=== PATIENT | male | born 1990 | race Caucasian/White ===

== ENCOUNTER 2024-04-04 16:30 | Emergency (ER) | payer BC, SELFPAY ==
[2024-04-04 16:33] VITALS: BP 102/61; PULSE 82; RESP 16; TEMP 36.7; O2SAT 97
--- NOTE | 2024-04-04 17:48 | ED.WOUNDLAC ---
HPI - Wound/Laceration General Chief Complaint: Wound/Laceration Stated Complaint: laceration right 2nd finger Time Seen by Provider: 04/04/24 16:57 Source: patient Mode of arrival: ambulatory Limitations: no limitations History of Present Illness HPI narrative: This is a 33-year-old male who presents to the ED for chief complaint of index finger laceration on the right hand. Reports that he was grabbing something in the work bench and thinks he may have grab the saw blade on accident. He does not think that his tetanus is up today. States it bled a lot at the time but bleeding has now resolved. Denies any further sites of pain or injury. Denies numbness, weakness or difficulty with range of motion. Related Data Allergies Allergy/AdvReac Type Severity Reaction Status Date / Time metronidazole Allergy Unknown UNKNOWN Verified 04/04/24 16:31 Review of Systems Review of Systems: All systems as dictated in [facility] Family History Family History (Updated 08/04/16 @ 11:41 by DOCTOR UNKNOWN) Mother Family history of schizophrenia Patient's mother is in good health Father Patient's father is in good health Sibling Patient's sister is in good health Patient's brother is in good health Social History Social History Smoking status: Never smoker Alcohol intake: current Exam Narrative: GENERAL: Well-appearing, well-nourished, and in no acute distress. HEAD: Normocephalic, atraumatic. EYES: PERRLA and EOMI. ENT: Nares clear, no rhinorrhea or epistaxis. Mucous membranes moist. Oropharynx without tonsillar hypertrophy exudate or other lesions. NECK: Supple. No adenopathy or masses. CHEST: No respiratory distress. Clear to auscultation. No wheezes rales or rhonchi HEART: Regular rate and rhythm. No murmur heard. Normal peripheral pulses. ABDOMEN: Soft, nontender, nondistended, normal active bowel sounds. MSK: Normal range of motion. No edema. SKIN: 1 cm laceration noted to the ventral aspect of the right index finger. Bleeding controlled. Deep structures intact. Range of motion intact. NEURO: Alert and oriented x4. No focal deficits. PSYCH: Normal mood and affect. Course Vital Signs Vital signs: Vital Signs Temperature 98.0 F 04/04/24 16:33 Pulse Rate 82 04/04/24 16:33 Respiratory Rate 16 04/04/24 16:33 Blood Pressure 102/61 04/04/24 16:33 Pulse Oximetry 97 04/04/24 16:33 Oxygen Delivery Room Air 04/04/24 16:33 Temperature 98.0 F 04/04/24 16:33 Pulse Rate 82 04/04/24 16:33 Respiratory Rate 16 04/04/24 16:33 Blood Pressure 102/61 04/04/24 16:33 Pulse Oximetry 97 04/04/24 16:33 Oxygen Delivery Room Air 04/04/24 16:33 Procedures Laceration Laceration 1: Date: 04/04/24 Time: 18:02 Site: hand Side (If applicable): right Size (cm): 1 Description: linear Depth: simple, single layer Local Anesthetic: none Pre-repair: wound explored, irrigated extensively and deep structures intact ====== Skin Level ====== Skin layer closed with: dermabond and steri strips ====== Subcutaneous Layer ====== ====== Muscle Layer ====== ====== Tendon Layer ====== MDM - Wound/Laceration MDM Narrative Medical decision making narrative: This is a 33-year-old male who presents to the ED for chief complaint of laceration injury to the right index finger. Vitals are normal. Exam shows well approximated, superficial 1 cm laceration to the right index finger. It was well cleansed and irrigated here in the department. Closed primarily with Steri-Strips and Dermabond. Tdap updated. Laceration instructions given. Pt will be discharged in stable condition. Return precautions given and supportive measures discussed. Pt is understanding and agreeable with plan for discharge and follow-up with PCP. Discharge Plan Discharge Clinical Impression: Laceration Patient Disposi
[2024-04-04] MEDS: TETANUS,DIPHTHERIA,AC PERTUSSIS ADULT (0.5 ML) BOOSTRIX IM (18:05)
== END 2024-04-04 18:15 | disposition home or self-care (01) ==
PROVIDERS: Emergency Provider Physician Assistant; PCP Student in an Organized Health Care Education/Training Program
DX: S61.210A Laceration without foreign body of right index finger without damage to nail, initial encounter (principal); Z23 Encounter for immunization; W27.0XXA Contact with workbench tool, initial encounter
CPT/HCPCS: 12001; 90471; 90715; 99282

== ENCOUNTER 2024-07-02 10:41 | Emergency (ER) | payer BC, SELFPAY ==
--- NOTE | ~2024-07-02 | XR_ITS ---
EXAMINATION: XR wrist LT min 3V DATE: 07/02/2024 12:52 INDICATION: Saw laceration to the posterior distal left forearm TECHNIQUE: Posteroanterior, oblique, and lateral views of the left wrist were obtained. COMPARISON: none FINDINGS: Alignment is normal. No fracture. Joint spaces are normal. Soft tissues are unremarkable. IMPRESSION: 1. No osseous abnormality. Reviewed, dictated and finalized at location A. NT SUCCESS MANAGER IMPRESSION: 1. No osseous abnormality.
[2024-07-02 10:48] VITALS: BP 134/73; PULSE 66; RESP 16; TEMP 36.6; O2SAT 99
--- NOTE | 2024-07-02 13:32 | ED_ITS ---
HPI - Wound/Laceration General Chief Complaint: Wound/Laceration Stated Complaint: laceration to left wrist Time Seen by Provider: 07/02/24 12:27 Source: patient Mode of arrival: ambulatory Limitations: no limitations History of Present Illness HPI narrative: Patient is a 33 y/o male who presents to the ED with c/o laceration to his L wrist. Patient reports he was using a miter saw to cut try wooden trim pieces when he accidentally cut his L dorsal distal forearm. Bleeding controlled at the time of my evaluation. denies any other injuries. Denies numbness. Is able to move hands and fingers. Tetanus up-to-date. Related Data Allergies Allergy/AdvReac Type Severity Reaction Status Date / Time metronidazole Allergy Unknown UNKNOWN Verified 07/02/24 10:41 Review of Systems Review of Systems: All systems reviewed & are unremarkable except as noted in HPI. All systems reviewed & are unremarkable except as noted in HPI and below PMFSH Family History Family History Mother Family history of schizophrenia Patient's mother is in good health Father Patient's father is in good health Sibling Patient's sister is in good health Patient's brother is in good health Social History Social History Smoking status: Never smoker Alcohol intake: current Exam Narrative: GENERAL: Well appearing, obese with BMI of 30.4, non-toxic, in no acute dis tress. HEAD: Normocephalic, atraumatic. RESPIRATORY: Airway patent, respirations nonlabored. CARDIOVASCULAR: Regular rate and rhythm without murmurs, rubs, or gallops. Radial pulses intact. MUSCULOSKELETAL: Moves all extremities. No gross deformities. Full ROM of L wrist/fingers. Sensation intact. Capillary refill intact throughout fingers. 2.5cm linear laceration of dorsal distal forearm, edges are somewhat jagged but approximate well. Minimal active bleeding. No obvious tendon or ligament involvement or injury. SKIN: Warm, dry, normal color. NEURO: A&O X3. Speech clear. PSYCHIATRIC: Appropriate mood and affect. Normal interaction. Course Vital Signs Vital signs: Vital Signs Temperature 97.8 F 07/02/24 10:48 Pulse Rate 66 07/02/24 10:48 Respiratory Rate 16 07/02/24 10:48 Blood Pressure 134/73 07/02/24 10:48 Pulse Oximetry 99 07/02/24 10:48 Oxygen Delivery Room Air 07/02/24 10:48 Temperature 97.8 F 07/02/24 10:48 Pulse Rate 86 07/02/24 13:45 Respiratory Rate 15 07/02/24 13:45 Blood Pressure 129/78 07/02/24 13:45 Pulse Oximetry 98 07/02/24 13:45 Oxygen Delivery Room Air 07/02/24 10:48 Procedures Laceration Laceration 1: Date: 07/02/24 Time: 13:20 Site: upper extremity (wrist) Side (If applicable): left Size (cm): 2.5 Description: linear Depth: simple, single layer Local Anesthetic: lidocaine 1% Amount of anesthesia used (mL): 6 Pre-repair: wound explored and irrigated ====== Skin Level ====== Skin layer closed with: nylon Size (cm): 4-0 Number of sutures: 5 Technique: simple, interrupted ====== Subcutaneous Layer ====== ====== Muscle Layer ====== ====== Tendon Layer ====== MDM - Wound/Laceration MDM Narrative Medical decision making narrative: X-ray without evidence of foreign body. Laceration irrigated and repaired without complications. Tetanus up-to-date. Patient given wound care instructions and reasons to return. Discharged in stable condition. Medical Records Attestation: I reviewed the patient's medical records. Imaging Data Attestation: I personally reviewed and interpreted this imaging study as follows: Radiologist's impression: ITS Impressions Wrist X-Ray 07/02/24 12:57 IMPRESSION: 1. No osseous abnormality. Discharge Plan Discharge Clinical Impression: Laceration of left wrist Qualifiers: Encounter type: initial encounter Qualified Code(s): S61.512A - Laceration without foreign body of left wrist, initial encounter Patient Disposition: Home, Self-Care Condition: Stable Instructions: Antibiotic Form, Care For Your Stitches (ED), Laceration (ED) Additional Instructions: Return to the ED or visit an urgent care or your PCP for follow-up and wound check/suture removal in 10 to 14 days. Keep the wound dry for 24 hours. You may remove the bandage after 24 hours and wash with simple soap and water, but do not scrub. Return to the ED if you experience uncontrolled bleeding, fever, chills, pus-like drainage, or redness/swelling/warmth surrounding the wound, as these could be signs of an infection. Patient Language: Azerbaijani Follow-up/Referrals: Izabella,DO Lanre [Primary Care Provider] - Time of Disposition: 13:33
[2024-07-02 13:45] VITALS: BP 129/78; PULSE 86; RESP 15; O2SAT 98
--- OUTSIDE RECORDS SUMMARY | 2024-07-09 05:16 | XMS_ITS | Encounter Summary ---
Author Organization [facility] Address [address] [place] [address]. [place], [place] [id number] [place] [id number] Care Team Providers Care Weight Reduction Specialist Name Role Phone Lanre Parekh DO Primary Care Provider + Encounter Details Date Type Department Care Team (Latest Contact Info) Description 07/01/2024 Travel Social History Tobacco Use Types Packs/Day Years Used Date Smoking Tobacco: Never Passive Smoke Exposure: Never Smokeless Tobacco: Never Alcohol Use Standard Drinks/Week Comments Yes 11.7 (1 standard drink = 0.6 oz pure alcohol) glass of wine nightly AUDIT-C Answer Date Recorded Frequency of Alcohol Consumption Monthly or less 07/05/2018 Average Number of Drinks Not on file 019 Frequency of Binge Drinking Not on file 09/2018 PHQ-2 Answer Date Recorded Patient Health Questionnaire-2 Score 2 09/26/2023 Sex and Gender Information Value Date Recorded Sex Assigned at Male 07/01/2024 9:54 AM HEALTHCARE ADMINISTRATOR Legal Sex Male 8:28 AM HEALTHCARE ADMINISTRATOR Gender Identity Male 07/01/2024 9:54 AM HEALTHCARE ADMINISTRATOR Sexual Orientation Not on file documented as of this encounter Plan of Treatment Not on file documented as of this encounter Visit Diagnoses Not on filedocumented in this encounter Additional Health Concerns Infection Onset Date Last Indicated Resolved Time COVID-19 Rule Out 07/01/2024 07/01/2024 07/01/2024 10:33 AM HEALTHCARE ADMINISTRATOR COVID-19 Rule Out 07/01/2024 07/01/2024 07/02/2024 4:06 PM HEALTHCARE ADMINISTRATOR Assessment Noted Time PHQ-9 Depression Total Score: 1 01/26/20 21 11:17 AM CDT documented as of this encounter Care Teams Weight Reduction Specialist Relationship Specialty Start Date End Date Lanre Parekh DO [address] [place] [id number] PCP - General FAMILY PRACTICE 09/07/22 documented as of this encounter
--- OUTSIDE RECORDS SUMMARY | 2024-07-09 05:16 | XMS_ITS | Encounter Summary ---
Author Organization [facility] Address [address] [place] [address]. 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 Name Role Phone Lanre Parekh DO Primary Care Provider + Reason for Visit * Reason Comments Physical Encounter Details Date Type Department Care Team (Late st Contact Info) Description 06/16/2024 2:00 PM ORDER BOOKER Office Visit [facility] Family [facility] Internal Medicine [facility] [address] [place] [address] Lanre Parekh DO [facility] [place] [address] Physical Social History Tobacco Use Types Packs/Day Years [...] Sex Assigned at Male 07/01/2024 9:54 AM ORDER BOOKER Legal Sex Male 8:28 AM ORDER BOOKER Gender Identity Male 07/01/2024 9:54 AM ORDER BOOKER Sexual Orientation Not on file documented as of this encounter Last Filed Vital Signs Vital Sign Reading Time Taken Comments Blood Pressure 122/78 06/16/2024 2:10 PM ORDER BOOKER Pulse 81 06/16/2024 2:10 PM ORDER BOOKER Temperature 37.2 ??C (98.9 ??F) 06/16/2024 2:10 PM CS T Respiratory Rate 18 06/16/2024 2:10 PM ORDER BOOKER Oxygen Saturation 98% 06/16/2024 2:10 PM ORDER BOOKER Inhaled Oxygen Concentration - - Weight 89.2 kg (196 lb 11.2 oz) 06/16/2024 2:10 PM ORDER BOOKER Height 172.7 cm (5' 8 ) 06/16/2024 2:10 PM ORDER BOOKER Body Mass Index 29.91 06/16/2024 2:10 PM ORDER BOOKER documented in this encounter Progress Notes * Lanre Soni Parekh, DO - 06/16/2024 2:00 PM CST Images from the original note were not included. GENERAL OFFICE VISIT Encounter Date: 06/16/2024 Chief Complaint: 33-year-old male presents for Physical HPI: The patient is being seen for a health maintenance evaluation. General Health: good Dental Health: Sees dentist regularly Vision Health: Wears glasses and Last eye exam < 1 year ago Hearing Health: No hearing problems Immunizations Needed: Influenza and COVID, defers both Weight: Overweight Body mass index is 29.91 kg/m??. Physical Activity: Excersises regularly Prostate Cancer Screening: No family history of prostate cancer Testicular Cancer Screening: Counseled Colorectal Cancer Screening: Sees GI for Crohn's Metabolic Screening: Patient has not been screened previously within the past year. HCV Screening: Patient had negative testing PHQ-9 Screening Score: 2 Smoking Status: History Smoking Status Never Smokeless Tobacco Never Patient does not meet criteria for Low Dose CT screening Sleep Apnea Risk Factors: Pt is using a CPAP for his JALYN. He wanted to try an oral device, but his insurance would not cover. He is using as prescribed. Pt will likely have a hernia repair this coming July for intermittent pain, possibly with a Dr. Lynch. Pt is noting some issues with sleep. He is ruminating on subjects frequently. He will sometimes only sleep 3-4 hours a night. He is noting anxiety issues on a daily basis as well. Pt has reached out to a counselor. Review of Systems Constitutional: Negative for fever. Respiratory: Negative for cough. Cardiovascular: Negative for chest pain. Gastrointestinal: See HPI Genitourinary: Negative for dysuria. Musculoskeletal: Negative for myalgias. Skin: Negative for rash. Psychiatric/Behavioral: See HPI Patient Active Problem List Diagnosis Arthritis Crohn's disease ([facility]) Crohn's disease of both small and large intestine ([facility]) Generalized abdominal pain Diarrhea due to malabsorption ([facility]) History of high risk medication treatment Iritis Osteoporosis Chronic pharyngitis JALYN (obstructive sleep apnea) Past Medical History: Diagnosis Date Crohn's disease of both small and large intestine ([facility]) 01/25/2017 Overview: Onset: 2004. Phenotype and distribution: Stricturing Primarily involving the ileum with some concern for fistulizing disease though no evidence of fistula penetrating colon lumen during surgery in 2018 Medical therapies: Previously treated with prednisone for at least 2 continuous years, flagyl, Asacol, Azathioprine (6325-0269), Remicade ([id number], switched for insurance purposes), Hu Iritis Osteoporosis 12/07/2017 Last Assessment & Plan: Please follow Dr. Mckeon's instructions regarding calcium supplementation (notation for 24hr urine calcium provided to patient). Likely on too much calcium supplementation between his multivitamin and calcium supplements.This can contribute to kidney stones especially in the context of ileal Crohn's disease. Past Surgical History: Procedure Laterality Date HC COLON RESECTION 12/2017 Likely ilioresection VASECTOMY Family History Problem Relation Name Age of Onset Hypertension Mother Psychiatry Mother Hypertension Father Cancer Paternal Grandfather Social History Socioeconomic History Marital status: Spouse name: Not on file Number of children: Not on file Years of education: Not on file Highest education level: Not on file Occupational History Not on file Tobacco Use Smoking status: Never Passive exposure: Never Smokeless tobacco: Never Vaping Use Vaping status: Never Used Substance and Sexual Activity Alcohol use: Yes Alcohol/week: 11.7 standard drinks of alcohol Types: 7 Glasses of wine per week Comment: glass of wine nightly Drug use: Not Currently Sexual activity: Yes Other Topics Concern Not on file Social History Narrative Not on file Social Drivers of Health Financial Resource Strain: Low Risk (11/03/2022) Received from [facility], [facility] Overall Financial Resource Strain (CARDIA) Difficulty of Paying Living Expenses: Not hard at all Food Insecurity: No Food Insecurity (11/03/2022) Received from [facility], [facility] Hunger Vital Sign Worried About Running Out of Food in the Last Year: Never true Ran Out of Food in the Last Year: Never true Transportation Needs: No Transportation Needs (11/03/2022) Received from [facility], [facility] PRAPARE - Transportation Lack of Transportation (Medical): No Lack of Transportation (Non-Medical): No Physical Activity: Not on file Stress: Not on file Social Connections: Moderately Integrated (11/03/2022) Received from [facility], [facility] Social Connection and Isolation Panel [NHANES] Frequency of Communication with Friends and Family: More than three times a week Frequency of Social Gatherings with Friends and Family: Three times a week Attends Yazidi Services: 1 to 4 times per year Active Member of Clubs or Organizations: No Attends Club or Organization Meetings: Never Marital Status: Intimate Partner Violence: Not on file Housing Stability: Low Risk (11/03/2022) Received from [facility], [facility] Housing Stability Vital Sign Unable to Pay for Housing in the Last Year: No Number of Places Lived in the Last Year: 1 Unstable Housing in the Last Year: No Immunization History Administered Date(s) Administered Dtap (Generic) 05/10/1990 PFIZER COVID-19 (ORIGINAL FORMULATION, PURPLE CAP) mRNA, LNP-S, PF, 30 MCG/0.3 ML DOSE 10/04/2020, 10/28/2020 Pneumococcal (Pneumovax 23) 05/17/2017, 10/26/2022 Pneumococcal (Prevnar 13) 01/25/2017 Tdap (Generic) 02/09/2014, 04/04/2024 Current Outpatient Medications Medication Sig Dispense Refill allopurinol (ZYLOPRIM) 100 MG tablet Take 1 tablet (100 mg total) by mouth daily. balsalazide 750 MG capsule TAKE 2 CAPS ONE DAILY colestipol 1 g tablet Take 1 tablet (1 g total) by mouth. folic acid (FOLVITE) 1 MG tablet Take 1 tablet (1 mg total) by mouth daily. 90 tablet 3 HUMIRA PEN 40 MG/0.8ML injection Inject 0.8 mLs (40 mg total) into the skin every 14 (fourteen) days. hydrOXYzine (ATARAX) 25 MG tablet Take 1-2 tablets (25-50 mg total) by mouth 3 (three) times daily as needed for Anxiety. Can cause drowsiness. 30 tablet 2 mercaptopurine 50 MG tablet Take 1 tablet (50 mg total) by mouth daily. Multiple Vitamins-Minerals (MULTIVITAMIN ADULT OR) sildenafil (VIAGRA) 100 MG tablet Take 1/2 or 1 tablet ONE hour prior to activity on an empty stomach daily PRN vitamin D3, cholecalciferol, 25 MCG (1000 UT) capsule Take 5 capsules (5,000 Units total) by mouth daily. No current facility-administered medications for this visit. Current Outpatient Medications on File Prior to Visit Medication Sig allopurinol (ZYLOPRIM) 100 MG tablet Take 1 tablet (100 mg total) by mouth daily. balsalazide 750 MG capsule TAKE 2 CAPS ONE DAILY colestipol 1 g tablet Take 1 tablet (1 g total) by mouth. HUMIRA PEN 40 MG/0.8ML injection Inject 0.8 mLs (40 mg total) into the skin every 14 (fourteen) days. mercaptopurine 50 MG tablet Take 1 tablet (50 mg total) by mouth daily. Multiple Vitamins-Minerals (MULTIVITAMIN ADULT OR) sildenafil (VIAGRA) 100 MG tablet Take 1/2 or 1 tablet ONE hour prior to activity on an empty stomach daily PRN vitamin D3, cholecalciferol, 25 MCG (1000 UT) capsule Take 5 capsules (5,000 Units total) by mouth daily. No current facility-administered medications on file prior to visit. Review of patient's allergies indicates: Allergen Reactions Metronidazole Other (see comment) Neuropathy Objective: Filed Vitals: 06/16/24 1410 BP: 122/78 Pulse: 81 Resp: 18 Temp: 98.9 ??F (37.2 ??C) TempSrc: Skin SpO2: 98% Weight: 89.2 kg (196 lb 11.2 oz) Height: 1.727 m (5' 8 ) Physical Exam Vitals and nursing note reviewed. HENT: Head: Normocephalic and atraumatic. Right Ear: Tympanic membrane, ear canal and external ear normal. Left Ear: Tympanic membrane, ear canal and external ear normal. Mouth/Throat: Pharynx: No oropharyngeal exudate. Eyes: General: No scleral icterus. Conjunctiva/sclera: Conjunctivae normal. Cardiovascular: Rate and Rhythm: Normal rate and regular rhythm. Heart sounds: Normal heart sounds. No murmur heard. No friction rub. No gallop. Pulmonary: Effort: Pulmonary effort is normal. No respiratory distress. Breath sounds: Normal breath sounds. No wheezing or rales. Abdominal: Palpations: Abdomen is soft. Tenderness: There is no abdominal tenderness. Musculoskeletal: Cervical back: Neck supple. Lymphadenopathy: Cervical: No cervical adenopathy. Skin: General: Skin is warm and dry. Findings: No rash. Neurological: Mental Status: He is alert and oriented to person, place, and time. Psychiatric: Mood and Affect: Mood and affect normal. Assessment & Plan: Nic GARDNER was seen today for physical. Diagnoses and all orders for this visit: Encounter for preventative adult health care examination - LIPID PANEL; Future - URIC ACID BLOOD; Future - VITAMIN D, 25 OH ([facility] ONLY); Future - TSH W/REFLEX; Future - LIPID PANEL - URIC ACID BLOOD - VITAMIN D, 25 OH ([facility] ONLY) - TSH W/REFLEX Anxiety - Discontinue: hydrOXYzine (ATARAX) 25 MG tablet; Take 1-2 tablets (25-50 mg total) by mouth 3 (three) times daily as needed for Anxiety. Can cause drowsiness. - hydrOXYzine (ATARAX) 25 MG tablet; Take 1-2 tablets (25-50 mg total) by mouth 3 (three) times daily as needed for Anxiety. Can cause drowsiness. Vitamin D deficiency - LIPID PANEL; Future - URIC ACID BLOOD; Future - VITAMIN D, 25 OH ([facility] ONLY); Future - TSH W/REFLEX; Future - LIPID PANEL - URIC ACID BLOOD - VITAMIN D, 25 OH ([facility] ONLY) - TSH W/REFLEX Screening for lipid disorders - LIPID PANEL; Future - URIC ACID BLOOD; Future - VITAMIN D, 25 OH ([facility] ONLY); Future - TSH W/REFLEX; Future - LIPID PANEL - URIC ACID BLOOD - VITAMIN D, 25 OH ([facility] ONLY) - TSH W/REFLEX Screening for endocrine, metabolic and immunity disorder - LIPID PANEL; Future - URIC ACID BLOOD; Future - VITAMIN D, 25 OH ([facility] ONLY); Future - TSH W/REFLEX; Future - LIPID PANEL - URIC ACID BLOOD - VITAMIN D, 25 OH ([facility]) - TSH W/REFLEX Crohn's disease without complication, unspecified gastrointestinal tract location ([facility]) - folic acid (FOLVITE) 1 MG tablet; Take 1 tablet (1 mg total) by mouth daily. BMI 29.0-29.9,adult Discussion/Summary: Portions of exam were done for both preventive and acute/chronic management. For preventive management, expected and preventive management discussed, including diet recommendations, exercise guidelines, screening tests, screening labs, and immunization schedule. Will order screening labs as per above. Patient will defer Influenza and COVID vaccines today. Continue f/u with GI. For acute management, will send out hydroxyzine as pt would prefer to not be on an agent daily; discussed side effect profile. Given handout for counseling. If results of above testing are within acceptable limits, willhave patient follow-up in 1 year or sooner if needed. Patient verbalized understanding. Lanre Parekh DO R BOOKER documented in this encounter Plan of Treatment Not on file documented as of this encounter Procedures Procedure Name Priority Date/Time Associated Diagnosis Comments TSH W/REFLEX Routine 06/26/2024 7:52 AM ORDER BOOKER Vitamin D deficiency Encounter for preventative adult health care examination Screening for lipid disorders Screening for endocrine, metabolic and immunity disorder VITAMIN D, 25 OH TOTAL Routine 06/26/2024 7:52 AM ORDER BOOKER Vitamin D deficiency Encounter for preventative adult health care examination Screening for lipid disorders Screening for endocrine, metabolic and immunity disorder LIPID PANEL Routine 06/26/2024 7:52 AM ORDER BOOKER Vitamin D deficiency Encounter for preventative adult health care examination Screening for lipid disorders Screening for endocrine, metabolic and immunity disorder URIC ACID BLOOD Routine 06/26/2024 7:52 AM ORDER BOOKER Vitamin D deficiency Encounter for preventative adult health care examination Screening for lipid disorders Screening for endocrine, metabolic and immunity disorder documented in this encounter Results * TSH W/REFLEX (06/26/2024 7:52 AM ORDER BOOKER) TSH 0.98 0.40 - 4.50 mIU/L [place], [place] 06/26/2024 7:52 AM ORDER BOOKER 06/26/2024 7:53 AM ORDER BOOKER Narrative Resulting Agency Comment Performing Organization Information: ?Site ID: SL ?Name: [facility] ?Address: [facility] [address] ?Director: Hien Leavitt us Lanre Parekh DO LABORATORY Final Re sult [facility] - [place] ORDERS [address] [address], * VITAMIN D, 25 OH ([facility] ONLY) (06/26/2024 7:52 AM ORDER BOOKER) [facility] VITAMIN D 25 HYDROXY TOTAL S/P/B 30 30 - 100 ng/mL [facility] Comment: Vitamin D Status ? 25-OH Vitamin D: Deficiency: ?<20 ng/mL Insufficiency: ? 20 - 29 ng/mL Optimal: ? > or = 30 ng/mL For 25-OH Vitamin D testing on patients on D2-supplementation and patients for whom quantitation of D2 and D3 fractions is required, the QuestAssureD(TM) 25-OH VIT D, (D2,D3), LC/MS/MS is recommended: order code 21573 (patients >2yrs). See Note 1 Note 1 For additional information, please refer to http://education.SmartCrowdz/faq/HAC014 (This link is being provided for informational/ educational purposes only.) 06/26/2024 7:52 AM ORDER BOOKER 06/26/2024 7:53 AM ORDER BOOKER Narrative Resulting Agency Comment Performing Organization Information: ?Site ID: ROMEO ?Name: [facility] ?Address: [address] [place] [address] ?Director: Hien Leavitt MD Lanre Parekh DO LABORATORY Final Re sult Performing Organization Address [facility] Co de Phone Number [facility] - [facility] [address] [place] [address], * URIC ACID BLOOD (06/26/2024 7:52 AM ORDER BOOKER) URIC ACID 6.7 4.0 - 8.0 mg/dL [place], [place] Comment: Therapeutic target for gout patients: <6.0 mg/dL ?? 06/26/2024 7:52 AM ORDER BOOKER 06/26/2024 7:53 AM ORDER BOOKER Narrative Resulting Agency Comment Performing Organization Information: ?Site ID: ?Name: [facility] ?Address: [address] [place] [id number] ?Director: Hien Leavitt Lanre Parekh DO LABORATORY Final Re sult Performing Organization Address [facility] Co de Phone Number [facility] [place] [facility] [address] [address] * (ABNORMAL) LIPID PANEL (06/26/2024 7:52 AM ORDER BOOKER) CHOLESTEROL 120 <200 mg/dL [facility] [place] HDL 34(L) > OR = 40 mg/dL [facility] [place] TRIGLYCERIDES 72 <150 mg/dL [facility] [place] LDL (CALCULATED) 71 mg/dL (calc) [facility] [place] Comment: Reference range: <100 Desirable range <100 mg/dL for primary prevention; ?? <70 mg/dL for patients with CHD or diabetic patients with > or = 2 CHD risk factors. LDL-C is now calculated using the Edilberto-Bajwa calculation, which is a validated novel method providing better accuracy than the Friedewald equation in the estimation of LDL-C. Edilberto SS et al. JOSE ALBERTO. 2013;310(19): 5277-7057 (http://education.SmartCrowdz/faq/BYS960) CHOL/HDL RATIO 3.5 <5.0 (calc) [facility] [place] NON HDL CHOLESTEROL 86 <130 mg/dL (calc) [facility] [place] Comment: For patients with diabetes plus 1 major ASCVD risk factor, treating to a non-HDL-C goal of <100 mg/dL (LDL-C of <70 mg/dL) is considered a therapeutic option. 06/26/2024 7:52 AM ORDER BOOKER 06/26/2024 7:53 AM ORDER BOOKER Narrative Resulting Agency Comment Performing Organization Information: ?Site ID: SL ?Name: [facility] ?Address: [address] [place] [phone] ?Director: Hien Leavitt us Lanre Parekh DO LABORATORY Final Re sult [facility] - [place] [facility] [address] [address], documented in this encounter Visit Diagnoses Diagnosis Encounter for preventative adult health care examination- Primary Anxiety Anxiety state, unspecified Vitamin D deficiency Unspecified vitamin D deficiency Screening for lipid disorders Screening for endocrine, metabolic and immunity disorder Crohn's disease without complication, unspecified gastrointestinal tract location ([facility]) BMI 29.0-29.9,adult Body Mass Index 29.0-29.9, adult documented in this encounter Additional Health Concerns Assessment Noted Time PHQ-9 Depression Total Score: 1 01/26/20 21 11:17 AM CDT documented as of this encounter Care Teams Commercial Light Fixture Assembler Relationship Specialty Start Date End Date Lanre Parekh DO [address] [place] [id number] PCP - General FAMILY PRACTICE 09/07/22 documented as of this encounter
--- OUTSIDE RECORDS SUMMARY | 2024-07-09 05:16 | XMS_ITS | Encounter Summary ---
Author Organization [facility] Address [address] [place] [address]. [place], [place] [id number] [place] [address] Care Team Providers Care Medical Records Tech Name Role Phone Lanre Parekh DO Primary Care Provider + Reason for Visit * Reason Comments URI Congestion, fatigue and sore throat for 3 days. The patient states he is having hernia repair surgery on 07/07/2023 Encounter Details Date Type Department Care Team (Late st Contact Info) Description 07/01/2024 9:40 AM ASSISTANT REFINERY OPERATOR Office Visit [facility] Family & Internal Medicine [address] [phone] Lanre Parekh DO [address] [place] [address] [phone] URI (Congestion, fatigue and sore throat for 3 days. The patient states he is having hernia repair surgery on 07/07/2023 ) Social History Tobacco Use Types Packs/Day Years [...] Sex Assigned at Male 07/01/2024 9:54 AM ASSISTANT REFINERY OPERATOR Legal Sex Male 8:28 AM ASSISTANT REFINERY OPERATOR Gender Identity Male 07/01/2024 9:54 AM ASSISTANT REFINERY OPERATOR Sexual Orientation Not on file documented as of this encounter Last Filed Vital Signs Vital Sign Reading Time Taken Comments Blood Pressure 126/86 07/01/2024 9:55 AM ASSISTANT REFINERY OPERATOR Pulse 86 07/01/2024 9:55 AM ASSISTANT REFINERY OPERATOR Temperature 36.6 ??C (97.8 ??F) 07/01/2024 9:55 AM CS T Respiratory Rate 16 07/01/2024 9:55 AM ASSISTANT REFINERY OPERATOR Oxygen Saturation 98% 07/01/2024 9:55 AM ASSISTANT REFINERY OPERATOR Inhaled Oxygen Concentration - - Weight 89.8 kg (198 lb) 07/01/2024 9:55 AM ASSISTANT REFINERY OPERATOR Height 172.7 cm (5' 8 ) 07/01/2024 9:55 AM ASSISTANT REFINERY OPERATOR Body Mass Index 30.11 07/01/2024 9:55 AM ASSISTANT REFINERY OPERATOR documented in this encounter Progress Notes * Lanre Parekh, DO - 07/01/2024 9:40 AM CST Images from the original note were not included. GENERAL OFFICE VISIT Encounter Date: 07/01/2024 Chief Complaint: 33-year-old male presents for URI (Congestion, fatigue and sore throat for 3 days. The patient states he is having hernia repair surgery on 07/07/2023 ) HPI: Patient states symptoms have been present for 3 days. Symptoms include congestion, fatigue, mild cough, and sore throat. Pertinent negatives include Fevers, Chills, Myalgias, and Rash. Patient has sick contacts. OTC medications tried include Sudafed and Claritin, both which help mildly. Review of Systems Constitutional: Negative for chills and fever. HENT: Positive for congestion. See HPI Musculoskeletal: Negative for myalgias. 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 Phenotype and distribution: Stricturing Primarily involving the ileum with some concern for fistulizing disease though no evidence of fistula penetrating colon lumen during surgery in 2018 Medical therapies: Previously treated with prednisone for at least 2 continuous years, flagyl, Asacol, Azathioprine (4096-1011), Remicade (1133-1769, switched for insurance purposes), Hu Iritis Osteoporosis [...] Hypertension Father Cancer Paternal Grandfather Social History Tobacco Use Smoking status: Never Passive exposure: Never Smokeless tobacco: Never Vaping Use Vaping status: Never Used Substance Use Topics Alcohol use: Yes Alcohol/week: 11.7 standard drinks of alcohol Types: 7 Glasses of wine per week Comment: glass of wine nightly Drug use: Not Currently Immunization History Administered Date(s) Administered Dtap (Generic) 05/10/1990 Trendyol COVID-19 (ORIGINAL FORMULATION, PURPLE CAP) mRNA, LNP-S, PF, 30 MCG/0.3 ML DOSE 10/04/2020, 10/28/2020 Pneumococcal (Pneumovax 23) 05/17/2017, 10/26/2022 Pneumococcal (Prevnar 13) 01/25/2017 Tdap (Generic) 02/09/2014, 04/04/2024 Current Outpatient Medications Medication Sig Dispense Refill allopurinol (ZYLOPRIM) 100 MG tablet Take 1 tablet (100 mg total) by mouth daily. azithromycin (ZITHROMAX) 250 MG tablet Take 2 tabs daily for one day, then take 1 tab daily 6 tablet 0 balsalazide 750 MG capsule TAKE 2 CAPS ONE DAILY colestipol 1 g tablet Take 1 tablet (1 g total) by mouth. folic acid (FOLVITE) 1 MG tablet Take 1 tablet (1 mg total) by mouth daily. 90 tablet 3 hydrOXYzine (ATARAX) 25 MG tablet Take 1-2 tablets (25-50 mg total) by mouth 3 (three) times daily as needed for Anxiety. Can cause drowsiness. 30 tablet 2 HYRIMOZ 40 MG/0.4ML Solution Auto-injector mercaptopurine 50 MG tablet Take 1 tablet (50 mg total) by mouth daily. Multiple Vitamins-Minerals (MULTIVITAMIN ADULT OR) sildenafil (VIAGRA) 100 MG tablet Take 1/2 or 1 tablet ONE hour prior to activity on an empty stomach daily PRN vitamin D3, cholecalciferol, 25 MCG (1000 UT) capsule Take 5 capsules (5,000 Units total) by mouth daily. No current facility-administered medications for this visit. Review of patient's allergies indicates: Allergen Reactions Metronidazole Other (see comment) Neuropathy Objective: Filed Vitals: 07/01/24 0955 BP: 126/86 Pulse: 86 Resp: 16 Temp: 97.8 ??F (36.6 ??C) TempSrc: Skin SpO2: 98% Weight: 89.8 kg (198 lb) Height: 1.727 m (5' 8 ) Physical [...] Normal breath sounds. No wheezing or rales. Musculoskeletal: Cervical back: Neck supple. Lymphadenopathy: Cervical: No cervical adenopathy. Skin: General: Skin is warm and dry. Findings: No rash. Neurological: General: No focal deficit present. Mental Status: He is alert. Psychiatric: Mood and Affect: Mood and affect normal. Office Visit on 07/01/2024 Component Date Value Ref Range Status CORONAVIRUS ANTIGEN IA 07/01/2024 NEGATIVE NEGATIVE Final INFLUENZA A 07/01/2024 NEGATIVE NEGATIVE Final INFLUENZA B 07/01/2024 NEGATIVE NEGATIVE Final Internal Control: 07/01/2024 VALID VALID Final RAPID STREP TEST 07/01/2024 NEGATIVE NEGATIVE Final Internal Control: 07/01/2024 VALID VALID Final Assessment & Plan: Nic KENDRA was seen today for uri. Diagnoses and all orders for this visit: Upper respiratory tract infection, unspecified type - azithromycin (ZITHROMAX) 250 MG tablet; Take 2 tabs daily for one day, then take 1 tab daily Acute cough - CORONAVIRUS (COVID-19) INFLUENZA A & B ANTIGEN IA PANEL - CORONAVIRUS (COVID 19) PCR; Future - CULTURE STREP A (MG/SJS/SMD Only); Future - STREP A RAPID Discussion/Summary: Suspect viral URI, but given upcoming surgery, will treat as per above; discussed side effect profile. Discussed conservative and expected management. Assuming pt does not clinically worsen, patient is still an acceptable medical risk for given surgery based upon assessment today. Call back if worsening or not improving as expected. F/u with regular appointments otherwise. Pt v/u. Lanre Parekh DO STANT REFINERY OPERATOR documented in this encounter Plan of Treatment Not on file documented as of this encounter Procedures Procedure Name Priority Date/Time Associated Diagnosis Comments CULTURE STREP A Routine 07/01/2024 10:33 AM ASSISTANT REFINERY OPERATOR Acute cough CORONAVIRUS (COVID 19) PCR Routine 07/01/2024 10:33 AM ASSISTANT REFINERY OPERATOR Acute cough CORONAVIRUS (COVID-19) INFLUENZA A & B ANTIGEN IA PANEL Routine 07/01/2024 Acute cough STREP A RAPID Routine 07/01/2024 Acute cough documented in this encounter Results * CULTURE STREP A (MG/SJS/SMD Only) (07/01/2024 10:33 AM ASSISTANT REFINERY OPERATOR) THROAT CULTURE STREP A ONLY Negative for Group A Streptococci Negative for Group A Streptococci 07/02/2024 2:51 PM ASSISTANT REFINERY OPERATOR -[facility] JEANNINE CRESTON STRUCTURE OF ANTERIOR PORTION OF NECK / Unknown 07/01/2024 10:33 AM ASSISTANT REFINERY OPERATOR us Lanre Parekh DO MICROBIOLOGY - GENERAL O RDERABLES Final Result [facility] JEANNINE CRESTON [address] [facility] [address], * CORONAVIRUS (COVID 19) PCR (07/01/2024 10:33 AM ASSISTANT REFINERY OPERATOR) SPEC DESCRIPTION NASAL 07/01/20 2:01 PM ASSISTANT REFINERY OPERATOR [facility] CORONAVIRUS SARS COV 2 PCR (RESP) NEGATIVE NEGATIVE 07/02/2024 4:06 PM ASSISTANT REFINERY OPERATOR [facility] Comment: THE SARS-CoV-2 TEST HAS BEEN AUTHORIZED BY THE FDA UNDER AN EUA FOR USE BY AUTHORIZED LABORATORIES. PERFORMED BY NUCLEIC ACID AMPLIFICATION PCR NASAL STRUCTURE / Unknown 07/01/2024 10:33 AM ASSISTANT REFINERY OPERATOR Lanre Parekh DO MICROBIOLOGY - GENERAL O RDERABLES Final Result Performing Organization Address [facility]/ZIP Co de Phone Number [facility] [address] [place] [address], * STREP A RAPID (07/01/2024) [facility] RAPID STREP TEST NEGATIVE NEGATIVE [facility] Internal Control: VALID VALID [facility] STRUCTURE OF ANTERIOR PORTION OF NECK / Unknown 07/01/2024 Lanre Parekh DO MICROBIOLOGY GENERAL O RDERABLES Final Result Performing Organization Address City/[facility]/ZIP Co de Phone Number [facility] [address] [place] [address], [place] * CORONAVIRUS (COVID-19) INFLUENZA A & B ANTIGEN IA PANEL (07/01/2024) [facility] CORONAVIRUS ANTIGEN IA NEGATIVE NEGATIVE [facility] INFLUENZA A NEGATIVE NEGATIVE [facility] INFLUENZA B NEGATIVE NEGATIVE [facility] Internal Control: VALID VALID [facility] NASAL STRUCTURE / Unknown 07/01/2024 us Lanre Parekh DO MICROBIOLOGY - GENERAL O RDERABLES Final Result -[address] [address], documented in this encounter Visit Diagnoses Diagnosis Upper respiratory tract infection, unspecified type- Primary Acute cough documented in this encounter Additional Health Concerns Infection Onset Date Last Indicated Resolved Time COVID-19 Rule Out 07/01/2024 07/01/2024 07/01/2024 10:33 AM ASSISTANT REFINERY OPERATOR COVID-19 Rule Out 07/01/2024 07/01/2024 07/02/2024 4:06 PM ASSISTANT REFINERY OPERATOR Assessment Noted Time PHQ-9 Depression Total Score: 1 01/26/20 21 11:17 AM CDT documented as of this encounter Care Teams Medical Records Tech Relationship Specialty Start Date End Date Lanre Parekh DO [address] [place] [id number] PCP - General FAMILY PRACTICE 09/07/22 documented as of this encounter
--- OUTSIDE RECORDS SUMMARY | 2024-07-09 05:16 | XMS_ITS | Continuity of Care Document ---
Author Organization [facility] Address [address] [facility] [place] [id number] Care Team Providers Care Loom Mechanic Name Role Phone Luchtefeld, DO Lanre Primary Care Provider VINNY Reyes Emergency Provider Care Teams Patient Care Team Team Status: Active Member Role Status Dates Lanre Lucisaiahefgarrett , DO Primary Care Provider Mert ennis Patient Care Team Team Status: Inactive Member Role Status Dates Lanre Parekh , DO Primary Care Provider Activ raymon Reyes PA-C Emergency Provider Active Chief Complaint and Reason for Visit Chief Complaint laceration right 2nd finger Allergies, Adverse Reactions, Alerts Allergen Type Severity Reaction Last Updated Verified Status metronidazole Allergy Unknown UNKNOWN April 04, 2024 4:31pm Y es Active Social History Smoking Status Status Start Date End Date Date of Observa tion Never smoked tobacco (finding) October 03, 2016 9:20am Observation Status Observation Response Date of Response alcohol intake current October 03, 2016 9:19am Additional Data Assigned Sex Male Family History Relationship Condition Age at Onset Recorded Date/T [place] mother Family history of schizophrenia Unknown Patient's mother is in good health Unknow n father Patient's father is in good health Unknow n sibling Patient's sister is in good health Unknow n Patient's brother is in good health Unkno wn Problems Active Problems Medical Problem Onset Date Status Laceration Active Immunizations Immunization Event Date Not Given Reason Dose Number Roving Changer Lot Number Vaccine Information Statement (VIS) Detail Tetanus, Diphtheria, Pertussis (Tdap) April 04, 2024 [id number] Vital Signs Vital Reading Result Reference Range Collection Date/Time Height 68 [in_i] April 04 4:33pm Weight 88.00 kg April 04 4:33pm Body Temperature 98.0 [degF] 97.6-99.6 April 4:33pm Heart Rate 82 /min 60-100 April 04 4:33pm Respiratory rate 16 /min -April 4:33pm Oxygen saturation by Pulse oximetry 97 % 90-100 April 04, 2024 4: 33pm BP Systolic 102 mm[Hg] 100-140 April 04 4:33pm BP Diastolic 61 mm[Hg] 60-90 April 04 4:33pm Insurance Providers Guarantor Nic Teran Address [address] [place] [phone] Contact Info. Home Phone: Payer Policy Id Coverage Id Subscriber's Name Subscriber Id Effective Date Expiration Date Gabe RICHMOND [id number] Nic Teran [id number] 2016 Encounters Encounter Location(s) Arrival/Admit Date Discharge/Depart Date Provider(s) [facility] April 04, 2024 4:30pm April 04, 2024 6:15pm null Plan of Treatment Future Tests Future scheduled test information is unavailable Pending Tests Pending diagnostic test information is unavailable Future Visits Future appointment information is unavailable Referrals to Other Providers Reason for Referral Referral Start Date Provider Provider Contact Information Provider Address Lanre Parekh , DO Work Phone: [facility] [address] Future Procedures Future procedure information is unavailable Future Medications Future medication information is unavailable Patient Instructions Antibiotic Form Skin Adhesive Care (ED) Steristrips (ED) Hospital Discharge Instructions Additional Instructions Exam today is reassuring overall. Please keep an eye on the area and watch out for any spreading redness, pus or swelling. If you see any of these things over the next couple of days please see your doctor or the ER for further evaluation. .
--- OUTSIDE RECORDS SUMMARY | 2024-07-09 05:16 | XMS_ITS | Encounter Summary ---
Author Organization [facility] Address [address] [place] [address]. [place], [place] [id number] [place] [address] Care Team Providers Care Recovery Agent Name Role Phone Lanre Parekh DO Primary Care Provider + Encounter Details Date Type Department Care Team (Latest Contact Info) Description 06/16/2024 Travel Social History Tobacco Use Types Packs/Day [...] Sex Assigned at Male 07/01/2024 9:54 AM GREASE PRESS HELPER Legal Sex Male 8:28 AM GREASE PRESS HELPER Gender Identity Male 07/01/2024 9:54 AM GREASE PRESS HELPER Sexual Orientation Not on file documented as of this encounter Plan of Treatment Not on file documented as of this encounter Visit Diagnoses Not on filedocumented in this encounter Additional Health Concerns Assessment Noted Time PHQ-9 Depression Total Score: 1 01/26/20 21 11:17 AM CDT documented as of this encounter Care Teams Recovery Agent Relationship Specialty Start Date End Date Lanre Parekh DO [address] [place] [id number] PCP - General FAMILY PRACTICE 09/07/22 documented as of this encounter
--- OUTSIDE RECORDS SUMMARY | 2024-07-09 05:16 | XMS_ITS | Clinical Summary ---
Author Organization [facility] Address [address] [place] [address]. [place] [address] [place] [address] Care Team Providers Care Industrial Sales Manager Name Role Phone EduinisaiahLanre portillo Soni HUMPHREY Primary Care Provider + Allergies Active Allergy Reactions Criticality Noted Date Comments Metronidazole Other (see comment) Low 11/21/2017 Neuropathy Medications balsalazide 750 MG capsule TAKE 2 CAPS ONE DAILY 017 Active vitamin D3, cholecalciferol, 25 MCG (1000 UT) capsule Take 5 capsules (5,000 Units total) by mouth daily. Active colestipol 1 g tablet Take 1 tablet (1 g total) by mouth. 018 Active mercaptopurine 50 MG tablet Take 1 tablet (50 mg total) by mouth daily. 019 Active Multiple Vitamins-Minerals (MULTIVITAMIN ADULT OR) Active sildenafil (VIAGRA) 100 MG tablet Take 1/2 or 1 tablet ONE hour prior to activity on an empty stomach daily PRN 022 Active allopurinol (ZYLOPRIM) 100 MG tablet Take 1 tablet (100 mg total) by mouth daily. 023 Active folic acid (FOLVITE) 1 MG tabletIndications:C rohn's disease without complication, unspecified gastrointestinal tract location (CMS/HCC HHS/HCC) Take 1 tablet (1 mg total) by mouth daily. 90 tablet 3 024 Active hydrOXYzine (ATARAX) 25 MG tabletIndications:A nxiety Take 1-2 tablets (25-50 mg total) by mouth 3 (three) times daily as needed for Anxiety. Can cause drowsiness. 30 tablet 2 024 Active HYRIMOZ 40 MG/0.4ML Solution Auto-injector Active azithromycin (ZITHROMAX) 250 MG tabletIndications:U pper respiratory tract infection, unspecified type Take 2 tabs daily for one day, then take 1 tab daily 6 tablet Active folic acid 1 MG tablet TK 1 T PO D UTD 3 018 2023 Discontinued(R eorder) HUMIRA PEN 40 MG/0.8ML injection Inject 0.8 mLs (40 mg total) into the skin every 14 (fourteen) days. 019 2023 Discontinued(F ormulary change) azithromycin (ZITHROMAX Z-GABRIEL) 250 MG tabletIndications:S ore throat,Strep throat,Tonsillitis Take 2 tablets by mouth on day one then 1 daily for four days. 6 tablet 2023 Discontinued(T herapy completed) cefdinir (OMNICEF) 300 MG Cap capsuleIndications: Pharyngitis, unspecified etiology,Occipital lymphadenopathy Take 1 capsule (300 mg total) by mouth 2 (two) times daily. 20 capsule 2023 Discontinued(T herapy completed) methylPREDNISolone, GABRIEL, (MEDROL DOSEPAK) 4 MG tabletIndications:P haryngitis, unspecified etiology,Occipital lymphadenopathy 6 TABLETS ON DAY ONE, 5 TABLETS DAY TWO, 4 TABLETS DAY THREE, 3 TABLETS DAY FOUR, 2 TABLETS DAY FIVE, AND 1 TABLET DAY SIX 1 each 2023 Discontinued(T herapy completed) hydrOXYzine (ATARAX) 25 MG tabletIndications:A nxiety Take 1-2 tablets (25-50 mg total) by mouth 3 (three) times daily as needed for Anxiety. Can cause drowsiness. 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 We would recommend the patient increase the Colestid 2 tablets in the morning and continue the 1 Imodium. 2. Patient is also encouraged to use the Levsin as needed. 3. He was educated on how he can escalate his Colestid and Imodium further if he develops worsening diarrhea Osteoporosis 12/07/2017 Overview (07/05/2018): Last Assessment & Plan: Please follow Dr. Mckeon's instructions regarding calcium supplementation (notation for 24hr urine calcium provided to patient). Likely on too much calcium supplementation between his multivitamin and calcium supplements.This can contribute to kidney stones especially in the context of ileal Crohn's disease. Iritis 12/04/2017 Crohn's disease of both smal l and large intestine ([facility]) 01/25/2017 Overview (07/05/2018): Overview: Onset: 2004. Phenotype and distribution: Stricturing Primarily involving the ileum with some concern for fistulizing disease though no evidence of fistula penetrating colon lumen during surgery in 2018 Medical therapies: Previously treated with prednisone for at least 2 continuous years, flagyl, Asacol, Azathioprine (6966-8720), Remicade (7300-2159, switched for insurance purposes), Humira (5523-5868, 6-month insurance interruption, re- initiation 10/2016, with dose escalated to weekly based on low levels and low antibodies), methotrexate add to Humira to reduce risk of antibody formation. IBD related surgeries: Ileocecectomy on 01/11/2018 with approximately 13 cm of terminal ileum removed and 8 cm of colon. Associated conditions: Iritis, osteoporosis, vitamin-D deficiency Last endoscopy: Colonoscopy on 06/22/2017 notable for friability in terminal ileum and benign-appearing stenosis in ileum. Concern for fistula to sigmoid but otherwise normal colon. Last cross-sectional imaging: Postoperative imaging consistent with moderate- sized hiatal hernia soft tissue stranding and enlarged lymph nodes mucosal enhancement and long segment of the terminal ileum and sigmoid favoring postoperative changes plus active Crohn's Vaccination status: Prevnar 01/25/2017, Pneumovax 05/17/2017, Tdap 02/09/2014 Last Assessment & Plan: 1. Patient had some mild anticipation of his recent Humira dose. We will therefore have him come back in next week to have this level checked. If the level is low we will shorten the interval to weekly. 2. Once we are certain the patient has appropriate Humira levels, we will consider a repeat MR enterography in late April or June depending on whether his Humira needs to be adjusted. 3. If there is evidence of inflammation, we will consider switching him back to azathioprine as this seems to have been discontinued not due to intolerance or allergy but more to reduce his risk of hepatic T-cell lymphoma. We also discussed possibility of switching to Stelara or even retrying Remicade with the understanding that he may have formed antibodies to Remicade over the years. 4. If there is no evidence of inflammation on the MR enterography, we would recommend that the patient have a postsurgical colonoscopy to assess his anastomosis in early 2018 History of high risk medication treatment 2016 Overview (07/05/2018): Overview: Adequate Humira levels with no antibodies once dose increased to weekly and MTX added Last Assessment & Plan: Continue routine laboratory monitoring Up to date with vaccinations. Pneumovax booster due 05/2022 Following with bone health for low bone mass Crohn's disease ([facility]) 01/06/2008 Overview (07/05/2018): Overview: Added automatically from request for surgery [id number] Encounters Date Type Department Care Team Description 07/01/2024 9:40 AM STATISTICAL CLERK ADVERTISING Office Visit [facility] [address] [phone] Lanre Parekh, DO URI (Congestion, fatigue and sore throat for 3 days. The patient states he is having hernia repair surgery on 07/07/2023 ) 07/01/2024 - 07/01/2024 11:59 PM STATISTICAL CLERK ADVERTISING Hospital Encounter [facility] [address] [place] [address] Lanre Parekh, DO Discharge Disposition: Home or Self Care (Routine Discharge) 07/01/2024 Travel 06/16/2024 2:00 PM STATISTICAL CLERK ADVERTISING Office Visit [facility] [address] [phone] Lanre Parekh P, DO Physical 06/16/2024 Travel from Last 3 Months Immunizations Name Administration Dates Next Due Dtap (Generic) 05/10/1990 PFIZER COVID-19 (ORIGINAL FO RMULATION, PURPLE CAP) mRNA, LNP-S, PF, 30 MCG/0.3 ML DOSE 10/28/2020,10/04/2020 Pneumococcal (Pneumovax 23) 10/26/2022, 7 Pneumococcal (Prevnar 13) 01/25/2017 Tdap (Generic) 04/04/2024,02/09/2014 Family History Medical History Relation Comments Hypertension Father Hypertension Mother Psychiatry Mother Cancer Paternal Grandfather Relation Status Comments Father Alive Mother (Age 64) Paternal Grandfather Social History Tobacco Use Types Packs/Day Years Used Date Smoking Tobacco: Never Passive Smoke Exposure: Never Smokeless Tobacco: Never Tobacco Cessation:Counseling Given: Not Answered Alcohol Use Standard Drinks/Week Comments Yes 11.7 [...] Sex Assigned at Male 07/01/2024 9:54 AM STATISTICAL CLERK ADVERTISING Legal Sex Male 8:28 AM STATISTICAL CLERK ADVERTISING Gender Identity Male 07/01/2024 9:54 AM STATISTICAL CLERK ADVERTISING Sexual Orientation Not on file Last Filed Vital Signs Vital Sign Reading Time Taken Comments Blood Pressure 126/86 07/01/2024 9:55 AM STATISTICAL CLERK ADVERTISING Pulse 86 07/01/2024 9:55 AM STATISTICAL CLERK ADVERTISING Temperature 36.6 ??C (97.8 ??F) 07/01/2024 9:55 AM CS T Respiratory Rate 16 07/01/2024 9:55 AM STATISTICAL CLERK ADVERTISING Oxygen Saturation 98% 07/01/2024 9:55 AM STATISTICAL CLERK ADVERTISING Inhaled Oxygen Concentration - - Weight 89.8 kg (198 lb) 07/01/2024 9:55 AM STATISTICAL CLERK ADVERTISING Height 172.7 cm (5' 8 ) 07/01/2024 9:55 AM STATISTICAL CLERK ADVERTISING Body Mass Index 30.11 07/01/2024 9:55 AM STATISTICAL CLERK ADVERTISING Plan of Treatment Health Maintenance Due Date Last Done Comments Hepatitis B Vaccines (1 of 3 - 19+ 3-dose series) 08/01/2024 Postponed from 08/2008 (Future Appointment) Influenza Adult (#1) 2024 Postpon ed from 04/01/2024 (Patient Refused) Annual Physical 06/16/2025 06/16/2024, 06/14/2023 COVID-19 Vaccine (3 - 2023-2 5 season) 2025 10/28/2020, 10/04/2020 Postponed from 03/02/2024 (Patient Refused) DTaP, Tdap and Td Vaccines ( 4 - Td or Tdap) 04/04/2034 04/04/2024, 02/09/2014, 05/10/1990 Pneumococcal Vaccine: Pediatrics (0 to 5 Years) and At-Risk Patients (6 to 64 Years) Aged Out 10/26/2022, 05/17/2017, 01/25/2017 No longer eligible based on patient's age to complete this topic Hepatitis C Completed 06/14/2023, 05/30/2023, 05/30/2023 HPV Vaccines Aged Out No longer eligi ble based on patient's age to complete this topic Meningococcal Vaccine Aged Out No raf kunal eligible based on patient's age to complete this topic RSV Immunizations Under 20 Months Aged Out No longer eligible b ased on patient's age to complete this topic Procedures Procedure Name Priority Date/Time Associated Diagnosis Comments CORONAVIRUS (COVID 19) PCR Routine 07/01/2024 10:33 AM STATISTICAL CLERK ADVERTISING Acute cough CULTURE STREP A Routine 07/01/2024 10:33 AM STATISTICAL CLERK ADVERTISING Acute cough STREP A RAPID Routine 07/01/2024 Acute cough CORONAVIRUS (COVID-19) INFLUENZA A & B ANTIGEN IA PANEL Routine 07/01/2024 Acute cough TSH W/REFLEX Routine 06/26/2024 7:52 AM STATISTICAL CLERK ADVERTISING Vitamin D deficiency Encounter for preventative adult health care examination Screening for lipid disorders Screening for endocrine, metabolic and immunity disorder VITAMIN D, 25 OH TOTAL Routine 06/26/2024 7:52 AM STATISTICAL CLERK ADVERTISING Vitamin D deficiency Encounter for preventative adult health care examination Screening for lipid disorders Screening for endocrine, metabolic and immunity disorder URIC ACID BLOOD Routine 06/26/2024 7:52 AM STATISTICAL CLERK ADVERTISING Vitamin D deficiency Encounter for preventative adult health care examination Screening for lipid disorders Screening for endocrine, metabolic and immunity disorder LIPID PANEL Routine 06/26/2024 7:52 AM STATISTICAL CLERK ADVERTISING Vitamin D deficiency Encounter for preventative adult health care examination Screening for lipid disorders Screening for endocrine, metabolic and immunity disorder HEPATITIS C ANTIBODY Routine 06/14/2023 2:36 PM STATISTICAL CLERK ADVERTISING Need for hepatitis C screening test Screening for lipid disorders Annual physical exam from Last 3 Months or Most Recently Relevant to Health Maintenance Results * CULTURE STREP A (MG/SJS/SMD Only) (07/01/2024 10:33 AM STATISTICAL CLERK ADVERTISING) THROAT CULTURE STREP A ONLY Negative for Group A Streptococci Negative for Group A Streptococci 07/02/2024 2:51 PM STATISTICAL CLERK ADVERTISING [facility] STRUCTURE OF ANTERIOR PORTION OF NECK / Unknown 07/01/2024 10:33 AM STATISTICAL CLERK ADVERTISING Lanre Parekh DO MICROBIOLOGY - GENERAL O RDERABLES Final Result [facility] [address] [place] [address], [place] [phone] * CORONAVIRUS (COVID 19) PCR (07/01/2024 10:33 AM STATISTICAL CLERK ADVERTISING) SPEC DESCRIPTION NASAL 07/01/20 24 2:01 PM STATISTICAL CLERK ADVERTISING [facility] CORONAVIRUS SARS COV 2 PCR (RESP) NEGATIVE NEGATIVE 07/02/2024 4:06 PM STATISTICAL CLERK ADVERTISING [facility] Comment: THE SARS-CoV-2 TEST HAS BEEN AUTHORIZED BY THE FDA UNDER AN EUA FOR USE BY AUTHORIZED LABORATORIES. PERFORMED BY NUCLEIC ACID AMPLIFICATION PCR NASAL STRUCTURE / Unknown 07/01/2024 10:33 AM STATISTICAL CLERK ADVERTISING Lanre Soni Lucisaiahefgarrett DO MICROBIOLOGY - GENERAL O RDERABLES Final Result Performing Organization Address City/[facility] Co de Phone Number [facility] [address] [place] [address], [place] [phone] * CORONAVIRUS (COVID-19) INFLUENZA A & B ANTIGEN IA PANEL (07/01/2024) Pathologist [facility] CORONAVIRUS ANTIGEN IA NEGATIVE NEGATIVE [facility] INFLUENZA A NEGATIVE NEGATIVE [facility] INFLUENZA B NEGATIVE NEGATIVE [facility] Internal Control: VALID VALID [facility] NASAL STRUCTURE / Unknown 07/01/2024 Lanre P Izabella DO MICROBIOLOGY - GENERAL O RDERABLES Final Result Performing Organization Address [facility] Co de Phone Number [address] [address], [place] * STREP A RAPID (07/01/2024) Pathologist [facility] RAPID STREP TEST NEGATIVE NEGATIVE [facility] Internal Control: VALID VALID [facility] STRUCTURE OF ANTERIOR PORTION OF NECK / Unknown 07/01/2024 us Lanre P Lucisaiahefgarrett DO MICROBIOLOGY - GENERAL O RDERABLES Final Result Performing Organization Address City/[facility] Co de Phone Number [facility] [address] [place] [address], [place] * TSH W/REFLEX (06/26/2024 7:52 AM STATISTICAL CLERK ADVERTISING) Pathologist [facility] TSH 0.98 0.40 - 4.50 mIU/L [place] 06/26/2024 7:52 AM STATISTICAL CLERK ADVERTISING 06/26/2024 7:53 AM STATISTICAL CLERK ADVERTISING Narrative Resulting Agency Comment Performing Organization Information: ?Site ID: [id number] ?Name: [facility] ?Address: [address] [place] [address] ?Director: Hien Leavitt Lanre Parekh DO LABORATORY Final Re sult [facility] [place] [address] [place] [address], * VITAMIN D, 25 OH ([facility] ONLY) (06/26/2024 7:52 AM STATISTICAL CLERK ADVERTISING) VITAMIN D 25 HYDROXY TOTAL S/P/B 30 30 - 100 ng/mL [facility] Comment: Vitamin D Status ? 25-OH Vitamin D: Deficiency: ?<20 ng/mL Insufficiency: ? 20 - 29 ng/mL Optimal: ? > or = 30 ng/mL For 25-OH Vitamin D testing on patients on D2-supplementation and patients for whom quantitation of D2 and D3 fractions is required, the QuestAssure[facility]() 25-OH VIT D, (D2,D3), LC/MS/MS is recommended: order code [id number] (patients >2yrs). See Note 1 Note 1 For additional information, please refer to http://education.Fooducate.InsideView/faq/ZLR676 (This link is being provided for informational/ educational purposes only.) 06/26/2024 7:52 AM STATISTICAL CLERK ADVERTISING 06/26/2024 7:53 AM STATISTICAL CLERK ADVERTISING Narrative Resulting Agency Comment Performing Organization Information: ?Site ID: [place] ?Name: [facility] ?Address: [address] [address] ?Director: Hien Leavitt MD Lanre Parekh DO LABORATORY Final Re sult [facility] [address] [address] [address], * (ABNORMAL) LIPID PANEL (06/26/2024 7:52 AM STATISTICAL CLERK ADVERTISING) CHOLESTEROL 120 <200 mg/dL [place] HDL 34(L) > OR = 40 mg/dL [place] TRIGLYCERIDES 72 <150 mg/dL [place] LDL (CALCULATED) 71 mg/dL (calc) [place] Comment: Reference range: <100 Desirable range <100 mg/dL for primary prevention; ?? <70 mg/dL for patients with CHD or diabetic patients with > or = 2 CHD risk factors. LDL-C is now calculated using the Edilberto-Garett calculation, which is a validated novel method providing better accuracy than the Friedewald equation in the estimation of LDL-C. Edilberto SS et al. JOSE ALBERTO. 2013;310(19): 9149-3531 (http://education.Fooducate.InsideView/faq/LFQ841) CHOL/HDL RATIO 3.5 <5.0 (calc) [place] NON HDL CHOLESTEROL 86 <130 mg/dL (calc) [place] Comment: For patients with diabetes plus 1 major ASCVD risk factor, treating to a non-HDL-C goal of <100 mg/dL (LDL-C of <70 mg/dL) is considered a therapeutic option. 06/26/2024 7:52 AM STATISTICAL CLERK ADVERTISING 06/26/2024 7:53 AM STATISTICAL CLERK ADVERTISING Narrative Resulting Agency Comment Performing Organization Information: ?Site ID: [id number] ?Name: [facility] ?Address: [facility] [address] [place] [address] ?Director: Hien Leavitt Lanre Parekh DO LABORATORY Final Re sult Performing Organization Address [facility] Co de Phone Number [facility] [address] * URIC ACID BLOOD (06/26/2024 7:52 AM STATISTICAL CLERK ADVERTISING) Pathologist [facility] URIC ACID 6.7 4.0 - 8.0 mg/dL [facility] [place] Comment: Therapeutic target for gout patients: <6.0 mg/dL ?? 06/26/2024 7:52 AM STATISTICAL CLERK ADVERTISING 06/26/2024 7:53 AM STATISTICAL CLERK ADVERTISING Narrative Resulting Agency Comment Performing Organization Information: ?Site ID: ?Name: [facility] ?Address: [address] [place] [address] [place] [address] ?Director: Hien Leavitt Lanre Parekh DO LABORATORY Final Re sult Performing Organization Address [facility] Co de Phone Number [facility] [address], * HEPATITIS C ANTIBODY ([facility] ONLY) (06/14/2023 2:36 PM STATISTICAL CLERK ADVERTISING) Pathologist [facility] HEPATITIS C AB NON-REACTI VE NON-REACT JESSICA 06/14/2023 10:36 PM STATISTICAL CLERK ADVERTISING [facility] Comment: ANTIBODIES TO HCV NOT DETECTED. DOES NOT EXCLUDE THE POSSIBILITY OF EXPOSURE TO HCV. 06/14/2023 2:36 PM STATISTICAL CLERK ADVERTISING Lanre Parekh DO LABORATORY Final Re sult Performing Organization Address [facility] Co de Phone Number [facility] [address] [place] [address], [phone] from Last 3 Months or Most Recently Relevant to Health Maintenance Insurance Care Teams Industrial Sales Manager Relationship Specialty Start Date End Date Lanre Parekh DO [address] [place] [id number] PCP - General FAMILY PRACTICE 09/07/22
--- OUTSIDE RECORDS SUMMARY | 2024-07-09 05:17 | XMS_ITS | Encounter Summary ---
Author Organization [facility] Address [address] [place] [address]. [place], [place] [address] [place] [address] Care Team Providers Care Barber Name Role Phone Lanre Parekh DO Primary Care Provider + Reason for Visit * Reason Comments Strep Throat The patient presents for follow up from + strep test at [facility]. Patient reports dizziness is better. Bumps are still present. Encounter Details Date Type Department Care Team (Late st Contact Info) Description 09/26/2023 2:20 PM CDT Office Visit [facility] Medical Group Family & Internal Medicine [address] [phone] Lanre Parekh DO [address] [place] [address] Strep Throat (The patient presents for follow up from + strep test at [facility]. Patient reports dizziness is better. Bumps are still present. ) Social History Tobacco Use Types Packs/Day [...] Sex Assigned at Male 07/01/2024 9:54 AM SENIOR CAREGIVER Legal Sex Male 8:28 AM SENIOR CAREGIVER Gender Identity Male 07/01/2024 9:54 AM SENIOR CAREGIVER Sexual Orientation Not on file documented as of this encounter Last Filed Vital Signs Vital Sign Reading Time Taken Comments Blood Pressure 120/82 09/26/2023 2:35 PM CDT Pulse 74 09/26/2023 2:35 PM CDT Temperature 36.7 ??C (98 ??F) 09/26/2023 2:35 PM CDT Respiratory Rate 16 09/26/2023 2:35 PM CDT Oxygen Saturation 98% 09/26/2023 2:35 PM CDT Inhaled Oxygen Concentration - - Weight 89.3 kg (196 lb 12.8 oz) 09/26/2023 2:35 PM CDT Height 172.7 cm (5' 8 ) 09/26/2023 2:35 PM CDT Body Mass Index 29.92 09/26/2023 2:35 PM CDT documented in this encounter Progress Notes * Lanre Parekh, - 09/26/2023 2:20 PM CDT Images from the original note were not included. GENERAL OFFICE VISIT Encounter Date: 09/26/2023 Chief Complaint: 32-year-old male presents for Strep Throat (The patient presents for follow up from + strep test [facility]. Patient reports dizziness is better. Bumps are still present. ) HPI: Pt presents for urgent care follow-up from 09/24/23. Pt was seen and diagnosed with recurrent strep. Pt was treated with azithromycin, which pt is still taking at this time. Pt's dizziness has improved. Pt has skin lesions that are needing evaluation. Pt notes the lesions are under the neck. Pt hadheadaches with them as well. Pt was given Depo-medrol injection as well, which may have helped. Review of Systems Constitutional: Negative for fever. 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 Phenotype and distribution: Stricturing Primarily involving the ileum with some concern for fistulizing disease though no evidence of fistula penetrating colon lumen during surgery in 2018 Medical therapies: Previously treated with prednisone for at least 2 continuous years, flagyl, Asacol, Azathioprine ([phone]), Remicade ([phone], switched for insurance purposes), Hu Iritis Osteoporosis [...] Never Smokeless tobacco: Never Vaping Use Vaping Use: Never used Substance and Sexual Activity Alcohol use: Yes Alcohol/week: 11.7 standard drinks of alcohol Types: 7 Glasses of wine per week Comment: glass of wine nightly Drug use: Not Currently Sexual activity: Yes Other Topics Concern Not on file Social History Narrative Not on file Social Determinants of Health Financial Resource Strain: Not on file Food Insecurity: Not on file Transportation Needs: Not on file Physical Activity: Not on file Stress: Not on file Social Connections: Not on file Intimate Partner Violence: Not on file Housing Stability: Not on file Immunization History Administered Date(s) Administered Dtap (Generic) 05/10/1990 PFIZER COVID-19 (ORIGINAL FORMULATION, PURPLE CAP) mRNA, LNP-S, PF, 30 MCG/0.3 ML DOSE 10/04/2020, 10/28/2020 Pneumococcal (Pneumovax 23) 05/17/2017, 10/26/2022 Pneumococcal (Prevnar 13) 01/25/2017 Tdap (Generic) 02/09/2014 Current Outpatient Medications Medication Sig Dispense Refill cefdinir (OMNICEF) 300 MG Cap capsule Take 1 capsule (300 mg total) by mouth 2 (two) times daily. 20 capsule 0 methylPREDNISolone, GABRIEL, (MEDROL DOSEPAK) 4 MG tablet 6 TABLETS ON DAY ONE, 5 TABLETS DAY TWO, 4 TABLETS DAY THREE, 3 TABLETS DAY FOUR, 2 TABLETS DAY FIVE, AND 1 TABLET DAY SIX 1 each 0 allopurinol (ZYLOPRIM) 100 MG tablet Take 1 tablet (100 mg total) by mouth daily. azithromycin (ZITHROMAX Z-GABRIEL) 250 MG tablet Take 2 tablets by mouth on day one then 1 daily for four days. 6 tablet 0 balsalazide 750 MG capsule TAKE 2 CAPS ONE DAILY colestipol 1 g tablet Take 1 tablet (1 g total) by mouth. folic acid 1 MG tablet TK 1 T PO D UTD 3 HUMIRA PEN 40 MG/0.8ML injection Inject [...] (100 mg total) by mouth daily. azithromycin (ZITHROMAX Z-GABRIEL) 250 MG tablet Take 2 tablets by mouth on day one then 1 daily for four days. balsalazide 750 MG capsule TAKE 2 CAPS ONE DAILY colestipol 1 g tablet Take 1 tablet (1 g total) by mouth. folic acid 1 MG tablet TK 1 T PO D UTD HUMIRA PEN 40 MG/0.8ML injection Inject 0.8 [...] Other (see comment) Neuropathy Objective: Filed Vitals: 09/26/23 1435 BP: 120/82 Pulse: 74 Resp: 16 Temp: 98 ??F (36.7 ??C) TempSrc: Skin SpO2: 98% Weight: 89.3 kg (196 lb 12.8 oz) Height: 1.727 m (5' 8 ) Physical Exam Vitals and nursing note reviewed. HENT: Head: Normocephalic and atraumatic. Right Ear: Tympanic membrane, ear canal and external ear normal. Left Ear: Tympanic membrane, ear canal and external ear normal. Mouth/Throat: Pharynx: Oropharyngeal exudate and posterior oropharyngeal erythema present. Eyes: General: No scleral icterus. Conjunctiva/sclera: Conjunctivae normal. Neck: Comments: Cervical and occipital lymphadenopathy noted, consistent with described lesions Cardiovascular: Rate and Rhythm: Normal rate and regular rhythm. Heart sounds: Normal heart sounds. No murmur heard. No friction rub. No gallop. Pulmonary: Effort: Pulmonary effort is normal. No respiratory distress. Breath sounds: Normal breath sounds. No wheezing or rales. Abdominal: Palpations: Abdomen is soft. Tenderness: There is no abdominal tenderness. Musculoskeletal: Cervical back: Neck supple. Skin: General: Skin is warm and dry. Findings: No rash. Neurological: Mental Status: He is alert. Psychiatric: Mood and Affect: Affect normal. Assessment & Plan: Nic was seen today for strep throat. Diagnoses and all orders for this visit: Pharyngitis, unspecified etiology - cefdinir (OMNICEF) 300 MG Cap capsule; Take 1 capsule (300 mg total) by mouth 2 (two) times daily. - methylPREDNISolone, GABRIEL, (MEDROL DOSEPAK) 4 MG tablet; 6 TABLETS ON DAY ONE, 5 TABLETS DAY TWO, 4TABLETS DAY THREE, 3 TABLETS DAY FOUR, 2 TABLETS DAY FIVE, AND 1 TABLET DAY SIX Occipital lymphadenopathy - cefdinir (OMNICEF) 300 MG Cap capsule; Take 1 capsule (300 mg total) by mouth 2 (two) times daily. - methylPREDNISolone, GABRIEL, (MEDROL DOSEPAK) 4 MG tablet; 6 TABLETS ON DAY ONE, 5 TABLETS DAY TWO, 4TABLETS DAY THREE, 3 TABLETS DAY FOUR, 2 TABLETS DAY FIVE, AND 1 TABLET DAY SIX Discussion/Summary: Will send out Medrol Dosepak today and can switch to cefdinir if not improving or worsening in the next 24 hours. Symptoms are most consistent still with streptococcal pharyngitis given positive strep and examination today. Moderate headache and dizziness; possibly consistent with noted condition or other similar etiology that would also be treated with antibiotic therapy. Call back if not improving. If continues to have recurrent streptococcal pharyngitis episodes, consider referral to ENT. Follow-up with routine visits otherwise. Patient verbalized understanding. I personally spent a total of 32 minutes on the day of the encounter. This includes [id number] and jit-mfld-[id number]-face time I provided on the day of the encounter & excludes time spent performing separately reportable services. Lanre Parekh DO documented in this encounter Plan of Treatment Not on file documented as of this encounter Visit Diagnoses Diagnosis Pharyngitis, unspecified etiology- Primary Occipital lymphadenopathy Enlargement of lymph nodes documented in this encounter Additional Health Concerns Assessment Noted Time PHQ-9 Depression Total Score: 1 01/26/20 21 11:17 AM CDT documented as of this encounter Care Teams Barber Relationship Specialty Start Date End Date Lanre Parekh DO [address] [place] [phone] PCP - General FAMILY PRACTICE 09/07/22 documented as of this encounter
--- OUTSIDE RECORDS SUMMARY | 2024-07-09 05:17 | XMS_ITS | Encounter Summary ---
Author Organization [facility] Address [address] [place] [address]. [place], [place] [phone] [place] [address] Care Team Providers Care Art Therapy Specialist Name Role Phone Lanre Parekh DO Primary Care Provider + Lanre Parekh DO Primary Care Provider + Encounter Details Date Type Department Care Team (Late st Contact Info) Description 01/27/2021 Bill the [employer] Message Enc [facility] Medical Group Family & Internal Medicine [facility] [address] [place] [address] Lanre Parekh DO [address] [place] [address] RE: Medication Questions Social History Tobacco Use Types Packs/Day Years Used Date Smoking Tobacco: Never Smokeless Tobacco: Never Alcohol Use Standard Drinks/Week Comments Yes 0 (1 standard drink = 0.6 oz pur e alcohol) 1-2 per week AUDIT-C Answer Date Recorded Frequency of Alcohol Consumption Monthly or less 07/05/2018 Average Number of Drinks Not on file 019 Frequency of Binge Drinking Not on file 09/2018 PHQ-2 Answer Date Recorded PHQ-2 Score - If the patient scores above 3, please move on to questions 3-9 1 01/25/2021 Sex and Gender Information Value Date Recorded Sex Assigned at Male 07/01/2024 9:54 AM ACIDIZER Legal Sex Male 8:28 AM ACIDIZER Gender Identity Male 07/01/2024 9:54 AM ACIDIZER Sexual Orientation Not on file documented as of this encounter Progress Notes * Lanre Parekh DO - 01/27/2021 9:10 AM CDT Can just do Mucinex and Zyrtec. No, that symptom would not require retesting. We don't typically retest; we go based on symptom improvement and fever status to remove from quarantine. documented in this encounter Plan of Treatment Not on file documented as of this encounter Visit Diagnoses Not on filedocumented in this encounter Additional Health Concerns Infection Onset Date Last Indicated Resolved Time COVID-19 Confirmed 01/25/2021 01/25/2021 12:33 AM CDT COVID-19 Rule Out 07/01/2024 07/01/2024 07/01/2024 10:33 AM ACIDIZER COVID-19 Rule Out 07/01/2024 07/01/2024 07/02/2024 4:06 PM ACIDIZER Assessment Noted Time PHQ-9 Depression Total Score: 1 01/26/20 21 11:17 AM CDT documented as of this encounter Care Teams Art Therapy Specialist Relationship Specialty Start Date End Date Lanre Parekh DO [address] [place] [address] PCP - General FAMILY PRACTICE 06/28/18 09/06/22 Lanre Parekh DO [address] [place] [address] PCP - General FAMILY PRACTICE 09/07/22 documented as of this encounter
--- OUTSIDE RECORDS SUMMARY | 2024-07-09 05:17 | XMS_ITS | Encounter Summary ---
Author Organization [facility] Address [address] [place] [address]. [place], [place] [phone] [place] [address] Care Team Providers Care Auto Rebuilder Name Role Phone Lanre Parekh DO Primary Care Provider + Lanre Parekh DO Primary Care Provider + Encounter Details Date Type Department Care Team (Late st Contact Info) Description 01/28/2021 Vivastreamt Message Enc [facility] Medical Group Family & Internal Medicine [facility] [address] [place] [address] Lanre Parekh DO [address] [place] [address] RE: Other Social History Tobacco Use Types Packs/Day Years [...] Sex Assigned at Male 07/01/2024 9:54 AM DIETETIC INTERN Legal Sex Male 8:28 AM DIETETIC INTERN Gender Identity Male 07/01/2024 9:54 AM DIETETIC INTERN Sexual Orientation Not on file documented as of this encounter Progress Notes * Lanre Parekh DO - 01/28/2021 2:40 PM CDT Since he is positive, it does not change his quarantine date. documented in this encounter Plan of Treatment Not on file documented as of this encounter Visit Diagnoses Not on filedocumented in this encounter Additional Health Concerns Infection Onset Date Last Indicated Resolved Time COVID-19 Confirmed 01/25/2021 01/25/2021 12:33 AM CDT COVID-19 Rule Out 07/01/2024 07/01/2024 07/01/2024 10:33 AM DIETETIC INTERN COVID-19 Rule Out 07/01/2024 07/01/2024 07/02/2024 4:06 PM DIETETIC INTERN Assessment Noted Time PHQ-9 Depression Total Score: 1 01/26/20 21 11:17 AM CDT documented as of this encounter Care Teams Auto Rebuilder Relationship Specialty Start Date End Date Lanre Parekh DO [address] [place] [address] PCP - General FAMILY PRACTICE 06/28/18 09/06/22 Lanre Parekh DO [address] [place] [address] PCP - General FAMILY PRACTICE 09/07/22 documented as of this encounter
--- OUTSIDE RECORDS SUMMARY | 2024-07-09 05:17 | XMS_ITS | Encounter Summary ---
Author Organization [facility] Address [address] [place] [address]. [place], [place] [phone] [place] [address] Care Team Providers Care Cook Cashier Food Prep Name Role Phone Lanre Parekh DO Primary Care Provider + Reason for Visit * Reason Onset Date Comments Medication 09/05/2021 Encounter Details Date Type Department Care Team (Late st Contact Info) Description 09/05/2021 Telephone [facility] Medical Group Family & Internal Medicine [facility] [address] [place] [address] Lanre Parekh DO [address] [place], [place] [phone] Medication Social History Tobacco Use Types Packs/Day Years [...] Sex Assigned at Male 07/01/2024 9:54 AM DRAMA TEACHER Legal Sex Male 8:28 AM DRAMA TEACHER Gender Identity Male 07/01/2024 9:54 AM DRAMA TEACHER Sexual Orientation Not on file documented as of this encounter Progress Notes * Francesca Haywood RN - 09/05/2021 1:18 PM CST Patient stated the urgent care tested for flu and covid both rapid and PCR's. Sent out RX per provider. Advised patient to call back if symptoms worsen. Patient verbalized understanding. Opportunity given for all questions to be answered, no further needs voiced at this time. LL-09/05/21 A TEACHER * Man Omer MD - 09/05/2021 12:38 PM CST Has he been tested for COVID? If not he should be tested. If he has already been tested, we can send in an antibiotic - Doxycycline 100mg bid x 7 days A TEACHER * Mary Shahid - 09/05/2021 12:32 PM CST Patient thinking he needs sinus medication. He is having cough, runny nose, fatigue, and chills. Was seen by urgent care and given a steroid last week. A TEACHER documented in this encounter Plan of Treatment Not on file documented as of this encounter Visit Diagnoses Diagnosis Chest congestion- Primary Other symptoms involving respiratory system and chest Sinus congestion Other diseases of nasal cavity and sinuses documented in this encounter Additional Health Concerns Assessment Noted Time PHQ-9 Depression Total Score: 1 01/26/20 21 11:17 AM CDT documented as of this encounter Care Teams Cook Cashier Food Prep Relationship Specialty Start Date End Date Lanre Parekh DO [address] [place] [address] PCP - General FAMILY PRACTICE 06/28/18 09/06/22 documented as of this encounter
--- OUTSIDE RECORDS SUMMARY | 2024-07-09 05:17 | XMS_ITS | Encounter Summary ---
Author Organization [facility] Address [address] [place] [address]. [place], [place] [phone] [place] [address] Care Team Providers Care Recordak Operator Name Role Phone Lanre Parekh DO Primary Care Provider + Reason for Visit * Reason Onset Date Comments Radiology Results 03/16/2023 Encounter Details Date Type Department Care Team (Late st Contact Info) Description 03/16/2023 Telephone [facility] Medical Group Family & Internal Medicine [facility] [address] [place] [address] Lanre Parekh DO [address] [place], [place] [phone] Radiology Results Social History Tobacco Use Types Packs/Day Years [...] Sex Assigned at Male 07/01/2024 9:54 AM CLINICAL NURSE SPECIALIST Legal Sex Male 8:28 AM CLINICAL NURSE SPECIALIST Gender Identity Male 07/01/2024 9:54 AM CLINICAL NURSE SPECIALIST Sexual Orientation Not on file documented as of this encounter Progress Notes * Lanre Parekh DO - 03/21/2023 4:24 PM CDT Noted. * Olena Coates MA - 03/21/2023 4:12 PM CDT Still having some pains. Gi suggest medication for gas and gave him some pain medications.States hehad inflamed fat cells. Report in care everywhere. * Lanre Parekh DO - 03/16/2023 11:53 AM CDT Did pt ever obtain CT that was ordered on 02/26/23? If not, how are his symptoms at this time? documented in this encounter Plan of Treatment Not on file documented as of this encounter Visit Diagnoses Not on filedocumented in this encounter Additional Health Concerns Assessment Noted Time PHQ-9 Depression Total Score: 1 01/26/20 21 11:17 AM CDT documented as of this encounter Care Teams Recordak Operator Relationship Specialty Start Date End Date Lanre Parekh DO [address] [place] [address] PCP - General FAMILY PRACTICE 09/07/22 documented as of this encounter
--- OUTSIDE RECORDS SUMMARY | 2024-07-09 05:17 | XMS_ITS | Encounter Summary ---
Author Organization [facility] Address [address] [place] [address]. [place], [place] [phone] [place] [address] Care Team Providers Care Plumber Name Role Phone Lanre Parekh DO Primary Care Provider + Encounter Details Date Type Department Care Team (Latest Contact Info) Description 06/14/2023 - 06/14/2023 11:59 PM SHIPPER RECEIVER Hospital Encounter [facility] [address] [place] [address] Lanre Parekh DO [facility] [place] [address] Discharge Disposition: Home or Self Care (Routine Discharge) Social History Tobacco Use Types Packs/Day Years [...] Answer Date Recorded Patient Health Questionnaire-2 Score 0 06/14/2023 Sex and Gender Information Value Date Recorded Sex Assigned at Male 07/01/2024 9:54 AM SHIPPER RECEIVER Legal Sex Male 8:28 AM SHIPPER RECEIVER Gender Identity Male 07/01/2024 9:54 AM SHIPPER RECEIVER Sexual Orientation Not on file documented as of this encounter Medications at Time of Discharge allopurinol (ZYLOPRIM) 100 MG tablet Take 1 tablet (100 mg total) by mouth daily. 05/28/2023 balsalazide 750 MG capsule TAKE 2 CAPS ONE DAILY 02/01/2017 colestipol 1 g tablet Take 1 tablet (1 g total) by mouth. 02/11/2018 mercaptopurine 50 MG tablet Take 1 tablet (50 mg total) by mouth daily. 11/11/2018 Multiple Vitamins-Mineral s (MULTIVITAMIN ADULT OR) sildenafil (VIAGRA) 100 MG tablet Take 1/2 or 1 tablet ONE hour prior to activity on an empty stomach daily PRN 01/17/2022 vitamin D3, cholecalciferol, 25 MCG (1000 UT) capsule Take 5 capsules (5,000 Units total) by mouth daily. folic acid 1 MG tablet TK 1 T PO D UTD 3 10/27/2017 06/16/2024 HUMIRA PEN 40 MG/0.8ML injection Inject 0.8 mLs (40 mg total) into the skin every 14 (fourteen) days. 07/15/2018 07/01/2024 documented as of this encounter Plan of Treatment Not on file documented as of this encounter Visit Diagnoses Not on filedocumented in this encounter Additional Health Concerns Assessment Noted Time PHQ-9 Depression Total Score: 1 01/26/20 21 11:17 AM CDT documented as of this encounter Care Teams Plumber Relationship Specialty Start Date End Date Lanre Parekh DO [address] [place] [address] PCP - General FAMILY PRACTICE 09/07/22 documented as of this encounter
--- OUTSIDE RECORDS SUMMARY | 2024-07-09 05:17 | XMS_ITS | Encounter Summary ---
Author Organization [facility] Address [address] [place] [address]. [place], [place] [phone] [place] [address] Care Team Providers Care Checker Bakery Products Name Role Phone Lanre Parekh DO Primary Care Provider + Reason for Visit * Reason Onset Date Comments [place] 09/24/2023 Encounter Details Date Type Department Care Team (Late st Contact Info) Description 09/24/2023 Telephone [facility] Medical Group Family & Internal Medicine [facility] [address] [place] [address] Lanre Parekh DO [address] [place], [place] [phone] [place] Social History Tobacco Use Types Packs/Day Years [...] Sex Assigned at Male 07/01/2024 9:54 AM STOVE MECHANIC Legal Sex Male 8:28 AM STOVE MECHANIC Gender Identity Male 07/01/2024 9:54 AM STOVE MECHANIC Sexual Orientation Not on file documented as of this encounter Progress Notes * Francesca Haywood RN - 09/24/2023 2:35 PM CDT Patient's called in stating that the patient has several swollen lymph nodes the front and back of neck/head. Patient is also having dizziness,ear pain and just not feeling well. No available appointments. Advised patient go to [facility] in clinic. Patient verbalized understanding. Opportunity given for all questions to be answered, no further needs voiced at this time. LL-09/24/23 documented in this encounter Plan of Treatment Not on file documented as of this encounter Visit Diagnoses Not on filedocumented in this encounter Additional Health Concerns Assessment Noted Time PHQ-9 Depression Total Score: 1 01/26/20 21 11:17 AM CDT documented as of this encounter Care Teams Checker Bakery Products Relationship Specialty Start Date End Date Lanre Parekh DO [address] [place] [address] PCP - General FAMILY PRACTICE 09/07/22 documented as of this encounter
--- OUTSIDE RECORDS SUMMARY | 2024-07-09 05:17 | XMS_ITS | Encounter Summary ---
Author Organization [facility] Address [address] [place] [address]. [place], [place] [address] [place] [address] Care Team Providers Care Global Program Director Name Role Phone Lanre Parekh DO Primary Care Provider + Reason for Visit * Reason Onset Date Comments Results 01/25/2021 Encounter Details Date Type Department Care Team (Late st Contact Info) Description 01/25/2021 Telephone [facility] Medical Group Family & Internal Medicine [facility] [address] [place] [address] Lanre Parekh DO [address] [place], [place] [phone] Results Social History Tobacco Use Types Packs/Day [...] Sex Assigned at Male 07/01/2024 9:54 AM SCLEROSCOPE TESTER Legal Sex Male 8:28 AM SCLEROSCOPE TESTER Gender Identity Male 07/01/2024 9:54 AM SCLEROSCOPE TESTER Sexual Orientation Not on file documented as of this encounter Progress Notes * Maribel Mccann MA - 01/25/2021 3:05 PM CDT Patient notified and v/u * Maribel Mccann MA - 01/25/2021 3:05 PM CDT ----- Message from Lanre Parekh DO sent at 01/25/2021 1:28 PM CDT ----- COVID is positive; will await confirmatory, but treat as discussed in office with appropriate quarantine. documented in this encounter Plan of Treatment Not on file documented as of this encounter Visit Diagnoses Not on filedocumented in this encounter Additional Health Concerns Infection Onset Date Last Indicated Resolved Time COVID-19 Rule Out 01/25/2021 01/25/2021 01/25/2021 12:15 PM CDT COVID-19 Confirmed 01/25/2021 01/25/2021 12:33 AM CDT Assessment Noted Time PHQ-9 Depression Total Score: 1 01/26/20 21 11:17 AM CDT documented as of this encounter Care Teams Global Program Director Relationship Specialty Start Date End Date Lanre Parekh DO [address] [place] [address] PCP - General FAMILY PRACTICE 06/28/18 09/06/22 documented as of this encounter
--- OUTSIDE RECORDS SUMMARY | 2024-07-09 05:17 | XMS_ITS | Encounter Summary ---
Author Organization [facility] Address [address] [place] [address]. [place], [place] [id number] [place] [address] Care Team Providers Care Campaign Assistant Name Role Phone Lanre Parekh DO Primary Care Provider + Lanre Parekh DO Primary Care Provider + Encounter Details Date Type Department Care Team (Late st Contact Info) Description 01/25/2021 [place] Message Enc [facility] Medical Group Family & Internal Medicine [facility] [address] [place] [address] Aleja Domingo, MERLE [address] [place] [address] Follow Up/Update Social History Tobacco Use Types Packs/Day Years [...] Sex Assigned at Male 07/01/2024 9:54 AM STAKEHOLDER MANAGER Legal Sex Male 8:28 AM STAKEHOLDER MANAGER Gender Identity Male 07/01/2024 9:54 AM STAKEHOLDER MANAGER Sexual Orientation Not on file documented as of this encounter Plan of Treatment Not on file documented as of this encounter Visit Diagnoses Not on filedocumented in this encounter Additional Health Concerns Infection Onset Date Last Indicated Resolved Time COVID-19 Rule Out 01/25/2021 01/25/2021 01/25/2021 12:15 PM CDT COVID-19 Confirmed 01/25/2021 01/25/2021 12:33 AM CDT COVID-19 Rule Out 07/01/2024 07/01/2024 07/01/2024 10:33 AM STAKEHOLDER MANAGER COVID-19 Rule Out 07/01/2024 07/01/2024 07/02/2024 4:06 PM STAKEHOLDER MANAGER Assessment Noted Time PHQ-9 Depression Total Score: 1 01/26/20 11:17 AM CDT documented as of this encounter Care Teams Campaign Assistant Relationship Specialty Start Date End Date Lanre Parekh DO [address] [place] [address] PCP - General FAMILY PRACTICE 06/28/18 09/06/22 Lanre Parekh DO [address] [place] [address] PCP - General FAMILY PRACTICE 09/07/22 documented as of this encounter
--- OUTSIDE RECORDS SUMMARY | 2024-07-09 05:17 | XMS_ITS | Encounter Summary ---
Author Organization [facility] Address [address] [place] [address]. [place], [place] [address] [place] [address] Care Team Providers Care Research Consultant Name Role Phone Lanre Parekh DO Primary Care Provider + Encounter Details Date Type Department Care Team (Latest Contact Info) Description 09/24/2023 Travel Social History Tobacco Use Types Packs/Day [...] Assigned at Male 07/01/2024 9:54 AM CLINICAL PHARMACOLOGIST Legal Sex Male 8:28 AM CLINICAL PHARMACOLOGIST Gender Identity Male 07/01/2024 9:54 AM CLINICAL PHARMACOLOGIST Sexual Orientation Not on file documented as of this encounter Plan of Treatment Not on file documented as of this encounter Visit Diagnoses Not on filedocumented in this encounter Additional Health Concerns Assessment Noted Time PHQ-9 Depression Total Score: 1 01/26/20 21 11:17 AM CDT documented as of this encounter Care Teams Research Consultant Relationship Specialty Start Date End Date Lanre Parekh DO [address] [place] [address] PCP - General FAMILY PRACTICE 09/07/22 documented as of this encounter
--- OUTSIDE RECORDS SUMMARY | 2024-07-09 05:17 | XMS_ITS | Encounter Summary ---
Author Organization [facility] Address [address] [place] [address]. [place], [place] [address] [place] [address] Care Team Providers Care Canal Equipment Mechanic Name Role Phone Lanre Parekh DO Primary Care Provider + Encounter Details Date Type Department Care Team (Latest Contact Info) Description 06/14/2023 Travel Social History Tobacco Use Types Packs/Day [...] Sex Assigned at Male 07/01/2024 9:54 AM HARDBOARD COATING MACHINE OPERATOR Legal Sex Male 8:28 AM HARDBOARD COATING MACHINE OPERATOR Gender Identity Male 07/01/2024 9:54 AM HARDBOARD COATING MACHINE OPERATOR Sexual Orientation Not on file documented as of this encounter Plan of Treatment Not on file documented as of this encounter Visit Diagnoses Not on filedocumented in this encounter Additional Health Concerns Assessment Noted Time PHQ-9 Depression Total Score: 1 01/26/20 21 11:17 AM CDT documented as of this encounter Care Teams Canal Equipment Mechanic Relationship Specialty Start Date End Date Lanre Parekh DO [address] [place] [address] PCP - General FAMILY PRACTICE 09/07/22 documented as of this encounter
--- OUTSIDE RECORDS SUMMARY | 2024-07-09 05:17 | XMS_ITS | Encounter Summary ---
Author Organization [facility] Address [address] [place] [address]. [place], [place] [id number] [place] [address] Care Team Providers Care Jet Worker Name Role Phone Lanre Parekh DO Primary Care Provider + Encounter Details Date Type Department Care Team (Latest Contact Info) Description 10/13/2021 Scan HEALTH INFO SRVCS Scanned, Documents Social History Tobacco Use Types Packs/Day Years [...] Sex Assigned at Male 07/01/2024 9:54 AM ADVERTISING DISPLAY ROTATOR Legal Sex Male 8:28 AM ADVERTISING DISPLAY ROTATOR Gender Identity Male 07/01/2024 9:54 AM ADVERTISING DISPLAY ROTATOR Sexual Orientation Not on file documented as of this encounter Plan of Treatment Not on file documented as of this encounter Visit Diagnoses Not on filedocumented in this encounter Additional Health Concerns Assessment Noted Time PHQ-9 Depression Total Score: 1 01/26/20 21 11:17 AM CDT documented as of this encounter Care Teams Jet Worker Relationship Specialty Start Date End Date Lanre Parekh DO [address] [place] [address] PCP - General FAMILY PRACTICE 06/28/18 09/06/22 documented as of this encounter
--- OUTSIDE RECORDS SUMMARY | 2024-07-09 05:17 | XMS_ITS | Encounter Summary ---
Author Organization [facility] Address [address] [place] [address]. [place], [place] [address] [place] [address] Care Team Providers Care Handstitching Machine Collar Feller Name Role Phone Lanre Parekh DO Primary Care Provider + Reason for Visit * Reason Onset Date Comments Results 07/18/2023 Encounter Details Date Type Department Care Team (Late st Contact Info) Description 07/18/2023 Telephone [facility] Medical Group Family & Internal Medicine [facility] [address] [place] [address] Lanre Parekh DO [address] [place], [place] [id number] Results Social History Tobacco Use Types Packs/Day [...] Sex Assigned at Male 07/01/2024 9:54 AM INSTALLER TECHNICIAN Legal Sex Male 8:28 AM INSTALLER TECHNICIAN Gender Identity Male 07/01/2024 9:54 AM INSTALLER TECHNICIAN Sexual Orientation Not on file documented as of this encounter Progress Notes * Olena Coates MA - 07/18/2023 8:27 AM CST Patient contacted and informed of results and recommendations. Will call back for referral if sx donot improve. tn ALLER TECHNICIAN * Olena Coates MA - 07/18/2023 8:26 AM CST ----- Message from Lanre Parekh DO sent at 07/16/2023 9:10 AM INSTALLER TECHNICIAN ----- All testing shows no clear infectious etiology of sore throat. Would consider referral to ENT if symptoms continue. ALLER TECHNICIAN documented in this encounter Plan of Treatment Not on file documented as of this encounter Visit Diagnoses Not on filedocumented in this encounter Additional Health Concerns Assessment Noted Time PHQ-9 Depression Total Score: 1 01/26/20 21 11:17 AM CDT documented as of this encounter Care Teams Handstitching Machine Collar Feller Relationship Specialty Start Date End Date Lanre Parekh DO [address] [place] [address] PCP - General FAMILY PRACTICE 09/07/22 documented as of this encounter
--- OUTSIDE RECORDS SUMMARY | 2024-07-09 05:17 | XMS_ITS | Encounter Summary ---
Author Organization [facility] Address [address] [place] [address]. [place], [place] [address] [place] [address] Care Team Providers Care Cupola Liner Name Role Phone Lanre Parekh DO Primary Care Provider + Encounter Details Date Type Department Care Team (Latest Contact Info) Description 07/11/2023 Travel Social History Tobacco Use Types Packs/Day [...] Sex Assigned at Male 07/01/2024 9:54 AM DIVISION ORDER TECHNICIAN Legal Sex Male 8:28 AM DIVISION ORDER TECHNICIAN Gender Identity Male 07/01/2024 9:54 AM DIVISION ORDER TECHNICIAN Sexual Orientation Not on file documented as of this encounter Plan of Treatment Not on file documented as of this encounter Visit Diagnoses Not on filedocumented in this encounter Additional Health Concerns Assessment Noted Time PHQ-9 Depression Total Score: 1 01/26/20 21 11:17 AM CDT documented as of this encounter Care Teams Cupola Liner Relationship Specialty Start Date End Date Lanre Parekh DO [address] [place] [address] PCP - General FAMILY PRACTICE 09/07/22 documented as of this encounter
--- OUTSIDE RECORDS SUMMARY | 2024-07-09 05:17 | XMS_ITS | Encounter Summary ---
Author Organization [facility] Address [address] [place] [address]. [place], [place] [address] [place] [address] Care Team Providers Care Exchange Teller Name Role Phone Lanre Parekh DO Primary Care Provider + Encounter Details Date Type Department Care Team (Latest Contact Info) Description 09/07/2022 Travel Social History Tobacco Use Types Packs/Day [...] Sex Assigned at Male 07/01/2024 9:54 AM ON SITE SOIL EVALUATOR Legal Sex Male 8:28 AM ON SITE SOIL EVALUATOR Gender Identity Male 07/01/2024 9:54 AM ON SITE SOIL EVALUATOR Sexual Orientation Not on file COVID-19 Exposure Response Date Recorded In the last 10 days, have yo u been in contact with someone who was confirmed or suspected to have Coronavirus/COVID-19? No / Unsure 09/07/2022 12:06 PM ON SITE SOIL EVALUATOR documented as of this encounter Plan of Treatment Not on file documented as of this encounter Visit Diagnoses Not on filedocumented in this encounter Additional Health Concerns Assessment Noted Time PHQ-9 Depression Total Score: 1 01/26/20 21 11:17 AM CDT documented as of this encounter Care Teams Exchange Teller Relationship Specialty Start Date End Date Lanre Parekh, [address] [place] [address] PCP - General FAMILY PRACTICE 09/07/22 documented as of this encounter
--- OUTSIDE RECORDS SUMMARY | 2024-07-09 05:17 | XMS_ITS | Encounter Summary ---
Author Organization [facility] Address [address] [place] [address]. [place], [place] [address] [place] [address] Care Team Providers Care Commuter Train Operator Name Role Phone Lanre Parekh DO Primary Care Provider + Reason for Visit * Reason Comments URI Tested positive covi d last night. Sx started Sunday. Encounter Details Date Type Department Care Team (Late st Contact Info) Description 07/14/2022 2:00 PM PRACTICE OR STUDENT TEACHER Telemedicine [facility] Medical Group Family & Internal Medicine [address] [address] Lanre Parekh DO [address] [place] [address] URI (Tested positive covid last night. Sx started Sunday. ) Social History Tobacco Use Types Packs/Day [...] Sex Assigned at Male 07/01/2024 9:54 AM PRACTICE OR STUDENT TEACHER Legal Sex Male 8:28 AM PRACTICE OR STUDENT TEACHER Gender Identity Male 07/01/2024 9:54 AM PRACTICE OR STUDENT TEACHER Sexual Orientation Not on file COVID-19 Exposure Response Date Recorded In the last 10 days, have yo u been in contact with someone who was confirmed or suspected to have Coronavirus/COVID-19? Unable to assess 07/14/2022 7:33 AM PRACTICE OR STUDENT TEACHER documented as of this encounter Progress Notes * Lanre Parekh, DO - 07/14/2022 2:00 PM CST Images from the original note were not included. GENERAL OFFICE VISIT Encounter Date: 07/14/2022 I introduced and identified myself, received verbal consent from the patient to proceed with this video visit and made the patient aware that the same confidentiality and management information systems director practices apply. The patient joined the video visit from Home. I completed the virtual visit from Office. The following clinical staff helped with this visit MA: Randi Zimmer. Total Time Spent in Minutes: 8 Chief Complaint: 31-year-old male presents for URI (Tested positive covid last night. Sx started Sunday. ) HPI: Patient states symptoms have been present for 3 days. Symptoms include headache, fatigue, SOB with exertion, cough, chills, cough, ear fullness, and muscle aches (especially in his back). Pertinent negatives include N/V, Fevers and Rash. Patient has no sick contacts. OTC medications tried include Tylenol. Pt tested positive for COVID last night. Review of Systems Constitutional: Negative for fever. HENT: See HPI Respiratory: Positive for cough and shortness of breath. Patient Active Problem List Diagnosis ??? Arthritis ??? Crohn's disease (CMS/HCC) ??? Crohn's disease of both small and large intestine (CMS/HCC) ??? Generalized abdominal pain ??? Diarrhea due to malabsorption ??? History of high risk medication treatment ??? Iritis ??? Osteoporosis ??? Chronic pharyngitis Past Medical History: Diagnosis Date ??? Crohn's disease of both small and large intestine (CMS/HCC) 01/25/2017 Overview: Onset: 2004. Phenotype and distribution: Stricturing Primarily involving the ileum with some concern for fistulizing disease though no evidence of fistula penetrating colon lumen during surgery in 2018 Medical therapies: Previously treated with prednisone for at least 2 continuous years, flagyl, Asacol, Azathioprine ([id number]), Remicade ([id number], switched for insurance purposes), Hu ??? Iritis ??? Osteoporosis 12/07/2017 Last Assessment & Plan: Please follow Dr. Mckeon's instructions regarding calcium supplementation (notation for 24hr urine calcium provided to patient). Likely on too much calcium supplementation between his multivitamin and calcium supplements.This can contribute to kidney stones especially in the context of ileal Crohn's disease. Past Surgical History: Procedure Laterality Date ??? HC COLON RESECTION 12/2017 Likely ilioresection ??? VASECTOMY Family History Problem Relation Name Age of Onset ??? Hypertension Mother ??? Psychiatry Mother ??? Hypertension Father ??? Cancer Paternal Grandfather Social History Socioeconomic History ??? Marital status: Spouse name: Not on file ??? Number of children: Not on file ??? Years of education: Not on file ??? Highest education level: Not on file Occupational History ??? Not on file Tobacco Use ??? Smoking status: Never ??? Smokeless tobacco: Never Vaping Use ??? Vaping Use: Never used Substance and Sexual Activity ??? Alcohol use: Yes Comment: 1-2 per week ??? Drug use: Not Currently ??? Sexual activity: Yes Other Topics Concern ??? Not on file Social History Narrative ??? Not on file Social Determinants of Health Financial Resource Strain: Not on file Food Insecurity: Not on file Transportation Needs: Not on file Physical Activity: Not on file Stress: Not on file Social Connections: Not on file Intimate Partner Violence: Not on file Housing Stability: Not on file Immunization History Administered Date(s) Administered ??? Dtap (Generic) 05/10/1990 ??? PFIZER COVID-19 (ORIGINAL FORMULATION, PURPLE CAP), MRNA, LNP-S, PF, 30 MCG/0.3 ML DOSE 10/04/2020, 10/28/2020 ??? Pneumococcal (Pneumovax 23) 05/17/2017 ??? Pneumococcal (Prevnar 13) 01/25/2017 ??? Tdap (Generic) 02/09/2014 Current Outpatient Medications Medication Sig Dispense Refill ??? allopurinol 100 MG tablet ??? balsalazide 750 MG capsule TAKE 2 CAPS ONE DAILY ??? calcium carbonate (OS-ANA) 600 MG tablet every morning. ??? colestipol 1 g tablet Take 1 g by mouth. ??? folic acid 1 MG tablet TK 1 T PO D UTD 3 ??? HUMIRA PEN 40 MG/0.8ML injection Inject 40 mg into the skin every 14 (fourteen) days. ??? mercaptopurine 50 MG tablet Take 50 mg by mouth daily. ??? Multiple Vitamins-Minerals (MULTIVITAMIN ADULT OR) ? ? nirmatrelvir & ritonavir 300/100 (PAXLOVID) 20 x 150 MG & 10 x 100MG tablet pack Take TWO nirmatrelvir 150 mg tablets along with ONE ritonavir 100 mg tablet, with all three tablets taken together, twice daily for 5 days. May take with or without food. Swallow tablets whole. Do not chew,break or crush. 30 each 0 ??? [place]-3 Fatty Acids ([employer] FISH OIL) 1000 MG Cap ??? Probiotic Product (PROBIOTIC ADVANCED OR) ??? sildenafil (VIAGRA) 100 MG tablet Take 1/2 or 1 tablet ONE hour prior to activity on an empty stomach daily PRN ??? Turmeric Powder Take 1,500 mg by mouth. ??? vitamin D2, ergocalciferol, 61654 UNITS capsule Take 50,000 Units by mouth every 14 (fourteen) days. ??? vitamin D3, cholecalciferol, 25 MCG (1000 UT) capsule Take 5,000 Units by mouth daily. No current facility-administered medications for this visit. Current Outpatient Medications on File Prior to Visit Medication Sig ??? allopurinol 100 MG tablet ??? balsalazide 750 MG capsule TAKE 2 CAPS ONE DAILY ??? calcium carbonate (OS-ANA) 600 MG tablet every morning. ??? colestipol 1 g tablet Take 1 g by mouth. ??? folic acid 1 MG tablet TK 1 T PO D UTD ??? HUMIRA PEN 40 MG/0.8ML injection Inject 40 mg into the skin every 14 (fourteen) days. ??? mercaptopurine 50 MG tablet Take 50 mg by mouth daily. ??? Multiple Vitamins-Minerals (MULTIVITAMIN ADULT OR) ??? [place]-3 Fatty Acids (CVS FISH OIL) 1000 MG Cap ??? Probiotic Product (PROBIOTIC ADVANCED OR) ??? sildenafil (VIAGRA) 100 MG tablet Take 1/2 or 1 tablet ONE hour prior to activity on an empty stomach daily PRN ??? Turmeric Powder Take 1,500 mg by mouth. ??? vitamin D2, ergocalciferol, 14927 UNITS capsule Take 50,000 Units by mouth every 14 (fourteen) days. ??? vitamin D3, cholecalciferol, 25 MCG (1000 UT) capsule Take 5,000 Units by mouth daily. No current facility-administered medications on file prior to visit. Allergies Allergen Reactions ??? Metronidazole Other (see comment) Neuropathy Objective: As this is a virtual visit, no formal vitals are able to be obtained. No home vitals or testing device readings are relevant to this visit. Physical Exam Vitals and nursing note reviewed. HENT: Head: Normocephalic and atraumatic. Right Ear: External ear normal. Left Ear: External ear normal. Nose: Nose normal. Eyes: General: No scleral icterus. Conjunctiva/sclera: Conjunctivae normal. Pulmonary: Effort: Pulmonary effort is normal. Skin: General: Skin is dry. Findings: No rash. Neurological: Mental Status: He is alert and oriented to person, place, and time. Psychiatric: Mood and Affect: Mood and affect normal. Assessment & Plan: Nic was seen today for uri. Diagnoses and all orders for this visit: COVID-19 - nirmatrelvir & ritonavir 300/100 (PAXLOVID) 20 x 150 MG & 10 x 100MG tablet pack; Take TWO nirmatrelvir 150 mg tablets along with ONE ritonavir 100 mg tablet, with all three tablets taken together, twice daily for 5 days. May take with or without food. Swallow tablets whole. Do not chew, break or crush. Discussion/Summary: Will treat as per above; pt meets criteria for use under EUA of Paxlovid. Instructed to hold sildenafil while taking Paxlovid. Discussed other conservative treatment and quarantine guidelines. Call back if not improving or worsening. Otherwise can f/u with regular visits. Pt v/u. Lanre Parekh DO TICE OR STUDENT TEACHER documented in this encounter Plan of Treatment Not on file documented as of this encounter Visit Diagnoses Diagnosis COVID-19- Primary documented in this encounter Additional Health Concerns Assessment Noted Time PHQ-9 Depression Total Score: 1 01/26/20 21 11:17 AM CDT documented as of this encounter Care Teams Commuter Train Operator Relationship Specialty Start Date End Date Lanre Parekh DO [address] [place] [address] PCP - General FAMILY PRACTICE 06/28/18 09/06/22 documented as of this encounter
--- OUTSIDE RECORDS SUMMARY | 2024-07-09 05:17 | XMS_ITS | Encounter Summary ---
Author Organization [facility] Address [address] [place] [address]. [place], [place] [address] [place] [address] Care Team Providers Care Nurse Behavioral Health Care Name Role Phone Lanre Parekh DO Primary Care Provider + Encounter Details Date Type Department Care Team (Latest Contact Info) Description 11/07/2022 Scan [facility] HEALTH INFO SRVCS Scanned, Doc Med Group Social History Tobacco Use Types Packs/Day Years [...] Sex Assigned at Male 07/01/2024 9:54 AM TYPE BAR AND SEGMENT ASSEMBLER Legal Sex Male 8:28 AM TYPE BAR AND SEGMENT ASSEMBLER Gender Identity Male 07/01/2024 9:54 AM TYPE BAR AND SEGMENT ASSEMBLER Sexual Orientation Not on file documented as of this encounter Plan of Treatment Not on file documented as of this encounter Visit Diagnoses Not on filedocumented in this encounter Additional Health Concerns Assessment Noted Time PHQ-9 Depression Total Score: 1 01/26/20 21 11:17 AM CDT documented as of this encounter Care Teams Nurse Behavioral Health Care Relationship Specialty Start Date End Date Lanre Parekh DO [address] [place] [address] PCP - General FAMILY PRACTICE 09/07/22 documented as of this encounter
--- OUTSIDE RECORDS SUMMARY | 2024-07-09 05:17 | XMS_ITS | Encounter Summary ---
Author Organization [facility] Address [address] [place] [address]. [place], [place] [address] [place] [address] Care Team Providers Care Petroleum Refinery Worker Name Role Phone Lanre Parekh DO Primary Care Provider + Encounter Details Date Type Department Care Team (Latest Contact Info) Description 01/25/2021 - 01/25/2021 11:59 PM CDT Hospital Encounter [facility] [address] [place] [address] Lanre Parekh DO [facility] [place] [address] Discharge Disposition: Home or Self Care (Routine [...] Sex Assigned at Male 07/01/2024 9:54 AM DIRECTOR CLINICAL DATA Legal Sex Male 8:28 AM DIRECTOR CLINICAL DATA Gender Identity Male 07/01/2024 9:54 AM DIRECTOR CLINICAL DATA Sexual Orientation Not on file documented as of this encounter Medications at Time of Discharge balsalazide 750 MG capsule TAKE 2 CAPS ONE DAILY 02/01/2017 colestipol 1 g tablet Take 1 tablet (1 g total) by mouth. 02/11/2018 mercaptopurine 50 MG tablet Take 1 tablet (50 mg total) by mouth daily. 11/11/2018 Multiple Vitamins-Minerals (MULTIVITAMIN ADULT OR) vitamin D3, cholecalciferol, 25 MCG (1000 UT) capsule Take 5 capsules (5,000 Units total) by mouth daily. allopurinol 100 MG tablet 01/18/2021 3 azithromycin (ZITHROMAX) 250 MG tabletIndications :Fatigue, unspecified type,Body aches Take 2 tabs daily the first day, then take 1 tab daily 6 tablet 01/25/2021 1 calcium carbonate (OS-ANA) 600 MG tablet every morning. 11/16/2017 3 folic acid 1 MG tablet TK 1 T PO D UTD 3 10/27/2017 4 HUMIRA PEN 40 MG/0.8ML injection Inject 0.8 mLs (40 mg total) into the skin every 14 (fourteen) days. 07/15/2018 4 [place]-3 Fatty Acids (CVS FISH OIL) 1000 MG Cap 09/08/19 2 3 Probiotic Product (PROBIOTIC ADVANCED OR) 3 Turmeric Powder Take 1,500 mg by mouth. 3 vitamin D2, ergocalciferol, 92072 UNITS capsule Take 50,000 Units by mouth every 14 (fourteen) days. 06/23/2020 3 documented as of this encounter Plan of Treatment Not on file documented as of this encounter Visit Diagnoses Not on filedocumented in this encounter Additional Health Concerns Infection Onset Date Last Indicated Resolved Time COVID-19 Rule Out 01/25/2021 01/25/2021 01/25/2021 12:15 PM CDT COVID-19 Confirmed 01/25/2021 01/25/2021 1 12:33 AM CDT Assessment Noted Time PHQ-9 Depression Total Score: 1 01/26/20 21 11:17 AM CDT documented as of this encounter Care Teams Petroleum Refinery Worker Relationship Specialty Start Date End Date Lanre Parekh DO [address] [place] [address] PCP - General FAMILY PRACTICE 06/28/18 09/06/22 documented as of this encounter
--- OUTSIDE RECORDS SUMMARY | 2024-07-09 05:17 | XMS_ITS | Encounter Summary ---
Author Organization [facility] Address [address] [place] [address]. [place], [place] [id number] [place] [phone] Care Team Providers Care Manager Project Management Name Role Phone Lanre Parekh DO Primary Care Provider + Encounter Details Date Type Department Care Team (Latest Contact Info) Description 04/20/2022 Scan HEALTH INFO SRVCS Scanned, Doc Med Group [...] Sex Assigned at Male 07/01/2024 9:54 AM OBSTETRICIAN Legal Sex Male 8:28 AM OBSTETRICIAN Gender Identity Male 07/01/2024 9:54 AM OBSTETRICIAN Sexual Orientation Not on file documented as of this encounter Plan of Treatment Not on file documented as of this encounter Visit Diagnoses Not on filedocumented in this encounter Additional Health Concerns Assessment Noted Time PHQ-9 Depression Total Score: 1 01/26/20 21 11:17 AM CDT documented as of this encounter Care Teams Manager Project Management Relationship Specialty Start Date End Date Lanre Parekh DO [address] [place] [address] PCP - General FAMILY PRACTICE 06/28/18 09/06/22 documented as of this encounter
--- OUTSIDE RECORDS SUMMARY | 2024-07-09 05:17 | XMS_ITS | Encounter Summary ---
Author Organization [facility] Address [address] [place] [address]. [place], [place] [address] [place] [address] Care Team Providers Care Van Driver Helper Name Role Phone Lanre Parekh DO Primary Care Provider + Reason for Visit * Reason Comments Strep Throat The patient states h e finished abx yesterday and woke up with a sore throat this morning. Patient was on amoxicillin. The patient was seen at [facility] urgent care in [place]. Encounter Details Date Type Department Care Team (Late st Contact Info) Description 07/11/2023 9:00 AM SKID WORKER Office Visit [facility] Medical Group Family & Internal Medicine [address] [address] Lanre Parekh DO [address] [place] [address] [phone] Strep Throat (The patient states he finished abx yesterday and woke up with a sore throat this morning. Patient was on amoxicillin. The patient was seen at [facility] in [place]. /) Social History Tobacco Use Types Packs/Day Years Used Date Smoking Tobacco: Never Smokeless Tobacco: Never Tobacco Cessation:Counseling Given: [...] Sex Assigned at Male 07/01/2024 9:54 AM SKID WORKER Legal Sex Male 8:28 AM SKID WORKER Gender Identity Male 07/01/2024 9:54 AM SKID WORKER Sexual Orientation Not on file documented as of this encounter Last Filed Vital Signs Vital Sign Reading Time Taken Comments Blood Pressure 120/78 07/11/2023 9:05 AM SKID WORKER Pulse 73 07/11/2023 9:05 AM SKID WORKER Temperature 36.4 ??C (97.5 ??F) 07/11/2023 9:05 AM CS T Respiratory Rate 16 07/11/2023 9:05 AM SKID WORKER Oxygen Saturation 98% 07/11/2023 9:05 AM SKID WORKER Inhaled Oxygen Concentration - - Weight 90.9 kg (200 lb 6.4 oz) 07/11/2023 9:05 A M SKID WORKER Height 172.7 cm (5' 8 ) 07/11/2023 9:05 AM SKID WORKER Body Mass Index 30.47 07/11/2023 9:05 AM SKID WORKER documented in this encounter Progress Notes * Lanre Parekh, - 07/11/2023 9:00 AM CST Images from the original note were not included. GENERAL OFFICE VISIT Encounter Date: 07/11/2023 Chief Complaint: 32-year-old male presents for Strep Throat (The patient states he finished abx yesterday and woke up with a sore throat this morning. Patient was on amoxicillin. The patient was seen at [facility] urgent care in [place]. /) HPI: Pt presents for sore throat. He was diagnosed with strep on 05/13/23 & 06/29/23. It was positive on 05/13/23 for rapid testing; his rapid was negative for 06/29/23 infection but he did not hear on the culture. Pt still has throat pain. It feels the same as it did on 05/13/23. He did have body aches previously; now all he has is sore throat. No drooling issues. No symptoms typically involved w ith Crohn's disease. Pt had a similar occurrence in 2019 that resolved eventually and improved somewhat on steroids. Pt was told it was not Crohn's by his GI doc previously. Review of Systems Constitutional: Negative for fever. HENT: Positive for sore throat. Respiratory: Positive for cough. Negative for shortness of breath. Patient Active Problem List Diagnosis Arthritis Crohn's disease (HHS/HCC) ([facility]) Crohn's disease of both small and large intestine ([facility]/HCC) Generalized abdominal pain Diarrhea due to malabsorption ([facility]/HCC) History of high risk medication treatment Iritis Osteoporosis Chronic pharyngitis JALYN (obstructive sleep apnea) Past Medical History: Diagnosis Date Crohn's disease of both small and large intestine ([facility]/HCC) 01/25/2017 Overview: Onset: 2004. Phenotype and distribution: Stricturing Primarily involving the ileum with some concern for fistulizing disease though no evidence of fistula penetrating colon lumen during surgery in 2018 Medical therapies: Previously treated with prednisone for at least 2 continuous years, flagyl, Asacol, Azathioprine (1163-1896), Remicade (6045-3871, switched for insurance purposes), Hu Iritis Osteoporosis [...] on file Tobacco Use Smoking status: Never Smokeless tobacco: Never Vaping Use Vaping [...] mouth daily. Multiple Vitamins-Minerals (MULTIVITAMIN ADULT OR) predniSONE (DELTASONE) 20 MG tablet Take 3 tablets for three days, then take 2 tablets for three days, then take 1 tablet for three days 18 tablet 0 sildenafil (VIAGRA) 100 MG tablet Take 1/2 [...] Other (see comment) Neuropathy Objective: Filed Vitals: 07/11/23 0905 BP: 120/78 Pulse: 73 Resp: 16 Temp: 97.5 ??F (36.4 ??C) TempSrc: Skin SpO2: 98% Weight: 90.9 kg (200 lb 6.4 oz) Height: 1.727 m (5' 8 ) Physical Exam Vitals and nursing note reviewed. HENT: Head: Normocephalic and atraumatic. Right Ear: External ear normal. Left Ear: External ear normal. Mouth/Throat: Mouth: Mucous membranes are moist. Pharynx: Oropharyngeal exudate and posterior oropharyngeal erythema present. Eyes: Conjunctiva/sclera: Conjunctivae normal. Cardiovascular: Rate and Rhythm: Normal rate and regular rhythm. Heart sounds: Normal heart sounds. No murmur heard. No friction rub. No gallop. Pulmonary: Effort: Pulmonary effort is normal. No respiratory distress. Breath sounds: Normal breath sounds. No wheezing or rales. Abdominal: Palpations: Abdomen is soft. Tenderness: There is no abdominal tenderness. Office Visit on 07/11/2023 Component Date Value Ref Range Status RAPID STREP TEST 07/11/2023 NEGATIVE NEGATIVE Final Internal Control: 07/11/2023 VALID VALID Final Assessment & Plan: Nic was seen today for strep throat. Diagnoses and all orders for this visit: Sore throat - RAPID STREP A - CULTURE STREP A (MG/SJS/SMD Only); Future - CULTURE STREP A (MG/SJS/SMD Only) Pharyngitis, unspecified etiology - predniSONE (DELTASONE) 20 MG tablet; Take 3 tablets for three days, then take 2 tablets for threedays, then take 1 tablet for three days - YUNI ALBERTS VIRUS; Future - CMV ANTIBODY, IGM; Future - CMV ANTIBODY IGG; Future - YUNI ALBERTS VIRUS - CMV ANTIBODY, IGM - CMV ANTIBODY IGG Discussion/Summary: Will treat as per above. Will send out abx if culture is positive. Will order labs as per above. Will dictate f/u and additional treatment on these results. Pt v/u. Lanre Parekh DO WORKER documented in this encounter Plan of Treatment Not on file documented as of this encounter Procedures Procedure Name Priority Date/Time Associated Diagnosis Comments YUNI ALBERTS VIRUS Routine 07/11/2023 12 :05 PM SKID WORKER Pharyngitis, unspecified etiology CMV ANTIBODY, IGM Routine 07/11/2023 12: 05 PM SKID WORKER Pharyngitis, unspecified etiology CMV ANTIBODY IGG Routine 07/11/2023 12:0 5 PM SKID WORKER Pharyngitis, unspecified etiology CULTURE STREP A Routine 07/11/2023 9:25 AM SKID WORKER Sore throat RAPID STREP A Routine 07/11/2023 Sore throat documented in this encounter Results * CMV ANTIBODY IGG (07/11/2023 12:05 PM SKID WORKER) CMV IGG <0.60 U/mL [facility] Comment: ? U/mL ? Interpretation ? ----- ? <0.60 ? Negative ? 0.60-0.69 ? Equivocal ? > or = 0.70 ?? 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 It does not differentiate between an active or past infection. 07/11/2023 12:0 5 PM SKID WORKER 07/11/2023 12:06 PM SKID WORKER Narrative Resulting Agency Comment Performing Organization Information: ?Site ID: [email or web address] ?Name: [facility] ?Address: [address] [id number] ?Director: Hien Leavitt MD Lanre Parekh DO LABORATORY Final Re sult [facility] [place] [address] [place] [address], * CMV ANTIBODY, IGM (07/11/2023 12:05 PM SKID WORKER) CMV IGM <30.00 AU/mL [facility] Comment: ?AU/mL ? Interpretation ?----- ?<30.00 ?No Antibody Detected ?30.00-34.99 ? Equivocal ?> or = 35.00 ?Antibody Detected Results from any one IgM assay should not be used as a sole determinant of a current or recent infection. Because an IgM test can yield false positive results and low level IgM antibody may persist for more than 12 months post infection, reliance on a single test result could be misleading. Acute infection is best diagnosed by demonstrating the conversion of IgG from negative to positive. If an acute infection is suspected, consider obtaining a new specimen and submit for both IgG and IgM testing in two or more weeks. 07/11/2023 12:0 5 PM SKID WORKER 07/11/2023 12:06 PM SKID WORKER Narrative Resulting Agency Comment Performing Organization Information: ?Site ID: [facility] ?Name: [facility]ely Rodgers ?Address: [address] [id number] ?Director: Hien Leavitt MD Lanre Soni Parekh DO LABORATORY Final Ana Laura roberts [facility] [address] [address], [place] * (ABNORMAL) YUNI ALBERTS VIRUS (07/11/2023 12:05 PM SKID WORKER) EBV VCA IGM <36.00 U/mL [facility] Comment: ?U/mL ?Interpretation ?---- ?<36.00 ?Negative ?36.00-43.99 ? Equivocal ?>43.99 ?Positive EBV VCA IGG 743.00(H) U/mL [facility] Comment: ? U/mL ? Interpretation ? ---- ? <18.00 ? Negative ? 18.00-21.99 ?Equivocal ? >21.99 ? Positive YUNI BAR NUCLEAR ANTIGEN IGG >600.00(H ) U/mL [facility] Comment: ? U/mL ? Interpretation ? ---- ? <18.00 ? Negative ? 18.00-21.99 ?Equivocal ? >21.99 ? Positive INTERPRETATION [facility] Comment: Suggestive of a past Yuni-Alberts virus infection. In infants, a similar pattern may occur as a result of passive maternal transfer of antibody. 07/11/2023 12:0 5 PM SKID WORKER 07/11/2023 12:06 PM SKID WORKER Narrative Resulting Agency Comment Performing Organization Information: ?Site ID: [place] ?Name: [email or web address] ?Address: [id number] [place] [id number] ?Director: Hien Leavitt MD Lanre Parekh DO LABORATORY Final Re sult Performing Organization Address [facility] Co de Phone Number [facility] [phone] [place] [address], * CULTURE STREP A (MG/SJS/SMD Only) (07/11/2023 9:25 AM SKID WORKER) THROAT CULTURE STREP A ONLY Negative for Group A Streptococci Negative for Group A Streptococci 07/12/2023 1:42 PM SKID WORKER [facility] STRUCTURE OF ANTERIOR PORTION OF NECK / Unknown 07/11/2023 9:25 AM SKID WORKER Lanre Parekh DO MICROBIOLOGY - GENERAL O RDERABLES Final Result Performing Organization Address [facility] Co de Phone Number [facility] [address] [place] [address], * RAPID STREP A (07/11/2023) RAPID STREP TEST NEGATIVE NEGATIVE [facility] Internal Control: VALID VALID [facility] STRUCTURE OF ANTERIOR PORTION OF NECK / Unknown 07/11/2023 Lanre Parekh DO MICROBIOLOGY - GENERAL O RDERABLES Final Result [facility] [address] [place] [address], documented in this encounter Visit Diagnoses Diagnosis Pharyngitis, unspecified etiology- Primary Sore throat Acute pharyngitis documented in this encounter Additional Health Concerns Assessment Noted Time PHQ-9 Depression Total Score: 1 01/26/20 21 11:17 AM CDT documented as of this encounter Care Teams Van Driver Helper Relationship Specialty Start Date End Date Lanre Parekh DO [address] [place] [address] PCP - General FAMILY PRACTICE 09/07/22 documented as of this encounter
--- OUTSIDE RECORDS SUMMARY | 2024-07-09 05:17 | XMS_ITS | Encounter Summary ---
Author Organization [facility] Address [address] [place] [address]. [place], [place] [phone] [place] [address] Care Team Providers Care Membership Sales Representative Name Role Phone Lanre Parekh DO Primary Care Provider + Encounter Details Date Type Department Care Team (Latest Contact Info) Description 09/26/2023 Travel Social History Tobacco Use Types Packs/Day [...] Sex Assigned at Male 07/01/2024 9:54 AM TUBE WASHER Legal Sex Male 8:28 AM TUBE WASHER Gender Identity Male 07/01/2024 9:54 AM TUBE WASHER Sexual Orientation Not on file documented as of this encounter Plan of Treatment Not on file documented as of this encounter Visit Diagnoses Not on filedocumented in this encounter Additional Health Concerns Assessment Noted Time PHQ-9 Depression Total Score: 1 01/26/20 21 11:17 AM CDT documented as of this encounter Care Teams Membership Sales Representative Relationship Specialty Start Date End Date Lanre Parekh DO [address] [place] [address] PCP - General FAMILY PRACTICE 09/07/22 documented as of this encounter
--- OUTSIDE RECORDS SUMMARY | 2024-07-09 05:17 | XMS_ITS | Encounter Summary ---
Author Organization [facility] Address [address] [place] [address]. [place], [place] [address] [place] [address] Care Team Providers Care Wet End Operator Name Role Phone Lanre Parekh DO Primary Care Provider + Reason for Visit * Reason Onset Date Comments TCM 11/09/2022 Encounter Details Date Type Department Care Team (Late st Contact Info) Description 11/09/2022 Telephone [facility] Medical Group Family & Internal Medicine [facility] [address] [place] [address] Lanre Parekh DO [address] [place], [place] [phone] TCM Social History Tobacco Use Types Packs/Day Years [...] Sex Assigned at Male 07/01/2024 9:54 AM LUMITE INJECTOR Legal Sex Male 8:28 AM LUMITE INJECTOR Gender Identity Male 07/01/2024 9:54 AM LUMITE INJECTOR Sexual Orientation Not on file documented as of this encounter Progress Notes * Francesca Haywood RN - 11/09/2022 2:36 PM CDT Lwft message to schedule appointment for TCM. Left several message for TCM follow up. LL-11/14/22 documented in this encounter Plan of Treatment Not on file documented as of this encounter Visit Diagnoses Not on filedocumented in this encounter Additional Health Concerns Assessment Noted Time PHQ-9 Depression Total Score: 1 01/26/20 21 11:17 AM CDT documented as of this encounter Care Teams Wet End Operator Relationship Specialty Start Date End Date Lanre Parekh DO [address] [place] [phone] PCP - General FAMILY PRACTICE 09/07/22 documented as of this encounter
--- OUTSIDE RECORDS SUMMARY | 2024-07-09 05:17 | XMS_ITS | Encounter Summary ---
Author Organization [facility] Address [address] [place] [address]. [place], [place] [phone] [place] [address] Care Team Providers Care Web Production Assistant Name Role Phone Lanre Parekh DO Primary Care Provider + Reason for Visit * Reason Onset Date Comments Imm/Inj 01/26/2021 entered pfizer c ovid imm. into chart Encounter Details Date Type Department Care Team (Late st Contact Info) Description 01/26/2021 Telephone [facility] Medical Group Family & Internal Medicine [facility] [address] [place] [address] Lanre Parekh DO [address] [place] [address] Imm/Inj (entered pfizer covid imm. into chart ) Social History Tobacco Use Types Packs/Day [...] Sex Assigned at Male 07/01/2024 9:54 AM DOG BREEDER Legal Sex Male 8:28 AM DOG BREEDER Gender Identity Male 07/01/2024 9:54 AM DOG BREEDER Sexual Orientation Not on file documented as of this encounter Progress Notes * Maribel Mccann MA - 01/26/2021 8:58 AM CDT Entered 01/26/21 ----- Message from Lanre Parekh DO sent at 01/25/2021 2:56 PM CDT ----- Regarding: FW: Follow Up/Update Contact: Please enter into chart. ----- Message ----- From: Olena Coates MA Sent: 01/25/2021 2:50 PM CDT To: Lanre Parekh DO Subject: FW: Follow Up/Update ----- Message ----- From: Nic Teran Sent: 01/25/2021 2:43 PM CDT To: Cruz Chaidez Nurse Subject: Follow Up/Update I was asked to proved a screen shot of my vaccination record. Please let me know it was received. * Sudha Stallings MA - 01/26/2021 8:51 AM CDT ----- Message from Nic Teran sent at 01/25/2021 2:46 PM CDT ----- Regarding: Follow Up/Update Contact: Iwas told to provide my vaccination record. I tested positive for COVID documented in this encounter Plan of Treatment Not on file documented as of this encounter Visit Diagnoses Not on filedocumented in this encounter Additional Health Concerns Infection Onset Date Last Indicated Resolved Time COVID-19 Confirmed 01/25/2021 01/25/2021 12:33 AM CDT Assessment Noted Time PHQ-9 Depression Total Score: 1 01/26/20 11:17 AM CDT documented as of this encounter Care Teams Web Production Assistant Relationship Specialty Start Date End Date Lanre Parekh DO [address] [place] [phone] PCP - General FAMILY PRACTICE 06/28/18 09/06/22 documented as of this encounter
--- OUTSIDE RECORDS SUMMARY | 2024-07-09 05:17 | XMS_ITS | Encounter Summary ---
Author Organization [facility] Address [address] [place] [address]. [place], [place] [id number] [place] [address] Care Team Providers Care Medical Scientific Liaison Name Role Phone Lanre Parekh DO Primary Care Provider + Reason for Visit * Reason Comments Abdominal Pain Patient states sympt oms have resolved. Encounter Details Date Type Department Care Team (Late st Contact Info) Description 06/14/2023 2:00 PM BLEACH ANALYST Office Visit [facility] Family & Internal Medicine [address] [phone] Lanre Parekh DO [facility] [place], [place] [id number] Abdominal Pain (Patient states symptoms have resolved. ) Social History Tobacco Use Types Packs/Day [...] Sex Assigned at Male 07/01/2024 9:54 AM BLEACH ANALYST Legal Sex Male 8:28 AM BLEACH ANALYST Gender Identity Male 07/01/2024 9:54 AM BLEACH ANALYST Sexual Orientation Not on file documented as of this encounter Last Filed Vital Signs Vital Sign Reading Time Taken Comments Blood Pressure 112/70 06/14/2023 2:01 PM BLEACH ANALYST Pulse 69 06/14/2023 2:01 PM BLEACH ANALYST Temperature 37.1 ??C (98.8 ??F) 06/14/2023 2:01 PM CS T Respiratory Rate 16 06/14/2023 2:01 PM BLEACH ANALYST Oxygen Saturation 98% 06/14/2023 2:01 PM BLEACH ANALYST Inhaled Oxygen Concentration - - Weight 88.3 kg (194 lb 11.2 oz) 06/14/2023 2:01 PM BLEACH ANALYST Height 172.7 cm (5' 8 ) 06/14/2023 2:01 PM BLEACH ANALYST Body Mass Index 29.6 06/14/2023 2:01 PM BLEACH ANALYST documented in this encounter Progress Notes * Lanre Parekh, DO - 06/14/2023 2:00 PM CST Images from the original note were not included. GENERAL OFFICE VISIT Encounter Date: 06/14/2023 Chief Complaint: 32-year-old male presents for Abdominal Pain (Patient states symptoms have resolved. ) HPI: The patient is being seen for a health maintenance evaluation. General Health: good Dental Health: Sees dentist regularly Vision Health: Wears glasses and Last eye exam < 1 year ago Hearing Health: No hearing problems Immunizations Needed: Influenza and COVID, defers both Weight: Overweight Body mass index is 29.6 kg/m??. Physical Activity: Excersises regularly Prostate Cancer Screening: No family history of prostate cancer Testicular Cancer Screening: Counseled Colorectal Cancer Screening: Sees GI for Crohn's Metabolic Screening: Patient has not been screened previously within the past year. HCV Screening: Patient does meet criteria and needs testing today PHQ-9 Screening Score: 0 Smoking Status: History Smoking Status Never Smokeless Tobacco Never Patient does not meet criteria for Low Dose CT screening Sleep Apnea Risk Factors: Pt is using a CPAP for his JALYN. He wanted to try an oral device, but his insurance would not cover. Review of Systems Constitutional: Negative for fever. Respiratory: Negative for cough. Cardiovascular: Negative for chest pain. Gastrointestinal: See HPI Genitourinary: Negative for dysuria. Musculoskeletal: Negative for myalgias. Skin: Negative for rash. Psychiatric/Behavioral: Negative for depression. Patient Active Problem List Diagnosis Arthritis Crohn's disease ([facility]/HCC) ([facility]/HCC) Crohn's disease of both small and large intestine (CMS/HCC) Generalized abdominal pain Diarrhea due to malabsorption ([facility]/HCC) History of high risk medication treatment [...] least 2 continuous years, flagyl, Asacol, Azathioprine ([id number]), Remicade ([id number], switched for insurance purposes), Hu Iritis Osteoporosis 12/07/2017 Last Assessment & Plan: Please follow Dr. Mckeon's instructions regarding calcium supplementation (notation for 24hr urine calcium provided to patient). Likely on too much calcium supplementationbetween his multivitamin and calcium supplements.This can contribute to kidney stones especially inthe context of ileal Crohn's disease. Past Surgical [...] Other (see comment) Neuropathy Objective: Filed Vitals: 06/14/23 1401 BP: 112/70 Pulse: 69 Resp: 16 Temp: 98.8 ??F (37.1 ??C) TempSrc: Skin SpO2: 98% Weight: 88.3 kg (194 lb 11.2 oz) Height: 1.727 m (5' [...] & Plan: Nic was seen today for abdominal pain. Diagnoses and all orders for this visit: Encounter for preventative adult health care examination Need for hepatitis C screening test - LIPID PANEL; Future - HEPATITIS C ANTIBODY ([facility] ONLY); Future - VENIPUNC ARM DRAW Screening for lipid disorders - LIPID PANEL; Future - HEPATITIS C ANTIBODY ([facility] ONLY); Future - VENIPUNC ARM DRAW Annual physical exam - LIPID PANEL; Future - HEPATITIS C ANTIBODY ([facility] ONLY); Future - VENIPUNC ARM DRAW Screening for endocrine, metabolic and immunity disorder - URIC ACID BLOOD; Future JALYN (obstructive sleep apnea) Osteoporosis without current pathological fracture, unspecified osteoporosis type - VITAMIN D 25 OH ([facility] ONLY); Future Discussion/Summary: No acute symptoms today; continue follow-up with GI and other specialists as recommended. Expected & preventive management discussed, including diet, exercise, screening labs, screening tests, and immunization schedule. Patient refuses COVID and influenza vaccines today. Will order labs per above. Continue CPAP use. Will have patient follow-up in 1 year or sooner if needed. Patient verbalizedunderstanding. Lanre Parekh DO CH ANALYST documented in this encounter Plan of Treatment Not on file documented as of this encounter Procedures Procedure Name Priority Date/Time Associated Diagnosis Comments LIPID PANEL Routine 06/14/2023 2:36 PM BLEACH ANALYST Need for hepatitis C screening test Screening for lipid disorders Annual physical exam HEPATITIS C ANTIBODY Routine 06/14/2023 2:36 PM BLEACH ANALYST Need for hepatitis C screening test Screening for lipid disorders Annual physical exam VITAMIN D, 25 OH Routine 06/14/2023 2:36 PM BLEACH ANALYST Osteoporosis without current pathological fracture, unspecified osteoporosis type URIC ACID BLOOD Routine 06/14/2023 2:36 PM BLEACH ANALYST Screening for endocrine, metabolic and immunity disorder COLLECTION VENOUS BLOOD VENIPUNCTURE Routine 06/14/2023 2:13 PM BLEACH ANALYST Need for hepatitis C screening test Screening for lipid disorders Annual physical exam documented in this encounter Results * (ABNORMAL) VITAMIN D 25 OH ([facility] ONLY) (06/14/2023 2:36 PM BLEACH ANALYST) VITAMIN D 25 HYDROXY TOTAL S/P/B 29.2(L) 30 - 100 NG/ML 06/15/2023 11:44 AM BLEACH ANALYST [facility] Comment: ? DEFICIENT ??<20 ?INSUFFICIENT 20-30 ?SUFFICIENT 30-100 06/14/2023 2:36 PM BLEACH ANALYST us Lanre Parekh DO LABORATORY Final Re sult [facility] [address] [place] [address], [place] [phone] * URIC ACID BLOOD (06/14/2023 2:36 PM BLEACH ANALYST) Pathologist [facility] URIC ACID 6.1 3.5 - 7.2 MG/DL 06/15/2023 1:50 PM BLEACH ANALYST [facility] 06/14/2023 2:36 PM BLEACH ANALYST Lanre Parekh DO LABORATORY Final Re sult [facility] [address] [place] [address], [place] [phone] * HEPATITIS C ANTIBODY ([facility] ONLY) (06/14/2023 2:36 PM BLEACH ANALYST) Pathologist [facility] HEPATITIS C AB NON-REACTI VE NON-REACT JESSICA 06/14/2023 10:36 PM BLEACH ANALYST [facility] Comment: ANTIBODIES TO HCV NOT DETECTED. DOES NOT EXCLUDE THE POSSIBILITY OF EXPOSURE TO HCV. 06/14/2023 2:36 PM BLEACH ANALYST Lanre Parekh DO LABORATORY Final Re sult Performing Organization Address City/[facility] Co de Phone Number [facility] [address] [place] [address], [place] [phone] * (ABNORMAL) LIPID PANEL (06/14/2023 2:36 PM BLEACH ANALYST) CHOLESTEROL 98 <200 MG/DL 06/15/2023 11:44 AM BLEACH ANALYST [facility] TRIGLYCERIDES 121 <150 MG/DL 06/15/2023 11:44 AM BLEACH ANALYST [facility] HDL 23(L) >40 MG/DL 06/15/2023 11:44 AM [facility] LDL-C 51 <100 MG/DL 06/15/2023 11:44 AM BLEACH ANALYST [facility] VLDL CALCULATION 24 5 - 28 MG/DL 06/15/2023 11:44 AM [facility] CHOL/HDL RATIO 4.3(H) 0.0 - 4.0 06/15/2023 11:44 AM [facility]LEACH ANALYST [facility] LDL/HDL 2.2(H) 0.41 - 2.13 06/15/2023 11:44 AM BLEACH ANALYST [facility] [place], [place] NON HDL CHOLESTEROL 75 <140 MG/DL 06/15/2023 11:44 AM BLEACH ANALYST [facility] 06/14/2023 2:36 PM BLEACH ANALYST Lanre Parekh DO LABORATORY Final Re sult [facility] [place] [address] [facility] [place] [address], documented in this encounter Visit Diagnoses Diagnosis Encounter for preventative adult health care examination- Primary Need for hepatitis C screening test Special screening examination for other specified viral diseases Screening for lipid disorders Annual physical exam Routine general medical examination at a health care facility Screening for endocrine, metabolic and immunity disorder JALYN (obstructive sleep apnea) Obstructive sleep apnea (adult) (pediatric) Osteoporosis without current pathological fracture, unspecified osteoporosis type documented in this encounter Additional Health Concerns Assessment Noted Time PHQ-9 Depression Total Score: 1 01/26/20 21 11:17 AM CDT documented as of this encounter Care Teams Medical Scientific Liaison Relationship Specialty Start Date End Date Lanre Parekh DO [address] [place] [id number] PCP - General FAMILY PRACTICE 09/07/22 documented as of this encounter
--- OUTSIDE RECORDS SUMMARY | 2024-07-09 05:17 | XMS_ITS | Encounter Summary ---
Author Organization [facility] Address [address] [place] [address]. [place], [place] [address] [place] [address] Care Team Providers Care Teamsite Developer Name Role Phone Lanre Parekh DO Primary Care Provider + Encounter Details Date Type Department Care Team (Latest Contact Info) Description 04/04/2024 Scan [facility] HEALTH INFO SRVCS Scanned, Doc [...] Sex Assigned at Male 07/01/2024 9:54 AM GLASS BENDER Legal Sex Male 8:28 AM GLASS BENDER Gender Identity Male 07/01/2024 9:54 AM GLASS BENDER Sexual Orientation Not on file documented as of this encounter Plan of Treatment Not on file documented as of this encounter Visit Diagnoses Not on filedocumented in this encounter Additional Health Concerns Assessment Noted Time PHQ-9 Depression Total Score: 1 01/26/20 21 11:17 AM CDT documented as of this encounter Care Teams Teamsite Developer Relationship Specialty Start Date End Date Lanre Parekh DO [address] [place] [address] PCP - General FAMILY PRACTICE 09/07/22 documented as of this encounter
--- OUTSIDE RECORDS SUMMARY | 2024-07-09 05:17 | XMS_ITS | Encounter Summary ---
Author Organization [facility] Address [address] [place] [address]. [place], [place] [address] [place] [address] Care Team Providers Care Regulatory Associate Name Role Phone Lanre Parekh DO Primary Care Provider + Encounter Details Date Type Department Care Team (Latest Contact Info) Description 07/14/2022 Travel Social History Tobacco Use Types Packs/Day [...] Sex Assigned at Male 07/01/2024 9:54 AM PERSONNEL PLACEMENT SPECIALIST Legal Sex Male 8:28 AM PERSONNEL PLACEMENT SPECIALIST Gender Identity Male 07/01/2024 9:54 AM PERSONNEL PLACEMENT SPECIALIST Sexual Orientation Not on file COVID-19 Exposure Response Date Recorded In the last 10 days, have yo u been in contact with someone who was confirmed or suspected to have Coronavirus/COVID-19? Unable to assess 07/14/2022 7:33 AM PERSONNEL PLACEMENT SPECIALIST documented as of this encounter Plan of Treatment Not on file documented as of this encounter Visit Diagnoses Not on filedocumented in this encounter Additional Health Concerns Assessment Noted Time PHQ-9 Depression Total Score: 1 01/26/20 21 11:17 AM CDT documented as of this encounter Care Teams Regulatory Associate Relationship Specialty Start Date End Date Lanre Parekh DO [address] [place] [address] PCP - General FAMILY PRACTICE 06/28/18 09/06/22 documented as of this encounter
--- OUTSIDE RECORDS SUMMARY | 2024-07-09 05:17 | XMS_ITS | Encounter Summary ---
Author Organization [facility] Address [address] [place] [address]. [place], [place] [id number] [place] [address] Care Team Providers Care Filter Tank Operator Name Role Phone Lanre Parekh DO Primary Care Provider + Encounter Details Date Type Department Care Team (Latest Contact Info) Description 04/07/2021 Scan HEALTH INFO SRVCS Scanned, Documents Social [...] Sex Assigned at Male 07/01/2024 9:54 AM PROBATION MANAGER Legal Sex Male 8:28 AM PROBATION MANAGER Gender Identity Male 07/01/2024 9:54 AM PROBATION MANAGER Sexual Orientation Not on file documented as of this encounter Plan of Treatment Not on file documented as of this encounter Visit Diagnoses Not on filedocumented in this encounter Additional Health Concerns Assessment Noted Time PHQ-9 Depression Total Score: 1 01/26/20 21 11:17 AM CDT documented as of this encounter Care Teams Filter Tank Operator Relationship Specialty Start Date End Date Lanre Parekh DO [address] [place] [address] PCP - General FAMILY PRACTICE 06/28/18 09/06/22 documented as of this encounter
--- OUTSIDE RECORDS SUMMARY | 2024-07-09 05:17 | XMS_ITS | Encounter Summary ---
Author Organization [facility] Address [address] [place] [address]. [place], [place] [address] [place] [address] Care Team Providers Care Package Lift Operator Name Role Phone Lanre Parekh DO Primary Care Provider + Reason for Referral * Consultation (Routine) - Closed Specialty Diagnoses / Procedures Referred By Renay t Referred To Contact WOUND CARE / [facility] Wound Care Diagnoses Wound of abdomen Procedures OFFICE/OUTPT VISIT,NEW,LEVL III OFFICE/OUTPT VISIT,NEW,LEVL IV OFFICE/OUTPT VISIT,NEW,LEVL V OFFICE/OUTPT VISIT,EST,LEVL III OFFICE/OUTPT VISIT,EST,LEVL IV OFFICE/OUTPT VISIT,EST,LEVL V Bernadette Roberts NP [facility] [place] [address] Phone: tel: fax: Referral ID Status Reason Start Date Expiration Date V isits Requested Visits Authorized [id number] Closed Specialty Services 09/07/2022 10/07/2023 1 1 SKILLS COACH Reason for Visit * Reason Comments Wound Encounter Details Date Type Department Care Team (Late st Contact Info) Description 09/07/2022 12:20 PM LIFE SKILLS COACH Office Visit [facility] Multispecialty Care - [address] [place] [address] Bernadette Roberts NP Wound Social History Tobacco Use Types Packs/Day Years [...] Sex Assigned at Male 07/01/2024 9:54 AM LIFE SKILLS COACH Legal Sex Male 8:28 AM LIFE SKILLS COACH Gender Identity Male 07/01/2024 9:54 AM LIFE SKILLS COACH Sexual Orientation Not on file COVID-19 Exposure Response Date Recorded In the last 10 days, have yo u been in contact with someone who was confirmed or suspected to have Coronavirus/COVID-19? No / Unsure 09/07/2022 12:06 PM LIFE SKILLS COACH documented as of this encounter Last Filed Vital Signs Vital Sign Reading Time Taken Comments Blood Pressure 93/76 09/07/2022 12:28 PM LIFE SKILLS COACH Pulse 75 09/07/2022 12:28 PM LIFE SKILLS COACH Temperature 37.2 ??C (98.9 ??F) 09/07/2022 1 2:28 PM LIFE SKILLS COACH Respiratory Rate - - Oxygen Saturation 97% 09/07/2022 12: 28 PM LIFE SKILLS COACH Inhaled Oxygen Concentration - - Weight 86.5 kg (190 lb 12.8 oz) 023 12:28 PM LIFE SKILLS COACH Height 172.7 cm (5' 8 ) 09/07/2022 12:2 8 PM LIFE SKILLS COACH Body Mass Index 29.01 09/07/2022 12:28 PM LIFE SKILLS COACH documented in this encounter Patient Instructions * Attachments The following attachments cannot be sent through Care Everywhere. * Wound Care Discharge Instructions (Zimbabwean) documented in this encounter Progress Notes * Bernadette Roberts NP - 09/07/2022 12:20 PM CST OFFICE ACUTE VISIT Encounter Date: 09/07/2022 Chief Complaint: 31-year-old male presents for No chief complaint on file. . HPI: Patient presents today for sore to lower abd. Symptoms started about one week ago. Patient describes symptoms as not healing. Patient attempted to mix wound glue to make a covering of wound so he does not pick at it. This combination caused a skin burn resulting in this wound Patient has since used no medications Noted underlying history of Crohn's disease with Humira use.. He has not taken any antibiotics. He reports that his incision from previous surgery becomes itchy at times for which he picks at them and gets small sores. Review of Systems Skin: wound All other systems reviewed and are negative. Past Medical History: Diagnosis Date ??? Crohn's disease of both small and large intestine ([facility]) 01/25/2017 Overview: Onset: 2004. Phenotype and distribution: Stricturing Primarily involving the ileum with some concern for fistulizing disease though no evidence of fistula penetrating colon lumen during surgery in 2018 Medical therapies: Previously treated with prednisone for at least 2 continuous years, flagyl, Asacol, Azathioprine ([id number]), Remicade ([id number], switched for insurance purposes), Hu ??? Iritis ??? Osteoporosis 12/07/2017 Last Assessment & Plan: Please follow Dr. Mckeon's instructions regarding calcium supplementation (notation for 24hr urine calcium provided to patient). Likely on too much calcium supplementation between his multivitamin and calcium supplements.This can contribute to kidney stones especially in the context of ileal Crohn's disease. Current Outpatient Medications Medication Sig Dispense Refill ??? allopurinol (ZYLOPRIM) 100 MG tablet Take 1 tablet (100 mg total) by mouth daily. 90 tablet 0 ??? balsalazide 750 MG capsule TAKE 2 CAPS ONE DAILY ??? colestipol 1 g tablet Take 1 g by mouth. ??? folic acid 1 MG tablet TK 1 T PO D UTD 3 ??? HUMIRA PEN 40 MG/0.8ML injection Inject 40 mg into the skin every 14 (fourteen) days. ??? mercaptopurine 50 MG tablet Take 50 mg by mouth daily. ??? Multiple Vitamins-Minerals (MULTIVITAMIN ADULT OR) ??? sildenafil (VIAGRA) 100 MG tablet Take 1/2 or 1 tablet ONE hour prior to activity on an empty stomach daily PRN ??? vitamin D3, cholecalciferol, 25 MCG (1000 UT) capsule Take 5,000 Units by mouth daily. No current facility-administered medications for this visit. Allergies Allergen Reactions ??? Metronidazole Other (see comment) Neuropathy Objective: Vitals: 09/07/22 1228 BP: 93/76 Pulse: 75 Temp: 98.9 ??F (37.2 ??C) SpO2: 97% Physical Exam Vitals and nursing note reviewed. Constitutional: Appearance: Normal appearance. HENT: Head: Normocephalic and atraumatic. Cardiovascular: Rate and Rhythm: Normal rate. Pulmonary: Effort: Pulmonary effort is normal. Musculoskeletal: Cervical back: Normal range of motion. Skin: Findings: Wound present. Neurological: Mental Status: He is alert and oriented to person, place, and time. Psychiatric: Mood and Affect: Mood normal. Behavior: Behavior normal. Thought Content: Thought content normal. Judgment: Judgment normal. Assessment/Plan 1. Wound of abdomen Concern for possible secondary infection. Patient start Bactrim and topical Bactroban as prescribed. Encourage patient to keep area clean and dry. Encourage patient to avoid rubbing by belt or other close to the area. Referral placed for wound clinic for additional evaluation and treatment. Patientto follow-up PCP if symptoms persist or worsen. - sulfamethoxazole-trimethoprim (BACTRIM DS) 800-160 MG tablet; Take 1 tablet by mouth 2 (two) times daily for 10 days. Dispense: 20 tablet; Refill: 0 - mupirocin (BACTROBAN) 2 % ointment; Apply topically 3 (three) times daily for 7 days. Dispense: 22 g; Refill: 0 - Ambulatory referral to Wound Clinic Bernadette Roberts APN, BEVERAGE HOST, PROFESSION[employer] SCOUT SKILLS COACH documented in this encounter Plan of Treatment Scheduled Referrals Name Type Priority Associated Diagnoses Orde r Schedule Ambulatory referral to Wound Clinic Referral Routine Wound of abdomen Ordered: 09/07/2022 documented as of this encounter Visit Diagnoses Diagnosis Wound of abdomen- Primary documented in this encounter Additional Health Concerns Assessment Noted Time PHQ-9 Depression Total Score: 1 01/26/20 21 11:17 AM CDT documented as of this encounter Care Teams Package Lift Operator Relationship Specialty Start Date End Date Lanre Parekh DO [address] [place] [id number] PCP - General FAMILY PRACTICE 09/07/22 documented as of this encounter
--- OUTSIDE RECORDS SUMMARY | 2024-07-09 05:17 | XMS_ITS | Encounter Summary ---
Author Organization [facility] Address [address] [place] [address]. [place], [place] [id number] [place] [address] Care Team Providers Care Certified Appliance Service Technician Name Role Phone Lanre Parekh DO Primary Care Provider + Encounter Details Date Type Department Care Team (Latest Contact Info) Description 03/07/2022 Scan HEALTH INFO SRVCS Scanned, Documents Social [...] Sex Assigned at Male 07/01/2024 9:54 AM SPRAYER HAND Legal Sex Male 8:28 AM SPRAYER HAND Gender Identity Male 07/01/2024 9:54 AM SPRAYER HAND Sexual Orientation Not on file documented as of this encounter Plan of Treatment Not on file documented as of this encounter Visit Diagnoses Not on filedocumented in this encounter Additional Health Concerns Assessment Noted Time PHQ-9 Depression Total Score: 1 01/26/20 21 11:17 AM CDT documented as of this encounter Care Teams Certified Appliance Service Technician Relationship Specialty Start Date End Date Lanre Parekh DO [address] [place] [address] PCP - General FAMILY PRACTICE 06/28/18 09/06/22 documented as of this encounter
--- OUTSIDE RECORDS SUMMARY | 2024-07-09 05:17 | XMS_ITS | Encounter Summary ---
Author Organization [facility] Address [address] [place] [address]. [place], [place] [id number] [place] [address] Care Team Providers Care Circuit Clerk Name Role Phone Lanre Parekh Primary Care Provider + Reason for Visit * Reason Comments Colonoscopy Report (SCAN) Encounter Details Date Type Department Care Team (Late st Contact Info) Description 01/23/2022 Scan MG HEALTH INFO SRVCS Scanned, Documents Colonoscopy Report (SCAN) Social History Tobacco Use Types Packs/Day Years [...] Sex Assigned at Male 07/01/2024 9:54 AM TREADLE CUT OFF SAW OPERATOR Legal Sex Male 8:28 AM TREADLE CUT OFF SAW OPERATOR Gender Identity Male 07/01/2024 9:54 AM TREADLE CUT OFF SAW OPERATOR Sexual Orientation Not on file documented as of this encounter Plan of Treatment Not on file documented as of this encounter Procedures Procedure Name Priority Date/Time Associated Diagnosis Comments COLONOSCOPY GENERIC (SCAN ORDER) 01/23/2022 documented in this encounter Results * COLONOSCOPY GENERIC (01/23/2022) 01/23/2022 Narrative 01/23/2022 Ordered by an unspecified provider. us Documents Scanned SCANNING Final Result documented in this encounter Visit Diagnoses Not on filedocumented in this encounter Additional Health Concerns Assessment Noted Time PHQ-9 Depression Total Score: 1 01/26/20 21 11:17 AM CDT documented as of this encounter Care Teams Circuit Clerk Relationship Specialty Start Date End Date Lanre Parekh DO [address] [place] [phone] PCP - General FAMILY PRACTICE 06/28/18 09/06/22 documented as of this encounter
--- OUTSIDE RECORDS SUMMARY | 2024-07-09 05:17 | XMS_ITS | Encounter Summary ---
Author Organization [facility] Address [address] [place] [address]. [place], [place] [address] [place] [address] Care Team Providers Care Dope Mixer Name Role Phone Lanre Parekh DO Primary Care Provider + Encounter Details Date Type Department Care Team (Latest Contact Info) Description 01/17/2022 Scan HEALTH INFO SRVCS Scanned, Documents Social [...] Sex Assigned at Male 07/01/2024 9:54 AM PLASTIC SURGERY MANAGER Legal Sex Male 8:28 AM PLASTIC SURGERY MANAGER Gender Identity Male 07/01/2024 9:54 AM PLASTIC SURGERY MANAGER Sexual Orientation Not on file documented as of this encounter Plan of Treatment Not on file documented as of this encounter Visit Diagnoses Not on filedocumented in this encounter Additional Health Concerns Assessment Noted Time PHQ-9 Depression Total Score: 1 01/26/20 21 11:17 AM CDT documented as of this encounter Care Teams Dope Mixer Relationship Specialty Start Date End Date Lanre Parekh DO [address] [place] [address] PCP - General FAMILY PRACTICE 06/28/18 09/06/22 documented as of this encounter
--- OUTSIDE RECORDS SUMMARY | 2024-07-09 05:17 | XMS_ITS | Encounter Summary ---
Author Organization [facility] Address [address] [place] [address]. [place], [place] [address] [place] [address] Care Team Providers Care Abrasive Mixer Name Role Phone Lanre Parekh DO Primary Care Provider + Lanre Parekh DO Primary Care Provider + Encounter Details Date Type Department Care Team (Late st Contact Info) Description 01/25/2021 Flinjat Message Enc [facility] Family & Internal Medicine [facility] [address] [place] [address] Lanre Parekh DO [address] [place] [address] Follow Up/Update Social History Tobacco [...] Sex Assigned at Male 07/01/2024 9:54 AM NAUMKEAG OPERATOR Legal Sex Male 8:28 AM NAUMKEAG OPERATOR Gender Identity Male 07/01/2024 9:54 AM NAUMKEAG OPERATOR Sexual Orientation Not on file documented as of this encounter Progress Notes * Lanre Parekh DO - 01/25/2021 2:56 PM CDT Please enter into chart. documented in this encounter Plan of Treatment Not on file documented as of this encounter Visit Diagnoses Not on filedocumented in this encounter Additional Health Concerns Infection Onset Date Last Indicated Resolved Time COVID-19 Rule Out 01/25/2021 01/25/2021 01/25/2021 12:15 PM CDT COVID-19 Confirmed 01/25/2021 01/25/2021 12:33 AM CDT COVID-19 Rule Out 07/01/2024 07/01/2024 07/01/2024 10:33 AM NAUMKEAG OPERATOR COVID-19 Rule Out 07/01/2024 07/01/2024 07/02/2024 4:06 PM NAUMKEAG OPERATOR Assessment Noted Time PHQ-9 Depression Total Score: 1 01/26/20 21 11:17 AM CDT documented as of this encounter Care Teams Abrasive Mixer Relationship Specialty Start Date End Date Lanre Parekh DO [address] [place] [address] PCP - General FAMILY PRACTICE 06/28/18 09/06/22 Lanre Parekh DO [address] [place] [address] PCP - General FAMILY PRACTICE 09/07/22 documented as of this encounter
--- OUTSIDE RECORDS SUMMARY | 2024-07-09 05:17 | XMS_ITS | Encounter Summary ---
Author Organization [facility] Address [address] [place] [address]. [place], [place] [address] [place] [address] Care Team Providers Care Front Desk Auxiliary Name Role Phone Lanre Parekh DO Primary Care Provider + Encounter Details Date Type Department Care Team (Latest Contact Info) Description 02/26/2023 Scan [facility] HEALTH INFO SRVCS Scanned, Doc [...] Sex Assigned at Male 07/01/2024 9:54 AM EQUALIZER OPERATOR Legal Sex Male 8:28 AM EQUALIZER OPERATOR Gender Identity Male 07/01/2024 9:54 AM EQUALIZER OPERATOR Sexual Orientation Not on file documented as of this encounter Plan of Treatment Not on file documented as of this encounter Visit Diagnoses Not on filedocumented in this encounter Additional Health Concerns Assessment Noted Time PHQ-9 Depression Total Score: 1 01/26/20 21 11:17 AM CDT documented as of this encounter Care Teams Front Desk Auxiliary Relationship Specialty Start Date End Date Lanre Parekh DO [address] [place] [address] PCP - General FAMILY PRACTICE 09/07/22 documented as of this encounter
--- OUTSIDE RECORDS SUMMARY | 2024-07-09 05:17 | XMS_ITS | Encounter Summary ---
Author Organization [facility] Address [address] [place] [address]. [place], [place] [address] [place] [address] Care Team Providers Care Boiler Service Technician Name Role Phone Lanre Parekh DO Primary Care Provider + Reason for Visit * Reason Onset Date Comments Orders 06/07/2023 Encounter Details Date Type Department Care Team (Late st Contact Info) Description 06/07/2023 Telephone [facility] Family & Internal Medicine [facility] [address] [place] [address] Lanre Parekh DO [address] [place] [address] Orders Social History Tobacco Use Types Packs/Day Years [...] Assigned at Male 07/01/2024 9:54 AM SENIOR PHP DEVELOPER Legal Sex Male 8:28 AM SENIOR PHP DEVELOPER Gender Identity Male 07/01/2024 9:54 AM SENIOR PHP DEVELOPER Sexual Orientation Not on file documented as of this encounter Progress Notes * Johanny Martin MA - 06/07/2023 4:05 PM CST Pt is scheduled next at 2. Pt has not contacted his GI Dr. yet, but he states he will. Request for records faxed to [facility] in [place] at [phone]. OR PHP DEVELOPER * Lanre Parekh DO - 06/07/2023 3:49 PM CST Let's schedule him for next at 2:00 in the interim. Has pt reached out to GI given his Crohn's diagnosis? If he has not, I would recommend this as well. If records not already requested, please do so. OR PHP DEVELOPER * Randi Zimmer MA - 06/07/2023 3:40 PM CST Muscle aches, chills, headache, diarrhea, nausea, mild abd pain. The patient states the abd pain moves around his abd. The patient states he was tested for covid, flu and strep. The tests were negative. Patient would like to use [employer] if labs are ordered. Next opening for patient is on Sunday. Patient states his sx are about the same. OR PHP DEVELOPER * Darleen Gonzalez - 06/07/2023 12:19 PM CST Pt went to [facility] 06/07/23. They informed him to contact PCP to receive orders for stool testing. Unclear as to why. Please advise. OR PHP DEVELOPER documented in this encounter Plan of Treatment Not on file documented as of this encounter Visit Diagnoses Not on filedocumented in this encounter Additional Health Concerns Assessment Noted Time PHQ-9 Depression Total Score: 1 01/26/20 21 11:17 AM CDT documented as of this encounter Care Teams Boiler Service Technician Relationship Specialty Start Date End Date Lanre Parekh DO [facility] [place] [address] PCP - General FAMILY PRACTICE 09/07/22 documented as of this encounter
--- OUTSIDE RECORDS SUMMARY | 2024-07-09 05:17 | XMS_ITS | Encounter Summary ---
Author Organization [facility] Address [address] [place] [address]. [place] [address] [place] [address] Care Team Providers Care Reference Assistant Name Role Phone Lanre Parekh Primary Care Provider + Reason for Visit * Reason Comments Lump Lump back of head.Ri ght ear pain. Sore throat X2 days Encounter Details Date Type Department Care Team (Late st Contact Info) Description 09/24/2023 3:40 PM CDT Office Visit [facility] Family & Internal Medicine [facility] [id number] [place] [phone] [place] [address] [place] [address] Lump (Lump back of head./Right ear pain. Sore throat X2 days) Social History Tobacco Use Types Packs/Day Years [...] Sex Assigned at Male 07/01/2024 9:54 AM MARKET RELATIONSHIP MANAGER Legal Sex Male 8:28 AM MARKET RELATIONSHIP MANAGER Gender Identity Male 07/01/2024 9:54 AM MARKET RELATIONSHIP MANAGER Sexual Orientation Not on file documented as of this encounter Last Filed Vital Signs Vital Sign Reading Time Taken Comments Blood Pressure 106/77 09/24/2023 3:29 PM CDT Pulse 88 09/24/2023 3:29 PM CDT Temperature 37.3 ??C (99.2 ??F) 09/24/2023 3:29 PM CD T Respiratory Rate 20 09/24/2023 3:29 PM CDT Oxygen Saturation 97% 09/24/2023 3:29 PM CDT Inhaled Oxygen Concentration - - Weight 89.8 kg (198 lb) 09/24/2023 3:29 PM CDT Height 172.7 cm (5' 8 ) 09/24/2023 3:29 PM CDT Body Mass Index 30.11 09/24/2023 3:29 PM CDT documented in this encounter Patient Instructions * Attachments The following attachments cannot be sent through Care Everywhere. * Strep throat in adults (Taiwanese) documented in this encounter Progress Notes * CECY Barry - 09/24/2023 3:40 PM CDT Images from the original note were not included. _ Reason for Visit: Lump (Lump back of head./Right ear pain. Sore throat X2 days) History of Present Illness: FAISAL Teran is a 32-year-old male here for patient or evaluationthrough the walk-in clinic for symptoms of upper respiratory infection to include nasal congestion,severe sore throat, without headache. Also having issues with right ear pain. Patient denies symptoms of visual disturbance or vomiting. Patient has noticed a low grade fever. Patient has not had much of a cough with out wheezing. Patient denies shortness of breath. Patient has not had loose stools. Patient has been symptomatic for 2 days and is not improving with symptoms. ROS: Review of Systems Feeling ill. Denies vision or hearing problems. Denies dysphagia, heartburn or indigestion. No dyspnea or chest pain on exertion. No nausea, abdominal pain, change in bowel habits, black or bloody stools. No urinary tract symptoms. No muscle or joint aches or pains. No foot or leg edema. No numbness, tingling,or weakness. No anxiety or depressive symptoms, Sleeping well. No significant weight gain or loss. Positive fatigue. Medications: Outpatient Medications Marked as Taking for the 3/25/24 encounter (Office Visit) with CECY Barry Medication Sig Dispense Refill allopurinol (ZYLOPRIM) 100 [...] capsules (5,000 Units total) by mouth daily. Review of patient's allergies indicates: Allergen Reactions Metronidazole Other (see comment) Neuropathy Past Medical History: Diagnosis Date Crohn's disease of both small and large intestine ([facility]) 01/25/2017 Overview: Onset: 2004. Phenotype and distribution: Stricturing Primarily involving the ileum with some concern for fistulizing disease though no evidence of fistula penetrating colon lumen during surgery in 2018 Medical therapies: Previously treated with prednisone for at least 2 continuous years, flagyl, Asacol, Azathioprine ([id number]), Remicade ([id number], switched for insurance purposes), Hu Iritis Osteoporosis [...] HC COLON RESECTION 12/2017 Likely ilioresection VASECTOMY Social History Tobacco Use Smoking status: Never Passive exposure: Never Smokeless tobacco: Never Vaping Use Vaping Use: Never used Substance Use Topics Alcohol use: Yes Alcohol/week: 11.7 standard drinks of alcohol Types: 7 Glasses of wine per week Comment: glass of wine nightly Drug use: Not Currently Family History Problem Relation Name Age of Onset Hypertension Mother Psychiatry Mother Hypertension Father Cancer Paternal Grandfather Family Status Relation Name Status Mother at age 64 Father Alive PGF (Not Specified) Physical Exam Constitutional: Patient is oriented to person, place, and time. Patient appears well-developed and well-nourished. HENT: Right Ear: External ear normal. The right TM is bulging. Left Ear: External ear normal. Head: Normocephalic. There is a couple postauricular nodes noted on the right side of patient's scalp area. No frontal sinus tenderness Nose: Nose normal. Turbinates are swollen Mouth/Throat: Oropharynx is clear and moist. Positive postnasal drainage tonsils are enlarged and red. Eyes: Pupils are equal, round, and reactive to light. Neck: No JVD present. No thyromegaly present. No nuchal rigidity Cardiovascular: Normal rate, regular rhythm, normal heart sounds and intact distal pulses. No murmur heard. Pulmonary/Chest: No respiratory distress. Patient has no wheezes. Patient has no rales. Patient exhibits no tenderness. Abdominal: Patient exhibits no distension and no mass. There is no tenderness. There is no rebound and no guarding. Musculoskeletal: Normal range of motion. Patient exhibits no edema, tenderness or deformity. Lymphadenopathy: Patient has positive cervical adenopathy. Neurological: Patient is alert and oriented to person, place, and time. Skin: No rash noted. No erythema. Psychiatric: Patient has a normal mood and affect. The behavior is normal. Thought content normal. No data to display Vitals: 09/24/23 1529 Patient Position: Sitting BP Location: Left arm Cuff size: Adult Long BP: 106/77 Pulse: 88 Body mass index is 30.11 kg/m??. Assessment and Plan Encounter Diagnose(s) ICD-10-CM SNOMED CT(R) 1. Sore throat J02.9 SORE THROAT RAPID STREP A azithromycin (ZITHROMAX Z-GABRIEL) 250 MG tablet 2. Strep throat J02.0 STREPTOCOCCAL SORE THROAT azithromycin (ZITHROMAX Z-GABRIEL) 250 MG tablet 3. Tonsillitis J03.90 TONSILLITIS azithromycin (ZITHROMAX Z-GABRIEL) 250 MG tablet methylPREDNISolone acetate (DEPO-Medrol) injection 60 mg 1. Sore throat - RAPID STREP A We discussed treatment option with steroid to help with the inflammation and swelling in his tonsils and postauricular nodes. We also discussed using Zithromax since he has been on amoxicillin twice in the recent future for the same illness. He states that they have had difficulty getting strep outof his household. Orders Placed This Encounter azithromycin (ZITHROMAX Z-GABRIEL) 250 MG tablet methylPREDNISolone acetate (DEPO-Medrol) injection 60 mg RAPID STREP A Patient was told to push liquids and get lots of rest. Patient was told to use Tylenol for fever. Patient was told that if symptoms do not improve to utilize the emergency room, call their PCP, or follow back up with the walk-in clinic. If patient needs any additional time off not discussed and spelled out in a work release at this office visit they will need to contact the PCP or be seen in the walk in clinic. Patient should follow annual wellness exams recommended for age and sex of patient. Items to consider but not limited included yearly annual fasting labs, colonscopy or cologuard when indicated. PSA and prostate for males. Mammogram and female exam for females, Portions of this note were dictated using [employer] speech recognition software. Occasional wrong wordor sound-alike substitutions may have occurred due to the inherent limitations of voice recognition software. Please read the chart carefully and recognize, using context, where the substitutions may have occurred. Anjana Elkins PA-C evaluated and Dr. Shandra Goss reviewed and agrees with plan. documented in this encounter Plan of Treatment Not on file documented as of this encounter Procedures Procedure Name Priority Date/Time Associated Diagnosis Comments RAPID STREP A Routine 09/24/2023 Sore throat documented in this encounter Results * (ABNORMAL) RAPID STREP A (09/24/2023) RAPID STREP TEST POSITIVE(A ) NEGATIVE [id number] TROXLER OSCAREBLU Internal Control: VALID VALID [id number] JENNIFERER BLU HERRERA STRUCTURE OF ANTERIOR PORTION OF NECK / Unknown 09/24/2023 Anjana SAM MICROBIOLOGY - GENERAL ORDER YOSELYN Edited Result - Final -[id number] NAKIA [place] [address] [place] [address], documented in this encounter Visit Diagnoses Diagnosis Sore throat- Primary Acute pharyngitis Strep throat Streptococcal sore throat Tonsillitis Acute tonsillitis documented in this encounter Administered Medications Inactive Administered Medications - up to 3 most recent administrations Medication Order MAR Action Action Date Dose Rate Site methylPREDNISolone acetate (DEPO-Medrol) injection 60 mg 60 mg, Intramuscular, Once, 1 dose, On 09/24/23 at 1630, Varunke WellIndications:Tonsilli tis Given 09/24/2023 4:10 PM CDT 60 mg Left Dorsal Gluteal documented in this encounter Additional Health Concerns Assessment Noted Time PHQ-9 Depression Total Score: 1 01/26/20 21 11:17 AM CDT documented as of this encounter Care Teams Reference Assistant Relationship Specialty Start Date End Date Lanre Parekh DO [address] [place] [address] PCP - General FAMILY PRACTICE 09/07/22 documented as of this encounter
--- OUTSIDE RECORDS SUMMARY | 2024-07-09 05:17 | XMS_ITS | Encounter Summary ---
Author Organization [facility] Address [address] [place] [address]. [place], [place] [address] [place] [address] Care Team Providers Care Martial Arts Instructor Name Role Phone Lanre Parekh DO Primary Care Provider + Reason for Visit * Reason Onset Date Comments Downtime Visit 03/16/2023 Encounter Details Date Type Department Care Team (Late st Contact Info) Description 02/26/2023 2:40 PM CDT Office Visit [facility] Family & Internal Medicine [place] [address] [place] [address] Lanre Parekh DO [facility] [place], [place] [phone] Downtime Visit Social History Tobacco Use Types Packs/Day Years [...] Sex Assigned at Male 07/01/2024 9:54 AM LOG SKIDDER Legal Sex Male 8:28 AM LOG SKIDDER Gender Identity Male 07/01/2024 9:54 AM LOG SKIDDER Sexual Orientation Not on file documented as of this encounter Last Filed Vital Signs Vital Sign Reading Time Taken Comments Blood Pressure 116/74 02/26/2023 1:49 PM CDT Pulse - - Temperature - - Respiratory Rate - - Oxygen Saturation - - Inhaled Oxygen Concentration - - Weight - - Height - - Body Mass Index - - documented in this encounter Progress Notes * Danyelle Wisdom MD - 07/16/2023 10:29 AM CST Additional documentation from 02/25/23-03/13/23 may be found under the media tab. SKIDDER * Deena Rudolph RN - 02/26/2023 2:40 PM CDT Refer to scanned documents for care provided during this time. documented in this encounter Plan of Treatment Not on file documented as of this encounter Visit Diagnoses Diagnosis DOWNTIME VISIT- Primary documented in this encounter Additional Health Concerns Assessment Noted Time PHQ-9 Depression Total Score: 1 01/26/20 21 11:17 AM CDT documented as of this encounter Care Teams Martial Arts Instructor Relationship Specialty Start Date End Date Lanre Parekh DO [address] [place], [place] [phone] PCP - General FAMILY PRACTICE 09/07/22 documented as of this encounter
--- OUTSIDE RECORDS SUMMARY | 2024-07-09 05:17 | XMS_ITS | Encounter Summary ---
Author Organization [facility] Address [address] [place] [address]. [place], [place] [address] [place] [address] Care Team Providers Care Terry Cloth Cutter Hand Name Role Phone Lanre Parekh DO Primary Care Provider + Encounter Details Date Type Department Care Team (Latest Contact Info) Description 11/03/2022 Scan [facility] HEALTH INFO SRVCS Scanned, Doc [...] Sex Assigned at Male 07/01/2024 9:54 AM CAP LINING MACHINE OPERATOR Legal Sex Male 8:28 AM CAP LINING MACHINE OPERATOR Gender Identity Male 07/01/2024 9:54 AM CAP LINING MACHINE OPERATOR Sexual Orientation Not on file documented as of this encounter Plan of Treatment Not on file documented as of this encounter Visit Diagnoses Not on filedocumented in this encounter Additional Health Concerns Assessment Noted Time PHQ-9 Depression Total Score: 1 01/26/20 21 11:17 AM CDT documented as of this encounter Care Teams Terry Cloth Cutter Hand Relationship Specialty Start Date End Date Lanre Parekh DO [address] [place] [address] PCP - General FAMILY PRACTICE 09/07/22 documented as of this encounter
--- OUTSIDE RECORDS SUMMARY | 2024-07-09 05:18 | XMS_ITS | Encounter Summary ---
Author Organization [facility] Address [address] [place] [address]. [place], [place] [address] [place] [address] Care Team Providers Care Weight Loss Sales Consultant Name Role Phone Lanre Parekh DO Primary Care Provider + Reason for Visit * Reason Onset Date Comments Lab Results 06/16/2019 Encounter Details Date Type Department Care Team (Late st Contact Info) Description 06/16/2019 Telephone [facility] Group Family & Internal Medicine [facility] [address] [place] [address] Lanre Parekh DO [address] [place], [place] [id number] Lab Results Social History Tobacco Use Types Packs/Day Years Used Date Smoking Tobacco: Never Smokeless Tobacco: Never Alcohol Use Standard Drinks/Week Comments Yes 0 (1 standard drink = 0.6 oz pur e alcohol) AUDIT-C Answer Date Recorded Frequency of Alcohol Consumption Monthly or less 07/05/2018 Average Number of Drinks Not on file 019 Frequency of Binge Drinking Not on file 09/2018 Sex and Gender Information Value Date Recorded Sex Assigned at Male 07/01/2024 9:54 AM TRUCKING MANAGER Legal Sex Male 8:28 AM TRUCKING MANAGER Gender Identity Male 07/01/2024 9:54 AM TRUCKING MANAGER Sexual Orientation Not on file documented as of this encounter Progress Notes * Nitza Olivares MA - 06/16/2019 9:09 AM CST Spoke w/ pt and informed of the following. KING MANAGER * Lanre Parekh DO - 06/16/2019 8:33 AM CST No, I mean he has medications that can cause the enlargement of the RBCs, not specifically that he is on medicines for sleep apnea. Please encourage him to continue using it; it can take a bit of time to get used to it. KING MANAGER * Nitza Olivares MA - 06/16/2019 8:22 AM CST Spoke with pt and informed of the following. Pt states that he isn't taking any meds for sleep apnea at this time. He is getting fed up w/ his machine. I told pt that I will relay this to you. KING MANAGER * Ntiza Olivares MA - 06/16/2019 8:21 AM CST ----- Message from Lanre Parekh DO sent at 06/15/2019 5:49 PM TRUCKING MANAGER ----- Pt's Hgb/Hct is actually WNL at this time, although it is on the low side of normal. He has some enlargement of his RBCs, which is likely related to his medications and sleep apnea. Will monitor thisat this time and recheck next year. KING MANAGER documented in this encounter Plan of Treatment Not on file documented as of this encounter Visit Diagnoses Not on filedocumented in this encounter Care Teams Weight Loss Sales Consultant Relationship Specialty Start Date End Date Lanre Parekh DO [address] [place] [address] PCP - General FAMILY PRACTICE 06/28/18 09/06/22 documented as of this encounter
--- OUTSIDE RECORDS SUMMARY | 2024-07-09 05:18 | XMS_ITS | Encounter Summary ---
Author Organization [facility] Address [address] [place] [address]. [place], [place] [phone] [place] [address] Care Team Providers Care Fondant Machine Operator Name Role Phone Lanre Parekh DO Primary Care Provider + Reason for Visit * Reason Onset Date Comments Follow Up Call 12/20/2018 Encounter Details Date Type Department Care Team (Late st Contact Info) Description 12/20/2018 Telephone [facility] Group Family & Internal Medicine [facility] [address] [place] [address] Lanre Parekh DO [address] [place], [place] [phone] Follow Up Call Social History Tobacco Use Types Packs/Day Years [...] Sex Assigned at Male 07/01/2024 9:54 AM COMMUNICATIONS ENGINEERING TECHNICIAN Legal Sex Male 8:28 AM COMMUNICATIONS ENGINEERING TECHNICIAN Gender Identity Male 07/01/2024 9:54 AM COMMUNICATIONS ENGINEERING TECHNICIAN Sexual Orientation Not on file documented as of this encounter Progress Notes * Margie Sullivan RN - 12/20/2018 12:07 PM CDT Needs f/u appointment for sleep study results. Appointment made 01/17 at 220pm. documented in this encounter Plan of Treatment Not on file documented as of this encounter Visit Diagnoses Not on filedocumented in this encounter Care Teams Fondant Machine Operator Relationship Specialty Start Date End Date Lanre Parekh DO [address] [place] [address] PCP - General FAMILY PRACTICE 06/28/18 09/06/22 documented as of this encounter
--- OUTSIDE RECORDS SUMMARY | 2024-07-09 05:18 | XMS_ITS | Encounter Summary ---
Author Organization [facility] Address [address] [place] [address]. [place], [place] [id number] [place] [address] Care Team Providers Care Disability Examiner Name Role Phone Lanre Parekh DO Primary Care Provider + Reason for Visit * Reason Comments Consent Doc (SCAN)* CE Auth Form Encounter Details Date Type Department Care Team (Late st Contact Info) Description 07/05/2018 Scan HEALTH INFO SRVCS Scanned, Documents Consent Doc (SCAN)* (CE Auth Form) Social History Tobacco Use Types Packs/Day Years [...] Sex Assigned at Male 07/01/2024 9:54 AM ADVISER SALES Legal Sex Male 8:28 AM ADVISER SALES Gender Identity Male 07/01/2024 9:54 AM ADVISER SALES Sexual Orientation Not on file documented as of this encounter Plan of Treatment Not on file documented as of this encounter Visit Diagnoses Not on filedocumented in this encounter Care Teams Disability Examiner Relationship Specialty Start Date End Date Lanre Parekh DO [address] [place] [address] PCP - General FAMILY PRACTICE 06/28/18 09/06/22 documented as of this encounter
--- OUTSIDE RECORDS SUMMARY | 2024-07-09 05:18 | XMS_ITS | Encounter Summary ---
Author Organization [facility] Address [address] [place] [address]. [place], [place] [id number] [place] [address] Care Team Providers Care Bread Dough Mixer Name Role Phone Lanre Parekh DO Primary Care Provider + Reason for Visit * Reason Onset Date Comments Follow Up Call 08/13/2018 Encounter Details Date Type Department Care Team (Late st Contact Info) Description 08/13/2018 Telephone [facility] Medical Group Family & Internal Medicine [facility] [address] [place] [address] Lanre Parekh DO [address] [place], [place] [phone] Follow Up Call Social History Tobacco Use [...] Sex Assigned at Male 07/01/2024 9:54 AM INFORMATION LEAD Legal Sex Male 8:28 AM INFORMATION LEAD Gender Identity Male 07/01/2024 9:54 AM INFORMATION LEAD Sexual Orientation Not on file documented as of this encounter Progress Notes * Lanre Parekh DO - 08/14/2018 9:00 AM CST Noted. RMATION LEAD * Margie Sullivan RN - 08/14/2018 8:57 AM CST Yes he saw the ENT, nothing was concerning. Still has inflammation, no pain. Swallowing fine. No drainage noted. Encouraged to call back if no improvement in 1-2 weeks. RMATION LEAD * Maribel Mccann MA - 08/13/2018 4:55 PM CST [id number] RMATION LEAD * Lanre Parekh DO - 08/13/2018 4:08 PM CST Has pt seen ENT yet regarding his tonsillitis? RMATION LEAD documented in this encounter Plan of Treatment Not on file documented as of this encounter Visit Diagnoses Not on filedocumented in this encounter Care Teams Bread Dough Mixer Relationship Specialty Start Date End Date Lanre Parekh DO [address] [place], [place] [phone] PCP - General FAMILY PRACTICE 06/28/18 09/06/22 documented as of this encounter
--- OUTSIDE RECORDS SUMMARY | 2024-07-09 05:18 | XMS_ITS | Encounter Summary ---
Author Organization [facility] Address [address] [place] [address]. [place], [place] [address] [place] [address] Care Team Providers Care Coupon Redemption Clerk Name Role Phone Lanre Parekh DO Primary Care Provider + Reason for Visit * Reason Comments Headache x 2 days Body Aches Encounter Details Date Type Department Care Team (Late st Contact Info) Description 01/25/2021 11:00 AM CDT Telemedicine [facility] Medical Group Family & Internal Medicine [address] [phone] Lanre Parekh DO Formerly named [facility] [place] [address] Headache (x 2 days); Body Aches Social History Tobacco Use Types Packs/Day Years [...] Sex Assigned at Male 07/01/2024 9:54 AM CATHOLIC PRIEST Legal Sex Male 8:28 AM CATHOLIC PRIEST Gender Identity Male 07/01/2024 9:54 AM CATHOLIC PRIEST Sexual Orientation Not on file documented as of this encounter Progress Notes * Lanre Parekh DO - 01/25/2021 11:00 AM CDT Images from the original note were not included. GENERAL OFFICE VISIT Encounter Date: 01/25/2021 I introduced and identified myself, received verbal consent from the patient to proceed with this video visit and made the patient aware that the same confidentiality and telephone information clerk practices apply. The patient joined the video visit from Home. I completed the virtual visit from Office. The following clinical staff helped with this visit MA: Maribel Mccann. Total Time Spent in Minutes: 10 Chief Complaint: 30-year-old male presents for Headache (x 2 days) and Body Aches HPI: Patient states symptoms have been present for 2 days. Symptoms include headache, congestion, sore throat, feverish, night sweats, fatigue, and body aches. Pertinent negatives include Abdominal Pain, N/V and SOB. Patient has sick contacts in his who has COVID. OTC medications tried include Tylenol. Review of Systems Constitutional: Positive for chills, fatigue and fever. HENT: Positive for congestion and sore throat. Negative for sinus pressure. Respiratory: Negative for cough and shortness of breath. Cardiovascular: Negative for chest pain. Gastrointestinal: Negative for abdominal pain, diarrhea, nausea and vomiting. Musculoskeletal: Positive for myalgias. Skin: Negative for rash. Neurological: Positive for headaches. Patient Active Problem List Diagnosis ??? Arthritis ??? Crohn's disease (CMS/HCC) ??? Crohn's disease of both small and large intestine (CMS/HCC) ??? Generalized abdominal pain ??? Diarrhea due to malabsorption ??? History of high risk medication treatment ??? Iritis ??? Osteoporosis ??? Chronic pharyngitis Past Medical History: Diagnosis Date ??? Crohn's disease of both small and large intestine (CMS/HCC) 01/25/2017 Overview: Onset: 2005. Phenotype and distribution: Stricturing Primarily involving the ileum with some concern for fistulizing disease though no evidence of fistula penetrating colon lumen during surgery in 2018 Medical therapies: Previously treated with prednisone for at least 2 continuous years, flagyl, Asacol, Azathioprine ([id number]), Remicade ([id number], switched for insurance purposes), Hu ??? Iritis [...] file Tobacco Use ??? Smoking status: Never Smoker ??? Smokeless tobacco: Never Used Substance and Sexual Activity ??? Alcohol use: Yes Comment: 1-2 per week ??? Drug use: Not Currently ??? Sexual activity: Yes Other Topics Concern ??? Not on file Social History Narrative ??? Not on file Social Determinants of Health Financial Resource Strain: ??? Difficulty of Paying Living Expenses: Food Insecurity: ??? Worried About Running Out of Food in the Last Year: ??? Ran Out of Food in the Last Year: Transportation Needs: ??? Lack of Transportation (Medical): ??? Lack of Transportation (Non-Medical): Physical Activity: ??? Days of Exercise per Week: ??? Minutes of Exercise per Session: Stress: ??? Feeling of Stress : Social Connections: ??? Frequency of Communication with Friends and Family: ??? Frequency of Social Gatherings with Friends and Family: ??? Attends Cheondoism Services: ??? Active Member of Clubs or Organizations: ??? Attends Club or Organization Meetings: ??? Marital Status: Intimate Partner Violence: ??? Fear of Current or Ex-Partner: ??? Emotionally Abused: ??? Physically Abused: ??? Sexually Abused: Immunization History Administered Date(s) Administered ??? Dtap (Generic) 05/10/1990 ??? Pneumococcal (Pneumovax 23) 05/17/2017 ??? Pneumococcal (Prevnar 13) 01/25/2017 ??? Tdap (Generic) 02/09/2014 Current Outpatient Medications Medication Sig Dispense Refill ??? azithromycin (ZITHROMAX) 250 MG tablet Take 2 tabs daily the first day, then take 1 tab daily 6tablet 0 ??? balsalazide 750 MG capsule TAKE 2 CAPS ONE DAILY ??? calcium carbonate (CALCIUM 600) 600 MG tablet every morning. ??? Cholecalciferol (D3-1000) 1000 units capsule Take 5,000 Units by mouth daily. ??? colestipol 1 g tablet Take 1 g by mouth. ??? folic acid 1 MG tablet TK 1 T PO D UTD 3 ??? HUMIRA PEN 40 MG/0.8ML injection Inject 40 mg into the skin every 14 (fourteen) days. ??? mercaptopurine 50 MG tablet Take 50 mg by mouth daily. ??? Multiple Vitamins-Minerals (MULTIVITAMIN ADULT OR) ??? [place]-3 Fatty Acids ([employer] FISH OIL) 1000 MG Cap ??? Probiotic Product (PROBIOTIC ADVANCED OR) ??? Turmeric Powder Take 1,500 mg by mouth. ??? allopurinol 100 MG tablet ??? vitamin D2, ergocalciferol, 83171 UNITS capsule Take 50,000 Units by mouth every 14 (fourteen) days. No current facility-administered medications for this visit. Current Outpatient Medications on File Prior to Visit Medication Sig ??? balsalazide 750 MG capsule TAKE 2 CAPS ONE DAILY ??? calcium carbonate (CALCIUM 600) 600 MG tablet every morning. ??? Cholecalciferol (D3-1000) 1000 units capsule Take 5,000 Units by mouth daily. ??? colestipol 1 g tablet Take 1 g by mouth. ??? folic acid 1 MG tablet TK 1 T PO D UTD ??? HUMIRA PEN 40 MG/0.8ML injection Inject 40 mg into the skin every 14 (fourteen) days. ??? mercaptopurine 50 MG tablet Take 50 mg by mouth daily. ??? Multiple Vitamins-Minerals (MULTIVITAMIN ADULT OR) ??? [place]-3 Fatty Acids ([employer]S FISH OIL) 1000 MG Cap ??? Probiotic Product (PROBIOTIC ADVANCED OR) ??? Turmeric Powder Take 1,500 mg by mouth. ??? allopurinol 100 MG tablet ??? vitamin D2, ergocalciferol, 98978 UNITS capsule Take 50,000 Units by mouth every 14 (fourteen) days. No current facility-administered medications on file prior to visit. Allergies Allergen Reactions ??? Metronidazole Other (see comment) Neuropathy Objective: As this is a virtual visit, no formal vitals are able to be obtained. No home vitals or testing device readings are relevant to this visit. Physical Exam Constitutional: He is oriented to person, place, and time and well-developed, well-nourished, and in no distress. HENT: Head: Normocephalic and atraumatic. Right Ear: External ear normal. Left Ear: External ear normal. Nose: Nose normal. Mouth/Throat: Oropharynx is clear and moist. Eyes: Conjunctivae are normal. No scleral icterus. Pulmonary/Chest: Effort normal. No audible abnormalities noted today Neurological: He is alert and oriented to person, place, and time. Skin: Skin is dry. No rash noted. Psychiatric: Mood and affect normal. Nursing note and vitals reviewed. Assessment & Plan: Nic was seen today for headache and body aches. Diagnoses and all orders for this visit: Fatigue, unspecified type - CORONAVIRUS (COVID 19) PCR ([facility]); Future - CORONAVIRUS (COVID-19) ANTIGEN - azithromycin (ZITHROMAX) 250 MG tablet; Take 2 tabs daily the first day, then take 1 tab daily - CORONAVIRUS (COVID 19) PCR ([facility]) Body aches - CORONAVIRUS (COVID 19) PCR ([facility]); Future - CORONAVIRUS (COVID-19) ANTIGEN - azithromycin (ZITHROMAX) 250 MG tablet; Take 2 tabs daily the first day, then take 1 tab daily - CORONAVIRUS (COVID 19) PCR ([facility]) Discussion/Summary: Will need rapid and PCR COVID testing. Will send out azithromycin as per above. Conservative treatment discussed. Quarantine guidelines discussed. Pt v/u. Lanre Parekh DO documented in this encounter Plan of Treatment Not on file documented as of this encounter Procedures Procedure Name Priority Date/Time Associated Diagnosis Comments CORONAVIRUS (COVID 19) PCR Routine 01/25/2021 12:14 PM CDT Fatigue, unspecified type Body aches CORONAVIRUS (COVID-19) ANTIGEN Routine 01/25/2021 Fatigue, unspecified type Body aches documented in this encounter Results * (ABNORMAL) CORONAVIRUS (COVID 19) PCR ([facility]) (01/25/2021 12:14 PM CDT) SPEC DESCRIPTION NASOPHARYNGEAL SWAB 01/25/2021 12:15 PM CDT [facility] CORONAVIRUS SARS COV 2 PCR (RESP) POSITIVE(AA) NEGATIVE 01/27/2021 2:23 AM CDT [facility] Comment: THE SARS-CoV-2 TEST HAS BEEN AUTHORIZED BY THE FDA UNDER AN EUA FOR USE BY AUTHORIZED LABORATORIES. PERFORMED BY NUCLEIC ACID AMPLIFICATION PCR FIRST TEST YES 01/25/2021 12:15 PM CDT [facility] EMPLOYED IN HEALTHCARE NO 01/25/2021 12:15 PM CDT [facility] SYMPTOMATIC DEFINED BY CDC YES 01/25/2021 12:15 PM CDT [facility] DATE OF SYMPTOM ONSET [id number] 01/25/2021 12:15 PM CDT [facility] HOSPITALIZATION STATUS NO 01/25/2021 12:15 PM CDT [facility] PATIENT IN ICU NO 01/25/2021 12:15 PM CDT [facility] RESIDENT OF [facility] CARE NO 01/25/2021 12:15 PM CDT [facility] NASOPHARYNGEAL SWAB / Unknown 01/25/2021 12:14 PM CDT us Lanre Parekh DO MICROBIOLOGY - GENERAL O RDERABLES Final Result [facility] [address] [place] [address], * (ABNORMAL) CORONAVIRUS (COVID-19) ANTIGEN (01/25/2021) CORONAVIRUS ANTIGEN IA POSITIVE( A) NEGATIVE [facility] Internal Control: VALID VALID [facility] Specimen from nose (specimen) NASAL STRUCTURE / Unknown 01/25/2021 us Lanre Parekh DO MICROBIOLOGY - GENERAL O RDERABLES Final Result [facility] [address] [place] [address], documented in this encounter Visit Diagnoses Diagnosis Fatigue, unspecified type- Primary Body aches Generalized pain documented in this encounter Additional Health Concerns Infection Onset Date Last Indicated Resolved Time COVID-19 Rule Out 01/25/2021 01/25/2021 01/25/2021 12:15 PM CDT Assessment Noted Time PHQ-9 Depression Total Score: 1 01/26/20 21 11:17 AM CDT documented as of this encounter Care Teams Coupon Redemption Clerk Relationship Specialty Start Date End Date Lanre Parekh DO [address] [place] [address] PCP - General FAMILY PRACTICE 06/28/18 09/06/22 documented as of this encounter
--- OUTSIDE RECORDS SUMMARY | 2024-07-09 05:18 | XMS_ITS | Encounter Summary ---
Author Organization [facility] Address [address] [place] [address]. [place], [place] [address] [place] [address] Care Team Providers Care Network Manager Name Role Phone Lanre Parekh DO Primary Care Provider + Reason for Visit * Reason Comments Consent Doc (SCAN)* Authorization for Re lease of Confidential Health Information Encounter Details Date Type Department Care Team (Late Contact Info) Description 07/05/2018 Scan HEALTH INFO SRVCS Scanned, Documents Consent Doc (SCAN)* (Authorization for Release of Confidential Health Information) Social History Tobacco Use Types Packs/Day Years [...] Sex Assigned at Male 07/01/2024 9:54 AM RESTAURANT HOSTESS Legal Sex Male 8:28 AM RESTAURANT HOSTESS Gender Identity Male 07/01/2024 9:54 AM RESTAURANT HOSTESS Sexual Orientation Not on file documented as of this encounter Plan of Treatment Not on file documented as of this encounter Visit Diagnoses Not on filedocumented in this encounter Care Teams Network Manager Relationship Specialty Start Date End Date Lanre Parekh DO [address] [place] [address] PCP - General FAMILY PRACTICE 06/28/18 09/06/22 documented as of this encounter
--- OUTSIDE RECORDS SUMMARY | 2024-07-09 05:18 | XMS_ITS | Encounter Summary ---
Author Organization [facility] Address [address] [place] [address]. [place], [place] [id number] [place] [address] Care Team Providers Care Production Posting Clerk Name Role Phone Lanre Parekh DO Primary Care Provider + Encounter Details Date Type Department Care Team (Latest Contact Info) Description 08/19/2020 Scan HEALTH INFO SRVCS Scanned, Documents Social [...] Sex Assigned at Male 07/01/2024 9:54 AM REHAB DEPARTMENT MANAGER Legal Sex Male 8:28 AM REHAB DEPARTMENT MANAGER Gender Identity Male 07/01/2024 9:54 AM REHAB DEPARTMENT MANAGER Sexual Orientation Not on file documented as of this encounter Plan of Treatment Not on file documented as of this encounter Visit Diagnoses Not on filedocumented in this encounter Care Teams Production Posting Clerk Relationship Specialty Start Date End Date Lanre Parekh DO [address] [place] [address] PCP - General FAMILY PRACTICE 06/28/18 09/06/22 documented as of this encounter
--- OUTSIDE RECORDS SUMMARY | 2024-07-09 05:18 | XMS_ITS | Encounter Summary ---
Author Organization [facility] Address [address] [place] [address]. [place], [place] [address] [place] [address] Care Team Providers Care Electrical Manufacturing Technician Name Role Phone Lanre Parekh DO Primary Care Provider + Reason for Visit * Reason Comments Outside Record (SCAN) Clinical Summary R eport - Sore Throat/Sinus Congestion - [facility] Encounter Details Date Type Department Care Team ([facility] Contact Info) Description 06/29/2018 Scan HEALTH INFO SRVCS Scanned, Documents Outside Record (SCAN) (Clinical Summary Report - Sore Throat/Sinus Congestion - [facility]) Social History Tobacco Use Types Packs/Day Years Used Date Smoking Tobacco: Never Assessed AUDIT-C Answer Date Recorded Frequency of Alcohol Consumption Monthly or less 07/05/2018 Average Number of Drinks Not on file 019 Frequency of Binge Drinking Not on file 09/2018 Sex and Gender Information Value Date Recorded Sex Assigned at Male 07/01/2024 9:54 AM ENTRY LEVEL MARKETING ASSISTANT Legal Sex Male 8:28 AM ENTRY LEVEL MARKETING ASSISTANT Gender Identity Male 07/01/2024 9:54 AM ENTRY LEVEL MARKETING ASSISTANT Sexual Orientation Not on file documented as of this encounter Plan of Treatment Not on file documented as of this encounter Visit Diagnoses Not on filedocumented in this encounter Care Teams Electrical Manufacturing Technician Relationship Specialty Start Date End Date Lanre Parekh DO [address] [place] [address] PCP - General FAMILY PRACTICE 06/28/18 09/06/22 documented as of this encounter
--- OUTSIDE RECORDS SUMMARY | 2024-07-09 05:18 | XMS_ITS | Encounter Summary ---
Author Organization [facility] Address [address] [place] [address]. [place], [place] [id number] [place] [address] Care Team Providers Care Hoisting Engine Operator Name Role Phone Lanre Parekh DO Primary Care Provider + Reason for Referral * Consultation (Urgent) - Closed Specialty Diagnoses / Procedures Referred By Contac t Referred To Contact OTOLARYNGOLOGY Diagnoses Pharyngitis Lanre Parekh DO [address] [place] [address] Phone: tel: fax: Mikel Russ MD [address] [place] [address] Phone: tel: fax: Referral ID Status Reason Start Date Expiration Date Visits Re quested Visits Authorized [id number] Closed 07/17/2018 08/16/2019 100 100 GY CONSERVATION REPRESENTATIVE Reason for Visit * Reason Onset Date Comments Lab Results 07/15/2018 Encounter Details Date Type Department Care Team (Late st Contact Info) Description 07/15/2018 Telephone [facility] Medical Group Family & Internal Medicine - [place] [address] [place] [address] Lanre Parekh DO [address] [place], [place] [phone] Lab Results Social History Tobacco Use Types [...] Sex Assigned at Male 07/01/2024 9:54 AM ENERGY CONSERVATION REPRESENTATIVE Legal Sex Male 8:28 AM ENERGY CONSERVATION REPRESENTATIVE Gender Identity Male 07/01/2024 9:54 AM ENERGY CONSERVATION REPRESENTATIVE Sexual Orientation Not on file documented as of this encounter Progress Notes * Maribel Vinson MA - 07/17/2018 2:13 PM CST Patient notified , order placed for urgent ENT referral-sjs GY CONSERVATION REPRESENTATIVE * Maribel Vinson MA - 07/17/2018 2:12 PM CSTAddended by: MARIBEL VINSON on: 07/17/2018 02:12 PM Modules accepted: Orders GY CONSERVATION REPRESENTATIVE * Olena Coates MA - 07/15/2018 12:41 PM CST Lm 07/15/18 tn GY CONSERVATION REPRESENTATIVE * Olena Coates MA - 07/15/2018 12:41 PM CST ----- Message from Lanre Parekh DO sent at 07/15/2018 10:49 AM ENERGY CONSERVATION REPRESENTATIVE ----- Some general signs of inflammation, but acute labs checking for [place] are negative and cultures are also negative. Has pt contacted his GI physician? If symptoms are still occurring, I would recommendurgent ENT referral to Dr. Russ's office preferably. Can see whomever in his office. GY CONSERVATION REPRESENTATIVE documented in this encounter Plan of Treatment Scheduled Referrals Name Type Priority Associated Diagnoses Orde r Schedule Ambulatory referral to ENT Referral Routine Pharyngitis Ordered: 07/17/2018 documented as of this encounter Visit Diagnoses Diagnosis Generalized abdominal pain- Primary Abdominal pain, generalized Pharyngitis Acute pharyngitis documented in this encounter Care Teams Hoisting Engine Operator Relationship Specialty Start Date End Date Lnare Parekh DO [address] [place] [address] PCP - General FAMILY PRACTICE 06/28/18 09/06/22 documented as of this encounter
--- OUTSIDE RECORDS SUMMARY | 2024-07-09 05:18 | XMS_ITS | Encounter Summary ---
Author Organization [facility] Address [address] [place] [address]. [place], [place] [address] [place] [address] Care Team Providers Care Manager Of Regulatory Affairs Name Role Phone Lanre Parekh DO Primary Care Provider + Reason for Visit * Reason Comments Sleep Study (SCAN) Encounter Details Date Type Department Care Team ([facility] Contact Info) Description 12/19/2018 Scan HEALTH INFO SRVCS Scanned, Documents Sleep Study (SCAN) Social History Tobacco Use Types Packs/Day [...] Sex Assigned at Male 07/01/2024 9:54 AM OVENS SUPERVISOR Legal Sex Male 8:28 AM OVENS SUPERVISOR Gender Identity Male 07/01/2024 9:54 AM OVENS SUPERVISOR Sexual Orientation Not on file documented as of this encounter Plan of Treatment Not on file documented as of this encounter Procedures Procedure Name Priority Date/Time Associated Diagnosis Comments SLEEP STUDY GENERIC (SCAN ORDER) Routine 12/19/2018 documented in this encounter Results * SLEEP STUDY (12/19/2018) us Documents Scanned SCANNING Edited Result - Final documented in this encounter Visit Diagnoses Not on filedocumented in this encounter Care Teams Manager Of Regulatory Affairs Relationship Specialty Start Date End Date Lanre Parekh DO [address] [place] [address] PCP - General FAMILY PRACTICE 06/28/18 09/06/22 documented as of this encounter
--- OUTSIDE RECORDS SUMMARY | 2024-07-09 05:18 | XMS_ITS | Encounter Summary ---
Author Organization [facility] Address [address] [place] [address]. [place], [place] [id number] [place] [address] Care Team Providers Care Life Sciences Teacher Name Role Phone Lanre Parekh DO Primary Care Provider + Reason for Visit * Reason Comments Follow Up sleep study Encounter Details Date Type Department Care Team (Late st Contact Info) Description 01/17/2019 2:20 PM CDT Office Visit [facility] Family & Internal Medicine [facility] [address] [place] [address] Lanre Parekh DO [address] [place] [address] Follow Up (sleep study ) Social History Tobacco Use Types Packs/Day [...] Sex Assigned at Male 07/01/2024 9:54 AM BIOENGINEER Legal Sex Male 8:28 AM BIOENGINEER Gender Identity Male 07/01/2024 9:54 AM BIOENGINEER Sexual Orientation Not on file documented as of this encounter Last Filed Vital Signs Vital Sign Reading Time Taken Comments Blood Pressure 119/76 01/17/2019 2:25 PM CDT Pulse 73 01/17/2019 2:25 PM CDT Temperature 36.1 ??C (96.9 ??F) 01/17/2019 2:25 PM CD T Respiratory Rate 16 01/17/2019 2:25 PM CDT Oxygen Saturation 96% 01/17/2019 2:25 PM CDT Inhaled Oxygen Concentration - - Weight 80.8 kg (178 lb 2 oz) 01/17/2019 2:25 PM CDT Height 172.7 cm (5' 8 ) 01/17/2019 2:25 PM CDT Body Mass Index 27.08 01/17/2019 2:25 PM CDT documented in this encounter Progress Notes * Lanre Parekh, - 01/17/2019 2:20 PM CDT Images from the original note were not included. GENERAL OFFICE VISIT Encounter Date: 01/17/2019 Chief Complaint: 28-year-old male presents for Follow Up (sleep study ) HPI: Pt presents to discuss sleep study results. Study is consistent with mild obstructive sleep apnea. Patient's neck is noted to be 15.5 inches circumference. On previous exams, patient's tonsils were noted to be notably enlarged. Patient is requesting that I evaluate his ears today as well as he had an ear infection and still notes some residual fullness. Review of Systems Constitutional: Negative for fever. HENT: See HPI Patient Active Problem List Diagnosis ??? Arthritis [...] least 2 continuous years, flagyl, Asacol, Azathioprine (6849-7685), Remicade ([id number], switched for insurance purposes), Hu ??? Iritis [...] file Occupational History ??? Not on file Social Needs ??? Financial resource strain: Not on file ??? Food insecurity: Worry: Not on file Inability: Not on file ??? Transportation needs: Medical: Not on file Non-medical: Not on file Tobacco Use ??? Smoking status: Never Smoker ??? Smokeless tobacco: Never Used Substance and Sexual Activity ??? Alcohol use: Yes Frequency: Monthly or less ??? Drug use: Yes Types: Other - see comments Comment: CBD oil ??? Sexual activity: Yes Lifestyle ??? Physical activity: Days per week: Not on file Minutes per session: Not on file ??? Stress: Not on file Relationships ??? Social connections: Talks on phone: Not on file Gets together: Not on file Attends worship service: Not on file Active member of club or organization: Not on file Attends meetings of clubs or organizations: Not on file Relationship status: Not on file ??? Intimate partner violence: Fear of current or ex partner: Not on file Emotionally abused: Not on file Physically abused: Not on file Forced sexual activity: Not on file Other Topics Concern ??? Not on file Social History Narrative ??? Not on file Immunization History Administered Date(s) Administered ??? Pneumococcal (Pneumovax 23) 05/17/2017 ??? Pneumococcal (Prevnar 13) 01/25/2017 ??? Tdap (Generic) 02/09/2014 Current Outpatient Medications Medication Sig Dispense Refill ??? allopurinol 100 MG tablet Take 100 mg by mouth daily. ??? balsalazide 750 MG capsule TAKE 2 CAPS ONE DAILY ??? calcium carbonate (CALCIUM 600) 600 MG tablet every morning. ??? Cholecalciferol (D3-1000) 1000 units capsule Take 1,000 Units by mouth. ??? colestipol 1 g tablet Take 1 g by mouth. ??? folic acid 1 MG tablet TK 1 T PO D UTD 3 ??? HUMIRA PEN 40 MG/0.8ML injection Inject 40 mg into the skin every 14 (fourteen) days. ??? mercaptopurine 50 MG tablet Take 50 mg by mouth daily. ??? [place]-3 Fatty Acids (CVS FISH OIL) 1000 MG Cap ??? Probiotic Product (PROBIOTIC ADVANCED OR) ??? Turmeric Powder Take 1,500 mg by mouth. ??? vitamin D2, ergocalciferol, 73751 UNITS capsule Take 50,000 Units by mouth. No current facility-administered medications for this visit. Current Outpatient Medications on File Prior to Visit Medication Sig ??? allopurinol 100 MG tablet Take 100 mg by mouth daily. ??? balsalazide 750 MG capsule TAKE 2 CAPS ONE DAILY ??? calcium carbonate (CALCIUM 600) 600 MG tablet every morning. ??? Cholecalciferol (D3-1000) 1000 units capsule Take 1,000 Units by mouth. ??? colestipol 1 g tablet Take 1 g by mouth. ??? folic acid 1 MG tablet TK 1 T PO D UTD ??? HUMIRA PEN 40 MG/0.8ML injection Inject 40 mg into the skin every 14 (fourteen) days. ??? mercaptopurine 50 MG tablet Take 50 mg by mouth daily. ??? [place]-3 Fatty Acids (CVS FISH OIL) 1000 MG Cap ??? Probiotic Product (PROBIOTIC ADVANCED OR) ??? Turmeric Powder Take 1,500 mg by mouth. ??? vitamin D2, ergocalciferol, 21522 UNITS capsule Take 50,000 Units by mouth. No current facility-administered medications on file prior to visit. Allergies Allergen Reactions ??? Metronidazole Other (see comment) Neuropathy Objective: Filed Vitals: 01/17/19 1425 BP: 119/76 Pulse: 73 Resp: 16 Temp: 96.9 ??F (36.1 ??C) TempSrc: Oral SpO2: 96% Weight: 80.8 kg (178 lb 2 oz) Height: 5' 8 (1.727 m) Physical Exam Constitutional: He is well-developed, well-nourished, and in no distress. HENT: Head: Normocephalic and atraumatic. Right Ear: Tympanic membrane, external ear and ear canal normal. Left Ear: Tympanic membrane, external ear and ear canal normal. Nose: Nose normal. Mouth/Throat: Oropharynx is clear and moist. No oropharyngeal exudate. Tonsils decreased in size compared to previous exams. Cardiovascular: Normal rate, regular rhythm and normal heart sounds. Exam reveals no gallop and no friction rub. No murmur heard. Pulmonary/Chest: Effort normal and breath sounds normal. No respiratory distress. He has no wheezes. He has no rales. Skin: Skin is warm. Nursing note and vitals reviewed. Assessment & Plan: Nic was seen today for follow up. Diagnoses and all orders for this visit: Mild obstructive sleep apnea - SLEEP STUDY, UNATTENDED Discussion/Summary: Given patient's previously enlarged tonsils and body habitus, will refer patient to ENT for evaluation for consideration of his sleep apnea symptoms. Patient already has an ENT that he is following for his history of pharyngitis, so he will follow-up with him for this. Consider CPAP or oral device depending upon ENT evaluation. Patient verbalized understanding. Monitor years as well; consider antibiotic treatment if patient notes continued symptoms. Lanre Parekh DO documented in this encounter Plan of Treatment Not on file documented as of this encounter Visit Diagnoses Diagnosis Mild obstructive sleep apnea- Primary Obstructive sleep apnea (adult) (pediatric) documented in this encounter Care Teams Life Sciences Teacher Relationship Specialty Start Date End Date Lanre Parekh DO [address] [place] [id number] PCP - General FAMILY PRACTICE 06/28/18 09/06/22 documented as of this encounter
--- OUTSIDE RECORDS SUMMARY | 2024-07-09 05:18 | XMS_ITS | Encounter Summary ---
Author Organization [facility] Address [address] [place] [address]. [place], [place] [id number] [place] [address] Care Team Providers Care Record Pressman Name Role Phone Lanre Parekh Primary Care Provider + Reason for Visit * Reason Comments Colonoscopy Report (SCAN) Encounter Details Date Type Department Care Team ([facility] Contact Info) Description 10/01/2020 Scan HEALTH INFO SRVCS Scanned, Documents Colonoscopy Report [...] Sex Assigned at Male 07/01/2024 9:54 AM MARKETING PLANNING MANAGER Legal Sex Male 8:28 AM MARKETING PLANNING MANAGER Gender Identity Male 07/01/2024 9:54 AM MARKETING PLANNING MANAGER Sexual Orientation Not on file documented as of this encounter Plan of Treatment Not on file documented as of this encounter Procedures Procedure Name Priority Date/Time Associated Diagnosis Comments COLONOSCOPY GENERIC (SCAN ORDER) 10/01/2020 documented in this encounter Results * COLONOSCOPY GENERIC (10/01/2020) 10/01/2020 Narrative 10/01/2020 Ordered by an unspecified provider. us Documents Scanned SCANNING Final Result documented in this encounter Visit Diagnoses Not on filedocumented in this encounter Care Teams Record Pressman Relationship Specialty Start Date End Date Lanre Parekh DO [address] [place], [place] [id number] PCP - General FAMILY PRACTICE 06/28/18 09/06/22 documented as of this encounter
--- OUTSIDE RECORDS SUMMARY | 2024-07-09 05:18 | XMS_ITS | Encounter Summary ---
Author Organization [facility] Address [address] [place] [address]. [place], [place] [id number] [place] [address] Care Team Providers Care Occ Therapy Asst Name Role Phone Lanre Parekh DO Primary Care Provider + Reason for Visit * Reason Comments Follow Up Pharyngitis Encounter Details Date Type Department Care Team (Late st Contact Info) Description 11/22/2018 2:00 PM CDT Office Visit [facility] Family & Internal Medicine [facility] [address] [place] [address] Lanre Parekh DO [address] [place], [place] [phone] Follow Up (Pharyngitis) Social History Tobacco Use Types Packs/Day Years [...] Sex Assigned at Male 07/01/2024 9:54 AM SPINNING BATH PATROLLER Legal Sex Male 8:28 AM SPINNING BATH PATROLLER Gender Identity Male 07/01/2024 9:54 AM SPINNING BATH PATROLLER Sexual Orientation Not on file documented as of this encounter Last Filed Vital Signs Vital Sign Reading Time Taken Comments Blood Pressure 110/71 11/22/2018 2:03 PM CDT Pulse 75 11/22/2018 2:03 PM CDT Temperature 35.9 ??C (96.6 ??F) 11/22/2018 2:03 PM CD T Respiratory Rate 16 11/22/2018 2:03 PM CDT Oxygen Saturation 96% 11/22/2018 2:03 PM CDT Inhaled Oxygen Concentration - - Weight 79.6 kg (175 lb 9 oz) 11/22/2018 2:03 PM CDT Height 172.7 cm (5' 8 ) 11/22/2018 2:03 PM CDT Body Mass Index 26.69 11/22/2018 2:03 PM CDT documented in this encounter Progress Notes * Lanre Parekh, - 11/22/2018 2:00 PM CDT Images from the original note were not included. GENERAL OFFICE VISIT Encounter Date: 11/22/2018 Chief Complaint: 28-year-old male presents for Follow Up (Pharyngitis) HPI: Pt presents today for pharyngitis follow-up. Patient saw another provider Aleja Domingo in our office on 11/18/2018. She gave patient prednisone and cefdinir and obtained cultures and rapid strep. Cultures were noted to be negative as well as rapid strep. Patient states his symptoms have improved significantly. He has 1 day of prednisone left. He has several days of cefdinir left. Had seen ENT previously on 07/25/[address] Travon Cazares. No diagnosis was made at that time. His GI doctor says that is not his Crohn's disease. Patient is also needing home sleep study. This was ordered previously per patient, but had not goneto him yet. Patient notes daytime somnolence and snoring. [place] sleepiness scale score 10. Review of Systems Constitutional: See HPI HENT: See HPI Respiratory: Negative for shortness of breath. Cardiovascular: Negative for chest pain. Psychiatric/Behavioral: See HPI Patient Active Problem List [...] least 2 continuous years, flagyl, Asacol, Azathioprine (3213-4991), Remicade ([id number], switched for insurance purposes), Hu ??? Iritis [...] file Gets together: Not on file Attends sikh service: Not on file Active member of [...] Outpatient Medications Medication Sig Dispense Refill ??? balsalazide 750 MG capsule TAKE 2 CAPS ONE DAILY ??? calcium carbonate (CALCIUM 600) 600 MG tablet every morning. ??? cefdinir 300 MG Cap capsule Take 1 capsule (300 mg total) by mouth 2 (two) times daily. 20 capsule 0 ??? Cholecalciferol (D3-1000) 1000 units capsule Take 1,000 Units by mouth. ??? colestipol 1 g tablet Take 1 g by mouth. ??? folic acid 1 MG tablet TK 1 T PO D UTD 3 ??? HUMIRA PEN 40 MG/0.8ML injection ??? mercaptopurine 50 MG tablet ??? [place]-3 Fatty Acids (CVS FISH OIL) 1000 MG Cap ??? predniSONE 20 MG tablet Take 2 tabs by mouth once daily for 3 days and one tab by mouth once daily for 2 days. 8 tablet 0 ??? Probiotic Product (PROBIOTIC ADVANCED OR) ??? Turmeric Powder Take 1,500 mg by mouth. ??? vitamin D2, ergocalciferol, 54016 UNITS capsule Take 50,000 Units by mouth. No current facility-administered medications for this visit. Current Outpatient Medications on File Prior to Visit Medication Sig ??? balsalazide 750 MG capsule TAKE 2 CAPS ONE DAILY ??? calcium carbonate (CALCIUM 600) 600 MG tablet every morning. ??? cefdinir 300 MG Cap capsule Take 1 capsule (300 mg total) by mouth 2 (two) times daily. ??? Cholecalciferol (D3-1000) 1000 units capsule Take 1,000 Units by mouth. ??? colestipol 1 g tablet Take 1 g by mouth. ??? folic acid 1 MG tablet TK 1 T PO D UTD ??? HUMIRA PEN 40 MG/0.8ML injection ??? mercaptopurine 50 MG tablet ??? [place]-3 Fatty Acids (CVS FISH OIL) 1000 MG Cap ??? predniSONE 20 MG tablet Take 2 tabs by mouth once daily for 3 days and one tab by mouth once daily for 2 days. ??? Probiotic Product (PROBIOTIC ADVANCED OR) ??? Turmeric Powder Take 1,500 mg by mouth. ??? vitamin D2, ergocalciferol, 92368 UNITS capsule Take 50,000 Units by mouth. No current facility-administered medications on file prior to visit. Allergies Allergen Reactions ??? Metronidazole Other (see comment) Neuropathy Objective: Filed Vitals: 11/22/18 1403 BP: 110/71 Pulse: 75 Resp: 16 Temp: 96.6 ??F (35.9 ??C) TempSrc: Oral SpO2: 96% Weight: 79.6 kg (175 lb 9 oz) Height: 5' 8 (1.727 m) Physical Exam Constitutional: He is well-developed, well-nourished, and in no distress. HENT: Head: Normocephalic and atraumatic. Right Ear: External ear normal. Left Ear: External ear normal. Erythema of tonsils improved, few pockets of exudate still present Eyes: Conjunctivae are normal. Neck: Neck supple. Neck circumference 15.5 Cardiovascular: Normal rate, regular rhythm and normal heart sounds. Exam reveals no gallop and no friction rub. No murmur heard. Pulmonary/Chest: Effort normal and breath sounds normal. No respiratory distress. He has no wheezes. He has no rales. Lymphadenopathy: He has no cervical adenopathy. Neurological: Gait normal. Skin: Skin is warm and dry. No rash noted. Nursing note and vitals reviewed. Assessment & Plan: Nic was seen today for follow up. Diagnoses and all orders for this visit: Acute pharyngitis, unspecified etiology Snores - SLEEP STUDY, UNATTENDED Daytime somnolence - SLEEP STUDY, UNATTENDED Discussion/Summary: Recommend continuing prednisone, although this is only one more day. Patient can hold cefdinir at this time. Restart it if symptoms return. Consider repeat prednisone if symptoms recur as well. Recommend patient follow-up with ENT whenever the symptoms recur again if they recur again. Patient verbalized understanding and is in agreement with this plan. Will order home sleep study and have patientfollow-up accordingly. Lanre Parekh DO documented in this encounter Plan of Treatment Not on file documented as of this encounter Visit Diagnoses Diagnosis Acute pharyngitis, unspecified etiology- Primary Snores Other dyspnea and respiratory abnormality Daytime somnolence Hypersomnia, unspecified documented in this encounter Care Teams Occ Therapy Asst Relationship Specialty Start Date End Date Lanre Parekh DO [address] [place] [address] PCP - General FAMILY PRACTICE 06/28/18 09/06/22 documented as of this encounter
--- OUTSIDE RECORDS SUMMARY | 2024-07-09 05:18 | XMS_ITS | Encounter Summary ---
Author Organization [facility] Address [address] [place] [address]. [place], [place] [address] [place] [address] Care Team Providers Care Manager Of Care Name Role Phone Lanre Parekh DO Primary Care Provider + Reason for Visit * Reason Comments Cough x 1 day Fever 100.5 being highest Chills Body Aches Sinus Problem sinus drainage Encounter Details Date Type Department Care Team (Late st Contact Info) Description 08/06/2019 11:00 AM HOG ROOM SUPERVISOR Office Visit [facility] Family & Internal Medicine [address] [phone] Lanre Parekh DO [address] [place] [address] Cough (x 1 day ); Fever (100.5 being highest ); Chills; Body Aches; Sinus Problem (sinus drainage ) Social History Tobacco Use Types Packs/Day [...] Sex Assigned at Male 07/01/2024 9:54 AM HOG ROOM SUPERVISOR Legal Sex Male 8:28 AM HOG ROOM SUPERVISOR Gender Identity Male 07/01/2024 9:54 AM HOG ROOM SUPERVISOR Sexual Orientation Not on file documented as of this encounter Last Filed Vital Signs Vital Sign Reading Time Taken Comments Blood Pressure 124/72 08/06/2019 11:26 AM HOG ROOM SUPERVISOR Pulse 79 08/06/2019 11:26 AM HOG ROOM SUPERVISOR Temperature 36.8 ??C (98.3 ??F) 08/06/2019 11:[address] Respiratory Rate 16 08/06/2019 11:26 AM HOG ROOM SUPERVISOR Oxygen Saturation 96% 08/06/2019 11:26 AM HOG ROOM SUPERVISOR Inhaled Oxygen Concentration - - Weight 81.2 kg (179 lb 1 oz) 08/06/2019 11:26 AM HOG ROOM SUPERVISOR Height 172.7 cm (5' 8 ) 08/06/2019 11:26 AM HOG ROOM SUPERVISOR Body Mass Index 27.23 08/06/2019 11:26 AM HOG ROOM SUPERVISOR documented in this encounter Progress Notes * Lanre Parekh, DO - 08/06/2019 11:00 AM CST GENERAL OFFICE VISIT Encounter Date: 08/06/2019 Chief Complaint: 28-year-old male presents for Cough (x 1 day ); Fever (100.5 being highest ); Chills; Body Aches; and Sinus Problem (sinus drainage ) . HPI: Patient states symptoms have been present for 1 days. Symptoms include chills, body aches, sinus pressure and drainage, fever of 100.5, cough, mildly sore throat. Pertinent negatives include N/V, SOBand Rash. Patient has no sick contacts. OTC medications tried include tylenol. Review of Systems Constitutional: Negative for chills and fever. HENT: See HPI Eyes: Negative for discharge. Respiratory: See HPI Cardiovascular: Negative for chest pain. Gastrointestinal: Negative for abdominal pain, nausea and vomiting. Musculoskeletal: Negative for myalgias. Skin: Negative for rash. Patient Active Problem List Diagnosis ??? Arthritis [...] least 2 continuous years, flagyl, Asacol, Azathioprine (1135-9905), Remicade ([id number], switched for insurance purposes), Hu ??? Iritis [...] file Gets together: Not on file Attends zoroastrianism service: Not on file Active member of [...] ??? Multiple Vitamins-Minerals (MULTIVITAMIN ADULT OR) ??? [place]-3 Fatty Acids (CVS FISH OIL) 1000 MG Cap ??? oseltamivir (TAMIFLU) 75 MG capsule Take 1 capsule (75 mg total) by mouth 2 (two) times daily for 5 days. 10 capsule 0 ??? Probiotic Product (PROBIOTIC ADVANCED OR) ??? Turmeric Powder Take 1,500 mg by mouth. ??? vitamin D2, ergocalciferol, 94683 UNITS capsule Take 50,000 Units by mouth [...] ??? Multiple Vitamins-Minerals (MULTIVITAMIN ADULT OR) ??? [place]-3 Fatty Acids (CVS FISH OIL) 1000 MG Cap ??? Probiotic Product (PROBIOTIC ADVANCED OR) ??? Turmeric Powder Take 1,500 mg by mouth. ??? vitamin D2, ergocalciferol, 29310 UNITS capsule Take 50,000 Units by mouth every 14 (fourteen) days. No current facility-administered medications on file prior to visit. Allergies Allergen Reactions ??? Metronidazole Other (see comment) Neuropathy Objective: Filed Vitals: 08/06/19 1126 BP: 124/72 Pulse: 79 Resp: 16 Temp: 98.3 ??F (36.8 ??C) SpO2: 96% Weight: 81.2 kg (179 lb 1 oz) Height: 5' 8 (1.727 m) Physical Exam Constitutional: He is oriented to person, place, and time. Tired appearing, but in no acute distress HENT: Head: Normocephalic and atraumatic. Right Ear: Tympanic membrane, external ear and ear canal normal. Left Ear: Tympanic membrane, external ear and ear canal normal. Nose: Nose normal. Mouth/Throat: Oropharynx is clear and moist. No oropharyngeal exudate. Eyes: Conjunctivae are normal. No scleral icterus. Neck: Neck supple. Cardiovascular: Normal rate, regular rhythm and normal heart sounds. Exam reveals no gallop and no friction rub. No murmur heard. Pulmonary/Chest: Effort normal and breath sounds normal. No respiratory distress. He has no wheezes. He has no rales. Abdominal: Soft. Bowel sounds are normal. There is no tenderness. Musculoskeletal: He exhibits no edema. Lymphadenopathy: He has no cervical adenopathy. Neurological: He is alert and oriented to person, place, and time. Skin: Skin is warm and dry. No rash noted. Psychiatric: Affect normal. Nursing note and vitals reviewed. Results for orders placed or performed in visit on 08/06/19 INFLUENZA A & B Result Value Ref Range FLU A POSITIVE NEGATIVE FLU B NEGATIVE NEGATIVE Internal Control: VALID VALID Assessment & Plan: Nic was seen today for cough, fever, chills, body aches and sinus problem. Diagnoses and all orders for this visit: Influenza A - oseltamivir (TAMIFLU) 75 MG capsule; Take 1 capsule (75 mg total) by mouth 2 (two) times daily for 5 days. Cough - INFLUENZA A & B Discussion/Summary: Positive for influenza A; okay to manage as outpatient at this time. Will treat with tamiflu as within the window of treatment and concomitant chronic symptoms. Expected management discussed. F/u as needed for this. Lanre Parekh DO ROOM SUPERVISOR documented in this encounter Plan of Treatment Not on file documented as of this encounter Procedures Procedure Name Priority Date/Time Associated Diagnosis Comments INFLUENZA A & B Routine 08/06/2019 Cough documented in this encounter Results * INFLUENZA A & B (08/06/2019) INFULENZA A AB POSITIVE NEGATIVE [facility] INFLUENZA B AB NEGATIVE NEGATIVE [facility] Internal Control: VALID VALID [facility] NASAL STRUCTURE / Unknown 08/06/2019 us Lanre Parekh DO MICROBIOLOGY - GENERAL O RDERABLES Final Result Performing Organization Address [facility] [place] [address], documented in this encounter Visit Diagnoses Diagnosis Influenza A- Primary Influenza with other respiratory manifestations Cough documented in this encounter Care Teams Manager Of Care Relationship Specialty Start Date End Date Lanre Parekh DO [address] [place] [address] PCP - General FAMILY PRACTICE 06/28/18 09/06/22 documented as of this encounter
--- OUTSIDE RECORDS SUMMARY | 2024-07-09 05:18 | XMS_ITS | Encounter Summary ---
Author Organization [facility] Address [address] [place] [address]. [place], [place] [address] [place] [address] Care Team Providers Care Hand Tile Maker Name Role Phone Lanre Parekh DO Primary Care Provider + Reason for Visit * Reason Onset Date Comments Sleep Problem 09/25/2018 Encounter Details Date Type Department Care Team (Late st Contact Info) Description 09/25/2018 Telephone [facility] Family [facility] Internal [facility] [address] [place] [address] Lanre Parekh DO [address] [place], [place] [id number] Sleep Problem Social History Tobacco Use Types Packs/Day Years [...] Sex Assigned at Male 07/01/2024 9:54 AM REFRACTORY TECHNICIAN Legal Sex Male 8:28 AM REFRACTORY TECHNICIAN Gender Identity Male 07/01/2024 9:54 AM REFRACTORY TECHNICIAN Sexual Orientation Not on file documented as of this encounter Progress Notes * Lanre Parekh DO - 09/25/2018 11:29 AM CDT Pt is noted to have hx of snoring that is worsening; will order home sleep study. documented in this encounter Plan of Treatment Not on file documented as of this encounter Visit Diagnoses Diagnosis Snoring- Primary Other dyspnea and respiratory abnormality documented in this encounter Care Teams Hand Tile Maker Relationship Specialty Start Date End Date Lanre Parekh DO [address] [place] [address] PCP - General FAMILY PRACTICE 06/28/18 09/06/22 documented as of this encounter
--- OUTSIDE RECORDS SUMMARY | 2024-07-09 05:18 | XMS_ITS | Encounter Summary ---
Author Organization [facility] Address [address] [place] [address]. [place], [place] [address] [place] [address] Care Team Providers Care Buffet Waiter/Waitress Name Role Phone Lanre Parekh DO Primary Care Provider + Encounter Details Date Type Department Care Team (Latest Contact Info) Description 02/12/2020 Scan HEALTH INFO SRVCS Scanned, Documents Social [...] Sex Assigned at Male 07/01/2024 9:54 AM LOCK AND DAM REPAIRER Legal Sex Male 8:28 AM LOCK AND DAM REPAIRER Gender Identity Male 07/01/2024 9:54 AM LOCK AND DAM REPAIRER Sexual Orientation Not on file documented as of this encounter Plan of Treatment Not on file documented as of this encounter Visit Diagnoses Not on filedocumented in this encounter Care Teams Buffet Waiter/Waitress Relationship Specialty Start Date End Date Lanre Parekh DO [address] [place] [address] PCP - General FAMILY PRACTICE 06/28/18 09/06/22 documented as of this encounter
--- OUTSIDE RECORDS SUMMARY | 2024-07-09 05:18 | XMS_ITS | Encounter Summary ---
Author Organization [facility] Address [address] [place] [address]. [place], [place] [address] [place] [address] Care Team Providers Care Diesel Engine Specialist Name Role Phone Lanre Parekh Primary Care Provider + Reason for Visit * Reason Comments Sleep Study (SCAN) Encounter Details Date Type Department Care Team ([facility] Contact Info) Description 12/19/2018 Scan HEALTH INFO [...] Sex Assigned at Male 07/01/2024 9:54 AM KNIFER UP Legal Sex Male 8:28 AM KNIFER UP Gender Identity Male 07/01/2024 9:54 AM KNIFER UP Sexual Orientation Not on file documented as of this encounter Plan of Treatment Not on file documented as of this encounter Procedures Procedure Name Priority Date/Time Associated Diagnosis Comments SLEEP STUDY GENERIC (SCAN ORDER) 12/19/2018 documented in this encounter Results * SLEEP STUDY GENERIC (12/19/2018) 12/19/2018 Narrative 12/19/2018 Ordered by an unspecified provider. us Documents Scanned SCANNING Final Result documented in this encounter Visit Diagnoses Not on filedocumented in this encounter Care Teams Diesel Engine Specialist Relationship Specialty Start Date End Date Lanre Parekh DO [address] [place] [address] PCP - General FAMILY PRACTICE 06/28/18 09/06/22 documented as of this encounter
--- OUTSIDE RECORDS SUMMARY | 2024-07-09 05:18 | XMS_ITS | Encounter Summary ---
Author Organization [facility] Address [address] [place] [address]. [place], [place] [address] [place] [address] Care Team Providers Care Admission Discharge Rn Name Role Phone Lanre Parekh DO Primary Care Provider + Reason for Visit * Reason Comments Colonoscopy/EGD (SCAN) Encounter Details Date Type Department Care Team ([facility] Contact Info) Description 08/29/2019 Scan [facility] HEALTH INFO SRVCS Scanned, Documents Colonoscopy/EGD (SCAN) Social History Tobacco Use Types Packs/Day [...] Sex Assigned at Male 07/01/2024 9:54 AM CONCRETE FINISHER Legal Sex Male 8:28 AM CONCRETE FINISHER Gender Identity Male 07/01/2024 9:54 AM CONCRETE FINISHER Sexual Orientation Not on file documented as of this encounter Plan of Treatment Not on file documented as of this encounter Procedures Procedure Name Priority Date/Time Associated Diagnosis Comments COLONOSCOPY/EGD GENERIC (SCA N ORDER) Routine 08/29/2019 documented in this encounter Results * COLONOSCOPY/EGD (08/29/2019) us Documents Scanned SCANNING Edited Result - Final [facility] documented in this encounter Visit Diagnoses Not on filedocumented in this encounter Care Teams Admission Discharge Rn Relationship Specialty Start Date End Date Lanre Parekh DO [facility] [place] [address] PCP - General FAMILY PRACTICE 06/28/18 09/06/22 documented as of this encounter
--- OUTSIDE RECORDS SUMMARY | 2024-07-09 05:18 | XMS_ITS | Encounter Summary ---
Author Organization [facility] Address [address] [place] [address]. [place], [place] [address] [place] [address] Care Team Providers Care Youth Corrections Officer Name Role Phone Lanre Parekh DO Primary Care Provider + Encounter Details Date Type Department Care Team (Latest Contact Info) Description 07/05/2018 2:40 PM INTERNAL AFFAIRS INVESTIGATOR - 07/05/2018 11:59 PM INTERNAL AFFAIRS INVESTIGATOR Hospital Encounter [facility] [place] [address] Lanre Parekh DO [address] [place] [address] Discharge Disposition: Home or Self Care (Routine [...] Sex Assigned at Male 07/01/2024 9:54 AM INTERNAL AFFAIRS INVESTIGATOR Legal Sex Male 8:28 AM INTERNAL AFFAIRS INVESTIGATOR Gender Identity Male 07/01/2024 9:54 AM INTERNAL AFFAIRS INVESTIGATOR Sexual Orientation Not on file documented as of this encounter Medications at Time of Discharge balsalazide 750 MG capsule TAKE 2 CAPS ONE DAILY 02/01/2017 colestipol 1 g tablet Take 1 tablet (1 g total) by mouth. 02/11/2018 vitamin D3, cholecalciferol, 25 MCG (1000 UT) capsule Take 5 capsules (5,000 Units total) by mouth daily. ADALIMUMAB SC Inject 40 mg into the skin. 02/09/2014 11/18/2018 calcium carbonate (OS-ANA) 600 MG tablet every morning. 11/16/2017 09/07/2022 cefdinir 300 MG Cap capsuleIndicatio ns:Pharyngitis due to other organism Take 1 capsule (300 mg total) by mouth 2 (two) times daily. 20 capsule 07/05/2018 11/18/2018 Cyanocobalamin 100 MCG Lozenge 9 DOCOSAHEXAENOIC ACID OR 1 capsule. 11/16/2017 11/18/2018 fexofenadine 180 MG tablet TK 1 T PO D 0 06/08/2018 11/18/2018 folic acid 1 MG tablet TK 1 T PO D UTD 3 10/27/2017 06/16/2024 hyoscyamine 0.125 MG tablet Take 0.125 mg by mouth. 03/01/2018 11/18/2018 methotrexate 2.5 MG tablet Take 10 Tablets by mouth weekly all at once on the same day (Safety Labs due every 3 months 05/19) 02/22/2018 11/18/2018 Multiple Minerals-Vitamin s (NUTRA-SUPPORT BONE) Cap 11/18/2018 nystatin 104307 UNIT/ML suspension G 5 ML PO QID FOR 7 DAYS 0 06/29/2018 11/18/2018 Ironside-3 Fatty Acids ([facility] FISH OIL) 1000 MG Cap 09/08/19 23 Probiotic Product (PROBIOTIC ADVANCED OR) 09/07/2022 Turmeric Powder Take 1,500 mg by mouth. 09/07/2022 vitamin D2, ergocalciferol, 77990 UNITS capsuleIndicatio ns:Every 2 weeks Take 50,000 Units by mouth. 05/20/2018 05/20/2019 vitamin E 100 UNIT capsule 11/22/2018 documented as of this encounter Plan of Treatment Not on file documented as of this encounter Procedures Procedure Name Priority Date/Time Associated Diagnosis Comments YUNI BAKER VIRAL CAPSID AG, AB IGG Routine 07/05/2018 3:07 PM INTERNAL AFFAIRS INVESTIGATOR Sore throat Pharyngitis due to other organism YUNI BAKER VIRAL CAPSID AG, AB IGM Routine 07/05/2018 3:07 PM INTERNAL AFFAIRS INVESTIGATOR SED RATE, ERYTHROCYTE (ESR) Routine 07/05/2018 3:07 PM INTERNAL AFFAIRS INVESTIGATOR Sore throat Pharyngitis due to other organism COMPREHENSIVE METABOLIC PANEL Routine 07/05/2018 3:07 PM INTERNAL AFFAIRS INVESTIGATOR Sore throat Pharyngitis due to other organism CMV ANTIBODY, IGM Routine 07/05/2018 3:0 7 PM INTERNAL AFFAIRS INVESTIGATOR Sore throat Pharyngitis due to other organism CMV ANTIBODY IGG Routine 07/05/2018 3:07 PM INTERNAL AFFAIRS INVESTIGATOR Sore throat Pharyngitis due to other organism C-REACTIVE PROTEIN Routine 07/05/2018 3: 07 PM INTERNAL AFFAIRS INVESTIGATOR Sore throat Pharyngitis due to other organism CBC W/DIFF AUTOMATED Routine 07/05/2018 3:07 PM INTERNAL AFFAIRS INVESTIGATOR Sore throat Pharyngitis due to other organism CULTURE, FUNGUS W/ STAIN Routine 07/05/2018 3:02 PM INTERNAL AFFAIRS INVESTIGATOR Sore throat Pharyngitis due to other organism CULTURE THROAT ALL ORG Routine 9 3:02 PM INTERNAL AFFAIRS INVESTIGATOR Sore throat Pharyngitis due to other organism documented in this encounter Results * YUNI BAKER VIRAL CAPSID AG, AB IGM (07/05/2018 3:07 PM INTERNAL AFFAIRS INVESTIGATOR) EBV VCA IGM <36.00 <36.00 U/mL 07/13/2018 8:23 PM INTERNAL AFFAIRS INVESTIGATOR [employer] MIMI GIL Comment: ?? U/mL ?Interpretation ?<36.00 ?Negative 36.00 - 43.99 ?Equivocal ??>43.99 ?Positive Test Performed by [facility], [facility], [address] [place] [address] Sai Dodson M.D., Ph.D., Director of Laboratories , [facility] [id number] 07/05/2018 3:07 PM INTERNAL AFFAIRS INVESTIGATOR Lanre Parekh DO LABORATORY Final Re sult Performing Organization Address City/[facility]/ZIP Co de Phone Number [employer] [address] [address], [place] [phone] * (ABNORMAL) C-REACTIVE PROTEIN (07/05/2018 3:07 PM INTERNAL AFFAIRS INVESTIGATOR) C-REACTIVE PROTEIN 1.02(H) <0.29 mg/dL 07/05/2018 3:49 PM INTERNAL AFFAIRS INVESTIGATOR [facility] 07/05/2018 3:07 PM INTERNAL AFFAIRS INVESTIGATOR Lanre Parekh DO LABORATORY Final Re sult Performing Organization Address [facility] [[email or web address]] Co de Phone Number [facility] [address] [place] [address], [place] [phone] * (ABNORMAL) SED RATE, ERYTHROCYTE (ESR) (07/05/2018 3:07 PM INTERNAL AFFAIRS INVESTIGATOR) ESR 34(H) 0 - 15 MM/HR 07/06/2018 1:03 PM INTERNAL AFFAIRS INVESTIGATOR [facility] 07/05/2018 3:07 PM INTERNAL AFFAIRS INVESTIGATOR Lanre Parekh DO LABORATORY Final Re sult Performing Organization Address City/[facility]/ZIP Co de Phone Number [facility] [address] [place] [address], [place] [phone] * (ABNORMAL) COMPREHENSIVE METABOLIC PANEL (07/05/2018 3:07 PM INTERNAL AFFAIRS INVESTIGATOR) [facility] GLUCOSE 90 70 - 99 MG/DL 07/05/2018 3:49 PM [facility] BUN 14 7 - 18 MG/DL 07/05/2018 3:49 PM [facility] CREATININE S/P/B 0.86 0.7 - 1.3 MG/DL 07/05/2018 3:49 PM [facility] SODIUM S/P/B 137 136 - 145 MMOL/L 07/05/2018 3:49 PM [facility] POTASSIUM S/P/B 4.2 3.5 - 5.1 MMOL/L 07/05/2018 3:49 PM [facility] CHLORIDE S/P/B 105 100 - 108 MMOL/L 07/05/2018 3:49 PM [facility] CO2 27.6 21 - 32 MMOL/L 07/05/2018 3:49 PM [facility] CALCIUM S/P/B 9.0 8.5 - 10.1 MG/DL 07/05/2018 3:49 PM [facility] BILIRUBIN TOTAL S/P/B 0.4 0.2 - 1.2 MG/DL 07/05/2018 3:49 PM [facility] TOTAL PROTEIN S/P/B 8.1 6.4 - 8.2 G/DL 07/05/2018 3:49 PM [facility] ALBUMIN S/P/B 4.1 3.4 - 5.0 G/DL 07/05/2018 3:49 PM [facility] AST 12(L) 15 - 37 U/L 07/05/2018 3:49 PM [facility] ALT 27 16 - 60 U/L 07/05/2018 3:49 PM [facility] ALKALINE PHOSPHATASE S/P/B 93 50 - 136 U/L 07/05/2018 3:49 PM INTERNAL AFFAIRS INVESTIGATOR [facility] ANION GAP 8.6 8 - 20 MMOL/L 07/05/2018 3:49 PM [facility] BUN CREATININE RATIO 16.4 6 - 26 07/05/2018 3:49 PM [facility] A/G RATIO 1.0 1.0 - 2.0 RATIO 07/05/2018 3:49 PM [facility] EGFR NON-AFR. AMER. >90 >90 ML/MIN/1.7 3 M2 07/05/2018 3:49 PM [facility] EGFR AFR. AMER. >90 >90 ML/MIN/1.7 3 M2 07/05/2018 3:49 PM [facility] Comment: NOTE: eGFR is not calculated for patients <18 years of age. This is an estimated GFR (CKD EPI) and should not be used for calculating drug doses. 07/05/2018 3:07 PM INTERNAL AFFAIRS INVESTIGATOR Lanre Parekh DO LABORATORY Final Re sult [facility] [address] [place] [address], [place] [phone] * (ABNORMAL) CBC W/DIFF AUTOMATED (07/05/2018 3:07 PM INTERNAL AFFAIRS INVESTIGATOR) WBC 7.4 4.5 - 11.0 x10'3/uL 07/05/2018 3:37 PM INTERNAL AFFAIRS INVESTIGATOR [facility] RBC 4.33(L) 4.70 - 6.10 x10'6/uL 07/05/2018 3:37 PM [facility] HGB 13.0(L) 14.0 - 18.0 G/DL 07/05/2018 3:37 PM [facility] HCT 39.4(L) 43.0 - 54.0 % 07/05/2018 3:37 PM [facility] MCV 91.0 80.0 - 94.0 FL 07/05/2018 3:37 PM [facility] MCH 30.0 27.0 - 31.0 PG 07/05/2018 3:37 PM [facility] MCHC 33.0 32.0 - 36.0 G/DL 07/05/2018 3:37 PM [facility] RDW 13.5 11.5 - 14.5 % 07/05/2018 3:37 PM [facility] PLT 252 130 - 400 x10'3/uL 07/05/2018 3:37 PM [facility] MPV 10.2 9.3 - 12.2 FL 07/05/2018 3:37 PM [facility] DIFFERENTIAL TYPE AUTOMATED DIFFERENTIAL 07/05/2018 3:37 PM [facility] NEUTROPHILS % 54.8 % 07/05/2018 3:37 PM [facility] LYMPHOCYTES % 35.6 % 07/05/2018 3:37 PM [facility] MONOCYTES % 7.1 % 07/05/2018 3:37 PM [facility] EOSINOPHILS 1.5 % 07/05/2018 3:37 PM [facility] BASOPHILS 0.7 % 07/05/2018 3:37 PM [facility] IMMATURE GRANS % 0.3(H) 0 % 07/05/19 19 3:37 PM [facility] ABS. NEUTROPHILS TOTAL 4.07 1.80 - 7.70 x10'3/uL 07/05/2018 3:37 PM [facility] ABS. LYMPHOCYTES 2.64 1.00 - 4.80 x10'3/uL 07/05/2018 3:37 PM INTERNAL AFFAIRS INVESTIGATOR [facility] ABS. MONOCYTES 0.53 0.30 - 0.82 x10'3/uL 07/05/2018 3:37 PM INTERNAL AFFAIRS INVESTIGATOR [facility] ABS. EOSINOPHILS 0.11 0.04 - 0.54 x10'3/uL 07/05/2018 3:37 PM INTERNAL AFFAIRS INVESTIGATOR [facility] ABS. BASOPHILS 0.05 0.01 - 0.08 x10'3/uL 07/05/2018 3:37 PM INTERNAL AFFAIRS INVESTIGATOR [facility] ABS. IMMATURE GRANULOCYTES 0.02 0.00 - 0.03 x10'3/uL 07/05/2018 3:37 PM INTERNAL AFFAIRS INVESTIGATOR [facility] 07/05/2018 3:07 PM INTERNAL AFFAIRS INVESTIGATOR Lanre Parekh DO LABORATORY Final Re sult [facility] [address] [place] [address], * CMV ANTIBODY IGG (07/05/2018 3:07 PM INTERNAL AFFAIRS INVESTIGATOR) CMV IGG <0.60 <0.60 U/mL 07/10/2018 9:01 AM INTERNAL AFFAIRS INVESTIGATOR [employer] MIMI GIL Comment: ??U/mL ? Interpretation ? <0.60 ?? Negative 0.60 - 0.69 ?? Equivocal > or = 0.70 ?? 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 ??It does not differentiate between an active or past infection. Test Performed by Valerie Au, [facility], [address] [place], [place] Sai Dodson M.D., Ph.D., Director of Laboratories , CLIA [id number] 07/05/2018 3:07 PM INTERNAL AFFAIRS INVESTIGATOR Lanre Soni Parekh DO LABORATORY Final Re sult Performing Organization Address [facility]/ZIP Co de Phone Number [facility] , * CMV ANTIBODY, IGM (07/05/2018 3:07 PM INTERNAL AFFAIRS INVESTIGATOR) CMV IGM <30.00 <30.00 AU/mL 07/09/2018 10:40 AM INTERNAL AFFAIRS INVESTIGATOR [employer] MIMI LOUISE Comment: ?? AU/mL ? Interpretation ? < 30.00 ??No Antibody Detected 30.00 - 34.99 ??Equivocal > or = 35.00 ??Antibody Detected Results from any one IgM assay [...] IgM testing in two or more weeks. Test Performed by [facility] [place], [address] [place], [place] Sai Dodson M.D., Ph.D., Director of Laboratories , CLIA [id number] 07/05/2018 3:07 PM INTERNAL AFFAIRS INVESTIGATOR Lanre Parekh DO LABORATORY Final Re sult Performing Organization Address [facility]/ZIP Co de Phone Number [facility] [address] [place] [address], [place] [phone] * (ABNORMAL) YUNI BAKER VIRAL CAPSID AG, AB IGG (07/05/2018 3:07 PM INTERNAL AFFAIRS INVESTIGATOR) Pathologist [facility] EBV VCA IGG 240.00(H) <18.00 U/mL 07/09/2018 4:31 PM INTERNAL AFFAIRS INVESTIGATOR [employer] MIMI GIL Comment: ?? U/mL ?Interpretation ?<18.00 ?Negative 18.00 - 21.99 ?Equivocal ??>21.99 ?Positive Test Performed by [facility], [facility], [address] [place], [place] Sai Dodson M.D., Ph.D., Director of Laboratories , [facility] [id number] 07/05/2018 3:07 PM INTERNAL AFFAIRS INVESTIGATOR Lanre Parekh DO LABORATORY Final Re sult [employer] [facility] [address] [place] [address], [place] [phone] * CULTURE, FUNGUS W/ STAIN (07/05/2018 3:02 PM INTERNAL AFFAIRS INVESTIGATOR) Pathologist [facility] SPEC DESCRIPTION MOUTH 07/05/2018 3:03 PM INTERNAL AFFAIRS INVESTIGATOR [facility] SPECIAL REQUESTS NO SPECIAL REQUEST 07/05/2018 3:03 PM INTERNAL AFFAIRS INVESTIGATOR [facility] STAIN RESULT: NO YEAST OR FUNGAL ELEMENTS SEEN 07/06/2018 1:54 PM INTERNAL AFFAIRS INVESTIGATOR [facility] CULTURE RESULT NO FUNGUS ISOLATED AT 4 WEEKS. 08/04/2018 1:08 PM INTERNAL AFFAIRS INVESTIGATOR [facility] ORAL CAVITY SPECIMEN / Unknown 07/05/2018 3:02 PM INTERNAL AFFAIRS INVESTIGATOR 07/05/2018 3:29 PM INTERNAL AFFAIRS INVESTIGATOR Lanre Parekh DO MICROBIOLOGY - GENERAL O RDERABLES Final Result Performing Organization Address [facility]/ZIP Co de Phone Number [facility] [address] [place] [address], [place] [phone] * CULTURE THROAT ALL ORG (07/05/2018 3:02 PM INTERNAL AFFAIRS INVESTIGATOR) SPEC DESCRIPTION THROAT 07/05/2018 3:02 PM INTERNAL AFFAIRS INVESTIGATOR [facility] SPECIAL REQUESTS NO SPECIAL REQUEST 07/05/2018 3:02 PM [facility] CULTURE RESULT HEAVY GROWTH OF NORMAL CANDACE PRESENT 07/07/2018 8:21 AM INTERNAL AFFAIRS INVESTIGATOR [facility] THROAT SWAB / Unknown 07/05/2018 3:02 PM INTERNAL AFFAIRS INVESTIGATOR 07/05/2018 3:28 PM INTERNAL AFFAIRS INVESTIGATOR us Lanre Parekh DO MICROBIOLOGY - GENERAL O RDERABLES Final Result Performing Organization Address City/[facility] [[email or web address]] Co de Phone Number [facility] [address] [place] [address], documented in this encounter Visit Diagnoses Diagnosis Sore throat Acute pharyngitis Pharyngitis due to other organism documented in this encounter Care Teams Youth Corrections Officer Relationship Specialty Start Date End Date Lanre Parekh DO [address] [place] [address] PCP - General FAMILY PRACTICE 06/28/18 09/06/22 documented as of this encounter
--- OUTSIDE RECORDS SUMMARY | 2024-07-09 05:18 | XMS_ITS | Encounter Summary ---
Author Organization [facility] Address [address] [place] [address]. [place], [place] [id number] [place] [address] Care Team Providers Care Medical Administrative Specialist Name Role Phone Lanre Parekh Soni HUMPHREY Primary Care Provider + Reason for Visit * Reason Comments URI Encounter Details Date Type Department Care Team (Late st Contact Info) Description 11/18/2018 10:00 AM CDT Office Visit [facility] Medical Group Family & Internal Medicine [facility] [address] [place] [address] Aleja Domingo, MERLE [address] [place] [address] URI Social History Tobacco Use Types Packs/Day Years [...] Sex Assigned at Male 07/01/2024 9:54 AM WHITE KID BUFFER Legal Sex Male 8:28 AM WHITE KID BUFFER Gender Identity Male 07/01/2024 9:54 AM WHITE KID BUFFER Sexual Orientation Not on file documented as of this encounter Last Filed Vital Signs Vital Sign Reading Time Taken Comments Blood Pressure 107/74 11/18/2018 10:06 AM CDT Pulse 87 11/18/2018 10:06 AM CDT Temperature 36.6 ??C (97.8 ??F) 11/18/2018 10:06 AM C DT Respiratory Rate 14 11/18/2018 10:06 AM CDT Oxygen Saturation 99% 11/18/2018 10:06 AM CDT Inhaled Oxygen Concentration - - Weight 79.8 kg (176 lb) 11/18/2018 10:06 AM CDT Height 172.7 cm (5' 8 ) 11/18/2018 10:06 AM CDT Body Mass Index 26.76 11/18/2018 10:06 AM CDT documented in this encounter Progress Notes * MERLE Lassiter - 11/18/2018 10:00 AM CDT Images from the original note were not included. [facility] FAMILY AND INTERNAL MEDICINE OFFICE VISIT Reason for Visit: URI History of Present Illness: Pt here today with c/o fever, sore throat, pus pockets in his throat, fatigue that started last week . He was seen at [facility] (rapid strep neg) but was started on amox anyway. Pt states he is not feeling any better. He has had similar problems to this back in Jul and was referred to ENT. Pt states he did follow upwith them but wasn't really told anything and that it would clear up . Was treated with several antibiotics and nystatin in the past and states nothing really helped and symptoms eventually resolved on own. He was given prednisone and states this seemed to help. ROS: Review of Systems Constitutional: Positive for chills, fever and malaise/fatigue. HENT: Positive for sore throat. Negative for congestion, ear pain, hearing loss and sinus pain. Eyes: Negative for blurred vision and double vision. Respiratory: Negative for cough, shortness of breath and wheezing. Cardiovascular: Negative for chest pain, palpitations and leg swelling. Gastrointestinal: Negative for abdominal pain and vomiting. Skin: Negative for itching and rash. Neurological: Negative for dizziness and headaches. Medications: Current Outpatient Medications: ??? balsalazide 750 MG capsule, TAKE 3 CAPSULES 3 TIMES DAILY.( clarified script), Disp: , Rfl: ??? calcium carbonate (CALCIUM 600) 600 MG tablet, every morning., Disp: , Rfl: ??? cefdinir 300 MG Cap capsule, Take 1 capsule (300 mg total) by mouth 2 (two) times daily., Disp:20 capsule, Rfl: 0 ??? Cholecalciferol (D3-1000) 1000 units capsule, Take 1,000 Units by mouth., Disp: , Rfl: ??? colestipol 1 g tablet, Take 1 g by mouth., Disp: , Rfl: ??? folic acid 1 MG tablet, TK 1 T PO D UTD, Disp: , Rfl: 3 ??? HUMIRA PEN 40 MG/0.8ML injection, , Disp: , Rfl: ??? mercaptopurine 50 MG tablet, , Disp: , Rfl: ??? [place]-3 Fatty Acids ([employer]S FISH OIL) 1000 MG Cap, , Disp: , Rfl: ??? predniSONE 20 MG tablet, Take 2 tabs by mouth once daily for 3 days and one tab by mouth once daily for 2 days., Disp: 8 tablet, Rfl: 0 ??? Probiotic Product (PROBIOTIC ADVANCED OR), , Disp: , Rfl: ??? Turmeric Powder, Take 1,500 mg by mouth., Disp: , Rfl: ??? vitamin D2, ergocalciferol, 93545 UNITS capsule, Take 50,000 Units by mouth., Disp: , Rfl: ??? vitamin E 100 UNIT capsule, , Disp: , Rfl: Allergies: Allergies Allergen Reactions ??? Metronidazole Other (see comment) Neuropathy Medical History: Past Medical History: Diagnosis Date ??? Crohn's disease of both small and large intestine ([facility]) 01/25/2017 Overview: Onset: 2004. Phenotype and distribution: Stricturing Primarily involving the ileum with some concern for fistulizing disease though no evidence of fistula penetrating colon lumen during surgery in 2018 Medical therapies: Previously treated with prednisone for at least 2 continuous years, flagyl, Asacol, Azathioprine ([id number]), Remicade ([id number], switched for insurance purposes), Hu ??? Iritis ??? Osteoporosis 12/07/2017 Last Assessment & Plan: Please follow Dr. Mckeon's instructions regarding calcium supplementation (notation for 24hr urine calcium provided to patient). Likely on too much calcium supplementation between his multivitamin and calcium supplements.This can contribute to kidney stones especially in the context of ileal Crohn's disease. Surgical History: Past Surgical History: Procedure Laterality Date ??? HC COLON RESECTION 12/2017 Likely ilioresection ??? VASECTOMY Social History: Social History Socioeconomic History ??? Marital status: [...] file Gets together: Not on file Attends sabianism service: Not on file Active member of [...] Social History Narrative ??? Not on file Family History: Family History Problem Relation Name Age of Onset ??? Hypertension Mother ??? Psychiatry Mother ??? Hypertension Father ??? Cancer Paternal Grandfather PE: Physical Exam Constitutional: He is oriented to person, place, and time and well-developed, well-nourished, and in no distress. No distress. HENT: Head: Normocephalic and atraumatic. Right Ear: External ear normal. Left Ear: External ear normal. Mouth/Throat: Oropharyngeal exudate present. Exudate covering most of his tonsils. Oropharynx erythematous and swollen Eyes: Conjunctivae and EOM are normal. No scleral icterus. Neck: Normal range of motion. Neck supple. No tracheal deviation present. Cardiovascular: Normal rate, regular rhythm and normal heart sounds. Pulmonary/Chest: Effort normal and breath sounds normal. No stridor. No respiratory distress. He has no wheezes. He has no rales. Abdominal: Soft. Bowel sounds are normal. He exhibits no distension and no mass. There is no tenderness. There is no rebound and no guarding. Musculoskeletal: Normal range of motion. He exhibits no deformity. Lymphadenopathy: He has cervical adenopathy. Neurological: He is alert and oriented to person, place, and time. Gait normal. Skin: Skin is warm and dry. No rash noted. He is not diaphoretic. No erythema. No pallor. Psychiatric: Mood and affect normal. Nursing note and vitals reviewed. Filed Vitals: 11/18/18 1006 BP: 107/74 Pulse: 87 Resp: 14 Temp: 97.8 ??F (36.6 ??C) SpO2: 99% Weight: 79.8 kg (176 lb) Height: 5' 8 (1.727 m) Labs: Labs Reviewed Diagnoses/Impression: 1. Sore throat RAPID STREP A CULTURE THROAT ALL ORG 2. Acute pharyngitis, unspecified etiology cefdinir 300 MG Cap capsule predniSONE 20 MG tablet Recommendations and Plan: 1. Sore throat - RAPID STREP A - CULTURE THROAT ALL ORG; Future - CULTURE THROAT ALL ORG 2. Acute pharyngitis, unspecified etiology - cefdinir 300 MG Cap capsule; Take 1 capsule (300 mg total) by mouth 2 (two) times daily. Dispense: 20 capsule; Refill: 0 - predniSONE 20 MG tablet; Take 2 tabs by mouth once daily for 3 days and one tab by mouth once daily for 2 days. Dispense: 8 tablet; Refill: 0 Rapid strep negative. Throat culture sent. Abx changed to cefdinir. He is to stop the amoxicillin. Prednisone ordered as well. Advised of risks, benefits and side effects. He is to follow up later inthe week with Dr. Parekh. In the meantime, he is to let me know if symptoms worsen. Orders Placed This Encounter ??? mercaptopurine 50 MG tablet ??? HUMIRA PEN 40 MG/0.8ML injection ??? DISCONTD: amoxicillin 875 MG tablet ??? cefdinir 300 MG Cap capsule ??? predniSONE 20 MG tablet ??? RAPID STREP A ??? CULTURE THROAT ALL ORG Cannot display discharge medications since this is not an admission. PCP: MERLE Lassiter 11/18/2018 documented in this encounter Plan of Treatment Not on file documented as of this encounter Procedures Procedure Name Priority Date/Time Associated Diagnosis Comments CULTURE THROAT ALL ORG Routine 11/18/2018 10:38 AM CDT Sore throat RAPID STREP A Routine 11/18/2018 Sore throat documented in this encounter Results * CULTURE THROAT ALL ORG (11/18/2018 10:38 AM CDT) CULTURE RESULT [facility] [place] Comment: ??CULTURE, THROAT ?MICRO NUMBER: ?[id number] ??TEST STATUS: ? FINAL ??SPECIMEN SOURCE: ?? THROAT ??SPECIMEN QUALITY: ??ADEQUATE ??RESULT: ?No oropharyngeal pathogens recovered. STRUCTURE OF ANTERIOR PORTION OF NECK / Unknown 11/18/2018 10:38 AM CDT 11/19/2018 2:43 AM CDT Narrative Resulting Agency Comment Performing Organization Information: ?Site ID: [id number] ?[facility]: [facility] ?Address: [address] [place] [phone] ?Director: Hien Leavitt Aleja BLOOM MICROBIOLOGY - GENERAL ORDE RABADAM Final Result Performing Organization Address City/[facility]/ZIP Co de Phone Number [facility] [phone] * RAPID STREP A (11/18/2018) RAPID STREP TEST negative NEGATIVE [facility] Internal Control: VALID VALID [facility] STRUCTURE OF ANTERIOR PORTION OF NECK / Unknown 11/18/2018 Aleja BLOOM MICROBIOLOGY - GENERAL ORDE RABLES Final Result Performing Organization Address [facility]/ZIP Co de Phone Number [facility] [address] [place] [address], documented in this encounter Visit Diagnoses Diagnosis Sore throat- Primary Acute pharyngitis Acute pharyngitis, unspecified etiology documented in this encounter Care Teams Medical Administrative Specialist Relationship Specialty Start Date End Date Lanre Parekh DO [address] [place] [address] PCP - General FAMILY PRACTICE 06/28/18 09/06/22 documented as of this encounter
--- OUTSIDE RECORDS SUMMARY | 2024-07-09 05:18 | XMS_ITS | Encounter Summary ---
Author Organization [facility] Address [address] [place] [address]. [place], [place] [address] [place] [address] Care Team Providers Care Planting Machine Crewman Name Role Phone Lanre Parekh DO Primary Care Provider + Encounter Details Date Type Department Care Team (Latest Contact Info) Description 01/23/2019 Scan HEALTH INFO SRVCS Scanned, Documents Social [...] Sex Assigned at Male 07/01/2024 9:54 AM PETROLEUM ANALYST Legal Sex Male 8:28 AM PETROLEUM ANALYST Gender Identity Male 07/01/2024 9:54 AM PETROLEUM ANALYST Sexual Orientation Not on file documented as of this encounter Plan of Treatment Not on file documented as of this encounter Visit Diagnoses Not on filedocumented in this encounter Care Teams Planting Machine Crewman Relationship Specialty Start Date End Date Lanre Parekh DO [address] [place] [address] PCP - General FAMILY PRACTICE 06/28/18 09/06/22 documented as of this encounter
--- OUTSIDE RECORDS SUMMARY | 2024-07-09 05:18 | XMS_ITS | Encounter Summary ---
Author Organization [facility] Address [address] [place] [address]. [place], [place] [address] [place] [address] Care Team Providers Care Manager Underwriting Name Role Phone Lanre Parekh DO Primary Care Provider + Reason for Visit * Reason Comments Follow Up lab results Encounter Details Date Type Department Care Team (Late st Contact Info) Description 06/06/2019 7:40 AM NEWS PRODUCTION ASSISTANT Office Visit [facility] Medical Group Family & Internal Medicine [address] [place] [address] Lanre Parekh DO [facility] [place] [address] Follow Up (lab results) Social History Tobacco Use Types Packs/Day Years [...] Sex Assigned at Male 07/01/2024 9:54 AM NEWS PRODUCTION ASSISTANT Legal Sex Male 8:28 AM NEWS PRODUCTION ASSISTANT Gender Identity Male 07/01/2024 9:54 AM NEWS PRODUCTION ASSISTANT Sexual Orientation Not on file documented as of this encounter Last Filed Vital Signs Vital Sign Reading Time Taken Comments Blood Pressure 114/68 06/06/2019 7:51 AM NEWS PRODUCTION ASSISTANT Pulse 93 06/06/2019 7:51 AM NEWS PRODUCTION ASSISTANT Temperature 37.1 ??C (98.8 ??F) 06/06/2019 7:51 AM CS T Respiratory Rate 16 06/06/2019 7:51 AM NEWS PRODUCTION ASSISTANT Oxygen Saturation 98% 06/06/2019 7:51 AM NEWS PRODUCTION ASSISTANT Inhaled Oxygen Concentration - - Weight 79.5 kg (175 lb 6 oz) 06/06/2019 7:51 AM NEWS PRODUCTION ASSISTANT Height 172.7 cm (5' 8 ) 06/06/2019 7:51 AM NEWS PRODUCTION ASSISTANT Body Mass Index 26.67 06/06/2019 7:51 AM NEWS PRODUCTION ASSISTANT documented in this encounter Progress Notes * Zohra Joe MA - 06/06/2019 7:40 AM CSTAddended by: ZOHRA JOE on: 06/06/2019 09:13 AM Modules accepted: Orders PRODUCTION ASSISTANT * Lanre Parekh DO - 06/06/2019 7:40 AM CST Images from the original note were not included. GENERAL OFFICE VISIT Encounter Date: 06/06/2019 Chief Complaint: 28-year-old male presents for Follow Up (lab results) HPI: Pt presents for lab results. He had lab results done at an outside facility. He saw pt was anemic, which he has had previously and is not significantly different from his labs in July. His Vit D was WNL. His 6-TG was low, which is being rechecked by GI. He has no acute symptoms today, although he does have some degree of fatigue at all times. He is contacting his sleep specialist about obtaining his APAP as they requested. He is still seeing GI and a Bone Health specialist. Review of Systems Constitutional: Positive for fatigue. Negative for fever. Respiratory: Negative for shortness of breath. Cardiovascular: Negative for chest pain. Gastrointestinal: Negative for blood in stool. Patient Active Problem List Diagnosis ??? Arthritis [...] least 2 continuous years, flagyl, Asacol, Azathioprine ([id number]), Remicade (0759-6655, switched for insurance purposes), Hu ??? Iritis [...] file Gets together: Not on file Attends confucianism service: Not on file Active member of [...] ??? Multiple Vitamins-Minerals (MULTIVITAMIN ADULT OR) ??? vitamin D2, ergocalciferol, 39064 UNITS capsule Take 50,000 Units by mouth monthly. ??? [place]-3 Fatty Acids ([employer]S FISH OIL) 1000 MG Cap ??? Probiotic Product (PROBIOTIC ADVANCED OR) ??? Turmeric Powder Take 1,500 mg by mouth. No current facility-administered medications for [...] ??? Multiple Vitamins-Minerals (MULTIVITAMIN ADULT OR) ??? vitamin D2, ergocalciferol, 63240 UNITS capsule Take 50,000 Units by mouth monthly. ??? [place]-3 Fatty Acids ([employer]S FISH OIL) 1000 MG Cap ??? Probiotic Product (PROBIOTIC ADVANCED OR) ??? Turmeric Powder Take 1,500 mg by mouth. No current facility-administered medications on file prior to visit. Allergies Allergen Reactions ??? Metronidazole Other (see comment) Neuropathy Objective: Filed Vitals: 06/06/19 0751 BP: 114/68 Pulse: 93 Resp: 16 Temp: 98.8 ??F (37.1 ??C) SpO2: 98% Weight: 79.5 kg (175 lb 6 oz) Height: 5' 8 (1.727 m) Physical Exam Constitutional: He is oriented to person, place, and time and well-developed, well-nourished, and in no distress. No distress. HENT: Head: Normocephalic and atraumatic. Right Ear: Tympanic membrane, external ear and ear canal normal. Left Ear: Tympanic membrane, external ear and ear canal normal. Mouth/Throat: Oropharynx is clear and moist. No oropharyngeal exudate. Eyes: Conjunctivae are normal. Neck: Neck supple. Cardiovascular: Normal rate, regular [...] Affect normal. Nursing note and vitals reviewed. Assessment & Plan: Nic was seen today for follow up. Diagnoses and all orders for this visit: Anemia, unspecified type - BLOOD SMEAR INTERPRETATION BY MD; Future - IRON SAT PANEL (IRON,IBC,%SAT); Future - FERRITIN; Future - VITAMIN B12 / FOLATE; Future - RETICULOCYTE CT, AUTO; Future - CBC, AUTO, NO DIFF; Future - BLOOD SMEAR INTERPRETATION BY MD - IRON SAT PANEL (IRON,IBC,%SAT) - FERRITIN - VITAMIN B12 / FOLATE - RETICULOCYTE CT, AUTO - CBC, AUTO, NO DIFF Discussion/Summary: Will order blood work as per above, but I suspect pt's anemia is secondary to anemia of chronic disease. Will dictate further treatment based upon these results. Will have pt f/u with regular appointments otherwise and with specialists as indicated. Lanre Parekh DO PRODUCTION ASSISTANT documented in this encounter Plan of Treatment Not on file documented as of this encounter Procedures Procedure Name Priority Date/Time Associated Diagnosis Comments COLLECTION VENOUS BLOOD VENIPUNCTURE Routine 06/06/2019 9:13 AM NEWS PRODUCTION ASSISTANT Anemia, unspecified type VITAMIN B12 / FOLATE Routine 06/06/2019 8:17 AM NEWS PRODUCTION ASSISTANT Anemia, unspecified type IRON SAT PANEL (IRON,IBC,%SAT) Routine 06/06/2019 8:17 AM NEWS PRODUCTION ASSISTANT Anemia, unspecified type RETICULOCYTE CT, AUTO Routine 06/06/2019 8:17 AM NEWS PRODUCTION ASSISTANT Anemia, unspecified type BLOOD SMEAR INTERPRETATION BY Routine 06/06/2019 8:17 AM NEWS PRODUCTION ASSISTANT Anemia, unspecified type CBC, AUTO, NO DIFF Routine 06/06/2019 8: 17 AM NEWS PRODUCTION ASSISTANT Anemia, unspecified type FERRITIN Routine 06/06/2019 8:17 AM NEWS PRODUCTION ASSISTANT Anemia, unspecified type documented in this encounter Results * (ABNORMAL) CBC, AUTO, NO DIFF (06/06/2019 8:17 AM NEWS PRODUCTION ASSISTANT) WBC 5.7 3.8 - 10.8 Thousand/u L [facility] RBC 3.86(L) 4.20 - 5.80 Million/uL [facility] HGB 13.4 13.2 - 17.1 g/dL [facility] HCT 38.7 38.5 - 50.0 % [facility] MCV 100.3(H) 80.0 - 100.0 fL [facility] MCH (QHPE) 34.7(H) 27.0 - 33.0 pg [facility] MCHC 34.6 32.0 - 36.0 g/dL [facility] RDW (QHPE) 14.5 11.0 - 15.0 % [facility] PLT 178 140 - 400 Thousand/u L [facility] MPV 10.8 7.5 - 12.5 fL [facility] 06/06/2019 8:17 AM NEWS PRODUCTION ASSISTANT 06/07/2019 6:55 AM NEWS PRODUCTION ASSISTANT Narrative Resulting Agency Comment Performing Organization Information: ?Site ID: [id number] ?Name: [facility] ?Address: [address] [place] [address] [place] [address] ?Director: Christopher Salas D.O. MPH us Lanre Parekh DO LABORATORY Final Re sult Performing Organization Address [facility]/ZIP Co de Phone Number [facility] * RETICULOCYTE CT, AUTO (06/06/2019 8:17 AM NEWS PRODUCTION ASSISTANT) RETICULOCYTE COUNT 0.9 % [facility] RETICULOCYTE COUNT 34,740 25,000 - 90,000 cells/uL [facility] 06/06/2019 8:17 AM NEWS PRODUCTION ASSISTANT 06/07/2019 6:55 AM NEWS PRODUCTION ASSISTANT Narrative Resulting Agency Comment Performing Organization Information: ?Site ID: [place] ?Name: [facility] ?Address: [address] [place] [address] [place] [address] ?Director: Christopher Salas D.O., MPH us Lanre Parekh DO LABORATORY Final Re sult Performing Organization Address [facility]/ZIP Co de Phone Number [facility] * VITAMIN B12 / FOLATE (06/06/2019 8:17 AM NEWS PRODUCTION ASSISTANT) VITAMIN B12 S/P/B 550 200 - 1,100 pg/mL [facility] FOLATE >24.0 ng/mL [facility] Comment: ? Reference Range ? Low: ? <3.4 ? Borderline: ?3.4-5.4 ? Normal: ?>5.4 06/06/2019 8:17 AM NEWS PRODUCTION ASSISTANT 06/07/2019 6:13 AM NEWS PRODUCTION ASSISTANT Narrative Resulting Agency Comment Performing Organization Information: ?Site ID: [id number] ?Name: [facility] ?Address: [place] [address] ?Director: Christopher Salas D.O., MPH Lanre Parekh DO LABORATORY Final Re sult Performing Organization Address [facility] de Phone Number [facility] * FERRITIN (06/06/2019 8:17 AM NEWS PRODUCTION ASSISTANT) FERRITIN 91 38 - 380 ng/mL [facility] 06/06/2019 8:17 AM NEWS PRODUCTION ASSISTANT 06/07/2019 6:55 AM NEWS PRODUCTION ASSISTANT Narrative Resulting Agency Comment Performing Organization Information: ?Site ID: [email or web address] ?Name: [facility] ?Address: [place] [address] ?Director: Christopher Salas D.O. MPH Lanre Parekh DO LABORATORY Final Re sult Performing Organization Address [facility] de Phone Number [facility] * IRON SAT PANEL (IRON,IBC,%SAT) (06/06/2019 8:17 AM NEWS PRODUCTION ASSISTANT) IRON 104 50 - 195 mcg/dL [facility] IRON BINDING CAPACITY 370 250 - 425 mcg/dL (calc) [facility] % IRON SATURATION 28 20 - 48 % (calc) [facility] 06/06/2019 8:17 AM NEWS PRODUCTION ASSISTANT 06/07/2019 6:55 AM NEWS PRODUCTION ASSISTANT Narrative Resulting Agency Comment Performing Organization Information: ?Site ID: [email or web address] ?Name: [facility] ?Address: [facility] [place] [address] ?Director: Christopher Salas D.O., MPH us Lanre Parekh DO LABORATORY Final Re sult Performing Organization Address [facility] Co de Phone Number [facility] * BLOOD SMEAR INTERPRETATION BY (06/06/2019 8:17 AM NEWS PRODUCTION ASSISTANT) SMEAR TO PATHOLOGIST [facility] Comment: RED BLOOD CELLS: MILD ANISOCYTOSIS AND POIKILOCYTOSIS. WHITE BLOOD CELLS: FULL MATURATION OF THE GRANULOCYTIC SERIES. OCCASIONAL ACTIVATED LYMPHOCYTES PRESENT. PLATELETS: ADEQUATE. MANUAL DIFFERENTIAL: 58% POLYSEGMENTED NEUTROPHILS 38% LYMPHOCYTES 4% MONOCYTES ?? IMPRESSION: MACROCYTOSIS PRESENT. CLINICAL CORRELATION RECOMMENDED. (GCM/DLP) THIS PERIPHERAL BLOOD SMEAR WAS REVIEWED BY: Joe CAMPBELL M.D. [facility] [id number] [place], [place] [id number] [phone] CLIA ID NO. [id number] 06/06/2019 8:17 AM NEWS PRODUCTION ASSISTANT 06/07/2019 6:55 AM NEWS PRODUCTION ASSISTANT Narrative Resulting Agency Comment Performing Organization Information: ?Site ID: [place] ?Name: [facility] ?Address: [facility] [place] [address] ?Director: Christopher Salas D.O., MPH Lanre Parekh DO LABORATORY Final Re sult Performing Organization Address [facility] Co de Phone Number [facility] documented in this encounter Visit Diagnoses Diagnosis Anemia, unspecified type- Primary documented in this encounter Care Teams Manager Underwriting Relationship Specialty Start Date End Date Lanre Parekh DO [address] [place] [address] PCP - General FAMILY PRACTICE 06/28/18 09/06/22 documented as of this encounter
--- OUTSIDE RECORDS SUMMARY | 2024-07-09 05:18 | XMS_ITS | Encounter Summary ---
Author Organization [facility] Address [address] [place] [address]. [place], [place] [id number] [place] [phone] Care Team Providers Care Development Lead Name Role Phone Lanre Parekh DO Primary Care Provider + Reason for Visit * Reason Comments New Patient Sore Throat swollen lymph nodes Encounter Details Date Type Department Care Team (Late st Contact Info) Description 07/05/2018 7:00 AM PREVENTION COORDINATOR Office Visit [facility] Family & Internal Medicine [address] [phone] Lanre Parekh DO [address] [place] [address] [phone] New Patient; Sore Throat (swollen lymph nodes) Social History Tobacco Use Types Packs/Day Years [...] Sex Assigned at Male 07/01/2024 9:54 AM PREVENTION COORDINATOR Legal Sex Male 8:28 AM PREVENTION COORDINATOR Gender Identity Male 07/01/2024 9:54 AM PREVENTION COORDINATOR Sexual Orientation Not on file documented as of this encounter Last Filed Vital Signs Vital Sign Reading Time Taken Comments Blood Pressure 100/64 07/05/2018 7:34 AM PREVENTION COORDINATOR Pulse 82 07/05/2018 7:34 AM PREVENTION COORDINATOR Temperature - - Respiratory Rate 16 07/05/2018 7:34 AM PREVENTION COORDINATOR Oxygen Saturation 97% 07/05/2018 7:34 AM PREVENTION COORDINATOR Inhaled Oxygen Concentration - - Weight 78.9 kg (174 lb) 07/05/2018 7:34 AM PREVENTION COORDINATOR Height 172.7 cm (5' 8 ) 07/05/2018 7:34 AM PREVENTION COORDINATOR Body Mass Index 26.46 07/05/2018 7:34 AM PREVENTION COORDINATOR documented in this encounter Progress Notes * Lanre Soni Parekh, DO - 07/05/2018 7:00 AM CST Images from the original note were not included. GENERAL OFFICE VISIT Encounter Date: 07/05/2018 Chief Complaint: 27-year-old male presents for New Patient and Sore Throat (swollen lymph nodes) Patient presents today for sore throat. This has been an off-and-on problem since the beginning of June. He has been seen at urgent care twice and in the ER once. Has been given doxycycline and prednisone which did initially improve symptoms but they returned. Most recent evaluation was on 06/29/18 where he was diagnosed with oropharyngeal candidiasis. He was treated with nystatin mouthwash. Patient notes that this has improved somewhat but his tonsils continue to be swollen and and pain aswell as some enlarged cervical lymphadenopathy. Patient is noted to be on Humira and methotrexate for his Crohn's disease. No GI symptoms at this time. No fevers or other upper respiratory symptoms. Has been checked for strep on essentially all occasions per patient. He has not had any blood work or had other culture sent other than strep culture. Sees GI for his crohn's and bone health specialist for osteoporosis 2/2 chronic prednisone use. Review of Systems Constitutional: Negative for fever. HENT: See HPI Eyes: Negative for discharge. Respiratory: Negative for shortness of breath. Cardiovascular: Negative for chest pain. Gastrointestinal: Negative for abdominal pain, diarrhea, nausea and vomiting. See HPI Genitourinary: Negative for dysuria. Skin: Negative for rash. Neurological: Negative for loss of consciousness. Endo/Heme/Allergies: Does not bruise/bleed easily. Patient Active Problem List Diagnosis ??? Arthritis ??? Crohn's disease (HCC) ??? Crohn's disease of both small and large intestine (HCC) ??? Generalized abdominal pain ??? Diarrhea due to malabsorption ??? History of high risk medication treatment ??? Iritis ??? Osteoporosis Past Medical History: Diagnosis Date ??? Crohn's disease of both small and large intestine (HCC) 01/25/2017 Overview: Onset: 2004. Phenotype and distribution: Stricturing Primarily involving the ileum with some concern for fistulizing disease though no evidence of fistula penetrating colon lumen during surgery in 2018 Medical therapies: Previously treated with prednisone for at least 2 continuous years, flagyl, Asacol, Azathioprine ([id number]), Remicade ([id number], switched for insurance purposes), Hu ??? Osteoporosis 12/07/2017 Last Assessment & Plan: [...] ilioresection ??? VASECTOMY Family History Problem Relation Age of Onset ??? Hypertension Mother ??? Psychiatry Mother ??? Hypertension Father ??? Cancer Paternal Grandfather Social History Socioeconomic History ??? Marital status: Spouse name: Not on file ??? Number of children: Not on file ??? Years of education: Not on file ??? Highest education level: Not on file Social Needs ??? Financial resource strain: Not on file ??? Food insecurity - worry: Not on file ??? Food insecurity - inability: Not on file ??? Transportation needs - medical: Not on file ??? Transportation needs - non-medical: Not on file Occupational History ??? Not on file Tobacco Use ??? Smoking status: Never Smoker ??? Smokeless tobacco: Never Used Substance and Sexual Activity ??? Alcohol use: Yes Frequency: Monthly or less ??? Drug use: No ??? Sexual activity: Yes Other Topics Concern ??? Not on file Social History Narrative ??? Not on file Immunization History Administered Date(s) Administered ??? Pneumococcal (Pneumovax 23) 05/17/2017 ??? Pneumococcal (Prevnar 13) 01/25/2017 ??? Tdap (Generic) 02/09/2014 Current Outpatient Medications Medication Sig Dispense Refill ??? ADALIMUMAB SC Inject 40 mg into the skin. ??? balsalazide 750 MG capsule TAKE 3 CAPSULES 3 TIMES DAILY.( clarified script) ??? calcium carbonate (CALCIUM 600) 600 MG tablet every morning. ??? cefdinir 300 MG Cap capsule Take 1 capsule (300 mg total) by mouth 2 (two) times daily. 20 capsule 0 ??? colestipol 1 g tablet Take 1 g by mouth. ??? DOCOSAHEXAENOIC ACID OR 1 capsule. ??? hyoscyamine 0.125 MG tablet Take 0.125 mg by mouth. ??? methotrexate 2.5 MG tablet Take 10 Tablets by mouth weekly all at once on the same day ([facility] due every 3 months 05/19) ??? vitamin D2, ergocalciferol, 28190 UNITS capsule Take 50,000 Units by mouth. ??? Cholecalciferol (D3-1000) 1000 units capsule Take 1,000 Units by mouth. ??? Cyanocobalamin 100 MCG Lozenge ??? fexofenadine 180 MG tablet TK 1 T PO D 0 ??? folic acid 1 MG tablet TK 1 T PO D UTD 3 ??? Multiple Minerals-Vitamins (NUTRA-SUPPORT BONE) Cap ??? nystatin 009825 UNIT/ML suspension G 5 ML PO QID FOR 7 DAYS 0 ??? Bowdle-3 Fatty Acids ([facility] FISH OIL) 1000 MG Cap ??? Probiotic Product (PROBIOTIC ADVANCED OR) ??? Turmeric Powder Take 1,500 mg by mouth. ??? vitamin E 100 UNIT capsule No current facility-administered medications for this visit. Current Outpatient Medications on File Prior to Visit Medication Sig ??? ADALIMUMAB SC Inject 40 mg into the skin. ??? balsalazide 750 MG capsule TAKE 3 CAPSULES 3 TIMES DAILY.( clarified script) ??? calcium carbonate (CALCIUM 600) 600 MG tablet every morning. ??? colestipol 1 g tablet Take 1 g by mouth. ??? DOCOSAHEXAENOIC ACID OR 1 capsule. ??? hyoscyamine 0.125 MG tablet Take 0.125 mg by mouth. ??? methotrexate 2.5 MG tablet Take 10 Tablets by mouth weekly all at once on the same day ([facility] due every 3 months 05/19) ??? vitamin D2, ergocalciferol, 46502 UNITS capsule Take 50,000 Units by mouth. ??? Cholecalciferol (D3-1000) 1000 units capsule Take 1,000 Units by mouth. ??? Cyanocobalamin 100 MCG Lozenge ??? fexofenadine 180 MG tablet TK 1 T PO D ??? folic acid 1 MG tablet TK 1 T PO D UTD ??? Multiple Minerals-Vitamins (NUTRA-SUPPORT BONE) Cap ??? nystatin 781131 UNIT/ML suspension G 5 ML PO QID FOR 7 DAYS ??? Bowdle-3 Fatty Acids ([facility] FISH OIL) 1000 MG Cap ??? Probiotic Product (PROBIOTIC ADVANCED OR) ??? Turmeric Powder Take 1,500 mg by mouth. ??? vitamin E 100 UNIT capsule No current facility-administered medications on file prior to visit. Allergies Allergen Reactions ??? Metronidazole Other (see comment) Neuropathy Objective: Vitals: 07/05/18 0734 BP: 100/64 Pulse: 82 Resp: 16 SpO2: 97% Physical Exam Constitutional: He is oriented to person, place, and time and well-developed, well-nourished, and in no distress. HENT: Head: Normocephalic and atraumatic. Right Ear: External ear normal. Left Ear: External ear normal. Mouth/Throat: Oropharyngeal exudate present. B/L tonsils enlarged and erythematous, no evidence of abscess, exudate only noted on tonsils Eyes: Conjunctivae are normal. Neck: Neck supple. [...] Affect normal. Nursing note and vitals reviewed. Rapid strep test unable to be obtained due to equipment malfunction Assessment & Plan: Nic was seen today for new patient and sore throat. Diagnoses and all orders for this visit: Pharyngitis due to other organism - YUNI BAKER VIRAL CAPSID AG, AB IGG; Future - YUNI BAKER VIRAL CAPSID AG, AB IGM; Future - CMV ANTIBODY, IGM; Future - CMV ANTIBODY IGG; Future - CULTURE THROAT ALL ORG; Future - CULTURE, FUNGUS W/ STAIN; Future - CBC W/DIFF AUTOMATED; Future - COMPREHENSIVE METABOLIC PANEL; Future - SED RATE, ERYTHROCYTE (ESR); Future - C-REACTIVE PROTEIN; Future - YUNI BAKER VIRAL CAPSID AG, AB IGM - cefdinir 300 MG Cap capsule; Take 1 capsule (300 mg total) by mouth 2 (two) times daily. Sore throat - Cancel: RAPID STREP A - CULTURE STREP A; Future - CULTURE STREP A - YUNI BAKER VIRAL CAPSID AG, AB IGG; Future - YUNI BAKER VIRAL CAPSID AG, AB IGM; Future - CMV ANTIBODY, IGM; Future - CMV ANTIBODY IGG; Future - CULTURE THROAT ALL ORG; Future - CULTURE, FUNGUS W/ STAIN; Future - CBC W/DIFF AUTOMATED; Future - COMPREHENSIVE METABOLIC PANEL; Future - SED RATE, ERYTHROCYTE (ESR); Future - C-REACTIVE PROTEIN; Future - YUNI BAKER VIRAL CAPSID AG, AB IGM Discussion/Summary: Given patient's chronic medications and chronic medical conditions, will attempt to isolate for other atypical organisms given current presentation. Patient has already finished his nystatin. Will start on cefdinir at this time. Will order cultures and blood test as per above. Instructed patient tocontact his GI doctor as well to ensure that this was not related to his chronic medical conditions. Patient verbalized understanding and agreed to plan above. Will have patient call back next week to let us know how he is doing. Lanre Parekh DO ENTION COORDINATOR documented in this encounter Plan of Treatment Not on file documented as of this encounter Results * (ABNORMAL) C-REACTIVE PROTEIN (07/05/2018 3:07 PM PREVENTION COORDINATOR) C-REACTIVE PROTEIN 1.02(H) <0.29 mg/dL 07/05/2018 3:49 PM PREVENTION COORDINATOR [facility] 07/05/2018 3:07 PM PREVENTION COORDINATOR us Lanre Parekh DO LABORATORY Final Re sult [facility] [address] [place] [address], [place] [phone] * (ABNORMAL) SED RATE, ERYTHROCYTE (ESR) (07/05/2018 3:07 PM PREVENTION COORDINATOR) Pathologist [facility] ESR 34(H) 0 - 15 MM/HR 07/06/2018 1:03 PM PREVENTION COORDINATOR [facility] 07/05/2018 3:07 PM PREVENTION COORDINATOR Lanre Parekh DO LABORATORY Final Re sult [facility] [address] [place] [address], [place] [phone] * (ABNORMAL) COMPREHENSIVE METABOLIC PANEL (07/05/2018 3:07 PM PREVENTION COORDINATOR) [facility] GLUCOSE 90 70 - 99 MG/DL 07/05/2018 3:49 PM [facility] BUN 14 7 - 18 MG/DL 07/05/2018 3:49 PM [facility] CREATININE S/P/B 0.86 0.7 - 1.3 MG/DL 07/05/2018 3:49 PM [facility] SODIUM S/P/B 137 136 - 145 MMOL/L 07/05/2018 3:49 PM [facility] POTASSIUM S/P/B 4.2 3.5 - 5.1 MMOL/L 07/05/2018 3:49 PM [facility] CHLORIDE S/P/B 105 100 - 108 MMOL/L 07/05/2018 3:49 PM [facility] CO2 27.6 21 - 32 MMOL/L 07/05/2018 3:49 PM [facility] CALCIUM S/P/B 9.0 8.5 - 10.1 MG/DL 07/05/2018 3:49 PM [facility] BILIRUBIN TOTAL S/P/B 0.4 0.2 - 1.2 MG/DL 07/05/2018 3:49 PM [facility] TOTAL PROTEIN S/P/B 8.1 6.4 - 8.2 G/DL 07/05/2018 3:49 PM [facility] ALBUMIN S/P/B 4.1 3.4 - 5.0 G/DL 07/05/2018 3:49 PM [facility] AST 12(L) 15 - 37 U/L 07/05/2018 3:49 PM [facility] ALT 27 16 - 60 U/L 07/05/2018 3:49 PM [facility] ALKALINE PHOSPHATASE S/P/B 93 50 - 136 U/L 07/05/2018 3:49 PM [facility] ANION GAP 8.6 8 - 20 MMOL/L 07/05/2018 3:49 PM [facility] BUN CREATININE RATIO 16.4 6 - 26 07/05/2018 3:49 PM [facility] A/G RATIO 1.0 1.0 - 2.0 RATIO 07/05/2018 3:49 PM [facility] EGFR NON-AFR. AMER. >90 >90 ML/MIN/1.7 3 M2 07/05/2018 3:49 PM [facility] EGFR AFR. AMER. >90 >90 ML/MIN/1.7 3 M2 07/05/2018 3:49 PM [facility] Comment: NOTE: eGFR is not calculated for patients <18 years of age. This is an estimated GFR (CKD EPI) and should not be used for calculating drug doses. 07/05/2018 3:07 PM PREVENTION COORDINATOR Lanre Parekh DO LABORATORY Final Re sult [facility] [address] [place] [address], * (ABNORMAL) CBC W/DIFF AUTOMATED (07/05/2018 3:07 PM PREVENTION COORDINATOR) WBC 7.4 4.5 - 11.0 x10'3/uL 07/05/2018 3:37 PM [facility] RBC 4.33(L) 4.70 - 6.10 x10'6/uL 07/05/2018 3:37 PM [facility] HGB 13.0(L) 14.0 - 18.0 G/DL 07/05/2018 3:37 PM [facility] HCT 39.4(L) 43.0 - 54.0 % 07/05/2018 3:37 PM [facility] MCV 91.0 80.0 - 94.0 FL 07/05/2018 3:37 PM [facility] MCH 30.0 27.0 - 31.0 PG 07/05/2018 3:37 PM [facility] MCHC 33.0 32.0 - 36.0 G/DL 07/05/2018 3:37 PM [facility] RDW 13.5 11.5 - 14.5 % 07/05/2018 3:37 PM [facility] PLT 252 130 - 400 x10'3/uL 07/05/2018 3:37 PM [facility] MPV 10.2 9.3 - 12.2 FL 07/05/2018 3:37 PM [facility] DIFFERENTIAL TYPE AUTOMATED DIFFERENTIAL 07/05/2018 3:37 PM [facility] NEUTROPHILS % 54.8 % 07/05/2018 3:37 PM PREVENTION COORDINATOR [facility] LYMPHOCYTES % 35.6 % 07/05/2018 3:37 PM PREVENTION COORDINATOR [facility] MONOCYTES % 7.1 % 07/05/2018 3:37 PM PREVENTION COORDINATOR [facility] EOSINOPHILS 1.5 % 07/05/2018 3:37 PM PREVENTION COORDINATOR [facility] BASOPHILS 0.7 % 07/05/2018 3:37 PM PREVENTION COORDINATOR [facility] IMMATURE GRANS % 0.3(H) 0 % 07/05/19 19 3:37 PM PREVENTION COORDINATOR [facility] ABS. NEUTROPHILS TOTAL 4.07 1.80 - 7.70 x10'3/uL 07/05/2018 3:37 PM PREVENTION COORDINATOR [facility] ABS. LYMPHOCYTES 2.64 1.00 - 4.80 x10'3/uL 07/05/2018 3:37 PM PREVENTION COORDINATOR [facility] ABS. MONOCYTES 0.53 0.30 - 0.82 x10'3/uL 07/05/2018 3:37 PM PREVENTION COORDINATOR [facility] ABS. EOSINOPHILS 0.11 0.04 - 0.54 x10'3/uL 07/05/2018 3:37 PM PREVENTION COORDINATOR [facility] ABS. BASOPHILS 0.05 0.01 - 0.08 x10'3/uL 07/05/2018 3:37 PM PREVENTION COORDINATOR [facility] ABS. IMMATURE GRANULOCYTES 0.02 0.00 - 0.03 x10'3/uL 07/05/2018 3:37 PM PREVENTION COORDINATOR [facility] 07/05/2018 3:07 PM PREVENTION COORDINATOR us Lanre Parekh DO LABORATORY Final Re sult [facility] [address] [place] [address], * CMV ANTIBODY IGG (07/05/2018 3:07 PM PREVENTION COORDINATOR) CMV IGG <0.60 <0.60 U/mL 07/10/2018 9:01 AM PREVENTION COORDINATOR [employer] MIMI GIL Comment: ??U/mL ? Interpretation ? <0.60 ?? Negative 0.60 - 0.69 ?? Equivocal > or = 0.70 ?? 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 ??It does not differentiate between an active or past infection. Test Performed by Valerie Au, [employer] [facility], [address] [place], [place] Sai Dodson M.D., Ph.D., Director of Laboratories , [facility] [id number] 07/05/2018 3:07 PM PREVENTION COORDINATOR Lanre Parekh DO LABORATORY Final Re sult [facility] [address] [place] [address], * CMV ANTIBODY, IGM (07/05/2018 3:07 PM PREVENTION COORDINATOR) CMV IGM <30.00 <30.00 AU/mL 07/09/2018 10:40 AM PREVENTION COORDINATOR [employer]REW GIL Comment: ?? AU/mL ? Interpretation ? < [...] two or more weeks. Test Performed by [email or web address] Valerie Anafore, [address] [place], [place] Sai Dodson M.D., Ph.D., Director of Laboratories , CLIA [id number] 07/05/2018 3:07 PM PREVENTION COORDINATOR Lanre Parekh DO LABORATORY Final Re sult [employer] [address], * (ABNORMAL) YUNI BAKER VIRAL CAPSID AG, AB IGG (07/05/2018 3:07 PM PREVENTION COORDINATOR) Pathologist [facility] EBV VCA IGG 240.00(H) <18.00 U/mL 07/09/2018 4:31 PM PREVENTION COORDINATOR [employer] MIMI GIL Comment: ?? U/mL ?Interpretation ?<18.00 ?Negative 18.00 - 21.99 ?Equivocal ??>21.99 ?Positive Test Performed by [facility], [address] [place], [place] Sai Dodson M.D., Ph.D., Director of Laboratories , CLIA [id number] 07/05/2018 3:07 PM PREVENTION COORDINATOR us Lanre Parekh DO LABORATORY Final Re sult [facility] [address] [place] [address], [place] [phone] * CULTURE, FUNGUS W/ STAIN (07/05/2018 3:02 PM PREVENTION COORDINATOR) SPEC DESCRIPTION MOUTH 07/05/2018 3:03 PM PREVENTION COORDINATOR [facility] SPECIAL REQUESTS NO SPECIAL REQUEST 07/05/2018 3:03 PM PREVENTION COORDINATOR [facility] STAIN RESULT: NO YEAST OR FUNGAL ELEMENTS SEEN 07/06/2018 1:54 PM [facility] CULTURE RESULT NO FUNGUS ISOLATED AT 4 WEEKS. 08/04/2018 1:08 PM [facility] ORAL CAVITY SPECIMEN / Unknown 07/05/2018 3:02 PM PREVENTION COORDINATOR 07/05/2018 3:29 PM PREVENTION COORDINATOR Lanre Parekh DO MICROBIOLOGY - GENERAL O RDERABLES Final Result Performing Organization Address City/[facility]/ZIP Co de Phone Number [facility] [address] [place] [address], [place] [phone] * CULTURE THROAT ALL ORG (07/05/2018 3:02 PM PREVENTION COORDINATOR) SPEC DESCRIPTION THROAT 07/05/2018 3:02 PM PREVENTION COORDINATOR [facility] SPECIAL REQUESTS NO SPECIAL REQUEST 07/05/2018 3:02 PM PREVENTION COORDINATOR [facility] CULTURE RESULT HEAVY GROWTH OF NORMAL CANDACE PRESENT 07/07/2018 8:21 AM PREVENTION COORDINATOR [facility] THROAT SWAB / Unknown 07/05/2018 3:02 PM PREVENTION COORDINATOR 07/05/2018 3:28 PM PREVENTION COORDINATOR Lanre Parekh DO MICROBIOLOGY - GENERAL O RDERABLES Final Result [facility] [address] [place] [address], documented in this encounter Visit Diagnoses Diagnosis Pharyngitis due to other organism- Primary Sore throat Acute pharyngitis documented in this encounter Care Teams Development Lead Relationship Specialty Start Date End Date Lanre Parekh DO [address] [place] [id number] PCP - General FAMILY PRACTICE 06/28/18 09/06/22 documented as of this encounter
--- OUTSIDE RECORDS SUMMARY | 2024-07-09 05:18 | XMS_ITS | Encounter Summary ---
Author Organization [facility] Address [address] [place] [address]. [place], [place] [address] [place] [address] Care Team Providers Care Teachers Aide Name Role Phone Lanre Parekh DO Primary Care Provider + Encounter Details Date Type Department Care Team (Latest Contact Info) Description 08/05/2018 Scan HEALTH INFO SRVCS Scanned, Documents Social [...] Sex Assigned at Male 07/01/2024 9:54 AM STONE CIRCULAR SAWYER Legal Sex Male 8:28 AM STONE CIRCULAR SAWYER Gender Identity Male 07/01/2024 9:54 AM STONE CIRCULAR SAWYER Sexual Orientation Not on file documented as of this encounter Plan of Treatment Not on file documented as of this encounter Visit Diagnoses Not on filedocumented in this encounter Care Teams Teachers Aide Relationship Specialty Start Date End Date Lanre Parekh DO [address] [place] [id number] PCP - General FAMILY PRACTICE 06/28/18 09/06/22 documented as of this encounter
--- OUTSIDE RECORDS SUMMARY | 2024-07-09 05:18 | XMS_ITS | Encounter Summary ---
Author Organization [facility] Address [address] [place] [address]. [place], [place] [id number] [place] [address] Care Team Providers Care Sales And Support Center Agent Name Role Phone Lanre Parekh DO Primary Care Provider + Reason for Visit * Reason Onset Date Comments Lab Order 07/10/2018 Encounter Details Date Type Department Care Team (Late st Contact Info) Description 07/10/2018 Telephone [facility] Family & Internal Medicine [facility] [address] [place] [address] Lanre Parekh DO [address] [place] [address] Lab Order Social History Tobacco Use Types Packs/Day Years [...] Sex Assigned at Male 07/01/2024 9:54 AM CAR ATTENDANT Legal Sex Male 8:28 AM CAR ATTENDANT Gender Identity Male 07/01/2024 9:54 AM CAR ATTENDANT Sexual Orientation Not on file documented as of this encounter Progress Notes * Elaine Mcfadden CMA - 07/15/2018 10:25 AM CST received test results ATTENDANT * Elaine Mcfadden CMA - 07/12/2018 10:48 AM CST Talked with [facility]. It was not drawn and they will call back if they can our not. ATTENDANT * Elaine Mcfadden CMA - 07/10/2018 4:20 PM CST Lab being faxed ATTENDANT * Lanre Parekh DO - 07/10/2018 11:28 AM CST Please contact [facility] as pt had EBV IGM antibody lab ordered but I don't see that one resulted where as the rest of the results have all returned. ATTENDANT documented in this encounter Plan of Treatment Not on file documented as of this encounter Visit Diagnoses Not on filedocumented in this encounter Care Teams Sales And Support Center Agent Relationship Specialty Start Date End Date Lanre Parekh DO [address] [place] [phone] PCP - General FAMILY PRACTICE 06/28/18 09/06/22 documented as of this encounter
--- OUTSIDE RECORDS SUMMARY | 2024-07-09 05:20 | XMS_ITS | Clinical Summary ---
Author Organization [facility] Address [address] [address] Phone Care Team Providers Care Manager Photo Name Role Phone Trenton Bess MD Primary Care Provider [phone] Allergies Active Allergy Reactions Criticality Noted Date Comments Metronidazole Unknown Medications Multiple Minerals-Vitami ns (NUTRA-SUPPORT BONE) Capsule Active [place]-3 Fatty Acids ([facility] FISH OIL) 1000 MG Capsule Active budesonide (ENTOCORT ED) [address] Particles TAKE 3 CAPSULES BY MOUTH EVERY MORNING 90 Cap 1 7 Active Probiotic Product (PROBIOTIC PO) Take 1 Tab by mouth daily. Active folic acid (FOLVITE) 400 MCG Tablet Take 400 mcg by mouth daily. Active Cyanocobalamin (VITAMIN B-12 PO) Take 6 mcg by mouth daily. Active vitamin E 100 UNIT Capsule Take 200 Units by mouth daily. Active TURMERIC PO Take 1,500 mg by mouth daily. Active difluprednate (DUREZOL) 0.05 % Emulsion Place 1 Drop in both eyes. Active Adalimumab (HUMIRA) 40 MG/0.8ML Prefilled Syringe Kit 0.8 mL by Subcutaneous route every 14 days. 12 Each 0 7 Active nitazoxanide (ALINIA) 500 MG Tablet Take 1 Tab by mouth 2 times daily. 20 Tab 0 7 Active Additional Information Patient not taking.Reported on 12/26/2016 budesonide (ENTOCORT ED) [address] Particles TAKE 3 CAPSULES BY MOUTH EVERY MORNING FOR 30 DAYS, 2 CAPSULES FOR 30 DAYS THEN FOLLOW WITH 1 CAPSULE FOR 30 DAYS 180 Cap 0 7 Active Additional Information Patient not taking.Reported on 12/26/2016 Active Problems Problem Noted Date Diagnosed Date Crohn's disease Rectal bleeding Arthritis Iritis Osteoporosis Family History Medical History Relation Name Comments Hypertension Father Hypertension Mother Relation Name Status Comments Father Alive Mother Social History Tobacco Use Types Packs/Day Years Used Date Smoking Tobacco: Never Tobacco Cessation:Counseling Given: Yes Alcohol Use Standard Drinks/Week Comments No 0 (1 standard drink = 0.6 oz pur e alcohol) Sex and Gender Information Value Date Recorded Sex Assigned at Not on file Legal Sex Male 10:55 PM CDT Gender Identity Not on file Sexual Orientation Not on file Last Filed Vital Signs Vital Sign Reading Time Taken Comments Blood Pressure 120/72 12/26/2016 1:07 PM CDT Pulse 75 12/26/2016 1:07 PM CDT Temperature 36.6 ??C (97.8 ??F) 12/26/2016 1:07 PM CD T Respiratory Rate 16 12/26/2016 1:07 PM CDT Oxygen Saturation 98% 12/26/2016 1:07 PM CDT Inhaled Oxygen Concentration - - Weight 74.8 kg (165 lb) 12/26/2016 1:07 PM CDT Height 170.2 cm (5' 7 ) 12/26/2016 1:07 PM CDT Body Mass Index 25.84 12/26/2016 1:07 PM CDT Plan of Treatment Health Maintenance Due Date Last Done Comments Hepatitis C Virus (HCV) Screening 1989 TdaP Immunization 1989 SARS-COV-2 Immunization (#1) 1994 Hepatitis B Immunization (1 of 3 - 19+ 3-dose series) 2008 Influenza Immunization (#1) 2024 Respiratory Syncytial Virus (RSV) Immunization (Adult) (1 - 1-dose 75+ series) 2064 Meningococcal Immunization (ACWY) Aged Out No longer eligible based on patient's age to complete this topic Pneumococcal Immunization Combined Aged Out No longer eligible based on patient's age to complete this topic Rotavirus Immunization Aged Out No lo nger eligible based on patient's age to complete this topic Insurance [address] Care Teams Manager Photo Relationship Specialty Start Date End Date Trenton Bess MD [address] [facility] [address] [place] [address] PCP - General Internal Medicine 10/17/16
--- OUTSIDE RECORDS SUMMARY | 2024-07-09 05:22 | XMS_ITS | Encounter Summary ---
Author Organization [facility] Address [address] [place] [address] Phone Care Team Providers Care Cytology Technologist Name Role Phone Lanre Parekh DO Primary Care Provide r Eliana Quevedo MD Unavailable [phone] Encounter Details Date Type Department Care Team (Late st Contact Info) Description 04/17/2024 Telephone [facility] ([facility]) - [facility] Minimally Invasive Surgery [address] [facility] 12th Floor, [place] [address] Reyna Thomason RN Social History Tobacco Use Types Packs/Day Years Used Date Smoking Tobacco: Never Smokeless Tobacco: Never Alcohol Use Standard Drinks/Week Comments Yes 0 (1 standard drink = 0.6 oz pur e alcohol) wine-rarely Social Connection and Isolat ion Panel [NHANES] Answer Date Recorded In a typical week, how many times do you talk on the phone with family, friends, or neighbors? More than three times a week 11/03/2022 How often do you get togethe r with friends or relatives? Three times a week 11/03/2022 How often do you attend chur ch or jainism services? 1 to 4 times per year 11/03/2022 Do you belong to any clubs o r organizations such as protestant groups, unions, fraternal or athletic groups, or school groups? No 11/03/2022 How often do you attend meet ings of the clubs or organizations you belong to? Never 11/03/2022 Are you , , di vorced, , never , or living with a partner? 11/03/2022 AUDIT-C Answer Date Recorded Q1: How often do you have a drink containing alc ohol? 2-3 times a week 11/05/2022 Q2: How many drinks containi ng alcohol do you have on a typical day when you are drinking? 1 or 2 11/05/2022 Q3: How often do you have si x or more drinks on one occasion? Never 11/05/2022 Overall Financial Resource Strain (CARDIA) Answe r Date Recorded How hard is it for you to pa y for the very basics like food, housing, medical care, and heating? Not hard at all 11/03/2022 Hunger Vital Sign Answer Date Recorded Within the past 12 months, y ou worried that your food would run out before you got the money to buy more. Never true 11/04/19 23 Within the past 12 months, t he food you bought just didn't last and you didn't have money to get more. Never true 11/03/2022 PRAPARE - Transportation Answer Date Re corded In the past 12 months, has l ack of transportation kept you from medical appointments or from getting medications? No 10/2022 In the past 12 months, has l ack of transportation kept you from meetings, work, or from getting things needed for daily living? No 11/03/2022 Housing Stability Vital Sign Answer Markel e Recorded In the last 12 months, was t here a time when you were not able to pay the mortgage or rent on time? No 11/03/2022 In the last 12 months, how many places have you lived? 1 11/03/2022 In the last 12 months, was t here a time when you did not have a steady place to sleep or slept in a correction (including now)? No 11/03/2022 Personal Safety Answer Date Recorded Have you ever been in or are you currently in a harmful physical or emotional relationship or is someone making you feel afraid or unsafe? 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 Date: 04/17/2024 Reason for Call: Schedule Surgery Patient Provider: Dr. Lynch Medical/Surgical Information: Outcome/Plan: Your Surgery Scheduled on: Sunday, July 07, 2024. Plan on arriving* that day at: 5:30 am. * Arrival time subject to change. Before Your Surgery You will receive a phone call from the office about one week before surgery, confirming your arrival time. Call the office if you have any questions or concerns about your procedure. Please notify the office if you develop a fever, flu-like symptoms, or other concerns within 24 hours of your surgery. Center for Preoperative Assessment and Planning (CPAP): Within 30 days of your surgery, you will meet with the anesthesiology team and have testing done (bloodwork, EKG, CXR, etc.) in preparation foryour surgery. Your medical history will be reviewed as well as a list of your current medications. If you need to reschedule this appointment you can reach them at [phone] Food and Drink Restrictions For your safety and to ensure your surgery can be performed, please do not eat or drink anything (including gum, mints and candy) after midnight the day of your surgery. However, we recommend for youto drink 12-16 oz. of Gatorade 2 hours prior to your procedure (please choose light colors only). Venkata Lynch M.D. hydraulic boom operator Minimally Invasive Surgery Office Phone - General Instructions for Medications Stop all of these medications 5 days prior to your surgery: Excedrin, Motrin, Advil, ibuprofen, Aleve, naproxen, Celebrex, celecoxib, meloxicam Stop all of these medications 7-14 days prior to your surgery: Vitamin E, Fish Oil ([place]ovaza, [place] 3), Herbal medicines, diet pills If you have pain, you may take Tylenol (acetaminophen). Do not take more than 3000 mg (3 g) within a 24 hour period. *For most procedures, if you take a baby aspirin (81 mg) on a daily basis, you may continue to do so. If you take a full strength aspirin (325 mg) on a daily basis, you may be asked to switch to 81mgstrength for 7 days before surgery. Call your surgeon and the CPAP clinic if you experience any of the following: Any changes in your health You have a fever You have any signs of an infection (chest, urinary tract or tooth) You have been to the Emergency Room or were in the hospital You have started taking any new medications You have questions about a bowel prep or special diet before surgery Parking Parking is located under the [facility] in the [employer] [employer]. (See attached map) Parking validation will be provided. [employer] parking is available at the main entrance of [facility] or [facility]. On the Day of Your Surgery The morning of your surgery: You may brush your teeth and rinse your mouth out. Do not glue your dentures. Do not wear jewelry, body piercings, make-up, hairpins, false eyelashes or contact lenses to the hospital. Your surgery will be at [facility], [address] [place] [address], [id number]. Report to the surgery registration area on the third floor. Upon entering the main lobby take the elevators labeled [facility]. Once on the third floor turn right to Surgery Registration. You will be registered and directed to the mop handle assembler area, where you will be called for at the appropriate time. In general, you will be instructed to arrive two hours before your scheduled surgery time, but no earlier than 5:15 a.m. Please bring insurance cards and any Advanced Directive/Power of Commercial Drafter paperwork with you. Activities that will occur the morning of surgery: You will be visited by your surgeon If you are scheduled to receive anesthesia, a member of the Anesthesiology Department will discuss the type of anesthesia to be used and answer your questions. You will change into a hospital gown and your vital signs will be taken. For Your Family and Friends Your family and friends will be asked to wait in the mop handle assembler area where they will be kept informed of your progress. Personal Belongings Dress comfortably. If you wear glasses, you will need them to read and sign consent forms. You may be asked to remove contact lenses and dentures. Please leave money, jewelry and other valuables at home. After Your Surgery If you receive sedation, please be aware: You may feel slightly dizzy or sleepy Generally you will have a two-hour recovery period before you are released For your safety, a responsible adult must be available to take you home We cannot release you to drive yourself home or to take public transportation alone We advise that you have a responsible adult with you throughout the first 24 hours immediately after your discharge, should you experience lightheadedness or dizziness Instructions from your doctor will be reviewed with you and your family prior to your discharge. Be sure you understand any restrictions and what to watch for to avoid complications. If you experience any unanticipated concerns, please call the office. If You Are Staying If you are scheduled to spend the night in the hospital, be sure to pack necessary toiletries, pajamas, a robe and slippers. Again, please leave valuables at home. Questions If you have specific questions about your procedure, please call the office at . For after-hours, weekends and holidays, you may call the [facility] at . documented in this encounter Plan of Treatment Not on file documented as of this encounter Visit Diagnoses Not on filedocumented in this encounter Care Teams Cytology Technologist Relationship Specialty Start Date End Date Lanre Parekh DO PCP - General Family Medicine 01/23/19 Eliana Quevedo MD [address] [place] [address] Referring Physician Gastroenterology 11/07/22 documented as of this encounter
--- OUTSIDE RECORDS SUMMARY | 2024-07-09 05:22 | XMS_ITS | Encounter Summary ---
Author Organization [facility] Address [address] [place] [address] Phone Care Team Providers Care Cabana Attendant Name Role Phone Lanre Parekh Primary Care Provide r Eliana Quevedo MD Unavailable [phone] Reason for Referral * Diagnostic Imaging (Routine) - Pending Review Specialty Diagnoses / Procedures Referred By Contac t Referred To Contact Diagnoses Low bone mass Procedures Dexa TBS Axial Skeleton Bone Density 1 or more sites Fernando Mckeon MD Phone: tel: fax: [facility] (All Locations) Referral ID Status Reason Start Date Expiration Date V isits Requested Visits Authorized [id number] Pending Review 05/23/2023 06/21/2024 1 1 E GENETICS RESEARCHER Encounter Details Date Type Department Care Team (Late st Contact Info) Description 05/23/2023 Orders Only [facility] Bone Health [address] [facility] 5th [place] [address] [place] [address] Fernando Mckeon MD [address] [facility] [address] [place] [address] Low bone mass (Primary Dx) Social History Tobacco Use Types Packs/Day Years [...] often do you attend chur ch or druze services? 1 to 4 times per year 11/03/2022 Do you belong to any clubs o r organizations such as episcopalian groups, unions, fraternal or athletic groups, or [...] place to sleep or slept in a senior care (including now)? No 11/03/2022 Personal Safety Answer Date Recorded Have you ever been in or are you currently in a harmful physical or emotional relationship or is someone making you feel afraid or unsafe? 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 ?? Based on machine cross-calibration and precision studies the least significant changes of this densitometer is 0.024 g/cm2 at the spine, 0.020 g/cm2 at the total proximal femur, and 0.014g/cm2 at the forearm. HISTORY: This is a 32 y.o. male with a history of Crohn's disease and low bone mass. He reports that he has never smoked. He has never used smokeless tobacco. Currently on treatment with vitamin D. INDICATIONS: History of low bone mass. FINDINGS: BONE MINERAL DENSITY OF THE LUMBAR SPINE Bone Mineral Density (BMD) of the lumbar spine was measured from L1-L4 and the average density was calculated to be 0.990 gm/cm2. This corresponds to a Z-score (standard deviations from the mean of age and gender matched controls) of -0.9. When compared to the previous study of 05/30/21 there has been no significant changes in bone density. BONE MINERAL DENSITY OF THE PROXIMAL FEMUR Bone Mineral Density (BMD) of the left hip total was found to be 0.843 gm/cm2. This corresponds to a Z-score standard deviations from the mean of age and gender matched controls of -1.2. Femoral neck is 0.657 gm/cm2 with a Z-score (standard deviations from the mean of age and gender matched controls) of -1.7. When compared to the previous study of 05/30/21 there has been a 0.048 gm/cm (6.1%) increase in bone density that is considered significant. SUMMARY: Bone mineral density is near the normal mean for age (Z-score>-2.0). There has been a significant increase in bone density since previous measurement. The lumbar spine Trabecular Bone Score is 1.283 which suggests ??partially degraded bone microarchitecture compared to the general population. Final decisions regarding diagnostic or therapeutic recommendations should include BMD, TBS, additional clinical risk factors as well the clinical context of the patient. ?? Please see attached TBS results for further details. ADDITIONAL COMMENTS: Men Under 50: BMD alone does not define osteoporosis in a men under 50, it may indicate the necessity for further evaluation. The history and data sections of the bone mineral density scan were prepared by Viri Pedraza who is accredited by the International Society of Clinical Densitometry. The overall patient assessment and scan interpretation were performed by Fernando Mckeon M.D. who is certified by the International Society of Clinical Densitometry. [id number] Fernando Mckeon MD IMG DXA PROCEDURES Final Result documented in this encounter Visit Diagnoses Diagnosis Low bone mass- Primary Crohn's disease without complication, unspecified gastrointestinal tract location (HCC)- Primary Low bone mass documented in this encounter Care Teams Cabana Attendant Relationship Specialty Start Date End Date Lanre Parekh DO PCP - General Family Medicine 01/23/19 Eliana Quevedo MD [address] [place] [address] Referring Physician Gastroenterology 11/07/22 documented as of this encounter
--- OUTSIDE RECORDS SUMMARY | 2024-07-09 05:22 | XMS_ITS | Encounter Summary ---
Author Organization [facility] Address [address] [place] [address] Phone Care Team Providers Care Relief Master Name Role Phone Lanre Parekh Primary Care Provide r Eliana Quevedo MD Unavailable [phone] Encounter Details Date Type Department Care Team (Late st Contact Info) Description 01/31/2023 Orders Only [facility] Gastroenterology [address] [facility] 12th [place] [address] [place] [address] Michaela Mitchell, burn center nurse Crohn's disease of both small and large intestine with intestinal obstruction (HCC) Social History Tobacco Use Types Packs/Day Years [...] often do you attend chur ch or episcopal services? 1 to 4 times per year 11/03/2022 Do you belong to any clubs o r organizations such as gnosticism groups, unions, fraternal or athletic groups, or [...] place to sleep or slept in a snf (including now)? No 11/03/2022 Personal Safety Answer Date Recorded Have you ever been in or are you currently in a harmful physical or emotional relationship or is someone making you feel afraid or unsafe? 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 4 each 01/31/2023 documented in this encounter Plan of Treatment Not on file documented as of this encounter Visit Diagnoses Diagnosis Crohn's disease of both small and large intestine with intestinal obstruction (HCC) documented in this encounter Discontinued Medications Medication Sig Discontinue Reason Start Date End Da te adalimumab (Humira,CF, Pen) 40 mg/0.4 mL pen injector kitIndications:Crohn's disease of both small and large intestine with intestinal obstruction (HCC) Inject 0.4 mL (40 mg total) under the skin every 7 days Safety labs required every 3 months for med refills, next labs due by the end of 12/2022. Reorder 11/20/2022 01/31/2023 documented as of this encounter Care Teams Relief Master Relationship Specialty Start Date End Date Lanre Parekh DO PCP - General Family Medicine 01/23/19 Eliana Quevedo MD [address] [place] [address] Referring Physician Gastroenterology 11/07/22 documented as of this encounter
--- OUTSIDE RECORDS SUMMARY | 2024-07-09 05:22 | XMS_ITS | Encounter Summary ---
Author Organization [facility] Address [address] [place] [address] Phone Care Team Providers Care Dowel Pin Man Name Role Phone Lanre Parekh Primary Care Provide r Eliana Quevedo MD Unavailable [phone] Encounter Details Date Type Department Care Team (Late st Contact Info) Description 05/30/2023 3:00 PM CRITICAL CARE REGISTERED NURSE Office Visit [facility] [address] Advanced [facility] 12th [place] [address] [place] [address] Jackeline Lozano MD [address] [place] [address] Crohn's disease of both small and large intestine with intestinal obstruction (HCC) (Primary Dx); History of high risk medication treatment; Routine health maintenance Social History Tobacco Use Types Packs/Day Years Used Date Smoking Tobacco: Never Smokeless Tobacco: Never Tobacco Cessation:Counseling Given: Not Answered Alcohol Use Standard Drinks/Week Comments Yes 0 [...] often do you attend chur ch or hindu services? 1 to 4 times per year 11/03/2022 Do you belong to any clubs o r organizations such as moravian groups, unions, fraternal or athletic groups, or [...] place to sleep or slept in a fci (including now)? No 11/03/2022 Personal Safety Answer Date Recorded Have you ever been in or are you currently in a harmful physical or emotional relationship or is someone making you feel afraid or unsafe? Denies 11/02/2022 Sex and Gender Information Value Date Recorded Sex Assigned at Not on file Legal Sex Male 11:11 PM CRITICAL CARE REGISTERED NURSE Gender Identity Not on file Sexual Orientation Not on file documented as of this encounter Last Filed Vital Signs Vital Sign Reading Time Taken Comments Blood Pressure 150/90 05/30/2023 3:11 PM CRITICAL CARE REGISTERED NURSE Pulse 62 05/30/2023 3:11 PM CRITICAL CARE REGISTERED NURSE Temperature 36.9 ??C (98.4 ??F) 05/30/2023 3:11 PM CS T Respiratory Rate - - Oxygen Saturation - - Inhaled Oxygen Concentration - - Weight 88.7 kg (195 lb 9.6 oz) 05/30/2023 3:11 P M CRITICAL CARE REGISTERED NURSE Height 172.7 cm (5' 8 ) 05/30/2023 3:11 PM CRITICAL CARE REGISTERED NURSE Body Mass Index 29.74 05/30/2023 3:11 PM CRITICAL CARE REGISTERED NURSE documented in this encounter Progress Notes * Edna Zimmerman MD - 05/30/2023 3:00 PM CST Images from the original note were not included. [facility] Department of Gastroenterology Reason for the visit: Establishment of care, Crohn's disease Current IBD Medications: Humira every week, 6-mercaptopurine 50 mg daily, allopurinol 100 mg daily. Problem List: Ileocolonic stricturing Crohn's Disease: Nic was diagnosed in 2004. He underwent ileocecectomy in 2018. Previous therapies include combination of Humira and methotrexate. In December 2021 colonoscopy showed with mucosal remission. Due to intolerance, humira was transitioned to 6-mercaptopurine and Humira was escalated to every week due to anticipatory symptoms. Allopurinol was later added to manage 6-MP symptoms. Last colonoscopy in October 2022 showed mucosal remission. History of present illness: Nic Teran is a 32 y.o. male with history of stricturing ileocolonic Crohn's disease, s/p ileocecectomy in 2018. He is currently maintained on Humira 40mg weekly, mercaptopurine 50mg daily, and allopurinol 100mg daily. He additionally takes colestipol daily and balsalazide 1500mg TID. His last colonoscopy was in December 2021 which demonstrated mucosal remission. His 6-TG was subtherapeutic at 195, and 6-MMP was <500 in Jul 2022. Last CRP: 13.4 (10/2022). Of note, patient had a recent hospitalization at [facility] in October 2022 for diarrhea and abdominal pain. He had a colonoscopy during this admission which showed patent ileo-colonic anastomosis, two small ulcers without bleeding, normal colon and ileum. Symptoms were thought to be secondary to an infectious etiology. In March 2023, patient noted new RLQ pain. At this time, patient had aCT AP done without active inflammatory bowel disease. Since then, patient notes he feels clinicallywell. He notes some residual dull intermittent RLQ pain. Denies diarrhea or blood in stool. Reportsbowel movement 1-2 times per day. Has received Pneumovax and flu shot this year. Has not received shingles vaccines. Is not up to date on COVID vaccines, but not interested at this time. Past Medical & Surgical history: Allergic rhinitis Vasectomy Family History: The patient has no known family history of inflammatory bowel disease or any autoimmune disease. No family history of colon cancer Social History: The patient is nonsmoker. No illicit drug use. Allergy: as listed in the patient's chart Review of Systems: Review of systems is negative except of the symptoms described above in the HPI Physical Exam: BP 150/90 Pulse 62 Temp 36.9 ??C (98.4 ??F) Ht 172.7 cm (5' 8 ) Wt 88.7 kg (195 lb 9.6 oz) BMI 29.74 kg/m?? General: Well-appearing, in no acute distress. HEENT: Sclerae anicteric. Oropharynx without lesion.Neck: Supple without lymphadenopathy or thyromegaly. Lungs: Clear to auscultation bilaterally, breath sounds symmetrical bilaterally. Cardiovascular: Regular rate and rhythm with no murmur, rub or gallop. Abdomen: Flat, soft, non-tender; bowel sounds normal active in all four quadrants, no hepatosplenomegaly, or palpable masses. Extremities: No clubbing, cyanosis or edema. Skin: No rash or jaundice. Neurologic: Grossly normal Labs: I have personally reviewed all labs, images, endoscopies and pathology findings. Assessment & plan Nic Teran is a 32 y.o. male with history of severe Crohn's disease involving the colon and the terminal ileum. Nic underwent ileocolectomy to address an active and stricturing disease at the terminal ileum. Nic is currently on his first biologic, Humira in combination with 6-MP which resulted in mucosal remission. The plan is to continue current regimen and follow up in 6 months. ICAL CARE REGISTERED NURSE ICAL CARE REGISTERED NURSE documented in this encounter Plan of Treatment Not on file documented as of this encounter Results * (ABNORMAL) CBC with auto differential (05/30/2023 4:07 PM CRITICAL CARE REGISTERED NURSE) Pathologist [facility] WBC 5.8 3.8 - 9.9 K/cumm [facility] Hgb 13.3 13.0 - 17.5 g/dL [facility] Comment: Interpretive Data A reference range for this assay has not been established for patients with an unknown legal sex. Please refer to the laboratory test catalog for established sex-specific reference intervals. Current interpretive data was last revised on 2023. Hct 39.2 38.9 - 50.3 % [facility] Comment: Interpretive Data A reference range for this assay has not been established for patients with an unknown legal sex. Please refer to the laboratory test catalog for established sex-specific reference intervals. Current interpretive data was last revised on 2023. Plt 222 150 - 400 K/cumm [facility] MPV 10.5 9.1 - 12.3 fL [facility] RBC 3.90(L) 4.30 - 5.80 M/cumm [facility] Comment: Interpretive Data A reference range for this assay has not been established for patients with an unknown legal sex. Please refer to the laboratory test catalog for established sex-specific reference intervals. Current interpretive data was last revised on 2023. MCV 100.5(H) 81.3 - 96.4 fL [facility] MCH 34.1(H) 27.1 - 33.3 pg [facility] MCHC 33.9 32.3 - 35.7 g/dL [facility] RDW CV 13.9 11.1 - 14.9 % [facility] RDW SD 51.5(H) 35.7 - 48.1 fL [facility] NRBC abs 0.00 0.00 - 0.01 K/cumm [facility] Blood 05/30/2023 4:07 PM CRITICAL CARE REGISTERED NURSE 05/30/2023 4:24 PM CRITICAL CARE REGISTERED NURSE us Jackeline Lozano MD LAB BLOOD ORDERABLES F inal Result [facility] [address] Department [place] [address] * Comprehensive metabolic panel (05/30/2023 4:07 PM CRITICAL CARE REGISTERED NURSE) Sodium 139 135 - 145 mmol/L [facility] Potassium, pl 4.3 3.3 - 4.9 mmol/L [facility] Chloride 102 97 - 110 mmol/L [facility] CO2 29 22 - 32 mmol/L [facility] Anion gap 8 2 - 15 mmol/L [facility] BUN 12 6 - 25 mg/dL [facility] Creatinine 1.04 0.80 - 1.30 mg/dL [facility] Glucose 106 70 - 199 mg/dL [facility] Comment: Interpretive Data Fasting glucose >/= 126 mg/dl is diagnostic for diabetes. ?? Fasting is defined as no caloric intake for at least 8 hours. Fasting glucose between 100 mg/dl to 125 mg/dl is diagnostic of prediabetes. In a patient with classic symptoms of hyperglycemia or hyperglycemic crisis, a random glucose >/= 200 mg/dl is diagnostic for diabetes. In the absence of unequivocal hyperglycemia, results should be confirmed by repeat testing. The classification and Diagnosis of Diabetes Diabetes Care 202; 46: S19-S40. Current interpretive data was last revised 2022. Calcium 10.1 8.5 - 10.3 mg/dL [facility] Bilirubin, total 0.7 0.1 - 1.2 mg/dL [facility] Protein, pl 8.4 6.5 - 8.5 g/dL [facility] Albumin 4.8 3.5 - 5.0 g/dL [facility] Alk phos 76 40 - 130 Units/L [facility] ALT 37 7 - 55 Units/L [facility] AST 27 10 - 50 Units/L [facility] Blood 05/30/2023 4:07 PM CRITICAL CARE REGISTERED NURSE 05/30/2023 4:24 PM CRITICAL CARE REGISTERED NURSE us Jackeline Lozano MD LAB BLOOD ORDERABLES F inal Result Performing Organization Address City/[facility] Co de Phone Number [facility] [place] [address] * CRP (acute phase) (05/30/2023 4:07 PM CRITICAL CARE REGISTERED NURSE) CRP 1.9 <=10.0 mg/L [facility] Blood 05/30/2023 4:07 PM CRITICAL CARE REGISTERED NURSE 05/30/2023 4:24 PM CRITICAL CARE REGISTERED NURSE us Jackeline Lozano MD LAB BLOOD ORDERABLES F inal Result Performing Organization Address [facility] Co de Phone Number [facility] [place] [address] * Hepatitis B core antibody, total Blood (05/30/2023 4:07 PM CRITICAL CARE REGISTERED NURSE) Hep B core IgG/IgM Nonreactive Nonreactive [facility] Blood 05/30/2023 4:07 PM CRITICAL CARE REGISTERED NURSE 05/30/2023 4:24 PM CRITICAL CARE REGISTERED NURSE Jackeline Lozano MD LAB MICROBIOLOGY - GEN ERAL ORDERABLES Final Result Performing Organization Address [facility] Co de Phone Number [facility] [place] [address] * Hepatitis B surface antibody (immune status) Blood (05/30/2023 4:07 PM CRITICAL CARE REGISTERED NURSE) [facility] HBsAb (immune status) Reactive [facility] Comment:This result is consi stent with immunity to Hepatitis B Virus when used in the setting of routine screening. Current interpretive data was last revised on 22 HBsAb (immune status) index 32.5 mIUnits/m L [facility] Comment: The method for this assay was changed on 04/26/22. Quantitative results are approximately 0.5 log10 higher with the new assay in comparison with the one previously in use. Current interpretive data was last revised on 22. Blood 05/30/2023 4:07 PM CRITICAL CARE REGISTERED NURSE 05/30/2023 4:24 PM CRITICAL CARE REGISTERED NURSE Jackeline Lozano MD LAB MICROBIOLOGY - GEN ERAL ORDERABLES Final Result Performing Organization Address [facility] Phone Number [facility] Department [place] [address] * Hepatitis B Surface Antigen Blood (05/30/2023 4:07 PM CRITICAL CARE REGISTERED NURSE) [facility] HepBsAg Nonreactive Nonreactive [facility] Blood 05/30/2023 4:07 PM CRITICAL CARE REGISTERED NURSE 05/30/2023 4:24 PM CRITICAL CARE REGISTERED NURSE Jackeline Lozano MD LAB MICROBIOLOGY - GEN ERAL ORDERABLES Final Result Performing Organization Address City/[facility] Co de Phone Number [facility] [place] [address] * T-SPOT.TB Blood (05/30/2023 4:07 PM CRITICAL CARE REGISTERED NURSE) [facility] T-SPOT.TB Negative SeeBelow [facility] Comment: Normal Value: Negative A negative test result does not exclude the possibility of exposure to or infection with Mycobacterium tuberculosis (M. tuberculosis). ??Patients with recent exposure to TB infected individuals exhibiting a negative T-SPOT.TB result should be considered for retesting within 6 weeks or if other relevant clinical symptoms indicate. ??Results from T-SPOT.TB testing must be used in conjunction with each individual's epidemiological history, current medical status, and results of other diagnostic evaluations. ??The T-SPOT.TB test is qualitative and results are reported as positive, borderline or negative, given that the test controls perform as expected. In line with the Centers for Disease Control and Prevention's 2010 recommendation to report quantitative measurements alongside the qualitative result, the laboratory provides spot counts for informational purposes only. ??The T-SPOT.TB test should not be interpreted as a quantitative test. T-SPOT.TB Panel A Spot Count 0 [facility] T-SPOT.TB Panel B Spot Count 0 [facility] T-SPOT.TB Negative Control Passed [facility] T-SPOT.TB Positive Control Passed [facility] Comment: Test Performed at: [facility] [place] [place], [place] ??[address] ? NEREIDA FRIED MD,PHD Blood 05/30/2023 4:07 PM CRITICAL CARE REGISTERED NURSE 05/30/2023 6:23 PM CRITICAL CARE REGISTERED NURSE us Jackeline Lozano MD LAB MICROBIOLOGY - GEN ERAL ORDERABLES Final Result [facility] [address] Department [place] [address] documented in this encounter Visit Diagnoses Diagnosis Crohn's disease of both small and large intestine with intestinal obstruction (HCC)- Primary History of high risk medication treatment Routine health maintenance Unspecified examination documented in this encounter Care Teams Dowel Pin Man Relationship Specialty Start Date End Date Lanre Parekh DO PCP - General Family Medicine 01/23/19 Eliana Quevedo MD [address] [place] [address] Referring Physician Gastroenterology 11/07/22 documented as of this encounter
--- OUTSIDE RECORDS SUMMARY | 2024-07-09 05:22 | XMS_ITS | Encounter Summary ---
Author Organization [facility] Healthcare Address [address] [place] [address] Care Team Providers Care Financial Planning Adviser Name Role Phone Lanre Parekh DO Primary Care Provide r Eliana Quevedo MD Unavailable [phone] Reason for Referral * MRI/CAT/PET Scan (Routine) - Closed Specialty Diagnoses / Procedures Referred By Renay rivero Referred To Contact Radiology Diagnoses Sclerosing mesenteritis (HCC) Procedures CT Abdomen Pelvis W Contrast Eliana Quevedo MD [address] [place] [address] Phone: tel: fax: [address] [phone] Referral ID Status Reason Start Date Expiration Date Visits Re quested Visits Authorized [id number] Closed 03/06/2023 04/04/2024 1 1 Reason for Visit * MRI/CAT/PET Scan (Routine) - Closed Specialty Diagnoses / Procedures Referred By Renay rivero Referred To Contact Radiology Diagnoses Sclerosing mesenteritis (HCC) Procedures CT Abdomen Pelvis W Contrast Eliana Quevedo MD [address] [place] [address] Phone: tel: fax: [address] [phone] Referral ID Status Reason Start Date Expiration Date Visits Re quested Visits Authorized [id number] Closed 03/06/2023 04/04/2024 1 1 Encounter Details Date Type Department Care Team (Late st Contact Info) Description 03/08/2023 2:12 PM CDT - 03/08/2023 11:59 PM CDT Hospital Encounter [facility] [address] [place] [address] Eliana Quevedo MD [address] [place] [address] Sclerosing mesenteritis (HCC) Discharge Disposition: Discharge to home or self care Social History Tobacco Use Types Packs/Day Years [...] 11/03/2022 How often do you attend chur or faith services? 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 bif/B.raf/FOS (PROBIOTIC BLEND ORAL)Indications: gut health Take 1 tablet by mouth every morning multivitamin capsuleIndication s:Vitamin Deficiency Prevention Take 1 capsule by mouth every morning sildenafiL (VIAGRA) 100 mg tabletIndications :Erectile dysfunction, unspecified erectile dysfunction type Take 1/2 or 1 tablet ONE hour prior to activity on an empty stomach daily PRN 6 tablet 11 01/17/2022 turmeric, bulk, 100 % powderIndications :supplement Take 1,500 mg by mouth every morning adalimumab (Humira,CF, Pen) 40 mg/0.4 mL pen injector kitIndications:Cr ohn's disease of both small and large intestine with intestinal obstruction (HCC) Inject 0.4 mL (40 mg total) under the skin every 7 days Safety labs required every 3 months for med refills, next labs due by 05/2023 4 each 2 02/23/2023 3 allopurinoL (ZYLOPRIM) 100 mg tabletIndications :Crohn's disease of both small and large intestine with intestinal obstruction (HCC) Take 1 tablet (100 mg total) by mouth daily Safety labs required every 3 months for med refills, next labs due by the end of 05/2023. 90 tablet 03/01/2023 3 balsalazide (COLAZAL) 750 mg capsuleIndication s:Ulcerative Colitis Take 2 capsules (1,500 mg total) by mouth 3 (three) times a day 540 capsule 1 12/11/2022 4 celecoxib (CeleBREX) 100 mg capsule Take 1 capsule (100 mg total) by mouth daily for 14 days 14 capsule 03/06/2023 4 colestipoL (COLESTID) 1 gram tabletIndications :Diarrhea, unspecified type Take 1 tablet (1 g total) by mouth 4 (four) times a day as needed (loose stools) 120 tablet 11 07/28/2022 4 ergocalciferol (VITAMIN D) 50,000 unit capsule TAKE ONE CAPSULE BY MOUTH EVERY 14 DAYS 25 capsule 3 11/07/2021 4 folic acid (FOLVITE) 1 mg tabletIndications :Crohn's disease of both small and large intestine with intestinal obstruction (HCC) Take 1 tablet (1 mg total) by mouth daily 90 tablet 3 10/31/2022 4 mercaptopurine (PURINETHOL) 50 mg tabletIndications :Crohn's Disease Take 1 tablet (50 mg total) by mouth daily Safety labs required every 3 months for med refills, next labs due by the end of 05/2023. 90 tablet 03/01/2023 3 documented as of this encounter Discharge Disposition Disposition Code Departure Means Destination Discharge to home or self care documented in this encounter Plan of Treatment Not on file documented as of this encounter Procedures Procedure Name Priority Date/Time Associated Diagnosis Comments CT ABDOMEN PELVIS W CONTRAST Schedule Routine, Read Routine (OP Routine) 03/08/2023 3:40 PM CDT Sclerosing mesenteritis (HCC) POCT CREATININE - DEVICE Routine 03/08/2023 3:05 PM CDT documented in this encounter Results * CT Abdomen Pelvis W Contrast (03/08/2023 3:40 PM CDT) Anatomical Region Laterality Modality Body N/A Computed Tomogra phy 03/08/2023 4:26 PM CDT Impressions 03/08/2023 9:10 PM CDT 1. ??Changes of ileocecectomy without evidence of active inflammatory bowel disease. 2. ??Small fat-containing ventral hernia. 3. ??Small hiatal hernia. Dictated by: Red Fernández MD The radiology attending physician has personally reviewed this study, and had reviewed and/or edited this written report and agrees with it. Electronically signed by: Sukhi Saavedra M.D. Narrative 03/08/2023 9:10 PM CDT EXAMINATION: ??Computed tomography of the abdomen and pelvis with intravenous contrast HISTORY: 32-year-old male with history of Crohn's disease complicated by ileal colonic stricture status post ileocecectomy in 2018, evaluate for right lower quadrant pain TECHNIQUE: ??Transaxial computed tomographic images of the abdomen and pelvis were obtained with intravenous contrast according to the standard protocol after the uneventful administration of 75 mL Opti-Ray 350 intravenous contrast. COMPARISON: CT from 11/02/2022 FINDINGS: Clear lung bases. ??No pleural effusion. ??Heart size is normal without pericardial effusion. Small hiatal hernia. ??Normal liver contour. ??No discrete hepatic mass. ??Patent portal venous vasculature. ??Gallbladder is contracted. No intrahepatic or extrahepatic biliary ductal dilation. ??Normal spleen, pancreas, and adrenal glands. ??Kidneys enhance symmetrically without hydronephrosis. Postsurgical changes of ileocecectomy. ??Normal caliber small and large bowel without evidence of obstruction. ??No bowel wall thickening. ??No evidence of active inflammatory bowel disease. ??No intra-abdominal or retroperitoneal lymphadenopathy. ??Normal caliber intra-abdominal aorta. ??Small fat-containing ventral hernia. No suspicious osseous lesions. Procedure Note Sukhi Saavedra MD - 03/08/2023 EXAMINATION: Computed tomography of the abdomen and pelvis with intravenous contrast HISTORY: 32-year-old male with history of Crohn's disease complicated by ileal colonic stricture status post ileocecectomy in 2018, evaluate for right lower quadrant pain TECHNIQUE: Transaxial computed tomographic images of the abdomen and pelvis were obtained with intravenous contrast according to the standard protocol after the uneventful administration of 75 mL Opti-Ray 350 intravenous contrast. COMPARISON: CT from 11/02/2022 FINDINGS: Clear lung bases. No pleural effusion. Heart size is normal without pericardial effusion. Small hiatal hernia. Normal liver contour. No discrete hepatic mass. Patent portal venous vasculature. Gallbladder is contracted. No intrahepatic or extrahepatic biliary ductal dilation. Normal spleen, pancreas, and adrenal glands. Kidneys enhance symmetrically without hydronephrosis. Postsurgical changes of ileocecectomy. Normal caliber small and large bowel without evidence of obstruction. No bowel wall thickening. No evidence of active inflammatory bowel disease. No intra-abdominal or retroperitoneal lymphadenopathy. Normal caliber intra-abdominal aorta. Small fat-containing ventral hernia. No suspicious osseous lesions. IMPRESSION: 1. Changes of ileocecectomy without evidence of active inflammatory bowel disease. 2. Small fat-containing ventral hernia. 3. Small hiatal hernia. Dictated by: Red Fernández MD The radiology attending physician has personally reviewed this study, and had reviewed and/or edited this written report and agrees with it. Electronically signed by: Sukhi Saavedra M.D. Eliana Quevedo MD IM CT PROCEDURES F inal Result * POCT creatinine (03/08/2023 3:05 PM CDT) Creatinine POC 0.9 0.7 - 1.3 mg/dL [facility] Blood 03/08/2023 3:05 PM CDT 03/08/2023 3:05 PM CDT us Eliana Quevedo MD LAB POCT ORDERABLES - DEVICE Final Result [facility] Department [place] [address] documented in this encounter Visit Diagnoses Diagnosis Sclerosing mesenteritis (HCC) Sclerosing mesenteritis documented in this encounter Administered Medications Inactive Administered Medications - up to 3 most recent administrations Medication Order MAR Action Action Date Dose Rate Site ioversoL (OPTIRAY 350) injection 100 mL 100 mL, intravenous, Once in imaging, contrast, Starting on Stefani 03/08/23 at 1525, For 1 dose Contrast Given 03/08/2023 3:31 PM CDT 75 mL documented in this encounter Orders Medications Ordered That Nilo ht Not Have Been Administered Count Last Ordered Date First Ordered Date ioversoL (OPTIRAY 350) injection 100 mL 1 0 03/08/2023 documented in this encounter Care Teams Financial Planning Adviser Relationship Specialty Start Date End Date Lanre Parekh DO PCP - General Family Medicine 01/23/19 Eliana Quevedo MD [address] [place] [address] Referring Physician Gastroenterology 11/07/22 documented as of this encounter
--- OUTSIDE RECORDS SUMMARY | 2024-07-09 05:22 | XMS_ITS | Encounter Summary ---
Author Organization [facility] Healthcare Address [address] [place] [address] Care Team Providers Care Lithographic Artist Name Role Phone Eduinisaiahbandar Lanreezequiel Conway DO Primary Care Provide r Eliana Quevedo MD Unavailable [phone] Encounter Details Date Type Department Care Team (Late st Contact Info) Description 12/26/2023 Documentation [facility] [address] [place] [id number] Margie Parks, [facility] Social History Tobacco Use Types Packs/Day Years [...] often do you attend chur ch or pentecostal services? 1 to 4 times per year 11/03/2022 Do you belong to any clubs o r organizations such as zoroastrianism groups, unions, fraternal or athletic groups, or [...] place to sleep or slept in a fdc (including now)? No 11/03/2022 Personal Safety Answer Date Recorded Have you ever been in or are you currently in a harmful physical or emotional relationship or is someone making you feel afraid or unsafe? 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 - 12/26/2023 11:28 AM CDT Adalimumab-adaz copay card information BIN: [id number] ID: [id number] Group: [id number] documented in this encounter Plan of Treatment Not on file documented as of this encounter Visit Diagnoses Not on filedocumented in this encounter Care Teams Lithographic Artist Relationship Specialty Start Date End Date Lanre Parekh DO PCP - General Family Medicine 01/23/19 Eliana Quevedo MD [address] [place] [address] Referring Physician Gastroenterology 11/07/22 documented as of this encounter
--- OUTSIDE RECORDS SUMMARY | 2024-07-09 05:22 | XMS_ITS | Encounter Summary ---
Author Organization [facility] Address [address] [place] [address] Phone Care Team Providers Care Conveyor Tender Name Role Phone Lanre Parekh Primary Care Provide r Eliana Quevedo MD Unavailable [phone] Encounter Details Date Type Department Care Team (Late st Contact Info) Description 06/08/2023 Orders Only [facility] Gastroenterology [address] Advanced [facility] 12th [place] [address] [place] [address] Qi Maguire RN Crohn's disease of both small and large intestine with intestinal obstruction (HCC) (Primary Dx); Diarrhea, unspecified type Social History Tobacco Use Types Packs/Day Years [...] How often do you attend chur or gnosticist services? 1 to 4 times per year [...] to sleep or slept in a senior living (including now)? No 11/03/2022 Personal Safety Answer Date Recorded Have you ever been in or are you currently in a harmful physical or emotional relationship or is someone making you feel afraid or unsafe? 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 Gender Identity Not on file Sexual Orientation Not on file documented as of this encounter Plan of Treatment Scheduled Orders Name Type Priority Associated Diagnoses Orde r Schedule Clostridium difficile Toxin/GDH with Reflex to PCR Stool Microbiology Routine Diarrhea, unspecified type Expected: 06/08/2023, Expires: 06/08/2024 Calprotectin, fecal Lab Routine Crohn's disease of both small and large intestine with intestinal obstruction (HCC) Expected: 06/08/2023, Expires: 06/08/2024 documented as of this encounter Visit Diagnoses Diagnosis Crohn's disease of both small and large intestine with intestinal obstruction (HCC)- Primary Diarrhea, unspecified type documented in this encounter Care Teams Conveyor Tender Relationship Specialty Start Date End Date Lanre Parekh DO PCP - General Family Medicine 01/23/19 Eliana Quevedo MD [address] [place] [address] Referring Physician Gastroenterology 11/07/22 documented as of this encounter
--- OUTSIDE RECORDS SUMMARY | 2024-07-09 05:22 | XMS_ITS | Encounter Summary ---
Author Organization [facility] [place] [facility] Address [address] [place] [address] Phone Care Team Providers Care Thickener Operator Name Role Phone Lanre Parekh Primary Care Provide r Eliana Quevedo MD Unavailable [phone] Reason for Visit * Reason Onset Date Comments Med Management- Hyrimoz 06/23/2024 Encounter Details Date Type Department Care Team (Late st Contact Info) Description 06/23/2024 Telephone [facility] Gastroenterology [address] [place] [address] [place] [address] Qi Maguire RN Med Management- jN Social History Tobacco Use Types Packs/Day Years [...] often do you attend chur ch or nondenominational services? 1 to 4 times per year 11/03/2022 Do you belong to any clubs o r organizations such as voodoo groups, unions, fraternal or athletic groups, or school groups? No 11/03/2022 How often do you attend meet ings of the clubs or organizations you belong to? Never 11/03/2022 Are you , , di vorced, , never , or living with a partner? 11/03/2022 AUDIT-C Answer Date Recorded Q1: How often do you have a drink containing alcohol? 4 or more times a week 06/11/2024 Q2: How many drinks containi ng alcohol do you have on a typical day when you are drinking? 1 or 2 Q3: How often do you have si x or more drinks on one occasion? Never 06/11/2024 Overall Financial Resource Strain (CARDIA) Answe r [...] place to sleep or slept in a mcc (including now)? No 11/03/2022 Personal Safety Answer Date Recorded Have you ever been in or are you currently in a harmful physical or emotional relationship or is someone making you feel afraid or unsafe? 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 Call to [facility] and they report they needed additional information. Questions answered and they report they need documentation that patient has achieved/maintained remission while on the 40 mg q7days. Clinic note from 12/10/2023 that verifies clinical remission faxed to provided number with PA information. They report a decision will be made in 24-72 business hours. Fax- [phone] PA # [phone] CREAM TRUCK DRIVER documented in this encounter Plan of Treatment Not on file documented as of this encounter Visit Diagnoses Not on filedocumented in this encounter Care Teams Thickener Operator Relationship Specialty Start Date End Date Lanre Parekh DO PCP - General Family Medicine 01/23/19 Eliana Quevedo MD [address] [place] [address] Referring Physician Gastroenterology 11/07/22 documented as of this encounter
--- OUTSIDE RECORDS SUMMARY | 2024-07-09 05:22 | XMS_ITS | Encounter Summary ---
Author Organization [facility] Address [address] [place] [address] Phone Care Team Providers Care Top Lift Compresser Name Role Phone Lanre Parekh Primary Care Provide r Eliana Quevedo MD Unavailable [phone] Reason for Visit * Reason Onset Date Comments appointment 06/01/2023 06.04.2023 Encounter Details Date Type Department Care Team (Late st Contact Info) Description 06/01/2023 Telephone [facility] [address] [place] [address] [place] [address] Fernando Mckeon MD [address] [facility] [place] [address] appointment (06.04.2023) Social History Tobacco Use Types Packs/Day Years [...] week 11/03/2022 How often do you attend [facility] or zoroastrianism services? 1 to 4 times per year 11/03/2022 Do you belong to any clubs o r organizations such as mormonism groups, unions, fraternal or athletic groups, or [...] place to sleep or slept in a custodial (including now)? No 11/03/2022 Personal Safety Answer Date Recorded Have you ever been in or are you currently in a harmful physical or emotional relationship or is someone making you feel afraid or unsafe? Denies 11/02/2022 Sex and Gender Information Value Date Recorded Sex Assigned at Not on file Legal Sex Male 11:11 PM CART ATTENDANT Gender Identity Not on file Sexual Orientation Not on file documented as of this encounter Miscellaneous Notes * Telephone Encounter - Dorinda Davis CMA - 06/01/2023 2:05 PM CART ATTENDANT Patient returned voicemail to confirmed appt with Dr. Mckeon on 06.04.23. ATTENDANT * Telephone Encounter - Dorinda Davis CMA - 06/01/2023 1:41 PM CART ATTENDANT LVM with patient to confirm appt with Dr. Mckeon on 06.04.2023. ATTENDANT documented in this encounter Plan of Treatment Not on file documented as of this encounter Visit Diagnoses Not on filedocumented in this encounter Care Teams Top Lift Compresser Relationship Specialty Start Date End Date Lanre Parekh DO PCP - General Family Medicine 01/23/19 Eliana Quevedo MD [address] [place] [address] Referring Physician Gastroenterology 11/07/22 documented as of this encounter
--- OUTSIDE RECORDS SUMMARY | 2024-07-09 05:22 | XMS_ITS | Encounter Summary ---
Author Organization [facility] Address [address] [place] [address] Phone Care Team Providers Care Refrigeration Mechanic Helper Name Role Phone Lanre Parekh DO Primary Care Provide r Eliana Quevedo MD Unavailable [phone] Encounter Details Date Type Department Care Team (Late st Contact Info) Description 04/16/2024 Telephone [facility] Minimally Invasive Surgery [address] Advanced Medicine [address], [place] [address] Reyna Thomason RN Social History [...] often do you attend chur ch or orthodoxy services? 1 to 4 times per year 11/03/2022 Do you belong to any clubs o r organizations such as judaism groups, unions, fraternal or athletic groups, or [...] place to sleep or slept in a halfway (including now)? No 11/03/2022 Personal Safety Answer Date Recorded Have you ever been in or are you currently in a harmful physical or emotional relationship or is someone making you feel afraid or unsafe? 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 Lynch Medical/Surgical Information: Outcome/Plan: LVM for pt and requested pt to call our office at [phone] to coordinate getting a date scheduled for surgery with Dr. Lynch. documented in this encounter Plan of Treatment Not on file documented as of this encounter Visit Diagnoses Not on filedocumented in this encounter Care Teams Refrigeration Mechanic Helper Relationship Specialty Start Date End Date Lanre Parekh DO PCP - General Family Medicine 01/23/19 Eliana Quevedo MD [address] [place] [address] Referring Physician Gastroenterology 11/07/22 documented as of this encounter
--- OUTSIDE RECORDS SUMMARY | 2024-07-09 05:22 | XMS_ITS | Encounter Summary ---
Author Organization [facility] Address [address] [place] [address] Phone Care Team Providers Care Basic Sciences Professor Name Role Phone Lanre Parekh Primary Care Provide r Eliana Quevedo MD Unavailable [phone] Reason for Visit * Reason Comments Osteopenia Encounter Details Date Type Department Care Team (Latest Contact Info) Description 06/04/2023 2:00 PM COMPUTER OPERATIONS SPECIALIST Office Visit [facility] [address] [place] [address] [place] [address] Fernando Mckeon MD [address] [place] [address] Crohn's disease without complication, unspecified gastrointestinal tract location (HCC) (Primary Dx) Social History Tobacco Use Types [...] week 11/03/2022 How often do you attend [facility] or church services? 1 to 4 times per year 11/03/2022 Do you belong to any clubs o r organizations such as anglican groups, unions, fraternal or athletic groups, or [...] place to sleep or slept in a mcfp (including now)? No 11/03/2022 Personal Safety Answer Date Recorded Have you ever been in or are you currently in a harmful physical or emotional relationship or is someone making you feel afraid or unsafe? Denies 11/02/2022 Sex and Gender Information Value Date Recorded Sex Assigned at Not on file Legal Sex Male 11:11 PM COMPUTER OPERATIONS SPECIALIST Gender Identity Not on file Sexual Orientation Not on file documented as of this encounter Last Filed Vital Signs Vital Sign Reading Time Taken Comments Blood Pressure - - Pulse - - Temperature - - Respiratory Rate - - Oxygen Saturation - - Inhaled Oxygen Concentration - - Weight 88.7 kg (195 lb 9.6 oz) 06/04/2023 2:01 P M COMPUTER OPERATIONS SPECIALIST Height 171.2 cm (5' 7.4 ) 06/04/2023 2:01 PM COMPUTER OPERATIONS SPECIALIST Body Mass Index 30.27 06/04/2023 2:01 PM COMPUTER OPERATIONS SPECIALIST documented in this encounter Patient Instructions * Patient Instructions* Fernando Mckeon MD - 06/04/2023 2:00 PM COMPUTER OPERATIONS SPECIALIST Bone Health Program Discharge and Information Sheet Contact: Call: [phone] or [phone] FAX: [phone] Name: Nic Kiran Teran Thank you for choosing the [facility] for consultation about your bone health! We hope that your experience with our program was informative, pleasant, and valuable. Following are a set of instructions that we ask you to read carefully and follow so that the recommenda tions you have received can be correctly implemented. PLAN: the following has been recommended as treatment for your bone health - Conservative Treatment Plan; Calcium, Vitamin D and Excercise - Calcium 5827-7768 mg daily, through a combination of diet and supplements - Vitamin D 6960-5618 IU daily - Weight bearing activity as tolerated (Walking is great!) - Fall prevention: be cautious in the winter months with regards to ice, snow and other slippery conditions both outside, in entry ways and in public buildings; use railings on stairs; remove unnecessary trip hazards from the home such as loose electrical cords and throw rugs - Please call the office with any new fracture or initiation of prednisone - Doctors visit and Bone Density Exam in 1 year Follow Up Appointment: Please stop at the net front end developer to make a follow-up appointment in 1 year or call [phone]. Every attempt will be made to schedule the follow-up appointment at the physician's recommended time point. Lab Test Results: If you have been given lab orders to have your blood drawn, please allow for a few days for the results to come back and your physician review them. Results are viewable by you in My Chart as soon as they become available. Your provider may add some comments as well. If you have not received your results or have not heard back from us after two weeks since your blood was drawn, please feel free to give our office a call at [phone] option # 1. Bone Density Testing: To ensure the best quality of care, we strongly recommend you have all your follow up bone density tests done at our center. Bone density tests cannot be compared between different facilities. If another physician requests a bone density test for you, please let her/him know that your bone density is being monitored by the [facility]. If your other providers have questions or would like a report of your bone density scans, they can contact [facility] [phone] or Medical Records at [phone]. Important! Always remember to stop taking your calcium supplements 24 hours before you are scheduled to have your bone density test at your next visit. If you need to make changes to your follow-up appointment or are running late to your visit at the Bone [facility] Program, please contact us as soon as possible at [phone] ([facility]), or [phone] ([facility]), or [phone] ([facility]). We work on a very tight schedule and depending on the circumstances it may be necessary to resched ule your appointment if no other time slot is available on the same day. [facility] patient portal allows you to view your medical records, test results, personal information,request prescription renewals, review past appointments, request new ones and securely communicate online with our office. Ask at the race engine builder desk about receiving an invite to join [employer] portal. For questions about accessing [facility] patient portal call [phone]. Feel free to visit our web site for further information on medications, diet, exercise and other things you can do to take charge of your bone health: [email or web address] Thank you for choosing the [facility]! UTER OPERATIONS SPECIALIST documented in this encounter Progress Notes * Fernando Mckeon MD - 06/04/2023 2:00 PM CST REASON FOR VISIT: Presents for follow up of low bone mass for age. HISTORY OF PRESENT ILLNESS: The patient is a 32 y.o. male with a pastmedical history significant for low bone mass forage, vitamin D deficiency and perforating ileocolonic Crohn's disease complicated by ileosigmoidfistula formation. The patient was diagnosed in 2004 after presenting with abdominal pain, diarrhea,and hematochezia. He states that he was symptomatic for 3 years prior in part because of negligence onthe part of his parents. There was a delay in his diagnosis. Initially he was treated with high dose prednisone therapy for 2 to 3 years after his diagnosis, anywhere from 10 to 40 mg per day but mainly at the higherend of this range, in part because on lower doses he would frequently flare. In 2006 he was transitioned to azathioprine and Remicade and eventually to Humira. He reports only brief interval exposure to prednisone in 2012 for a month. Unfortunately, because of insurance issues, there was an interruption of his Humira therapy from June to October of 2015 when he had an acute flare in September. At that time he is on methotrexate and Humira every alternate . Heunderwent an uncomplicated ileocecectomy on 01/11/2018. In terms of his Crohn's he was Increased Humira Q2 weeks to Q weekly, decreased MP6 in Aprily GI given low humira doses. Interval History: Patient reports that his father and he is POA for his brother with schizophrenia. Patient reports it has been stressful. Also reports an interval hospitalization October 2022- unclear Crohn's flare versus infective, initially thought to be infective completed IV antibiotics, patient states his new GI doctor felt more likely Crohn's flare triggered by running out of meds Crohn's disease. IV steroids -one dose during that hospitalization. Falls: Reports No falls or fractures. Fractures: none Activity: Started working out [employer] work out group after being introduced by a friend. Weight, strengthening, conditioning exercise works out 5/7 days. Since starting this exercise regimen he has noted increased energy levels and well begin. . Calcium/Vitamin D: 5000 IUs daily . Good dietary calcium intake dairy daily 1-2 servings, Dark green leafy vegetables 3-5 times per week. Dental: up to date notes multiple cavities ROS- Denies any current symptoms of fatigue, fevers, chills, headaches, dizziness, imbalance, palpitations, sore throat, dysphagia, chest pain, SOB, JENNIFER, abdominal pain, reflux/GERD, N/V, diarrhea, constipation, bloody bowel movements, joint pain, muscle pain. PAST MEDICAL HISTORY: 1. Crohn's disease diagnosed in 2004. 2. Perforating ileocolonic disease with an ileosigmoid fistula diagnosed on imaging in 2014 and confirmed on colonoscopy 10/2016. 3. Iritis related to #1. 4. Polyarticular joint pain related to Crohn's. 5. Low bone mass for age based on bone density in 2014 and confirmed on bone density in April 2017. 6. 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 Supervised by Dr. Karol Tran, a pediatric pantry worker at [facility]. 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 He has 2 children, 3.5 Years and 1.5 years old. No alcohol, tobacco, or excessive caffeine intake. . PAST SURGICAL HISTORY: Surgical History Past Surgical History: Procedure Laterality Date OTHER SURGICAL HISTORY 12/2017 ileocecal resection VASECTOMY 2018 ACTIVE PROBLEMS: Patient Active Problem List Diagnosis Crohn's disease of both small and large intestine (CMS/HCC) History of high risk medication treatment Iritis Osteoporosis Crohn's disease with complication (CMS/HCC) Acute postoperative pain Generalized abdominal pain Diarrhea due to malabsorption CURRENT MEDICATIONS: Current Outpatient Prescriptions: ADALIMUMAB SUBQ, 40 mg subQ every 2 weeks balsalazide (COLAZAL) 1500 mg capsule, daily CitraCal, 1 tablet daily, (325mg calcium, 500 units Vitamin D) cholecalciferol (VITAMIN D-3) 5,000 unit daily colestipol (COLESTID) 1 gram tablet daily ergocalciferol (VITAMIN D) 50,000 unit capsule every 14 (fourteen) days. multivitamin capsule, daily - contains 500 units Vitamin D 6-MP, 50mg, daily Allopurinol, 100mg, dialy ALLERGIES: Allergies Allergen Reactions Flagyl [Metronidazole] Other (See comments) Neuropathy FAMILY HISTORY: Family History Problem Relation Age of Onset Hypertension Mother Family history of hypertension - (Added by TW Conv) Kidney failure Mother Family history of renal failure - (Added by TW Conv) Hypertension Father Family history of hypertension - (Added by TW Conv) Ulcerative colitis Mother's Sister Vitals Vitals Ht 171.2 cm (5' 7.4 ) Wt 88.7 kg (195 lb 9.6 oz) BMI 30.27 kg/m?? PHYSICAL EXAM: Alert and Oriented x3 Physical Exam Constitutional:well-developed, well-nourished, and in no distress. HENT: Head: Normocephalic and atraumatic. Eyes: Pupils are equal, round, and reactive to light. Conjunctivae and EOM are normal. Neck: Normal range of motion. Neck supple. No thyromegaly present. Cardiovascular: Normal rate, regular rhythm, normal heart sounds and intact distal pulses. Pulmonary/Chest: Effort normal and breath sounds normal. Abdominal: Soft. Bowel sounds are normal. She exhibits no distension. There is no tenderness. Musculoskeletal: Normal range of motion. Spine is straight, no paraspinal edema or tenderness to palpation, gait is steady and unaided, 5/5 strength and normal tone throughout. Skin: Skin is warm and dry. Psychiatric: Mood, memory, affect and judgment normal. Vitals reviewed. FINDINGS: BONE MINERAL DENSITY OF THE LUMBAR [...] and gender matched controls of -1.2. Femoral neckis 0.657 gm/cm2 with a Z-score (standard deviations [...] Trabecular Bone Score is 1.283 which suggests partially degraded bone microarchitecture compared to the general population. Final decisions regarding diagnostic or therapeutic recommendations should include BMD, TBS, additional clinical risk factors as well the clinical context of the patient. Please see attached TBS results for further details. ASSESSMENT: This is a 32 y.o. male with a past medical history significant for low bone mass for age,vitamin D deficiency, short stature (prior treatment with GH replacement) and Crohn's disease diagnosed in 2004 with 2 to 3 years of high dose prednisone exposure with dosesranging from 10 to 40 mg per day. He was then transitioned initially to azathioprine and Remicade, and now is currently on Humira/6-MP+allopurinol. The patient reports a previous bone density in 2014 that was consistent with osteopenia. Bone density performed in 2017 baseline in our center was consistent with low bone mass for age based on the Z-scores that are at or below -2.0. He was optimized with Vitamin D supplementation and had a marked 6.4% improvement at the lumbar spine and a 4.5% improvement at the left total hip on subsequent BMD testing in 2018 and stable on rpt BMD measurements today. Largely due to optimization of his vitamin D status, clinical improvement of his Crohn's. His low bone mass for age likely due to his Crohn's and it is unlikely he will acquire peak bone mass which we would expect around age 29. Detailed evaluation to rule out additional contributing causes to the patient's bone loss on his initial visit in 2016 were largely wnl with the exception of vitamin D level 21, serum phosphorus was within normal limits. . Free T4 and TSH , Free and total Testosterone and SPEP , CMP were within normal limits. , and 24 hour urine studies 242 mg/24hrs (1) Low bone mass: DEXA [id number] Lumbar Spine Tscore - 0.9 , Left total Hip T score -1.6 , Femoral Neck T score -2.2.With a 8% improvement at the spina and a 6% improvement at the hip. 2022 L1-L4 Lumbar Spine Tscore -0.9 , Left total Hip T score - 1.3 , Femoral Neck T score -2.0 TBS- partially degraded bone quality PLAN Continued robust imporvements in the setting of increased exercise, though improved control of his Crohn's is the major factor. Labs today CMP, PTH D- to be done with upcoming labs. F/u in 2 yr with rpt BMD Continue 5 000 IUs daily . 1000mg of calcium daily via diet. I encouraged the patient to continue his weight-bearing exercises. Thank you for sending your patient to the [facility] at [facility]. Please let us know if I can be of any more assistance. If you have any questions or concerns please do not hesitate to give us a call. UTER OPERATIONS SPECIALIST UTER OPERATIONS SPECIALIST documented in this encounter Plan of Treatment Scheduled Orders Name Type Priority Associated Diagnoses Orde r Schedule Vitamin D 25 hydroxy Lab Routine Crohn's disease without complication, unspecified gastrointestinal tract location (HCC) Ordered: 06/04/2023 documented as of this encounter Visit Diagnoses Diagnosis Crohn's disease without complication, unspecified gastrointestinal tract location (HCC)- Primary documented in this encounter Historical Medications * This list may reflect changes made after this encounter. cholecalciferol (VITAMIN D-3) 5,000 unit tabletIndications :Vitamin D Deficiency Take 1 tablet (5,000 Units total) by mouth every morning added in this encounter Care Teams Basic Sciences Professor Relationship Specialty Start Date End Date Lanre Parekh DO PCP - General Family Medicine 01/23/19 Eliana Quevedo MD [address] [place] [address] Referring Physician Gastroenterology 11/07/22 documented as of this encounter
--- OUTSIDE RECORDS SUMMARY | 2024-07-09 05:22 | XMS_ITS | Encounter Summary ---
Author Organization [facility] Address [address] [place] [address] Phone Care Team Providers Care Motor Assembly Supervisor Name Role Phone Lanre Parekh Primary Care Provide r Eliana Quevedo MD Unavailable [phone] Reason for Referral * Consultation (Routine) - Closed Specialty Diagnoses / Procedures Referred By Contac t Referred To Contact Minimally Invasive Surgery Diagnoses Incisional hernia, without obstruction or gangrene Jackeline Lozano MD [address] [facility] [address] [place] [address] Phone: tel: fax: [facility] (All Locations) Referral ID Status Reason Start Date Expiration Date V isits Requested Visits Authorized [id number] Closed Specialty Services Required 12/10/2023 01/08/2025 1 1 Question Answer Please select the performing region: [facility] (All Locations) [167] # of visits: 1 Encounter Details Date Type Department Care Team (Late st Contact Info) Description 12/10/2023 1:30 PM CDT Office Visit [facility] Gastroenterology [address]th [place] [address] [place] [address] Jackeline Lozano MD [address] [facility] [address] [place] [address] Crohn's disease of both small and large intestine without complication (CMS/HCC) (HCC) (Primary Dx); High risk medications (not anticoagulants) long-term use; Health care maintenance; Incisional hernia, without obstruction or gangrene Social History Tobacco Use Types Packs/Day Years [...] any clubs o r organizations such as roman catholic groups, unions, fraternal or athletic groups, or [...] place to sleep or slept in a detention (including now)? No 11/03/2022 Personal Safety Answer Date Recorded Have you ever been in or are you currently in a harmful physical or emotional relationship or is someone making you feel afraid or unsafe? 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 Gender Identity Not on file Sexual Orientation Not on file documented as of this encounter Last Filed Vital Signs Vital Sign Reading Time Taken Comments Blood Pressure 129/70 12/10/2023 1:35 PM CDT Pulse 67 12/10/2023 1:35 PM CDT Temperature 36.4 ??C (97.5 ??F) 12/10/2023 1:35 PM CD T Respiratory Rate - - Oxygen Saturation 100% 12/10/2023 1:35 PM CDT Inhaled Oxygen Concentration - - Weight 90.5 kg (199 lb 9.6 oz) 12/10/2023 1:32 P M CDT Height 172.7 cm (5' 8 ) 12/10/2023 1:32 PM CDT Body Mass Index 30.35 12/10/2023 1:32 PM CDT documented in this encounter Patient Instructions * Patient Instructions* Jasiel Garcia NP - 12/10/2023 1:30 PM CDT Thank you for entrusting your healthcare to the physicians at [facility]! INSTRUCTIONS FOR DISCHARGE: The following information and instructions are from your visit today: Continue Hyrimoz weekly and 6-MP daily. We will check safety labs with thiopurine metabolites at next draw. Referral to colorectal surgery for hernia. Colonoscopy in the next 6-12 months. Follow up in the office in six months. Following your visit, you may receive a survey via email or [employer]ience[employer]ien[employer]. We encourage you to respond tothis confidential survey about your care. If you received excellent care, she would appreciate yourevaluation. Your feedback helps us to provide quality service at every visit. Thank you for your help in making our practice meet the highest expectations! [facility] [address] [place] [address] [facility] [address] [place] [address] [address] [place] [address] opt. 1 We are committed to your wellness. Inflammatory bowel disease is a serious chronic condition the disease, and the medications used to treat it require close follow-up and monitoring. Sometimes if you have problems arise, we may need to do some testing or direct you to your primary care doctor or urgent care/ER depending on the problem. Often times having some labs done before an urgent visit can make our time more productive. It is important to keep routine follow-up appointments to ensure your overall health, refill medications, and monitor safety. If you have GI-related problems before an appointment, please let us know in case we need to see you sooner or do some testing. Healthy Living also involves preventative measures including a healthy diet, vaccinations, and appropriate screening exams. Below are a list of what we recommend: Diet Recommendations: In general, a Mediterranean-style diet is recommended, increasing intake of omega 3 fatty acids and real foods , and decreasing processed and refined carbohydrates. Pap Smears - Annual Pap smears are recommended if you are female and on any biologic therapy or immune modulator. Annual Dermatologic Exam or Skin exam by your primary care physician or a greeting card writer as patientswith IBD are at increased risk of skin cancer, moreso if on immunosuppressant medications. Bone health - IBD can weaken your bones. We recommend Calcium 8523-5423 mg daily, and vitamin D 800-1000 IU daily. These can be obtained over the counter and can help prevent fractures. Eye exam: Patients with IBD are at increased risk of disorders of the eye. We recommend annual eye exams. Multivitamin - all patients with IBD should take a daily multivitamin. Avoid: Smoking, heavy alcohol use, NSAIDs (ibuprofen, motrin, aleve, naproxen, etc) Health Maintenance for patients with IBD (Inflammatory Bowel Disease): Immunizations:- With IBD you are at higher risk of getting sick from routine infections. The following vaccinations are recommended by the Crohn's and Colitis Foundation. ~~LIVE VACCINES ARE NOT RECOMMENDED~~ Influenza (inactive) administered Pneumococcal PCV20 (Lueblyl77) Pneumococcal PPSV23 (PNUEMOVAX 23) Tdap >7 yrs HPV series (between ages of 11-45 years) Meningococcal meningitis (If at risk) Hepatitis A series (If not immune) Hepatitis B series (If not immune) Herpes Zoster (CDC recommends Shingrix) COVID Vaccine plus booster (mRNA is preferred) documented in this encounter Progress Notes * Jasiel Garcia NP - 12/10/2023 1:30 PM CDT Images from the original note [...] of present illness: Nic Teran is a 33 y.o. male with history of stricturing ileocolonic Crohn's disease, s/p ileocecectomy in 2017. His colonoscopy in December 2021 demonstrated mucosal remission. His 6-TG was subtherapeutic at 195, and 6-MMP was <500 in Jul 2022. Last CRP: 13.4 (10/2022). Patient was recently hospitalized at [facility] in October 2022 for diarrhea and abdominal pain. He had a colonoscopy during this admission which showed patent ileo-colonic anastomosis, two small ulcers without bleeding, normal colon and ileum. Symptoms were thought to be secondary to an infectious etiology. In March 2023, patient noted new RLQ pain. At this time, patient had a CTAP done without active inflammatory bowel disease. Since then, patient notes he feels clinically well. He denies any abdominal pain, nausea, vomiting,bloating, or cramping. Typically has about 2 BMs per day in the morning. Denies mucus or blood in stool. No nighttime diarrhea or urgency noted. He is currently maintained on Hyrimoz 40mg weekly, mercaptopurine 50mg daily, and allopurinol 100mg daily. He additionally takes colestipol daily and balsalazide 1500mg TID. He complains of incisional hernia that has been getting bigger since his ileocecectomy in 2018. He feels that it has been progressively worsening over the past two years. He states that when he applies pressure to the hernia it causes pain. He has not reached out to the surgeon recently. Past Medical & Surgical history: Allergic rhinitis [...] above in the HPI Physical Exam: BP 129/70 Pulse 67 Temp 36.4 ??C (97.5 ??F) Ht 172.7 cm (5' 8 ) Wt 90.5 kg (199 lb 9.6 oz) SpO2 100% BMI 30.35 kg/m?? General: Well-appearing, in no acute distress. [...] Assessment & plan Nic Teran is a 33 y.o. male with history of severe Crohn's disease involving the colon and the terminal ileum. Nic underwent ileocolectomy in 2017 to address an active and stricturing disease at the terminal ileum. He switched to Hyrimoz in mid-September d/t insurance coverage with Humira. Currently doing well on this therapy along with 6-MP which resulted in mucosal remission during his last colonoscopy in October 2022. We recommend that he continues his current medication regimen. We will place a referral to surgery for further evaluation and treatment/management of hernia. We will check safety labs at his next labdraw, along with thiopurine metabolites to monitor drug levels. We will plan for colonoscopy between the next 6-12 months. Follow up in the office in six months, sooner if needed. Jasiel Garcia, MSN CHIEF DIGITAL OFFICER PLATE CONDITIONER-C Family Nurse Practitioner, [facility] Division of Gastroenterology Cosigned by Jackeline oLzano MD at 12/11/2023 7:19 AM CDT Associated attestation - Jackeline Lozano MD - 12/11/2023 7:19 AM CDT I have seen and examined the patient. I agree with the findings and plan of care as documented in the resident/fellow's note. My total encounter time on 12/10/2023 was 30 minutes which was spent in the activities documented in the note. This includes time spent prior to the visit and after the visitin direct care of the patient. This time does not include time spent in any separately reportable services. documented in this encounter Miscellaneous Notes * Result Encounter Note - Jackeline Lozano MD - 03/28/2024 12:27 AM CDT Test results are within the normal range.Therapeutic metabolites on 6MP 50 mg and allopurinol. * Assessment & Plan Note - Jasiel Garcia NP - 12/10/2023 2:19 PM CDTAssociated Problem(s): Health care maintenance Recommendations: Continue yearly skin checks and eye exams. * Assessment & Plan Note - Jasiel Garcia NP - 12/10/2023 2:19 PM CDTAssociated Problem(s): Crohn's disease of both small and large intestine (HCC) Dx in 2004. Currently doing well on Hyrimoz 40mg weekly, mercaptopurine 50mg daily, allopurinol 100mg daily, colestipol daily and balsalazide 1500mg TID. His last colonoscopy in October 2022 showed patent ileo-colonic anastomosis, two small ulcers without bleeding, normal colon and ileum. Recommendations: Continue current medication regimen. Will check safety labs with thiopurine metabolites. Repeat colonoscopy in 6-12 months. Follow up in the office in six months, sooner if needed. * Assessment & Plan Note - Jasiel Garcia NP - 12/10/2023 1:41 PM CDTAssociated Problem(s): High risk medications (not anticoagulants) long-term use Currently taking Humira 40 mg SQ every week with 6-MP. Adalimumab level in 2020 was 9.1. Thiopurine metabolites drawn in July 2022 was low. Recommendations: Continue current medication regimen. Check safety labs with thiopurine metabolites at next lab draw. High risk medications: For all patients taking immunosuppressive biologic therapies or immunomodulators, we provide a balanced discussion on the benefits and risks associated with these medications. The potential toxicities and risks discussed include, but are not limited to the following: infusionreactions including anaphylaxis; bacterial, viral and fungal infections; pancreatitis; heart failure; neurologic reactions; hematologic and solid tumors malignancy including an increased risk of lymphoma and skin cancers; bone marrow toxicity including anemia, neutropenia and immune suppression; hepatotoxicity; and induction of autoimmunity. Patients are actively monitored through routine scheduled laboratory testing at least every 3-4 months, which I personally review. Patients are encouraged to contact us with any questions regarding new symptom development. documented in this encounter Plan of Treatment Scheduled Referrals Name Type Priority Associated Diagnoses Orde r Schedule Ambulatory referral to Minimally Invasive Surgery Outpatient Referral Routine Incisional hernia, without obstruction or gangrene Expected: 12/24/2023 (Approximate), Expires: 12/09/2024 documented as of this encounter Procedures Procedure Name Priority Date/Time Associated Diagnosis Comments THIOPURINE METABOLITES Routine 03/24/2024 2:53 PM CDT Crohn's disease of both small and large intestine without complication (CMS/HCC) (HCC) High risk medications (not anticoagulants) long-term use Health care maintenance CBC WITH AUTO DIFFERENTIAL Routine 03/24/2024 2:53 PM CDT Crohn's disease of both small and large intestine without complication (CMS/HCC) (HCC) High risk medications (not anticoagulants) long-term use Health care maintenance CRP (ACUTE PHASE) Routine 03/24/2024 2:5 3 PM CDT Crohn's disease of both small and large intestine without complication (CMS/HCC) (HCC) High risk medications (not anticoagulants) long-term use Health care maintenance COMPREHENSIVE METABOLIC PANEL Routine 03/24/2024 2:53 PM CDT Crohn's disease of both small and large intestine without complication (CMS/HCC) (HCC) High risk medications (not anticoagulants) long-term use Health care maintenance documented in this encounter Results * Thiopurine metabolites (03/24/2024 2:53 PM CDT) 6-TG, bld 294 235 - 400 pmol/8x10( 8)RBC [facility] Comment: (Note) This test was developed and its analytical performance characteristics have been determined by [employer]. It has not been cleared or approved by the FDA. This assay has been validated pursuant to the CLIA regulations and is used for clinical purposes. 6 MMP <500 <5700 pmol/8x10( 8)RBC [facility] Comment: (Note) These results are useful in assessing a patient's metabolism of azathioprine (AZA) or 6-mercaptopurine (6-MP). A 6-thioguanine (6-TG) level greater than 235 pmol/8x10(8) RBC has been associated with remission and very high levels have been associated with leucopenia. 6-methylmercaptopurine (6-MMP) levels greater than 5700 pmol/8x10(8) RBC may be associated with hepatoxicity. This test was developed and its analytical performance characteristics have been determined by [employer]. It has not been cleared or approved by the FDA. This assay has been validated pursuant to the CLIA regulations and is used for clinical purposes. [facility] [address] [facility] [address] Joshua Parikh MD, PhD Blood 03/24/2024 2:53 PM CDT 03/24/2024 2:53 PM CDT us Jackeline Lozano MD LAB BLOOD ORDERABLES F inal Result [facility] [address] [place] [address] * CRP (acute phase) (03/24/2024 2:53 PM CDT) Pathologist [facility] C-RP <3.0 <8.0 mg/L [facility] Blood 03/24/2024 2:53 PM CDT 03/24/2024 2:53 PM CDT us Jackeline Lozano MD LAB BLOOD ORDERABLES F inal Result [facility] [address] [place] [address] * (ABNORMAL) Comprehensive metabolic panel (03/24/2024 2:53 PM CDT) Pathologist [facility] Glucose 108(H) 65 - 99 mg/dL [facility] Comment: ? Fasting reference interval For someone without known diabetes, a glucose value between 100 and 125 mg/dL is consistent with prediabetes and should be confirmed with a follow-up test. BUN 11 7 - 25 mg/dL [facility] Creatinine 1.01 0.60 - 1.26 mg/dL [employer] [facility] eGFR 100 > OR = 60 mL/min/1.7 3m2 [facility] BUN/creat ratio SEE NOTE: 6 22 (calc) [facility] Comment: ?? Not Reported: BUN and Creatinine are within ?? reference range. ? Sodium 138 135 - 146 mmol/L [employer] [facility] Potassium, pl 4.1 3.5 - 5.3 mmol/L [employer] [facility] Chloride 101 98 - 110 mmol/L [employer] [facility] CO2 28 20 - 32 mmol/L [employer] [facility] Calcium 9.6 8.6 - 10.3 mg/dL [employer] [facility] Protein, sr 7.6 6.1 - 8.1 g/dL [employer] Albumin 4.5 3.6 - 5.1 g/dL [employer] [facility] GLOBULIN 3.1 1.9 - 3.7 g/dL (calc) [facility] Alb/glob ratio 1.5 1.0 - 2.5 (calc) [facility] Bilirubin, total 0.8 0.2 - 1.2 mg/dL [facility] Alk phos 72 36 - 130 U/L [facility] AST 19 10 - 40 U/L [facility] ALT (SGPT) 24 9 - 46 U/L [facility] Blood 03/24/2024 2:53 PM CDT 03/24/2024 2:53 PM CDT us Jackeline Lozano MD LAB BLOOD ORDERABLES F inal Result [facility] [address] [place] [address] * (ABNORMAL) CBC with auto differential (03/24/2024 2:53 PM CDT) WBC 6.9 3.8 - 10.8 Thousand/u L [facility] RBC, POC 3.95(L) 4.20 - 5.80 Million/uL [facility] Hgb 13.4 13.2 - 17.1 g/dL [facility] Hct 41.1 38.5 - 50.0 % [facility] MCV 104.1(H) 80.0 - 100.0 fL [facility] MCH 33.9(H) 27.0 - 33.0 pg [facility] MCHC 32.6 32.0 - 36.0 g/dL [facility] Rdw 13.4 11.0 - 15.0 % [facility] Platelets 239 140 - 400 Thousand/u L [facility] MPV 11.1 7.5 - 12.5 fL [facility] Neutrophils, abs 4,016 1,500 - 7,800 cells/uL [facility] Lymphocytes, abs 2,381 850 - 3,900 cells/uL [facility] Monocyte abs 421 200 - 950 cells/uL [facility] Eosinophils, abs 41 15 - 500 cells/uL [facility] Basophils, abs 41 0 - 200 cells/uL [facility] Neutrophils 58.2 % [facility] Lymphocyte pct 34.5 % [facility] Monocytes 6.1 % [facility] Eosinophils 0.6 % [facility] Basophils 0.6 % [facility] Blood 03/24/2024 2:53 PM CDT 03/24/2024 2:53 PM CDT us Jackeline Lozano MD LAB BLOOD ORDERABLES F inal Result [facility] [address] [place] [address] documented in this encounter Visit Diagnoses Diagnosis Crohn's disease of both small and large intestine without complication (CMS/HCC) (HCC)- Primary High risk medications (not anticoagulants) long-term use Encounter for long-term (current) use of other medications Health care maintenance Incisional hernia, without obstruction or gangrene documented in this encounter Care Teams Motor Assembly Supervisor Relationship Specialty Start Date End Date Lanre Parekh DO PCP - General Family Medicine 01/23/19 Eliana Quevedo MD [address] [place] [address] Referring Physician Gastroenterology 11/07/22 documented as of this encounter
--- OUTSIDE RECORDS SUMMARY | 2024-07-09 05:22 | XMS_ITS | Encounter Summary ---
Author Organization [facility] Medical [facility] Address [address] [address] Care Team Providers Care Production Control Analyst Name Role Phone Lanre Parekh DO Primary Care Provide r Eliana Quevedo MD Unavailable [phone] Encounter Details Date Type Department Care Team (Late st Contact Info) Description 11/16/2022 Telephone [facility] Medical [facility] Hospitalists [address] [place] [address] Romana Brush, [place] [address] [place] [address] Social History Tobacco Use Types Packs/Day Years [...] often do you attend chur ch or advent services? 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 Will need to follow up with Dr. Quevedo. Currently asymptomatic. documented in this encounter Plan of Treatment Not on file documented as of this encounter Visit Diagnoses Not on filedocumented in this encounter Care Teams Production Control Analyst Relationship Specialty Start Date End Date Lanre Parekh DO PCP - General Family Medicine 01/23/19 Eliana Quevedo MD [address] [place] [address] Referring Physician Gastroenterology 11/07/22 documented as of this encounter
--- OUTSIDE RECORDS SUMMARY | 2024-07-09 05:22 | XMS_ITS | Encounter Summary ---
Author Organization [facility] Healthcare Address [address] [place] [address] Care Team Providers Care Shell Worker Name Role Phone Lanre Parekh DO Primary Care Provide r Eliana Quevedo MD Unavailable [phone] Encounter Details Date Type Department Care Team (Late st Contact Info) Description 05/30/2023 5:15 PM ADVANCE SEAL DELIVERY SYSTEM MAINTAINER Lab [facility] [address] [place] [id number] Crohn's disease of both small and large intestine with intestinal obstruction (HCC); History of high risk medication treatment; Routine [...] often do you attend chur ch or judaism services? 1 to 4 times per year [...] place to sleep or slept in a chcf (including now)? No 11/03/2022 Personal Safety Answer Date Recorded Have you ever been in or are you currently in a harmful physical or emotional relationship or is someone making you feel afraid or unsafe? Denies 11/02/2022 Sex and Gender Information Value Date Recorded Sex Assigned at Not on file Legal Sex Male 11:11 PM ADVANCE SEAL DELIVERY SYSTEM MAINTAINER Gender Identity Not on file Sexual Orientation Not on file documented as of this encounter Miscellaneous Notes * Result Encounter Note - Jackeline Lozano MD - 05/30/2023 11:39 PM ADVANCE SEAL DELIVERY SYSTEM MAINTAINER Test results are within the normal range. NCE SEAL DELIVERY SYSTEM MAINTAINER documented in this encounter Plan of Treatment Not on file documented as of this encounter Procedures Procedure Name Priority Date/Time Associated Diagnosis Comments T-SPOT.TB Routine 05/30/2023 4:07 PM ADVANCE SEAL DELIVERY SYSTEM MAINTAINER Crohn's disease of both small and large intestine with intestinal obstruction (HCC) History of high risk medication treatment Routine health maintenance EGFR Routine 05/30/2023 4:07 PM ADVANCE SEAL DELIVERY SYSTEM MAINTAINER Crohn's disease of both small and large intestine with intestinal obstruction (HCC) History of high risk medication treatment Routine health maintenance DIFFERENTIAL AUTO Routine 05/30/2023 4:0 7 PM ADVANCE SEAL DELIVERY SYSTEM MAINTAINER Crohn's disease of both small and large intestine with intestinal obstruction (HCC) History of high risk medication treatment Routine health maintenance CBC WITH AUTO DIFFERENTIAL Routine 05/30/2023 4:07 PM ADVANCE SEAL DELIVERY SYSTEM MAINTAINER Crohn's disease of both small and large intestine with intestinal obstruction (HCC) History of high risk medication treatment Routine health maintenance HEPATITIS B CORE ANTIBODY, TOTAL Routine 05/30/2023 4:07 PM ADVANCE SEAL DELIVERY SYSTEM MAINTAINER Crohn's disease of both small and large intestine with intestinal obstruction (HCC) History of high risk medication treatment Routine health maintenance HEPATITIS B SURFACE ANTIBODY (IMMUNE STATUS) Routine 05/30/2023 4:07 PM ADVANCE SEAL DELIVERY SYSTEM MAINTAINER Crohn's disease of both small and large intestine with intestinal obstruction (HCC) History of high risk medication treatment Routine health maintenance HEPATITIS B SURFACE ANTIGEN Routine 05/30/2023 4:07 PM ADVANCE SEAL DELIVERY SYSTEM MAINTAINER Crohn's disease of both small and large intestine with intestinal obstruction (HCC) History of high risk medication treatment Routine health maintenance CRP (ACUTE PHASE) Routine 05/30/2023 4:0 7 PM ADVANCE SEAL DELIVERY SYSTEM MAINTAINER Crohn's disease of both small and large intestine with intestinal obstruction (HCC) History of high risk medication treatment Routine health maintenance COMPREHENSIVE METABOLIC PANEL Routine 05/30/2023 4:07 PM ADVANCE SEAL DELIVERY SYSTEM MAINTAINER Crohn's disease of both small and large intestine with intestinal obstruction (HCC) History of high risk medication treatment Routine health maintenance documented in this encounter Results * eGFR (05/30/2023 4:07 PM ADVANCE SEAL DELIVERY SYSTEM MAINTAINER) eGFR >90 >=60 mL/min/1. 73 m2 [facility] Comment: Interpretive Data Reference Interval Normal ?>/= 90 mL/min/1.73m2 Mildly decreased* ? 60 - 89 mL/min/1.73m2 Mildly to moderately decreased ?45 - 59 mL/min/1.73m2 Moderately to severely decreased ??30 - 44 mL/min/1.73m2 Severely decreased ?15 - 29 mL/min/1.73m2 Kidney Failure ?< 15 ??mL/min/1.73m2 *Relative to young adult level Estimated glomerular filtration rate is determined by the 2020 CKD-EPI equation recommended by the National Kidney Foundation (A Unifying Approach to GFR Estimation: Recommendations of the NKF-ASK Task Force on Reassessing the Inclusion of Race in Diagnosing Kidney Disease, JASN 2020). The CKD-EPI equation should not be used for patients with unstable renal function and has not been validated in children and those over 70. Current interpretive data was last reviewed 2021. Blood 05/30/2023 4:07 PM ADVANCE SEAL DELIVERY SYSTEM MAINTAINER 05/30/2023 4:33 PM ADVANCE SEAL DELIVERY SYSTEM MAINTAINER us Jackeline Lozano MD LAB BLOOD ORDERABLES F inal Result [facility] Department [place] [address] * Differential, auto (05/30/2023 4:07 PM ADVANCE SEAL DELIVERY SYSTEM MAINTAINER) Neutrophil abs 3.1 1.7 - 6.5 K/cumm [facility] Imm gran abs 0.0 0.0 - 0.1 K/cumm [facility] Lymphocyte abs 2.4 0.8 - 3.3 K/cumm [facility] Monocyte abs 0.4 0.2 - 0.8 K/cumm [facility] Eosinophil abs 0.1 0.0 - 0.5 K/cumm [facility] Basophil abs 0.1 0.0 - 0.1 K/cumm [facility] Neutrophil pct 51.0 % [facility] Comment: Interpretive Data Percent cell count reference ranges are not reported, since discordance with absolute values may lead to misinterpretation of CBC data. Current Interpretive Data was last revised on 2017. Imm gran pct 0.3 % [facility] Comment: Interpretive Data Percent cell count reference ranges are not reported, since discordance with absolute values may lead to misinterpretation of CBC data. Current Interpretive Data was last revised on 2017. Lymphocyte pct 39.6 % [facility] Comment: Interpretive Data Percent cell count reference ranges are not reported, since discordance with absolute values may lead to misinterpretation of CBC data. Current Interpretive Data was last revised on 2017. Monocyte pct 6.5 % [facility] Comment: Interpretive Data Percent cell count reference ranges are not reported, since discordance with absolute values may lead to misinterpretation of CBC data. Current Interpretive Data was last revised on 2017. Eosinophil pct 1.8 % [facility] Comment: Interpretive Data Percent cell count reference ranges are not reported, since discordance with absolute values may lead to misinterpretation of CBC data. Current Interpretive Data was last revised on 2017. Basophil pct 0.8 % [facility] Comment: Interpretive Data Percent cell count reference ranges are not reported, since discordance with absolute values may lead to misinterpretation of CBC data. Current Interpretive Data was last revised on 2017. Blood 05/30/2023 4:07 PM ADVANCE SEAL DELIVERY SYSTEM MAINTAINER 05/30/2023 4:24 PM ADVANCE SEAL DELIVERY SYSTEM MAINTAINER Jackeline Lozano MD LAB BLOOD ORDERABLES F inal Result [facility] Department [place] [address] * (ABNORMAL) CBC with auto differential (05/30/2023 4:07 PM ADVANCE SEAL DELIVERY SYSTEM MAINTAINER) [facility] WBC 5.8 3.8 - 9.9 K/cumm [facility] Hgb 13.3 13.0 - 17.5 g/dL [facility] Comment: Interpretive Data A reference range for this assay has not been established for patients with an unknown legal sex. Please refer to the laboratory test catalog for established sex-specific reference intervals. Current interpretive data was last revised on 2023. Hct 39.2 38.9 - 50.3 % [facility] Comment: Interpretive Data A reference range for this assay has not been established for patients with an unknown legal sex. Please refer to the laboratory test catalog for established sex-specific reference intervals. Current interpretive data was last revised on 2023. Plt 222 150 - 400 K/cumm [facility] MPV 10.5 9.1 - 12.3 fL [facility] RBC 3.90(L) 4.30 - 5.80 M/cumm [facility] Comment: Interpretive Data A reference range for this assay has not been established for patients with an unknown legal sex. Please refer to the laboratory test catalog for established sex-specific reference intervals. Current interpretive data was last revised on 2023. MCV 100.5(H) 81.3 - 96.4 fL [facility] MCH 34.1(H) 27.1 - 33.3 pg [facility] MCHC 33.9 32.3 - 35.7 g/dL [facility] RDW CV 13.9 11.1 - 14.9 % [facility] RDW SD 51.5(H) 35.7 - 48.1 fL [facility] NRBC abs 0.00 0.00 - 0.01 K/cumm [facility] Blood 05/30/2023 4:07 PM ADVANCE SEAL DELIVERY SYSTEM MAINTAINER 05/30/2023 4:24 PM ADVANCE SEAL DELIVERY SYSTEM MAINTAINER Jackeline Lozano MD LAB BLOOD ORDERABLES F inal Result [facility] Department [place] [address] * Comprehensive metabolic panel (05/30/2023 4:07 PM ADVANCE SEAL DELIVERY SYSTEM MAINTAINER) Sodium 139 135 - 145 mmol/L [facility] Potassium, pl 4.3 3.3 - 4.9 mmol/L [facility] Chloride 102 97 - 110 mmol/L [facility] CO2 29 22 - 32 mmol/L [facility] Anion gap 8 2 - 15 mmol/L [facility] BUN 12 6 - 25 mg/dL [facility] Creatinine 1.04 0.80 - 1.30 mg/dL [facility] Glucose 106 70 - 199 mg/dL [facility] Comment: Interpretive Data Fasting glucose >/= 126 [...] 2022. Calcium 10.1 8.5 - 10.3 mg/dL [facility] Bilirubin, total 0.7 0.1 - 1.2 mg/dL [facility] Protein, pl 8.4 6.5 - 8.5 g/dL [facility] Albumin 4.8 3.5 - 5.0 g/dL [facility] Alk phos 76 40 - 130 Units/L [facility] ALT 37 7 - 55 Units/L [facility] AST 27 10 - 50 Units/L [facility] Blood 05/30/2023 4:07 PM ADVANCE SEAL DELIVERY SYSTEM MAINTAINER 05/30/2023 4:24 PM ADVANCE SEAL DELIVERY SYSTEM MAINTAINER us Jackeline Lozano MD LAB BLOOD ORDERABLES F inal Result Performing Organization Address [facility] Co de Phone Number [facility] [place] [address] * Hepatitis B surface antibody (immune status) Blood (05/30/2023 4:07 PM ADVANCE SEAL DELIVERY SYSTEM MAINTAINER) HBsAb (immune status) Reactive [facility] Comment:This result is consi stent with immunity to Hepatitis B Virus when used in the setting of routine screening. Current interpretive data was last revised on 22 HBsAb (immune status) index 32.5 mIUnits/m L [facility] Comment: The method for this assay was changed on 04/26/22. Quantitative results are approximately 0.5 log10 higher with the new assay in comparison with the one previously in use. Current interpretive data was last revised on 22. Blood 05/30/2023 4:07 PM ADVANCE SEAL DELIVERY SYSTEM MAINTAINER 05/30/2023 4:24 PM ADVANCE SEAL DELIVERY SYSTEM MAINTAINER us Jackeline Lozano MD LAB MICROBIOLOGY - GEN ERAL ORDERABLES Final Result Performing Organization Address [facility] Co de Phone Number [facility] Department [place] [address] * CRP (acute phase) (05/30/2023 4:07 PM ADVANCE SEAL DELIVERY SYSTEM MAINTAINER) CRP 1.9 <=10.0 mg/L [facility] Blood 05/30/2023 4:07 PM ADVANCE SEAL DELIVERY SYSTEM MAINTAINER 05/30/2023 4:24 PM ADVANCE SEAL DELIVERY SYSTEM MAINTAINER us Jackeline Lozano MD LAB BLOOD ORDERABLES F inal Result Performing Organization Address [facility]/State/ZIP Co de Phone Number [facility] Department [place] [address] * Hepatitis B core antibody, total Blood (05/30/2023 4:07 PM ADVANCE SEAL DELIVERY SYSTEM MAINTAINER) [facility] Hep B core IgG/IgM Nonreactive Nonreactive [facility] Blood 05/30/2023 4:07 PM ADVANCE SEAL DELIVERY SYSTEM MAINTAINER 05/30/2023 4:24 PM ADVANCE SEAL DELIVERY SYSTEM MAINTAINER Jackeline Lozano MD LAB MICROBIOLOGY - GEN ERAL ORDERABLES Final Result Performing Organization Address City/[facility] Co de Phone Number [facility] Department [place] [address] * Hepatitis B Surface Antigen Blood (05/30/2023 4:07 PM ADVANCE SEAL DELIVERY SYSTEM MAINTAINER) [facility] HepBsAg Nonreactive Nonreactive [facility] Blood 05/30/2023 4:07 PM ADVANCE SEAL DELIVERY SYSTEM MAINTAINER 05/30/2023 4:24 PM ADVANCE SEAL DELIVERY SYSTEM MAINTAINER us Jackeline Lozano MD LAB MICROBIOLOGY - GEN ERAL ORDERABLES Final Result Performing Organization Address [facility] Co de Phone Number [facility] Department [place] [address] * T-SPOT.TB Blood (05/30/2023 4:07 PM ADVANCE SEAL DELIVERY SYSTEM MAINTAINER) [facility] T-SPOT.TB Negative [facility] Comment: Normal Value: Negative A negative test [...] test. T-SPOT.TB Panel A Spot Count 0 [facility] T-SPOT.TB Panel B Spot Count 0 [facility] T-SPOT.TB Negative Control Passed [facility] T-SPOT.TB Positive Control Passed [facility] Comment: Test Performed at: [facility] [place], [place] ??[id number] ? NEREIDA FRIED MD,PHD Blood 05/30/2023 4:07 PM ADVANCE SEAL DELIVERY SYSTEM MAINTAINER 05/30/2023 6:23 PM ADVANCE SEAL DELIVERY SYSTEM MAINTAINER Jackeline Lozano MD LAB MICROBIOLOGY - GEN ERAL ORDERABLES Final Result [facility] Department [place] [address] documented in this encounter Visit Diagnoses Diagnosis Crohn's disease of both small and large intestine with intestinal obstruction (HCC) History of high risk medication treatment Routine health maintenance Unspecified examination documented in this encounter Care Teams Shell Worker Relationship Specialty Start Date End Date Lanre Parekh DO PCP - General Family Medicine 01/23/19 Eliana Quevedo MD [address] [place] [address] Referring Physician Gastroenterology 11/07/22 documented as of this encounter
--- OUTSIDE RECORDS SUMMARY | 2024-07-09 05:22 | XMS_ITS | Encounter Summary ---
Author Organization [facility] Address [address] [place] [address] Phone Care Team Providers Care Area Secretary Name Role Phone Lanre Parekh Primary Care Provide r Eliana Quevedo MD Unavailable [phone] Encounter Details Date Type Department Care Team (Late st Contact Info) Description 06/26/2023 Orders Only [facility] [address] [facility] Advanced Medicine 12th [place] [address] [place] [address] Qi Maguire RN Crohn's disease [...] often do you attend chur ch or gnosticism services? 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 30 tablet 06/26/2023 4 allopurinoL (ZYLOPRIM) 100 mg tabletIndications: Crohn's disease of both small and large intestine with intestinal obstruction (HCC) Take 1 tablet (100 mg total) by mouth daily 30 tablet 2 06/26/2023 4 documented in this encounter Plan of Treatment Not on file documented as of this encounter Visit Diagnoses Diagnosis Crohn's disease of both small and large intestine with intestinal obstruction (HCC) documented in this encounter Discontinued Medications Medication Sig Discontinue Reason Start Date End Da te allopurinoL (ZYLOPRIM) 100 mg tabletIndications:Crohn' s disease of both small and large intestine with intestinal obstruction (HCC) Take 1 tablet (100 mg total) by mouth daily Safety labs required every 3 months for med refills, next labs due 05/2023 for further refills to be authorized. Reorder 05/28/2023 06/26/2023 mercaptopurine (PURINETHOL) 50 mg tabletIndications:Crohn' s Disease Take 1 tablet (50 mg total) by mouth daily Safety labs required every 3 months for med refills, next labs due 05/2023 for further refills to be authorized. Reorder 05/28/2023 06/26/2023 documented as of this encounter Care Teams Area Secretary Relationship Specialty Start Date End Date Lanre Parekh DO PCP - General Family Medicine 01/23/19 Eliana Quevedo MD [address] [place] [address] Referring Physician Gastroenterology 11/07/22 documented as of this encounter
--- OUTSIDE RECORDS SUMMARY | 2024-07-09 05:22 | XMS_ITS | Clinical Summary ---
Author Organization [facility] Address [address] [place] [address] Care Team Providers Care Dredge Or Barge Shore Hand Name Role Phone Lanre Parekh Primary Care Provide r Eliana Quevedo MD Unavailable [phone] Allergies Active Allergy Reactions Criticality Noted Date Comments Metronidazole Other (See comments) Low 11/21/2017 Neuropathy Medications multivitamin capsuleIndicati ons:Vitamin Deficiency Prevention Take 1 capsule by mouth every morning Active L.acid/L.casei/ B.bif/B.raf/FOS (PROBIOTIC BLEND ORAL)Indication s:gut health Take 1 tablet by mouth every morning Active turmeric, bulk, 100 % powderIndicatio ns:supplement Take 1,500 mg by mouth every morning Active sildenafiL (VIAGRA) 100 mg tabletIndicatio ns:Erectile dysfunction, unspecified erectile dysfunction type Take 1/2 or 1 tablet ONE hour prior to activity on an empty stomach daily PRN 6 tablet 11 2 Active Additional Information Patient taking differently: 100 mg oral As needed, erectile dysfunction, Take 1/2 or 1 tablet ONE hour prior to activity on an empty stomach daily PRN, Informant: Self, Reported on 07/07/2024 cholecalciferol (VITAMIN D-3) 5,000 unit tabletIndicatio ns:Vitamin D Deficiency Take 1 tablet (5,000 Units total) by mouth every morning Active folic acid (FOLVITE) 1 mg tabletIndicatio ns:Crohn's disease of both small and large intestine with intestinal obstruction (HCC) TAKE 1 TABLET BY MOUTH EVERY DAY 90 tablet 3 4 Active Additional Information Patient taking differently:1,000 mcg oralEvery morning, Indications: Folate Deficiency, Informant: Self, Reported on 07/07/2024 colestipoL (COLESTID) 1 gram tabletIndicatio ns:Diarrhea, unspecified type Take 1 tablet (1 g total) by mouth 4 (four) times a day as needed (loose stools) 120 tablet 11 4 Active Additional Information Patient taking differently:1 g oralEvery morning, Informant: Self, Reported on 07/07/2024 balsalazide (COLAZAL) 750 mg capsuleIndicati ons:Ulcerative Colitis TAKE 2 CAPSULES (1,500 MG TOTAL) BY MOUTH 3 (THREE) TIMES A DAY 540 capsule 1 4 Active Additional Information Patient taking differently:1,500 mg oralEvery morning, Indications: Ulcerative Colitis, Informant: Self, Reported on 07/07/2024 mercaptopurine (PURINETHOL) 50 mg tabletIndicatio ns:Crohn's disease of both small and large intestine with intestinal obstruction (HCC) TAKE 1 TAB BY MOUTH DAILY SAFETY LABS REQUIRED EVERY 3 MONTHS FOR MED REFILLS 90 tablet 4 Active Additional Information Patient taking differently: 50 mg oral Every morning, Indications: Crohn's Disease, Informant: Self, Reported on 07/07/2024 allopurinoL (ZYLOPRIM) 100 mg tabletIndicatio ns:Crohn's disease of both small and large intestine with intestinal obstruction (HCC) TAKE 1 TABLET BY MOUTH EVERY DAY 90 tablet 1 4 Active Additional Information Patient taking differently:100 mg oralEvery morning, Indications: crohns, Informant: Self, Reported on 07/07/2024 adalimumab-adaz 40 mg/0.4 mL pen injectorIndicat ions:Crohn's Disease Inject 40 mg under the skin once a week Takes on Fridays 1.6 mL 2 4 Active acetaminophen 500 mg capsuleIndicati ons:Pain Take 2 capsules (1,000 mg total) by mouth every 6 (six) hours as needed for pain Use first for management of pain 5 Active cyclobenzaprine (FLEXERIL) 10 mg tablet Take 1 tablet (10 mg total) by mouth 3 (three) times a day as needed for muscle spasms 30 tablet 5 Active docusate sodium (COLACE) 100 mg capsuleIndicati ons:constipatio n Take 1 capsule (100 mg total) by mouth 2 (two) times a day 30 capsule 5 Active oxyCODONE (ROXICODONE) 5 mg immediate release tabletIndicatio ns:Pain Take 1 tablet (5 mg total) by mouth every 4 (four) hours as needed for pain for up to 10 doses 10 tablet 5 Active ergocalciferol (VITAMIN D) 50,000 unit capsule TAKE ONE CAPSULE BY MOUTH EVERY 14 DAYS 25 capsule 3 2 024 Discontin ued(Thera py completed ) celecoxib (CeleBREX) 100 mg capsule Take 1 capsule (100 mg total) by mouth daily for 14 days 14 capsule 3 024 Discontin ued(Thera py completed ) adalimumab-adaz 40 mg/0.4 mL pen injector INJECT 1 PEN UNDER THE SKIN EVERY 7 DAYS 1.6 mL 2 4 024 Discontin ued(Reord er) acetaminophen (TYLENOL) 500 mg tablet Take 1 tablet (500 mg total) by mouth every 6 (six) hours as needed for pain or headaches 025 Discontin ued(Stop Taking at Discharge ) Active Problems Problem Noted Date Diagnosed Date Incisional hernia, incarcerated 04/11/2024 Incarcerated incisional hernia 03/26/2024 High risk medications (not anticoagulants) long- term use 12/07/2023 Overview (12/10/2023): Currently taking Humira 40 mg SQ every week with 6-MP. Adalimumab level in 2020 was 9.1. Thiopurine metabolites drawn in July 2022 was low. Assessment & Plan (12/10/2023 2:20 PM CDT): Currently taking Humira 40 mg SQ every [...] but are not limited to the following: infusion reactions including anaphylaxis; bacterial, viral and fungal infections; [...] with any questions regarding new symptom development. Health care maintenance 12/07/2023 Overview (12/10/2023): Vaccinations Pneumovax-23: 2022 Prevnar-20: 01/25/2017 Flu: 2022 COVID: deferred Shingrix: discussed Tdap: 02/09/2014 RSV: --- HPV: --- Skin checks: yearly Eye exams: yearly DEXA Scan: 06/04/2023 Assessment & Plan (12/10/2023 2:19 PM CDT): Recommendations: Continue yearly skin checks and eye exams. 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 Pending follow-up blood culture results Stool testing sent in ER---pending follow-up Gastroenterology consultation notified in ER Status post steroid x1 History of Crohn's disease Continuation of other Crohn's medications per GI recommendation Acute kidney injury 11/03/2022 Assessment & Plan (11/03/2022 2:10 AM CDT): Mild to moderate rise in BUN and creatinine levels from baseline noted IV fluid Pending re-evaluation of BUN and creatinine levels with a.m. 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 We would recommend the patient increase the Colestid 2 tablets in the morning and continue the 1 Imodium. 2. Patient is also encouraged to use the Levsin as needed. 3. He was educated on how he can escalate his Colestid and Imodium further if he develops worsening diarrhea Assessment & Plan (02/11/2018 9:09 AM CDT): 1. Please offer stool sample to rule out infectious cause of diarrhea 2. Try Benefiber Fiber supplement to thicken stool 3. If Benefiber sufficient can take half tablet of Imodium as needed for diarrhea 4. Take 1 tablet of Colestid before fatty meals to reduce burning diarrhea. Can increase this dose to up to 4 tablets per meal if needed Osteoporosis 12/07/2017 Assessment & Plan (02/11/2018 9:07 AM CDT): Please follow Dr. Mckeon's instructions regarding calcium supplementation (notation for 24hr urine calcium provided to patient). Likely on too much calcium supplementation between his multivitamin and calcium supplements.This can contribute to kidney stones especially in the context of ileal Crohn's disease. Assessment & Plan (12/07/2017 10:50 AM CDT): We will reprint his labs from Dr. Mckeon. He can get the Vitamin D today and flower buncher or picker the container for the 24hr urine. He should generate the sample in the 24hrs before he submits it to the lab so there is minimal bacterial interference Iritis 12/04/2017 Crohn's disease of both small and large intestin e 01/25/2017 Overview (12/10/2023): Year of diagnosis: 2004. Year symptoms began: 2004. Phenotype: Stricturing (B2) without perianal disease. Distribution: ileocolonic (L3) without upper GI disease (L4). Extraintestinal manifestations: Iritis, osteoporosis, vitamin-D deficiency. Complications: none. Prior treatments: prednisone for at least 2 continuous years, flagyl, Asacol, Azathioprine ([id number]), Remicade ([id number], switched for insurance purposes), Humira ([id number], 6-month insurance interruption, re-initiation 10/2016, with dose escalated to weekly based on low levels and low antibodies), methotrexate add to Humira to reduce risk of antibody formation. dalimumab every 2 weeks (level 11) (stopped d/t insurance coverage) Current treatment: Hyrimoz every 2 weeks and 6MP 75 mg daily + allopurinol (6TG 331); balsalazide; colestipol Prior surgeries: Primarily involving the ileum with some concern for fistulizing disease though no evidence of fistula penetrating colon lumen during surgery in 2018. Ileocecectomy on 01/11/2018 with approximately 13 cm of terminal ileum removed and 8 cm of colon. Endoscopies: Colonoscopy on 08/2019 apthous ulcerations in neoterminal ileum. Imaging: Postoperative imaging consistent with moderate-sized hiatal hernia soft tissue stranding and enlarged lymph nodes mucosal enhancement and long segment of the terminal ileum and sigmoid favoring postoperative changes plus active Crohn's. Assessment & Plan (12/10/2023 2:19 PM CDT): Dx in 2005. Currently doing well on Hyrimoz 40mg weekly, [...] office in six months, sooner if needed. Assessment & Plan (08/19/2020 10:41 AM CORE MAN): Remains in clinical remission but also felt at his last colon that showed mild endoscopic recurrence. His 6MP has now been optimized. We will take another look. If he continues to have disease we will have to consider switching biologics. -Colonoscopy scheduled for 10/01/2020 -Recommended signing up for covid vaccine -Follows with endocrine for low BMD Assessment & Plan (03/16/2018 11:39 AM CDT): 1. Patient had some mild anticipation of [...] to assess his anastomosis in early 2018 Assessment & Plan (02/11/2018 9:13 AM CDT): 1. Continue Humira and methotrexate 2. Consider rechecking his Humira levels after he has had several more doses as he may be losing response to this therapy ( he has not yet been treated with Cimzia or Stelara) 3. Plan for repeat colonoscopy in 3-6 months 4. He is up-to-date with vaccines. His likely candidate for Shigrix once this becomes more available Assessment & Plan (12/07/2017 10:48 AM CDT): Planning for surgery to address stricture and fistula with Dr. Portillo in December. Try to procedure at the end of his Humira interval. He can also hold his Humira for 1 week after the procedure for wound healing. He should not need to hold the methotrexate Continue current meds. Will need repeat colonoscopy 3-6 months after surgery to assess for disease recurrence History of high risk medication treatment 2016 Overview (12/04/2017): Adequate Humira levels with no antibodies once dose increased to weekly and MTX added Assessment & Plan (12/06/2017 9:29 AM CDT): Continue routine laboratory monitoring Up to date with vaccinations. Pneumovax booster due 05/2022 Following with bone health for low bone mass Acute postoperative pain Generalized abdominal pain Resolved Problems Problem Noted Date Diagnosed Date Resolved Date Crohn's disease with complication 12/20/2017 06/18/2024 Overview (12/20/2017): Added automatically from request for surgery [id number] Encounters Date Type Department Care Team Description 07/07/2024 7:51 AM CORE MAN Anesthesia Event [facility] [address] [place] [address] Paul Macedo MD Rosen, Shayna, B.AMichelle 07/07/2024 7:30 AM CORE MAN - 07/07/2024 10:40 AM CORE MAN Surgery [facility] [address] [place] [address] Venkata Lynch MD REPAIR INCISIONAL HERNIA 07/07/2024 5:36 AM CORE MAN - 07/08/2024 12:12 PM CORE MAN Hospital Encounter [facility] [address] [facility] [place] [address] Venkata Lynch MD Incarcerated incisional hernia (Primary Dx) Discharge Disposition: Discharge to home or self care 07/04/2024 Telephone [facility] ([facility]) - [facility] Minimally Invasive Surgery [address] [facility] 12th Floor, [place] [address] Venkata Lynch MD Medical Question/Miscellaneo us; Surgery Confirmation 06/23/2024 Telephone [facility] [address] [facility] 12th [place] [address] Qi Maguire RN Med Management- Rejicttamela 06/20/2024 Telephone [facility] [address] [facility] 12th [place] [address] [place] [address] Karissa Guallpa, PLANNING FEEDER Prior Auth 06/20/2024 Telephone [facility]) - [facility] Minimally Invasive Surgery [address] [facility] [address], [place] [phone] Venkata Lynch MD Medical Question/Jadon kamara; Scheduling Appointments 06/20/2024 Telephone [facility]) - [facility] Minimally Invasive Surgery [address] [facility] [address] [facility] [address], [place] [phone] Elsa, Gaby Otoole RMLadan 04/17/2024 Telephone [facility]) - [facility] Minimally Invasive Surgery [address] [facility] [address], [place] [phone] Reyna Thomason, JOSH 04/16/2024 [facility]) - [facility] Minimally Invasive Surgery [address] [facility] [address], [place] [phone] Reyna Thomason, JOSH from Last 3 Months Immunizations Name Administration Dates Next Due DTaP 05/10/1990 Influenza, Quadrivalent, Mary l Culture-based MDCK, Preservative Free, Antibiotic Free, Intramuscular 04/20/2022,04/07/2021 Pneumococcal Conjugate PCV 13 01/25/2017 Pneumococcal Polysaccharide PPV23 10/26/2022, Tdap 02/09/2014 Surgical History Surgery Date Site/Laterality Comments VASECTOMY 07/02/2017 - 07/01/2018 OTHER SURGICAL HISTORY 12/30/2017 - 01/29/2018 ileocecal resection COLONOSCOPY multiple Medical History Medical History Date Comments Crohn's disease (CMS/HCC) (HCC) 2004 GERD (gastroesophageal reflux disease) Iritis Anemia Allergic rhinitis JALYN on CPAP Family History Medical History Relation Name Comments Hypertension Father Family history of hypertension - (Added by TW Conv) Hypertension Mother Family history of hypertension - (Added by TW Conv) Kidney failure Mother Family histor y of renal failure - (Added by TW Conv) Ulcerative colitis Mother's Sister Hip fracture Neg Hx Malig Hyperthermia Neg Hx Osteoporosis Neg Hx Pseudochol deficiency Neg Hx Relation Name Status Comments Father Mother Mother's Sister Social History Tobacco Use Types Packs/Day Years [...] often do you attend chur ch or spiritism services? 1 to 4 times per year 11/03/2022 Do you belong to any clubs o r organizations such as jehovah's witness groups, unions, fraternal or athletic groups, or school groups? No 11/03/2022 How often do you attend meet ings of the clubs or organizations you belong to? Never 11/03/2022 Are you , , di vorced, , never , or living with a partner? 11/03/2022 AUDIT-C Answer Date Recorded Q1: How often do you have a drink containing alcohol? 4 or more times a week 07/07/2024 Q2: How many drinks containi ng alcohol do you have on a typical day when you are drinking? 1 or 2 Q3: How often do you have si x or more drinks on one occasion? Never 07/07/2024 Overall Financial Resource Strain (CARDIA) Answe r [...] place to sleep or slept in a assisted (including now)? No 11/03/2022 Personal Safety Answer Date Recorded Have you ever been in or are you currently in a harmful physical or emotional relationship or is someone making you feel afraid or unsafe? Denies 07/07/2024 Sex and Gender Information Value Date Recorded Sex Assigned at Not on file Legal Sex Male 11:11 PM CORE MAN Gender Identity Not on file Sexual Orientation Not on file Obstetrics History Last Filed Vital Signs Vital Sign Reading Time Taken Comments Blood Pressure 123/84 07/08/2024 8:38 AM CORE MAN Pulse 69 07/08/2024 8:38 AM CORE MAN Temperature 36.7 ??C (98.1 ??F) 07/08/2024 8:38 AM CS T Respiratory Rate 18 07/08/2024 8:38 AM CORE MAN Oxygen Saturation 100% 07/08/2024 8:38 AM CORE MAN Inhaled Oxygen Concentration - - Weight 88.5 kg (195 lb) 07/07/2024 11:45 AM CORE MAN Height 172.7 cm (5' 8 ) 07/07/2024 11:45 AM CORE MAN Body Mass Index 29.65 07/07/2024 11:45 AM CORE MAN Plan of Treatment Health Maintenance Due Date Last Done Comments Depression Screening 1989 Hepatitis C Screening 1989 Varicella Vaccines (1 of 2 - 13+ 2-dose series) 2002 Regular Well Visit/Exam 18-64 11/02/2007 Zoster Vaccine (1 of 2) 2008 Covid-19 Vaccine (3 - Pfizer risk series) 11/25/2020 10/28/2020, 10/04/2020 Influenza Vaccine (#1) 2024 2, 04/07/2021 DTaP/Tdap/Td Vaccine (4 - Td or Tdap) 04/04/2034 04/04/2024, 02/09/2014, 05/10/1990 Pneumococcal vaccine <65 (4 of 4 - PPSV23 or PCV20) 2054 10/26/2022, 05/17/2017, 01/25/2017 Hepatitis B Screening Completed 05/30/2023 HPV Vaccines Aged Out No longer eligi ble based on patient's age to complete this topic Medical Devices Implanted Type Area Remote Encoding Center Manager Device Identifier Shelf Expiration Date Model / Serial / Lot Mesh Suture Inc Mesh Surgical Tissue Synthetic Duramesh 3.9mm Polypropylene Msi-300 - [id number] Implanted:Qty: 1 on 07/07/2024 by Venkata Lynch MD at [facility] Mesh N/A: Abdomen [employer] [id number] 03/06/2028 MSI-300 / / [id number] Procedures Procedure Name Priority Date/Time Associated Diagnosis Comments EGFR Routine 07/07/2024 10:17 PM CORE MAN MAGNESIUM Routine 07/07/2024 10:17 PM CORE MAN BASIC METABOLIC PANEL Routine 07/07/2024 10:17 PM CORE MAN CBC WITHOUT DIFFERENTIAL Routine 07/07/2024 10:17 PM CORE MAN MI AN PROCEDURE PLACEHOLDER Routine 07/07/2024 8:11 AM CORE MAN MI AN ELECTIVE ENDOTRACHEAL AIRWAY Routine 07/07/2024 8:11 AM CORE MAN REVISION SCAR - ABDOMINAL 07/07/2024 7:56 AM CORE MAN Incisional hernia, incarcerated Special Needs Mesh OMENTECTOMY 07/07/2024 7:56 AM CORE MAN Incisional hernia, incarcerated Special Needs Mesh REPAIR INCISIONAL HERNIA 07/07/2024 7:56 AM CORE MAN Incisional hernia, incarcerated Special Needs Mesh TB TEST, QUANTIFERON GOLD Routine 06/26/2024 7:51 AM CORE MAN Crohn's disease of both small and large intestine with intestinal obstruction (HCC) High risk medications (not anticoagulants) long-term use Health care maintenance CRP (ACUTE PHASE) Routine 06/26/2024 7:5 1 AM CORE MAN Crohn's disease of both small and large intestine with intestinal obstruction (HCC) High risk medications (not anticoagulants) long-term use Health care maintenance COMPREHENSIVE METABOLIC PANEL Routine 06/26/2024 7:51 AM CORE MAN Crohn's disease of both small and large intestine with intestinal obstruction (HCC) High risk medications (not anticoagulants) long-term use Health care maintenance CBC WITH AUTO DIFFERENTIAL Routine 06/26/2024 7:51 AM CORE MAN Crohn's disease of both small and large intestine with intestinal obstruction (HCC) High risk medications (not anticoagulants) long-term use Health care maintenance from Last 3 Months Results * eGFR (07/07/2024 10:17 PM CORE MAN) eGFR >90 >=60 mL/min/1. 73 m2 Comment: Interpretive Data Reference Interval Normal ?>/= [...] of Race in Diagnosing Kidney Disease, JASN 202). The CKD-EPI equation should not be used for patients with unstable renal function and has not been validated in children and those over 70. Current interpretive data was last reviewed 2021. Blood 07/07/2024 10:1 7 PM CORE MAN 07/08/2024 12:30 AM CORE MAN Valdo Razo MD LAB BLOOD ORDERABLES Fin al Result Performing Organization Address [facility] Co de Phone Number [facility] [place] [place] [address] * (ABNORMAL) CBC without differential (07/07/2024 10:17 PM CORE MAN) WBC 11.0(H) 3.8 - 9.9 K/cumm Hgb 12.4(L) 13.0 - 17.5 g/dL [facility] Hct 36.0(L) 38.9 - 50.3 % [facility] Plt 251 150 - 400 K/cumm [facility] MPV 10.8 9.1 - 12.3 fL [facility] RBC 3.60(L) 4.30 - 5.80 M/cumm [facility] MCV 100.0(H) 81.3 - 96.4 fL [facility] MCH 34.4(H) 27.1 - 33.3 pg [facility] MCHC 34.4 32.3 - 35.7 g/dL [facility] RDW CV 13.1 11.1 - 14.9 % [facility] RDW SD 48.0 35.7 - 48.1 fL [facility] NRBC abs 0.00 0.00 - 0.01 K/cumm [facility] Blood 07/07/2024 10:1 7 PM CORE MAN 07/08/2024 12:30 AM CORE MAN Valdo Razo MD LAB BLOOD ORDERABLES Fin al Result Performing Organization Address City/[facility]/ZIP Co de Phone Number [facility] [place] [address] * Magnesium (07/07/2024 10:17 PM CORE MAN) Magnesium 2.0 1.4 - 2.5 mg/dL Blood 07/07/2024 10:1 7 PM CORE MAN 07/08/2024 12:30 AM CORE MAN Valdo Razo MD LAB BLOOD ORDERABLES Fin al Result Performing Organization Address City/[facility] Co de Phone Number [facility] Department [place] [address] * Basic metabolic panel (07/07/2024 10:17 PM CORE MAN) Pathologist [facility] Sodium 135 135 - 145 mmol/L Potassium, pl 3.9 3.3 - 4.9 mmol/L [facility] Chloride 101 97 - 110 mmol/L [facility] CO2 23 22 - 32 mmol/L [facility] Anion gap 11 2 - 15 mmol/L [facility] BUN 9 6 - 25 mg/dL [facility] Creatinine 0.81 0.80 - 1.30 mg/dL [facility] Glucose 108 70 - 199 mg/dL [facility] Comment: Interpretive Data Fasting glucose >/= 126 [...] classification and Diagnosis of Diabetes Diabetes Care 2021; 46: S19-S40. Current interpretive data was last revised 2022. Calcium 8.5 8.5 - 10.3 mg/dL [facility] Blood 07/07/2024 10:1 7 PM CORE MAN 07/08/2024 12:30 AM CORE MAN Valdo Razo MD LAB BLOOD ORDERABLES Fin al Result Performing Organization Address [facility] de Phone Number [facility] Department [place] [address] * MI AN ELECTIVE ENDOTRACHEAL AIRWAY, MI AN PROCEDURE PLACEHOLDER (07/07/2024 8:11 AM CORE MAN) Narrative Franck Ugalde CRNA - 07/07/2024 8:11 AM CORE MAN Franck Ugalde CRNA ? 07/07/2024 ??8:13 AM Airway Patient location: OR Urgency: elective Indications for airway management: anesthesia Difficult airway: no Staff: Supervising provider: Paul Macedo MD Placed by: SECURITIES DEALER: Franck Ugalde CRNA Emergent airway documentation: Risks and benefits discussed: yes Consent obtained: yes Consent given by: patient Airway prep: Preoxygenated: yes Patient position: sniffing Mask difficulty assessment: 1 - vent by mask Spontaneous ventilation during airway: absent Sedation level during airway: GA Final airway details: Final airway type: endotracheal airway Tube type: ETT ETT size: 8.0 mm Cuffed: yes Technique used for successful ETT placement: video laryngoscopy Insertion site: oral Blade type: Epifanio Video blade type: Steinberg Blade size: 4 Cormack-Lehane (video): grade I - full view of glottis Initial cuff pressure: 25 cm H2O Cuff volume: 8 mL Cuff inflated with: air ETT to lips: 24 cm Placement verified by: auscultation and CO2 detection Airway secured with: silk tape Number of attempts: 1 Planned trial extubation: yes Paul Macedo MD ANESTHESIA ORDERABL ES Final Result * TB test, quantiferon gold (06/26/2024 7:51 AM CORE MAN) [facility] QuantiFERON(R)-T B Gold Plus, 1 Tube NEGATIVE NEGATIVE [facility] Comment: Negative test result. M. tuberculosis complex infection unlikely. NIL 0.02 IU/mL [facility] MITOGEN-NIL 9.71 IU/mL [facility] TB1-NIL 0.00 IU/mL [facility] TB2-NIL <0.00 IU/mL [facility] Comment: The Nil tube value reflects the background interferon gamma immune response of the patient's blood sample. This value has been subtracted from the patient's displayed TB and Mitogen results. Lower than expected results with the Mitogen tube prevent false-negative Quantiferon readings by detecting a patient with a potential immune suppressive condition and/or suboptimal pre-analytical specimen handling. The TB1 Antigen tube is coated with the M. tuberculosis-specific antigens designed to elicit responses from TB antigen primed CD4+ helper T-lymphocytes. The TB2 Antigen tube is coated with the M. tuberculosis-specific antigens designed to elicit responses from TB antigen primed CD4+ helper and CD8+ cytotoxic T-lymphocytes. For additional information, please refer to [email or web address]/[email or web address] (This link is being provided for informational/ educational purposes only.) Blood 06/26/2024 7:51 AM CORE MAN 06/26/2024 7:51 AM CORE MAN us Jackeline Lozano MD LAB BLOOD ORDERABLES F inal Result [facility] [address] [place] [address] * (ABNORMAL) CBC with auto differential (06/26/2024 7:51 AM CORE MAN) Pathologist [facility] WBC 6.4 3.8 - 10.8 Thousand/u L [facility] RBC, POC 4.18(L) 4.20 - 5.80 Million/uL [facility] Hgb 14.3 13.2 - 17.1 g/dL [facility] Hct 42.6 38.5 - 50.0 % [facility] MCV 101.9(H) 80.0 - 100.0 fL [facility] MCH 34.2(H) 27.0 - 33.0 pg [facility] MCHC 33.6 32.0 - 36.0 g/dL [facility] Comment: For adults, a slight decrease in the calculated MCHC value (in the range of 30 to 32 g/dL) is most likely not clinically significant; however, it should be interpreted with caution in correlation with other red cell parameters and the patient's clinical condition. Rdw 13.1 11.0 - 15.0 % [facility] Platelets 229 140 - 400 Thousand/u L [facility] MPV 11.3 7.5 - 12.5 fL [facility] Neutrophils, abs 3,629 1,500 - 7,800 cells/uL [facility] Lymphocytes, abs 2,240 850 - 3,900 cells/uL [facility] Monocyte abs 442 200 - 950 cells/uL [facility] Eosinophils, abs 58 15 - 500 cells/uL [facility] Basophils, abs 32 0 - 200 cells/uL [facility] Neutrophils 56.7 % [facility] Lymphocyte pct 35.0 % [facility] Monocytes 6.9 % [facility] Eosinophils 0.9 % [facility] Basophils 0.5 % [facility] Blood 06/26/2024 7:51 AM CORE MAN 06/26/2024 7:51 AM CORE MAN Jackeline Lozano MD LAB BLOOD ORDERABLES F inal Result Performing Organization Address City/[facility]/ZIP Co de Phone Number [email or web address] [place] [address] * CRP (acute phase) (06/26/2024 7:51 AM CORE MAN) Pathologist [facility] C-RP <3.0 <8.0 mg/L [facility] Blood 06/26/2024 7:51 AM CORE MAN 06/26/2024 7:51 AM CORE MAN Jackeline Lozano MD LAB BLOOD ORDERABLES F inal Result Performing Organization Address City/[facility]/ZIP Co de Phone Number [email or web address] [address] [place] [address] * (ABNORMAL) Comprehensive metabolic panel (06/26/2024 7:51 AM CORE MAN) Pathologist [facility] Glucose 104(H) 65 - 99 mg/dL [facility] Comment: ? Fasting reference interval For someone without known diabetes, a glucose value between 100 and 125 mg/dL is consistent with prediabetes and should be confirmed with a follow-up test. BUN 15 7 - 25 mg/dL [facility] Creatinine 1.04 0.60 - 1.26 mg/dL [facility] eGFR 97 > OR = 60 mL/min/1.7 3m2 [facility] BUN/creat ratio SEE NOTE: (calc) [facility] Comment: ?? Not Reported: BUN and Creatinine are within ?? reference range. ? Sodium 136 135 - 146 mmol/L [facility] Potassium, pl 4.2 3.5 - 5.3 mmol/L [facility] Chloride 100 98 - 110 mmol/L [facility] CO2 26 20 - 32 mmol/L [facility] Calcium 9.5 8.6 - 10.3 mg/dL [facility] Protein, sr 8.1 6.1 - 8.1 g/dL [facility] Albumin 4.8 3.6 - 5.1 g/dL [facility] GLOBULIN 3.3 1.9 - 3.7 g/dL (calc) [facility] Alb/glob ratio 1.5 1.0 - 2.5 (calc) [facility] Bilirubin, total 0.4 0.2 - 1.2 mg/dL [facility] Alk phos 71 36 - 130 U/L [facility] AST 19 10 - 40 U/L [facility] ALT (SGPT) 25 9 - 46 U/L [facility] Blood 06/26/2024 7:51 AM CORE MAN 06/26/2024 7:51 AM CORE MAN us Jackeline Lozano MD LAB BLOOD ORDERABLES F inal Result [facility] [address] [place] [address] from Last 3 [place] [address] [facility] Advance Directives For more information, please contact: [phone] * Full Code (Latest Code Status on File) Date Activated Date Inactivated Comments 07/07/2024 11:25 AM 07/08/2024 4:23 PM * Full Code Date Activated Date Inactivated Comments 11/05/2022 7:58 AM 11/07/2022 6:55 PM * Full Code Date Activated Date Inactivated Comments 11/02/2022 11:49 PM 11/05/2022 7:58 AM * LIMITED - No CPR Date Activated Date Inactivated Comments 11/02/2022 11:29 PM 11/02/2022 11:49 PM Question Answer Comments Provide aggressive medical m anagement before a full cardiopulmonary arrest occurs. Use antibiotics, IV Fluids, and medical treatment unless specifically selected below: No intubation * Full Code Date Activated Date Inactivated Comments 01/23/2022 10:06 AM 01/23/2022 4:18 PM Care Teams Dredge Or Barge Shore Hand Relationship Specialty Start Date End Date Lanre Parekh DO PCP - General Family Medicine 01/23/19 Eliana Quevedo MD [address] [facility] [address] [place] [address] Referring Physician Gastroenterology 11/07/22
--- OUTSIDE RECORDS SUMMARY | 2024-07-09 05:22 | XMS_ITS | Encounter Summary ---
Author Organization [facility] Address [address] [place] [address] Phone Care Team Providers Care Senior Assistant Manager Name Role Phone Lanre Parekh Primary Care Provide r Eliana Quevedo MD Unavailable [phone] Encounter Details Date Type Department Care Team (Late st Contact Info) Description 09/27/2023 Telephone [facility] Gastroenterology [address] [facility] 12th [place] [address] [place] [address] Karissa Guallpa, FOOT WORKER Social History Tobacco Use Types Packs/Day Years [...] often do you attend chur ch or congregation services? 1 to 4 times per year 11/03/2022 Do you belong to any clubs o r organizations such as baptism groups, unions, fraternal or athletic groups, or [...] on file Legal Sex Male 11:11 PM FUSE COILER Gender Identity Not on file Sexual Orientation Not on file documented as of this encounter Ordered Prescriptions Prescription Sig Dispense Quantity Refills Last Filled Start Date End Date adalimumab-adaz (Hyrimoz,CF, Pen) 40 mg/0.4 mL pen injectorIndication s:Crohn's Disease Inject 40 mg under the skin every 7 days 1.6 mL 2 09/27/2023 12/04/2023 documented in this encounter Miscellaneous Notes * Telephone Encounter - Qi Maguire RN - 09/27/2023 2:15 PM CDT Rx for Hyrimoz send to [facility] specialty. Pt updates via [employer]. * Telephone Encounter - Karissa Guallpa CMA - 09/27/2023 11:16 AM CDT Received call from [facility] Specialty pharmacy requesting prescription for Hyrimoz due to the preferred formulary change. Insurance will no longer cover Humira. documented in this encounter Plan of Treatment Not on file documented as of this encounter Visit Diagnoses Not on filedocumented in this encounter Care Teams Senior Assistant Manager Relationship Specialty Start Date End Date Lanre Parekh DO PCP - General Family Medicine 01/23/19 Eliana Quevedo MD [address] [place] [address] Referring Physician Gastroenterology 11/07/22 documented as of this encounter
--- OUTSIDE RECORDS SUMMARY | 2024-07-09 05:22 | XMS_ITS | Referral Summary ---
Author Organization [facility] Address [address] [place] [address] Care Team Providers Care Order Checker Packer Processer Name Role Phone Lanre Parekh Primary Care Provide r Eliana Quevedo MD Unavailable [phone] Encounters Date Type Department Care Team Description 07/07/2024 5:36 AM MANAGER OF CLINICAL - 07/08/2024 12:12 PM MANAGER OF CLINICAL Hospital Encounter [facility] [address] [place] [address] Venkata Lynch MD Incarcerated incisional hernia (Primary Dx) Discharge Disposition: Discharge to home or self care 07/07/2024 7:30 AM MANAGER OF CLINICAL - 07/07/2024 10:40 AM MANAGER OF CLINICAL Surgery [facility] Operating Room [address] [place] [address] Venkata Lynch MD REPAIR INCISIONAL HERNIA 07/07/2024 7:51 AM MANAGER OF CLINICAL Anesthesia Event [facility] Operating [address] [place] [address] Paul Macedo MD Rosen, Shayna, B.A. 07/04/2024 Telephone [facility]) - [facility] Minimally Invasive Surgery [address] [facility] [address], [place] [address] Venkata Lynch MD Medical Question/Miscellaneo us; Surgery Confirmation 06/23/2024 Telephone [facility] Gastroenterology [address] [facility] Medicine 12th [place] [address] [place] [address] Qi Maguire, JOSH Med Management- [place] 06/20/2024 Telephone [facility] Gastroenterology [address] [facility] Medicine 12th [place] [address] [place] [address] Karissa Guallpa, ASSOCIATE FINANCIAL ADVISOR Prior Auth 06/20/2024 Telephone [facility]) - [facility] Minimally Invasive Surgery [address] [address]th [address], [place] [address] Venkata Lynch MD Medical Question/Alicecellesa kamara; Scheduling Appointments 06/20/2024 [facility]) - [facility] Minimally Invasive Surgery [address], [place] [address] Gaby Hunter RMA 04/17/2024 Telephone [facility]) [facility] Minimally Invasive Surgery [address], [place] [address] Reyna Thomason, JOSH 04/16/2024 [facility]) [facility] Minimally Invasive Surgery [address] [address], [place] [address] Reyna Thomason, RN from Last 3 Months Allergies Active Allergy Reactions Criticality Noted Date [...] can get the Vitamin D today and pick up operator the container for the 24hr urine. He [...] least 2 continuous years, flagyl, Asacol, Azathioprine (1422-3265), Remicade (5056-4310, switched for insurance purposes), Humira (9233-9540, 6-month insurance interruption, re-initiation 10/2016, with dose [...] Plan (12/10/2023 2:19 PM CDT): Dx in 2004. Currently doing well on [...] needed. Assessment & Plan (08/19/2020 10:41 AM MANAGER OF CLINICAL): Remains in clinical remission but also felt [...] (12/20/2017): Added automatically from request for surgery [id number] Immunizations Name Administration Dates Next Due DTaP 05/10/1990 Influenza, Quadrivalent, Mary l Culture-based MDCK, Preservative Free, Antibiotic Free, Intramuscular 04/20/2022,04/07/2021 Pneumococcal Conjugate PCV 13 01/25/2017 Pneumococcal Polysaccharide PPV23 10/26/2022, Tdap 02/09/2014 Social History Tobacco Use Types Packs/Day Years [...] How often do you attend chur or yazdanism services? 1 to 4 times per year [...] place to sleep or slept in a jail (including now)? No 11/03/2022 Personal Safety Answer Date Recorded Have you ever been in or are you currently in a harmful physical or emotional relationship or is someone making you feel afraid or unsafe? Denies 07/07/2024 Sex and Gender Information Value Date Recorded Sex Assigned at Not on file Legal Sex Male 11:11 PM MANAGER OF CLINICAL Gender Identity Not on file Sexual Orientation Not on file Last Filed Vital Signs Vital Sign Reading Time Taken Comments Blood Pressure 123/84 07/08/2024 8:38 AM MANAGER OF CLINICAL Pulse 69 07/08/2024 8:38 AM MANAGER OF CLINICAL Temperature 36.7 ??C (98.1 ??F) 07/08/2024 8:38 AM CS T Respiratory Rate 18 07/08/2024 8:38 AM MANAGER OF CLINICAL Oxygen Saturation 100% 07/08/2024 8:38 AM MANAGER OF CLINICAL Inhaled Oxygen Concentration - - Weight 88.5 kg (195 lb) 07/07/2024 11:45 AM MANAGER OF CLINICAL Height 172.7 cm (5' 8 ) 07/07/2024 11:45 AM MANAGER OF CLINICAL Body Mass Index 29.65 07/07/2024 11:45 AM MANAGER OF CLINICAL Plan of Treatment Not on file Medical Devices Implanted Type Area Domain Architect Device Identifier Shelf Expiration Date Model / Serial / Lot Mesh Suture Inc Mesh Surgical Tissue Synthetic Duramesh 3.9mm Polypropylene Msi-300 - [id number] Implanted:Qty: 1 on 07/07/2024 by Venkata Lynch MD at [facility] Mesh N/A: Abdomen [employer] [id number] 03/06/2028 MSI-300 / / [id number] Procedures Procedure Name Priority Date/Time Associated Diagnosis Comments EGFR Routine 07/07/2024 10:17 PM MANAGER OF CLINICAL MAGNESIUM Routine 07/07/2024 10:17 PM MANAGER OF CLINICAL BASIC METABOLIC PANEL Routine 07/07/2024 10:17 PM MANAGER OF CLINICAL CBC WITHOUT DIFFERENTIAL Routine 07/07/2024 10:17 PM MANAGER OF CLINICAL SD AN PROCEDURE PLACEHOLDER Routine 07/07/2024 8:11 AM MANAGER OF CLINICAL SD AN ELECTIVE ENDOTRACHEAL AIRWAY Routine 07/07/2024 8:11 AM MANAGER OF CLINICAL REVISION SCAR - ABDOMINAL 07/07/2024 7:56 AM MANAGER OF CLINICAL Incisional hernia, incarcerated Special Needs Mesh OMENTECTOMY 07/07/2024 7:56 AM MANAGER OF CLINICAL Incisional hernia, incarcerated Special Needs Mesh REPAIR INCISIONAL HERNIA 07/07/2024 7:56 AM MANAGER OF CLINICAL Incisional hernia, incarcerated Special Needs Mesh TB TEST, QUANTIFERON GOLD Routine 06/26/2024 7:51 AM MANAGER OF CLINICAL Crohn's disease of both small and large intestine with intestinal obstruction (HCC) High risk medications (not anticoagulants) long-term use Health care maintenance CRP (ACUTE PHASE) Routine 06/26/2024 7:5 1 AM MANAGER OF CLINICAL Crohn's disease of both small and large intestine with intestinal obstruction (HCC) High risk medications (not anticoagulants) long-term use Health care maintenance COMPREHENSIVE METABOLIC PANEL Routine 06/26/2024 7:51 AM MANAGER OF CLINICAL Crohn's disease of both small and large intestine with intestinal obstruction (HCC) High risk medications (not anticoagulants) long-term use Health care maintenance CBC WITH AUTO DIFFERENTIAL Routine 06/26/2024 7:51 AM MANAGER OF CLINICAL Crohn's disease of both small and large intestine with intestinal obstruction (HCC) High risk medications (not anticoagulants) long-term use Health care maintenance from Last 3 Months Results * eGFR (07/07/2024 10:17 PM MANAGER OF CLINICAL) eGFR >90 >=60 mL/min/1. 73 m2 Comment: [...] reviewed 2021. Blood 07/07/2024 10:1 7 PM MANAGER OF CLINICAL 07/08/2024 12:30 AM MANAGER OF CLINICAL Valdo Razo MD LAB BLOOD ORDERABLES Fin al Result [facility] [address] [facility] Department [place] [address] * (ABNORMAL) CBC without differential (07/07/2024 10:17 PM MANAGER OF CLINICAL) WBC 11.0(H) 3.8 - 9.9 K/cumm Hgb 12.4(L) 13.0 - 17.5 g/dL [facility] Hct 36.0(L) 38.9 - 50.3 % [facility] Plt 251 150 - 400 K/cumm [facility] MPV 10.8 9.1 - 12.3 fL [facility] RBC 3.60(L) 4.30 - 5.80 M/cumm [facility] MCV 100.0(H) 81.3 - 96.4 fL [facility] MCH 34.4(H) 27.1 - 33.3 pg [facility] MCHC 34.4 32.3 - 35.7 g/dL [facility] RDW CV 13.1 11.1 - 14.9 % [facility] RDW SD 48.0 35.7 - 48.1 fL [facility] NRBC abs 0.00 0.00 - 0.01 K/cumm [facility] Blood 07/07/2024 10:1 7 PM MANAGER OF CLINICAL 07/08/2024 12:30 AM MANAGER OF CLINICAL us Valdo Razo MD LAB BLOOD ORDERABLES Fin al Result Performing Organization Address City/[facility] Co de Phone Number [facility] [address] [facility] [place] [address] * Magnesium (07/07/2024 10:17 PM MANAGER OF CLINICAL) [facility] Magnesium 2.0 1.4 - 2.5 mg/dL Blood 07/07/2024 10:1 7 PM MANAGER OF CLINICAL 07/08/2024 12:30 AM MANAGER OF CLINICAL Valdo Razo MD LAB BLOOD ORDERABLES Fin al Result Performing Organization Address [facility]UST de Phone Number [facility] [place] [address] * Basic metabolic panel (07/07/2024 10:17 PM MANAGER OF CLINICAL) [facility] Sodium 135 135 - 145 mmol/L Potassium, pl 3.9 3.3 - 4.9 mmol/L [facility] Chloride 101 97 - 110 mmol/L [facility] CO2 23 22 - 32 mmol/L [facility] Anion gap 11 2 - 15 mmol/L [facility] BUN 9 6 - 25 mg/dL [facility] Creatinine 0.81 0.80 - 1.30 mg/dL [facility] Glucose 108 70 - 199 mg/dL [facility] Comment: Interpretive Data Fasting glucose >/= [...] 2022. Calcium 8.5 8.5 - 10.3 mg/dL [facility] Blood 07/07/2024 10:1 7 PM MANAGER OF CLINICAL 07/08/2024 12:30 AM MANAGER OF CLINICAL Valdo Razo MD LAB BLOOD ORDERABLES Fin al Result [facility] Department [place] [address] * SD AN ELECTIVE ENDOTRACHEAL AIRWAY, SD AN PROCEDURE PLACEHOLDER (07/07/2024 8:11 AM MANAGER OF CLINICAL) Narrative Franck Ugalde CRNA - 07/07/2024 8:11 AM MANAGER OF CLINICAL Franck Ugalde CRNA ? 07/07/2024 ??8:13 AM Airway Patient location: OR Urgency: elective Indications for airway management: anesthesia Difficult airway: no Staff: Supervising provider: Paul Macedo MD Placed by: SYSTEM OPERATOR: Franck Ugalde CRNA Emergent airway documentation: Risks [...] TB test, quantiferon gold (06/26/2024 7:51 AM MANAGER OF CLINICAL) QuantiFERON(R)-T B Gold Plus, 1 Tube NEGATIVE [...] T-lymphocytes. For additional information, please refer to https://education.Matter.io/faq/[email or web address] (This link is being provided for informational/ educational purposes only.) Blood 06/26/2024 7:51 AM MANAGER OF CLINICAL 06/26/2024 7:51 AM MANAGER OF CLINICAL us Jackeline Lozano MD LAB BLOOD ORDERABLES F inal Result [facility] [address] [place] [address] * (ABNORMAL) CBC with auto differential (06/26/2024 7:51 AM MANAGER OF CLINICAL) WBC 6.4 3.8 - 10.8 Thousand/u L [...] [facility] Blood 06/26/2024 7:51 AM MANAGER OF CLINICAL 06/26/2024 7:51 AM MANAGER OF CLINICAL Jackeline Lozano MD LAB BLOOD ORDERABLES F inal Result Performing Organization Address City/[facility]/ZIP Co de Phone Number [facility] [address] [place] [address] * CRP (acute phase) (06/26/2024 7:51 AM MANAGER OF CLINICAL) C-RP <3.0 <8.0 mg/L [facility] Blood 06/26/2024 7:51 AM MANAGER OF CLINICAL 06/26/2024 7:51 AM MANAGER OF CLINICAL Jackeline Lozano MD LAB BLOOD ORDERABLES F inal Result [facility] [address] [place] [address] * (ABNORMAL) Comprehensive metabolic panel (06/26/2024 7:51 AM MANAGER OF CLINICAL) [facility] Glucose 104(H) 65 - 99 mg/dL [facility] Comment: ? Fasting reference interval For someone without known diabetes, a glucose value between 100 and 125 mg/dL is consistent with prediabetes and should be confirmed with a follow-up test. BUN 15 7 - 25 mg/dL [facility] Creatinine 1.04 0.60 - 1.26 mg/dL [facility] eGFR 97 > OR = 60 mL/min/1.7 3m2 [facility] BUN/creat ratio SEE NOTE: (calc) [facility] Comment: ?? Not Reported: BUN and Creatinine are within ?? reference range. ? Sodium 136 135 - 146 mmol/L [facility] Potassium, pl 4.2 3.5 - 5.3 mmol/L [facility] Chloride 100 98 - 110 mmol/L [facility] CO2 26 20 - 32 mmol/L [facility] Calcium 9.5 8.6 - 10.3 mg/dL [facility] Protein, sr 8.1 6.1 - 8.1 g/dL [facility] Albumin 4.8 3.6 - 5.1 g/dL [facility] GLOBULIN 3.3 1.9 - 3.7 g/dL (calc) [facility] Alb/glob ratio 1.5 1.0 - 2.5 (calc) [facility] Bilirubin, total 0.4 0.2 - 1.2 mg/dL [facility] Alk phos 71 36 - 130 U/L [facility] AST 19 10 - 40 U/L [facility] ALT (SGPT) 25 9 - 46 U/L [facility] Blood 06/26/2024 7:51 AM MANAGER OF CLINICAL 06/26/2024 7:51 AM MANAGER OF CLINICAL Jackeline Lozano MD LAB BLOOD ORDERABLES F inal Result [facility] [address] [place] [address] from Last 3 Months Insurance ANTHEM ACCESS CHOICE ANTHEM ACCESS CHOICE ANTHEM ACCESS CHOICE Advance Directives For more information, please contact: [phone] * Full Code (Latest Code Status on [...] 10:06 AM 01/23/2022 4:18 PM Care Teams Order Checker Packer Processer Relationship Specialty Start Date End Date Lanre Parekh DO PCP - General Family Medicine 01/23/19 Eliana Quevedo MD [address] [place] [address] Referring Physician Gastroenterology 11/07/22
--- OUTSIDE RECORDS SUMMARY | 2024-07-09 05:22 | XMS_ITS | Encounter Summary ---
Author Organization [facility] Address [address] [place] [address] Phone Care Team Providers Care Senior It Architect Name Role Phone Lanre Parekh Primary Care Provide r Eliana Quevedo MD Unavailable [phone] Encounter Details Date Type Department Care Team (Late st Contact Info) Description 06/20/2024 Telephone [facility] Advanced Medicine ([facility]) - [facility] Minimally Invasive Surgery [address] [facility] Advanced Medicine 12th Floor, [place] [address] Gaby Hunter RMA Social History Tobacco Use Types Packs/Day Years [...] often do you attend chur ch or faith services? 1 to 4 times [...] place to sleep or slept in a intermediate (including now)? No 11/03/2022 Personal Safety Answer Date Recorded Have you ever been in or are you currently in a harmful physical or emotional relationship or is someone making you feel afraid or unsafe? Denies 11/02/2022 Sex and Gender Information Value Date Recorded Sex Assigned at Not on file Legal Sex Male 11:11 PM UNIVERSITY RELATIONS RECRUITER Gender Identity Not on file Sexual Orientation Not on file documented as of this encounter Miscellaneous Notes * Telephone Encounter - Gaby Hunter RMA - 06/20/2024 1:22 PM UNIVERSITY RELATIONS RECRUITER Date: 06/20/2024 Reason for Call: Insurance Issue Patient Provider: [facility] Information: Outcome/Plan: Called pt and advised that when running his insurance, we are getting a message that it is rejected. Advised pt to call his insurance company. He may have an updated member number or group number. Advised pt to call the office and let us know the updated information or he can also send a [employer] message. Pt agrees with and understands this plan. No other questions or issues. ERSITY RELATIONS RECRUITER documented in this encounter Plan of Treatment Not on file documented as of this encounter Visit Diagnoses Not on filedocumented in this encounter Care Teams Senior It Architect Relationship Specialty Start Date End Date Lanre Parekh DO PCP - General Family Medicine 01/23/19 Eliana Quevedo MD [address] [place] [address] Referring Physician Gastroenterology 11/07/22 documented as of this encounter
--- OUTSIDE RECORDS SUMMARY | 2024-07-09 05:22 | XMS_ITS | Encounter Summary ---
Author Organization [facility] Address [address] [facility] [place] [address] [place] [address] Phone Care Team Providers Care Certified Surgical Assistant Name Role Phone Lanre Parekh Primary Care Provide r Eliana Quevedo MD Unavailable [phone] Reason for Visit * Reason Onset Date Comments Medical Question/Miscellaneous 06/20/2024 Scheduling Appointments 06/20/2024 Encounter Details Date Type Department Care Team (Late st Contact Info) Description 06/20/2024 Telephone [facility] Advanced Medicine ([facility]) - [facility] Minimally Invasive Surgery [address] [facility] Advanced [facility] 12th Floor, [place] [address] Venkata Lynch MD [address] [facility] [phone] [place] [address] Medical Question/Miscellaneous; Scheduling Appointments Social History Tobacco Use Types Packs/Day Years [...] often do you attend chur ch or hoahaoism services? 1 to 4 times per year 11/03/2022 Do you belong to any clubs o r organizations such as scientologist groups, unions, fraternal or athletic groups, or [...] on file Legal Sex Male 11:11 PM DRY CLIPPER TENDER Gender Identity Not on file Sexual Orientation Not on file documented as of this encounter Miscellaneous Notes * Telephone Encounter - Allyson Greer RMA - 06/20/2024 3:43 PM DRY CLIPPER TENDER Per Pre-Determination, The insurance may not have the 2024 plan updated in their system- so we willhave to wait until after 07/02/24 to submit the Prior Authorization. CLIPPER TENDER * Telephone Encounter - Fredrick Leos - 06/20/2024 3:34 PM DRY CLIPPER TENDER Patient Query: Was an attempt to transfer to the assigned clinical staff or backline? Yes back line did not see a problem with insurance advised to send a TE Reason for call?: Patient contacted his insurance and was advised that he is covered and they nevergot a request for surgery/refused it I checked patients insurance on my end everything seems to be in the green and Gayathri advised the same as such she asked me to send TE to Gaby as we could not reproduce the issue. (Read message back to caller and ask them if there is anything else they'd like to add to the message) Who is the caller: Nic Teran What is the best number for them to contact for a call back: [phone] CLIPPER TENDER documented in this encounter Plan of Treatment Not on file documented as of this encounter Visit Diagnoses Not on filedocumented in this encounter Care Teams Certified Surgical Assistant Relationship Specialty Start Date End Date Lanre Parekh DO PCP - General Family Medicine 01/23/19 Eliana Quevedo MD [address] [place] [address] Referring Physician Gastroenterology 11/07/22 documented as of this encounter
--- OUTSIDE RECORDS SUMMARY | 2024-07-09 05:22 | XMS_ITS | Encounter Summary ---
Author Organization [facility] Address [address] [place] [address] Care Team Providers Care Fast Food Cashier Name Role Phone Eduinisaiahbandar Lanreezequiel Conway DO Primary Care Provide r Eliana Quevedo MD Unavailable [phone] Encounter Details Date Type Department Care Team (Late st Contact Info) Description 12/10/2023 Documentation [facility] [address] [place] [id number] Margie Parks, [facility] Social History Tobacco Use Types Packs/Day Years [...] often do you attend chur ch or holiness services? 1 to 4 times per year [...] place to sleep or slept in a care home (including now)? No 11/03/2022 Personal Safety Answer Date Recorded Have you ever been in or are you currently in a harmful physical or emotional relationship or is someone making you feel afraid or unsafe? 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 Completed by: Margie Parks RPh documented in this encounter Plan of Treatment Not on file documented as of this encounter Visit Diagnoses Not on filedocumented in this encounter Care Teams Fast Food Cashier Relationship Specialty Start Date End Date Lanre Parekh DO PCP - General Family Medicine 01/23/19 Eliana Quevedo MD [address] [place] [address] Referring Physician Gastroenterology 11/07/22 documented as of this encounter
--- OUTSIDE RECORDS SUMMARY | 2024-07-09 05:22 | XMS_ITS | Encounter Summary ---
Author Organization [facility] Address [address] [place] [address] Phone Care Team Providers Care Line Patrolman Name Role Phone Lanre Parekh Primary Care Provide r Eliana Quevedo MD Unavailable [phone] Encounter Details Date Type Department Care Team (Late st Contact Info) Description 10/31/2023 Orders Only [facility] Gastroenterology [address] [facility] Advanced Medicine [address]th [place] [address] [place] [address] Qi Maguire RN Crohn's disease of both small and large intestine with intestinal obstruction (HCC) (Primary Dx); Routine health maintenance; High risk medications (not anticoagulants) long-term use Social History Tobacco Use Types Packs/Day Years [...] How often do you attend chur or mosque services? 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 Gender Identity Not on file Sexual Orientation Not on file documented as of this encounter Plan of Treatment Scheduled Orders Name Type Priority Associated Diagnoses Orde r Schedule CBC with auto differential Lab Routine Crohn's disease of both small and large intestine with intestinal obstruction (HCC) Routine health maintenance High risk medications (not anticoagulants) long-term use 3 Occurrences starting 10/31/2023 until 10/30/2024, 1 completed Comprehensive metabolic panel Lab Routine Crohn's disease of both small and large intestine with intestinal obstruction (HCC) Routine health maintenance High risk medications (not anticoagulants) long-term use 3 Occurrences starting 10/31/2023 until 10/30/2024, 1 completed CRP (acute phase) Lab Routine Crohn's disease of both small and large intestine with intestinal obstruction (HCC) Routine health maintenance High risk medications (not anticoagulants) long-term use 3 Occurrences starting 10/31/2023 until 10/30/2024, 1 completed documented as of this encounter Procedures Procedure Name Priority Date/Time Associated Diagnosis Comments CBC WITH AUTO DIFFERENTIAL Routine 11/19/2023 9:00 AM CDT Crohn's disease of both small and large intestine with intestinal obstruction (HCC) Routine health maintenance High risk medications (not anticoagulants) long-term use CRP (ACUTE PHASE) Routine 11/19/2023 9:0 0 AM CDT Crohn's disease of both small and large intestine with intestinal obstruction (HCC) Routine health maintenance High risk medications (not anticoagulants) long-term use COMPREHENSIVE METABOLIC PANEL Routine 11/19/2023 9:00 AM CDT Crohn's disease of both small and large intestine with intestinal obstruction (HCC) Routine health maintenance High risk medications (not anticoagulants) long-term use documented in this encounter Results * CRP (acute phase) (11/19/2023 9:00 AM CDT) C-RP 3.2 <8.0 mg/L [facility] Blood 11/19/2023 9:00 AM CDT 11/19/2023 9:00 AM CDT Narrative [facility] - 11/20/2023 11:26 AM CDT FASTING:NO FASTING: NO Jackeline Lozano MD LAB BLOOD ORDERABLES F inal Result VICTORIANO Rodgers [address] [address] * Comprehensive metabolic panel (11/19/2023 9:00 AM CDT) [facility] Glucose 94 65 - 139 mg/dL [facility] Herrera Comment: ? Non-fasting reference interval BUN 16 7 - 25 mg/dL [facility] mat Herrera Creatinine 0.97 0.60 - 1.26 mg/dL [facility] Herrera eGFR 105 > OR = 60 mL/min/1.7 3m2 [employer] river[facility] Javier BUN/creat ratio SEE NOTE: (calc) [facility] mat Herrera Comment: ?? Not Reported: BUN and Creatinine are within ?? reference range. ? Sodium 135 135 - 146 mmol/L [employer] Javier Potassium, pl 4.0 3.5 - 5.3 mmol/L [employer]avier Chloride 105 98 - 110 mmol/L [employer] mat Herrera CO2 24 20 - 32 mmol/L [employer] Javier Calcium 9.1 8.6 - 10.3 mg/dL [employer] Javier Protein, sr 7.6 6.1 - 8.1 g/dL [employer] J[facility] Albumin 4.5 3.6 - 5.1 g/dL [employer] Herrera GLOBULIN 3.1 1.9 - 3.7 g/dL (calc) [employer] Javier Alb/glob ratio 1.5 1.0 - 2.5 (calc) [employer] Javier Bilirubin, total 0.7 0.2 - 1.2 mg/dL [employer]S [facility] Herrera Alk phos 70 36 - 130 U/L [facility] AST 19 10 - 40 U/L [facility] Javier ALT (SGPT) 25 9 - 46 U/L [facility] Herrera Blood 11/19/2023 9:00 AM CDT 11/19/2023 9:00 AM CDT Narrative [facility] - 11/20/2023 11:26 AM CDT FASTING:NO FASTING: NO Jackeline Lozano MD LAB BLOOD ORDERABLES F inal Result [facility] [address] [place] [address] * (ABNORMAL) CBC with auto differential (11/19/2023 9:00 AM CDT) WBC 7.3 3.8 - 10.8 Thousand/u L [facility] RBC, POC 3.71(L) 4.20 - 5.80 Million/uL [facility] Hgb 12.8(L) 13.2 - 17.1 g/dL [facility] Hct 38.0(L) 38.5 - 50.0 % [facility] MCV 102.4(H) 80.0 - 100.0 fL [facility] MCH 34.5(H) 27.0 - 33.0 pg [facility] MCHC 33.7 32.0 - 36.0 g/dL [facility] Rdw 13.7 11.0 - 15.0 % [facility] Platelets 210 140 - 400 Thousand/u L [facility] MPV 11.0 7.5 - 12.5 fL [facility] Neutrophils, abs 5,125 1,500 - 7,800 cells/uL [facility] Lymphocytes, abs 1,716 850 - 3,900 cells/uL [facility] Monocyte abs 380 200 - 950 cells/uL [facility] Eosinophils, abs 29 15 - 500 cells/uL [facility] Basophils, abs 51 0 - 200 cells/uL [facility] Neutrophils 70.2 % [facility] Lymphocyte pct 23.5 % [facility] Monocytes 5.2 % [facility] Eosinophils 0.4 % [facility] Basophils 0.7 % [facility] Blood 11/19/2023 9:00 AM CDT 11/19/2023 9:00 AM CDT Narrative [facility] - 11/20/2023 11:26 AM CDT FASTING:NO FASTING: NO Jackeline Lozano MD LAB BLOOD ORDERABLES F inal Result [facility] [address] [place] [address] documented in this encounter Visit Diagnoses Diagnosis Crohn's disease of both small and large intestine with intestinal obstruction (HCC)- Primary Routine health maintenance Unspecified examination High risk medications (not anticoagulants) long-term use Encounter for long-term (current) use of other medications documented in this encounter Care Teams Line Patrolman Relationship Specialty Start Date End Date Lanre Parekh DO PCP - General Family Medicine 01/23/19 Eliana Quevedo MD [address] [place] [address] Referring Physician Gastroenterology 11/07/22 documented as of this encounter
--- OUTSIDE RECORDS SUMMARY | 2024-07-09 05:22 | XMS_ITS | Encounter Summary ---
Author Organization [facility] Address [address] [place] [address] Phone Care Team Providers Care Reception Centre Manager Name Role Phone Lanre Parekh Primary Care Provide r Eliana Quevedo MD Unavailable [phone] Reason for Visit * Reason Onset Date Comments Prior Auth 06/20/2024 Encounter Details Date Type Department Care Team (Late st Contact Info) Description 06/20/2024 Telephone [facility] Gastroenterology [address] [facility] [address]th [place] [address] [place] [address] Karissa Guallpa CMA Prior Auth Social History Tobacco Use Types Packs/Day Years [...] often do you attend chur ch or restoration services? 1 to 4 times per year [...] place to sleep or slept in a longterm (including now)? No 11/03/2022 Personal Safety Answer Date Recorded Have you ever been in or are you currently in a harmful physical or emotional relationship or is someone making you feel afraid or unsafe? Denies 11/02/2022 Sex and Gender Information Value Date Recorded Sex Assigned at Not on file Legal Sex Male 11:11 PM PAID INTERNSHIP Gender Identity Not on file Sexual Orientation Not on file documented as of this encounter Miscellaneous Notes * Telephone Encounter - Karissa Guallpa CMA - 06/20/2024 4:[address] Lozano patient needing PA. Adalimumab - Adaz 40 mg every week Will you please assist? INTERNSHIP documented in this encounter Plan of Treatment Not on file documented as of this encounter Visit Diagnoses Not on filedocumented in this encounter Care Teams Reception Centre Manager Relationship Specialty Start Date End Date Lanre Parekh DO PCP - General Family Medicine 01/23/19 Eliana Quevedo MD [address] [place] [address] Referring Physician Gastroenterology 11/07/22 documented as of this encounter
--- OUTSIDE RECORDS SUMMARY | 2024-07-09 05:22 | XMS_ITS | Encounter Summary ---
Author Organization [facility] Address [address] [facility] [address] [place] [address] Phone Care Team Providers Care Biomass Power Plant Manager Name Role Phone Lanre Parekh Primary Care Provide r Eliana Quevedo MD Unavailable [phone] Reason for Visit * Consultation (Routine) - Closed Specialty Diagnoses / Procedures Referred By Contac t Referred To Contact Minimally Invasive Surgery Diagnoses Incisional hernia, without obstruction or gangrene Jackeline Lozano MD [address] [facility] [address] [place] [address] Phone: tel: fax: [facility] (All Locations) Referral ID Status Reason Start Date Expiration Date V isits Requested Visits Authorized [id number] Closed Specialty Services Required 12/10/2023 01/08/2025 1 1 Encounter Details Date Type Department Care Team (Latest Contact Info) Description 03/26/2024 1:30 PM CDT Office Visit [facility] Minimally Invasive Surgery [address] [facility] [address] [place] [address] Venkata Lynch MD [address] [facility] [phone] [place] [address] Incarcerated incisional hernia (Primary Dx); Crohn's disease with complication, unspecified gastrointestinal tract location (HCC) Social History Tobacco Use Types Packs/Day [...] often do you attend chur ch or protestant services? 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 Gender Identity Not on file Sexual Orientation Not on file documented as of this encounter Last Filed Vital Signs Vital Sign Reading Time Taken Comments Blood Pressure 132/81 03/26/2024 1:16 PM CDT Pulse 69 03/26/2024 1:16 PM CDT Temperature - - Respiratory Rate - - Oxygen Saturation - - Inhaled Oxygen Concentration - - Weight 88.6 kg (195 lb 6.4 oz) 03/26/2024 1:16 P M CDT Height 172.7 cm (5' 8 ) 03/26/2024 1:16 PM CDT Body Mass Index 29.71 03/26/2024 1:16 PM CDT documented in this encounter Patient Instructions * Patient Instructions* Venkata Lynch MD - 03/26/2024 1:30 PM CDT Scheduling surgery: You should expect a call from our office in the next 3-5 business days to schedule your operation. If you do not hear from us in that time please call us at [phone]. If your case is to be performed in combination with another surgeon this may take some increased time to coordinate. Anesthesia Evaluation (CPAP): You will receive information on your pre-admission anesthesia visit when we schedule your surgery. This will ideally occur 3-4 weeks before your surgery date. This will help ensure everything is in order prior to your surgery. You may require additional testing prior to surgery to ensure your safety. New / Worsening symptoms: If you have any acute problems between now and your surgery date such as worsening pain, vomiting or other concerns do not hesitate to contact our office. If it is an emergency, please call 911, or proceed to your nearest emergency room. documented in this encounter Progress Notes * Venkata Lynch MD - 03/26/2024 1:30 PM CDT Images from the original note were not included. [facility] Minimally Invasive Surgery New Ventral/Incisional Hernia Patient Evaluation Nic Teran [id number] 1990 Referring Physician: Jackeline Lozano,* PCP: Lanre Parekh DO Reason for Visit: Consult requested by Jackeline Lozano,* for evaluation of a ventral incisional hernia . HPI: Nic Teran is a 33 y.o. male with PMH of Crohn's disease with ileocolonic stricturing s/p ileocecectomy who was referred for a ventral incisional hernia. Patient underwent ileocecectomy in 2018 for stricturing disease. He was previously on Humira and methotrexate. He is currently on adalimumab, mercaptopurine, allopurinol, and colestipol. Patient has noted a bulge at his incision site for approximately 5 years. The bulge has been enlarging slowly over time. Patient reports having some pain and discomfort associated with the hernia that has gotten steadily worse over time. Patient is tolerating a diet without issues and having normalbowel function with cholestipol. Patient denies obstructive symptoms and no issues requiring ED visit or hospital admission. He has not had this repaired in the past. Patient Factors: Smoking: Non-smoker BMI: Body mass index is 29.71 kg/m??. Previous Transplant: No Previous Cancer: No Previous VTE: No Obstructions: None Previous SSI: No Diabetes: No History of MRSA: No Hernia Factors: Recurrent hernia: No Number of previous repairs: None Previous mesh: No Previous mesh removed: N/A Past Medical History: He has a past medical history of Allergic rhinitis, Anemia, Crohn's disease (CMS/HCC) (HCC) (2004),GERD (gastroesophageal reflux disease), Iritis, and JALYN on CPAP. He has no past medical history of PONV (postoperative nausea and vomiting). Past Surgical History: He has a past surgical history that includes Vasectomy (2017) and Other surgical history (12/2017). Medications: Current medication list was provided and was reviewed. Anticoagulation: No Antiplatelet No Immunosuppression: adalimumab, mercaptopurine Review of Symptoms/CORE Review: A comprehensive review of systems was completed by the patient and reviewed, signed and dated in [facility]. Any additional past medical/surgical/social/family history was reviewed in the CORE review. Physical Exam: BP 132/81 (BP Location: Right arm, Patient Position: Sitting) Pulse 69 Ht 172.7 cm (5' 8 ) Wt88.6 kg (195 lb 6.4 oz) BMI 29.71 kg/m?? GENERAL: No acute distress. Well nourished. NEURO: Alert and oriented. Moves all extremities. HEENT: Pupils equal. EOMs grossly normal. PULM: Breathing comfortably on room air. No audible wheezes. CV: Regular rate and rhythm. ABDOMEN: soft, non-distended, non-tender, periumbilical midline incision with mild scar widening, underlying bulge with inability to palpate fascial defect, 2 areas of skin breakdown due to scratching EXT: Warm, well perfused. Patient Image: Diagnostic studies I have personally reviewed include: Interval/most recent CT A/P from March 2023 was reviewed, which shows small fat containing Nigerien-cheese incisional hernia extending 4 cm in length by maximally 3 cm in width in his periumbilical region Assessment/Plan: Nic Teran is a 33 y.o. male with PMH of Crohn's disease with ileocolonic stricturing s/p ileocecectomy who was referred for a ventral incisional hernia. Plan of Care: We discussed both open and minimally invasive alternatives for repair. I believe the patient would be best suited with a open approach with DuraMesh suture to avoid any wide mesh overlap given his Crohn's disease with history of resection. The risks, benefits, and alternatives to surgery were discussed with the patient. The risks of the surgery discussed in detail with the patient include, but are not limited to, bleeding, infection, enterotomy, unplanned bowel resection, intraabdominal sepsis,wound sepsis, mesh infection, enterocutaneous fistula formation, chronic abdominal pain, recurrent hernia, deep venous thrombosis, pulmonary embolism, myocardial infarction, stroke, renal failure, and pneumonia. All of their questions were answered. The patient expressed understanding of these risks and wishes to proceed. We will plan to schedule this at his earliest convenience along with referral for CPAP evaluation. --- Venkata Lynch MD cobol programmer Minimally Invasive GI Surgery & Abdominal Wall Reconstruction [facility] * Venkata Lynch MD - 03/26/2024 1:30 PM CDT Images from the original note were not included. [facility] Surgical Plan Form Minimally Invasive Surgery Nic Beck Parul 1990 [id number] Surgeon: Cris [place]: [x] PVT (POD 1) [] [facility] [] CAM (POD 4) [] [facility] [] [facility] (BMI <45) Patient class: [x] Outpatient In Bed [] Outpatient [] Surgery Admit [] Inpatient Postop Destination: [] Outpatient [x] Floor [] ICU Section I: Completed by the Surgeon Type: [x] Open [] Robotic [] Laparoscopic [] Endoscopic Laterality: [] Left [] Right [] Bilateral [x] N/A Anesthesia: [x] General [] MAC [] Consult [] Local Primary Procedure: Open incisional hernia ([id number]) Secondary Surgeon / Procedure: N/A Diagnosis / CPT: Initial, 3-10 cm, incarcerated - [id number] Postop Pain Request: None Case classification: [x] Elective [] Urgent [] Emergent Pre-op visit required: [x] PAT / CPAP BMI Goal Prior to Scheduling? [x] No [] Yes <40 [] Yes <35 Smoking Cessation? [x] No [] Yes - call 30d prior [] Yes - nicotine test Anticoagulation Clearance? No Medical Needs: Other - perioperative Crohn's medication management from Dr. Lozano Research Case: [x] No [] Yes Radiology Needed? [x] No [] Yes Section 2: Case specific details - Completed by the Surgeon Procedure Complexity: [x] Average [] Above Average Estimated Length: 2 hours Patient Positioning: Supine Positioning Aids: None Special Equipment: None Hernia: [x] Mesh [] Recurrent [x] Incarcerated Preop Meds: DVT Heparin ABX Ancef Pain meds Tylenol 1g and Gabapentin 300 mg Required Before Surgery: None Surgeon Signature: Date: 03/26/24 documented in this encounter Plan of Treatment Not on file documented as of this encounter Visit Diagnoses Diagnosis Incarcerated incisional hernia- Primary Incisional hernia with obstruction Crohn's disease with complication, unspecified gastrointestinal tract location (HCC) documented in this encounter Orders Outpatient Referral Count Last Ordered Date Fir st Ordered Date AMB REFERRAL TO MINIMALLY INVASIVE SURGERY 1 03/26/2024 documented in this encounter Care Teams Biomass Power Plant Manager Relationship Specialty Start Date End Date Lanre Parekh DO PCP - General Family Medicine 01/23/19 Eliana Quevedo MD [address] [place] [address] Referring Physician Gastroenterology 11/07/22 documented as of this encounter
--- OUTSIDE RECORDS SUMMARY | 2024-07-09 05:22 | XMS_ITS | Encounter Summary ---
Author Organization [facility] Address [address] [place] [address] Phone Care Team Providers Care Drop Forger Helper Name Role Phone Lanre Parekh Primary Care Provide r Eliana Quevedo MD Unavailable [phone] Reason for Visit * Reason Comments Osteoporosis * Diagnostic Imaging (Routine) - Pending Review Specialty Diagnoses / Procedures Referred By Contac t Referred To Contact Diagnoses Low bone mass Procedures Dexa TBS Axial Skeleton Bone Density 1 or more sites Fernando Mckeon MD Phone: tel: fax: [facility] (All Locations) Referral ID Status Reason Start Date Expiration Date V isits Requested Visits Authorized [id number] Pending Review 05/23/2023 06/21/2024 1 1 Encounter Details Date Type Department Care Team (Latest Contact Info) Description 06/04/2023 1:30 PM LEAD SOFTWARE TESTER Clinical Support [facility] [address] [facility] 5th [place] [address] [place] [address] Crohn's disease without complication, unspecified gastrointestinal tract location (HCC) (Primary Dx); Low bone mass Social History Tobacco Use Types Packs/Day Years [...] any clubs o r organizations such as advent groups, unions, fraternal or athletic groups, or [...] on file Legal Sex Male 11:11 PM LEAD SOFTWARE TESTER Gender Identity Not on file Sexual Orientation Not on file documented as of this encounter Plan of Treatment Not on file documented as of this encounter Procedures Procedure Name Priority Date/Time Associated Diagnosis Comments DEXA TBS AXIAL SKELETON BONE DENSITY 1 OR MORE SITES Schedule Routine, Read Routine (OP Routine) 06/04/2023 1:40 PM LEAD SOFTWARE TESTER Low bone mass documented in this encounter Results * Dexa TBS Axial Skeleton Bone Density 1 or more sites (06/04/2023 1:40 PM LEAD SOFTWARE TESTER) Anatomical Region Laterality Modality Wrist, Body N/A Radiographic Nancy ging Narrative 06/06/2023 12:44 AM LEAD SOFTWARE TESTER Patient Name: Nic Teran Date of : 1990 Date of scan: 06/04/2023 Bone mineral density was performed on a [employer] Discovery Densitometer. ?? Based on machine cross-calibration [...] by the International Society of Clinical Densitometry. [id number] Fernando Mckeon MD IM DXA PROCEDURES Final Result documented in this encounter Visit Diagnoses Diagnosis Crohn's disease without complication, unspecified gastrointestinal tract location (HCC)- Primary Low bone mass documented in this encounter Care Teams Drop Forger Helper Relationship Specialty Start Date End Date Lanre Parekh DO PCP - General Family Medicine 01/23/19 Eliana Quevedo MD [address] [place] [address] Referring Physician Gastroenterology 11/07/22 documented as of this encounter
--- OUTSIDE RECORDS SUMMARY | 2024-07-09 05:22 | XMS_ITS | Encounter Summary ---
Author Organization [facility] Address [address] [place] [address] Phone Care Team Providers Care Blintze Roller Name Role Phone Lanre Parekh Primary Care Provide r Eliana Quevedo MD Unavailable [phone] Reason for Referral * MRI/CAT/PET Scan (Routine) - Closed Specialty Diagnoses / Procedures Referred By Contac t Referred To Contact Radiology Diagnoses Sclerosing mesenteritis (HCC) Procedures CT Abdomen Pelvis W Contrast Eliana Quevedo MD [address] [place] [address] Phone: tel: fax: [address] [address] Referral ID Status Reason Start Date Expiration Date Visits Re quested Visits Authorized [id number] Closed 03/06/2023 04/04/2024 1 1 Encounter Details Date Type Department Care Team (Late st Contact Info) Description 03/06/2023 Orders Only [facility] Gastroenterology [address] [facility] Medicine 12th [place] [address] [place] [address] Shanika Braun Sclerosing mesenteritis (HCC) (Primary Dx) Social History Tobacco Use [...] often do you attend chur ch or christianity services? 1 to 4 times per year 11/03/2022 Do you belong to any clubs o r organizations such as caodaism groups, unions, fraternal or athletic groups, or [...] place to sleep or slept in a residential (including now)? No 11/03/2022 Personal Safety Answer Date Recorded Have you ever been in or are you currently in a harmful physical or emotional relationship or is someone making you feel afraid or unsafe? 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 Eliana Quevedo MD IMG CT PROCEDURES F inal Result documented in this encounter Visit Diagnoses Diagnosis Sclerosing mesenteritis (HCC)- Primary Sclerosing mesenteritis Sclerosing mesenteritis (HCC) Sclerosing mesenteritis documented in this encounter Care Teams Blintze Roller Relationship Specialty Start Date End Date Lanre Parekh DO PCP - General Family Medicine 01/23/19 Eliana Quevedo MD [address] [place] [address] Referring Physician Gastroenterology 11/07/22 documented as of this encounter
--- OUTSIDE RECORDS SUMMARY | 2024-07-09 05:23 | XMS_ITS | Encounter Summary ---
Author Organization [facility] Address [address] [place] [address] Phone Care Team Providers Care Environmental Science Program Director Name Role Phone Lanre Parekh DO Primary Care Provide r Encounter Details Date Type Department Care Team (Late st Contact Info) Description 08/02/2022 Orders Only [facility] Gastroenterology [address] [facility] 12th [place] [address] [place] [address] Rowan Cardenas, JOSH Social History Tobacco Use Types Packs/Day Years Used Date Smoking Tobacco: Never Smokeless Tobacco: Never Alcohol Use Standard Drinks/Week Comments Yes 0 (1 standard drink = 0.6 oz pur e alcohol) wine-rarely AUDIT-C Answer Date Recorded Q1: How often do you have a drink containing alc ohol? 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
--- OUTSIDE RECORDS SUMMARY | 2024-07-09 05:23 | XMS_ITS | Encounter Summary ---
Author Organization [facility] Address [address] [place] [address] Phone Care Team Providers Care Burglary Investigator Name Role Phone Lanre Parekh Primary Care Provide r Reason for Visit * Reason Onset Date Comments PA for Humira 09/12/2022 PA Approved 09/12/2022 Plan Limit Quanity Exception Form 09/12/2022 Plan Limit Quantity Exception Denied 09/12/2022 Plan Limit Quantity Exception Approved Encounter Details Date Type Department Care Team (Late st Contact Info) Description 09/12/2022 Documentation [facility] Gastroenterology [address] [facility] 12th [place] [address] [place] [address] Shanika Braun for Humira; PA Approved; Plan Limit Quanity Exception Form; Plan Limit Quantity Exception Denied; Plan Limit Quantity Exception Approved Social History Tobacco Use Types Packs/Day Years [...] week 11/03/2022 How often do you attend [facility] or yarsani services? 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 Called Rhonda to give her an update on the next step and the urgent appeal that was initiated received call from Rhonda [phone] ext#[phone] with [facility] Specialty inquiring about PLQE, states there is an update stating denial. Explained I submitted the PLQE form with all supporting documentation's on 10/30/22. Rhonda transferred me to Justin in the clinical review department, explained we are waiting on the determination. Justin reviewed all notes, she states the PLQE is stuck in the que, Justin reached out to a clinician to review, she states clinician is reviewing but needs more time, gavemy direct phone number, the clinician will call with a determination 10/30/22 - faxed PLQE (plan limit quantity exception) form completed and faxed back to [facility] Specialty [phone] 10/27/22 - returned called to [facility] Pharmacy [phone], spoke to Tiffanie, explained neededto initiate PA for Quantity Only, per Tiffanie, need to submit a PLQE (Plan Limit Quantity Exception), answered all questions, PA#[id number], Tiffanie states need to transfer to Clinician for review, Tiffanie spoke to Miguel Rivera asked for all medical records including the Humira article be faxed to [phone] for clinician review. Tiffanie state if denied, our office will receive the denial letter,next step would be an appeal for the quantity. All medication documentation and Humira article has been faxed 09/14/22 - PA approved through [facility] Specialty #[id number] Medication Only starting 09/13/2022 through 09/14/2023 PA verbally initiated to [facility] Specialty #[id number] for Humira (4 per 28 days) - medical records faxed to [phone] documented in this encounter Plan of Treatment Not on file documented as of this encounter Visit Diagnoses Not on filedocumented in this encounter Care Teams Burglary Investigator Relationship Specialty Start Date End Date Lanre Parekh DO PCP - General Family Medicine 01/23/19 documented as of this encounter
--- OUTSIDE RECORDS SUMMARY | 2024-07-09 05:23 | XMS_ITS | Encounter Summary ---
Author Organization [facility] Healthcare Address [address] [place] [address] Care Team Providers Care Action Installer Name Role Phone Lanre Parekh Primary Care Provide r Eliana Quevedo MD Unavailable [phone] Reason for Visit * Reason Comments Diarrhea Abdominal Pain * Auth/Cert (Routine) Specialty Diagnoses / Procedures Referred By Renay t Referred To Contact Diagnoses Hypocalcemia Abdominal pain HERMELINDO (acute kidney injury) (HCC) History of Crohn's disease Diarrhea, unspecified type Procedures na Referral ID Status Reason Start Date Expiration Date Visits Re quested Visits Authorized [id number] 1 1 Encounter Details Date Type Department Care Team (Latest Contact Info) Description 11/02/2022 8:27 PM CDT - 11/07/2022 2:50 PM CDT Hospital Encounter [address] [address] Beatrice Jones MD [address] [place] [id number] Noreen Moura MD [address] [place] [address] [phone] Evaristo Ashraf MD [address] [place] [id number] Osiel Garcia MD [address] [place] [phone] Abdominal pain (Primary Dx); Diarrhea, unspecified type; History of Crohn's disease; Hypocalcemia; HERMELINDO (acute kidney injury) (CMS/HCC) (HCC); Crohn's disease of both small and large intestine with intestinal obstruction (HCC) Discharge Disposition: Discharge to home or [...] week 11/03/2022 How often do you attend [facility] or synagogue services? 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 Gender Identity Not on file Sexual Orientation Not on file documented as of this encounter Last Filed Vital Signs Vital Sign Reading Time Taken Comments Blood Pressure 128/79 11/07/2022 7:32 AM CDT Pulse 64 11/07/2022 7:32 AM CDT Temperature 36.4 ??C (97.5 ??F) 11/07/2022 7:32 AM CD T Respiratory Rate 16 11/07/2022 7:32 AM CDT Oxygen Saturation 97% 11/07/2022 7:32 AM CDT Inhaled Oxygen Concentration - - Weight 89 kg (196 lb 3.2 oz) 11/02/2022 11:32 PM CDT Height 172.7 cm (5' 8 ) 11/02/2022 11:32 PM CDT Body Mass Index 29.83 11/02/2022 11:32 PM CDT documented in this encounter Discharge Summaries * Evaristo Ashraf MD - 11/07/2022 12:04 PM CDT Inpatient Discharge Summary Patient Name - Nic Escalera Patient Age - 32 yrs Patient - [id number] [facility] - [id number] Document Creation Date: 11/07/2022 Admitting Provider, : Beatrice Jones MD Discharge Provider, : Evaristo Ashraf MD Primary Care Physician at Discharge: Lanre Parekh DO [phone] Admission Date: 11/02/2022 Discharge Date/time: 11/07/2022 Admission Location: [facility] LOS - LOS: 5 days DETAILS OF HOSPITAL STAY Hospital Problems/Diagnoses Principal Problem: Abdominal pain Active Problems: Crohn's disease of both small and large intestine (HCC) Diarrhea due to malabsorption Enteritis Acute kidney injury (CMS/HCC) (HCC) Hyponatremia Corticosteroid-induced neutrophilia Reason for Hospitalization: Abdominal Pain Hospital Course: Patient with history of Crohn's disease complicated by Ileocolonic stricture status post ileocecectomy in 2018 presenting to [facility] with complaints of abdominal pain and non-bloody diarrhea after running out of home mercaptopurine. Received 1 dose of IV steroids in ED prior to admission. GI consulted.Concern for underlying infection (presumed bacterial). Completed 4.5 days of IV piperacillin-tazobactam and completed last day with single dose of amoxicillin- clavulanate. No further antibiotics. Stool studies NTD. Back to baseline bowel function. White count normalized. Discharge with outpatient GI follow up. Labs notable for HERMELINDO with Cr 1.40 on arrival. Improved to 0.90 on discharge. Discharge Details Physical Exam at Discharge: Discharge Condition: stable Pulse: 64 Resp: 16 BP: 128/79 Temp: 36.4 ??C (97.5 ??F) Weight: 89 kg (196 lb 3.2 oz) Pertinent Exam Findings at Discharge: General: Not in apparent distress, AAOx3 Heart: RRR, no mrg Lungs: CTAB, non-labored on room air Abdomen: BS+, slightly firm, non-tender, non-distended Discharge Disposition: Code Status at Discharge: Full Code Active Issues & Recommended Plan for Follow-up: Allergies: Flagyl [metronidazole] Discharge Medications: Your medication list ASK your doctor about these medications Instructions Last Dose Given Next Dose Due allopurinoL 100 mg tablet Doctor's comments: MD aware of drug interaction with 6MP and wishes to dispense both Commonly known as: ZYLOPRIM 100 mg, oral, Daily, Safety labs required every 3 months, Next labs due today then December 2022 balsalazide 750 mg capsule Commonly known as: COLAZAL Take 3 capsules three times daily. colestipoL 1 gram tablet Commonly known as: COLESTID 1 g, oral, 4 times daily PRN docosahexaenoic acid-epa 120-180 mg capsule No dose, route, or frequency recorded. ergocalciferol 50,000 unit capsule Commonly known as: VITAMIN D TAKE ONE CAPSULE BY MOUTH EVERY 14 DAYS folic acid 1 mg tablet Commonly known as: FOLVITE 1 mg, oral, Daily Humira(CF) Pen 40 mg/0.4 mL pen injector kit Generic drug: adalimumab 40 mg, subcutaneous, Every 7 days, Safety labs are required every 3 months for med refills, next labs due 09/2022 mercaptopurine 50 mg tablet Commonly known as: PURINETHOL 50 mg, oral, Daily, Safety labs required every 3 months for med refills, next labs due today then December 2022. multivitamin capsule 1 capsule, oral, Every morning PROBIOTIC BLEND ORAL 1 tablet, oral, Daily sildenafiL 100 mg tablet Commonly known as: VIAGRA Take 1/2 or 1 tablet ONE hour prior to activity on an empty stomach daily PRN turmeric (bulk) 100 % powder 1,500 mg, oral Time Spent in Discharge Process: I have spent 42 minutes on discharge planning activities. Time spent was on chart review, interviewing and examining the patient, entering orders, documentation and discussion with cm/sw/nurse/consulants Test Results Pending at Discharge (If Blank, None Found): Pending Labs Order Current Status CRP (acute phase) In process Calprotectin, fecal In process Erythrocyte sedimentation rate In process Magnesium In process Phosphorus In process Surgical pathology In process Ova and parasite examination Stool Preliminary result Stool culture Stool Rectum Preliminary result Operative Procedures Performed (If Blank, None Found): Procedure(s): COLON BIOPSY Outpatient Follow-Up: Future Appointments Date Time Provider Department Center 12/01/2022 10:00 AM IM INJECTIONS, [facility] 5C INJ [facility] / [facility] 05/03/2023 9:30 AM Eliana Quevedo MD GI [facility] 12B [facility] 06/04/2023 1:30 PM [facility] TECH [facility] 06/04/2023 2:00 PM Fernando Mckeon MD [facility] 5C indidebt Please schedule an appointment with the following provider(s): No follow-up provider specified. ANCILLARY INFORMATION Other Procedures & Diagnostic Tests: CT Abdomen Pelvis W Contrast Result Date: 11/02/2022 EXAM DESCRIPTION: CT ABDOMEN PELVIS W CONTRAST REASON FOR STUDY: Abdominal pain, acute, nonlocalized Abdominal pain, acute, nonlocalized, back pain , Crohn's disease TECHNIQUE: CT scan of the abdomenand pelvis performed with intravenous and without oral contrast using helical scanning technique with dynamic intravenous contrast injection. Reconstructed coronal and sagittal MPR images reviewed. All images stored on PACS. Automated exposure control was used as a dose optimization technique for this examination. CONTRAST TYPE/DOSE: 92mL of IOHEXOL 350 MG IODINE/ML INTRAVENOUS SOLUTION injected COMPARISON: 02/06/2018 , 05/24/2018 REFERENCE: Per ACR white paper recommendations, unless otherwise specified no follow-up imaging is recommended for incidental renal and adrenal lesions per consensus recommendations based on imaging criteria. Further lab evaluation could be pursued based on clinical findings. FINDINGS: LOWER CHEST: Mild subsegmental atelectasis. Moderate-sized hiatal hernia. No pleural effusion. Imaged portions of the heart are normal. LIVER: Normal size. No identified cystic or solid masses. Mild diffuse hepatic steatosis. The hepatic and portal veins are patent. GALLBLADDER: Normal. BILE DUCTS: No intrahepatic or extrahepatic ductal dilatation. SPLEEN: Normal size. No focal lesions. PANCREAS: No identified cystic or solid masses. No significant calcifications. No adjacent inflammation or peripancreatic fluid collections. Pancreatic duct not dilated. ADRENALS: Normal.KIDNEYS/URINARY TRACT: No identified significant cystic or solid masses. No visualized stones. No hydronephrosis or hydroureter. Symmetric enhancement. Urinary bladder is unremarkable. GI: Moderate-sized hiatal hernia. The stomach is otherwise normal. There is mucosal hyperemia of several nondilated and fluid-filled loops of small bowel throughout the abdomen which could reflect early developing acute enteritis or reflect diarrhea state. Prior ileocecectomy with primary ileocolic anastomosis inthe right lower quadrant. There is liquid stool within the ascending colon and majority of the transverse colon with mild mucosal hyperemia likely reflective of a rapid bowel transit state with no definitive CT evidence of acute colitis at this time. There is no evidence of colonic or small bowel perforation. There is no evidence of fibro stenosis or bowel fistulization. PERITONEUM: No ascites orfree air. There is geographic hyperattenuation of the mesenteric fat in the mid abdomen with associated prominent but nonenlarged mesenteric lymph nodes which could reflect mesenteric panniculitis inthe appropriate clinical setting or sequela of mesenteric panniculitis. RETROPERITONEUM: No mass oradenopathy. REPRODUCTIVE: No significant abnormality. VASCULATURE: No abdominal aortic aneurysm. The abdominal aorta and its branches are patent. MUSCULOSKELETAL: No acute fractures or aggressive osseous lesions. No CT evidence of sacroiliitis OTHER: Small fat containing periumbilical ventral abdominal wall hernia. IMPRESSION: 1. History of Crohn's disease with prior ileocecectomy and primary ileocolic anastomosis in the right lower quadrant. 2. Mucosal hyperemia of several nondilated and fluid- filled loops of small bowel throughout the abdomen which could reflect early developing acute enteritis (either inflammatory or infectious in etiology), or reflect diarrhea state. Liquid stool withinthe ascending colon and majority of the transverse colon with mild mucosal hyperemia likely reflective of a rapid bowel transit state with no definitive CT evidence of acute colitis at this time. No colonic or small bowel perforation. No evidence of bowel fibrostenosis or bowel fistulization. THIS IS AN ELECTRONICALLY VERIFIED FINAL REPORT 11/02/2022 7:56 PM - Electronically signed by Lyubov Hudson M.D. AT T: Report ID: [id number] Reading Location: [place] [address] Recent Labs: Recent Labs Lab Units 11/07/2242411/06/22 0838 11/05/22 0622 WBC K/cumm 6.7 5.2 5.4 HEMOGLOBIN g/dL 13.4 13.8 12.3* HEMATOCRIT % 38.8* 40.5 36.3* PLATELETS K/cumm 232 220 190 Recent Labs Lab Units 11/07/2242411/06/22 0838 11/05/22 0622 WBC K/cumm 6.7 5.2 5.4 HEMOGLOBIN g/dL 13.4 13.8 12.3* HEMATOCRIT % 38.8* 40.5 36.3* PLATELETS K/cumm 232 220 190 NEUTROS PCT % 41.9 50.1 54.5 LYMPHS PCT % 50.1 42.3 31.8 MONOS PCT % 6.0 6.0 12.0 EOS PCT % 1.3 0.8 1.1 Recent Labs Lab Units 11/07/2242411/06/2283711/05/2262111/03/2240511/02/22 1718 SODIUM mmol/L 139 139 138 < > 133* POTASSIUM PLASMA mmol/L 3.6 3.6 3.7 < > 4.6 CHLORIDE mmol/L 103 104 106 < > 101 CO2 mmol/L 25 24 19* < > 19* BUN SERUM mg/dL 10 8 10 < > 20 CREATININE mg/dL 0.90 0.80 0.70* < > 1.40* [id number] mL/min/1.73 m2 116 120 125 < > 68 GLUCOSE mg/dL 98 90 88 < > 117 CALCIUM mg/dL 9.0 8.9 8.3* < > 8.0* ALBUMIN g/dL -- -- -- -- 4.2 PHOSPHORUS PLASMA mg/dL -- -- -- -- 2.3 < > = values in this interval not displayed. Recent Labs Lab Units 11/07/2242411/06/2283711/05/2262111/03/2240511/02/22 1718 SODIUM mmol/L 139 139 138 < > 133* POTASSIUM PLASMA mmol/L 3.6 3.6 3.7 < > 4.6 CHLORIDE mmol/L 103 104 106 < > 101 CO2 mmol/L 25 24 19* < > 19* ANIONGAP mmol/L 11 11 13 < > 13 GLUCOSE mg/dL 98 90 88 < > 117 BUN SERUM mg/dL 10 8 10 < > 20 CREATININE mg/dL 0.90 0.80 0.70* < > 1.40* CALCIUM mg/dL 9.0 8.9 8.3* < > 8.0* ALBUMIN g/dL -- -- -- -- 4.2 ALK PHOS Units/L -- -- -- -- 74 ALT Units/L -- -- -- -- 27 AST Units/L -- -- -- -- 31 BILIRUBIN TOTAL mg/dL -- -- -- -- 0.5 < > = values in this interval not displayed. Recent Labs Lab Units 11/02/22 1718 ALK PHOS Units/L 74 BILIRUBIN TOTAL mg/dL 0.5 TOTAL PROTEIN g/dL 7.5 ALT Units/L 27 AST Units/L 31 Recent Labs Lab Units 11/02/228 MAGNESIUM mg/dL 1.5 Lab Results Component Value Date GLUCOSE 98 11/07/2022 GLUCOSE 90 11/06/2022 GLUCOSE 88 11/05/2022 Implant: Implants No active implants to display in this view. General Precautions (If Blank, None Found): Isolation Status: No active isolations Nutritional Status and in-house recommendations: Dietary Orders (From admission, onward) Start Ordered 11/05/22 1018 Adult Diet Regular Diet effective now Question: (MHB/MHE) Diet type Answer: Regular 11/05/22 1017 Anticoagulation Indication: INR: No results found for requested labs within last 30 days. Warfarin Administrations (last 168 hours) None Oxygen Status: O2 Therapy for the past 12 hrs: O2 Therapy 11/07/22 0732 None (Room air) Wound Care Instructions Active LDAs (If Blank, None Found): Peripheral IV 11/06/22 20 G Anterior;Left;Proximal Forearm (Active) Placement Date/Time: 11/06/222202 IV Change Due: 11/09/22 Size (Gauge): 20 G Location Orientation:Anterior;Left;Proximal Location: Forearm Site Prep: Chlorhexidine Inserted by: Josh Lezama Insertion attempts: 1 Patient Emergency Contact: Primary Emergency Contact: Dorinda Escalera, Talib Immunization Status at Discharge Immunization History Administered Date(s) Administered DTaP 05/10/1990 Influenza, Quadrivalent, Cell Culture-based MDCK, Preservative Free, Antibiotic Free, Prvfibkflegwu96/07/2021, 04/20/2022 Pneumococcal Conjugate PCV 13 01/25/2017 Pneumococcal Polysaccharide PPV23 05/17/2017, 10/26/2022 Tdap 02/09/2014 Evaristo Ashraf MD documented in this encounter Discharge Instructions * Attachments The following attachments cannot be sent through Care Everywhere. * Acute Abdominal Pain (Discharge Care) (Georgian) * Nutrition Tips for Relief of Diarrhea (Discharge Care) (Georgian) documented in this encounter Medications at Time of Discharge L.acid/L.casei/B. bif/B.raf/FOS (PROBIOTIC BLEND ORAL)Indications: gut health Take 1 tablet by mouth every morning multivitamin capsuleIndication s:Vitamin Deficiency Prevention Take 1 capsule by mouth every morning sildenafiL (VIAGRA) 100 mg tabletIndications :Erectile dysfunction, unspecified erectile dysfunction type Take 1/2 or 1 tablet ONE hour prior to activity on an empty stomach daily PRN 6 tablet 01/17/2022 turmeric, bulk, 100 % powderIndications :supplement Take 1,500 mg by mouth every morning adalimumab (Humira,CF, Pen) 40 mg/0.4 mL pen injector kitIndications:Cr ohn's disease of both small and large intestine with intestinal obstruction (HCC) Inject 0.4 mL (40 mg total) under the skin every 7 days Safety labs are required every 3 months for med refills, next labs due 09/2022 4 each 2 08/22/2022 3 allopurinoL (ZYLOPRIM) 100 mg tabletIndications :Crohn's disease of both small and large intestine with intestinal obstruction (HCC) Take 1 tablet (100 mg total) by mouth daily Safety labs required every 3 months, Next labs due today then December 2022 90 tablet 10/31/2022 3 balsalazide (COLAZAL) 750 mg capsuleIndication s:Ulcerative Colitis Take 2 capsules three times daily. 270 capsule 11/07/2022 3 colestipoL (COLESTID) 1 gram tabletIndications :Diarrhea, unspecified [...] 4 mercaptopurine (PURINETHOL) 50 mg tabletIndications :Crohn's disease of both small and large intestine with intestinal obstruction (HCC) Take 1 tablet (50 mg total) by mouth daily Safety labs required every 3 months for med refills, next labs due today then December 2022. 90 tablet 10/31/2022 3 documented as of this encounter Ordered Prescriptions Prescription Sig Dispense Quantity Refills Last Filled Start Date End Date balsalazide (COLAZAL) 750 mg capsuleIndications :Ulcerative Colitis Take 2 capsules three times daily. 270 capsule 11 11/07/2022 3 documented in this encounter Discharge Disposition Disposition Code Departure Means Destination Comment s Discharge to home or self care documented in this encounter Progress Notes * Luke Jones MD - 11/06/2022 1:40 PM CDT Gastroenterology Daily Progress Subjective Chief complaint of abdominal pain Interval History: The patient is much improved. Abdominal pain is completely resolved. He has had 2 bowel movements in the past 24 hours. No rectal bleeding. Objective Physical exam: General appearance: alert, cooperative, no distress. Eyes: no scleral icterus. HEENT: oral mucosa is moist and pink without noticeable ulcers. Cardiovascular: regular rate and rhythm, no murmurs, rubs, or gallops. Respiratory: breath sounds normal and symmetric; no crackles or wheezes. Abdomen/Gastrointestinal: soft, non-tender, non-distended, without mass, with normal bowel sounds. Musculoskeletal: no asymmetry or tenderness. Extremities: No cyanosis or edema. Neurological: No gross focal deficits noted. Skin: no rash or lesions. Lab/Radiology/Diagnostic Review: Laboratory review: Lab results in the last 12 hours: Recent Results (from the past 12 hour(s)) CBC with auto differential Collection Time: 11/06/22 8:38 AM Result Value Ref Range WBC 5.2 3.8 - 9.9 K/cumm Hgb 13.8 13.0 - 17.5 g/dL Hct 40.5 38.9 - 50.3 % Plt 220 150 - 400 K/cumm MPV 10.4 9.1 - 12.3 fL RBC 4.06 (L) 4.30 - 5.80 M/cumm MCV 99.8 (H) 81.3 - 96.4 fL MCH 34.0 (H) 27.1 - 33.3 pg MCHC 34.1 32.3 - 35.7 g/dL RDW CV 13.2 11.1 - 14.9 % RDW SD 48.7 (H) 35.7 - 48.1 fL NRBC abs 0.00 0.00 - 0.01 K/cumm Basic metabolic panel Collection Time: 11/06/22 8:38 AM Result Value Ref Range Sodium 139 135 - 145 mmol/L Potassium, pl 3.6 3.3 - 4.9 mmol/L Chloride 104 97 - 110 mmol/L CO2 24 22 - 32 mmol/L Anion gap 11 2 - 15 mmol/L BUN 8 8 - 25 mg/dL Creatinine 0.80 0.80 - 1.30 mg/dL Glucose 90 70 - 199 mg/dL Calcium 8.9 8.5 - 10.3 mg/dL Differential, auto Collection Time: 11/06/22 8:38 AM Result Value Ref Range Neutrophil abs 2.6 1.7 - 6.5 K/cumm Imm gran abs 0.0 0.0 - 0.1 K/cumm Lymphocyte abs 2.2 0.8 - 3.3 K/cumm Monocyte abs 0.3 0.2 - 0.8 K/cumm Eosinophil abs 0.0 0.0 - 0.5 K/cumm Basophil abs 0.0 0.0 - 0.1 K/cumm Neutrophil pct 50.1 % Imm gran pct 0.4 % Lymphocyte pct 42.3 % Monocyte pct 6.0 % Eosinophil pct 0.8 % Basophil pct 0.4 % eGFR Collection Time: 11/06/22 8:38 AM Result Value Ref Range eGFR 120 mL/min/1.73 m2 Vitals: 24hr Min/Max: Temp Min: 36.4 ??C (97.5 ??F) Max: 36.9 ??C (98.4 ??F) Pulse Min: 60 Max: 69 BP Min: 119/76 Max: 138/88 Resp Min: 14 Max: 18 SpO2 Min: 96 % Max: 98 % Most Recent : Vitals: 11/06/22 1145 BP: 138/88 Pulse: 61 Resp: 18 Temp: 36.7 ??C (98 ??F) SpO2: 98% I/O last 2 completed shifts: In: 240 [P.O.:240] Out: 0 No intake/output data recorded. Assessment/Plan Principal Problem: Abdominal pain Active Problems: Diarrhea due to malabsorption Enteritis Acute cystitis Acute kidney injury (CMS/HCC) (HCC) 32-year-old male with a history significant for Crohn's disease status post ileocecal resection in 2018, on Humira, 6 MP, allopurinol. He follows with GI at [facility]. he presented to the emergency department with abdominal pain and diarrhea. Etiology of the patient's symptoms were most likely secondary to an infectious etiology. Abdominal pain has now completely resolved and the patient has only had 2 bowel movements in the past 24 hours. Colonoscopy has been completed with biopsies pending, though endoscopic appearance of the mucosa was normal. - follow-up on final stool studies. - continue home Humira, allopurinol, and 6 MP. - continue home Colestid. - continue regular diet - follow-up with outpatient GI after discharge. Thank you for allowing me to participate in the care of your patient. GI will sign off at this time, but please do not hesitate to contact me for any concerns. Luke Jones MD Voice recognition software [employer] was used dictate and transcribe this document. Drill Operator Automatic variances may occur. Despite proofreading, typographical errors may occur. * Noreen Moura MD - 11/06/2022 9:05 AM CDT General Medicine Daily Progress SUBJECTIVE Patient is seen for follow-up of enteritis, acute cystitis and acute kidney injury. Has history of Crohn's disease Patient is seen examined today Sitting up comfortably in chair by his bedside. States he had 2 loose bowel movement overnight after colonoscopy. Tolerating regular consistency diet well Remains afebrile No overnight issues reported by nursing staff. OBJECTIVE Vitals: 24hr Min/Max: Temp Min: 36.2 ??C (97.2 ??F) Max: 36.9 ??C (98.4 ??F) Pulse Min: 53 Max: 83 BP Min: 103/73 Max: 143/84 Resp Min: 14 Max: 20 SpO2 Min: 96 % Max: 100 % Most Recent : Vitals: 05/08/23 0806 BP: 129/83 Pulse: 61 Resp: 16 Temp: 36.7 ??C (98 ??F) SpO2: 97% I/O last 2 completed shifts: In: 240 [P.O.:240] Out: 0 No intake/output data recorded. Physical Exam: General Exam: No acute distress, sitting up comfortably in chair Ears, Nose, Mouth, Throat: Ext. ears & nose normal, Moist mucous membranes Neck: Supple Cardiovascular: Normal range, Regular rhythm, S1S2 normal. ABSENT: Edema Respiratory: Effort is normal, no wheezing Abdomen: No tenderness, no rebound tenderness, no distension, bowel sounds present Neurological: No focal deficit Psychiatric: Affect appropriate, Alert Psychiatric - Orientation: Oriented to: Time, Place, Person Lab/Current Medication Review: Recent Results (from the past 24 hour(s)) CBC with auto differential Collection Time: 11/06/22 8:38 AM Result Value Ref Range WBC 5.2 3.8 - 9.9 K/cumm Hgb 13.8 13.0 - 17.5 g/dL Hct 40.5 38.9 - 50.3 % Plt 220 150 - 400 K/cumm MPV 10.4 9.1 - 12.3 fL RBC 4.06 (L) 4.30 - 5.80 M/cumm MCV 99.8 (H) 81.3 - 96.4 fL MCH 34.0 (H) 27.1 - 33.3 pg MCHC 34.1 32.3 - 35.7 g/dL RDW CV 13.2 11.1 - 14.9 % RDW SD 48.7 (H) 35.7 - 48.1 fL NRBC abs 0.00 0.00 - 0.01 K/cumm CT Abdomen Pelvis W Contrast Result Date: 11/02/2022 Narrative: EXAM DESCRIPTION: CT ABDOMEN PELVIS W CONTRAST REASON FOR STUDY: Abdominal pain, acute, nonlocalized Abdominal pain, acute, nonlocalized, back pain , Crohn's disease TECHNIQUE: CT scan of the abdomen and pelvis performed with intravenous and without oral contrast using helical scanning technique with dynamic intravenous contrast injection. Reconstructed coronal and sagittal MPR images reviewed. All images stored on PACS. Automated exposure control was used as a dose optimization technique for this examination. CONTRAST TYPE/DOSE: 92mL of IOHEXOL 350 MG IODINE/ML INTRAVENOUS SOLUTION injected COMPARISON: 02/06/2018 , 05/24/2018 REFERENCE: Per ACR white paper recommendations, unless otherwise specified no follow-up imaging is recommended for incidental renal and adrenal lesions per consensus recommendations based on imaging criteria. Further lab evaluation could be pursued based on clinical findings. FINDINGS: LOWER CHEST: Mild subsegmental atelectasis. Moderate-sized hiatal hernia. No pleural effusion. Imaged portions of the heart are normal. LIVER: Normal size. No identified cystic or solid masses. Mild diffuse hepatic steatosis. The hepatic and portal veins are patent.GALLBLADDER: Normal. BILE DUCTS: No intrahepatic or extrahepatic ductal dilatation. SPLEEN: Normal size. No focal lesions. PANCREAS: No identified cystic or solid masses. No significant calcifications. No adjacent inflammation or peripancreatic fluid collections. Pancreatic duct not dilated. ADRENALS: Normal. KIDNEYS/URINARY TRACT: No identified significant cystic or solid masses. No visualized stones. No hydronephrosis or hydroureter. Symmetric enhancement. Urinary bladder is unremarkable. GI:Moderate-sized hiatal hernia. The stomach is otherwise normal. There is mucosal hyperemia of several nondilated and fluid-filled loops of small bowel throughout the abdomen which could reflect early developing acute enteritis or reflect diarrhea state. Prior ileocecectomy with primary ileocolic anastomosis in the right lower quadrant. There is liquid stool within the ascending colon and majority of the transverse colon with mild mucosal hyperemia likely reflective of a rapid bowel transit statewith no definitive CT evidence of acute colitis at this time. There is no evidence of colonic or small bowel perforation. There is no evidence of fibro stenosis or bowel fistulization. PERITONEUM: Noascites or free air. There is geographic hyperattenuation of the mesenteric fat in the mid abdomen with associated prominent but nonenlarged mesenteric lymph nodes which could reflect mesenteric panniculitis in the appropriate clinical setting or sequela of mesenteric panniculitis. RETROPERITONEUM:No mass or adenopathy. REPRODUCTIVE: No significant abnormality. VASCULATURE: No abdominal aortic aneurysm. The abdominal aorta and its branches are patent. MUSCULOSKELETAL: No acute fractures or aggressive osseous lesions. No CT evidence of sacroiliitis OTHER: Small fat containing periumbilical ventral abdominal wall hernia. IMPRESSION: 1. History of Crohn's disease with prior ileocecectomy and primary ileocolic anastomosis in the right lower quadrant. 2. Mucosal hyperemia of several nondilated and fluid- filled loops of small bowel throughout the abdomen which could reflect early developing acute enteritis (either inflammatory or infectious in etiology), or reflect diarrhea state. Liquid stool within the ascending colon and majority of the transverse colon with mild mucosal hyperemia likely reflective of a rapid bowel transit state with no definitive CT evidence of acute colitis at this time. No colonic or small bowel perforation. No evidence of bowel fibrostenosis or bowel fistulization. THIS IS AN ELECTRONICALLY VERIFIED FINAL REPORT 11/02/2022 7:56 PM - Electronically signed by Lyubov Hudson M.D. AT T: Report ID: [id number] Reading Location: [id number] Current Facility-Administered Medications Medication Dose Route Frequency Provider Last Rate Last Admin acetaminophen (TYLENOL) tablet 650 mg 650 mg oral Q8H PRN Beatrice Jones MD 650 mg at 11/03/22 1002 adalimumab (HUMIRA (CF) PEN) 40 mg/0.4 mL injection 40 mg 40 mg subcutaneous Q7 Days Noreen Moura MD 40 mg at 11/04/22 1344 allopurinoL (ZYLOPRIM) tablet 100 mg 100 mg oral Daily Noreen Moura MD 100 mg at 11/05/2203 Carrier Fluids for Secondary Infusion - 0.9% Sodium Chloride 30 mL intravenous PRN Beatrice Jones MD colestipoL (COLESTID) tablet 1 g (PATIENT HOME SUPPLIED MEDICATION) 1 g oral QID PRN Luke Jones MD 1 g at 11/03/222037 enoxaparin (LOVENOX) syringe 40 mg 40 mg subcutaneous Daily-2099 Beatrice Jones MD 40 mg at 11/05/222034 folic acid (FOLVITE) tablet 1 mg 1 mg oral Daily Noreen Moura MD 1 mg at 11/05/22902 mercaptopurine (PURINETHOL) tablet 50 mg 50 mg oral Daily Noreen Moura MD 50 mg at 11/05/22902 metoclopramide (REGLAN) injection 10 mg 10 mg intravenous Q8H PRN Beatrice Jones MD ondansetron (ZOFRAN) injection 4 mg 4 mg intravenous Q6H PRN Beatrice Jones MD piperacillin-tazobactam (ZOSYN) 3.375 gram/115 mL in sodium chloride 0.9% (premix) 3.375 g 3.375 g intravenous Q8H [facility] Beatrice Jones MD 28.8 mL/hr at 11/06/22 0535 3.375 g at 11/06/22 0535 sodium chloride 0.9% infusion 50 mL/hr intravenous Continuous Noreen Moura MD 50 mL/hr at 11/05/22 1359 50 mL/hr at 11/05/22 1359 sodium chloride 0.9% infusion 30 mL/hr intravenous Continuous Luke Jones MD A/P: MDM Principal Problem: Abdominal pain Active Problems: Diarrhea due to malabsorption Enteritis Acute cystitis Acute kidney injury (CMS/HCC) (HCC) Resolved Problems: No resolved hospital problems. Assessment/plan: Acute enteritis: History of Crohn's disease: Abdominal pain has resolved. Continues to have diarrhea, frequency of loose stool has decreased. Continue IV Zosyn. Leukocytosis has resolved Blood culture: No growth to date C diff is negative Rotavirus antigen is negative Stool for ova and parasite: Pending Status post colonoscopy: Patent ileocolonic anastomosis characterized by 2 small ulcers without bleeding. Rectum/sigmoid colon/descending colon transfer and sending: Normal. Biopsies were obtained. Repeat ESR and CRP tomorrow morning. Stool culture: Culture result pending for Campylobacter spp., Aeromonas spp., and Yersinia spp. Home meds: Including Humira, mercaptopurine and p.r.n. colestipol has been resumed after discussionwith GI. CT abdomen at admission showing mucosal hyperemia of several non dilated fluid- filled loop of smallbowel throat abdomen which could reflect early acute enteritis either inflammatory infectious. Liquid stool within ascending colon. No colonic or small-bowel perforation. Acute kidney injury: Resolved Creatinine stable 0.7 Continue fluids given patient's ongoing diarrhea. Hyponatremia: Resolved 138 Continue to monitor repeat labs tomorrow morning Acute drop in hemoglobin: Hemoglobin remains stable 13.8 Continue to monitor hemoglobin hematocrit. Likely dilutional Will request stool for occult blood Monitor for any bleeding from any site. Acute cystitis: Ruled out Urine culture is not showing any significant bacterial growth. Continue IV antibiotic for enteritis Moderate complexity: [facility] Voice recognition software [employer] Direct was used dictate and transcribe this document. Drill Operator Automatic variances may occur. Despite proofreading, typographical errors may occur. For patients or family members viewing this note through [employer]: This note was written as a communication tool between healthcare providers and may contain technical language, terminology and abbreviations that is difficult to interpret without advanced medical training. If you have questions or concerns regarding what is written in this note, please request to speak with the primary medical team taking care of you or your family member. Noreen Moura MD 11/06/2022 9:05 AM * Noreen Moura MD - 11/05/2022 9:59 AM CDT General Medicine Daily Progress SUBJECTIVE Patient is seen for follow-up of enteritis, acute cystitis and acute kidney injury. Patient is seen examined today. Resting in bed. Abdominal pain has resolved. Continues to have diarrhea. Patient states that he had approximately small volume 10 loose stool during the day in 2 stool overnight. Patient is NPO Plan of colonoscopy this morning. OBJECTIVE Vitals: 24hr Min/Max: Temp Min: 36.3 ??C (97.4 ??F) Max: 36.8 ??C (98.2 ??F) Pulse Min: 65 Max: 79 BP Min: 123/78 Max: 143/84 Resp Min: 16 Max: 20 SpO2 Min: 95 % Max: 99 % Most Recent : Vitals: 11/05/22 0927 BP: 143/84 Pulse: Resp: Temp: SpO2: I/O last 2 completed shifts: In: 360 [P.O.:360] Out: - No intake/output data recorded. Physical Exam: General Exam: No acute distress Resting in bed Ears, Nose, Mouth, Throat: Ext. ears & nose normal, Moist mucous membranes Neck: Supple Cardiovascular: Normal range, Regular rhythm, S1S2 normal. ABSENT: Edema Respiratory: Effort is normal, no wheezing Abdomen: No tenderness, no rebound tenderness, no distension, bowel sounds present Neurological: No focal deficit Psychiatric: Affect appropriate, Alert Psychiatric - Orientation: Oriented to: Time, Place, Person Lab/Current Medication Review: Recent Results (from the past 24 hour(s)) Rotavirus antigen Stool Collection Time: 11/04/22 12:30 PM Specimen: Stool Result Value Ref Range Rotavirus Ag Negative Negative CRP (acute phase) Collection Time: 11/04/22 3:15 PM Result Value Ref Range CRP 91.2 (H) <=10.0 mg/L Erythrocyte sedimentation rate Collection Time: 11/04/22 3:15 PM Result Value Ref Range Erythrocyte sedimentation rate 32 (H) 1 - 15 mm/hr CBC with auto differential Collection Time: 11/05/22 6:22 AM Result Value Ref Range WBC 5.4 3.8 - 9.9 K/cumm Hgb 12.3 (L) 13.0 - 17.5 g/dL Hct 36.3 (L) 38.9 - 50.3 % Plt 190 150 - 400 K/cumm MPV 10.7 9.1 - 12.3 fL RBC 3.61 (L) 4.30 - 5.80 M/cumm MCV 100.6 (H) 81.3 - 96.4 fL MCH 34.1 (H) 27.1 - 33.3 pg MCHC 33.9 32.3 - 35.7 g/dL RDW CV 13.5 11.1 - 14.9 % RDW SD 50.2 (H) 35.7 - 48.1 fL NRBC abs 0.00 0.00 - 0.01 K/cumm Basic metabolic panel Collection Time: 11/05/22 6:22 AM Result Value Ref Range Sodium 138 135 - 145 mmol/L Potassium, pl 3.7 3.3 - 4.9 mmol/L Chloride 106 97 - 110 mmol/L CO2 19 (L) 22 - 32 mmol/L Anion gap 13 2 - 15 mmol/L BUN 10 8 - 25 mg/dL Creatinine 0.70 (L) 0.80 - 1.30 mg/dL Glucose 88 70 - 199 mg/dL Calcium 8.3 (L) 8.5 - 10.3 mg/dL Differential, auto Collection Time: 11/05/22 6:22 AM Result Value Ref Range Neutrophil abs 2.9 1.7 - 6.5 K/cumm Imm gran abs 0.0 0.0 - 0.1 K/cumm Lymphocyte abs 1.7 0.8 - 3.3 K/cumm Monocyte abs 0.6 0.2 - 0.8 K/cumm Eosinophil abs 0.1 0.0 - 0.5 K/cumm Basophil abs 0.0 0.0 - 0.1 K/cumm Neutrophil pct 54.5 % Imm gran pct 0.2 % Lymphocyte pct 31.8 % Monocyte pct 12.0 % Eosinophil pct 1.1 % Basophil pct 0.4 % eGFR Collection Time: 11/05/22 6:22 AM Result Value Ref Range eGFR 125 mL/min/1.[address] Abdomen Pelvis W Contrast Result Date: 11/02/2022 Narrative: EXAM DESCRIPTION: CT ABDOMEN PELVIS W CONTRAST REASON FOR STUDY: Abdominal pain, acute, nonlocalized Abdominal pain, acute, nonlocalized, back pain , Crohn's disease TECHNIQUE: CT scan of the abdomen and pelvis performed with intravenous and without oral contrast using helical scanning technique with dynamic intravenous contrast injection. Reconstructed coronal and sagittal MPR images reviewed. All images stored on PACS. Automated exposure control was used as a dose optimization technique for this examination. CONTRAST TYPE/DOSE: 92mL of IOHEXOL 350 MG IODINE/ML INTRAVENOUS SOLUTION injected COMPARISON: 02/06/2018 , 05/24/2018 REFERENCE: Per ACR white paper recommendations, unless otherwise specified no follow-up imaging is recommended for incidental renal and adrenal lesions per consensus recommendations based on imaging criteria. Further lab evaluation could be pursued based on clinical findings. FINDINGS: LOWER CHEST: Mild subsegmental atelectasis. Moderate-sized hiatalhernia. No pleural effusion. Imaged portions of the heart are normal. LIVER: Normal size. No identified cystic or solid masses. Mild diffuse hepatic steatosis. The hepatic and portal veins are patent. GALLBLADDER: Normal. BILE DUCTS: No intrahepatic or extrahepatic ductal dilatation. SPLEEN: Normalsize. No focal lesions. PANCREAS: No identified cystic or solid masses. No significant calcifications. No adjacent inflammation or peripancreatic fluid collections. Pancreatic duct not dilated. ADRENALS: Normal. KIDNEYS/URINARY TRACT: No identified significant cystic or solid masses. No visualized stones. No hydronephrosis or hydroureter. Symmetric enhancement. Urinary bladder is unremarkable. GI: Moderate-sized hiatal hernia. The stomach is otherwise normal. There is mucosal hyperemia of several nondilated and fluid-filled loops of small bowel throughout the abdomen which could reflect earlydeveloping acute enteritis or reflect diarrhea state. Prior ileocecectomy with primary ileocolic anastomosis in the right lower quadrant. There is liquid stool within the ascending colon and majorityof the transverse colon with mild mucosal hyperemia likely reflective of a rapid bowel transit state with no definitive CT evidence of acute colitis at this time. There is no evidence of colonic or small bowel perforation. There is no evidence of fibro stenosis or bowel fistulization. PERITONEUM: No ascites or free air. There is geographic hyperattenuation of the mesenteric fat in the mid abdomen with associated prominent but nonenlarged mesenteric lymph nodes which could reflect mesenteric panniculitis in the appropriate clinical setting or sequela of mesenteric panniculitis. RETROPERITONEUM: No mass or adenopathy. REPRODUCTIVE: No significant abnormality. VASCULATURE: No abdominal aortic aneurysm. The abdominal aorta and its branches are patent. MUSCULOSKELETAL: No acute fractures or aggressive osseous lesions. No CT evidence of sacroiliitis OTHER: Small fat containing periumbilical ventral abdominal wall hernia. IMPRESSION: 1. History of Crohn's disease with prior ileocecectomy and primary ileocolic anastomosis in the right lower quadrant. 2. Mucosal hyperemia of several nondilated and fluid-filled loops of small bowel throughout the abdomen which could reflect early developing acute enteritis (either inflammatory or infectious in etiology), or reflect diarrhea state. Liquidstool within the ascending colon and majority of the transverse colon with mild mucosal hyperemia likely reflective of a rapid bowel transit state with no definitive CT evidence of acute colitis at this time. No colonic or small bowel perforation. No evidence of bowel fibrostenosis or bowel fistulization. THIS IS AN ELECTRONICALLY VERIFIED FINAL REPORT 11/02/2022 7:56 PM - Electronically signed by Lyubov Hudson M.D. AT T: Report ID: [id number] ReadingLocation: [id number] Current Facility-Administered Medications Medication Dose Route Frequency Provider Last Rate Last Admin [AUG Hold] acetaminophen (TYLENOL) tablet 650 mg 650 mg oral Q8H PRN Beatrice Jones MD 650 mg at11/03/22 1002 [AUG Hold] adalimumab (HUMIRA (CF) PEN) 40 mg/0.4 mL injection 40 mg 40 mg subcutaneous Q7 Days Noreen Moura MD 40 mg at 11/04/22 1344 [AUG Hold] allopurinoL (ZYLOPRIM) tablet 100 mg 100 mg oral Daily Noreen Moura MD 100 mg at 11/05/22902 [AUG Hold] Carrier Fluids for Secondary Infusion - 0.9% Sodium Chloride 30 mL intravenous PRN Beatrice Jones MD Carrier Fluids for Secondary Infusion - 0.9% Sodium Chloride 30 mL intravenous PRN Luke Jones MD [AUG Hold] colestipoL (COLESTID) tablet 1 g (PATIENT HOME SUPPLIED MEDICATION) 1 g oral QID PRN Luke Jones MD 1 g at 11/03/222037 [AUG Hold] enoxaparin (LOVENOX) syringe 40 mg 40 mg subcutaneous Daily-[facility] Beatrice Jones MD 40mg at 11/04/222034 [AUG Hold] folic acid (FOLVITE) tablet 1 mg 1 mg oral Daily Noreen Moura MD 1 mg at 11/05/22902 [AUG Hold] mercaptopurine (PURINETHOL) tablet 50 mg 50 mg oral Daily Noreen Moura MD 50 mg at 11/05/22902 [AUG Hold] metoclopramide (REGLAN) injection 10 mg 10 mg intravenous Q8H PRN Beatrice Jones MD [AUG Hold] ondansetron (ZOFRAN) injection 4 mg 4 mg intravenous Q6H PRN Beatrice Jones MD [AUG Hold] piperacillin-tazobactam (ZOSYN) 3.375 gram/115 mL in sodium chloride 0.9% (premix) 3.375g 3.375 g intravenous Q8H Beatrice Nieves MD 28.8 mL/hr at 11/05/22 06 3.375 g at 11/05/22606 sodium chloride 0.9% flush 0.5-20 mL 0.5-20 mL intra-catheter Q8H Luke Nieves MD 10 mL at 11/05/22606 sodium chloride 0.9% flush 0.5-20 mL 0.5-20 mL intra-catheter PRLuke Hatch MD sodium chloride 0.9% infusion 50 mL/hr intravenous Continuous Noreen Moura MD 150 mL/hr at 11/05/22 0935 New Bag at 11/05/22 0935 sodium chloride 0.9% infusion 30 mL/hr intravenous Continuous Luke Jones MD A/P: TIMMY Principal Problem: Abdominal pain Active Problems: Diarrhea due to malabsorption Enteritis Acute cystitis Acute kidney injury (CMS/HCC) (HCC) Resolved Problems: No resolved hospital problems. Assessment/plan: Acute enteritis: History of Crohn's disease: Continue IV fluids Continue IV Zosyn. Leukocytosis resolved with white count of 5.4 Preliminary report Stool culture is negative so far. Rotavirus antigen is negative C diff is negative Cryptococcal antigen/ova and parasite is pending. CRP/ESR remains elevated 91.2, 32 respectively. Plan of colonoscopy this morning. Home meds: Including Humira, mercaptopurine and p.r.n. colestipol has been resumed after discussionwith GI. CT abdomen showing mucosal hyperemia of several non dilated fluid-filled loop of small bowel throatabdomen which could reflect early acute enteritis either inflammatory infectious. Liquid stool within ascending colon. No colonic or small-bowel perforation. Acute kidney injury: Resolved creatinine down to 0.7 Continue fluids given patient's ongoing diarrhea. Hyponatremia: Resolved 139 Continue to monitor repeat labs tomorrow morning Acute drop in hemoglobin: Hemoglobin remains stable 12.3 Continue to monitor hemoglobin hematocrit. Likely dilutional Will request stool for occult blood Monitor for any bleeding from any site. Acute cystitis: Ruled out Urine culture is not showing any significant bacterial growth. Continue IV antibiotic for enteritis Moderate complexity: [facility] Voice recognition software [employer] Direct was used dictate and transcribe this document. Drill Operator Automatic variances may occur. Despite proofreading, typographical errors may occur. For patients or family members viewing this note through [employer]: This note was written as a communication tool between healthcare providers and may contain technical language, terminology and abbreviations that is difficult to interpret without advanced medical training. If you have questions or concerns regarding what is written in this note, please request to speak with the primary medical team taking care of you or your family member. Noreen Moura MD 11/05/2022 9:59 AM * Luke Jones MD - 11/05/2022 9:58 AM CDT GI note Colonoscopy completed. Findings: The perianal and digital rectal examinations were normal. There was evidence of a prior ileo-colonic anastomosis in the ascending colon. This was patent and was characterized by two small ulcers without bleeding. The anastomosis was traversed. The jayna-terminal ileum appeared normal. Biopsies were taken with a cold forceps for histology. The rectum, sigmoid colon, descending colon, transverse colon and right colon appeared otherwise normal. Biopsies were taken with a cold forceps for histology. The retroflexed view of the distal rectum and anal verge was normal and showed no anal or rectal abnormalities. Impression: - Patent ileo-colonic anastomosis, characterized by two small ulcers without bleeding. - The examined portion of the ileum was normal. Biopsied. - The rectum, sigmoid colon, descending colon, transverse colon and ascending colon are normal. Biopsied. - The distal rectum and anal verge are normal on retroflexion view. Recommendation: - Return patient to [facility]. - Resume previous diet. - Await pathology results. - Follow up stool studies. The patient's diarrhea has slowly started improve. He actually had solid stool this morning. As theendoscopic appearance of the neoterminal ileum and colon appeared normal and improving diarrhea, wewill hold off on steroids at this time. * Luke Jones MD - 11/04/2022 1:06 PM CDT Gastroenterology Daily Progress Subjective Chief complaint of abdominal pain Interval History: Abdominal pain has nearly resolved. Still having watery diarrhea. Had 3 episodes of diarrhea overnight and 7 this morning. No fevers or chills. Objective Physical exam: General appearance: alert, cooperative, no distress. Eyes: no scleral icterus. HEENT: oral mucosa is moist and pink without noticeable ulcers. Cardiovascular: regular rate and rhythm, no murmurs, rubs, or gallops. Respiratory: breath sounds normal and symmetric; no crackles or wheezes. Abdomen/Gastrointestinal: soft, non-tender, non-distended, without mass, with normal bowel sounds. Musculoskeletal: no asymmetry or tenderness. Extremities: No cyanosis or edema. Neurological: No gross focal deficits noted. Skin: no rash or lesions. Lab/Radiology/Diagnostic Review: Laboratory review: Lab results in the last 12 hours: Recent Results (from the past 12 hour(s)) CBC with auto differential Collection Time: 11/04/22 3:15 AM Result Value Ref Range WBC 11.1 (H) 3.8 - 9.9 K/cumm Hgb 12.0 (L) 13.0 - 17.5 g/dL Hct 36.0 (L) 38.9 - 50.3 % Plt 163 150 - 400 K/cumm MPV 10.6 9.1 - 12.3 fL RBC 3.51 (L) 4.30 - 5.80 M/cumm MCV 102.6 (H) 81.3 - 96.4 fL MCH 34.2 (H) 27.1 - 33.3 pg MCHC 33.3 32.3 - 35.7 g/dL RDW CV 13.9 11.1 - 14.9 % RDW SD 52.7 (H) 35.7 - 48.1 fL NRBC abs 0.00 0.00 - 0.01 K/cumm Basic metabolic panel Collection Time: 11/04/22 3:15 AM Result Value Ref Range Sodium 139 135 - 145 mmol/L Potassium, pl 4.1 3.3 - 4.9 mmol/L Chloride 109 97 - 110 mmol/L CO2 20 (L) 22 - 32 mmol/L Anion gap 10 2 - 15 mmol/L BUN 15 8 - 25 mg/dL Creatinine 1.10 0.80 - 1.30 mg/dL Glucose 88 70 - 199 mg/dL Calcium 7.9 (L) 8.5 - 10.3 mg/dL Differential, auto Collection Time: 11/04/22 3:15 AM Result Value Ref Range Neutrophil abs 8.7 (H) 1.7 - 6.5 K/cumm Imm gran abs 0.1 0.0 - 0.1 K/cumm Lymphocyte abs 1.4 0.8 - 3.3 K/cumm Monocyte abs 0.9 (H) 0.2 - 0.8 K/cumm Eosinophil abs 0.0 0.0 - 0.5 K/cumm Basophil abs 0.0 0.0 - 0.1 K/cumm Neutrophil pct 78.8 % Imm gran pct 0.5 % Lymphocyte pct 12.4 % Monocyte pct 7.9 % Eosinophil pct 0.2 % Basophil pct 0.2 % eGFR Collection Time: 11/04/22 3:15 AM Result Value Ref Range eGFR 91 mL/min/1.73 m2 Vitals: 24hr Min/Max: Temp Min: 36.4 ??C (97.6 ??F) Max: 37.1 ??C (98.7 ??F) Pulse Min: 73 Max: 79 BP Min: 103/66 Max: 135/82 Resp Min: 16 Max: 18 SpO2 Min: 95 % Max: 100 % Most Recent : Vitals: 11/04/22 1145 BP: 135/82 Pulse: 73 Resp: 16 Temp: 36.4 ??C (97.6 ??F) SpO2: 96% I/O last 2 completed shifts: In: 1090 [P.O.:1080; I.V.:10] Out: 1 [Urine:1] No intake/output data recorded. Assessment/Plan Principal Problem: Abdominal pain Active Problems: Enteritis Acute cystitis Acute kidney injury (CMS/HCC) (HCC) 32-year-old male with a history significant for Crohn's disease status post ileocecal resection in 2018, on Humira, 6 MP, allopurinol. He follows with GI at [facility]. he presented to the emergency department with abdominal pain and diarrhea. Etiology of the patient's symptoms is unclear at this time. This may reflect an infectious etiology, though with the patient's history of inflammatory bowel disease, also considering a flare. CRP is elevated at 97 and ESR elevated at 32. Fecal calprotectin is pending. C diff testing was negative. Stool culture, Cryptosporidium and Giardia, ova and parasites are all pending. Of note, the patient's son recently had rotavirus. Rotavirus testing is pending. - follow-up on stool studies. - continue home Humira, allopurinol, and 6 MP. - continue home Colestid. - trend ESR and CRP. - please keep the patient NPO at midnight for possible flex sig/colonoscopy tomorrow pending the above results and patient's symptoms Luke Jones MD Voice recognition software [employer] was used dictate and transcribe this document. Drill Operator Automatic variances may occur. Despite proofreading, typographical errors may occur. * Noreen Moura MD - 11/04/2022 9:51 AM CDT General Medicine Daily Progress SUBJECTIVE Patient is seen for follow-up of enteritis, acute cystitis and acute kidney injury. Patient is seen examined today. He is resting in chair by his bedside. Denies any abdominal pain. Continues to have diarrhea. Had 3 loose/watery bowel movement overnight. Remains afebrile Appetite is fair He is tolerating liquid diet No overnight issues reported by nursing staff. OBJECTIVE Vitals: 24hr Min/Max: Temp Min: 36.6 ??C (97.9 ??F) Max: 37.1 ??C (98.7 ??F) Pulse Min: 73 Max: 79 BP Min: 103/66 Max: 119/77 Resp Min: 16 Max: 18 SpO2 Min: 95 % Max: 100 % Most Recent : Vitals: 11/04/22 0753 BP: 110/73 Pulse: 75 Resp: 18 Temp: 36.7 ??C (98.1 ??F) SpO2: 97% I/O last 2 completed shifts: In: 1090 [P.O.:1080; I.V.:10] Out: 1 [Urine:1] No intake/output data recorded. Physical Exam: General Exam: No acute distress Sitting up comfortably in chair by bedside Ears, Nose, Mouth, Throat: Ext. ears & nose normal, Moist mucous membranes Neck: Supple Cardiovascular: Normal range, Regular rhythm, S1S2 normal. ABSENT: Edema Respiratory: Effort is normal, no wheezing Abdomen: No tenderness, no rebound tenderness, no distension, bowel sounds present Neurological: No focal deficit Psychiatric: Affect appropriate, Alert Psychiatric - Orientation: Oriented to: Time, Place, Person Lab/Current Medication Review: Recent Results (from the past 24 hour(s)) C. difficile testing Stool Collection Time: 11/03/22 10:00 AM Specimen: Stool Result Value Ref Range C. diff result Negative, DNA Negative, DNA C. diff interp Negative for toxigenic Clostridioides (Clostridium) difficile. Analysis performed by detection of gene(s) encoding C. difficile toxin(s). The nucleic acid detection assay used is cleared by the [place] Food and Drug administration and its performance characteristics have been verified by the performing laboratory. CBC with auto differential Collection Time: 11/04/22 3:15 AM Result Value Ref Range WBC 11.1 (H) 3.8 - 9.9 K/cumm Hgb 12.0 (L) 13.0 - 17.5 g/dL Hct 36.0 (L) 38.9 - 50.3 % Plt 163 150 - 400 K/cumm MPV 10.6 9.1 - 12.3 fL RBC 3.51 (L) 4.30 - 5.80 M/cumm MCV 102.6 (H) 81.3 - 96.4 fL MCH 34.2 (H) 27.1 - 33.3 pg MCHC 33.3 32.3 - 35.7 g/dL RDW CV 13.9 11.1 - 14.9 % RDW SD 52.7 (H) 35.7 - 48.1 fL NRBC abs 0.00 0.00 - 0.01 K/cumm Basic metabolic panel Collection Time: 11/04/22 3:15 AM Result Value Ref Range Sodium 139 135 - 145 mmol/L Potassium, pl 4.1 3.3 - 4.9 mmol/L Chloride 109 97 - 110 mmol/L CO2 20 (L) 22 - 32 mmol/L Anion gap 10 2 - 15 mmol/L BUN 15 8 - 25 mg/dL Creatinine 1.10 0.80 - 1.30 mg/dL Glucose 88 70 - 199 mg/dL Calcium 7.9 (L) 8.5 - 10.3 mg/dL Differential, auto Collection Time: 11/04/22 3:15 AM Result Value Ref Range Neutrophil abs 8.7 (H) 1.7 - 6.5 K/cumm Imm gran abs 0.1 0.0 - 0.1 K/cumm Lymphocyte abs 1.4 0.8 - 3.3 K/cumm Monocyte abs 0.9 (H) 0.2 - 0.8 K/cumm Eosinophil abs 0.0 0.0 - 0.5 K/cumm Basophil abs 0.0 0.0 - 0.1 K/cumm Neutrophil pct 78.8 % Imm gran pct 0.5 % Lymphocyte pct 12.4 % Monocyte pct 7.9 % Eosinophil pct 0.2 % Basophil pct 0.2 % eGFR Collection Time: 11/04/22 3:15 AM Result Value Ref Range eGFR 91 mL/min/1.[address] Abdomen Pelvis W Contrast Result Date: 11/02/2022 Narrative: EXAM DESCRIPTION: CT ABDOMEN PELVIS W CONTRAST REASON FOR STUDY: Abdominal pain, acute, nonlocalized Abdominal pain, acute, nonlocalized, back pain , Crohn's disease TECHNIQUE: CT scan of the abdomen and pelvis performed with intravenous and without oral contrast using helical scanning technique with dynamic intravenous contrast injection. Reconstructed coronal and sagittal MPR images reviewed. All images stored on PACS. Automated exposure control was used as a dose optimization technique for this examination. CONTRAST TYPE/DOSE: 92mL of IOHEXOL 350 MG IODINE/ML INTRAVENOUS SOLUTION injected COMPARISON: 02/06/2018 , 05/24/2018 REFERENCE: Per ACR white paper recommendations, unless otherwise specified no follow-up imaging is recommended for incidental renal and adrenal lesions per consensus recommendations based on imaging criteria. Further lab evaluation could be pursued based on clinical findings. FINDINGS: LOWER CHEST: Mild subsegmental atelectasis. Moderate-sized hiatal hernia. No pleural effusion. Imaged portions of the heart are normal. LIVER: Normal size. No identified cystic or solid masses. Mild diffuse hepatic steatosis. The hepatic and portal veins are patent.GALLBLADDER: Normal. BILE DUCTS: No intrahepatic or extrahepatic ductal dilatation. SPLEEN: Normal size. No focal lesions. PANCREAS: No identified cystic or solid masses. No significant calcifications. No adjacent inflammation or peripancreatic fluid collections. Pancreatic duct not dilated. ADRENALS: Normal. KIDNEYS/URINARY TRACT: No identified significant cystic or solid masses. No visualized stones. No hydronephrosis or hydroureter. Symmetric enhancement. Urinary bladder is unremarkable. GI:Moderate-sized hiatal hernia. The stomach is otherwise normal. There is mucosal hyperemia of several nondilated and fluid-filled loops of small bowel throughout the abdomen which could reflect early developing acute enteritis or reflect diarrhea state. Prior ileocecectomy with primary ileocolic anastomosis in the right lower quadrant. There is liquid stool within the ascending colon and majority of the transverse colon with mild mucosal hyperemia likely reflective of a rapid bowel transit statewith no definitive CT evidence of acute colitis at this time. There is no evidence of colonic or small bowel perforation. There is no evidence of fibro stenosis or bowel fistulization. PERITONEUM: Noascites or free air. There is geographic hyperattenuation of the mesenteric fat in the mid abdomen with associated prominent but nonenlarged mesenteric lymph nodes which could reflect mesenteric panniculitis in the appropriate clinical setting or sequela of mesenteric panniculitis. RETROPERITONEUM:No mass or adenopathy. REPRODUCTIVE: No significant abnormality. VASCULATURE: No abdominal aortic aneurysm. The abdominal aorta and its branches are patent. MUSCULOSKELETAL: No acute fractures or aggressive osseous lesions. No CT evidence of sacroiliitis OTHER: Small fat containing periumbilical ventral abdominal wall hernia. IMPRESSION: 1. History of Crohn's disease with prior ileocecectomy andprimary ileocolic anastomosis in the right lower quadrant. 2. Mucosal hyperemia of several nondilated and fluid- filled loops of small bowel throughout the abdomen which could reflect early developingacute enteritis (either inflammatory or infectious in etiology), or reflect diarrhea state. Liquid stool within the ascending colon and majority of the transverse colon with mild mucosal hyperemia likely reflective of a rapid bowel transit state with no definitive CT evidence of acute colitis at this time. No colonic or small bowel perforation. No evidence of bowel fibrostenosis or bowel fistulization. THIS IS AN ELECTRONICALLY VERIFIED FINAL REPORT 11/02/2022 7:56 PM - Electronically signed by Lyubov Hudson M.D. AT T: Report ID: [id number] Reading Location: [id number] Current Facility-Administered Medications Medication Dose Route Frequency Provider Last Rate Last Admin acetaminophen (TYLENOL) tablet 650 mg 650 mg oral Q8H PRN Beatrice Jones MD 650 mg at 11/03/22 1002 Carrier Fluids for Secondary Infusion - 0.9% Sodium Chloride 30 mL intravenous PRN Beatrice Jones MD colestipoL (COLESTID) tablet 1 g (PATIENT HOME SUPPLIED MEDICATION) 1 g oral QID PRN Luke Jones MD 1 g at 11/03/222037 enoxaparin (LOVENOX) syringe 40 mg 40 mg subcutaneous Daily-2100 Beatrice Jones MD 40 mg at 11/03/222037 metoclopramide (REGLAN) injection 10 mg 10 mg intravenous Q8H PRN Beatrice Jones MD ondansetron (ZOFRAN) injection 4 mg 4 mg intravenous Q6H PRN Beatrice Jones MD piperacillin-tazobactam (ZOSYN) 3.375 gram/115 mL in sodium chloride 0.9% (premix) 3.375 g 3.375 g intravenous Q8H SHIVANI Beatrice Jones MD 28.8 mL/hr at 11/04/22 0540 3.375 g at 11/04/22 0540 sodium chloride 0.9% infusion 100 mL/hr intravenous Continuous Beatrice Jones MD 100 mL/hr at 11/04/22 0255 100 mL/hr at 11/04/22 0255 A/P: MDM Principal Problem: Abdominal pain Active Problems: Enteritis Acute cystitis Acute kidney injury (CMS/HCC) (HCC) Resolved Problems: No resolved hospital problems. Assessment/plan: Acute enteritis: History of Crohn's disease: Continue IV fluids Continue IV Zosyn Leukocytosis improved with white count down to 11.1. C diff is negative Cryptococcal antigen/ova and parasite is pending Stool culture is pending Rotavirus antigen requested ESR and CRP elevated: 32/97 respectively. Will advanced diet to regular consistency diet this morning. Appreciate GI recommendations CT abdomen showing mucosal hyperemia of several non dilated fluid-filled loop of small bowel throatabdomen which could reflect early acute enteritis either inflammatory infectious. Liquid stool within ascending colon. No colonic or small-bowel perforation. GI okay with patient resuming his Humira while inpatient. Requested patient to ask is family member to bring Humira to be administered while he is here in the hospital. Colestipol p.r.n. to be given for diarrhea has been resumed yesterday. Acute kidney injury: Resolved creatinine down to 1.1 Will decrease rate of IV fluids. Hyponatremia: Resolved 139 Continue to monitor repeat labs tomorrow morning Acute drop in hemoglobin: Hemoglobin remains stable as of yesterday Will 0.0 Continue to monitor hemoglobin hematocrit. Likely dilutional Will request stool for occult blood Monitor for any bleeding from any site. Acute cystitis: Ruled out Urine culture is not showing any significant bacterial growth. Continue IV antibiotic for enteritis Moderate complexity: [facility] Voice recognition software Tyto Fluency Direct was used dictate and transcribe this document. Drill Operator Automatic variances may occur. Despite proofreading, typographical errors may occur. For patients or family members viewing this note through [employer]-ZONEhart: This note was written as a communication tool between healthcare providers and may contain technical language, terminology and abbreviations that is difficult to interpret without advanced medical training. If you have questions or concerns regarding what is written in this note, please request to speak with the primary medical team taking care of you or your family member. Noreen Moura MD 11/04/2022 9:51 AM * Brian Ewing - 11/03/2022 11:02 AM CDT Pt very much appreciated the support and prayer. 11/03/22 1100 Time Spent Start Time 1101 Patient Spiritual Assessment Spirituality Assessed Yes Mormonism Affiliation [employer] Active in [facility] Spiritual Needs Prayer Clinical Encounter Type Visited With Patient Response Type Routine visit * Noreen Moura MD - 11/03/2022 9:24 AM CDT General Medicine Daily Progress SUBJECTIVE Patient is seen for follow-up of enteritis, acute cystitis and acute kidney injury. Patient is seen examined today Resting in bed Continues to have lower abdominal pain. Continues to have diarrhea. Had 3 episodes of loose bowel movement overnight. Denies any blood in the stool Denies any nausea vomiting T-max 100.2?? OBJECTIVE Vitals: 24hr Min/Max: Temp Min: 36.6 ??C (97.8 ??F) Max: 37.9 ??C (100.2 ??F) Pulse Min: 66 Max: 126 BP Min: 98/61 Max: 125/78 Resp Min: 16 Max: 37 SpO2 Min: 91 % Max: 100 % Most Recent : Vitals: 11/03/22 0744 BP: 98/61 Pulse: 66 Resp: 16 Temp: 36.7 ??C (98.1 ??F) SpO2: 98% I/O last 2 completed shifts: In: 2250 [P.O.:250; IV Piggyback:1999] Out: - No intake/output data recorded. Physical Exam: General Exam: In no acute distress Skin: Dry, Warm. ABSENT: Jaundice, Rash Head: Atraumatic, Normocephalic Ears, Nose, Mouth, Throat: Ext. ears & nose normal, Moist mucous membranes Neck: Supple Cardiovascular: Normal range, Regular rhythm, S1S2 normal. ABSENT: Edema Respiratory: CTA bilaterally, Effort normal, Decreased air movement. ABSENT: Crackles, Rhonchi Abdomen: Tenderness all across lower abdomen, no rebound tenderness, no distension, bowel sounds present Neurological: No focal deficit Psychiatric: Affect appropriate, Alert Psychiatric - Orientation: Oriented to: Time, Place, Person Lab/Current Medication Review: Recent Results (from the past 24 hour(s)) CBC with auto differential Collection Time: 11/02/22 4:49 PM Result Value Ref Range WBC 10.8 (H) 3.8 - 9.9 K/cumm Hgb 14.7 13.0 - 17.5 g/dL Hct 42.7 38.9 - 50.3 % Plt 199 150 - 400 K/cumm MPV 10.1 9.1 - 12.3 fL RBC 4.22 (L) 4.30 - 5.80 M/cumm MCV 101.2 (H) 81.3 - 96.4 fL MCH 34.8 (H) 27.1 - 33.3 pg MCHC 34.4 32.3 - 35.7 g/dL RDW CV 13.7 11.1 - 14.9 % RDW SD 50.8 (H) 35.7 - 48.1 fL NRBC abs 0.00 0.00 - 0.01 K/cumm Sepsis Lactate w/ Reflex Collection Time: 11/02/22 4:49 PM Result Value Ref Range Sepsis Lactate 1.5 0.7 - 2.0 mmol/L Differential, auto Collection Time: 11/02/22 4:49 PM Result Value Ref Range Neutrophil abs 9.2 (H) 1.7 - 6.5 K/cumm Imm gran abs 0.0 0.0 - 0.1 K/cumm Lymphocyte abs 0.6 (L) 0.8 - 3.3 K/cumm Monocyte abs 0.8 0.2 - 0.8 K/cumm Eosinophil abs 0.2 0.0 - 0.5 K/cumm Basophil abs 0.0 0.0 - 0.1 K/cumm Neutrophil pct 84.7 % Imm gran pct 0.3 % Lymphocyte pct 5.8 % Monocyte pct 7.1 % Eosinophil pct 1.7 % Basophil pct 0.4 % Comprehensive metabolic panel Collection Time: 11/02/22 5:18 PM Result Value Ref Range Sodium 133 (L) 135 - 145 mmol/L Potassium, pl 4.6 3.3 - 4.9 mmol/L Chloride 101 97 - 110 mmol/L CO2 19 (L) 22 - 32 mmol/L Anion gap 13 2 - 15 mmol/L BUN 20 8 - 25 mg/dL Creatinine 1.40 (H) 0.80 - 1.30 mg/dL Glucose 117 70 - 199 mg/dL Calcium 8.0 (L) 8.5 - 10.3 mg/dL Bilirubin, total 0.5 0.1 - 1.2 mg/dL Protein, pl 7.5 6.5 - 8.5 g/dL Albumin 4.2 3.5 - 5.0 g/dL Alk phos 74 40 - 130 Units/L ALT 27 7 - 55 Units/L AST 31 10 - 50 Units/L Lipase Collection Time: 11/02/22 5:18 PM Result Value Ref Range Lipase 21 10 - 99 Units/L eGFR Collection Time: 11/02/22 5:18 PM Result Value Ref Range eGFR 68 mL/min/1.73 m2 Phosphorus Collection Time: 11/02/22 5:18 PM Result Value Ref Range Phosphorus, pl 2.3 2.3 - 4.5 mg/dL Magnesium Collection Time: 11/02/22 5:18 PM Result Value Ref Range Magnesium 1.5 1.4 - 2.5 mg/dL Urinalysis reflex to microscopic and culture Urine Collection Time: 11/02/22 9:12 PM Specimen: Urine Result Value Ref Range Color, ur Reyna Yellow Clarity, ur Clear Clear Specific gravity, ur 1.035 (H) 1.003 - 1.030 pH, urine 5.0 Protein, ur ql 2+ (A) Negative Glucose, ur ql Negative Negative Ketones, ur Trace Negative Bilirubin, ur Negative Negative Blood, ur Negative Negative Urobilinogen, ur <2.0 <2.0 mg/dL Nitrite, ur Negative Negative Leukocyte esterase, ur Negative Negative UA reflex comment Reflex to microscopic UA will be performed. Urinalysis, microscopic only Collection Time: 11/02/22 9:12 PM Result Value Ref Range WBC, ur >50 (A) 0 - 5 /HPF RBC, ur 6-10 (A) 0 - 2 /HPF Epithelial cells, squamous, ur 1-5 0 - 5 /HPF Bacteria, ur Trace (A) Mucous, ur Present (A) Culture Reflex Comment Reflex to urine culture will be performed. CBC with auto differential Collection Time: 11/03/22 4:06 AM Result Value Ref Range WBC 16.0 (H) 3.8 - 9.9 K/cumm Hgb 12.3 (L) 13.0 - 17.5 g/dL Hct 36.3 (L) 38.9 - 50.3 % Plt 167 150 - 400 K/cumm MPV 10.3 9.1 - 12.3 fL RBC 3.54 (L) 4.30 - 5.80 M/cumm MCV 102.5 (H) 81.3 - 96.4 fL MCH 34.7 (H) 27.1 - 33.3 pg MCHC 33.9 32.3 - 35.7 g/dL RDW CV 13.6 11.1 - 14.9 % RDW SD 51.9 (H) 35.7 - 48.1 fL NRBC abs 0.00 0.00 - 0.01 K/cumm Basic metabolic panel Collection Time: 11/03/22 4:06 AM Result Value Ref Range Sodium 134 (L) 135 - 145 mmol/L Potassium, pl 4.0 3.3 - 4.9 mmol/L Chloride 104 97 - 110 mmol/L CO2 19 (L) 22 - 32 mmol/L Anion gap 11 2 - 15 mmol/L BUN 16 8 - 25 mg/dL Creatinine 1.20 0.80 - 1.30 mg/dL Glucose 149 70 - 199 mg/dL Calcium 8.0 (L) 8.5 - 10.3 mg/dL Lactate Collection Time: 11/03/22 4:06 AM Result Value Ref Range Lactate 1.4 0.7 - 2.0 mmol/L Differential, auto Collection Time: 11/03/22 4:06 AM Result Value Ref Range Neutrophil abs 14.7 (H) 1.7 - 6.5 K/cumm Imm gran abs 0.1 0.0 - 0.1 K/cumm Lymphocyte abs 0.5 (L) 0.8 - 3.3 K/cumm Monocyte abs 0.7 0.2 - 0.8 K/cumm Eosinophil abs 0.0 0.0 - 0.5 K/cumm Basophil abs 0.0 0.0 - 0.1 K/cumm Neutrophil pct 91.8 % Imm gran pct 0.6 % Lymphocyte pct 3.0 % Monocyte pct 4.4 % Eosinophil pct 0.0 % Basophil pct 0.2 % eGFR Collection Time: 11/03/22 4:06 AM Result Value Ref Range eGFR 82 mL/min/1.[address] Abdomen Pelvis W Contrast Result Date: 11/02/2022 Narrative: EXAM DESCRIPTION: CT ABDOMEN PELVIS W CONTRAST REASON FOR STUDY: Abdominal pain, acute, nonlocalized Abdominal pain, acute, nonlocalized, back pain , Crohn's disease TECHNIQUE: CT scan of the abdomen and pelvis performed with intravenous and without oral contrast using helical scanning technique with dynamic intravenous contrast injection. Reconstructed coronal and sagittal MPR images reviewed. All images stored on PACS. Automated exposure control was used as a dose optimization technique for this examination. CONTRAST TYPE/DOSE: 92mL of IOHEXOL 350 MG IODINE/ML INTRAVENOUS SOLUTION injected COMPARISON: 02/06/2018 , 05/24/2018 REFERENCE: Per ACR white paper recommendations, unless otherwise specified no follow-up imaging is recommended for incidental renal and adrenal lesions per consensus recommendations based on imaging criteria. Further lab evaluation could be pursued based on clinical findings. FINDINGS: LOWER CHEST: Mild subsegmental atelectasis. Moderate-sized hiatal hernia. No pleural effusion. Imaged portions of the heart are normal. LIVER: Normal size. No identified cystic or solid masses. Mild diffuse hepatic steatosis. The hepatic and portal veins are patent.GALLBLADDER: Normal. BILE DUCTS: No intrahepatic or extrahepatic ductal dilatation. SPLEEN: Normal size. No focal lesions. PANCREAS: No identified cystic or solid masses. No significant calcifications. No adjacent inflammation or peripancreatic fluid collections. Pancreatic duct not dilated. ADRENALS: Normal. KIDNEYS/URINARY TRACT: No identified significant cystic or solid masses. No visualized stones. No hydronephrosis or hydroureter. Symmetric enhancement. Urinary bladder is unremarkable. GI:Moderate-sized hiatal hernia. The stomach is otherwise normal. There is mucosal hyperemia of several nondilated and fluid-filled loops of small bowel throughout the abdomen which could reflect early developing acute enteritis or reflect diarrhea state. Prior ileocecectomy with primary ileocolic anastomosis in the right lower quadrant. There is liquid stool within the ascending colon and majority of the transverse colon with mild mucosal hyperemia likely reflective of a rapid bowel transit statewith no definitive CT evidence of acute colitis at this time. There is no evidence of colonic or small bowel perforation. There is no evidence of fibro stenosis or bowel fistulization. PERITONEUM: Noascites or free air. There is geographic hyperattenuation of the mesenteric fat in the mid abdomen with associated prominent but nonenlarged mesenteric lymph nodes which could reflect mesenteric panniculitis in the appropriate clinical setting or sequela of mesenteric panniculitis. RETROPERITONEUM:No mass or adenopathy. REPRODUCTIVE: No significant abnormality. VASCULATURE: No abdominal aortic aneurysm. The abdominal aorta and its branches are patent. MUSCULOSKELETAL: No acute fractures or aggressive osseous lesions. No CT evidence of sacroiliitis OTHER: Small fat containing periumbilical ventral abdominal wall hernia. IMPRESSION: 1. History of Crohn's disease with prior ileocecectomy and primary ileocolic anastomosis in the right lower quadrant. 2. Mucosal hyperemia of several nondilated and fluid- filled loops of small bowel throughout the abdomen which could reflect early developing acute enteritis (either inflammatory or infectious in etiology), or reflect diarrhea state. Liquid stool within the ascending colon and majority of the transverse colon with mild mucosal hyperemia likely reflective of a rapid bowel transit state with no definitive CT evidence of acute colitis at this time. No colonic or small bowel perforation. No evidence of bowel fibrostenosis or bowel fistulization. THIS IS AN ELECTRONICALLY VERIFIED FINAL REPORT 11/02/2022 7:56 PM - Electronically signed by Lyubov Hudson M.D. AT T: Report ID: [id number] Reading Location: [id number] Current Facility-Administered Medications Medication Dose Route Frequency Provider Last Rate Last Admin acetaminophen (TYLENOL) tablet 650 mg 650 mg oral Q8H PRN Beatrice Jones MD 650 mg at 11/02/22 2357 Carrier Fluids for Secondary Infusion - 0.9% Sodium Chloride 30 mL intravenous PRN Beatrice Jones MD enoxaparin (LOVENOX) syringe 40 mg 40 mg subcutaneous Daily-2100 Beatrice Jones MD metoclopramide (REGLAN) injection 10 mg 10 mg intravenous Q8H PRN Beatrice Jones MD ondansetron (ZOFRAN) injection 4 mg 4 mg intravenous Q6H PRN Beatrice Jones MD piperacillin-tazobactam (ZOSYN) 3.375 gram/115 mL in sodium chloride 0.9% (premix) 3.375 g 3.375 g intravenous Q8H SHIVANI Beatrice Jones MD 28.8 mL/hr at 11/03/22 0507 3.375 g at 11/03/22 0507 sodium chloride 0.9% infusion 100 mL/hr intravenous Continuous Beatrice Jones MD 100 mL/hr at 11/03/22 0228 100 mL/hr at 11/03/22 0228 A/P: MDM Principal Problem: Abdominal pain Active Problems: Enteritis Acute cystitis Acute kidney injury (CMS/HCC) (HCC) Resolved Problems: No resolved hospital problems. Assessment/plan: Acute enteritis: History of Crohn's disease: Continue IV fluids IV Zosyn Blood cultures pending Was given 1 time dose of IV steroids in the emergency room GI consultation has been requested for further evaluation. White count is trending up 16.0 this morning Will continue to trend white count. CT abdomen showing mucosal hyperemia of several non dilated fluid-filled loop of small bowel throatabdomen which could reflect early acute enteritis either inflammatory infectious. Liquid stool within ascending colon. No colonic or small-bowel perforation. Acute kidney injury: Serum creatinine down this morning Avoid nephrotoxin next Continue IV fluids Hyponatremia: Serum sodium level 134 improving Continue IV fluids Repeat labs tomorrow morning. Acute drop in hemoglobin: Hemoglobin down from 14 0.7-12.3. Likely dilutional Will request stool for occult blood Monitor for any bleeding from any site. Acute cystitis: Urine culture is pending Continue current IV antibiotics. Moderate complexity: MDM Voice recognition software Tyto Fluency Direct was used dictate and transcribe this document. Drill Operator Automatic variances may occur. Despite proofreading, typographical errors may occur. For patients or family members viewing this note through T-ZONEhart: This note was written as a communication tool between healthcare providers and may contain technical language, terminology and abbreviations that is difficult to interpret without advanced medical training. If you have questions or concerns regarding what is written in this note, please request to speak with the primary medical team taking care of you or your family member. Noreen Moura MD 11/03/2022 9:24 AM * Bessie Lezama RN - 11/02/2022 11:28 PM CDT Patient arrive to room 321 from emergency room at this time. documented in this encounter H&P Notes * Luke Jones MD - 11/05/2022 9:37 AM CDT Interval H & P I reviewed the patient's history and physical examination prior to the procedure, and there are no changes. * Beatrice Jones MD - 11/02/2022 11:28 PM CDT History and Physical Advance Care Planning A family meeting was held to discuss ongoing goals of care. Pt as requested full code Spent >16 min ( 21 minutes ) - [id number] PCP: Lanre Parekh DO Subjective abdominal pain HPI: Patient is a 32 y.o. male with chief complaint of severe abdominal pain. Patient indicates symptomshad begun over the last several days resulting in patient awake bloating and diarrhea symptoms. Bowel movements were noted having foul odor and mucus. Patient has also experienced darkened urine withdecreased urine frequency. Lower back pain has worsened over the past several days also noted by patient which is in a dull achy presentation. Patient indicates he has experienced low-grade fever chills and sweats. Patient has not experienced nausea vomiting symptoms. Palpitations and slight shortness of breath symptoms are also noted by patient. Home medication regimen includes recent restartingof MP 6 and several other Crohn's medications due to prescriptions having lapsed. Patient denies any recent antibiotic therapy. Past Medical History: Diagnosis Date Allergic rhinitis Anemia Crohn's disease (CMS/HCC) (HCC) 2004 GERD (gastroesophageal reflux disease) Iritis JALYN on CPAP Past Surgical History: Procedure Laterality Date OTHER SURGICAL HISTORY 12/2017 ileocecal resection VASECTOMY 2017 Medications Prior to Admission Medication Sig Dispense Refill Last Dose adalimumab (Humira,CF, Pen) 40 mg/0.4 mL pen injector kit Inject 0.4 mL (40 mg total) under the skin every 7 days Safety labs are required every 3 months for med refills, next labs due 09/2022 4 each 2 Past Week allopurinoL (ZYLOPRIM) 100 mg tablet Take 1 tablet (100 mg total) by mouth daily Safety labs required every 3 months, Next labs due today then December 2022 90 tablet 0 11/02/2022 at 0830 balsalazide (COLAZAL) 750 mg capsule Take 3 capsules three times daily. (Patient taking differently: Take 2 capsules three times daily.) 270 capsule 11 11/02/2022 at 0830 colestipoL (COLESTID) 1 gram tablet Take 1 tablet (1 g total) by mouth 4 (four) times a day as needed (loose stools) 120 tablet 11 11/02/2022 at 0830 docosahexaenoic acid-epa 120-180 mg capsule (Patient not taking: Reported on 05/30/2021) 11/02/2022 at 0830 ergocalciferol (VITAMIN D) 50,000 unit capsule TAKE ONE CAPSULE BY MOUTH EVERY 14 DAYS 25 capsule 3More than a month folic acid (FOLVITE) 1 mg tablet Take 1 tablet (1 mg total) by mouth daily 90 tablet 3 11/02/2022 at 0830 L.acid/L.casei/B.bif/B.raf/FOS (PROBIOTIC BLEND ORAL) Take 1 tablet by mouth daily 11/02/2022 at 0830 mercaptopurine (PURINETHOL) 50 mg tablet Take 1 tablet (50 mg total) by mouth daily Safety labs required every 3 months for med refills, next labs due today then December 2022. 90 tablet 0 11/02/2022 at 0830 multivitamin capsule Take 1 capsule by mouth every morning 11/02/2022 at 0830 sildenafiL (VIAGRA) 100 mg tablet Take 1/2 or 1 tablet ONE hour prior to activity on an empty stomach daily PRN 6 tablet 11 More than a month turmeric, bulk, 100 % powder Take 1,500 mg by mouth 11/02/2022 at 0830 Allergies Allergen Reactions Flagyl [Metronidazole] Other (See comments) Neuropathy Social History Tobacco Use Smoking status: Never Smokeless tobacco: Never Substance and Sexual Activity Drug use: Not Currently Types: Marijuana Sexual activity: Defer Alcohol Use: Unknown (01/23/2022) AUDIT-C Frequency of Alcohol Consumption: 2-3 times a week Average Number of Drinks: Not on file Frequency of Binge Drinking: Not on file Family History Problem Relation Age of Onset Hypertension Mother Family history of hypertension - (Added by TW Conv) Kidney failure Mother Family history of renal failure - (Added by TW Conv) Hypertension Father Family history of hypertension - (Added by TW Conv) Ulcerative colitis Mother's Sister Review of Systems: Review of systems per HPI and otherwise all other systems are negative Objective Vitals: Arrival Vitals [11/02/22 1635] Temp 37.5 ??C (99.5 ??F) Pulse 115 Resp 17 BP 111/75 SpO2 97 % Temp src Oral Heart Rate Source Pulse Oximetry Patient Position Sitting BP Location Right arm FiO2 (%) 24hr Min/Max: Temp Min: 37.5 ??C (99.5 ??F) Max: 37.9 ??C (100.2 ??F) Pulse Min: 109 Max: 126 BP Min: 109/66 Max: 125/78 Resp Min: 16 Max: 37 SpO2 Min: 91 % Max: 100 % Most Recent : Vitals: 11/02/22 2334 BP: Pulse: (!) 126 Resp: Temp: SpO2: No intake/output data recorded. I/O this shift: In: 1999 [IV Piggyback:1999] Out: - Physical exam: General Appearance: Alert, cooperative, no distress, appears stated age, well developed, well nourished Head: Normocephalic, without obvious abnormality, atraumatic Eyes: PERRL, conjunctiva/corneas clear, EOM's intact, fundi benign, both eyes, anicteric Ears: Normal TM's and external ear canals, both ears Nose: Nares normal, septum midline, mucosa normal, no drainage or sinus tenderness Throat: Lips, mucosa, and tongue normal; teeth and gums normal, mucous membranes moist Neck: Supple, symmetrical, trachea midline, no adenopathy; thyroid: No enlargement/tenderness/nodules; no carotid bruit or JVD Back: Symmetric, no curvature, ROM normal, no CVA tenderness Lungs: Clear to auscultation bilaterally, respirations unlabored Chest wall: No tenderness or deformity Cardiovascular: Rapid rate and rhythm, no murmurs Abdomen: Soft, positive bowel sounds, increased abdominal warmth noted, slight distention, no guarding Extremities: Extremities normal, atraumatic, no cyanosis or edema, no clubbing, slight tenderness to palpation lower lumbar spine bilaterally, no lesion Skin: Skin color, texture, turgor normal, no rashes, lesions or bruising Lymph nodes: Cervical, supraclavicular, and axillary nodes normal Neurologic: Alert & oriented x 4, CNII-XII intact. Normal strength, sensation and reflexes throughout Psychosocial: Normal affect and mood Lab/Radiology/Diagnostic Review: Laboratory review: Lab results in the last 24 hours: Recent Results (from the past 24 hour(s)) CBC with auto differential Collection Time: 11/02/22 4:49 PM Result Value Ref Range WBC 10.8 (H) 3.8 - 9.9 K/cumm Hgb 14.7 13.0 - 17.5 g/dL Hct 42.7 38.9 - 50.3 % Plt 199 150 - 400 K/cumm MPV 10.1 9.1 - 12.3 fL RBC 4.22 (L) 4.30 - 5.80 M/cumm MCV 101.2 (H) 81.3 - 96.4 fL MCH 34.8 (H) 27.1 - 33.3 pg MCHC 34.4 32.3 - 35.7 g/dL RDW CV 13.7 11.1 - 14.9 % RDW SD 50.8 (H) 35.7 - 48.1 fL NRBC abs 0.00 0.00 - 0.01 K/cumm Sepsis Lactate w/ Reflex Collection Time: 11/02/22 4:49 PM Result Value Ref Range Sepsis Lactate 1.5 0.7 - 2.0 mmol/L Differential, auto Collection Time: 11/02/22 4:49 PM Result Value Ref Range Neutrophil abs 9.2 (H) 1.7 - 6.5 K/cumm Imm gran abs 0.0 0.0 - 0.1 K/cumm Lymphocyte abs 0.6 (L) 0.8 - 3.3 K/cumm Monocyte abs 0.8 0.2 - 0.8 K/cumm Eosinophil abs 0.2 0.0 - 0.5 K/cumm Basophil abs 0.0 0.0 - 0.1 K/cumm Neutrophil pct 84.7 % Imm gran pct 0.3 % Lymphocyte pct 5.8 % Monocyte pct 7.1 % Eosinophil pct 1.7 % Basophil pct 0.4 % Comprehensive metabolic panel Collection Time: 11/02/22 5:18 PM Result Value Ref Range Sodium 133 (L) 135 - 145 mmol/L Potassium, pl 4.6 3.3 - 4.9 mmol/L Chloride 101 97 - 110 mmol/L CO2 19 (L) 22 - 32 mmol/L Anion gap 13 2 - 15 mmol/L BUN 20 8 - 25 mg/dL Creatinine 1.40 (H) 0.80 - 1.30 mg/dL Glucose 117 70 - 199 mg/dL Calcium 8.0 (L) 8.5 - 10.3 mg/dL Bilirubin, total 0.5 0.1 - 1.2 mg/dL Protein, pl 7.5 6.5 - 8.5 g/dL Albumin 4.2 3.5 - 5.0 g/dL Alk phos 74 40 - 130 Units/L ALT 27 7 - 55 Units/L AST 31 10 - 50 Units/L Lipase Collection Time: 11/02/22 5:18 PM Result Value Ref Range Lipase 21 10 - 99 Units/L eGFR Collection Time: 11/02/22 5:18 PM Result Value Ref Range eGFR 68 mL/min/1.73 m2 Phosphorus Collection Time: 11/02/22 5:18 PM Result Value Ref Range Phosphorus, pl 2.3 2.3 - 4.5 mg/dL Magnesium Collection Time: 11/02/22 5:18 PM Result Value Ref Range Magnesium 1.5 1.4 - 2.5 mg/dL Urinalysis reflex to microscopic and culture Urine Collection Time: 11/02/22 9:12 PM Specimen: Urine Result Value Ref Range Color, ur Reyna Yellow Clarity, ur Clear Clear Specific gravity, ur 1.035 (H) 1.003 - 1.030 pH, urine 5.0 Protein, ur ql 2+ (A) Negative Glucose, ur ql Negative Negative Ketones, ur Trace Negative Bilirubin, ur Negative Negative Blood, ur Negative Negative Urobilinogen, ur <2.0 <2.0 mg/dL Nitrite, ur Negative Negative Leukocyte esterase, ur Negative Negative UA reflex comment Reflex to microscopic UA will be performed. Urinalysis, microscopic only Collection Time: 11/02/22 9:12 PM Result Value Ref Range WBC, ur >50 (A) 0 - 5 /HPF RBC, ur 6-10 (A) 0 - 2 /HPF Epithelial cells, squamous, ur 1-5 0 - 5 /HPF Bacteria, ur Trace (A) Mucous, ur Present (A) Culture Reflex Comment Reflex to urine culture will be performed. , Cardiac Enzymes: No results found for: CKTOTAL, CKMB, CKMBINDEX, TROPONINT, TROPTHS, and POC Glucose: Lab Results Component Value Date GLUCOSE 117 11/02/2022 Imaging review: I have reviewed the result(s) CT abdomen pelvis with contrast: IMPRESSION: 1. History of Crohn's disease with prior ileocecectomy and primary ileocolic anastomosis in the right lower quadrant. 2. Mucosal hyperemia of several nondilated and fluid-filled loops of small bowel throughout the abdomen which could reflect early developing acute enteritis (either inflammatory or infectious in etiology), or reflect diarrhea state. Liquid stool within the ascending colon and majority of the transverse colon with mild mucosal hyperemia likely reflective of a rapid bowel transit state with no definitive CT evidence of acute colitis at this time. No colonic or small bowel perforation. No evidence of bowel fibrostenosis or bowel fistulization. ASSESSMENT/PLAN: Principal Problem: Abdominal pain Active Problems: Enteritis Acute cystitis Acute kidney injury (CMS/HCC) (HCC) Resolved Problems: No resolved hospital problems. Assessment /Plan Acute kidney injury (CMS/HCC) (HCC) Assessment & Plan Mild to moderate rise in BUN and creatinine levels from baseline noted IV fluid Pending re-evaluation of BUN and creatinine levels with a.m. labs Acute cystitis Assessment & Plan Minimal findings of urinary etiology: Darkened urine decreased urinary frequency, lower back pain IV fluid IV antibiotic as noted Pending follow-up of urine culture results Enteritis Assessment & Plan As seen on CT imaging IV antibiotic with Zosyn IV fluid Pain management p.r.n. Pending follow-up blood culture results Stool testing sent in ER---pending follow-up Gastroenterology consultation notified in ER Status post steroid x1 History of Crohn's disease Continuation of other Crohn's medications per GI recommendation MDM: MODERATE LOS: x>2 midnights DVT prophylaxis: Lovenox documented in this encounter Procedure Notes * Luke Jones MD - 11/05/2022 9:24 AM CDTAssociated Order(s): COLONOSCOPY [facility] GI ENDOSCOPY Patient Name: Nic Escalera Procedure Date: 11/05/2022 9:24 AM Date of : 1990 Admit Type: Inpatient Age: 32 Gender: Male Attending MD: uLke Jones MD Room: [facility] ENDOSCOPY ROOM 05 Note Status: Finalized Procedure: Colonoscopy Indications: Clinically significant diarrhea of unexplained origin, Personal history of Crohn's disease Referring MD: Providers: Luke Jones MD Medicines: Monitored Anesthesia Care Complications: No immediate complications. Estimated blood loss: Minimal. Estimated Blood Loss: Estimated blood loss was minimal. Procedure: Pre-Anesthesia Assessment: - Prior to the procedure, a History and Physical was performed, and patient medications and allergies were reviewed. The patient is competent. The risks and benefits of the procedure and the sedation options and risks were discussed with the patient. All questions were answered and informed consent was obtained. Patient identification and proposed procedure were verified by the physician and the nurse in the procedure room. Mental Status Examination: alert and oriented. Airway Examination: normal oropharyngeal airway and neck mobility. Respiratory Examination: clear to auscultation. CV Examination: normal. Prophylactic Antibiotics: The patient does not require prophylactic antibiotics. Prior Anticoagulants: The patient has taken no anticoagulant or antiplatelet agents. ASA Grade Assessment: II - A patient with mild systemic disease. After reviewing the risks and benefits, the patient was deemed in satisfactory condition to undergo the procedure. The anesthesia plan was to use monitored anesthesia care (MAC). Immediately prior to administration of medications, the patient was re-assessed for adequacy to receive sedatives. The heart rate, respiratory rate, oxygen saturations, blood pressure, adequacy of pulmonary ventilation, and response to care were monitored throughout the procedure. The physical status of the patient was re-assessed after the procedure. The benefits, risks and alternatives of the procedure and sedation were discussed and informed consent was obtained. All questions were answered. Please refer to the signed informed consent document in the medical record. The scope was passed under direct vision. The CF-H190L colonoscope was introduced through the anus and advanced to the ileocolonic anastomosis. The colonoscopy was performed without difficulty. The patient tolerated the procedure well. The quality of the bowel preparation was evaluated using the BBPS ([place] Bowel Preparation Scale) with scores of: Right Colon = 3, Transverse Colon = 3 and Left Colon = 3 (entire mucosa seen well with no residual staining, small fragments of stool or opaque liquid). The total BBPS score equals 9. The terminal ileum, ileocecal valve, appendiceal orifice, and rectum were photographed. Findings: The perianal and digital rectal examinations were normal. There was evidence of a prior ileo-colonic anastomosis in the ascending colon. This was patent and was characterized by two small ulcers without bleeding. The anastomosis was traversed. The jayna-terminal ileum appeared normal. Biopsies were taken with a cold forceps for histology. The rectum, sigmoid colon, descending colon, transverse colon and right colon appeared otherwise normal. Biopsies were taken with a cold forceps for histology. The retroflexed view of the distal rectum and anal verge was normal and showed no anal or rectal abnormalities. Impression: - Patent ileo-colonic anastomosis, characterized by two small ulcers without bleeding. - The examined portion of the ileum was normal. Biopsied. - The rectum, sigmoid colon, descending colon, transverse colon and ascending colon are normal. Biopsied. - The distal rectum and anal verge are normal on retroflexion view. Recommendation: - Return patient to [facility] for [facility] care. - Resume previous diet. - Await pathology results. - Follow up stool studies. Luke Jones M.D. Luke Jones MD 11/05/2022 9:56:32 AM . Number of Addenda: 0 Note Initiated On: 11/05/2022 9:24 AM Recognized by the [place] [employer] G[employer]intestinal [employer] for promoting quality in endoscopy documented in this encounter Consult Notes * Romana Brush NP - 11/03/2022 12:55 PM CDTAssociated Order(s): IP CONSULT TO GASTROENTEROLOGY Gastroenterology Consult Requesting Physician: Noreen Moura MD Reason for Consult: Crohn's. SUBJECTIVE: Patient is a 32 y.o. male with chief complaint of abdominal pain. HPI: Nic Escalera is a 32 y.o. male being seen in consult today for Crohn's. PMH of anemia, Crohn's disease, GERD, and JALYN on CPAP. History of ileocecal resection in 2018. Patient presented to the ED on 11/02/2022 with complaints generalized abdominal pain and nonbloody, malodorous, and mucoid diarrhea since the day prior. Patient was having 10+ stools per day, nausea, abdominal distention, chills, dizziness, headache, and overall discomfort. No vomiting. He also has been having joint pain.Currently on Humira and mercaptopurine. He has been out of his mercaptopurine for about 7 days[address] Follow[address] up with Dr. Quevedo at [facility]. contrast CT showed mucosal hyperemia of several nondilated fluid- filled loops of small bowel throughout the abdomen which could reflect early developing acute enteritis. Also, liquid stool within the ascending colon and majority of the transverse colon with mildmucosal hyperemia, likely reflective of a rapid bowel transit state. Primary ileocolic anastomosis in the right lower quadrant. He has had 20+ stools overnight. Denies blood in the stool. Lower abdominal cramping. Denies nauseaor vomiting. No joint pain today. Anticoagulant: Lovenox subQ. Last EGD: Been a while. Last colonoscopy: 01/23/2022. Patent and and ileocolonic anastomosis, characterized by erosion. Family history of gastric, pancreatic, or colon cancer: None. Past Medical History: Diagnosis Date Allergic rhinitis Anemia Crohn's disease (CMS/HCC) (HCC) 2004 GERD (gastroesophageal reflux disease) Iritis JALYN on CPAP Past Surgical History: Procedure Laterality Date OTHER SURGICAL HISTORY 12/2017 ileocecal resection VASECTOMY 2018 Medications Prior to Admission Medication Sig Dispense Refill Last Dose adalimumab (Humira,CF, Pen) 40 mg/0.4 mL pen injector kit Inject 0.4 mL (40 mg total) under the skin every 7 days Safety labs are required every 3 months for med refills, next labs due 09/2022 4 each 2 Past Week allopurinoL (ZYLOPRIM) 100 mg tablet Take 1 tablet (100 mg total) by mouth daily Safety labs required every 3 months, Next labs due today then December 2022 90 tablet 0 11/02/2022 at 0830 balsalazide (COLAZAL) 750 mg capsule Take 3 capsules three times daily. (Patient taking differently: Take 2 capsules three times daily.) 270 capsule 11 11/02/2022 at 0830 colestipoL (COLESTID) 1 gram tablet Take 1 tablet (1 g total) by mouth 4 (four) times a day as needed (loose stools) 120 tablet 11 11/02/2022 at 0830 docosahexaenoic acid-epa 120-180 mg capsule (Patient not taking: Reported on 05/30/2021) 11/02/2022 at 0830 ergocalciferol (VITAMIN D) 50,000 unit capsule TAKE ONE CAPSULE BY MOUTH EVERY 14 DAYS 25 capsule 3More than a month folic acid (FOLVITE) 1 mg tablet Take 1 tablet (1 mg total) by mouth daily 90 tablet 3 11/02/2022 at 0830 L.acid/L.casei/B.bif/B.raf/FOS (PROBIOTIC BLEND ORAL) Take 1 tablet by mouth daily 11/02/2022 at 0830 mercaptopurine (PURINETHOL) 50 mg tablet Take 1 tablet (50 mg total) by mouth daily Safety labs required every 3 months for med refills, next labs due today then December 2022. 90 tablet 0 11/02/2022 at 0830 multivitamin capsule Take 1 capsule by mouth every morning 11/02/2022 at 0830 sildenafiL (VIAGRA) 100 mg tablet Take 1/2 or 1 tablet ONE hour prior to activity on an empty stomach daily PRN 6 tablet 11 More than a month turmeric, bulk, 100 % powder Take 1,500 mg by mouth 11/02/2022 at 0830 Allergies Allergen Reactions Flagyl [Metronidazole] Other (See comments) Neuropathy Social History Tobacco Use Smoking status: Never Smokeless tobacco: Never Substance and Sexual Activity Drug use: Not Currently Types: Marijuana Sexual activity: Defer Alcohol Use: Unknown (01/23/2022) AUDIT-C Frequency of Alcohol Consumption: 2-3 times a week Average Number of Drinks: Not on file Frequency of Binge Drinking: Not on file Family History Problem Relation Age of Onset Hypertension Mother Family history of hypertension - (Added by TW Conv) Kidney failure Mother Family history of renal failure - (Added by TW Conv) Hypertension Father Family history of hypertension - (Added by TW Conv) Ulcerative colitis Mother's Sister Prior to Admission medications Medication Sig Start Date End Date Taking? Authorizing Provider adalimumab (Humira,CF, Pen) 40 mg/0.4 mL pen injector kit Inject 0.4 mL (40 mg total) under the skin every 7 days Safety labs are required every 3 months for med refills, next labs due 09/202208/22/22Eliana Quevedo MD allopurinoL (ZYLOPRIM) 100 mg tablet Take 1 tablet (100 mg total) by mouth daily Safety labs required every 3 months, Next labs due today then December 2022 10/31/22 01/29/23 Eliana Quevedo MD balsalazide (COLAZAL) 750 mg capsule Take 3 capsules three times daily. Patient taking differently: Take 2 capsules three times daily. 09/13/20 Eliana Quevedo MD colestipoL (COLESTID) 1 gram tablet Take 1 tablet (1 g total) by mouth 4 (four) times a day as needed (loose stools) 07/28/22 Eliana Quevedo MD docosahexaenoic acid-epa 120-180 mg capsule Ryan Shook MD ergocalciferol (VITAMIN D) 50,000 unit capsule TAKE ONE CAPSULE BY MOUTH EVERY 14 DAYS 11/07/21 Fernando Mckeon MD folic acid (FOLVITE) 1 mg tablet Take 1 tablet (1 mg total) by mouth daily 10/31/22 Eliana Quevedo MD L.acid/L.casei/B.bif/B.raf/FOS (PROBIOTIC BLEND ORAL) Take 1 tablet by mouth daily Ryan Shook MD mercaptopurine (PURINETHOL) 50 mg tablet Take 1 tablet (50 mg total) by mouth daily Safety labs required every 3 months for med refills, next labs due today then December 2022. 10/31/22 Eliana Quevedo MD multivitamin capsule Take 1 capsule by mouth every morning Ryan Shook MD sildenafiL (VIAGRA) 100 mg tablet Take 1/2 or 1 tablet ONE hour prior to activity on an empty stomach daily PRN 01/17/22 Simona Carrillo NP turmeric, bulk, 100 % powder Take 1,500 mg by mouth Ryan Shook MD Review of Systems Review of Systems Constitutional: Negative for chills and fever. HENT: Negative for trouble swallowing. Eyes: Negative for visual disturbance. Respiratory: Negative for cough and shortness of breath. Cardiovascular: Negative for chest pain. Gastrointestinal: Positive for abdominal pain, diarrhea, nausea and vomiting. Negative for abdominal distention, blood in stool and constipation. Skin: Negative for rash. Neurological: Negative for seizures. Psychiatric/Behavioral: The patient is not nervous/anxious. OBJECTIVE: Vitals: Most Recent : Vitals: 11/02/22 2334 11/03/22 0400 11/03/22 0744 11/03/22 1200 BP: 104/64 98/61 114/71 BP Location: Right arm Right arm Right arm Patient Position: Lying Lying Lying Pulse: (!) 126 79 66 78 Resp: 16 16 18 Temp: 36.6 ??C (97.8 ??F) 36.7 ??C (98.1 ??F) 36.8 ??C (98.3 ??F) TempSrc: Oral Oral Oral SpO2: 94% 98% 96% Weight: Height: Physical exam: Physical Exam Lab/Radiology/Diagnostic Review: Laboratory review: Lab results in the last 24 hours: Recent Results (from the past 24 hour(s)) CBC with auto differential Collection Time: 11/02/22 4:49 PM Result Value Ref Range WBC 10.8 (H) 3.8 - 9.9 K/cumm Hgb 14.7 13.0 - 17.5 g/dL Hct 42.7 38.9 - 50.3 % Plt 199 150 - 400 K/cumm MPV 10.1 9.1 - 12.3 fL RBC 4.22 (L) 4.30 - 5.80 M/cumm MCV 101.2 (H) 81.3 - 96.4 fL MCH 34.8 (H) 27.1 - 33.3 pg MCHC 34.4 32.3 - 35.7 g/dL RDW CV 13.7 11.1 - 14.9 % RDW SD 50.8 (H) 35.7 - 48.1 fL NRBC abs 0.00 0.00 - 0.01 K/cumm Sepsis Lactate w/ Reflex Collection Time: 11/02/22 4:49 PM Result Value Ref Range Sepsis Lactate 1.5 0.7 - 2.0 mmol/L Differential, auto Collection Time: 11/02/22 4:49 PM Result Value Ref Range Neutrophil abs 9.2 (H) 1.7 - 6.5 K/cumm Imm gran abs 0.0 0.0 - 0.1 K/cumm Lymphocyte abs 0.6 (L) 0.8 - 3.3 K/cumm Monocyte abs 0.8 0.2 - 0.8 K/cumm Eosinophil abs 0.2 0.0 - 0.5 K/cumm Basophil abs 0.0 0.0 - 0.1 K/cumm Neutrophil pct 84.7 % Imm gran pct 0.3 % Lymphocyte pct 5.8 % Monocyte pct 7.1 % Eosinophil pct 1.7 % Basophil pct 0.4 % Comprehensive metabolic panel Collection Time: 11/02/22 5:18 PM Result Value Ref Range Sodium 133 (L) 135 - 145 mmol/L Potassium, pl 4.6 3.3 - 4.9 mmol/L Chloride 101 97 - 110 mmol/L CO2 19 (L) 22 - 32 mmol/L Anion gap 13 2 - 15 mmol/L BUN 20 8 - 25 mg/dL Creatinine 1.40 (H) 0.80 - 1.30 mg/dL Glucose 117 70 - 199 mg/dL Calcium 8.0 (L) 8.5 - 10.3 mg/dL Bilirubin, total 0.5 0.1 - 1.2 mg/dL Protein, pl 7.5 6.5 - 8.5 g/dL Albumin 4.2 3.5 - 5.0 g/dL Alk phos 74 40 - 130 Units/L ALT 27 7 - 55 Units/L AST 31 10 - 50 Units/L Lipase Collection Time: 11/02/22 5:18 PM Result Value Ref Range Lipase 21 10 - 99 Units/L eGFR Collection Time: 11/02/22 5:18 PM Result Value Ref Range eGFR 68 mL/min/1.73 m2 Phosphorus Collection Time: 11/02/22 5:18 PM Result Value Ref Range Phosphorus, pl 2.3 2.3 - 4.5 mg/dL Magnesium Collection Time: 11/02/22 5:18 PM Result Value Ref Range Magnesium 1.5 1.4 - 2.5 mg/dL Urinalysis reflex to microscopic and culture Urine Collection Time: 11/02/22 9:12 PM Specimen: Urine Result Value Ref Range Color, ur Reyna Yellow Clarity, ur Clear Clear Specific gravity, ur 1.035 (H) 1.003 - 1.030 pH, urine 5.0 Protein, ur ql 2+ (A) Negative Glucose, ur ql Negative Negative Ketones, ur Trace Negative Bilirubin, ur Negative Negative Blood, ur Negative Negative Urobilinogen, ur <2.0 <2.0 mg/dL Nitrite, ur Negative Negative Leukocyte esterase, ur Negative Negative UA reflex comment Reflex to microscopic UA will be performed. Urinalysis, microscopic only Collection Time: 11/02/22 9:12 PM Result Value Ref Range WBC, ur >50 (A) 0 - 5 /HPF RBC, ur 6-10 (A) 0 - 2 /HPF Epithelial cells, squamous, ur 1-5 0 - 5 /HPF Bacteria, ur Trace (A) Mucous, ur Present (A) Culture Reflex Comment Reflex to urine culture will be performed. CBC with auto differential Collection Time: 11/03/22 4:06 AM Result Value Ref Range WBC 16.0 (H) 3.8 - 9.9 K/cumm Hgb 12.3 (L) 13.0 - 17.5 g/dL Hct 36.3 (L) 38.9 - 50.3 % Plt 167 150 - 400 K/cumm MPV 10.3 9.1 - 12.3 fL RBC 3.54 (L) 4.30 - 5.80 M/cumm MCV 102.5 (H) 81.3 - 96.4 fL MCH 34.7 (H) 27.1 - 33.3 pg MCHC 33.9 32.3 - 35.7 g/dL RDW CV 13.6 11.1 - 14.9 % RDW SD 51.9 (H) 35.7 - 48.1 fL NRBC abs 0.00 0.00 - 0.01 K/cumm Basic metabolic panel Collection Time: 11/03/22 4:06 AM Result Value Ref Range Sodium 134 (L) 135 - 145 mmol/L Potassium, pl 4.0 3.3 - 4.9 mmol/L Chloride 104 97 - 110 mmol/L CO2 19 (L) 22 - 32 mmol/L Anion gap 11 2 - 15 mmol/L BUN 16 8 - 25 mg/dL Creatinine 1.20 0.80 - 1.30 mg/dL Glucose 149 70 - 199 mg/dL Calcium 8.0 (L) 8.5 - 10.3 mg/dL Lactate Collection Time: 11/03/22 4:06 AM Result Value Ref Range Lactate 1.4 0.7 - 2.0 mmol/L Differential, auto Collection Time: 11/03/22 4:06 AM Result Value Ref Range Neutrophil abs 14.7 (H) 1.7 - 6.5 K/cumm Imm gran abs 0.1 0.0 - 0.1 K/cumm Lymphocyte abs 0.5 (L) 0.8 - 3.3 K/cumm Monocyte abs 0.7 0.2 - 0.8 K/cumm Eosinophil abs 0.0 0.0 - 0.5 K/cumm Basophil abs 0.0 0.0 - 0.1 K/cumm Neutrophil pct 91.8 % Imm gran pct 0.6 % Lymphocyte pct 3.0 % Monocyte pct 4.4 % Eosinophil pct 0.0 % Basophil pct 0.2 % eGFR Collection Time: 11/03/22 4:06 AM Result Value Ref Range eGFR 82 mL/min/1.73 m2 C. difficile testing Stool Collection Time: 11/03/22 10:00 AM Specimen: Stool Result Value Ref Range C. diff result Negative, DNA Negative, DNA C. diff interp Negative for toxigenic Clostridioides (Clostridium) difficile. Analysis performed by detection of gene(s) encoding C. difficile toxin(s). The nucleic acid detection assay used is cleared by the [place] Food and Drug administration and its performance characteristics have been verified by the performing laboratory. Vitals: BP 114/71 (BP Location: Right arm, Patient Position: Lying) Pulse 78 Temp 36.8 ??C (98.3 ??F) (Oral) Resp 18 Ht 172.7 cm (5' 8 ) Wt 89 kg (196 lb 3.2 oz) SpO2 96% BMI 29.83 kg/m?? ASSESSMENT/PLAN: Nic Escalera is a 32 y.o. male being seen in consult today for Crohn's. 1. Crohn's disease. Managed at home on mercaptopurine and weekly Humira injections, along with allopurinol. He is due for Humira injection today. He ran out of his mercaptopurine over a week ago. Stool is negative for C diff. Stool for O&P is pending, as is stool culture. T max last night was 100.2. He had a 1 time dose of IV steroids in the ER. - Reviewed CBC and CMP. Largely unchanged from yesterday, although creatinine has improved. WBC 16.0 and hemoglobin 12.3. - Will continue to follow stool studies. - Continue Zosyn. - Continue Lovenox. - Will hold on steroids. Contacted Dr. Quevedo's office and felt symptoms were likely not relatedto Crohn's flare. - If symptoms do not improve, consider endoscopic evaluation with biopsies for CMV. Romana Brush, MSN, MASTER CONTROL ENGINEER, INDUSTRIAL AUTOMATION ENGINEER- Family Nurse Practitioner [facility] Voice recognition software [employer] was used dictate and transcribe this document. Drill Operator Automatic variances may occur. Despite proofreading, typographical errors may occur. Cosigned by Luke Jones MD at 11/03/2022 4:37 PM CDT documented in this encounter Nursing Notes * Anne Phan RN - 11/05/2022 8:47 AM CDT Patient had soft formed brown stools. Enema x 3 bags given. Noted yellowish watery with flex of stools noted . Patient is going to GI lab for Colonoscopy. documented in this encounter ED Notes * Nelia Quezada PA - 11/02/2022 8:39 PM CDT CHIEF COMPLAINT: Chief Complaint Patient presents with ??? Diarrhea ??? Abdominal Pain HPI 10:16 PM Nic Escalera is a 32 y.o. male w/ PMH of Crohn's s/p ileocectomy in 2018 presenting to the ED c/o generalized abdominal pain and non- bloody diarrhea since yesterday 1700. Patient has had 10+ stools per day. Pt has been eating and drinking very little. Reports nausea w/o vomiting, abdominal distention, chills, dizziness, KING, and overall discomfort. Pt reports this feels similar to prior Crohn's flares is he has also been having some joint pain. Has not had a flare since before his ileocectomy. Last steroid use was 5+ years ago. Currently maintained on Humira, mercaptupurine, and allopurinol. Patient has been out of his mercaptopurine for 6+ days which he believes threw him into a Crohn's flare. Follows with Dr. Quevedo at [facility]. He also admits to dark urine but no otherurinary sx. Denies chest pain, shortness of breath. History provided by pt and pt's PCP: Lanre Parekh, DO PAST MEDICAL HISTORY Past Medical History: Diagnosis Date ??? Allergic rhinitis ??? Anemia ??? Crohn's disease (CMS/HCC) (HCC) 2004 ??? GERD (gastroesophageal reflux disease) ??? Iritis ??? JALYN on CPAP PAST SURGICAL HISTORY Past Surgical History: Procedure Laterality Date ??? OTHER SURGICAL HISTORY 12/2017 ileocecal resection ??? VASECTOMY 2017 FAMILY HISTORY Family History Problem Relation Age of Onset ??? Hypertension Mother Family history of hypertension - (Added by TW Conv) ??? Kidney failure Mother Family history of renal failure - (Added by TW Conv) ??? Hypertension Father Family history of hypertension - (Added by TW Conv) ??? Ulcerative colitis Mother's Sister MEDICATIONS GIVEN IN THE ED Medications calcium gluconate 1 g/50 mL in sodium chloride (premix) solution 1 g (1 g intravenous New Bag 11/02/222153) piperacillin-tazobactam (ZOSYN) 4.5 g in sodium chloride 0.9% 100 mL IVPB (has no administration intime range) sodium chloride 0.9% bolus 1,000 mL (0 mL intravenous Stopped 11/02/221947) iohexoL (OMNIPAQUE) 350 mg iodine/mL injection solution 100 mL (92 mL intravenous Contrast Given 11/02/221910) sodium chloride 0.9% bolus 1,000 mL (0 mL intravenous Stopped 11/02/222107) ondansetron (ZOFRAN) injection 4 mg (4 mg intravenous Given 11/02/222051) methylPREDNISolone sodium succinate (SOLU-medrol) preservative free injection 125 mg (125 mg intravenous Given 11/02/222053) HYDROmorphone (DILAUDID) injection 0.2 mg (0.2 mg intravenous Given 11/02/222051) CURRENT HOME MEDICATIONS Current Facility-Administered Medications: ??? calcium gluconate 1 g/50 mL in sodium chloride (premix) solution 1 g, 1 g, intravenous, Once, Nelia Quezada PA, 1 g at 11/02/222153 ??? piperacillin-tazobactam (ZOSYN) 4.5 g in sodium chloride 0.9% 100 mL IVPB, 4.5 g, intravenous, Once, Nelia Quezada PA Current Outpatient Medications: ??? adalimumab (Humira,CF, Pen) 40 mg/0.4 mL pen injector kit, Inject 0.4 mL (40 mg total) under the skin every 7 days Safety labs are required every 3 months for med refills, next labs due 09/2022, Disp: 4 each, Rfl: 2 ??? allopurinoL (ZYLOPRIM) 100 mg tablet, Take 1 tablet (100 mg total) by mouth daily Safety labs required every 3 months, Next labs due today then December 2022, Disp: 90 tablet, Rfl: 0 ??? balsalazide (COLAZAL) 750 mg capsule, Take 3 capsules three times daily. (Patient taking differently: Take 2 capsules three times daily.), Disp: 270 capsule, Rfl: 11 ??? colestipoL (COLESTID) 1 gram tablet, Take 1 tablet (1 g total) by mouth 4 (four) times a day asneeded (loose stools), Disp: 120 tablet, Rfl: 11 ??? docosahexaenoic acid-epa 120-180 mg capsule, , Disp: , Rfl: ??? ergocalciferol (VITAMIN D) 50,000 unit capsule, TAKE ONE CAPSULE BY MOUTH EVERY 14 DAYS, Disp: 25 capsule, Rfl: 3 ??? folic acid (FOLVITE) 1 mg tablet, Take 1 tablet (1 mg total) by mouth daily, Disp: 90 tablet, Rfl: 3 ??? L.acid/L.casei/B.bif/B.raf/FOS (PROBIOTIC BLEND ORAL), Take 1 tablet by mouth daily, Disp: , Rfl: ??? mercaptopurine (PURINETHOL) 50 mg tablet, Take 1 tablet (50 mg total) by mouth daily Safety labs required every 3 months for med refills, next labs due today then December 2022., Disp: 90 tablet, Rfl: 0 ??? multivitamin capsule, Take 1 capsule by mouth every morning, Disp: , Rfl: ??? sildenafiL (VIAGRA) 100 mg tablet, Take 1/2 or 1 tablet ONE hour prior to activity on an empty stomach daily PRN, Disp: 6 tablet, Rfl: 11 ??? turmeric, bulk, 100 % powder, Take 1,500 mg by mouth, Disp: , Rfl: ALLERGIES Allergies Allergen Reactions ??? Flagyl [Metronidazole] Other (See comments) Neuropathy SOCIAL HISTORY Social History Tobacco Use ??? Smoking status: Never ??? Smokeless tobacco: Never Substance and Sexual Activity ??? Drug use: Not Currently Types: Marijuana ??? Sexual activity: Defer Alcohol Use: Unknown (01/23/2022) AUDIT-C ??? Frequency of Alcohol Consumption: 2-3 times a week ??? Average Number of Drinks: Not on file ??? Frequency of Binge Drinking: Not on file PHYSICAL EXAM TRIAGE VITAL SIGNS: ED Triage Vitals [11/02/22 1635] Temp Pulse Resp BP SpO2 37.5 ??C (99.5 ??F) 115 17 111/75 97 % Temp src Heart Rate Source Patient Position BP Location FiO2 (%) Oral Pulse Oximetry Sitting Right arm -- Height Height Method Weight Weight Method 1.727 m (5' 8 ) Stated 83.9 kg (185 lb) Stated Physical Exam Vitals and nursing note reviewed. Constitutional: General: He is not in acute distress. Appearance: He is well-developed and normal weight. He is ill-appearing. He is not toxic-appearing. HENT: Head: Normocephalic and atraumatic. Nose: Nose normal. Mouth/Throat: Mouth: Mucous membranes are moist. Pharynx: Oropharynx is clear. No oropharyngeal exudate or posterior oropharyngeal erythema. Eyes: General: No scleral icterus. Right eye: No discharge. Left eye: No discharge. Extraocular Movements: Extraocular movements intact. Conjunctiva/sclera: Conjunctivae normal. Cardiovascular: Rate and Rhythm: Regular rhythm. Tachycardia present. Heart sounds: Normal heart sounds. No murmur heard. No friction rub. No gallop. Pulmonary: Effort: Pulmonary effort is normal. No respiratory distress. Breath sounds: Normal breath sounds. No wheezing or rhonchi. Chest: Chest wall: No tenderness. Abdominal: General: Abdomen is flat and protuberant. Bowel sounds are normal. Palpations: Abdomen is soft. Tenderness: There is generalized abdominal tenderness. There is no right CVA tenderness, guarding or rebound. Negative signs include Lindsey's sign. Musculoskeletal: General: Normal range of motion. Cervical back: Normal range of motion and neck supple. No rigidity or tenderness. Right lower leg: No edema. Left lower leg: No edema. Lymphadenopathy: Cervical: No cervical adenopathy. Skin: General: Skin is warm and dry. Capillary Refill: Capillary refill takes less than 2 seconds. Neurological: Mental Status: He is alert and oriented to person, place, and time. Psychiatric: Mood and Affect: Mood normal. Behavior: Behavior normal. Behavior is cooperative. LABS Labs Reviewed URINALYSIS AND REFLEX TO MICROSCOPIC AND CULTURE - Abnormal Result Value Color, ur Reyna Clarity, ur Clear Specific gravity, ur 1.035 (*) pH, urine 5.0 Protein, ur ql 2+ (*) Glucose, ur ql Negative Ketones, ur Trace Bilirubin, ur Negative Blood, ur Negative Urobilinogen, ur <2.0 Nitrite, ur Negative Leukocyte esterase, ur Negative UA reflex comment Reflex to microscopic UA will be performed. Narrative: Urine pH is affected by diet, medications, systemic acid-base disturbances, and renal tubular function. pH may affect urinary stone formation. For example, urine pH below 6.0 may help reduce the tendency for calcium phosphate stones and pH greater than 6.0 may reduce the tendency for uric acid stone formation. Source: [facility] in2nite.Last revised 07-12-2017 CBC WITH AUTO DIFFERENTIAL - Abnormal WBC 10.8 (*) Hgb 14.7 Hct 42.7 Plt 199 MPV 10.1 RBC 4.22 (*) MCV 101.2 (*) MCH 34.8 (*) MCHC 34.4 RDW CV 13.7 RDW SD 50.8 (*) NRBC abs 0.00 DIFFERENTIAL AUTO - Abnormal Neutrophil abs 9.2 (*) Imm gran abs 0.0 Lymphocyte abs 0.6 (*) Monocyte abs 0.8 Eosinophil abs 0.2 Basophil abs 0.0 Neutrophil pct 84.7 Imm gran pct 0.3 Lymphocyte pct 5.8 Monocyte pct 7.1 Eosinophil pct 1.7 Basophil pct 0.4 COMPREHENSIVE METABOLIC PANEL - Abnormal Sodium 133 (*) Potassium, pl 4.6 Chloride 101 CO2 19 (*) Anion gap 13 BUN 20 Creatinine 1.40 (*) Glucose 117 Calcium 8.0 (*) Bilirubin, total 0.5 Protein, pl 7.5 Albumin 4.2 Alk phos 74 ALT 27 AST 31 URINALYSIS, MICROSCOPIC ONLY - Abnormal WBC, ur >50 (*) RBC, ur 6-10 (*) Epithelial cells, squamous, ur 1-5 Bacteria, ur Trace (*) Mucous, ur Present (*) Culture Reflex Comment Reflex to urine culture will be performed. STOOL CULTURE C. DIFFICILE TESTING URINE CULTURE OVA AND PARASITE EXAMINATION BLOOD CULTURE BLOOD CULTURE SEPSIS LACTATE WITH REFLEX Sepsis Lactate 1.5 LIPASE Lipase 21 EGFR eGFR 68 PHOSPHORUS Phosphorus, pl 2.3 MAGNESIUM Magnesium 1.[address] Abdomen Pelvis W Contrast Result Date: 11/02/2022 Narrative: EXAM DESCRIPTION: CT ABDOMEN PELVIS W CONTRAST REASON FOR STUDY: Abdominal pain, acute, nonlocalized Abdominal pain, acute, nonlocalized, back pain , Crohn's disease TECHNIQUE: CT scan of the abdomen and pelvis performed with intravenous and without oral contrast using helical scanning technique with dynamic intravenous contrast injection. Reconstructed coronal and sagittal MPR images reviewed. All images stored on PACS. Automated exposure control was used as a dose optimization technique for this examination. CONTRAST TYPE/DOSE: 92mL of IOHEXOL 350 MG IODINE/ML INTRAVENOUS SOLUTION injected COMPARISON: 02/06/2018 , 05/24/2018 REFERENCE: Per ACR white paper recommendations, unless otherwise specified no follow-up imaging is recommended for incidental renal and adrenal lesions per consensus recommendations based on imaging criteria. Further lab evaluation could be pursued based on clinical findings. FINDINGS: LOWER CHEST: Mild subsegmental atelectasis. Moderate-sized hiatal hernia. No pleural effusion. Imaged portions of the heart are normal. LIVER: Normal size. No identified cystic or solid masses. Mild diffuse hepatic steatosis. The hepatic and portal veins are patent.GALLBLADDER: Normal. BILE DUCTS: No intrahepatic or extrahepatic ductal dilatation. SPLEEN: Normal size. No focal lesions. PANCREAS: No identified cystic or solid masses. No significant calcifications. No adjacent inflammation or peripancreatic fluid collections. Pancreatic duct not dilated. ADRENALS: Normal. KIDNEYS/URINARY TRACT: No identified significant cystic or solid masses. No visualized stones. No hydronephrosis or hydroureter. Symmetric enhancement. Urinary bladder is unremarkable. GI:Moderate-sized hiatal hernia. The stomach is otherwise normal. There is mucosal hyperemia of several nondilated and fluid-filled loops of small bowel throughout the abdomen which could reflect early developing acute enteritis or reflect diarrhea state. Prior ileocecectomy with primary ileocolic anastomosis in the right lower quadrant. There is liquid stool within the ascending colon and majority of the transverse colon with mild mucosal hyperemia likely reflective of a rapid bowel transit statewith no definitive CT evidence of acute colitis at this time. There is no evidence of colonic or small bowel perforation. There is no evidence of fibro stenosis or bowel fistulization. PERITONEUM: Noascites or free air. There is geographic hyperattenuation of the mesenteric fat in the mid abdomen with associated prominent but nonenlarged mesenteric lymph nodes which could reflect mesenteric panniculitis in the appropriate clinical setting or sequela of mesenteric panniculitis. RETROPERITONEUM:No mass or adenopathy. REPRODUCTIVE: No significant abnormality. VASCULATURE: No abdominal aortic aneurysm. The abdominal aorta and its branches are patent. MUSCULOSKELETAL: No acute fractures or aggressive osseous lesions. No CT evidence of sacroiliitis OTHER: Small fat containing periumbilical ventral abdominal wall hernia. IMPRESSION: 1. History of Crohn's disease with prior ileocecectomy and primary ileocolic anastomosis in the right lower quadrant. 2. Mucosal hyperemia of several nondilated and fluid- filled loops of small bowel throughout the abdomen which could reflect early developing acute enteritis (either inflammatory or infectious in etiology), or reflect diarrhea state. Liquid stool within the ascending colon and majority of the transverse colon with mild mucosal hyperemia likely reflective of a rapid bowel transit state with no definitive CT evidence of acute colitis at this time. No colonic or small bowel perforation. No evidence of bowel fibrostenosis or bowel fistulization. THIS IS AN ELECTRONICALLY VERIFIED FINAL REPORT 11/02/2022 7:56 PM - Electronically signed by Lyubov Hudson M.D. AT T: Report ID: [id number] Reading Location: [id number] ED COURSE/MEDICAL DECISION MAKING Differential diagnosis included but not limited to Crohn's flare, colonic fistula, abdominal abscess, gastroenteritis, umbilical hernia, other Patient's medical records were reviewed. I discussed management or test interpretation with the following outside physician, caregiver, longterm staff: GI, Dr. Jones ED Course as of 11/02/222215 Time: 11/02 2106 Comment: Call to the hospitalist. By: Nelia Quezada PA Time: 11/03 2111 Comment: The patient is feeling better with Dilaudid, steroids and Zofran. The patient is low calcium. Corrected ionized calcium is 7.8. Will give patient 1 g of calcium IV. Patient has HERMELINDO. Patient given 2 L of fluid in the emergency department. By: Nelia Quezada PA Time: 11/02 2213 Comment: Dr. Robert MORA. Discussed patient case. Will see patient in the morning. Will order stool cultures, ova and parasites and C diff testing. No recommendations at this time. By: Nelia Quezada PA Time: 11/02 2213 Comment: Spoke with Dr. Robert hughes. Accepts patient for admission at this time. Will order blood cultures, start Zosyn. Accepts patient for admission to the hospital. By: Nelia Quezada PA Time: 11/02 2214 Comment: Of note per telephone encounter with patient's GI doctor Dr. Quevedo today of [facility] recommend getting C diff culture and O and P. By: Nelia Quezada PA Procedures FINAL IMPRESSION Abdominal pain Diarrhea, unspecified type History of Crohn's disease Hypocalcemia HERMELINDO (acute kidney injury) (CMS/HCC) ([facility]) DISPOSITION: Admit This examination was transcribed using the [employer] voice recognition system without human grain mill worker. In an effort to expedite patient care, this report has not been adjusted for typographical, grammatical, and syntax by a trained biomedical instrument technician. Nelia Quezada PA 11/02/222215 Cosigned by Franck Cisneros Jr., MD at 11/03/2022 7:45 AM CDT Associated attestation - Franck Cisneros Jr., MD - 11/03/2022 7:45 AM CDT ED Attestation Based on the medical record the care appears appropriate. * Fany Stallings RN - 11/02/2022 4:40 PM CDT Pt to ED via EMS from home with c/o diarrhea and abdominal pain starting yesterday at 1700. Pt hx of Crohn's. Low grade fever at home. +Nausea +dizzy +headache NAD, AOx4. documented in this encounter Miscellaneous Notes * Plan of Care - Bessie Lezama RN - 11/07/2022 3:15 AM CDT Goals: Clinical Goals for the Shift: (Pain control) Problem: Activity: Goal: Risk for activity intolerance will decrease Outcome: Progressing Problem: Lack of Knowledge: Goal: Knowledge of diagnostic tests will improve Outcome: Progressing Goal: Knowledge of disease or condition will improve Outcome: Progressing Goal: Knowledge of safety precautions will improve Outcome: Progressing Goal: Knowledge of the prescribed therapeutic regimen will improve Outcome: Progressing Problem: Health Behavior: Goal: Ability to state signs and symptoms to report to health care provider will improve Outcome: Progressing Problem: Physical Regulation: Goal: Ability to maintain clinical measurements within normal limits will improve Outcome: Progressing Problem: Infection Risk: Goal: Will remain free from infection Outcome: Progressing Problem: Safety: Goal: Ability to remain free from injury will improve Outcome: Progressing Goal: Will remain free from falls Outcome: Progressing Problem: Self-Care: Goal: Ability to participate in self-care as condition permits will improve Outcome: Progressing Problem: Sensory: Goal: Pain level will decrease Outcome: Progressing Goal: Ability to develop a pain control plan will improve Outcome: Progressing Problem: Lack of Knowledge: Goal: Verbalization of an understanding of the causation of hyperthermia will improve Outcome: Progressing Goal: Understanding of ways to prevent future episodes of hyperthermia will improve Outcome: Progressing Problem: Physical Regulation: Goal: Ability to maintain a body temperature in the normal range will improve Outcome: Progressing Problem: Health Behavior: Goal: Understanding of discharge needs will improve Outcome: Progressing * Plan of Rebel - Henry Garrett RN - 11/06/2022 6:47 PM CDT Problem: Activity: Goal: Risk for activity intolerance will decrease Outcome: Progressing Problem: Lack of Knowledge: Goal: Knowledge of diagnostic tests will improve Outcome: Progressing Goal: Knowledge of disease or condition will improve Outcome: Progressing Goal: Knowledge of safety precautions will improve Outcome: Progressing Goal: Knowledge of the prescribed therapeutic regimen will improve Outcome: Progressing Problem: Health Behavior: Goal: Ability to state signs and symptoms to report to health care provider will improve Outcome: Progressing Problem: Physical Regulation: Goal: Ability to maintain clinical measurements within normal limits will improve Outcome: Progressing Problem: Infection Risk: Goal: Will remain free from infection Outcome: Progressing Problem: Safety: Goal: Ability to remain free from injury will improve Outcome: Progressing Goal: Will remain free from falls Outcome: Progressing Problem: Self-Care: Goal: Ability to participate in self-care as condition permits will improve Outcome: Progressing Problem: Sensory: Goal: Pain level will decrease Outcome: Progressing Goal: Ability to develop a pain control plan will improve Outcome: Progressing Problem: Lack of Knowledge: Goal: Verbalization of an understanding of the causation of hyperthermia will improve Outcome: Progressing Goal: Understanding of ways to prevent future episodes of hyperthermia will improve Outcome: Progressing Problem: Physical Regulation: Goal: Ability to maintain a body temperature in the normal range will improve Outcome: Progressing Problem: Health Behavior: Goal: Understanding of discharge needs will improve Outcome: Progressing Goals: Clinical Goals for the Shift: Alleviate fever Summary: patient alert and orient. IV antibiotics were given as scheduled. All the needs were attended. Currently patient sitting in his bed. Call light within reach, will continue to monitor. * Plan of Care - Anne Phan RN - 11/05/2022 5:18 PM CDT Problem: Activity: Goal: Risk for activity intolerance will decrease Outcome: Progressing Problem: Lack of Knowledge: Goal: Knowledge of diagnostic tests will improve Outcome: Progressing Goal: Knowledge of disease or condition will improve Outcome: Progressing Goal: Knowledge of safety precautions will improve Outcome: Progressing Goal: Knowledge of the prescribed therapeutic regimen will improve Outcome: Progressing Problem: Health Behavior: Goal: Ability to state signs and symptoms to report to health care provider will improve Outcome: Progressing Problem: Physical Regulation: Goal: Ability to maintain clinical measurements within normal limits will improve Outcome: Progressing Problem: Infection Risk: Goal: Will remain free from infection Outcome: Progressing Problem: Safety: Goal: Ability to remain free from injury will improve Outcome: Progressing Goal: Will remain free from falls Outcome: Progressing Problem: Self-Care: Goal: Ability to participate in self-care as condition permits will improve Outcome: Progressing Problem: Sensory: Goal: Pain level will decrease Outcome: Progressing Goal: Ability to develop a pain control plan will improve Outcome: Progressing Problem: Lack of Knowledge: Goal: Verbalization of an understanding of the causation of hyperthermia will improve Outcome: Progressing Goal: Understanding of ways to prevent future episodes of hyperthermia will improve Outcome: Progressing Problem: Physical Regulation: Goal: Ability to maintain a body temperature in the normal range will improve Outcome: Progressing Problem: Health Behavior: Goal: Understanding of discharge needs will improve Outcome: Progressing Goals: Clinical Goals for the Shift: Alleviate fever Summary: * Plan of Care - Olena Pelayo RN - 11/05/2022 6:29 AM CDT Goals: Clinical Goals for the Shift: Alleviate fever Summary: Tap water enema done. Patient had large watery BM. He signed consent for the procedure * Plan of Care - Olena Pelayo RN - 11/05/2022 2:38 AM CDT Goals: Clinical Goals for the Shift: Alleviate fever Summary: Problem: Activity: Goal: Risk for activity intolerance will decrease Outcome: Progressing Problem: Lack of Knowledge: Goal: Knowledge of diagnostic tests will improve Outcome: Progressing Goal: Knowledge of disease or condition will improve Outcome: Progressing Goal: Knowledge of safety precautions will improve Outcome: Progressing Goal: Knowledge of the prescribed therapeutic regimen will improve Outcome: Progressing Problem: Health Behavior: Goal: Ability to state signs and symptoms to report to health care provider will improve Outcome: Progressing Problem: Physical Regulation: Goal: Ability to maintain clinical measurements within normal limits will improve Outcome: Progressing Problem: Infection Risk: Goal: Will remain free from infection Outcome: Progressing Problem: Safety: Goal: Ability to remain free from injury will improve Outcome: Progressing Goal: Will remain free from falls Outcome: Progressing Problem: Self-Care: Goal: Ability to participate in self-care as condition permits will improve Outcome: Progressing Problem: Sensory: Goal: Pain level will decrease Outcome: Progressing Goal: Ability to develop a pain control plan will improve Outcome: Progressing Problem: Lack of Knowledge: Goal: Verbalization of an understanding of the causation of hyperthermia will improve Outcome: Progressing Goal: Understanding of ways to prevent future episodes of hyperthermia will improve Outcome: Progressing Problem: Physical Regulation: Goal: Ability to maintain a body temperature in the normal range will improve Outcome: Progressing Problem: Health Behavior: Goal: Understanding of discharge needs will improve Outcome: Progressing * Plan of Care - Anne Phan RN - 11/04/2022 6:08 PM CDT Problem: Activity: Goal: Risk for activity intolerance will decrease Outcome: Progressing Problem: Lack of Knowledge: Goal: Knowledge of diagnostic tests will improve Outcome: Progressing Goal: Knowledge of disease or condition will improve Outcome: Progressing Goal: Knowledge of safety precautions will improve Outcome: Progressing Goal: Knowledge of the prescribed therapeutic regimen will improve Outcome: Progressing Problem: Health Behavior: Goal: Ability to state signs and symptoms to report to health care provider will improve Outcome: Progressing Problem: Physical Regulation: Goal: Ability to maintain clinical measurements within normal limits will improve Outcome: Progressing Problem: Infection Risk: Goal: Will remain free from infection Outcome: Progressing Problem: Safety: Goal: Ability to remain free from injury will improve Outcome: Progressing Goal: Will remain free from falls Outcome: Progressing Problem: Self-Care: Goal: Ability to participate in self-care as condition permits will improve Outcome: Progressing Problem: Sensory: Goal: Pain level will decrease Outcome: Progressing Goal: Ability to develop a pain control plan will improve Outcome: Progressing Problem: Lack of Knowledge: Goal: Verbalization of an understanding of the causation of hyperthermia will improve Outcome: Progressing Goal: Understanding of ways to prevent future episodes of hyperthermia will improve Outcome: Progressing Problem: Physical Regulation: Goal: Ability to maintain a body temperature in the normal range will improve Outcome: Progressing Problem: Health Behavior: Goal: Understanding of discharge needs will improve Outcome: Progressing Goals: Clinical Goals for the Shift: Alleviate fever Summary: * Plan of Care - Bessie Lezama RN - 11/04/2022 3:26 AM CDT Goals: Reduce episodes of diarrhea this shift. Summary Colestipol given this shift for diarrhea. No complain of pain this shift. IV antibiotic andIV fluid continues. Problem: Activity: Goal: Risk for activity intolerance will decrease Outcome: Progressing Problem: Lack of Knowledge: Goal: Knowledge of diagnostic tests will improve Outcome: Progressing Goal: Knowledge of disease or condition will improve Outcome: Progressing Goal: Knowledge of safety precautions will improve Outcome: Progressing Goal: Knowledge of the prescribed therapeutic regimen will improve Outcome: Progressing Problem: Health Behavior: Goal: Ability to state signs and symptoms to report to health care provider will improve Outcome: Progressing Problem: Physical Regulation: Goal: Ability to maintain clinical measurements within normal limits will improve Outcome: Progressing Problem: Infection Risk: Goal: Will remain free from infection Outcome: Progressing Problem: Safety: Goal: Ability to remain free from injury will improve Outcome: Progressing Goal: Will remain free from falls Outcome: Progressing Problem: Self-Care: Goal: Ability to participate in self-care as condition permits will improve Outcome: Progressing Problem: Sensory: Goal: Pain level will decrease Outcome: Progressing Goal: Ability to develop a pain control plan will improve Outcome: Progressing Problem: Lack of Knowledge: Goal: Verbalization of an understanding of the causation of hyperthermia will improve Outcome: Progressing Goal: Understanding of ways to prevent future episodes of hyperthermia will improve Outcome: Progressing Problem: Physical Regulation: Goal: Ability to maintain a body temperature in the normal range will improve Outcome: Progressing Problem: Health Behavior: Goal: Understanding of discharge needs will improve Outcome: Progressing * Plan of Care - Henry Garrett RN - 11/03/2022 6:44 PM CDT Problem: Activity: Goal: Risk for activity intolerance will decrease Outcome: Progressing Problem: Lack of Knowledge: Goal: Knowledge of diagnostic tests will improve Outcome: Progressing Goal: Knowledge of disease or condition will improve Outcome: Progressing Goal: Knowledge of safety precautions will improve Outcome: Progressing Goal: Knowledge of the prescribed therapeutic regimen will improve Outcome: Progressing Problem: Health Behavior: Goal: Ability to state signs and symptoms to report to health care provider will improve Outcome: Progressing Problem: Physical Regulation: Goal: Ability to maintain clinical measurements within normal limits will improve Outcome: Progressing Problem: Infection Risk: Goal: Will remain free from infection Outcome: Progressing Problem: Safety: Goal: Ability to remain free from injury will improve Outcome: Progressing Goal: Will remain free from falls Outcome: Progressing Problem: Self-Care: Goal: Ability to participate in self-care as condition permits will improve Outcome: Progressing Problem: Sensory: Goal: Pain level will decrease Outcome: Progressing Goal: Ability to develop a pain control plan will improve Outcome: Progressing Problem: Lack of Knowledge: Goal: Verbalization of an understanding of the causation of hyperthermia will improve Outcome: Progressing Goal: Understanding of ways to prevent future episodes of hyperthermia will improve Outcome: Progressing Problem: Physical Regulation: Goal: Ability to maintain a body temperature in the normal range will improve Outcome: Progressing Problem: Health Behavior: Goal: Understanding of discharge needs will improve Outcome: Progressing Goals: Clinical Goals for the Shift: Alleviate fever Summary: patient is cooperative, took all his due medications. Patient still having loose bowel movement. Lab were collected as ordered. Currently patient laying down in his bed. Call light within reach, will continue to monitor. * Initial Assessments - Rowan Lorenzo RN - 11/03/2022 12:35 PM CDT CM Initial Assessment Interview Note Information Obtained From: Patient (11/03/22 1235) Admission Source: ED from home Impression: Admitted for abdominal pain and diarrhea. He has a PMH of Crohn's which he follows up with Dr. Quevedo at [facility]. Patient has not taken his Purinethol in the past 6 days because he ran out. Patient is independent in the room. A/Ox4, VSS on RA. Plan Includes: GI consult, IVF, clear liquid diet Potential Discharge Plans: Patient lives at home with his spouse and children. He denies any needs at this time, Primary Source of Transportation: Does the patient need discharge transport arranged?: No Has discharge transport been arranged?: Yes (11/02/222200) Health Insurance Coverage: BC Prescription Coverage: [facility] Pharmacy: [id number] - [place], [place] - [address] AT [facility] [address] [phone] [place] [address] [facility] [address] [facility] [address] [facility] [place] - [address] [place] [address] [facility] [address] [facility]/pharmacy #[id number] - [place], [address] [address] Primary Care Provider: Lanre Parekh DO Prior to Admission: Primary Caregiver: Self Who does the patient or legal guardian want to receive education instruction and discharge plans for after care assistance?: Name Caregiver Name: Quinton Escalera Relationship to patient: Caregiver Contact Information: [phone] Caregiver [address]: [address] [place] [address] Support System: Spouse/Significant Other, Children Home Care Services: No Durable Medical Equipment: None Living Arrangements: Spouse/significant other, Children Type of Residence: Private residence Steps in home? : Yes, Inside home, Yes, Outside of home Number of steps inside:: 20 steps Number of steps outside:: 20 steps (11/02/222299) SDOH: Transportation: In the past 12 months, has lack of transportation kept you from medical appointments or from getting medications?: No In the past 12 months, has lack of transportation kept you from meetings, work, or from getting things needed for daily living?: No (11/03/221516) Financial Resource: How hard is it for you to pay for the very basics like food, housing, medical care, and heating?: Not hard at all (11/03/221516) Housing: In the last 12 months, was there a time when you were not able to pay the mortgage or rent on time?: No In the last 12 months, how many places have you lived?: 1 In the last 12 months, was there a time when you did not have a steady place to sleep or slept in ashelter (including now)?: No (11/03/221517) Social Connections: In a typical week, how many times do you talk on the phone with family, friends, or neighbors?: More than three times a week How often do you get together with friends or relatives?: Three times a week How often do you attend protestant or synagogue services?: 1 to 4 times per year Do you belong to any clubs or organizations such as protestant groups, unions, fraternal or athletic groups, or school groups?: No How often do you attend meetings of the clubs or organizations you belong to?: Never Are you , , , , never , or living with a partner?: (11/03/22 151) Food Insecurity: Within the past 12 months, you worried that your food would run out before you got the money to buymore.: Never true Within the past 12 months, the food you bought just didn't last and you didn't have money to get more.: Never true (11/03/22 151) Patient expects to be Discharged to: Private residence, (11/03/22 1235) Patient's Identified Problem/Goal Problem: Ensure acute medical needs are met and that patient has a safe discharge plan. Goal: Secure a discharge plan that patient/family are agreeable with and ensure patient has continuum of care. Case management will follow for discharge planning and send referrals as needed. Rowan Lorenzo RN * Plan of Care - Bessie Lezama RN - 11/03/2022 3:27 AM CDT Goals: Clinical Goals for the Shift: Alleviate fever Summary:Fever controlled with tylenol this shift. Iv antibiotic and Iv fluid initiated. Problem: Activity: Goal: Risk for activity intolerance will decrease Outcome: Progressing Problem: Lack of Knowledge: Goal: Knowledge of diagnostic tests will improve Outcome: Progressing Goal: Knowledge of disease or condition will improve Outcome: Progressing Goal: Knowledge of safety precautions will improve Outcome: Progressing Goal: Knowledge of the prescribed therapeutic regimen will improve Outcome: Progressing Problem: Health Behavior: Goal: Ability to state signs and symptoms to report to health care provider will improve Outcome: Progressing Problem: Physical Regulation: Goal: Ability to maintain clinical measurements within normal limits will improve Outcome: Progressing Problem: Infection Risk: Goal: Will remain free from infection Outcome: Progressing Problem: Safety: Goal: Ability to remain free from injury will improve Outcome: Progressing Goal: Will remain free from falls Outcome: Progressing Problem: Self-Care: Goal: Ability to participate in self-care as condition permits will improve Outcome: Progressing Problem: Sensory: Goal: Pain level will decrease Outcome: Progressing Goal: Ability to develop a pain control plan will improve Outcome: Progressing Problem: Lack of Knowledge: Goal: Verbalization of an understanding of the causation of hyperthermia will improve Outcome: Progressing Goal: Understanding of ways to prevent future episodes of hyperthermia will improve Outcome: Progressing Problem: Physical Regulation: Goal: Ability to maintain a body temperature in the normal range will improve Outcome: Progressing * Assessment & Plan Note - Beatrice Jones MD - 11/03/2022 2:10 AM CDT Associated Problem(s): Acute kidney injury (HCC) Mild to moderate rise in BUN and creatinine levels from baseline noted IV fluid Pending re-evaluation of BUN and creatinine levels with a.m. labs * Assessment & Plan Note - Beatrice Jones MD - 11/03/2022 2:09 AM CDT Associated Problem(s): Acute cystitis (Deleted) Minimal findings of urinary etiology: Darkened urine decreased urinary frequency, lower back pain IV fluid IV antibiotic as noted Pending follow-up of urine culture results * Assessment & Plan Note - Beatrice Jones MD - 11/03/2022 2:09 AM CDT Associated Problem(s): Enteritis As seen on CT imaging IV antibiotic with Zosyn IV fluid Pain management p.r.n. Pending follow-up blood culture results Stool testing sent in ER---pending follow-up Gastroenterology consultation notified in ER Status post steroid x1 History of Crohn's disease Continuation of other Crohn's medications per GI recommendation documented in this encounter Plan of Treatment Pending Results Name Type Priority Associated Diagnoses Date /Time Magnesium Lab STAT 11/02/2022 5:1 8 PM CDT Phosphorus Lab STAT 11/02/2022 5:1 8 PM CDT CRP (acute phase) Lab Routine 023 4:06 AM CDT Erythrocyte sedimentation rate Lab Routine 11/03/2022 4:06 AM CDT Scheduled Orders Name Type Priority Associated Diagnoses Orde r Schedule Magnesium Lab STAT Once for 1 Occ urrences starting 11/02/2022 until 11/02/2022 Phosphorus Lab STAT Once for 1 Occ urrences starting 11/02/2022 until 11/02/2022 CRP (acute phase) Lab Routine Once fo r 1 Occurrences starting 11/03/2022 until 11/03/2022 Erythrocyte sedimentation rate Lab Routine Once for 1 Occur rences starting 11/03/2022 until 11/03/2022 documented as of this encounter Procedures Procedure Name Priority Date/Time Associated Diagnosis Comments EGFR Routine 11/07/2022 4:25 AM CDT DIFFERENTIAL AUTO Routine 11/07/2022 4:2 5 AM CDT CBC WITH AUTO DIFFERENTIAL Routine 11/07/2022 4:25 AM CDT ERYTHROCYTE SEDIMENTATION RATE Routine 11/07/2022 4:25 AM CDT CRP (ACUTE PHASE) Routine 11/07/2022 4:2 5 AM CDT BASIC METABOLIC PANEL Routine 11/07/2022 4:25 AM CDT EGFR Routine 11/06/2022 8:38 AM CDT DIFFERENTIAL AUTO Routine 11/06/2022 8:3 8 AM CDT CBC WITH AUTO DIFFERENTIAL Routine 11/06/2022 8:38 AM CDT BASIC METABOLIC PANEL Routine 11/06/2022 8:38 AM CDT SURGICAL PATHOLOGY Routine 11/05/2022 9: 44 AM CDT Diarrhea, unspecified type COLON BIOPSY 11/05/2022 9:28 AM CDT Diarrhea, unspecified type COLONOSCOPY 11/05/2022 9:24 AM CDT EGFR Routine 11/05/2022 6:22 AM CDT DIFFERENTIAL AUTO Routine 11/05/2022 6:2 2 AM CDT CBC WITH AUTO DIFFERENTIAL Routine 11/05/2022 6:22 AM CDT BASIC METABOLIC PANEL Routine 11/05/2022 6:22 AM CDT ERYTHROCYTE SEDIMENTATION RATE Routine 11/04/2022 3:15 PM CDT CRP (ACUTE PHASE) Routine 11/04/2022 3:1 5 PM CDT ROTAVIRUS ANTIGEN Routine 11/04/2022 12: 30 PM CDT EGFR Routine 11/04/2022 3:15 AM CDT DIFFERENTIAL AUTO Routine 11/04/2022 3:1 5 AM CDT CBC WITH AUTO DIFFERENTIAL Routine 11/04/2022 3:15 AM CDT BASIC METABOLIC PANEL Routine 11/04/2022 3:15 AM CDT CALPROTECTIN, FECAL Routine 11/03/2022 5 :27 PM CDT C. DIFFICILE TESTING STAT 11/03/2022 10:00 AM CDT OVA AND PARASITE EXAMINATION STAT 11/03/2022 10:00 AM CDT CRYPTOSPORIDIUM AND GIARDIA ANTIGEN ASSAY Routine 11/03/2022 10:00 AM CDT LACTATE Routine 11/03/2022 4:06 AM CDT EGFR Routine 11/03/2022 4:06 AM CDT DIFFERENTIAL AUTO Routine 11/03/2022 4:0 6 AM CDT CBC WITH AUTO DIFFERENTIAL Routine 11/03/2022 4:06 AM CDT ERYTHROCYTE SEDIMENTATION RATE Routine 11/03/2022 4:06 AM CDT CRP (ACUTE PHASE) Routine 11/03/2022 4:0 6 AM CDT BASIC METABOLIC PANEL Routine 11/03/2022 4:06 AM CDT STOOL CULTURE Routine 11/03/2022 3:30 AM CDT BLOOD CULTURE Routine 11/02/2022 10:25 PM CDT BLOOD CULTURE Routine 11/02/2022 10:24 PM CDT URINALYSIS AND REFLEX TO MICROSCOPIC AND CULTURE STAT 11/02/2022 9:12 PM CDT URINALYSIS, MICROSCOPIC ONLY STAT 11/02/2022 9:12 PM CDT URINE CULTURE STAT 11/02/2022 9:[address] ABDOMEN PELVIS W CONTRAST ED 11/02/2022 7:10 PM CDT EGFR STAT 11/02/2022 5:18 PM CDT PHOSPHORUS STAT 11/02/2022 5:18 PM CDT MAGNESIUM STAT 11/02/2022 5:18 PM CDT LIPASE STAT 11/02/2022 5:18 PM CDT COMPREHENSIVE METABOLIC PANEL STAT 11/02/2022 5:18 PM CDT SEPSIS LACTATE WITH REFLEX STAT 11/02/2022 4:49 PM CDT DIFFERENTIAL AUTO STAT 11/02/2022 4:4 9 PM CDT CBC WITH AUTO DIFFERENTIAL STAT 11/02/2022 4:49 PM CDT documented in this encounter Results * eGFR (11/07/2022 4:25 AM CDT) [facility] eGFR 116 mL/min/1. 73 m2 [facility] Comment: Interpretive Data Reference Interval Normal ?>/= [...] interpretive data was last reviewed 2021. Blood 11/07/2022 4:25 AM CDT 11/07/2022 4:49 AM CDT us Beatrice Jones MD LAB BLOOD ORDERABLES Final Re sult [facility] [address] [facility] [place] [address] * (ABNORMAL) Differential, auto (11/07/2022 4:25 AM CDT) Pathologist [facility] Neutrophil abs 2.8 1.7 - 6.5 K/cumm [facility] Imm gran abs 0.0 0.0 - 0.1 K/cumm [facility] Lymphocyte abs 3.4(H) 0.8 - 3.3 K/cumm [facility] Monocyte abs 0.4 0.2 - 0.8 K/cumm [facility] Eosinophil abs 0.1 0.0 - 0.5 K/cumm [facility] Basophil abs 0.0 0.0 - 0.1 K/cumm [facility] Neutrophil pct 41.9 % [facility] Comment: Consistent with previous result Interpretive Data Percent cell count reference ranges are not reported, since discordance with absolute values may lead to misinterpretation of CBC data. Current Interpretive Data was last revised on 2017. Imm gran pct 0.3 % [facility] Comment: Interpretive Data Percent cell count reference ranges are not reported, since discordance with absolute values may lead to misinterpretation of CBC data. Current Interpretive Data was last revised on 2017. Lymphocyte pct 50.1 % [facility] Comment: Interpretive Data Percent cell count reference ranges are not reported, since discordance with absolute values may lead to misinterpretation of CBC data. Current Interpretive Data was last revised on 2017. Monocyte pct 6.0 % [facility] Comment: Interpretive Data Percent cell count reference ranges are not reported, since discordance with absolute values may lead to misinterpretation of CBC data. Current Interpretive Data was last revised on 2017. Eosinophil pct 1.3 % [facility] Comment: Interpretive Data Percent cell count reference ranges are not reported, since discordance with absolute values may lead to misinterpretation of CBC data. Current Interpretive Data was last revised on 2017. Basophil pct 0.4 % [facility] Comment: Interpretive Data Percent cell count reference ranges are not reported, since discordance with absolute values may lead to misinterpretation of CBC data. Current Interpretive Data was last revised on 2017. Blood 11/07/2022 4:25 AM CDT 11/07/2022 4:49 AM CDT Beatrice Jones MD LAB BLOOD ORDERABLES Final Re sult Performing Organization Address [facility]/ZIP Co de Phone Number [facility] [address] [facility] [place] [address] * Basic metabolic panel (11/07/2022 4:25 AM CDT) [facility] Sodium 139 135 - 145 mmol/L [facility] Potassium, pl 3.6 3.3 - 4.9 mmol/L [facility] Chloride 103 97 - 110 mmol/L [facility] CO2 25 22 - 32 mmol/L [facility] Anion gap 11 2 - 15 mmol/L [facility] BUN 10 8 - 25 mg/dL [facility] Creatinine 0.90 0.80 - 1.30 mg/dL [facility] Glucose 98 70 - 199 mg/dL [facility] Comment: Interpretive Data Fasting glucose >/= 126 [...] interpretive data was last revised 2022. Calcium 9.0 8.5 - 10.3 mg/dL [facility] Blood 11/07/2022 4:25 AM CDT 11/07/2022 4:49 AM CDT Beatrice Jones MD LAB BLOOD ORDERABLES Final Re sult Performing Organization Address [facility]/ZIP Co de Phone Number [facility] [address] [facility] [place] [address] * (ABNORMAL) CBC with auto differential (11/07/2022 4:25 AM CDT) [facility] WBC 6.7 3.8 - 9.9 K/cumm [facility] Hgb 13.4 13.0 - 17.5 g/dL [facility] Hct 38.8(L) 38.9 - 50.3 % [facility] Plt 232 150 - 400 K/cumm [facility] MPV 10.5 9.1 - 12.3 fL [facility] RBC 3.99(L) 4.30 - 5.80 M/cumm [facility] MCV 97.2(H) 81.3 - 96.4 fL [facility] MCH 33.6(H) 27.1 - 33.3 pg [facility] MCHC 34.5 32.3 - 35.7 g/dL [facility] RDW CV 12.9 11.1 - 14.9 % [facility] RDW SD 46.5 35.7 - 48.1 fL [facility] NRBC abs 0.00 0.00 - 0.01 K/cumm [facility] Blood 11/07/2022 4:25 AM CDT 11/07/2022 4:49 AM CDT Beatrice Jones MD LAB BLOOD ORDERABLES Final Re sult Performing Organization Address City/[facility]/ZIP Co de Phone Number [address] [place] [address] * (ABNORMAL) CRP (acute phase) (11/07/2022 4:25 AM CDT) Pathologist [facility] CRP 13.4(H) <=10.0 mg/L [facility] Blood 11/07/2022 4:2 5 AM CDT 11/07/2022 4:49 AM CDT Noreen Moura MD LAB BLOOD ORDERABLES Final Res ult [address] [place] [address] * (ABNORMAL) Erythrocyte sedimentation rate (11/07/2022 4:25 AM CDT) Erythrocyte sedimentation rate 39(H) 1 - 15 mm/hr [facility] Blood 11/07/2022 4:25 AM CDT 11/07/2022 4:49 AM CDT Noreen Moura MD LAB BLOOD ORDERABLES Final Res ult Performing Organization Address [facility] Co de Phone Number [facility] [address] [facility] [place] [address] * eGFR (11/06/2022 8:38 AM CDT) Pathologist [facility] eGFR 120 mL/min/1. 73 m2 [facility] Comment: Interpretive Data Reference Interval Normal ?>/= [...] interpretive data was last reviewed 2021. Blood 11/06/2022 8:38 AM CDT 11/06/2022 8:53 AM CDT us Beatrice Jones MD LAB BLOOD ORDERABLES Final Re sult Performing Organization Address City/[facility] Co de Phone Number [facility] [place] [address] * Differential, auto (11/06/2022 8:38 AM CDT) Neutrophil abs 2.6 1.7 - 6.5 K/cumm [facility] Imm gran abs 0.0 0.0 - 0.1 K/cumm [facility] Lymphocyte abs 2.2 0.8 - 3.3 K/cumm [facility] Monocyte abs 0.3 0.2 - 0.8 K/cumm [facility] Eosinophil abs 0.0 0.0 - 0.5 K/cumm [facility] Basophil abs 0.0 0.0 - 0.1 K/cumm [facility] Neutrophil pct 50.1 % [facility] Comment: Interpretive Data Percent cell count reference ranges are not reported, since discordance with absolute values may lead to misinterpretation of CBC data. Current Interpretive Data was last revised on 2017. Imm gran pct 0.4 % [facility] Comment: Interpretive Data Percent cell count reference ranges are not reported, since discordance with absolute values may lead to misinterpretation of CBC data. Current Interpretive Data was last revised on 2017. Lymphocyte pct 42.3 % [facility] Comment: Interpretive Data Percent cell count reference ranges are not reported, since discordance with absolute values may lead to misinterpretation of CBC data. Current Interpretive Data was last revised on 2017. Monocyte pct 6.0 % [facility] Comment: Interpretive Data Percent cell count reference ranges are not reported, since discordance with absolute values may lead to misinterpretation of CBC data. Current Interpretive Data was last revised on 2017. Eosinophil pct 0.8 % [facility] Comment: Interpretive Data Percent cell count reference ranges are not reported, since discordance with absolute values may lead to misinterpretation of CBC data. Current Interpretive Data was last revised on 2017. Basophil pct 0.4 % [facility] Comment: Interpretive Data Percent cell count reference ranges are not reported, since discordance with absolute values may lead to misinterpretation of CBC data. Current Interpretive Data was last revised on 2017. Blood 11/06/2022 8:38 AM CDT 11/06/2022 8:53 AM CDT Beatrice Jones MD LAB BLOOD ORDERABLES Final Re sult [facility] [address] [facility] [place] [address] * Basic metabolic panel (11/06/2022 8:38 AM CDT) Pathologist [facility] Sodium 139 135 - 145 mmol/L [facility] Potassium, pl 3.6 3.3 - 4.9 mmol/L [facility] Chloride 104 97 - 110 mmol/L [facility] CO2 24 22 - 32 mmol/L [facility] Anion gap 11 2 - 15 mmol/L [facility] BUN 8 8 - 25 mg/dL [facility] Creatinine 0.80 0.80 - 1.30 mg/dL [facility] Glucose 90 70 - 199 mg/dL [facility] Comment: Interpretive Data Fasting glucose >/= 126 [...] interpretive data was last revised 2022. Calcium 8.9 8.5 - 10.3 mg/dL [facility] Blood 11/06/2022 8:38 AM CDT 11/06/2022 8:53 AM CDT Beatrice Jones MD LAB BLOOD ORDERABLES Final Re sult [facility] [address] [facility] [place] [address] * (ABNORMAL) CBC with auto differential (11/06/2022 8:38 AM CDT) Pathologist [facility] WBC 5.2 3.8 - 9.9 K/cumm [facility] Hgb 13.8 13.0 - 17.5 g/dL [facility] Hct 40.5 38.9 - 50.3 % [facility] Plt 220 150 - 400 K/cumm [facility] MPV 10.4 9.1 - 12.3 fL [facility] RBC 4.06(L) 4.30 - 5.80 M/cumm [facility] MCV 99.8(H) 81.3 - 96.4 fL [facility] MCH 34.0(H) 27.1 - 33.3 pg [facility] MCHC 34.1 32.3 - 35.7 g/dL [facility] RDW CV 13.2 11.1 - 14.9 % [facility] RDW SD 48.7(H) 35.7 - 48.1 fL [facility] NRBC abs 0.00 0.00 - 0.01 K/cumm [facility] Blood 11/06/2022 8:38 AM CDT 11/06/2022 8:53 AM CDT Beatrice Jones MD LAB BLOOD ORDERABLES Final Re sult [address] [place] [address] * Surgical pathology (11/05/2022 9:44 AM CDT) Tissue (Colon, Biopsy) 11/05/2022 9:44 AM CDT Tissue (Colon, Biopsy) 11/05/2022 9:45 AM CDT Tissue (Colon, Biopsy) 11/05/2022 9:46 AM CDT Tissue (Colon, Biopsy) 11/05/2022 9:47 AM CDT Tissue (Colon, Biopsy) 11/05/2022 9:47 AM CDT Tissue (Colon, Biopsy) 11/05/2022 9:48 AM CDT Narrative PATHOLOGY [facility] - 11/07/2022 12:52 PM CDT [facility] Department of Pathology [address] [place] [address] ?? Note to Patients: ??This report may contain a detailed description of human tissue sent by a health care provider to the laboratory for pathologic evaluation. ??The content of this report is essential for diagnosis and may provide important critical findings. ??This information may be unfamiliar to patients to review without a medical professional present. ?? It is advised that the patient review this report in the presence of a health care provider who can answer questions and explain the details. Final Report Patient Name: NIC ESCALERA : ??1990 (Age: 32) Gender: ??M Address: ??[address] [place] [address] ??[address] [facility] #: [id number] Service: Medical Location: Patient Type: B INPATIENT ? Taken: 11/05/2022 Received: 11/06/2022 Accessioned: 11/06/2022 Reported: 11/07/2022 Physician(s): Mickey Castro D.O. Diagnosis: A. Small intestine, terminal ileum, biopsy ? - Mild active ileitis ? - No evidence of chronicity, granuloma, or dysplasia B. Large bowel, right colon, biopsy ? - Normal colonic mucosa ? - Negative for granuloma and dysplasia C. Large bowel, transverse colon, biopsy ? - Normal colonic mucosa ? - Negative for granuloma and dysplasia D. Large bowel, descending colon, biopsy ? - Normal colonic mucosa ? - Negative for granuloma and dysplasia E. Large bowel, sigmoid, biopsy ? - Normal colonic mucosa ? - Negative for granuloma and dysplasia F. Large bowel, rectum, biopsy ? - Normal colonic mucosa ? - Negative for granuloma and dysplasia ?? Ana Luisa Christopher MD Report Electronically Reviewed and Signed Out By ??Ana Luisa Christopher MD 11/07/2022 12:52:08 Specimen(s) Received: A: TI colon bxs B: Right colon bxs C: Transverse colon bxs D: Descending colon bxs E: Sigmoid colon bxs F: Rectal colon bxs Microscopic Description: Microscopic examination substantiates the above cited diagnosis. Clinical History: The patient is a 32-year-old man with unspecified diarrhea. ??Operative Procedure: colonoscopy with biopsy. Gross Description Received in six formalin jars labeled with the patient's identifiers. A. ??Labeled TI colon Bxs and consists of three wolfe, friable tissue fragments each measuring 0.3 cm. ??Entirely submitted. ?? Labeled A1. Jar 0. B. ??Labeled right colon Bxs and consists of three wolfe tissue fragments ranging from 0.3-0.6 cm. ??Entirely submitted. ?? Labeled B1. Jar 0. C. ??Labeled transverse colon Bxs and consists of three wolfe, friable tissue fragments ranging from 0.3-0.5 cm. ??Entirely submitted. ?? Labeled C1. Jar 0. D. ??Labeled descending colon Bxs and consists of three wolfe tissue fragments each measuring 0.3 cm. ??Entirely submitted. ?? Labeled D1. Jar 0. E. ??Labeled sigmoid colon Bxs and consists of three wolfe tissue fragments ranging from 0.2-0.3 cm. ??Entirely submitted. ?? Labeled E1. Jar 0. F. ??Labeled rectal colon Bxs and consists of three wolfe tissue fragments ranging from 0.1-0.3 cm. ??Entirely submitted. ?? Labeled F1. Jar 0. ?? jjb/11/06/2022 13:07 CECY Ryan Microscopic slide review and interpretation for this case was performed at [facility], Department of Surgical Pathology, [address] [facility], [place] [id number], ??[facility], [place] ??[address] ?? CLIA # [id number] Luke Jones MD LAB PATHOLOGY ORDER YOSELYN Final Result PATHOLOGY [facility] * COLONOSCOPY (11/05/2022 9:24 AM CDT) Anatomical Region Laterality Modality Other Narrative Procedure Note Luke Jones MD - 11/05/2022 9:24 AM CDT [facility] GI ENDOSCOPY Patient Name: Nic Escalera Procedure Date: 11/05/2022 9:24 AM Date of : 1990 Admit Type: Inpatient Age: 32 Gender: Male Attending MD: Luke Celestin MD Room: [facility] ENDOSCOPY ROOM 05 Note Status: Finalized Procedure: Colonoscopy Indications: Clinically significant diarrhea of unexplainedorigin, Personal history of Crohn's disease Referring MD: Providers: Luke Jones MD Medicines: Monitored Anesthesia Care Complications: No immediate complications. Estimated blood loss: Minimal. Estimated Blood Loss: Estimated blood loss was minimal. Procedure: Pre-Anesthesia Assessment: - Prior to the procedure, a History and Physicalwas performed, and patient medications and allergieswere reviewed. The patient is competent. The risks and benefits of the procedure and the sedation optionsand risks were discussed with the patient. Allquestions were answered and informed consent was obtained. Patient identification and proposed procedure were verified by the physician and the nurse in the procedure room. Mental Status Examination: alertand oriented. Airway Examination: normal oropharyngeal airway and neck mobility. Respiratory Examination: clear to auscultation. CV Examination: normal. Prophylactic Antibiotics: The patient does notrequire prophylactic antibiotics. Prior Anticoagulants: The patient has taken no anticoagulant or antiplatelet agents. ASA Grade Assessment: II - A patient withmild systemic disease. After reviewing the risks and benefits, the patient was deemed in satisfactory condition to undergo the procedure. The anesthesia plan was to use monitored anesthesia care (MAC). Immediately prior to administration of medications, the patient was re-assessed for adequacy to receive sedatives. The heart rate, respiratory rate, oxygen saturations, blood pressure, adequacy of pulmonary ventilation, and response to care were monitored throughout the procedure. The physical status ofthe patient was re-assessed after the procedure. The benefits, risks and alternatives of theprocedure and sedation were discussed and informed consentwas obtained. All questions were answered. Please referto the signed informed consent document in the medical record. The scope was passed under direct vision.The CF-H190L colonoscope was introduced through theanus and advanced to the ileocolonic anastomosis. The colonoscopy was performed without difficulty. The patient tolerated the procedure well. The qualityof the bowel preparation was evaluated using the BBPS ([place] Bowel Preparation Scale) with scores of:Right Colon = 3, Transverse Colon = 3 and Left Colon = 3 (entire mucosa seen well with no residual staining, small fragments of stool or opaque liquid). Thetotal BBPS score equals 9. The terminal ileum, ileocecal valve, appendiceal orifice, and rectum were photographed. Findings: The perianal and digital rectal examinations were normal. There was evidence of a prior ileo-colonic anastomosis in theascending colon. This was patent and was characterized by two small ulcerswithout bleeding. The anastomosis was traversed. The jayna-terminal ileum appeared normal. Biopsies were taken with acold forceps for histology. The rectum, sigmoid colon, descending colon, transverse colon andright colon appeared otherwise normal. Biopsies were taken with a coldforceps for histology. The retroflexed view of the distal rectum and anal verge was normaland showed no anal or rectal abnormalities. Impression: - Patent ileo-colonic anastomosis, characterized by two small ulcers without bleeding. - The examined portion of the ileum was normal. Biopsied. - The rectum, sigmoid colon, descending colon, transverse colon and ascending colon are normal. Biopsied. - The distal rectum and anal verge are normal on retroflexion view. Recommendation: - [facility] - Resume previous diet. - Await pathology results. - Follow up stool studies. Luke Jones M.D. Luke Jones MD 11/05/2022 9:56:32 AM . Number of Addenda: 0 Note Initiated On: 11/05/2022 9:24 AM Recognized by the [place] [employer]intestinal [employer] for promoting quality in endoscopy us Luke Jones MD ENDOSCOPY PROCEDURE S Final Result * eGFR (11/05/2022 6:22 AM CDT) eGFR 125 mL/min/1. 73 m2 [facility] Comment: Interpretive Data Reference Interval Normal ?>/= [...] interpretive data was last reviewed 2021. Blood 11/05/2022 6:22 AM CDT 11/05/2022 7:08 AM CDT Beatrice Jones MD LAB BLOOD ORDERABLES Final Re sult [facility] [address] [facility] [place] [address] * Differential, auto (11/05/2022 6:22 AM CDT) Neutrophil abs 2.9 1.7 - 6.5 K/cumm [facility] Imm gran abs 0.0 0.0 - 0.1 K/cumm [facility] Lymphocyte abs 1.7 0.8 - 3.3 K/cumm [facility] Monocyte abs 0.6 0.2 - 0.8 K/cumm [facility] Eosinophil abs 0.1 0.0 - 0.5 K/cumm [facility] Basophil abs 0.0 0.0 - 0.1 K/cumm [facility] Neutrophil pct 54.5 % [facility] Comment: Interpretive Data Percent cell count reference ranges are not reported, since discordance with absolute values may lead to misinterpretation of CBC data. Current Interpretive Data was last revised on 2017. Imm gran pct 0.2 % [facility] Comment: Interpretive Data Percent cell count reference ranges are not reported, since discordance with absolute values may lead to misinterpretation of CBC data. Current Interpretive Data was last revised on 2017. Lymphocyte pct 31.8 % [facility] Comment: Interpretive Data Percent cell count reference ranges are not reported, since discordance with absolute values may lead to misinterpretation of CBC data. Current Interpretive Data was last revised on 2017. Monocyte pct 12.0 % [facility] Comment: Interpretive Data Percent cell count reference ranges are not reported, since discordance with absolute values may lead to misinterpretation of CBC data. Current Interpretive Data was last revised on 2017. Eosinophil pct 1.1 % [facility] Comment: Interpretive Data Percent cell count reference ranges are not reported, since discordance with absolute values may lead to misinterpretation of CBC data. Current Interpretive Data was last revised on 2017. Basophil pct 0.4 % [facility] Comment: Interpretive Data Percent cell count reference ranges are not reported, since discordance with absolute values may lead to misinterpretation of CBC data. Current Interpretive Data was last revised on 2017. Blood 11/05/2022 6:22 AM CDT 11/05/2022 7:08 AM CDT Beatrice Jones MD LAB BLOOD ORDERABLES Final Re sult [facility] [address] [facility] [place] [address] * (ABNORMAL) Basic metabolic panel (11/05/2022 6:22 AM CDT) Sodium 138 135 - 145 mmol/L [facility] Potassium, pl 3.7 3.3 - 4.9 mmol/L [facility] Chloride 106 97 - 110 mmol/L [facility] CO2 19(L) 22 - 32 mmol/L [facility] Anion gap 13 2 - 15 mmol/L [facility] BUN 10 8 - 25 mg/dL [facility] Creatinine 0.70(L) 0.80 - 1.30 mg/dL [facility] Glucose 88 70 - 199 mg/dL [facility] Comment: Interpretive Data Fasting glucose >/= 126 [...] interpretive data was last revised 2022. Calcium 8.3(L) 8.5 - 10.3 mg/dL [facility] Blood 11/05/2022 6:22 AM CDT 11/05/2022 7:08 AM CDT us Beatrice Jones MD LAB BLOOD ORDERABLES Final Re sult Performing Organization Address [facility] Co de Phone Number [facility] [address] [place] [address] * (ABNORMAL) CBC with auto differential (11/05/2022 6:22 AM CDT) Pathologist [facility] WBC 5.4 3.8 - 9.9 K/cumm [facility] Hgb 12.3(L) 13.0 - 17.5 g/dL [facility] Hct 36.3(L) 38.9 - 50.3 % [facility] Plt 190 150 - 400 K/cumm [facility] MPV 10.7 9.1 - 12.3 fL [facility] RBC 3.61(L) 4.30 - 5.80 M/cumm [facility] MCV 100.6(H) 81.3 - 96.4 fL [facility] MCH 34.1(H) 27.1 - 33.3 pg [facility] MCHC 33.9 32.3 - 35.7 g/dL [facility] RDW CV 13.5 11.1 - 14.9 % [facility] RDW SD 50.2(H) 35.7 - 48.1 fL [facility] NRBC abs 0.00 0.00 - 0.01 K/cumm [facility] Blood 11/05/2022 6:22 AM CDT 11/05/2022 7:08 AM CDT Beatrice Jones MD LAB BLOOD ORDERABLES Final Re sult Performing Organization Address [facility]/ZIP Co de Phone Number CRUZ [address] [place] [address] * (ABNORMAL) Erythrocyte sedimentation rate (11/04/2022 3:15 PM CDT) Pathologist [facility] Erythrocyte sedimentation rate 32(H) 1 - 15 mm/hr [facility] Blood 11/04/2022 3:15 PM CDT 11/04/2022 3:35 PM CDT Luke Jones MD LAB BLOOD ORDERABLE S Final Result [address] [address] * (ABNORMAL) CRP (acute phase) (11/04/2022 3:15 PM CDT) Pathologist [facility] CRP 91.2(H) <=10.0 mg/L [facility] Blood 11/04/2022 3:15 PM CDT 11/04/2022 3:35 PM CDT Luke Jones MD LAB BLOOD ORDERABLE S Final Result Performing Organization Address City/[facility] Co de Phone Number [address] [address] * Rotavirus antigen Stool (11/04/2022 12:30 PM CDT) Pathologist [facility] Rotavirus Ag Negative Negative [facility] Comment: Interpretative Data Testing performed at the [facility] using antigen detection with Xpect Rotavirus lateral flow assay. ??This test is cleared by the [place] Food and Drug Administration for fresh stool specimens. ??The performance characteristics have been verified by the [facility]. ??A negative result does not rule out the possibility of rotavirus infection in a patient. ??False-negative results may occur with specimens containing rotavirus antigen concentrations below the test detection level. ??Samples collected more than 7 days after the onset of symptoms may not contain enough rotavirus antigens to produce a positive reaction. Coinfection with bacterial, viral, or parasitic pathogens is possible. ??Testing for presence of bacterial pathogens in parallel with rotavirus testing should be considered if clinically indicated. Interpretive data was last updated 09/17/2019. Testing performed by: [facility], [address] [place] [address] Stool 11/04/2022 12:3 0 PM CDT 11/04/2022 4:52 PM CDT Noreen Moura MD LAB MICROBIOLOGY - GENERAL ORD ERABLES Final Result Performing Organization Address [facility] Co de Phone Number [facility] [address] [facility] [place] [address] * eGFR (11/04/2022 3:15 AM CDT) [facility] eGFR 91 mL/min/1. 73 m2 [facility] Comment: Interpretive Data Reference Interval Normal ?>/= [...] interpretive data was last reviewed 2021. Blood 11/04/2022 3:15 AM CDT 11/04/2022 3:57 AM CDT us Beatrice Jones MD LAB BLOOD ORDERABLES Final Re sult Performing Organization Address [facility] Co de Phone Number [facility] [address] [facility] [address] * (ABNORMAL) Differential, auto (11/04/2022 3:15 AM CDT) Pathologist [facility] Neutrophil abs 8.7(H) 1.7 - 6.5 K/cumm [facility] Imm gran abs 0.1 0.0 - 0.1 K/cumm [facility] Lymphocyte abs 1.4 0.8 - 3.3 K/cumm [facility] Monocyte abs 0.9(H) 0.2 - 0.8 K/cumm [facility] Eosinophil abs 0.0 0.0 - 0.5 K/cumm [facility] Basophil abs 0.0 0.0 - 0.1 K/cumm [facility] Neutrophil pct 78.8 % [facility] Comment: Interpretive Data Percent cell count reference ranges are not reported, since discordance with absolute values may lead to misinterpretation of CBC data. Current Interpretive Data was last revised on 2017. Imm gran pct 0.5 % [facility] Comment: Interpretive Data Percent cell count reference ranges are not reported, since discordance with absolute values may lead to misinterpretation of CBC data. Current Interpretive Data was last revised on 2017. Lymphocyte pct 12.4 % [facility] Comment: Interpretive Data Percent cell count reference ranges are not reported, since discordance with absolute values may lead to misinterpretation of CBC data. Current Interpretive Data was last revised on 2017. Monocyte pct 7.9 % [facility] Comment: Interpretive Data Percent cell count reference ranges are not reported, since discordance with absolute values may lead to misinterpretation of CBC data. Current Interpretive Data was last revised on 2017. Eosinophil pct 0.2 % [facility] Comment: Interpretive Data Percent cell count reference ranges are not reported, since discordance with absolute values may lead to misinterpretation of CBC data. Current Interpretive Data was last revised on 2017. Basophil pct 0.2 % [facility] Comment: Interpretive Data Percent cell count reference ranges are not reported, since discordance with absolute values may lead to misinterpretation of CBC data. Current Interpretive Data was last revised on 2017. Blood 11/04/2022 3:15 AM CDT 11/04/2022 3:58 AM CDT Beatrice Jones MD LAB BLOOD ORDERABLES Final Re sult Performing Organization Address [facility]/ZIP Co de Phone Number [facility] [address] [place] [place] [address] * (ABNORMAL) Basic metabolic panel (11/04/2022 3:15 AM CDT) [facility] Sodium 139 135 - 145 mmol/L [facility] Potassium, pl 4.1 3.3 - 4.9 mmol/L [facility] Chloride 109 97 - 110 mmol/L [facility] CO2 20(L) 22 - 32 mmol/L [facility] Anion gap 10 2 - 15 mmol/L [facility] BUN 15 8 - 25 mg/dL [facility] Creatinine 1.10 0.80 - 1.30 mg/dL [facility] Glucose 88 70 - 199 mg/dL [facility] Comment: Interpretive Data Fasting glucose >/= 126 [...] interpretive data was last revised 2022. Calcium 7.9(L) 8.5 - 10.3 mg/dL [facility] Blood 11/04/2022 3:15 AM CDT 11/04/2022 3:57 AM CDT Beatrice Jones MD LAB BLOOD ORDERABLES Final Re sult Performing Organization Address City/[facility]/ZIP Co de Phone Number [facility] [place] [address] * (ABNORMAL) CBC with auto differential (11/04/2022 3:15 AM CDT) [facility] WBC 11.1(H) 3.8 - 9.9 K/cumm [facility] Hgb 12.0(L) 13.0 - 17.5 g/dL [facility] Hct 36.0(L) 38.9 - 50.3 % [facility] Plt 163 150 - 400 K/cumm [facility] MPV 10.6 9.1 - 12.3 fL [facility] RBC 3.51(L) 4.30 - 5.80 M/cumm [facility] MCV 102.6(H) 81.3 - 96.4 fL [facility] MCH 34.2(H) 27.1 - 33.3 pg [facility] MCHC 33.3 32.3 - 35.7 g/dL [facility] RDW CV 13.9 11.1 - 14.9 % [facility] RDW SD 52.7(H) 35.7 - 48.1 fL [facility] NRBC abs 0.00 0.00 - 0.01 K/cumm [facility] Blood 11/04/2022 3:15 AM CDT 11/04/2022 3:58 AM CDT Beatrice Jones MD LAB BLOOD ORDERABLES Final Re sult Performing Organization Address City/[facility] Co de Phone Number [facility] [address] [place] [address] * (ABNORMAL) Calprotectin, fecal (11/03/2022 5:27 PM CDT) Calprotectin, fecal 162(H) <50.0 (Normal) mcg/g [facility] Comment: Interpretation: Abnormal (>120 mcg/g) Test Performed by: [facility] [address] [place] [address] Transmission System Operator: Christopher Storey M.D. Ph.D.; CLIA# [id number] Stool 11/03/2022 5:27 PM CDT 11/03/2022 5:38 PM CDT Romana Brush NP LAB BODY FLUIDS AND STOOLS ALICJA VALLEJO Final Result Performing Organization Address City/[facility]/ZIP Co de Phone Number [facility] [place] [address] * Cryptosporidium and giardia antigen assay Stool (11/03/2022 10:00 AM CDT) Report Final Report: Negative for Giardia lamblia antigen Negative for Cryptosporidium antigen [facility] Comment:Testing performed by : [facility], [address] [place]., [address] Organism NEGATIVE FOR GIARDIA LAMBLIA ANTIGEN [facility] Organism NEGATIVE FOR CRYPTOSPORIDIUM ANTIGEN [facility] Stool 11/03/2022 10:0 0 AM CDT 11/03/2022 1:47 PM CDT Narrative [facility] - 11/06/2022 8:39 AM CDT Received in [employer] and [employer] Interpretive data: Testing performed by the [facility] using an immunoassay that detects Cryptosporidium and Giardia antigens in stool specimens. If comprehensive examination for ova and parasites is required, please request Ova and Parasite Examination . Current interpretative data was revised August 2020. us Noreen Moura MD LAB MICROBIOLOGY - GENERAL ORD ERABLES Final Result [facility] [address] [address] * Ova and parasite examination Stool (11/03/2022 10:00 AM CDT) Report Final Report: No parasites detected. Note: treatment with antibiotics; e.g., Clindamycin, Metronidazole , Tetracycline, and Trimethoprim- sulfa can adversely affect the detection of ova and parasites. Test performed by [facility], [address] [place] [address], [id number]. [facility] Comment:Testing performed by : [facility], [address] [place] [address] Stool 11/03/2022 10:0 0 AM CDT 11/03/2022 1:46 PM CDT Narrative CRUZ ALEGRE - 11/16/2022 3:28 PM CDT Received in [employer] and [employer] Is the patient immunospressed?->Yes Has the patient had recent travel outside the [place]?->No Nelia SAM LAB MICROBIOLOGY - GENERAL ORDER YOSELYN Final Result Performing Organization Address [facility] de Phone Number [address] [address] * C. difficile testing Stool (11/03/2022 10:00 AM CDT) [facility] C. diff result Negative, DNA Negative , DNA [facility] Comment:NAP (O27) - presumpt talha negative C. diff interp Negative for toxigenic Clostridioides (Clostridium) difficile. ??Analysis performed by detection of gene(s) encoding C. difficile toxin(s). ??The nucleic acid detection assay used is cleared by the [place] Food and Drug administration and its performance characteristics have been verified by the performing laboratory. [facility] Stool 11/03/2022 10:0 0 AM CDT 11/03/2022 10:13 AM CDT Nelia SAM LAB MICROBIOLOGY - GENERAL ORDER YOSELYN Final Result Performing Organization Address [facility] de Phone Number [address] [address] * (ABNORMAL) CRP (acute phase) (11/03/2022 4:06 AM CDT) [facility] CRP 97.0(H) <=10.0 mg/L [facility] Blood 11/03/2022 4:06 AM CDT 11/03/2022 4:32 AM CDT Noreen Moura MD LAB BLOOD ORDERABLES Final Res ult Performing Organization Address [facility] Co de Phone Number [address] [address] * (ABNORMAL) Erythrocyte sedimentation rate (11/03/2022 4:06 AM CDT) Erythrocyte sedimentation rate 32(H) 1 - 15 mm/hr [facility]Z Blood 11/03/2022 4:06 AM CDT 11/03/2022 4:32 AM CDT Noreen Moura MD LAB BLOOD ORDERABLES Final Res ult CRUZ [address] [facility] [place] [address] * eGFR (11/03/2022 4:06 AM CDT) eGFR 82 mL/min/1. 73 m2 [facility] Comment: Interpretive Data Reference Interval Normal ?>/= [...] interpretive data was last reviewed 2021. Blood 11/03/2022 4:06 AM CDT 11/03/2022 4:32 AM CDT us Beatrice Jones MD LAB BLOOD ORDERABLES Final Re sult CRUZ [address] [facility] [place] [address] * (ABNORMAL) Differential, auto (11/03/2022 4:06 AM CDT) Neutrophil abs 14.7(H) 1.7 - 6.5 K/cumm [facility] Imm gran abs 0.1 0.0 - 0.1 K/cumm [facility] Lymphocyte abs 0.5(L) 0.8 - 3.3 K/cumm [facility] Monocyte abs 0.7 0.2 - 0.8 K/cumm [facility] Eosinophil abs 0.0 0.0 - 0.5 K/cumm [facility] Basophil abs 0.0 0.0 - 0.1 K/cumm [facility] Neutrophil pct 91.8 % [facility] Comment: Interpretive Data Percent cell count reference ranges are not reported, since discordance with absolute values may lead to misinterpretation of CBC data. Current Interpretive Data was last revised on 2017. Imm gran pct 0.6 % [facility] Comment: Interpretive Data Percent cell count reference ranges are not reported, since discordance with absolute values may lead to misinterpretation of CBC data. Current Interpretive Data was last revised on 2017. Lymphocyte pct 3.0 % [facility] Comment: Interpretive Data Percent cell count reference ranges are not reported, since discordance with absolute values may lead to misinterpretation of CBC data. Current Interpretive Data was last revised on 2017. Monocyte pct 4.4 % [facility] Comment: Interpretive Data Percent cell count reference ranges are not reported, since discordance with absolute values may lead to misinterpretation of CBC data. Current Interpretive Data was last revised on 2017. Eosinophil pct 0.0 % [facility] Comment: Interpretive Data Percent cell count reference ranges are not reported, since discordance with absolute values may lead to misinterpretation of CBC data. Current Interpretive Data was last revised on 2017. Basophil pct 0.2 % [facility] Comment: Interpretive Data Percent cell count reference ranges are not reported, since discordance with absolute values may lead to misinterpretation of CBC data. Current Interpretive Data was last revised on 2017. Blood 11/03/2022 4:06 AM CDT 11/03/2022 4:32 AM CDT Beatrice Jones MD LAB BLOOD ORDERABLES Final Re sult Performing Organization Address [facility] Co de Phone Number CRUZ [address] [place] [address] * (ABNORMAL) Basic metabolic panel (11/03/2022 4:06 AM CDT) Pathologist [facility] Sodium 134(L) 135 - 145 mmol/L [facility] Potassium, pl 4.0 3.3 - 4.9 mmol/L [facility] Chloride 104 97 - 110 mmol/L [facility] CO2 19(L) 22 - 32 mmol/L [facility] Anion gap 11 2 - 15 mmol/L [facility] BUN 16 8 - 25 mg/dL [facility] Creatinine 1.20 0.80 - 1.30 mg/dL [facility] Glucose 149 70 - 199 mg/dL [facility] Comment: Interpretive Data Fasting glucose >/= 126 [...] interpretive data was last revised 2022. Calcium 8.0(L) 8.5 - 10.3 mg/dL [facility] Blood 11/03/2022 4:06 AM CDT 11/03/2022 4:32 AM CDT Beatrice Jones MD LAB BLOOD ORDERABLES Final Re sult Performing Organization Address [facility] Co de Phone Number [address] [place] [address] * (ABNORMAL) CBC with auto differential (11/03/2022 4:06 AM CDT) WBC 16.0(H) 3.8 - 9.9 K/cumm [facility] Hgb 12.3(L) 13.0 - 17.5 g/dL [facility] Hct 36.3(L) 38.9 - 50.3 % [facility] Plt 167 150 - 400 K/cumm [facility] MPV 10.3 9.1 - 12.3 fL [facility] RBC 3.54(L) 4.30 - 5.80 M/cumm [facility] MCV 102.5(H) 81.3 - 96.4 fL [facility] MCH 34.7(H) 27.1 - 33.3 pg [facility] MCHC 33.9 32.3 - 35.7 g/dL [facility] RDW CV 13.6 11.1 - 14.9 % [facility] RDW SD 51.9(H) 35.7 - 48.1 fL [facility] NRBC abs 0.00 0.00 - 0.01 K/cumm [facility] Blood 11/03/2022 4:06 AM CDT 11/03/2022 4:32 AM CDT Beatrice Jones MD LAB BLOOD ORDERABLES Final Re sult Performing Organization Address [facility] de Phone Number [address] [place] [address] * Lactate (11/03/2022 4:06 AM CDT) Pathologist [facility] Lactate 1.4 0.7 - 2.0 mmol/L [facility] Blood 11/03/2022 4:06 AM CDT 11/03/2022 4:30 AM CDT Beatrice Jones MD LAB BLOOD ORDERABLES Final Re sult Performing Organization Address [facility]/ZIP Co de Phone Number [address] [place] [address] * Stool culture Stool Rectum (11/03/2022 3:30 AM CDT) Direct Specimen Exam Shiga Toxin Testing: Antigen detection assay for Shiga-toxin NEGATIVE for Shiga Toxin 1 and Shiga Toxin 2. CRUZ Comment:Testing performed by : [facility], [address] [place]., [address] Report Final Report: No growth of enteric bacterial pathogens CRUZ Comment:Testing performed by : [facility], [address] [place]., [address] Stool (Rectum) 11/03/2022 3: 30 AM CDT 11/03/2022 6:39 AM CDT Narrative CRUZ - 11/07/2022 2:31 PM CDT Testing performed by [facility] ([phone]). Routine stool cultures include procedures to detect Salmonella, Shigella, Edwardsiella, Aeromonas, Pleisiomonas, Campylobacter, Yersinia, E. coli O157, and Shiga-like toxins. ?? Vibrio is cultured only upon special request. ??If Vibrio is suspected, please call the laboratory at [phone]. Interpretive data was last updated November 06, 2016. us Nelia SAM LAB MICROBIOLOGY - GENERAL ORDER YOSELYN Final Result [facility] [place] [address] * Blood culture Blood Forearm, right (11/02/2022 10:25 PM CDT) Report Final Report: No growth CRUZ Comment:Testing performed by : [facility], [address] [place] [place]., [address] Blood (Forearm, right) 11/02/2022 10:25 PM CDT 11/03/2022 3:58 AM CDT Narrative CRUZ - 11/07/2022 7:00 AM CDT From a different site than #1. Collection->Peripheral 1. ?Blood cultures are incubated for 4 days on a continuously monitored blood culture system. The first report of a negative culture is issued within 24 hours of receipt of the specimen in the laboratory. 2. ?Positive culture results are reported as soon as they are detected. 3. ?The most important factor for detection of microbes in the setting of bloodstream infection is the volume of blood submitted for culture. Failure to collect an optimal blood volume can result in false negative blood cultures. For pediatric patients, the recommended blood volume to collect is 1 mL of blood per year of patient age (up to 20 mL) per blood culture set. For adult patients, 20 mL of blood, divided equally between aerobic and anaerobic blood culture bottles, is recommended for each blood culture set. 4. ?For blood cultures with Gram-positive cocci, a rapid molecular test for organism identification may be performed using the [employer] Gram-Positive Blood Culture Assay. This assay detects microbial DNA in positive blood culture broth via hybridization of target DNA to capture oligonucleotides on a microarray. This assay has been cleared by the [place] Food and Drug Administration and its performance characteristics have been verified by the [facility]. 5. ?For questions about this culture, contact the Microbiology Laboratory at [phone]. Interpretive data was last revised on 2019. us Nelia SAM LAB MICROBIOLOGY - GENERAL ORDER YOSELYN Final Result [facility] ALEGRE [address] [facility] Department [place] [address] * Blood culture Blood Antecubital, right (11/02/2022 10:24 PM CDT) Report Final Report: No growth [facility] ALEGRE Comment:Testing performed by : [facility] [place], [address] [place] [address] Blood (Antecubital, right) 11/02/2022 10:24 PM CDT 11/03/2022 3:58 AM CDT Narrative CRUZ ALEGRE - 11/07/2022 7:00 AM CDT Collection->Peripheral 1. ?Blood cultures are incubated for 4 days on a continuously monitored blood culture system. The first report of a negative culture is issued within 24 hours of receipt of the specimen in the laboratory. 2. ?Positive culture results are reported as soon as they are detected. 3. ?The most important factor for detection of microbes in the setting of bloodstream infection is the volume of blood submitted for culture. Failure to collect an optimal blood volume can result in false negative blood cultures. For pediatric patients, the recommended blood volume to collect is 1 mL of blood per year of patient age (up to 20 mL) per blood culture set. For adult patients, 20 mL of blood, divided equally between aerobic and anaerobic blood culture bottles, is recommended for each blood culture set. 4. ?For blood cultures with Gram-positive cocci, a rapid molecular test for organism identification may be performed using the [employer] Gram-Positive Blood Culture Assay. This assay detects microbial DNA in positive blood culture broth via hybridization of target DNA to capture oligonucleotides on a microarray. This assay has been cleared by the [place] Food and Drug Administration and its performance characteristics have been verified by the [facility]. 5. ?For questions about this culture, contact the Microbiology Laboratory at [phone]. Interpretive data was last revised on 2019. Nelia SAM LAB MICROBIOLOGY - GENERAL ORDER YOSELYN Final Result CRUZ [address] [facility] Department [place] [address] * Urine culture Urine (11/02/2022 9:12 PM CDT) Report Final Report: Less than 100,000 colonies/mL (clinically insignificant growth based on current clinical standards) CRUZ ALEGRE Comment:Testing performed by : [facility], [address] [facility] [place]., [address] Organism (CLINICALLY INSIGNIFICANT GROWTH [facility] ALEGRE Urine 11/02/2022 9:12 PM CDT 11/03/2022 1:06 AM CDT Narrative CRUZ ALEGRE - 11/04/2022 8:41 AM CDT Urine culture reflexed based upon urinalysis results. Testing performed by [facility] ([phone]) Nelia SAM LAB MICROBIOLOGY - GENERAL ORDER YOSELYN Final Result Performing Organization Address [facility] Co de Phone Number CRUZ ALEGRE [address] [place] [phone] * (ABNORMAL) Urinalysis, microscopic only (11/02/2022 9:12 PM CDT) WBC, ur >50(A) 0 - 5 /HPF [facility] RBC, ur 6-10(A) 0 - 2 /HPF [facility] Epithelial cells, squamous, ur 1-5 0 - 5 /HPF [facility] Bacteria, ur Trace(A) [facility] Mucous, ur Present(A) [facility] Culture Reflex Comment Reflex to urine culture will be performed. [facility] Urine 11/02/2022 9:12 PM CDT 11/02/2022 9:17 PM CDT Nelia SAM LAB URINE ORDERABLES Final Resul t Performing Organization Address [facility] de Phone Number CRUZ [address] [address] * (ABNORMAL) Urinalysis reflex to microscopic and culture Urine (11/02/2022 9:12 PM CDT) Color, ur Reyna Yellow [facility] Clarity, ur Clear Clear [facility] Specific gravity, ur 1.035(H) 1.003 - 1.030 [facility] pH, urine 5.0 [facility] Protein, ur ql 2+(A) Negative [facility] Glucose, ur ql Negative Negative [facility] Ketones, ur Trace Negative [facility] Bilirubin, ur Negative Negative [facility] Blood, ur Negative Negative [facility] Urobilinogen, ur <2.0 <2.0 mg/dL [facility] Nitrite, ur Negative Negative [facility] Leukocyte esterase, ur Negative Negative [facility] UA reflex comment Reflex to microscopic UA will be performed. [facility] Urine 11/02/2022 9:12 PM CDT 11/02/2022 9:17 PM CDT Narrative CRUZ - 11/02/2022 9:24 PM CDT ?? Urine pH is affected by diet, medications, systemic acid-base disturbances, and renal tubular function. ??pH may affect urinary stone formation. ??For example, urine pH below 6.0 may help reduce the tendency for calcium phosphate stones and pH greater than 6.0 may reduce the tendency for uric acid stone formation. Source: [employer]. Last revised 07-12-2017 us Nelia SAM LAB MICROBIOLOGY - GENERAL ORDER YOSELYN Final Result CRUZ [address] [facility] [place] [address] * CT Abdomen Pelvis W Contrast (11/02/2022 7:10 PM CDT) Anatomical Region Laterality Modality Body N/A Computed Tomogra phy 11/02/2022 7:39 PM CDT Narrative 11/02/2022 7:56 PM CDT EXAM DESCRIPTION: ?? CT ABDOMEN PELVIS W CONTRAST REASON FOR STUDY: ?? Abdominal pain, acute, nonlocalized ?? Abdominal pain, acute, nonlocalized, back pain , Crohn's disease TECHNIQUE: CT scan of the abdomen and pelvis performed with intravenous and ?? without ??oral contrast using helical scanning technique with dynamic intravenous contrast injection. Reconstructed coronal and sagittal MPR images reviewed. All images stored on PACS. Automated exposure control was used as a dose optimization technique for this examination. CONTRAST TYPE/DOSE: ?? 92mL of IOHEXOL 350 MG IODINE/ML INTRAVENOUS SOLUTION ?? injected COMPARISON: ?? 02/06/2018 , 05/24/2018 REFERENCE: Per ACR white paper recommendations, unless otherwise specified no follow-up imaging is recommended for incidental renal and adrenal lesions per consensus recommendations based on imaging criteria. Further lab evaluation could be pursued based on clinical findings. FINDINGS: LOWER CHEST: ?? Mild subsegmental atelectasis. ??Moderate-sized hiatal hernia. ??No pleural effusion. ??Imaged portions of the heart are normal. LIVER: ?? Normal size. ??No identified cystic or solid masses. ?? Mild diffuse hepatic steatosis. ??The hepatic and portal veins are patent. GALLBLADDER: ?? Normal. BILE DUCTS: ?? No intrahepatic or extrahepatic ductal dilatation. SPLEEN: ?? Normal size. ??No focal lesions. PANCREAS: ?? No identified cystic or solid masses. No significant calcifications. No adjacent inflammation or peripancreatic fluid collections. Pancreatic duct not dilated. ?? ADRENALS: ?? Normal. KIDNEYS/URINARY TRACT: ?? No identified significant cystic or solid masses. No visualized stones. No hydronephrosis or hydroureter. Symmetric enhancement. ? Urinary bladder is unremarkable. GI: ?? Moderate-sized hiatal hernia. ??The stomach is otherwise normal. ??There is mucosal hyperemia of several nondilated and fluid-filled loops of small bowel throughout the abdomen which could reflect early developing acute enteritis or reflect diarrhea state. ??Prior ileocecectomy with primary ileocolic anastomosis in the right lower quadrant. ??There is liquid stool within the ascending colon and majority of the transverse colon with mild mucosal hyperemia likely reflective of a rapid bowel transit state with no definitive CT evidence of acute colitis at this time. ??There is no evidence of colonic or small bowel perforation. ??There is no evidence of fibro stenosis or bowel fistulization. PERITONEUM: ?? No ascites or free air. ?? There is geographic hyperattenuation of the mesenteric fat in the mid abdomen with associated prominent but nonenlarged mesenteric lymph nodes which could reflect mesenteric panniculitis in the appropriate clinical setting or sequela of mesenteric panniculitis. RETROPERITONEUM: ?? No mass or adenopathy. REPRODUCTIVE: ?? No significant abnormality. VASCULATURE: ?? No abdominal aortic aneurysm. ?? The abdominal aorta and its branches are patent. MUSCULOSKELETAL: ?? No acute fractures or aggressive osseous lesions. ??No CT evidence of sacroiliitis OTHER: ?? Small fat containing periumbilical ventral abdominal wall hernia. IMPRESSION: 1. ??History of Crohn's disease with prior ileocecectomy and primary ileocolic anastomosis in the right lower quadrant. 2. Mucosal hyperemia of several nondilated and fluid-filled loops of small bowel throughout the abdomen which could reflect early developing acute enteritis (either inflammatory or infectious in etiology), or reflect diarrhea state. ??Liquid stool within the ascending colon and majority of the transverse colon with mild mucosal hyperemia likely reflective of a rapid bowel transit state with no definitive CT evidence of acute colitis at this time. ??No colonic or small bowel perforation. ??No evidence of bowel fibrostenosis or bowel fistulization. THIS IS AN ELECTRONICALLY VERIFIED FINAL REPORT 11/02/2022 7:56 PM - Electronically signed by ??Lyubov Hudson M.D. AT D: ??11/02/2022 7:56 PM T: Report ID: [id number] Reading Location: ??[id number] Procedure Note Lyubov Hudson MD - 11/02/2022 EXAM DESCRIPTION: CT ABDOMEN PELVIS W CONTRAST REASON FOR STUDY: Abdominal pain, acute, nonlocalized Abdominal pain, acute, nonlocalized, back pain , Crohn's disease TECHNIQUE: CT scan of the abdomen and pelvis performed with intravenousand without oral contrast using helical scanning technique with dynamic intravenous contrast injection. Reconstructed coronal and sagittal MPRimages reviewed. All images stored on PACS. Automated exposure control was used as a dose optimization technique forthis examination. CONTRAST TYPE/DOSE: 92mL of IOHEXOL 350 MG IODINE/ML INTRAVENOUSSOLUTION injected COMPARISON: 02/06/2018 , 05/24/2018 REFERENCE: Per ACR white paper recommendations, unless otherwise specifiedno follow-up imaging is recommended for incidental renal and adrenal lesionsper consensus recommendations based on imaging criteria. Further labevaluation could be pursued based on clinical findings. FINDINGS: LOWER CHEST: Mild subsegmental atelectasis. Moderate-sizedhiatal hernia. No pleural effusion. Imaged portions of the heart are normal. LIVER: Normal size. No identified cystic or solid masses. Milddiffuse hepatic steatosis. The hepatic and portal veins are patent. GALLBLADDER: Normal. BILE DUCTS: No intrahepatic or extrahepatic ductal dilatation. SPLEEN: Normal size. No focal lesions. PANCREAS: No identified cystic or solid masses. No significant calcifications. No adjacent inflammation or peripancreatic fluidcollections. Pancreatic duct not dilated. ADRENALS: Normal. KIDNEYS/URINARY TRACT: No identified significant cystic or solid masses.No visualized stones. No hydronephrosis or hydroureter. Symmetricenhancement. Urinary bladder is unremarkable. GI: Moderate-sized hiatal hernia. The stomach is otherwise normal.There is mucosal hyperemia of several nondilated and fluid-filled loops of small bowel throughout the abdomen which could reflect early developing acute enteritis or reflect diarrhea state. Prior ileocecectomy with primary ileocolic anastomosis in the right lower quadrant. There is liquid stool within the ascending colon and majority of the transverse colon with mild mucosal hyperemia likely reflective of a rapid bowel transit state with no definitive CT evidence of acute colitis at this time. There is noevidence of colonic or small bowel perforation. There is no evidence of fibrostenosis or bowel fistulization. PERITONEUM: No ascites or free air. There is geographichyperattenuation of the mesenteric fat in the mid abdomen with associated prominent but nonenlarged mesenteric lymph nodes which could reflect mesentericpanniculitis in the appropriate clinical setting or sequela of mesenteric panniculitis. RETROPERITONEUM: No mass or adenopathy. REPRODUCTIVE: No significant abnormality. VASCULATURE: No abdominal aortic aneurysm. The abdominal aorta and its branches are patent. MUSCULOSKELETAL: No acute fractures or aggressive osseous lesions. NoCT evidence of sacroiliitis OTHER: Small fat containing periumbilical ventral abdominal wall hernia. IMPRESSION: 1. History of Crohn's disease with prior ileocecectomy and primary ileocolic anastomosis in the right lower quadrant. 2. Mucosal hyperemia of several nondilated and fluid-filled loops of small bowel throughout the abdomen which could reflect early developing acute enteritis (either inflammatory or infectious in etiology), or reflectdiarrhea state. Liquid stool within the ascending colon and majority of thetransverse colon with mild mucosal hyperemia likely reflective of a rapid boweltransit state with no definitive CT evidence of acute colitis at this time. No colonic or small bowel perforation. No evidence of bowel fibrostenosis or bowel fistulization. THIS IS AN ELECTRONICALLY VERIFIED FINAL REPORT 11/02/2022 7:56 PM - Electronically signed by Lyubov Hudson M.D. AT T: Report ID: [id number] Reading Location: [id number] Nelia SAM IM CT PROCEDURES Final Result * Magnesium (11/02/2022 5:18 PM CDT) Magnesium 1.5 1.4 - 2.5 mg/dL [facility] Blood 11/02/2022 5:18 PM CDT 11/02/2022 5:21 PM CDT Nelia SAM LAB BLOOD ORDERABLES Final Resul t Performing Organization Address [facility] de Phone Number [address] [address] * Phosphorus (11/02/2022 5:18 PM CDT) Pathologist [facility] Phosphorus, pl 2.3 2.3 - 4.5 mg/dL [facility] Blood 11/02/2022 5:18 PM CDT 11/02/2022 5:21 PM CDT Nelia SAM LAB BLOOD ORDERABLES Final Resul t Performing Organization Address [facility] [facility] de Phone Number [address] [address] * eGFR (11/02/2022 5:18 PM CDT) Pathologist [facility] eGFR 68 mL/min/1. 73 m2 [facility] Comment: Interpretive Data Reference Interval Normal ?>/= 90 mL/min/1.73m2 Mildly decreased* ? 60 - 89 mL/min/1.73m2 Mildly to moderately decreased ?45 - 59 mL/min/1.73m2 Moderately to severely decreased ??30 - 44 mL/min/1.73m2 Severely decreased ?15 - 29 mL/min/1.73m2 Kidney Failure ?< 15 ??mL/min/1.73m2 *Relative to young adult level Estimated glomerular filtration rate is determined by the 2021 CKD-EPI equation recommended by the National Kidney [...] interpretive data was last reviewed 2021. Blood 11/02/2022 5:18 PM CDT 11/02/2022 5:21 PM CDT [email or web address] [place] LAB BLOOD ORDERABLES Final Resul t Performing Organization Address [facility] Co de Phone Number [address] [place] [address] * Lipase (11/02/2022 5:18 PM CDT) Pathologist [facility] Lipase 21 10 - 99 Units/L [facility] Blood 11/02/2022 5:18 PM CDT 11/02/2022 5:21 PM CDT [employer] [place] LAB BLOOD ORDERABLES Final Resul t Performing Organization Address [facility] de Phone Number [address] [address] * (ABNORMAL) Comprehensive metabolic panel (11/02/2022 5:18 PM CDT) Sodium 133(L) 135 - 145 mmol/L [facility] Potassium, pl 4.6 3.3 - 4.9 mmol/L [facility] Chloride 101 97 - 110 mmol/L [facility] CO2 19(L) 22 - 32 mmol/L [facility] Anion gap 13 2 - 15 mmol/L [facility] BUN 20 8 - 25 mg/dL [facility] Creatinine 1.40(H) 0.80 - 1.30 mg/dL [facility] Glucose 117 70 - 199 mg/dL [facility] Comment: Interpretive Data Fasting glucose >/= 126 [...] interpretive data was last revised 2022. Calcium 8.0(L) 8.5 - 10.3 mg/dL [facility] Bilirubin, total 0.5 0.1 - 1.2 mg/dL [facility] Protein, pl 7.5 6.5 - 8.5 g/dL [facility] Albumin 4.2 3.5 - 5.0 g/dL [facility] Alk phos 74 40 - 130 Units/L [facility] ALT 27 7 - 55 Units/L [facility] AST 31 10 - 50 Units/L [facility] Comment:MODERATE HEMOLYZED: Hemolysis interferes with the above test. Blood 11/02/2022 5:18 PM CDT 11/02/2022 5:21 PM CDT us Nelia SAM LAB BLOOD ORDERABLES Final Resul t [facility] [address] [facility] [place] [address] * (ABNORMAL) Differential, auto (11/02/2022 4:49 PM CDT) Neutrophil abs 9.2(H) 1.7 - 6.5 K/cumm [facility] Imm gran abs 0.0 0.0 - 0.1 K/cumm [facility] Lymphocyte abs 0.6(L) 0.8 - 3.3 K/cumm [facility] Monocyte abs 0.8 0.2 - 0.8 K/cumm [facility] Eosinophil abs 0.2 0.0 - 0.5 K/cumm [facility] Basophil abs 0.0 0.0 - 0.1 K/cumm [facility] Neutrophil pct 84.7 % [facility] Comment: Interpretive Data Percent cell count reference ranges are not reported, since discordance with absolute values may lead to misinterpretation of CBC data. Current Interpretive Data was last revised on 2017. Imm gran pct 0.3 % [facility] Comment: Interpretive Data Percent cell count reference ranges are not reported, since discordance with absolute values may lead to misinterpretation of CBC data. Current Interpretive Data was last revised on 2017. Lymphocyte pct 5.8 % [facility] Comment: Interpretive Data Percent cell count reference ranges are not reported, since discordance with absolute values may lead to misinterpretation of CBC data. Current Interpretive Data was last revised on 2017. Monocyte pct 7.1 % [facility] Comment: Interpretive Data Percent cell count reference ranges are not reported, since discordance with absolute values may lead to misinterpretation of CBC data. Current Interpretive Data was last revised on 2017. Eosinophil pct 1.7 % [facility] Comment: Interpretive Data Percent cell count reference ranges are not reported, since discordance with absolute values may lead to misinterpretation of CBC data. Current Interpretive Data was last revised on 2017. Basophil pct 0.4 % [facility] Comment: Interpretive Data Percent cell count reference ranges are not reported, since discordance with absolute values may lead to misinterpretation of CBC data. Current Interpretive Data was last revised on 2017. Blood 11/02/2022 4:49 PM CDT 11/02/2022 4:54 PM CDT us [employer] [place] LAB BLOOD ORDERABLES Final Resul t Performing Organization Address City/[facility] Co de Phone Number [facility] [address] [facility] [place] [address] * Sepsis Lactate w/ Reflex (11/02/2022 4:49 PM CDT) Sepsis Lactate 1.5 0.7 - 2.0 mmol/L [facility] Blood 11/02/2022 4:49 PM CDT 11/02/2022 4:53 PM CDT [employer] [place] LAB BLOOD ORDERABLES Final Resul t Performing Organization Address City/[facility]/ZIP Co de Phone Number [facility] [address] [address] * (ABNORMAL) CBC with auto differential (11/02/2022 4:49 PM CDT) WBC 10.8(H) 3.8 - 9.9 K/cumm [facility] Hgb 14.7 13.0 - 17.5 g/dL [facility] Hct 42.7 38.9 - 50.3 % [facility] Plt 199 150 - 400 K/cumm [facility] MPV 10.1 9.1 - 12.3 fL [facility] RBC 4.22(L) 4.30 - 5.80 M/cumm [facility] MCV 101.2(H) 81.3 - 96.4 fL [facility] MCH 34.8(H) 27.1 - 33.3 pg [facility] MCHC 34.4 32.3 - 35.7 g/dL [facility] RDW CV 13.7 11.1 - 14.9 % [facility] RDW SD 50.8(H) 35.7 - 48.1 fL [facility] NRBC abs 0.00 0.00 - 0.01 K/cumm [facility] Blood 11/02/2022 4:49 PM CDT 11/02/2022 4:54 PM CDT us Nelia SAM LAB BLOOD ORDERABLES Final Resul t Performing Organization Address [facility] de Phone Number [facility] [address] [address] documented in this encounter Visit Diagnoses Diagnosis Abdominal pain- Primary Abdominal pain, unspecified site Abdominal pain Abdominal pain, unspecified site Diarrhea, unspecified type History of Crohn's disease Hypocalcemia HERMELINDO (acute kidney injury) (HCC) Crohn's disease of both small and large intestine with intestinal obstruction (HCC) Enteritis Other and unspecified noninfectious gastroenteritis and colitis Acute cystitis Acute kidney injury (HCC) 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 2 F Given 11/03/2022 10:02 AM CDT 650 mg Given 11/02/2022 11:57 PM CDT 650 mg adalimumab (HUMIRA (CF) PEN) 40 mg/0.4 mL injection 40 mg 40 mg, subcutaneous, Every 7 days, First dose on Sun11/04/22 at 1400, Refrigerate Given 11/04/2022 1:44 PM CDT 40 mg Other (Comment) allopurinoL (ZYLOPRIM) tablet 100 mg 100 mg, oral, Daily, First dose on Sun11/04/22 at 1030 Given 11/07/2022 8:58 AM CDT 100 mg Given 11/06/2022 9:23 AM CDT 100 mg Given 11/05/2022 9:03 AM CDT 100 mg amoxicillin-clavulanate (AUGMENTIN) 875-125 mg per tablet 875 mg of amoxicillin 875 mg of amoxicillin, oral, Once, On Sun11/07/22 at 1315, For 1 dose, Please give now prior to discharge, Indications: Abdominal/Pelvic InfectionIndications:Abdominal /Pelvic Infection Given 11/07/2022 2:23 PM CDT 875 mg of amoxicillin calcium gluconate 1 g/50 mL in sodium chloride (premix) solution 1 g 1 g, intravenous, Administer over 60 Minutes, Once, On Sun11/02/22 at 2116, For 1 dose, Room temperature only, Indications: hypocalcemiaIndications:hypoca lcemia New Bag 11/02/2022 9:54 PM CDT 1 g Carrier Fluids for Secondary Infusion - 0.9% Sodium Chloride 30 mL, intravenous, As needed, For priming tubing and/or flushing, Starting on Sun11/03/22 at 0033, 0-250ml/hr to flush line after IV infusions when no maintenance IV ordered. Infuse 30mL at the same rate as the secondary infusion. Run as primary IV, not intended for KVO colestipoL (COLESTID) tablet 1 g (PATIENT HOME SUPPLIED MEDICATION) 1 g, oral, 4 times daily PRN, bile acid sequestrant, Starting on Sun11/03/22 at 1644, PRN diarrhea Schedule other medications 1 hour before or 4 hours after colestipol. Med/Strength/Formulation: colestipol 1g Do not crush, chew, cut, dissolve, open or otherwise manipulate tablet/capsule. Given 11/06/2022 9:16 PM CDT 1 g Given 11/03/2022 8:38 PM CDT 1 g enoxaparin (LOVENOX) syringe 40 mg 40 mg, subcutaneous, Daily (for enoxaparin), First dose on Sun11/03/22 at 2100, Indications: VTE ProphylaxisIndications:VTE Prophylaxis Given 11/06/2022 9:15 PM CDT 40 mg Left Lower Abdomen Given 11/05/2022 8:35 PM CDT 40 mg Le ft Lower Abdomen Given 11/04/2022 8:35 PM CDT 40 mg Le ft Lower Abdomen folic acid (FOLVITE) tablet 1 mg 1 mg, oral, Daily, First dose on 11/04/22 at 1030 Given 11/07/2022 8:58 AM CDT 1 mg Given 11/06/2022 9:23 AM CDT 1 mg Given 11/05/2022 9:03 AM CDT 1 mg HYDROmorphone (DILAUDID) injection 0.2 mg 0.2 mg, intravenous, Administer over 2 Minutes, Once, On Sun11/02/22 at 2041, For 1 dose Given 11/02/2022 8:52 PM CDT 0.2 mg iohexoL (OMNIPAQUE) 350 mg iodine/mL injection solution 100 mL 100 mL, intravenous, Once in imaging, contrast, Starting on Sun11/02/22 at 1911, For 1 dose Contrast Given 11/02/2022 7:11 PM CDT 92 mL mercaptopurine (PURINETHOL) tablet 50 mg 50 mg, oral, Daily, First dose on Sun11/04/22 at 1400, Indications: Crohn's DiseaseIndications:Crohn's Disease Given 11/07/2022 8:58 AM CDT 50 mg Given 11/06/2022 9:23 AM CDT 50 mg Given 11/05/2022 9:03 AM CDT 50 mg methylPREDNISolone sodium succinate (SOLU-medrol) preservative free injection 125 mg 125 mg, intravenous, Administer over 3 Minutes, Once, On Stefani 11/02/22 at 2036, For 1 dose Given 11/02/2022 8:54 PM CDT 125 mg metoclopramide (REGLAN) injection 10 mg 10 mg, intravenous, Every 8 hours PRN, other, Nausea/vomiting, Starting on Sun11/03/22 at 0156 ondansetron (ZOFRAN) injection 4 mg 4 mg, intravenous, Administer over 2 Minutes, Once, On Stefani 11/02/22 at 2036, For 1 dose Given 11/02/2022 8:52 PM CDT 4 mg ondansetron (ZOFRAN) injection 4 mg 4 mg, intravenous, Administer over 2 Minutes, Every 6 hours PRN, nausea, vomiting, Starting on Sun11/03/22 at 0156 piperacillin-tazobactam (ZOSYN) 3.375 gram/115 mL in sodium chloride 0.9% (premix) 3.375 g 3.375 g, intravenous, at 28.8 mL/hr, Administer over 4 Hours, Every 8 hours scheduled, First dose on Sun11/03/22 at 0600, Dose and frequency are based on a 4hr infusion time and may be inappropriate for shorter infusions. Please infuse via secondary line to ensure complete administration., Indications: Abdominal/Pelvic Infection, Urinary Tract/Genitourinary InfectionIndications:Abdominal/Pe lvic Infection,Urinary Tract/Genitourinary Infection New Bag 11/07/2022 5:39 AM CDT 3.375 g 2 8.8 mL/hr New Bag 11/06/2022 9:15 PM CDT 3.375 g 28.8 mL/hr New Bag 11/06/2022 1:46 PM CDT 3.375 g 28.8 mL/hr piperacillin-tazobactam (ZOSYN) 4.5 g in sodium chloride 0.9% 100 mL IVPB 4.5 g, intravenous, at 200 mL/hr, Administer over 30 Minutes, Once, On Stefani 11/02/22 at 2213, For 1 dose, Dose and frequency are based on a 4hr infusion time and may be inappropriate for shorter infusions. Please infuse via secondary line to ensure complete administration. Mini-Bag Plus bag, Indications: Abdominal/Pelvic InfectionIndications:Abdominal/Pe lvic Infection New Bag 11/03/2022 12:28 AM CDT 4.5 g 200 mL/hr sodium chloride 0.9% bolus 1,000 mL 1,000 mL, intravenous, at 1,000 mL/hr, Administer over 1 Hours, Once, On Stefani 11/02/22 at 1817, For 1 dose New Bag 11/02/2022 6:27 PM CDT 1,000 mL 1000 mL/hr sodium chloride 0.9% bolus 1,000 mL 1,000 mL, intravenous, at 1,000 mL/hr, Administer over 1 Hours, Once, On Stefani 11/02/22 at 2000, For 1 dose New Bag 11/02/2022 8:08 PM CDT 1,000 mL 1000 mL/hr sodium chloride 0.9% flush 0.5-20 mL 0.5-20 mL, intra-catheter, Every 8 hours scheduled, First dose on [facility] 11/04/22 at 1530, Pre-Op/Floor (GI), Flush volume based on line type and size. Given 11/05/2022 6:07 AM CDT 10 mL Given 11/04/2022 9:50 PM CDT 10 mL Given 11/04/2022 3:00 PM CDT 10 mL sodium chloride 0.9% infusion 50 mL/hr, intravenous, Continuous, Starting on Sun11/03/22 at 0230 11/07/2022 5:39 AM CDT 50 mL/hr 50 mL/hr 11/05/2022 1:59 PM CDT 50 mL/hr 50 mL/hr 11/05/2022 9:35 AM CDT 150 mL/hr documented in this encounter Discontinued Medications Medication Sig Discontinue Reason Start Date End Da te balsalazide (COLAZAL) 750 mg capsuleIndications:Ulc erative Colitis Take 3 capsules three times daily. Reorder 09/13/2020 11/07/2022 docosahexaenoic acid-epa 120-180 mg capsule Stop Taking at Discharge 11/07/2022 documented as of this encounter Active and Recently Administered Medications Times are shown in CDT. Scheduled Medication Order 11/05/2022 11/06/2022 11/07/2022 adalimumab (HUMIRA (CF) PEN) 40 mg/0.4 mL injection 40 mg 40 mg, subcutaneous, Every 7 days, First dose on Sun11/04/22 at 1400, Refrigerate 922 ([facility] Hold - Provider: Automatic Transfer Provider - Reason: Patient not available)1048 ([facility] Unhold - Provider: Automatic Transfer Provider) allopurinoL (ZYLOPRIM) tablet 100 mg 100 mg, oral, Daily, First dose on Sun11/04/22 at 1030 0903 (Given - Provider: Anne Phan RN)922 ([facility] Hold - Provider: Automatic Transfer Provider - Reason: Patient not available)1048 ([facility] Unhold - Provider: Automatic Transfer Provider) 09 (Given - Provider: Henry Garrett, JOSH) 0858 (Given - Provider: Henry Garrett RN) amoxicillin-clavulanate (AUGMENTIN) 875-125 mg per tablet 875 mg of amoxicillin (COMPLETED) 875 mg of amoxicillin, oral, Once, On Sun11/07/22 at 1315, For 1 dose, Please give now prior to discharge, Indications: Abdominal/Pelvic Infection 1423 (Given - Provider: Henry Garrett RN) enoxaparin (LOVENOX) syringe 40 mg 40 mg, subcutaneous, Daily (for enoxaparin), First dose on Sun11/03/22 at 2100, Indications: VTE Prophylaxis 922 ([facility] Hold - Provider: Automatic Transfer Provider - Reason: Patient not available)1048 ([facility] Unhold - Provider: Automatic Transfer Provider)2034 (Given - Provider: Olena Pelayo, JSOH) 2114 (Given - Provider: Bessie Lezama RN) folic acid (FOLVITE) tablet 1 mg 1 mg, oral, Daily, First dose on 11/04/22 at 1030 0903 (Given - Provider: Anne Phan RN)09 ([facility] Hold - Provider: Automatic Transfer Provider - Reason: Patient not available)104 ([facility] Unhold - Provider: Automatic Transfer Provider) 09 (Given - Provider: Henry Garrett RN) 0858 (Given - Provider: Henry Garrett RN) mercaptopurine (PURINETHOL) tablet 50 mg 50 mg, oral, Daily, First dose on 11/04/22 at 1400, Indications: Crohn's Disease 09 (Given - Provider: Anne Phan RN)0923 ([facility] Hold - Provider: Automatic Transfer Provider - Reason: Patient not available)1048 ([facility] Unhold - Provider: Automatic Transfer Provider) 0923 (Given - Provider: Henry Garrett, JOSH) 0858 (Given - Provider: Henry Garrett, JOSH) piperacillin-tazobactam (ZOSYN) 3.375 gram/115 mL in sodium chloride 0.9% (premix) 3.375 g (CANCELED) 3.375 g, intravenous, at 28.8 mL/hr, Administer over 4 Hours, Every 8 hours scheduled, First dose on Sun11/03/22 at 0600, Dose and frequency are based on a 4hr infusion time and may be inappropriate for shorter infusions. Please infuse via secondary line to ensure complete administration., Indications: Abdominal/Pelvic Infection, Urinary Tract/Genitourinary Infection 0607 (New Bag - Provider: Olena Pelaoy RN)0923 ([facility] Hold - Provider: Automatic Transfer Provider - Reason: Patient not available)1048 ([facility] Unhold - Provider: Automatic Transfer Provider)1359 (New Bag - Provider: Anne Phan RN)2130 (New Bag - Provider: Olena Pelayo RN) 0535 (New Bag - Provider: Olena Pelayo RN)1346 (New Bag - Provider: Henry Garrett, JOSH)2115 (New Bag - Provider: Bessie Lezama, JOSH) 0539 (New Bag - Provider: Bessie Lezama, JOSH) sodium chloride 0.9% flush 0.5-20 mL (CANCELED) 0.5-20 mL, intra-catheter, Every 8 hours scheduled, First dose on Sun11/04/22 at 1530, Pre-Op/Floor (GI), Flush volume based on line type and size. 0607 (Given - Provider: Olena Pelayo RN) Continuous Medication Order 11/05/2022 11/06/2022 11/07/2022 sodium chloride 0.9% infusion (CANCELED) 50 mL/hr, intravenous, Continuous, Starting on Sun11/03/22 at 0230 0925 (Rate/Dose Verify - Provider: Ed Stephens MD)0935 (New Bag - Provider: Ed Stephens MD)1359 (New Bag - Provider: Anne Phan RN) 0539 (New Bag - Provider: Bessie Lezama, JOSH)1424 (Stopped - Provider: Henry Garrett RN) PRN Medication Order 11/05/2022 11/06/2022 11/07/2022 acetaminophen (TYLENOL) tablet 650 mg 650 mg, oral, Every 8 hours PRN, fever, Starting on Stefani 11/02/22 at 2332, For Fever > 100. 2 F 0923 (AUG Hold - Provider: Automatic Transfer Provider - Reason: Patient not available)1048 ([facility] Unhold - Provider: Automatic Transfer Provider)2034 (Not Given - Provider: Olena Pelayo RN - Reason: Patient/family refused) Carrier Fluids for Secondary Infusion - 0.9% Sodium Chloride 30 mL, intravenous, As needed, For priming tubing and/or flushing, Starting on Sun11/03/22 at 0033, 0-250ml/hr to flush line after IV infusions when no maintenance IV ordered. Infuse 30mL at the same rate as the secondary infusion. Run as primary IV, not intended for KVO 922 ([facility] Hold - Provider: Automatic Transfer Provider - Reason: Patient not available)1048 ([facility] Unhold - Provider: Automatic Transfer Provider) colestipoL (COLESTID) tablet 1 g (PATIENT HOME SUPPLIED MEDICATION) 1 g, oral, 4 times daily PRN, bile acid sequestrant, Starting on Sun11/03/22 at 1644, PRN diarrhea Schedule other medications 1 hour before or 4 hours after colestipol. Med/Strength/Formulation: colestipol 1g Do not crush, chew, cut, dissolve, open or otherwise manipulate tablet/capsule. 0923 ([facility] Hold - Provider: Automatic Transfer Provider - Reason: Patient not available)1048 ([facility] Unhold - Provider: Automatic Transfer Provider) 2115 (Given - Provider: Bessie Lezama, JOSH) metoclopramide (REGLAN) injection 10 mg 10 mg, intravenous, Every 8 hours PRN, other, Nausea/vomiting, Starting on Sun11/03/22 at 0156 0923 ([facility] Hold - Provider: Automatic Transfer Provider - Reason: Patient not available)1048 ([facility] Unhold - Provider: Automatic Transfer Provider) ondansetron (ZOFRAN) injection 4 mg 4 mg, intravenous, Administer over 2 Minutes, Every 6 hours PRN, nausea, vomiting, Starting on Sun11/03/22 at 0156 0923 ([facility] Hold - Provider: Automatic Transfer Provider - Reason: Patient not available)1048 ([facility] Unhold - Provider: Automatic Transfer Provider) documented in this encounter Orders Medications Ordered That Nilo ht Not Have Been Administered Count Last Ordered Date First Ordered Date sodium chloride 0.9% infusion 1 11/05/2022 Carrier Fluids for Secondary Infusion - 0.9% Sodium Chloride 2 11/04/2022 11/03/2022 sodium chloride 0.9% flush 0.5-20 mL 1 11/2022 cholestyramine-aspartame (QU ESTRAN LIGHT) 4 gram packet 1 packet 1 11/03/2022 metoclopramide (REGLAN) injection 10 mg 1 0 11/03/2022 ondansetron (ZOFRAN) injection 4 mg 1 11/03 Diet Count Last Ordered Date First Orde red Date ADULT DISCHARGE DIET 1 11/07/2022 Nursing Count Last Ordered Date First Orde red Date DISCHARGE ACTIVITY 1 11/07/2022 DISCHARGE CALL PROVIDER 7 11/07/2022 DISCHARGE INSTRUCTIONS 1 11/07/2022 FOLLOW UP WITH ESTABLISHED PROVIDER 2 11/07 Consult Count Last Ordered Date First Orde red Date IP CONSULT TO GASTROENTEROLOGY 1 11/02/2022 Admission Count Last Ordered Date First Orde red Date ADMIT TO INPATIENT 1 11/02/2022 Transfer Count Last Ordered Date First Orde red Date ED TO FLOOR BED REQUEST 1 11/02/2022 Discharge Count Last Ordered Date First Orde red Date DISCHARGE PATIENT 1 11/07/2022 Case Request Count Last Ordered Date First Orde red Date CASE REQUEST GI 1 11/04/2022 documented in this encounter Care Teams Action Installer Relationship Specialty Start Date End Date Lanre Parekh DO PCP - General Family Medicine 01/23/19 Eliana Quevedo MD [address] [place] [address] Referring Physician Gastroenterology 11/07/22 documented as of this encounter
--- OUTSIDE RECORDS SUMMARY | 2024-07-09 05:23 | XMS_ITS | Encounter Summary ---
Author Organization [facility] Address [address] [place] [address] Phone Care Team Providers Care Director Of Occupational Health Name Role Phone Lanre Parekh DO Primary Care Provide r Encounter Details Date Type Department Care Team (Late st Contact Info) Description 08/02/2022 Orders Only [facility] Gastroenterology [address] [place] [address] [place] [address] Rowan Cardenas, JOSH Social History Tobacco Use [...] on file Legal Sex Male 11:11 PM [employer]IC[employer] Gender Identity Not on file Sexual Orientation Not on file documented as of this encounter Plan of Treatment Not on file documented as of this encounter Visit Diagnoses Not on filedocumented in this encounter Care Teams Director Of Occupational Health Relationship Specialty Start Date End Date Lanre Parekh DO PCP - General Family Medicine 01/23/19 documented as of this encounter
--- OUTSIDE RECORDS SUMMARY | 2024-07-09 05:23 | XMS_ITS | Encounter Summary ---
Author Organization [facility] Healthcare Address [address] [place] [address] Care Team Providers Care Tooth Cutter Pinion Name Role Phone Lanre Parekh Primary Care Provide r Reason for Visit * Reason Comments Diarrhea Abdominal Pain * Auth/Cert (Routine) Specialty Diagnoses / Procedures Referred By Contac t Referred To Contact Diagnoses Hypocalcemia Abdominal pain HERMELINDO (acute kidney injury) (HCC) History of Crohn's disease Diarrhea, unspecified type Procedures na Referral ID Status Reason Start Date Expiration Date Visits Re quested Visits Authorized [id number] 1 1 Encounter Details Date Type Department Care Team (Late st Contact Info) Description 11/05/2022 9:00 AM CDT - 11/05/2022 9:20 AM CDT Surgery [facility] GI Lab [address] [place] [address] Luke Jones MD [address] [place] [id number] COLON BIOPSY Surgery Details Date/Time Status Location OR Service Patient Class Case Class Case Type Trauma Case? 11/05/2022 9:00 AM Posted B ENDOSCOPY GI 05 Gastroenterology Inpatient Urgent - 24 hours Panel 1 Procedure LRB Anes Op Region Wound Class Comments COLON BIOPSY N/A Monitor Anesthes ia Care Class II - Clean Contaminated Surgeon Surgeon Role Service Panel Luke Jones MD Primary Gastroente rology 1 documented in this encounter Social History Tobacco Use Types Packs/Day Years [...] often do you attend chur ch or sikhism services? 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 Gender Identity Not on file Sexual Orientation Not on file documented as of this encounter Last Filed Vital Signs Vital Sign Reading Time Taken Comments Blood Pressure 138/84 11/05/2022 8:09 AM CDT Pulse 67 11/05/2022 8:09 AM CDT Temperature 36.4 ??C (97.6 ??F) 11/05/2022 8:09 AM CD T Respiratory Rate 16 11/05/2022 8:09 AM CDT Oxygen Saturation 97% 11/05/2022 8:09 AM CDT Inhaled Oxygen Concentration - - [...] Patient Age - 32 yrs Patient - [id number] [facility] - [id number] Document Creation Date: 11/07/2022 Admitting Provider, : Beatrice Jones MD Discharge Provider, : Evaristo Ashraf MD Primary Care Physician at Discharge: Lanre Parekh DO [phone] Admission Date: 11/02/2022 Discharge Date/time: 11/07/2022 Admission Location: [facility] LOS - LOS: 5 days DETAILS OF HOSPITAL STAY Hospital Problems/Diagnoses Principal Problem: Abdominal pain Active Problems: Crohn's disease of both small and large intestine (HCC) Diarrhea due to malabsorption Enteritis Acute kidney injury (CMS/HCC) (HCC) Hyponatremia Corticosteroid-induced neutrophilia Reason for Hospitalization: Abdominal Pain Hospital Course: Patient with history of Crohn's disease complicated by Ileocolonic stricture status post ileocecectomy in 2018 presenting to [facility] with complaints of abdominal pain and non-bloody [...] 06/04/2023 2:00 PM Fernando Mckeon MD BONE [facility] 5C [facility] Please schedule an appointment with the following [...] Lyubov Hudson M.D. AT T: Report ID: [id number] Reading Location: [id number] Recent Labs: Recent Labs Lab Units 11/07/2242411/06/2283711/05/22 0622 WBC K/cumm 6.7 5.2 5.4 HEMOGLOBIN g/dL 13.4 13.8 12.3* HEMATOCRIT % 38.8* 40.5 36.3* PLATELETS K/cumm 232 220 190 Recent Labs Lab Units 11/07/2242411/06/2283711/05/22 0622 WBC K/cumm 6.7 5.2 5.4 HEMOGLOBIN g/dL 13.4 13.8 12.3* HEMATOCRIT % 38.8* 40.5 36.3* PLATELETS K/cumm 232 220 190 NEUTROS PCT % 41.9 50.1 54.5 LYMPHS PCT % 50.1 42.3 31.8 MONOS PCT % 6.0 6.0 12.0 EOS PCT % 1.3 0.8 1.1 Recent Labs Lab Units 11/07/2242411/06/2283711/05/2262111/03/22 0406 11/02/22 1718 SODIUM mmol/L 139 139 138 < > 133* POTASSIUM PLASMA mmol/L 3.6 3.6 3.7 < > 4.6 CHLORIDE mmol/L 103 104 106 < > 101 CO2 mmol/L 25 24 19* < > 19* BUN SERUM mg/dL 10 8 10 < > 20 CREATININE mg/dL 0.90 0.80 0.70* < > 1.40* [id number] mL/min/1.73 m2 116 120 125 < > 68 GLUCOSE mg/dL 98 90 88 < > 117 CALCIUM mg/dL 9.0 8.9 8.3* < > 8.0* ALBUMIN g/dL -- -- -- -- 4.2 PHOSPHORUS PLASMA mg/dL -- -- -- -- 2.3 < > = values in this interval not displayed. Recent Labs Lab Units 11/07/22 0425 11/06/22 0838 11/05/22 0622 11/03/22 0406 11/02/22 1718 SODIUM mmol/L 139 139 138 < [...] AST Units/L 31 Recent Labs Lab Units 11/02/22 1718 MAGNESIUM mg/dL 1.5 Lab Results Component Value [...] Emergency Contact: Primary Emergency Contact: Dorinda Escalera, Immunization Status at Discharge Immunization History Administered Date(s) Administered DTaP 05/10/1990 Influenza, Quadrivalent, Cell Culture-based MDCK, Preservative Free, Antibiotic Free, Umftcwemrmwza19/07/2021, 04/20/2022 Pneumococcal Conjugate PCV 13 01/25/2017 Pneumococcal Polysaccharide PPV23 05/17/2017, 10/26/2022 Tdap 02/09/2014 Evaristo Ashraf MD documented in this encounter Discharge Instructions * Attachments The following attachments cannot be sent through Care Everywhere. * Acute Abdominal Pain (Discharge Care) (Jordanian) * Nutrition Tips for Relief of Diarrhea (Discharge Care) (Jordanian) documented in this encounter Medications at Time [...] times daily. 270 capsule 11 11/07/2022 3 colestipoL (COLESTID) 1 gram tabletIndications [...] MP, allopurinol. He follows with GI at [facility]. he presented to the emergency department [...] concerns. Luke Jones MD Voice recognition software [employer] Direct was used dictate and transcribe this document. Structural Metal Fabricator Apprentice variances may occur. Despite proofreading, typographical errors [...] Max: 100 % Most Recent : Vitals: 11/06/22 0806 BP: 129/83 Pulse: 61 Resp: 16 [...] 11/02/2022 7:56 PM - Electronically signed by Anderaeb Hudson M.D. AT T: Report ID: [id number] Reading Location: [id number] Current Facility-Administered Medications Medication Dose Route Frequency [...] Daily Noreen Moura MD 100 mg at 11/05/22 0903 Carrier Fluids for Secondary Infusion - 0.9% Sodium Chloride 30 mL intravenous PRN Beatrice Jones MD colestipoL (COLESTID) tablet 1 g (PATIENT HOME SUPPLIED MEDICATION) 1 g oral QID PRN Luke Jones MD 1 g at 11/03/222037 enoxaparin (LOVENOX) syringe 40 mg 40 mg subcutaneous Daily-2100 Beatrice Jones MD 40 mg at 11/05/222034 [...] SHIVANI Beatrice Jones MD 28.8 mL/hr at 11/06/22 0535 3.375 g at 11/06/2235 sodium chloride 0.9% infusion 50 mL/hr intravenous [...] Continue IV antibiotic for enteritis Moderate complexity: [facility] Voice recognition software [employer] Fluency Direct was used dictate and transcribe this document. Structural Metal Fabricator Apprentice variances may occur. Despite proofreading, typographical errors may occur. For patients or family members viewing this note through Chatteroust: This note was written as a communication [...] Max: 99 % Most Recent : Vitals: 11/05/22926 BP: 143/84 Pulse: Resp: Temp: SpO2: I/O [...] Lyubov Hudson M.D. AT T: Report ID: [id number] Reading Location: [id number] Current Facility-Administered Medications Medication Dose Route Frequency [...] Daily Noreen Moura MD 100 mg at 11/05/22 0903 [AUG Hold] Carrier Fluids for Secondary Infusion [...] (LOVENOX) syringe 40 mg 40 mg subcutaneous Daily-[facility] Beatrice Jones MD 40mg at 11/04/222034 [AUG [...] Beatrice Nieves MD 28.8 mL/hr at 11/05/22 0607 3.375 g at 11/05/22 0607 sodium chloride 0.9% flush 0.5-20 mL 0.5-20 mL intra-catheter Q8H Luke Nieves MD 10 mL at 11/05/22 0607 sodium chloride 0.9% flush 0.5-20 mL 0.5-20 mL intra-catheter PRN Luke Jones MD sodium chloride 0.9% infusion 50 mL/hr [...] Continue IV antibiotic for enteritis Moderate complexity: [employer] Voice recognition software [employer] Direct was used dictate and transcribe this document. Structural Metal Fabricator Apprentice variances may occur. Despite proofreading, typographical errors may occur. For patients or family members viewing this note through [email or web address]: This note was written as a communication [...] actually had solid stool this morning. As the endoscopic appearance of the neoterminal ileum and colon appeared normal and improving diarrhea, we will hold off on steroids at this time. [...] MP, allopurinol. He follows with GI at [facility]. he presented to the emergency department [...] symptoms Luke Jones MD Voice recognition software [employer]ap[employer] Fluency Direct was used dictate and transcribe this document. Structural Metal Fabricator Apprentice variances may occur. Despite proofreading, typographical errors [...] Lyubov Hudson M.D. AT T: Report ID: [id number] Reading Location: [id number] Current Facility-Administered Medications Medication Dose Route Frequency [...] Daily-2099 Beatrice Jones MD 40 mg at 11/03/222037 [...] Continue IV antibiotic for enteritis Moderate complexity: [facility] Voice recognition software [employer]ap[employer]aine [employer] Fluency Direct was used dictate and transcribe this document. Structural Metal Fabricator Apprentice variances may occur. Despite proofreading, typographical errors may occur. For patients or family members viewing this note through [employer]: This note was written as a communication [...] 1101 Patient Spiritual Assessment Spirituality Assessed Yes Spiritism Affiliation Judaism Active in Jew Yes [facility] of [facility] Spiritual Needs Prayer Clinical Encounter Type Visited [...] Lyubov Hudson M.D. AT T: Report ID: [id number] Reading Location: [id number] Current Facility-Administered Medications Medication Dose Route Frequency Provider Last Rate Last Admin acetaminophen (TYLENOL) tablet 650 mg 650 mg oral Q8H PRN Beatrice Jones MD 650 mg at 11/02/22 5853 Carrier Fluids for Secondary Infusion - 0.9% [...] pending Continue current IV antibiotics. Moderate complexity: [employer] Voice recognition software [employer]aine [employer] Fluency Direct was used dictate and transcribe this document. Structural Metal Fabricator Apprentice variances may occur. Despite proofreading, typographical errors may occur. For patients or family members viewing this note through Chatteroust: This note was written as a communication [...] >16 min ( 21 minutes ) - [id number] PCP: Lanre Parekh DO Subjective abdominal pain [...] - 11/05/2022 9:24 AM CDTAssociated Order(s): COLONOSCOPY [facility] GI ENDOSCOPY Patient Name: Nic Escalera Procedure Date: 11/05/2022 9:24 AM Date of : 1990 Admit Type: Inpatient Age: 32 Gender: Male Attending MD: Luke Jones MD Room: [facility] ENDOSCOPY ROOM 05 Note Status: Finalized Procedure: [...] bowel preparation was evaluated using the BBPS ([place] Bowel Preparation Scale) with scores of: Right [...] On: 11/05/2022 9:24 AM Recognized by the [place] [employer]intestinal [employer] for promoting quality [...] days. Follows up with Dr. Quevedo at [facility]. contrast CT showed mucosal hyperemia of [...] with biopsies for CMV. Romana Brush, MSN, SPIKE MACHINE FEEDER, GENERAL ASSEMBLER-BC Family Nurse Practitioner [facility] Voice recognition software [employer] Fluency Direct was used dictate and transcribe this document. Structural Metal Fabricator Apprentice variances may occur. Despite proofreading, typographical errors [...] Crohn's flare. Follows with Dr. Quevedo at [facility]. He also admits to dark urine [...] tendency for uric acid stone formation. Source: [place] [employer].Last revised 07-12-2017 CBC WITH AUTO DIFFERENTIAL - [...] Lyubov Hudson M.D. AT T: Report ID: [id number] Reading Location: [id number] ED COURSE/MEDICAL DECISION MAKING Differential diagnosis included but not limited to Crohn's flare, colonic fistula, abdominal abscess, gastroenteritis, umbilical hernia, other Patient's medical records were reviewed. I discussed management or test interpretation with the following outside physician, caregiver, usp staff: Dr. Robert MORA ED Course as of 11/02/222215 Time: 11/02 [...] Time: 11/02 2213 Comment: Spoke with Dr. Jones hospitalkorina. Accepts patient for admission at this time. Will order blood cultures, start Zosyn. Accepts patient for admission to the hospital. By: Nelia Quezada PA Time: 11/02 2214 Comment: Of note per telephone encounter with patient's GI doctor Dr. Quevedo today of [facility] recommend getting C diff culture and O and P. By: Nelia Quezada PA Procedures FINAL IMPRESSION Abdominal pain Diarrhea, unspecified type History of Crohn's disease Hypocalcemia HERMELINDO (acute kidney injury) ([facility]/HCC) ([facility]) DISPOSITION: Admit This examination was transcribed using the [employer] voice recognition system without human farm management supervisor. In an effort to expedite patient care, this report has not been adjusted for typographical, grammatical, and syntax by a trained medical claims examiner. Nelia Quezada PA 11/02/222215 Cosigned by Franck [...] he follows up with Dr. Quevedo at [facility]. Patient has not taken his Purinethol [...] No Has discharge transport been arranged?: Yes (11/02/22 2201) Health Insurance Coverage: [facility] Prescription Coverage: [facility] Pharmacy: [id number] - [place], [place] - [address] AT [facility] [address] [facility] [phone] [facility] [address] [address] [facility] [place] [address] [facility] [address] [facility] [address] [facility]acy #[id number] - [place], [place] - [address] [facility] [address] [facility] [address] Primary Care Provider: Lanre Parekh DO Prior to Admission: Primary Caregiver: Self Who does the patient or legal guardian want to receive education instruction and discharge plans for after care assistance?: Name Caregiver Name: Quinton Escalera Relationship to patient: Caregiver Contact Information: [phone] Caregiver [address]: [address] [place] [address] Support System: Spouse/Significant Other, Children Home Care Services: No Durable Medical Equipment: None Living Arrangements: Spouse/significant other, Children Type of Residence: Private residence Steps in home? : Yes, Inside home, Yes, Outside of home Number of steps inside:: 20 steps Number of steps outside:: 20 steps (11/02/22 2300) SDOH: Transportation: In the past 12 months, [...] a week How often do you attend restoration or sikhism services?: 1 to 4 times per year Do you belong to any clubs or organizations such as restoration groups, unions, fraternal or athletic groups, or school groups?: No How often do you attend meetings of the clubs or organizations you belong to?: Never Are you , , , , never , or living with a partner?: (11/03/221516) Food Insecurity: Within the past 12 months, you worried that your food would run out before you got the money to buymore.: Never true Within the past 12 months, the food you bought just didn't last and you didn't have money to get more.: Never true (11/03/221516) Patient expects to be Discharged to: Private [...] AM CDT CRP (ACUTE PHASE) Routine 11/03/2022 4: 06 AM CDT BASIC METABOLIC PANEL Routine 11/03/2022 [...] Results * eGFR (11/07/2022 4:25 AM CDT) [facility] eGFR 116 mL/min/1. 73 m2 [facility] Comment: Interpretive Data [...] LAB BLOOD ORDERABLES Final Re sult [facility] [address] [facility] Department [place] [address] * (ABNORMAL) Differential, auto (11/07/2022 4:25 AM CDT) Pathologist [facility] Neutrophil abs 2.8 1.7 - 6.5 K/cumm [facility] Imm gran abs 0.0 0.0 - 0.1 K/cumm [facility] Lymphocyte abs 3.4(H) 0.8 - 3.3 K/cumm [facility] Monocyte abs 0.4 0.2 - 0.8 K/cumm [facility] Eosinophil abs 0.1 0.0 - 0.5 K/cumm [facility] Basophil abs 0.0 0.0 - 0.1 K/cumm [facility] Neutrophil pct 41.9 % [facility] Comment: Consistent with previous result Interpretive Data Percent cell count reference ranges are not reported, since discordance with absolute values may lead to misinterpretation of CBC data. Current Interpretive Data was last revised on 2017. Imm gran pct 0.3 % [facility] Comment: Interpretive Data Percent cell count reference ranges are not reported, since discordance with absolute values may lead to misinterpretation of CBC data. Current Interpretive Data was last revised on 2017. Lymphocyte pct 50.1 % [facility] Comment: Interpretive Data Percent cell count reference ranges are not reported, since discordance with absolute values may lead to misinterpretation of CBC data. Current Interpretive Data was last revised on 2017. Monocyte pct 6.0 % [facility] Comment: Interpretive Data Percent cell count reference ranges are not reported, since discordance with absolute values may lead to misinterpretation of CBC data. Current Interpretive Data was last revised on 2017. Eosinophil pct 1.3 % [facility] Comment: Interpretive Data Percent cell count reference ranges are not reported, since discordance with absolute values may lead to misinterpretation of CBC data. Current Interpretive Data was last revised on 2017. Basophil pct 0.4 % [facility] Comment: Interpretive Data Percent cell count reference ranges are not reported, since discordance with absolute values may lead to misinterpretation of CBC data. Current Interpretive Data was last revised on 2017. Blood 11/07/2022 4:25 AM CDT 11/07/2022 4:49 AM CDT us Beatrice Jones MD LAB BLOOD ORDERABLES Final Re sult [facility] [address] [facility] Department [place] [address] * Basic metabolic panel (11/07/2022 4:25 AM CDT) Sodium 139 135 - 145 mmol/L [facility] Potassium, pl 3.6 3.3 - 4.9 mmol/L [facility] Chloride 103 97 - 110 mmol/L [facility] CO2 25 22 - 32 mmol/L [facility] Anion gap 11 2 - 15 mmol/L [facility] BUN 10 8 - 25 mg/dL [facility] Creatinine 0.90 0.80 - 1.30 mg/dL [facility] Glucose 98 70 - 199 mg/dL [facility] Comment: Interpretive Data Fasting glucose [...] 2022. Calcium 9.0 8.5 - 10.3 mg/dL [facility] Blood 11/07/2022 4:25 AM CDT 11/07/2022 4:49 AM CDT us Beatrice Jones MD LAB BLOOD ORDERABLES Final Re sult [facility] [address] [facility] Department [place] [address] * (ABNORMAL) CBC with auto differential (11/07/2022 4:25 AM CDT) WBC 6.7 3.8 - 9.9 K/cumm [facility] Hgb 13.4 13.0 - 17.5 g/dL [facility] Hct 38.8(L) 38.9 - 50.3 % [facility] Plt 232 150 - 400 K/cumm [facility] MPV 10.5 9.1 - 12.3 fL [facility] RBC 3.99(L) 4.30 - 5.80 M/cumm [facility] MCV 97.2(H) 81.3 - 96.4 fL [facility] MCH 33.6(H) 27.1 - 33.3 pg [facility] MCHC 34.5 32.3 - 35.7 g/dL [facility] RDW CV 12.9 11.1 - 14.9 % [facility] RDW SD 46.5 35.7 - 48.1 fL [facility] NRBC abs 0.00 0.00 - 0.01 K/cumm [facility] Blood 11/07/2022 4:25 AM CDT 11/07/2022 4:49 AM CDT Beatrice Jones MD LAB BLOOD ORDERABLES Final Re sult Performing Organization Address [facility] Co de Phone Number [address] [employer] [place] [address] * (ABNORMAL) CRP (acute phase) (11/07/2022 4:25 AM CDT) Pathologist [facility] CRP 13.4(H) <=10.0 mg/L [facility] Blood 11/07/2022 4:25 AM CDT 11/07/2022 4:49 AM CDT Noreen Moura MD LAB BLOOD ORDERABLES Final Res ult Performing Organization Address [facility] Co de Phone Number [address] [employer] [place] [address] * (ABNORMAL) Erythrocyte sedimentation rate (11/07/2022 4:25 AM CDT) [facility] Erythrocyte sedimentation rate 39(H) 1 - 15 mm/hr [facility] Blood 11/07/2022 4:25 AM CDT 11/07/2022 4:49 AM CDT Noreen Moura MD LAB BLOOD ORDERABLES Final Res ult Performing Organization Address [facility] Co de Phone Number [address] [place] [place] [address] * eGFR (11/06/2022 8:38 AM CDT) [facility] eGFR 120 mL/min/1. 73 m2 [facility] Comment: Interpretive Data Reference Interval Normal ?>/= [...] LAB BLOOD ORDERABLES Final Re sult [facility] [address] [facility] Department [place] [address] * Differential, auto (11/06/2022 8:38 AM CDT) Pathologist [facility] Neutrophil abs 2.6 1.7 - 6.5 K/cumm [facility] Imm gran abs 0.0 0.0 - 0.1 K/cumm [facility] Lymphocyte abs 2.2 0.8 - 3.3 K/cumm [facility] Monocyte abs 0.3 0.2 - 0.8 K/cumm [facility] Eosinophil abs 0.0 0.0 - 0.5 K/cumm [facility] Basophil abs 0.0 0.0 - 0.1 K/cumm [facility] Neutrophil pct 50.1 % [facility] Comment: Interpretive Data Percent cell count reference ranges are not reported, since discordance with absolute values may lead to misinterpretation of CBC data. Current Interpretive Data was last revised on 2017. Imm gran pct 0.4 % [facility] Comment: Interpretive Data Percent cell count reference ranges are not reported, since discordance with absolute values may lead to misinterpretation of CBC data. Current Interpretive Data was last revised on 2017. Lymphocyte pct 42.3 % [facility] Comment: Interpretive Data Percent cell count reference ranges are not reported, since discordance with absolute values may lead to misinterpretation of CBC data. Current Interpretive Data was last revised on 2017. Monocyte pct 6.0 % [facility] Comment: Interpretive Data Percent cell count reference ranges are not reported, since discordance with absolute values may lead to misinterpretation of CBC data. Current Interpretive Data was last revised on 2017. Eosinophil pct 0.8 % [facility] Comment: Interpretive Data Percent cell count reference ranges are not reported, since discordance with absolute values may lead to misinterpretation of CBC data. Current Interpretive Data was last revised on 2017. Basophil pct 0.4 % [facility] Comment: Interpretive Data Percent cell count reference ranges are not reported, since discordance with absolute values may lead to misinterpretation of CBC data. Current Interpretive Data was last revised on 2017. Blood 11/06/2022 8:38 AM CDT 11/06/2022 8:53 AM CDT us Beatrice Jones MD LAB BLOOD ORDERABLES Final Re sult [facility] [address] [facility] Department [place] [address] * Basic metabolic panel (11/06/2022 8:38 AM CDT) Sodium 139 135 - 145 mmol/L [facility] Potassium, pl 3.6 3.3 - 4.9 mmol/L [facility] Chloride 104 97 - 110 mmol/L [facility] CO2 24 22 - 32 mmol/L [facility] Anion gap 11 2 - 15 mmol/L [facility] CENTER BUN 8 8 - 25 mg/dL [facility] Creatinine 0.80 0.80 - 1.30 mg/dL [facility] Glucose 90 70 - 199 mg/dL [facility] Comment: Interpretive Data Fasting glucose [...] 2022. Calcium 8.9 8.5 - 10.3 mg/dL [facility] Blood 11/06/2022 8:38 AM CDT 11/06/2022 8:53 AM CDT us Beatrice Jones MD LAB BLOOD ORDERABLES Final Re sult [facility] [address] [facility] Department [place] [address] * (ABNORMAL) CBC with auto differential (11/06/2022 8:38 AM CDT) WBC 5.2 3.8 - 9.9 K/cumm [facility] Hgb 13.8 13.0 - 17.5 g/dL [facility] Hct 40.5 38.9 - 50.3 % [facility] Plt 220 150 - 400 K/cumm [facility] MPV 10.4 9.1 - 12.3 fL [facility] RBC 4.06(L) 4.30 - 5.80 M/cumm [facility] MCV 99.8(H) 81.3 - 96.4 fL [facility] MCH 34.0(H) 27.1 - 33.3 pg [facility] MCHC 34.1 32.3 - 35.7 g/dL [facility] RDW CV 13.2 11.1 - 14.9 % [facility] RDW SD 48.7(H) 35.7 - 48.1 fL [facility] NRBC abs 0.00 0.00 - 0.01 K/cumm [facility] Blood 11/06/2022 8:38 AM CDT 11/06/2022 8:53 AM CDT us Beatrice Jones MD LAB BLOOD ORDERABLES Final Re sult [facility] [address] Department [place] [address] * Surgical pathology (11/05/2022 9:44 AM CDT) Tissue (Colon, Biopsy) 11/05/2022 9:44 AM CDT Tissue (Colon, Biopsy) 11/05/2022 9:45 AM CDT Tissue (Colon, Biopsy) 11/05/2022 9:46 AM CDT Tissue (Colon, Biopsy) 11/05/2022 9:47 AM CDT Tissue (Colon, Biopsy) 11/05/2022 9:47 AM CDT Tissue (Colon, Biopsy) 11/05/2022 9:48 AM CDT Narrative PATHOLOGY [facility] - 11/07/2022 12:52 PM CDT [facility] Department of Pathology [address] [place] [id number] ?? Note to Patients: ??This report may [...] details. Final Report Patient Name: NIC ESCALERA Yared : ??1990 (Age: 32) Gender: ??M Address: ??[address] [place] [address] [address] [place] [place], [place] [address] [facility] #: [id number] Service: Medical Location: Patient Type: [facility] INPATIENT ? Taken: 11/05/2022 Received: 11/06/2022 Accessioned: [...] submitted. ?? Labeled F1. Jar 0. ?? [facility]/11/06/2022 13:07 CECY Ryan Microscopic slide review and interpretation for this case was performed at [facility], Department of Surgical Pathology, [address] [facility] [place], [place] [id number], ??[facility], [place] ??[address] ?? CLIA # [id number] Luke Jones MD LAB PATHOLOGY ORDER YOSELYN Final Result PATHOLOGY [facility] * COLONOSCOPY (11/05/2022 9:24 AM CDT) Anatomical Region Laterality Modality Other Narrative Procedure Note Luke Jones MD - 11/05/2022 9:24 AM CDT [facility] GI ENDOSCOPY Patient Name: Nic Escalera Procedure Date: 11/05/2022 9:24 AM Date of : 1990 Admit Type: Inpatient Age: 32 Gender: Male Attending MD: Luke Celestin MD Room: [facility] ENDOSCOPY ROOM 05 Note Status: Finalized Procedure: [...] bowel preparation was evaluated using the BBPS ([place] Bowel Preparation Scale) with scores of:Right Colon [...] On: 11/05/2022 9:24 AM Recognized by the [place] [employer] for promoting quality in endoscopy us Luke Jones MD ENDOSCOPY PROCEDURE S Final Result * eGFR (11/05/2022 6:22 AM CDT) eGFR 125 mL/min/1. 73 m2 [facility] Comment: Interpretive Data Reference Interval Normal ?>/= [...] LAB BLOOD ORDERABLES Final Re sult [facility] [address] [facility] Department [place] [address] * Differential, auto (11/05/2022 6:22 AM CDT) Neutrophil abs 2.9 1.7 - 6.5 K/cumm [facility] Imm gran abs 0.0 0.0 - 0.1 K/cumm [facility] Lymphocyte abs 1.7 0.8 - 3.3 K/cumm [facility] Monocyte abs 0.6 0.2 - 0.8 K/cumm [facility] Eosinophil abs 0.1 0.0 - 0.5 K/cumm [facility] Basophil abs 0.0 0.0 - 0.1 K/cumm [facility] Neutrophil pct 54.5 % [facility] Comment: Interpretive Data Percent cell count reference ranges are not reported, since discordance with absolute values may lead to misinterpretation of CBC data. Current Interpretive Data was last revised on 2017. Imm gran pct 0.2 % [facility] Comment: Interpretive Data Percent cell count reference ranges are not reported, since discordance with absolute values may lead to misinterpretation of CBC data. Current Interpretive Data was last revised on 2017. Lymphocyte pct 31.8 % [facility] Comment: Interpretive Data Percent cell count reference ranges are not reported, since discordance with absolute values may lead to misinterpretation of CBC data. Current Interpretive Data was last revised on 2017. Monocyte pct 12.0 % [facility] Comment: Interpretive Data Percent cell count reference ranges are not reported, since discordance with absolute values may lead to misinterpretation of CBC data. Current Interpretive Data was last revised on 2017. Eosinophil pct 1.1 % [facility] Comment: Interpretive Data Percent cell count reference ranges are not reported, since discordance with absolute values may lead to misinterpretation of CBC data. Current Interpretive Data was last revised on 2017. Basophil pct 0.4 % [facility] Comment: Interpretive Data Percent cell count reference ranges are not reported, since discordance with absolute values may lead to misinterpretation of CBC data. Current Interpretive Data was last revised on 2017. Blood 11/05/2022 6:22 AM CDT 11/05/2022 7:08 AM CDT Beatrice Jones MD LAB BLOOD ORDERABLES Final Re sult Performing Organization Address City/[facility]/ZIP Co de Phone Number [facility] [address] [address] * (ABNORMAL) Basic metabolic panel (11/05/2022 6:22 AM CDT) Pathologist [facility] Sodium 138 135 - 145 mmol/L [facility] Potassium, pl 3.7 3.3 - 4.9 mmol/L [facility] Chloride 106 97 - 110 mmol/L [facility] CO2 19(L) 22 - 32 mmol/L [facility] Anion gap 13 2 - 15 mmol/L [facility] BUN 10 8 - 25 mg/dL [facility] Creatinine 0.70(L) 0.80 - 1.30 mg/dL [facility] Glucose 88 70 - 199 mg/dL [facility] Comment: Interpretive Data Fasting glucose [...] 2022. Calcium 8.3(L) 8.5 - 10.3 mg/dL [facility] Blood 11/05/2022 6:22 AM CDT 11/05/2022 7:08 AM CDT Beatrice Jones MD LAB BLOOD ORDERABLES Final Re sult Performing Organization Address City/[facility]/ZIP Co de Phone Number [place] [address] [facility] [place] [address] * (ABNORMAL) CBC with auto differential (11/05/2022 6:22 AM CDT) [facility] WBC 5.4 3.8 - 9.9 K/cumm [facility] Hgb 12.3(L) 13.0 - 17.5 g/dL [facility] Hct 36.3(L) 38.9 - 50.3 % [facility] Plt 190 150 - 400 K/cumm [facility] MPV 10.7 9.1 - 12.3 fL [facility] RBC 3.61(L) 4.30 - 5.80 M/cumm [facility] MCV 100.6(H) 81.3 - 96.4 fL [facility] MCH 34.1(H) 27.1 - 33.3 pg [facility] MCHC 33.9 32.3 - 35.7 g/dL [facility] RDW CV 13.5 11.1 - 14.9 % [facility] RDW SD 50.2(H) 35.7 - 48.1 fL [facility] NRBC abs 0.00 0.00 - 0.01 K/cumm [facility] Blood 11/05/2022 6:22 AM CDT 11/05/2022 7:08 AM CDT us Beatrice Jones MD LAB BLOOD ORDERABLES Final Re sult [address] [employer] [place], [place] [id number] * (ABNORMAL) Erythrocyte sedimentation rate (11/04/2022 3:15 PM CDT) Erythrocyte sedimentation rate 32(H) 1 - 15 mm/hr [facility] Blood 11/04/2022 3:15 PM CDT 11/04/2022 3:35 PM CDT Luke Jones MD LAB BLOOD ORDERABLE S Final Result [address] [employer] [place], [place] [id number] * (ABNORMAL) CRP (acute phase) (11/04/2022 3:15 PM CDT) CRP 91.2(H) <=10.0 mg/L [facility] Blood 11/04/2022 3:15 PM CDT 11/04/2022 3:35 PM CDT Luke Jones MD LAB BLOOD ORDERABLE S Final Result Performing Organization Address [facility] de Phone Number [facility] [place] [address] * Rotavirus antigen Stool (11/04/2022 12:30 PM CDT) [facility] Rotavirus Ag Negative Negative [facility] Comment: Interpretative Data Testing performed at the [facility] Microbiology Laboratory using antigen detection with Xpect Rotavirus lateral flow assay. ??This test is cleared by the [place] Food and Drug Administration for fresh stool specimens. ??The performance characteristics have been verified by the [facility] Microbiology Laboratory. ??A negative result does not [...] was last updated 09/17/2019. Testing performed by: [facility], [address] [facility] [place]., [address] Stool 11/04/2022 12:3 0 PM CDT 11/04/2022 4:52 PM CDT us Noreen Moura MD LAB MICROBIOLOGY - GENERAL ORD ERABLES Final Result Performing Organization Address [facility] Co de Phone Number [facility] [address] [facility] [place] [address] * eGFR (11/04/2022 3:15 AM CDT) [facility] eGFR 91 mL/min/1. 73 m2 [facility] Comment: [...] LAB BLOOD ORDERABLES Final Re sult [facility] [address] [facility] Department [place] [address] * (ABNORMAL) Differential, auto (11/04/2022 3:15 AM CDT) Pathologist [facility] Neutrophil abs 8.7(H) 1.7 - 6.5 K/cumm [facility] Imm gran abs 0.1 0.0 - 0.1 K/cumm [facility] Lymphocyte abs 1.4 0.8 - 3.3 K/cumm [facility] Monocyte abs 0.9(H) 0.2 - 0.8 K/cumm [facility] Eosinophil abs 0.0 0.0 - 0.5 K/cumm [facility] Basophil abs 0.0 0.0 - 0.1 K/cumm [facility] Neutrophil pct 78.8 % [facility] Comment: Interpretive Data Percent cell count reference ranges are not reported, since discordance with absolute values may lead to misinterpretation of CBC data. Current Interpretive Data was last revised on 2017. Imm gran pct 0.5 % [facility] Comment: Interpretive Data Percent cell count reference ranges are not reported, since discordance with absolute values may lead to misinterpretation of CBC data. Current Interpretive Data was last revised on 2017. Lymphocyte pct 12.4 % [facility] Comment: Interpretive Data Percent cell count reference ranges are not reported, since discordance with absolute values may lead to misinterpretation of CBC data. Current Interpretive Data was last revised on 2017. Monocyte pct 7.9 % [facility] Comment: Interpretive Data Percent cell count reference ranges are not reported, since discordance with absolute values may lead to misinterpretation of CBC data. Current Interpretive Data was last revised on 2017. Eosinophil pct 0.2 % [facility] Comment: Interpretive Data Percent cell count reference ranges are not reported, since discordance with absolute values may lead to misinterpretation of CBC data. Current Interpretive Data was last revised on 2017. Basophil pct 0.2 % [facility] Comment: Interpretive Data Percent cell count reference ranges are not reported, since discordance with absolute values may lead to misinterpretation of CBC data. Current Interpretive Data was last revised on 2017. Blood 11/04/2022 3:15 AM CDT 11/04/2022 3:58 AM CDT us Beatrice Jones MD LAB BLOOD ORDERABLES Final Re sult [facility] [address] [facility] Department [place] [address] * (ABNORMAL) Basic metabolic panel (11/04/2022 3:15 AM CDT) Sodium 139 135 - 145 mmol/L [facility] Potassium, pl 4.1 3.3 - 4.9 mmol/L [facility] Chloride 109 97 - 110 mmol/L [facility] CO2 20(L) 22 - 32 mmol/L [facility] Anion gap 10 2 - 15 mmol/L [facility] BUN 15 8 - 25 mg/dL [facility] Creatinine 1.10 0.80 - 1.30 mg/dL [facility] Glucose 88 70 - 199 mg/dL [facility] Comment: Interpretive Data Fasting glucose [...] 2022. Calcium 7.9(L) 8.5 - 10.3 mg/dL [facility] Blood 11/04/2022 3:15 AM CDT 11/04/2022 3:57 AM CDT us Beatrice Jones MD LAB BLOOD ORDERABLES Final Re sult [facility] [address] [facility] Department [place] [address] * (ABNORMAL) CBC with auto differential (11/04/2022 3:15 AM CDT) WBC 11.1(H) 3.8 - 9.9 K/cumm [facility] Hgb 12.0(L) 13.0 - 17.5 g/dL [facility] Hct 36.0(L) 38.9 - 50.3 % [facility] Plt 163 150 - 400 K/cumm [facility] MPV 10.6 9.1 - 12.3 fL [facility] RBC 3.51(L) 4.30 - 5.80 M/cumm [facility] MCV 102.6(H) 81.3 - 96.4 fL [facility] MCH 34.2(H) 27.1 - 33.3 pg [facility] MCHC 33.3 32.3 - 35.7 g/dL [facility] RDW CV 13.9 11.1 - 14.9 % [facility] RDW SD 52.7(H) 35.7 - 48.1 fL [facility] NRBC abs 0.00 0.00 - 0.01 K/cumm [facility] Blood 11/04/2022 3:15 AM CDT 11/04/2022 3:58 AM CDT Beatrice Jones MD LAB BLOOD ORDERABLES Final Re sult Performing Organization Address [facility] Co de Phone Number [address] [place] [address] * (ABNORMAL) Calprotectin, fecal (11/03/2022 5:27 PM CDT) Calprotectin, fecal 162(H) <50.0 (Normal) mcg/g [facility] Comment: Interpretation: Abnormal (>120 mcg/g) Test Performed by: [facility] [address] [place] [address] Juvenile Counselor: Christopher Storey M.D. Ph.D.; IA# [id number] Stool 11/03/2022 5:27 PM CDT 11/03/2022 5:38 PM CDT Romana Brush NP LAB BODY FLUIDS AND STOOLS ALICJA VALLEJO Final Result Performing Organization Address [facility] Co de Phone Number [address] [place] [address] * Cryptosporidium and giardia antigen assay Stool (11/03/2022 10:00 AM CDT) Report Final Report: Negative for Giardia lamblia antigen Negative for Cryptosporidium antigen [facility] Comment:Testing performed by : [facility], [address] [facility], [place]., [address] Organism NEGATIVE FOR GIARDIA LAMBLIA ANTIGEN [facility] Organism NEGATIVE FOR CRYPTOSPORIDIUM ANTIGEN [facility] Stool 11/03/2022 10:0 0 AM CDT 11/03/2022 1:47 PM CDT Narrative [facility] - 11/06/2022 8:39 AM CDT Received in [employer] Interpretive data: Testing performed by the [facility] Microbiology Laboratory using an immunoassay that detects Cryptosporidium and Giardia antigens in stool specimens. If comprehensive examination for ova and parasites is required, please request Ova and Parasite Examination . Current interpretative data was revised August 2020. Noreen Moura MD LAB MICROBIOLOGY - GENERAL ORD ERABLES Final Result Performing Organization Address City/[facility]/ZIP Co de Phone Number RUBINA[address] [place] [address] * Ova and parasite examination Stool (11/03/2022 10:00 AM CDT) Report Final Report: No parasites detected. Note: treatment with antibiotics; e.g., Clindamycin, Metronidazole , Tetracycline, and Trimethoprim- sulfa can adversely affect the detection of ova and parasites. Test performed by [facility], [address] [place] [address], [id number]. [facility] Comment:Testing performed by : [facility], [address] [place]., [address] Stool 11/03/2022 10:0 0 AM CDT 11/03/2022 1:46 PM CDT Narrative [facility] - 11/16/2022 3:28 PM CDT Received in [employer] Is the patient immunospressed?->Yes Has the patient had recent travel outside the [place]?->No Nelia SAM LAB MICROBIOLOGY - GENERAL ORDER YOSELYN Final Result [facility] [address] [facility] [place] [address] * C. difficile testing Stool (11/03/2022 10:00 AM CDT) C. diff result Negative, DNA Negative , DNA [facility] Comment:NAP (O27) - presumpt talha negative C. diff interp Negative for toxigenic Clostridioides (Clostridium) difficile. ??Analysis performed by detection of gene(s) encoding C. difficile toxin(s). ??The nucleic acid detection assay used is cleared by the [place] Food and Drug administration and its performance characteristics have been verified by the performing laboratory. [facility] Stool 11/03/2022 10:0 0 AM CDT 11/03/2022 10:13 AM CDT Nelia SAM LAB MICROBIOLOGY - GENERAL ORDER YOSELYN Final Result Performing Organization Address [facility] de Phone Number [address] [place] [address] * (ABNORMAL) CRP (acute phase) (11/03/2022 4:06 AM CDT) CRP 97.0(H) <=10.0 mg/L [facility] Blood 11/03/2022 4:06 AM CDT 11/03/2022 4:32 AM CDT Result [facility] Noreen Moura MD LAB BLOOD ORDERABLES Final Res ult Performing Organization Address [facility] de Phone Number [address] [place] [address] * (ABNORMAL) Erythrocyte sedimentation rate (11/03/2022 4:06 AM CDT) Erythrocyte sedimentation rate 32(H) 1 - 15 mm/hr [facility] Blood 11/03/2022 4:06 AM CDT 11/03/2022 4:32 AM CDT Noreen Moura MD LAB BLOOD ORDERABLES Final Res ult Performing Organization Address [facility] Co de Phone Number [address] [place] [address] * eGFR (11/03/2022 4:06 AM CDT) eGFR [...] LAB BLOOD ORDERABLES Final Re sult [facility] [address] [facility] Department [place] [address] * (ABNORMAL) Differential, auto (11/03/2022 4:06 AM CDT) Neutrophil abs 14.7(H) 1.7 - 6.5 K/cumm [facility] Imm gran abs 0.1 0.0 - 0.1 K/cumm [facility] Lymphocyte abs 0.5(L) 0.8 - 3.3 K/cumm [facility] Monocyte abs 0.7 0.2 - 0.8 K/cumm [facility] Eosinophil abs 0.0 0.0 - 0.5 K/cumm [facility] Basophil abs 0.0 0.0 - 0.1 K/cumm [facility] Neutrophil pct 91.8 % [facility] Comment: Interpretive Data Percent cell count reference ranges are not reported, since discordance with absolute values may lead to misinterpretation of CBC data. Current Interpretive Data was last revised on 2017. Imm gran pct 0.6 % [facility] Comment: Interpretive Data Percent cell count reference ranges are not reported, since discordance with absolute values may lead to misinterpretation of CBC data. Current Interpretive Data was last revised on 2017. Lymphocyte pct 3.0 % [facility] Comment: Interpretive Data Percent cell count reference ranges are not reported, since discordance with absolute values may lead to misinterpretation of CBC data. Current Interpretive Data was last revised on 2017. Monocyte pct 4.4 % [facility] Comment: Interpretive Data Percent cell count reference ranges are not reported, since discordance with absolute values may lead to misinterpretation of CBC data. Current Interpretive Data was last revised on 2017. Eosinophil pct 0.0 % [facility] Comment: Interpretive Data Percent cell count reference ranges are not reported, since discordance with absolute values may lead to misinterpretation of CBC data. Current Interpretive Data was last revised on 2017. Basophil pct 0.2 % [facility] Comment: Interpretive Data Percent cell count reference ranges are not reported, since discordance with absolute values may lead to misinterpretation of CBC data. Current Interpretive Data was last revised on 2017. Blood 11/03/2022 4:06 AM CDT 11/03/2022 4:32 AM CDT Beatrice Jones MD LAB BLOOD ORDERABLES Final Re sult [facility] [address] [facility] Department [place] [address] * (ABNORMAL) Basic metabolic panel (11/03/2022 4:06 AM CDT) Pathologist [facility] Sodium 134(L) 135 - 145 mmol/L [facility] Potassium, pl 4.0 3.3 - 4.9 mmol/L [facility] Chloride 104 97 - 110 mmol/L [facility] CO2 19(L) 22 - 32 mmol/L [facility] Anion gap 11 2 - 15 mmol/L [facility] BUN 16 8 - 25 mg/dL [facility] Creatinine 1.20 0.80 - 1.30 mg/dL [facility] Glucose 149 70 - 199 mg/dL [facility] Comment: Interpretive Data Fasting glucose [...] 2022. Calcium 8.0(L) 8.5 - 10.3 mg/dL [facility] Blood 11/03/2022 4:06 AM CDT 11/03/2022 4:32 AM CDT us Beatrice Jones MD LAB BLOOD ORDERABLES Final Re sult [facility] [address] [facility] Department [place] [address] * (ABNORMAL) CBC with auto differential (11/03/2022 4:06 AM CDT) [facility] WBC 16.0(H) 3.8 - 9.9 K/cumm [facility] Hgb 12.3(L) 13.0 - 17.5 g/dL [facility] Hct 36.3(L) 38.9 - 50.3 % [facility] Plt 167 150 - 400 K/cumm [facility] MPV 10.3 9.1 - 12.3 fL [facility] RBC 3.54(L) 4.30 - 5.80 M/cumm [facility] MCV 102.5(H) 81.3 - 96.4 fL [facility] MCH 34.7(H) 27.1 - 33.3 pg [facility] MCHC 33.9 32.3 - 35.7 g/dL [facility] RDW CV 13.6 11.1 - 14.9 % [facility] RDW SD 51.9(H) 35.7 - 48.1 fL [facility] NRBC abs 0.00 0.00 - 0.01 K/cumm [facility] Blood 11/03/2022 4:06 AM CDT 11/03/2022 4:32 AM CDT Beatrice Jones MD LAB BLOOD ORDERABLES Final Re sult Performing Organization Address [facility] Co de Phone Number [address] [place] [address] * Lactate (11/03/2022 4:06 AM CDT) Lactate 1.4 0.7 - 2.0 mmol/L [facility] Blood 11/03/2022 4:06 AM CDT 11/03/2022 4:30 AM CDT Beatrice Jones MD LAB BLOOD ORDERABLES Final Re sult Performing Organization Address [facility] Co de Phone Number [address] [address] * Stool culture Stool Rectum (11/03/2022 3:30 AM CDT) Direct Specimen Exam Shiga Toxin Testing: Antigen detection assay for Shiga-toxin NEGATIVE for Shiga Toxin 1 and Shiga Toxin 2. CRUZ Comment:Testing performed by : [facility], [address] [place]., [address] Report Final Report: No growth of enteric bacterial pathogens CRUZ Comment:Testing performed by : [facility], [address] [place]., [address] Stool (Rectum) 11/03/2022 3: 30 AM CDT 11/03/2022 6:39 AM CDT Narrative CRUZ ALEGRE - 11/07/2022 2:31 PM CDT Testing performed by [facility] Microbiology Laboratory ([phone]). Routine stool cultures include procedures to detect Salmonella, Shigella, Edwardsiella, Aeromonas, Pleisiomonas, Campylobacter, Yersinia, E. coli O157, and Shiga-like toxins. ?? Vibrio is cultured only upon special request. ??If Vibrio is suspected, please call the laboratory at [phone]. Interpretive data was last updated November 06, 2016. us Nelia SAM LAB MICROBIOLOGY - GENERAL ORDER YOSELYN Final Result CRUZ ALEGRE [address] [facility] Department [place] [address] * Blood culture Blood Forearm, right (11/02/2022 10:25 PM CDT) Report Final Report: No growth CRUZ ALEGRE Comment:Testing performed by : [facility], [address] [place]., [address] Blood (Forearm, right) 11/02/2022 10:25 PM CDT 11/03/2022 3:58 AM CDT Narrative CRUZ ALEGRE - 11/07/2022 7:00 AM CDT From a [...] organism identification may be performed using the Spotwishigene Gram-Positive Blood Culture Assay. This assay detects microbial DNA in positive blood culture broth via hybridization of target DNA to capture oligonucleotides on a microarray. This assay has been cleared by the [place] Food and Drug Administration and its performance characteristics have been verified by the [facility] Microbiology Laboratory. 5. ?For questions about this culture, contact the Microbiology Laboratory at [phone]. Interpretive data was last revised on 2019. us Nelia SAM LAB MICROBIOLOGY - GENERAL ORDER YOSELYN Final Result CRUZ ALEGRE [address] [facility] Department [place] [address] * Blood culture Blood Antecubital, right (11/02/2022 10:24 PM CDT) Report Final Report: No growth CRUZ ALEGRE Comment:Testing performed by : [facility], [address] [facility] [place]., [address] Blood (Antecubital, right) 11/02/2022 10:24 PM CDT [...] organism identification may be performed using the Verigene Gram-Positive Blood Culture Assay. This assay detects microbial DNA in positive blood culture broth via hybridization of target DNA to capture oligonucleotides on a microarray. This assay has been cleared by the [place] Food and Drug Administration and its performance characteristics have been verified by the [facility] Microbiology Laboratory. 5. ?For questions about this culture, contact the Microbiology Laboratory at [phone]. Interpretive data was last revised on 2019. Nelia SAM [facility] MICROBIOLOGY - GENERAL ORDER YOSELYN Final Result Performing Organization Address City/[facility] Co de Phone Number CRUZ [facility] [place] [address] * Urine culture Urine (11/02/2022 9:12 PM CDT) Report Final Report: Less than 100,000 colonies/mL (clinically insignificant growth based on current clinical standards) CRUZ Comment:Testing performed by : [facility], [address] [place]., [address] Organism (CLINICALLY INSIGNIFICANT GROWTH CRUZ Urine 11/02/2022 9:12 PM CDT 11/03/2022 1:06 AM CDT Narrative CRUZ - 11/04/2022 8:41 AM CDT Urine culture reflexed based upon urinalysis results. Testing performed by [facility] Microbiology Laboratory ([phone]) Neliasukhjinder SAM LAB MICROBIOLOGY - GENERAL ORDER YOSELYN Final Result Performing Organization Address City/[facility]/ZIP Co de Phone Number CRUZ [address] [place] [employer] [place] [address] * (ABNORMAL) Urinalysis, microscopic only (11/02/2022 9:12 PM CDT) WBC, ur >50(A) 0 - 5 /HPF [facility] RBC, ur 6-10(A) 0 - 2 /HPF [facility] Epithelial cells, squamous, ur 1-5 0 - 5 /HPF [facility] Bacteria, ur Trace(A) [facility] Mucous, ur Present(A) [facility] Culture Reflex Comment Reflex to urine culture will be performed. [facility] Urine 11/02/2022 9:12 PM CDT 11/02/2022 9:17 PM CDT us Nelia SAM LAB URINE ORDERABLES Final Resul t [facility] [address] [facility] Department [place] [address] * (ABNORMAL) Urinalysis reflex to microscopic and culture Urine (11/02/2022 9:12 PM CDT) Color, ur Reyna Yellow [facility] Clarity, ur Clear Clear [facility] Specific gravity, ur 1.035(H) 1.003 - 1.030 [facility] pH, urine 5.0 [facility] Protein, ur ql 2+(A) Negative [facility] Glucose, ur ql Negative Negative [facility] Ketones, ur Trace Negative [facility] Bilirubin, ur Negative Negative [facility] Blood, ur Negative Negative [facility] Urobilinogen, ur <2.0 <2.0 mg/dL [facility] Nitrite, ur Negative Negative [facility] Leukocyte esterase, ur Negative Negative [facility] UA reflex comment Reflex to microscopic UA will be performed. [facility] Urine 11/02/2022 9:12 PM CDT 11/02/2022 9:17 PM CDT Narrative [facility] - 11/02/2022 9:24 PM CDT ?? Urine pH is affected by diet, medications, systemic acid-base disturbances, and renal tubular function. ??pH may affect urinary stone formation. ??For example, urine pH below 6.0 may help reduce the tendency for calcium phosphate stones and pH greater than 6.0 may reduce the tendency for uric acid stone formation. Source: [employer]. Last revised 07-12-2017 us Nelia SAM LAB MICROBIOLOGY - GENERAL ORDER YOSELYN Final Result CRUZ [address] [facility] Department [place] [address] * CT Abdomen Pelvis W Contrast (11/02/2022 [...] D: ??11/02/2022 7:56 PM T: Report ID: [id number] Reading Location: ??[id number] Procedure Note Lyubov Hudson MD - 11/02/2022 [...] Lyubov Hudson M.D. AT T: Report ID: [id number] Reading Location: [place] [address] PROCEDURES Final Result * Magnesium (11/02/2022 5:18 PM CDT) Magnesium 1.5 1.4 - 2.5 mg/dL CRU[facility] ALEGRE Blood 11/02/2022 5:18 PM CDT 11/02/2022 5:21 PM CDT Nelia SAM LAB BLOOD ORDERABLES Final Resul t CRUZ ALEGRE [address] [facility] Department [place] [address] * Phosphorus (11/02/2022 5:18 PM CDT) Phosphorus, pl 2.3 2.3 - 4.5 mg/dL CRUZ Blood 11/02/2022 5:18 PM CDT 11/02/2022 5:21 PM CDT us Nelia SAM LAB BLOOD ORDERABLES Final Resul t CRUZ [address] [facility] Department [place] [address] * eGFR (11/02/2022 5:18 PM CDT) eGFR 68 mL/min/1. 73 m2 CRUZ Comment: Interpretive Data [...] 5:18 PM CDT 11/02/2022 5:21 PM CDT [facility] LAB BLOOD ORDERABLES Final Resul t Performing Organization Address City/[facility]/ZIP Co de Phone Number [facility] [address] [place] [address] * Lipase (11/02/2022 5:18 PM CDT) Pathologist [facility] Lipase 21 10 - 99 Units/L [facility] Blood 11/02/2022 5:18 PM CDT 11/02/2022 5:21 PM CDT [facility] BLOOD ORDERABLES Final Resul t Performing Organization Address [facility] de Phone Number [place] [address] [place] [address] * (ABNORMAL) Comprehensive metabolic panel (11/02/2022 5:18 PM CDT) [facility] Sodium 133(L) 135 - 145 mmol/L [facility] Potassium, pl 4.6 3.3 - 4.9 mmol/L [facility] Chloride 101 97 - 110 mmol/L [facility] CO2 19(L) 22 - 32 mmol/L [facility] Anion gap 13 2 - 15 mmol/L [facility] BUN 20 8 - 25 mg/dL [facility] Creatinine 1.40(H) 0.80 - 1.30 mg/dL [facility] Glucose 117 70 - 199 mg/dL [facility] Comment: Interpretive Data Fasting glucose [...] 2022. Calcium 8.0(L) 8.5 - 10.3 mg/dL [facility] Bilirubin, total 0.5 0.1 - 1.2 mg/dL [facility] Protein, pl 7.5 6.5 - 8.5 g/dL [facility] Albumin 4.2 3.5 - 5.0 g/dL [facility] Alk phos 74 40 - 130 Units/L [facility] ALT 27 7 - 55 Units/L [facility] AST 31 10 - 50 Units/L [facility] Comment:MODERATE HEMOLYZED: Hemolysis interferes with the above test. Blood 11/02/2022 5:18 PM CDT 11/02/2022 5:21 PM CDT us Nelia SAM LAB BLOOD ORDERABLES Final Resul t [place] [address] [facility] Department [place] [address] * (ABNORMAL) Differential, auto (11/02/2022 4:49 PM CDT) Neutrophil abs 9.2(H) 1.7 - 6.5 K/cumm [facility] Imm gran abs 0.0 0.0 - 0.1 K/cumm [facility] Lymphocyte abs 0.6(L) 0.8 - 3.3 K/cumm [facility] Monocyte abs 0.8 0.2 - 0.8 K/cumm [facility] Eosinophil abs 0.2 0.0 - 0.5 K/cumm [facility] Basophil abs 0.0 0.0 - 0.1 K/cumm [facility] Neutrophil pct 84.7 % [facility] Comment: Interpretive Data Percent cell count reference ranges are not reported, since discordance with absolute values may lead to misinterpretation of CBC data. Current Interpretive Data was last revised on 2017. Imm gran pct 0.3 % [facility] Comment: Interpretive Data Percent cell count reference ranges are not reported, since discordance with absolute values may lead to misinterpretation of CBC data. Current Interpretive Data was last revised on 2017. Lymphocyte pct 5.8 % [facility] Comment: Interpretive Data Percent cell count reference ranges are not reported, since discordance with absolute values may lead to misinterpretation of CBC data. Current Interpretive Data was last revised on 2017. Monocyte pct 7.1 % [facility] Comment: Interpretive Data Percent cell count reference ranges are not reported, since discordance with absolute values may lead to misinterpretation of CBC data. Current Interpretive Data was last revised on 2017. Eosinophil pct 1.7 % [facility] Comment: Interpretive Data Percent cell count reference ranges are not reported, since discordance with absolute values may lead to misinterpretation of CBC data. Current Interpretive Data was last revised on 2017. Basophil pct 0.4 % [facility] Comment: Interpretive Data Percent cell count reference ranges are not reported, since discordance with absolute values may lead to misinterpretation of CBC data. Current Interpretive Data was last revised on 2017. Blood 11/02/2022 4:49 PM CDT 11/02/2022 4:54 PM CDT [facility] Quezada DC LAB BLOOD ORDERABLES Final Resul t Performing Organization Address [facility] Co de Phone Number [address] [place] [address] * Sepsis Lactate w/ Reflex (11/02/2022 4:49 PM CDT) [facility] Sepsis Lactate 1.5 0.7 - 2.0 mmol/L [facility] Blood 11/02/2022 4:49 PM CDT 11/02/2022 4:53 PM CDT [facility] LAB BLOOD ORDERABLES Final Resul t Performing Organization Address City/[facility] Co de Phone Number [address] [place] [address] * (ABNORMAL) CBC with auto differential (11/02/2022 4:49 PM CDT) [facility] WBC 10.8(H) 3.8 - 9.9 K/cumm [facility] Hgb 14.7 13.0 - 17.5 g/dL [facility] Hct 42.7 38.9 - 50.3 % [facility] Plt 199 150 - 400 K/cumm [facility] MPV 10.1 9.1 - 12.3 fL [facility] RBC 4.22(L) 4.30 - 5.80 M/cumm [facility] MCV 101.2(H) 81.3 - 96.4 fL [facility] MCH 34.8(H) 27.1 - 33.3 pg [facility] MCHC 34.4 32.3 - 35.7 g/dL [facility] RDW CV 13.7 11.1 - 14.9 % [facility] RDW SD 50.8(H) 35.7 - 48.1 fL [facility] NRBC abs 0.00 0.00 - 0.01 K/cumm [facility] Blood 11/02/2022 4:49 PM CDT 11/02/2022 4:54 PM CDT us Nelia SAM LAB BLOOD ORDERABLES Final Resul t Performing Organization Address City/State/[facility] Co de Phone Number [place] [address] [facility] Department [place] [address] documented in this encounter Visit Diagnoses Diagnosis Abdominal pain- Primary Abdominal pain, unspecified site Abdominal pain Abdominal pain, unspecified site Diarrhea, unspecified type History of Crohn's disease Hypocalcemia HERMELINDO (acute kidney injury) (HCC) Crohn's disease of both small and large intestine with intestinal obstruction (HCC) Enteritis Other and unspecified noninfectious gastroenteritis and colitis Acute cystitis Acute kidney injury (HCC) Diarrhea due to malabsorption Diarrhea, unspecified type documented in this encounter Admitting Diagnoses Diagnosis [...] subcutaneous, Every 7 days, First dose on 5/6/23 at 1400, Refrigerate Given 11/04/2022 1:44 PM CDT 40 mg Other (Comment) allopurinoL (ZYLOPRIM) tablet 100 mg 100 mg, oral, Daily, First dose on Sun11/04/22 at 1030 Given 11/07/2022 8:58 AM CDT 100 mg Given 11/06/2022 9:23 AM CDT 100 mg Given 11/05/2022 9:03 AM CDT 100 mg Carrier Fluids for Secondary Infusion - 0.9% [...] 1 mg, oral, Daily, First dose on Sun11/04/22 at 1030 Given 11/07/2022 8:58 AM CDT 1 mg Given 11/06/2022 9:23 AM CDT 1 mg Given 11/05/2022 9:03 AM CDT 1 mg mercaptopurine (PURINETHOL) tablet 50 mg 50 mg, oral, Daily, First dose on 11/04/22 at 1400, Indications: Crohn's DiseaseIndications:Crohn's Disease Given 11/07/2022 8:58 AM CDT 50 mg Given 11/06/2022 9:23 AM CDT 50 mg Given 11/05/2022 9:03 AM CDT 50 mg metoclopramide (REGLAN) injection 10 mg 10 mg, intravenous, Every 8 hours PRN, other, Nausea/vomiting, Starting on Sun11/03/22 at 0156 ondansetron (ZOFRAN) injection 4 mg 4 mg, intravenous, Administer over 2 Minutes, Every 6 hours PRN, nausea, vomiting, Starting on Sun11/03/22 at 0156 documented in this encounter Discontinued Medications Medication Sig Discontinue Reason Start Date End Da te balsalazide (COLAZAL) 750 mg capsuleIndications:c erative Colitis Take 3 capsules three times daily. Reorder 09/13/2020 11/07/2022 docosahexaenoic acid-epa 120-180 mg capsule Stop Taking at Discharge 11/07/2022 documented as of this encounter Active and Recently Administered Medications Times are shown in CDT. Scheduled Medication Order 11/05/2022 11/06/2022 11/07/2022 adalimumab (HUMIRA (CF) PEN) 40 mg/0.4 mL injection 40 mg 40 mg, subcutaneous, Every 7 days, First dose on 11/04/22 at 1400, Refrigerate 0923 (AUG Hold - Provider: Automatic Transfer Provider - Reason: Patient not available)1048 (AUG Unhold - Provider: Automatic Transfer Provider) allopurinoL (ZYLOPRIM) tablet 100 mg 100 mg, oral, Daily, First dose on 11/04/22 at 1030 0903 (Given - Provider: Anne Phan RN)0923 (AUG Hold - Provider: Automatic Transfer Provider - Reason: Patient not available)1048 (AUG Unhold - Provider: Automatic Transfer Provider) 0923 (Given - Provider: Henry Garrett RN) 0858 (Given - Provider: Henry Garrett RN) amoxicillin-clavulanate (AUGMENTIN) 875-125 mg per tablet 875 mg of amoxicillin (COMPLETED) 875 mg of amoxicillin, oral, Once, On Sun11/07/22 at 1315, For 1 dose, Please give now prior to discharge, Indications: Abdominal/Pelvic Infection 1423 (Given - Provider: Henry Garrett, JOSH) enoxaparin (LOVENOX) syringe 40 mg 40 mg, subcutaneous, Daily (for enoxaparin), First dose on Sun11/03/22 at 2100, Indications: VTE Prophylaxis 0923 (AUG Hold - Provider: Automatic Transfer Provider - Reason: Patient not available)1048 (AUG Unhold - Provider: Automatic Transfer Provider)2034 (Given - Provider: Olena Pelayo, RN) 2114 (Given - Provider: Bessie Lezama RN) folic acid (FOLVITE) tablet 1 mg 1 mg, oral, Daily, First dose on Sun11/04/22 at 1030 0903 (Given - Provider: Anne Phan RN)0923 (AUG Hold - Provider: Automatic Transfer Provider - Reason: Patient not available)1048 (AUG Unhold - Provider: Automatic Transfer Provider) 0923 (Given - Provider: Henry Garrett RN) 0858 (Given - Provider: Henry Garrett RN) mercaptopurine (PURINETHOL) tablet 50 mg 50 mg, oral, Daily, First dose on Sun11/04/22 at 1400, Indications: Crohn's Disease 0903 (Given - Provider: Anne Phan RN)0923 ([facility] Hold - Provider: Automatic Transfer Provider - Reason: Patient not available)1048 ([facility] Unhold - Provider: Automatic Transfer Provider) 0923 (Given - Provider: Henry Garrett RN) 0858 (Given - Provider: Henry Garrett RN) piperacillin-tazobactam (ZOSYN) 3.375 gram/115 mL in sodium [...] Infection 0607 (New Bag - Provider: Olena Pelayo RN)0923 (AUG Hold - Provider: Automatic Transfer Provider - Reason: Patient not available)1048 (AUG Unhold - Provider: Automatic Transfer Provider)1359 (New Bag - Provider: Anne Phan, JOSH)2130 (New Bag - Provider: Olena Pelayo RN) 0535 (New Bag - Provider: Olena Pelayo RN)1346 (New Bag - Provider: Henry Garrett, JOSH)2115 (New Bag - Provider: Bessie Lezama, JOSH) 0539 (New Bag - Provider: Bessie Lezama RN) sodium chloride 0.9% flush 0.5-20 mL (CANCELED) 0.5-20 mL, intra-catheter, Every 8 hours scheduled, First dose on 11/04/22 at 1530, Pre-Op/Floor (GI), Flush volume based on line type and size. 0607 (Given - Provider: Olena Pelayo RN) Continuous Medication Order 11/05/2022 11/06/2022 11/07/2022 sodium chloride 0.9% infusion (CANCELED) 50 mL/hr, intravenous, Continuous, Starting on Sun11/03/22 at 0230 0925 (Rate/Dose Verify - Provider: Ed Stephens MD)0935 (New Bag - Provider: Ed Stephens MD)1359 (New Bag - Provider: Anne Phan, JOSH) 0539 (New Bag - Provider: Bessie [...] Run as primary IV, not intended for O 0923 ([facility] Hold - Provider: Automatic Transfer Provider - Reason: Patient not available)1048 ([facility] Unhold - Provider: Automatic Transfer Provider) colestipoL (COLESTID) tablet 1 g (PATIENT HOME SUPPLIED MEDICATION) 1 g, oral, 4 times daily PRN, bile acid sequestrant, Starting on Sun11/03/22 at 1644, PRN diarrhea Schedule other medications 1 hour before or 4 hours after colestipol. Med/Strength/Formulation: colestipol 1g Do not crush, chew, cut, dissolve, open or otherwise manipulate tablet/capsule. 0923 ([facility] Hold - Provider: Automatic Transfer Provider - Reason: Patient not available)1048 ([facility] Unhold - Provider: Automatic Transfer Provider) 6 (Given - Provider: Bessie Lezama RN) metoclopramide (REGLAN) injection 10 mg 10 mg, intravenous, Every 8 hours PRN, other, Nausea/vomiting, Starting on Sun11/03/22 at 0156 0923 ([facility] Hold - Provider: Automatic Transfer Provider - Reason: Patient not available)1048 ([facility] Unhold - Provider: Automatic Transfer Provider) ondansetron (ZOFRAN) injection 4 mg 4 mg, intravenous, Administer over 2 Minutes, Every 6 hours PRN, nausea, vomiting, Starting on Sun11/03/22 at 0156 0923 ([facility] Hold - Provider: Automatic Transfer Provider - Reason: Patient not available)1048 ([facility] Unhold - Provider: Automatic Transfer Provider) documented in this encounter Orders Medications Ordered That Nilo ht Not Have Been Administered Count Last Ordered Date First Ordered Date amoxicillin-clavulanate (AUG MENTIN) 875-125 mg per tablet 875 mg of amoxicillin 1 11/07/2022 sodium chloride 0.9% infusion 2 11/05/2022 11/03/2022 adalimumab (HUMIRA (CF) PEN) 40 mg/0.4 mL injection 40 mg 1 11/04/2022 allopurinoL (ZYLOPRIM) tablet 100 mg 1 11/2022 Carrier Fluids for Secondary Infusion - 0.9% Sodium Chloride 2 11/04/2022 11/03/2022 folic acid (FOLVITE) tablet 1 mg 1 11/05/19 mercaptopurine (PURINETHOL) tablet 50 mg 1 11/04/2022 sodium chloride 0.9% flush 0.5-20 mL 2 11/2022 cholestyramine-aspartame (QU ESTRAN LIGHT) 4 gram packet 1 packet 1 11/03/2022 colestipoL (COLESTID) tablet 1 g (PATIENT HOME SUPPLIED MEDICATION) 1 11/03/2022 enoxaparin (LOVENOX) syringe 40 mg 1 2022 metoclopramide (REGLAN) injection 10 mg 1 0 11/03/2022 ondansetron (ZOFRAN) injection 4 mg 2 11/0311/02/2022 piperacillin-tazobactam (ZOS YN) 3.375 gram/115 mL in sodium chloride 0.9% (premix) 3.375 g 1 11/03/2022 acetaminophen (TYLENOL) tablet 650 mg 1 09/2022 calcium gluconate 1 g/50 mL in sodium chloride (premix) solution 1 g 1 11/02/2022 HYDROmorphone (DILAUDID) injection 0.2 mg 1 11/02/2022 iohexoL (OMNIPAQUE) 350 mg i odine/mL injection solution 100 mL 1 11/02/2022 methylPREDNISolone sodium amaya ccinate (SOLU-medrol) preservative free injection 125 mg 1 11/02/2022 piperacillin-tazobactam (ZOS YN) 4.5 g in sodium chloride 0.9% 100 mL IVPB 1 11/02/2022 sodium chloride 0.9% bolus 1,000 mL 2 11/02 Diet Count Last Ordered Date First Orde [...] 11/04/2022 documented in this encounter Care Teams Tooth Cutter Pinion Relationship Specialty Start Date End Date Lanre Parekh DO PCP - General Family Medicine 01/23/19 documented as of this encounter
--- OUTSIDE RECORDS SUMMARY | 2024-07-09 05:23 | XMS_ITS | Encounter Summary ---
Author Organization [facility] Address [address] [place] [address] Phone Care Team Providers Care Orchard Sprayer Name Role Phone Lanre Parekh Primary Care Provide r Encounter Details Date Type Department Care Team (Late st Contact Info) Description 10/26/2022 9:45 AM CDT Office Visit [facility] [address] [facility] [facility] Medicine 12th [place] [address] [place] [id number] Eliana Quevedo MD [address] [place] [address] Crohn's disease of both small and large intestine with intestinal obstruction (HCC) (Primary Dx); History of high risk medication treatment; Immunocompromised (HCC) Social History Tobacco Use Types Packs/Day [...] on file Legal Sex Male 11:11 PM 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 [employer]ER Gender Identity Not on file Sexual Orientation Not on file documented as of this encounter Last Filed Vital Signs Vital Sign Reading Time Taken Comments Blood Pressure 145/91 10/26/2022 9:44 AM CDT Pulse 84 10/26/2022 9:44 AM CDT Temperature 36.9 ??C (98.5 ??F) 10/26/2022 9:44 AM CD T Respiratory Rate - - Oxygen Saturation - - Inhaled Oxygen Concentration - - Weight 88.7 kg (195 lb 9.6 oz) 10/26/2022 9:44 A M CDT Height 172.7 cm (5' 8 ) 10/26/2022 9:44 AM CDT Body Mass Index 29.74 10/26/2022 9:44 AM CDT documented in this encounter Patient Instructions * Patient Instructions* Rowan Cardenas RN - 10/26/2022 9:45 AM CDT Return office visit is needed in 6 months Safety labs are needed every 3 months, next labs currently overdue. Standing orders placed at [facility] We will also check your TSH- order placed at [facility] The pneumovax vaccine was provided in clinic today Please obtain the updated Covid booster (available at most pharmacies) at least 2 weeks after othervaccines A prescription for Folic Acid will be sent to your pharmacy. Humira samples (2 pens) provided to patient Please monitor your blood pressure, should be below 130/90 Please try using Calmoseptine Refills for Azathioprine and Allopurinol sent to [facility] We will place an order for the Shingrix vaccine to be given at [address] You will be contacted for scheduling documented in this encounter Ordered Prescriptions Prescription Sig Dispense Quantity Refills Last Filled Start Date End Date mercaptopurine (PURINETHOL) 50 mg tabletIndications: Crohn's Disease Take 1 tablet (50 mg total) by mouth daily Safety labs required every 3 months for med refills, next labs due today then December 2022. 90 tablet 10/26/2022 3 allopurinoL (ZYLOPRIM) 100 mg tabletIndications: Crohn's disease of both small and large intestine with intestinal obstruction (HCC) Take 1 tablet (100 mg total) by mouth daily Safety labs required every 3 months, Next labs due today then December 2022 90 tablet 10/26/2022 3 folic acid (FOLVITE) 1 mg tabletIndications: Crohn's disease of both small and large intestine with intestinal obstruction (HCC) Take 1 tablet (1 mg total) by mouth daily 90 tablet 3 10/26/2022 3 folic acid (FOLVITE) 1 mg tabletIndications: Crohn's disease of both small and large intestine with intestinal obstruction (HCC) Take 1 tablet (1 mg total) by mouth daily 90 tablet 3 10/26/2022 3 documented in this encounter Progress Notes * Chaparrita Leone - 10/26/2022 9:45 AM CDT Patient received vaccination administered in left deltoid. EXP: 03/26/2024 * Julia Alonzo MD - 10/26/2022 9:45 AM CDT Reason for visit: Follow-up of ileocolonic stricturing Crohn's disease Problem List: 1. Ileocolonic stricturing Crohn's disease diagnosed in 2005, status post ileocecectomy in 2018; the patient recently underwent a colonoscopy in 2018, while being maintained on Humira and methotrexate, and subsequently while being maintained on Humira and 6-MP. This year, there really was not much difference in 6-MP and methotrexate, but on the other hand, we did note lower Humira levels, and so Humira was increased to weekly. Colonoscopy in December 2021 demonstrated mucosal remission, and so we kept him on a combination of Humira as well as 6-MP, and he is scheduled to have his next colonoscopyin the fall. When thiopurine metabolites were checked in July of 2022, they were low butno changes made to his medications given that he remained in clinical as well as mucosal remission on recent colonoscopy. 2. Status post his initial 2 COVID vaccines but no booster (has previously declined at numerous visits). Current medications: 1. Humira 40 mg weekly. 2. Allopurinol 100 mg a day. 3. Balsalazide 750 mg 2 tablets three times a day. 4. Colestipol daily 5. Folic acid daily. 6. Probiotic daily. 7. Mercaptopurine 50 mg tablet. 8. Multivitamin daily. HPI: Nic Teran is a 31 y.o. male with history of stricturing ileocolonic Crohn's disease with prior ileocecectomy in 2018 who is currently maintained on weekly Humira in addition to a combination of mercaptopurine and allopurinol. Patient reports that he has been doing generally very well. He typically has 1 formed bowel movement per day while taking colestipol 1 daily. He reports full compliance with 6 mercaptopurine. He does note some changes to his insurance and then difficulty obtaining Humira from the pharmacy. When he last received a shipment, he only had 2 injection insteadof the typical 4. He has also had some weight gain of about 10-15 over the last few months which he attributes to increased stress at home. He reports that his father a few months ago andthat he had increased responsibilities, particularly given that his brother has mental illness. He is not noted any significant changes to his diet other than that he is now eating a bedtime snack which he previously was not eating. He continues to exercise about 4 time each week typically lasting for about 45 minute with a combination of weightlifting and cardio. His blood pressure was high today at 145/91 and he reports no prior history of hypertension or elevated blood pressure readings. He has an umbilical hernia with a small granuloma on top which he continues to pick at; attributes this to anxiety. Review of Systems: On complete review of systems, all other systems are negative. Allergies Allergen Reactions Flagyl [Metronidazole] Other (See comments) Neuropathy Physical Exam: BP 145/91 Pulse 84 Temp 36.9 ??C (98.5 ??F) Ht 172.7 cm (5' 8 ) Wt 88.7 kg (195 lb 9.6 oz) BMI 29.74 kg/m?? General: Awake, alert, no apparent distress, well nourished HEENT: Normocephalic, atraumatic, anicteric, conjunctiva normal Pulmonary: Clear to auscultation bilaterally Cardiovascular: Regular rhythm and rate, normal S1/S2, no murmurs/rubs/gallops Abdomen: Soft, non-tender, non-distended, normoactive bowel sounds; very small umbilical hernia with some ulceration/granulation of overlying skin, appears friable in few areas where epidermis has been scratched off Extremities: Warm and well perfused, no cyanosis, no clubbing, no edema Skin: Warm, dry, no rashes Neuro: No focal deficits Psych: Normal affect and mood Assessment/Plan: Nic amin is a pleasant 31-year-old man who returns clinic for follow-up of ileocolonic Crohn's disease. He is currently maintained on weekly Humira in addition to 6 mercaptopurine and allopurinol.His last colonoscopy in December of 2021 demonstrated mucosal remission and will plan for repeat colonoscopy later this fall. Clinically, he continues to feel well. Although he had low metabolite levels in July of 2022, we will continue his medication without changes. He has recently had some issuesobtaining Humira with insurance changes and we will try and get these issues resolved. In the meantime, we will provide him with 2 samples for Humira. Patient continues to decline COVID-19 booster. We will administer Pneumovax in clinic today. Further, we will obtain authorization for shingles vaccine and arrange for him to get this done in the infusion center. He is currently only taking of meds vitamin. We have asked him to add folic acid to his regimen to obtain full 1 mg dose. Patient has had some weight gain over the past few months in addition to an elevated blood pressurereading today. We will check a TSH level with safety labs which will be done today, but likely weight gain is more due to dietary changes in the setting of increased stress at home for the last few months. We have asked patient to check his blood pressure intermittently in the next few weeks at local stores are pharmacy. If this is persistently high, he will contact his primary care physician. He appears to have what looks like potentially a suture granuloma at his umbilicus which is causingsome irritation. We have asked him to apply some topical Calmoseptine. He can cover it with a bandage or with the belly band to decrease the likelihood of him picking at it. If this persists and doesnot heal, we can have him see colorectal surgery Dr. Portillo. We will see the patient back in clinic in 6 months. The patient was given ample opportunity to ask any questions and their questions were answered. Cosigned by Eliana Quevedo MD at 10/27/2022 7:20 AM CDT Associated attestation - Eliana Quevedo MD - 10/27/2022 7:20 AM CDT I have seen and examined the patient. I agree with the findings and plan of care as documented in the resident/fellow's note. My total encounter time on 10/26/2022 was 30 minutes which was spent in the activities documented in the note. This includes time spent prior to the visit and after the visitin direct care of the patient. This time does not include time spent in any separately reportable services. documented in this encounter Plan of Treatment Scheduled Orders Name Type Priority Associated Diagnoses Orde r Schedule TSH reflex to free T4 Lab Routine Crohn's disease of both small and large intestine with intestinal obstruction (HCC) Expected: 10/26/2022, Expires: 10/27/2023 documented as of this encounter Procedures Procedure Name Priority Date/Time Associated Diagnosis Comments COPY(IES) SENT TO: Routine 08/27/2023 8: 44 AM TAKER OFF [employer]ER HEPATIC FUNCTION PANEL Routine 08/27/2023 8:44 AM TAKER OFF [employer]P [employer]IBER Crohn's disease of both small and large intestine with intestinal obstruction (HCC) History of high risk medication treatment COPY(IES) SENT TO: Routine 02/05/2023 10 :38 AM CDT THYROID FUNCTION CASCADE Routine 02/05/2023 10:38 AM CDT CBC WITH AUTO DIFFERENTIAL Routine 02/05/2023 10:38 AM CDT Crohn's disease of both small and large intestine with intestinal obstruction (HCC) History of high risk medication treatment HEPATIC FUNCTION PANEL Routine 02/05/2023 10:38 AM CDT COPY(IES) SENT TO: Routine 10/26/2022 1: 36 PM CDT THYROID FUNCTION CASCADE Routine 10/26/2022 1:36 PM CDT CBC WITH AUTO DIFFERENTIAL Routine 10/26/2022 1:36 PM CDT Crohn's disease of both small and large intestine with intestinal obstruction (HCC) History of high risk medication treatment HEPATIC FUNCTION PANEL Routine 10/26/2022 1:36 PM CDT Crohn's disease of both small and large intestine with intestinal obstruction (HCC) History of high risk medication treatment documented in this encounter Results * COPY(IES) SENT TO: (08/27/2023 8:44 AM TAKER OFF HEMP [employer]ER) COPY(IES) SENT TO: [facility] Comment: ?[facility] ?COPY TO ACCOUNT ?[id number] ?[place] [address] 08/27/2023 8:44 AM TAKER OFF [employer]ER 08/27/2023 8:45 AM TAKER OFF H[employer]IBER Eliana Quevedo MD LAB BLOOD ORDERABLE S Final Result [facility] * Hepatic function panel (08/27/2023 8:44 AM TAKER OFF HEMP [employer]IBER) Protein, Total 7.8 6.4 - 8.4 g/dL [facility] Albumin 4.5 3.6 - 5.1 g/dL [facility] Globulin 3.3 2.2 - 4.0 g/dL (calc) [facility] Alb/glob ratio 1.4 0.9 - 2.3 (calc) [facility] Bilirubin, total 0.6 0.2 - 1.2 mg/dL [facility] Bilirubin, direct 0.1 < OR = 0.2 mg/dL [facility] Bilirubin, indirect 0.5 0.2 - 1.2 mg/dL (calc) [facility] Alk phos 58 36 - 130 U/L [facility] AST 22 10 - 40 U/L [facility] ALT (SGPT) 23 9 - 46 U/L [facility] Blood 08/27/2023 8:44 AM TAKER OFF HEMP [employer]IBER 08/27/2023 8:45 AM TAKER OFF HEMP [employer]IBER Eliana Quevedo MD LAB BLOOD ORDERABLE S Final Result Performing Organization Address City/[facility]/ZIP Co de Phone Number [facility] [address] [place] [address] * TSH reflex to free T4 (02/05/2023 10:38 AM CDT) Pathologist [facility] TSH 0.74 0.40 - 4.50 mIU/L [facility] 02/05/2023 10:3 8 AM CDT 02/05/2023 10:39 AM CDT Eliana Quevedo MD LAB BLOOD ORDERABLE S Final Result Performing Organization Address [facility] Co de Phone Number [facility] [address] [place] [address] * Hepatic function panel (02/05/2023 10:38 AM CDT) Pathologist [facility] Protein, Total 8.0 6.4 - 8.4 g/dL [facility] Albumin 4.6 3.6 - 5.1 g/dL [facility] Globulin 3.4 2.2 - 4.0 g/dL (calc) [facility] Alb/glob ratio 1.4 0.9 - 2.3 (calc) [facility] Bilirubin, total 0.8 0.2 - 1.2 mg/dL [facility] Bilirubin, direct 0.2 < OR = 0.2 mg/dL [facility] Bilirubin, indirect 0.6 0.2 - 1.2 mg/dL (calc) [facility] Alk phos 66 36 - 130 U/L [facility] AST 25 10 - 40 U/L [facility] ALT (SGPT) 26 9 - 46 U/L [facility] 02/05/2023 10:3 8 AM CDT 02/05/2023 10:39 AM CDT Eliana Quevedo MD LAB BLOOD ORDERABLE S Final Result Performing Organization Address [facility]/ZIP Co de Phone Number [facility] [address] [place] [address] * COPY(IES) SENT TO: (02/05/2023 10:38 AM CDT) [facility] COPY(IES) SENT TO: [facility] Comment: ?[facility] ?COPY TO ACCOUNT ?[id number] ?[place] [address] 02/05/2023 10:3 8 AM CDT 02/05/2023 10:39 AM CDT Eliana Quevedo MD LAB BLOOD ORDERABLE S Final Result [facility] * (ABNORMAL) CBC with auto differential (02/05/2023 10:38 AM CDT) WBC 5.6 3.8 - 10.8 Thousand/u L [facility] RBC, POC 3.83(L) 4.20 - 5.80 Million/uL [facility] Hgb 12.8(L) 13.2 - 17.1 g/dL [facility] Hct 38.5 38.5 - 50.0 % [facility] MCV 100.5(H) 80.0 - 100.0 fL [facility] MCH 33.4(H) 27.0 - 33.0 pg [facility] MCHC 33.2 32.0 - 36.0 g/dL [facility] Rdw 13.3 11.0 - 15.0 % [facility] Platelets 217 140 - 400 Thousand/u L [facility] MPV 11.2 7.5 - 12.5 fL [facility] Neutrophils, abs 3,472 1,500 - 7,800 cells/uL [facility] Lymphocytes, abs 1,736 850 - 3,900 cells/uL [facility] Monocyte abs 330 200 - 950 cells/uL [facility] Eosinophils, abs 22 15 - 500 cells/uL [facility] Basophils, abs 39 0 - 200 cells/uL [facility] Neutrophils 62 % [facility] Lymphocyte pct 31.0 % [facility] Monocytes 5.9 % [facility] Eosinophils 0.4 % [facility] Basophils 0.7 % [facility] Blood 02/05/2023 10:3 8 AM CDT 02/05/2023 10:39 AM CDT Eliana Quevedo MD LAB BLOOD ORDERABLE S Final Result Performing Organization Address City/[facility]/ZIP Co de Phone Number [facility] [address] [place] [address] * TSH reflex to free T4 (10/26/2022 1:36 PM CDT) TSH 0.99 0.40 - 4.50 mIU/L [facility] 10/26/2022 1:36 PM CDT 10/26/2022 1:37 PM CDT Eliana Quevedo MD LAB BLOOD ORDERABLE S Final Result Performing Organization Address [facility] Co de Phone Number [facility] [address] [place] [address] * COPY(IES) SENT TO: (10/26/2022 1:36 PM CDT) COPY(IES) SENT TO: [facility] Comment: ?[facility] ?COPY TO ACCOUNT ?[id number] ?[place] [address] 10/26/2022 1:36 PM CDT 10/26/2022 1:37 PM CDT Eliana Quevedo MD LAB BLOOD ORDERABLE S Final Result [facility] * Hepatic function panel (10/26/2022 1:36 PM CDT) Protein, Total 8.1 6.4 - 8.4 g/dL [facility] Albumin 4.6 3.6 - 5.1 g/dL [facility] Globulin 3.5 2.2 - 4.0 g/dL (calc) [facility] Alb/glob ratio 1.3 0.9 - 2.3 (calc) [facility] Bilirubin, total 0.6 0.2 - 1.2 mg/dL [facility] Bilirubin, direct 0.1 < OR = 0.2 mg/dL [facility] Bilirubin, indirect 0.5 0.2 - 1.2 mg/dL (calc) [facility] Alk phos 67 36 - 130 U/L [facility] AST 24 10 - 40 U/L [facility] ALT (SGPT) 25 9 - 46 U/L [facility] Blood 10/26/2022 1:36 PM CDT 10/26/2022 1:37 PM CDT us Eliana Quevedo MD LAB BLOOD ORDERABLE S Final Result [facility] [address] [place] [address] * (ABNORMAL) CBC with auto differential (10/26/2022 1:36 PM CDT) WBC 6.5 3.8 - 10.8 Thousand/u L [facility] RBC, POC 4.07(L) 4.20 - 5.80 Million/uL [facility] Hgb 13.9 13.2 - 17.1 g/dL [facility] Hct 40.9 38.5 - 50.0 % [facility] MCV 100.5(H) 80.0 - 100.0 fL [facility] MCH 34.2(H) 27.0 - 33.0 pg [facility] MCHC 34.0 32.0 - 36.0 g/dL [facility] Rdw 13.1 11.0 - 15.0 % [facility] Platelets 221 140 - 400 Thousand/u L [facility] MPV 11.1 7.5 - 12.5 fL [facility] Neutrophils, abs 3,666 1,500 - 7,800 cells/uL [facility] Lymphocytes, abs 2,334 850 - 3,900 cells/uL [facility] Monocyte abs 410 200 - 950 cells/uL [facility] Eosinophils, abs 39 15 - 500 cells/uL [facility] Basophils, abs 52 0 - 200 cells/uL [facility] Neutrophils 56.4 % [facility] Lymphocyte pct 35.9 % [facility] Monocytes 6.3 % [facility] Eosinophils 0.6 % [facility] Basophils 0.8 % [facility] Blood 10/26/2022 1:36 PM CDT 10/26/2022 1:37 PM CDT us Eliana Quevedo MD LAB BLOOD ORDERABLE S Final Result [facility] [address] [place] [address] documented in this encounter Visit Diagnoses Diagnosis Crohn's disease of both small and large intestine with intestinal obstruction (HCC)- Primary History of high risk medication treatment Immunocompromised (HCC) Unspecified immunity deficiency documented in this encounter Discontinued Medications Medication Sig Discontinue Reason Start Date End Da te folic acid (FOLVITE) 1 mg tabletIndications:Crohn' s disease of both small and large intestine with intestinal obstruction (HCC) Take 1 tablet (1 mg total) by mouth daily Reorder 02/27/2022 10/26/2022 allopurinoL (ZYLOPRIM) 100 mg tabletIndications:Crohn' s disease of both small and large intestine with intestinal obstruction (HCC) Take 1 tablet (100 mg total) by mouth daily Safety labs required every 3 months, Next labs due 09/2022. Reorder 08/02/2022 10/26/2022 mercaptopurine (PURINETHOL) 50 mg tabletIndications:Crohn' s Disease Take 1 tablet (50 mg total) by mouth daily Safety labs required every 3 months for med refills, next labs due end September 2022. Reorder 09/22/2022 10/26/2022 folic acid (FOLVITE) 1 mg tabletIndications:Crohn' s disease of both small and large intestine with intestinal obstruction (HCC) Take 1 tablet (1 mg total) by mouth daily 10/26/2022 10/26/2022 documented as of this encounter Orders Immunization/Injection Count Last Ordered Date First Ordered Date PNEUMOCOCCAL POLYSACCHARIDE VACCINE 23-VALENT =>2YO SQ IM 1 10/26/2022 documented in this encounter Care Teams Orchard Sprayer Relationship Specialty Start Date End Date Lanre Parekh DO PCP - General Family Medicine 01/23/19 documented as of this encounter
--- OUTSIDE RECORDS SUMMARY | 2024-07-09 05:23 | XMS_ITS | Encounter Summary ---
Author Organization [facility] Address [address] [place] [address] Care Team Providers Care Recyclable Materials Collector Name Role Phone Lanre Parekh Primary Care Provide r Reason for Visit * Auth/Cert (Routine) Specialty Diagnoses / Procedures Referred By Contac t Referred To Contact Diagnoses Hypocalcemia Abdominal pain HERMELINDO (acute kidney injury) (HCC) History of Crohn's disease Diarrhea, unspecified type Procedures na Referral ID Status Reason Start Date Expiration Date Visits Re quested Visits Authorized [id number] 1 1 Encounter Details Date Type Department Care Team (Late st Contact Info) Description 11/05/2022 9:25 AM CDT Anesthesia Event [facility] GI Lab [address] [place] [id number] Ed Stephens MD [address] [facility] [address] [id number] Anesthesia Record Procedure Summary Procedure Name Responsible Anesthesiologist Anesthesia Start Time Anesthesia Stop Time COLON BIOPSY Ed Stephens MD 11/05/22 0925 0955 Events Date Time Event Comment 11/05/2022 0925 An Start 0925 An Start Data 0928 In Room 0940 Proc Start 0950 Proc Fin 0953 Out of Room 0955 An Stop Meds Name Total lidocaine (cardiac) syringe 2 % 100 mg propofol 250 mg sodium chloride 0.9% infusion 0 mL * Agents Name O2% N2O O2 N2O Air * Blood No blood administrations on file. Lines, Drains, and Airways Type Details Placement Removal Peripheral IV Placement Date: 10/22; Placement Time: 1825; Catheter Size: 18 G; Orientation: Left; Location: Antecubital; Removal Date: 11/06/22; Removal Time: 215611/02/221825 by Maribel Rodrigez RN 11/06/222156 by Bessie Lezama RN documented in this encounter Social History Tobacco [...] How often do you attend chur or shinto services? 1 to 4 times per year 11/03/2022 Do you belong to any clubs o r organizations such as taoism groups, unions, fraternal or athletic groups, or [...] place to sleep or slept in a half-way (including now)? No 11/03/2022 Personal Safety Answer Date Recorded Have you ever been in or are you currently in a harmful physical or emotional relationship or is someone making you feel afraid or unsafe? 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 ENDOSCOPY ROOM [facility] END[facility]COPY Anesthesia Start: 924 Anesthesia Stop: 954 Procedure: COLON BIOPSY Diagnosis: Diarrhea, unspecified type (Diarrhea, unspecified type [R19.7]) Providers: Luke Jones MD Responsible Provider: Ed Stephens MD Anesthesia Type: MAC ASA Status: 3 - Emergent Anesthesia Type: MAC Last vitals BP 125/70 Pulse 53 Temp 36.2 ??C (97.2 ??F) (Tympanic) Resp 16 SpO2 100% Anesthesia Post Evaluation Patient location during evaluation: PACU Patient participation: complete - patient participated Level of consciousness: fully awake Pain score: 0 Pain management: adequate Airway patency: adequate Cardiovascular status: acceptable Respiratory status: acceptable Hydration status: acceptable Pt is: normothermic Nausea/Vomiting status: none No notable events documented. * Anesthesia Preprocedure Evaluation - Ed Stephens MD - 11/05/2022 9:08 AM CDT Images from the original note were not included. Anesthesia Evaluation Nic Teran is a 32 y.o. male Procedure(s): COLONOSCOPY Pre-Op Diagnosis Codes: * Diarrhea, unspecified type [R19.7] Patient Active Problem List Diagnosis ??? Crohn's disease of both small and large intestine (HCC) ??? History of high risk medication treatment ??? Iritis ??? Osteoporosis ??? Crohn's disease with complication (HCC) ??? Acute postoperative pain ??? Generalized abdominal pain ??? Diarrhea due to malabsorption ??? Chronic pharyngitis ??? Abdominal pain ??? Enteritis ??? Acute cystitis ??? Acute kidney injury (CMS/HCC) (HCC) Past Medical History: Diagnosis Date ??? Allergic rhinitis ??? Anemia ??? Crohn's disease (CMS/HCC) (HCC) 2004 ??? GERD (gastroesophageal reflux disease) ??? Iritis ??? JALYN on CPAP Past Surgical History: Procedure Laterality Date ??? OTHER SURGICAL HISTORY 12/2017 ileocecal resection ??? VASECTOMY 2018 Allergies Allergen Reactions ??? Flagyl [Metronidazole] Other (See comments) Neuropathy Med List Status: Nurse Complete Set By: Bessie Lezama RN at 11/02/2022 11:48 PM Taking? Last Dose Start Date End Date Provider adalimumab (Humira,CF, Pen) 40 mg/0.4 mL pen injector kit Past Week 08/22/22 -- Eliana Quevedo MD Inject 0.4 mL (40 mg total) under the skin every 7 days Safety labs are required every 3 months formed refills, next labs due 09/2022 allopurinoL (ZYLOPRIM) 100 mg tablet 11/02/2022 10/31/22 01/29/23 Eliana Quevedo MD Take 1 tablet (100 mg total) by mouth daily Safety labs required every 3 months, Next labs due today then December 2022 Notes: aware of drug interaction with 6MP and wishes to dispense both balsalazide (COLAZAL) 750 mg capsule 11/02/2022 09/13/20 -- Eliana Quevedo MD Take 3 capsules three times daily. Patient taking differently: Take 2 capsules three times daily. colestipoL (COLESTID) 1 gram tablet 11/02/2022 07/28/22 -- Eliana Quevedo MD Take 1 tablet (1 g total) by mouth 4 (four) times a day as needed (loose stools) docosahexaenoic acid-epa 120-180 mg capsule 11/02/2022 -- -- Ryan Shook MD ergocalciferol (VITAMIN D) 50,000 unit capsule More than a month 11/07/21 -- Fernando Mckeon MD TAKE ONE CAPSULE BY MOUTH EVERY 14 DAYS folic acid (FOLVITE) 1 mg tablet 11/02/2022 10/31/22 -- Eliana Quevedo MD Take 1 tablet (1 mg total) by mouth daily L.acid/L.casei/B.bif/B.raf/FOS (PROBIOTIC BLEND ORAL) 11/02/2022 -- -- Ryan Shook MD mercaptopurine (PURINETHOL) 50 mg tablet 11/02/2022 10/31/22 -- Eliana Quevedo MD Take 1 tablet (50 mg total) by mouth daily Safety labs required every 3 months for med refills, next labs due today then December 2022. multivitamin capsule 11/02/2022 -- -- Ryan Shook MD sildenafiL (VIAGRA) 100 mg tablet More than a month 01/17/22 -- Simona Mraie, LISSETTE Take 1/2 or 1 tablet ONE hour prior to activity on an empty stomach daily PRN turmeric, bulk, 100 % powder 11/02/2022 -- -- Ryan Shook MD Current Facility-Administered Medications: ??? acetaminophen (TYLENOL) tablet 650 mg, 650 mg, oral, Q8H PRN, 650 mg at 11/03/22 1002 ??? adalimumab (HUMIRA (CF) PEN) 40 mg/0.4 mL injection 40 mg, 40 mg, subcutaneous, Q7 Days, 40 mg at 11/04/22 1344 ??? allopurinoL (ZYLOPRIM) tablet 100 mg, 100 mg, oral, Daily, 100 mg at 11/05/22902 ??? Carrier Fluids for Secondary Infusion - 0.9% Sodium Chloride, 30 mL, intravenous, PRN ??? Carrier Fluids for Secondary Infusion - 0.9% Sodium Chloride, 30 mL, intravenous, PRN ??? colestipoL (COLESTID) tablet 1 g (PATIENT HOME SUPPLIED MEDICATION), 1 g, oral, QID PRN, 1 g at11/03/222037 ??? enoxaparin (LOVENOX) syringe 40 mg, 40 mg, subcutaneous, Daily-2100, 40 mg at 11/04/222034 ??? folic acid (FOLVITE) tablet 1 mg, 1 mg, oral, Daily, 1 mg at 11/05/22902 ??? mercaptopurine (PURINETHOL) tablet 50 mg, 50 mg, oral, Daily, 50 mg at 11/05/22902 ??? metoclopramide (REGLAN) injection 10 mg, 10 mg, intravenous, Q8H PRN ??? ondansetron (ZOFRAN) injection 4 mg, 4 mg, intravenous, Q6H PRN ??? piperacillin-tazobactam (ZOSYN) 3.375 gram/115 mL in sodium chloride 0.9% (premix) 3.375 g, 3.375 g, intravenous, Q8H SHIVANI, Last Rate: 28.8 mL/hr at 11/05/22606, 3.375 g at 11/05/22606 ??? sodium chloride 0.9% flush 0.5-20 mL, 0.5-20 mL, intra-catheter, Q8H SHIVANI, 10 mL at 11/05/22606 ??? sodium chloride 0.9% flush 0.5-20 mL, 0.5-20 mL, intra-catheter, PRN ??? sodium chloride 0.9% infusion, 50 mL/hr, intravenous, Continuous, Last Rate: 50 mL/hr at 11/04/222203, 50 mL/hr at 05/06/23 2204 ??? sodium chloride 0.9% infusion, 30 mL/hr, intravenous, Continuous Social History Tobacco Use Smoking Status Never Smokeless Tobacco Never Vaping Use Vaping Status Not on file Alcohol Use: Unknown (01/23/2022) AUDIT-C ??? Frequency of Alcohol Consumption: 2-3 times a week ??? Average Number of Drinks: Not on file ??? Frequency of Binge Drinking: Not on file Substance and Sexual Activity Drug Use Not Currently ??? Types: Marijuana Family History Problem Relation Age of Onset ??? Hypertension Mother Family history of hypertension - (Added by TW Conv) ??? Kidney failure Mother Family history of renal failure - (Added by Kaldoora Conv) ??? Hypertension Father Family history of hypertension - (Added by Kaldoora Conv) ??? Ulcerative colitis Mother's Sister Vitals: 11/04/22 2334 11/05/22 0344 11/05/22 0809 BP: 124/77 127/84 138/84 Pulse: 79 65 67 Resp: 19 20 16 Temp: 36.6 ??C (97.9 ??F) 36.6 ??C (97.8 ??F) 36.4 ??C (97.6 ??F) SpO2: 95% 99% 97% PT: No results found for requested labs within last 30 days. INR: No results found for requested labs within last 30 days. APTT: No results found for requested labs within last 30 days. Hgb A1C: No results found for requested labs within last 30 days. CBC RBC: 11/05/2022: 3.61 M/cumm (L) RDW: 10/26/2022: 13.1 % MCHC: 11/05/2022: 33.9 g/dL MCH: 11/05/2022: 34.1 pg (H) MCV: 11/05/2022: 100.6 fL (H) Hct: 11/05/2022: 36.3 % (L) Hgb: 11/05/2022: 12.3 g/dL (L) WBC: 11/05/2022: 5.4 K/cumm MPV: 11/05/2022: 10.7 fL Platelets: 11/05/2022: 190 K/cumm RDW CV: 11/05/2022: 13.5 % RDW Sd: 11/05/2022: 50.2 fL (H) BMP Glucose: 11/05/2022: 88 mg/dL Calcium: 11/05/2022: 8.3 mg/dL (L) Sodium: 11/05/2022: 138 mmol/L Potassium: 11/05/2022: 3.7 mmol/L CO2: 11/05/2022: 19 mmol/L (L) Chloride: 11/05/2022: 106 mmol/L BUN: 11/05/2022: 10 mg/dL Creatinine: 11/05/2022: 0.70 mg/dL (L) DOS Physical Exam Medical history, medications, and allergies reviewed. Attestation: This PAT evaluation 11/05/2022. Airway Exam: Mallampati: II Cardiovascular Exam: Rate: regular Rhythm: regular Pulmonary Exam: LCTA, bilat Current state: Patient's current state is cooperative. Anesthesia Plan ASA 3- emergent Planned anesthesia: MAC Informed Consent: Anesthesia plan and risks discussed with patient. Consent and Attending signature: I and/or my designee have discussed the anesthesia plan, benefits, possible alternatives, parental presence at time of induction (if indicated), and clinically relevant risks that may include dental injury, unintentional awareness, and/or other complications. The patient and/or parent/legal guardian understand, and agree to proceed. All questions answered. documented in this encounter Plan of Treatment Not on file documented as of this encounter Visit Diagnoses Not on filedocumented in this encounter Administered Medications Inactive Administered Medications - up to 3 most recent administrations Medication Order MAR Action Action Date Dose Rate Site lidocaine (cardiac) (XYLOCAINE) preservative free injection intravenous, As needed, Starting on 11/05/22 at 0928, Anesthesia Intra-op, Indications: Ventricular ArrhythmiasIndications:Ventricular Arrhythmias Given 11/05/2022 9:28 AM CDT 100 mg propofoL (DIPRIVAN) 10 mg/mL IV intravenous, As needed, Starting on 11/05/22 at 0928, Anesthesia Intra-op Given 11/05/2022 9:42 AM CDT 60 mg Given 11/05/2022 9:32 AM CDT 150 mg Given 11/05/2022 9:28 AM CDT 40 mg sodium chloride 0.9% infusion 50 mL/hr, intravenous, Continuous, Starting on Sun11/03/22 at 0230 New Bag 11/07/2022 5:39 AM CDT 50 mL/hr 50 mL/hr New Bag 11/05/2022 1:59 PM CDT 50 mL/hr 50 mL/hr New Bag 11/05/2022 9:35 AM CDT 150 mL/hr documented in this encounter Care Teams Recyclable Materials Collector Relationship Specialty Start Date End Date Lanre Parekh DO PCP - General Family Medicine 01/23/19 documented as of this encounter
--- OUTSIDE RECORDS SUMMARY | 2024-07-09 05:24 | XMS_ITS | Encounter Summary ---
Author Organization [facility] Address [address] [place] [address] Phone Care Team Providers Care Program Director Cable Television Name Role Phone Lanre Parekh Primary Care Provide r Encounter Details Date Type Department Care Team (Late st Contact Info) Description 03/07/2022 Orders Only [facility] [address] [facility] Medicine 12th [place] [address] [place] [address] Eliana Quevedo MD [address] [place] [address] Crohn's disease of both small and large intestine with intestinal obstruction (HCC) (Primary Dx) Social History Tobacco Use [...] on file Legal Sex 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 Gender Identity Not on file Sexual Orientation Not on file documented as of this encounter Plan of Treatment Scheduled Orders Name Type Priority Associated Diagnoses Orde r Schedule CBC with auto differential Lab Routine Crohn's disease of both small and large intestine with intestinal obstruction (HCC) every 3 months for 4 Occurrences starting 03/07/2022 until 03/07/2023, 1 completed Hepatic function panel Lab Routine Crohn's disease of both small and large intestine with intestinal obstruction (HCC) every 3 months for 4 Occurrences starting 03/07/2022 until 03/07/2023, 1 completed documented as of this encounter Procedures Procedure Name Priority Date/Time Associated Diagnosis Comments COPY(IES) SENT TO: Routine 03/07/2022 3: 23 PM CDT THIOPURINE METABOLITES Routine 03/07/2022 3:23 PM CDT TB TEST, QUANTIFERON GOLD Routine 03/07/2022 3:23 PM CDT Crohn's disease of both small and large intestine with intestinal obstruction (HCC) CBC WITH AUTO DIFFERENTIAL Routine 03/07/2022 3:23 PM CDT Crohn's disease of both small and large intestine with intestinal obstruction (HCC) HEPATIC FUNCTION PANEL Routine 03/07/2022 3:23 PM CDT Crohn's disease of both small and large intestine with intestinal obstruction (HCC) documented in this encounter Results * Thiopurine metabolites (03/07/2022 3:23 PM CDT) 6-TG, bld 348 235 - 400 pmol/8x10( 8)RBC [facility] Comment: This test was developed and its analytical performance characteristics have been determined by [employer]. It has not been cleared or approved by the FDA. This assay has been validated pursuant to the CLIA regulations and is used for clinical purposes. 6 MMP 921 <5,700 pmol/8x10( 8)[facility]BC [facility] Comment: These results are useful in assessing a [...] analytical performance characteristics have been determined by [employer]. It has not been cleared or approved by the FDA. This assay has been validated pursuant to the CLIA regulations and is used for clinical purposes. 03/07/2022 3:23 PM CDT 03/07/2022 3:24 PM CDT Narrative [facility] - 03/11/2022 2:35 PM CDT FASTING:NO FASTING: NO Eliana Quevedo MD LAB BLOOD ORDERABLE S Final Result VICTORIANO [facility] [address] [place] [address] * COPY(IES) SENT TO: (03/07/2022 3:23 PM CDT) COPY(IES) SENT TO: [facility] Comment: ?[facility] ?COPY TO ACCOUNT ?[id number] [facility] [facility] [address] ?[place] [address] 03/07/2022 3:23 PM CDT 03/07/2022 3:24 PM CDT Narrative [facility] - 03/11/2022 2:35 PM CDT FASTING:NO FASTING: NO Eliana Quevedo MD LAB BLOOD ORDERABLE S Final Result [facility] * TB test, quantiferon gold (03/07/2022 3:23 PM CDT) QuantiFERON(R)-T B Gold Plus, 1 Tube NEGATIVE NEGATIVE [facility] Comment: Negative test result. M. tuberculosis complex infection unlikely. NIL 0.01 IU/mL [facility] MITOGEN-NIL 5.32 IU/mL [facility] TB1-NIL 0.00 IU/mL [facility] TB2-NIL 0.00 IU/mL [facility] Comment: The Nil [...] T-lymphocytes. For additional information, please refer to [email or web address] (This link is being provided for informational/ educational purposes only.) ? Your request to have a duplicate copy faxed has been acknowledged. ?Queued to: ??[id number] Blood 03/07/2022 3:23 PM CDT 03/07/2022 3:24 PM CDT [facility] - 03/11/2022 2:35 PM CDT FASTING:NO FASTING: NO Eliana Quevedo MD LAB BLOOD ORDERABLE S Final Result [facility] [address] [place] [address] * Hepatic function panel (03/07/2022 3:23 PM CDT) Protein, Total 8.0 6.4 - 8.4 g/dL [facility] Albumin 4.6 3.6 - 5.1 g/dL [facility] Globulin 3.4 2.2 - 4.0 g/dL (calc) [facility] Alb/glob ratio 1.4 0.9 - 2.3 (calc) [facility] Bilirubin, total 0.8 0.2 - 1.2 mg/dL [facility] Bilirubin, direct 0.2 < OR = 0.2 mg/dL [facility] Bilirubin, indirect 0.6 0.2 - 1.2 mg/dL (calc) [facility] Alk phos 76 36 - 130 U/L [facility] AST 27 10 - 40 U/L [facility] ALT (SGPT) 27 9 - 46 U/L [facility] Blood 03/07/2022 3:23 PM CDT 03/07/2022 3:24 PM CDT Narrative [facility] - 03/11/2022 2:35 PM CDT FASTING:NO FASTING: NO us Eliana Quevedo MD LAB BLOOD ORDERABLE S Final Result [facility] [address] [place] [address] * (ABNORMAL) CBC with auto differential (03/07/2022 3:23 PM CDT) WBC 5.7 3.8 - 10.8 Thousand/u L [facility] RBC, POC 4.01(L) 4.20 - 5.80 Million/uL [facility] Hgb 14.0 13.2 - 17.1 g/dL [facility] Hct 40.4 38.5 - 50.0 % [facility] MCV 100.7(H) 80.0 - 100.0 fL [facility] MCH 34.9(H) 27.0 - 33.0 pg [facility] MCHC 34.7 32.0 - 36.0 g/dL [facility] Rdw 13.0 11.0 - 15.0 % [facility] Platelets 279 140 - 400 Thousand/u L [facility] MPV 10.4 7.5 - 12.5 fL [facility] Neutrophils, abs 3,369 1,500 - 7,800 cells/uL [facility] Lymphocytes, abs 1,761 850 - 3,900 cells/uL [facility] Monocyte abs 462 200 - 950 cells/uL [facility] Eosinophils, abs 68 15 - 500 cells/uL [facility] Basophils, abs 40 0 - 200 cells/uL [facility] Neutrophils 59.1 % [facility] Lymphocyte pct 30.9 % [facility] Monocytes 8.1 % [facility] Eosinophils 1.2 % [facility] Basophils 0.7 % [facility] Blood 03/07/2022 3:23 PM CDT 03/07/2022 3:24 PM CDT Narrative [facility] - 03/11/2022 2:35 PM CDT FASTING:NO FASTING: NO us Eliana Quevedo MD LAB BLOOD ORDERABLE S Final Result [facility] [address] [place] [address] documented in this encounter Visit Diagnoses Diagnosis Crohn's disease of both small and large intestine with intestinal obstruction (HCC)- Primary documented in this encounter Care Teams Program Director Cable Television Relationship Specialty Start Date End Date Lanre Parekh DO PCP - General Family Medicine 01/23/19 documented as of this encounter
--- OUTSIDE RECORDS SUMMARY | 2024-07-09 05:24 | XMS_ITS | Encounter Summary ---
Author Organization [facility] Address [address] [place] [address] Phone Care Team Providers Care Boat Outboard Engine Mechanic Name Role Phone Lanre Parekh Primary Care Provide r Encounter Details Date Type Department Care Team (Late st Contact Info) Description 09/16/2019 Documentation [facility] Neuro Sleep [address] [place] [address] 6th [address] [place] [address] Lexi Zuñiga CMA Social History Tobacco Use Types Packs/Day Years Used Date Smoking Tobacco: Never Smokeless Tobacco: Never Alcohol Use Standard Drinks/Week Comments Yes 0 (1 standard drink = 0.6 oz pur e alcohol) wine-rarely Sex and Gender Information Value Date Recorded Sex Assigned at Not on file 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 No / Unsure 09/12/2019 9:18 AM CDT documented as of this encounter Progress Notes * Lexi Zuñiga CMA - 09/16/2019 11:36 AM CDT Received order from ragini dawson, order sent via [employer] to [facility]. documented in this encounter Plan of Treatment Not on file documented as of this encounter Visit Diagnoses Not on filedocumented in this encounter Care Teams Boat Outboard Engine Mechanic Relationship Specialty Start Date End Date Lanre Parekh DO PCP - General Family Medicine 01/23/19 documented as of this encounter
--- OUTSIDE RECORDS SUMMARY | 2024-07-09 05:24 | XMS_ITS | Encounter Summary ---
Author Organization [facility] Address [address] [place] [address] Phone Care Team Providers Care Linux Network Administrator Name Role Phone Lanre Parekh DO Primary Care Provide r Encounter Details Date Type Department Care Team (Late st Contact Info) Description 09/20/2020 Documentation [facility] Neuro Sleep [address] [place] [address] 6th [address] [place] [address] Lexi Zuñiga CMA Social History Tobacco Use Types Packs/Day Years Used Date Smoking Tobacco: Never Smokeless Tobacco: Never Alcohol Use Standard Drinks/Week Comments Yes 0 (1 standard drink = 0.6 oz pur e alcohol) wine-rarely Sex and Gender Information Value Date Recorded Sex Assigned at Not on file Legal 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 documented in this encounter Plan of Treatment Not on file documented as of this encounter Visit Diagnoses Not on filedocumented in this encounter Care Teams Linux Network Administrator Relationship Specialty Start Date End Date Lanre Parekh DO PCP - General Family Medicine 01/23/19 documented as of this encounter
--- OUTSIDE RECORDS SUMMARY | 2024-07-09 05:24 | XMS_ITS | Encounter Summary ---
Author Organization [facility] Healthcare Address [address] [place] [address] Care Team Providers Care R D Manager Name Role Phone Lanre Parekh Primary Care Provide r Encounter Details Date Type Department Care Team (Late st Contact Info) Description 10/01/2020 6:28 AM CDT - 10/01/2020 8:51 AM CDT Hospital Encounter [facility] [id number] [place] [address] Eliana Quevedo MD [address] [facility] [address] [place] [address] Crohn's disease of both small and large intestine without complication (CMS/HCC) (Primary Dx); History of high risk medication treatment Discharge Disposition: Discharge to home or self care Social History Tobacco Use Types Packs/Day Years Used Date Smoking Tobacco: Never Smokeless Tobacco: Never Alcohol Use Standard Drinks/Week Comments Yes 0 (1 standard drink = 0.6 oz pur e alcohol) wine-rarely AUDIT-C Answer Date Recorded Q1: How often do you have a drink containing alc ohol? 2-4 times a month 10/01/2020 Average Number of Drinks Not on file 021 Frequency of Binge Drinking Not on file 08/2020 Sex and Gender Information Value Date Recorded Sex Assigned at Not on file Legal Sex Male 11:11 PM [employer] Gender Identity Not on file Sexual Orientation Not on file documented as of this encounter Last Filed Vital Signs Vital Sign Reading Time Taken Comments Blood Pressure 114/63 10/01/2020 8:05 AM CDT Pulse 77 10/01/2020 8:05 AM CDT Temperature 36.3 ??C (97.3 ??F) 10/01/2020 8:05 AM CD T Respiratory Rate 19 10/01/2020 8:05 AM CDT Oxygen Saturation 97% 10/01/2020 8:05 AM CDT Inhaled Oxygen Concentration - - Weight 83.9 kg (185 lb) 10/01/2020 6:40 AM CDT Height 172.7 cm (5' 8 ) 10/01/2020 6:40 AM CDT Body Mass Index 28.13 10/01/2020 6:40 AM CDT documented in this encounter Discharge Diagnoses Diagnosis Crohn's disease of large intestine without complications (HCC) - CROHN'S DISEASE OF LARGE INTESTINE WITHOUT COMPLICATIONS Gastro-esophageal reflux disease without esophagitis - GASTRO-ESOPHAGEAL REFLUX DISEASE WITHOUT ESOPHAGITIS Obstructive sleep apnea (adult) (pediatric) - OBSTRUCTIVE SLEEP APNEA (ADULT) (PEDIATRIC) Allergy status to other antibiotic agents - ALLERGY STATUS TO OTHER ANTIBIOTIC AGENTS documented in this encounter Discharge Instructions * Discharge Instructions* Kyle Jacobo RN - 10/01/2020 8:00 AM CDT Images from the original note were not included. Colonoscopy WHAT YOU NEED TO KNOW: A colonoscopy is a procedure to examine the inside of your colon (intestine) with a scope. Polyps or tissue growths may have been removed during your colonoscopy. It is normal to feel bloated and to have some abdominal discomfort. You should be passing gas. If you have hemorrhoids or you had polypsremoved, you may have a small amount of bleeding. DISCHARGE INSTRUCTIONS: Seek care immediately if: ?? You have a large amount of bright red blood in your bowel movements. ?? Your abdomen is hard and firm and you have severe pain. ?? You have sudden trouble breathing. Contact your healthcare provider if: ?? You develop a rash or hives. ?? You have a fever within 24 hours of your procedure. . ?? You have not had a bowel movement for 3 days after your procedure. ?? You have questions or concerns about your condition or care. Activity: ?? Do not lift, strain, or run for 3 days after your procedure. ?? Rest after your procedure. You have been given medicine to relax you. Do not drive or make important decisions until the day after your procedure. Return to your normal activity as directed. ?? Relieve gas and discomfort from bloating by lying on your right side with a heating pad on your abdomen. You may need to take short walks to help the gas move out. Eat small meals until bloating is relieved. If you had polyps removed: For 7 days after your procedure: ?? Do not take aspirin. ?? Do not go on long car rides. Follow up with your healthcare provider as directed: Write down your questions so you remember to ask them during your visits. ?? 2016 [employer]. Information is for End User's use only and may not be sold, redistributed or otherwise used for commercial purposes. All illustrations and images included in CareNotes?? are the copyrighted property of [employer] or [employer]. The above information is an educational program assistant only. It is not intended as medical advice for individual conditions or treatments. Talk to your doctor, nurse or pharmacist before following any medical regimen to see if it is safe and effective for you. documented in this encounter Medications at Time of Discharge L.acid/L.casei/B. bif/B.raf/FOS (PROBIOTIC BLEND ORAL)Indications: gut health Take 1 tablet by mouth every morning multivitamin capsuleIndication s:Vitamin Deficiency Prevention Take 1 capsule by mouth every morning turmeric, bulk, 100 % powderIndications :supplement Take 1,500 mg by mouth every morning adalimumab (Humira,CF, Pen) 40 mg/0.4 mL pen injector kitIndications:PA approved through [facility] for Humira #[id number] starting 03/12/2020 through 04/11/2021 (2 per 28 days) Inject 0.4 mL (40 mg total) under the skin every 14 (fourteen) days Safety labs required every 3 months for Med refills, due 10/2020 2 each 2 08/23/2020 1 allopurinoL (ZYLOPRIM) 100 mg tabletIndications :Crohn's disease of both small and large intestine with intestinal obstruction (HCC) Take 1 tablet (100 mg total) by mouth daily 90 tablet 08/23/2020 1 balsalazide (COLAZAL) 750 mg capsuleIndication s:Ulcerative Colitis Take 3 capsules three times daily. 270 capsule 11 09/13/2020 3 colestipoL (COLESTID) 1 gram tabletIndications :Diarrhea, unspecified type Take 1 tab PO 4 time daily ( with meals and at bedtime) 120 tablet 11 08/04/2019 1 docosahexaenoic acid-epa 120-180 mg capsule 3 folic acid (FOLVITE) 1 mg tabletIndications :Crohn's disease of both small and large intestine with intestinal obstruction (HCC) Take 1 tablet (1 mg total) by mouth daily 90 tablet 3 05/24/2020 1 mercaptopurine (PURINETHOL) 50 mg tabletIndications :Crohn's Disease Take 1,5 tabs PO daily -Safety labs required every 3 months for Med refills, due 10/2020 132 tablet 09/20/2020 1 documented as of this encounter Discharge Disposition Disposition Code Departure Means Destination Discharge to home or self care documented in this encounter H&P Notes * Eliana Quevedo MD - 09/30/2020 4:33 PM CDT Pre Endoscopy History and Physical Nic Teran is a 29 y.o. male who is here for Procedure(s): COLONOSCOPY The indication(s) for the procedure(s): ibd. Past Medical History: Diagnosis Date ??? Allergic rhinitis ??? Anemia ??? Crohn's disease (CMS/HCC) 2004 ??? GERD (gastroesophageal reflux disease) ??? Iritis ??? JALYN on CPAP Past Surgical History: Procedure Laterality Date ??? OTHER SURGICAL HISTORY 12/2017 ileocecal resection ??? VASECTOMY 2017 Social History Tobacco Use ??? Smoking status: Never Smoker ??? Smokeless tobacco: Never Used Substance Use Topics ??? Alcohol use: Yes Comment: wine-rarely Family History Problem Relation Age of Onset ??? Hypertension Mother Family history of hypertension - (Added by TW Conv) ??? Kidney failure Mother Family history of renal failure - (Added by TW Conv) ??? Hypertension Father Family history of hypertension - (Added by TW Conv) ??? Ulcerative colitis Mother's Sister Allergies Allergen Reactions ??? Flagyl [Metronidazole] Other (See comments) Neuropathy Prior to Admission medications Medication Sig Start Date End Date Taking? Authorizing Provider adalimumab (Humira,CF, Pen) 40 mg/0.4 mL pen injector kit Inject 0.4 mL (40 mg total) under the skin every 14 (fourteen) days Safety labs required every 3 months for Med refills, due 10/202008/23/20 Eliana Quevedo MD allopurinoL (ZYLOPRIM) 100 mg tablet Take 1 tablet (100 mg total) by mouth daily 08/23/20 08/23/21 Eliana Quevedo MD balsalazide (COLAZAL) 750 mg capsule Take 3 capsules three times daily. 09/13/20 Eliana Quevedo MD colestipoL (COLESTID) 1 gram tablet Take 1 tab PO 4 time daily ( with meals and at bedtime) 08/04/19 Eliana Quevedo MD docosahexaenoic acid-epa 120-180 mg capsule Ryan Shook MD folic acid (FOLVITE) 1 mg tablet Take 1 tablet (1 mg total) by mouth daily 05/24/20 Eliana Quevedo MD L.acid/L.casei/B.bif/B.raf/FOS (PROBIOTIC BLEND ORAL) Take 1 tablet by mouth daily Ryan Shook MD mercaptopurine (PURINETHOL) 50 mg tablet Take 1,5 tabs PO daily -Safety labs required every 3 months for Med refills, due 10/202009/20/20 Eliana Quevedo MD multivitamin capsule Take 1 capsule by mouth every morning. Ryan Shook MD turmeric, bulk, 100 % powder Take 1,500 mg by mouth Ryan Shook MD Review of Systems A pertinent, focused review of systems was completed and negative, except as noted above. OBJECTIVE: Vitals: There were no vitals filed for this visit. Physical Exam: Airway: No significant abnormality. Cardiac: No significant abnormality. Pulmonary: No significant abnormality. Neurological: No significant abnormality. Gastrointestinal: No significant abnormality. ASA Score: per Anesthesia Sedation/Anesthesia Plan: per Anesthesia The risks and complications of the procedure have been explained to the patient. Informed consent was signed. Impression and plan: Will proceed with the planned procedure for the reasons stated above. documented in this encounter Procedure Notes * Eliana Quevedo MD - 10/01/2020 7:23 AM CDTAssociated Order(s): COLONOSCOPY ENDOSCOPY LAB Patient Name: Nic Teran Procedure Date: 10/01/2020 7:23 AM Date of : 1990 Admit Type: Outpatient Age: 29 Gender: Male Attending MD: Eliana Quevedo M.D. Room: [facility] ENDOSCOPY ROOM 01 Note Status: Finalized Procedure: Colonoscopy Indications: High risk colon cancer surveillance: Crohn's colitis of 8 (or more) years duration with one-third (or more) of the colon involved, on Humira Q14d (d7/14) and 6MP/allo Providers: Eliana Quevedo M.D. Referring MD: Lanre Parekh D.O. Medicines: Monitored Anesthesia Care Complications: No immediate complications. Estimated Blood Loss: Estimated blood loss: none. Procedure: Pre-Anesthesia Assessment: - The risks and benefits of the procedure and the sedation options and risks were discussed with the patient. All questions were answered and informed consent was obtained. - Pre-procedure physical examination revealed no contraindications to sedation. The benefits, risks and alternatives of the procedure and sedation were discussed and informed consent was obtained. All questions were answered. Please refer to the signed informed consent document in the medical record. The scope was passed under direct vision. The [id number] was introduced through the anus and advanced to 20 cm into the ileum. The colonoscopy was performed without difficulty. The patient tolerated the procedure well. The quality of the bowel preparation was excellent. Findings: The perianal and digital rectal examinations were normal. Pertinent negatives include no palpable rectal lesions. Normal mucosa was found in the entire colon. Contrast chromoscopy with methylene blue was performed using irrigation chromoendoscopy technique. There was evidence of a prior end-to-side ileo-colonic anastomosis in the proximal transverse colon. This was patent and was characterized by erosion. The anastomosis was traversed. The terminal ileum contained a few localized non-bleeding erosions. No additional abnormalities were found on retroflexion. Impression: - Normal mucosa in the entire examined colon. Chromoscopy performed. - Patent end-to-side ileo-colonic anastomosis, characterized by erosion. - A few erosions in the terminal ileum. - No specimens collected. Recommendation: Persistent mild disease in the distal TI (a few apthous ulcers in the distal 10cm ), unchanged from previous exam and stable check ADA trough (metabolites appropriate) - Return to GI clinic as previously scheduled. Attending Participation: I personally performed the entire procedure. Electronically signed by Eliana Quevedo M.D. Eliana Quevedo M.D. 10/01/2020 7:54:01 AM Number of Addenda: 0 Note Initiated On: 10/01/2020 7:23 AM documented in this encounter Miscellaneous Notes * Pre-Procedure Instructions - Glenys Monson RN - 09/29/2020 2:02 PM CDT When you arrive, come in the front door, wearing a mask and get screened for COVID-19 inside the front door, and they will direct you as to where to register. Dress comfortable, leave all valuables at home, all you will need is your insurance card, ID, and acurrent list of medications that you are taking. Take your prescribed bowel prep according to instructions, following a clear liquid diet the day before exam and laxatives the afternoon/evening prior to exam as well as a dose 4 hours prior to arrival to hospital. Patient also instructed to have a team driver to take him home. documented in this encounter Plan of Treatment Not on file documented as of this encounter Procedures Procedure Name Priority Date/Time Associated Diagnosis Comments COLONOSCOPY 10/01/2020 7:23 AM CDT COLONOSCOPY 10/01/2020 7:22 AM CDT Crohn's disease of both small and large intestine without complication (CMS/HCC) T-SPOT.TB Routine 10/01/2020 6:52 AM CDT Crohn's disease of both small and large intestine without complication (CMS/HCC) History of high risk medication treatment DIFFERENTIAL AUTO Routine 10/01/2020 6:5 2 AM CDT Crohn's disease of both small and large intestine without complication (CMS/HCC) History of high risk medication treatment CBC WITH AUTO DIFFERENTIAL Routine 10/01/2020 6:52 AM CDT Crohn's disease of both small and large intestine without complication (CMS/HCC) History of high risk medication treatment HEPATIC FUNCTION PANEL Routine 10/01/2020 6:52 AM CDT Crohn's disease of both small and large intestine without complication (CMS/HCC) History of high risk medication treatment documented in this encounter Results * COLONOSCOPY (10/01/2020 7:23 AM CDT) Anatomical Region Laterality Modality Other Narrative Procedure Note Eliana Quevedo MD - 10/01/2020 7:23 AM CDT ENDOSCOPY LAB Patient Name: Nic Teran Procedure Date: 10/01/2020 7:23 AM Date of : 1990 Admit Type: Outpatient Age: 29 Gender: Male Attending MD: Eliana Quevedo M.D. Room: [facility] ENDOSCOPY ROOM 01 Note Status: Finalized Procedure: Colonoscopy Indications: High risk colon cancer surveillance: Crohn'scolitis of 8 (or more) years duration with one-third (ormore) of the colon involved, on Humira Q14d (d7/14) and 6MP/allo Providers: Eliana Quevedo M.D. Referring MD: Lanre Parekh D.O. Medicines: Monitored Anesthesia Care Complications: No immediate complications. Estimated Blood Loss: Estimated blood loss: none. Procedure: Pre-Anesthesia Assessment: - The risks and benefits of the procedure and the sedation options and risks were discussed with the patient. All questions were answered and informed consent was obtained. - Pre-procedure physical examination revealed no contraindications to sedation. The benefits, risks and alternatives of theprocedure and sedation were discussed and informed consentwas obtained. All questions were answered. Please referto the signed informed consent document in the medical record. The scope was passed under direct vision.The [id number] was introduced through the anusand advanced to 20 cm into the ileum. The colonoscopywas performed without difficulty. The patient tolerated the procedure well. The quality of the bowel preparation was excellent. Findings: The perianal and digital rectal examinations were normal. Pertinent negatives include no palpable rectal lesions. Normal mucosa was found in the entire colon. Contrast chromoscopywith methylene blue was performed using irrigation chromoendoscopytechnique. There was evidence of a prior end-to-side ileo-colonic anastomosis in the proximal transverse colon. This was patent and was characterizedby erosion. The anastomosis was traversed. The terminal ileum contained a few localized non-bleeding erosions. No additional abnormalities were found on retroflexion. Impression: - Normal mucosa in the entire examined colon. Chromoscopy performed. - Patent end-to-side ileo-colonic anastomosis, characterized by erosion. - A few erosions in the terminal ileum. - No specimens collected. Recommendation: Persistent mild disease in the distal TI (a few apthous ulcers in the distal 10cm ), unchanged from previous exam and stable check ADA trough (metabolites appropriate) - Return to GI clinic as previously scheduled. Attending Participation: I personally performed the entire procedure. Electronically signed by Eliana Quevedo M.D. Eliana Quevedo M.D. 10/01/2020 7:54:01 AM Number of Addenda: 0 Note Initiated On: 10/01/2020 7:23 AM us Eliana Quevedo MD ENDOSCOPY PROCEDURE S Final Result * Differential, auto (10/01/2020 6:52 AM CDT) Neutrophil abs 3.0 1.7 - 6.5 K/cumm [facility] Imm gran abs 0.0 0.0 - 0.1 K/cumm [facility] Lymphocyte abs 1.7 0.8 - 3.3 K/cumm [facility] Monocyte abs 0.4 0.2 - 0.8 K/cumm [facility] Eosinophil abs 0.1 0.0 - 0.5 K/cumm [facility] Basophil abs 0.0 0.0 - 0.1 K/cumm [facility] Neutrophil pct 57.2 % [facility] Comment: Interpretive Data Percent cell count reference ranges are not reported, since discordance with absolute values may lead to misinterpretation of CBC data. Current Interpretive Data was last revised on 2017. Imm gran pct 0.6 % [facility] Comment: Interpretive Data Percent cell count reference ranges are not reported, since discordance with absolute values may lead to misinterpretation of CBC data. Current Interpretive Data was last revised on 2017. Lymphocyte pct 32.5 % [facility] Comment: Interpretive Data Percent cell count reference ranges are not reported, since discordance with absolute values may lead to misinterpretation of CBC data. Current Interpretive Data was last revised on 2017. Monocyte pct 7.9 % [facility] Comment: Interpretive Data Percent cell count reference ranges are not reported, since discordance with absolute values may lead to misinterpretation of CBC data. Current Interpretive Data was last revised on 2017. Eosinophil pct 1.2 % [facility] Comment: Interpretive Data Percent cell count reference ranges are not reported, since discordance with absolute values may lead to misinterpretation of CBC data. Current Interpretive Data was last revised on 2017. Basophil pct 0.6 % [facility] Comment: Interpretive Data Percent cell count reference ranges are not reported, since discordance with absolute values may lead to misinterpretation of CBC data. Current Interpretive Data was last revised on 2017. Blood specimen (specimen) 10/01/2020 6:52 AM CDT 10/01/2020 7:06 AM CDT Eliana Quevedo MD LAB BLOOD ORDERABLE S Final Result [facility] [address] [facility] [place] [address] * T-SPOT.TB (10/01/2020 6:52 AM CDT) [facility] T-SPOT.TB Negative SeeBelow [facility] CELESTE Comment: Normal Value: Negative A negative test [...] test. T-SPOT.TB Panel A Spot Count 0 RUBINANER LUCASW T-SPOT.TB Panel B Spot Count 0 [facility] T-SPOT.TB Negative Control Passed [facility] T-SPOT.TB Positive Control Passed [facility] Comment: Test Performed at: [employer] [address] [place], [place] ??[address] ? NEREIDA FRIED MD,PHD Blood specimen (specimen) 10/01/2020 6:52 AM CDT 10/01/2020 7:06 AM CDT Eliana Quevedo MD LAB MICROBIOLOGY - GENERAL ORDERABLES Final Result Performing Organization Address City/[facility]/ZIP Co de Phone Number [facility] [phone] [facility] [place] [address] * (ABNORMAL) Hepatic function panel (10/01/2020 6:52 AM CDT) Bilirubin, total 1.0 0.1 - 1.2 mg/dL [facility] Bilirubin, direct <0.2 0.1 - 0.3 mg/dL [facility] Protein, pl 8.9(H) 6.5 - 8.5 g/dL [facility] Albumin 5.1(H) 3.5 - 5.0 g/dL [facility] Alk phos 117 40 - 130 Units/L [facility] ALT 82(H) 7 - 55 Units/L [facility] AST 41 10 - 50 Units/L [facility] Blood specimen (specimen) 10/01/2020 6:52 AM CDT 10/01/2020 7:06 AM CDT us Eliana Quevedo MD LAB BLOOD ORDERABLE S Final Result Performing Organization Address [facility] Co de Phone Number CRU[facility] CELE[facility] [id number] [facility] [place] [address] * (ABNORMAL) CBC with auto differential (10/01/2020 6:52 AM CDT) Pathologist [facility] WBC 5.2 3.8 - 9.9 K/cumm [facility] Hgb 15.3 13.0 - 17.5 g/dL [facility] Hct 45.7 38.9 - 50.3 % [facility] Plt 271 150 - 400 K/cumm [facility] MPV 10.7 9.1 - 12.3 fL [facility] RBC 4.25(L) 4.30 - 5.80 M/cumm [facility] MCV 107.5(H) 81.3 - 96.4 fL [facility] MCH 36.0(H) 27.1 - 33.3 pg [facility] MCHC 33.5 32.3 - 35.7 g/dL [facility] CV 13.8 11.1 - 14.9 % [facility] SD 55.4(H) 35.7 - 48.1 fL [facility] NRBC abs 0.00 0.00 - 0.01 K/cumm [facility] Blood specimen (specimen) 10/01/2020 6:52 AM CDT 10/01/2020 7:06 AM CDT us Eliana Quevedo MD LAB BLOOD ORDERABLE S Final Result [facility] [address] [facility] [place] [address] documented in this encounter Visit Diagnoses Diagnosis Crohn's disease of both small and large intestine without complication (CMS/HCC) (HCC)- Primary History of high risk medication treatment documented in this encounter Administered Medications Inactive Administered Medications - up to 3 most recent administrations Medication Order MAR Action Action Date Dose Rate Site sodium chloride 0.9% flush 0.5-20 mL 0.5-20 mL, intra-catheter, As needed, line care, Starting on Sun10/01/20 at 0640, Pre-Procedure (GI), Flush volume based on line type and size. Flush before and after each use. , Indications: FlushingIndications:Flushing sodium chloride 0.9% infusion 30 mL/hr, intravenous, Continuous, Starting on Sun10/01/20 at 0715 New Bag 10/01/2020 6:59 AM CDT 30 mL/hr 30 mL/hr documented in this encounter Active and Recently Administered Medications Times are shown in CDT. Continuous Medication Order 09/29/2020 09/30/2020 10/01/2020 sodium chloride 0.9% infusion 30 mL/hr, intravenous, Continuous, Starting on Sun10/01/20 at 0715 0659 (New Bag - Prov ider: Clara Upton RN)[phone] (Anesthesia Volume Adjustment - Provider: Gris Denis CRNA) PRN Medication Order 09/29/2020 09/30/2020 10/01/2020 methylene blue (PROVAYBLUE) (0.5%) injection (CANCELED) Administer over 20 Minutes, As needed, Starting on Sun10/01/20 at 0731, Intra-Op 0731 (Given - Provid er: Eliana Quevedo MD) ondansetron (ZOFRAN) injection 4 mg 4 mg, intravenous, Administer over 2 Minutes, Every 30 min PRN, nausea, vomiting, Starting on Sun10/01/20 at 0759, For 2 doses, Recovery (GI), Indications: Nausea and Vomiting sodium chloride 0.9% flush 0.5-20 mL 0.5-20 mL, intra-catheter, As needed, line care, Starting on Sun10/01/20 at 0640, Pre-Procedure (GI), Flush volume based on line type and size. Flush before and after each use. , Indications: Flushing documented in this encounter Orders Medications Ordered That Nilo ht Not Have Been Administered Count Last Ordered Date First Ordered Date methylene blue (PROVAYBLUE) (0.5%) injection 1 10/01/2020 ondansetron (ZOFRAN) injection 4 mg 1 10/01 sodium chloride 0.9% flush 0.5-20 mL 1 08/2020 documented in this encounter Care Teams R D Manager Relationship Specialty Start Date End Date Lanre Parekh DO PCP - General Family Medicine 01/23/19 documented as of this encounter
--- OUTSIDE RECORDS SUMMARY | 2024-07-09 05:24 | XMS_ITS | Encounter Summary ---
Author Organization [facility] Address [address] [place] [address] Phone Care Team Providers Care Alumni Relations Officer Name Role Phone Lanre Parekh DO Primary Care Provide r Encounter Details Date Type Department Care Team (Late st Contact Info) Description 05/24/2020 Orders Only [facility] Gastroenterology [address] [facility] [address] 8th [place] [address] [place] [address] Padma Mendoza, JOSH Social History Tobacco Use Types Packs/Day Years Used Date Smoking Tobacco: Never Smokeless Tobacco: Never Alcohol Use Standard Drinks/Week Comments Yes 0 (1 standard drink = 0.6 oz pur e alcohol) wine-rarely Sex and Gender Information Value Date Recorded Sex Assigned at Not on file 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
--- OUTSIDE RECORDS SUMMARY | 2024-07-09 05:24 | XMS_ITS | Encounter Summary ---
Author Organization [facility] Address [address] [place] [address] Phone Care Team Providers Care Tomahawk Weapon System Operator Name Role Phone Lanre Parekh Primary Care Provide r Encounter Details Date Type Department Care Team (Late st Contact Info) Description 09/13/[address] 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 270 capsule 11 09/13/2020 3 documented in this encounter Plan of Treatment Not on file documented as of this encounter Visit Diagnoses Diagnosis Crohn's disease of both small and large intestine with intestinal obstruction (HCC) documented in this encounter Discontinued Medications Medication Sig Discontinue Reason Start Date End Da te balsalazide (COLAZAL) 750 mg capsuleIndications:Ulce rative Colitis Take 3 capsules three times daily. Reorder 06/10/2019 09/13/2020 documented as of this encounter Care Teams Tomahawk Weapon System Operator Relationship Specialty Start Date End Date Lanre Parekh DO PCP - General Family Medicine 01/23/19 documented as of this encounter
--- OUTSIDE RECORDS SUMMARY | 2024-07-09 05:24 | XMS_ITS | Encounter Summary ---
Author Organization [facility] Address [address] [place] [address] Phone Care Team Providers Care Starch Treating Assistant Name Role Phone Lanre Parekh Primary Care Provide r Encounter Details Date Type Department Care Team (Late st Contact Info) Description 04/07/2021 8:30 AM CDT Office Visit [facility] Gastroenterology [address] 8th [place] [address] [place] [address] Eliana Quevedo MD [address] [place] [address] Crohn's disease of both small and large intestine with intestinal obstruction (HCC) (Primary Dx); High risk medications (not anticoagulants) long-term use; Unknown status of immunity to COVID-19 virus Social History Tobacco Use Types Packs/Day Years [...] on file 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 Gender Identity Not on file Sexual Orientation Not on file documented as of this encounter Last Filed Vital Signs Vital Sign Reading Time Taken Comments Blood Pressure 135/75 04/07/2021 8:24 AM CDT Pulse 78 04/07/2021 8:24 AM CDT Temperature 36.6 ??C (97.8 ??F) 04/07/2021 8:24 AM CD T Respiratory Rate - - Oxygen Saturation - - Inhaled Oxygen Concentration - - Weight 84.8 kg (187 lb) 04/07/2021 8:24 AM CDT Height 172.7 cm (5' 8 ) 04/07/2021 8:24 AM CDT Body Mass Index 28.43 04/07/2021 8:24 AM CDT documented in this encounter Patient Instructions * Patient Instructions* Aisha Harding - 04/07/2021 8:30 AM CDT -Return office visit in 6 months -Flu shot today -Get COVID booster -Check COVID spike antibodies through [facility] around end of May/early June (order placed andgiven) documented in this encounter Progress Notes * Lc Hyman MA - 04/07/2021 8:30 AM CDT Patient was given Flucelvax Quadrivalent in office today in the Lt Deltoid patient tolerated well. * Eliana Quevedo MD - 04/07/2021 12:00 AM CDT PATIENT NAME: NIC TERAN : 1990 NELLI: 04/07/2021 Reason for Visit: Follow-up on ileocolonic Crohn's disease, status post initiation of weekly Humira last week. Current Medications: 1. Humira 40 mg subcu weekly. 2. Allopurinol 100 mg daily. 3. Balsalazide 750 mg 2 tablets 3 times a day. 4. Colestipol p.r.n. 5. Folic acid 1 mg a day. 6. Probiotic daily. 7. Mercaptopurine 50 mg tablet daily. 8. Multivitamin daily. 9. Tumeric powder daily. Problem List: 1. Ileocolonic stricturing Crohn's disease diagnosed in 2004 and status post an ileocecectomy in December 2017; the patient most recently underwent a colonoscopy in 2018, while being maintained on Humiraand methotrexate and subsequently while being maintained on Humira with 6-MP this year and both demonstrated really no difference in the mild terminal ileal disease activity; the patient subsequently had Humira levels checked, and it was under 10, and the patient subsequently was increased to weekly dosing with his first weekly dose last week. History of Present Illness: Nic is a tawnya 30-year-old gentleman with a past medical history of stricturing and perforatingileocolonic Crohn's disease, who presents today for follow-up. Most recently, he underwent a colonoscopy in September 2020, which demonstrated stable mild disease activity in his neoterminal ileum. Therereally was no difference between methotrexate in addition Humira and 6-MP in addition to Humira. Wechecked his Humira levels, and in fact, they were low, and most recently, he was started on Humira weekly dosing. Nic otherwise reports that he is doing well and has no real complaints. He was vaccinated for COVID in September 2020, but unfortunately, by February 19, he developed an active COVID infection. This wasless than 4 months after he had been vaccinated. The patient never had an M-spike protein done. Thepatient otherwise has not received the flu shot either. Physical Examination: Vital Signs: His blood pressure is 135/75, pulse 78, weight 187 pounds. General: He is a well-appearing white male, in no apparent distress. Abdomen: Soft, nontender, nondistended, with good bowel sounds. Assessment: Nic is a tawnya 30-year-old gentleman with a past medical history of ileocolonic stricturing andperforating Crohn's disease, who presents today for follow-up. In regards to the patient's disease activity, I am hoping that he does do well on the weekly dosingof Humira. I have told him that we could consider stopping the thiopurines if he in fact does go into remission, as that would indicate that he had a much better response to Humira weekly dosing. Hisdisease activity really was no different on azathioprine than it was on methotrexate. The patient did get vaccinated for COVID in September 2020, and unfortunately, he developed an active COVID infection in January. I am concerned that he did not have a response to the vaccine or alternatively the efficacy of that vaccine was not long enough for him. I have told him that since he does still have antibodies to protect him from that January infection, I recommended that he get a booster shot at the end of this month. We will plan on checking his M-spike protein at the end in May orearly June. In addition, today he will get the flu shot. I have told him to continue wearing a face mask, as I am not certain whether or not he has had the appropriate protection with the COVID vaccine. The patient otherwise was given ample opportunity to ask any questions, and he will follow up in 6 months. My total encounter time on 04/07/2021 was 30minutes which was spent in the activities documented above. This includes time spent prior to the visit and after the visit in direct care of the patient. This time does not include time spent in any separately reportable services. ELECTRONICALLY SIGNED - 04/07/2021 09:54 AM Eliana Quevedo MD, MPH plant operations worker Division of Gastroenterology AG/jeni documented in this encounter Plan of Treatment Scheduled Orders Name Type Priority Associated Diagnoses Orde r Schedule SARS- WhV-7-[id number] (IgG) Al Semi Quantitative ([facility] TEST CODE: 25829) - Miscellaneous Test Lab Routine Crohn's disease of both small and large intestine with intestinal obstruction (CMS/HCC) (HCC) High risk medications (not anticoagulants) long-term use Unknown status of immunity to COVID-19 virus Expected: 05/30/2021, Expires: 04/07/2022 documented as of this encounter Visit Diagnoses Diagnosis Crohn's disease of both small and large intestine with intestinal obstruction (HCC)- Primary High risk medications (not anticoagulants) long-term use Encounter for long-term (current) use of other medications Unknown status of immunity to COVID-19 virus documented in this encounter Orders Immunization/Injection Count Last Ordered Date First Ordered Date FLU VACCINE MDCK QUAD PF 2Y+ IM - FLUCELVAX 1 04/07/2021 documented in this encounter Care Teams Starch Treating Assistant Relationship Specialty Start Date End Date Laner Parekh DO PCP - General Family Medicine 01/23/19 documented as of this encounter
--- OUTSIDE RECORDS SUMMARY | 2024-07-09 05:24 | XMS_ITS | Encounter Summary ---
Author Organization [facility] Address [address] [place] [address] Phone Care Team Providers Care Television News Producer Name Role Phone Lanre Parekh Primary Care Provide r Reason for Visit * Reason Onset Date Comments F/u re: humira level & safety labs due Encounter Details Date Type Department Care Team (Late st Contact Info) Description 03/09/2021 Telephone [facility] Gastroenterology [address] [facility] Advanced Medicine 8th Floor [address] [address] Mame Landrum LPN F/u re: humira level & safety labs due Social History Tobacco Use Types Packs/Day Years [...] on file 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 Follow up call placed to pt, discussed recommendation from MD to change Humira to weekly dosing. Pt is aware that new script has been sent to his pharmacy and that this may require a PA. If so, our office will work on obtaining PA approval. Pt is aware that he should continue current dosing until he has received notification of approval either from our office or his specialty pharmacy. Also informed pt that I have placed new standing orders at [facility] for his safety labs, pt is aware that he is due for repeat labs. documented in this encounter Plan of Treatment Not on file documented as of this encounter Visit Diagnoses Not on filedocumented in this encounter Care Teams Television News Producer Relationship Specialty Start Date End Date Lanre Parekh DO PCP - General Family Medicine 01/23/19 documented as of this encounter
--- OUTSIDE RECORDS SUMMARY | 2024-07-09 05:24 | XMS_ITS | Encounter Summary ---
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 Gender Identity Not on file Sexual Orientation Not on file documented as of this encounter Ordered Prescriptions Prescription Sig Dispense Quantity Refills Last Filled Start Date End Date folic acid (FOLVITE) 1 mg tabletIndications: Crohn's disease of both small and large intestine with intestinal obstruction (HCC) Take 1 tablet (1 mg total) by mouth daily 90 tablet 3 02/27/2022 10/26/2022 documented in this encounter Plan of Treatment Not on file documented as of this encounter Visit Diagnoses Diagnosis Crohn's disease of both small and large intestine with intestinal obstruction (HCC) documented in this encounter Discontinued Medications Medication Sig Discontinue Reason Start Date End Da te folic acid (FOLVITE) 1 mg tabletIndications:Crohn's disease of both small and large intestine with intestinal obstruction (HCC) Take 1 tablet (1 mg total) by mouth daily Reorder 10/11/2020 02/27/2022 documented as of this encounter Care Teams Custom Feed Mill Operator Relationship Specialty Start Date End Date Lanre Parekh DO PCP - General Family Medicine 01/23/19 documented as of this encounter
--- OUTSIDE RECORDS SUMMARY | 2024-07-09 05:24 | XMS_ITS | Encounter Summary ---
Author Organization [facility] Address [address] [place] [address] Care Team Providers Care Utility Arborist Name Role Phone Lanre Parekh DO Primary Care Provide r Encounter Details Date Type Department Care Team (Late st Contact Info) Description 08/19/2020 11:00 AM WEEKEND ANCHOR Lab [facility] Advanced Medicine [facility] Advanced Medicine ([facility]) [address] [place] [phone] Eliana Quevedo MD [address] [place] [address] Crohn's disease of both small and large intestine without complication (CMS/HCC); High risk medications (not anticoagulants) long-term use Discharge Disposition: Discharge to home or self care Social History Tobacco Use Types Packs/Day Years Used Date Smoking Tobacco: Never Smokeless Tobacco: Never Alcohol Use Standard Drinks/Week Comments Yes 0 (1 standard drink = 0.6 oz pur e alcohol) wine-rarely Sex and Gender Information Value Date Recorded Sex Assigned at Not on file Legal Sex Male 11:11 PM WEEKEND ANCHOR Gender Identity Not on file Sexual Orientation Not on file documented as of this encounter Discharge Disposition Disposition Code Departure Means Destination Discharge to home or self care documented in this encounter Miscellaneous Notes * Result Encounter Note - Eliana Quevedo MD - 08/19/2020 2:13 PM CST CBC and LFTs OK END ANCHOR documented in this encounter Plan of Treatment Not on file documented as of this encounter Procedures Procedure Name Priority Date/Time Associated Diagnosis Comments T-SPOT.TB Routine 08/19/2020 10:45 AM WEEKEND ANCHOR Crohn's disease of both small and large intestine without complication (CMS/HCC) High risk medications (not anticoagulants) long-term use DIFFERENTIAL AUTO Routine 08/19/2020 10: 45 AM WEEKEND ANCHOR Crohn's disease of both small and large intestine without complication (CMS/HCC) High risk medications (not anticoagulants) long-term use CBC WITH AUTO DIFFERENTIAL Routine 08/19/2020 10:45 AM WEEKEND ANCHOR Crohn's disease of both small and large intestine without complication (CMS/HCC) High risk medications (not anticoagulants) long-term use HEPATIC FUNCTION PANEL Routine 08/19/2020 10:45 AM WEEKEND ANCHOR Crohn's disease of both small and large intestine without complication (CMS/HCC) High risk medications (not anticoagulants) long-term use documented in this encounter Results * Differential, auto (08/19/2020 10:45 AM WEEKEND ANCHOR) Pathologist [facility] Neutrophil abs 3.1 1.7 - 6.5 K/cumm [facility] Imm gran abs 0.0 0.0 - 0.1 K/cumm [facility] Lymphocyte abs 1.8 0.8 - 3.3 K/cumm [facility] Monocyte abs 0.3 0.2 - 0.8 K/cumm [facility] Eosinophil abs 0.1 0.0 - 0.5 K/cumm [facility] Basophil abs 0.0 0.0 - 0.1 K/cumm [facility] Neutrophil pct 58.0 % [facility] Comment: Interpretive Data Percent cell count reference ranges are not reported, since discordance with absolute values may lead to misinterpretation of CBC data. Current Interpretive Data was last revised on 2017. Imm gran pct 0.4 % [facility] Comment: Interpretive Data Percent cell count reference ranges are not reported, since discordance with absolute values may lead to misinterpretation of CBC data. Current Interpretive Data was last revised on 2017. Lymphocyte pct 35.0 % [facility] Comment: Interpretive Data Percent cell count reference ranges are not reported, since discordance with absolute values may lead to misinterpretation of CBC data. Current Interpretive Data was last revised on 2017. Monocyte pct 5.0 % [facility] Comment: Interpretive Data Percent cell count reference ranges are not reported, since discordance with absolute values may lead to misinterpretation of CBC data. Current Interpretive Data was last revised on 2017. Eosinophil pct 1.0 % [facility] Comment: Interpretive Data Percent cell count reference ranges are not reported, since discordance with absolute values may lead to misinterpretation of CBC data. Current Interpretive Data was last revised on 2017. Basophil pct 0.6 % [facility] Comment: Interpretive Data Percent cell count reference ranges are not reported, since discordance with absolute values may lead to misinterpretation of CBC data. Current Interpretive Data was last revised on 2017. Blood specimen (specimen) 08/19/2020 10:45 AM WEEKEND ANCHOR 08/19/2020 10:55 AM WEEKEND ANCHOR Eliana Quevedo MD LAB BLOOD ORDERABLE S Final Result [facility] [place] [address] * T-SPOT.TB (08/19/2020 10:45 AM WEEKEND ANCHOR) [facility] T-SPOT.TB Negative SeeBel [facility] Comment: Normal Value: Negative A negative test [...] test. T-SPOT.TB Panel A Spot Count 0 [facility] T-SPOT.TB Panel B Spot Count 0 [facility] T-SPOT.TB Negative Control Passed [facility] T-SPOT.TB Positive Control Passed [facility] Comment: Test Performed at: [facility] [place], [place] ??[address] ? NEREIDA FRIED MD,PHD Blood specimen (specimen) 08/19/2020 10:45 AM WEEKEND ANCHOR 08/19/2020 4:49 PM WEEKEND ANCHOR Eliana Quevedo MD LAB MICROBIOLOGY - GENERAL ORDERABLES Final Result [facility] [place] [address] * (ABNORMAL) CBC with auto differential (08/19/2020 10:45 AM WEEKEND ANCHOR) Pathologist [facility] WBC 5.3 3.8 - 9.9 K/cumm [facility] Hgb 14.4 13.0 - 17.5 g/dL [facility] Hct 40.7 38.9 - 50.3 % [facility] Plt 217 150 - 400 K/cumm [facility] MPV 10.5 9.1 - 12.3 fL [facility] RBC 3.95(L) 4.30 - 5.80 M/cumm [facility] MCV 103.0(H) 81.3 - 96.4 fL [facility] MCH 36.5(H) 27.1 - 33.3 pg [facility] MCHC 35.4 32.3 - 35.7 g/dL [facility] RDW CV 13.8 11.1 - 14.9 % [facility] RDW SD 52.7(H) 35.7 - 48.1 fL [facility] NRBC abs 0.00 0.00 - 0.01 K/cumm [facility] Blood specimen (specimen) 08/19/2020 10:45 AM WEEKEND ANCHOR 08/19/2020 10:55 AM WEEKEND ANCHOR Eliana Quevedo MD LAB BLOOD ORDERABLE S Final Result Performing Organization Address City/[facility] Co de Phone Number [facility] [place] [email or web address] [place] [address] * (ABNORMAL) Hepatic function panel (08/19/2020 10:45 AM WEEKEND ANCHOR) Bilirubin, total 0.4 0.1 - 1.2 mg/dL [facility] Bilirubin, direct <0.2 0.1 - 0.3 mg/dL [facility] Protein, pl 8.6(H) 6.5 - 8.5 g/dL [facility] Albumin 5.0 3.5 - 5.0 g/dL [facility] Alk phos 85 40 - 130 Units/L [facility] ALT 58(H) 7 - 55 Units/L [facility] AST 36 10 - 50 Units/L [facility] Blood specimen (specimen) 08/19/2020 10:45 AM WEEKEND ANCHOR 08/19/2020 10:55 AM WEEKEND ANCHOR Eliana Quevedo MD LAB BLOOD ORDERABLE S Final Result Performing Organization Address [facility] Co de Phone Number [facility] [place] [email or web address] [place] [address] documented in this encounter Visit Diagnoses Diagnosis Crohn's disease of both small and large intestine without complication (CMS/HCC) (HCC) High risk medications (not anticoagulants) long-term use Encounter for long-term (current) use of other medications documented in this encounter Care Teams Utility Arborist Relationship Specialty Start Date End Date Lanre Parekh DO PCP - General Family Medicine 01/23/19 documented as of this encounter
--- OUTSIDE RECORDS SUMMARY | 2024-07-09 05:24 | XMS_ITS | Encounter Summary ---
Author Organization [facility] Address [address] [place] [address] Phone Care Team Providers Care Offset Press Operator Helper Name Role Phone Lanre Parekh DO Primary Care Provide r Encounter Details Date Type Department Care Team (Late st Contact Info) Description 02/12/2020 Orders Only [facility] Gastroenterology [address] [facility] Medicine 8th [place] [address] [place] [phone] Amena Gao RMA Social History Tobacco Use Types Packs/Day Years Used Date Smoking Tobacco: Never Smokeless Tobacco: Never Alcohol Use Standard Drinks/Week Comments Yes 0 (1 standard drink = 0.6 oz pur e alcohol) wine-rarely Sex and Gender Information Value Date Recorded Sex Assigned at Not on file 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 turmeric, bulk, 100 % powderIndications :supplement Take 1,500 mg by mouth every morning docosahexaenoic acid-epa 120-180 mg capsule 11/07/2022 added in this encounter Care Teams Offset Press Operator Helper Relationship Specialty Start Date End Date Lanre Parekh DO PCP - General Family Medicine 01/23/19 documented as of this encounter
--- OUTSIDE RECORDS SUMMARY | 2024-07-09 05:24 | XMS_ITS | Encounter Summary ---
Author Organization [facility] Address [address] [place] [address] Care Team Providers Care Coater Carbon Paper Name Role Phone Lanre Parekh Primary Care Provide r Reason for Visit * Auth/Cert Specialty Diagnoses / Procedures Referred By Contac t Referred To Contact Diagnoses Crohn's disease of both small and large intestine without complication (CMS/HCC) (HCC) Crohn's disease of both small and large intestine without complication (CMS/HCC) (HCC) [K50.80] Procedures IA COLONOSCOPY FLX DX W/COLLJ SPEC WHEN PFRMD COLONOSCOPY Referral ID Status Reason Start Date Expiration Date Visits Re quested Visits Authorized [id number] 1 1 Encounter Details Date Type Department Care Team (Late st Contact Info) Description 01/23/2022 10:30 AM CDT - 01/23/2022 11:00 AM CDT Surgery [facility] Endoscopy [address] [place] [address] Eliana Quevedo MD [address] [facility] [address] [place] [address] COLONOSCOPY Surgery Details Date/Time Status Location OR Service Patient Class Case Class Case Type Trauma Case? 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 Gender Identity Not on file Sexual Orientation Not on file documented as of this encounter Last Filed Vital Signs Vital Sign Reading Time Taken Comments Blood Pressure 135/81 01/23/2022 10:10 AM CDT Pulse 63 01/23/2022 10:10 AM CDT Temperature 36.3 ??C (97.3 ??F) 01/23/2022 10:13 AM C DT Respiratory Rate 22 01/23/2022 10:10 AM CDT Oxygen Saturation 100% 01/23/2022 10:10 AM CDT Inhaled Oxygen Concentration - - Weight 81.6 kg (180 lb) 01/23/2022 10:13 AM CDT Height 172.7 cm (5' 8 ) 01/23/2022 10:13 AM CDT Body Mass Index 27.37 01/23/2022 10:13 AM CDT documented in this encounter Medications at Time [...] required every 3 months for med refills, labs due 10/2021. 4 each 2 10/03/2021 2 allopurinoL (ZYLOPRIM) 100 mg tabletIndications :Crohn's disease of both small and large intestine with intestinal obstruction (HCC) Take 1 tablet (100 mg total) by mouth daily 30 tablet 1 12/19/2021 3 balsalazide (COLAZAL) 750 mg capsuleIndication s:Ulcerative Colitis Take 3 capsules three times daily. 270 capsule 11 09/13/2020 3 colestipoL (COLESTID) 1 gram tabletIndications :Diarrhea, unspecified type Take 1 tab PO 4 time daily ( with meals and at bedtime) 120 tablet 11 10/08/2020 3 docosahexaenoic acid-epa 120-180 mg capsule 3 ergocalciferol (VITAMIN D) 50,000 unit capsule TAKE ONE CAPSULE BY MOUTH EVERY 14 DAYS 25 capsule 3 11/07/2021 4 folic acid (FOLVITE) 1 mg tabletIndications :Crohn's disease of both small and large intestine with intestinal obstruction (HCC) Take 1 tablet (1 mg total) by mouth daily 90 tablet 3 10/11/2020 2 mercaptopurine (PURINETHOL) 50 mg tabletIndications :Crohn's Disease Take 1 tablet (50 mg total) by mouth daily Safety labs required every 3 months for med refills, next labs due in 03/2022. Repeat metabolites to be drawn in approx 4 weeks. Please have this drawn at your local [facility] the week of 01/16/2022. 30 tablet 1 12/19/2021 3 documented as of this encounter Discharge Disposition Disposition Code Departure Means Destination Discharge to home or self care documented in this encounter H&P Notes * Eliana Quevedo MD - 01/19/2022 3:39 PM CDT Pre Endoscopy History and Physical Nic Teran is a 31 y.o. male who is here for Procedure(s): COLONOSCOPY The indication(s) for the procedure(s): ibd. Past Medical History: Diagnosis Date ??? Allergic rhinitis ??? Anemia ??? Crohn's disease (CMS/HCC) (HCC) 2004 ??? GERD (gastroesophageal reflux disease) ??? Iritis ??? JALYN on CPAP Past Surgical History: Procedure Laterality Date ??? OTHER SURGICAL HISTORY 12/2017 ileocecal resection ??? VASECTOMY 2018 Social History Tobacco Use ??? Smoking status: Never Smoker ??? Smokeless tobacco: Never Used Substance and Sexual Activity ??? Drug use: Not Currently Types: Marijuana ??? Sexual activity: Defer Alcohol Use: Not on file Family History Problem Relation [...] Date End Date Taking? Authorizing Provider adalimumab (Aarti,CF, Pen) 40 mg/0.4 mL pen injector kit Inject 0.4 mL (40 mg total) under the skin every 7 days Safety labs required every 3 months for med refills, labs due 10/2021. 10/03/21 Eliana Quevedo MD allopurinoL (ZYLOPRIM) 100 mg tablet Take 1 tablet (100 mg total) by mouth daily 12/19/21 03/19/22 Eliana Quevedo MD balsalazide (COLAZAL) 750 mg capsule Take 3 capsules three times daily. Patient taking differently: Take 2 capsules three times daily. 09/13/20 Eliana Quevedo MD colestipoL (COLESTID) 1 gram tablet Take 1 tab PO 4 time daily ( with meals and at bedtime) Patient taking differently: Take 1 g by mouth daily Take 1 tab PO 4 time daily ( with meals and at bedtime) 10/08/20 Eliana Quevedo MD docosahexaenoic acid-epa 120-180 mg capsule ProviderRyan MD ergocalciferol (VITAMIN D) 50,000 unit capsule TAKE ONE CAPSULE BY MOUTH EVERY 14 DAYS 11/07/21 Fernando Mckeon MD folic acid (FOLVITE) 1 mg tablet Take 1 tablet (1 mg total) by mouth daily 10/11/20 Eliana Quevedo MD L.acid/L.casei/B.bif/B.raf/FOS (PROBIOTIC BLEND ORAL) Take 1 tablet by mouth daily Ryan Shook MD mercaptopurine (PURINETHOL) 50 mg tablet Take 1 tablet (50 mg total) by mouth daily Safety labs required every 3 months for med refills, next labs due in 03/2022. Repeat metabolites to be drawn in approx 4 weeks. Please have this drawn at your local [facility] the week of 01/16/2022. 12/19/21 Eliana Quevedo MD multivitamin capsule Take 1 capsule by mouth every morning. Ryan Shook MD sildenafiL (VIAGRA) 100 mg tablet Take 1/2 or 1 tablet ONE hour prior to activity on an empty stomach daily PRN 01/17/22 Simona Marie NP turmeric, bulk, 100 % powder Take 1,500 mg by mouth ProviderRyan MD Review of Systems A pertinent, focused [...] Procedure Notes * Eliana Quevedo MD - 01/23/2022 10:59 AM CDTAssociated Order(s): COLONOSCOPY ENDOSCOPY LAB Patient Name: Nic Teran Procedure Date: 01/23/2022 10:59 AM Date of : 1990 Admit Type: Outpatient Age: 31 Gender: Male Attending MD: Eliana Quevedo M.D. Room: [facility] ENDOSCOPY ROOM 01 Note Status: Finalized Procedure: Colonoscopy Indications: High risk colon cancer surveillance: Crohn's colitis of 8 (or more) years duration with one-third (or more) of the colon involved on Allo/6MP and Humira Providers: Eliana Quevedo M.D. Referring MD: Lanre [...] scope was passed under direct vision. The [id number] was introduced through the anus and advanced to 15 cm into the ileum. The colonoscopy was performed without difficulty. The patient tolerated the procedure well. Bowel prep was administered using a split dose. Findings: The perianal and digital rectal examinations were normal. Pertinent negatives include normal sphincter tone. Normal mucosa was found in the entire colon. Contrast chromoscopy with methylene blue was performed using irrigation chromoendoscopy technique. There was evidence of a prior end-to-side ileo-colonic anastomosis in the proximal transverse colon. This was patent and was characterized by erosion. The anastomosis was traversed. The terminal ileum appeared normal. No additional abnormalities were found on retroflexion. Impression: - Normal mucosa in the entire examined colon. Chromoscopy performed. - Patent end-to-side ileo-colonic anastomosis, characterized by erosion. - The examined portion of the ileum was normal. - No specimens collected. Recommendation: - Return to GI clinic as previously scheduled. - Mucosal remission - Contact Information: During normal business hours - Please call the Nurse Coordinator: [phone] After hours, evening, nights, weekends and holidays - Please call the hospital cocoa room operator at and ask for the GI fellow auto transmission mechanic. Attending Participation: I personally performed the entire procedure. Electronically signed by Eliana Quevedo M.D. Eliana Quevedo M.D. 01/23/2022 11:30:52 AM Number of Addenda: 0 Note Initiated On: 01/23/2022 10:59 AM documented in this encounter Miscellaneous Notes * Perioperative Nursing Note - Alisha Hays RN - 01/23/2022 12:09 PM CDT Patient A&Ox4,VSS,Denies pain. Tolerating PO. Discharge instructions reviewed documented in this encounter Plan of Treatment Not on file documented as of this encounter Procedures Procedure Name Priority Date/Time Associated Diagnosis Comments COLONOSCOPY 01/23/2022 11:06 AM CDT Crohn's disease of both small and large intestine without complication (CMS/HCC) (HCC) COLONOSCOPY 01/23/2022 10:59 AM CDT THIOPURINE METABOLITES Routine 01/23/2022 10:09 AM CDT Crohn's disease of both small and large intestine with other complication (HCC) History of high risk medication treatment documented in this encounter Results * COLONOSCOPY (01/23/2022 10:59 AM CDT) Anatomical Region Laterality Modality Other Narrative Procedure Note Eliana Quevedo MD - 01/23/2022 10:59 AM CDT ENDOSCOPY LAB Patient Name: Nic Teran Procedure Date: 01/23/2022 10:59 AM Date of : 1990 Admit Type: Outpatient Age: 31 Gender: Male Attending MD: Eliana Quevedo M.D. Room: [facility] ENDOSCOPY ROOM 01 Note Status: Finalized Procedure: Colonoscopy Indications: High risk colon cancer surveillance: Crohn'scolitis of 8 (or more) years duration with one-third (ormore) of the colon involved on Allo/6MP and Humira Providers: Eliana Quevedo M.D. Referring MD: Lanre [...] The scope was passed under direct vision.The [id number] was introduced through the anusand advanced to 15 cm into the ileum. The colonoscopywas performed without difficulty. The patient tolerated the procedure well. Bowel prep was administeredusing a split dose. Findings: The perianal and digital rectal examinations were normal. Pertinent negatives include normal sphincter tone. Normal mucosa was found in the entire colon. Contrast chromoscopywith methylene blue was performed using irrigation chromoendoscopytechnique. There was evidence of a prior end-to-side ileo-colonic anastomosis in the proximal transverse colon. This was patent and was characterizedby erosion. The anastomosis was traversed. The terminal ileum appeared normal. No additional abnormalities were found on retroflexion. Impression: - Normal mucosa in the entire examined colon. Chromoscopy performed. - Patent end-to-side ileo-colonic anastomosis, characterized by erosion. - The examined portion of the ileum was normal. - No specimens collected. Recommendation: - Return to GI clinic as previously scheduled. - Mucosal remission - Contact Information: During normal business hours - Please call theNurse Coordinator: [phone] After hours, evening, nights, weekends and holidays- Please call the hospital cocoa room operator at and ask for the GI fellow auto transmission mechanic. Attending Participation: I personally performed the entire procedure. Electronically signed by Eliana Quevedo M.D. Eliana Quevedo M.D. 01/23/2022 11:30:52 AM Number of Addenda: 0 Note Initiated On: 01/23/2022 10:59 AM Eliana Quevedo MD ENDOSCOPY PROCEDURE S Final Result * Thiopurine metabolites (01/23/2022 10:09 AM CDT) Thiopurine metabolites See scanned report [facility] Blood 01/23/2022 10:0 9 AM CDT 01/31/2022 3:43 PM CDT Eliana Quevedo MD LAB BLOOD ORDERABLE S Final Result [facility] [id number] [facility] [address] documented in this encounter Visit Diagnoses Diagnosis Crohn's disease of both small and large intestine with other complication (HCC)- Primary History of high risk medication treatment Crohn's disease of both small and large intestine without complication (CMS/HCC) (HCC) documented in this encounter Administered Medications Inactive Administered Medications - up to 3 most recent administrations Medication Order MAR Action Action Date Dose Rate Site methylene blue (PROVAYBLUE) (0.5%) injection Administer over 20 Minutes, Continuous PRN, Starting on Sun01/23/22 at 1118, Intra-Op New Bag 01/23/2022 11:18 AM CDT 50 mg sodium chloride 0.9% flush 0.5-20 mL 0.5-20 mL, intra-catheter, As needed, line care, Starting on Sun01/23/22 at 1006, Pre-Procedure (GI), Flush volume based on line type and size. Flush before and after each use. , Indications: FlushingIndications:Flushi ng sodium chloride 0.9% infusion 30 mL/hr, intravenous, Continuous, Starting on Sun01/23/22 at 1045, Pre-Procedure (GI) Rate/Dose Verify 01/23/2022 11:05 AM CDT 30 mL/hr New Bag 01/23/2022 10:22 AM CDT 30 mL/hr 30 mL/hr documented in this encounter Active and Recently Administered Medications Times are shown in CDT. Continuous Medication Order 01/21/2022 01/22/2022 01/23/2022 sodium chloride 0.9% infusion 30 mL/hr, intravenous, Continuous, Starting on Sun01/23/22 at 1045, Pre-Procedure (GI) 1022 (New Bag - Prov ider: Yeimy Vincent RN)1105 (Rate/Dose Verify - Provider: Vita Jaimes CRNA)1618 (Due: Stopped) PRN Medication Order 01/21/2022 01/22/2022 01/23/2022 methylene blue (PROVAYBLUE) (0.5%) injection (COMPLETED) Administer over 20 Minutes, Continuous PRN, Starting on Sun01/23/22 at 1118, Intra-Op 1118 (New Bag - Prov ider: Eliana Quevedo MD - Comment: provay blue in 500 cc sterile water for endoscopic flush) sodium chloride 0.9% flush 0.5-20 mL 0.5-20 mL, intra-catheter, As needed, line care, Starting on Sun01/23/22 at 1006, Pre-Procedure (GI), Flush volume based on line type and size. Flush before and after each use. , Indications: Flushing documented in this encounter Orders Medications Ordered That Nilo ht Not Have Been Administered Count Last Ordered Date First Ordered Date sodium chloride 0.9% flush 0.5-20 mL 1 12/31 documented in this encounter Care Teams Coater Carbon Paper Relationship Specialty Start Date End Date Lanre Parekh DO PCP - General Family Medicine 01/23/19 documented as of this encounter
--- OUTSIDE RECORDS SUMMARY | 2024-07-09 05:24 | XMS_ITS | Encounter Summary ---
Author Organization [facility] Address [address] [place] [address] Phone Care Team Providers Care Thickener Operator Name Role Phone Lanre Parekh DO Primary Care Provide r Encounter Details Date Type Department Care Team (Late st Contact Info) Description 01/23/2020 Orders Only [facility] Gastroenterology [address] 8[address] [place] [address] [place] [address] Padma Mendoza, JOSH Social History Tobacco Use Types Packs/Day Years Used Date Smoking Tobacco: Never Smokeless Tobacco: Never Alcohol Use Standard Drinks/Week Comments Yes 0 (1 standard drink = 0.6 oz pur e alcohol) wine-rarely Sex and Gender Information Value Date Recorded Sex Assigned at Not on file 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
--- OUTSIDE RECORDS SUMMARY | 2024-07-09 05:24 | XMS_ITS | Encounter Summary ---
Author Organization [facility] Address [address] [place] [address] Care Team Providers Care Java Software Developer Name Role Phone Lanre Parekh Primary Care Provide r Reason for Visit * Auth/Cert Specialty Diagnoses / Procedures Referred By Contac t Referred To Contact Diagnoses Crohn's disease of both small and large intestine without complication (CMS/HCC) (HCC) Crohn's disease of both small and large intestine without complication (CMS/HCC) (HCC) [K50.80] Procedures [place] COLONOSCOPY FLX DX W/COLLJ SPEC WHEN PFRMD COLONOSCOPY Referral ID Status Reason Start Date Expiration Date Visits Re quested Visits Authorized [id number] 1 1 Encounter Details Date Type Department Care Team (Late st Contact Info) Description 01/23/2022 11:05 AM CDT Anesthesia Event [facility] Endoscopy [id number] [place] [address] [place] [address] [place] [address] Vita Jaimes CRNA [address] [place] [address] Anesthesia Record Procedure Summary Procedure Name Responsible Anesthesiologist Anesthesia Start Time Anesthesia Stop Time COLONOSCOPY (Colon) Catrachito Lyons MD 01/23/22 1105 01/23/22 1130 Events Date Time Event Comment 01/23/2022 1015 1101 AN Equip Check 1105 An Start 1105 An Start Data 1106 In Room 1108 Start Supplemental O2 1108 Patient Positioned Laterally 1108 An Induction The patient was reevaluated immediately before moderate or deep sedation use and before anesthesia induction. 1108 Anesthesia Ready 1114 Proc Start 1125 Proc Fin 1126 Out of Room 1127 an stop data 1130 Handoff to RN I completed my handoff to the receiving nurse during which we: 1. Patient identified 2. Responsible provider identified 3. Pertinent medical history reviewed 4. Procedure type and surgical course discussed 5. Intraoperative anesthetic management and any significant issues discussed 6. Expectations and concerns for postop period discussed 7. Questions solicited from receiving nurse 8. Patient disposition at the time of handoff: PACU 1130 An Stop Meds Name Total propofol 300 mg Lidocaine IV 2 % 5 mL sodium chloride 0.9% infusion 0 mL * Agents Name O2 N2O Air Sevoflurane Inspired Sevoflurane * Blood No blood administrations on file. 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 Gender Identity Not on file Sexual Orientation Not on file documented as of this encounter OR Notes * Anesthesia Postprocedure Evaluation - Catrachito Lyons MD - 01/23/2022 12:31 PM CDT Patient: Nic Teran Procedure Summary Date: 01/23/22 Room / Location: [facility] ROOM [facility] Anesthesia Start: 1105 Anesthesia Stop: 1130 Procedure: COLONOSCOPY (N/A Colon) Diagnosis: Crohn's disease of both small and large intestine without complication (CMS/HCC) (HCC) (Crohn's disease of both small and large intestine without complication (CMS/HCC) (HCC) [K50.80]) Providers: Eliana Quevedo MD Responsible Provider: Catrachito Lyons MD Anesthesia Type: general ASA Status: 2 Anesthesia Type: general Last vitals BP 99/54 (BP Location: Left arm, Patient Position: HOB 30 degrees) Pulse 61 Temp 36.9 ??C (98.4??F) (Temporal) Resp 25 SpO2 97% Anesthesia Post Evaluation No complications documented. * Anesthesia Preprocedure Evaluation - Catrachito Lyons MD - 01/23/2022 10:16 AM CDT Images from the original note were not included. Anesthesia Evaluation Nic Teran is a 31 y.o. male Procedure(s): COLONOSCOPY Pre-Op Diagnosis Codes: * Crohn's disease of both small and large intestine without complication (CMS/HCC) (HCC) [K50.80] Patient Active Problem List Diagnosis ??? Crohn's disease of both small and large intestine (HCC) ??? History of high risk medication treatment ??? Iritis ??? Osteoporosis ??? Crohn's disease with complication (HCC) ??? Acute postoperative pain ??? Generalized abdominal pain ??? Diarrhea due to malabsorption ??? Chronic pharyngitis Past Medical History: Diagnosis Date ??? Allergic rhinitis ??? Anemia ??? Crohn's disease (CMS/HCC) (HCC) 2004 ??? GERD (gastroesophageal reflux disease) ??? Iritis ??? JALYN on CPAP Past Surgical History: Procedure Laterality Date ??? OTHER SURGICAL HISTORY 12/2017 ileocecal resection ??? VASECTOMY 2017 Allergies Allergen Reactions ??? Flagyl [Metronidazole] Other (See comments) Neuropathy Med List Status: Nurse Complete Set By: Yeimy Vincent, RN at 01/23/2022 10:09 AM Taking? Last Dose Start Date End Date Provider adalimumab (Humira,CF, Pen) 40 mg/0.4 mL pen injector kit Past Week 10/03/21 -- Eliana Quevedo MD Inject 0.4 mL (40 mg total) under the skin every 7 days Safety labs required every 3 months for medrefills, labs due 10/2021. allopurinoL (ZYLOPRIM) 100 mg tablet Past Week 12/19/21 03/19/22 Eliana Quevedo MD Take 1 tablet (100 mg total) by mouth daily Notes: MD aware of drug interaction with 6MP and wishes to dispense both balsalazide (COLAZAL) 750 mg capsule Past Week 09/13/20 -- Eliana Quevedo MD Take 3 capsules three times daily. Patient taking differently: Take 2 capsules three times daily. colestipoL (COLESTID) 1 gram tablet Past Week 10/08/20 -- Eliana Quevedo MD Take 1 tab PO 4 time daily ( with meals and at bedtime) Patient taking differently: Take 1 g by mouth daily Take 1 tab PO 4 time daily ( with meals and at bedtime) docosahexaenoic acid-epa 120-180 mg capsule -- -- Ryan Shook MD ergocalciferol (VITAMIN D) 50,000 unit capsule Past Week 11/07/21 -- Fernando Mckeon MD TAKE ONE CAPSULE BY MOUTH EVERY 14 DAYS folic acid (FOLVITE) 1 mg tablet Past Week 10/11/20 -- Eliana Quevedo MD Take 1 tablet (1 mg total) by mouth daily L.acid/L.casei/B.bif/B.raf/FOS (PROBIOTIC BLEND ORAL) Past Week -- -- Ryan Shook MD mercaptopurine (PURINETHOL) 50 mg tablet Past Week 12/19/21 -- Eliana Quevedo MD Take 1 tablet (50 mg total) by mouth daily Safety labs required every 3 months for med refills, next labs due in 03/2022. Repeat metabolites to be drawn in approx 4 weeks. Please have this drawn at your local [facility] the week of 01/16/2022. Notes: Dose adjustment due to elevated 6-TG level from 12/12/2021. Thank you! multivitamin capsule Past Month -- -- ProviderRyan MD sildenafiL (VIAGRA) 100 mg tablet 01/17/22 -- Simona Marie, REFRIGERATION UNIT REPAIRER Take 1/2 or 1 tablet ONE hour prior to activity on an empty stomach daily PRN turmeric, bulk, 100 % powder Unknown -- -- ProviderRyan MD Current Facility-Administered Medications: ??? sodium chloride 0.9% flush 0.5-20 mL, 0.5-20 mL, intra-catheter, PRN ??? sodium chloride 0.9% infusion, 30 mL/hr, intravenous, Continuous Social History Tobacco Use Smoking Status Never Smoker Smokeless Tobacco Never Used Alcohol Use: Unknown ??? Frequency of Alcohol Consumption: 2-3 times [...] TW Conv) ??? Ulcerative colitis Mother's Sister Vitals: 01/23/22 1010 01/23/22 1013 BP: 135/81 Pulse: 63 Resp: 22 Temp: 36.3 ??C (97.3 ??F) SpO2: 100% PT: No results found for requested labs within last 720 hours. INR: No results found for requested labs within last 720 hours. APTT: No results found for requested labs within last 720 hours. Hgb A1C: No results found for requested labs within last 720 hours. CBC RBC: No results found for requested labs within last 720 hours. RDW: No results found for requested labs within last 720 hours. MCHC: No results found for requested labs within last 720 hours. MCH: No results found for requested labs within last 720 hours. MCV: No results found for requested labs within last 720 hours. Hct: No results found for requested labs within last 720 hours. Hgb: No results found for requested labs within last 720 hours. WBC: No results found for requested labs within last 720 hours. MPV: No results found for requested labs within last 720 hours. Platelets: No results found for requested labs within last 720 hours. RDW CV: No results found for requested labs within last 720 hours. RDW Sd: No results found for requested labs within last 720 hours. BMP Glucose: No results found for requested labs within last 720 hours. Calcium: No results found for requested labs within last 720 hours. Sodium: No results found for requested labs within last 720 hours. Potassium: No results found for requested labs within last 720 hours. CO2: No results found for requested labs within last 720 hours. Chloride: No results found for requested labs within last 720 hours. BUN: No results found for requested labs within last 720 hours. Creatinine: No results found for requested labs within last 720 hours. DOS Physical Exam Medical history, medications, and allergies reviewed. Attestation: This PAT evaluation Airway Exam: Mallampati: I Cervical ROM: FROM Cardiovascular Exam: Rate: regular Rhythm: regular Pulmonary Exam: LCTA, bilat Anesthesia Plan ASA 2 My patient is approved for the Anesthesia Controlled Medication protocol when under care of a EQUIPMENT VALIDATION SPECIALIST Planned anesthesia: General Informed Consent: Anesthesia plan and risks discussed [...] Action Action Date Dose Rate Site lidocaine (XYLOCAINE) 20 mg/mL (2 %) injection intravenous, As needed, Starting on Sun01/23/22 at 1108, Anesthesia Intra-op, Indications: Administration of Local AnesthesiaIndications:Administrat ion of Local Anesthesia Given 01/23/2022 11:08 AM CDT 5 mL propofoL (DIPRIVAN) 10 mg/mL IV intravenous, As needed, Starting on Sun01/23/22 at 1108, Anesthesia Intra-op Given 01/23/2022 11:19 AM CDT 100 mg Given 01/23/2022 11:14 AM CDT 100 mg Given 01/23/2022 11:08 AM CDT 100 mg sodium chloride 0.9% infusion 30 mL/hr, intravenous, Continuous, Starting on Sun01/23/22 at 1045, Pre-Procedure (GI) Rate/Dose Verify 01/23/2022 11:05 AM CDT 30 mL/hr New Bag 01/23/2022 10:22 AM CDT 30 mL/hr 30 mL/hr documented in this encounter Care Teams Java Software Developer Relationship Specialty Start Date End Date Lanre Parekh DO PCP - General Family Medicine 01/23/19 documented as of this encounter
--- OUTSIDE RECORDS SUMMARY | 2024-07-09 05:24 | XMS_ITS | Encounter Summary ---
Author Organization [facility] Address [address] [place] [address] Phone Care Team Providers Care Broommaking Supervisor Name Role Phone Lanre Parekh Primary Care Provide r Encounter Details Date Type Department Care Team (Late st Contact Info) Description 03/07/2022 Orders Only [facility] Gastroenterology [address] [facility] Advanced Medicine 12th [place] [address] [place] [address] Eliana Quevedo MD [address] [place] [address] Crohn's disease of both small and large [...] on file 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 Gender Identity Not on file Sexual Orientation Not on file documented as of this encounter Plan of Treatment Not on file documented as of this encounter Procedures Procedure Name Priority Date/Time Associated Diagnosis Comments COPY(IES) SENT TO: Routine 07/27/2022 8: 26 AM BORE MILL OPERATOR THIOPURINE METABOLITES Routine 07/27/2022 8:26 AM BORE MILL OPERATOR Crohn's disease of both small and large intestine with intestinal obstruction (HCC) CBC WITH AUTO DIFFERENTIAL Routine 07/27/2022 8:26 AM BORE MILL OPERATOR HEPATIC FUNCTION PANEL Routine 07/27/2022 8:26 AM BORE MILL OPERATOR documented in this encounter Results * (ABNORMAL) CBC with auto differential (07/27/2022 8:26 AM BORE MILL OPERATOR) WBC 6.0 3.8 - 10.8 Thousand/u L [facility] RBC, POC 3.82(L) 4.20 - 5.80 Million/uL [facility] Hgb 13.0(L) 13.2 - 17.1 g/dL [facility] Hct 38.6 38.5 - 50.0 % [facility] MCV 101.0(H) 80.0 - 100.0 fL [facility] MCH 34.0(H) 27.0 - 33.0 pg [facility] MCHC 33.7 32.0 - 36.0 g/dL [facility] Rdw 13.6 11.0 - 15.0 % [facility] Platelets 252 140 - 400 Thousand/u L [facility] MPV 11.1 7.5 - 12.5 fL [facility] Neutrophils, abs 4,050 1,500 - 7,800 cells/uL [facility] Lymphocytes, abs 1,518 850 - 3,900 cells/uL [facility] Monocyte abs 342 200 - 950 cells/uL [facility] Eosinophils, abs 48 15 - 500 cells/uL [facility] Basophils, abs 42 0 - 200 cells/uL [facility] Neutrophils 67.5 % [facility] Lymphocyte pct 25.3 % [facility] Monocytes 5.7 % [facility] Eosinophils 0.8 % [facility] Basophils 0.7 % [facility] 07/27/2022 8:26 AM BORE MILL OPERATOR 07/27/2022 8:28 AM BORE MILL OPERATOR Narrative [facility] - 08/01/2022 11:52 AM BORE MILL OPERATOR FASTING:NO FASTING: NO us Eliana Quevedo MD LAB BLOOD ORDERABLE S Final Result Performing Organization Address [facility] Co de Phone Number [facility] [address] [place] [address] * Hepatic function panel (07/27/2022 8:26 AM BORE MILL OPERATOR) Protein, Total 7.6 6.4 - 8.4 g/dL [facility] Albumin 4.5 3.6 - 5.1 g/dL [facility] Globulin 3.1 2.2 - 4.0 g/dL (calc) [facility] Alb/glob ratio 1.5 0.9 - 2.3 (calc) [facility] Bilirubin, total 0.5 0.2 - 1.2 mg/dL [facility] Bilirubin, direct 0.1 < OR = 0.2 mg/dL [facility] Bilirubin, indirect 0.4 0.2 - 1.2 mg/dL (calc) [facility] Alk phos 61 36 - 130 U/L [facility] AST 18 10 - 40 U/L [facility] ALT (SGPT) 20 9 - 46 U/L [facility] 07/27/2022 8:26 AM BORE MILL OPERATOR 07/27/2022 8:28 AM BORE MILL OPERATOR Narrative [facility] - 08/01/2022 11:52 AM BORE MILL OPERATOR FASTING:NO FASTING: NO us Eliana Quevedo MD LAB BLOOD ORDERABLE S Final Result Performing Organization Address City/[facility]/ZIP Co de Phone Number [facility] [address] [facility] [place] [address] * COPY(IES) SENT TO: (07/27/2022 8:26 AM BORE MILL OPERATOR) COPY(IES) SENT TO: [facility] Comment: ?[facility] ?COPY TO ACCOUNT ?[id number] ?[place] [address] 07/27/2022 8:26 AM BORE MILL OPERATOR 07/27/2022 8:28 AM BORE MILL OPERATOR Narrative [facility] - 08/01/2022 11:52 AM BORE MILL OPERATOR FASTING:NO FASTING: NO Eliana Quevedo MD LAB BLOOD ORDERABLE S Final Result [facility] * (ABNORMAL) Thiopurine metabolites (07/27/2022 8:26 AM BORE MILL OPERATOR) 6-TG, bld 195(L) 235 - 400 pmol/8x10( 8)RBC [facility] Comment: This test was developed and its analytical performance characteristics have been determined by [employer] [facility]. It has not been cleared or approved by the FDA. This assay has been validated pursuant to the CLIA regulations and is used for clinical purposes. 6 MMP <500 <5700 pmol/8x10( 8)RBC [facility] Comment: These results are useful in [...] analytical performance characteristics have been determined by [employer] [facility]. It has not been cleared or approved by the FDA. This assay has been validated pursuant to the CLIA regulations and is used for clinical purposes. Blood 07/27/2022 8:26 AM BORE MILL OPERATOR 07/27/2022 8:28 AM BORE MILL OPERATOR Narrative [facility] - 08/01/2022 11:52 AM BORE MILL OPERATOR FASTING:NO FASTING: NO us Eliana Quevedo MD LAB BLOOD ORDERABLE S Final Result [facility] [address] [place] [address] documented in this encounter Visit Diagnoses Diagnosis Crohn's disease of both small and large intestine with intestinal obstruction (HCC)- Primary documented in this encounter Care Teams Broommaking Supervisor Relationship Specialty Start Date End Date Lanre Parekh DO PCP - General Family Medicine 01/23/19 documented as of this encounter
--- OUTSIDE RECORDS SUMMARY | 2024-07-09 05:24 | XMS_ITS | Encounter Summary ---
Author Organization [facility] Address [address] [place] [address] Phone Care Team Providers Care Meter Repairer Helper Name Role Phone Lanre Parekh Primary Care Provide r Reason for Visit * Reason Comments Osteoporosis * Diagnostic Imaging (Routine) - Closed Specialty Diagnoses / Procedures Referred By Contac t Referred To Contact Bone Health Diagnoses Low bone mass Procedures Dexa Axial Skeleton Bone Density 1 or 2 Site Fernando Mckeon MD Phone: tel: fax: [facility] (All Locations) Referral ID Status Reason Start Date Expiration Date Visits Re quested Visits Authorized [id number] Closed 05/19/2021 06/18/2022 5 5 Encounter Details Date Type Department Care Team (Late st Contact Info) Description 05/30/2021 2:10 PM ODD JOBS DAY WORKER Clinical Support 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 Gender Identity Not on file Sexual Orientation Not on file documented as of this encounter Plan of Treatment Not on file documented as of this encounter Procedures Procedure Name Priority Date/Time Associated Diagnosis Comments DEXA AXIAL SKELETON BONE DENSITY 1 OR MORE SITES Schedule Routine, Read Routine (OP Routine) 05/30/2021 2:43 PM ODD JOBS DAY WORKER Low bone mass documented in this encounter Results * Dexa Axial Skeleton Bone Density 1 or 2 Site (05/30/2021 2:43 PM ODD JOBS DAY WORKER) Anatomical Region Laterality Modality Body N/A Radiographic Nancy ging Narrative 05/31/2021 11:27 AM ODD JOBS DAY WORKER Patient Name: Nic Teran Date of : 1990 Date of scan: 05/30/2021 Bone mineral density was performed on a [employer] Densitometer. ?? Based on machine cross-calibration and precision studies the least significant changes of this densitometer is 0.024 g/cm2 at the spine, 0.020 g/cm2 at the total proximal femur, and 0.014g/cm2 at the forearm. HISTORY: This is a 30 y.o. postmenopausal male with a history of Crohn's disease and low bone mass. He reports that he has never smoked. He has never used smokeless tobacco. He is currently on treatment with calcium and vitamin D; and was previously treated with glucocorticoids. INDICATIONS: History of glucocorticoids use and history of low bone mass. FINDINGS: BONE MINERAL DENSITY OF THE LUMBAR SPINE Bone Mineral Density (BMD) of the lumbar spine was measured from L1-L4 and the average density was calculated to be 0.994 gm/cm2. This corresponds to a Z-score (standard deviations from the mean of age and gender matched controls) of -0.9. When compared to the previous study of 05/17/20 there has been a 0.076 gm/cm (8.3%) increase in bone density that is considered significant. BONE MINERAL DENSITY OF THE PROXIMAL FEMUR Bone Mineral Density (BMD) of the left hip total was found to be 0.795 gm/cm2. This corresponds to a Z-score standard deviations from the mean of age and gender matched controls of -1.6. Femoral neck is 0.635 gm/cm2 with a Z-score (standard deviations from the mean of age and gender matched controls) of -2.2. When compared to the previous study of 05/17/20 there has been a 0.045 gm/cm (6.0%) increase in bone density that is considered significant. SUMMARY: Bone mineral density is near the normal mean for age (Z-score>-2.0). There has been a significant increase in bone density since previous measurement. ADDITIONAL COMMENTS: Men Under 50: BMD alone does not define osteoporosis in a men under 50, it may indicate the necessity for further evaluation. The history and data sections of the bone mineral density scan were prepared by Trish DIXON) who is accredited by the International Society of Clinical Densitometry. The overall patient assessment and scan interpretation were performed by Fernando Mckeon M.D. who is certified by the International Society of Clinical Densitometry. [id number] Fernando Mckeon MD IMG DXA PROCEDURES Final Result documented in this encounter Visit Diagnoses Diagnosis Low bone mass documented in this encounter Care Teams Meter Repairer Helper Relationship Specialty Start Date End Date Lanre Parekh DO PCP - General Family Medicine 01/23/19 documented as of this encounter
--- OUTSIDE RECORDS SUMMARY | 2024-07-09 05:24 | XMS_ITS | Encounter Summary ---
Author Organization [facility] Address [address] [place] [address] Phone Care Team Providers Care Candy Puller Name Role Phone Lanre Parekh Primary Care Provide r Reason for Visit * Reason Onset Date Comments Metabolites Results 01/23/2022 Encounter Details Date Type Department Care Team (Late st Contact Info) Description 01/23/2022 Documentation [facility] Gastroenterology [address] [facility] 12th [place] [address] [place] [address] Shanika Braun Metabolites Results Social History Tobacco Use Types Packs/Day [...] on file 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 Eliana Quevedo MD Jahic, Selma, LPN Perfect metabolites ?? Associated Results Thiopurine metabolites documented in this encounter Plan of Treatment Not on file documented as of this encounter Visit Diagnoses Not on filedocumented in this encounter Care Teams Candy Puller Relationship Specialty Start Date End Date Lanre Parekh DO PCP - General Family Medicine 01/23/19 documented as of this encounter
--- OUTSIDE RECORDS SUMMARY | 2024-07-09 05:24 | XMS_ITS | Encounter Summary ---
Author Organization [facility] Address [address] [place] [address] Phone Care Team Providers Care Torque Tester Name Role Phone Lanre Parekh DO Primary Care Provide r Encounter Details Date Type Department Care Team (Late st Contact Info) Description 03/24/2020 Orders Only [facility] Gastroenterology [address] [facility] 8th [place] [address] [place] [address] Padma Mendoza, JOSH Social History Tobacco Use Types Packs/Day Years Used Date Smoking Tobacco: Never Smokeless Tobacco: Never Alcohol Use Standard Drinks/Week Comments Yes 0 (1 standard drink = 0.6 oz pur e alcohol) wine-rarely Sex and Gender Information Value Date Recorded Sex Assigned at Not on file 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
--- OUTSIDE RECORDS SUMMARY | 2024-07-09 05:24 | XMS_ITS | Encounter Summary ---
Author Organization [facility] Address [address] [place] [address] Phone Care Team Providers Care Membership Sales Representative Name Role Phone Lanre Parekh Primary Care Provide r Encounter Details Date Type Department Care Team (Late st Contact Info) Description 08/22/2021 Orders Only [facility] Gastroenterology [address] [facility] Medicine 8th [place] [address] [place] [id number] Shanika Braun Crohn's disease of both small and large intestine with intestinal obstruction (HCC) (Primary Dx); High risk medications (not anticoagulants) long-term use [...] on file 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 Gender Identity Not on file Sexual Orientation Not on file documented as of this encounter Plan of Treatment Scheduled Orders Name Type Priority Associated Diagnoses Orde r Schedule CBC without differential Lab Routine Crohn's disease of both small and large intestine with intestinal obstruction (HCC) High risk medications (not anticoagulants) long-term use Every 3 months for 3 Occurrences starting 08/22/2021 until 08/22/2022, 1 completed Hepatic function panel Lab Routine Crohn's disease of both small and large intestine with intestinal obstruction (HCC) High risk medications (not anticoagulants) long-term use Every 3 months for 3 Occurrences starting 08/22/2021 until 08/22/2022, 1 completed documented as of this encounter Procedures Procedure Name Priority Date/Time Associated Diagnosis Comments COPY(IES) SENT TO: Routine 12/05/2021 7: 54 AM CDT CBC WITHOUT DIFFERENTIAL Routine 12/05/2021 7:54 AM CDT Crohn's disease of both small and large intestine with intestinal obstruction (HCC) High risk medications (not anticoagulants) long-term use HEPATIC FUNCTION PANEL Routine 12/05/2021 7:54 AM CDT Crohn's disease of both small and large intestine with intestinal obstruction (HCC) High risk medications (not anticoagulants) long-term use documented in this encounter Results * COPY(IES) SENT TO: (12/05/2021 7:54 AM CDT) COPY(IES) SENT TO: [facility] Comment: ?[facility] ?COPY TO ACCOUNT ?[id number] [facility] ?[place] [address] 12/05/2021 7:54 AM CDT 12/05/2021 7:54 AM CDT us Eliana Quevedo MD LAB BLOOD ORDERABLE S Final Result [facility] * Hepatic function panel (12/05/2021 7:54 AM CDT) Protein, Total 7.9 6.4 - 8.4 g/dL [facility] Albumin 4.6 3.6 - 5.1 g/dL [facility] Globulin 3.3 2.2 - 4.0 g/dL (calc) [facility] Alb/glob ratio 1.4 0.9 - 2.3 (calc) [facility] Bilirubin, total 0.7 0.2 - 1.2 mg/dL [facility] Bilirubin, direct 0.2 < OR = 0.2 mg/dL [facility] Bilirubin, indirect 0.5 0.2 - 1.2 mg/dL (calc) [facility] Alk phos 62 36 - 130 U/L [facility] AST 22 10 - 40 U/L [facility] ALT (SGPT) 24 9 - 46 U/L [facility] Blood specimen (specimen) 12/05/2021 7:54 AM CDT 12/05/2021 7:54 AM CDT us Eliana Quevedo MD LAB BLOOD ORDERABLE S Final Result [facility] [address] [facility] [place] [address] * (ABNORMAL) CBC without differential (12/05/2021 7:54 AM CDT) WBC 4.2 3.8 - 10.8 Thousand/u L [facility] RBC, POC 3.59(L) 4.20 - 5.80 Million/uL [facility] Hgb 12.5(L) 13.2 - 17.1 g/dL [facility] Hct 37.6(L) 38.5 - 50.0 % [facility] MCV 104.7(H) 80.0 - 100.0 fL [facility] MCH 34.8(H) 27.0 - 33.0 pg [facility] MCHC 33.2 32.0 - 36.0 g/dL [facility] Rdw 13.5 11.0 - 15.0 % [facility] Platelets 246 140 - 400 Thousand/u L [facility] MPV 10.7 7.5 - 12.5 fL [facility] Comment: ? Your request to have a duplicate copy faxed has been acknowledged. ?Queued to: ??[id number] Blood specimen (specimen) 12/05/2021 7:54 AM CDT 12/05/2021 7:54 AM CDT us Eliana Quevedo MD LAB BLOOD ORDERABLE S Final Result [facility] [address] [place] [address] documented in this encounter Visit Diagnoses Diagnosis Crohn's disease of both small and large intestine with intestinal obstruction (HCC)- Primary High risk medications (not anticoagulants) long-term use Encounter for long-term (current) use of other medications documented in this encounter Care Teams Membership Sales Representative Relationship Specialty Start Date End Date Lanre Parekh DO PCP - General Family Medicine 01/23/19 documented as of this encounter
--- OUTSIDE RECORDS SUMMARY | 2024-07-09 05:24 | XMS_ITS | Encounter Summary ---
Author Organization [facility] Address [address] [place] [address] Phone Care Team Providers Care Building Maintenance Engineer Name Role Phone Lanre Parekh Primary Care Provide r Encounter Details Date Type Department Care Team (Late st Contact Info) Description 05/20/2020 12:20 PM INSURANCE ADJUSTOR Telemedicine [facility] [address] [facility] [address] Medicine 5th [place] [address] [place] [address] Fernando Mckeon MD [address] [id number] Vitamin D deficiency (Primary Dx) Social History Tobacco Use Types Packs/Day Years Used Date Smoking Tobacco: Never Smokeless Tobacco: Never Alcohol Use Standard Drinks/Week Comments Yes 0 (1 standard drink = 0.6 oz pur e alcohol) wine-rarely Sex and Gender Information Value Date Recorded Sex Assigned at Not on file 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 HISTORY OF PRESENT ILLNESS: The patient is a 29-year-old male with a pastmedical history significant for low bone mass for age, vitamin D deficiency and perforating ileocolonic Crohn's [...] is on methotrexate and Humira every alternate week. He underwent an uncomplicated ileocecectomy on 01/11/2018, post-operatively developed 1 episode ofsevere abdominal pain with fever. He was given Cipro and balsalazide, but the symptoms prolonged 1-2 months and later started on 6-MP therapy for treatment. He reports no recent flares of his crohn's disease in the past year. Currently his treatment for crohn's consists of Humira, 6-MP , Allopurinol daily and colazal. He reports no interval falls or fractures. Noted 15 lbs weight gain due to COVID largely due to more sedentary lifestyle and stopped . Does not endorse any symptoms suggestive of hypogonadism. No decreased libido. No difficulty obtaining or maintaining an erection. Currently on 50,000 international units Vitamin D every 2 weeks, with additional 5000 internationalunits daily (states he mistakenly bought 5000 international units instead of 1000 international units but continued to take in its place) and an additional 500 international units in each his Citracal tablet. Good dieatary intake. ROS- Denies any current symptoms of fatigue, [...] Supervised by Dr. Karol Tran, a pediatric volunteer recruiter at [facility]. 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 He has 2 children, 3.5 Years and 1.5 years old. No alcohol, tobacco, or excessive caffeine intake. . PAST SURGICAL HISTORY: Past Surgical History: Procedure Laterality Date ??? OTHER SURGICAL HISTORY 12/2017 ileocecal resection ??? VASECTOMY 2017 ACTIVE PROBLEMS: Patient Active Problem List Diagnosis ??? Crohn's disease of both small and large intestine (CMS/HCC) ??? History of high risk medication treatment ??? Iritis ??? Osteoporosis ??? Crohn's disease with complication (CMS/HCC) ??? Acute postoperative pain ??? Generalized abdominal pain ??? Diarrhea due to malabsorption CURRENT MEDICATIONS: Current Outpatient Prescriptions: ??? ADALIMUMAB SUBQ, 40 mg subQ every 2 weeks ??? balsalazide (COLAZAL) 1500 mg capsule, daily ??? CitraCal, 1 tablet daily, (325mg calcium, 500 units Vitamin D) ??? cholecalciferol (VITAMIN D-3) 5,000 unit daily ??? colestipol (COLESTID) 1 gram tablet daily ??? ergocalciferol (VITAMIN D) 50,000 unit capsule every 14 (fourteen) days. ??? multivitamin capsule, daily - contains 500 units Vitamin D ??? 6-MP, 50mg, daily ??? Allopurinol, 100mg, dialy ALLERGIES: Allergies Allergen Reactions ??? Flagyl [Metronidazole] Other (See comments) Neuropathy FAMILY HISTORY: Family History Problem Relation Age of Onset ??? Hypertension Mother Family history of hypertension - (Added by TW Conv) ??? Kidney failure Mother Family history of renal failure - (Added by TW Conv) ??? Hypertension Father Family history of hypertension - (Added by TW Conv) ??? Ulcerative colitis Mother's Sister Vitals There were no vitals taken for this visit. PHYSICAL EXAM: Alert and Oriented x3 ASSESSMENT: This is a 29 year-old male with a past medical history significant for low bone mass for age, vitamin D deficiency, short stature (prior treatment with GH replacement) and Crohn's disease diagnosed in 2004 with 2 to 3 years of high dose prednisone exposure with dosesranging from 10 to 40 mg per day. He was then transitioned initially to azathioprine and Remicade, and now is currently onHumira/6-MP+allopurinol. The patient reports a previous bone density [...] bone loss on his initial visit in 2017 were largely wnl with the exception of vitamin D level 21, serum phosphorus was within normal limits. . Free T4 and TSH , Free and total Testosterone and SPEP were within normal limits. , and 24 hour urine studies 242 mg/24hrs. Prior CMP had been within normal limits including serum alkaline phosphatase, calcium, electrolytes, and creatinine. PLAN: (1) Low bone mass: L1-L4 Lumbar Spine Tscore - 1.6 , Left total Hip T score -1.9 BMD today is stable when compared to his 2019 study. Will check vitamin D level with upcomming labs. F/u in 1 yr with rpt BMD if stable will consider lengthening out follow up to q2 years. Plan to continue D 50,000 international units [id number] as of now. Patient was to have decreased his daily vitamin D from 5000---> total 2000 international units vitamin D daily. Will adjust level of supplementation based on lab testing. I encouraged the patient to reume weight-bearing exercise for at least 20 to 30 minutes per day. Should there be a trend towards loss or interval fragility fractures, those would be reasons for initiating pharmacologic therapy. Thank you for sending your patient to the [facility]. Please let us know if I can be of any more assistance. If you have any questions or concerns please do not hesitate to give us a call. RANCE ADJUSTOR documented in this encounter Plan of Treatment Not on file documented as of this encounter Visit Diagnoses Diagnosis Vitamin D deficiency- Primary documented in this encounter Care Teams Building Maintenance Engineer Relationship Specialty Start Date End Date Lanre Parekh DO PCP - General Family Medicine 01/23/19 documented as of this encounter
--- OUTSIDE RECORDS SUMMARY | 2024-07-09 05:24 | XMS_ITS | Encounter Summary ---
Author Organization [facility] Address [address] [place] [address] Phone Care Team Providers Care Transmission Mechanic Name Role Phone Lanre Parekh DO Primary Care Provide r Reason for Visit * Reason Comments Testicle Pain * Consultation (Routine) - Closed Specialty Diagnoses / Procedures Referred By Renay rivero Referred To Contact Urology Diagnoses Scrotal pain Lanre Parekh DO [address] [place] [address] Phone: tel: fax: [facility] (All Locations) Referral ID Status Reason Start Date Expiration Date V isits Requested Visits Authorized [id number] Closed Specialty Services Required 12/29/2021 01/28/2023 99 99 Encounter Details Date Type Department Care Team (Late st Contact Info) Description 03/07/2022 1:40 PM CDT [facility] - [facility] Urology [address] [facility] Advanced Medicine 11th [place] [address] [place] [address] Simona Carrillo NP [address] [place] [address] Scrotal pain (Primary Dx) Social History Tobacco Use Types [...] on file 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 male. Chief Complaint No chief complaint on file. HPI Nic Teran is a 31 y.o. male with hx of Crohn's Disease and JALYN who is following up on Scrotal Pain and ED. 1) Scrotal pain His scrotal pain began 4-5 month(s) ago. Pain is present in bilateral scrotum (R>L) and describeas dull consistant pain, difficult to walk sometimes when this occurs. There is no radiation of pain or aggravating factors. There is maybe associated injury or trauma, he has small toddlers. There is scrotal swelling on the right side. There is no associated LUTS. He had prior vasectomy with Dr. Ramesh vega in 10/2017. He did note 1 episode of hematospermia in 09/2021. Scrotal US obtained on 02/01/22 showed WNL (Full report in Results). He reports he has not had anymore scrotal pain since last visit. Patient denies hematuria, dysuria, flank pain, fevers, chills, or unintentional weight loss. Patient denies family history of malignancy including testicular cancer. 2) ED The ED began 4 year(s) ago. His comorbidities are listed above. He has tried Blue Chew OTC (Sildenafil) that does help. Patient reports good libido. He is generally pretty active, goes to gym 4x/day with 45mins of exercise. Never smoker. His testosterone was WNL at 327 on 01/17/22. He was given a script for Sildenafil 100mg PRN but he reports he has not gotten it filled, the OTC blue chew works well. Review of Systems A focused ROS was obtained and negative except for that which was noted in the HPI. Medication: Current Outpatient Medications on File Prior to Visit Medication Sig Dispense Refill adalimumab (Humira,CF, Pen) 40 mg/0.4 mL pen injector kit Inject 0.4 mL (40 mg total) under the skin every 7 days Safety labs required every 3 months for med refills, next labs due 03/2022. 4 each 2 allopurinoL (ZYLOPRIM) 100 mg tablet Take 1 tablet (100 mg total) by mouth daily 30 tablet 1 balsalazide (COLAZAL) 750 mg capsule Take 3 capsules three times daily. (Patient taking differently: Take 2 capsules three times daily.) 270 capsule 11 colestipoL (COLESTID) 1 gram tablet Take 1 tab PO 4 time daily ( with meals and at bedtime) (Patient taking differently: Take 1 g by mouth daily Take 1 tab PO 4 time daily ( with meals and at bedtime)) 120 tablet 11 docosahexaenoic acid-epa 120-180 mg capsule (Patient not taking: No sig reported) ergocalciferol (VITAMIN D) 50,000 unit capsule TAKE ONE CAPSULE BY MOUTH EVERY 14 DAYS 25 capsule 3 folic acid (FOLVITE) 1 mg tablet Take 1 tablet (1 mg total) by mouth daily 90 tablet 3 L.acid/L.casei/B.bif/B.raf/FOS (PROBIOTIC BLEND ORAL) Take 1 tablet by mouth daily mercaptopurine (PURINETHOL) 50 mg tablet Take 1 tablet (50 mg total) by mouth daily Safety labs required every 3 months for med refills, next labs due in 03/2022. Repeat metabolites to be drawn in approx 4 weeks. Please have this drawn at your local [facility] the week of 01/16/2022. 30 tablet 1 multivitamin capsule Take 1 capsule by mouth every morning. sildenafiL (VIAGRA) 100 mg tablet Take 1/2 or 1 tablet ONE hour prior to activity on an empty stomach daily PRN 6 tablet 11 turmeric, bulk, 100 % powder Take 1,500 mg by mouth No current facility-administered medications on file prior to visit. Allergies: Allergies Allergen Reactions Flagyl [Metronidazole] Other (See comments) Neuropathy Physical Exam Constitutional: General: He is not in acute distress. Appearance: Normal appearance. He is well-developed. Eyes: General: No scleral icterus. Conjunctiva/sclera: Conjunctivae normal. Cardiovascular: Rate and Rhythm: Normal rate. Pulmonary: Effort: Pulmonary effort is normal. No respiratory distress. Abdominal: Tenderness: There is no guarding. Musculoskeletal: General: Normal range of motion. Cervical back: Normal range of motion. Neurological: Mental Status: He is alert and oriented to person, place, and time. Psychiatric: Behavior: Behavior normal. Results US Scrotum W Limited Doppler (C) 02/01/22 Status: Final result Study Result Narrative & Impression EXAMINATION: 1. SCROTAL SONOGRAM 2. SCROTAL DOPPLER HISTORY: 31-year-old male status post vasectomy with 3 months of dull shifting testicular pain COMPARISON: None FINDINGS: SCROTAL SONOGRAM: The testes are normal in size and appearance. The right testis measures 4.8 cm by 3.4 cm by 2.5 cm and the left measures 4.7 cm by 3.0 cm by 2.4 cm. No focal lesions are seen. Both the right and left epididymis exhibit expected postvasectomy changes, although it is more apparent on the right. No abnormal scrotal masses or fluid collections are seen. SCROTAL DOPPLER: Color Doppler and spectral analysis were used to evaluate the scrotal contents. Blood flow is readily detectable in both the right and left testis and appears symmetric bilaterally. Arterial waveforms are present bilaterally. Venous waveforms are not detectable in either side, an expected finding. There is no evidence of hyperemia in either the right or left epididymis. No varicocele is present. IMPRESSION: 1. Normal post vasectomy scrotal sonogram and Doppler. No sonographic evidence of epididymitis, orchitis, or torsion. Dictated by: Naveen Tolentino MD The radiology attending physician has personally reviewed this study, and had reviewed and/or edited this written report and agrees with it. Electronically signed by: Christopher Stapleton M.D. Results for orders placed or performed in visit on 03/07/22 POCT urinalysis dipstick Result Value Ref Range Color, Urine, POC Yellow Clarity, ur, POC Clear Clear Glucose, ur, POC Negative Negative MG/DL Ketones, ur, POC Negative Negative Blood, ur, POC Negative Negative pH, ur, POC 7.0 5.0 - 8.0 Protein, ur, POC Negative Negative Nitrite, ur, POC Negative Negative Leukocytes, ur, POC Negative Negative Lot Number x Chemistry Lab Results Component Value Date SODIUM 140 05/12/2019 POTASSIUM 4.1 05/12/2019 CHLORIDE 104 05/12/2019 CO2 25 05/30/2021 ANIONGAP 8 05/12/2019 BUNSER 14 05/12/2019 CREATININE 0.85 05/30/2021 GLUCOSE 104 (H) 05/30/2021 CALCIUM 9.8 05/30/2021 BILITOT 0.7 12/05/2021 PROTEIN 7.9 12/05/2021 ALBUMIN 4.6 12/05/2021 ALKPHOS 62 12/05/2021 AST 22 12/05/2021 ALT 24 12/05/2021 PHOS 4.2 04/30/2017 MAGNESIUM 2.0 01/12/2018 There were no vitals taken for this visit. Assessment/Plan Diagnoses and all orders for this visit: Scrotal pain (N50.82) (Primary) - Ambulatory referral to Urology - POCT urinalysis dipstick Scrotal pain resolved, normal Scrotal US. If pain persists, will refer to Dr Suresh Vázquez for further evalution. Erectile dysfunction, unspecified erectile dysfunction type (N52.9) Not an issue, doing well with Blue chew OTC. Follow up PRN. documented in this encounter Plan of Treatment Not on file documented as of this encounter Procedures Procedure Name Priority Date/Time Associated Diagnosis Comments POCT URINALYSIS DIPSTICK Routine 03/07/2022 1:49 PM CDT Scrotal pain documented in this encounter Results * POCT urinalysis dipstick (03/07/2022 1:49 PM CDT) Color, Urine, POC Yellow Clarity, ur, POC Clear Clear Glucose, ur, POC Negative Negative MG/DL Ketones, ur, POC Negative Negative Blood, ur, POC Negative Negative pH, ur, POC 7.0 5.0 - 8.0 Protein, ur, POC Negative Negative Nitrite, ur, POC Negative Negative Leukocytes, ur, POC Negative Negative Lot Number x Urine 03/07/2022 1:49 PM CDT Simona Carrillo TEA [employer]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
--- OUTSIDE RECORDS SUMMARY | 2024-07-09 05:24 | XMS_ITS | Encounter Summary ---
Author Organization [facility] [place] Address [address] [place] [address] Phone Care Team Providers Care Thread Singer Name Role Phone Lanre Parekh Primary Care Provide r Reason for Visit * Reason Comments Osteopenia Encounter Details Date Type Department Care Team (Late st Contact Info) Description 05/30/2021 2:40 PM SUPERVISING BAILIFF Office Visit [facility] [address] 5th [place] [address] [place] [id number] Fernando Mckeon MD [address] [address] Low bone mass (Primary Dx) Social [...] on file Legal Sex Male 11:11 PM SUPERVISING BAILIFF Gender Identity Not on file Sexual Orientation Not on file documented as of this encounter Last Filed Vital Signs Vital Sign Reading Time Taken Comments Blood Pressure - - Pulse - - Temperature - - Respiratory Rate - - Oxygen Saturation - - Inhaled Oxygen Concentration - - Weight 85.3 kg (188 lb) 05/30/2021 2:41 PM SUPERVISING BAILIFF Height 172.5 cm (5' 7.9 ) 05/30/2021 2:41 PM SUPERVISING BAILIFF Body Mass Index 28.67 05/30/2021 2:41 PM SUPERVISING BAILIFF documented in this encounter Patient Instructions * Patient Instructions* Fernando Mckeon MD - 05/30/2021 2:40 PM SUPERVISING BAILIFF Bone Health Program Discharge and Information Sheet Contact: Call: [phone] or [phone] FAX: [phone] Name: Nic Teran Thank you for choosing the [facility] for consultation about your [...] Calcium, Vitamin D and Excercise - Calcium 7236-3598 mg daily, through a combination of diet and supplements - Vitamin D 1789-3482 IU daily - Weight bearing activity as [...] Follow Up Appointment: Please stop at the commercial front load operator to make a follow-up appointment in 2 year or call [phone]. Every attempt will be made to schedule [...] to give our office a call at [phone] option # 1. Bone Density Testing: To ensure the best quality of care, we strongly recommend you have all your follow up bone density tests done at our center. Bone density tests cannot be compared between different facilities. If another physician requests a bone density test for you, please let her/him know that your bone density is being monitored by the [facility]. If your other providers have questions or would like a report of your bone density scans, they can contact [facility] [phone] or Medical Records at [phone]. Important! Always remember to stop taking your calcium supplements 24 hours before you are scheduled to have your bone density test at your next visit. If you need to make changes to your follow-up appointment or are running late to your visit at the Bone Health Program, please contact us as soon as possible at [phone] ([facility]), or [phone] ([facility]), or [phone] ([facility]). We work on a very tight schedule and depending on the circumstances it may be necessary to resched ule your appointment if no other time slot is available on the same day. [facility] patient portal allows you to view your medical records, test results, personal information,request prescription renewals, review past appointments, request new ones and securely communicate online with our office. Ask at the campus receptionist desk about receiving an invite to join [facility] portal. For questions about accessing [facility] patient portal call [phone]. Feel free to visit our web site for further information on medications, diet, exercise and other things you can do to take charge of your bone health: [email or web address] Thank you for choosing the [facility]! RVISING BAILIFF RVISING BAILIFF documented in this encounter Progress Notes * Fernando Mckeon MD - 05/30/2021 2:40 PM CST NAME: Nic Teran : 1990 REASON FOR VISIT: Presents for follow up of low bone mass for age. HISTORY OF PRESENT ILLNESS: The patient is a 30 year-old male with a pastmedical history significant for [...] week. He underwent an uncomplicated ileocecectomy on 01/11/2018. Interval History : Reports No falls or fractures. Had COVID in January full recovery (despite being fully vaccinated) In terms of his Crohn's he was Increased Humira Q2 weeks to Q weekly, decreased MP6 in April GI given low humira doses. Started working out [employer] work out group after being introduced by a friend. Weight, strengthening, conditioning exercise works out 5/7 days. Since starting this exercise regimen he has noted increased energy levels and well begin. . Was taking 50 K twice weekly stopped after prescription ran out. D3 4696-8438 IUs daily . Good dietary calcium intake. He has been working primarily at home and is feeling burnt out- planning family vacation spouse andyoung children and looking forward to this. ROS- Denies any current symptoms of fatigue, [...] Supervised by Dr. Karol Tran, a pediatric recreational specialist at [facility]. 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 He has 2 children, 3.5 Years and [...] TW Conv) ??? Ulcerative colitis Mother's Sister BONE MINERAL DENSITY OF THE LUMBAR SPINE [...] increase in bone density since previous measurement. Vitals Vitals Ht 172.5 cm (5' 7.9 ) Wt 85.3 kg (188 lb) BMI 28.67 kg/m?? PHYSICAL EXAM: Alert and Oriented x3 [...] memory, affect and judgment normal. Vitals reviewed. ASSESSMENT: This is a 29 year-old male [...] patient reports a previous bone density in 2015 that was consistent with osteopenia. Bone density [...] 242 mg/24hrs (1) Low bone mass: DEXA today L1-L4 Lumbar Spine Tscore - 0.9 , Left total Hip T score -1.6 , Femoral Neck T score -2.2. With a 8% improvement at the spina and a 6% improvement at the hip. PLAN Suprisingly robust imporvements in the setting of increased exercise, though improved control of his Crohn's may also be factor. Labs today CMP, PTH wnl, D- 31. F/u in 1 yr with rpt BMD if stable will consider lengthening out follow up to q2 years. Plan to continue D 50,000 international units [id number] as of now. Continue 2 000 IUs daily . I encouraged the patient to continue his weight-bearing exercises. Thank you for sending your patient to the [facility] at [facility]. Please let us know if I can be of any more assistance. If you have any questions or concerns please do not hesitate to give us a call. RVISING BAILIFF documented in this encounter Plan of Treatment Not on file documented as of this encounter Results * (ABNORMAL) Comprehensive metabolic panel (05/30/2021 3:32 PM SUPERVISING BAILIFF) Total Protein 7.9 6.1 - 8.4 g/dL [facility] Albumin 4.8 3.5 - 5.2 g/dL [facility] Calcium 9.8 8.6 - 10.3 mg/dL [facility] BUN 15 7 - 23 mg/dL [facility] Total Bilirubin 0.49 0.20 - 1.40 mg/dL [facility] Alk Phos, Total 85 35 - 129 IU/L [facility] AST (SGOT) 21 11 - 47 IU/L [facility] ALT (SGPT) 24 6 - 53 IU/L [facility] Creatinine 0.85 0.70 - 1.30 mg/dL [facility] Sodium 138 135 - 145 mmol/L [facility] Potassium 4.1 3.3 - 5.1 mmol/L [facility] Chloride 101 95 - 107 mmol/L [facility] CO2 Content 25 21 - 29 mmol/L [facility] Glucose 104(H) 64 - 99 mg/dL [facility] Comment: NONFASTING GLUCOSE RANGE = 64-199 mg/dL FASTING GLUCOSE 64 - 99 = NORMAL FASTING GLUCOSE 100 - 125 = IMPAIRED FASTING GLUCOSE FASTING GLUCOSE >=126 = PROVISIONAL DIAGNOSIS OF DIABETES eGFR >90.0 >60.0 mL/min/1.7 3 m2 [facility] Comment:eGFR updated to new CKD-EPI (2020) calculation without race on 05/16/21. Blood specimen (specimen) 05/30/2021 3:32 PM SUPERVISING BAILIFF 05/30/2021 3:54 PM SUPERVISING BAILIFF us Fernando Mckeon MD LAB BLOOD ORDERABLES Final Resu lt [facility] * PTH (05/30/2021 3:32 PM SUPERVISING BAILIFF) Parathyroid Hormone 26.8 15.0 - 65.0 pg/mL [facility] Blood specimen (specimen) 05/30/2021 3:32 PM SUPERVISING BAILIFF 05/30/2021 3:54 PM SUPERVISING BAILIFF us Fernando Mckeon MD LAB BLOOD ORDERABLES Final Resu lt [facility] * Vitamin D 25 hydroxy (05/30/2021 3:32 PM SUPERVISING BAILIFF) Vitamin D 31.8 30.0 - 100.0 ng/mL [facility] Comment: VITAMIN D DEFICIENCY = LESS THAN or EQUAL TO 20 ng/mL VITAMIN D INSUFFICIENCY = GREATER THAN 20 AND LESS THAN 30 ng/mL RECOMMENDED NORMAL RANGE = 30-100 ng/mL Blood specimen (specimen) 05/30/2021 3:32 PM SUPERVISING BAILIFF 05/30/2021 3:54 PM SUPERVISING BAILIFF Fernando Mckeon MD LAB BLOOD ORDERABLES Final Resu lt [facility] documented in this encounter Visit Diagnoses Diagnosis Low bone mass- Primary documented in this encounter Care Teams Thread Singer Relationship Specialty Start Date End Date Lanre Parekh DO PCP - General Family Medicine 01/23/19 documented as of this encounter
--- OUTSIDE RECORDS SUMMARY | 2024-07-09 05:24 | XMS_ITS | Encounter Summary ---
Author Organization [facility] Address [address] [place] [address] Phone Care Team Providers Care Memorial Designer Name Role Phone Lanre Parekh Primary Care Provide r Encounter Details Date Type Department Care Team (Late st Contact Info) Description 08/29/2019 Orders Only [facility] Gastroenterology [address] 8th [place] [address] [place] [phone] aPdma Mendoza, JOSH Crohn's disease of both small [...] on file Legal Sex Male 11:11 PM RECEPTIONIST Gender Identity Not on file Sexual Orientation Not on file documented as of this encounter Ordered Prescriptions Prescription Sig Dispense Quantity Refills Last Filled Start Date End Date adalimumab (HUMIRA, CF, PEN) 40 mg/0.4 mL pen injector kitIndications:Sherry hn's Iain,PA approved through [employer] #[id number] starting 03/23/19 through 04/21/20 Inject 0.4 mL (40 mg total) under the skin every 14 (fourteen) days SAFETY LABS REQUIRED EVERY 3 MONTHS FOR REFILLS DUE 10/2019 2 each 5 08/29/2019 0 documented in this encounter Plan of Treatment Not on file documented as of this encounter Visit Diagnoses Diagnosis Crohn's disease of both small and large intestine with intestinal obstruction (HCC) documented in this encounter Discontinued Medications Medication Sig Discontinue Reason Start Date End Da te adalimumab (HUMIRA, CF, PEN) 40 mg/0.4 mL pen injector kitIndications:Crohn's Disease,PA approved through [employer] #[id number] starting 03/23/19 through 04/21/20 Inject 0.4 mL (40 mg total) under the skin every 14 (fourteen) days SAFETY LABS REQUIRED EVERY 3 MONTHS FOR REFILLS DUE 08/2019 Reorder 05/13/2019 08/29/2019 documented as of this encounter Care Teams Memorial Designer Relationship Specialty Start Date End Date Lanre Parekh DO PCP - General Family Medicine 01/23/19 documented as of this encounter
--- OUTSIDE RECORDS SUMMARY | 2024-07-09 05:24 | XMS_ITS | Encounter Summary ---
Author Organization [facility] Address [address] [place] [address] Phone Care Team Providers Care Gallery Or Museum Attendant Name Role Phone Lanre Parekh Primary Care Provide r Encounter Details Date Type Department Care Team (Late st Contact Info) Description 05/18/2020 Telephone [facility] [address] [place] [address] Fernando Mckeon MD [address] [address] Social History Tobacco Use Types Packs/Day Years Used Date Smoking Tobacco: Never Smokeless Tobacco: Never Alcohol Use Standard Drinks/Week Comments Yes 0 (1 standard drink = 0.6 oz pur e alcohol) wine-rarely Sex and Gender Information Value Date Recorded Sex Assigned at Not on file Legal Sex Male 11:11 PM APPLIANCE MECHANIC Gender Identity Not on file Sexual Orientation Not on file documented as of this encounter Miscellaneous Notes * Telephone Encounter - Eric Moss MA - 05/18/2020 3:22 PM CST I spoke with Nic today and he is scheduled for a video visit with Dr. Mckeon on 05/20/20at 12:20 pm. He is aware to complete the e-check in process and how to connect via video through [employer] the dayof the visit. IANCE MECHANIC documented in this encounter Plan of Treatment Not on file documented as of this encounter Visit Diagnoses Not on filedocumented in this encounter Care Teams Gallery Or Museum Attendant Relationship Specialty Start Date End Date Lanre Parekh DO PCP - General Family Medicine 01/23/19 documented as of this encounter
--- OUTSIDE RECORDS SUMMARY | 2024-07-09 05:24 | XMS_ITS | Encounter Summary ---
Author Organization [facility] Address [address] [place] [address] Phone Care Team Providers Care Genetic Counselor Name Role Phone IzabellaKourtneyLanrepo Conway Primary Care Provide r Reason for Referral * (Routine) - Closed Specialty Diagnoses / Procedures Referred By Renay t Referred To Contact Diagnoses JALYN (obstructive sleep apnea) Procedures Miscellaneous DME Davion Samuel NP [address] [place] [address] Phone: tel: fax: Referral ID Status Reason Start Date Expiration Date Visits Re quested Visits Authorized [id number] Closed 09/15/2019 03/26/2021 1 1 Reason for Visit * Reason Comments Sleep Apnea Encounter Details Date Type Department Care Team (Late st Contact Info) Description 09/12/2019 9:30 AM CDT Office Visit [facility] Sleep [address] 6[address] [place] [address] Davion Samuel NP [address] [place] [address] JALYN (obstructive sleep apnea) (Primary Dx) Social History Tobacco Use Types Packs/Day Years Used Date Smoking Tobacco: Never Smokeless Tobacco: Never Alcohol Use Standard Drinks/Week Comments Yes 0 (1 standard drink = 0.6 oz pur e alcohol) wine-rarely Sex and Gender Information Value Date Recorded Sex Assigned at Not on file 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 No / Unsure 09/12/2019 9:18 AM CDT documented as of this encounter Last Filed Vital Signs Vital Sign Reading Time Taken Comments Blood Pressure 125/71 09/12/2019 9:30 AM CDT Pulse 84 09/12/2019 9:30 AM CDT Temperature - - Respiratory Rate - - Oxygen Saturation 97% 09/12/2019 9:30 AM CDT Inhaled Oxygen Concentration - - Weight 78.6 kg (173 lb 5 oz) 09/12/2019 9:30 AM CDT Height 170.2 cm (5' 7 ) 09/12/2019 9:30 AM CDT Body Mass Index 27.14 09/12/2019 9:30 AM CDT documented in this encounter Progress Notes * Davion Samuel NP - 09/12/2019 9:30 AM CDT Patient Name: NIC TERAN Medical Record Number (MRN): [id number] Date of (): 1990 Encounter Date: 09/12/2019 Chief Complaint Nic Teran is a 28 y.o. male seen today to establish care for JALYN. [facility] 04/03/2019. HPI 28 y.o. patient with crohn's dz follows-up for JALYN that was diagnosed on 12/19/18 through his PCP's office. HST through [facility] diagnosis 12/19/18 ( Wt 170 lbs), AHI 5.2, RDI 11.7, AMIRA 0, O2N 89%. APAP 5-14 cm started at [facility]. Uses PAP nightly with benefits. Has dry mouth with mask ( [employer]). Mask valve makes noise when he increases the humidifier. He likes his PAP, denies snoring and witnessed apnea on PAP. Travels with PAP. On all nights, bedtime is 9:30-11 pm, rise time is 5:30 -6 am, and he takes 10 minutes to fall asleep. He wakes up 1-2 now vs 3-4 times during the night for no apparent reason. Wolf sleepiness scale today 09/22 which significantly decreased from at [facility]. Denies drowsy driving. Download from 08/13/19 to 09/11/19 ( 30 days) demonstrates nightly use of 7 hrs 15 minutes, % nights used >4 hrs is 100%. Machine set on 5-14 cm, AHI 3.2, pressure 95th percentile is 17.1 cm, mask leak 95th percentile is 1L/ mins. Allergies Allergen Reactions ??? Flagyl [Metronidazole] Other (See comments) Neuropathy Current Outpatient Medications Medication Sig Dispense Refill ??? adalimumab (HUMIRA, CF, PEN) 40 mg/0.4 mL pen injector kit Inject 0.4 mL (40 mg total) under the skin every 14 (fourteen) days SAFETY LABS REQUIRED EVERY 3 MONTHS FOR REFILLS DUE 10/2019 2 each 5 ??? allopurinoL (ZYLOPRIM) 100 mg tablet Take 1 tablet (100 mg total) by mouth daily 90 tablet 0 ??? balsalazide (COLAZAL) 750 mg capsule Take 3 capsules three times daily. 270 capsule 11 ??? colestipoL (COLESTID) 1 gram tablet Take 1 tab PO 4 time daily ( with meals and at bedtime) 120tablet 11 ??? ergocalciferol (VITAMIN D) 50,000 unit capsule Take 1 capsule (50,000 Units total) by mouth every 14 (fourteen) days 6 capsule 3 ??? folic acid (FOLVITE) 1 mg tablet ??? hyoscyamine (LEVSIN) 0.125 mg SL tablet Take 1 tablet (0.125 mg total) by mouth every 6 (six) hours as needed for cramping or diarrhea Dissolve tab under the tongue 100 tablet 5 ??? L.acid/L.casei/B.bif/B.raf/FOS (PROBIOTIC BLEND ORAL) Take 1 tablet by mouth daily ??? mercaptopurine (PURINETHOL) 50 mg tablet Take 1 tabs PO 6 days per week, take 2 tabs PO daily -1 day per week daily,LABS Every 3 months due next 12/2019 96 tablet 0 ??? multivitamin capsule Take 1 capsule by mouth every morning. No current facility-administered medications for this visit. Patient Active Problem List Diagnosis ??? Crohn's [...] HISTORY 12/2017 ileocecal resection ??? VASECTOMY 2017 Family History Problem Relation Age of Onset ??? Hypertension Mother Family history of hypertension - (Added by TW Conv) ??? Kidney failure Mother Family history of renal failure - (Added by TW Conv) ??? Hypertension Father Family history of hypertension - (Added by TW Conv) ??? 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 All other systems are negative except as per the HPI. Vital Signs Vitals: 09/12/19 0930 BP: 125/71 BP Location: Left arm Patient Position: Sitting Pulse: 84 SpO2: 97% Weight: 78.6 kg (173 lb 5 oz) Height: 170.2 cm (5' 7 ) Physical Exam GENERAL EXAM General: Well developed, well nourished, in no acute distress. HEENT: Normal conjunctivae/sclerae.Mallampati airway is class III. Tonsils are grade 2. Neck circumference is 16.5 inches. Lungs: Lungs are clear to auscultation bilaterally. Cardiovascular: Regular rate and rhythm; there are no murmurs, gallops or rubs. Abdomen: Soft, nontender and benign. Extremities: No clubbing or cyanosis. No edema Integumentary: Facial skin no irritation or breakouts; skin warm and dry, no rash Lymph nodes: Cervical, supraclavicular, and axillary nodes normal NEUROLOGIC EXAM: Mental Status Alert, oriented, normal spontaneous fluent speech with full comprehension. Cranial nerves Extraocular movements full and conjugate, face strong and symmetric, palate rise andtongue protrusion symmetric. Motor Normal fine finger movements. No tremor. Sensory Intact to light touch in all extremities symmetrically. Coordination and gait Normal stance and gait. Assessment 28 y.o. male with mild JALYN who follows-up for JALYN diagnosed in November 2018 through his PCP's office. Pt was started on APAP 5-14 cm. He is using his machine nightly and feels great on it. Compliance isgood residual apnea, hypopnea index is low as well. His mask makes some noises when he increases the humidifier. He will try different type of mask at the [employer] company, order sent. We discussed JALYN and its treatments including positive airway pressure, oral prosthesis, surgery, Provent adhesive nasal valves and weight loss. We discussed how untreated JALYN can cause unrefreshing sleep and excessive daytime sleepiness, as well as how it contributes over the fpc to cardiovascular risk, recalcitrant hypertension and difficulty with weight loss . Plan 1-Mild JALYN -Continue APAP 5-14 cm with all sleep. Try different mask at [facility] in 1 year or sooner if needed. Obesity- ?? Weight loss through diet and exercise Advised patient to never drive while drowsy. He verbalizes understanding. Return in about 1 year (around 09/11/2020). Future Appointments Date Time Provider Department Center 02/12/2020 11:30 AM Eliana Quevedo MD GI [facility] 05/17/2020 1:10 PM [facility] 05/17/2020 1:40 PM Fernando Mckeon MD BONE [facility] 09/17/2020 8:30 AM Davion Samuel NP SLEEP [facility] 40 NL Thank you for allowing me to participate in the care of your patient. If you have any questions, feel free to contact me. Davion Samuel NP 09/15/2019 8:35 AM documented in this encounter Plan of Treatment Not on file documented as of this encounter Visit Diagnoses Diagnosis JALYN (obstructive sleep apnea)- Primary Obstructive sleep apnea (adult) (pediatric) documented in this encounter Orders General Supply Count Last Ordered Date First Or dered Date MISCELLANEOUS DME 1 09/15/2019 documented in this encounter Care Teams Genetic Counselor Relationship Specialty Start Date End Date Lanre Parekh DO PCP - General Family Medicine 01/23/19 documented as of this encounter
--- OUTSIDE RECORDS SUMMARY | 2024-07-09 05:24 | XMS_ITS | Encounter Summary ---
Author Organization [facility] Address [address] [place] [address] Phone Care Team Providers Care Technology Trainer Name Role Phone Lanre Parekh Primary Care Provide r Reason for Visit * Reason Comments Osteoporosis * Diagnostic Imaging (Routine) - Closed Specialty Diagnoses / Procedures Referred By Renay rivero Referred To Contact Diagnoses Low bone mass Procedures Dexa Axial Skeleton Bone Density 1 or 2 Site Jonathan Pardo MD [address] [place] [address] Phone: tel: fax: [facility] (All Locations) Referral ID Status Reason Start Date Expiration Date Visits Re quested Visits Authorized [id number] Closed 05/12/2019 11/20/2020 1 1 Encounter Details Date Type Department Care Team (Late st Contact Info) Description 05/17/2020 1:10 PM ADMINISTRATIVE OFFICE ASSISTANT Clinical Support [facility] Advanced Medicine 5th [place] [address] [place] [address] Low bone mass Social History Tobacco Use Types Packs/Day Years Used Date Smoking Tobacco: Never Smokeless Tobacco: Never Alcohol Use Standard Drinks/Week Comments Yes 0 (1 standard drink = 0.6 oz pur e alcohol) wine-rarely Sex and Gender Information Value Date Recorded Sex Assigned at Not on file Legal Sex Male 11:11 PM ADMINISTRATIVE OFFICE ASSISTANT Gender Identity Not on file Sexual Orientation Not on file documented as of this encounter Plan of Treatment Not on file documented as of this encounter Procedures Procedure Name Priority Date/Time Associated Diagnosis Comments DEXA AXIAL SKELETON BONE DENSITY 1 OR MORE SITES Schedule Routine, Read Routine (OP Routine) 05/17/2020 1:43 PM ADMINISTRATIVE OFFICE ASSISTANT Low bone mass documented in this encounter Results * Dexa Axial Skeleton Bone Density 1 or 2 Site (05/17/2020 1:43 PM ADMINISTRATIVE OFFICE ASSISTANT) Anatomical Region Laterality Modality Body N/A Radiographic Nancy ging Narrative 05/21/2020 11:29 AM ADMINISTRATIVE OFFICE ASSISTANT Patient Name: Nic Teran Date of : 1990 Date of scan: 05/17/2020 Bone mineral density was performed on a [employer] Densitometer. ?? Machine Cross-calibration and Precision studies have been performed with a least significant change of 0.024 g/cm at the spine, 0.020 g/cm at the total proximal femur, and 0.014g/cm at the forearm. HISTORY: ??This is a 29 y.o. male with a history of Crohn's disease and low bone mass. Currently on treatment with calcium and vitamin D. History of tobacco use: Social History Tobacco Use Smoking Status Never Smoker INDICATIONS: History of low bone mass. FINDINGS: BONE MINERAL DENSITY OF THE LUMBAR SPINE Bone Mineral Density (BMD) of the lumbar spine was measured from L1-L4 and the average density was calculated to be 0.918 gm/cm. This corresponds to a Z-score standard deviations from the mean of age and gender matched controls of -1.6. When compared to the previous study of 05/12/19 there has been a measured 0.021 gm/cm -2.2% decrease which is considered significant. BONE MINERAL DENSITY OF THE PROXIMAL FEMUR Bone Mineral Density (BMD) of the left hip total was found to be 0.750 gm/cm2. This corresponds to a Z-score standard deviations from the mean of age and gender matched controls of -1.8. Femoral neck is 0.574 gm/cm2 with a Z-score ??of -2.4. When compared to the previous study of 05/12/19 there has been no significant change noted. SUMMARY: Bone mineral density is below the expected range for age with a significant decrease noted since previous measurement. ADDITIONAL COMMENTS: If the patient has a history of a fragility fracture, a fracture that occurred with trauma equivalent to a fall from a standing position or less, then the diagnosis is osteoporosis. The risk of osteoporotic fracture increases approximately 2-fold for each 1.0 SD decrease in T-score. However, low bone density is not the only risk factor for fracture. Other factors include patient? s age, previous osteoporotic fracture or prior fracture as an adult, loss of height of greater than 2 inches, corticosteroid use, risk of falling, risk of injury, and family history of osteoporosis. Not everyone with low bone mineral density has osteoporosis. Osteomalacia and other metabolic bone disorders should also be considered where indicated. ??Patients who have osteoporosis should be evaluated for specific diseases and conditions (secondary causes) that may cause or contribute to bone loss. Consider repeating this study in 1-2 years to assess the patient? s response to treatment, if applicable. It is recommended that any follow up exam be performed on the same machine if possible for better accuracy. DEFINITIONS: Osteoporosis: ??BMD at or below -2.5 T-score Osteopenia (low bone mass): ??BMD between -1.0 and-2.5 T-score. The Bone Health Program adopts the following WHO definitions: Osteoporosis: ??BMD below -2.5 S.D. as compared to the BMD of young normal adults. Osteopenia or Low Bone Mass: ??BMD between -1.0 and -2.5 S.D. below the BMD of young normal adults. Normal Bone Density: ??BMD equal to or greater than -1.0 S.D. as compared to the BMD of young normal adults. References: 1) Red, Annals of Internal Medicine 114(11): ??919-923 (1990) 2) Lezama, Lancet 341 : 72-75 (1992) 3) Black, Journal Bone and Mineral Research 7(6): 633-8 (1991) 4) Wesley, Journal Bone and Mineral Research 8(10):1227-33 (1992) The history and data sections of the bone mineral density scan were prepared by Viri Pedraza who is accredited by the International Society of Clinical Densitometry. The overall patient assessment and scan interpretation were performed by Brendan Trammell M.D. who is certified by the International Society of Clinical Densitometry. [id number] us Jonathan Pardo MD IMG DXA PROCEDURES Fi nal Result documented in this encounter Visit Diagnoses Diagnosis Low bone mass documented in this encounter Care Teams Technology Trainer Relationship Specialty Start Date End Date Lanre Parekh DO PCP - General Family Medicine 01/23/19 documented as of this encounter
--- OUTSIDE RECORDS SUMMARY | 2024-07-09 05:24 | XMS_ITS | Encounter Summary ---
Author Organization [facility] Address [address] [place] [address] Phone Care Team Providers Care Stonecutter Name Role Phone Izabella Lanre Conway Primary Care Provide r Reason for Referral * (Routine) - Closed Specialty Diagnoses / Procedures Referred By Contsusanne t Referred To Contact Diagnoses JALYN (obstructive sleep apnea) Procedures Miscellaneous DME Davion Samuel NP [address] [place] [address] Phone: tel: fax: Referral ID Status Reason Start Date Expiration Date Visits Re quested Visits Authorized [id number] Closed 09/17/2020 10/17/2021 1 1 Encounter Details Date Type Department Care Team (Late st Contact Info) Description 09/17/2020 8:30 AM CDT Telemedicine [facility] Neuro Sleep [address] 6th [address] [place] [address] Davion Samuel NP [address] [place] [address] JALYN (obstructive sleep apnea) (Primary Dx) Social History Tobacco Use Types Packs/Day Years Used Date Smoking Tobacco: Never Smokeless Tobacco: Never Alcohol Use Standard Drinks/Week Comments Yes 0 (1 standard drink = 0.6 oz pur e alcohol) wine-rarely Sex and Gender Information Value Date Recorded Sex Assigned at Not on file 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 During the visit, I was located at home office in the [facility] [place] and the patient was located home in [place]. The session started at 8:30 am and ended at 9:00 am. In addition to the time spent during the session with the patient, I spent 5 minutes preparing to see the patient, 5 minutes counseling and educating the patient/family/caregiver, 5 minutesordering medications, tests, or procedures, 0 minutes referring and communicating with other healthcare professional, 15 minutes documenting clinical information in the electronic or other health [address], 0 minutes independently interpreting results and communicating the results to the patient/family/caregiver and 0 minutes on care coordination on the day of the visit. Total time spend on encounter on the day of the visit: 50 minutes. The patient has been informed that the visit may not be secure and acknowledged the information. It was explained to the patient they have the option of participating in a telephone or video visitduring the [facility] [place] [address] emergency. After being given an opportunity to ask questions about and discuss this type of visit, the patient verbally consented to proceeding with the telephone / video visit. The patient understands that this service replaces an office visit and they may be billed and/or responsible for any applicable copayments. Greater than 50% of any time I spent on the call/video was spent in counseling and/or coordination of care as documented in the note. Patient Name: NIC TERAN Medical Record Number (MRN): [id number] Date of (): 1990 Encounter Date: 09/17/2020 Chief Complaint Nic Teran is a 29 y.o. male seen today to establish care for JALYN. CHANDA 09/12/2019. HPI 29 y.o. patient with crohn's dz follows-up for JALYN that was diagnosed on 12/19/18 through his PCP's office. HST through [facility] diagnosis 12/19/18 ( Wt 170 lbs), AHI 5.2, RDI 11.7, AMIRA 0, O2N 89%. APAP 5-14 cm ordered through [facility]. Last seen on 09/12/2019, he was using his PAP with benefits. Mask was making some noise, order written to try new masks at [facility]. Today's f/u was over zoom video. Uses PAP nightly with benefits. Did not try new mask as discussed last year, current mask ( [employer]plus), remains with valve noise. He likes his PAP, denies snoring and witnessed apnea on PAP. Travels with PAP. On all nights, bedtime is 9:30-11 pm, rise time is 5:30 -6 am, and he takes 10 minutes to fall asleep. He wakes up sometimes 1-2 now vs 3-4 times during the night for no apparent reason. Weight is unchanged. [place] sleepiness scale at [facility] 09/22. Denies drowsy driving. Download from 08/17/20 to 09/15/20 (29/30 days) demonstrates nightly use of 6 hrs 34 minutes, % nights used >4 hrs is 90%. Machine set on 5-14 cm, AHI 1.5, mean 7.1, peak pressure 10.9 , pressure 95th percentile is 9.7 cm, mask leak 95th percentile is 2.4L/ mins. Allergies Allergen Reactions ??? Flagyl [Metronidazole] Other (See comments) Neuropathy Current Outpatient Medications Medication Sig Dispense Refill ??? adalimumab (Humira,CF, Pen) 40 mg/0.4 mL pen injector kit Inject 0.4 mL (40 mg total) under theskin every 14 (fourteen) days Safety labs required every 3 months for Med refills, due 10/2020 2 each 2 ??? allopurinoL (ZYLOPRIM) 100 mg tablet Take 1 tablet (100 mg total) by mouth daily 90 tablet 0 ??? balsalazide (COLAZAL) 750 mg capsule Take 3 capsules three times daily. 270 capsule 11 ??? colestipoL (COLESTID) 1 gram tablet Take 1 tab PO 4 time daily ( with meals and at bedtime) 120tablet 11 ??? docosahexaenoic acid-epa 120-180 mg capsule ??? folic acid (FOLVITE) 1 mg tablet Take 1 tablet (1 mg total) by mouth daily 90 tablet 3 ??? L.acid/L.casei/B.bif/B.arf/FOS (PROBIOTIC BLEND ORAL) Take 1 tablet by mouth daily ??? mercaptopurine (PURINETHOL) 50 mg tablet Take 1,5 tabs PO daily -Safety labs required every 3 months for Med refills, due 10/2020 132 tablet 0 ??? multivitamin capsule Take 1 capsule by mouth every morning. ??? turmeric, bulk, 100 % powder Take 1,500 mg by mouth No current facility-administered medications for this visit. [...] HISTORY 12/2017 ileocecal resection ??? VASECTOMY 2018 Family History Problem Relation Age of Onset ??? Hypertension Mother Family history of hypertension - (Added by TW Conv) ??? Kidney failure Mother Family history of renal failure - (Added by TW Conv) ??? Hypertension Father Family history of hypertension - (Added by TW Conv) ??? 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 Review of Systems Sinus congestion, coughing or wheezing. All other systems are negative except as per the HPI. Vital Signs n/a Physical Exam: limited by telehealth. GENERAL EXAM General: Well developed, well nourished, in no acute distress. HEENT: Lungs: Cardiovascular: Abdomen: Extremities: Integumentary: Lymph nodes: NEUROLOGIC EXAM: Mental Status Alert, oriented, normal spontaneous fluent speech with full comprehension. Cranial nerves Extraocular movements full and conjugate, face strong and symmetric, palate rise andtongue protrusion symmetric. Motor Normal fine finger movements. No tremor. Sensory Coordination and gait Normal stance and gait. Assessment 29 y.o. male with mild JALYN who follows-up [...] try different type of mask at the [employer], order sent. We discussed JALYN and its treatments including positive airway pressure, oral prosthesis, surgery, Provent adhesive nasal valves and weight loss. We discussed how untreated JALYN can cause unrefreshing sleep and excessive daytime sleepiness, as well as how it contributes over the equipment operator intermodal yard to cardiovascular risk, recalcitrant hypertension and difficulty with weight loss . Plan 1-Mild JALYN -Continue APAP 5-14 cm with all sleep. Try different mask at DME: order written for [facility] -RTC in 1 year or sooner if needed. Obesity- ?? Weight loss through diet and exercise Advised patient to never drive while drowsy. He verbalizes understanding. No follow-ups on file. Future Appointments Date Time Provider Department Center 09/17/2020 8:30 AM Davion Samuel NP SLEEP CTR 40 NL 02/17/2021 9:45 AM Eliana Quevedo MD GI CAM [facility]C [facility] 05/30/2021 2:10 PM MARINE IM BONE TECH CAM BONE [facility] 05/30/2021 2:40 PM Fernando Mckeon MD BONE CAM [facility] Thank you for allowing me to participate in the care of your patient. If you have any questions, feel free to contact me. Davion Samuel NP 09/17/2020 8:27 AM documented in this encounter Plan of Treatment Not on file documented as of this encounter Visit Diagnoses Diagnosis JALYN (obstructive sleep apnea)- Primary Obstructive sleep apnea (adult) (pediatric) documented in this encounter Orders General Supply Count Last Ordered Date First Or dered Date MISCELLANEOUS DME 1 09/17/2020 documented in this encounter Care Teams Stonecutter Relationship Specialty Start Date End Date Lanre Parekh DO PCP - General Family Medicine 01/23/19 documented as of this encounter
--- OUTSIDE RECORDS SUMMARY | 2024-07-09 05:24 | XMS_ITS | Encounter Summary ---
Author Organization [facility] Address [address] [place] [address] Phone Care Team Providers Care Developer Analyst Name Role Phone Lanre Parekh Primary Care Provide r Encounter Details Date Type Department Care Team (Late st Contact Info) Description 10/01/2020 Orders Only [facility] Gastroenterology 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 Gender Identity Not on file Sexual Orientation Not on file documented as of this encounter Plan of Treatment Not on file documented as of this encounter Procedures Procedure Name Priority Date/Time Associated Diagnosis Comments ADALIMUMAB LEVEL AND ANTI-DRUG ANTIBODY FOR IBD Routine 02/24/2021 7:30 AM CDT Crohn's disease of both small and large intestine without complication (CMS/HCC) (HCC) High risk medications (not anticoagulants) long-term use COPY(IES) SENT TO: Routine 02/24/2021 7 :30 AM CDT documented in this encounter Results * COPY(IES) SENT TO: (02/24/2021 7:30 AM CDT) COPY(IES) SENT TO: [facility] Comment: ?[facility] ?COPY TO ACCOUNT ?[id number] ?[place] [address] 02/24/2021 7:30 AM CDT 02/24/2021 7:31 AM CDT Narrative [facility] - 03/06/2021 10:26 AM CDT FASTING:NO FASTING: NO us Eliana Quevedo MD LAB BLOOD ORDERABLE S Final Result [facility] * Adalimumab Level and Anti-Drug Antibody for IBD (02/24/2021 7:30 AM CDT) Adalimumab Level, IBD 9.1 mcg/mL [facility] [place] [place], Adalimumab ADA, IBD <10 <10 AU [facility] [place] [place], Interpretation SEE NOTE [facility] [place] [place], Comment: The [place] Gastro[employer] Association recommends optimal adalimumab trough concentration of 7.5 mcg/mL or greater in patients with active IBD. Data from separate clinical studies suggest an optimal adalimumab trough concentration greater than 4.5 mcg/mL or 8-12 mcg/mL. Subtherapeutic adalimumab levels may be due to a patient not yet achieving a steady state trough level early in therapy, inadequate dosing, a dosing interval that is too long, or accelerated adalimumab clearance. Accelerated adalimumab clearance may be explained by the presence of adalimumab anti-drug antibody or rheumatoid factor in the patient's serum, or may be caused by other diseases that indirectly lead to immunoglobulin loss (i.e. kidney disease, protein-losing gastroenteropathy). If adalimumab level is subtherapeutic but total adalimumab anti-drug antibody is not detected: Patients with a subtherapeutic adalimumab trough level, but no anti-drug antibody, may benefit from an increased adalimumab dose. If adalimumab level is subtherapeutic and total adalimumab anti-drug antibody is detected: Detectable serum adalimumab anti-drug antibody may cause accelerated adalimumab clearance leading to reduced trough levels and a compromised clinical response. Such patients are more likely to benefit from a switch in biologic therapy than from an increase in adalimumab dose. If adalimumab level is therapeutic and total adalimumab anti-drug antibody is not detected: In patients who do not respond or who lose their clinical response, mucosal inflammation is likely to be driven by a process that is not TNF alpha dependent. A switch to a different class of therapy should be considered. If adalimumab level is therapeutic and total adalimumab anti-drug antibody is detected: If the patient is responding clinically, the detected anti-drug antibody may not be clinically significant because the detected anti-drug antibody may not be functional or the level is inadequate to accelerate adalimumab clearance. Anti-drug antibody may disappear over time or increase, and, if increased, may cause subtherapeutic adalimumab levels and a loss of response in the future. Patients with a loss of adalimumab response despite therapeutic trough levels may benefit from a switch to a different class of therapy. This information is provided for informational purposes only and is not intended as medical advice. A physician's test selection and interpretation, diagnosis, and patient management decisions should be based on his/her education, clinical expertise, and assessment of the patient. The treating healthcare professional should refer to the arts and crafts instructor's approved labeling for prescribing, warnings, side effects and other important information. Comment SEE NOTE [employer] [facility], Comment: This test was developed and its analytical performance characteristics have been determined by [employer] [facility]. It has not been cleared or approved by FDA. This assay has been validated pursuant to the CLIA regulations and is used for clinical purposes. For additional information, please refer to https://education.Se[employer].Attune RTD/faq/JZZ900 (This link is being provided for informational/educational purposes only.) Blood specimen (specimen) 02/24/2021 7:30 AM CDT 02/24/2021 7:31 AM CDT Narrative [facility] - 03/06/2021 10:26 AM CDT FASTING:NO FASTING: NO us Eliana Quevedo MD LAB BLOOD ORDERABLE S Final Result [facility] [place] [place], [address] [place] [address] documented in this encounter Visit Diagnoses Diagnosis Crohn's disease of both small and large intestine without complication (CMS/HCC) (HCC)- Primary High risk medications (not anticoagulants) long-term use Encounter for long-term (current) use of other medications documented in this encounter Care Teams Developer Analyst Relationship Specialty Start Date End Date Lanre Parekh DO PCP - General Family Medicine 01/23/19 documented as of this encounter
--- OUTSIDE RECORDS SUMMARY | 2024-07-09 05:24 | XMS_ITS | Encounter Summary ---
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 Gender Identity Not on file Sexual Orientation Not on file documented as of this encounter Ordered Prescriptions Prescription Sig Dispense Quantity Refills Last Filled Start Date End Date colestipoL (COLESTID) 1 gram tabletIndications:D iarrhea, unspecified type Take 1 tab PO 4 time daily ( with meals and at bedtime) 120 tablet 11 10/08/2020 07/28/2022 documented in this encounter Plan of Treatment Not on file documented as of this encounter Visit Diagnoses Diagnosis Diarrhea, unspecified type documented in this encounter Discontinued Medications Medication Sig Discontinue Reason Start Date End Da te colestipoL (COLESTID) 1 gram tabletIndications:Diarrhe a, unspecified type Take 1 tab PO 4 time daily ( with meals and at bedtime) Reorder 08/04/2019 10/08/2020 documented as of this encounter Care Teams Cognos Report Developer Relationship Specialty Start Date End Date Lanre Parekh DO PCP - General Family Medicine 01/23/19 documented as of this encounter
--- OUTSIDE RECORDS SUMMARY | 2024-07-09 05:24 | XMS_ITS | Encounter Summary ---
Author Organization [facility] Address [address] [place] [address] Care Team Providers Care Die Maker Bench Stamping Name Role Phone Lanre Parekh Primary Care Provide r Reason for Visit * Auth/Cert Specialty Diagnoses / Procedures Referred By Contac t Referred To Contact Diagnoses Crohn's disease of both small and large intestine without complication (CMS/HCC) (HCC) Crohn's disease of both small and large intestine without complication (CMS/HCC) (HCC) [K50.80] Procedures OK COLONOSCOPY FLX DX W/COLLJ SPEC WHEN PFRMD COLONOSCOPY Referral ID Status Reason Start Date Expiration Date Visits Re quested Visits Authorized [id number] 1 1 Encounter Details Date Type Department Care Team (Late st Contact Info) Description 01/23/2022 9:29 AM CDT - 01/23/2022 12:18 PM CDT Hospital Encounter [facility] Endoscopy [address] [place] [address] Eliana Quevedo MD [address] [facility] [address] [place] [address] Crohn's disease of both small and large intestine with other complication (HCC) (Primary Dx); History of high risk [...] on file 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 4 each 2 10/03/2021 allopurinoL (ZYLOPRIM) 100 mg tabletIndications :Crohn's disease [...] Quevedo MD docosahexaenoic acid-epa 120-180 mg capsule Provider, MD Ryan ergocalciferol (VITAMIN D) 50,000 unit capsule TAKE ONE CAPSULE BY MOUTH EVERY 14 DAYS 11/07/21 Fernando Mckeon MD folic acid (FOLVITE) 1 mg tablet Take 1 tablet (1 mg total) by mouth daily 10/11/20 Eliana Quevedo MD L.acid/L.casei/B.bif/B.raf/FOS (PROBIOTIC BLEND ORAL) Take 1 tablet by mouth daily ProviderRyan MD mercaptopurine (PURINETHOL) 50 mg tablet Take 1 tablet (50 mg total) by mouth daily Safety labs required every 3 months for med refills, next labs due in 03/2022. Repeat metabolites to be drawn in approx 4 weeks. Please have this drawn at your local [facility] the week of 01/16/2022. 12/19/21 Eliana Quevedo MD multivitamin capsule Take 1 capsule by mouth every morning. ProviderRyan MD sildenafiL (VIAGRA) 100 mg tablet Take [...] Male Attending MD: Eliana Quevedo M.D. Room: [facility] ENDOSCOPY ROOM 01 Note Status: Finalized Procedure: [...] scope was passed under direct vision. The [id number] was introduced through the anus and advanced [...] hours - Please call the Nurse Coordinator: [phone] After hours, evening, nights, weekends and holidays - Please call the hospital railroad crane operator at and ask for the GI fellow chaperon. Attending Participation: I personally performed the entire [...] Male Attending MD: Eliana Quevedo M.D. Room: [facility] ENDOSCOPY ROOM 01 Note Status: Finalized Procedure: [...] The scope was passed under direct vision.The [id number] was introduced through the anusand advanced to [...] business hours - Please call theNurse Coordinator: [phone] After hours, evening, nights, weekends and holidays- Please call the hospital railroad crane operator at and ask for the GI fellow chaperon. Attending Participation: I personally performed the entire procedure. Electronically signed by Eliana Quevedo M.D. Eliana Quevedo M.D. 01/23/2022 11:30:52 AM Number of Addenda: 0 Note Initiated On: 01/23/2022 10:59 AM Eliana Quevedo MD ENDOSCOPY PROCEDURE S Final Result * Thiopurine metabolites (01/23/2022 10:09 AM CDT) Thiopurine metabolites See scanned report [facility] Blood 01/23/2022 10:0 9 AM CDT 01/31/2022 3:43 PM CDT Eliana Quevedo MD LAB BLOOD ORDERABLE S Final Result [facility] [address] [facility] [place] [address] documented in this encounter Visit Diagnoses Diagnosis [...] before and after each use. , Indications: FlushingIndications:Flushin g sodium chloride 0.9% infusion 30 mL/hr, intravenous, [...] Yeimy Vincent RN)1105 (Rate/Dose Verify - Provider: Vtia Jaimes CRNA)1618 (Due: Stopped) PRN Medication Order [...] Date methylene blue (PROVAYBLUE) (0.5%) injection 1 01/23/2022 sodium chloride 0.9% flush 0.5-20 mL 1 12/31 documented in this encounter Care Teams Die Maker Bench Stamping Relationship Specialty Start Date End Date Lanre Parekh DO PCP - General Family Medicine 01/23/19 documented as of this encounter
--- OUTSIDE RECORDS SUMMARY | 2024-07-09 05:24 | XMS_ITS | Encounter Summary ---
Author Organization [facility] Address [address] [place] [address] Phone Care Team Providers Care Vice President Quality Assurance Name Role Phone Lanre Parekh DO Primary Care Provide r Encounter Details Date Type Department Care Team (Latest Contact Info) Description 09/12/2019 Orders Only [facility] SLEEP Scanning, Provider Social History Tobacco Use Types Packs/Day Years Used Date Smoking Tobacco: Never Smokeless Tobacco: Never Alcohol Use Standard Drinks/Week Comments Yes 0 (1 standard drink = 0.6 oz pur e alcohol) wine-rarely Sex and Gender Information Value Date Recorded Sex Assigned at Not on file 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 No / Unsure 09/12/2019 9:18 AM CDT documented as of this encounter Plan of Treatment Not on file documented as of this encounter Procedures Procedure Name Priority Date/Time Associated Diagnosis Comments SLEEP LAB/STUDY - RESULT 09/12/2019 documented in this encounter Results * SLEEP LAB/STUDY - RESULT (09/12/2019) Provider Scanning Final Result documented in this encounter Visit Diagnoses Not on filedocumented in this encounter Care Teams Vice President Quality Assurance Relationship Specialty Start Date End Date Lanre Parekh DO PCP - General Family Medicine 01/23/19 documented as of this encounter
--- OUTSIDE RECORDS SUMMARY | 2024-07-09 05:24 | XMS_ITS | Encounter Summary ---
Author Organization [facility] Address [address] [place] [address] Phone Care Team Providers Care Mobile Home Installer Name Role Phone Lanre Parekh DO Primary Care Provide r Reason for Visit * Consultation (Routine) - Closed Specialty Diagnoses / Procedures Referred By Renay rivero Referred To Contact Urology Diagnoses Scrotal pain Lanre Parekh DO [address] [place] [address] Phone: tel: fax: [facility] (All Locations) Referral ID Status Reason Start Date Expiration Date V isits Requested Visits Authorized [id number] Closed Specialty Services Required 12/29/2021 01/28/2023 99 99 Encounter Details Date Type Department Care Team (Late st Contact Info) Description 01/17/2022 1:00 PM CDT Office Visit [facility] Urology [address] [facility] 11[address] [place] [address] [place] [address] Simona Carrillo NP [address] [place] [address] Scrotal pain (Primary Dx); Erectile dysfunction, unspecified erectile dysfunction type Social History Tobacco Use Types Packs/Day [...] on file 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 Gender Identity Not on file Sexual Orientation Not on file documented as of this encounter Last Filed Vital Signs Vital Sign Reading Time Taken Comments Blood Pressure 120/72 01/17/2022 1:21 PM CDT Pulse 68 01/17/2022 1:21 PM CDT Temperature 36.2 ??C (97.2 ??F) 01/17/2022 1:21 PM CD T Respiratory Rate - - Oxygen Saturation - - Inhaled Oxygen Concentration - - Weight 81.6 kg (180 lb) 01/17/2022 1:21 PM CDT Height 172.7 cm (5' 8 ) 01/17/2022 1:21 PM CDT Body Mass Index 27.37 01/17/2022 1:21 PM CDT documented in this encounter Ordered Prescriptions Prescription Sig Dispense Quantity Refills Last Filled Start Date End Date sildenafiL (VIAGRA) 100 mg tabletIndications: Erectile dysfunction, unspecified erectile dysfunction type Take 1/2 or 1 tablet ONE hour prior to activity on an empty stomach daily PRN 6 tablet 11 01/17/2022 documented in this encounter Progress Notes * Simona Marie NP - 01/17/2022 1:00 PM CDT Subjective/Objective Patient ID: Nic Teran is a 31 y.o. male. Chief Complaint No chief complaint on file. HPI Nic Teran is a 31 y.o. male with hx of Crohn's Disease and JALYN who was requested by Dr.Zachary Mcdaniel for evaluation of Scrotal Pain. 1) Scrotal pain His scrotal pain began 3-4 month(s) ago. Pain is present in bilateral scrotum (R>L) and describeas dull consistant pain, difficult to walk sometimes when this occurs. There is no radiation of pain or aggravating factors. There is maybe associated injury or trauma, he has small toddlers. There is scrotal swelling on the right side. There is no associated LUTS. He had prior vasectomy with Dr. Aguirre in 10/2017. He did note 1 episode of hematospermia in 09/2021. Patient denies hematuria, dysuria, flank pain, fevers, chills, or unintentional weight loss. Patient denies family history of malignancy including testicular cancer. 2) ED The ED began 4 year(s) ago. His comorbidities are listed above. He is unsure of his Testosterone level. He has tried Blue Chew OTC (Sildenafil) that does help. Patient reports good libido. He is generally pretty active, goes to gym 4x/day with 45mins of exercise. Never smoker. Review of Systems ROS has been reviewed and can be found in the chart. The patient's past medical history, social history, and family history have been reviewed and are listed on their questionnaire and chart. Past Medical History: has a past medical history of Allergic rhinitis, Anemia, Crohn's disease (CMS/HCC) ([facility]) (2004), GERD (gastroesophageal reflux disease), Iritis, and JALYN on CPAP. He has no past medical history of PONV (postoperative nausea and vomiting). Past Surgical History: Past Surgical History: Procedure Laterality Date ??? OTHER SURGICAL HISTORY 12/2017 ileocecal resection ??? VASECTOMY 2017 Medication: Current Outpatient Medications on File Prior to Visit Medication Sig Dispense Refill ??? adalimumab (Humira,CF, Pen) 40 mg/0.4 mL pen injector kit Inject 0.4 mL (40 mg total) under theskin every 7 days Safety labs required every 3 months for med refills, labs due 10/2021. 4 each 2 ??? allopurinoL (ZYLOPRIM) 100 mg tablet Take 1 tablet (100 mg total) by mouth daily 30 tablet 1 ??? balsalazide (COLAZAL) 750 mg capsule Take 3 capsules three times daily. (Patient taking differently: Take 2 capsules three times daily.) 270 capsule 11 ??? colestipoL (COLESTID) 1 gram tablet Take 1 tab PO 4 time daily ( with meals and at bedtime) (Patient taking differently: Take 1 g by mouth daily Take 1 tab PO 4 time daily ( with meals and at bedtime)) 120 tablet 11 ??? docosahexaenoic acid-epa 120-180 mg capsule (Patient not taking: No sig reported) ??? ergocalciferol (VITAMIN D) 50,000 unit capsule TAKE ONE CAPSULE BY MOUTH EVERY 14 DAYS 25 capsule 3 ??? folic acid (FOLVITE) 1 mg tablet Take 1 tablet (1 mg total) by mouth daily 90 tablet 3 ??? L.acid/L.casei/B.bif/B.raf/FOS (PROBIOTIC BLEND ORAL) Take 1 tablet by mouth daily ??? mercaptopurine (PURINETHOL) 50 mg tablet Take 1 tablet (50 mg total) by mouth daily Safety labsrequired every 3 months for med refills, next labs due in 03/2022. Repeat metabolites to be drawn inapprox 4 weeks. Please have this drawn at your local [facility] the week of 01/16/2022. 30 tablet 1 ??? multivitamin capsule Take 1 capsule by mouth every morning. ??? turmeric, bulk, 100 % powder Take 1,500 mg by mouth No current facility-administered medications on file prior to visit. Allergies: Allergies Allergen Reactions ??? Flagyl [Metronidazole] Other (See comments) Neuropathy Social History: Social History Tobacco Use ??? Smoking status: Never Smoker ??? Smokeless tobacco: Never Used Substance and Sexual Activity ??? Drug use: Not Currently Types: Marijuana ??? Sexual activity: Defer Alcohol Use: Not on file Family History: Family History Problem Relation Age of Onset ??? Hypertension Mother Family history of hypertension - (Added by TW Conv) ??? Kidney failure Mother Family history of renal failure - (Added by TW Conv) ??? Hypertension Father Family history of hypertension - (Added by TW Conv) ??? Ulcerative colitis Mother's Sister Physical Exam Constitutional: General: He is not in acute distress. Appearance: Normal appearance. He is well-developed. Eyes: General: No scleral icterus. Conjunctiva/sclera: Conjunctivae normal. Cardiovascular: Rate and Rhythm: Normal rate. Pulmonary: Effort: Pulmonary effort is normal. No respiratory distress. Abdominal: Tenderness: There is no guarding. Genitourinary: Comments: Male : His phallus is normal. Glans is normal. Urethral meatus is normal. Left Epididymis and bilateral cord is normal. There is a cyst at head of epididymis, nontender. Scrotum is normal. Genital Integument is without visible lesions. Lymphatic: inguinal nodes are not palpable bilaterally. Testes descended bilaterally with no testicular mass. (Patient declines a garment cutter) Musculoskeletal: General: Normal range of motion. Cervical back: Normal range of motion. Neurological: Mental Status: He is alert and oriented to person, place, and time. Psychiatric: Behavior: Behavior normal. Results Results for orders placed or performed in visit on 01/17/22 POCT urinalysis dipstick Result Value Ref Range Glucose, ur, POC Negative Negative MG/DL Ketones, ur, POC Negative Negative Blood, ur, POC Negative Negative pH, ur, POC 6.0 5.0 - 8.0 Protein, ur, POC Trace (A) Negative Nitrite, ur, POC Negative Negative Leukocytes, ur, POC Negative Negative Lot Number 0 Chemistry Lab Results Component Value Date SODIUM 140 05/12/2019 POTASSIUM 4.1 05/12/2019 CHLORIDE 104 05/12/2019 CO2 25 05/30/2021 ANIONGAP 8 05/12/2019 BUNSER 14 05/12/2019 CREATININE 0.85 05/30/2021 GLUCOSE 104 (H) 05/30/2021 CALCIUM 9.8 05/30/2021 BILITOT 0.7 12/05/2021 PROTEIN 7.9 12/05/2021 ALBUMIN 4.6 12/05/2021 ALKPHOS 62 12/05/2021 AST 22 12/05/2021 ALT 24 12/05/2021 PHOS 4.2 04/30/2017 MAGNESIUM 2.0 01/12/2018 BP 120/72 Pulse 68 Temp 36.2 ??C (97.2 ??F) Ht 172.7 cm (5' 8 ) Wt 81.6 kg (180 lb) BMI 27.37 kg/m?? Assessment/Plan Diagnoses and all orders for this visit: Scrotal pain (N50.82) (Primary) - Ambulatory referral to Urology - POCT urinalysis dipstick I suspect he has a right head epididymal cyst. A epididymal cyst is a fluid filled pocket and a benign finding. Typically, there are no symptoms associated with the epididymal cyst aside from the swelling. However, if persistent pain is present or if the epididymal cyst is getting too big and in the way of activity of daily living, then surgical excision can be an option. - Recommend scrotal elevation, and cold compress as needed for pain. He has been taking Tylenol forpain, unable to take NSAIDs d/t Crohns. - Will schedule a Scrotal US Erectile dysfunction, unspecified erectile dysfunction type (N52.9) I gave him brochure and information on Erectile Dysfunction (ED). 80% of ED is due to physical causes such as: - Vascular insufficiency secondary to CAD, HTN, DM, high cholesterol, smoking, and drug abuse - Disease that effects the nerves such as MS, CVA, Parkinson's disease, etc. - Pelvic injury or surgery such as prostatectomy, cystectomy, SCI, fractures, radiation, etc, - Certain medications like antidepressants and betablockers 20% of ED is due to psychogenic causes such as anxiety, stress, or depression. I discussed all the various treatment options for ED including PDE5, EDIE, penile rings, Mchenry, penile injections, shockwave therapy, and IPP. He elects to try: - sildenafiL (VIAGRA) 100 mg tablet; Take 1/2 or 1 tablet ONE hour prior to activity on an empty stomach daily PRN. Discussed with patient the direction, use, and common side effects for this medication. He will check: - Testosterone; Future Follow up in 6-8 weeks for office or telehealth visit. documented in this encounter Plan of Treatment Not on file documented as of this encounter Procedures Procedure Name Priority Date/Time Associated Diagnosis Comments TOTAL TESTOSTERONE Routine 01/17/2022 2: 44 PM CDT Erectile dysfunction, unspecified erectile dysfunction type POCT URINALYSIS DIPSTICK Routine 01/17/2022 1:23 PM CDT Scrotal pain documented in this encounter Results * Testosterone (01/17/2022 2:44 PM CDT) Testosterone 327 250 - 827 ng/dL [facility] Blood specimen (specimen) 01/17/2022 2:44 PM CDT 01/17/2022 2:44 PM CDT Kongkeo Thiky Gerardo ROLL TESTER LAB BLOOD ORDERABLES Fi nal Result [facility] [address] [facility] [place] [address] * (ABNORMAL) POCT urinalysis dipstick (01/17/2022 1:23 PM CDT) Glucose, ur, POC Negative Negative MG/DL Ketones, ur, POC Negative Negative Blood, ur, POC Negative Negative pH, ur, POC 6.0 5.0 - 8.0 Protein, ur, POC Trace(A) Negative Nitrite, ur, POC Negative Negative Leukocytes, ur, POC Negative Negative Lot Number 0 Urine 01/17/2022 1:23 PM CDT Simona Carrillo ROLL TESTER POINT OF CARE TEST ALICJA VALLEJO Final Result documented in this encounter Visit Diagnoses Diagnosis Scrotal pain- Primary Unspecified disorder of male genital organs Erectile dysfunction, unspecified erectile dysfunction type documented in this encounter Orders Outpatient Referral Count Last Ordered Date Fir st Ordered Date AMB REFERRAL TO UROLOGY 1 01/17/2022 documented in this encounter Care Teams Mobile Home Installer Relationship Specialty Start Date End Date Lanre Parekh DO PCP - General Family Medicine 01/23/19 documented as of this encounter
--- OUTSIDE RECORDS SUMMARY | 2024-07-09 05:24 | XMS_ITS | Encounter Summary ---
Author Organization 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 Gender Identity Not on file Sexual Orientation Not on file documented as of this encounter Ordered Prescriptions Prescription Sig Dispense Quantity Refills Last Filled Start Date End Date folic acid (FOLVITE) 1 mg tabletIndications: Crohn's disease of both small and large intestine with intestinal obstruction (HCC) Take 1 tablet (1 mg total) by mouth daily 90 tablet 3 10/11/2020 02/27/2022 documented in this encounter Plan of Treatment [...] (1 mg total) by mouth daily Reorder 05/24/2020 10/11/2020 documented as of this encounter Care Teams Medical Coding Auditor Relationship Specialty Start Date End Date Lanre Parekh DO PCP - General Family Medicine 01/23/19 documented as of this encounter
--- OUTSIDE RECORDS SUMMARY | 2024-07-09 05:24 | XMS_ITS | Encounter Summary ---
Author Organization [facility] Address [address] [place] [address] Care Team Providers Care Professor Of Political Science Name Role Phone Lanre Paerkh DO Primary Care Provide r Encounter Details Date Type Department Care Team (Late st Contact Info) Description 09/02/2019 Orders Only [facility] [address] [facility] [place] [address] Eliana Quevedo MD [address] [facility] [address] [place] [address] Crohn's disease of small and large intestines with complication (CMS/HCC); High risk medications (not anticoagulants) long-term use Social History Tobacco Use Types Packs/Day Years Used Date Smoking Tobacco: Never Smokeless Tobacco: Never Alcohol Use Standard Drinks/Week Comments Yes 0 (1 standard drink = 0.6 oz pur e alcohol) wine-rarely Sex and Gender Information Value Date Recorded Sex Assigned at Not on file 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
--- OUTSIDE RECORDS SUMMARY | 2024-07-09 05:24 | XMS_ITS | Encounter Summary ---
Author Organization [facility] Address [address] [place] [address] Phone Care Team Providers Care Mess Cook Name Role Phone Lanre Parekh Primary Care Provide r Encounter Details Date Type Department Care Team (Late st Contact Info) Description 12/19/2021 Orders Only [facility] Gastroenterology [address] Medicine 12th [place] [address] [place] [phone] Mame Landrum LPN History of high risk medication treatment (Primary Dx); Crohn's disease of both small and large [...] on file Legal Sex Male 11:11 PM CLIENT ACCOUNT SPECIALIST Gender Identity Not on file Sexual Orientation Not on file documented as of this encounter Ordered Prescriptions Prescription Sig Dispense Quantity Refills Last Filled Start Date End Date allopurinoL (ZYLOPRIM) 100 mg tabletIndications: Crohn's disease of both small and large intestine with intestinal obstruction (HCC) Take 1 tablet (100 mg total) by mouth daily 30 tablet 1 12/19/2021 3 mercaptopurine (PURINETHOL) 50 mg tabletIndications: Crohn's Disease Take 1 tablet (50 mg total) by mouth daily Safety labs required every 3 months for med refills, next labs due in 03/2022. Repeat metabolites to be drawn in approx 4 weeks. Please have this drawn at your local [facility] the week of 01/16/2022. 30 tablet 1 12/19/2021 3 documented in this encounter Progress Notes * Mame Landrum LPN - 12/19/2021 12:57 PM CDT Metabolites results from 12/12/2021: 6-TG 481 (elevated) and 6-MMP <500. Done on 6-MP 75 mg/d with Allopurinol 100 mg/d. Current wt: [address] Quevedo, Decrease to 50 mg 6MP daily (at 75 mgnow). Pt due for refills, new 6-MP script (w/ dose change) and Allopurinol sent in to pt's local pharmacy. Repeat metabolites due in approx 4 weeks (~ the week of 01/16/2022). Repeat thiopurine metabolites order placed for [facility]. Reminder set for follow up. Pt notified. documented in this encounter Plan of Treatment Not on file documented as of this encounter Procedures Procedure Name Priority Date/Time Associated Diagnosis Comments COPY(IES) SENT TO: Routine 01/17/2022 2: 45 PM CDT THIOPURINE METABOLITES Routine 01/17/2022 2:45 PM CDT Crohn's disease of both small and large intestine with intestinal obstruction (HCC) History of high risk medication treatment documented in this encounter Results * COPY(IES) SENT TO: (01/17/2022 2:45 PM CDT) COPY(IES) SENT TO: [facility] Comment: ?[facility] ?COPY TO ACCOUNT ?[id number] ?[place] [address] 01/17/2022 2:45 PM CDT 01/17/2022 2:45 PM CDT Eliana Quevedo MD LAB BLOOD ORDERABLE S Final Result Performing Organization Address [facility] Co de Phone Number [facility] * Thiopurine metabolites (01/17/2022 2:45 PM CDT) 6-TG, bld 325 235 - 400 pmol/8x10( 8)RBC [facility] Comment: This test was developed and its analytical performance characteristics have been determined by [facility]. It has not been cleared or approved by the FDA. This assay has been validated pursuant to the CLIA regulations and is used for clinical purposes. 6 MMP <500 <5700 pmol/8x10( 8)RBC [facility] Comment: These results are useful in [...] analytical performance characteristics have been determined by [facility]. It has not been cleared or approved by the FDA. This assay has been validated pursuant to the CLIA regulations and is used for clinical purposes. Blood specimen (specimen) 01/17/2022 2:45 PM CDT 01/17/2022 2:45 PM CDT Eliana Quevedo MD LAB BLOOD ORDERABLE S Final Result Performing Organization Address City/[facility]/ZIP Co de Phone Number [facility] [address] [place] [address] documented in this encounter Visit Diagnoses Diagnosis History of high risk medication treatment- Primary Crohn's disease of both small and large intestine with intestinal obstruction (HCC) documented in this encounter Discontinued Medications Medication Sig Discontinue Reason Start Date End Da te mercaptopurine (PURINETHOL) 50 mg tabletIndications:Crohn' s Disease Take 1.5 tablets (75 mg total) by mouth daily Safety labs required every 3 months for med refills, next labs due in 10/2021. Reorder 08/23/2021 12/19/2021 allopurinoL (ZYLOPRIM) 100 mg tabletIndications:Crohn' s disease of both small and large intestine with intestinal obstruction (HCC) Take 1 tablet (100 mg total) by mouth daily Reorder 08/23/2021 12/19/2021 documented as of this encounter Care Teams Mess Cook Relationship Specialty Start Date End Date Lanre Parekh DO PCP - General Family Medicine 01/23/19 documented as of this encounter
--- OUTSIDE RECORDS SUMMARY | 2024-07-09 05:24 | XMS_ITS | Encounter Summary ---
Author Organization [facility] Address [address] [place] [address] Phone Care Team Providers Care Checkering Machine Operator Name Role Phone Lanre Parekh Primary Care Provide r Encounter Details Date Type Department Care Team (Late st Contact Info) Description 05/30/2021 3:20 PM SHORE HAND DREDGE OR BARGE Lab [facility] Endocrinology Metabolism and Lipid [address] [facility] Medicine 5th [place] [address] [place] [address] Low bone mass Social History Tobacco Use [...] on file Legal Sex Male 11:11 PM SHORE HAND DREDGE OR BARGE Gender Identity Not on file Sexual Orientation Not on file documented as of this encounter Plan of Treatment Not on file documented as of this encounter Procedures Procedure Name Priority Date/Time Associated Diagnosis Comments VITAMIN D 25 HYDROXY Routine 05/30/2021 3:32 PM SHORE HAND DREDGE OR BARGE Low bone mass PTH Routine 05/30/2021 3:32 PM SHORE HAND DREDGE OR BARGE Low bone mass COMPREHENSIVE METABOLIC PANEL Routine 05/30/2021 3:32 PM SHORE HAND DREDGE OR BARGE Low bone mass documented in this encounter Results * Vitamin D 25 hydroxy (05/30/2021 3:32 PM SHORE HAND DREDGE OR BARGE) Pathologist [facility] Vitamin D 31.8 30.0 - 100.0 ng/mL [facility] Comment: VITAMIN D DEFICIENCY = LESS THAN or EQUAL TO 20 ng/mL VITAMIN D INSUFFICIENCY = GREATER THAN 20 AND LESS THAN 30 ng/mL RECOMMENDED NORMAL RANGE = 30-100 ng/mL Blood specimen (specimen) 05/30/2021 3:32 PM SHORE HAND DREDGE OR BARGE 05/30/2021 3:54 PM SHORE HAND DREDGE OR BARGE Fernando Mckeon MD LAB BLOOD ORDERABLES Final Resu lt Performing Organization Address [facility] Co de Phone Number [facility] CORE [facility] * PTH (05/30/2021 3:32 PM SHORE HAND DREDGE OR BARGE) Pathologist [facility] Parathyroid Hormone 26.8 15.0 - 65.0 pg/mL [facility] Blood specimen (specimen) 05/30/2021 3:32 PM SHORE HAND DREDGE OR BARGE 05/30/2021 3:54 PM SHORE HAND DREDGE OR BARGE Fernando Mckeon MD LAB BLOOD ORDERABLES Final Resu lt Performing Organization Address [facility] Co de Phone Number [facility] CORE [facility] * (ABNORMAL) Comprehensive metabolic panel (05/30/2021 3:32 PM SHORE HAND DREDGE OR BARGE) Pathologist [facility] Total Protein 7.9 6.1 - 8.4 g/dL [...] 05/16/21. Blood specimen (specimen) 05/30/2021 3:32 PM SHORE HAND DREDGE OR BARGE 05/30/2021 3:54 PM SHORE HAND DREDGE OR BARGE us Fernando Mckeon MD LAB BLOOD ORDERABLES Final Resu lt [facility] documented in this encounter Visit Diagnoses Diagnosis Low bone mass documented in this encounter Care Teams Checkering Machine Operator Relationship Specialty Start Date End Date Lanre Parekh DO PCP - General Family Medicine 01/23/19 documented as of this encounter
--- OUTSIDE RECORDS SUMMARY | 2024-07-09 05:24 | XMS_ITS | Encounter Summary ---
Author Organization 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 4 each 03/21/2021 05/02/2021 documented in this encounter Plan of Treatment [...] the skin every 7 days Safety labs due every 3 months for med refills, labs due [facility]. 03/08/2021 03/21/2021 documented as of this encounter Care Teams Rn Delivery Relationship Specialty Start Date End Date Lanre Parekh DO PCP - General Family Medicine 01/23/19 documented as of this encounter
--- OUTSIDE RECORDS SUMMARY | 2024-07-09 05:24 | XMS_ITS | Encounter Summary ---
Author Organization [facility] Address [address] [place] [address] Phone Care Team Providers Care Wire Harness Design Engineer Name Role Phone Lanre Parekh Primary Care Provide r Encounter Details Date Type Department Care Team (Late st Contact Info) Description 06/07/[address] Medical Office [address] [place] [address] Fernando Mckeon MD [address] [address] Social History Tobacco Use Types [...] on file Legal Sex Male 11:11 PM HEALTH SERVICES COORDINATOR Gender Identity Not on file Sexual Orientation Not on file documented as of this encounter Ordered Prescriptions Prescription Sig Dispense Quantity Refills Last Filled Start Date End Date ergocalciferol (VITAMIN D) 50,000 unit capsule Take 1 capsule (50,000 Units total) by mouth every 14 (fourteen) days 25 capsule 06/07/2021 2 documented in this encounter Miscellaneous Notes * Telephone Encounter - Eric Moss MA - 06/07/2021 12:44 PM HEALTH SERVICES COORDINATOR I have sent the information to patient via [employer] I have sent refill for Vitamin D2 to his pharmacy. TH SERVICES COORDINATOR * Telephone Encounter - Eric Moss MA - 06/07/2021 12:39 PM HEALTH SERVICES COORDINATOR ----- Message from Fernando Mckeon MD sent at 06/07/2021 11:41 AM HEALTH SERVICES COORDINATOR ----- Ensure he has a script renewed for 50K ergo Q 2 weeks . Otherwise let patient know labs were wnl. TH SERVICES COORDINATOR documented in this encounter Plan of Treatment Not on file documented as of this encounter Visit Diagnoses Not on filedocumented in this encounter Care Teams Wire Harness Design Engineer Relationship Specialty Start Date End Date Lanre Parekh DO PCP - General Family Medicine 01/23/19 documented as of this encounter
--- OUTSIDE RECORDS SUMMARY | 2024-07-09 05:24 | XMS_ITS | Encounter Summary ---
Author Organization [facility] Address [address] [place] [address] Phone Care Team Providers Care Electrical Foreman Name Role Phone Lanre Parekh Primary Care Provide r Encounter Details Date Type Department Care Team (Late st Contact Info) Description 03/08/2021 Orders Only [facility] Gastroenterology [address] [facility] Medicine 8th [place] [address] [place] [address] Mame Landrum LPN History of high risk [...] on file Legal Sex Male 11:11 PM SWITCH CREW SUPERVISOR Gender Identity Not on file Sexual Orientation Not on file documented as of this encounter Ordered Prescriptions Prescription Sig Dispense Quantity Refills Last Filled Start Date End Date adalimumab (Humira,CF, Pen) 40 mg/0.4 mL pen injector kitIndications:Visual Merchandising Director hn's disease of both small and large intestine with intestinal obstruction (HCC) Inject 0.4 mL (40 mg total) under the skin every 7 days Safety labs due every 3 months for med refills, labs due STONEY. 4 each 03/08/2021 03/21/2021 documented in this encounter Plan of Treatment Scheduled Orders Name Type Priority Associated Diagnoses Orde r Schedule CBC with auto differential Lab Routine Crohn's disease of both small and large intestine with intestinal obstruction (CMS/HCC) History of high risk medication treatment Every 3 months for 4 Occurrences starting 03/08/2021 until 03/08/2022, 2 completed Hepatic function panel Lab Routine Crohn's disease of both small and large intestine with intestinal obstruction (CMS/HCC) History of high risk medication treatment Every 3 months for 4 Occurrences starting 03/08/2021 until 03/08/2022, 2 completed documented as of this encounter Procedures Procedure Name Priority Date/Time Associated Diagnosis Comments COPY(IES) SENT TO: Routine 08/22/2021 1: 25 PM SWITCH CREW SUPERVISOR CBC WITH AUTO DIFFERENTIAL Routine 08/22/2021 1:25 PM SWITCH CREW SUPERVISOR Crohn's disease of both small and large intestine with intestinal obstruction (HCC) History of high risk medication treatment COPY(IES) SENT TO: Routine 08/22/2021 1: 20 PM SWITCH CREW SUPERVISOR HEPATIC FUNCTION PANEL Routine 08/22/2021 1:20 PM SWITCH CREW SUPERVISOR Crohn's disease of both small and large intestine with intestinal obstruction (HCC) History of high risk medication treatment COPY(IES) SENT TO: Routine 04/01/2021 8: 12 AM CDT CBC WITH AUTO DIFFERENTIAL Routine 04/01/2021 8:12 AM CDT Crohn's disease of both small and large intestine with intestinal obstruction (HCC) History of high risk medication treatment HEPATIC FUNCTION PANEL Routine 04/01/2021 8:12 AM CDT Crohn's disease of both small and large intestine with intestinal obstruction (HCC) History of high risk medication treatment documented in this encounter Results * COPY(IES) SENT TO: (08/22/2021 1:25 PM SWITCH CREW SUPERVISOR) COPY(IES) SENT TO: [facility] Comment: ?[facility] ?COPY TO ACCOUNT ?[id number] ?[place] [address] 08/22/2021 1:25 PM SWITCH CREW SUPERVISOR 08/22/2021 1:26 PM SWITCH CREW SUPERVISOR Narrative [facility] - 08/23/2021 5:29 AM SWITCH CREW SUPERVISOR FASTING:NO FASTING: NO us Eliana Quevedo MD LAB BLOOD ORDERABLE S Final Result [facility] * (ABNORMAL) CBC with auto differential (08/22/2021 1:25 PM SWITCH CREW SUPERVISOR) WBC 5.7 3.8 - 10.8 Thousand/u L [facility] RBC, POC 3.68(L) 4.20 - 5.80 Million/uL [facility] Hgb 13.0(L) 13.2 - 17.1 g/dL [facility] Hct 37.0(L) 38.5 - 50.0 % [facility] MCV 100.5(H) 80.0 - 100.0 fL [facility] MCH 35.3(H) 27.0 - 33.0 pg [facility] MCHC 35.1 32.0 - 36.0 g/dL [facility] Rdw 14.4 11.0 - 15.0 % [facility] Platelets 252 140 - 400 Thousand/u L [facility] MPV 11.1 7.5 - 12.5 fL [facility] Neutrophils, abs 3,608 1,500 - 7,800 cells/uL [facility] Lymphocytes, abs 1,630 850 - 3,900 cells/uL [facility] Monocyte abs 359 200 - 950 cells/uL [facility] Eosinophils, abs 63 15 - 500 cells/uL [facility] Basophils, abs 40 0 - 200 cells/uL [facility] Neutrophils 63.3 % [facility] Lymphocyte pct 28.6 % [facility] Monocytes 6.3 % [facility] Eosinophils 1.1 % [facility] Basophils 0.7 % [facility] Blood specimen (specimen) 08/22/2021 1:25 PM SWITCH CREW SUPERVISOR 08/22/2021 1:26 PM SWITCH CREW SUPERVISOR Narrative [facility] - 08/23/2021 5:29 AM SWITCH CREW SUPERVISOR FASTING:NO FASTING: NO us Eliana Quevedo MD LAB BLOOD ORDERABLE S Final Result Performing Organization Address City/[facility] Co de Phone Number [facility] [address] [place] [address] * COPY(IES) SENT TO: (08/22/2021 1:20 PM SWITCH CREW SUPERVISOR) COPY(IES) SENT TO: [facility] Comment: ?[facility]/HEPAT [facility] ?COPY TO ACCOUNT ?[id number] ?[place] [address] 08/22/2021 1:20 PM SWITCH CREW SUPERVISOR 08/22/2021 1:21 PM SWITCH CREW SUPERVISOR Narrative [facility] - 08/23/2021 7:18 AM SWITCH CREW SUPERVISOR FASTING:NO FASTING: NO us Eliana Quevedo MD LAB BLOOD ORDERABLE S Final Result [facility] * Hepatic function panel (08/22/2021 1:20 PM SWITCH CREW SUPERVISOR) Protein, Total 7.5 6.4 - 8.4 g/dL [facility] Albumin 4.6 3.6 - 5.1 g/dL [facility] Globulin 2.9 2.2 - 4.0 g/dL (calc) [facility] Alb/glob ratio 1.6 0.9 - 2.3 (calc) [facility] Bilirubin, total 0.5 0.2 - 1.2 mg/dL [facility] Bilirubin, direct 0.1 < OR = 0.2 mg/dL [facility] Bilirubin, indirect 0.4 0.2 - 1.2 mg/dL (calc) [facility] Alk phos 72 36 - 130 U/L [facility] AST 23 10 - 40 U/L [facility] ALT (SGPT) 23 9 - 46 U/L [facility] Blood specimen (specimen) 08/22/2021 1:20 PM SWITCH CREW SUPERVISOR 08/22/2021 1:21 PM SWITCH CREW SUPERVISOR Narrative [facility] - 08/23/2021 7:18 AM SWITCH CREW SUPERVISOR FASTING:NO FASTING: NO us Eliana Quevedo MD LAB BLOOD ORDERABLE S Final Result Performing Organization Address City/[facility]/ZIP Co de Phone Number [facility] [address] [place] [address] * COPY(IES) SENT TO: (04/01/2021 8:12 AM CDT) COPY(IES) SENT TO: [facility] Comment: ?[facility]/HEPAT DIV ?COPY TO ACCOUNT ?[id number] ?[place] [address] 04/01/2021 8:12 AM CDT 04/01/2021 8:13 AM CDT us Eliana Quevedo MD LAB BLOOD ORDERABLE S Final Result [facility] * Hepatic function panel (04/01/2021 8:12 AM CDT) Pathologist [facility] Protein, Total 8.2 6.4 - 8.4 g/dL [facility] Albumin 4.6 3.6 - 5.1 g/dL [facility] Globulin 3.6 2.2 - 4.0 g/dL (calc) [facility] [...] U/L [facility] Blood specimen (specimen) 04/01/2021 8:12 AM CDT 04/01/2021 8:13 AM CDT us Eliana Quevedo MD LAB BLOOD ORDERABLE S Final Result [facility] [address] [facility] [place] [place] [address] * (ABNORMAL) CBC with auto differential (04/01/2021 8:12 AM CDT) Pathologist [facility] WBC 8.8 3.8 - 10.8 Thousand/u L [facility] RBC, POC 3.76(L) 4.20 - 5.80 Million/uL [facility] Hgb 13.1(L) 13.2 - 17.1 g/dL [facility] Hct 38.1(L) 38.5 - 50.0 % [facility] MCV 101.3(H) 80.0 - 100.0 fL [facility] MCH 34.8(H) 27.0 - 33.0 pg [facility] MCHC 34.4 32.0 - 36.0 g/dL [facility] Rdw 13.3 11.0 - 15.0 % [facility] Platelets 237 140 - 400 Thousand/u L [facility] MPV 10.8 7.5 - 12.5 fL [facility] Neutrophils, abs 6,926 1,500 - 7,800 cells/uL [facility] Lymphocytes, abs 1,399 850 - 3,900 cells/uL [facility] Monocyte abs 431 200 - 950 cells/uL [facility] Eosinophils, abs 26 15 - 500 cells/uL [facility] Basophils, abs 18 0 - 200 cells/uL [facility] Neutrophils 78.7 % [facility] Lymphocyte pct 15.9 % [facility] Monocytes 4.9 % [facility] Eosinophils 0.3 % [facility] Basophils 0.2 % [facility] Blood specimen (specimen) 04/01/2021 8:12 AM CDT 04/01/2021 8:13 AM CDT us Eliana Quevedo MD LAB BLOOD ORDERABLE S Final Result [facility] [address] [place] [address] documented in this encounter Visit Diagnoses Diagnosis [...] every 3 months for Med refills, due 12/2020 Reorder 12/02/2020 03/08/2021 documented as of this encounter Care Teams Electrical Foreman Relationship Specialty Start Date End Date Lanre Parekh DO PCP - General Family Medicine 01/23/19 documented as of this encounter
--- OUTSIDE RECORDS SUMMARY | 2024-07-09 05:24 | XMS_ITS | Encounter Summary ---
Author Organization [facility] Address [address] [place] [address] Phone Care Team Providers Care National Accounts Recruiter Name Role Phone Lanre Parekh Primary Care Provide r Encounter Details Date Type Department Care Team (Late st Contact Info) Description 05/25/[address] Medical Office [address] [place] [address] Fernando Mckeon MD [address] [address] Social History Tobacco Use Types Packs/Day Years Used Date Smoking Tobacco: Never Smokeless Tobacco: Never Alcohol Use Standard Drinks/Week Comments Yes 0 (1 standard drink = 0.6 oz pur e alcohol) wine-rarely Sex and Gender Information Value Date Recorded Sex Assigned at Not on file Legal Sex Male 11:11 PM SWITCHBOARD MANAGER Gender Identity Not on file Sexual Orientation Not on file documented as of this encounter Miscellaneous Notes * Telephone Encounter - Dina Mota RN - 05/25/2020 12:48 PM CST Sent lab orders CHBOARD MANAGER documented in this encounter Plan of Treatment Scheduled Orders Name Type Priority Associated Diagnoses Orde r Schedule Comprehensive metabolic panel Lab Routine Other osteoporosis without current pathological fracture Expected: 05/25/2020, Expires: 05/25/2021 Vitamin D 25 hydroxy Lab Routine Vitamin D deficiency Expected: 05/25/2020, Expires: 05/25/2021 documented as of this encounter Visit Diagnoses Diagnosis Other osteoporosis without current pathological fracture- Primary Vitamin D deficiency documented in this encounter Care Teams National Accounts Recruiter Relationship Specialty Start Date End Date Lanre Parekh DO PCP - General Family Medicine 01/23/19 documented as of this encounter
--- OUTSIDE RECORDS SUMMARY | 2024-07-09 05:24 | XMS_ITS | Encounter Summary ---
Author Organization [facility] Address [address] [place] [address] Phone Care Team Providers Care Daycare Teacher Name Role Phone Lanre Parekh DO Primary Care Provide r Eliana Quevedo MD Unavailable [phone] Encounter Details Date Type Department Care Team (Late st Contact Info) Description 03/16/2020 Orders Only [facility] Scanning, Provider Social History Tobacco Use Types Packs/Day Years Used Date Smoking Tobacco: Never Smokeless Tobacco: Never Alcohol Use Standard Drinks/Week Comments Yes 0 (1 standard drink = 0.6 oz pur e alcohol) wine-rarely Sex and Gender Information Value Date Recorded Sex Assigned at Not on file Legal Sex Male 11:11 PM BANBURY OPERATOR Gender Identity Not on file Sexual Orientation Not on file documented as of this encounter Plan of Treatment Not on file documented as of this encounter Procedures Procedure Name Priority Date/Time Associated Diagnosis Comments SCAN - LABS 03/16/2020 documented in this encounter Results * SCAN - LABS (03/16/2020) us Provider Scanning Final Result documented in this encounter Visit Diagnoses Not on filedocumented in this encounter Care Teams Daycare Teacher Relationship Specialty Start Date End Date Lanre Parekh DO PCP - General Family Medicine 01/23/19 Eliana Quevedo MD [address] [place] [address] Referring Physician Gastroenterology 11/07/22 documented as of this encounter
--- OUTSIDE RECORDS SUMMARY | 2024-07-09 05:24 | XMS_ITS | Encounter Summary ---
Author Organization [facility] of [facility] Address [address] [place] [address] Phone Care Team Providers Care Opal Polisher Name Role Phone Lanre Parekh Primary Care Provide r Encounter Details Date Type Department Care Team (Late st Contact Info) Description 05/25/2020 Telephone [facility] [address] [facility] Medical Office Building 2 [address] [place] [address] Fernando Mckeon MD [address] [address] Social History Tobacco Use Types Packs/Day Years Used Date Smoking Tobacco: Never Smokeless Tobacco: Never Alcohol Use Standard Drinks/Week Comments Yes 0 (1 standard drink = 0.6 oz pur e alcohol) wine-rarely Sex and Gender Information Value Date Recorded Sex Assigned at Not on file Legal Sex Male 11:11 PM EXERCISER HORSE Gender Identity Not on file Sexual Orientation Not on file documented as of this encounter Miscellaneous Notes * Telephone Encounter - Dina Mota RN - 05/25/2020 12:33 PM CST Images from the original note were not included. Fernando Mcekon MD [facility] Bone Clinical Pool ?? Tele visit ??Pleas send order for D level and CMP to patient. F/u in ??a yr with a BMD lvm for pt, and sent My Chart message CISER HORSE CISER HORSE documented in this encounter Plan of Treatment Not on file documented as of this encounter Visit Diagnoses Not on filedocumented in this encounter Care Teams Opal Polisher Relationship Specialty Start Date End Date Lanre Parekh DO PCP - General Family Medicine 01/23/19 documented as of this encounter
--- OUTSIDE RECORDS SUMMARY | 2024-07-09 05:24 | XMS_ITS | Encounter Summary ---
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 30 tablet 07/10/2022 documented in this encounter Plan of Treatment Not on file documented as of this encounter Visit Diagnoses Diagnosis Crohn's disease of both small and large intestine with intestinal obstruction (HCC) documented in this encounter Discontinued Medications Medication Sig Discontinue Reason Start Date End Da te allopurinoL (ZYLOPRIM) 100 mg tabletIndications:Crohn's disease of both small and large intestine with intestinal obstruction (HCC) Take 1 tablet (100 mg total) by mouth daily Reorder 12/19/2021 07/10/2022 documented as of this encounter Care Teams Carbonation Equipment Operator Relationship Specialty Start Date End Date Lanre Parekh DO PCP - General Family Medicine 01/23/19 documented as of this encounter
--- OUTSIDE RECORDS SUMMARY | 2024-07-09 05:24 | XMS_ITS | Encounter Summary ---
Author Organization [facility] of [facility] Address [address] [place] [address] Phone Care Team Providers Care Assembler Bonding Name Role Phone Lanre Parekh Primary Care Provide r Encounter Details Date Type Department Care Team (Late st Contact Info) Description 02/22/2022 Orders Only [facility] Neuro Sleep [address] [facility] 6th [address] [place] [address] Davion Samuel NP [address] [place], [place] [id number] JALYN (obstructive sleep apnea) (Primary Dx) Social [...] on file 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
--- OUTSIDE RECORDS SUMMARY | 2024-07-09 05:24 | XMS_ITS | Encounter Summary ---
Author Organization [facility] of [facility] Address [address] [place] [address] Phone Care Team Providers Care Director Enterprise Sales Name Role Phone Lanre Parekh Primary Care Provide r Encounter Details Date Type Department Care Team (Late st Contact Info) Description 05/24/2020 Orders Only [facility] Gastroenterology 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 Gender Identity Not on file Sexual Orientation Not on file documented as of this encounter Ordered Prescriptions Prescription Sig Dispense Quantity Refills Last Filled Start Date End Date adalimumab (Humira,CF, Pen) 40 mg/0.4 mL pen injector kitIndications:PA approved through [facility] for Humira #[id number] starting 03/12/2020 through 04/11/2021 (2 per 28 days) Inject 0.4 mL (40 mg total) under the skin every 14 (fourteen) days Safety labs required every 3 months for Med refills, due 08/2020 2 each 2 05/24/2020 1 folic acid (FOLVITE) 1 mg tabletIndications: Crohn's disease of both small and large intestine with intestinal obstruction (HCC) Take 1 tablet (1 mg total) by mouth daily 90 tablet 3 05/24/2020 1 allopurinoL (ZYLOPRIM) 100 mg tabletIndications: Crohn's disease of both small and large intestine with intestinal obstruction (HCC) Take 1 tablet (100 mg total) by mouth daily 90 tablet 05/24/2020 1 mercaptopurine (PURINETHOL) 50 mg tabletIndications: Crohn's Disease Take 1,5 tabs PO daily -Safety labs required every 3 months for Med refills, due 08/2020 132 tablet 05/24/2020 1 documented in this encounter Plan of Treatment Not on file documented as of this encounter Visit Diagnoses Diagnosis Crohn's disease of both small and large intestine with intestinal obstruction (HCC) documented in this encounter Discontinued Medications Medication Sig Discontinue Reason Start Date End Da te mercaptopurine (PURINETHOL) 50 mg tabletIndications:Crohn' s Disease Take 1,5 tabs PO daily - labs due the week of 04/30/20 at [facility] Reorder 03/26/2020 05/24/2020 allopurinoL (ZYLOPRIM) 100 mg tabletIndications:Crohn' s disease of both small and large intestine with intestinal obstruction (HCC) Take 1 tablet (100 mg total) by mouth daily Reorder 03/26/2020 05/24/2020 folic acid (FOLVITE) 1 mg tablet Reorder 08/07/2019 05/24/2020 adalimumab (Humira,CF, Pen) 40 mg/0.4 mL pen injector kitIndications:PA approved through [facility] for Humira #[id number] starting 03/12/2020 through 04/11/2021 (2 per 28 days) Inject 0.4 mL (40 mg total) under the skin every 14 (fourteen) days Safety labs required every 3 months for Med refills, due 06/2020 Reorder 04/11/2020 05/24/2020 documented as of this encounter Care Teams Director Enterprise Sales Relationship Specialty Start Date End Date Lanre Parekh DO PCP - General Family Medicine 01/23/19 documented as of this encounter
--- OUTSIDE RECORDS SUMMARY | 2024-07-09 05:24 | XMS_ITS | Encounter Summary ---
Author Organization [facility] Address [address] [place] [address] Phone Care Team Providers Care Heating And Ventilating Drafter Name Role Phone Lanre Parekh Primary Care Provide r Encounter Details Date Type Department Care Team (Late st Contact Info) Description 08/19/2020 9:45 AM HOUSEKEEPING/LAUNDRY SUPERVISOR Office Visit [facility] Gastroenterology [address] [facility] Advanced Medicine 8th [place] [address] [place] [address] Eliana Quevedo MD [address] [place] [address] Crohn's disease of both small and large [...] on file Legal Sex Male 11:11 PM HOUSEKEEPING/LAUNDRY SUPERVISOR Gender Identity Not on file Sexual Orientation Not on file documented as of this encounter Last Filed Vital Signs Vital Sign Reading Time Taken Comments Blood Pressure 123/87 08/19/2020 9:56 AM HOUSEKEEPING/LAUNDRY SUPERVISOR Pulse 74 08/19/2020 9:56 AM HOUSEKEEPING/LAUNDRY SUPERVISOR Temperature 36.2 ??C (97.2 ??F) 08/19/2020 9:56 AM CS T Respiratory Rate - - Oxygen Saturation - - Inhaled Oxygen Concentration - - Weight 86.5 kg (190 lb 12.8 oz) 08/19/2020 9:56 AM HOUSEKEEPING/LAUNDRY SUPERVISOR Height 170.2 cm (5' 7 ) 08/19/2020 9:56 AM HOUSEKEEPING/LAUNDRY SUPERVISOR Body Mass Index 29.88 08/19/2020 9:56 AM HOUSEKEEPING/LAUNDRY SUPERVISOR documented in this encounter Patient Instructions * Patient Instructions* Padma Mendoza RN - 08/19/2020 9:45 AM HOUSEKEEPING/LAUNDRY SUPERVISOR Every 3 month safet labs due now and then again in October 2020- orders to patient Keep colonoscopy as scheduled in 09/2020 follow up in office in 6 months EKEEPING/LAUNDRY SUPERVISOR EKEEPING/LAUNDRY SUPERVISOR documented in this encounter Progress Notes * Edilberto Matthews MD - 08/19/2020 9:45 AM CST Reason for visit: No chief complaint on file. Problem List: Patient Active Problem List Diagnosis Date Noted ??? Chronic pharyngitis 07/25/2018 ??? 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 Acute postoperative pain ??? Generalized abdominal pain ??? Crohn's disease with complication ([facility]) 12/20/2017 Added automatically from request for surgery [id number] ??? Osteoporosis 12/07/2017 ??? Iritis 12/04/2017 ??? Crohn's disease of both small and large intestine ([facility]) 01/25/2017 Onset: 2004. Phenotype and distribution: Stricturing Primarily involving the ileum with some concern for fistulizing disease though no evidence of fistula penetrating colon lumen during surgery in 2018 Medical therapies: Previously treated with prednisone for at least 2 continuous years, flagyl, Asacol, Azathioprine ([id number]), Remicade ([phone], switched for insurance purposes), Humira ([phone], 6-month insurance interruption, re- initiation 10/2016, with dose escalated to weekly based on lowlevels and low antibodies), methotrexate add to Humira to reduce risk of antibody formation. Now onadalimumab every 2 weeks (level 11) and 6MP 75 mg daily + allopurinol (6TG 331) IBD related surgeries: Ileocecectomy on 01/11/2018 with approximately 13 cm of terminal ileum removed and 8 cm of colon. Associated conditions: Iritis, osteoporosis, vitamin-D deficiency Last endoscopy: Colonoscopy on 08/2019 apthous ulcerations in neoterminal ileum Last cross-sectional imaging: Postoperative imaging consistent with moderate- sized hiatal hernia soft tissue stranding and enlarged lymph nodes mucosal enhancement and long segment of the terminal ileum and sigmoid favoring postoperative changes plus active Crohn's Vaccination status: Prevnar 01/25/2017, Pneumovax 05/17/2017, Tdap 02/09/2014 ??? History of high risk medication treatment 01/25/2017 Adequate Humira levels with no antibodies once dose increased to weekly and MTX added HPI: Nic Teran is a 29 y.o. male with ileocolonic perforating and fistulizing Crohn's disease s/p ileocecectomy in 12/2017, currently on Humira and 6-MP, who presents today for routine follow-up. His last colonoscopy showed some apthous ulcerations in his neoterminal ileum. His 6MP dosing has been adjusted and his last level was good. He continues to feel well. He denies any abdominal pain, nausea or vomiting. He normally has 1-2 formed BM/d without blood. Occasionally he will have some loose stools if he drinks to much coffee. He has gained some weight from being sedentary from working at home. Review of Systems: On complete review of systems, all other systems are negative. Allergies Allergen Reactions ??? Flagyl [Metronidazole] Other (See comments) Neuropathy Current Outpatient Medications Medication Sig Dispense Refill ??? adalimumab (Humira,CF, Pen) 40 mg/0.4 mL pen injector kit Inject 0.4 mL (40 mg total) under theskin every 14 (fourteen) days Safety labs required every 3 months for Med refills, due 08/2020 2 each 2 ??? allopurinoL (ZYLOPRIM) 100 [...] for Med refills, due 08/2020 132 tablet 0 ??? multivitamin capsule Take 1 capsule by mouth every morning. ??? turmeric, bulk, 100 % powder Take 1,500 mg by mouth No current facility-administered medications for this visit. Physical Exam: BP 123/87 Pulse 74 Temp 36.2 ??C (97.2 ??F) Ht 170.2 cm (5' 7 ) Wt 86.5 kg (190 lb 12.8 oz) BMI 29.88 kg/m?? General: Awake, alert, no apparent distress, well nourished HEENT: Normocephalic, atraumatic, anicteric, conjunctiva normal Pulmonary: Clear to auscultation bilaterally Cardiovascular: Regular rhythm and rate, normal S1/S2, no murmurs/rubs/gallops Abdomen: Soft, non-tender, non-distended, normoactive bowel sounds, no palpable masses, no rebound or guarding, laparosopy scars Extremities: Warm and well perfused, no cyanosis, no clubbing, no edema Skin: Warm, dry, no rashes Neuro: No focal deficits Psych: Normal affect and mood Labs: No visits with results within 3 Month(s) from this visit. Latest known visit with results is: Orders Only on 03/26/2020 Component Date Value Ref Range Status ??? WBC 05/19/2020 5.8 3.8 - 10.8 Thousand/uL Final ??? RBC, POC 05/19/2020 3.95* 4.20 - 5.80 Million/uL Final ??? Hgb 05/19/2020 13.6 13.2 - 17.1 g/dL Final ??? Hct 05/19/2020 40.2 38.5 - 50.0 % Final ??? MCV 05/19/2020 101.8* 80.0 - 100.0 fL Final ??? MCH 05/19/2020 34.4* 27.0 - 33.0 pg Final ??? MCHC 05/19/2020 33.8 32.0 - 36.0 g/dL Final ??? Rdw 05/19/2020 14.0 11.0 - 15.0 % Final ??? Platelets 05/19/2020 295 140 - 400 Thousand/uL Final ??? MPV 05/19/2020 11.6 7.5 - 12.5 fL Final ??? Neutrophils, abs 05/19/2020 3,178 1,500 - 7,800 cells/uL Final ??? Lymphocytes, abs 05/19/2020 2,175 850 - 3,900 cells/uL Final ??? Monocyte abs 05/19/2020 360 200 - 950 cells/uL Final ??? Eosinophils, abs 05/19/2020 70 15 - 500 cells/uL Final ??? Basophils, abs 05/19/2020 17 0 - 200 cells/uL Final ??? Neutrophils 05/19/2020 54.8 % Final ??? Lymphocyte pct 05/19/2020 37.5 % Final ??? Monocytes 05/19/2020 6.2 % Final ??? Eosinophils 05/19/2020 1.2 % Final ??? Basophils 05/19/2020 0.3 % Final ??? Protein, Total 05/19/2020 7.8 6.4 - 8.4 g/dL Final ??? Albumin 05/19/2020 4.5 3.6 - 5.1 g/dL Final ??? Globulin 05/19/2020 3.3 2.2 - 4.0 g/dL (calc) Final ??? Alb/glob ratio 05/19/2020 1.4 0.9 - 2.3 (calc) Final ??? Bilirubin, total 05/19/2020 0.4 0.2 - 1.2 mg/dL Final ? ? Bilirubin, direct 05/19/2020 0.1 < OR = 0.2 mg/dL Final ??? Bilirubin, indirect 05/19/2020 0.3 0.2 - 1.2 mg/dL (calc) Final ??? Alk phos 05/19/2020 69 36 - 130 U/L Final ??? AST 05/19/2020 30 10 - 40 U/L Final ??? ALT (SGPT) 05/19/2020 48* 9 - 46 U/L Final ??? 6-TG, bld 05/19/2020 331 235 - 400 pmol/8x10(8)RBC Final ? ? 6 MMP 05/19/2020 <500 <5700 pmol/8x10(8)RBC Final ??? COPY(IES) SENT TO: 05/19/2020 Final Assessment/Plan: Problem List Digestive Crohn's disease of both small and large intestine (CMS/HCC) - Primary Overview Onset: 2004. Phenotype and distribution: Stricturing Primarily involving the ileum with some concern for fistulizing disease though no evidence of fistula penetrating colon lumen during surgery in 2018 Medical therapies: Previously treated with prednisone for at least 2 continuous years, flagyl, Asacol, Azathioprine ([id number]), Remicade ([phone], switched for insurance purposes), Humira ([phone], 6-month insurance interruption, re- initiation 10/2016, with dose escalated to weekly based on lowlevels and low antibodies), methotrexate add to Humira to reduce risk of antibody formation. Now onadalimumab every 2 weeks (level 11) and 6MP 75 mg daily + allopurinol (6TG 331) IBD related surgeries: Ileocecectomy on 01/11/2018 with approximately 13 cm of terminal ileum removed and 8 cm of colon. Associated conditions: Iritis, osteoporosis, vitamin-D deficiency Last endoscopy: Colonoscopy on 08/2019 apthous ulcerations in neoterminal ileum Last cross-sectional imaging: Postoperative imaging consistent with moderate- sized hiatal hernia soft tissue stranding and enlarged lymph nodes mucosal enhancement and long segment of the terminal ileum and sigmoid favoring postoperative changes plus active Crohn's Vaccination status: Prevnar 01/25/2017, Pneumovax 05/17/2017, Tdap 02/09/2014 Current Assessment & Plan Remains in clinical remission but also felt at his last colon that showed mild endoscopic recurrence. His 6MP has now been optimized. We will take another look. If he continues to have disease we will have to consider switching biologics. -Colonoscopy scheduled for 10/01/2020 -Recommended signing up for covid vaccine -Follows with endocrine for low BMD Relevant Orders CBC with auto differential Hepatic function panel T-SPOT.TB Return in about 6 months (around 02/16/2021). Edilberto Matthews MD Cosigned by Eliana Quevedo MD at 08/19/2020 10:53 AM HOUSEKEEPING/LAUNDRY SUPERVISOR EKEEPING/LAUNDRY SUPERVISOR EKEEPING/LAUNDRY SUPERVISOR Associated attestation - Eliana Quevedo MD - 08/19/2020 10:53 AM HOUSEKEEPING/LAUNDRY SUPERVISOR I have seen and examined the patient. I agree with the findings and plan of care as documented in the resident/fellow's note. My total encounter time on 08/19/2020 was 30 minutes which was spent in the activities documented in the note. This includes time spent prior to the visit and after the visitin direct care of the patient. This time does not include time spent in any separately reportable services. documented in this encounter Miscellaneous Notes * Assessment & Plan Note - Edilberto Matthews MD - 08/19/2020 10:40 AM HOUSEKEEPING/LAUNDRY SUPERVISOR Associated Problem(s): Crohn's disease of both small and large intestine (HCC) Remains in clinical remission but also felt at his last colon that showed mild endoscopic recurrence. His 6MP has now been optimized. We will take another look. If he continues to have disease we will have to consider switching biologics. -Colonoscopy scheduled for 10/01/2020 -Recommended signing up for covid vaccine -Follows with endocrine for low BMD EKEEPING/LAUNDRY SUPERVISOR documented in this encounter Plan of Treatment Not on file documented as of this encounter Results * T-SPOT.TB (08/19/2020 10:45 AM HOUSEKEEPING/LAUNDRY SUPERVISOR) Pathologist [facility] T-SPOT.TB Negative Sujatha [facility] Comment: Normal Value: Negative A negative [...] test. T-SPOT.TB Panel A Spot Count 0 [facility] T-SPOT.TB Panel B Spot Count 0 [facility] T-SPOT.TB Negative Control Passed [facility] T-SPOT.TB Positive Control Passed [facility] Comment: Test Performed at: [facility] [address] [place] [address] ??[id number] ? NEREIDA FRIED MD,PHD Blood specimen (specimen) 08/19/2020 10:45 AM HOUSEKEEPING/LAUNDRY SUPERVISOR 08/19/2020 4:49 PM HOUSEKEEPING/LAUNDRY SUPERVISOR Eliana Quevedo MD LAB MICROBIOLOGY - GENERAL ORDERABLES Final Result [facility] Department [place] [address] documented in this encounter Visit Diagnoses Diagnosis Crohn's disease of both small and large intestine without complication (CMS/HCC) (HCC)- Primary High risk medications (not anticoagulants) long-term use Encounter for long-term (current) use of other medications documented in this encounter Care Teams Heating And Ventilating Drafter Relationship Specialty Start Date End Date Lanre Parekh DO PCP - General Family Medicine 01/23/19 documented as of this encounter
--- OUTSIDE RECORDS SUMMARY | 2024-07-09 05:24 | XMS_ITS | Encounter Summary ---
Author Organization [facility] Address [address] [place] [address] Phone Care Team Providers Care Military Science Teacher Name Role Phone Lanre Parekh Primary Care Provide r Encounter Details Date Type Department Care Team (Late st Contact Info) Description 03/13/[address] 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 Done on 6-MP 50mg daily. Current wt:81.6kg. Reviewed by HAMMER FITTER Veronica-appropriate metabolites. No changes at this time. Patient notified. documented in this encounter Plan of Treatment Not on file documented as of this encounter Visit Diagnoses Not on filedocumented in this encounter Care Teams Military Science Teacher Relationship Specialty Start Date End Date Lanre Parekh DO PCP - General Family Medicine 01/23/19 documented as of this encounter
--- OUTSIDE RECORDS SUMMARY | 2024-07-09 05:24 | XMS_ITS | Encounter Summary ---
Author Organization [facility] Healthcare Address [address] [place] [address] Care Team Providers Care Rubber Roller Grinder Operator Name Role Phone EduinLanre milan DO Primary Care Provide r Reason for Visit * Diagnostic Imaging (Routine) - Closed Specialty Diagnoses / Procedures Referred By Renay t Referred To Contact Diagnoses Scrotal pain Procedures US Scrotum W Limited Doppler (C) US Scrotum Simona Carrillo NP Phone: tel: fax: [address] [address] Referral ID Status Reason Start Date Expiration Date Visits Re quested Visits Authorized [id number] Closed 01/17/2022 02/16/2023 1 1 Encounter Details Date Type Department Care Team (Latest Contact Info) Description 02/01/2022 1:37 PM CDT - 02/01/2022 11:59 PM CDT Hospital Encounter [facility] Radiology [address], [place] [id number] Scrotal pain Discharge Disposition: Discharge to home or self [...] on file 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 ??Normal post vasectomy scrotal sonogram and Doppler. No sonographic evidence of epididymitis, orchitis, or torsion. Dictated by: Naveen Tolentino MD The radiology attending physician has personally reviewed this study, and had reviewed and/or edited this written report and agrees with it. Electronically signed by: Christopher Stapleton M.D. Narrative 02/01/2022 3:26 PM CDT EXAMINATION: 1. SCROTAL SONOGRAM 2. SCROTAL DOPPLER HISTORY: ??31-year-old male status post vasectomy with 3 months of dull shifting testicular pain COMPARISON: ??None FINDINGS: ?? SCROTAL SONOGRAM: ??The testes are normal in size and appearance. The right testis measures 4.8 cm by 3.4 cm by 2.5 cm and the left measures ??4.7 cm by 3.0 cm by 2.4 cm. No focal lesions are seen. Both the right and left epididymis exhibit expected postvasectomy changes, although it is more apparent on the right. ??No abnormal scrotal masses or fluid collections are [...] or left epididymis. No varicocele is present. Procedure Note Christopher Stapleton MD - 02/01/2022 EXAMINATION: 1. SCROTAL SONOGRAM 2. SCROTAL DOPPLER [...] it. Electronically signed by: Christopher Stapleton M.D. us Simona Carrillo NP [facility] US PROCEDURES Final Result documented in this encounter Visit Diagnoses Diagnosis Scrotal pain Unspecified disorder of male genital organs documented in this encounter Care Teams Rubber Roller Grinder Operator Relationship Specialty Start Date End Date Lanre Parekh DO PCP - General Family Medicine 01/23/19 documented as of this encounter
--- OUTSIDE RECORDS SUMMARY | 2024-07-09 05:24 | XMS_ITS | Encounter Summary ---
Author Organization [facility] Address [address] [place] [address] Phone Care Team Providers Care Landscape Foreman Name Role Phone Lanre Parekh DO Primary Care Provide r Encounter Details Date Type Department Care Team (Late st Contact Info) Description 02/01/2022 Orders Only 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
--- OUTSIDE RECORDS SUMMARY | 2024-07-09 05:24 | XMS_ITS | Encounter Summary ---
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 Gender Identity Not on file Sexual Orientation Not on file documented as of this encounter Progress Notes * Shanika Braun - 04/01/2021 1:19 PM CDT PA approved through [employer] #[id number] starting 03/02/2021 through 04/01/2022 (4 per 28 days) PA submitted to [employer] through [facility] for Humira (4 per 28 days) documented in this encounter Plan of Treatment Not on file documented as of this encounter Visit Diagnoses Not on filedocumented in this encounter Care Teams Search Director Relationship Specialty Start Date End Date Lanre Parekh DO PCP - General Family Medicine 01/23/19 documented as of this encounter
--- OUTSIDE RECORDS SUMMARY | 2024-07-09 05:24 | XMS_ITS | Encounter Summary ---
Author Organization [facility] Address [address] [place] [address] Care Team Providers Care Burnishing Machine Operator Name Role Phone Lanre Parekh Primary Care Provide r Encounter Details Date Type Department Care Team (Late st Contact Info) Description 10/01/2020 7:21 AM CDT Anesthesia Event [facility] Endoscopy [id number] [place] [address] Dejon Ochoa MD [address] [facility] [address] [place] [address] Anesthesia Record Procedure Summary Procedure Name Responsible Anesthesiologist Anesthesia Start Time Anesthesia Stop Time COLONOSCOPY (Colon) Dejon Ochoa MD 10/01/20 0721 10/01/20 0749 Events Date Time Event Comment 10/01/2020 0651 0707 AN Equip Check 0721 An Start 0721 An Start Data 0722 In Room 0723 Start Supplemental O2 0724 Patient Positioned Laterally 0724 An Induction The patient was reevaluated immediately before moderate or deep sedation use and before anesthesia induction. 0725 Anesthesia Ready 0726 Proc Start 0744 an stop data 0745 Out of Room 0749 Handoff to RN I completed my handoff [...] disposition at the time of handoff: PACU 0749 An Stop Meds Name Total propofol 350 mg lidocaine 2 % 5 mL sodium chloride 0.9% infusion 400 mL * Agents Name O2 * Blood No blood administrations on file. 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 Gender Identity Not on file Sexual Orientation Not on file documented as of this encounter OR Notes * Anesthesia Postprocedure Evaluation - Dejon Ochoa MD - 10/01/2020 8:13 AM CDT Patient: Nic Teran Procedure Summary Date: 10/01/20 Room / Location: [facility] END[facility]COPY ROOM [facility] Anesthesia Start: 720 Anesthesia Stop: 748 Procedure: COLONOSCOPY (N/A Colon) Diagnosis: Crohn's disease of both small and large intestine without complication (CMS/HCC) (Crohn's disease of both small and large intestine) Providers: Eliana Quevedo MD Responsible Provider: Dejon Ochoa MD Anesthesia Type: general/TIVA ASA Status: 2 Anesthesia Type: general/TIVA Last vitals BP 114/63 Pulse 77 Temp 36.3 ??C (97.3 ??F) Resp 19 SpO2 97% Anesthesia Post Evaluation Patient location during evaluation: PACU Patient participation: complete - patient participated Level of consciousness: fully awake Pain score: 0 Pain management: adequate Airway patency: adequate Evidence of recall: no Anesthetic complications: no Cardiovascular status: hemodynamically stable and acceptable Respiratory status: acceptable and room air Hydration status: acceptable Pt is: normothermic Nausea/Vomiting status: none * Anesthesia Preprocedure Evaluation - Dejon Ochoa MD - 10/01/2020 6:51 AM CDT Images from the original note were not included. Anesthesia Evaluation Nic Teran is a 29 y.o. male Procedure(s): COLONOSCOPY Pre-Op Diagnosis Codes: * Crohn's disease of both small and large intestine without complication (CMS/HCC) [K50.80] Patient Active Problem List Diagnosis ??? Crohn's disease of both small and large intestine (CMS/HCC) ??? History of high risk medication treatment ??? Iritis ??? Osteoporosis ??? Crohn's disease with complication (CMS/HCC) ??? Acute postoperative pain ??? Generalized abdominal pain ??? Diarrhea due to malabsorption ??? Chronic pharyngitis Past Medical History: Diagnosis Date ??? Allergic rhinitis ??? Anemia ??? Crohn's disease (CMS/HCC) 2005 ??? GERD (gastroesophageal reflux disease) ??? Iritis ??? JALYN on CPAP Past Surgical History: Procedure Laterality Date ??? OTHER SURGICAL HISTORY 12/2017 ileocecal resection ??? VASECTOMY 2018 Allergies Allergen Reactions ??? Flagyl [Metronidazole] Other (See comments) Neuropathy Taking? Last Dose Start Date End Date Provider adalimumab (Humira,CF, Pen) 40 mg/0.4 mL pen injector kit 08/23/20 -- Eliana Quevedo MD Inject 0.4 mL (40 mg total) under the skin every 14 (fourteen) days Safety labs required every 3 months for Med refills, due 10/2020 Notes: PA approved through [employer] for Humira #[id number] starting 03/12/2020 through 04/11/2021 (2 per 28 days) allopurinoL (ZYLOPRIM) 100 mg tablet 08/23/20 08/23/21 Eliana Quevedo MD Take 1 tablet (100 mg total) by mouth daily Notes: aware of drug interaction with 6MP and wishes to dispense both balsalazide (COLAZAL) 750 mg capsule 09/13/20 -- Eliana Quevedo MD Take 3 capsules three times daily. colestipoL (COLESTID) 1 gram tablet 08/04/19 -- Eliana Quevedo MD Take 1 tab PO 4 time daily ( with meals and at bedtime) docosahexaenoic acid-epa 120-180 mg capsule -- -- Ryan Shook MD folic acid (FOLVITE) 1 mg tablet 05/24/20 -- Eliana Quevedo MD Take 1 tablet (1 mg total) by mouth daily L.acid/L.casei/B.bif/B.raf/FOS (PROBIOTIC BLEND ORAL) -- -- Ryan Shook MD mercaptopurine (PURINETHOL) 50 mg tablet 09/20/20 -- Eliana Quevedo MD Take 1,5 tabs PO daily -Safety labs required every 3 months for Med refills, due 10/2020 Notes: Dose change as of 03/26/20- aware of drug interaction with Allopurinol and wishes to dispense both multivitamin capsule -- -- Ryan Shook MD turmeric, bulk, 100 % powder -- -- Ryan Shook MD Current Facility-Administered Medications: ??? sodium chloride 0.9% flush 0.5-20 mL, 0.5-20 mL, intra-catheter, PRN ??? sodium chloride 0.9% infusion, 30 mL/hr, intravenous, Continuous Social History Tobacco Use Smoking Status Never Smoker Smokeless Tobacco Never Used Substance and Sexual Activity Alcohol Use Yes Comment: wine-rarely Substance and Sexual Activity Drug Use Not Currently ??? Types: Marijuana Family History Problem Relation Age of Onset ??? Hypertension Mother Family history of hypertension - (Added by MICKI Conv) ??? Kidney failure Mother Family history of renal failure - (Added by TW Conv) ??? Hypertension Father Family history of hypertension - (Added by TW Conv) ??? Ulcerative colitis Mother's Sister Vitals: 10/01/20 0640 Temp: 36.2 ??C (97.1 ??F) PT: No results found for requested labs [...] Attestation: This PAT evaluation Airway Exam: Mallampati: III Cervical ROM: FROM Cardiovascular Exam: Rate: regular Rhythm: regular Pulmonary Exam: LCTA, bilat Anesthesia Plan ASA 2 My patient is approved for the Anesthesia Controlled Medication protocol when under care of a PLANT PHYSIOLOGIST Planned anesthesia: General Informed Consent: Anesthesia plan and risks discussed with patient. Plan and Consent Comments: JALYN/cpap Consent and Attending signature: I and/or my [...] %) injection intravenous, As needed, Starting on Sun10/01/20 at 0724, Anesthesia Intra-op, Indications: Administration of Local AnesthesiaIndications:Administratio n of Local Anesthesia Given 10/01/2020 7:24 AM CDT 5 mL propofoL (DIPRIVAN) IV intravenous, As needed, Starting on Sun10/01/20 at 0724, Anesthesia Intra-op Given 10/01/2020 7:40 AM CDT 50 mg Given 10/01/2020 7:38 AM CDT 50 mg Given 10/01/2020 7:34 AM CDT 50 mg documented in this encounter Care Teams Burnishing Machine Operator Relationship Specialty Start Date End Date Lanre Parekh DO PCP - General Family Medicine 01/23/19 documented as of this encounter
--- OUTSIDE RECORDS SUMMARY | 2024-07-09 05:24 | XMS_ITS | Encounter Summary ---
Author Organization [facility] Address [address] [place] [address] Phone Care Team Providers Care Trustee Of Estate Name Role Phone Lanre Parekh DO Primary Care Provide r Encounter Details Date Type Department Care Team (Late st Contact Info) Description 09/05/2019 Orders Only [facility] Gastroenterology [address] [facility] 8[address] [place] [address] [place] [address] Padma Mendoza, JOSH Social History Tobacco Use Types Packs/Day Years Used Date Smoking Tobacco: Never Smokeless Tobacco: Never Alcohol Use Standard Drinks/Week Comments Yes 0 (1 standard drink = 0.6 oz pur e alcohol) wine-rarely Sex and Gender Information Value Date Recorded Sex Assigned at Not on file 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
--- OUTSIDE RECORDS SUMMARY | 2024-07-09 05:24 | XMS_ITS | Encounter Summary ---
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
--- OUTSIDE RECORDS SUMMARY | 2024-07-09 05:24 | XMS_ITS | Encounter Summary ---
Author Organization [facility] Address [address] [place] [address] Phone Care Team Providers Care Zinc Plate Grainer Name Role Phone Larne Parekh Primary Care Provide r Reason for Referral * Diagnostic Imaging (Routine) - Closed Specialty Diagnoses / Procedures Referred By Contac t Referred To Contact Bone Health Diagnoses Low bone mass Procedures Dexa Axial Skeleton Bone Density 1 or 2 Site Fernando Mckeon MD Phone: tel: fax: [facility] (All Locations) Referral ID Status Reason Start Date Expiration Date Visits Re quested Visits Authorized [id number] Closed 05/19/2021 06/18/2022 5 5 MOTIVE SERVICE WRITER Encounter Details Date Type Department Care Team (Late st Contact Info) Description 05/19/2021 Orders Only [facility] Bone Health [address] [facility] [address] [place] [address] Fernando Mckeon MD [address] [place] [id number] Low bone mass (Primary Dx) Social [...] on file 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 ?? Based on machine cross-calibration [...] by the International Society of Clinical Densitometry. [id number] Fernando Mckeon MD IMG DXA PROCEDURES Final Result documented in this encounter Visit Diagnoses Diagnosis Low bone mass- Primary Low bone mass documented in this encounter Care Teams Zinc Plate Grainer Relationship Specialty Start Date End Date Lanre Parekh DO PCP - General Family Medicine 01/23/19 documented as of this encounter
--- OUTSIDE RECORDS SUMMARY | 2024-07-09 05:24 | XMS_ITS | Encounter Summary ---
Author Organization [facility] Address [address] [place] [address] Phone Care Team Providers Care Casing Crew Name Role Phone Lanre Parekh Primary Care Provide r Encounter Details Date Type Department Care Team (Late st Contact Info) Description 04/20/2022 10:00 AM CDT Office Visit [facility] Gastroenterology [address] [facility] Medicine 12th [place] [address] [place] [phone] Eliana Quevedo MD [address] [place] [address] Crohn's disease of both small and large intestine with intestinal obstruction (HCC) (Primary Dx); History of high risk medication treatment Social History Tobacco Use Types Packs/Day Years [...] on file 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 Gender Identity Not on file Sexual Orientation Not on file documented as of this encounter Last Filed Vital Signs Vital Sign Reading Time Taken Comments Blood Pressure 123/75 04/20/2022 9:55 AM CDT Pulse 74 04/20/2022 9:55 AM CDT Temperature 36.2 ??C (97.2 ??F) 04/20/2022 9:55 AM CD T Respiratory Rate - - Oxygen Saturation - - Inhaled Oxygen Concentration - - Weight 86.8 kg (191 lb 6.4 oz) 04/20/2022 9:55 A M CDT Height 172.7 cm (5' 8 ) 04/20/2022 9:55 AM CDT Body Mass Index 29.1 04/20/2022 9:55 AM CDT documented in this encounter Patient Instructions * Patient Instructions* Rowan Cardenas RN - 04/20/2022 10:00 AM CDT Return office visit is needed in 6 months Safety labs are required every 3 months, next labs due in June. Labs ordered at [facility]. A Flu vaccine was provided for you in clinic today Please obtain the strain-specific Covid booster (available at most pharmacies) Shanika with Dr. Quevedo's office will contact you (closer to time) to schedule a colonoscopy in thefall of 2022 documented in this encounter Progress Notes * Amena Gao RMA - 04/20/2022 10:00 AM CDT Pt was given flu shot in left deltoid per provider and tolerated well. Lot #[id number] exp 12/29/22 [facility]#[id number] * Eliana Quevedo MD - 04/20/2022 12:00 AM CDT PATIENT NAME: NIC TERAN : 1990 NELLI: 04/20/2022 Reason for Visit: Follow-up on ileocolonic Crohn's disease, currently maintained on weekly Humira as well as thiopurines with allopurinol; the patient, at his last visit, held his Humira for about 3 weeks secondary tonot getting his labs done, but he has been compliant with getting his labs done since that visit. Current Medications: 1. Humira 40 mg weekly. 2. Allopurinol 100 mg a day. 3. Balsalazide 750 mg 2 tablets twice a day. 4. Colestipol p.r.n. 5. Folic acid daily. 6. Probiotic daily. 7. Mercaptopurine 50 mg tablet. 8. Multivitamin daily. Problem List: 1. Ileocolonic stricturing Crohn's disease diagnosed in 2004, status post ileocecectomy in 2017; the patient recently underwent a colonoscopy in 2018, while being maintained on Humira and methotrexate, and subsequently while being maintained on Humira and 6-MP. This year, there really was not much difference in 6-MP and methotrexate, but on the other hand, we did note lower Humira levels, and so Humira was increased to weekly. It was decided that the colonoscopy that she should been done last year, was not done secondary to COVID, and he was scheduled in December 2021. It did demonstrate mucosal remission, and so we kept him on a combination of Humira as well as 6-MP, and he is scheduled to have his next colonoscopy in the fall of 2022. 2. Status post his initial 2 COVID vaccines but no booster. History of Present Illness: Nic is a tawnya 31-year-old male with a past medical history of stricturing and perforating ileocolonic Crohn's disease, status post an ileocecectomy, who presents today for follow-up. He is currently maintained on Humira and 6-MP, and his most recent endoscopic evaluation in December 2021 demonstrated mucosal remission. The patient reports clinically he is doing very well. He feels like his energy is up. He is having 1 to 2 bowel movements a day and takes Colestid when he needs it, especially associated with fatty meals. He most recently had a DEXA scan in May 2021 that demonstrated improvement of his bone health. The patient has not received his COVID boosters and states that he is worried, because he is not sure what the interaction is between his medicines and the COVID vaccine. We spent a large portion of today's visit talking about the COVID vaccine and the benefits that are noted in minimizing the bad outcomes associated with active COVID infection. He has had active COVID at least 2 to 3 times, but he says that all the times he had it, it was quite mild. The patient otherwise has no other complaints. Physical Examination: Vital Signs: His blood pressure is 123/75, pulse 74, weight of 191 pounds. General: He is a well-appearing white male, in no apparent distress. Abdomen: Soft, nontender, nondistended, with good bowel sounds. Extremities: No edema. Assessment: Mr. Teran is a tawnya 31-year-old gentleman with a past medical history of ileocolonic stricturing and perforating Crohn's disease, who presents today for follow-up. At this point, Spike is doing so well. I have encouraged him to stay on his current dosing of medicine. We will plan on doing a colonoscopy in the fall. We did speak at length regarding his need for a COVID booster. I explained to him that although thepatient did well in the past when he got active COVID, there is no guarantee that with one of the new strains, he would do as well. On the other hand, what we do know is when patients do receive the COVID booster, and they do develop COVID, it is a much milder disease course. The patient says he will think about it, but today, he will get the flu shot. We will otherwise plan on seeing him back in the clinic in 6 months. My total encounter time on 04/20/2022 was 30minutes which was spent in the activities documented above. This includes time spent prior to the visit and after the visit in direct care of the patient. This time does not include time spent in any separately reportable services. ELECTRONICALLY SIGNED - 04/21/2022 01:59 PM Eliana Quevedo MD, MPH support merchandiser Division of Gastroenterology AG/jeni documented in this encounter Plan of Treatment Not on file documented as of this encounter Visit Diagnoses Diagnosis Crohn's disease of both small and large intestine with intestinal obstruction (HCC)- Primary History of high risk medication treatment documented in this encounter Orders Immunization/Injection Count Last Ordered Date First Ordered Date FLU VACCINE MDCK QUAD PF 2Y+ IM - FLUCELVAX 1 04/20/2022 documented in this encounter Care Teams Casing Crew Relationship Specialty Start Date End Date Lanre Parekh DO PCP - General Family Medicine 01/23/19 documented as of this encounter
--- OUTSIDE RECORDS SUMMARY | 2024-07-09 05:24 | XMS_ITS | Encounter Summary ---
Author Organization [facility] Address [address] [place] [address] Phone Care Team Providers Care Burn Out Scarfing Operator Name Role Phone Lanre Parekh Primary Care Provide r Encounter Details Date Type Department Care Team (Late st Contact Info) Description 03/26/2020 Orders Only [facility] Gastroenterology [facility] Medicine 8th [place] [address] [place] [phone] Padma Mendoza RN High risk medications (not anticoagulants) long-term use (Primary Dx); Crohn's disease of both small [...] on file Legal Sex Male 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 Gender Identity Not on file Sexual Orientation Not on file documented as of this encounter Ordered Prescriptions Prescription Sig Dispense Quantity Refills Last Filled Start Date End Date allopurinoL (ZYLOPRIM) 100 mg tabletIndications: Crohn's disease of both small and large intestine with intestinal obstruction (HCC) Take 1 tablet (100 mg total) by mouth daily 90 tablet 03/26/2020 05/24/2020 mercaptopurine (PURINETHOL) 50 mg tabletIndications: Crohn's Disease Take 1,5 tabs PO daily - labs due the week of 04/30/20 at [facility] 132 tablet 03/26/2020 05/24/2020 documented in this encounter Miscellaneous Notes * Result Encounter Note - Eliana Quevedo MD - 05/24/2020 12:35 PM CST Appropriate metabolites IN CLEANING MACHINE OPERATOR documented in this encounter Plan of Treatment Not on file documented as of this encounter Procedures Procedure Name Priority Date/Time Associated Diagnosis Comments COPY(IES) SENT TO: Routine 05/19/2020 4: 05 PM BOBBIN CLEANING MACHINE OPERATOR THIOPURINE METABOLITES Routine 05/19/2020 4:05 PM BOBBIN CLEANING MACHINE OPERATOR Crohn's disease of both small and large intestine with intestinal obstruction (CMS/HCC) High risk medications (not anticoagulants) long-term use CBC WITH AUTO DIFFERENTIAL Routine 05/19/2020 4:05 PM BOBBIN CLEANING MACHINE OPERATOR Crohn's disease of both small and large intestine with intestinal obstruction (CMS/HCC) High risk medications (not anticoagulants) long-term use HEPATIC FUNCTION PANEL Routine 05/19/2020 4:05 PM BOBBIN CLEANING MACHINE OPERATOR Crohn's disease of both small and large intestine with intestinal obstruction (CMS/HCC) High risk medications (not anticoagulants) long-term use documented in this encounter Results * COPY(IES) SENT TO: (05/19/2020 4:05 PM BOBBIN CLEANING MACHINE OPERATOR) COPY(IES) SENT TO: [facility] Comment: ?[facility] ?COPY TO ACCOUNT ?[id number] ?[place] [address] 05/19/2020 4:05 PM BOBBIN CLEANING MACHINE OPERATOR 05/19/2020 4:05 PM BOBBIN CLEANING MACHINE OPERATOR us Eliana Quevedo MD LAB BLOOD ORDERABLE S Final Result [facility] * Thiopurine metabolites (05/19/2020 4:05 PM BOBBIN CLEANING MACHINE OPERATOR) 6-TG, bld 331 235 - 400 pmol/8x10( 8)RBC [facility] Comment: This test was developed and its analytical performance characteristics have been determined by [employer] [facility] [employer]. It has not been cleared or approved by the FDA. This assay has been validated pursuant to the CLIA regulations and is used for clinical purposes. 6 MMP <500 <5700 pmol/8x10( 8)RBC [facility] Comment: These results are useful in [...] analytical performance characteristics have been determined by [employer] [facility] [employer]. It has not been cleared or approved by the FDA. This assay has been validated pursuant to the CLIA regulations and is used for clinical purposes. ? Your request to have a duplicate copy faxed has been acknowledged. ?Queued to: ??[id number] Blood specimen (specimen) 05/19/2020 4:05 PM BOBBIN CLEANING MACHINE OPERATOR 05/19/2020 4:05 PM BOBBIN CLEANING MACHINE OPERATOR us Eliana Quevedo MD LAB BLOOD ORDERABLE S Final Result [facility] [address] [place] [address] * (ABNORMAL) Hepatic function panel (05/19/2020 4:05 PM BOBBIN CLEANING MACHINE OPERATOR) Protein, Total 7.8 6.4 - 8.4 g/dL [facility] Albumin 4.5 3.6 - 5.1 g/dL [facility] Globulin 3.3 2.2 - 4.0 g/dL (calc) [facility] Alb/glob ratio 1.4 0.9 - 2.3 (calc) [facility] Bilirubin, total 0.4 0.2 - 1.2 mg/dL [facility] Bilirubin, direct 0.1 < OR = 0.2 mg/dL [facility] Bilirubin, indirect 0.3 0.2 - 1.2 mg/dL (calc) [facility] Alk phos 69 36 - 130 U/L [facility] AST 30 10 - 40 U/L [facility] ALT (SGPT) 48(H) 9 - 46 U/L [facility] Blood specimen (specimen) 05/19/2020 4:05 PM BOBBIN CLEANING MACHINE OPERATOR 05/19/2020 4:05 PM BOBBIN CLEANING MACHINE OPERATOR us Eliana Quevedo MD LAB BLOOD ORDERABLE S Final Result [facility] [address] [place] [address] * (ABNORMAL) CBC with auto differential (05/19/2020 4:05 PM BOBBIN CLEANING MACHINE OPERATOR) WBC 5.8 3.8 - 10.8 Thousand/u L [facility] RBC, POC 3.95(L) 4.20 - 5.80 Million/uL [facility] Hgb 13.6 13.2 - 17.1 g/dL [facility] Hct 40.2 38.5 - 50.0 % [facility] MCV 101.8(H) 80.0 - 100.0 fL [facility] MCH 34.4(H) 27.0 - 33.0 pg [facility] MCHC 33.8 32.0 - 36.0 g/dL [facility] Rdw 14.0 11.0 - 15.0 % [facility] Platelets 295 140 - 400 Thousand/u L [facility] MPV 11.6 7.5 - 12.5 fL [facility] Neutrophils, abs 3,178 1,500 - 7,800 cells/uL [facility] Lymphocytes, abs 2,175 850 - 3,900 cells/uL [facility] Monocyte abs 360 200 - 950 cells/uL [facility] Eosinophils, abs 70 15 - 500 cells/uL [facility] Basophils, abs 17 0 - 200 cells/uL [facility] Neutrophils 54.8 % [facility] Lymphocyte pct 37.5 % [facility] Monocytes 6.2 % [facility] Eosinophils 1.2 % [facility] Basophils 0.3 % [facility] Blood specimen (specimen) 05/19/2020 4:05 PM BOBBIN CLEANING MACHINE OPERATOR 05/19/2020 4:05 PM BOBBIN CLEANING MACHINE OPERATOR us Eliana Quevedo MD LAB BLOOD ORDERABLE S Final Result [facility] [address] [place] [address] documented in this encounter Visit Diagnoses Diagnosis High risk medications (not anticoagulants) long-term use- Primary Encounter for long-term (current) use of other medications Crohn's disease of both small and large intestine with intestinal obstruction (HCC) documented in this encounter Discontinued Medications Medication Sig Discontinue Reason Start Date End Da te mercaptopurine (PURINETHOL) 50 mg tabletIndications:Crohn's Disease Take 1 tab PO daily -3 days per week(MON/WED/FRI),t theodore 2 tabs PO daily -4 days per week(//SAT /SUN) labs of due week of 03/08/2020(metabolite s at [facility]) Reorder 01/23/2020 03/26/2020 allopurinoL (ZYLOPRIM) 100 mg tabletIndications:Crohn's disease of both small and large intestine with intestinal obstruction (HCC) Take 1 tablet (100 mg total) by mouth daily Reorder 01/23/2020 03/26/2020 documented as of this encounter Care Teams Burn Out Scarfing Operator Relationship Specialty Start Date End Date Luchtefeld, Lanre Man, DO PCP - General Family Medicine 01/23/19 documented as of this encounter
--- OUTSIDE RECORDS SUMMARY | 2024-07-09 05:24 | XMS_ITS | Encounter Summary ---
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 Gender Identity Not on file Sexual Orientation Not on file documented as of this encounter Ordered Prescriptions Prescription Sig Dispense Quantity Refills Last Filled Start Date End Date allopurinoL (ZYLOPRIM) 100 mg tabletIndications: Crohn's disease of both small and large intestine with intestinal obstruction (HCC) Take 1 tablet (100 mg total) by mouth daily 90 tablet 09/08/2019 01/19/2020 mercaptopurine (PURINETHOL) 50 mg tabletIndications: Crohn's Disease Take 1 tabs PO 6 days per week, take 2 tabs PO daily -1 day per week daily,LABS Every 3 months due next 12/2019 96 tablet 09/08/2019 01/19/2020 documented in this encounter Plan of Treatment Not on file documented as of this encounter Visit Diagnoses Diagnosis Crohn's disease of both small and large intestine with intestinal obstruction (HCC) documented in this encounter Discontinued Medications Medication Sig Discontinue Reason Start Date End Da te mercaptopurine (PURINETHOL) 50 mg tabletIndications:Crohn's Disease Take 1 tabs PO 6 days per week, take 2 tabs PO daily -1 day per week daily,LABS Due week of 08/15/2019(metabolit es) Reorder 07/01/2019 09/08/2019 allopurinol (ZYLOPRIM) 100 mg tabletIndications:Crohn's disease of both small and large intestine with intestinal obstruction (HCC) Take 1 tablet (100 mg total) by mouth daily Reorder 07/01/2019 09/08/2019 documented as of this encounter Care Teams Parts Back Counter Man Relationship Specialty Start Date End Date Lanre Parekh DO PCP - General Family Medicine 01/23/19 documented as of this encounter
--- OUTSIDE RECORDS SUMMARY | 2024-07-09 05:24 | XMS_ITS | Encounter Summary ---
Author Organization [facility] Address [address] [place] [address] Phone Care Team Providers Care Rotary Drum Dyer Name Role Phone Lanre Parekh Primary Care Provide r Encounter Details Date Type Department Care Team (Late st Contact Info) Description 12/07/2021 Orders Only [facility] Gastroenterology [address] [facility] Medicine 12th [place] [address] [place] [phone] Mame Landrum LPN Crohn's disease of both small and large intestine without complication (CMS/HCC) (HCC) (Primary Dx); History of high risk [...] on file Legal 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 Per Dr. Quevedo, would like to check pt's metabolites. Order placed for Thiopurine Metabolites to be drawn at pt's local [facility] location. [facility] portal msg sent to pt this afternoon, asked that he complete this at his earliest convenience. documented in this encounter Plan of Treatment Not on file documented as of this encounter Procedures Procedure Name Priority Date/Time Associated Diagnosis Comments COPY(IES) SENT TO: Routine 12/12/2021 9: 07 AM CDT THIOPURINE METABOLITES Routine 12/12/2021 9:07 AM CDT Crohn's disease of both small and large intestine without complication (CMS/HCC) (HCC) History of high risk medication treatment documented in this encounter Results * COPY(IES) SENT TO: (12/12/2021 9:07 AM CDT) COPY(IES) SENT TO: [facility] Comment: ?[facility] ?COPY TO ACCOUNT ?[id number] [facility] [address] [address] ?[place] [address] 12/12/2021 9:07 AM CDT 12/12/2021 9:08 AM CDT us Eliana Quevedo MD LAB BLOOD ORDERABLE S Final Result [facility] * (ABNORMAL) Thiopurine metabolites (12/12/2021 9:07 AM CDT) 6-TG, bld 481(H) 235 - 400 pmol/8x10( 8)RBC [facility] Comment: This test was developed and its analytical performance characteristics have been determined by [facility]. It has not been cleared or approved by the FDA. This assay has been validated pursuant to the CLIA regulations and is used for clinical purposes. 6 MMP <500 <5700 pmol/8x10( 8)RBC [facility] Comment: These results are useful [...] analytical performance characteristics have been determined by [facility]. It has not been cleared or approved by the FDA. This assay has been validated pursuant to the CLIA regulations and is used for clinical purposes. Blood specimen (specimen) 12/12/2021 9:07 AM CDT 12/12/2021 9:08 AM CDT us Eliana Quevedo MD LAB BLOOD ORDERABLE S Final Result [facility] [address] [place] [address] documented in this encounter Visit Diagnoses Diagnosis Crohn's disease of both small and large intestine without complication (CMS/HCC) (HCC)- Primary History of high risk medication treatment documented in this encounter Care Teams Rotary Drum Dyer Relationship Specialty Start Date End Date Lanre Parekh DO PCP - General Family Medicine 01/23/19 documented as of this encounter
--- OUTSIDE RECORDS SUMMARY | 2024-07-09 05:24 | XMS_ITS | Encounter Summary ---
Author Organization [facility] Address [address] [place] [address] Phone Care Team Providers Care Terminal Clerk Name Role Phone Lanre Parekh Primary Care Provide r Encounter Details Date Type Department Care Team (Late st Contact Info) Description 02/12/2020 11:30 AM CDT Office Visit [facility] [address] [facility] 8th [place] [address] [place] [phone] Eliana Quevedo MD [address] [place] [address] Crohn's disease of small and large intestines with complication (CMS/HCC) (Primary Dx); Other osteoporosis without current pathological fracture Social History Tobacco Use Types Packs/Day Years Used Date Smoking Tobacco: Never Smokeless Tobacco: Never Alcohol Use Standard Drinks/Week Comments Yes 0 (1 standard drink = 0.6 oz pur e alcohol) wine-rarely Sex and Gender Information Value Date Recorded Sex Assigned at Not on file Legal Sex Male 11:11 PM SHANK CARRIER Gender Identity Not on file Sexual Orientation Not on file documented as of this encounter Last Filed Vital Signs Vital Sign Reading Time Taken Comments Blood Pressure 142/86 02/12/2020 11:33 AM CDT Pulse 73 02/12/2020 11:33 AM CDT Temperature 36.6 ??C (97.9 ??F) 02/12/2020 11:33 AM C DT Respiratory Rate - - Oxygen Saturation - - Inhaled Oxygen Concentration - - Weight 83.9 kg (185 lb) 02/12/2020 11:33 AM CDT Height 170.2 cm (5' 7 ) 02/12/2020 11:33 AM CDT Body Mass Index 28.98 02/12/2020 11:33 AM CDT documented in this encounter Patient Instructions * Patient Instructions* Padma Mendoza RN - 02/12/2020 11:30 AM CDT Continue meds as Prescribed Repeat labs as order the week of 03/08/2020 at [facility]-order in the [facility])- copy to patient colonoscopy with Meth Blue in early 08/2020- Shanika to schedule Procedure(s) closer to that time frame. Feel free to contact her at direct extension [phone]. follow up in office in 6 months documented in this encounter Progress Notes * Avinash Her MD - 02/12/2020 11:30 AM CDT GASTROENTEROLOGY CLINIC VISIT Nic Teran Age: 29 y.o. Date of : 1990 Reason for Visit: Routine follow-up History of Present Illness: Mr. Teran is a 29-year-old male with history of ileocolonic perforating and fistulizing Crohn's disease s/p ileocecectomy in 12/2017, currently on Humira and 6-MP, who presents today for routine follow-up. He was last seen in our clinic on 07/31/19, at which time he was overall doing well. Last colonoscopy in 08/2018 showed few aphthous ulcers in the neoterminal ileum while on Humira and 6-MP. 6-MP was recently increased last month due to slightly low metabolite levels. Dose was increased to 100mg 4 days per week and 50mg 3 days per week. He reports compliance with his medications but does report that sometimes he forgets to take the correct dose of 6-MP. He is looking into obtaining a pill box to stay more organized. He reports having 1-2 BMs per day on average but has diarrhea on 1-2 days outof the month. On these days he can have about 5 loose BMs per day, although he does note that this sometimes happens when he drinks a significant amount of coffee. He denies blood in his stool, abdominal pain, nausea/vomiting, fevers, chills, or sick contacts. He has been socially isolating and wearing a mask in public places. CURRENT MEDICATIONS: 1. Vitamin D 50,000 units every 2 weeks. 2. Folic acid 1 mg daily. 3. Levsin 0.25 mg by mouth every 6 hours as needed. 4. Mercaptopurine 50 mg po 3 days per week, 100mg 4 days per week 5. Colestid 1 g tablet by mouth as needed. 6. Humira 40 mg every 2 weeks. 7. CBD oral. 8. Allopurinol 100 mg daily 9. Balsalazide 1 tab daily PROBLEM LIST: 1. ileocolonic perforating and fistulizing Crohn's diseasedx 2004 and s/p and ileocecectomy in 12/2017. Last colonoscopy in August 2018 showed mild active disease in the jayna-terminal ileum while on Humira and methotrexate. Then we switched him from methotrexate to 6 mercaptopurine. 6-MP increased 12/2019 due to low metabolite levels to current dose of 50 mg po 3 days per week, 100mg 4 days per week. 2. Osteoporosis Patient Active Problem List Diagnosis ??? Crohn's [...] Topics ??? Alcohol use: Yes Comment: wine-rarely ??? Drug use: Not Currently Types: Marijuana Family History Problem Relation Age of Onset ??? Hypertension Mother Family history of hypertension - (Added by TW Conv) ??? Kidney failure Mother Family history of renal failure - (Added by TW Conv) ??? Hypertension Father Family history of hypertension - (Added by TW Conv) ??? Ulcerative colitis Mother's Sister Current Outpatient Medications Medication Sig Dispense Refill ??? adalimumab (Humira,CF, Pen) 40 mg/0.4 mL pen injector kit Inject 0.4 mL (40 mg total) under theskin every 14 (fourteen) days Safety labs required every 3 months for Med refills, due 04/2020 2 each 5 ??? allopurinoL (ZYLOPRIM) 100 [...] ??? docosahexaenoic acid-epa 120-180 mg capsule ??? ergocalciferol (VITAMIN D) 50,000 unit capsule [...] mercaptopurine (PURINETHOL) 50 mg tablet Take 1 tab PO daily -3 days per week(MON/WED/FRI),take2 tabs PO daily -4 days per week(//SAT/SUN) labs of due week of 03/08/2020(metabolites at [facility]) 132 tablet 0 ??? multivitamin capsule Take 1 capsule by mouth every morning. ??? turmeric, bulk, 100 % powder Take 1,500 mg by mouth No current facility-administered medications for this visit. Review of Systems: General: No fever, chills, malaise, fatigue, weight loss or gain. HEENT: No changes in vision or hearing acuity, rhinorrhea. Lungs: No shortness of breath or cough. Heart: No chest pain, palpitation, or pre-syncope. Abdomen: No nausea, emesis, dysphagia, abdominal pain, constipation, diarrhea, hematemesis, hematochezia, or melena. Renal: No dysuria, hematuria, increased or decreased urinary frequency. Ext/MS: No extremity edema, arthralgia or myalgia. Neuro: No dizziness, headache, weakness, or LOC episodes. Endocrine: No hypo- or hyperglycemic episodes or thyroid problems. Skin: No new skin rashes or lesions. Objective: Vitals: 02/12/20 1133 BP: 142/86 Pulse: 73 Temp: 36.6 ??C (97.9 ??F) Weight: 83.9 kg (185 lb) Height: 170.2 cm (5' 7 ) General: Overweight CM in NAD. HEENT: NC/AT. PERRL. EOMI. MMM. Neck: Supple. No tenderness, enlargement, JVD or LAD noted. Lungs: CTAB. No wheezing or crackles heard. No respiratory distress. Heart: RRR. +S1, S2. No murmurs or gallops appreciated. Abdomen: Soft. NT/ND. BS active. No organomegaly. Small umbilical hernia. Ext/MS: No edema, cyanosis, or erythema. Good muscle strength and tone. Neuro: A&O x3. No focal deficits noted. Psych: Appears to have normal affect, mood, judgement, and insight. Skin: No obvious rashes or lesions noted. Data Review Lab Results Component Value Date WBC 5.8 01/19/2020 HGB 13.6 01/19/2020 HCT 40.5 01/19/2020 MCV 100.7 (H) 01/19/2020 LABPLAT 265 01/19/2020 Lab Results Component Value Date GLUCOSE 99 05/12/2019 CALCIUM 9.7 05/12/2019 SODIUM 140 05/12/2019 POTASSIUM 4.1 05/12/2019 CO2 28 05/12/2019 CHLORIDE 104 05/12/2019 BUNSER 14 05/12/2019 CREATININE 0.92 05/12/2019 Lab Results Component Value Date ALT 39 01/19/2020 AST 25 01/19/2020 ALKPHOS 86 01/19/2020 BILITOT 0.5 01/19/2020 No results found for: INR, PROTIME Imaging: Results for orders placed during the hospital encounter of 02/06/18 CT Abdomen Pelvis W Contrast Narrative EXAMINATION: Computed tomography of the abdomen and pelvis with intravenous contrast HISTORY: Abdominal pain, right lower quadrant abdominal pain. Crohn's disease. Status post ileocecectomy and sigmoid fistula repair on 01/11/2018. TECHNIQUE: Transaxial computed tomographic images of the abdomen and pelvis were obtained with intravenous contrast according to the standard protocol after the uneventful administration of 100 mL Opti-Ray 350 intravenous contrast. COMPARISON: CT abdomen and pelvis performed on 06/08/2017 FINDINGS: Visualized chest: Moderate sized sliding hiatal hernia. Abdomen/Pelvis: Status post ileocecectomy with new cortical anastomoses in the right lower quadrant. Linear suture material is seen extending posteriorly to this anastomosis, 2/-319, with surrounding soft tissue thickening and fat stranding. Postsurgical appearance of the distention could this could still be within evolving postsurgical changes. Enlarged lymph nodes are seen in in the central mesentery and in the right lower quadrant, largest anterior to the psoas measuring 1.4 x 1.1 cm, 2/-327. There is mucosal hyperenhancement with wall thickening involving a long segment of the terminal ileum, estimated at 15 - 20 cm in length, slice position -399, with mild adjacent fat stranding and mesenteric engorgement. Trace ascites is present in the pelvis. The bowel is otherwise unremarkable. Mild fat stranding is also noted around the sigmoid colon, 2/-425, also could correspond to postsurgical changes from recent surgery. No evidence of fibrosing or fistula disease on the current study. Postsurgical changes along the anterior abdominal wall. The liver, spleen, kidneys, adrenal glands, pancreas, and gallbladder are normal. Minimal atelectasis is noted in the right lung base. No aggressive bone lesions. Impression 1. New ileocolonic anastomosis with adjacent soft tissue thickening and fat stranding, likely corresponding to evolving postsurgical changes with possible adjacent fat necrosis. No evidence of drainable fluid collections or well-defined abscesses. Recommend continued follow-up. 2. Segment of mild small bowel wall thickening and mucosal hyperenhancement suggestive of active inflammatory stage of Crohn's disease in the distal ileum. Electronically signed by: Jefferson Kirkpatrick M.D. Assessment/Plan: 29-year-old male with history of ileocolonic perforating and fistulizing Crohn's disease s/p ileocecectomy in 12/2017, currently on Humira and 6-MP, who presents today for routine follow-up. 1. Ileocolonic perforating and fistulizing Crohn's disease: diagnosed approximately 2004. Underwentileocectomy in December 2017. He has been on humira and methotrexate since his surgery. Most recent colonoscopy in August 2018 showed few aphthous ulcers in neoterminal ileum. 6-MP dose recently increased given slightly low metabolite levels. - Discussed at length with patient that it is possible his disease is active at a low level given aphthous ulceration seen on colonoscopy last year. However, clinically, he is doing very well and hismethotrexate dose was recently increased so after extensive discussion we have decided to repeat colonoscopy in August 2020. If he continues to have evidence of disease activity, we will plan to change him potentially to remicade or stelara. If colonoscopy is normal, we will continue current regimen of Humira and 6-MP. - He was provided with a pill box today to stay organized - Repeat 6-MP metabolite levels next month - Continue with 6-MP 50 mg po 3 days per week and 100mg 4 days per week and allopurinol 100mg daily - Continue with humira 40mg SQ q2 weeks - Continue with balsalazide 1 tab per day 2. Health Maintenance: receive prevnar and pneumovax in 2016. - He will receive flu shot next month - Repeat colonoscopy in August of next year - Continue to socially distance and wear mask in public places Elroy Her MD Gastroenterology Fellow Avinash Her MD 02/12/2020 12:14 PM Cosigned by Eliana Quevedo MD at 02/13/2020 2:09 PM CDT Associated attestation - Eliana Quevedo MD - 02/13/2020 2:09 PM CDT I have seen and examined the patient. I agree with the findings and plan of care as documented in the resident/fellow's note. documented in this encounter Plan of Treatment Not on file documented as of this encounter Visit Diagnoses Diagnosis Crohn's disease of small and large intestines with complication (HCC)- Primary Other osteoporosis without current pathological fracture documented in this encounter Care Teams Terminal Clerk Relationship Specialty Start Date End Date Lanre Parekh DO PCP - General Family Medicine 01/23/19 documented as of this encounter
--- OUTSIDE RECORDS SUMMARY | 2024-07-09 05:24 | XMS_ITS | Encounter Summary ---
Author Organization [facility] Address [address] [place] [address] Phone Care Team Providers Care Advanced Developer Name Role Phone Lanre Parekh Primary Care Provide r Encounter Details Date Type Department Care Team (Late st Contact Info) Description 01/23/2020 Orders Only [facility] Gastroenterology Critical [facility] Medicine 8th [place] [address] [place] [phone] Padma Mendoza, JOSH Crohn's disease of small and large intestines with complication (CMS/HCC) (Primary Dx); High risk medications (not anticoagulants) long-term use; Crohn's disease of both small and large intestine with intestinal obstruction (CMS/HCC) Social History Tobacco Use Types Packs/Day Years Used Date Smoking Tobacco: Never Smokeless Tobacco: Never Alcohol Use Standard Drinks/Week Comments Yes 0 (1 standard drink = 0.6 oz pur e alcohol) wine-rarely Sex and Gender Information Value Date Recorded Sex Assigned at Not on file 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 Gender Identity Not on file Sexual Orientation Not on file documented as of this encounter Ordered Prescriptions Prescription Sig Dispense Quantity Refills Last Filled Start Date End Date allopurinoL (ZYLOPRIM) 100 mg tabletIndications: Crohn's disease of both small and large intestine with intestinal obstruction (HCC) Take 1 tablet (100 mg total) by mouth daily 90 tablet 01/23/2020 03/26/2020 mercaptopurine (PURINETHOL) 50 mg tabletIndications: Crohn's Disease Take 1 tab PO daily -3 days per week(SUN/SUN /SUN),take 2 tabs PO daily -4 days per week(/ URS/SAT/SUN) labs of due week of 03/08/2020(met abolites at [facility]) 132 tablet 01/23/2020 03/26/2020 documented in this encounter Plan of Treatment Scheduled Orders Name Type Priority Associated Diagnoses Orde r Schedule CBC with auto differential Lab Routine Crohn's disease of small and large intestines with complication (CMS/HCC) High risk medications (not anticoagulants) long-term use Expected: 03/08/2020, Expires: 01/22/2021 Hepatic function panel Lab Routine Crohn's disease of small and large intestines with complication (CMS/HCC) High risk medications (not anticoagulants) long-term use Expected: 03/08/2020, Expires: 01/22/2021 Thiopurine metabolites Lab Routine Crohn's disease of small and large intestines with complication (CMS/HCC) High risk medications (not anticoagulants) long-term use Expected: 03/08/2020, Expires: 01/22/2021 documented as of this encounter Visit Diagnoses Diagnosis Crohn's disease of small and large intestines with complication (HCC)- Primary High risk medications (not anticoagulants) long-term use Encounter for long-term (current) use of other medications Crohn's disease of both small and large intestine with intestinal obstruction (HCC) documented in this encounter Discontinued Medications Medication Sig Discontinue Reason Start Date End Da te mercaptopurine (PURINETHOL) 50 mg tabletIndications:Croh n's Disease Take 1 tabs PO 6 days per week, take 2 tabs PO daily -1 day per week daily,LABS Every 3 months due 02/12/2020 at appointment Reorder 01/21/2020 01/23/2020 allopurinoL (ZYLOPRIM) 100 mg tabletIndications:Croh n's disease of both small and large intestine with intestinal obstruction (HCC) Take 1 tablet (100 mg total) by mouth daily Reorder 01/21/2020 01/23/2020 documented as of this encounter Care Teams Advanced Developer Relationship Specialty Start Date End Date Lanre Parekh DO PCP - General Family Medicine 01/23/19 documented as of this encounter
--- OUTSIDE RECORDS SUMMARY | 2024-07-09 05:24 | XMS_ITS | Encounter Summary ---
Author Organization [facility] Address [address] [place] [address] Care Team Providers Care Biomedical Equipment Tech Name Role Phone Izabella Lanre Man HUMPHREY Primary Care Provide r Encounter Details Date Type Department Care Team (Late st Contact Info) Description 10/01/2020 7:30 AM CDT - 10/01/2020 8:00 AM CDT Surgery [facility] Endoscopy [id number] [place] [address] Eliana Quevedo MD [address] [address] [place], [place] [id number] COLONOSCOPY Surgery Details Date/Time Status Location OR Service Patient Class Case Class Case Type Trauma Case? 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 Gender Identity Not on file Sexual Orientation Not on file documented as of this encounter Last Filed Vital Signs Vital Sign Reading Time Taken Comments Blood Pressure 113/58 10/01/2020 8:00 AM CDT Pulse 69 10/01/2020 8:00 AM CDT Temperature 36.3 ??C (97.3 ??F) 10/01/2020 7:45 AM CD T Respiratory Rate 15 10/01/2020 8:00 AM CDT Oxygen Saturation 98% 10/01/2020 8:00 AM CDT Inhaled Oxygen Concentration - - Weight 83.9 kg (185 lb) 10/01/2020 6:40 AM CDT Height 172.7 cm (5' 8 ) 10/01/2020 6:40 AM CDT Body Mass Index 28.13 10/01/2020 6:40 AM CDT documented in this encounter Discharge Instructions * [...] ask them during your visits. ?? 2016 [employer]. Information is for End User's use only and may not be sold, redistributed or otherwise used for commercial purposes. All illustrations and images included in CareNotes?? are the copyrighted property of [employer]. or [employer]. The above information is an educational diagnostician only. It is not intended as medical [...] kitIndications:PA approved through [employer] for Humira #[id number] starting 03/12/2020 through 04/11/2021 (2 per 28 [...] Male Attending MD: Eliana Quevedo M.D. Room: [facility] ENDOSCOPY ROOM 01 Note Status: Finalized Procedure: [...] scope was passed under direct vision. The [id number] was introduced through the anus and advanced [...] hospital. Patient also instructed to have a truck driver instructor to take him home. documented in this [...] Male Attending MD: Eliana Quevedo M.D. Room: [facility] ENDOSCOPY ROOM 01 Note Status: Finalized Procedure: [...] The scope was passed under direct vision.The [id number] was introduced through the anusand advanced to [...] abs 3.0 1.7 - 6.5 K/cumm [facility] Imm gran abs 0.0 0.0 - 0.1 K/cumm [facility] Lymphocyte abs 1.7 0.8 - 3.3 K/cumm [facility] Monocyte abs 0.4 0.2 - 0.8 K/cumm [facility] Eosinophil abs 0.1 0.0 - 0.5 K/cumm [facility] Basophil abs 0.0 0.0 - 0.1 K/cumm [facility] Neutrophil pct 57.2 % C[facility] Comment: Interpretive Data Percent cell count reference ranges are not reported, since discordance with absolute values may lead to misinterpretation of CBC data. Current Interpretive Data was last revised on 2017. Imm gran pct 0.6 % [facility] Comment: Interpretive Data Percent cell count reference ranges are not reported, since discordance with absolute values may lead to misinterpretation of CBC data. Current Interpretive Data was last revised on 2017. Lymphocyte pct 32.5 % [facility] Comment: Interpretive Data Percent cell count reference ranges are not reported, since discordance with absolute values may lead to misinterpretation of CBC data. Current Interpretive Data was last revised on 2017. Monocyte pct 7.9 % [facility] Comment: Interpretive Data Percent cell count reference ranges are not reported, since discordance with absolute values may lead to misinterpretation of CBC data. Current Interpretive Data was last revised on 2017. Eosinophil pct 1.2 % [facility] Comment: Interpretive Data Percent cell count reference ranges are not reported, since discordance with absolute values may lead to misinterpretation of CBC data. Current Interpretive Data was last revised on 2017. Basophil pct 0.6 % [facility] Comment: Interpretive Data Percent cell count reference ranges are not reported, since discordance with absolute values may lead to misinterpretation of CBC data. Current Interpretive Data was last revised on 2017. Blood specimen (specimen) 10/01/2020 6:52 AM CDT 10/01/2020 7:06 AM CDT us Eliana Quevedo MD LAB BLOOD ORDERABLE S Final Result Performing Organization Address [facility]/ZIP Co de Phone Number [facility] [address] [place] [address] * T-SPOT.TB (10/01/2020 6:52 AM CDT) [facility] T-SPOT.TB Negative SeeBelow CRUZ CELESTE [...] test. T-SPOT.TB Panel A Spot Count 0 [facility] T-SPOT.TB Panel B Spot Count 0 [facility] T-SPOT.TB Negative Control Passed [facility] CELE[facility] T-SPOT.TB Positive Control Passed [facility] Comment: Test Performed at: [facility], [address] [place], [place] ??[address] ? NEREIDA FRIED MD,PHD Blood specimen (specimen) 10/01/2020 6:52 AM CDT 10/01/2020 7:06 AM CDT us Eliana Quevedo MD LAB MICROBIOLOGY - GENERAL ORDERABLES Final Result Performing Organization Address City/[facility]/ZIP Co de Phone Number [facility] [id number] [facility] [place] [address] * (ABNORMAL) Hepatic function panel (10/01/2020 6:52 AM CDT) [facility] Bilirubin, total 1.0 0.1 - 1.2 mg/dL [facility] Bilirubin, direct <0.2 0.1 - 0.3 mg/dL [facility] Protein, pl 8.9(H) 6.5 - 8.5 g/dL [facility] Albumin 5.1(H) 3.5 - 5.0 g/dL [facility] Alk phos 117 40 - 130 Units/L [facility] ALT 82(H) 7 - 55 Units/L [facility] AST 41 10 - 50 Units/L [facility] Blood specimen (specimen) 10/01/2020 6:52 AM CDT 10/01/2020 7:06 AM CDT Eliana Quevedo MD LAB BLOOD ORDERABLE S Final Result [facility] [address] [facility] [place] [address] * (ABNORMAL) CBC with auto differential (10/01/2020 6:52 AM CDT) [facility] WBC 5.2 3.8 - 9.9 K/cumm [facility] Hgb 15.3 13.0 - 17.5 g/dL [facility] Hct 45.7 38.9 - 50.3 % [facility] Plt 271 150 - 400 K/cumm [facility] MPV 10.7 9.1 - 12.3 fL [facility] RBC 4.25(L) 4.30 - 5.80 M/cumm [facility] MCV 107.5(H) 81.3 - 96.4 fL [facility] MCH 36.0(H) 27.1 - 33.3 pg [facility] MCHC 33.5 32.3 - 35.7 g/dL [facility] RDW CV 13.8 11.1 - 14.9 % [facility] RDW SD 55.4(H) 35.7 - 48.1 fL [facility] NRBC abs 0.00 0.00 - 0.01 K/cumm [facility]ALAW Blood specimen (specimen) 10/01/2020 6:52 AM CDT 10/01/2020 7:06 AM CDT us Eliana Quevedo MD LAB BLOOD ORDERABLE S Final Result [facility] [address] [facility] [address] documented in this encounter Visit Diagnoses Diagnosis [...] (PROVAYBLUE) (0.5%) injection Administer over 20 Minutes, As needed, Starting on Sun10/01/20 at 0731, Intra-Op Given 10/01/2020 7:31 AM CDT 50 mg GI Tract sodium chloride 0.9% flush 0.5-20 mL 0.5-20 [...] Count Last Ordered Date First Ordered Date ondansetron (ZOFRAN) injection 4 mg 1 10/01 sodium chloride 0.9% flush 0.5-20 mL 1 08/2020 documented in this encounter Care Teams Biomedical Equipment Tech Relationship Specialty Start Date End Date Lanre Parekh DO PCP - General Family Medicine 01/23/19 documented as of this encounter
--- OUTSIDE RECORDS SUMMARY | 2024-07-09 05:24 | XMS_ITS | Encounter Summary ---
Author Organization [facility] Address [address] [place] [address] Phone Care Team Providers Care Nanny/Household Manager Name Role Phone Lanre Parekh Primary Care Provide r Encounter Details Date Type Department Care Team (Late st Contact Info) Description 04/11/2020 Documentation [facility] Gastroenterology [facility] [address]th [place] [address] [place] [id number] Shanika Braun Social History Tobacco Use Types Packs/Day Years Used Date Smoking Tobacco: Never Smokeless Tobacco: Never Alcohol Use Standard Drinks/Week Comments Yes 0 (1 standard drink = 0.6 oz pur e alcohol) wine-rarely Sex and Gender Information Value Date Recorded Sex Assigned at Not on file 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 Gender Identity Not on file Sexual Orientation Not on file documented as of this encounter Progress Notes * Shanika Braun - 04/11/2020 4:11 PM CDT 04/11/20 - PA approved through [employer] for Humira #[id number] starting 03/12/2020 through 04/11/2021 (2 per 28 days) PA submitted to [employer] for Humira (2 per 28 days) documented in this encounter Plan of Treatment Not on file documented as of this encounter Visit Diagnoses Not on filedocumented in this encounter Care Teams Nanny/Household Manager Relationship Specialty Start Date End Date Lanre Parekh DO PCP - General Family Medicine 01/23/19 documented as of this encounter
--- OUTSIDE RECORDS SUMMARY | 2024-07-09 05:24 | XMS_ITS | Encounter Summary ---
Author Organization [facility] Address [address] [place] [address] Phone Care Team Providers Care Planer Off Bearer Name Role Phone Lanre Parekh Primary Care Provide r Encounter Details Date Type Department Care Team (Late st Contact Info) Description 08/02/2022 Orders Only [facility] Gastroenterology [address] [facility] 12th [place] [address] [place] [address] Michaela Mitchell, core drilling supervisor Crohn's disease of both small and large [...] on file 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 90 tablet 08/02/2022 documented in this encounter Plan of Treatment Not on file documented as of this encounter Visit Diagnoses Diagnosis Crohn's disease of both small and large intestine with intestinal obstruction (HCC) documented in this encounter Discontinued Medications Medication Sig Discontinue Reason Start Date End Da te allopurinoL (ZYLOPRIM) 100 mg tabletIndications:Croh n's disease of both small and large intestine with intestinal obstruction (HCC) Take 1 tablet (100 mg total) by mouth daily Safety labs required every 3 months, currently overdue for labs so only authorizing a 30 day supply. Reorder 07/10/2022 08/02/2022 documented as of this encounter Care Teams Planer Off Bearer Relationship Specialty Start Date End Date Lanre Parekh DO PCP - General Family Medicine 01/23/19 documented as of this encounter
--- OUTSIDE RECORDS SUMMARY | 2024-07-09 05:24 | XMS_ITS | Encounter Summary ---
Author Organization [facility] Address [address] [place] [address] Phone Care Team Providers Care Ict Quality Assurance Engineer Name Role Phone Lanre Parekh Primary Care Provide r Encounter Details Date Type Department Care Team (Late st Contact Info) Description 10/13/2021 9:00 AM CDT Office Visit [facility] Gastroenterology [address] [facility] 12th [place] [address] [place] [phone] Eliana Quevedo MD [address] [place] [address] Crohn's disease of both small and large [...] on file 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 Gender Identity Not on file Sexual Orientation Not on file documented as of this encounter Last Filed Vital Signs Vital Sign Reading Time Taken Comments Blood Pressure 113/74 10/13/2021 8:48 AM CDT Pulse 71 10/13/2021 8:48 AM CDT Temperature 36.1 ??C (97 ??F) 10/13/2021 8:48 AM CDT Respiratory Rate - - Oxygen Saturation - - Inhaled Oxygen Concentration - - Weight 84 kg (185 lb 3.2 oz) 10/13/2021 8:48 AM CDT Height 172.5 cm (5' 7.9 ) 10/13/2021 8:48 AM CDT Body Mass Index 28.24 10/13/2021 8:48 AM CDT documented in this encounter Patient Instructions * Patient Instructions* Aisha Harding - 10/13/2021 9:00 AM CDT ??? Return office visit is needed in 6 months ??? Please get your COVID booster ??? You are currently past-due for a colonoscopy (Shanika with Dr. Quevedo's office will contact youfor scheduling) ??? You will be due for repeat safety labs in May documented in this encounter Progress Notes * Eliana Quevedo MD - 10/13/2021 12:00 AM CDT PATIENT NAME: NIC TERAN : 1990 NELLI: 10/13/2021 Reason for Visit: Follow-up on ileocolonic Crohn's disease, currently maintained on weekly Humira as well as thiopurines with allopurinol; the patient did have a hold on his Humira dosing for about 3 weeks secondary to not getting his labs done. Current Medications: 1. Humira 40 mg subcu weekly. 2. Allopurinol 100 mg a day. 3. Balsalazide 750 mg tablet 2 tablets 2 times a day. 4. Colestipol p.r.n. (1 tablet a day). 5. Folic acid 1 mg a day. 6. Probiotic daily. 7. Mercaptopurine 50 mg tablet daily. 8. Multivitamin daily. 9. Tumeric powder (not really taking). Problem List: 1. Ileocolonic stricturing Crohn's disease, diagnosed in 2004, status post an ileocecectomy in December2017; the patient most recently underwent a colonoscopy in 2018 while being maintained on Humira and methotrexate, and subsequently while being maintained on Humira and 6-MP. This year, there really was not much difference between 6-MP and the methotrexate, but on the other hand, we did note lower Humira level, and so Humira was increased to weekly. It was decided that with this year's colonoscopy and the fact we see there is more improvement with elimination of the aphthous ulcers, it is most likely related to Humira weekly and not from the 6-MP, as there is no difference between 6-MP and methotrexate. 2. The patient has received his 2 COVID vaccines initially, but has not received a booster. History of Present Illness: Nic is a tawnya 30-year-old white gentleman with a past medical history of stricturing perforating ileocolonic Crohn's disease, status post ileocecectomy, currently maintained on Humira weekly as well as 6-MP and allopurinol, who presents today for follow-up. The patient reports that he did have some lapse in his Humira for about 3 weeks because he had not gotten his routine labs done. This probably was at the beginning of August. The patient reports that he did not really have any symptoms associated with that, but over the last week or two, he did notice that he was having a lot of gassy and cramping. He admits that he is making homemade kombucha,and he thinks that this is probably related to the reason why he had these episodes of looser bowelmovements with abdominal cramping. The patient states that the kimchi was quite spicy, and he was doing it at home, which I suspect had a large amount of bok ken as well as cabbage. The patient otherwise says that he stopped it about a week ago, and his bowel movement consistency has returned back to normal, but he is still having some cramping. Physical Examination: Vital Signs: Today, his blood pressure is 113/74, temperature of 97, weight of 185. General: He is a well-appearing white male, in no apparent distress. Assessment: Nic is a tawnya 30-year-old gentleman with a past medical history of ileocolonic and perianal stricturing Crohn's disease, who presents today for follow-up. The patient recently underwent a colonoscopy a year ago that did demonstrate a wide open anastomosis, but he did have some aphthous ulcers. Since that time, he has decreased to weekly dosing of Humira, and he has remained on the allopurinol with the 6-MP. We will plan on doing a colonoscopy in the next few months, and if in fact we see that he is in mucosal remission, we can consider just stopping his thiopurines. The patient was also encouraged to get his first COVID booster, as he has been vaccinated but had not received any boosters. Lastly, in regards to the patient's cramping, I really do think it is related to the kimchi that hehad, and I encouraged him to just give it a little tincture of time and avoid any more kimchi, as Isuspect that this was causing some of the gassiness and cramping. The patient otherwise was given ample opportunity to ask any questions, and his questions were answered. He will follow up in 6 months. We will get him scheduled for a colonoscopy in the next few months. My total encounter time on 10/13/2021 was 30minutes which was spent in the activities documented above. This includes time spent prior to the visit and after the visit in direct care of the patient. This time does not include time spent in any separately reportable services. ELECTRONICALLY SIGNED - 10/14/2021 08:49 AM Eliana Quevedo MD, MPH side splitter Division of Gastroenterology AG/jeni documented in this encounter Plan of Treatment Not on file documented as of this encounter Visit Diagnoses Diagnosis Crohn's disease of both small and large intestine with intestinal obstruction (HCC)- Primary High risk medications (not anticoagulants) long-term use Encounter for long-term (current) use of other medications documented in this encounter Care Teams Ict Quality Assurance Engineer Relationship Specialty Start Date End Date Lanre Parekh DO PCP - General Family Medicine 01/23/19 documented as of this encounter
--- OUTSIDE RECORDS SUMMARY | 2024-07-09 05:24 | XMS_ITS | Encounter Summary ---
Author Organization [facility] Address [address] [place] [address] Phone Care Team Providers Care Uniform Maker Name Role Phone Lanre Parekh Primary Care Provide r Encounter Details Date Type Department Care Team (Late st Contact Info) Description 01/19/2020 Orders Only 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 Gender Identity Not on file Sexual Orientation Not on file documented as of this encounter Ordered Prescriptions Prescription Sig Dispense Quantity Refills Last Filled Start Date End Date allopurinoL (ZYLOPRIM) 100 mg tabletIndications: Crohn's disease of both small and large intestine with intestinal obstruction (HCC) Take 1 tablet (100 mg total) by mouth daily 90 tablet 01/19/2020 0 mercaptopurine (PURINETHOL) 50 mg tabletIndications: Crohn's Disease Take 1 tabs PO 6 days per week, take 2 tabs PO daily -1 day per week daily,LABS Every 3 months due 02/12/2020 at appointment 96 tablet 01/19/2020 0 documented in this encounter Plan of [...] daily,LABS Every 3 months due next 12/2019 Reorder 09/08/2019 01/19/2020 allopurinoL (ZYLOPRIM) 100 mg tabletIndications:Crohn's disease of both small and large intestine with intestinal obstruction (HCC) Take 1 tablet (100 mg total) by mouth daily Reorder 09/08/2019 01/19/2020 documented as of this encounter Care Teams Uniform Maker Relationship Specialty Start Date End Date Lanre Parekh DO PCP - General Family Medicine 01/23/19 documented as of this encounter
--- OUTSIDE RECORDS SUMMARY | 2024-07-09 05:24 | XMS_ITS | Encounter Summary ---
Author Organization [facility] Address [address] [place] [address] Phone Care Team Providers Care Automotive Lot Attendant Name Role Phone Lanre Parekh Primary Care Provide r Reason for Visit * Reason Onset Date Comments Prior Auth for Humira 03/24/2022 PA Approved 03/24/2022 Encounter Details Date Type Department Care Team (Late st Contact Info) Description 03/24/2022 Documentation [facility] Gastroenterology [address] [facility] Medicine 12th [place] [address] [place] [address] Shanika Braun Prior Auth for Humira; PA Approved Social History Tobacco Use Types Packs/Day [...] on file 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 Gender Identity Not on file Sexual Orientation Not on file documented as of this encounter Progress Notes * Shanika Braun - 03/24/2022 4:13 PM CDT PA approved through [employer] #[id number] starting 02/22/2022 through 03/24/2023 (4 per 28 days) - waiting on approval letter PA submitted to [employer] through [employer] (4 per 28 days) documented in this encounter Plan of Treatment Not on file documented as of this encounter Visit Diagnoses Not on filedocumented in this encounter Care Teams Automotive Lot Attendant Relationship Specialty Start Date End Date Lanre Parekh DO PCP - General Family Medicine 01/23/19 documented as of this encounter
--- OUTSIDE RECORDS SUMMARY | 2024-07-09 05:25 | XMS_ITS | Encounter Summary ---
Author Organization [facility] Address [address] [place] [address] Phone Care Team Providers Care Machine Zipper Trimmer Name Role Phone Lanre Parekh DO Primary Care Provide r Encounter Details Date Type Department Care Team (Late st Contact Info) Description 05/21/2019 Documentation [facility] Neuro Sleep [address] [place] [address] 6th [address] [place] [address] Deedee Bravo Ladan Social History Tobacco Use Types Packs/Day Years Used Date Smoking Tobacco: Never Smokeless Tobacco: Never Alcohol Use Standard Drinks/Week Comments No 0 (1 standard drink = 0.6 oz pur e alcohol) Sex and Gender Information Value Date Recorded Sex Assigned at Not on file Legal Sex Male 11:11 PM MANAGER INFUSION Gender Identity Not on file Sexual Orientation Not on file documented as of this encounter Progress Notes * Deedee Bravo MA - 05/21/2019 11:37 AM CST Received order. Faxed to [facility] and scanned fax confirmation GER INFUSION documented in this encounter Plan of Treatment Not on file documented as of this encounter Visit Diagnoses Not on filedocumented in this encounter Care Teams Machine Zipper Trimmer Relationship Specialty Start Date End Date Lanre Parekh DO PCP - General Family Medicine 01/23/19 documented as of this encounter
--- OUTSIDE RECORDS SUMMARY | 2024-07-09 05:25 | XMS_ITS | Encounter Summary ---
Author Organization [facility] Address [address] [place] [address] Phone Care Team Providers Care Bunch Trimmer Mold Name Role Phone PamcatarinagarrettKourtneyLanrepo Conway Primary Care Provide r Reason for Referral * Diagnostic Imaging (Routine) - Closed Specialty Diagnoses / Procedures Referred By Contac t Referred To Contact Diagnoses Low bone mass Procedures Dexa Axial Skeleton Bone Density 1 or 2 Site Jonathan Pardo MD [address] [place] [address] [place] [address] Phone: tel: fax: [facility] (All Locations) Referral ID Status Reason Start Date Expiration Date Visits Re quested Visits Authorized [id number] Closed 05/12/2019 11/20/2020 1 1 DESIGNER Encounter Details Date Type Department Care Team (Late st Contact Info) Description 05/12/2019 2:40 PM RUG DESIGNER Office Visit [facility] [address] [facility] 5th [place] [address] [place] [address] Fernando Mckeon MD [address] [address] Low bone mass (Primary Dx); Crohn's disease of both small and large intestine with intestinal obstruction (CMS/HCC) Social History Tobacco Use Types Packs/Day Years Used Date Smoking Tobacco: Never Smokeless Tobacco: Never Alcohol Use Standard Drinks/Week Comments No 0 (1 standard drink = 0.6 oz pur e alcohol) Sex and Gender Information Value Date Recorded Sex Assigned at Not on file Legal Sex Male 11:11 PM RUG DESIGNER Gender Identity Not on file Sexual Orientation Not on file documented as of this encounter Last Filed Vital Signs Vital Sign Reading Time Taken Comments Blood Pressure 130/78 05/12/2019 2:16 PM RUG DESIGNER Pulse 83 05/12/2019 2:16 PM RUG DESIGNER Temperature 36.7 ??C (98.1 ??F) 05/12/2019 2:16 PM CS T Respiratory Rate - - Oxygen Saturation - - Inhaled Oxygen Concentration - - Weight 81 kg (178 lb 9.6 oz) 05/12/2019 2:16 PM RUG DESIGNER Height 170.2 cm (5' 7 ) 05/12/2019 2:16 PM RUG DESIGNER Body Mass Index 27.97 05/12/2019 2:16 PM RUG DESIGNER documented in this encounter Progress Notes * Jonathan Pardo MD - 05/12/2019 2:40 PM CST NAME: Nic Teran : 1990 REASON FOR VISIT: Presents for follow up of low bone mass for age. HISTORY OF PRESENT ILLNESS: The patient is a 27-year-old male with a past medical history significant [...] to Humira. He reports only brief interval exposureto prednisone in 2012 for a month. Unfortunately, because of insurance issues, there was an interruption of his Humira therapy from June to October of 2015 when he had an acute flare in September. At that time he is on methotrexate and Humira every alternate week. He underwent an uncomplicated ileocecectomy on 01/11/2018, post-operatively developed 1 episode of severe abdominal pain with fever. He was given Cipro and balsalazide, but the symptoms prolonged 1-2 months and later started on 6-MP therapy for treatment. He reports no recent flares of his crohn's disease in the past year. Currently his treatment for crohn's consists of Humira 40mg/mL x1 dose every 2 weeks, 6-MP 50mg daily, and Allopurinol daily. He reports no interval falls or fractures. No change in weight. Does notendorse any symptoms suggestive of hypogonadism. No decreased libido. No difficulty obtaining or maintaining an erection. Currently on 50,000 international units Vitamin D every 2 weeks, with additional 5000 international unitsdaily (states he mistakenly bought 5000 international units instead of 1000 international units butcontinued to take in its place) and an additional 500 international units in each his Citracal tablet and multivitamin tablet. Patient did note a interval history of severe pharyngitis symptoms, 2 episodes (in the winter and in october) that consisted of severe fevers, fatigue and sore throat. He states he was treated with antibiotics both times and it did not improve his symptoms. Some form of work up was completed by primarydoctors for bacterial and fungal etiology was was allegedly negative. Patient was then given Prednisone 40mg with a 1-2 week taper with resolution of symptoms. A similar story took place in October as well. No recurrence of symptoms since. Patient was evaluated by Dr. Cazares (ENT) on 07/25/18 near the time of his first flare and the exam was unremarkable with no specific interventions suggested atthe time. Has noted that he has increased his exercise routine since suggested last year. He now goes to a local [employer] 2x/week; weight/resistance training and stair master. He also walks around his neighborhoodwith his young children roughly 2x/week as well. ROS- Denies any current symptoms of fatigue, [...] Supervised by Dr. Karol Tran, a pediatric composite laminator at [facility]. 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 He has 2 children, 3.5 Years and 1.5 years old. No alcohol, tobacco, or excessive caffeine intake. . PAST SURGICAL HISTORY: Past Surgical History: Procedure Laterality Date ??? COLONOSCOPY 2017 multiple ??? OTHER SURGICAL HISTORY 12/2017 ileocecal resection [...] Conv) ??? Ulcerative colitis Mother's Sister Vitals Vitals BP 130/78 Pulse 83 Temp 36.7 ??C (98.1 ??F) Ht 170.2 cm (5' 7 ) Wt 81 kg (178 lb 9.6 oz) BMI 27.97 kg/m?? PHYSICAL EXAM: Physical Exam Constitutional: He is oriented to person, place, and time and well-developed, well-nourished, and in no distress. HENT: Head: Atraumatic. Mouth/Throat: Oropharynx is clear and moist. No oropharyngeal exudate. Eyes: Pupils are equal, round, and reactive to light. Conjunctivae are normal. Neck: Normal range of motion. Neck supple. No thyromegaly present. Cardiovascular: Normal rate, regular rhythm and intact distal pulses. No murmur heard. Pulmonary/Chest: Effort normal and breath sounds normal. No respiratory distress. Abdominal: Soft. Bowel sounds are normal. There is no tenderness. Musculoskeletal: Normal range of motion. General: No tenderness or deformity. Lymphadenopathy: He has no cervical adenopathy. Neurological: He is alert and oriented to person, place, and time. Gait normal. Skin: Skin is warm and dry. No rash noted. Psychiatric: Mood, memory, affect and judgment normal. BONE DENSITY: BONE MINERAL DENSITY OF THE LUMBAR SPINE Bone Mineral Density (BMD) of the lumbar spine was measured from L1-L4 and the average density was calculated to be 0.939 gm/cm. This corresponds to a Z-score standard deviations from the mean of age and gender matched controls of -1.4. When compared to the previous study of 05/06/18 there has been a measured 0.067 gm/cm; 1.2% increase which is considered non-significant. BONE MINERAL DENSITY OF THE PROXIMAL FEMUR Bone Mineral Density (BMD) of the left hip total was found to be 0.756 gm/cm2. This corresponds to a Z-score standard deviations from the mean of age and gender matched controls of -1.8. Femoral neck is 0.583 gm/cm2 with a Z-score ??of -2.4. When compared to the previous study of 05/06/18 there has been a measured -0.010 gm/cm; -1.3% increase which is considered non-significant. SUMMARY: Bone mineral density is below the expected range for age with a significant increase noted since previous measurement. LABS: Most recent values: - Vitamin D, 25 -hydroxy (05/06/2018): 30 ng/mL - Creatinine (01/12/2018): 0.74 mg/dL - Calcium (01/12/2018): 8.5 mg/dL - ALP (03/14/2019): 75 ASSESSMENT: Diagnoses and all orders for this visit: Low bone mass (Primary) - Comprehensive metabolic panel; Future - Vitamin D 25 hydroxy; Future - Dexa Axial Skeleton Bone Density 1 or 2 Site; Future ASSESSMENT: This is a 27-year-old male with a past medical history significant [...] and creatinine. PLAN: (1) Low bone mass: Vitamin D levels along with CMP to check Creatinine, Calcium, and ALP levels labs checked today. CMP- wnl, Vitamin D- 38. Plan to continue D 50,000 international units [id number] as of now. Patient is to decreased his daily vitamin D supplement to 1000 international units daily tablet, and to continue his other multivitamins (Citracal and MVT) to total 2000 international units vitamin D daily. Will adjust level of supplementation based on lab testing today. I encouraged the patient to continue to engage in weight-bearing exercise for at least 20 to 30 minutes per day. He has already made great effort by going to his local [facility]; encourage to increase weekly use. The patient will follow up in one year for a repeat bone mineral density. Should there be a trend towards loss or interval fragility fractures, those would be reasons for initiating pharmacologic therapy. (2) Recurrent Pharyngitis: For patient's previous episodes of pharyngitis, given that patient's history of crohn's as well as Humira therapy, one may consider an immunological deficiency causing repeated episodes of pharyngitis. A referral to an Allergy/rangeland management specialist may be of benefit if this problem were to persist.At the moment given his lack of symptoms, will leave this determination for any referral to patient's primary care provider. Thank you for sending your patient to the [facility] at [facility]. Please let us know if I can be of any more assistance. If you have any questions or concerns please do not hesitate to give us a call. Jonathan Pardo MD Internal Medicine - Primary Care PGY2 Cosigned by Fernando Mckeon MD at 05/16/2019 11:38 AM RUG DESIGNER DESIGNER DESIGNER DESIGNER DESIGNER Associated attestation - Fernando Mckeon MD - 05/16/2019 11:38 AM RUG DESIGNER I have seen and examined the patient. I agree with the findings and plan of care as documented in the resident/fellow's note and as discussed with the resident/fellow. documented in this encounter Plan of Treatment Not on file documented as of this encounter Results * Dexa Axial Skeleton Bone Density 1 or 2 Site (05/17/2020 1:43 PM RUG DESIGNER) Anatomical Region Laterality Modality Body N/A Radiographic Nancy ging Narrative 05/21/2020 11:29 AM RUG DESIGNER Patient Name: Nic Teran Date of : 1990 Date of scan: 05/17/2020 Bone mineral density was performed on a Genmab Discovery Densitometer. ?? Machine Cross-calibration and Precision [...] and scan interpretation were performed by Brendan Civitelli M.D. who is certified by the International Society of Clinical Densitometry. [id number] us Jonathan Pardo MD IMG DXA PROCEDURES Fi nal Result * Vitamin D 25 hydroxy (05/12/2019 4:15 PM RUG DESIGNER) Vitamin D 25-OH 38 30 - 80 ng/mL [facility] Blood specimen (specimen) 05/12/2019 4:15 PM RUG DESIGNER 05/12/2019 4:15 PM RUG DESIGNER us Jonathan Pardo MD LAB BLOOD ORDERABLES Final Result [facility] Department [place] [address] * Comprehensive metabolic panel (05/12/2019 4:15 PM RUG DESIGNER) Sodium 140 135 - 145 mmol/L [facility] Potassium, pl 4.1 3.3 - 4.9 mmol/L [facility] Chloride 104 97 - 110 mmol/L [facility] CO2 28 22 - 32 mmol/L [facility] Anion gap 8 2 - 15 mmol/L [facility] BUN 14 8 - 25 mg/dL [facility] Creatinine 0.92 0.80 - 1.30 mg/dL [facility] Glucose 99 70 - 199 mg/dL [facility] Comment: Interpretive Data Fasting glucose >/= [...] classification and Diagnosis of Diabetes Diabetes Care 2017;40 (Suppl. 1):S11. Current interpretive data was last revised 2017. Calcium 9.7 8.5 - 10.3 mg/dL [facility] Bilirubin, total 0.4 0.1 - 1.2 mg/dL [facility] Protein, pl 8.3 6.5 - 8.5 g/dL [facility] Albumin 4.8 3.5 - 5.0 g/dL [facility] Alk phos 79 40 - 130 Units/L [facility] ALT 35 7 - 55 Units/L [facility] AST 27 10 - 50 Units/L [facility] Blood specimen (specimen) 05/12/2019 4:15 PM RUG DESIGNER 05/12/2019 4:15 PM RUG DESIGNER us Jonathan Pardo MD LAB BLOOD ORDERABLES Final Result [facility] Department [place] [address] documented in this encounter Visit Diagnoses Diagnosis Low bone mass- Primary Crohn's disease of both small and large intestine with intestinal obstruction (HCC) Low bone mass documented in this encounter Discontinued Medications Medication Sig Discontinue Reason Start Date End Da te calcium carbonate (OS-ANA) 1,500 mg (600 mg of elemental calcium) tablet every morning. Discontinued by another clinician 11/16/2017 05/12/2019 cefdinir (OMNICEF) 300 mg capsule Therapy completed 11/18/2018 05/12/2019 folic acid (FOLVITE) 1 mg tabletIndications:Crohn 's disease of small and large intestines with complication (HCC) Take 1 tablet (1 mg total) by mouth daily Therapy completed 05/06/2019 05/12/2019 documented as of this encounter Care Teams Bunch Trimmer Mold Relationship Specialty Start Date End Date Lanre Parekh DO PCP - General Family Medicine 01/23/19 documented as of this encounter
--- OUTSIDE RECORDS SUMMARY | 2024-07-09 05:25 | XMS_ITS | Encounter Summary ---
Author Organization [facility] Address [address] [place] [address] Phone Care Team Providers Care Hand Buffer Name Role Phone Lanre Parekh Primary Care Provide r Encounter Details Date Type Department Care Team (Late st Contact Info) Description 05/20/2019 Documentation [facility] Neuro Sleep [address] [place] [address] 6th [address] [place] [address] Davion Samuel NP [address] [place], [place] [id number] Social History Tobacco Use Types Packs/Day Years Used Date Smoking Tobacco: Never Smokeless Tobacco: Never Alcohol Use Standard Drinks/Week Comments No 0 (1 standard drink = 0.6 oz pur e alcohol) Sex and Gender Information Value Date Recorded Sex Assigned at Not on file Legal Sex Male 11:11 PM MARKETING OPERATIONS CONSULTANT Gender Identity Not on file Sexual Orientation Not on file documented as of this encounter Progress Notes * Davion Samuel NP - 05/20/2019 9:35 AM CST Error ETING OPERATIONS CONSULTANT documented in this encounter Plan of Treatment Not on file documented as of this encounter Visit Diagnoses Diagnosis JALYN (obstructive sleep apnea)- Primary Obstructive sleep apnea (adult) (pediatric) documented in this encounter Orders General Supply Count Last Ordered Date First Or dered Date CPAP THERAPY 1 05/20/2019 documented in this encounter Care Teams Hand Buffer Relationship Specialty Start Date End Date Lanre Parekh DO PCP - General Family Medicine 01/23/19 documented as of this encounter
--- OUTSIDE RECORDS SUMMARY | 2024-07-09 05:25 | XMS_ITS | Encounter Summary ---
Author Organization [facility] Address [address] [place] [address] Phone Care Team Providers Care Child Care Cook Name Role Phone Lanre Parekh Primary Care Provide r Encounter Details Date Type Department Care Team (Late st Contact Info) Description 01/23/2019 11:30 AM CDT Office Visit [facility] Gastroenterology [address] [facility] Medicine 8th [place] [address] [place] [address] Eliana Quevedo MD [address] [place] [address] Crohn's disease of both small and large intestine with intestinal obstruction (CMS/HCC) (Primary Dx) Social History Tobacco Use Types Packs/Day Years Used Date Smoking Tobacco: Never Smokeless Tobacco: Never Alcohol Use Standard Drinks/Week Comments No 0 (1 standard drink = 0.6 oz pur e alcohol) Sex and Gender Information Value Date Recorded Sex Assigned at Not on file 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 Gender Identity Not on file Sexual Orientation Not on file documented as of this encounter Last Filed Vital Signs Vital Sign Reading Time Taken Comments Blood Pressure 130/81 01/23/2019 11:08 AM CDT Pulse 72 01/23/2019 11:08 AM CDT Temperature 36.6 ??C (97.9 ??F) 01/23/2019 1 1:08 AM CDT Respiratory Rate - - Oxygen Saturation - - Inhaled Oxygen Concentration - - Weight 81.1 kg (178 lb 12.8 oz) 019 11:08 AM CDT Height 170.2 cm (5' 7 ) 01/23/2019 11:0 8 AM CDT Body Mass Index 28 01/23/2019 11:08 AM CDT documented in this encounter Patient Instructions * Patient Instructions* Shanika Braun - 01/23/2019 11:30 AM CDT Routine Office Visit in 6 months Safety Labs due week of 01/24, 02/07, 02/21 and 03/07 with metabolites - orders for [facility] mailed to patient's home address Colonoscopy in August 2019 Referral for Sleep Apnea documented in this encounter Progress Notes * Leland Calderon MD - 01/23/2019 11:30 AM CDT PATIENT NAME: NIC TERAN : 1990 NELLI: 01/23/2019 ?? REASON FOR VISIT: Follow-up for stricturing Crohn's disease, currently on Humira, 6MP an Allopurinol ?? CURRENT MEDICATIONS: 1. Vitamin D 50,000 units every 2 weeks. 2. Folic acid 1 mg daily. 3. Levsin 0.25 mg by mouth every 6 hours as needed. 4. Mercaptopurine 50 mg po daily . 5. Colestid 1 g tablet by mouth as needed. 6. Humira 40 mg every 2 weeks. 7. CBD oral. 8. Allopurinol 100 mg daily ?? PROBLEM LIST: 1. ileocolonic perforating and fistulizing Crohn's diseasedx 2004 and s/p and ileocecectomy in 12/2017. Last colonoscopy in August 2018 showed active disease in the jayna-terminal ileum. ?? HISTORY OF PRESENT ILLNESS: Nic Teran is a very pleasant 27-year-old man with a past medical history of ileocolonic Crohn's disease dating back to about 2004, who is currently maintained on 6MP and Humira, who presents today for follow-up of his Crohn's disease. In December 2017 had uncomplicated ileocecectomy. At that time he was taking Colestid, Imodium and Levsin and reporting that he was having about 2 to 3 solid stools a day. He did have an MRE subsequently which was completed in May 2018, which showed stable postsurgical changes of his ileocolonic resection that was known with improving mckenna-anastomotic inflammation. There was an area about 1.5 cm of distal neoterminal ileum that showed mild inflammation, but no evidence of fistulization, stenosis, or other fluid collections. He also had a DEXA scan since he was seen last that was also completed in May. ??in his last visit it in July 2018, he was doing well, and was due for a colonoscopy. Since last seen, He had a colonoscopy in August 2018, which showed active disease in the jayna-terminal ileum. His MTX was discontinued and was switched to 6MP and allopurinol in addition to Humira. His 6MP dose was reduced in December to 50 mg after he had a high urine metabolites. He continues to do well. He has 1-2 soft to solid BM. He denies hematochezia, fever, N&V, obstructive symptoms or ex tra intestinal Manifestation. Otherwise, He had a recent sleep study which is suspicious for sleep apnea. Also, he still gets recurrent sore throat, and currently is following ENT. PHYSICAL EXAMINATION: VITAL SIGNS: Height 5 feet 7 inches, weight 179 pounds, blood pressure 130/81, temperature 98.9, pulse 72. GENERAL: A well-appearing man in no acute distress. NECK: Supple. No lymphadenopathy. CARDIOVASCULAR: Regular rate and rhythm. No murmurs, rubs, or gallops. ABDOMINAL: Incisional scar noted that was well healing. Nontender to palpation diffusely. Normoactive bowel sounds. No hepatosplenomegaly. PULMONARY: Clear to auscultation bilaterally. EXTREMITIES: Warm and well perfused. No cyanosis, clubbing, or edema. SKIN: No significant rashes or lesions. NEUROLOGIC: Alert, awake, and oriented x4. Cranial nerves grossly intact. PSYCHIATRIC: Appropriate affect. ?? ASSESSMENT AND PLAN: Nic Teran is a very pleasant 27-year-old man with a past medical history of ileocolonic Crohn's disease with a history of stricturing status post a ileocecectomy was on Humira and methotrexate and switched to Humira and 6MP, who presents for follow-up of his Crohn's disease. ?? 1. Ileocolonic Crohn's disease: From a Crohn's standpoint, he is doing quite well. His stooling pattern has improved. His last urine metabolites were high, and as a result, his 6MP was reduced to 50 mg. - We will continue his meds - we will get a urine metabolites level - We will book him for a colonoscopy early next year. 2. Sleep apnea : We will make a referral to the sleep lab for diagnosis, as this could be contributing to his fatigue. ?? The patient was given ample opportunity to ask questions and all of his questions were answered. Donal plan to see him back in 6 months DEBRA Núñez GI fellow Cosigned by Eliana Quevedo MD at 01/23/2019 12:14 PM CDT Associated attestation - Eliana Quevedo MD - 01/23/2019 12:14 PM CDT I have seen and examined the patient. I agree with the findings and plan of care as documented in the resident/fellow's note. documented in this encounter Plan of Treatment Not on file documented as of this encounter Visit Diagnoses Diagnosis Crohn's disease of both small and large intestine with intestinal obstruction (HCC)- Primary documented in this encounter Historical Medications * This list may reflect changes made after this encounter. L.acid/L.casei/B. bif/B.raf/FOS (PROBIOTIC BLEND ORAL)Indications: gut health Take 1 tablet by mouth every morning added in this encounter Care Teams Child Care Cook Relationship Specialty Start Date End Date Lanre Parekh DO PCP - General Family Medicine 01/23/19 documented as of this encounter
--- OUTSIDE RECORDS SUMMARY | 2024-07-09 05:25 | XMS_ITS | Encounter Summary ---
Author Organization [facility] Address [address] [place] [address] Phone Care Team Providers Care Reading Intervention Teacher Name Role Phone Lanre Parekh Primary Care Provide r Encounter Details Date Type Department Care Team (Late st Contact Info) Description 05/15/2019 Orders Only [facility] Gastroenterology [facility] Medicine 8th [place] [address] [place] [phone] Padma Mendoza RN Bile salt-induced diarrhea (Primary Dx); Diarrhea, unspecified type Social History Tobacco Use Types Packs/Day Years Used Date Smoking Tobacco: Never Smokeless Tobacco: Never Alcohol Use Standard Drinks/Week Comments No 0 (1 standard drink = 0.6 oz pur e alcohol) Sex and Gender Information Value Date Recorded Sex Assigned at Not on file 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 Gender Identity Not on file Sexual Orientation Not on file documented as of this encounter Ordered Prescriptions Prescription Sig Dispense Quantity Refills Last Filled Start Date End Date colestipol (COLESTID) 1 gram tabletIndications: Bile salt-induced diarrhea Take 1 tab PO 4 times daily( before meals and at snarc or bedrime 120 tablet 11 05/15/2019 9 documented in this encounter Plan of Treatment Not on file documented as of this encounter Visit Diagnoses Diagnosis Bile salt-induced diarrhea- Primary Diarrhea, unspecified type documented in this encounter Discontinued Medications Medication Sig Discontinue Reason Start Date End Da te colestipol (COLESTID) 1 gram tabletIndications:Diarrhe a, unspecified type Take 1 tablet (1 g total) by mouth 4 (four) times a day as needed (fat driven diarrhea). Reorder 02/11/2018 05/15/2019 documented as of this encounter Care Teams Reading Intervention Teacher Relationship Specialty Start Date End Date Lanre Parekh DO PCP - General Family Medicine 01/23/19 documented as of this encounter
--- OUTSIDE RECORDS SUMMARY | 2024-07-09 05:25 | XMS_ITS | Encounter Summary ---
Author Organization [facility] Address [address] [place] [address] Phone Care Team Providers Care Dope Weigh Operator Name Role Phone Lanre Parekh Primary Care Provide r Encounter Details Date Type Department Care Team (Late st Contact Info) Description 06/26/2019 Orders Only [facility] Gastroenterology [facility] Medicine 8th [place] [address] [place] [id number] Padma Mendoza RN Diarrhea, unspecified type Social History Tobacco Use Types Packs/Day Years Used Date Smoking Tobacco: Never Smokeless Tobacco: Never Alcohol Use Standard Drinks/Week Comments No 0 (1 standard drink = 0.6 oz pur e alcohol) Sex and Gender Information Value Date Recorded Sex Assigned at Not on file Legal Sex Male 11:11 PM GARBAGE PERSON Gender Identity Not on file Sexual Orientation Not on file documented as of this encounter Ordered Prescriptions Prescription Sig Dispense Quantity Refills Last Filled Start Date End Date colestipol (COLESTID) 1 gram tabletIndications:D iarrhea, unspecified type Take 1 tab PO 4 time daily ( with meals and at bedtime) 120 tablet 06/26/2019 08/04/2019 documented in this encounter Plan of Treatment Not on file documented as of this encounter Visit Diagnoses Diagnosis Diarrhea, unspecified type documented in this encounter Discontinued Medications Medication Sig Discontinue Reason Start Date End Da te colestipol (COLESTID) 1 gram tabletIndications:Bile salt-induced diarrhea Take 1 tab PO 4 times daily( before meals and at snarc or bedrime 05/15/2019 06/26/2019 colestipol (COLESTID) 1 gram tabletIndications:Diarrh ea, unspecified type TAKE 1 TABLET BY MOUTH FOUR TIMES DAILY NEEDED( FAT DRIVEN DIARRHEA) Reorder 05/27/2019 06/26/2019 documented as of this encounter Care Teams Dope Weigh Operator Relationship Specialty Start Date End Date Lanre Parekh DO PCP - General Family Medicine 01/23/19 documented as of this encounter
--- OUTSIDE RECORDS SUMMARY | 2024-07-09 05:25 | XMS_ITS | Encounter Summary ---
Author Organization [facility] Address [address] [place] [address] Care Team Providers Care Job Compositor Name Role Phone Lanre Parekh Primary Care Provide r Encounter Details Date Type Department Care Team (Late st Contact Info) Description 08/29/2019 12:33 PM PROFESSOR OF ART HISTORY - 08/29/2019 2:46 PM PROFESSOR OF ART HISTORY Hospital Encounter [facility] Endoscopy [id number] [place] [address] Eliana Quevedo MD [address] [facility] [address] [place], [place] [id number] Discharge Disposition: Discharge to home or self care Social History Tobacco Use Types Packs/Day Years Used Date Smoking Tobacco: Never Smokeless Tobacco: Never Alcohol Use Standard Drinks/Week Comments Yes 0 (1 standard drink = 0.6 oz pur e alcohol) wine-rarely Sex and Gender Information Value Date Recorded Sex Assigned at Not on file Legal Sex Male 11:11 PM PROFESSOR OF ART HISTORY Gender Identity Not on file Sexual Orientation Not on file documented as of this encounter Last Filed Vital Signs Vital Sign Reading Time Taken Comments Blood Pressure 96/70 08/29/2019 2:25 PM PROFESSOR OF ART HISTORY Pulse 75 08/29/2019 2:25 PM PROFESSOR OF ART HISTORY Temperature 36.1 ??C (97 ??F) 08/29/2019 2:00 PM PROFESSOR OF ART HISTORY Respiratory Rate 19 08/29/2019 2:25 PM PROFESSOR OF ART HISTORY Oxygen Saturation 98% 08/29/2019 2:10 PM PROFESSOR OF ART HISTORY Inhaled Oxygen Concentration - - Weight 77.1 kg (170 lb) 08/29/2019 1:12 PM PROFESSOR OF ART HISTORY Height 172.7 cm (5' 8 ) 08/29/2019 1:12 PM PROFESSOR OF ART HISTORY Body Mass Index 25.85 08/29/2019 1:12 PM PROFESSOR OF ART HISTORY documented in this encounter Discharge Diagnoses Diagnosis Encounter for screening for malignant neoplasm of colon - ENCOUNTER FOR SCREENING FOR MALIGNANT NEOPLASM OF COLON Crohn's disease of large intestine without complications (HCC) - CROHN'S DISEASE OF LARGE INTESTINE WITHOUT COMPLICATIONS Other diseases of larynx - OTHER DISEASES OF LARYNX Gastro-esophageal reflux disease without esophagitis - GASTRO-ESOPHAGEAL REFLUX DISEASE WITHOUT ESOPHAGITIS Anemia, unspecified - ANEMIA, UNSPECIFIED Obstructive sleep apnea (adult) (pediatric) - OBSTRUCTIVE SLEEP APNEA (ADULT) (PEDIATRIC) Family history of ischemic heart disease and other diseases of the circulatory system - FAMILY HISTORY OF ISCHEMIC HEART DISEASE AND OTHER DISEASES OF THE CIRCULATORY SYSTEM Allergy status to other antibiotic agents status - ALLERGY STATUS TO OTHER ANTIBIOTIC AGENTS STATUS Other care home (current) drug therapy - OTHER LONGTERM (CURRENT) DRUG THERAPY documented in this encounter Medications at Time of Discharge L.acid/L.casei/B.b if/B.raf/FOS (PROBIOTIC BLEND ORAL)Indications:[facility] Take 1 tablet by mouth every morning multivitamin capsuleIndications :Vitamin Deficiency Prevention Take 1 capsule by mouth every morning ergocalciferol (VITAMIN D) 50,000 unit capsule Take 1 capsule (50,000 Units total) by mouth every 14 (fourteen) days 6 capsule 3 06/02/2019 0 hyoscyamine (LEVSIN) 0.125 mg SL tabletIndications: Urinary Incontinence Take 1 tablet (0.125 mg total) by mouth every 6 (six) hours as needed for cramping or diarrhea Dissolve tab under the tongue 100 tablet 5 05/20/2019 0 allopurinol (ZYLOPRIM) 100 mg tabletIndications: Crohn's disease of both small and large intestine with intestinal obstruction (HCC) Take 1 tablet (100 mg total) by mouth daily 90 tablet 07/01/2019 0 balsalazide (COLAZAL) 750 mg capsuleIndications :Ulcerative Colitis Take 3 capsules three times daily. 270 capsule 11 06/10/2019 1 colestipoL (COLESTID) 1 gram tabletIndications: Diarrhea, unspecified type Take 1 tab PO 4 time daily ( with meals and at bedtime) 120 tablet 11 08/04/2019 1 folic acid (FOLVITE) 1 mg tablet 08/07/2019 0 mercaptopurine (PURINETHOL) 50 mg tabletIndications: Crohn's Disease Take 1 tabs PO 6 days per week, take 2 tabs PO daily -1 day per week daily,LABS Due week of 08/15/2019(meta bolites) 96 tablet 07/01/2019 0 documented as of this encounter Discharge Disposition Disposition Code Departure Means Destination Discharge to home or self care documented in this encounter H&P Notes * Eliana Quevedo MD - 08/26/2019 11:28 AM CST Pre Endoscopy History and Physical Nic Teran is a 28 y.o. male who is here for Procedure(s): COLONOSCOPY The indication(s) for the procedure(s): ibd. Past Medical History: Diagnosis Date ??? Allergic rhinitis ??? Anemia ??? Crohn's disease (CMS/HCC) ??? GERD (gastroesophageal reflux disease) ??? Iritis Past Surgical History: Procedure Laterality Date ??? COLONOSCOPY 2017 multiple ??? OTHER SURGICAL HISTORY 12/2017 ileocecal resection ??? VASECTOMY 2018 Social History Tobacco Use ??? Smoking status: Never Smoker ??? Smokeless tobacco: Never Used Substance Use Topics ??? Alcohol use: No Family History Problem Relation Age of Onset [...] Date End Date Taking? Authorizing Provider adalimumab (OLAYINKA, CF, PEN) 40 mg/0.4 mL pen injector kit Inject 0.4 mL (40 mg total) under the skin every 14 (fourteen) days SAFETY LABS REQUIRED EVERY 3 MONTHS FOR REFILLS DUE 08/201905/13/19 Eliana Quevedo MD allopurinol (ZYLOPRIM) 100 mg tablet Take 1 tablet (100 mg total) by mouth daily 07/01/19 06/30/20 Eliana Quevedo MD balsalazide (COLAZAL) 750 mg capsule Take 3 capsules three times daily. 06/10/19 Eliana Quevedo MD colestipoL (COLESTID) 1 gram tablet Take 1 tab PO 4 time daily ( with meals and at bedtime) 08/04/19 Eliana Quevedo MD ergocalciferol (VITAMIN D) 50,000 unit capsule Take 1 capsule (50,000 Units total) by mouth every 14 (fourteen) days 06/02/19 06/02/20 Fernando Mckeon MD hyoscyamine (LEVSIN) 0.125 mg SL tablet Take 1 tablet (0.125 mg total) by mouth every 6 (six) hoursas needed for cramping or diarrhea Dissolve tab under the tongue 05/20/19 05/19/20 Eliana Quevedo MD L.acid/L.casei/B.bif/B.raf/FOS (PROBIOTIC BLEND ORAL) Take 1 tablet by mouth daily Historical Provider, mercaptopurine (PURINETHOL) 50 mg tablet Take 1 tabs PO 6 days per week, take 2 tabs PO daily -1 day per week daily,LABS Due week of 08/15/2019(metabolites) 07/01/19 Eliana Quevedo MD mesalamine (LIALDA) 1.2 gram EC tablet 06/03/19 Historical Provider, multivitamin capsule Take 1 capsule by mouth every morning. Historical Provider, Review of Systems A pertinent, focused review [...] planned procedure for the reasons stated above. ESSOR OF ART HISTORY documented in this encounter Procedure Notes * Eliana Quevedo MD - 08/29/2019 1:38 PM CSTAssociated Order(s): COLONOSCOPY ENDOSCOPY LAB Patient Name: Nic Teran Procedure Date: 08/29/2019 1:38 PM Date of : 1990 Admit Type: Outpatient Age: 28 Gender: Male Attending MD: Eliana Quevedo M.D. Room: [facility] ENDOSCOPY ROOM 01 Note Status: Finalized Procedure: Colonoscopy Indications: High risk colon cancer surveillance: Crohn's colitis of 8 (or more) years duration, on 6MP/allo and Humira Q14d Providers: Eliana Quevedo M.D., Jackeline Lozano M.D. (Fellow) Referring MD: Lanre Parekh D.O. Medicines: Monitored Anesthesia Care Complications: No immediate complications. Estimated Blood Loss: Estimated blood loss: none. Procedure: Pre-Anesthesia Assessment: - Immediately prior to administration of medications, the patient was re-assessed for adequacy to receive sedatives. The benefits, risks and alternatives of the procedure and sedation were discussed and informed consent was obtained. All questions were answered. Please refer to the signed informed consent document in the medical record. The scope was passed under direct vision. The [id number] was introduced through the anus and advanced to 10 cm into the ileum. The colonoscopy was performed without difficulty. The patient tolerated the procedure well. The quality of the bowel preparation was evaluated using the BBPS (Dalton Bowel Preparation Scale) with scores of: Right Colon = 2 (minor amount of residual staining, small fragments of stool and/or opaque liquid, but mucosa seen well), Transverse Colon = 2 (minor amount of residual staining, small fragments of stool and/or opaque liquid, but mucosa seen well) and Left Colon = 2 (minor amount of residual staining, small fragments of stool and/or opaque liquid, but mucosa seen well). The total BBPS score equals 6. Findings: The perianal and digital rectal examinations were normal. The Simple Endoscopic Score for Crohn's Disease was determined based on the endoscopic appearance of the mucosa in the following segments: - Ileum: Findings include aphthous ulcers less than 0.5 cm in size, less than 10% ulcerated surfaces, less than 50% of surfaces affected and no narrowings. Segment score: 3. - Right Colon: Findings include no ulcers present, no ulcerated surfaces, no affected surfaces and no narrowings. Segment score: 0. - Transverse Colon: Findings include no ulcers present, no ulcerated surfaces, no affected surfaces and no narrowings. Segment score: 0. - Left Colon: Findings include no ulcers present, no ulcerated surfaces, no affected surfaces and no narrowings. Segment score: 0. - Rectum: Findings include no ulcers present, no ulcerated surfaces, no affected surfaces and no narrowings. Segment score: 0. - Total SES-CD aggregate score: 3. Staining chromoscopy with methylene blue was performed. Impression: - Few aphthous ulcers in first segment of the jayna-terminal ileum which is unchanged from the prior colonoscopy Recommendation: - Given that the disease is localized and mild, we will maintain him on the same regimen and repeat colonscopy in 1 year. Attending Participation: I personally performed the entire procedure. Electronically signed by Eliana Quevedo M.D. Eliana Quevedo M.D. 08/29/2019 2:11:12 PM Jackeline Lozano M.D. Number of Addenda: 0 Note Initiated On: 08/29/2019 1:38 PM ESSOR OF ART HISTORY documented in this encounter Miscellaneous Notes * Result Encounter Note - Eliana Quevedo MD - 08/29/2019 2:46 PM CST Perfect metabolites * Perioperative Nursing Note - Francesca Hearn RN - 08/29/2019 2:27 PM PROFESSOR OF ART HISTORY Bloods drawn as ordered. ESSOR OF ART HISTORY * Perioperative Nursing Note - Waleska Marie RN - 08/29/2019 1:30 PM PROFESSOR OF ART HISTORY Pt reports not 'feeling well' during IV start. SBP noted to be 70/35. HR 52, pt pale and diaphoretic. HOB flat, IVF bolused for 500 cc. Pt reports symptoms improving.SBP>90's , HR>65 after 5 minutes. ESSOR OF ART HISTORY * Perioperative Nursing Note - Dina Erickson RN - 08/28/2019 4:46 PM PROFESSOR OF ART HISTORY Please follow any instruction you were given re:Bowel prep. Come to [facility] new ER entrance, you are encouraged to use free basketballs and footballs reverser parking. As you enter please inquire at the desk. You will be directed to an elevator-press elevator button for procedure level. There you will be registered, and one of the endoscopy nurses will come to get you ready for your procedure. Dress comfortably, please leave any valuables at home. For your safety, due to the anesthesia you will not be able to drive, so please have a ride arranged to and from hospital with a responsible adult. This must be some one who knows you and can care for you-please no form of public transportation or medical transport by yourself will be allowed. ESSOR OF ART HISTORY documented in this encounter Plan of Treatment Not on file documented as of this encounter Procedures Procedure Name Priority Date/Time Associated Diagnosis Comments T-SPOT.TB Routine 08/29/2019 2:15 PM PROFESSOR OF ART HISTORY DIFFERENTIAL AUTO Routine 08/29/2019 2:1 5 PM PROFESSOR OF ART HISTORY THIOPURINE METABOLITES Routine 08/29/2019 2:15 PM PROFESSOR OF ART HISTORY CBC WITH AUTO DIFFERENTIAL Routine 08/29/2019 2:15 PM PROFESSOR OF ART HISTORY HEPATIC FUNCTION PANEL Routine 08/29/2019 2:15 PM PROFESSOR OF ART HISTORY COLONOSCOPY 08/29/2019 1:42 PM PROFESSOR OF ART HISTORY Crohn's disease of both small and large intestine with other complication (CMS/HCC) COLONOSCOPY 08/29/2019 1:38 PM PROFESSOR OF ART HISTORY documented in this encounter Results * Differential, auto (08/29/2019 2:15 PM PROFESSOR OF ART HISTORY) Neutrophil abs 3.8 1.7 - 6.5 K/cumm [facility] Imm gran abs 0.0 0.0 - 0.1 K/cumm [facility] Lymphocyte abs 2.2 0.8 - 3.3 K/cumm [facility] Monocyte abs 0.3 0.2 - 0.8 K/cumm [facility] Eosinophil abs 0.1 0.0 - 0.5 K/cumm [facility] Basophil abs 0.0 0.0 - 0.1 K/cumm [facility] Neutrophil pct 59.1 % [facility] Comment: Interpretive Data Percent cell count reference ranges are not reported, since discordance with absolute values may lead to misinterpretation of CBC data. Current Interpretive Data was last revised on 2017. Imm gran pct 0.2 % [facility] Comment: Interpretive Data Percent cell count reference ranges are not reported, since discordance with absolute values may lead to misinterpretation of CBC data. Current Interpretive Data was last revised on 2017. Lymphocyte pct 34.4 % [facility] Comment: Interpretive Data Percent cell count reference ranges are not reported, since discordance with absolute values may lead to misinterpretation of CBC data. Current Interpretive Data was last revised on 2017. Monocyte pct 4.9 % [facility] Comment: Interpretive Data Percent cell count reference ranges are not reported, since discordance with absolute values may lead to misinterpretation of CBC data. Current Interpretive Data was last revised on 2017. Eosinophil pct 0.9 % [facility] Comment: Interpretive Data Percent cell count reference ranges are not reported, since discordance with absolute values may lead to misinterpretation of CBC data. Current Interpretive Data was last revised on 2017. Basophil pct 0.5 % [facility] Comment: Interpretive Data Percent cell count reference ranges are not reported, since discordance with absolute values may lead to misinterpretation of CBC data. Current Interpretive Data was last revised on 2017. Blood specimen (specimen) 08/29/2019 2:15 PM PROFESSOR OF ART HISTORY 08/29/2019 2:23 PM PROFESSOR OF ART HISTORY Eliana Quevedo MD LAB BLOOD ORDERABLE S Final Result [facility] [address] [facility]. [place] [address] * Thiopurine metabolites (08/29/2019 2:15 PM PROFESSOR OF ART HISTORY) Thiopurine metabolites See scanned report [facility] Blood specimen (specimen) 08/29/2019 2:15 PM PROFESSOR OF ART HISTORY 09/08/2019 9:53 AM CDT us Eliana Quevedo MD LAB BLOOD ORDERABLE S Final Result [facility] [id number] [facility]. Department [place] [address] * T-SPOT.TB (08/29/2019 2:15 PM PROFESSOR OF ART HISTORY) T-SPOT.TB Negative Negative [facility] Comment: Limitations from the T-SPOT.TB Package Insert p.15 Results from T-SPOT.TB testing must be used in conjunction with each individual's epidemiological history, current medical status and results of other diagnostic evaluations.The performance of T-SPOT.TB has not been adequately evaluated with specimens from individuals younger than 17 years, in women, and in patients with hemophilia. A false positive result was obtained for T-SPOT.TB when tested in subjects with M. xenopi, M. kansasii and M. gordonae. While ESAT-6 and CFP10 antigens are absent from BCG strains of M. bovis and from most environmental mycobacteria, it is possible that a positive T-SPOT.TB result may be due to infection with M. kansasii, M. szulgai, M. gordonae or M. marinum. Alternative tests would be required if these infections are suspected. A negative test result does not exclude the possibility of exposure to, or infection with M. tuberculosis. Patients with recent exposure to TB infected individuals exhibiting a negative T-SPOT.TB result should be considered for retesting within 6 weeks or if other relevant clinical symptoms indicate possible infection. A positive test result does not rule in active TB disease; other tests should be performed to confirm the diagnosis of active TB disease such as sputum smear and culture, PCR, and chest radiography. T-SPOT.TB has not been evaluated in subjects who have received >1 month of anti-TB therapy. Refrigerated and frozen samples are not recommended for use with T-SPOT.TB test. T-Spot testing performed by [facility], [address] [place] [address]. [id number] A negative test result does not exclude [...] test. T-SPOT.TB Panel A Spot Count 0 [facility] T-SPOT.TB Panel B Spot Count 0 [facility] T-SPOT.TB Negative Control Passed [facility] T-SPOT.TB Positive Control Passed [facility] Blood specimen (specimen) 08/29/2019 2:15 PM PROFESSOR OF ART HISTORY 08/29/2019 2:23 PM PROFESSOR OF ART HISTORY Eliana Quevedo MD LAB MICROBIOLOGY - GENERAL ORDERABLES Final Result [facility] [address] [facility]. [place] [address] * Hepatic function panel (08/29/2019 2:15 PM PROFESSOR OF ART HISTORY) Bilirubin, total 0.8 0.1 - 1.2 mg/dL [facility] Bilirubin, direct 0.2 0.1 - 0.3 mg/dL [facility] Protein, pl 7.6 6.5 - 8.5 g/dL [facility] Albumin 4.5 3.5 - 5.0 g/dL [facility] Alk phos 88 40 - 130 Units/L [facility] ALT 34 7 - 55 Units/L [facility] AST 25 10 - 50 Units/L [facility] Blood specimen (specimen) 08/29/2019 2:15 PM PROFESSOR OF ART HISTORY 08/29/2019 2:23 PM PROFESSOR OF ART HISTORY us Eliana Quevedo MD LAB BLOOD ORDERABLE S Final Result [facility] [id number] [facility]. [facility] [place] [employer] [place] [address] * (ABNORMAL) CBC with auto differential (08/29/2019 2:15 PM PROFESSOR OF ART HISTORY) WBC 6.5 3.8 - 9.9 K/cumm [facility] Hgb 13.9 13.0 - 17.5 g/dL [facility] Hct 41.2 38.9 - 50.3 % [facility] Plt 189 150 - 400 K/cumm [facility] MPV 9.8 9.1 - 12.3 fL [facility] RBC 4.04(L) 4.30 - 5.80 M/cumm [facility] MCV 102.0(H) 81.3 - 96.4 fL [facility] MCH 34.4(H) 27.1 - 33.3 pg [facility] MCHC 33.7 32.3 - 35.7 g/dL [facility] RDW CV 13.3 11.1 - 14.9 % [facility] RDW SD 50.1(H) 35.7 - 48.1 fL [facility] NRBC abs 0.00 0.00 - 0.01 K/cumm [facility] Blood specimen (specimen) 08/29/2019 2:15 PM PROFESSOR OF ART HISTORY 08/29/2019 2:23 PM PROFESSOR OF ART HISTORY us Eliana Quevedo MD LAB BLOOD ORDERABLE S Final Result [facility] [address] [address]. [facility] [place] [address] * COLONOSCOPY (08/29/2019 1:38 PM PROFESSOR OF ART HISTORY) Anatomical Region Laterality Modality Other Narrative Procedure Note Eliana Quevedo MD - 08/29/2019 1:38 PM CST ENDOSCOPY LAB Patient Name: Nic Teran Procedure Date: 08/29/2019 1:38 PM Date of : 1990 Admit Type: Outpatient Age: 28 Gender: Male Attending MD: Eliana Quevedo M.D. Room: [facility] ENDOSCOPY ROOM 01 Note Status: Finalized Procedure: Colonoscopy Indications: High risk colon cancer surveillance: Crohn's colitis of8 (or more) years duration, on 6MP/allo and Humira Q14d Providers: Eliana Quevedo M.D., Jackeline Lozano M.D. (Fellow) Referring MD: Lanre Parekh D.O. Medicines: Monitored Anesthesia Care Complications: No immediate complications. Estimated Blood Loss: Estimated blood loss: none. Procedure: Pre-Anesthesia Assessment: - Immediately prior to administration of medications,the patient was re-assessed for adequacy to receivesedatives. The benefits, risks and alternatives of the procedureand sedation were discussed and informed consent wasobtained. All questions were answered. Please refer to the signed informed consent document in the medical record. Thescope was passed under direct vision. The [id number] introduced through the anus and advanced to 10 cm intothe ileum. The colonoscopy was performed withoutdifficulty. The patient tolerated the procedure well. The qualityof the bowel preparation was evaluated using the BBPS(Dalton Bowel Preparation Scale) with scores of: Right Colon =2 (minor amount of residual staining, small fragments of stool and/or opaque liquid, but mucosa seen well), Transverse Colon = 2 (minor amount of residualstaining, small fragments of stool and/or opaque liquid, butmucosa seen well) and Left Colon = 2 (minor amount of residual staining, small fragments of stool and/or opaqueliquid, but mucosa seen well). The total BBPS score equals 6. Findings: The perianal and digital rectal examinations were normal. The Simple Endoscopic Score for Crohn's Disease was determined basedon the endoscopic appearance of the mucosa in the following segments: - Ileum: Findings include aphthous ulcers less than 0.5 cm in size,less than 10% ulcerated surfaces, less than 50% of surfaces affected andno narrowings. Segment score: 3. - Right Colon: Findings include no ulcers present, no ulcerated surfaces, no affected surfaces and no narrowings. Segment score: 0. - Transverse Colon: Findings include no ulcers present, no ulcerated surfaces, no affected surfaces and no narrowings. Segment score: 0. - Left Colon: Findings include no ulcers present, no ulceratedsurfaces, no affected surfaces and no narrowings. Segment score: 0. - Rectum: Findings include no ulcers present, no ulcerated surfaces,no affected surfaces and no narrowings. Segment score: 0. - Total SES-CD aggregate score: 3. Staining chromoscopy withmethylene blue was performed. Impression: - Few aphthous ulcers in first segment of theneo-terminal ileum which is unchanged from the prior colonoscopy Recommendation: - Given that the disease is localized and mild, we will maintain him on the same regimen and repeat colonscopyin 1 year. Attending Participation: I personally performed the entire procedure. Electronically signed by Eliana Quevedo M.D. Eliana Quevedo M.D. 08/29/2019 2:11:12 PM Jackeline Lozano M.D. Number of Addenda: 0 Note Initiated On: 08/29/2019 1:38 PM Eliana Quevedo MD ENDOSCOPY PROCEDURE S Final Result documented in this encounter Visit Diagnoses Not on filedocumented in this encounter Administered Medications Inactive Administered Medications - up to 3 most recent administrations Medication Order MAR Action Action Date Dose Rate Site sodium chloride 0.9% flush 0.5-20 mL 0.5-20 mL, intra-catheter, As needed, line care, Starting on Sun08/29/19 at 1308, Pre-Procedure (GI), Flush volume based on line type and size. Flush before and after each use. , Indications: FlushingIndications:Flushin g sodium chloride 0.9% infusion 30 mL/hr, intravenous, Continuous, Starting on Sun08/29/19 at 1345, Pre-Procedure (GI) Rate/Dose Verify 08/29/2019 1:37 PM PROFESSOR OF ART HISTORY 30 mL/hr New Bag 08/29/2019 1:20 PM PROFESSOR OF ART HISTORY 30 mL/hr 30 mL/hr Ri ght Forearm documented in this encounter Discontinued Medications Medication Sig Discontinue Reason Start Date End Da te mesalamine (LIALDA) 1.2 gram EC tablet Alternate therapy 019 08/29/2019 documented as of this encounter Historical Medications * This list may reflect changes made after this encounter. Medication Sig Dispense Quantity Refills Last Filled Start D ate End Date folic acid (FOLVITE) 1 mg tablet 08/07/2019 05/24/2020 added in this encounter Active and Recently Administered Medications Times are shown in PROFESSOR OF ART HISTORY. Continuous Medication Order 08/27/2019 08/28/2019 08/29/2019 sodium chloride 0.9% infusion 30 mL/hr, intravenous, Continuous, Starting on Sun08/29/19 at 1345, Pre-Procedure (GI) 1320 (New Bag - Prov ider: Waleska Marie RN)1337 (Rate/Dose Verify - Provider: Elda De La Paz CRNA)1427 (Stopped - Provider: Francesca Hearn JOSH) PRN Medication Order 08/27/2019 08/28/2019 08/29/2019 methylene blue (antidote) 5 mg/mL (0.5 %) injection (CANCELED) As needed, Starting on Sun08/29/19 at 1349, Intra-Op 1349 (Given - Provid er: Jackeline Lozano MD - Comment: 10CC IN 500CC WATER FOR CHROMOENDOSCOPY) sodium chloride 0.9% flush 0.5-20 mL 0.5-20 mL, intra-catheter, As needed, line care, Starting on Sun08/29/19 at 1308, Pre-Procedure (GI), Flush volume based on line type and size. Flush before and after each use. , Indications: Flushing documented in this encounter Orders Medications Ordered That Nilo ht Not Have Been Administered Count Last Ordered Date First Ordered Date methylene blue (antidote) 5 mg/mL (0.5 %) injection 1 08/29/2019 sodium chloride 0.9% flush 0.5-20 mL 1 08/03 documented in this encounter Care Teams Job Compositor Relationship Specialty Start Date End Date Lanre Parekh DO PCP - General Family Medicine 01/23/19 documented as of this encounter
--- OUTSIDE RECORDS SUMMARY | 2024-07-09 05:25 | XMS_ITS | Encounter Summary ---
Author Organization [facility] Address [address] [place] [address] Phone Care Team Providers Care Barrel And Receiver Aligner Name Role Phone Lanre Parekh Primary Care Provide r Encounter Details Date Type Department Care Team (Late st Contact Info) Description 05/16/[address] Medical Office Building [address] [place] [address] Fernando Mckeon MD [address] [address] Social History Tobacco Use Types Packs/Day Years Used Date Smoking Tobacco: Never Smokeless Tobacco: Never Alcohol Use Standard Drinks/Week Comments No 0 (1 standard drink = 0.6 oz pur e alcohol) Sex and Gender Information Value Date Recorded Sex Assigned at Not on file Legal 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 Continue current supplements. See him in yr. Please forward CBC anemic with high indices to his PCP. Tried to leave message no vm. Sent my chart message. CH BOILER FILLER CH BOILER FILLER documented in this encounter Plan of Treatment Not on file documented as of this encounter Visit Diagnoses Not on filedocumented in this encounter Care Teams Barrel And Receiver Aligner Relationship Specialty Start Date End Date Lanre Parekh DO PCP - General Family Medicine 01/23/19 documented as of this encounter
--- OUTSIDE RECORDS SUMMARY | 2024-07-09 05:25 | XMS_ITS | Encounter Summary ---
Author Organization [facility] Address [address] [place] [address] Phone Care Team Providers Care Cooker Meal Name Role Phone Lanre Parekh DO Primary Care Provide r Encounter Details Date Type Department Care Team (Late st Contact Info) Description 07/25/2019 Orders Only [facility] Surgery [address] [facility] [place] 8th [place] [address] [place] [phone] Meaghan, Gemecih, RMA Social History Tobacco Use Types Packs/Day Years Used Date Smoking Tobacco: Never Smokeless Tobacco: Never Alcohol Use Standard Drinks/Week Comments No 0 (1 standard drink = 0.6 oz pur e alcohol) Sex and Gender Information Value Date Recorded Sex Assigned at Not on file 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 Medication Sig Dispense Quantity Refills Last Filled Start D ate End Date mesalamine (LIALDA) 1.2 gram EC tablet 06/03/20192019 added in this encounter Care Teams Cooker Meal Relationship Specialty Start Date End Date Lanre Parekh DO PCP - General Family Medicine 01/23/19 documented as of this encounter
--- OUTSIDE RECORDS SUMMARY | 2024-07-09 05:25 | XMS_ITS | Encounter Summary ---
Author Organization [facility] Address [address] [place] [address] Phone Care Team Providers Care Gate Watchman Name Role Phone Izabella Lanre Conway Primary Care Provide r Reason for Referral * Consultation (Routine) - Closed Specialty Diagnoses / Procedures Referred By Contac t Referred To Contact Sleep Medicine Diagnoses Sleep apnea, unspecified type Eliana Quevedo MD Phone: tel: fax: Bhupendra Ko MD [address] [place] [address] Phone: tel: fax: Referral ID Status Reason Start Date Expiration Date V isits Requested Visits Authorized [id number] Closed Specialty Services Required 01/23/2019 08/03/2020 1 1 Question Answer Please select the performing region: [facility] (All Locations) [167] To provider: BHUPENDRA KO [[id number]] # of visits: 1 Comments Please call pt to schedule and MD is fine with any specialist that can see the pt the soonest. Pt said he took a home sleep study and it came back positive for sleep apnea. 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 * Telephone Encounter - Mona Esqueda MA - 01/23/2019 12:29 PM CDT ----- Message from Shanika Braun sent at 01/23/2019 11:51 AM CDT ----- Please send referral for Sleep Apnea documented in this encounter Plan of Treatment Scheduled Referrals Name Type Priority Associated Diagnoses Orde r Schedule Ambulatory referral to Sleep Medicine Outpatient Referral Routine Sleep apnea, unspecified type Ordered: 01/23/2019 documented as of this encounter Visit Diagnoses Diagnosis Sleep apnea, unspecified type- Primary documented in this encounter Care Teams Gate Watchman Relationship Specialty Start Date End Date Lanre Parekh DO PCP - General Family Medicine 01/23/19 documented as of this encounter
--- OUTSIDE RECORDS SUMMARY | 2024-07-09 05:25 | XMS_ITS | Encounter Summary ---
Author Organization [facility] Address [address] [place] [address] Phone Care Team Providers Care Embossing Clerk Name Role Phone Lanre Parekh Primary Care Provide r Encounter Details Date Type Department Care Team (Late st Contact Info) Description 03/04/2019 Orders Only [facility] Gastroenterology [address] [facility] 8th [place] [address] [place] [phone] Padma Mendoza, JOSH Crohn's disease of small and large intestines with complication (CMS/HCC) (Primary Dx); Elevated transaminase level; High risk medications (not anticoagulants) long-term use Social History Tobacco Use Types Packs/Day Years Used Date Smoking Tobacco: Never Smokeless Tobacco: Never Alcohol Use Standard Drinks/Week Comments No 0 (1 standard drink = 0.6 oz pur e alcohol) Sex and Gender Information Value Date Recorded Sex Assigned at Not on file 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 Gender Identity Not on file Sexual Orientation Not on file documented as of this encounter Progress Notes * Eliana Quevedo MD - 03/04/2019 8:50 AM CDT 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 metabolites are undetectable; needs to take 6MP 50 and allopurinol and recheck his metabolites in 1 month LFTs improved documented in this encounter Plan of Treatment Not on file documented as of this encounter Procedures Procedure Name Priority Date/Time Associated Diagnosis Comments COPY(IES) SENT TO: Routine 03/14/2019 9: 28 AM CDT THIOPURINE METABOLITES Routine 03/14/2019 9:28 AM CDT Crohn's disease of small and large intestines with complication (CMS/HCC) Elevated transaminase level High risk medications (not anticoagulants) long-term use HEPATIC FUNCTION PANEL Routine 03/14/2019 9:28 AM CDT Crohn's disease of small and large intestines with complication (CMS/HCC) Elevated transaminase level High risk medications (not anticoagulants) long-term use documented in this encounter Results * COPY(IES) SENT TO: (03/14/2019 9:28 AM CDT) COPY(IES) SENT TO: [facility] Comment: ?[facility] ?COPY TO ACCOUNT ?[address] [facility] [address] ?[place] [address] 03/14/2019 9:28 AM CDT 03/14/2019 9:29 AM CDT us Eliana Quevedo MD LAB BLOOD ORDERABLE S Final Result [facility] * (ABNORMAL) Thiopurine metabolites (03/14/2019 9:28 AM CDT) 6-TG, bld <50(L) 235 - 400 pmol/8x10( 8)RBC [facility] Comment: This test was developed and its analytical performance characteristics have been determined by [facility]. It has not been cleared or approved by the FDA. This assay has been validated pursuant to the CLIA regulations and is used for clinical purposes. 6 MMP <500 <5700 pmol/8x10( 8)RBC [facility] Comment: These results are useful in assessing [...] analytical performance characteristics have been determined by [facility]. It has not been cleared or approved by the FDA. This assay has been validated pursuant to the CLIA regulations and is used for clinical purposes. Blood specimen (specimen) 03/14/2019 9:28 AM CDT 03/14/2019 9:29 AM CDT Narrative Resulting Agency Comment Performing Organization Information: ?Site ID: [facility] ?[facility] ?Address: [address] [place] [address] ?Director: Marcio Gomes M.D., Ph.D Eliana Quevedo MD LAB BLOOD ORDERABLE S Final Result [facility] [place] [place] * (ABNORMAL) Hepatic function panel (03/14/2019 9:28 AM CDT) Protein, Total 7.6 6.4 - 8.4 g/dL [facility] [place] Albumin 4.5 3.6 - 5.1 g/dL [facility] [place] Globulin 3.1 2.2 - 4.0 g/dL (calc) [facility] [place] Alb/glob ratio 1.5 0.9 - 2.3 (calc) [facility] [place] Bilirubin, total 0.5 0.2 - 1.2 mg/dL [facility] [place] Bilirubin, direct 0.1 < OR = 0.2 mg/dL [facility] [place] Bilirubin, indirect 0.4 0.2 - 1.2 mg/dL (calc) [facility] [place] Alk phos 75 40 - 115 U/L [facility] [place] AST 25 10 - 40 U/L [facility] [place] ALT (SGPT) 55(H) 9 - 46 U/L [facility] [place] Blood specimen (specimen) 03/14/2019 9:28 AM CDT 03/14/2019 9:29 AM CDT Narrative Resulting Agency Comment Performing Organization Information: ?Site ID: [id number] ?Name: [facility] ?Address: [facility] [address] [place] [address] ?Director: Christopher Salas D.O., MPH us Eliana Quevedo MD LAB BLOOD ORDERABLE S Final Result [facility] [place] [facility] [place] documented in this encounter Visit Diagnoses Diagnosis Crohn's disease of small and large intestines with complication (HCC)- Primary Elevated transaminase level High risk medications (not anticoagulants) long-term use Encounter for long-term (current) use of other medications documented in this encounter Care Teams Embossing Clerk Relationship Specialty Start Date End Date Lanre Parekh DO PCP - General Family Medicine 01/23/19 documented as of this encounter
--- OUTSIDE RECORDS SUMMARY | 2024-07-09 05:25 | XMS_ITS | Encounter Summary ---
Author Organization [facility] Address [address] [place] [address] Phone Care Team Providers Care Accounts Executive Name Role Phone Lanre Parekh Primary Care Provide r Reason for Visit * Reason Comments Osteopenia * Diagnostic Imaging (Routine) - Closed Specialty Diagnoses / Procedures Referred By Renay rivero Referred To Contact Diagnoses Low bone mass Procedures Dexa Appendicular Bone Density Fernando Mckeon MD Phone: tel: fax: [facility] (All Locations) Referral ID Status Reason Start Date Expiration Date Visits Re quested Visits Authorized [id number] Closed 05/06/2018 07/01/2020 1 99 Encounter Details Date Type Department Care Team (Late st Contact Info) Description 05/12/2019 2:10 PM SOFTWARE QUALITY SPECIALIST Clinical Support [facility] [address] [place] [address] Advanced Medicine 5th [place] [address] [place] [address] Low bone mass Social History Tobacco Use Types Packs/Day Years Used Date Smoking Tobacco: Never Smokeless Tobacco: Never Alcohol Use Standard Drinks/Week Comments No 0 (1 standard drink = 0.6 oz pur e alcohol) Sex and Gender Information Value Date Recorded Sex Assigned at Not on file Legal Sex Male 11:11 PM SOFTWARE QUALITY SPECIALIST Gender Identity Not on file Sexual Orientation Not on file documented as of this encounter Plan of Treatment Not on file documented as of this encounter Procedures Procedure Name Priority Date/Time Associated Diagnosis Comments DEXA APPENDICULAR BONE DENSITY Schedule Routine, Read Routine (OP Routine) 05/12/2019 2:29 PM SOFTWARE QUALITY SPECIALIST Low bone mass documented in this encounter Results * Dexa Appendicular Bone Density (05/12/2019 2:29 PM SOFTWARE QUALITY SPECIALIST) Anatomical Region Laterality Modality Wrist N/A Radiographic Nancy ging Narrative 05/13/2019 12:23 PM SOFTWARE QUALITY SPECIALIST Patient Name: Nic Teran Date of : 1990 Date of scan: 05/12/2019 Bone mineral density was performed on a [employer] Discovery Densitometer. ?? Machine Cross-calibration and Precision studies have been performed with a least significant change of 0.024 g/cm at the spine, 0.020 g/cm at the total proximal femur, and 0.014g/cm at the forearm. HISTORY: ??This is a 28 y.o. ?? male with a history of crohn's disease, low bone mass and vitamin D deficiency. Currently on treatment with calcium and vitamin D. Previously treated with glucocorticoids. With a current complaint of back and neck pain. History of tobacco use: Social History Tobacco Use Smoking Status Never Smoker INDICATIONS: History of glucocorticoids use, vitamin D deficiency and history of low bone mass. FINDINGS: BONE MINERAL DENSITY OF THE LUMBAR SPINE Bone Mineral Density (BMD) of the lumbar spine was measured from L1-L4 and the average density was calculated to be 0.939 gm/cm. This corresponds to a Z-score standard deviations from the mean of age and gender matched controls of -1.4. When compared to the previous study of 05/06/2018 there has been no significant change noted. BONE MINERAL DENSITY OF THE PROXIMAL FEMUR Bone Mineral Density (BMD) of the left hip total was found to be 0.746 gm/cm2. This corresponds to a Z-score standard deviations from the mean of age and gender matched controls of -1.8. Femoral neck is 0.583 gm/cm2 with a Z-score ??of -2.4. When compared to the previous study of 05/06/2018 there has been no significant change noted. SUMMARY: Bone mineral density shows evidence of osteoporosis and marked increase risk of fracture.There has been no signicant changes in bone density since previous measurement. ADDITIONAL COMMENTS: If the [...] BMD of young normal adults. References: 1) Ross, Annals of Internal Medicine 114(11): ??919-923 (1990) 2) Lezama, Lancet 341 : 72-75 (1992) 3) Black, Journal Bone and Mineral Research 7(6): 633-8 (1991) 4) Wesley, Journal Bone and Mineral Research 8(10):1227-33 (1992) The history and data sections of the bone mineral density scan were prepared by Francesca Cary (R)(CBDT) who is accredited by the International Society of Clinical Densitometry. The overall patient assessment and scan interpretation were performed by Fernando Mckeon M.D. who is certified by the International Society of Clinical Densitometry. [id number] Fernando Mckeon MD IMG DXA PROCEDURES Edited Resul t - Final documented in this encounter Visit Diagnoses Diagnosis Low bone mass documented in this encounter Care Teams Accounts Executive Relationship Specialty Start Date End Date Lanre Parekh DO PCP - General Family Medicine 01/23/19 documented as of this encounter
--- OUTSIDE RECORDS SUMMARY | 2024-07-09 05:25 | XMS_ITS | Encounter Summary ---
Author Organization [facility] Address [address] [place] [address] Phone Care Team Providers Care Ticket Seller Name Role Phone Lanre Parekh DO Primary Care Provide r Encounter Details Date Type Department Care Team (Late st Contact Info) Description 06/02/2019 Orders Only [address] Medical Office Building [address] [place] [address] Fernando Mckeon MD [address] [address] Social History Tobacco Use Types Packs/Day Years Used Date Smoking Tobacco: Never Smokeless Tobacco: Never Alcohol Use Standard Drinks/Week Comments No 0 (1 standard drink = 0.6 oz pur e alcohol) Sex and Gender Information Value Date Recorded Sex Assigned at Not on file Legal 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 Gender Identity Not on file Sexual Orientation Not on file documented as of this encounter Ordered Prescriptions Prescription Sig Dispense Quantity Refills Last Filled Start Date End Date ergocalciferol (VITAMIN D) 50,000 unit capsule Take 1 capsule (50,000 Units total) by mouth every 14 (fourteen) days 6 capsule 3 06/02/2019 0 documented in this encounter Plan of Treatment Not on file documented as of this encounter Visit Diagnoses Not on filedocumented in this encounter Care Teams Ticket Seller Relationship Specialty Start Date End Date Lanre Parekh DO PCP - General Family Medicine 01/23/19 documented as of this encounter
--- OUTSIDE RECORDS SUMMARY | 2024-07-09 05:25 | XMS_ITS | Encounter Summary ---
Author Organization [facility] Address [address] [place] [address] Phone Care Team Providers Care Hydrometeorologist Name Role Phone Lanre Parekh DO Primary Care Provide r Encounter Details Date Type Department Care Team (Late st Contact Info) Description 07/01/2019 Orders Only [facility] Gastroenterology [address] [facility] 8th [place] [address] [place] [address] Padma Mendoza, JOSH Social History Tobacco Use Types Packs/Day Years Used Date Smoking Tobacco: Never Smokeless Tobacco: Never Alcohol Use Standard Drinks/Week Comments No 0 (1 standard drink = 0.6 oz pur e alcohol) Sex and Gender Information Value Date Recorded Sex Assigned at Not on file Legal Sex Male 11:11 PM PHARMACOLOGIST Gender Identity Not on file Sexual Orientation Not on file documented as of this encounter Plan of Treatment Not on file documented as of this encounter Visit Diagnoses Not on filedocumented in this encounter Care Teams Hydrometeorologist Relationship Specialty Start Date End Date Lanre Parekh DO PCP - General Family Medicine 01/23/19 documented as of this encounter
--- OUTSIDE RECORDS SUMMARY | 2024-07-09 05:25 | XMS_ITS | Encounter Summary ---
Author Organization [facility] Address [address] [place] [address] Phone Care Team Providers Care Manager Product Name Role Phone Lanre Parekh Primary Care Provide r Encounter Details Date Type Department Care Team (Late st Contact Info) Description 07/31/2019 10:00 AM PLASTERER SPRAY GUN Office Visit [facility] Gastroenterology [address] [facility] Advanced Medicine 8th [place] [address] [place] [phone] Eliana Quevedo MD [address] [place] [address] Crohn's disease of small and large intestines [...] on file Legal Sex Male 11:11 PM PLASTERER SPRAY GUN Gender Identity Not on file Sexual Orientation Not on file documented as of this encounter Last Filed Vital Signs Vital Sign Reading Time Taken Comments Blood Pressure 120/80 07/31/2019 10:02 AM PLASTERER SPRAY GUN Pulse 70 07/31/2019 10:02 AM PLASTERER SPRAY GUN Temperature 36.7 ??C (98 ??F) 07/31/2019 10:02 AM PLASTERER SPRAY GUN Respiratory Rate - - Oxygen Saturation 96% 07/31/2019 10:02 AM PLASTERER SPRAY GUN Inhaled Oxygen Concentration - - Weight 80.6 kg (177 lb 9.6 oz) 07/31/2019 10:02 AM PLASTERER SPRAY GUN Height 170.2 cm (5' 7 ) 07/31/2019 10:02 AM PLASTERER SPRAY GUN Body Mass Index 27.82 07/31/2019 10:02 AM PLASTERER SPRAY GUN documented in this encounter Patient Instructions * Patient Instructions* Padma Mendoza RN - 07/31/2019 10:00 AM PLASTERER SPRAY GUN Keep colonoscopy as scheduled . follow up in office inn 6 months Labs due at [facility] in - orders to patient TERER SPRAY GUN documented in this encounter Progress Notes * Jackeline Lozano MD - 07/31/2019 10:00 AM CST Images from the original note were not included. [facility] Subjective NAME: Nic Teran : 1990 DATE: 07/31/2019 Referred here Primary Care Physician: Lanre Parekh DO Consult requested by: Referral, Self Chief Complaint: Follow-up for stricturing Crohn's disease, currently on [...] mg daily 9. Balsalazide 1 tab daily ?? PROBLEM LIST: 1. ileocolonic perforating and fistulizing Crohn's diseasedx 2004 and s/p and ileocecectomy in 12/2017. Last colonoscopy in August 2018 showed mild active disease in the jayna-terminal ileum while on Humira and methotrexate. Then we switched him from methotrexate to 6 mercaptopurine. 2. Osteoporosis HISTORY OF PRESENT ILLNESS: Nic Teran is a very pleasant 27-year-old man with a history of ileocolonic Crohn's disease dating back to about 2005, who is currently maintained on 6MP and Humira, who presents today for follow-up of his Crohn's disease. In December 2017 had uncomplicated ileocecectomy. ??At that time he was taking Colestid, Imodium and Levsin and reporting that he was having about 2 to 3 solid stools a day. Ranjan have an MRE subsequently which was completed in May 2018, which showed stable postsurgicalchanges of his ileocolonic resection that was known with improving mckenna-anastomotic inflammation. ??There was an area about 1.5 cm of distal neoterminal ileum that showed mild inflammation, but no evidence of fistulization, stenosis, or other fluid collections. ??His last colonoscopy in August 2018 showed few aphthous ulcers in the neoterminal ileum while on Humira and methotrexate. ?? Past Medical History: Diagnosis Date ??? Allergic [...] ??? Ulcerative colitis Mother's Sister Social History Socioeconomic History ??? Marital status: [...] Substance and Sexual Activity ??? Alcohol use: No ??? Drug use: Yes Types: Marijuana ??? Sexual activity: Not on file Lifestyle ??? Physical activity: Days per week: Not on file Minutes per session: Not on file ??? Stress: Not on file Relationships ??? Social connections: Talks on phone: Not on file Gets together: Not on file Attends jain service: Not on file Active member of [...] ??? 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 Flagyl [Metronidazole] Other (See comments) Neuropathy Current Outpatient Medications Medication Sig Dispense Refill ??? adalimumab (HUMIRA, CF, PEN) 40 mg/0.4 mL pen injector kit Inject 0.4 mL (40 mg total) under the skin every 14 (fourteen) days SAFETY LABS REQUIRED EVERY 3 MONTHS FOR REFILLS DUE 08/2019 2 each 5 ??? allopurinol (ZYLOPRIM) 100 mg tablet Take 1 tablet (100 mg total) by mouth daily 90 tablet 0 ??? balsalazide (COLAZAL) 750 mg capsule Take 3 capsules three times daily. 270 capsule 11 ??? colestipol (COLESTID) 1 gram tablet Take 1 tab PO 4 time daily ( with meals and at bedtime) 120tablet 0 ??? ergocalciferol (VITAMIN D) 50,000 unit capsule Take 1 capsule (50,000 Units total) by mouth every 14 (fourteen) days 6 capsule 3 ??? hyoscyamine (LEVSIN) 0.125 mg SL tablet [...] per week daily,LABS Due week of 08/15/2019(metabolites) 96 tablet 0 ??? mesalamine (LIALDA) 1.2 gram EC tablet ??? multivitamin capsule Take 1 capsule by mouth every morning. No current facility-administered medications for this visit. The new patient intake form was reviewed with the patient on 07/31/2019. Review of Systems: Constitutional: Negative. HENT: Negative Eyes: Negative. Respiratory: Negative. Cardiovascular: Negative. Gastrointestinal: See HPI Endocrine: Negative. Genitourinary: Negative. Musculoskeletal: Negative. Skin: Negative. Allergic/Immunologic: Negative. Neurological: Negative. Hematological: Negative. Psychiatric/Behavioral: Negative. Breast: Negative. Vital Signs: BP 120/80 Pulse 70 Temp 36.7 ??C (98 ??F) (Oral) Ht 170.2 cm (5' 7 ) Wt 80.6 kg (177 lb 9.6oz) SpO2 96% BMI 27.82 kg/m?? Physical Exam: GENERAL: Well-appearing, in no acute distress. HEENT: Sclerae anicteric. Oropharynx without lesion. NECK: Supple without lymphadenopathy or thyromegaly. LUNGS: Clear to auscultation bilaterally, breath sounds symmetrical bilaterally CARDIOVASCULAR: Regular rate and rhythm with no murmur, rub or gallop ABDOMEN: Flat, soft, non-tender; bowel sounds normal active in all four quadrants, no hepatosplenomegaly, or palpable masses RECTAL: deferred EXTREMITIES: No clubbing, cyanosis or edema. SKIN: No rash or jaundice. NEUROLOGIC: Grossly nonfocal on simple observation with normal insight, memory, affect, and orientation Labs: All labs and images were reviewed by me and the supervising attending Assessment & plan The patient has ileocolonic perforating and fistulizing Crohn's disease diagnosed 2004 and s/p and ileocecectomy in 12/2017. He is on Humira and 6-MP. Last colonoscopy in August 2018 while on humiraand MTX showed few aphthous ulcers in the jayna-TI. Humira level (11) and thiopurine metabolities are appropriate. We will repeat colonoscopy now while on the new combination therapy to assess responseto therapy. - High risk treatment: we provided a balanced discussion on benefits and risks associated with humira and 6 MP .Potential adverse events discussed include, but are not limited to: anaphylaxis; bacterial, viral and fungal infections; hematologic and solid malignancies including an increased risk of lymphoma and skin cancers; bone marrow toxicity including anemia, lymphopenia and immune suppression; hepatotoxicity and potential renal toxicity. Any potential adverse events will be monitored by clinical examination and routine labs. We also encouraged the patient to contact me with any new symptoms or concerns. Healthcare maintenance - Colorectal cancer surveillance: The patient has no history of dysplasia. Next colonoscopy with methylene blue is recommended in now - Vaccines: The patient is up to date for his vaccinations including influenza, pneumovax, prevnar. - Annual dermatologic evaluation is recommended given increased risk of skin cancer Jackeline Lozano MD GI Fellow Cosigned by Eliana Quevedo MD at 07/31/2019 12:23 PM PLASTERER SPRAY GUN TERER SPRAY GUN TERER SPRAY GUN Associated attestation - Eliana Quevedo MD - 07/31/2019 12:23 PM PLASTERER SPRAY GUN I have seen and examined the patient. I agree with the findings and plan of care as documented in the resident/fellow's note. documented in this encounter Plan of Treatment Scheduled Orders Name Type Priority Associated Diagnoses Orde r Schedule CBC with auto differential Lab Routine Crohn's disease of small and large intestines with complication (CMS/HCC) High risk medications (not anticoagulants) long-term use every 3 months for 4 Occurrences starting 07/31/2019 until 07/31/2020 Hepatic function panel Lab Routine Crohn's disease of small and large intestines with complication (CMS/HCC) High risk medications (not anticoagulants) long-term use 4 Occurrences starting 07/31/2019 until 07/31/2020 TB test, quantiferon gold Lab Routine Crohn's disease of small and large intestines with complication (CMS/HCC) High risk medications (not anticoagulants) long-term use Expected: 08/04/2019, Expires: 07/31/2020 documented as of this encounter Visit Diagnoses Diagnosis Crohn's disease of small and large intestines with complication (HCC)- Primary High risk medications (not anticoagulants) long-term use Encounter for long-term (current) use of other medications documented in this encounter Care Teams Manager Product Relationship Specialty Start Date End Date Lanre Parekh DO PCP - General Family Medicine 01/23/19 documented as of this encounter
--- OUTSIDE RECORDS SUMMARY | 2024-07-09 05:25 | XMS_ITS | Encounter Summary ---
Author Organization [facility] Address [address] [place] [address] Phone Care Team Providers Care Survey Supervisor Name Role Phone Lanre aPrekh Primary Care Provide r Encounter Details Date Type Department Care Team (Late st Contact Info) Description 06/10/2019 Orders Only [facility] Gastroenterology 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 270 capsule 11 06/10/2019 1 documented in this encounter Plan of Treatment Not on file documented as of this encounter Visit Diagnoses Diagnosis Crohn's disease of both small and large intestine with intestinal obstruction (HCC) documented in this encounter Discontinued Medications Medication Sig Discontinue Reason Start Date End Da te balsalazide (COLAZAL) 750 mg capsuleIndications:Ulce rative Colitis Take 3 capsules three times daily. 12/09/2018 06/10/2019 documented as of this encounter Care Teams Survey Supervisor Relationship Specialty Start Date End Date Lanre Parekh DO PCP - General Family Medicine 01/23/19 documented as of this encounter
--- OUTSIDE RECORDS SUMMARY | 2024-07-09 05:25 | XMS_ITS | Encounter Summary ---
Author Organization [facility] Address [address] [place] [address] Care Team Providers Care Plastics Design Engineer Name Role Phone Lanre Parekh Primary Care Provide r Encounter Details Date Type Department Care Team (Late st Contact Info) Description 08/29/2019 1:37 PM SALES ACCOUNT ASSOCIATE Anesthesia Event [facility] [address] [address] [place] [address] [place] [address] Anesthesia Record Procedure Summary Procedure Name Responsible Anesthesiologist Anesthesia Start Time Anesthesia Stop Time COLONOSCOPY (Colon) Catrachito Lyons MD 08/29/19 1337 08/29/19 1403 Events Date Time Event Comment 08/29/2019 1328 1333 AN Equip Check 1337 An Start 1341 An Start Data 1342 In Room 1342 Start Supplemental O2 1342 Patient Positioned Laterally 1344 An Induction The patient was reevaluated immediately before moderate or deep sedation use and before anesthesia induction. 1344 Anesthesia Ready 1346 Proc Start 1356 Proc Fin 1359 Out of Room 1403 Handoff to RN I completed my handoff [...] disposition at the time of handoff: PACU 1403 An Stop Meds Name Total propofol 240 mg lidocaine 2 % 5 mL sodium chloride 0.9% infusion 0 mL * Agents Name O2 * Blood No blood administrations on file. Lines, Drains, and Airways Type Details Placement Removal RETIRED Surgical Site 01/11/18; 0939; Mid-line, Lower; Abdomen; 01/23/22; Not present on admission 01/11/18 0939 by Malou Coulter RN 01/23/22 0000 by Yeimy Vincent RN Peripheral IV Placement Date: 08/29/19; Placement Time: 1328; Catheter Size: 22 G; Location: Forearm; Site Prep: Chlorhexidine; Technique: Anatomical landmarks; Inserted by: Frank; Insertion Attempts: 1; Patient Tolerance: Hypotension, Bradycardia; Removal Date: 08/29/19; Removal Time: 142; Removal Reason: Discharge 08/29/19 1328 by Waleska Marie RN 08/29/19 1427 by Francesca Hearn RN documented in this encounter Social History Tobacco Use Types Packs/Day Years Used Date Smoking Tobacco: Never Smokeless Tobacco: Never Alcohol Use Standard Drinks/Week Comments Yes 0 (1 standard drink = 0.6 oz pur e alcohol) wine-rarely Sex and Gender Information Value Date Recorded Sex Assigned at Not on file Legal Sex Male 11:11 PM SALES ACCOUNT ASSOCIATE Gender Identity Not on file Sexual Orientation Not on file documented as of this encounter OR Notes * Anesthesia Postprocedure Evaluation - Catrachito Lyons MD - 08/29/2019 2:36 PM CST Patient: Nic Teran Procedure Summary Date: 08/29/19 Room / Location: [facility] ENDOSCOPY ROOM [facility] END[facility]COPY Anesthesia Start: 1337 Anesthesia Stop: 1403 Procedure: COLONOSCOPY (N/A Colon) Diagnosis: Crohn's disease of both small and large intestine with other complication (CMS/HCC) (Crohn's disease of both small and large intestine) Provider: Eliana Quevedo MD Responsible Provider: Catrachito Lyons MD Anesthesia Type: general ASA Status: 2 Anesthesia Type: general Last vitals BP 96/70 Pulse 75 Temp 36.1 ??C (97 ??F) (Temporal) Resp 19 SpO2 98% Anesthesia Post Evaluation Patient location during evaluation: PACU Patient participation: complete - patient participated Level of consciousness: fully awake Pain score: 0 Pain management: adequate Airway patency: adequate Evidence of recall: no Anesthetic complications: no Cardiovascular status: hemodynamically stable and acceptable Respiratory status: acceptable and room air Hydration status: acceptable Pt is: normothermic Nausea/Vomiting status: none S ACCOUNT ASSOCIATE * Anesthesia Preprocedure Evaluation - Catrachito Lyons MD - 08/29/2019 1:29 PM CST Images from the original note were not included. Anesthesia Evaluation Nic Teran is a 28 y.o. male Procedure(s): COLONOSCOPY Pre-Op Diagnosis Codes: * Crohn's disease of both small and large intestine with other complication (CMS/HCC) [K50.818] Patient Active Problem List Diagnosis ??? Crohn's [...] Dose Start Date End Date Provider adalimumab (HUMIRA, CF, PEN) 40 mg/0.4 mL pen injector kit 05/13/19 -- Eliana Quevedo MD Inject 0.4 mL (40 mg total) under the skin every 14 (fourteen) days SAFETY LABS REQUIRED EVERY 3 MONTHS FOR REFILLS DUE 08/2019 Notes: PA approved through [employer] #[id number] starting 03/23/19 through 04/21/20 allopurinol (ZYLOPRIM) 100 mg tablet 07/01/19 06/30/20 Eliana Quevedo MD Take 1 tablet (100 mg total) by mouth daily Notes: aware of drug interaction with 6MP and wishes to dispense both balsalazide (COLAZAL) 750 mg capsule 06/10/19 -- Eliana Quevedo MD Take 3 capsules three times daily. colestipoL (COLESTID) 1 gram tablet 08/04/19 -- Eliana Quevedo MD Take 1 tab PO 4 time daily ( with meals and at bedtime) ergocalciferol (VITAMIN D) 50,000 unit capsule 06/02/19 06/02/20 Fernando Mckeon MD Take 1 capsule (50,000 Units total) by mouth every 14 (fourteen) days folic acid (FOLVITE) 1 mg tablet 08/07/19 -- Historical Provider, hyoscyamine (LEVSIN) 0.125 mg SL tablet 05/20/19 05/19/20 Eliana Quevedo MD Take 1 tablet (0.125 mg total) by mouth every 6 (six) hours as needed for cramping or diarrhea Dissolve tab under the tongue L.acid/L.casei/B.bif/B.raf/FOS (PROBIOTIC BLEND ORAL) -- -- Historical ProviderMD mercaptopurine (PURINETHOL) 50 mg tablet 07/01/19 -- Eliana Quevedo MD Take 1 tabs PO 6 days per week, take 2 tabs PO daily -1 day per week daily,LABS Due week of 08/15/2019(metabolites) Notes: Dose ibrahim as of 07/01/19-: aware of drug interaction with Allopurinol and wishes to dispense both mesalamine (LIALDA) 1.2 gram EC tablet 06/03/19 -- Historical Provider, multivitamin capsule -- -- Historical Provider, Current Facility-Administered Medications: ??? sodium chloride 0.9% [...] Family history of hypertension - (Added by Conv) ??? Ulcerative colitis Mother's Sister Vitals: 08/29/19 1312 Temp: 36.1 ??C (97 ??F) PT: No results found for requested [...] Medication protocol when under care of a MOBILE DEVICE ENGINEER Planned anesthesia: General Informed Consent: Anesthesia plan and risks discussed with patient. Consent and Attending signature: I and/or my designee have discussed the anesthesia plan, benefits, possible alternatives, parental presence at time of induction (if indicated), and clinically relevant risks that may include dental injury, unintentional awareness, and/or other complications. The patient and/or parent/legal guardian understand, and agree to proceed. All questions answered. S ACCOUNT ASSOCIATE documented in this encounter Plan of Treatment Not on file documented as of this encounter Visit Diagnoses Not on filedocumented in this encounter Administered Medications Inactive Administered Medications - up to 3 most recent administrations Medication Order MAR Action Action Date Dose Rate Site lidocaine (XYLOCAINE) 20 mg/mL (2 %) injection intravenous, As needed, Starting on Sun08/29/19 at 1344, Anesthesia Intra-op, Indications: Administration of Local AnesthesiaIndications:Administratio n of Local Anesthesia Given 08/29/2019 1:44 PM SALES ACCOUNT ASSOCIATE 5 mL propofoL (DIPRIVAN) IV intravenous, As needed, Starting on Sun08/29/19 at 1344, Anesthesia Intra-op Given 08/29/2019 1:52 PM SALES ACCOUNT ASSOCIATE 40 mg Given 08/29/2019 1:48 PM SALES ACCOUNT ASSOCIATE 100 mg Given 08/29/2019 1:44 PM SALES ACCOUNT ASSOCIATE 100 mg sodium chloride 0.9% infusion 30 mL/hr, intravenous, Continuous, Starting on Sun08/29/19 at 1345, Pre-Procedure (GI) Rate/Dose Verify 08/29/2019 1:37 PM SALES ACCOUNT ASSOCIATE 30 mL/hr New Bag 08/29/2019 1:20 PM SALES ACCOUNT ASSOCIATE 30 mL/hr 30 mL/hr Ri ght Forearm documented in this encounter Care Teams Plastics Design Engineer Relationship Specialty Start Date End Date Lanre Parekh DO PCP - General Family Medicine 01/23/19 documented as of this encounter
--- OUTSIDE RECORDS SUMMARY | 2024-07-09 05:25 | XMS_ITS | Encounter Summary ---
Author Organization [facility] Address [address] [place] [address] Phone Care Team Providers Care Bird Tender Name Role Phone Lanre Parekh Primary Care Provide r Encounter Details Date Type Department Care Team (Late st Contact Info) Description 04/22/2019 Documentation [facility] Gastroenterology [facility] 8th [place] [address] [place] [phone] Shanika Braun Social History Tobacco Use Types Packs/Day Years Used Date Smoking Tobacco: Never Smokeless Tobacco: Never Alcohol Use Standard Drinks/Week Comments No 0 (1 standard drink = 0.6 oz pur e alcohol) Sex and Gender Information Value Date Recorded Sex Assigned at Not on file Legal 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 Male 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
--- OUTSIDE RECORDS SUMMARY | 2024-07-09 05:25 | XMS_ITS | Encounter Summary ---
Author Organization [facility] Address [address] [place] [address] Phone Care Team Providers Care Psychology Assistant Name Role Phone Lanre Parekh Primary Care Provide r Encounter Details Date Type Department Care Team (Late st Contact Info) Description 07/01/2019 Orders Only [facility] Gastroenterology [facility]ly [facility] [id number] 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 Gender Identity Not on file Sexual Orientation Not on file documented as of this encounter Ordered Prescriptions Prescription Sig Dispense Quantity Refills Last Filled Start Date End Date allopurinol (ZYLOPRIM) 100 mg tabletIndications: Crohn's disease of both small and large intestine with intestinal obstruction (HCC) Take 1 tablet (100 mg total) by mouth daily 90 tablet 07/01/2019 09/08/2019 mercaptopurine (PURINETHOL) 50 mg tabletIndications: Crohn's Disease Take 1 tabs PO 6 days per week, take 2 tabs PO daily -1 day per week daily,LABS Due week of 08/15/2019(me tabolites) 96 tablet 07/01/2019 09/08/2019 documented in this encounter Miscellaneous Notes * Addendum Note - Christopher Thornton CLT - 07/01/2019 8:05 AM CSTAddended by: CHRISTOPHER THORNTON on: 09/02/2019 07:53 AM Modules accepted: Orders WAFER DEPOSITOR documented in this encounter Plan of Treatment Scheduled Orders Name Type Priority Associated Diagnoses Orde r Schedule CBC with auto differential Lab Routine Crohn's disease of small and large intestines with complication (CMS/HCC) High risk medications (not anticoagulants) long-term use Expected: 08/15/2019 (Approximate), Expires: 07/01/2020 Hepatic function panel Lab Routine Crohn's disease of small and large intestines with complication (CMS/HCC) High risk medications (not anticoagulants) long-term use Expected: 08/15/2019 (Approximate), Expires: 07/01/2020 documented as of this encounter Visit Diagnoses [...] 50 mg tabletIndications:Crohn' s Disease Take 1 tabs PO daily SAFETY LABS REQUIRED EVERY 3 MONTHS FOR REFILLS DUE 08/2019 Reorder 05/13/2019 07/01/2019 allopurinol (ZYLOPRIM) 100 mg tabletIndications:Crohn' s disease of both small and large intestine with intestinal obstruction (HCC) Take 1 tablet (100 mg total) by mouth daily Reorder 05/13/2019 07/01/2019 documented as of this encounter Care Teams Psychology Assistant Relationship Specialty Start Date End Date Lanre Parekh DO PCP - General Family Medicine 01/23/19 documented as of this encounter
--- OUTSIDE RECORDS SUMMARY | 2024-07-09 05:25 | XMS_ITS | Encounter Summary ---
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 Gender Identity Not on file Sexual Orientation Not on file documented as of this encounter Ordered Prescriptions Prescription Sig Dispense Quantity Refills Last Filled Start Date End Date allopurinol (ZYLOPRIM) 100 mg tabletIndications: Crohn's disease of both small and large intestine with intestinal obstruction (HCC) Take 1 tablet (100 mg total) by mouth daily 90 tablet 03/26/2019 05/13/2019 mercaptopurine (PURINETHOL) 50 mg tabletIndications: Crohn's Disease Take 1 tabs PO daily ( Labs due Week of 05/07/19 w/metabolite s) 90 tablet 03/26/2019 05/13/2019 documented in this encounter Progress Notes * Padma Mendoza RN - 03/26/2019 1:42 PM CDT cbc documented in this encounter Miscellaneous Notes * Result Encounter Note - Eliana Quevedo MD - 01/23/2020 10:39 AM CDT Increase to 100mg 4 days/wk and 50mg 3d/wk documented in this encounter Plan of Treatment Not on file documented as of this encounter Procedures Procedure Name Priority Date/Time Associated Diagnosis Comments COPY(IES) SENT TO: Routine 01/19/2020 1: 12 PM CDT THIOPURINE METABOLITES Routine 01/19/2020 1:12 PM CDT Crohn's disease of both small and large intestine with intestinal obstruction (CMS/HCC) High risk medications (not anticoagulants) long-term use CBC WITH AUTO DIFFERENTIAL Routine 01/19/2020 1:12 PM CDT Crohn's disease of both small and large intestine with intestinal obstruction (CMS/HCC) High risk medications (not anticoagulants) long-term use HEPATIC FUNCTION PANEL Routine 01/19/2020 1:12 PM CDT Crohn's disease of both small and large intestine with intestinal obstruction (CMS/HCC) High risk medications (not anticoagulants) long-term use documented in this encounter Results * COPY(IES) SENT TO: (01/19/2020 1:12 PM CDT) COPY(IES) SENT TO: [facility] Comment: ?[facility] ?COPY TO ACCOUNT ?[id number] [facility] [address] ?[place] [address] 01/19/2020 1:12 PM CDT 01/19/2020 1:13 PM CDT Eliana Quevedo MD LAB BLOOD ORDERABLE S Final Result Performing Organization Address [facility] Co de Phone Number [facility] * (ABNORMAL) Thiopurine metabolites (01/19/2020 1:12 PM CDT) 6-TG, bld 217(L) 235 - 400 pmol/8x10( 8)RBC [facility] Comment: This test was developed and its analytical performance characteristics have been determined by [employer]. It has not been cleared or approved by the FDA. This assay has been validated pursuant to the CLIA regulations and is used for clinical purposes. 6 MMP <500 <5700 pmol/8x10( 8)RBC [facility] Comment: These results are useful [...] analytical performance characteristics have been determined by [employer]. It has not been cleared or approved by the FDA. This assay has been validated pursuant to the CLIA regulations and is used for clinical purposes. ? Your request to have a duplicate copy faxed has been acknowledged. ?Queued to: ??[id number] Blood specimen (specimen) 01/19/2020 1:12 PM CDT 01/19/2020 1:13 PM CDT Eliana Quevedo MD LAB BLOOD ORDERABLE S Final Result [facility] [address] [place] [address] * Hepatic function panel (01/19/2020 1:12 PM CDT) Pathologist [facility] Protein, Total 8.1 6.4 - 8.4 g/dL [facility] Albumin 4.7 3.6 - 5.1 g/dL [facility] Globulin 3.4 2.2 - 4.0 g/dL (calc) [facility] Alb/glob ratio 1.4 0.9 - 2.3 (calc) [facility] Bilirubin, total 0.5 0.2 - 1.2 mg/dL [facility] Bilirubin, direct 0.1 < OR = 0.2 mg/dL [facility] Bilirubin, indirect 0.4 0.2 - 1.2 mg/dL (calc) [facility] Alk phos 86 36 - 130 U/L [facility] AST 25 10 - 40 U/L [facility] ALT (SGPT) 39 9 - 46 U/L [facility] Blood specimen (specimen) 01/19/2020 1:12 PM CDT 01/19/2020 1:13 PM CDT us Eliana Quevedo MD LAB BLOOD ORDERABLE S Final Result [facility] [address] [place] [address] * (ABNORMAL) CBC with auto differential (01/19/2020 1:12 PM CDT) Pathologist [facility] WBC 5.8 3.8 - 10.8 Thousand/u L [facility] RBC, POC 4.02(L) 4.20 - 5.80 Million/uL [facility] Hgb 13.6 13.2 - 17.1 g/dL [facility] Hct 40.5 38.5 - 50.0 % [facility] MCV 100.7(H) 80.0 - 100.0 fL [facility] MCH 33.8(H) 27.0 - 33.0 pg [facility] MCHC 33.6 32.0 - 36.0 g/dL [facility] Rdw 13.6 11.0 - 15.0 % [facility] Platelets 265 140 - 400 Thousand/u L [facility] MPV 10.4 7.5 - 12.5 fL [facility] Neutrophils, abs 2,946 1,500 - 7,800 cells/uL [facility] Lymphocytes, abs 2,413 850 - 3,900 cells/uL [facility] Monocyte abs 331 200 - 950 cells/uL [facility] Eosinophils, abs 70 15 - 500 cells/uL [facility] Basophils, abs 41 0 - 200 cells/uL [facility] Neutrophils 50.8 % [facility] Lymphocyte pct 41.6 % [facility] Monocytes 5.7 % [facility] Eosinophils 1.2 % [facility] Basophils 0.7 % [facility] Blood specimen (specimen) 01/19/2020 1:12 PM CDT 01/19/2020 1:13 PM CDT us Eliana Quevedo MD LAB BLOOD ORDERABLE S Final Result [facility] [address] [place] [address] documented in this encounter Visit Diagnoses Diagnosis High risk medications (not anticoagulants) long-term use- Primary Encounter for long-term (current) use of other medications Crohn's disease of both small and large intestine with intestinal obstruction (HCC) documented in this encounter Discontinued Medications Medication Sig Discontinue Reason Start Date End Da te mercaptopurine (PURINETHOL) 50 mg tabletIndications:Crohn's Disease Take 1 tabs PO daily Labs due the weeks of: 01/24, 02/07, 02/21 and 03/07 (with repeat metabolites). Reorder 01/08/2019 03/26/2019 allopurinol (ZYLOPRIM) 100 mg tabletIndications:Crohn's disease of both small and large intestine with intestinal obstruction (HCC) Take 1 tablet (100 mg total) by mouth daily Reorder 01/08/2019 03/26/2019 documented as of this encounter Care Teams Sport Psychologist Relationship Specialty Start Date End Date Lanre Parekh DO PCP - General Family Medicine 01/23/19 documented as of this encounter
--- OUTSIDE RECORDS SUMMARY | 2024-07-09 05:25 | XMS_ITS | Encounter Summary ---
Author Organization [facility] Address [address] [place] [address] Phone Care Team Providers Care Janitorial Supervisor Name Role Phone Trenton Bess MD Primary Care Provider [phone] Encounter Details Date Type Department Care Team (Late st Contact Info) Description 01/17/2019 Orders Only [facility] Gastroenterology [address] [facility] 8th [place] [address] [place] [phone] Meaghan, Gemecih, RMA Social History Tobacco Use Types Packs/Day Years Used Date Smoking Tobacco: Never Smokeless Tobacco: Never Alcohol Use Standard Drinks/Week Comments No 0 (1 standard drink = 0.6 oz pur e alcohol) Sex and Gender Information Value Date Recorded Sex Assigned at Not on file 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 predniSONE (DELTASONE) 20 mg tablet 0 11/18/2018 04/03/2019 cefdinir (OMNICEF) 300 mg capsule 0 11/18/2018 05/12/2019 amoxicillin-clavu lanate (AUGMENTIN) 875-125 mg per tablet TK 1 T PO Q 12 H FOR 10 DAYS 0 12/22/2018 04/03/2019 amoxicillin (AMOXIL) 875 mg tablet TK 1 T PO Q 12 H FOR 10 DAYS 0 11/14/2018 04/03/2019 added in this encounter Care Teams Janitorial Supervisor Relationship Specialty Start Date End Date Trenton Bess MD PCP - General 07/29/18 01/22/19 documented as of this encounter
--- OUTSIDE RECORDS SUMMARY | 2024-07-09 05:25 | XMS_ITS | Encounter Summary ---
Author Organization [facility] Address [address] [place] [address] Phone Care Team Providers Care Laundry Operator Wash Room Name Role Phone Lanre Parekh DO Primary Care Provide r Encounter Details Date Type Department Care Team (Late st Contact Info) Description 05/23/2019 Orders Only [facility] Gastroenterology [address] [facility] 8th [place] [address] [place] [address] Padma Mendoza, JOSH Social History Tobacco Use Types Packs/Day Years Used Date Smoking Tobacco: Never Smokeless Tobacco: Never Alcohol Use Standard Drinks/Week Comments No 0 (1 standard drink = 0.6 oz pur e alcohol) Sex and Gender Information Value Date Recorded Sex Assigned at Not on file 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
--- OUTSIDE RECORDS SUMMARY | 2024-07-09 05:25 | XMS_ITS | Encounter Summary ---
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
--- OUTSIDE RECORDS SUMMARY | 2024-07-09 05:25 | XMS_ITS | Encounter Summary ---
Author Organization [facility] Address [address] [place] [address] Phone Care Team Providers Care Unit Aid Name Role Phone Lanre Parekh Primary Care Provide r Encounter Details Date Type Department Care Team (Late st Contact Info) Description 06/23/2019 Orders Only [facility] Gastroenterology [address] [facility] Medicine 8th [place] [address] [place] [phone] Padma Mendoza, RN Crohn's disease of small and large intestines [...] on file Legal 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 Current interpretive data was last revised on 07. 6-MMP, bld <886 0 - 5,699 pmol/RBCs [facility] Comment: Interpretive Data Units of Measure are pmol/8x10E8 RBCs Testing performed by: [facility], [place], [place] ??[phone]. Current interpretive data was last revised on 07. Blood specimen (specimen) 06/26/2019 12:11 PM BATCH RECORDS CLERK 06/26/2019 12:26 PM BATCH RECORDS CLERK us Eliana Quevedo MD LAB BLOOD ORDERABLE S Final Result [facility] Department [place] [address] documented in this encounter Visit Diagnoses Diagnosis Crohn's disease of small and large intestines with complication (HCC)- Primary High risk medications (not anticoagulants) long-term use Encounter for long-term (current) use of other medications documented in this encounter Care Teams Unit Aid Relationship Specialty Start Date End Date Lanre Parekh DO PCP - General Family Medicine 01/23/19 documented as of this encounter
--- OUTSIDE RECORDS SUMMARY | 2024-07-09 05:25 | XMS_ITS | Encounter Summary ---
Author Organization [facility] Address [address] [place] [address] Phone Care Team Providers Care Military Pay Technician Name Role Phone Lanre Parekh Primary Care Provide r Encounter Details Date Type Department Care Team (Late st Contact Info) Description 08/04/2019 Orders Only [facility] Gastroenterology [address] [facility] Medicine 8th [place] [address] [place] [phone] Padma Mendoza RN Diarrhea, unspecified type Social History Tobacco Use Types Packs/Day Years Used Date Smoking Tobacco: Never Smokeless Tobacco: Never Alcohol Use Standard Drinks/Week Comments No 0 (1 standard drink = 0.6 oz pur e alcohol) Sex and Gender Information Value Date Recorded Sex Assigned at Not on file 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 Gender Identity Not on file Sexual Orientation Not on file documented as of this encounter Ordered Prescriptions Prescription Sig Dispense Quantity Refills Last Filled Start Date End Date colestipoL (COLESTID) 1 gram tabletIndications:D iarrhea, unspecified type Take 1 tab PO 4 time daily ( with meals and at bedtime) 120 tablet 11 08/04/2019 10/08/2020 documented in this encounter Plan of Treatment Not on file documented as of this encounter Visit Diagnoses Diagnosis Diarrhea, unspecified type documented in this encounter Discontinued Medications Medication Sig Discontinue Reason Start Date End Da te colestipol (COLESTID) 1 gram tabletIndications:Diarrhe a, unspecified type Take 1 tab PO 4 time daily ( with meals and at bedtime) Reorder 06/26/2019 08/04/2019 documented as of this encounter Care Teams Military Pay Technician Relationship Specialty Start Date End Date Lanre Parekh DO PCP - General Family Medicine 01/23/19 documented as of this encounter
--- OUTSIDE RECORDS SUMMARY | 2024-07-09 05:25 | XMS_ITS | Encounter Summary ---
Author Organization [facility] Address [address] [place] [address] Care Team Providers Care Milk Route Supervisor Name Role Phone Lanre Parekh DO Primary Care Provide r Encounter Details Date Type Department Care Team (Late st Contact Info) Description 05/12/2019 5:30 PM PHP ENGINEER Lab [facility] Advanced Medicine [facility] Advanced Medicine ([facility]) [address] [place] [phone] Jonathan Pardo MD [address] [address] Low bone mass Discharge Disposition: Discharge to home or self care Social History Tobacco Use Types Packs/Day Years Used Date Smoking Tobacco: Never Smokeless Tobacco: Never Alcohol Use Standard Drinks/Week Comments No 0 (1 standard drink = 0.6 oz pur e alcohol) Sex and Gender Information Value Date Recorded Sex Assigned at Not on file Legal Sex Male 11:11 PM PHP ENGINEER Gender Identity Not on file Sexual Orientation Not on file documented as of this encounter Discharge Disposition Disposition Code Departure Means Destination Discharge to home or self care documented in this encounter Progress Notes * Eliaan Quevedo MD - 05/12/2019 5:30 PM CST CBC OK ENGINEER documented in this encounter Plan of Treatment Not on file documented as of this encounter Procedures Procedure Name Priority Date/Time Associated Diagnosis Comments VITAMIN D 25 HYDROXY Routine 05/12/2019 4:15 PM PHP ENGINEER Low bone mass COMPREHENSIVE METABOLIC PANEL Routine 05/12/2019 4:15 PM PHP ENGINEER Low bone mass DIFFERENTIAL AUTO Routine 05/12/2019 4:0 5 PM PHP ENGINEER CBC WITH AUTO DIFFERENTIAL Routine 05/12/2019 4:05 PM PHP ENGINEER documented in this encounter Results * Comprehensive metabolic panel (05/12/2019 4:15 PM PHP ENGINEER) Sodium 140 135 - 145 mmol/L [facility] Potassium, pl 4.1 3.3 - 4.9 mmol/L [facility] Chloride 104 97 - 110 mmol/L [facility] CO2 28 22 - 32 mmol/L [facility] Anion gap 8 2 - 15 mmol/L [facility] BUN 14 8 - 25 mg/dL [facility] Creatinine 0.92 0.80 - 1.30 mg/dL [facility] Glucose 99 70 - 199 mg/dL [facility] Comment: Interpretive Data Fasting glucose >/= 126 [...] 2017. Calcium 9.7 8.5 - 10.3 mg/dL [facility] Bilirubin, total 0.4 0.1 - 1.2 mg/dL [facility] Protein, pl 8.3 6.5 - 8.5 g/dL [facility] Albumin 4.8 3.5 - 5.0 g/dL [facility] Alk phos 79 40 - 130 Units/L [facility] ALT 35 7 - 55 Units/L [facility] AST 27 10 - 50 Units/L [facility] Blood specimen (specimen) 05/12/2019 4:15 PM PHP ENGINEER 05/12/2019 4:15 PM PHP ENGINEER us Jonathan Pardo MD LAB BLOOD ORDERABLES Final Result [facility] Department [place] [address] * Vitamin D 25 hydroxy (05/12/2019 4:15 PM PHP ENGINEER) Pathologist [facility] Vitamin D 25-OH 38 30 - 80 ng/mL [facility] Blood specimen (specimen) 05/12/2019 4:15 PM PHP ENGINEER 05/12/2019 4:15 PM PHP ENGINEER us Jonathan Pardo MD LAB BLOOD ORDERABLES Final Result Performing Organization Address City/[facility] Co de Phone Number [facility] Department [place] [address] * Differential, auto (05/12/2019 4:05 PM PHP ENGINEER) Pathologist [facility] Neutrophil abs 3.5 1.7 - 6.5 K/cumm [facility] Imm gran abs 0.0 0.0 - 0.1 K/cumm [facility] Lymphocyte abs 2.8 0.8 - 3.3 K/cumm [facility] Monocyte abs 0.5 0.2 - 0.8 K/cumm [facility] Eosinophil abs 0.1 0.0 - 0.5 K/cumm [facility] Basophil abs 0.0 0.0 - 0.1 K/cumm [facility] Neutrophil pct 50.6 % [facility] Comment: Interpretive Data Percent cell count reference ranges are not reported, since discordance with absolute values may lead to misinterpretation of CBC data. Current Interpretive Data was last revised on 2017. Imm gran pct 0.4 % [facility] Comment: Interpretive Data Percent cell count reference ranges are not reported, since discordance with absolute values may lead to misinterpretation of CBC data. Current Interpretive Data was last revised on 2017. Lymphocyte pct 39.9 % [facility] Comment: Interpretive Data Percent cell count reference ranges are not reported, since discordance with absolute values may lead to misinterpretation of CBC data. Current Interpretive Data was last revised on 2017. Monocyte pct 7.1 % [facility] Comment: Interpretive Data Percent cell count reference ranges are not reported, since discordance with absolute values may lead to misinterpretation of CBC data. Current Interpretive Data was last revised on 2017. Eosinophil pct 1.7 % [facility] Comment: Interpretive Data Percent cell count reference ranges are not reported, since discordance with absolute values may lead to misinterpretation of CBC data. Current Interpretive Data was last revised on 2017. Basophil pct 0.3 % [facility] Comment: Interpretive Data Percent cell count reference ranges are not reported, since discordance with absolute values may lead to misinterpretation of CBC data. Current Interpretive Data was last revised on 2017. Blood specimen (specimen) 05/12/2019 4:05 PM PHP ENGINEER 05/12/2019 4:26 PM PHP ENGINEER us Eliana Quevedo MD LAB BLOOD ORDERABLE S Final Result [facility] Department [place] [address] * (ABNORMAL) CBC with auto differential (05/12/2019 4:05 PM PHP ENGINEER) WBC 7.0 3.8 - 9.9 K/cumm [facility] Hgb 12.9(L) 13.0 - 17.5 g/dL [facility] Hct 38.6(L) 38.9 - 50.3 % [facility] Plt 264 150 - 400 K/cumm [facility] MPV 10.6 9.1 - 12.3 fL [facility] RBC 3.90(L) 4.30 - 5.80 M/cumm [facility] MCV 99.0(H) 81.3 - 96.4 fL [facility] MCH 33.1 27.1 - 33.3 pg [facility] MCHC 33.4 32.3 - 35.7 g/dL [facility] RDW CV 14.4 11.1 - 14.9 % [facility] RDW SD 52.3(H) 35.7 - 48.1 fL [facility] NRBC abs 0.00 0.00 - 0.01 K/cumm [facility] Blood specimen (specimen) 05/12/2019 4:05 PM PHP ENGINEER 05/12/2019 4:26 PM PHP ENGINEER us Eliana Quevedo MD LAB BLOOD ORDERABLE S Final Result [facility] Department [place] [address] documented in this encounter Visit Diagnoses Diagnosis Low bone mass documented in this encounter Care Teams Milk Route Supervisor Relationship Specialty Start Date End Date Lanre Parekh DO PCP - General Family Medicine 01/23/19 documented as of this encounter
--- OUTSIDE RECORDS SUMMARY | 2024-07-09 05:25 | XMS_ITS | Encounter Summary ---
Author Organization [facility] Address [address] [place] [address] Phone Care Team Providers Care Chief Clerk Name Role Phone Lanre Parekh DO Primary Care Provide r Encounter Details Date Type Department Care Team (Late st Contact Info) Description 06/06/2019 Telephone [facility] Neuro Sleep [address] [facility] 6th [address] [place] [address] Lexi Zuñiga CMA Social History Tobacco Use Types Packs/Day Years Used Date Smoking Tobacco: Never Smokeless Tobacco: Never Alcohol Use Standard Drinks/Week Comments No 0 (1 standard drink = 0.6 oz pur e alcohol) Sex and Gender Information Value Date Recorded Sex Assigned at Not on file Legal Sex Male 11:11 PM SCHOOL PATROL Gender Identity Not on file Sexual Orientation Not on file documented as of this encounter Miscellaneous Notes * Telephone Encounter - Lexi Zuñiga CMA - 06/06/2019 4:13 PM SCHOOL PATROL Called [facility] to ask about order I was told no one in the office could help me at that time. I left myinformation for someone to call me back. I called pt to give him an update. OL PATROL documented in this encounter Plan of Treatment Not on file documented as of this encounter Visit Diagnoses Not on filedocumented in this encounter Care Teams Chief Clerk Relationship Specialty Start Date End Date Lanre Parekh DO PCP - General Family Medicine 01/23/19 documented as of this encounter
--- OUTSIDE RECORDS SUMMARY | 2024-07-09 05:25 | XMS_ITS | Encounter Summary ---
Author Organization [facility] Address [address] [place] [address] Phone Care Team Providers Care Job Spotter Name Role Phone Lanre Parekh DO Primary Care Provide r Encounter Details Date Type Department Care Team (Late st Contact Info) Description 05/06/2019 Orders Only [facility] Gastroenterology Formerly [facility] 8th [place] [address] [place] [id number] Padma Mendoza, JOSH Crohn's disease of small and large intestines with complication (CMS/HCC) (Primary Dx) Social History Tobacco Use Types Packs/Day Years Used Date Smoking Tobacco: Never Smokeless Tobacco: Never Alcohol Use Standard Drinks/Week Comments No 0 (1 standard drink = 0.6 oz pur e alcohol) Sex and Gender Information Value Date Recorded Sex Assigned at Not on file Legal 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 Male 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 Gender Identity Not on file Sexual Orientation Not on file documented as of this encounter Ordered Prescriptions Prescription Sig Dispense Quantity Refills Last Filled Start Date End Date folic acid (FOLVITE) 1 mg tabletIndications: Crohn's disease of small and large intestines with complication (HCC) Take 1 tablet (1 mg total) by mouth daily 90 tablet 3 05/06/2019 05/12/2019 documented in this encounter Plan of Treatment Not on file documented as of this encounter Visit Diagnoses Diagnosis Crohn's disease of small and large intestines with complication (HCC)- Primary documented in this encounter Care Teams Job Spotter Relationship Specialty Start Date End Date Lanre Parekh DO PCP - General Family Medicine 01/23/19 documented as of this encounter
--- OUTSIDE RECORDS SUMMARY | 2024-07-09 05:25 | XMS_ITS | Encounter Summary ---
Author Organization [facility] Address [address] [place] [address] Phone Care Team Providers Care Cashier And Waiter/Waitress Name Role Phone Lanre Parekh DO Primary Care Provide r Encounter Details Date Type Department Care Team (Late st Contact Info) Description 06/20/2019 Orders Only [facility] Gastroenterology [address] [facility] 8th [place] [address] [place] [address] Padma Mendoza, JOSH Social History Tobacco Use Types Packs/Day Years Used Date Smoking Tobacco: Never Smokeless Tobacco: Never Alcohol Use Standard Drinks/Week Comments No 0 (1 standard drink = 0.6 oz pur e alcohol) Sex and Gender Information Value Date Recorded Sex Assigned at Not on file Legal Sex Male 11:11 PM MANAGER TECHNICAL Gender Identity Not on file Sexual Orientation Not on file documented as of this encounter Plan of Treatment Not on file documented as of this encounter Visit Diagnoses Not on filedocumented in this encounter Care Teams Cashier And Waiter/Waitress Relationship Specialty Start Date End Date Lanre Parekh DO PCP - General Family Medicine 01/23/19 documented as of this encounter
--- OUTSIDE RECORDS SUMMARY | 2024-07-09 05:25 | XMS_ITS | Encounter Summary ---
Author Organization [facility] Address [address] [place] [address] Care Team Providers Care Bakery Associate Name Role Phone Lanre Parekh Primary Care Provide r Encounter Details Date Type Department Care Team (Late st Contact Info) Description 08/29/2019 1:30 PM CASE MANAGEMENT ASSISTANT - 08/29/2019 2:00 PM CASE MANAGEMENT ASSISTANT Surgery [facility] Endoscopy [address] [place] [address] Eliana Quevedo MD [address] [facility] [address] [place], [place] [id number] COLONOSCOPY Surgery Details Date/Time Status Location OR Service Patient Class Case Class Case Type Trauma Case? 08/29/2019 1:30 PM Posted [facility] ENDOSCOPY Endo 01 Gastroenterology Outpatient Elective Panel 1 Procedure LRB Anes Op Region Wound Class Comments COLONOSCOPY N/A Monitor Anesthesia Care Colon N/A Surgeon Surgeon Role Service Panel Eliana Quevedo MD Primary Gastroente rology 1 Jackeline Lozano MD Fellow Gastroenterol ogy 1 documented in this encounter Social History Tobacco Use Types Packs/Day Years Used Date Smoking Tobacco: Never Smokeless Tobacco: Never Alcohol Use Standard Drinks/Week Comments Yes 0 (1 standard drink = 0.6 oz pur e alcohol) wine-rarely Sex and Gender Information Value Date Recorded Sex Assigned at Not on file Legal Sex Male 11:11 PM CASE MANAGEMENT ASSISTANT Gender Identity Not on file Sexual Orientation Not on file documented as of this encounter Last Filed Vital Signs Vital Sign Reading Time Taken Comments Blood Pressure 93/60 08/29/2019 1:35 PM CASE MANAGEMENT ASSISTANT Pulse 84 08/29/2019 2:00 PM CASE MANAGEMENT ASSISTANT Temperature 36.1 ??C (97 ??F) 08/29/2019 2:00 PM CASE MANAGEMENT ASSISTANT Respiratory Rate 23 08/29/2019 2:00 PM CASE MANAGEMENT ASSISTANT Oxygen Saturation 97% 08/29/2019 2:00 PM CASE MANAGEMENT ASSISTANT Inhaled Oxygen Concentration - - Weight 77.1 kg (170 lb) 08/29/2019 1:12 PM CASE MANAGEMENT ASSISTANT Height 172.7 cm (5' 8 ) 08/29/2019 1:12 PM CASE MANAGEMENT ASSISTANT Body Mass Index 25.85 08/29/2019 1:12 PM CASE MANAGEMENT ASSISTANT documented in this encounter Medications at Time of Discharge L.acid/L.casei/B.b if/B.raf/FOS (PROBIOTIC BLEND ORAL)Indications:g id health Take 1 tablet by mouth every [...] Surgical History: Procedure Laterality Date ??? COLONOSCOPY 2016 multiple ??? OTHER SURGICAL HISTORY 12/2017 ileocecal [...] Date End Date Taking? Authorizing Provider adalimumab (HUMIRA, CF, PEN) 40 mg/0.4 [...] planned procedure for the reasons stated above. MANAGEMENT ASSISTANT documented in this encounter Procedure Notes * Eliana Quevedo MD - 08/29/2019 1:38 PM CSTAssociated Order(s): COLONOSCOPY ENDOSCOPY LAB Patient Name: Nic Teran Procedure Date: 08/29/2019 1:38 PM Date of : 1990 Admit Type: Outpatient Age: 28 Gender: Male Attending MD: Eliana Quevedo M.D. Room: [facility] ENDOSCOPY ROOM 01 Note Status: Finalized [...] scope was passed under direct vision. The [id number] was introduced through the anus and advanced to 10 cm into the ileum. The colonoscopy was performed without difficulty. The patient tolerated the procedure well. The quality of the bowel preparation was evaluated using the BBPS ([place] Bowel Preparation Scale) with scores of: Right [...] 0 Note Initiated On: 08/29/2019 1:38 PM MANAGEMENT ASSISTANT documented in this encounter Miscellaneous Notes * Result Encounter Note - Eliana Quevedo MD - 08/29/2019 2:46 PM CST Perfect metabolites * Perioperative Nursing Note - Francesca Hearn RN - 08/29/2019 2:27 PM CASE MANAGEMENT ASSISTANT Bloods drawn as ordered. MANAGEMENT ASSISTANT * Perioperative Nursing Note - Waleska Marie RN - 08/29/2019 1:30 PM CASE MANAGEMENT ASSISTANT Pt reports not 'feeling well' during IV start. SBP noted to be 70/35. HR 52, pt pale and diaphoretic. HOB flat, IVF bolused for 500 cc. Pt reports symptoms improving.SBP>90's , HR>65 after 5 minutes. MANAGEMENT ASSISTANT * Perioperative Nursing Note - Dina Erickson RN - 08/28/2019 4:46 PM CASE MANAGEMENT ASSISTANT Please follow any instruction you were given re:Bowel prep. Come to [facility] new ER entrance, you are encouraged to use free patent chemist parking. As you enter please inquire at [...] medical transport by yourself will be allowed. MANAGEMENT ASSISTANT documented in this encounter Plan of Treatment Not on file documented as of this encounter Procedures Procedure Name Priority Date/Time Associated Diagnosis Comments T-SPOT.TB Routine 08/29/2019 2:15 PM CASE MANAGEMENT ASSISTANT DIFFERENTIAL AUTO Routine 08/29/2019 2:1 5 PM CASE MANAGEMENT ASSISTANT THIOPURINE METABOLITES Routine 08/29/2019 2:15 PM CASE MANAGEMENT ASSISTANT CBC WITH AUTO DIFFERENTIAL Routine 08/29/2019 2:15 PM CASE MANAGEMENT ASSISTANT HEPATIC FUNCTION PANEL Routine 08/29/2019 2:15 PM CASE MANAGEMENT ASSISTANT COLONOSCOPY 08/29/2019 1:42 PM CASE MANAGEMENT ASSISTANT Crohn's disease of both small and large intestine with other complication (CMS/HCC) COLONOSCOPY 08/29/2019 1:38 PM CASE MANAGEMENT ASSISTANT documented in this encounter Results * Differential, auto (08/29/2019 2:15 PM CASE MANAGEMENT ASSISTANT) Neutrophil abs 3.8 1.7 - 6.5 K/cumm [...] on 2017. Imm gran pct 0.2 % [facility] Comment: Interpretive Data Percent cell count reference ranges are not reported, since discordance with absolute values may lead to misinterpretation of CBC data. Current Interpretive Data was last revised on 2017. Lymphocyte pct 34.4 % [facility] Comment: Interpretive Data Percent cell count reference ranges are not reported, since discordance with absolute values may lead to misinterpretation of CBC data. Current Interpretive Data was last revised on 2017. Monocyte pct 4.9 % [facility] Comment: Interpretive Data Percent cell count reference ranges are not reported, since discordance with absolute values may lead to misinterpretation of CBC data. Current Interpretive Data was last revised on 2017. Eosinophil pct 0.9 % [facility] Comment: Interpretive Data Percent cell count reference ranges are not reported, since discordance with absolute values may lead to misinterpretation of CBC data. Current Interpretive Data was last revised on 2017. Basophil pct 0.5 % [facility] Comment: Interpretive Data Percent cell count reference ranges are not reported, since discordance with absolute values may lead to misinterpretation of CBC data. Current Interpretive Data was last revised on 2017. Blood specimen (specimen) 08/29/2019 2:15 PM CASE MANAGEMENT ASSISTANT 08/29/2019 2:23 PM CASE MANAGEMENT ASSISTANT Eliana Quevedo MD LAB BLOOD ORDERABLE S Final Result Performing Organization Address City/[facility]/ZIP Co de Phone Number [facility] [address] [facility] [address] [place] [address] * Thiopurine metabolites (08/29/2019 2:15 PM CASE MANAGEMENT ASSISTANT) Thiopurine metabolites See scanned report [facility] Blood specimen (specimen) 08/29/2019 2:15 PM CASE MANAGEMENT ASSISTANT 09/08/2019 9:53 AM CDT Eliana Quevedo MD LAB BLOOD ORDERABLE S Final Result Performing Organization Address City/[facility]/ZIP Co de Phone Number [facility] [address] [facility] [place] [address] * T-SPOT.TB (08/29/2019 2:15 PM CASE MANAGEMENT ASSISTANT) [facility] T-SPOT.TB Negative Negative [facility] Comment: Limitations [...] with T-SPOT.TB test. T-Spot testing performed by [employer], [address] [place] [address]. [id number] A negative test result does not exclude [...] [facility] Blood specimen (specimen) 08/29/2019 2:15 PM CASE MANAGEMENT ASSISTANT 08/29/2019 2:23 PM CASE MANAGEMENT ASSISTANT Eliana Quevedo MD LAB MICROBIOLOGY - GENERAL ORDERABLES Final Result Performing Organization Address [facility]/ZIP Co de Phone Number [facility] [address] [place] [address] * Hepatic function panel (08/29/2019 2:15 PM CASE MANAGEMENT ASSISTANT) Bilirubin, total 0.8 0.1 - 1.2 mg/dL [...] [facility] Blood specimen (specimen) 08/29/2019 2:15 PM CASE MANAGEMENT ASSISTANT 08/29/2019 2:23 PM CASE MANAGEMENT ASSISTANT Eliana Quevedo MD LAB BLOOD ORDERABLE S Final Result Performing Organization Address [facility]/ZIP Co de Phone Number [facility] [address] [place] [address] * (ABNORMAL) CBC with auto differential (08/29/2019 2:15 PM CASE MANAGEMENT ASSISTANT) WBC 6.5 3.8 - 9.9 K/cumm [facility] Hgb 13.9 13.0 - 17.5 g/dL [facility] Hct 41.2 38.9 - 50.3 % [facility] Plt 189 150 - 400 K/cumm [facility] MPV 9.8 9.1 - 12.3 fL [facility] RBC 4.04(L) 4.30 - 5.80 M/cumm [facility] MCV 102.0(H) 81.3 - 96.4 fL [facility] MCH 34.4(H) 27.1 - 33.3 pg [facility] MCHC 33.7 32.3 - 35.7 g/dL [facility] RDW CV 13.3 11.1 - 14.9 % [facility] RDW SD 50.1(H) 35.7 - 48.1 fL [facility] NRBC abs 0.00 0.00 - 0.01 K/cumm [facility] Blood specimen (specimen) 08/29/2019 2:15 PM CASE MANAGEMENT ASSISTANT 08/29/2019 2:23 PM CASE MANAGEMENT ASSISTANT us Eliana Quevedo MD LAB BLOOD ORDERABLE S Final Result [facility] [address] [facility] [place] [address] * COLONOSCOPY (08/29/2019 1:38 PM CASE MANAGEMENT ASSISTANT) Anatomical Region Laterality Modality Other Narrative Procedure Note Eliana Quevedo MD - 08/29/2019 1:38 PM CST ENDOSCOPY LAB Patient Name: Nic Teran Procedure Date: 08/29/2019 1:38 PM Date of : 1990 Admit Type: Outpatient Age: 28 Gender: Male Attending MD: Eliana Quevedo M.D. Room: [facility] ENDOSCOPY ROOM 01 Note Status: Finalized [...] Thescope was passed under direct vision. The [id number] introduced through the anus and advanced to 10 cm intothe ileum. The colonoscopy was performed withoutdifficulty. The patient tolerated the procedure well. The qualityof the bowel preparation was evaluated using the BBPS([place] Bowel Preparation Scale) with scores of: Right [...] 0 Note Initiated On: 08/29/2019 1:38 PM us Eliana Quevedo MD ENDOSCOPY PROCEDURE S Final Result documented in this encounter Visit Diagnoses Diagnosis Crohn's disease of both small and large intestine with other complication (HCC) documented in this encounter Administered Medications Inactive Administered Medications - up to 3 most recent administrations Medication Order MAR Action Action Date Dose Rate Site methylene blue (antidote) 5 mg/mL (0.5 %) injection As needed, Starting on Sun08/29/19 at 1349, Intra-Op Given 08/29/2019 1:49 PM CASE MANAGEMENT ASSISTANT 50 mg GI Tract sodium chloride 0.9% flush 0.5-20 mL 0.5-20 mL, intra-catheter, As needed, line care, Starting on Sun08/29/19 at 1308, Pre-Procedure (GI), Flush volume based on line type and size. Flush before and after each use. , Indications: FlushingIndications:Flus daniel sodium chloride 0.9% infusion 30 mL/hr, intravenous, Continuous, Starting on Sun08/29/19 at 1345, Pre-Procedure (GI) Rate/Dose Verify 08/29/2019 1:37 PM CASE MANAGEMENT ASSISTANT 30 mL/hr New Bag 08/29/2019 1:20 PM CASE MANAGEMENT ASSISTANT 30 mL/hr 30 mL/hr Ri ght Forearm [...] Recently Administered Medications Times are shown in CASE MANAGEMENT ASSISTANT. Continuous Medication Order 08/27/2019 08/28/2019 08/29/2019 sodium chloride 0.9% infusion 30 mL/hr, intravenous, Continuous, Starting on Sun08/29/19 at 1345, Pre-Procedure (GI) 1320 (New Bag - Prov ider: Waleska Marie RN)1337 (Rate/Dose Verify - Provider: Elda De La Paz CRNA)1427 (Stopped - Provider: Francesca Hearn, JOSH) PRN Medication Order 08/27/2019 08/28/2019 08/29/2019 [...] 08/03 documented in this encounter Care Teams Bakery Associate Relationship Specialty Start Date End Date Lanre Parekh DO PCP - General Family Medicine 01/23/19 documented as of this encounter
--- OUTSIDE RECORDS SUMMARY | 2024-07-09 05:25 | XMS_ITS | Encounter Summary ---
Author Organization [facility] Address [address] [place] [address] Phone Care Team Providers Care Legend Maker Name Role Phone EduinLanre milan DO Primary Care Provide r Reason for Visit * Reason Comments Consult * Consultation (Routine) - Closed Specialty Diagnoses / Procedures Referred By Renay rivero Referred To Contact Sleep Medicine Diagnoses Sleep apnea, unspecified type Eliana Quevedo MD Phone: tel: fax: Bhupendra Velasquez MD [address] [place] [address] Phone: tel: fax: Referral ID Status Reason Start Date Expiration Date V isits Requested Visits Authorized [id number] Closed Specialty Services Required 01/23/2019 08/03/2020 1 1 Encounter Details Date Type Department Care Team (Late st Contact Info) Description 04/03/2019 11:00 AM CDT Office Visit [facility] Neuro Sleep [address] 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 Gender Identity Not on file Sexual Orientation Not on file documented as of this encounter Last Filed Vital Signs Vital Sign Reading Time Taken Comments Blood Pressure 117/74 04/03/2019 10:39 AM CDT Pulse 85 04/03/2019 10:39 AM CDT Temperature - - Respiratory Rate - - Oxygen Saturation 98% 04/03/2019 10:39 AM CDT Inhaled Oxygen Concentration - - Weight 79.8 kg (176 lb) 04/03/2019 10:39 AM CDT Height 170.2 cm (5' 7 ) 04/03/2019 10:39 AM CDT Body Mass Index 27.57 04/03/2019 10:39 AM CDT documented in this encounter Progress Notes * Davion Samuel NP - 04/03/2019 11:00 AM CDT Patient Name: NIC TERAN Medical Record Number (MRN): [id number] Date of (): 1990 Encounter Date: 04/03/2019 Chief Complaint Nic Teran is a 28 y.o. male seen today to establish care for JALYN. HPI 28 y.o. patient with chrons Presents to establish care for JALYN that was diagnosed on 12/19/18 through his PCP's office. HST through SNAP diagnosis 12/19/18 ( Wt 170 lbs), AHI 5.2, RDI 11.7, AMIRA 0, O2N 89%. Presents here to initiate mild JALYN treatment. He snores loudly. He has been witnessed to stop breathing. He does not wake up gasping for air. He does not have morning headaches. Sleep is restless. He does not have vivid dreams. He endorses somniloquy but not somnambulism. He does not act out dreams. He has not had symptoms of cataplexy, sleep-related hallucinations, or sleep paralysis. He does not have an uncomfortable sensation in the legs which is relieved by movement/stretching. He is not aware of leg jerks during sleep. On all nights, bedtime is 9:30-10:30 pm, rise time is 5:30 am, and he takes 10 minutes to fall asleep. He wakes up 3-4 times during the night for no apparent reason. It takes 30 minutes to 2 hours for him to fall back asleep. When he can't fall asleep, he will read bible. he does not take naps daily. He feels unrefreshed when he wakes in the morning. He is liable to doze unintentionally while in sedentary situations. Sleepiness has not affected work. He has not dozed off while driving. [place] sleepiness scale today is 18/24, which indicates abnormally high sleepiness. Allergies Allergen Reactions ??? Flagyl [Metronidazole] Other (See comments) Neuropathy Current Outpatient Medications Medication Sig Dispense Refill ??? adalimumab (HUMIRA PEN) 40 mg/0.4 mL pen injector kit Inject 0.4 mL (40 mg total) under the skin every 14 (fourteen) days SAFETY LABS REQUIRED EVERY 3 MONTHS FOR REFILLS DUE 04/2019 2 each 5 ??? allopurinol (ZYLOPRIM) 100 mg tablet Take 1 tablet (100 mg total) by mouth daily 90 tablet 0 ??? balsalazide (COLAZAL) 750 mg capsule Take 3 capsules three times daily. 270 capsule 1 ??? colestipol (COLESTID) 1 gram tablet Take 1 tablet (1 g total) by mouth 4 (four) times a day as needed (fat driven diarrhea). 120 tablet 3 ??? mercaptopurine (PURINETHOL) 50 mg tablet Take 1 tabs PO daily ( Labs due Week of 05/07/19 w/metabolites) 90 tablet 0 ??? calcium carbonate (OS-ANA) 1,500 mg (600 mg of elemental calcium) tablet every morning. ??? cefdinir (OMNICEF) 300 mg capsule 0 ??? L.acid/L.casei/B.bif/B.raf/FOS (PROBIOTIC BLEND ORAL) Take 1 tablet by mouth daily ??? 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 Vital Signs Vitals: 04/03/19 1039 BP: 117/74 BP Location: Left arm Patient Position: Sitting Pulse: 85 SpO2: 98% Weight: 79.8 kg (176 lb) Height: 170.2 cm (5' 7 ) Physical [...] 28 y.o. male with mild JALYN who presents to establish care for mild JALYN diagnosed in November 2018 through his PCP's office. Pt wants to be started on PAP. APAP 5-14 cm order placed. Pt will return in 6 mths for f/u. We discussed JALYN and its treatments including positive airway pressure, oral prosthesis, surgery, Provent adhesive nasal valves and weight loss. We discussed how untreated JALYN can cause unrefreshing sleep and excessive daytime sleepiness, as well as how it contributes over the halfway to cardiovascular risk, recalcitrant hypertension and difficulty with weight loss . Plan 1-Mild JALYN -Order placed for new APAP 5-14 cm -RTC in 6 mths or sooner if needed. Obesity- ?? Weight loss through diet and exercise Advised patient to never drive while drowsy. He verbalizes understanding. Return in about 6 months (around 10/03/2019). Future Appointments Date Time Provider Department Center 05/12/2019 2:20 PM [facility] 05/12/2019 2:40 PM Fernando Mckeon MD [facility] 07/31/2019 10:00 AM Eliana Quevedo MD GI [facility] Thank you for allowing me to participate in the care of your patient. If you have any questions, feel free to contact me. Davion Samuel NP 04/03/2019 11:06 AM documented in this encounter Plan of Treatment Scheduled Referrals Name Type Priority Associated Diagnoses Orde r Schedule Ambulatory referral to Sleep Medicine Outpatient Referral Routine Sleep apnea, unspecified type Ordered: 01/23/2019 documented as of this encounter Visit Diagnoses Diagnosis Obstructive sleep apnea- Primary Obstructive sleep apnea (adult) (pediatric) documented in this encounter Discontinued Medications Medication Sig Discontinue Reason Start Date End Da te amoxicillin (AMOXIL) 875 mg tablet TK 1 T PO Q 12 H FOR 10 DAYS Other 11/14/2018 04/03/2019 amoxicillin-clavulanate (AUGMENTIN) 875-125 mg per tablet TK 1 T PO Q 12 H FOR 10 DAYS Other 12/22/2018 04/03/2019 CANNABIDIOL, CBD, EXTRACT ORAL Take by mouth. Other 04/03/2019 cholecalciferol (VITAMIN D-3) 1,000 unit Take 1,000 Units by mouth every morning. Other 04/03/2019 ergocalciferol (VITAMIN D) 50,000 unit capsuleIndications:Osteop orosis, unspecified osteoporosis type, unspecified pathological fracture presence Take 1 capsule (50,000 Units total) by mouth every 14 (fourteen) days. Other 05/20/2018 04/03/2019 folic acid (FOLVITE) 1 mg tablet Take 1 tablet PO daily Other 04/16/2018 04/03/2019 predniSONE (DELTASONE) 20 mg tablet Other 11/18/2018 04/03/2019 omega 2-wli-iao-fish oil 300-1,000 mg capsule 1 capsule every morning. Other 11/16/2017 04/03/2019 documented as of this encounter Care Teams Legend Maker Relationship Specialty Start Date End Date Lanre Parekh DO PCP - General Family Medicine 01/23/19 documented as of this encounter
--- OUTSIDE RECORDS SUMMARY | 2024-07-09 05:25 | XMS_ITS | Encounter Summary ---
Author Organization [facility] Address [address] [place] [address] Phone Care Team Providers Care Area Development Manager Name Role Phone Lanre Parekh DO Primary Care Provide r Encounter Details Date Type Department Care Team (Late st Contact Info) Description 02/10/2019 Orders Only [facility] Gastroenterology [address] 8th [place] [address] [place] [address] Padma Mendoza, JOSH Social History Tobacco Use Types Packs/Day Years Used Date Smoking Tobacco: Never Smokeless Tobacco: Never Alcohol Use Standard Drinks/Week Comments No 0 (1 standard drink = 0.6 oz pur e alcohol) Sex and Gender Information Value Date Recorded Sex Assigned at Not on file 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
--- OUTSIDE RECORDS SUMMARY | 2024-07-09 05:25 | XMS_ITS | Encounter Summary ---
Author Organization [facility] Address [address] [place] [address] Care Team Providers Care Mixed Crop Farmer Name Role Phone Lanre Parekh DO Primary Care Provide r Encounter Details Date Type Department Care Team (Late st Contact Info) Description 06/26/2019 12:25 PM DIALYSIS NURSE Lab [facility] Advanced Medicine [facility] Advanced Medicine ([facility]) [address] [place] [phone] Eliana Quevedo MD [address] [place] [address] Crohn's disease of small and large intestines [...] on file Legal Sex Male 11:11 PM DIALYSIS NURSE Gender Identity Not on file Sexual Orientation Not on file documented as of this encounter Discharge Disposition Disposition Code Departure Means Destination Discharge to home or self care documented in this encounter Progress Notes * Eliana Quevedo MD - 06/26/2019 12:25 PM CST Increase to 2 tabs 1 day a week, continue 1 tab the other days YSIS NURSE documented in this encounter Plan of Treatment Not on file documented as of this encounter Procedures Procedure Name Priority Date/Time Associated Diagnosis Comments THIOPURINE METABOLITES Routine 06/26/2019 12:11 PM DIALYSIS NURSE Crohn's disease of small and large intestines with complication (CMS/HCC) High risk medications (not anticoagulants) long-term use documented in this encounter Results * Thiopurine metabolites (06/26/2019 12:11 PM DIALYSIS NURSE) 6-TG, bld 236 230 - 400 pmol/RBCs [facility] Comment: Interpretive Data Units of Measure are pmol/8x10E8 RBCs Testing performed by: [facility], [place], [place] ??[address]. Current interpretive data was last revised on 07. 6-MMP, bld <886 0 - 5,699 pmol/RBCs [facility] Comment: Interpretive Data Units of Measure are pmol/8x10E8 RBCs Testing performed by: [facility], [place], [place] ??[address]. Current interpretive data was last revised on 07. Blood specimen (specimen) 06/26/2019 12:11 PM DIALYSIS NURSE 06/26/2019 12:26 PM DIALYSIS NURSE us Eliana Quevedo MD LAB BLOOD ORDERABLE S Final Result [facility] Department [place] [address] documented in this encounter Visit Diagnoses Diagnosis Crohn's disease of small and large intestines with complication (HCC) High risk medications (not anticoagulants) long-term use Encounter for long-term (current) use of other medications documented in this encounter Care Teams Mixed Crop Farmer Relationship Specialty Start Date End Date Lanre Parekh DO PCP - General Family Medicine 01/23/19 documented as of this encounter
--- OUTSIDE RECORDS SUMMARY | 2024-07-09 05:25 | XMS_ITS | Encounter Summary ---
Author Organization [facility] Address [address] [place] [address] Phone Care Team Providers Care Puzzle Assembler Name Role Phone Lanre Parekh Primary Care Provide r Encounter Details Date Type Department Care Team (Late st Contact Info) Description 05/20/2019 Orders Only [facility] Gastroenterology [facility] Medicine 8th [place] [address] [place] [phone] Padma Mendoza, JOSH Crohn's disease of small and large intestines with complication (CMS/HCC) (Primary Dx); Abdominal pain, unspecified abdominal location Social History Tobacco Use Types Packs/Day Years Used Date Smoking Tobacco: Never Smokeless Tobacco: Never Alcohol Use Standard Drinks/Week Comments No 0 (1 standard drink = 0.6 oz pur e alcohol) Sex and Gender Information Value Date Recorded Sex Assigned at Not on file Legal Sex Male 11:11 PM ETCHER 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 Gender Identity Not on file Sexual Orientation Not on file documented as of this encounter Ordered Prescriptions Prescription Sig Dispense Quantity Refills Last Filled Start Date End Date hyoscyamine (LEVSIN) 0.125 mg SL tabletIndications: Urinary Incontinence Take 1 tablet (0.125 mg total) by mouth every 6 (six) hours as needed for cramping or diarrhea Dissolve tab under the tongue 100 tablet 5 05/20/2019 0 documented in this encounter Plan of Treatment Not on file documented as of this encounter Visit Diagnoses Diagnosis Crohn's disease of small and large intestines with complication (HCC)- Primary Abdominal pain, unspecified abdominal location documented in this encounter Care Teams Puzzle Assembler Relationship Specialty Start Date End Date Lanre Parekh DO PCP - General Family Medicine 01/23/19 documented as of this encounter
--- OUTSIDE RECORDS SUMMARY | 2024-07-09 05:25 | XMS_ITS | Encounter Summary ---
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 Gender Identity Not on file Sexual Orientation Not on file documented as of this encounter Ordered Prescriptions Prescription Sig Dispense Quantity Refills Last Filled Start Date End Date allopurinol (ZYLOPRIM) 100 mg tabletIndications: Crohn's disease of both small and large intestine with intestinal obstruction (HCC) Take 1 tablet (100 mg total) by mouth daily 90 tablet 05/13/2019 9 mercaptopurine (PURINETHOL) 50 mg tabletIndications: Crohn's Disease Take 1 tabs PO daily SAFETY LABS REQUIRED EVERY 3 MONTHS FOR REFILLS DUE 08/2019 90 tablet 05/13/2019 9 adalimumab (HUMIRA, CF, PEN) 40 mg/0.4 mL pen injector kitIndications:Typing Secretary hn's Disease,PA approved through [employer] #[id number] starting 03/23/19 through 04/21/20 Inject 0.4 mL (40 mg total) under the skin every 14 (fourteen) days SAFETY LABS REQUIRED EVERY 3 MONTHS FOR REFILLS DUE 08/2019 2 each 5 05/13/2019 0 documented in this encounter Plan of Treatment Not on file documented as of this encounter Visit Diagnoses Diagnosis Crohn's disease of both small and large intestine with intestinal obstruction (HCC) documented in this encounter Discontinued Medications Medication Sig Discontinue Reason Start Date End Da te adalimumab (HUMIRA PEN) 40 mg/0.4 mL pen injector kitIndications:Crohn's Disease,PA approved through [employer] #[id number] starting 03/23/19 through 04/21/20 Inject 0.4 mL (40 mg total) under the skin every 14 (fourteen) days SAFETY LABS REQUIRED EVERY 3 MONTHS FOR REFILLS DUE 04/2019 Reorder 04/24/2019 05/13/2019 mercaptopurine (PURINETHOL) 50 mg tabletIndications:Crohn' s Disease Take 1 tabs PO daily ( Labs due Week of 05/07/19 w/metabolites) Reorder 03/26/2019 05/13/2019 allopurinol (ZYLOPRIM) 100 mg tabletIndications:Crohn' s disease of both small and large intestine with intestinal obstruction (HCC) Take 1 tablet (100 mg total) by mouth daily Reorder 03/26/2019 05/13/2019 documented as of this encounter Care Teams Sheriff Sergeant Relationship Specialty Start Date End Date Lanre Parekh DO PCP - General Family Medicine 01/23/19 documented as of this encounter
--- OUTSIDE RECORDS SUMMARY | 2024-07-09 05:26 | XMS_ITS | Encounter Summary ---
Author Organization [facility] Healthcare Address [address] [place] [address] Care Team Providers Care Rotary Drum Dyer Name Role Phone Trenton Bess MD Primary Care Provider [phone] Encounter Details Date Type Department Care Team (Late st Contact Info) Description 08/02/2018 8:04 AM COMPANY TRUCK DRIVER Anesthesia Event [facility] Endoscopy [address] [place] [address] Chad Hoyos MD [address] [place] [address] Anesthesia Record Procedure Summary Procedure Name Responsible Anesthesiologist Anesthesia Start Time Anesthesia Stop Time COLON DILATION 10R>STRICT (Colon) Chad Hoyos MD 08/02/18 0804 08/02/18 0838 Events Date Time Event Comment 08/02/2018 0733 0801 AN Equip Check 0804 An Start 0804 An Start Data 0804 In Room 0807 Patient Positioned Laterally 0807 An Induction The patient was reevaluated immediately before moderate or deep sedation use and before anesthesia induction. 0808 Anesthesia Ready 0809 Proc Start 0833 Proc Fin 0834 an stop data 0835 Out of Room 0838 An Stop 0838 Handoff to RN I completed my handoff [...] disposition at the time of handoff: PACU Meds Name Total lidocaine 1 % PF 100 mg propofol 400 mg sodium chloride 0.9% infusion 700 mL * Agents Name O2 * Blood No blood administrations on file. Lines, Drains, and Airways Type Details Placement Removal RETIRED Surgical Site 01/11/18; 938; Mid-line, Lower; Abdomen; 01/23/22; Not present on admission 01/11/18 0939 by Malou Coulter RN 01/23/22 0000 by Yeimy Vincent RN Peripheral IV Placement Date: 08/02/18; Placement Time: 714; Catheter Size: 22 G; Orientation: Right; Location: Forearm; Site Prep: Chlorhexidine; Insertion Attempts: 1; Patient Tolerance: Tolerated well; Removal Date: 08/02/18; Removal Time: 90408/02/18714 by Sudha Giraldo RN 08/02/18904 by Kelli Betancourt RN documented in this encounter Social History Tobacco Use Types Packs/Day Years Used Date Smoking Tobacco: Never Smokeless Tobacco: Never Alcohol Use Standard Drinks/Week Comments No 0 (1 standard drink = 0.6 oz pur e alcohol) Sex and Gender Information Value Date Recorded Sex Assigned at Not on file Legal 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 Male 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 TRUCK DRIVER Gender Identity Not on file Sexual Orientation Not on file documented as of this encounter OR Notes * Anesthesia Postprocedure Evaluation - Chad Hoyos MD - 08/02/2018 9:18 AM CST Patient: Nic Teran Procedure Summary Date: 08/02/18 Room / Location: [facility] ENDOSCOPY Anesthesia Start: 803 Anesthesia Stop: 837 Procedure: COLON DILATION 10R>STRICT (N/A Colon) Diagnosis: Crohn's disease of both small and large intestine with other complication (CMS/HCC) (Crohn's Disease of small and large intestine with complication) Provider: Eliana Quevedo MD Responsible Provider: Chad Hoyos MD Anesthesia Type: general ASA Status: 2 Anesthesia Type: general Last vitals BP 102/73 Pulse 69 Temp 36.9 ??C (98.4 ??F) (Temporal) Resp 16 SpO2 99% Anesthesia Post Evaluation Patient location during evaluation: PACU Patient participation: complete - patient participated Level of consciousness: fully awake Pain score: 0 Pain management: adequate Airway patency: adequate Evidence of recall: no Anesthetic complications: no Cardiovascular status: hemodynamically stable and acceptable Respiratory status: acceptable and room air Hydration status: acceptable Pt is: normothermic Nausea/Vomiting status: none ANY TRUCK DRIVER * Anesthesia Preprocedure Evaluation - Chad Hoyos MD - 08/02/2018 7:33 AM CST Anesthesia Evaluation Nic Teran is a 27 y.o. male Procedure(s): Colonoscopy Patient Active Problem List Diagnosis ??? Crohn's [...] ??? Flagyl [Metronidazole] Other (See comments) Neuropathy HOME MEDICATIONS : CANNABIDIOL, CBD, EXTRACT ORAL omega 9-[id number]-fish oil 300-1,000 mg capsule adalimumab 40 mg/0.4 mL pen injector kit balsalazide (COLAZAL) 750 mg capsule calcium carbonate (OS-ANA) 1,500 mg (600 mg of elemental calcium) tablet cholecalciferol (VITAMIN D-3) 1,000 unit colestipol (COLESTID) 1 gram tablet ergocalciferol (VITAMIN D) 50,000 unit capsule folic acid (FOLVITE) 1 mg tablet hyoscyamine (LEVSIN) 0.125 mg tablet methotrexate 2.5 mg tablet multivitamin capsule Current Facility-Administered Medications: ??? sodium chloride 0.9% flush 0.5-20 mL, 0.5-20 mL, intra-catheter, PRN ??? sodium chloride 0.9% infusion, 30 mL/hr, intravenous, Continuous, Last Rate: 30 mL/hr at 08/02/18715, 30 mL/hr at 08/02/18715 Social History Smoking Status ??? Never Smoker Smokeless Tobacco ??? Never Used Alcohol Use No Drug Use ??? Types: Marijuana Family History Problem Relation Age of Onset ??? Hypertension Mother Family history of hypertension - (Added by TW Conv) ??? Kidney failure Mother Family history of renal failure - (Added by TW Conv) ??? Hypertension Father Family history of hypertension - (Added by TW Conv) ??? Ulcerative colitis Mother's Sister PAT Physical Exam Vitals: 08/02/18 0659 BP: 138/81 Pulse: 87 Resp: 20 Temp: 36.1 ??C (97 ??F) SpO2: 96% PT: No results found for requested labs within last 720 hours. INR: No results found for requested labs within last 720 hours. APTT: No results found for requested labs within last 720 hours. Hgb A1C: No results found for requested labs within last 720 hours. CBC RBC: 07/29/2018: 4.64 M/cumm RDW: No results found for requested labs within last 720 hours. MCHC: 07/29/2018: 33.4 g/dL MCH: 07/29/2018: 29.7 pg MCV: 07/29/2018: 89.0 fL Hct: 07/29/2018: 41.3 % Hgb: 07/29/2018: 13.8 g/dL WBC: 07/29/2018: 8.3 K/cumm MPV: 07/29/2018: 11.1 fL Platelets: 07/29/2018: 252 K/cumm RDW CV: 07/29/2018: 12.8 % RDW Sd: 07/29/2018: 42.0 fL BMP Glucose: No results found for requested [...] for requested labs within last 720 hours. STOP-Bang Total Score: 3 DOS Physical Exam Medical history, medications, and allergies reviewed. Attestation: I endorse the findings of the anesthesia pre-evaluation assessment dated: 08/02/2018. Airway Exam: Mallampati: I Cervical ROM: FROM Cardiovascular Exam: Rate: regular Rhythm: regular Pulmonary Exam: LCTA, bilat Anesthesia Plan ASA 2 My patient is approved for the Anesthesia Controlled Medication protocol when under care of a GUEST SERVICES AMBASSADOR Planned anesthesia: General Informed Consent: Anesthesia plan and risks discussed with patient. Consent and Attending signature: I and/or my designee have discussed the anesthesia plan, benefits, possible alternatives, parental presence at time of induction (if indicated), and clinically relevant risks that may include dental injury, unintentional awareness, and/or other complications. The patient and/or parent/legal guardian understand, and agree to proceed. All questions answered. ANY TRUCK DRIVER documented in this encounter Plan of Treatment Not on file documented as of this encounter Visit Diagnoses Not on filedocumented in this encounter Administered Medications Inactive Administered Medications - up to 3 most recent administrations Medication Order MAR Action Action Date Dose Rate Site lidocaine PF (XYLOCAINE) 10 mg/mL (1 %) preservative free injection As needed, Starting on Sun08/02/18 at 0807, Anesthesia Intra-op Given 08/02/2018 8:07 AM COMPANY TRUCK DRIVER 100 mg propofol (DIPRIVAN) IV intravenous, As needed, Starting on Sun08/02/18 at 0807, Anesthesia Intra-op Given 08/02/2018 8:23 AM COMPANY TRUCK DRIVER 100 mg Given 08/02/2018 8:16 AM COMPANY TRUCK DRIVER 100 mg Given 08/02/2018 8:11 AM COMPANY TRUCK DRIVER 100 mg documented in this encounter Care Teams Rotary Drum Dyer Relationship Specialty Start Date End Date Trenton Bess MD PCP - General 07/29/18 01/22/19 documented as of this encounter
--- OUTSIDE RECORDS SUMMARY | 2024-07-09 05:26 | XMS_ITS | Encounter Summary ---
Author Organization [facility] Address [address] [place] [address] Phone Care Team Providers Care Meatcutter Name Role Phone Trenton Bess MD Primary Care Provider [phone] Encounter Details Date Type Department Care Team (Late st Contact Info) Description 12/17/2018 Orders Only [facility] Gastroenterology [facility] 8th [place] [address] [place] [phone] Padma Mendoza, JOSH Crohn's disease of both small and large intestine with intestinal obstruction (CMS/HCC) (Primary Dx); High risk medications (not anticoagulants) long-term use Social History Tobacco Use Types Packs/Day Years Used Date Smoking Tobacco: Never Smokeless Tobacco: Never Alcohol Use Standard Drinks/Week Comments No 0 (1 standard drink = 0.6 oz pur e alcohol) Sex and Gender Information Value Date Recorded Sex Assigned at Not on file 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 Gender Identity Not on file Sexual Orientation Not on file documented as of this encounter Ordered Prescriptions Prescription Sig Dispense Quantity Refills Last Filled Start Date End Date mercaptopurine (PURINETHOL) 50 mg tabletIndications: Crohn's Disease Take 2 tabs PO daily SAFETY LABS at [facility] REQUIRED EVERY 3 MONTHS FOR REFILLS DUE 12/2018 60 tablet 1 12/17/2018 9 documented in this encounter Progress Notes * Eliana Quevedo MD - 12/17/2018 7:26 AM CDT CBC and LFTs OK * Eliana Quevedo MD - 12/17/2018 7:26 AM CDT Switch to Allo and 6MP 50mg/d; recheck metabolites in 6 weeks documented in this encounter Plan of Treatment Not on file documented as of this encounter Procedures Procedure Name Priority Date/Time Associated Diagnosis Comments COPY(IES) SENT TO: Routine 01/03/2019 8: 33 AM CDT THIOPURINE METABOLITES Routine 01/03/2019 8:33 AM CDT Crohn's disease of both small and large intestine with intestinal obstruction (CMS/HCC) High risk medications (not anticoagulants) long-term use CBC WITH AUTO DIFFERENTIAL Routine 01/03/2019 8:33 AM CDT Crohn's disease of both small and large intestine with intestinal obstruction (CMS/HCC) High risk medications (not anticoagulants) long-term use HEPATIC FUNCTION PANEL Routine 01/03/2019 8:33 AM CDT Crohn's disease of both small and large intestine with intestinal obstruction (CMS/HCC) High risk medications (not anticoagulants) long-term use documented in this encounter Results * COPY(IES) SENT TO: (01/03/2019 8:33 AM CDT) COPY(IES) SENT TO: [facility] Comment: ?[facility] ?COPY TO ACCOUNT ?[id number] ?[place] [address] 01/03/2019 8:33 AM CDT 01/03/2019 8:34 AM CDT Narrative [facility] - 01/07/2019 12:20 PM CDT FASTING:NO FASTING: NO Eliana Quevedo MD LAB BLOOD ORDERABLE S Final Result Performing Organization Address City/[facility]/ZIP Co de Phone Number [facility] * (ABNORMAL) Thiopurine metabolites (01/03/2019 8:33 AM CDT) 6-TG, bld 157(L) 235 - 400 pmol/8x10( 8)RBC [facility] Comment:Units: pmol/8x10(8) RBC 6 MMP 4,330 <5,700 pmol/8x10( 8)RBC [facility] Comment: ? Units: pmol/8x10(8) RBC These results are useful in assessing a [...] analytical performance characteristics have been determined by [facility]. It has not been cleared or approved by the US Food and Drug Administration. This assay has been validated pursuant to the CLIA regulations and is used for clinical purposes. Blood specimen (specimen) 01/03/2019 8:33 AM CDT 01/03/2019 8:34 AM CDT Narrative [facility] - 01/07/2019 12:20 PM CDT FASTING:NO FASTING: NO Resulting Agency Comment Performing Organization Information: ?Site ID: [id number] ?Name: [facility] ?Address: [address] [place] [address] ?Director: Marcio Gomes M.D., Ph.D Eliana Quevedo MD LAB BLOOD ORDERABLE S Final Result Performing Organization Address City/[facility]/ZIP Co de Phone Number [facility] [place], [place] * Hepatic function panel (01/03/2019 8:33 AM CDT) Pathologist [facility] Protein, Total 8.0 6.4 - 8.4 g/dL [facility] [place] Albumin 4.5 3.6 - 5.1 g/dL [facility] [place] Globulin 3.5 2.2 - 4.0 g/dL (calc) [facility] [place] Alb/glob ratio 1.3 0.9 - 2.3 (calc) [facility] [place] Bilirubin, total 0.5 0.2 - 1.2 mg/dL [facility] [place] Bilirubin, direct 0.1 < OR = 0.2 mg/dL [facility] [place] Bilirubin, indirect 0.4 0.2 - 1.2 mg/dL (calc) [facility] [place] Alk phos 67 40 - 115 U/L [facility] [place] AST 18 10 - 40 U/L [facility] [place] ALT (SGPT) 33 9 - 46 U/L [facility] [place] Blood specimen (specimen) 01/03/2019 8:33 AM CDT 01/03/2019 8:34 AM CDT Narrative [facility] - 01/07/2019 12:20 PM CDT FASTING:NO FASTING: NO Resulting Agency Comment Performing Organization Information: ?Site ID: [place] ?Name: [facility] ?Address: [address] [place], [place] [address] [address] ?Director: Christopher Salas D.O., MPH Eliana Quevedo MD LAB BLOOD ORDERABLE S Final Result [facility] [place] * CBC with auto differential (01/03/2019 8:33 AM CDT) Pathologist [facility] WBC 6.5 3.8 - 10.8 Thousand/u L [facility] [place] RBC, POC 4.71 4.20 - 5.80 Million/uL [facility] [place] Hgb 14.2 13.2 - 17.1 g/dL [facility] [place] Hct 43.5 38.5 - 50.0 % [facility] [place] MCV 92.4 80.0 - 100.0 fL [facility] [place] MCH 30.1 27.0 - 33.0 pg [facility] [place] MCHC 32.6 32.0 - 36.0 g/dL [facility] [place] Rdw 13.2 11.0 - 15.0 % [facility] [place] Platelets 298 140 - 400 Thousand/u L [facility] [place] MPV 10.5 7.5 - 12.5 fL [facility] [place] Neutrophils, abs 3,458 1,500 - 7,800 cells/uL [facility] [place] Lymphocytes, abs 2,678 850 - 3,900 cells/uL [facility] [place] Monocyte abs 273 200 - 950 cells/uL [facility] [place] Eosinophils, abs 52 15 - 500 cells/uL [facility] [place] Basophils, abs 39 0 - 200 cells/uL [facility] [place] Neutrophils 53.2 % [facility] [place] Lymphocyte pct 41.2 % [facility] [place] Monocytes 4.2 % [facility] [place] Eosinophils 0.8 % [facility] [place] Basophils 0.6 % [facility] [place] Blood specimen (specimen) 01/03/2019 8:33 AM CDT 01/03/2019 8:34 AM CDT Narrative [facility] - 01/07/2019 12:20 PM CDT FASTING:NO FASTING: NO Resulting Agency Comment Performing Organization Information: ?Site ID: [place] ?Name: [facility] ?Address: [address] [place] [address] ?Director: Christopher Salas D.O. MPH Eliana Quevedo MD LAB BLOOD ORDERABLE S Final Result [facility] [place] documented in this encounter Visit Diagnoses Diagnosis Crohn's disease of both small and large intestine with intestinal obstruction (HCC)- Primary High risk medications (not anticoagulants) long-term use Encounter for long-term (current) use of other medications documented in this encounter Discontinued Medications Medication Sig Discontinue Reason Start Date End Da te mercaptopurine (PURINETHOL) 50 mg tabletIndications:Croh n's Disease Take 2 tabs PO daily, labs due the weeks of: metabolites due STONEY, safety labs due 11/2018 Reorder 11/11/2018 12/17/2018 documented as of this encounter Care Teams Meatcutter Relationship Specialty Start Date End Date Trenton Bess MD PCP - General 07/29/18 01/22/19 documented as of this encounter
--- OUTSIDE RECORDS SUMMARY | 2024-07-09 05:26 | XMS_ITS | Encounter Summary ---
Author Organization [facility] Address [address] [place] [address] Phone Care Team Providers Care Marble Finisher Name Role Phone Trenton Bess MD Primary Care Provider [phone] Encounter Details Date Type Department Care Team (Late st Contact Info) Description 01/08/2019 Orders Only [facility] Gastroenterology [facility] 8th [place] [address] [place] [id number] Padma Mendoza, JOSH Crohn's disease of both [...] on file 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 Gender Identity Not on file Sexual Orientation Not on file documented as of this encounter Ordered Prescriptions Prescription Sig Dispense Quantity Refills Last Filled Start Date End Date adalimumab (HUMIRA PEN) 40 mg/0.4 mL pen injector kitIndications:Solar Engineer hn's disease of both small and large intestine with intestinal obstruction (HCC) Inject 0.4 mL (40 mg total) under the skin every 14 (fourteen) days SAFETY LABS REQUIRED EVERY 3 MONTHS FOR REFILLS DUE 04/2019 2 each 5 01/08/2019 9 documented in this encounter Plan of Treatment Not on file documented as of this encounter Visit Diagnoses Diagnosis Crohn's disease of both small and large intestine with intestinal obstruction (HCC)- Primary documented in this encounter Discontinued Medications Medication Sig Discontinue Reason Start Date End Da te adalimumab 40 mg/0.4 mL pen injector kit Inject 1 pen under the skin every 14 (fourteen) days ,safety labs required every 3 months for med refill, deu next 11/2018 Reorder 09/09/2018 01/08/2019 documented as of this encounter Care Teams Marble Finisher Relationship Specialty Start Date End Date Trenton Bess MD PCP - General 07/29/18 01/22/19 documented as of this encounter
--- OUTSIDE RECORDS SUMMARY | 2024-07-09 05:26 | XMS_ITS | Encounter Summary ---
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 When adalimumab trough concentrations are greater than 5.0 mcg/mL, clinically relevant [id number]-[id number] are unlikely and reflex testing will not be performed. REFERENCE VALUE Limit of Quantitation = 0.8 mcg/mL ADDITIONAL INFORMATION This test was developed and its performance characteristics determined by [facility] in a manner consistent with CLIA requirements. This test has not been cleared or approved by the U.S. Food and Drug Administration. Test Performed by: [facility] [place] [address] [place] [address] Blood specimen (specimen) 08/02/2018 9:47 AM CUTTING AND PRINTING MACHINE OPERATOR 08/02/2018 10:39 AM CUTTING AND PRINTING MACHINE OPERATOR Narrative [facility] - 08/06/2018 5:55 PM CUTTING AND PRINTING MACHINE OPERATOR Eliana Quevedo MD LAB BLOOD ORDERABLE S Final Result [facility] [id number] [facility]. Department [place] [address] documented in this encounter Visit Diagnoses Diagnosis [...] medications documented in this encounter Care Teams Auto Glass Technician Relationship Specialty Start Date End Date Trenton Bess MD PCP - General 07/29/18 01/22/19 documented as of this encounter
--- OUTSIDE RECORDS SUMMARY | 2024-07-09 05:26 | XMS_ITS | Encounter Summary ---
Author Organization [facility] Address [address] [place] [address] Phone Care Team Providers Care Mixing Engineer Name Role Phone Trenton Bess MD Primary Care Provider [phone] Encounter Details Date Type Department Care Team (Late st Contact Info) Description 11/11/2018 Orders Only [facility] Gastroenterology [address] [facility] 8[address] [place] [address] [place] [address] Eliana Quevedo MD [address] [place] [address] Social History Tobacco Use Types Packs/Day Years Used Date Smoking Tobacco: Never Smokeless Tobacco: Never Alcohol Use Standard Drinks/Week Comments No 0 (1 standard drink = 0.6 oz pur e alcohol) Sex and Gender Information Value Date Recorded Sex Assigned at Not on file Legal 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
--- OUTSIDE RECORDS SUMMARY | 2024-07-09 05:26 | XMS_ITS | Encounter Summary ---
Author Organization [facility] Address [address] [place] [address] Care Team Providers Care Software Quality Assurance Specialist Name Role Phone Trenton Bess MD Primary Care Provider [phone] Encounter Details Date Type Department Care Team (Late st Contact Info) Description 05/06/2018 5:00 PM ADVISORY SERVICES ASSOCIATE Lab [facility] Advanced Medicine [facility] ([facility]) [address] [place] [id number] Fernando Mckeon MD [facility] [address] [address] Low bone mass Discharge Disposition: Discharge to home or self care Social History Tobacco Use Types Packs/Day Years Used Date Smoking Tobacco: Never Smokeless Tobacco: Never Alcohol Use Standard Drinks/Week Comments No 0 (1 standard drink = 0.6 oz pur e alcohol) Sex and Gender Information Value Date Recorded Sex Assigned at Not on file Legal Sex Male 11:11 PM ADVISORY SERVICES ASSOCIATE Gender Identity Not on file Sexual Orientation Not on file documented as of this encounter Discharge Disposition Disposition Code Departure Means Destination Discharge to home or self care documented in this encounter Plan of Treatment Not on file documented as of this encounter Procedures Procedure Name Priority Date/Time Associated Diagnosis Comments VITAMIN D 25 HYDROXY Routine 05/06/2018 4:58 PM ADVISORY SERVICES ASSOCIATE Low bone mass documented in this encounter Results * Vitamin D 25 hydroxy (05/06/2018 4:58 PM ADVISORY SERVICES ASSOCIATE) Vitamin D 25-OH 30 30 - 80 ng/mL [facility] Blood specimen (specimen) 05/06/2018 4:58 PM ADVISORY SERVICES ASSOCIATE 05/06/2018 5:41 PM ADVISORY SERVICES ASSOCIATE N[facility]ative [facility] - 05/06/2018 7:38 PM ADVISORY SERVICES ASSOCIATE us Fernando Mckeon MD LAB BLOOD ORDERABLES Final Resu lt [facility] Department [place] [address] documented in this encounter Visit Diagnoses Diagnosis Low bone mass documented in this encounter Care Teams Software Quality Assurance Specialist Relationship Specialty Start Date End Date Trenton Bess MD PCP - General 04/30/17 07/24/18 documented as of this encounter
--- OUTSIDE RECORDS SUMMARY | 2024-07-09 05:26 | XMS_ITS | Encounter Summary ---
Author Organization [facility] Address [address] [place] [address] Phone Care Team Providers Care Sat Math Tutor Name Role Phone Trenton Bess MD Primary Care Provider [phone] Lanre Parekh DO Primary Care Provide r Encounter Details Date Type Department Care Team (Late st Contact Info) Description 07/23/2018 Orders Only [facility] Gastroenterology [address] [facility] 8th [place] [address] [place] [address] Zohra Davila RMA Social History Tobacco Use Types Packs/Day Years Used Date Smoking Tobacco: Never Smokeless Tobacco: Never Alcohol Use Standard Drinks/Week Comments No 0 (1 standard drink = 0.6 oz pur e alcohol) Sex and Gender Information Value Date Recorded Sex Assigned at Not on file 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 fexofenadine (EMMA) 180 mg tablet TK 1 T PO D 0 06/08/2018 07/25/2018 added in this encounter Care Teams Sat Math Tutor Relationship Specialty Start Date End Date Trenton Bess MD PCP - General 04/30/17 07/24/18 Lanre Parekh DO [address] [place] [id number] PCP - General Family Medicine 07/25/18 07/28/18 documented as of this encounter
--- OUTSIDE RECORDS SUMMARY | 2024-07-09 05:26 | XMS_ITS | Encounter Summary ---
Author Organization [facility] Healthcare Address [address] [place] [address] Care Team Providers Care Assistant Softball Coach Name Role Phone Trenton Bess MD Primary Care Provider [phone] Encounter Details Date Type Department Care Team (Late st Contact Info) Description 08/02/2018 8:00 AM TELE RN - 08/02/2018 8:30 AM [facility] Surgery [facility] Endoscopy [address] [place] [address] Eliana Quevedo MD [address] [facility] [address] [place], [place] [id number] COLON DILATION 10R>STRICT Surgery Details Date/Time Status Location OR Service Patient Class Case Class Case Type Trauma Case? 08/02/2018 8:00 AM Posted [facility] ENDOSCOPY ASCGI 02 Gastroenterology Outpatient Elective Panel 1 Procedure LRB Anes Op Region Wound Class Comments COLON DILATION 10R>STRICT N/A Monitor Anesthesia Care Colon N/A Surgeon [...] on file Legal Sex Male 11:11 PM TELE RN Gender Identity Not on file Sexual Orientation Not on file documented as of this encounter Last Filed Vital Signs Vital Sign Reading Time Taken Comments Blood Pressure 138/81 08/02/2018 6:59 AM TELE RN Pulse 87 08/02/2018 6:59 AM TELE RN Temperature 36.1 ??C (97 ??F) 08/02/2018 6:59 AM TELE RN Respiratory Rate 20 08/02/2018 6:59 AM TELE RN Oxygen Saturation 96% 08/02/2018 6:59 AM TELE RN Inhaled Oxygen Concentration - - Weight 76.2 kg (168 lb) 08/02/2018 6:59 AM TELE RN Height 170.2 cm (5' 7 ) 08/02/2018 6:59 AM TELE RN Body Mass Index 26.31 08/02/2018 6:59 AM TELE RN documented in this encounter Medications at Time of Discharge multivitamin capsuleIndications :Vitamin Deficiency Prevention Take 1 capsule by mouth every morning hyoscyamine (LEVSIN) 0.125 mg tabletIndications: Crohn's Disease Take 1 tablet (0.125 mg total) by mouth every 6 (six) hours as needed for cramping or diarrhea. 120 tablet 1 03/01/2018 9 adalimumab 40 mg/0.4 mL pen injector kit Inject 1 pen under the skin every 14 (fourteen) days. ,safety labs required every 3 months for med refill, deu next 09/2018 2 kit 5 07/30/2018 9 balsalazide (COLAZAL) 750 mg capsuleIndications :Ulcerative Colitis TAKE 3 CAPSULES 3 TIMES DAILY.( clarified script) 02/01/2017 9 calcium carbonate (OS-ANA) 1,500 mg (600 mg of elemental calcium) tablet every morning. 11/16/2017 9 CANNABIDIOL, CBD, EXTRACT ORAL Take by mouth. 04/03/20 1 9 cholecalciferol (VITAMIN D-3) 1,000 unit Take 1,000 Units by mouth every morning. 9 colestipol (COLESTID) 1 gram tabletIndications: Diarrhea, unspecified type Take 1 tablet (1 g total) by mouth 4 (four) times a day as needed (fat driven diarrhea). 120 tablet 3 02/11/2018 9 ergocalciferol (VITAMIN D) 50,000 unit capsuleIndications :Osteoporosis, unspecified osteoporosis type, unspecified pathological fracture presence Take 1 capsule (50,000 Units total) by mouth every 14 (fourteen) days. 6 capsule 3 05/20/2018 9 folic acid (FOLVITE) 1 mg tablet Take 1 tablet PO daily 90 tablet 3 04/16/2018 9 methotrexate 2.5 mg tabletIndications: Crohn's diseas of small and large intestines with complication Take 10 Tablets by mouth weekly all at once on the same day (Safety Labs required every 3 months for med refills due next 09/2018) 40 tablet 2 07/30/2018 9 omega 0-soj-wsz-fish oil 300-1,000 mg capsule 1 capsule every morning. 11/16/2017 9 documented as of this encounter Discharge Disposition Disposition Code Departure Means Destination Discharge to home or self care documented in this encounter H&P Notes * Eliana Quevedo MD - 08/01/2018 2:55 PM CST Pre Endoscopy History and Physical Nic Teran is a 27 y.o. male who is here for Procedure(s): Colonoscopy The indication(s) for the procedure(s): IBD. Past Medical History: Diagnosis Date ??? Allergic rhinitis ??? Anemia ??? Crohn's disease (CMS/HCC) ??? GERD (gastroesophageal reflux disease) ??? Iritis Past Surgical History: Procedure Laterality Date ??? COLONOSCOPY 2017 multiple ??? OTHER SURGICAL HISTORY 12/2017 ileocecal resection ??? VASECTOMY 2017 Social History Substance Use Topics ??? Smoking status: Never Smoker ??? Smokeless tobacco: Never Used ??? Alcohol use No Family History Problem Relation Age of Onset ??? Hypertension Mother Family history of hypertension - (Added by TW Conv) ??? Kidney failure Mother Family history of renal failure - (Added by TW Conv) ??? Hypertension Father Family history of hypertension - (Added by TW Conv) ??? Ulcerative colitis Mother's Sister Flagyl [metronidazole] Prior to Admission medications Medication Sig Start Date End Date Taking? Authorizing Provider omega 0-tkg-bxz-fish oil 300-1,000 mg capsule 1 capsule every morning. 11/16/17 Yes Historical Provider, adalimumab 40 mg/0.4 mL pen injector kit Inject 1 pen under the skin every 14 (fourteen) days. ,safety labs required every 3 months for med refill, deu next 09/201807/30/18 Eliana Quevedo MD balsalazide (COLAZAL) 750 mg capsule TAKE 3 CAPSULES 3 TIMES DAILY.( clarified script) 02/01/17 Historical Provider, calcium carbonate (OS-ANA) 1,500 mg (600 mg of elemental calcium) tablet every morning. 11/16/17 Historical Provider, CANNABIDIOL, CBD, EXTRACT ORAL Take by mouth. Historical Provider, cholecalciferol (VITAMIN D-3) 1,000 unit Take 1,000 Units by mouth every morning. Historical Provider, colestipol (COLESTID) 1 gram tablet Take 1 tablet (1 g total) by mouth 4 (four) times a day as needed (fat driven diarrhea). 02/11/18 Veronica Hyatt NP ergocalciferol (VITAMIN D) 50,000 unit capsule Take 1 capsule (50,000 Units total) by mouth every 14 (fourteen) days. 05/20/18 05/20/19 Fernando Mckeon MD folic acid (FOLVITE) 1 mg tablet Take 1 tablet PO daily 04/16/18 Eliana Quevedo MD hyoscyamine (LEVSIN) 0.125 mg tablet Take 1 tablet (0.125 mg total) by mouth every 6 (six) hours asneeded for cramping or diarrhea. 03/01/18 03/01/19 Eliana Quevedo MD methotrexate 2.5 mg tablet Take 10 Tablets by mouth weekly all at once on the same day (Safety Labsrequired every 3 months for med refills due next 09/2018) 07/30/18 Eliana Quevedo MD multivitamin capsule Take 1 [...] planned procedure for the reasons stated above. RN documented in this encounter Procedure Notes * Eliana Quevedo MD - 08/02/2018 8:01 AM CSTAssociated Order(s): COLONOSCOPY ENDOSCOPY LAB Patient Name: Nic Teran Procedure Date: 08/02/2018 8:01 AM Date of : 1990 Admit Type: Outpatient Age: 27 Gender: Male Attending MD: Eliana Quevedo M.D. Room: [place] [address] Note Status: Finalized Procedure Date No Time: 08/02/2018 Procedure: Colonoscopy Indications: High risk colon cancer surveillance: Crohn's disease of 8 (or more) years duration, on Humira and MTX Providers: Eliana Quevedo M.D. Referring MD: Self Referral Medicines: Monitored Anesthesia Care Complications: No immediate complications. Estimated Blood Loss: Estimated blood loss: none. Procedure: Pre-Anesthesia Assessment: - Immediately prior to administration of medications, the patient was re-assessed for adequacy to receive sedatives. - The risks and benefits of the [...] scope was passed under direct vision. The [id number] was introduced through the anus and advanced to the 15 cm into the ileum. The colonoscopy was performed without difficulty. The patient tolerated the procedure well. The quality of the bowel preparation was evaluated using the BBPS (Hollywood Bowel Preparation Scale) with scores of: Right Colon = 3, Transverse Colon = 3 and Left Colon = 3 (entire mucosa seen well with no residual staining, small fragments of stool or opaque liquid). The total BBPS score equals 9. Findings: The perianal and digital rectal examinations were normal. There was evidence of a prior end-to-side ileo-colonic anastomosis in the ascending colon. This was non-patent. This was characterized by healthy appearing mucosa. This was traversed after dilation. A TTS dilator was passed through the scope. Dilation with an 18 mm anastomotic balloon dilator was performed. The dilation site was examined and showed moderate improvement in luminal narrowing. The jayna-terminal ileum contained a few scattered non-bleeding aphthae. No stigmata of recent bleeding were seen. Normal mucosa was found in the entire colon. Staining chromoscopy with methylene blue was performed. The retroflexed view of the distal rectum and anal verge was normal and showed no anal or rectal abnormalities. Impression: - Non-patent end-to-side ileo-colonic anastomosis, characterized by healthy appearing mucosa. Dilated. - Aphtha in the jayna-terminal ileum. - Normal mucosa in the entire examined colon. Chromoscopy performed. - The distal rectum and anal verge are normal on retroflexion view. - No specimens collected. Recommendation: - Repeat colonoscopy in 1 year for surveillance. - Check Humira trough level. Attending Participation: I personally performed the entire procedure. Electronically signed by Eliana Quevedo M.D. Eliana Quevedo M.D. 08/02/2018 8:42:01 AM Number of Addenda: 0 Note Initiated On: 08/02/2018 8:01 AM RN documented in this encounter Miscellaneous Notes * Perioperative Nursing Note - Kelli Betancourt RN - 08/02/2018 9:45 AM TELE RN Labs drawn and sent RN * Pre-Procedure Instructions - Dina Erickson RN - 07/31/2018 3:28 PM TELE RN Come to [facility] hospital entrance and register at desk. Follow any and all instructions given to you re:bowel prep. Bring drivers license examiner's license or photo ID, insurance cards. Leave any valuables at home including jewelry, [place]. Bring case for eye glasses. Dress comfortably. Please have ride arranged to and from hospital with a responsible adult-someone who knows you and that can care for you. RN documented in this encounter Plan of Treatment Not on file documented as of this encounter Procedures Procedure Name Priority Date/Time Associated Diagnosis Comments ADALIMUMAB QUANTITATIVE WITH REFLEX TO ANTIBODY, SERUM Routine 08/02/2018 9:47 AM TELE RN Crohn's disease of both small and large intestine without complication (CMS/HCC) High risk medications (not anticoagulants) long-term use COLON DILATION 10R>STRICT 08/02/2018 8:04 AM TELE RN Crohn's disease of both small and large intestine with other complication (CMS/HCC) COLONOSCOPY 08/02/2018 8:01 AM TELE RN documented in this encounter Results * Adalimumab quantitative with reflex to antibody, serum (08/02/2018 9:47 AM TELE RN) ADALX Quant 11.0 mcg/mL [facility] Comment: For clinical assessment of response to therapy, adalimumab should be measured at trough. When adalimumab trough concentrations are greater than 5.0 mcg/mL, clinically relevant jlgckpigxb-ko-mejhoczvsr are unlikely and reflex testing will not be performed. REFERENCE VALUE Limit of Quantitation = 0.8 mcg/mL ADDITIONAL INFORMATION This test was developed and its performance characteristics determined by [facility] in a manner consistent with CLIA requirements. This test has not been cleared or approved by the U.S. Food and Drug Administration. Test Performed by: [facility] Laboratories - [facility] [address] [place] [address] Blood specimen (specimen) 08/02/2018 9:47 AM TELE RN 08/02/2018 10:39 AM TELE RN Narrative [facility] - 08/06/2018 5:55 PM TELE RN us Eliana Quevedo MD LAB BLOOD ORDERABLE S Final Result [facility] [address] [place] [address] * COLONOSCOPY (08/02/2018 8:01 AM TELE RN) Anatomical Region Laterality Modality Other Narrative Procedure Note Eliana Quevedo MD - 08/02/2018 8:01 AM CST ENDOSCOPY LAB Patient Name: Nic Teran Procedure Date: 08/02/2018 8:01 AM Date of : 1990 Admit Type: Outpatient Age: 27 Gender: Male Attending MD: Eliana Quevedo M.D. Room: [place] [address] Note Status: Finalized Procedure Date No Time: 08/02/2018 Procedure: Colonoscopy Indications: High risk colon cancer surveillance: Crohn's disease of8 (or more) years duration, on Humira and MTX Providers: Eliana Quevedo M.D. Referring MD: Self Referral Medicines: Monitored Anesthesia Care Complications: No immediate complications. Estimated Blood Loss: Estimated blood loss: none. Procedure: Pre-Anesthesia Assessment: - Immediately prior to administration of medications,the patient was re-assessed for adequacy to receivesedatives. - The risks and benefits of the procedure and thesedation options and risks were discussed with the patient. All questions were answered and informed consent wasobtained. - Pre-procedure physical examination revealed no contraindications to sedation. The benefits, risks and alternatives of the procedureand sedation were discussed and informed consent wasobtained. All questions were answered. Please refer to the signed informed consent document in the medical record. Thescope was passed under direct vision. The [id number] introduced through the anus and advanced to the 15 cminto the ileum. The colonoscopy was performed without difficulty. The patient tolerated the procedure well.The quality of the bowel preparation was evaluated usingthe BBPS (Hollywood Bowel Preparation Scale) with scores of: Right Colon = 3, Transverse Colon = 3 and Left Colon =3 (entire mucosa seen well with no residual staining,small fragments of stool or opaque liquid). The total BBPSscore equals 9. Findings: The perianal and digital rectal examinations were normal. There was evidence of a prior end-to-side ileo-colonic anastomosis in the ascending colon. This was non-patent. This was characterized by healthy appearing mucosa. This was traversed after dilation. A TTS dilator was passed through the scope. Dilation with an 18 mmanastomotic balloon dilator was performed. The dilation site was examined andshowed moderate improvement in luminal narrowing. The jayna-terminal ileum contained a few scattered non-bleedingaphthae. No stigmata of recent bleeding were seen. Normal mucosa was found in the entire colon. Staining chromoscopywith methylene blue was performed. The retroflexed view of the distal rectum and anal verge was normaland showed no anal or rectal abnormalities. Impression: - Non-patent end-to-side ileo-colonic anastomosis, characterized by healthy appearing mucosa. Dilated. - Aphtha in the jayna-terminal ileum. - Normal mucosa in the entire examined colon.Chromoscopy performed. - The distal rectum and anal verge are normal on retroflexion view. - No specimens collected. Recommendation: - Repeat colonoscopy in 1 year for surveillance. - Check Humira trough level. Attending Participation: I personally performed the entire procedure. Electronically signed by Eliana Quevedo M.D. Eliana Quevedo M.D. 08/02/2018 8:42:01 AM Number of Addenda: 0 Note Initiated On: 08/02/2018 8:01 AM us Eliana Quevedo MD ENDOSCOPY PROCEDURE [...] intra-catheter, As needed, line care, Starting on Sun08/02/18 at 0702, Pre-Procedure (GI), Flush volume based on line type and size. Flush before and after each use. , Indications: FlushingIndications:Flushing sodium chloride 0.9% infusion 30 mL/hr, intravenous, Continuous, Starting on Sun08/02/18 at 0745, Pre-Procedure (GI) New Bag 08/02/2018 7:16 AM TELE RN 30 mL/hr 30 mL/hr documented in this encounter Discontinued Medications Medication Sig Discontinue Reason Start Date End Da te UNABLE TO FIND cbd oil 07/31/2018 documented as of this encounter Active and Recently Administered Medications Times are shown in TELE RN. Continuous Medication Order 07/31/2018 08/01/2018 08/02/2018 sodium chloride 0.9% infusion 30 mL/hr, intravenous, Continuous, Starting on Sun08/02/18 at 0745, Pre-Procedure (GI) 0716 (New Bag - Prov ider: Sudha Giarldo RN)0834 (Anesthesia Volume Adjustment - Provider: Reginaldo Covington CRNA) PRN Medication Order 07/31/2018 08/01/2018 08/02/2018 sodium chloride 0.9% flush 0.5-20 mL 0.5-20 mL, intra-catheter, As needed, line care, Starting on Sun08/02/18 at 0702, Pre-Procedure (GI), Flush volume based on line type and size. Flush before and after each use. , Indications: Flushing documented in this encounter Orders Medications Ordered That Nilo ht Not Have Been Administered Count Last Ordered Date First Ordered Date sodium chloride 0.9% flush 0.5-20 mL 1 07/2018 documented in this encounter Care Teams Assistant Softball Coach Relationship Specialty Start Date End Date Trenton Bess MD PCP - General 07/29/18 01/22/19 documented as of this encounter
--- OUTSIDE RECORDS SUMMARY | 2024-07-09 05:26 | XMS_ITS | Encounter Summary ---
Author Organization [facility] Address [address] [place] [address] Phone Care Team Providers Care Houseperson Name Role Phone Trenton Bess MD Primary Care Provider [phone] Encounter Details Date Type Department Care Team (Late st Contact Info) Description 09/09/2018 Orders Only [facility] Gastroenterology [facility] 8th [place] [address] [place] [phone] Padma Mendoza RN Social History Tobacco Use Types Packs/Day Years Used Date Smoking Tobacco: Never Smokeless Tobacco: Never Alcohol Use Standard Drinks/Week Comments No 0 (1 standard drink = 0.6 oz pur e alcohol) Sex and Gender Information Value Date Recorded Sex Assigned at Not on file 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 Gender Identity Not on file Sexual Orientation Not on file documented as of this encounter Ordered Prescriptions Prescription Sig Dispense Quantity Refills Last Filled Start Date End Date adalimumab 40 mg/0.4 mL pen injector kit Inject 1 pen under the skin every 14 (fourteen) days ,safety labs required every 3 months for med refill, deu next 11/2018 2 kit 5 09/09/2018 9 documented in this encounter Plan of Treatment Not on file documented as of this encounter Visit Diagnoses Not on filedocumented in this encounter Discontinued Medications Medication Sig Discontinue Reason Start Date End Da te adalimumab 40 mg/0.4 mL pen injector kit Inject 1 pen under the skin every 14 (fourteen) days. ,safety labs required every 3 months for med refill, deu next 09/2018 Reorder 07/30/2018 09/09/2018 documented as of this encounter Care Teams Houseperson Relationship Specialty Start Date End Date Trenton Bess MD PCP - General 07/29/18 01/22/19 documented as of this encounter
--- OUTSIDE RECORDS SUMMARY | 2024-07-09 05:26 | XMS_ITS | Encounter Summary ---
Author Organization [facility] Address [address] [place] [address] Phone Care Team Providers Care Power Transformer Repair Supervisor Name Role Phone Trenton Bess MD Primary Care Provider [phone] Encounter Details Date Type Department Care Team (Late st Contact Info) Description 10/17/2018 Orders Only [facility] Gastroenterology [facility] 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 Gender Identity Not on file Sexual Orientation Not on file documented as of this encounter Ordered Prescriptions Prescription Sig Dispense Quantity Refills Last Filled Start Date End Date metroNIDAZOLE (FLAGYL) 250 mg tablet Take 1 tablet (250 mg total) by mouth 3 (three) times a day for 7 days 21 tablet 10/17/2018 10/24/2018 documented in this encounter Plan of Treatment Not on file documented as of this encounter Visit Diagnoses Not on filedocumented in this encounter Care Teams Power Transformer Repair Supervisor Relationship Specialty Start Date End Date Trenton Bess MD PCP - General 07/29/18 01/22/19 documented as of this encounter
--- OUTSIDE RECORDS SUMMARY | 2024-07-09 05:26 | XMS_ITS | Encounter Summary ---
Author Organization [facility] Address [address] [place] [address] Phone Care Team Providers Care Jewelry Repairer Name Role Phone Trenton Bess MD Primary Care Provider [phone] Encounter Details Date Type Department Care Team (Late st Contact Info) Description 06/10/2018 Telephone [facility] Gastroenterology [facility] 8th [place] [address] [place] [id number] Eliana Quevedo MD [address] [place] [address] Social History Tobacco Use Types Packs/Day Years Used Date Smoking Tobacco: Never Smokeless Tobacco: Never Alcohol Use Standard Drinks/Week Comments No 0 (1 standard drink = 0.6 oz pur e alcohol) Sex and Gender Information Value Date Recorded Sex Assigned at Not on file Legal Sex Male 11:11 PM NURSING HOME MANAGER Gender Identity Not on file Sexual Orientation Not on file documented as of this encounter Miscellaneous Notes * Telephone Encounter - Veronica Morse NP - 06/10/2018 8:14 AM CST I believe called legal consultant GI over the weekend and went to ER ING HOME MANAGER * Telephone Encounter - Mona Esqueda MA - 06/10/2018 8:06 AM CST Pt's LMOR stating pt c/o throat pain for the past 2 days. Pt's throat was swabbed, but no results yet. Last night pt was given throat lozenges and then c/o throat burning sensation which pt's says is a Crohn's flare in his mouth. They would like to know what to do. ING HOME MANAGER documented in this encounter Plan of Treatment Not on file documented as of this encounter Visit Diagnoses Not on filedocumented in this encounter Care Teams Jewelry Repairer Relationship Specialty Start Date End Date Trenton Bess MD PCP - General 04/30/17 07/24/18 documented as of this encounter
--- OUTSIDE RECORDS SUMMARY | 2024-07-09 05:26 | XMS_ITS | Encounter Summary ---
Author Organization [facility] Address [address] [place] [address] Phone Care Team Providers Care Carry Out Clerk And Shelf Stocker Name Role Phone Trenton Bess MD Primary Care Provider [phone] Encounter Details Date Type Department Care Team (Late Contact Info) Description 08/07/2018 Telephone [facility] Gastroenterology [facility] 8th [place] [address] [place] [phone] Eliana Quevedo MD [address] [place] [address] Social History Tobacco Use Types Packs/Day Years Used Date Smoking Tobacco: Never Smokeless Tobacco: Never Alcohol Use Standard Drinks/Week Comments No 0 (1 standard drink = 0.6 oz pur e alcohol) Sex and Gender Information Value Date Recorded Sex Assigned at Not on file Legal Sex Male 11:11 PM FIELD CROP HARVEST WORKER Gender Identity Not on file Sexual Orientation Not on file documented as of this encounter Miscellaneous Notes * Telephone Encounter - Eliana Quevedo MD - 08/08/2018 3:01 PM FIELD CROP HARVEST WORKER Spoke to the patient. 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 He will stop the MTX, start 6MP 100mg. He was previously on AZA for 2-3 years but does not rememberthe dose. Check labs like any other new start. Check metabolites in 6 weeks. Will plan for colonoscopy in late summer/Fall. D CROP HARVEST WORKER * Telephone Encounter - Mona Esqueda MA - 08/07/2018 2:04 PM CST Pt returned your call. Confirmed pt will be available the rest of the day at his home number. D CROP HARVEST WORKER documented in this encounter Plan of Treatment Not on file documented as of this encounter Visit Diagnoses Not on filedocumented in this encounter Care Teams Carry Out Clerk And Shelf Stocker Relationship Specialty Start Date End Date Trenton Bess MD PCP - General 07/29/18 01/22/19 documented as of this encounter
--- OUTSIDE RECORDS SUMMARY | 2024-07-09 05:26 | XMS_ITS | Encounter Summary ---
Author Organization [facility] Address [address] [place] [address] Phone Care Team Providers Care Title Abstractor Name Role Phone Lanre Parekh Primary Care Provide r Trenton Bess MD Primary Care Provider [phone] Encounter Details Date Type Department Care Team (Late st Contact Info) Description 07/25/2018 Orders Only [facility] Gastroenterology [address] [facility] 8th [place] [address] [place] [phone] Eliana Quevedo MD [address] [place] [address] Swollen tonsil (Primary Dx) Social History Tobacco Use Types Packs/Day Years Used Date Smoking Tobacco: Never Smokeless Tobacco: Never Alcohol Use Standard Drinks/Week Comments No 0 (1 standard drink = 0.6 oz pur e alcohol) Sex and Gender Information Value Date Recorded Sex Assigned at Not on file Legal Sex Male 11:11 PM BRAILLE TYPIST Gender Identity Not on file Sexual Orientation Not on file documented as of this encounter Progress Notes * Mona Esqueda MA - 07/25/2018 9:08 AM CST S/w ENT Department and made IOV for pt for 07/25/2018 at 10:15am. Padma to inform pt. Referral sent. LLE TYPIST documented in this encounter Plan of Treatment Not on file documented as of this encounter Visit Diagnoses Diagnosis Swollen tonsil- Primary documented in this encounter Care Teams Title Abstractor Relationship Specialty Start Date End Date Lanre Parekh DO [address] [place] [id number] PCP - General Family Medicine 07/25/18 07/28/18 Trenton Bess MD [address] [place] [address] PCP - General 07/29/18 01/22/19 documented as of this encounter
--- OUTSIDE RECORDS SUMMARY | 2024-07-09 05:26 | XMS_ITS | Encounter Summary ---
Author Organization [facility] Address [address] [place] [address] Phone Care Team Providers Care Head Pastry Chef Name Role Phone Trenton Bess MD Primary Care Provider [phone] Encounter Details Date Type Department Care Team (Late st Contact Info) Description 08/12/2018 Orders Only [facility] Gastroenterology [facility] 8th [place] [address] [place] [phone] Padma Mendoza, JOSH Crohn's disease of small [...] Progress Notes * Eliana Quevedo MD - 08/12/2018 8:01 AM CST CBC OK documented in this encounter Plan of Treatment Scheduled Orders Name Type Priority Associated Diagnoses Orde r Schedule CBC with auto differential Lab Routine Crohn's disease of small and large intestines with complication (CMS/HCC) High risk medications (not anticoagulants) long-term use every 2 weeks for 4 Occurrences starting 08/12/2018 until 08/12/2019, 2 completed Hepatic function panel Lab Routine Crohn's disease of small and large intestines with complication (CMS/HCC) High risk medications (not anticoagulants) long-term use every 2 weeks for 4 Occurrences starting 08/12/2018 until 08/12/2019, 2 completed Thiopurine metabolites Lab Routine Crohn's disease of small and large intestines with complication (CMS/HCC) High risk medications (not anticoagulants) long-term use Expected: 09/27/2018 (Approximate), Expires: 08/12/2019 documented as of this encounter Procedures Procedure Name Priority Date/Time Associated Diagnosis Comments COPY(IES) SENT TO: Routine 10/05/2018 9: 44 AM CDT CBC WITH AUTO DIFFERENTIAL Routine 10/05/2018 9:44 AM CDT Crohn's disease of small and large intestines with complication (CMS/HCC) High risk medications (not anticoagulants) long-term use COPY(IES) SENT TO: Routine 09/07/2018 7: 28 AM DRAPERY WORKER CBC WITH AUTO DIFFERENTIAL Routine 09/07/2018 7:28 AM DRAPERY WORKER HEPATIC FUNCTION PANEL Routine 09/07/2018 7:28 AM DRAPERY WORKER Crohn's disease of small and large intestines with complication (CMS/HCC) High risk medications (not anticoagulants) long-term use COPY(IES) SENT TO: Routine 08/16/2018 11 :38 AM DRAPERY WORKER THIOPURINE METABOLITES Routine 08/16/2018 11:38 AM DRAPERY WORKER CBC WITH AUTO DIFFERENTIAL Routine 08/16/2018 11:38 AM DRAPERY WORKER Crohn's disease of small and large intestines with complication (CMS/HCC) High risk medications (not anticoagulants) long-term use HEPATIC FUNCTION PANEL Routine 08/16/2018 11:38 AM DRAPERY WORKER Crohn's disease of small and large intestines with complication (CMS/HCC) High risk medications (not anticoagulants) long-term use documented in this encounter Results * COPY(IES) SENT TO: (10/05/2018 9:44 AM CDT) COPY(IES) SENT TO: [facility] Comment: ?[facility] ?COPY TO ACCOUNT ?[id number] [facility] [address] ?[place] [address] 10/05/2018 9:44 AM CDT 10/05/2018 9:44 AM CDT us Eliana Quevedo MD LAB BLOOD ORDERABLE S Final Result [facility] * CBC with auto differential (10/05/2018 9:44 AM CDT) WBC 5.0 3.8 - 10.8 Thousand/u L [facility] [place] RBC, POC 4.55 4.20 - 5.80 Million/uL [facility] [place] Hgb 14.2 13.2 - 17.1 g/dL [facility] [place] Hct 41.7 38.5 - 50.0 % [facility] [place] MCV 91.6 80.0 - 100.0 fL [facility] [place] MCH 31.2 27.0 - 33.0 pg [facility] [place] MCHC 34.1 32.0 - 36.0 g/dL [facility] [place] Rdw 13.0 11.0 - 15.0 % [facility] [place] Platelets 253 140 - 400 Thousand/u L [facility] [place] MPV 11.2 7.5 - 12.5 fL [facility] [place] Neutrophils, abs 2,465 1,500 - 7,800 cells/uL [facility] [place] Lymphocytes, abs 2,165 850 - 3,900 cells/uL [facility] [place] Monocyte abs 280 200 - 950 cells/uL [facility] [place] Eosinophils, abs 60 15 - 500 cells/uL [facility] [place] Basophils, abs 30 0 - 200 cells/uL [facility] [place] Neutrophils 49.3 % [facility] [place] Lymphocyte pct 43.3 % [facility] [place] Monocytes 5.6 % [facility] [place] Eosinophils 1.2 % [facility] [place] Basophils 0.6 % [facility] [place] Comment: ? Your request to have a duplicate copy faxed has been acknowledged. ?Queued to: ??[id number] Blood specimen (specimen) 10/05/2018 9:44 AM CDT 10/05/2018 9:44 AM CDT Narrative Resulting Agency Comment Performing Organization Information: ?Site ID: [place] ?Name: [facility] ?Address: [address] [phone] ?Director: Christopher Salas D.O., MPH Eliana Quevedo MD LAB BLOOD ORDERABLE S Final Result [facility] [place] * CBC with auto differential (09/07/2018 7:28 AM DRAPERY WORKER) WBC 6.5 3.8 - 10.8 Thousand/u L [facility] [place] RBC, POC 4.58 4.20 - 5.80 Million/uL [facility] [place] Hgb 14.0 13.2 - 17.1 g/dL [facility] [place] Hct 43.0 38.5 - 50.0 % [facility] [place] MCV 93.9 80.0 - 100.0 fL [facility] [place] MCH 30.6 27.0 - 33.0 pg [facility] [place] MCHC 32.6 32.0 - 36.0 g/dL [facility] [place] Rdw 12.4 11.0 - 15.0 % [facility] [place] Platelets 239 140 - 400 Thousand/u L [facility] [place] MPV 11.6 7.5 - 12.5 fL [facility] [place] Neutrophils, abs 3,718 1,500 - 7,800 cells/uL [facility] [place] Lymphocytes, abs 2,256 850 - 3,900 cells/uL [facility] [place] Monocyte abs 403 200 - 950 cells/uL [facility] [place] Eosinophils, abs 72 15 - 500 cells/uL [facility] [place] Basophils, abs 52 0 - 200 cells/uL [facility] [place] Neutrophils 57.2 % [facility] [place] Lymphocyte pct 34.7 % [facility] [place] Monocytes 6.2 % [facility] [place] Eosinophils 1.1 % [facility] [place] Basophils 0.8 % [facility] [place] Comment: ? Your request to have a duplicate copy faxed has been acknowledged. ?Queued to: ??[id number] 09/07/2018 7:28 AM DRAPERY WORKER 09/07/2018 7:28 AM DRAPERY WORKER Narrative Resulting Agency Comment Performing Organization Information: ?Site ID: [place] ?Name: [facility] ?Address: [address] [place] [address] [address] [id number] ?Director: Christopher Salas D.O., MPH us Eliana Quevedo MD LAB BLOOD ORDERABLE S Final Result [facility] [place] * COPY(IES) SENT TO: (09/07/2018 7:28 AM DRAPERY WORKER) COPY(IES) SENT TO: [facility] Comment: ?[facility] ?COPY TO ACCOUNT ?[id number] [facility] [address] ?[place] [address] 09/07/2018 7:28 AM DRAPERY WORKER 09/07/2018 7:28 AM DRAPERY WORKER us Eliana Quevedo MD LAB BLOOD ORDERABLE S Final Result [facility] * Hepatic function panel (09/07/2018 7:28 AM DRAPERY WORKER) Protein, Total 7.8 6.4 - 8.4 g/dL [facility] [place] Albumin 4.5 3.6 - 5.1 g/dL [facility] [place] Globulin 3.3 2.2 - 4.0 g/dL (calc) [facility] [place] Alb/glob ratio 1.4 0.9 - 2.3 (calc) [facility] [place] Bilirubin, total 0.8 0.2 - 1.2 mg/dL [facility] [place] Bilirubin, direct 0.2 < OR = 0.2 mg/dL [facility] [place] Bilirubin, indirect 0.6 0.2 - 1.2 mg/dL (calc) [facility] [place] Alk phos 63 40 - 115 U/L [facility] [place] AST 16 10 - 40 U/L [facility] [place] ALT (SGPT) 26 9 - 46 U/L [facility] [place] Blood specimen (specimen) 09/07/2018 7:28 AM DRAPERY WORKER 09/07/2018 7:28 AM DRAPERY WORKER Narrative Resulting Agency Comment Performing Organization Information: ?Site ID: [place] ?Name: [facility] ?Address: [address] [place] [address] [address] [address] ?Director: Christopher Salas D.O., MPH us Eliana Quevedo MD LAB BLOOD ORDERABLE S Final Result [facility] [place] [address] * (ABNORMAL) Thiopurine metabolites (08/16/2018 11:38 AM DRAPERY WORKER) [facility] 6-TG, bld 86(L) 235 - 400 pmol/8x10( 8)RBC [facility] Comment:Units: pmol/8x10(8) RBC 6 MMP 3,266 <5,700 pmol/8x10( 8)RBC [facility] [...] analytical performance characteristics have been determined by [facility]. It has not been cleared or approved by the US Food and Drug Administration. This assay has been validated pursuant to the CLIA regulations and is used for clinical purposes. ? Your request to have a duplicate copy faxed has been acknowledged. ?Queued to: ??[id number] 08/16/2018 11:3 8 AM DRAPERY WORKER 08/16/2018 11:39 AM DRAPERY WORKER Narrative Resulting Agency Comment Performing Organization Information: ?Site ID: [facility] ?Name[facility] ?Address: [id number] [place] [phone] ?Director: Marcio Gomes M.D., Ph.D Eliana Quevedo MD LAB BLOOD ORDERABLE S Final Result Performing Organization Address [facility] de Phone Number [facility] - [place], [place] * COPY(IES) SENT TO: (08/16/2018 11:38 AM DRAPERY WORKER) COPY(IES) SENT TO: [facility] Comment: ?[facility] ?COPY TO ACCOUNT ?[id number] [facility] [address] ?[place] [address] 08/16/2018 11:3 8 AM DRAPERY WORKER 08/16/2018 11:39 AM DRAPERY WORKER Eliana Quevedo MD LAB BLOOD ORDERABLE S Final Result Performing Organization Address [facility] Co de Phone Number [facility] * Hepatic function panel (08/16/2018 11:38 AM DRAPERY WORKER) Protein, Total 7.9 6.4 - 8.4 g/dL [facility] [place] Albumin 4.9 3.6 - 5.1 g/dL [facility] [place] Globulin 3.0 2.2 - 4.0 g/dL (calc) [facility] [place] Alb/glob ratio 1.6 0.9 - 2.3 (calc) [facility] [place] Bilirubin, total 0.6 0.2 - 1.2 mg/dL [facility] [place] Bilirubin, direct 0.1 < OR = 0.2 mg/dL [facility] [place] Bilirubin, indirect 0.5 0.2 - 1.2 mg/dL (calc) [facility] [place] Alk phos 70 40 - 115 U/L [facility] [place] AST 18 10 - 40 U/L [facility] [place] ALT (SGPT) 25 9 - 46 U/L [facility] [place] Blood specimen (specimen) 08/16/2018 11:38 AM DRAPERY WORKER 08/16/2018 11:39 AM DRAPERY WORKER Narrative Resulting Agency Comment Performing Organization Information: ?Site ID: [place] ?Name: [facility] ?Address: [address] [phone] ?Director: Christopher Salas D.O., MPH us Eliana Quevedo MD LAB BLOOD ORDERABLE S Final Result [facility] [place] * CBC with auto differential (08/16/2018 11:38 AM DRAPERY WORKER) WBC 7.2 3.8 - 10.8 Thousand/u L [facility] [place] RBC, POC 4.47 4.20 - 5.80 Million/uL [facility] [place] Hgb 13.7 13.2 - 17.1 g/dL [facility] [place] Hct 40.6 38.5 - 50.0 % [facility] [place] MCV 90.8 80.0 - 100.0 fL [facility] [place] MCH 30.6 27.0 - 33.0 pg [facility] [place] MCHC 33.7 32.0 - 36.0 g/dL [facility] [place] Rdw 12.1 11.0 - 15.0 % [facility] [place] Platelets 265 140 - 400 Thousand/u L [facility] [place] MPV 11.2 7.5 - 12.5 fL [facility] [place] Neutrophils, abs 3,636 1,500 - 7,800 cells/uL [facility] [place] Lymphocytes, abs 2,988 850 - 3,900 cells/uL [facility] [place] Monocyte abs 454 200 - 950 cells/uL [facility] [place] Eosinophils, abs 72 15 - 500 cells/uL [facility] [place] Basophils, abs 50 0 - 200 cells/uL [facility] [place] Neutrophils 50.5 % [facility] [place] Lymphocyte pct 41.5 % [facility] [place] Monocytes 6.3 % [facility] [place] Eosinophils 1.0 % [facility] [place] Basophils 0.7 % [facility] [place] Blood specimen (specimen) 08/16/2018 11:38 AM DRAPERY WORKER 08/16/2018 11:39 AM DRAPERY WORKER Narrative Resulting Agency Comment Performing Organization Information: ?Site ID: [place] ?Name: [facility] ?Address: [address] [address] ?Director: Christopher Salas D.O., MPH us Eliana Quevedo MD LAB BLOOD ORDERABLE S Final Result [facility] [place] [address] documented in this encounter Visit Diagnoses Diagnosis Crohn's disease of small and large intestines with complication (HCC)- Primary High risk medications (not anticoagulants) long-term use Encounter for long-term (current) use of other medications documented in this encounter Care Teams Head Pastry Chef Relationship Specialty Start Date End Date Trenton Bess MD PCP - General 07/29/18 01/22/19 documented as of this encounter
--- OUTSIDE RECORDS SUMMARY | 2024-07-09 05:26 | XMS_ITS | Encounter Summary ---
Author Organization [facility] Address [address] [place] [address] Phone Care Team Providers Care Credit Operations Processor Name Role Phone Trenton Bess MD Primary Care Provider [phone] Encounter Details Date Type Department Care Team (Late st Contact Info) Description 06/20/2018 Documentation [facility] Gastroenterology [facility] 8th [place] [address] [place] [address] Shanika Braun Social History Tobacco Use Types Packs/Day Years Used Date Smoking Tobacco: Never Smokeless Tobacco: Never Alcohol Use Standard Drinks/Week Comments No 0 (1 standard drink = 0.6 oz pur e alcohol) Sex and Gender Information Value Date Recorded Sex Assigned at Not on file Legal Sex Male 11:11 PM PATHOLOGICAL TECHNICIAN Gender Identity Not on file Sexual Orientation Not on file documented as of this encounter Progress Notes * Shanika Braun - 06/20/2018 11:18 AM CST Mailed reminder packet to pt's home address for Colon OLOGICAL TECHNICIAN documented in this encounter Plan of Treatment Not on file documented as of this encounter Visit Diagnoses Not on filedocumented in this encounter Care Teams Credit Operations Processor Relationship Specialty Start Date End Date Trenton Bess MD PCP - General 04/30/17 07/24/18 documented as of this encounter
--- OUTSIDE RECORDS SUMMARY | 2024-07-09 05:26 | XMS_ITS | Encounter Summary ---
Author Organization [facility] Address [address] [place] [address] Phone Care Team Providers Care Branch Service Specialist Name Role Phone Trentno Bess MD Primary Care Provider [phone] Encounter Details Date Type Department Care Team (Late st Contact Info) Description 07/30/2018 Orders Only [facility] G[facility] 8th [place] [address] [place] [phone] Padma Mendoza, RN Crohn's disease of both small and large intestine with complication (CMS/[facility]) Social History Tobacco Use Types Packs/Day Years Used Date Smoking Tobacco: Never Smokeless Tobacco: Never Alcohol Use Standard Drinks/Week Comments No 0 (1 standard drink = 0.6 oz pur e alcohol) Sex and Gender Information Value Date Recorded Sex Assigned at Not on file Legal Sex Male 11:11 PM MAINFRAME SYSTEMS ENGINEER Gender Identity Not on file Sexual Orientation Not on file documented as of this encounter Ordered Prescriptions Prescription Sig Dispense Quantity Refills Last Filled Start Date End Date adalimumab 40 mg/0.4 mL pen injector kit Inject 1 pen under the skin every 14 (fourteen) days. ,safety labs required every 3 months for med refill, deu next 09/2018 2 kit 5 07/30/2018 9 methotrexate 2.5 mg tabletIndications: Crohn's diseas of small and large intestines with complication Take 10 Tablets by mouth weekly all at once on the same day (Safety Labs required every 3 months for med refills due next 09/2018) 40 tablet 2 07/30/2018 9 documented in this encounter Plan of Treatment Not on file documented as of this encounter Visit Diagnoses Diagnosis Crohn's disease of both small and large intestine with complication (HCC) documented in this encounter Discontinued Medications Medication Sig Discontinue Reason Start Date End Da te ADALIMUMAB SUBQ Inject 40 mg under the skin once every 2 weeks. Duplicate order 02/09/2014 07/30/2018 methotrexate 2.5 mg tabletIndications:Crohn's diseas of small and large intestines with complication Take 10 Tablets by mouth weekly all at once on the same day (Safety Labs due every 3 months 05/19) Reorder 02/22/2018 07/30/2018 documented as of this encounter Care Teams Branch Service Specialist Relationship Specialty Start Date End Date Trenton Bess MD PCP - General 07/29/18 01/22/19 documented as of this encounter
--- OUTSIDE RECORDS SUMMARY | 2024-07-09 05:26 | XMS_ITS | Encounter Summary ---
Author Organization [facility] Address [address] [place] [address] Phone Care Team Providers Care Ore Bridge Operator Name Role Phone Trenton Bess MD Primary Care Provider Encounter Details Date Type Department Care Team (Late st Contact Info) Description 07/05/2018 Telephone [facility] 8th [place] [address] [place] [phone] Eliana Quevedo MD [address] [place] [address] Social History Tobacco Use Types Packs/Day Years Used Date Smoking Tobacco: Never Smokeless Tobacco: Never Alcohol Use Standard Drinks/Week Comments No 0 (1 standard drink = 0.6 oz pur e alcohol) Sex and Gender Information Value Date Recorded Sex Assigned at Not on file Legal Sex Male 11:11 PM FILTRATION PLANT MECHANIC Gender Identity Not on file Sexual Orientation Not on file documented as of this encounter Miscellaneous Notes * Telephone Encounter - Mona Esqueda MA - 07/08/2018 2:23 PM CST S/w pt and informed of below. Pt states the prednisone made his sore throat go away for about a week, then it returned. Pt to talk to PCP about seeing ENT. RATION PLANT MECHANIC * Telephone Encounter - Veronica Morse NP - 07/08/2018 9:01 AM CST If this is still going on from , we should try to get him into see ENT RATION PLANT MECHANIC * Telephone Encounter - Veronica Morse NP - 07/05/2018 4:23 PM CST Is this the same sore throat he was on prednisone for in mid-June? RATION PLANT MECHANIC * Telephone Encounter - Mona Esqueda MA - 07/05/2018 4:03 PM CST Pt LMOR stating his PCP asked him to call and see if his symptoms were due to his Crohn's. Pt c/o inflamed tonsils, white streaks on tonsils, and throat pain. Please advise. RATION PLANT MECHANIC documented in this encounter Plan of Treatment Not on file documented as of this encounter Visit Diagnoses Not on filedocumented in this encounter Care Teams Ore Bridge Operator Relationship Specialty Start Date End Date Trenton Bess MD PCP - General 04/30/17 07/24/18 documented as of this encounter
--- OUTSIDE RECORDS SUMMARY | 2024-07-09 05:26 | XMS_ITS | Encounter Summary ---
Author Organization [facility] Address [address] [place] [address] Phone Care Team Providers Care Stone Mason Name Role Phone Trenton Bess MD Primary Care Provider [phone] Encounter Details Date Type Department Care Team (Late st Contact Info) Description 01/08/2019 Orders Only [facility] Gastroenterology [address] [facility] 8th [place] [address] [place] [address] Padma Mendoza RN Social History Tobacco Use Types Packs/Day Years Used Date Smoking Tobacco: Never Smokeless Tobacco: Never Alcohol Use Standard Drinks/Week Comments No 0 (1 standard drink = 0.6 oz pur e alcohol) Sex and Gender Information Value Date Recorded Sex Assigned at Not on file Legal Sex Male 11:11 PM QUARTER DOPER Gender Identity Not on file Sexual Orientation Not on file documented as of this encounter Plan of Treatment Not on file documented as of this encounter Visit Diagnoses Not on filedocumented in this encounter Care Teams Stone Mason Relationship Specialty Start Date End Date Trenton Bess MD PCP - General 07/29/18 01/22/19 documented as of this encounter
--- OUTSIDE RECORDS SUMMARY | 2024-07-09 05:26 | XMS_ITS | Encounter Summary ---
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 Office Visit [facility] Otolaryngology [facility] [address] [place] [address] [phone] Travon Cazares MD [address] [place] [address] Chronic pharyngitis (Primary Dx) Social History Tobacco Use Types Packs/Day Years Used Date Smoking Tobacco: Never Smokeless Tobacco: Never Alcohol Use Standard Drinks/Week Comments No 0 (1 standard drink = 0.6 oz pur e alcohol) Sex and Gender Information Value Date Recorded Sex Assigned at Not on file Legal 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 Gender Identity Not on file Sexual Orientation Not on file documented as of this encounter Last Filed Vital Signs Vital Sign Reading Time Taken Comments Blood Pressure 132/70 07/25/2018 10:55 AM MECHANIC WELDER TRUCK DRIVER Pulse - - Temperature - - Respiratory Rate - - Oxygen Saturation - - Inhaled Oxygen Concentration - - Weight 81.2 kg (179 lb) 07/25/2018 10:55 AM MECHANIC WELDER TRUCK DRIVER Height 170.2 cm (5' 7 ) 07/25/2018 10:55 AM 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 Patient is a 27 y.o. male who is being seen in consultation at the requestof lEiana Beth* for the evaluation of pharyngitis. Patient states that in June of 2018 he developed swollen tonsils and painful throat. He was seen in urgent care center on several oc casions. Each time he was placed on antibiotics. In addition reportedly strep and mono tests were negative. After several courses of antibiotics and prednisone he had some improvement but not complete resolution. Fungal infection of the tongue was next diagnosed he was placed on fungal medication. He has had 2 more episodes of tonsil swelling and pain which resulted in visits to the emergency department. The patient does admit to loud snoring but minimal apnea. Of note he does have Crohn's and wonders if his throat swelling and pain is related to the Crohn's disorder. The patient denies fevers, chills, shortness of breath, chest pain, nausea, vomiting, diarrhea, inability to lie flat, dysphagia, odynophagia, hemoptysis, hematemesis, changes in vision, changes in voice quality, otalgia, otorrhea, vertiginous symptoms, focal deficits, or other concerning symptoms. Past Medical History. Past Medical History: Diagnosis Date ??? Allergic rhinitis ??? Anemia ??? Crohn's disease ([facility]) ??? GERD (gastroesophageal reflux disease) ??? Iritis Past Surgical History. Past Surgical History: Procedure Laterality Date ??? COLONOSCOPY 2017 multiple ??? OTHER SURGICAL HISTORY 2018 ileocecal resection ??? VASECTOMY 2018 Current Medications. has a current medication list which includes the following prescription(s): adalimumab, balsalazide (COLAZAL), calcium carbonate (OS-ANA), cannabidiol (cbd) extract, cholecalciferol (VITAMIN D-3), colestipol (COLESTID), ergocalciferol (VITAMIN D), folic acid (FOLVITE), hyoscyamine (LEVSIN), methotrexate, multivitamin, omega 9-pkm-kgs-fish oil, and UNABLE TO FIND. Allergies. Allergies Allergen Reactions ??? Flagyl [Metronidazole] Other (See comments) Neuropathy Family History family history includes Hypertension in his father and mother; Kidney failure in hismother; Ulcerative colitis in his mother's sister. Social History History Smoking Status ??? Never Smoker Smokeless Tobacco ??? Never Used History Alcohol Use No reports that he uses drugs, including Marijuana. Review of Systems. 12-point review of systems was performed and is negative other than that noted in the history of present illness. Vital Signs. Vitals BP 132/70 Ht 170.2 cm (5' 7 ) Wt 81.2 kg (179 lb) BMI 28.04 kg/m?? Physical Exam. Well-developed, well-nourished. Appropriate, comfortable, and in no apparent distress. Face: On external examination there is no obvious asymmetry or scars. On palpation there is no tenderness over maxillary sinuses or masses within the salivary glands. Cranial nerves V and VII are intact through all distributions. Eyes: PERRL, EOMI, the conjunctiva are not injected and sclera is non-icteric. Ears: On external exam, there is no obvious lesions or asymmetry. The EACs are bilaterally without cerumen or lesions. The TMs are in the neutral position and are mobile to pneumatic otoscopy bilaterally. There are no middle ear masses or fluid noted. Hearing is grossly intact bilaterally. Nose: On external exam there are neither lesions nor asymmetry of the nasal tip/ dorsum. On anterior rhinoscopy of the nose, there is no pus, polyps, masses, or discharge. No deformities were observed. Oral Cavity/Oropharynx: The mucosa of the lips, gums, hard and soft palate, posterior pharyngeal wall, tongue, floor of mouth, and buccal region are without masses or lesions and are normally hydrated. Good dentition. Tongue protrudes midline. Tonsils are 2+ enlarged and normal appearing. Neck: There is no asymmetry or masses. Trachea is midline. There is no enlargement of the thyroid or palpable thyroid nodules. There is no palpable lymphadenopathy along the jugulodiagastric, submental, or posterior cervical chains. No TMJ tenderness. Respiratory: No audible wheeze, unlabored respirations. Abdomen: Nondistended. Cranial Nerves: Cranial nerve???s II-XII are grossly intact. Exam is non-focal. No cyanosis, clubbing or edema. The patient's physical examination findings were thoroughly discussed with the patient. Problem List: Patient Active Problem List Diagnosis ??? Crohn's disease of both small and large intestine (CMS/HCC) ??? History of high risk medication treatment ??? Iritis ??? Osteoporosis ??? Crohn's disease with complication (CMS/HCC) ??? Acute postoperative pain ??? Generalized abdominal pain ??? Diarrhea due to malabsorption ??? Chronic pharyngitis Assessment/Recommendations. Patient is a 27 y.o. male who presents for the evaluation of pharyngitis. I saw no significant abnormal findings today. His tonsils are normal in appearance. He is not a candidate for tonsillectomy. I provided reassurance. I recommended oral tonsil saline lavage. I instructed him in the proper technique for irrigation of the tonsils. I would be happy to see the patientback in follow-up if symptoms recur. 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 1/2 to 1 tab as needed for diarrhea 02/11/2018 07/25/2018 ondansetron (ZOFRAN) 8 mg tablet TAKE 1 TABLET 3 TIMES DAILY starting the day before taking the Methotrexate, the day of and the day after and thenonly as needed 09/11/2017 07/25/2018 documented as of this encounter Historical Medications * This list may reflect changes made after this encounter. CANNABIDIOL, CBD, EXTRACT ORAL Take by mouth. 04/03/2019 added in this encounter Care Teams Gear Lapping Machine Operator Relationship Specialty Start Date End Date Lanre Parekh DO [address] [place] [id number] PCP - General Family Medicine 07/25/18 07/28/18 documented as of this encounter
--- OUTSIDE RECORDS SUMMARY | 2024-07-09 05:26 | XMS_ITS | Encounter Summary ---
Author Organization [facility] Address [address] [place] [address] Phone Care Team Providers Care Shallot Packer Name Role Phone Trenton Bess MD Primary Care Provider [phone] Encounter Details Date Type Department Care Team (Late st Contact Info) Description 10/17/2018 Orders Only [facility] Gastroenterology [facility] 8th [place] [address] [place] [phone] Padma Mendoza, JOSH Crohn's disease of both small and large intestine with intestinal obstruction (CMS/HCC) (Primary Dx); Diarrhea, unspecified type Social History Tobacco Use Types Packs/Day Years Used Date Smoking Tobacco: Never Smokeless Tobacco: Never Alcohol Use Standard Drinks/Week Comments No 0 (1 standard drink = 0.6 oz pur e alcohol) Sex and Gender Information Value Date Recorded Sex Assigned at Not on file 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 Gender Identity Not on file Sexual Orientation Not on file documented as of this encounter Plan of Treatment Not on file documented as of this encounter Results * Leukocytes, fecal (10/18/2018 12:00 PM CDT) WBC, fecal 0 0 - 0 /LPF [facility] Stool 10/18/2018 12:0 0 PM CDT 10/18/2018 1:20 PM CDT Narrative [facility] - 10/18/2018 1:27 PM CDT Eliana Quevedo MD LAB BODY FLUIDS AND STOOLS ORDERABLES Final Result Performing Organization Address [facility] Co de Phone Number [facility] [place] [address] * Ova and parasite examination Stool (10/18/2018 9:30 AM CDT) Report Final Report: No parasites detected. Note: treatment with antibiotics; e.g., Clindamycin, Metronidazole, Tetracycline, and Trimethoprim-s ulfa can adversely affect the detection of ova and parasites. [facility] Stool 10/18/2018 9:30 AM CDT 10/18/2018 11:10 AM CDT Narrative [facility] - 10/21/2018 2:54 PM CDT Received in PVA and Formalin. Eliana Quevedo MD LAB MICROBIOLOGY - GENERAL ORDERABLES Final Result Performing Organization Address [facility] de Phone Number [facility] [place] [address] * Stool culture Stool Rectum (10/18/2018 9:30 AM CDT) Direct Specimen Exam Shiga Toxin Testing: Antigen detection assay for Shiga-toxin NEGATIVE for Shiga Toxin 1 and Shiga Toxin 2. [facility] Report Final Report: No growth of enteric bacterial pathogens [facility] Stool (Rectum) 10/18/2018 9: 30 AM CDT 10/18/2018 11:14 AM CDT Narrative [facility] - 10/22/2018 10:30 AM CDT Testing performed by [facility] ([phone]). Routine stool cultures include procedures to detect Salmonella, Shigella, Edwardsiella, Aeromonas, Pleisiomonas, Campylobacter, Yersinia, E. coli O157, and Shiga-like toxins. ?? Vibrio is cultured only upon special request. ??If Vibrio is suspected, please call the laboratory at [phone]. Interpretive data was last updated November 06, 2016. Eliana Quevedo MD LAB MICROBIOLOGY - GENERAL ORDERABLES Final Result Performing Organization Address City/[facility] Co de Phone Number [facility] [place] [address] * Clostridium difficile assay Stool (10/18/2018 9:30 AM CDT) Report Final Report: Negative for: Clostridium difficile toxin. [facility] Stool 10/18/2018 9:30 AM CDT 10/18/2018 11:13 AM CDT Narrative [facility] - 10/19/2018 5:03 AM CDT Eliana Quevedo MD LAB MICROBIOLOGY - GENERAL ORDERABLES Final Result Performing Organization Address [facility] de Phone Number [facility] [place] [address] documented in this encounter Visit Diagnoses Diagnosis Crohn's disease of both small and large intestine with intestinal obstruction (HCC)- Primary Diarrhea, unspecified type Crohn's disease of both small and large intestine with intestinal obstruction (HCC) Diarrhea, unspecified type documented in this encounter Care Teams Shallot Packer Relationship Specialty Start Date End Date Trenton Bess MD PCP - General 07/29/18 01/22/19 documented as of this encounter
--- OUTSIDE RECORDS SUMMARY | 2024-07-09 05:26 | XMS_ITS | Encounter Summary ---
Author Organization [facility] Address [address] [place] [address] Phone Care Team Providers Care Patroller Name Role Phone Trenton Bess MD Primary Care Provider [phone] Encounter Details Date Type Department Care Team (Late st Contact Info) Description 05/20/2018 Telephone [facility] [address] [facility] Medical Office Building [address] [place] [address] Fernando Mckeon MD [address] [address] Social History Tobacco Use Types Packs/Day Years Used Date Smoking Tobacco: Never Smokeless Tobacco: Never Alcohol Use Standard Drinks/Week Comments No 0 (1 standard drink = 0.6 oz pur e alcohol) Sex and Gender Information Value Date Recorded Sex Assigned at Not on file 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 Fernando Mckeon MD P [facility] Bone Clinical Pool ?We will switch his monthly 50K ergocalciferol to every two weeks. Please send script thanks A script was sent electronically to his [facility] pharmacy. T BASIC EDUCATION TEACHER documented in this encounter Plan of Treatment Not on file documented as of this encounter Visit Diagnoses Diagnosis Osteoporosis, unspecified osteoporosis type, unspecified pathological fracture presence documented in this encounter Discontinued Medications Medication Sig Discontinue Reason Start Date End Da te ergocalciferol (VITAMIN D) 50,000 unit capsuleIndications:Osteop orosis, unspecified osteoporosis type, unspecified pathological fracture presence Take 1 capsule (50,000 Units total) by mouth every 30 (thirty) days. Reorder 01/15/2018 05/20/2018 documented as of this encounter Care Teams Patroller Relationship Specialty Start Date End Date Trenton Bess MD PCP - General 04/30/17 07/24/18 documented as of this encounter
--- OUTSIDE RECORDS SUMMARY | 2024-07-09 05:26 | XMS_ITS | Encounter Summary ---
Author Organization Formerly [facility] Address [address] [place] [address] Care Team Providers Care Gill Tender Name Role Phone Trenton Bess MD Primary Care Provider [phone] Reason for Referral * Diagnostic Imaging (Routine) - Closed Specialty Diagnoses / Procedures Referred By Renay rivero Referred To Contact Radiology Diagnoses Crohn's disease of both small and large intestine with complication (HCC) Procedures MRI Abdomen Enterography W WO Eliana Monreal MD Phone: tel: fax: [place] [address] [address] [phone] Referral ID Status Reason Start Date Expiration Date Visits Re quested Visits Authorized [id number] Closed 05/16/2018 06/14/2018 1 1 OSITION PROFESSOR Reason for Visit * Diagnostic Imaging (Routine) - Closed Specialty Diagnoses / Procedures Referred By Renay rivero Referred To Contact Radiology Diagnoses Crohn's disease of both small and large intestine with complication (HCC) Procedures MRI Abdomen Enterography W WO Contrast Eliana Quevedo MD Phone: tel: fax: [place] [address] [address] [phone] Referral ID Status Reason Start Date Expiration Date Visits Re quested Visits Authorized [id number] Closed 05/16/2018 06/14/2018 1 1 Encounter Details Date Type Department Care Team (Late st Contact Info) Description 05/24/2018 11:04 AM COMPOSITION PROFESSOR - 05/24/2018 11:59 PM COMPOSITION PROFESSOR Hospital Encounter [facility] Imaging [id number] [id number] Eliana Quevedo MD [address] [place] [address] Crohn's disease of both small and large intestine with complication (CMS/HCC) Discharge Disposition: Discharge to home or self care Social History Tobacco Use Types Packs/Day Years Used Date Smoking Tobacco: Never Smokeless Tobacco: Never Alcohol Use Standard Drinks/Week Comments No 0 (1 standard drink = 0.6 oz pur e alcohol) Sex and Gender Information Value Date Recorded Sex Assigned at Not on file Legal Sex Male 11:11 PM COMPOSITION PROFESSOR Gender Identity Not on file Sexual Orientation Not on file documented as of this encounter Medications at Time of Discharge multivitamin capsuleIndications :Vitamin Deficiency Prevention Take 1 capsule by mouth every morning hyoscyamine (LEVSIN) 0.125 mg tabletIndications: Crohn's Disease Take 1 tablet (0.125 mg total) by mouth every 6 (six) hours as needed for cramping or diarrhea. 120 tablet 1 03/01/2018 9 ADALIMUMAB SUBQ Inject 40 mg under the skin once every 2 weeks. 02/09/2014 9 balsalazide (COLAZAL) 750 mg capsuleIndications :Ulcerative Colitis TAKE 3 CAPSULES 3 TIMES DAILY.( clarified script) 02/01/2017 9 calcium carbonate (OS-ANA) 1,500 mg (600 mg of elemental calcium) tablet every morning. 11/16/2017 9 cholecalciferol (VITAMIN D-3) 1,000 unit Take [...] PO daily 90 tablet 3 04/16/2018 9 loperamide (IMODIUM) 2 mg capsuleIndications :Diarrhea, unspecified type Take 1 capsule (2 mg total) by mouth 4 (four) times a day as needed for diarrhea. 1/2 to 1 tab as needed for diarrhea 60 capsule 11 02/11/2018 9 mesalamine (LIALDA) 1.2 gram EC tabletIndications: Crohn's Disease Take two tablets by mouth daily with food 60 tablet 02/06/2018 8 methotrexate 2.5 mg tabletIndications: Crohn's diseas of small and large intestines with complication Take 10 Tablets by mouth weekly all at once on the same day (Safety Labs due every 3 months 05/19) 40 tablet 2 02/22/2018 9 neomycin (MYCIFRADIN) 500 mg tablet Take two tablets at 1pm, 2pm, and 10pm the day before surgery. 6 tablet 12/21/2017 8 omega 4-hzr-ocr-fish oil 300-1,000 mg capsule 1 capsule every morning. 11/16/2017 9 ondansetron (ZOFRAN) 8 mg tablet TAKE 1 TABLET 3 TIMES DAILY starting the day before taking the Methotrexate, the day of and the day after and thenonly as needed 09/11/2017 9 documented as of this encounter Discharge Disposition Disposition Code Departure Means Destination Discharge to home or self care documented in this encounter Plan of Treatment Not on file documented as of this encounter Procedures Procedure Name Priority Date/Time Associated Diagnosis Comments MRI ABDOMENT ENTEROGRAPHY W WO CONTRAST Schedule Routine, Read Routine (OP Routine) 05/24/2018 12:46 PM COMPOSITION PROFESSOR Crohn's disease of both small and large intestine with complication (CMS/HCC) POC ISTAT Routine 05/24/2018 11:55 AM COMPOSITION PROFESSOR documented in this encounter Results * MRI Abdomen Enterography W WO Contrast (05/24/2018 12:46 PM COMPOSITION PROFESSOR) Anatomical Region Laterality Modality Body N/A Magnetic Resonan ce 05/24/2018 1:13 PM COMPOSITION PROFESSOR Impressions 05/24/2018 1:14 PM COMPOSITION PROFESSOR 1. ??Stable postsurgical changes of ileocolonic resection and primary anastomosis with improving perianastomotic inflammation. ??On today's examination, there is 1.5 cm of distal neoterminal ileum demonstrating mild active inflammation. Otherwise, no fistulization, stenosis or fluid collections are seen. Dictated by: Nicholas Lucio M.D. Electronically signed by: Cristy Curran M.D. Narrative 05/24/2018 1:14 PM COMPOSITION PROFESSOR EXAMINATION: MAGNETIC RESONANCE IMAGING OF THE ABDOMEN WITH AND WITHOUT CONTRAST HISTORY: Patient with Crohn's disease and fistula to the sigmoid colon status post ileocolonic resection with takedown of ileosigmoid fistula. ??Evaluate for active disease. TECHNIQUE: Magnetic resonance imaging of the abdomen was performed prior to and following the uneventful administration of intravenous Gadolinium contrast. Oral Volumen and 1 mg of intravenous glucagon was administered prior to the examination. Protocol: MR Enterography Creatinine: 1 mg/dL Estimated GFR: Greater than 60 ml/min/1.73 meters squared Contrast: Dotarem 16 mL COMPARISON: Prior CT dated 02/06/2018. FINDINGS: Bowel: Redemonstrated are postsurgical changes of ileocecectomy with primary anastomosis in the right lower quadrant. ??There is 1.5 cm length of the terminal ileum in the right hemiabdomen that demonstrates mild fat stranding with enhancement of the neoterminal ileum best seen on series 100, image 90 likely representing mild active inflammation. ??There are no other sites of active inflammation identified. ??There are no areas of fistula identified. Liver/Bile Ducts: No focal suspicious liver lesions are seen. ??There is no intrahepatic or extrahepatic biliary ductal dilatation. Gallbladder: Normal. Pancreas: Normal Spleen: Normal Adrenals: Normal Kidneys: Normal Bladder: Normal Other Findings: There is a small hiatal hernia, unchanged. Postsurgical changes are seen along the anterior abdominal wall. Visualized lung bases are clear. ??No enhancing bone marrow lesions are seen. ??There is no lymphadenopathy or ascites. Procedure Note Cristy Curran MD PhD - 05/24/2018 EXAMINATION: MAGNETIC RESONANCE IMAGING OF THE ABDOMEN WITH AND WITHOUT CONTRAST HISTORY: Patient with Crohn's disease and fistula to the sigmoid colon status post ileocolonic resection with takedown of ileosigmoid fistula. Evaluate for active disease. TECHNIQUE: Magnetic resonance imaging of the abdomen was performed prior to and following the uneventful administration of intravenous Gadolinium contrast. Oral Volumen and 1 mg of intravenous glucagon was administered prior to the examination. Protocol: MR Enterography Creatinine: 1 mg/dL Estimated GFR: Greater than 60 ml/min/1.73 meters squared Contrast: Dotarem 16 mL COMPARISON: Prior CT dated 02/06/2018. FINDINGS: Bowel: Redemonstrated are postsurgical changes of ileocecectomy with primary anastomosis in the right lower quadrant. There is 1.5 cm length of the terminal ileum in the right hemiabdomen that demonstrates mild fat stranding with enhancement of the neoterminal ileum best seen on series 100, image 90 likely representing mild active inflammation. There are no other sites of active inflammation identified. There are no areas of fistula identified. Liver/Bile Ducts: No focal suspicious liver lesions are seen. There is no intrahepatic or extrahepatic biliary ductal dilatation. Gallbladder: Normal. Pancreas: Normal Spleen: Normal Adrenals: Normal Kidneys: Normal Bladder: Normal Other Findings: There is a small hiatal hernia, unchanged. Postsurgical changes are seen along the anterior abdominal wall. Visualized lung bases are clear. No enhancing bone marrow lesions are seen. There is no lymphadenopathy or ascites. IMPRESSION: 1. Stable postsurgical changes of ileocolonic resection and primary anastomosis with improving perianastomotic inflammation. On today's examination, there is 1.5 cm of distal neoterminal ileum demonstrating mild active inflammation. Otherwise, no fistulization, stenosis or fluid collections are seen. Dictated by: Nicholas Lucio M.D. Electronically signed by: Cristy Curran M.D. Eliana Quevedo MD IMG MRI PROCEDURES Final Result * POC ISTAT (05/24/2018 11:55 AM COMPOSITION PROFESSOR) Creatinine, POC, bld 1.0 0.6 - 1.3 mg/dL [facility] Comment: Interpretive data Creatinine <1.5 mg/dL and stable receive IV contrast. Creatinine 1.5-1.9 mg/dL and stable use Visipaque IV contrast. Current interpretive data last reviewed 2015. POC Device Number [id number] RUBINAGEORGIANA ZAVALAW[facility] POC Performer [id number] [facility] Blood specimen (specimen) 05/24/2018 11:55 AM COMPOSITION PROFESSOR 05/24/2018 11:55 AM COMPOSITION PROFESSOR Narrative [facility] - 05/24/2018 12:07 PM COMPOSITION PROFESSOR us Eliana Quevedo MD LAB BLOOD ORDERABLE S Final Result [facility] [id number] [facility]. Department [place] [address] documented in this encounter Visit Diagnoses Diagnosis Crohn's disease of both small and large intestine with complication (HCC) documented in this encounter Administered Medications Inactive Administered Medications - up to 3 most recent administrations Medication Order MAR Action Action Date Dose Rate Site gadoterate meglumine (DOTAREM) 0.5 mmol/mL injection 16.16 mL 16.16 mL (0.1 mmol/kg ? 80.8 kg), intravenous, Once in imaging, contrast, Starting on Sun05/24/18 at 1154, For 1 dose, Imaging Protocol Orders Given 05/24/2018 12:45 PM COMPOSITION PROFESSOR 16 mL glucagon injection 1 mg 1 mg, intravenous, Once in imaging, low blood sugar, Starting on Sun05/24/18 at 1154, For 1 dose, Imaging Protocol Orders Given 05/24/2018 12:01 PM COMPOSITION PROFESSOR 1 mg documented in this encounter Orders Medications Ordered That Nilo ht Not Have Been Administered Count Last Ordered Date First Ordered Date sodium chloride 0.9% flush 50 mL 1 05/24/20 18 documented in this encounter Care Teams Gill Tender Relationship Specialty Start Date End Date Trenton Bess MD PCP - General 04/30/17 07/24/18 documented as of this encounter
--- OUTSIDE RECORDS SUMMARY | 2024-07-09 05:26 | XMS_ITS | Encounter Summary ---
Author Organization [facility] Address [address] [place] [address] Phone Care Team Providers Care Berry Planter Name Role Phone Lanre Parekh Primary Care Provide r Trenton Bess MD Primary Care Provider [phone] Encounter Details Date Type Department Care Team (Late st Contact Info) Description 07/25/2018 8:45 AM INSIDE SALES ACCOUNT EXECUTIVE Office Visit [facility] Gastroenterology [address] Advanced [facility] [address]th [place] [address] [place] [address] Eliana Quevedo MD [address] [place] [address] Crohn's disease of small and large intestines with complication (CMS/HCC) (Primary Dx); High risk medications (not anticoagulants) long-term use; Crohn's disease of both small and large intestine with intestinal obstruction (CMS/HCC); Diarrhea due to malabsorption Social History Tobacco Use Types Packs/Day Years Used Date Smoking Tobacco: Never Smokeless Tobacco: Never Alcohol Use Standard Drinks/Week Comments No 0 (1 standard drink = 0.6 oz pur e alcohol) Sex and Gender Information Value Date Recorded Sex Assigned at Not on file Legal Sex Male 11:11 PM INSIDE SALES ACCOUNT EXECUTIVE Gender Identity Not on file Sexual Orientation Not on file documented as of this encounter Last Filed Vital Signs Vital Sign Reading Time Taken Comments Blood Pressure 148/90 07/25/2018 8:29 AM INSIDE SALES ACCOUNT EXECUTIVE Pulse 75 07/25/2018 8:29 AM INSIDE SALES ACCOUNT EXECUTIVE Temperature 37.1 ??C (98.7 ??F) 07/25/2018 8:29 AM CS T Respiratory Rate - - Oxygen Saturation - - Inhaled Oxygen Concentration - - Weight 81.2 kg (179 lb) 07/25/2018 8:29 AM INSIDE SALES ACCOUNT EXECUTIVE Height 170.2 cm (5' 7 ) 07/25/2018 8:29 AM INSIDE SALES ACCOUNT EXECUTIVE Body Mass Index 28.04 07/25/2018 8:29 AM INSIDE SALES ACCOUNT EXECUTIVE documented in this encounter Patient Instructions * Patient Instructions* Padma Mendoza RN - 07/25/2018 8:45 AM INSIDE SALES ACCOUNT EXECUTIVE Abs today CBC LFT's And TB Spot order for [facility] Send patient to Dr. Glass ENT clinic at [facility] 10:15 am [address] follow up in office in 6 months colonoscopy as scheduled DE SALES ACCOUNT EXECUTIVE DE SALES ACCOUNT EXECUTIVE documented in this encounter Progress Notes * Justus Garcia MD - 07/25/2018 12:00 AM CST PATIENT NAME: NIC TERAN : 1990 NELLI: 07/25/2018 REASON FOR VISIT: Follow-up for stricturing Crohn's disease, currently on Humira, methotrexate and Lialda. CURRENT MEDICATIONS: 1. Vitamin D 50,000 units every 2 weeks. 2. Folic acid 1 mg daily. 3. Levsin 0.25 mg by mouth every 6 hours as needed. 4. Methotrexate 2.5 mg, take 10 tablets weekly. 5. Colestid 1 g tablet by mouth as needed. 6. Humira 40 mg every 2 weeks. 7. CBD oral. PROBLEM LIST: 1. ileocolonic perforating and fistulizing Crohn's diseasedx 2004 and s/p and ileocecectomy in 12/2017 HISTORY OF PRESENT ILLNESS: Nic Teran is a very pleasant 27-year-old man with a past medical history of ileocolonic Crohn's disease dating back to about 2004, who is currently maintained on methotrexate and Humira, who presents today for follow-up of his Crohn's disease. He was last seen in March, which was around 2 months after an uncomplicated ileocecectomy. At that time he was taking Colestid, Imodium and Levsinand reporting that he was having about 2 to 3 solid stools a day. Though he had some increased painimmediately after his surgery, he reported his pain was much improved when he was seen in clinic. He did report some mild anticipation so a Humira level was checked which was 9.6, and no changes were made. He did have an MRE subsequently which [...] seen last that was also completed in May, and he was scheduled for a colonoscopy which will be completed next week. Since June, he has reported increased throat pain with some mild change to his voice. He had received multiple courses of antibiotics for unclear reasons without any imp rovement, as well as multiple strep throat swabs that were negative. He was placed on nystatin which he said helped a little bit, and also given prednisone which he said helped quite a bit. He is waiting to see ENT and started CBD oil in the interim that he says has totally resolved his throat pain. Regarding his stooling, he has had more solid stools recently, about 2 a day. If he does not take his Colestid, he does note increased burning as well as some small volume bright red blood per rectum. He is no longer taking Imodium. He denies any fevers, chills, nausea, vomiting, weight loss. PHYSICAL EXAMINATION: VITAL SIGNS: Height 5 feet 7 inches, weight 179 pounds, blood pressure 148/90, temperature 98.7, pulse 75. GENERAL: A well-appearing man in no acute distress. HEENT: He had bilateral tonsillar enlargement, left greater than right, with a small amount of whitish exudate adherent to his left tonsil. Attempted to express which was unable to do. Anicteric sclerae. Extraocular movements intact. NECK: Supple. No lymphadenopathy. CARDIOVASCULAR: Regular rate [...] Cranial nerves grossly intact. PSYCHIATRIC: Appropriate affect. ASSESSMENT AND PLAN: Nic Teran is a very pleasant 27-year-old man with a past medical history of ileocolonic Crohn's disease with a history of stricturing disease as well as some concern for fistulizing disease in the past, though none demonstrated, and was currently on Humira and methotrexate and status post a relatively recent ileocecectomy, who presents for follow-up of his Crohn's disease. 1. Ileocolonic Crohn's disease: From a Crohn's standpoint, he is doing quite well. His stooling pattern has improved. He is currently on an appropriate dose of Humira with levels that were checked inOctober that were appropriate. He also remains on methotrexate. Regarding his loose stools, he doesreport worsening of his stooling patterns if he misses his Colestid and notes some bright red blood per rectum when he misses Colestid. It is unclear why he would have hematochezia when missing Colestid, but we did encourage him to continue the Colestid for now. He is due for a colonoscopy for postsurgical evaluation. This is scheduled for next week. If there is significant inflammation noted, wecould consider starting him back on azathioprine versus having to switch him to an alternate medication such as Stelara or Remicade. The issue with Remicade is in the past he has been on Remicade andstopped so we would need to check for possible antibodies. 2. Diarrhea due to malabsorption: He will continue his Colestid and as-needed Imodium. 3. Throat pain: It is unlikely this is related to his Crohn's disease. He does have bilateral tonsillar enlargement. We have organized a referral to ear, nose, and throat and he will be seen later today. The patient was given ample opportunity to ask questions and all of his questions were answered. Donal plan to see him back next week for his colonoscopy. THIS IS A PRELIMINARY REPORT Justus Garcia M.D. Fellow I have seen and examined the patient and agree with the findings and plan of care as documented by and/or discussed with Justus Garcia M.D.. ELECTRONICALLY SIGNED - 07/29/2018 10:32 AM Eliana Quevedo MD, MPH Medical Record Librarians Teacher, Medicine Division of Gastroenterology RR/AG/TD DE SALES ACCOUNT EXECUTIVE documented in this encounter Miscellaneous Notes * Addendum Note - Sulema Wall - 07/25/2018 8:45 AM CSTAddended by: SULEMA WALL on: 07/29/2018 04:37 PM Modules accepted: Orders DE SALES ACCOUNT EXECUTIVE * Addendum Note - Sulema Wall - 07/25/2018 8:45 AM CSTAddended by: SULEMA WALL on: 07/29/2018 04:38 PM Modules accepted: Orders DE SALES ACCOUNT EXECUTIVE * Addendum Note - Sulema Wall - 07/25/2018 8:45 AM CSTAddended by: SULEMA WALL on: 07/29/2018 04:38 PM Modules accepted: Orders DE SALES ACCOUNT EXECUTIVE documented in this encounter Plan of Treatment Not on file documented as of this encounter Results * TB test, T-SPOT (07/29/2018 4:43 PM INSIDE SALES ACCOUNT EXECUTIVE) [facility] IFN-Gamma Release Assay TB Negative [facility] Comment: See scanned result in Medical Record. Interpretive Data Testing performed by [facility], [id number] [place] [address] Current Interpretive Data was last revised 2014 Blood specimen (specimen) 07/29/2018 4:43 PM INSIDE SALES ACCOUNT EXECUTIVE 07/29/2018 5:14 PM INSIDE SALES ACCOUNT EXECUTIVE Narrative [facility] - 07/31/2018 7:41 PM INSIDE SALES ACCOUNT EXECUTIVE Eliana Quevedo MD LAB MICROBIOLOGY - GENERAL ORDERABLES Final Result Performing Organization Address City/[facility]/ZIP Co de Phone Number [facility] Department [place] [address] * Hepatic function panel (07/29/2018 4:43 PM INSIDE SALES ACCOUNT EXECUTIVE) [facility] Bilirubin, total 0.5 0.1 - 1.2 mg/dL [facility] Bilirubin, direct <0.2 0.1 - 0.3 mg/dL [facility] Protein, pl 8.4 6.5 - 8.5 g/dL [facility] Albumin 4.9 3.5 - 5.0 g/dL [facility] Alk phos 89 40 - 130 Units/L [facility] ALT 32 7 - 55 Units/L [facility] AST 24 10 - 50 Units/L [facility] Blood specimen (specimen) 07/29/2018 4:43 PM INSIDE SALES ACCOUNT EXECUTIVE 07/29/2018 5:06 PM INSIDE SALES ACCOUNT EXECUTIVE Narrative [facility] - 07/29/2018 5:41 PM INSIDE SALES ACCOUNT EXECUTIVE Eliana Quevedo MD LAB BLOOD ORDERABLE S Final Result Performing Organization Address [facility] Co de Phone Number [facility] Department [place] [address] * CBC with auto differential (07/29/2018 4:43 PM INSIDE SALES ACCOUNT EXECUTIVE) [facility] WBC 8.3 3.8 - 9.9 K/cumm [facility] Hgb 13.8 13.0 - 17.5 g/dL [facility] Hct 41.3 38.9 - 50.3 % [facility] Plt 252 150 - 400 K/cumm [facility] MPV 11.1 9.1 - 12.3 fL [facility] RBC 4.64 4.30 - 5.80 M/cumm [facility] MCV 89.0 81.3 - 96.4 fL [facility] MCH 29.7 27.1 - 33.3 pg [facility] MCHC 33.4 32.3 - 35.7 g/dL [facility] RDW CV 12.8 11.1 - 14.9 % [facility] RDW SD 42.0 35.7 - 48.1 fL [facility] NRBC abs 0.00 0.00 - 0.01 K/cumm [facility] Blood specimen (specimen) 07/29/2018 4:43 PM INSIDE SALES ACCOUNT EXECUTIVE 07/29/2018 5:07 PM INSIDE SALES ACCOUNT EXECUTIVE Narrative [facility] - 07/29/2018 5:22 PM INSIDE SALES ACCOUNT EXECUTIVE us Eliana Quevedo MD LAB BLOOD ORDERABLE S Final Result [facility] Department [place] [address] documented in this encounter Visit Diagnoses Diagnosis Crohn's disease of small and large intestines with complication (HCC)- Primary High risk medications (not anticoagulants) long-term use Encounter for long-term (current) use of other medications Crohn's disease of both small and large intestine with intestinal obstruction (HCC) Diarrhea due to malabsorption Crohn's disease of small and large intestines with complication (HCC) High risk medications (not anticoagulants) long-term use Encounter for long-term (current) use of other medications documented in this encounter Historical Medications * This list may reflect changes made after this encounter. UNABLE TO FIND cbd oil 07/31/2018 cefdinir (OMNICEF) 300 mg capsule 0 07/05/2018 07/25/2018 added in this encounter Care Teams Berry Planter Relationship Specialty Start Date End Date Lanre Parekh DO [address] [place] [id number] PCP - General Family Medicine 07/25/18 07/28/18 Trenton Bess MD [address] [place] [id number] PCP - General 07/29/18 01/22/19 documented as of this encounter
--- OUTSIDE RECORDS SUMMARY | 2024-07-09 05:26 | XMS_ITS | Encounter Summary ---
Author Organization [facility] Address [address] [place] [address] Phone Care Team Providers Care Ecommerce Marketing Manager Name Role Phone Trenton Bess MD Primary Care Provider [phone] Encounter Details Date Type Department Care Team (Late st Contact Info) Description 12/09/2018 Orders Only [facility] Gastroenterology [address] [facility] 8th [place] [address] [place] [address] Eliana Quevedo MD [address] [place] [address] Crohn's disease of both small and large intestine with intestinal obstruction (CMS/HCC) (Primary Dx) Social History Tobacco Use Types Packs/Day Years Used Date Smoking Tobacco: Never Smokeless Tobacco: Never Alcohol Use Standard Drinks/Week Comments No 0 (1 standard drink = 0.6 oz pur e alcohol) Sex and Gender Information Value Date Recorded Sex Assigned at Not on file Legal Sex Male 11:11 PM BAKERY SUPERVISOR Gender Identity Not on file Sexual Orientation Not on file documented as of this encounter Ordered Prescriptions Prescription Sig Dispense Quantity Refills Last Filled Start Date End Date balsalazide (COLAZAL) 750 mg capsuleIndications :Ulcerative Colitis Take 3 capsules three times daily. 270 capsule 1 12/09/2018 9 documented in this encounter Plan of Treatment Not on file documented as of this encounter Visit Diagnoses Diagnosis Crohn's disease of both small and large intestine with intestinal obstruction (HCC)- Primary documented in this encounter Discontinued Medications Medication Sig Discontinue Reason Start Date End Da te balsalazide (COLAZAL) 750 mg capsuleIndications:Ulce rative Colitis TAKE 3 CAPSULES 3 TIMES DAILY.( clarified script) Reorder 02/01/2017 12/09/2018 documented as of this encounter Care Teams Ecommerce Marketing Manager Relationship Specialty Start Date End Date Trenton Bess MD PCP - General 07/29/18 01/22/19 documented as of this encounter
--- OUTSIDE RECORDS SUMMARY | 2024-07-09 05:26 | XMS_ITS | Encounter Summary ---
Author Organization [facility] Address [address] [place] [address] Phone Care Team Providers Care Production Truck Driver Name Role Phone Trenton Bess MD Primary Care Provider [phone] Encounter Details Date Type Department Care Team (Late st Contact Info) Description 06/08/[address] 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 Teran's this morning. He has been having throat pain since Sunday, and yesterday went to an urgent care for evaluation for strep throat. They are waiting for the results of that still. He is having some mouth pain and chills, no fevers. He has some residual diarrhea after his recent surgery but this is unchanged from prior. His says he is able to toleratePO and that his energy is good. He did return to a local ER for re- testing for strep, but she doesn't know the results yet. I told her that if he develops any symptoms like fevers, blood in the stool, abdominal pain, etc, that they should go to the hospital immediately. She is in agreement with this plan. If he is not feeling better on Sunday, they plan to call Dr. Quevedo' office to make an appointment. ERCIAL ELECTRICIAN documented in this encounter Plan of Treatment Not on file documented as of this encounter Visit Diagnoses Not on filedocumented in this encounter Care Teams Production Truck Driver Relationship Specialty Start Date End Date Trenton Bess MD PCP - General 04/30/17 07/24/18 documented as of this encounter
--- OUTSIDE RECORDS SUMMARY | 2024-07-09 05:26 | XMS_ITS | Encounter Summary ---
Author Organization [facility] Address [address] [place] [address] Phone Care Team Providers Care Can Dryer Name Role Phone Trenton Bess MD Primary Care Provider [phone] Encounter Details Date Type Department Care Team (Late st Contact Info) Description 05/28/2018 Orders Only [facility] Gastroenterology [facility] [facility] 8th [place] [address] [place] [id number] Padma Mendoza RN Social History Tobacco Use Types Packs/Day Years Used Date Smoking Tobacco: Never Smokeless Tobacco: Never Alcohol Use Standard Drinks/Week Comments No 0 (1 standard drink = 0.6 oz pur e alcohol) Sex and Gender Information Value Date Recorded Sex Assigned at Not on file 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 Therapy completed 12/21/2017 05/28/2018 documented as of this encounter Care Teams Can Dryer Relationship Specialty Start Date End Date Trenton Bess MD PCP - General 04/30/17 07/24/18 documented as of this encounter
--- OUTSIDE RECORDS SUMMARY | 2024-07-09 05:26 | XMS_ITS | Encounter Summary ---
Author Organization [facility] Address [address] [place] [address] Care Team Providers Care Rehab/Pre Vocational Counselor Name Role Phone Trenton Bess MD Primary Care Provider [phone] Encounter Details Date Type Department Care Team (Late st Contact Info) Description 10/18/2018 9:35 AM CDT Lab [facility] ([facility]) [facility] [place] [id number] Eliana Quevedo MD [facility] [address] [facility] [address] [place], [place] [id number] Crohn's disease of both small and large intestine with intestinal obstruction (CMS/HCC); Diarrhea, unspecified type Discharge Disposition: Discharge to home or self care Social History Tobacco Use Types Packs/Day Years Used Date Smoking Tobacco: Never Smokeless Tobacco: Never Alcohol Use Standard Drinks/Week Comments No 0 (1 standard drink = 0.6 oz pur e alcohol) Sex and Gender Information Value Date Recorded Sex Assigned at Not on file 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 Gender Identity Not on file Sexual Orientation Not on file documented as of this encounter Discharge Disposition Disposition Code Departure Means Destination Discharge to home or self care documented in this encounter Plan of Treatment Not on file documented as of this encounter Procedures Procedure Name Priority Date/Time Associated Diagnosis Comments LEUKOCYTES, FECAL Routine 10/18/2018 12:00 PM CDT Crohn's disease of both small and large intestine with intestinal obstruction (CMS/HCC) Diarrhea, unspecified type OVA AND PARASITE EXAMINATION Routine 10/18/2018 9:30 AM CDT Crohn's disease of both small and large intestine with intestinal obstruction (CMS/HCC) Diarrhea, unspecified type CRYPTOSPORIDIUM AND GIARDIA ANTIGEN ASSAY Routine Gen Lab 10/18/2018 9:30 AM CDT CLOSTRIDIUM DIFFICILE ASSAY Routine 10/18/2018 9:30 AM CDT Crohn's disease of both small and large intestine with intestinal obstruction (CMS/HCC) Diarrhea, unspecified type STOOL CULTURE Routine 10/18/2018 9:30 AM CDT Crohn's disease of both small and large intestine with intestinal obstruction (CMS/HCC) Diarrhea, unspecified type documented in this encounter Results * Leukocytes, fecal (10/18/2018 12:00 PM CDT) WBC, fecal 0 0 - 0 /LPF [facility] Stool 10/18/2018 12:0 0 PM CDT 10/18/2018 1:20 PM CDT Narrative [facility] - 10/18/2018 1:27 PM CDT Eliana Quevedo MD LAB BODY FLUIDS AND STOOLS ORDERABLES Final Result [facility] Department [place] [address] * Cryptosporidium and giardia antigen assay Stool (10/18/2018 9:30 AM CDT) Report Final Report: Negative for Giardia lamblia antigen Negative for Cryptosporidium antigen [facility] Organism NEGATIVE FOR GIARDIA LAMBLIA ANTIGEN [facility] Organism NEGATIVE FOR CRYPTOSPORIDIUM ANTIGEN [facility] Stool 10/18/2018 9:30 AM CDT 10/18/2018 11:11 AM CDT Narrative [facility] - 10/18/2018 11:11 AM CDT Received in PVA and Formalin. This test is an Immunoassay which screens for Cryptosporidium and Giardia only. ??Please request Microscopic OP Exam if comprehensive examination for ova and parasites is required. ?? Current interpretive data was last revised on 04. Eliana Quevedo MD LAB MICROBIOLOGY - GENERAL ORDERABLES Final Result Performing Organization Address [facility] Co de Phone Number [facility] [place] [address] * Ova and parasite examination Stool (10/18/2018 9:30 AM CDT) Report Final Report: No parasites detected. Note: treatment with antibiotics; e.g., Clindamycin, Metronidazole, Tetracycline, and Trimethoprim-s ulfa can adversely affect the detection of ova and parasites. [facility] Stool 10/18/2018 9:30 AM CDT 10/18/2018 11:10 AM CDT Narrative [facility] - 10/21/2018 2:54 PM CDT Received in PVA and Formalin. Eliana Quevedo MD LAB MICROBIOLOGY - GENERAL ORDERABLES Final Result Performing Organization Address [facility] de [place] [address] * Stool culture Stool Rectum (10/18/2018 9:30 AM CDT) Direct Specimen Exam Shiga Toxin Testing: Antigen detection assay for Shiga-toxin NEGATIVE for Shiga Toxin 1 and Shiga Toxin 2. [facility] Report Final Report: No growth of enteric bacterial pathogens [facility] Stool (Rectum) 10/18/2018 9: 30 AM CDT 10/18/2018 11:14 AM CDT Narrative [facility] - 10/22/2018 10:30 AM CDT Testing performed by [facility] ([phone]). Routine stool cultures include procedures to detect Salmonella, Shigella, Edwardsiella, Aeromonas, Pleisiomonas, Campylobacter, Yersinia, E. coli O157, and Shiga-like toxins. ?? Vibrio is cultured only upon special request. ??If Vibrio is suspected, please call the laboratory at [phone]. Interpretive data was last updated November 06, 2016. Eliana Quevedo MD LAB MICROBIOLOGY - GENERAL ORDERABLES Final Result Performing Organization Address [facility] [place] [address] * Clostridium difficile assay Stool (10/18/2018 9:30 AM CDT) Report Final Report: Negative for: Clostridium difficile toxin. [facility] Stool 10/18/2018 9:30 AM CDT 10/18/2018 11:13 AM CDT Narrative [facility] - 10/19/2018 5:03 AM CDT Eliana Quevedo MD LAB MICROBIOLOGY - GENERAL ORDERABLES Final Result Performing Organization Address [facility] Co de Phone Number [facility] [place] [address] documented in this encounter Visit Diagnoses Diagnosis Crohn's disease of both small and large intestine with intestinal obstruction (HCC) Diarrhea, unspecified type documented in this encounter Care Teams Rehab/Pre Vocational Counselor Relationship Specialty Start Date End Date Trenton Bess MD PCP - General 07/29/18 01/22/19 documented as of this encounter
--- OUTSIDE RECORDS SUMMARY | 2024-07-09 05:26 | XMS_ITS | Encounter Summary ---
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 90 tablet 01/08/2019 03/26/2019 documented in this encounter Progress Notes * Eliana Quevedo MD - 01/08/2019 3:41 PM CDT CBC and LFTs OK Metabolites pending * Eliana Qeuvedo MD - 01/08/2019 3:41 PM CDT CBC and LFTs OK * Eliana Quevedo MD - 01/08/2019 3:41 PM CDT Please check metabolites (allo started at last visit and no metabolites since); recheck LFTs in 2 weeks documented in this encounter Plan of Treatment Scheduled Orders Name Type Priority Associated Diagnoses Orde r Schedule CBC with auto differential Lab Routine Crohn's disease of both small and large intestine with intestinal obstruction (CMS/HCC) High risk medications (not anticoagulants) long-term use every 2 weeks for 4 Occurrences starting 01/08/2019 until 01/09/2020, 2 completed Hepatic function panel Lab Routine Crohn's disease of both small and large intestine with intestinal obstruction (CMS/HCC) High risk medications (not anticoagulants) long-term use every 2 weeks for 4 Occurrences starting 01/08/2019 until 01/09/2020, 2 completed Thiopurine metabolites Lab Routine Crohn's disease of both small and large intestine with intestinal obstruction (CMS/HCC) High risk medications (not anticoagulants) long-term use Expected: 03/07/2019 (Approximate), Expires: 01/09/2020 documented as of this encounter Procedures Procedure Name Priority Date/Time Associated Diagnosis Comments COPY(IES) SENT TO: Routine 02/28/2019 9: 36 AM CDT CBC WITH AUTO DIFFERENTIAL Routine 02/28/2019 9:36 AM CDT Crohn's disease of both small and large intestine with intestinal obstruction (CMS/HCC) High risk medications (not anticoagulants) long-term use COPY(IES) SENT TO: Routine 02/28/2019 9: 35 AM CDT HEPATIC FUNCTION PANEL Routine 02/28/2019 9:35 AM CDT Crohn's disease of both small and large intestine with intestinal obstruction (CMS/HCC) High risk medications (not anticoagulants) long-term use COPY(IES) SENT TO: Routine 02/08/2019 8: 43 AM CDT CBC WITH AUTO DIFFERENTIAL Routine 02/08/2019 8:43 AM CDT HEPATIC FUNCTION PANEL Routine 02/08/2019 8:43 AM CDT COPY(IES) SENT TO: Routine 01/25/2019 9: 10 AM CDT CBC WITH AUTO DIFFERENTIAL Routine 01/25/2019 9:10 AM CDT Crohn's disease of both small and large intestine with intestinal obstruction (CMS/HCC) High risk medications (not anticoagulants) long-term use HEPATIC FUNCTION PANEL Routine 01/25/2019 9:10 AM CDT Crohn's disease of both small and large intestine with intestinal obstruction (CMS/HCC) High risk medications (not anticoagulants) long-term use documented in this encounter Results * COPY(IES) SENT TO: (02/28/2019 9:36 AM CDT) COPY(IES) S[facility] TO: [facility] Comment: ?[facility] ?COPY TO ACCOUNT ?[id number] ?[place] [address] 02/28/2019 9:36 AM CDT 02/28/2019 9:38 AM CDT us Eliana Quevedo MD LAB BLOOD ORDERABLE S Final Result [facility] * (ABNORMAL) CBC with auto differential (02/28/2019 9:36 AM CDT) WBC 5.1 3.8 - 10.8 Thousand/u L [facility] [place] RBC, POC 4.29 4.20 - 5.80 Million/uL [facility] [place] Hgb 13.5 13.2 - 17.1 g/dL [facility] [place] Hct 41.3 38.5 - 50.0 % [facility] [place] MCV 96.3 80.0 - 100.0 fL [facility] [place] MCH 31.5 27.0 - 33.0 pg [facility] [place] MCHC 32.7 32.0 - 36.0 g/dL [facility] [place] Rdw 15.7(H) 11.0 - 15.0 % [facility] [place] Platelets 257 140 - 400 Thousand/u L [facility] [place] MPV 10.7 7.5 - 12.5 fL [facility] [place] Neutrophils, abs 2,351 1,500 - 7,800 cells/uL [facility] [place] Lymphocytes, abs 2,326 850 - 3,900 cells/uL [facility] [place] Monocyte abs 321 200 - 950 cells/uL [facility] [place] Eosinophils, abs 51 15 - 500 cells/uL [facility] [place] Basophils, abs 51 0 - 200 cells/uL [facility] [place] Neutrophils 46.1 % [facility] [place] Lymphocyte pct 45.6 % [facility] [place] Monocytes 6.3 % [facility] [place] Eosinophils 1.0 % [facility] [place] Basophils 1.0 % [facility] [place] Comment: ? Your request to have a duplicate copy faxed has been acknowledged. ?Queued to: ??[id number] Blood specimen (specimen) 02/28/2019 9:36 AM CDT 02/28/2019 9:38 AM CDT Narrative Resulting Agency Comment Performing Organization Information: ?Site ID: [place] ?Name: [facility] ?Address: [address] [address] ?Director: Christopher Salas D.O., MPH us Eliana Quevedo MD LAB BLOOD ORDERABLE S Final Result Performing Organization Address City/[facility]/ZIP Co de Phone Number [facility] [place] * COPY(IES) SENT TO: (02/28/2019 9:35 AM CDT) COPY(IES) SENT TO: [facility] Comment: ?[facility] ?COPY TO ACCOUNT ?[id number] ?[place] [address] 02/28/2019 9:35 AM CDT 02/28/2019 9:35 AM CDT us Eliana Quevedo MD LAB BLOOD ORDERABLE S Final Result Performing Organization Address [facility] Co de Phone Number ANGELY * (ABNORMAL) Hepatic function panel (02/28/2019 9:35 AM CDT) Protein, Total 8.0 6.4 - 8.4 g/dL [facility] [place] Albumin 4.6 3.6 - 5.1 g/dL [facility] [place] Globulin 3.4 2.2 - 4.0 g/dL (calc) [facility] [place] Alb/glob ratio 1.4 0.9 - 2.3 (calc) [facility] [place] Bilirubin, total 0.8 0.2 - 1.2 mg/dL [facility] [place] Bilirubin, direct 0.2 < OR = 0.2 mg/dL [facility] [place] Bilirubin, indirect 0.6 0.2 - 1.2 mg/dL (calc) [facility] [place] Alk phos 65 40 - 115 U/L [facility] [place] AST 101(H) 10 - 40 U/L [facility] [place] ALT (SGPT) 78(H) 9 - 46 U/L [facility] [place] Comment: ? Your request to have a duplicate copy faxed has been acknowledged. ?Queued to: ??[id number] Blood specimen (specimen) 02/28/2019 9:35 AM CDT 02/28/2019 9:35 AM CDT Narrative Resulting Agency Comment Performing Organization Information: ?Site ID: [place] ?Name: [facility] ?Address: [address] [address] ?Director: Christopher Salas D.O., MPH us Eliana Quevedo MD LAB BLOOD ORDERABLE S Final Result [facility] [place] * CBC with auto differential (02/08/2019 8:43 AM CDT) WBC 4.7 3.8 - 10.8 Thousand/u L [facility] [place] RBC, POC 4.27 4.20 - 5.80 Million/uL [facility] [place] Hgb 13.2 13.2 - 17.1 g/dL [facility] [place] Hct 39.7 38.5 - 50.0 % [facility] [place] MCV 93.0 80.0 - 100.0 fL [facility] [place] MCH 30.9 27.0 - 33.0 pg [facility] [place] MCHC 33.2 32.0 - 36.0 g/dL [facility] [place] Rdw 14.5 11.0 - 15.0 % [facility] [place] Platelets 233 140 - 400 Thousand/u L [facility] [place] MPV 10.7 7.5 - 12.5 fL [facility] [place] Neutrophils, abs 2,510 1,500 - 7,800 cells/uL [facility] [place] Lymphocytes, abs 1,800 850 - 3,900 cells/uL [facility] [place] Monocyte abs 259 200 - 950 cells/uL [facility] [place] Eosinophils, abs 80 15 - 500 cells/uL [facility] [place] Basophils, abs 52 0 - 200 cells/uL [facility] [place] Neutrophils 53.4 % [facility] [place] Lymphocyte pct 38.3 % [facility] [place] Monocytes 5.5 % [facility] [place] Eosinophils 1.7 % [facility] [place] Basophils 1.1 % [facility] [place] Comment: ? Your request to have a duplicate copy faxed has been acknowledged. ?Queued to: ??[id number] 02/08/2019 8:43 AM CDT 02/08/2019 8:44 AM CDT Narrative [facility] - 02/09/2019 6:14 AM CDT MULTIPLE TESTING PRIORITIES; ROUTINE TESTING TO FOLLOW. Resulting Agency Comment Performing Organization Information: ?Site ID: [place] ?Name: [facility] ?Address: [address] [place] [address] [address] [address] ?Director: Christopher Salas D.O., MPH us Eliana Quevedo MD LAB BLOOD ORDERABLE S Final Result [facility] [place] * Hepatic function panel (02/08/2019 8:43 AM CDT) Protein, Total 7.7 6.4 - 8.4 g/dL [facility] [place] Albumin 4.5 3.6 - 5.1 g/dL [facility] [place] Globulin 3.2 2.2 - 4.0 g/dL (calc) [facility] [place] Alb/glob ratio 1.4 0.9 - 2.3 (calc) [facility] [place] Bilirubin, total 0.7 0.2 - 1.2 mg/dL [facility] [place] Bilirubin, direct 0.2 < OR = 0.2 mg/dL [facility] [place] Bilirubin, indirect 0.5 0.2 - 1.2 mg/dL (calc) [facility] [place] Alk phos 61 40 - 115 U/L [facility] [place] AST 22 10 - 40 U/L [facility] [place] ALT (SGPT) 34 9 - 46 U/L [facility] [place] 02/08/2019 8:43 AM CDT 02/08/2019 8:44 AM CDT Narrative [facility] - 02/09/2019 6:14 AM CDT MULTIPLE TESTING PRIORITIES; ROUTINE TESTING TO FOLLOW. Resulting Agency Comment Performing Organization Information: ?Site ID: [place] ?Name: [facility] ?Address: [facility] [address] [address] ?Director: Christopher Salas D.O., MPH us Eliana Quevedo MD LAB BLOOD ORDERABLE S Final Result Performing Organization Address [facility] de Phone Number [place] * COPY(IES) SENT TO: (02/08/2019 8:43 AM CDT) COPY(IES) SENT TO: [facility] Comment: ?[facility] ?COPY TO ACCOUNT ?[id number] ?[place] [address] 02/08/2019 8:43 AM CDT 02/08/2019 8:44 AM CDT Narrative [facility] - 02/09/2019 6:14 AM CDT MULTIPLE TESTING PRIORITIES; ROUTINE TESTING TO FOLLOW. us Eliana Quevedo MD LAB BLOOD ORDERABLE S Final Result Performing Organization Address City/[facility] Co de Phone Number [facility] * COPY(IES) SENT TO: (01/25/2019 9:10 AM CDT) COPY(IES) SENT TO: [facility] Comment: ?[facility] ?COPY TO ACCOUNT ?[id number] ?[place] [address] 01/25/2019 9:10 AM CDT 01/25/2019 9:11 AM CDT Narrative [facility] - 01/26/2019 7:49 AM CDT FASTING:NO FASTING: NO us Eliana Quevedo MD LAB BLOOD ORDERABLE S Final Result [facility] * Hepatic function panel (01/25/2019 9:10 AM CDT) Pathologist [facility] Protein, Total 8.2 6.4 - 8.4 g/dL [facility] [place] Albumin 4.7 3.6 - 5.1 g/dL [facility] [place] Globulin 3.5 2.2 - 4.0 g/dL (calc) [facility] [place] Alb/glob ratio 1.3 0.9 - 2.3 (calc) [facility] [place] Bilirubin, total 0.7 0.2 - 1.2 mg/dL [facility] [place] Bilirubin, direct 0.2 < OR = 0.2 mg/dL [facility] [place] Bilirubin, indirect 0.5 0.2 - 1.2 mg/dL (calc) [facility] [place] Alk phos 72 40 - 115 U/L [facility] [place] AST 23 10 - 40 U/L [facility] [place] ALT (SGPT) 36 9 - 46 U/L [facility] [place] Blood specimen (specimen) 01/25/2019 9:10 AM CDT 01/25/2019 9:11 AM CDT Narrative [facility] - 01/26/2019 7:49 AM CDT FASTING:NO FASTING: NO Resulting Agency Comment Performing Organization Information: ?Site ID: [place] ?Name: [facility] ?Address: [address] [address] ?Director: Christopher Salas D.O., MPH us Eliana Quevedo MD LAB BLOOD ORDERABLE S Final Result [facility] [place] * CBC with auto differential (01/25/2019 9:10 AM CDT) WBC 6.3 3.8 - 10.8 Thousand/u L [facility] [place] RBC, POC 4.65 4.20 - 5.80 Million/uL [facility] [place] Hgb 14.1 13.2 - 17.1 g/dL [facility] [place] Hct 42.9 38.5 - 50.0 % [facility] [place] MCV 92.3 80.0 - 100.0 fL [facility] [place] MCH 30.3 27.0 - 33.0 pg [facility] [place] MCHC 32.9 32.0 - 36.0 g/dL [facility] [place] Rdw 13.8 11.0 - 15.0 % [facility] [place] Platelets 229 140 - 400 Thousand/u L [facility] [place] MPV 10.4 7.5 - 12.5 fL [facility] [place] Neutrophils, abs 3,314 1,500 - 7,800 cells/uL [facility] [place] Lymphocytes, abs 2,621 850 - 3,900 cells/uL [facility] [place] Monocyte abs 233 200 - 950 cells/uL [facility] [place] Eosinophils, abs 82 15 - 500 cells/uL [facility] [place] Basophils, abs 50 0 - 200 cells/uL [facility] [place] Neutrophils 52.6 % [facility] [place] Lymphocyte pct 41.6 % [facility] [place] Monocytes 3.7 % [facility] [place] Eosinophils 1.3 % [facility] [place] Basophils 0.8 % [facility] [place] Comment: ? Your request to have a duplicate copy faxed has been acknowledged. ?Queued to: ??[id number] Blood specimen (specimen) 01/25/2019 9:10 AM CDT 01/25/2019 9:11 AM CDT Narrative [facility] - 01/26/2019 7:49 AM CDT FASTING:NO FASTING: NO Resulting Agency Comment Performing Organization Information: ?Site ID: [place] ?Name: [facility] ?Address: [address] [address] ?Director: Christopher Salas D.O., MPH us Eliana Quevedo MD LAB BLOOD ORDERABLE S Final Result [facility] [place] documented in this encounter Visit Diagnoses Diagnosis Crohn's disease of both small and large intestine with intestinal obstruction (HCC)- Primary High risk medications (not anticoagulants) long-term use Encounter for long-term (current) use of other medications documented in this encounter Discontinued Medications Medication Sig Discontinue Reason Start Date End Da te mercaptopurine (PURINETHOL) 50 mg tabletIndications:Crohn 's Disease Take 2 tabs PO daily [facility] LABS at [facility] REQUIRED EVERY 3 MONTHS FOR REFILLS DUE 12/2018 Reorder 12/17/2018 01/08/2019 documented as of this encounter Care Teams Deputy Sheriff Chief Relationship Specialty Start Date End Date Trenton Bess MD PCP - General 07/29/18 01/22/19 documented as of this encounter
--- OUTSIDE RECORDS SUMMARY | 2024-07-09 05:26 | XMS_ITS | Encounter Summary ---
Author Organization [facility] Address [address] [place] [address] Phone Care Team Providers Care Buhr Dresser Name Role Phone Trenton Bess MD Primary Care Provider [phone] Reason for Visit * Reason Onset Date Comments Patient issue/concern 06/13/2018 Encounter Details Date Type Department Care Team (Late st Contact Info) Description 06/13/[address] Medical Office [address] [place] [address] Fernando Mckeon MD [address] [place] [id number] Patient issue/concern Social History Tobacco Use Types Packs/Day Years Used Date Smoking Tobacco: Never Smokeless Tobacco: Never Alcohol Use Standard Drinks/Week Comments No 0 (1 standard drink = 0.6 oz pur e alcohol) Sex and Gender Information Value Date Recorded Sex Assigned at Not on file Legal Sex Male 11:11 PM TECHNICAL ARCHITECT Gender Identity Not on file Sexual Orientation Not on file documented as of this encounter Miscellaneous Notes * Telephone Encounter - Fernando Mckeon MD - 06/17/2018 11:57 AM CST Such a short course should not require a change in our current approach. But retirement courses are aconcern. Thank him for keeping us appraised. NICAL ARCHITECT * Telephone Encounter - Jefferson Granado MA - 06/13/2018 1:43 PM CST Pt would like you to know that he is on Prednisone 40mg for five days only due to a throat infection NICAL ARCHITECT documented in this encounter Plan of Treatment Not on file documented as of this encounter Visit Diagnoses Not on filedocumented in this encounter Care Teams Buhr Dresser Relationship Specialty Start Date End Date Trenton Bess MD PCP - General 04/30/17 07/24/18 documented as of this encounter
--- OUTSIDE RECORDS SUMMARY | 2024-07-09 05:26 | XMS_ITS | Encounter Summary ---
Author Organization [facility] Address [address] [place] [address] Phone Care Team Providers Care Civil Engineering Design Draftsperson Name Role Phone Trenton Bess MD Primary Care Provider [phone] Encounter Details Date Type Department Care Team (Late st Contact Info) Description 08/14/2018 Telephone [facility] [address] [facility] 8th [place] [address] [place] [address] Eliana Quevedo MD [address] [place] [address] Social History Tobacco Use Types Packs/Day Years Used Date Smoking Tobacco: Never Smokeless Tobacco: Never Alcohol Use Standard Drinks/Week Comments No 0 (1 standard drink = 0.6 oz pur e alcohol) Sex and Gender Information Value Date Recorded Sex Assigned at Not on file Legal Sex Male 11:11 PM AD TRAFFICKER Gender Identity Not on file Sexual Orientation Not on file documented as of this encounter Miscellaneous Notes * Telephone Encounter - Mona Esqueda MA - 08/14/2018 3:07 PM CST Pt called asking if he can get permanent toenail removal while on 6MP? Per Padma yes, and if they are going to pu tpt on abx, pt to cb with name of abx. TRAFFICKER documented in this encounter Plan of Treatment Not on file documented as of this encounter Visit Diagnoses Not on filedocumented in this encounter Care Teams Civil Engineering Design Draftsperson Relationship Specialty Start Date End Date Trenton Bess MD PCP - General 07/29/18 01/22/19 documented as of this encounter
--- OUTSIDE RECORDS SUMMARY | 2024-07-09 05:26 | XMS_ITS | Encounter Summary ---
Author Organization [facility] Healthcare Address [address] [place] [address] Care Team Providers Care Lap Runner Name Role Phone Trenton Bess MD Primary Care Provider [phone] Encounter Details Date Type Department Care Team (Late st Contact Info) Description 08/02/2018 6:48 AM BRANCH ACCOUNT MANAGER - 08/02/2018 9:54 AM BRANCH ACCOUNT MANAGER Hospital Encounter [facility] Endoscopy [address] [place] [address] Eliana Quevedo MD [address] [place], [place] [id number] Crohn's disease of both small and large [...] on file Legal Sex Male 11:11 PM BRANCH ACCOUNT MANAGER Gender Identity Not on file Sexual Orientation Not on file documented as of this encounter Last Filed Vital Signs Vital Sign Reading Time Taken Comments Blood Pressure 102/73 08/02/2018 8:55 AM BRANCH ACCOUNT MANAGER Pulse 70 08/02/2018 9:25 AM BRANCH ACCOUNT MANAGER Temperature 36.9 ??C (98.4 ??F) 08/02/2018 8:37 AM CS T Respiratory Rate 16 08/02/2018 9:25 AM BRANCH ACCOUNT MANAGER Oxygen Saturation 99% 08/02/2018 9:25 AM BRANCH ACCOUNT MANAGER Inhaled Oxygen Concentration - - Weight 76.2 kg (168 lb) 08/02/2018 6:59 AM BRANCH ACCOUNT MANAGER Height 170.2 cm (5' 7 ) 08/02/2018 6:59 AM BRANCH ACCOUNT MANAGER Body Mass Index 26.31 08/02/2018 6:59 AM BRANCH ACCOUNT MANAGER documented in this encounter Medications at Time [...] 09/2018) 40 tablet 2 07/30/2018 9 omega 4-ozx-ewn-fish oil 300-1,000 mg capsule 1 capsule every [...] ileocecal resection ??? VASECTOMY 2018 Social History Substance Use Topics ??? Smoking [...] Date End Date Taking? Authorizing Provider omega 0-jof-ypx-fish oil 300-1,000 mg capsule 1 capsule every [...] planned procedure for the reasons stated above. CH ACCOUNT MANAGER documented in this encounter Procedure Notes * Eliana Quevedo MD - 08/02/2018 8:01 AM CSTAssociated Order(s): COLONOSCOPY ENDOSCOPY LAB Patient Name: Nic Teran Procedure Date: 08/02/2018 8:01 AM Date of : 1990 Admit Type: Outpatient Age: 27 Gender: Male Attending MD: Eliana Quevedo M.D. Room: [place] [address] Note Status: Finalized Procedure Date No Time: [...] scope was passed under direct vision. The [id number] was introduced through the anus and advanced to the 15 cm into the ileum. The colonoscopy was performed without difficulty. The patient tolerated the procedure well. The quality of the bowel preparation was evaluated using the BBPS (Richmond Bowel Preparation Scale) with scores of: Right [...] 0 Note Initiated On: 08/02/2018 8:01 AM CH ACCOUNT MANAGER documented in this encounter Miscellaneous Notes * Perioperative Nursing Note - Kleli Betancourt RN - 08/02/2018 9:45 AM BRANCH ACCOUNT MANAGER Labs drawn and sent CH ACCOUNT MANAGER * Pre-Procedure Instructions - Dina Erickson RN - 07/31/2018 3:28 PM BRANCH ACCOUNT MANAGER Come to [facility] hospital entrance and register at desk. Follow any and all instructions given to you re:bowel prep. Bring service car driver's license or photo ID, insurance cards. Leave any valuables at home including jewelry, [place]. Bring case for eye glasses. Dress comfortably. Please have ride arranged to and from hospital with a responsible adult-someone who knows you and that can care for you. CH ACCOUNT MANAGER documented in this encounter Plan of Treatment Not on file documented as of this encounter Procedures Procedure Name Priority Date/Time Associated Diagnosis Comments ADALIMUMAB QUANTITATIVE WITH REFLEX TO ANTIBODY, SERUM Routine 08/02/2018 9:47 AM BRANCH ACCOUNT MANAGER Crohn's disease of both small and large intestine without complication (CMS/HCC) High risk medications (not anticoagulants) long-term use COLON DILATION 10R>STRICT 08/02/2018 8:04 AM BRANCH ACCOUNT MANAGER Crohn's disease of both small and large intestine with other complication (CMS/HCC) COLONOSCOPY 08/02/2018 8:01 AM BRANCH ACCOUNT MANAGER documented in this encounter Results * Adalimumab quantitative with reflex to antibody, serum (08/02/2018 9:47 AM BRANCH ACCOUNT MANAGER) ADALX Quant 11.0 mcg/mL [facility] Comment: For clinical assessment of response to therapy, adalimumab should be measured at trough. When adalimumab trough concentrations are greater than 5.0 mcg/mL, clinically relevant fldtjmvxwl-bf-nbomuodcda are unlikely and reflex testing will not be performed. REFERENCE VALUE Limit of Quantitation = 0.8 mcg/mL ADDITIONAL INFORMATION This test was developed and its performance characteristics determined by [facility] in a manner consistent with CLIA requirements. This test has not been cleared or approved by the U.S. Food and Drug Administration. Test Performed by: [facility] - [address] [place] [address] Blood specimen (specimen) 08/02/2018 9:47 AM BRANCH ACCOUNT MANAGER 08/02/2018 10:39 AM BRANCH ACCOUNT MANAGER Narrative [facility] - 08/06/2018 5:55 PM BRANCH ACCOUNT MANAGER Eliana Quevedo MD LAB BLOOD ORDERABLE S Final Result [facility] [address] Department [place] [address] * COLONOSCOPY (08/02/2018 8:01 AM BRANCH ACCOUNT MANAGER) Anatomical Region Laterality Modality Other Narrative Procedure Note Eliana Quevedo MD - 08/02/2018 8:01 AM CST ENDOSCOPY LAB Patient Name: Nic Teran Procedure Date: 08/02/2018 8:01 AM Date of : 1990 Admit Type: Outpatient Age: 27 Gender: Male Attending MD: Piotr SubramanianD. Room: [facility] 02 Note Status: Finalized Procedure Date No Time: [...] Thescope was passed under direct vision. The [id number] introduced through the anus and advanced to the 15 cminto the ileum. The colonoscopy was performed without difficulty. The patient tolerated the procedure well.The quality of the bowel preparation was evaluated usingthe BBPS (Richmond Bowel Preparation Scale) with scores of: Right [...] 0 Note Initiated On: 08/02/2018 8:01 AM Eliana Quevedo MD ENDOSCOPY PROCEDURE S Final Result documented in this encounter Visit Diagnoses Diagnosis Crohn's disease of both small and large intestine without complication (CMS/HCC) (HCC) High risk medications (not anticoagulants) long-term use Encounter for long-term (current) use of other medications documented in this encounter Administered Medications Inactive [...] Pre-Procedure (GI) New Bag 08/02/2018 7:16 AM BRANCH ACCOUNT MANAGER 30 mL/hr 30 mL/hr documented in this encounter Discontinued Medications Medication Sig Discontinue Reason Start Date End Da te UNABLE TO FIND cbd oil 07/31/2018 documented as of this encounter Active and Recently Administered Medications Times are shown in BRANCH ACCOUNT MANAGER. Continuous Medication Order 07/31/2018 08/01/2018 08/02/2018 sodium chloride 0.9% infusion 30 mL/hr, intravenous, Continuous, Starting on Sun08/02/18 at 0745, Pre-Procedure (GI) 0716 (New Bag - Prov ider: Sudha Giraldo RN)0834 (Anesthesia Volume Adjustment - Provider: Reginaldo [...] 07/2018 documented in this encounter Care Teams Lap Runner Relationship Specialty Start Date End Date Ternton Bess MD PCP - General 07/29/18 01/22/19 documented as of this encounter
--- OUTSIDE RECORDS SUMMARY | 2024-07-09 05:26 | XMS_ITS | Encounter Summary ---
Author Organization [facility] Healthcare Address [address] [place] [address] Care Team Providers Care Mapping Analyst Name Role Phone Trenton Bess MD Primary Care Provider [phone] Encounter Details Date Type Department Care Team (Late st Contact Info) Description 07/29/2018 4:40 PM VETERINARY LABORATORY DIAGNOSTICIAN Lab [facility] Advanced Medicine [facility] Advanced Medicine ([facility]) [address] [place] [address] [phone] Eliana Quevedo MD [address] [facility] [address] [place], [place] [id number] Crohn's disease of small and large intestines [...] on file Legal Sex Male 11:11 PM VETERINARY LABORATORY DIAGNOSTICIAN Gender Identity Not on file Sexual Orientation Not on file documented as of this encounter Discharge Disposition Disposition Code Departure Means Destination Discharge to home or self care documented in this encounter Plan of Treatment Not on file documented as of this encounter Procedures Procedure Name Priority Date/Time Associated Diagnosis Comments T-SPOT.TB Routine 07/29/2018 4:43 PM VETERINARY LABORATORY DIAGNOSTICIAN Crohn's disease of small and large intestines with complication (CMS/HCC) High risk medications (not anticoagulants) long-term use DIFFERENTIAL AUTO Routine 07/29/2018 4:4 3 PM VETERINARY LABORATORY DIAGNOSTICIAN Crohn's disease of small and large intestines with complication (CMS/HCC) High risk medications (not anticoagulants) long-term use CBC WITH AUTO DIFFERENTIAL Routine 07/29/2018 4:43 PM VETERINARY LABORATORY DIAGNOSTICIAN Crohn's disease of small and large intestines with complication (CMS/HCC) High risk medications (not anticoagulants) long-term use HEPATIC FUNCTION PANEL Routine 07/29/2018 4:43 PM VETERINARY LABORATORY DIAGNOSTICIAN Crohn's disease of small and large intestines with complication (CMS/HCC) High risk medications (not anticoagulants) long-term use documented in this encounter Results * Differential, auto (07/29/2018 4:43 PM VETERINARY LABORATORY DIAGNOSTICIAN) Neutrophil abs 4.8 1.7 - 6.5 K/cumm [facility] Imm gran abs 0.0 0.0 - 0.1 K/cumm [facility] Lymphocyte abs 2.9 0.8 - 3.3 K/cumm [facility] Monocyte abs 0.5 0.2 - 0.8 K/cumm [facility] Eosinophil abs 0.0 0.0 - 0.5 K/cumm [facility] Basophil abs 0.0 0.0 - 0.1 K/cumm [facility] Neutrophil pct 57.9 % [facility] Comment: Interpretive Data Percent cell count reference ranges are not reported, since discordance with absolute values may lead to misinterpretation of CBC data. Current Interpretive Data was last revised on 2017. Imm gran pct 0.4 % [facility] Comment: Interpretive Data Percent cell count reference ranges are not reported, since discordance with absolute values may lead to misinterpretation of CBC data. Current Interpretive Data was last revised on 2017. Lymphocyte pct 34.7 % [facility] Comment: Interpretive Data Percent cell count reference ranges are not reported, since discordance with absolute values may lead to misinterpretation of CBC data. Current Interpretive Data was last revised on 2017. Monocyte pct 6.0 % [facility] Comment: Interpretive Data Percent cell count reference ranges are not reported, since discordance with absolute values may lead to misinterpretation of CBC data. Current Interpretive Data was last revised on 2017. Eosinophil pct 0.6 % [facility] Comment: Interpretive Data Percent cell count reference ranges are not reported, since discordance with absolute values may lead to misinterpretation of CBC data. Current Interpretive Data was last revised on 2017. Basophil pct 0.4 % [facility] Comment: Interpretive Data Percent cell count reference ranges are not reported, since discordance with absolute values may lead to misinterpretation of CBC data. Current Interpretive Data was last revised on 2017. Blood specimen (specimen) 07/29/2018 4:43 PM VETERINARY LABORATORY DIAGNOSTICIAN 07/29/2018 5:07 PM VETERINARY LABORATORY DIAGNOSTICIAN Narrative [facility] - 07/29/2018 5:22 PM VETERINARY LABORATORY DIAGNOSTICIAN Eliana Quevedo MD LAB BLOOD ORDERABLE S Final Result [facility] Department [place] [address] * CBC with auto differential (07/29/2018 4:43 PM VETERINARY LABORATORY DIAGNOSTICIAN) WBC 8.3 3.8 - 9.9 K/cumm [facility] Hgb 13.8 13.0 - 17.5 g/dL [facility] Hct 41.3 38.9 - 50.3 % [facility] Plt 252 150 - 400 K/cumm [facility] MPV 11.1 9.1 - 12.3 fL [facility] RBC 4.64 4.30 - 5.80 M/cumm [facility] MCV 89.0 81.3 - 96.4 fL [facility] MCH 29.7 27.1 - 33.3 pg [facility] MCHC 33.4 32.3 - 35.7 g/dL [facility] RDW CV 12.8 11.1 - 14.9 % [facility] RDW SD 42.0 35.7 - 48.1 fL [facility] NRBC abs 0.00 0.00 - 0.01 K/cumm [facility] Blood specimen (specimen) 07/29/2018 4:43 PM VETERINARY LABORATORY DIAGNOSTICIAN 07/29/2018 5:07 PM VETERINARY LABORATORY DIAGNOSTICIAN Narrative [facility] - 07/29/2018 5:22 PM VETERINARY LABORATORY DIAGNOSTICIAN Eliana Quevedo MD LAB BLOOD ORDERABLE S Final Result Performing Organization Address City/[facility]/ZIP Co de Phone Number [facility] Department [place] [address] * Hepatic function panel (07/29/2018 4:43 PM VETERINARY LABORATORY DIAGNOSTICIAN) [facility] Bilirubin, total 0.5 0.1 - 1.2 mg/dL [facility] Bilirubin, direct <0.2 0.1 - 0.3 mg/dL [facility] Protein, pl 8.4 6.5 - 8.5 g/dL [facility] Albumin 4.9 3.5 - 5.0 g/dL [facility] Alk phos 89 40 - 130 Units/L [facility] ALT 32 7 - 55 Units/L [facility] AST 24 10 - 50 Units/L [facility] Blood specimen (specimen) 07/29/2018 4:43 PM VETERINARY LABORATORY DIAGNOSTICIAN 07/29/2018 5:06 PM VETERINARY LABORATORY DIAGNOSTICIAN Narrative [facility] - 07/29/2018 5:41 PM VETERINARY LABORATORY DIAGNOSTICIAN Eliana Quevedo MD LAB BLOOD ORDERABLE S Final Result Performing Organization Address City/[facility]/ZIP Co de Phone Number [facility] [place] [address] * TB test, T-SPOT (07/29/2018 4:43 PM VETERINARY LABORATORY DIAGNOSTICIAN) [facility] IFN-Gamma Release Assay TB Negative [facility] Comment: See scanned result in Medical Record. Interpretive Data Testing performed by [employer], [address] [address] Current Interpretive Data was last revised 2014 Blood specimen (specimen) 07/29/2018 4:43 PM VETERINARY LABORATORY DIAGNOSTICIAN 07/29/2018 5:14 PM VETERINARY LABORATORY DIAGNOSTICIAN Narrative [facility] - 07/31/2018 7:41 PM VETERINARY LABORATORY DIAGNOSTICIAN Eliana Quevedo MD LAB MICROBIOLOGY - GENERAL ORDERABLES Final Result [facility] [place] [address] documented in this encounter Visit Diagnoses Diagnosis Crohn's disease of small and large intestines with complication (HCC) High risk medications (not anticoagulants) long-term use Encounter for long-term (current) use of other medications documented in this encounter Care Teams Mapping Analyst Relationship Specialty Start Date End Date Trenton Bess MD PCP - General 07/29/18 01/22/19 documented as of this encounter
--- OUTSIDE RECORDS SUMMARY | 2024-07-09 05:26 | XMS_ITS | Encounter Summary ---
Author Organization [facility] Address [address] [place] [address] Phone Care Team Providers Care Compatibility Test Engineer Name Role Phone Trenton Bess MD Primary Care Provider [phone] Encounter Details Date Type Department Care Team (Late st Contact Info) Description 11/11/2018 Orders Only [facility] Gastroenterology [address] [facility] 8th [place] [address] [place] [address] Adeline Lennon, JOSH Social History Tobacco Use Types Packs/Day Years Used Date Smoking Tobacco: Never Smokeless Tobacco: Never Alcohol Use Standard Drinks/Week Comments No 0 (1 standard drink = 0.6 oz pur e alcohol) Sex and Gender Information Value Date Recorded Sex Assigned at Not on file Legal Sex Male 11:11 PM STAFFING SPECIALIST Gender Identity Not on file Sexual Orientation Not on file documented as of this encounter Plan of Treatment Not on file documented as of this encounter Visit Diagnoses Not on filedocumented in this encounter Care Teams Compatibility Test Engineer Relationship Specialty Start Date End Date Trenton Bess MD PCP - General 07/29/18 01/22/19 documented as of this encounter
--- OUTSIDE RECORDS SUMMARY | 2024-07-09 05:26 | XMS_ITS | Encounter Summary ---
Author Organization [facility] Address [address] [place] [address] Phone Care Team Providers Care Slot Floorperson Name Role Phone Trenton Bess MD Primary Care Provider [phone] Encounter Details Date Type Department Care Team (Late st Contact Info) Description 08/08/2018 Orders Only [facility] Gastroenterology [facility] 8th [place] [address] [place] [phone] Padma Mendoza RN Social History Tobacco Use Types Packs/Day Years Used Date Smoking Tobacco: Never Smokeless Tobacco: Never Alcohol Use Standard Drinks/Week Comments No 0 (1 standard drink = 0.6 oz pur e alcohol) Sex and Gender Information Value Date Recorded Sex Assigned at Not on file Legal Sex Male 11:11 PM CMO & PRESIDENT Gender Identity Not on file Sexual Orientation Not on file documented as of this encounter Ordered Prescriptions Prescription Sig Dispense Quantity Refills Last Filled Start Date End Date mercaptopurine (PURINETHOL) 50 mg tabletIndications:C rohn's Disease Take 2 tabs PO daily, labs due the weeks of:08/16;08/30 ;09/13;09/27( with metabolites ) 180 tablet 08/08/2018 11/10/2018 documented in this encounter Plan of Treatment Not on file documented as of this encounter Visit Diagnoses Not on filedocumented in this encounter Discontinued Medications Medication Sig Discontinue Reason Start Date End Da te methotrexate 2.5 mg tabletIndications:Crohn' s diseas of small and large intestines with complication Take 10 Tablets by mouth weekly all at once on the same day (Safety Labs required every 3 months for med refills due next 09/2018) Therapy completed 07/30/2018 08/08/2018 documented as of this encounter Care Teams Slot Floorperson Relationship Specialty Start Date End Date Trenton Bess MD PCP - General 07/29/18 01/22/19 documented as of this encounter
--- OUTSIDE RECORDS SUMMARY | 2024-07-09 05:26 | XMS_ITS | Encounter Summary ---
Author Organization [facility] Healthcare Address [address] [place] [address] Care Team Providers Care Obiee Lead Developer Name Role Phone Trenton Bess MD Primary Care Provider [phone] Encounter Details Date Type Department Care Team (Late st Contact Info) Description 05/12/2018 Orders Only Radiology [address] [place] [address] Norberto Huang MD [address] [facility] [address] [place] [address] Social History Tobacco Use Types Packs/Day Years Used Date Smoking Tobacco: Never Smokeless Tobacco: Never Alcohol Use Standard Drinks/Week Comments No 0 (1 standard drink = 0.6 oz pur e alcohol) Sex and Gender Information Value Date Recorded Sex Assigned at Not on file Legal Sex Male 11:11 PM SLED MAKER Gender Identity Not on file Sexual Orientation Not on file documented as of this encounter Plan of Treatment Not on file documented as of this encounter Visit Diagnoses Not on filedocumented in this encounter Care Teams Obiee Lead Developer Relationship Specialty Start Date End Date Trenton Bess MD PCP - General 04/30/17 07/24/18 documented as of this encounter
--- OUTSIDE RECORDS SUMMARY | 2024-07-09 05:27 | XMS_ITS | Encounter Summary ---
Author Organization [facility] Address [address] [place] [address] Phone Care Team Providers Care Supervisor Carpenters Name Role Phone Trenton Bess MD Primary Care Provider [phone] Encounter Details Date Type Department Care Team (Late st Contact Info) Description 02/11/2018 9:45 AM CDT Lab [facility] Oncology [address] [facility] [address] [place] [phone] Eliana Quveedo MD [address] [place] [address] Veronica Morse NP [address] [place] [address] Diarrhea, unspecified type Discharge Disposition: Discharge to home or self care Social History Tobacco Use Types Packs/Day Years Used Date Smoking Tobacco: Never Smokeless Tobacco: Never Alcohol Use Standard Drinks/Week Comments No 0 (1 standard drink = 0.6 oz pur e alcohol) Sex and Gender Information Value Date Recorded Sex Assigned at Not on file 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 Gender Identity Not on file Sexual Orientation Not on file documented as of this encounter Discharge Disposition Disposition Code Departure Means Destination Discharge to home or self care documented in this encounter Plan of Treatment Not on file documented as of this encounter Procedures Procedure Name Priority Date/Time Associated Diagnosis Comments CLOSTRIDIUM DIFFICILE TOXIN Routine 02/11/2018 9:47 AM CDT Diarrhea, unspecified type STOOL CULTURE Routine 02/11/2018 9:47 AM CDT Diarrhea, unspecified type documented in this encounter Results * Stool culture Stool (02/11/2018 9:47 AM CDT) Direct Specimen Exam Shiga Toxin Testing: Negative for: Shigatoxin of enterohemorrhagic E.coli. [facility] Comment:Testing performed by : [facility], [address] [place] [address]., [id number] Report Final Report: No Salmonella, Shigella, Aeromonas, Plesiomonas, Yersinia, Campylobacter, or E.coli 0157:H7 isolated [facility] Comment:Testing performed by : [facility], [address] [place] [address]., [id number] Stool 02/11/2018 9:47 AM CDT 02/11/2018 3:56 PM CDT Narrative [facility] - 02/15/2018 10:23 AM CDT This specimen is screened for the presence of Aeromonas, Campylobacter, E.coli-0157:H7, Plesiomonas, Salmonella, Shigella, Shiga Toxin producing E. coli, and Yersinia. Veronica Morse NP LAB MICROBIOLO GY - GENERAL ORDERABLES Final Result [facility] [id number] [facility] Department [place] [place] [address] * Clostridium difficile toxin Stool (02/11/2018 9:47 AM CDT) C Difficile Toxin A/B Negative Negative [facility] Comment:Testing performed by : [facility], [address] [place] [address]., [id number] Stool 02/11/2018 9:47 AM CDT 02/11/2018 3:56 PM CDT Narrative [facility] - 02/11/2018 5:47 PM CDT us Veronica Morse [employer] LAB MICROBIOLO GY - GENERAL ORDERABLES Final Result [facility] [address] [facility]. Department [place] [address] documented in this encounter Visit Diagnoses Diagnosis Diarrhea, unspecified type documented in this encounter Care Teams Supervisor Carpenters Relationship Specialty Start Date End Date Trenton Bess MD PCP - General 04/30/17 07/24/18 documented as of this encounter
--- OUTSIDE RECORDS SUMMARY | 2024-07-09 05:27 | XMS_ITS | Encounter Summary ---
Author Organization [facility] Address [address] [place] [address] Phone Care Team Providers Care Newborn Hearing Screener Name Role Phone Trenton Bess MD Primary Care Provider [phone] Encounter Details Date Type Department Care Team (Late st Contact Info) Description 03/25/2018 Documentation [facility] Gastroenterology [facility] 8th [place] [address] [place] [id number] Shanika Braun Social History Tobacco Use Types Packs/Day Years Used Date Smoking Tobacco: Never Smokeless Tobacco: Never Alcohol Use Standard Drinks/Week Comments No 0 (1 standard drink = 0.6 oz pur e alcohol) Sex and Gender Information Value Date Recorded Sex Assigned at Not on file 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
--- OUTSIDE RECORDS SUMMARY | 2024-07-09 05:27 | XMS_ITS | Encounter Summary ---
Author Organization [facility] Address [address] [place] [address] Phone Care Team Providers Care House Wirer Name Role Phone Trenton Bess MD Primary Care Provider [phone] Encounter Details Date Type Department Care Team (Late st Contact Info) Description 02/06/2018 Telephone [facility] Surgery [facility] 8th [place] [address] [place] [address] Margie Linda RMA Social History Tobacco Use Types Packs/Day Years Used Date Smoking Tobacco: Never Smokeless Tobacco: Never Alcohol Use Standard Drinks/Week Comments No 0 (1 standard drink = 0.6 oz pur e alcohol) Sex and Gender Information Value Date Recorded Sex Assigned at Not on file 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 Portillo, and is now having right sided abdominal pain that is radiating from his back. The pain decreases with heat, and has been decreasing his activity as it hurts to even walk. He rates the pain yesterday as a stabbing pain with a rating of 6,and today after taking tylenol it is more dull averaging at 2 out of 10. I have ordered a CT A/P toevaluate the pain, as he is having this pain even after taking pain medications, especially being post-operative. The patient was added on at [facility] today for 11:40. The patient is aware of where to go,and to stay NPO until after the scan. All patient questions were answered. documented in this encounter Plan of Treatment Not on file documented as of this encounter Visit Diagnoses Not on filedocumented in this encounter Care Teams House Wirer Relationship Specialty Start Date End Date Trenton Bess MD PCP - General 04/30/17 07/24/18 documented as of this encounter
--- OUTSIDE RECORDS SUMMARY | 2024-07-09 05:27 | XMS_ITS | Encounter Summary ---
Author Organization [facility] Address [address] [place] [address] Care Team Providers Care Professional Poker Player Name Role Phone Trenton Bess MD Primary Care Provider [phone] Encounter Details Date Type Department Care Team (Late st Contact Info) Description 04/23/2018 2:40 PM CDT Lab [facility] ([facility]) [address] [place] [id number] Crohn's disease of both small and large intestine with intestinal obstruction (CMS/HCC) Social History Tobacco Use Types Packs/Day Years Used Date Smoking Tobacco: Never Smokeless Tobacco: Never Alcohol Use Standard Drinks/Week Comments No 0 (1 standard drink = 0.6 oz pur e alcohol) Sex and Gender Information Value Date Recorded Sex Assigned at Not on file 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 Comment: For clinical assessment of response to therapy, adalimumab should be measured at trough. When adalimumab trough concentrations are greater than 5.0 mcg/mL, clinically relevant [id number] are unlikely and reflex testing will not be performed. REFERENCE VALUE Limit of Quantitation = 0.8 mcg/mL ADDITIONAL INFORMATION This test was developed and its performance characteristics determined by [facility] in a manner consistent with CLIA requirements. This test has not been cleared or approved by the U.S. Food and Drug Administration. Test Performed by: [address] [address] Blood specimen (specimen) 04/23/2018 2:53 PM CDT 04/23/2018 3:41 PM CDT Julio Cesar MILLIGAN - 04/25/2018 5:36 PM CDT Veronica Morse HOMICIDE SQUAD COMMANDING OFFICER LAB BLOOD ORDJeremie VALLEJO Final Result [facility] Department [place] [address] documented in this encounter Visit Diagnoses Diagnosis Crohn's disease of both small and large intestine with intestinal obstruction (HCC) documented in this encounter Care Teams Professional Poker Player Relationship Specialty Start Date End Date Trenton Bess MD PCP - General 04/30/17 07/24/18 documented as of this encounter
--- OUTSIDE RECORDS SUMMARY | 2024-07-09 05:27 | XMS_ITS | Encounter Summary ---
Author Organization [facility] Healthcare Address [address] [place] [address] Care Team Providers Care Data Integrity Analyst Name Role Phone Trenton Bess MD Primary Care Provider [phone] Encounter Details Date Type Department Care Team (Latest Contact Info) Description 01/11/2018 5:14 AM CDT - 01/14/2018 5:12 PM CDT Hospital Encounter [facility] [address] [place] [address] Antonio Portillo MD [address] [facility] [phone] [place] [address] Crohn's disease with complication, unspecified gastrointestinal tract location (CMS/HCC) Discharge Disposition: Discharge to home or self care Social History Tobacco Use Types Packs/Day Years Used Date Smoking Tobacco: Never Smokeless Tobacco: Never Alcohol Use Standard Drinks/Week Comments No 0 (1 standard drink = 0.6 oz pur e alcohol) Sex and Gender Information Value Date Recorded Sex Assigned at Not on file 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 Gender Identity Not on file Sexual Orientation Not on file documented as of this encounter Last Filed Vital Signs Vital Sign Reading Time Taken Comments Blood Pressure 115/59 01/14/2018 2:19 PM CDT Pulse 92 01/14/2018 2:19 PM CDT Temperature 37.3 ??C (99.1 ??F) 01/14/2018 2:19 PM CD T Respiratory Rate 18 01/14/2018 2:19 PM CDT Oxygen Saturation 98% 01/14/2018 2:19 PM CDT Inhaled Oxygen Concentration - - Weight 83 kg (183 lb) 01/11/2018 5:51 AM CDT Height 172.7 cm (5' 8 ) 01/11/2018 5:51 AM CDT Body Mass Index 27.83 01/11/2018 5:51 AM CDT documented in this encounter Discharge Summaries * Man Martínez MD - 01/14/2018 2:14 PM CDT Inpatient Discharge Summary BRIEF OVERVIEW Admitting Provider: Antonio Portillo MD Discharge Provider: Antonio Portillo* Primary Care Physician at Discharge: Trenton Bess MD [phone] Admission Date: 01/11/2018 Discharge Date: 01/14/2018 Primary Discharge Diagnosis: 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 * DETAILS OF HOSPITAL STAY Presenting Problem/History of Present Illness: 27 y/o male s/p lap ileocolic resection with takedown of ileosigmoid fistula for Crohn's. Pathway. Hospital Course: 01/12: nauseated/distended --> obstructive series. 01/14 regular diet, PO pain meds, saline locked IVF's, dispo planning Test Results Pending at Discharge: Order Current Status Surgical pathology Collected (01/11/18912) Operative Procedures Performed: Procedure(s): LAPAROSCOPIC RESECTION - ILEOCOLIC Repair Fistula - Colon Proctosigmoidoscopy Discharge Details Physical Exam at Discharge: Discharge Condition: good Pulse: 93 Resp: 18 BP: 121/70 Temp: 36.8 ??C (98.2 ??F) Weight: 83 kg (183 lb) Pertinent Exam Findings at Discharge: General: mood appropriate Neuro: alert and oriented x4 HEENT: normocephalic, atraumatic CV: regular rate Resp: unlabored GI: ecchymoses over abdomen at site of lovenox injections; surgical incision with no erythema or drainage Extremities: palpable pulses bilaterally Discharge Disposition: Discharge to home or self care Code Status at Discharge: full code Discharge Instructions: Activity Instructions Discharge Activity: Driving restrictions -Do not drive for 2 weeks or while taking pain medications. Discharge Activity: Lifting restrictions -Do NOT lift greater than 10 pounds for 4 weeks. Discharge Activity: Stairs -You may climb stairs in 2 week(s) Discharge Activity: Walking -You may walk as tolerated. Diet Instructions Adult Discharge Diet Diet Type: Return to previous diet Other Instructions Call provider for: increased temperature -Temperature greater than 101 degrees F Call provider for: nausea, vomiting, diarrhea -If you have persistent nausea, vomiting or diarrhea (more than 10 stools per day) that does not stop Call provider for: redness, tenderness, or signs of infection (pain, swelling, redness, odor or green/yellow discharge around incision site) Call provider for: severe uncontrolled pain Call provider for: any other concerns or questions Call provider if: you feel dizzy, very tired or like you may faint Care Instructions: Incisions -Keep incisions clean and dry Care Instructions: No tub baths -No tub baths, whirlpools or swimming until your provider says it's ok. Care Instructions: Shower -You may shower in 1 days Discharge Medications: Your medication list START taking these medications enoxaparin 40 mg/0.4 mL syringe Commonly known as: LOVENOX Inject 0.4 mL (40 mg total) under the skin daily for 21 days. oxyCODONE 5 mg immediate release tablet Commonly known as: ROXICODONE Take 1 tablet (5 mg total) by mouth every 6 (six) hours as needed for pain for up to 7 days. CONTINUE taking these medications balsalazide 750 mg capsule Commonly known as: COLAZAL calcium carbonate 1,500 mg (600 mg of elemental calcium) tablet Commonly known as: OS-ANA cholecalciferol 1,000 unit Commonly known as: VITAMIN D-3 ERGOCALCIFEROL (VITAMIN D2) ORAL folic acid 1 mg tablet Commonly known as: FOLVITE HUMIRA PEN 40 mg/0.8 mL pen injector kit Generic drug: adalimumab methotrexate 2.5 mg tablet multivitamin capsule neomycin 500 mg tablet Commonly known as: MYCIFRADIN Take two tablets at 1pm, 2pm, and 10pm the day before surgery. omega 7-fbq-tck-fish oil 300-1,000 mg capsule ondansetron 8 mg tablet Commonly known as: ZOFRAN Outpatient Follow-Up: Future Appointments Date Time Provider Department Center 03/15/2018 8:30 AM [facility] 05/06/2018 3:30 PM Fernando Mckeon MD [facility] Contact Information for Follow-ups Other Follow-up Next Steps: Follow up Instructions: Follow up incolorectal surgery clinic with Dr. Portillo in 4 weeks Questions: Instructions for follow-up: Follow up incolorectal surgery clinic with Dr. Portillo in 4 weeks Man Martínez MD General Surgery PGY1 Cosigned by Antonio Portillo MD at 01/15/2018 7:30 AM CDT documented in this encounter Medications at Time of Discharge multivitamin capsuleIndicatio ns:Vitamin Deficiency Prevention Take 1 capsule by mouth every morning enoxaparin (LOVENOX) 40 mg/0.4 mL syringe Inject 0.4 mL (40 mg total) under the skin daily for 21 days. 8.4 mL 01/14/2018 8 oxyCODONE (ROXICODONE) 5 mg immediate release tabletIndication s:Pain Take 1 tablet (5 mg total) by mouth every 6 (six) hours as needed for pain for up to 7 days. 28 tablet 01/14/2018 8 adalimumab (HUMIRA PEN) 40 mg/0.8 mL pen injector kit HUMIRA 40MG/0.8ML KIT. INJECT 40MG PEN SQ every 14 days1 KIT=2 BOXES/PENS( labs due again in 10/2017) 02/08/2017 8 ADALIMUMAB SUBQ Inject 40 mg under the skin once every 2 weeks. 02/09/2014 9 balsalazide (COLAZAL) 750 mg capsuleIndicatio ns:Ulcerative Colitis TAKE 3 CAPSULES 3 TIMES DAILY.( clarified script) 02/01/2017 9 calcium carbonate (OS-ANA) 1,500 mg (600 mg of elemental calcium) tablet every morning. 11/16/201705/12 9 cholecalciferol (VITAMIN D-3) 1,000 unit Take 1,000 Units by mouth every morning. 9 ERGOCALCIFEROL, VITAMIN D2, ORAL 1000 mg daily 02/06/201701/15 8 folic acid (FOLVITE) 1 mg tablet every morning. 01/25/2017 8 methotrexate 2.5 mg tablet TAKE 10 TABLETS WEEKLY.(all at once on the same day)- safety labs due every 3 months, DUE 10/201701/25/2017 8 neomycin (MYCIFRADIN) 500 mg tablet Take two tablets at 1pm, 2pm, and 10pm the day before surgery. 6 tablet 12/21/2017 8 omega 1-uob-zea-fish oil 300-1,000 mg capsule 1 capsule every morning. 11/16/2017 9 ondansetron (ZOFRAN) 8 mg tablet TAKE 1 TABLET 3 TIMES DAILY starting the day before taking the Methotrexate, the day of and the day after and thenonly as needed 09/11/2017 9 documented as of this encounter Ordered Prescriptions Prescription Sig Dispense Quantity Refills Last Filled Start Date End Date enoxaparin (LOVENOX) 40 mg/0.4 mL syringe Inject 0.4 mL (40 mg total) under the skin daily for 21 days. 8.4 mL 01/14/2018 02/04/2018 oxyCODONE (ROXICODONE) 5 mg immediate release tabletIndications: Pain Take 1 tablet (5 mg total) by mouth every 6 (six) hours as needed for pain for up to 7 days. 28 tablet 01/14/2018 01/21/2018 documented in this encounter Discharge Disposition Disposition Code Departure Means Destination Discharge to home or self [facility] documented in this encounter Progress Notes * Billie Platt RN - 01/14/2018 2:29 PM CDT 01/14/18 1427 Referral Data Referral Source [place] Referral Reason Discharge Planning Patient Information Primary Caregiver Self Support System Spouse/Significant Other Support system contact info (name, phone, availablity) spouse, Dorinda Prior Level of Functioning Durable Medical Equipment None Living Arrangement House (split level house, up 6 steps to bedroom) Potential Discharge Needs Discharge Potential no needs identified Anticipated discharge level of care Return Home Communications Fiduciary Responsibility Patient/Designated decision maker was informed of [facility] fiduciary relationship as necessary Impression:s/p ileocecectomy / sigmoid fistula repair / rigid proctoscopy??2/2 terminal ileal Crohn's w/ ileosigmoid fistula Additional Information/Options Discussed: Patient interviewed at bedside for initial assessment. Address and phone verified to face sheet. Spouse to provide support at discharge. Plan Includes: Discharge to home with no needs identified. Insurance verified as:[place] Access Admit Source:non healthcare PCP:verified as Dr. Bess Pharmacy:[facility] Based on a comprehensive family assessment, assistance with instrumental activities of daily livingafter discharge will be provided by spouse. Through the course of our work I determined that spouse possesses the skill and ability to provide and monitor the care of the patient when he or she returns home. Spouse has the capacity to provide/monitor/arrange for the care of the patient. Finally, we determined that spouse has the knowledge ofavailable resources and that combining them with their existing resources will suffice to sustain and care for the patient when he or she returns home. The treatment team is aware of this information. All are in agreement with the aftercare plan. * Billie Platt RN - 01/14/2018 2:26 PM CDT 01/14/18 0810 Discharge Summary Chart reviewed For Medical Necessity Does patient have a planned readmission to hospital planned? No Discharge Disposition Home Equipment/Provider Needs No Home Needs Identified Discharge Additional Assistance Does the patient need discharge transport arranged? No Discharge to home with no needs. to provide transport. * Man Martínez MD - 01/14/2018 10:54 AM CDT Surgery Daily Progress Note Nic Escalera : 1990 HPI: Patient is a 27 y.o. male POD#2 s/p ileocecectomy / sigmoid fistula repair / rigid proctoscopy2/2 terminal ileal Crohn's w/ ileosigmoid fistula SUBJECTIVE - no nausea, +BM, tolerating RD, POPM OBJECTIVE - abdomen soft, less distended - some hematoma bilaterally inferior portion of midline incision Recent Vitals(24hr Range): Vitals: 01/13/18 2023 01/14/18 0009 01/14/18 0625 01/14/18 0754 BP: 143/74 120/54 106/63 121/70 BP Location: Right arm Right arm Right arm Right arm Patient Position: Lying Lying Lying Pulse: 94 88 87 93 Resp: Temp: 37.2 ??C (99 ??F) 36.7 ??C (98.1 ??F) 37.2 ??C (99 ??F) 36.8 ??C (98.2 ??F) TempSrc: Oral Oral Oral Oral SpO2: 95% 94% 95% 98% Weight: Height: I and Os: Intake/Output Summary (Last 24 hours) at 01/14/18 1055 Last data filed at 01/14/18 0530 Gross per 24 hour Intake 2647 ml Output 0 ml Net 2647 ml Physical Exam: Constitutional: Appears comfortable. No acute distress. Alert and oriented x 3 Eyes: Pupils equal and reactive Resp: Good inspiratory effort, symmetric chest wall movements CVS: Regular rate and rhythm. Palpable radial pulse Abdomen: increased distentioin, appropriately tender Neuro: No focal deficits Musculoskeletal: Motor strength grossly normal all 4 extremities Skin: No rashes. No significant edema Lab/Radiology/Diagnostic Review: Recent Labs Lab Units 01/12/18214701/11/18232601/09/18 1409 SODIUM mmol/L 137 134* 141 POTASSIUM PLASMA mmol/L 4.1 4.4 4.3 CHLORIDE mmol/L 102 101 102 CO2 mmol/L 28 27 29 BUN SERUM mg/dL 8 8 18 CREATININE mg/dL 0.74* 0.89 0.85 CALCIUM mg/dL 8.5 8.5 10.0 MAGNESIUM mg/dL 2.0 -- -- Recent Labs Lab Units 01/12/18214701/11/18232601/09/18 1409 GLUCOSE mg/dL 104 135 95 Recent Labs Lab Units 01/12/18214701/11/18232601/09/18 1409 WHITE BLOOD CELLS K/cumm 10.1* 12.2* 7.9 HEMOGLOBIN g/dL 12.4* 12.8* 14.6 HEMATOCRIT % 36.6* 38.3* 42.7 PLATELETS K/cumm 203 221 248 Meds: Current Facility-Administered Medications: ??? acetaminophen (TYLENOL) tablet 1,000 mg, 1,000 mg, oral, Q8H SHIVANI, Linwood Aparicio MD, 1,000mg at 01/14/18 0400 ??? balsalazide (COLAZAL) capsule 2,250 mg, 2,250 mg, oral, TID, Linwood Aparicio MD, 2,250 mg at 01/14/18756 ??? calcium carbonate (TUMS) chewable tablet 500 mg, 200 mg of elemental calcium, oral, TID PRN, Trell Santiago MD, 500 mg at 01/12/182128 ??? enoxaparin (LOVENOX) syringe 40 mg, 40 mg, subcutaneous, Daily-2100, Linwood Aparicio MD, 40mg at 01/13/182024 ??? gabapentin (NEURONTIN) capsule 300 mg, 300 mg, oral, BID, Linwood Aparicio MD, 300 mg at 01/14/18 0756 ??? ketorolac (TORADOL) injection 30 mg, 30 mg, intravenous, Q8H SHIVANI, 30 mg at 01/14/18 075 FOLLOWED BY ibuprofen (ADVIL,MOTRIN) tablet 600 mg, 600 mg, oral, Q8H SHIVANI, Linwood Aparicio MD ??? Lactated Ringer's (LR) infusion, 125 mL/hr, intravenous, Continuous, Osiel Wilkins MD, Last Rate: 30 mL/hr at 01/13/18 1330, 30 mL/hr at 01/13/18 1330 ??? naloxone (NARCAN) 0.4 mg/mL injection 0.04-0.4 mg, 0.04-0.4 mg, intravenous, Q10 Min PRN, Esther Aparicio MD ??? ondansetron ODT (ZOFRAN-ODT) disintegrating tablet 4 mg, 4 mg, oral, Q4H PRN, Linwood Aparicio MD, 4 mg at 01/12/18418 ??? oxyCODONE (ROXICODONE) tablet 5 mg, 5 mg, oral, Q4H PRN, Man Martínez MD, 5 mg at 01/14/18 0848 ??? prochlorperazine (COMPAZINE) injection 10 mg, 10 mg, intravenous, Q6H PRN, Linwood Aparicio MD, 10 mg at 01/12/18 0826 ??? sodium chloride 0.9% flush 0.5-20 mL, 0.5-20 mL, intra-catheter, Q8H SHIVANI, Linwood Aparicio MD, 10 mL at 01/13/182024 ??? sodium chloride 0.9% flush 0.5-20 mL, 0.5-20 mL, intra-catheter, PRN, Linwood Aparicio MD ASSESSMENT Nic Escalera is a 27 y.o. male POD#2 s/p ileocecectomy / sigmoid fistula repair / rigid proctoscopy 2/2 terminal ileal Crohn's w/ ileosigmoid fistula PLAN - Continue pain control regimen - regular diet - IS - Activity: Ambulate TID - PPx: Lovenox 40mg - d/c this afternoon Man Martínez MD General Surgery Resident (PGY1) Cosigned by Antonio Portillo MD at 01/14/2018 2:16 PM CDT * Bossman Lal MD - 01/13/2018 11:44 PM CDT Surgery Daily Progress Note Nic Escalera : 1990 HPI: Patient is a 27 y.o. male POD#2 s/p ileocecectomy / sigmoid fistula repair / rigid proctoscopy2/2 terminal ileal Crohn's w/ ileosigmoid fistula SUBJECTIVE - no nausea o/n - tolerating clears - BM this AM - pain control improved (-09/08) - Zarco d/c'd - voided OBJECTIVE - abdomen soft, less distended - some hematoma bilaterally inferior portion of midline incision Recent Vitals(24hr Range): Vitals: 01/13/18 0905 01/13/18 1407 01/13/18 1750 01/13/182022 BP: 121/80 130/66 121/65 143/74 BP Location: Right arm Right arm Right arm Right arm Patient Position: Lying Lying Lying Lying Pulse: 96 96 91 94 Resp: 17 16 17 17 Temp: 37 ??C (98.6 ??F) 37.2 ??C (99 ??F) 36.7 ??C (98.1 ??F) 37.2 ??C (99 ??F) TempSrc: Oral Oral Oral Oral SpO2: 94% 94% 96% 95% Weight: Height: I and Os: Intake/Output Summary (Last 24 hours) at 01/13/182344 Last data filed at 01/13/182024 Gross per 24 hour Intake 3724 ml Output 500 ml Net 3224 ml Physical Exam: Constitutional: Appears comfortable. No acute distress. Alert and oriented x 3 Eyes: Pupils equal and reactive Resp: Good inspiratory effort, symmetric chest wall movements CVS: Regular rate and rhythm. Palpable radial pulse Abdomen: increased distentioin, appropriately tender Neuro: No focal deficits Musculoskeletal: Motor strength grossly normal all 4 extremities Skin: No rashes. No significant edema Lab/Radiology/Diagnostic Review: Recent Labs Lab Units 01/12/18214701/11/18232601/09/18 1409 SODIUM mmol/L 137 134* 141 POTASSIUM PLASMA mmol/L 4.1 4.4 4.3 CHLORIDE mmol/L 102 101 102 CO2 mmol/L 28 27 29 BUN SERUM mg/dL 8 8 18 CREATININE mg/dL 0.74* 0.89 0.85 CALCIUM mg/dL 8.5 8.5 10.0 MAGNESIUM mg/dL 2.0 -- -- Recent Labs Lab Units 01/12/18214701/11/18232601/09/18 1409 GLUCOSE mg/dL 104 135 95 Recent Labs Lab Units 01/12/18214701/11/18232601/09/18 1409 WHITE BLOOD CELLS K/cumm 10.1* 12.2* 7.9 HEMOGLOBIN g/dL 12.4* 12.8* 14.6 HEMATOCRIT % 36.6* 38.3* 42.7 PLATELETS K/cumm 203 221 248 Meds: Current Facility-Administered Medications: ??? acetaminophen (TYLENOL) tablet 1,000 mg, 1,000 mg, oral, Q8H SHIVANI, Linwood Aparicio MD, 1,000mg at 01/13/182024 ??? balsalazide (COLAZAL) capsule 2,250 mg, 2,250 mg, oral, TID, Linwood Aparicio MD, 2,250 mg at 01/13/182024 ??? calcium carbonate (TUMS) chewable tablet 500 mg, 200 mg of elemental calcium, oral, TID PRN, Trell Santiago MD, 500 mg at 01/12/182128 ??? enoxaparin (LOVENOX) syringe 40 mg, 40 mg, subcutaneous, Daily-2100, Linowod Aparicio MD, 40mg at 01/13/182024 ??? gabapentin (NEURONTIN) capsule 300 mg, 300 mg, oral, BID, Linwood Aparicio MD, 300 mg at 01/13/182024 ??? HYDROmorphone (DILAUDID) 20 mg/100 mL (0.2 mg/mL) sodium chloride 0.9% (premix), , intravenous,Continuous, Linwood Aparicio MD ??? ketorolac (TORADOL) injection 30 mg, 30 mg, intravenous, Q8H SHIVANI, 30 mg at 01/13/18 1610 FOLLOWED BY [START ON 01/14/2018] ibuprofen (ADVIL,MOTRIN) tablet 600 mg, 600 mg, oral, Q8H SHIVANI, Linwood Aparicio MD ??? Lactated Ringer's (LR) infusion, 125 mL/hr, intravenous, Continuous, Osiel Wilkins MD, Last Rate: 30 mL/hr at 01/13/18 1330, 30 mL/hr at 01/13/18 1330 ??? naloxone (NARCAN) 0.4 mg/mL injection 0.04-0.4 mg, 0.04-0.4 mg, intravenous, Q10 Min PRN, Esther Aparicio MD ??? ondansetron ODT (ZOFRAN-ODT) disintegrating tablet 4 mg, 4 mg, oral, Q4H PRN, Linwood Aparicio MD, 4 mg at 01/12/189 ??? prochlorperazine (COMPAZINE) injection 10 mg, 10 mg, intravenous, Q6H PRN, Linwood Aparicio MD, 10 mg at 01/12/18 0826 ??? sodium chloride 0.9% flush 0.5-20 mL, 0.5-20 mL, intra-catheter, Q8H SHIVANI, Linwood Aparicio MD, 10 mL at 01/13/182024 ??? sodium chloride 0.9% flush 0.5-20 mL, 0.5-20 mL, intra-catheter, PRN, Linwood Aparicio MD ASSESSMENT Nic Escalera is a 27 y.o. male POD#2 s/p ileocecectomy / sigmoid fistula repair / rigid proctoscopy 2/2 terminal ileal Crohn's w/ ileosigmoid fistula PLAN - Continue pain control regimen - d/c Entereg - regular diet - IS - Activity: Ambulate TID - PPx: Lovenox 40mg Bossman Lal MD General Surgery Resident (PGY1) [phone] Cosigned by Pollo Gibson MD at 01/14/2018 11:14 AM CDT * Linwood Velasquez MD - 01/12/2018 10:06 AM CDT Surgery Daily Progress Note Nic Escalera : 1990 HPI: Patient is a 27 y.o. male POD#1 s/p ileocecectomy / sigmoid fistula repair / rigid proctoscopy2/2 terminal ileal Crohn's w/ ileosigmoid fistula SUBJECTIVE - patient reports nausea O/N and feeling bloated OBJECTIVE Recent Vitals(24hr Range): Vitals: 01/11/18 1944 01/11/18 2317 01/12/18 0400 01/12/18 0751 BP: 118/66 121/56 127/65 117/64 BP Location: Right arm Right arm Right arm Right arm Patient Position: Lying Lying Lying Pulse: 76 78 88 90 Resp: 18 16 16 17 Temp: 37.1 ??C (98.8 ??F) 36.6 ??C (97.9 ??F) 37.2 ??C (99 ??F) 36.6 ??C (97.9 ??F) TempSrc: Oral Oral Oral Oral SpO2: 94% 96% 95% 100% Weight: Height: I and Os: Intake/Output Summary (Last 24 hours) at 01/12/18 1008 Last data filed at 01/12/18 0525 Gross per 24 hour Intake 2318 ml Output 740 ml Net 1578 ml Physical Exam: Constitutional: Appears comfortable. No acute distress. Alert and oriented x 3 Eyes: Pupils equal and reactive Resp: Good inspiratory effort, symmetric chest wall movements CVS: Regular rate and rhythm. Palpable radial pulse Abdomen: increased distentioin, appropriately tender Neuro: No focal deficits Musculoskeletal: Motor strength grossly normal all 4 extremities Skin: No rashes. No significant edema Lab/Radiology/Diagnostic Review: Recent Labs Lab Units 01/11/18232601/09/18 1409 SODIUM mmol/L 134* 141 POTASSIUM PLASMA mmol/L 4.4 4.3 CHLORIDE mmol/L 101 102 CO2 mmol/L 27 29 BUN SERUM mg/dL 8 18 CREATININE mg/dL 0.89 0.85 CALCIUM mg/dL 8.5 10.0 Recent Labs Lab Units 01/11/18232601/09/18 1409 GLUCOSE mg/dL 135 95 Recent Labs Lab Units 01/11/18232601/09/18 1409 WHITE BLOOD CELLS K/cumm 12.2* 7.9 HEMOGLOBIN g/dL 12.8* 14.6 HEMATOCRIT % 38.3* 42.7 PLATELETS K/cumm 221 248 Meds: Current Facility-Administered Medications: ??? acetaminophen (TYLENOL) tablet 1,000 mg, 1,000 mg, oral, Q8H SHIVANI, Linwood Aparicio MD, 1,000mg at 01/12/18 0419 ??? alvimopan (ENTEREG) capsule 12 mg, 12 mg, oral, BID, Linwodo Aparicio MD, 12 mg at 01/12/18 0825 ??? balsalazide (COLAZAL) capsule 2,250 mg, 2,250 mg, oral, TID, Linwood Aparicio MD, 2,250 mg at 01/12/18 0825 ??? enoxaparin (LOVENOX) syringe 40 mg, 40 mg, subcutaneous, Daily-2100, Linwood Aparicio MD, 40mg at 01/11/180 ??? gabapentin (NEURONTIN) capsule 300 mg, 300 mg, oral, BID, Linwood Aparicio MD, 300 mg at 01/12/18 0825 ??? HYDROmorphone (DILAUDID) 20 mg/100 mL (0.2 mg/mL) sodium chloride 0.9% (premix), , intravenous,Continuous, Linwood Aparicio MD, 20 mg at 01/11/18 1038 ??? ketorolac (TORADOL) injection 30 mg, 30 mg, intravenous, Q8H SHIVANI, 30 mg at 01/12/18 08 FOLLOWED BY [START ON 01/14/2018] ibuprofen (ADVIL,MOTRIN) tablet 600 mg, 600 mg, oral, Q8H SHIVANI, Linwood Aparicio MD ??? Lactated Ringer's (LR) infusion, 125 mL/hr, intravenous, Continuous, Osiel Wilkins MD ??? naloxone (NARCAN) 0.4 mg/mL injection 0.04-0.4 mg, 0.04-0.4 mg, intravenous, Q10 Min PRN, Esther Aparicio MD ??? ondansetron ODT (ZOFRAN-ODT) disintegrating tablet 4 mg, 4 mg, oral, Q4H PRN, Linwood Aparicio MD, 4 mg at 01/12/18 0419 ??? prochlorperazine (COMPAZINE) injection 10 mg, 10 mg, intravenous, Q6H PRN, Linwood Aparicio MD, 10 mg at 01/12/18 0826 ??? sodium chloride 0.9% flush 0.5-20 mL, 0.5-20 mL, intra-catheter, Q8H SHIVANI, Linwood Aparicio MD, 10 mL at 01/11/18 1316 ??? sodium chloride 0.9% flush 0.5-20 mL, 0.5-20 mL, intra-catheter, PRN, Linwood Aparicio MD ASSESSMENT Nic Escalera is a 27 y.o. 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 Pt reports TAP block may be wearing off. Mild nausea. No chest pain. No respiratory distress. Vitals Vitals: 01/11/18 1245 BP: 130/76 Pulse: 72 Resp: 16 Temp: SpO2: 98% Abdomen soft, not distended, appropriately tender to palpation. Lower midline incision and trocar incisions look good - closed with suture and dermabond. 27M s/p ileocecectomy / sigmoid fistula repair / rigid proctoscopy doing well postoperatively. - pain control w/ PLOW AND BORING MACHINE TENDER, Tylenol, vicenta, Toradol - [id number] @ 125 --> second bag at 80 - clears as tolerated - Zofran prn, Compazine prn - Entereg until ROBF - labs tonight - DVT PPx: Lovenox, SCD - ambulate as tolerated. Bossman Lal MD General Surgery Resident (PGY1) [phone] Cosigned by Antonio Portillo MD at 01/11/2018 4:22 PM CDT documented in this encounter H&P Notes * Wolfe, Ingrid Denise, MD - 01/11/2018 7:13 AM CDT I have reviewed the H&P, examined the patient, and endorse the findings as written. Plan of Care : Based on the above findings, I consider Nic Escalera to be an acceptable risk for : Procedure(s): LAPAROSCOPIC RESECTION - ILEOCOLIC Cosigned by Antonio Portillo MD at 01/11/2018 10:24 AM CDT Source Note - Antonio Portillo MD - 12/20/2017 10:45 AM CDT Colon & Rectal Surgery Note Patient: Nic Escalera : 1990 Chief complaint of terminal ileal Crohn's disease, requested to be seen by Eliana Beth* HPI: Mr. Escalera is a 27 y.o. male with terminal ileal Crohn's disease since 2004, who returns today forfollow-up and further surgical planning. He reports no change in status since his September visit. He maintains the current regimen of methotrexate, Humira, and ASA compounds. At present he is having no abdominal cramping and having 1-2 semi formed bowel movements daily. His weight remains stable. By way of review, his MRE from June demonstrated terminal ileal thickening with the suggestion of a fistula to the sigmoid colon. The ileal disease spanned approximately 8 cm in length. Subsequent colonoscopy showed normal colon mucosa throughout without inflammation. Past Medical History: Diagnosis Date ??? Crohn's disease (CMS/HCC) Past Surgical History: Procedure Laterality Date ??? COLONOSCOPY 2017 (Not in a hospital admission) Allergies Allergen Reactions ??? Flagyl [Metronidazole] Other (See comments) Neuropathy Social History Substance Use Topics ??? Smoking status: Former Smoker ??? Smokeless tobacco: Never Used ??? Alcohol use No Family History Problem Relation Age of Onset ??? Hypertension Mother Family history of hypertension - (Added by TW Conv) ??? Kidney failure Mother Family history of renal failure - (Added by TW Conv) ??? Hypertension Father Family history of hypertension - (Added by TW Conv) ??? Ulcerative colitis Mother's Sister Review of Systems: Refer to scanned media, dated 12/20/2017 Vitals: Arrival Vitals [12/20/17 1037] Temp 36.6 ??C (97.8 ??F) Pulse 64 Resp BP 130/94 SpO2 Temp src Heart Rate Source Patient Position BP Location FiO2 (%) Physical exam: Appearance - well developed, well nourished Orientation - alert and oriented x 3 Eyes - anicteric Neuro - non-focal Lungs - no wheezing Cardiac - regular rate and rhythm Extremities - within normal limits grossly Inguinal Nodes - no adenopathy Abdomen - soft nontender nondistended. Lab/Radiology/Diagnostic Review: Imaging review: I have independently examined the MRI images from June image(s). My findings are As described above Assessment & Plan: (K50.813) Crohn's disease of both small and large intestine with fistula (CMS/HCC) (primary encounter diagnosis) I again discussed the surgical option of laparoscopic ileocecectomy. Patient understands there is ahigher than average risk of conversion to an open procedure given the possible fistula to the colon. The other risks of surgery including not limited to bleeding, infection, anastomotic leak, need for further surgery or procedures, possible ostomy, and medical complications were all discussed. He understands Crohn's is a lifelong disease and may recur following surgery. He will undergo a full bowel prep and referral to CPAP prior to surgery. All questions were answered. Antonio Portillo MD 12/20/2017 12:53 PM * Antonio Portillo MD - 01/11/2018 7:00 AM CDT I have reviewed the H&P, examined the patient, and endorse the findings as written. Plan of Care : Based on the above findings, I consider Nic Escalera to be an acceptable risk for : Procedure(s): LAPAROSCOPIC RESECTION - ILEOCOLIC Source Note - Antonio Portillo MD - 12/20/2017 10:45 AM CDT Colon & Rectal Surgery Note Patient: Nic Escalera : 1990 Chief complaint of terminal ileal Crohn's disease, requested to be seen by Eliana Beth* HPI: Mr. Escalera is a 27 y.o. male with terminal ileal Crohn's disease since 2004, who returns today forfollow-up and further surgical planning. He reports no change in status since his September visit. He maintains the current regimen of methotrexate, Humira, and ASA compounds. At present he is having noabdominal cramping and having 1-2 semi formed bowel movements daily. His weight remains stable. By way of review, his MRE from June demonstrated terminal ileal thickening with the suggestion of afistula to the sigmoid colon. The ileal disease spanned approximately 8 cm in length. Subsequent colonoscopy showed normal colon mucosa throughout without inflammation. Past Medical History: Diagnosis Date ??? Crohn's disease (CMS/HCC) Past Surgical History: Procedure Laterality Date ??? COLONOSCOPY 2016 (Not in a hospital admission) Allergies Allergen Reactions ??? Flagyl [Metronidazole] Other (See comments) Neuropathy Social History Substance Use Topics ??? Smoking status: Former Smoker ??? Smokeless tobacco: Never Used ??? Alcohol use No Family History Problem Relation Age of Onset ??? Hypertension Mother Family history of hypertension - (Added by TW Conv) ??? Kidney failure Mother Family history of renal failure - (Added by TW Conv) ??? Hypertension Father Family history of hypertension - (Added by TW Conv) ??? Ulcerative colitis Mother's Sister Review of Systems: Refer to [employer] media, dated 12/20/2017 Vitals: Arrival Vitals [12/20/17 1037] Temp 36.6 ??C (97.8 ??F) Pulse 64 Resp BP 130/94 SpO2 Temp src Heart Rate Source Patient Position BP Location FiO2 (%) Physical exam: Appearance - well developed, well nourished Orientation - alert and oriented x 3 Eyes - anicteric Neuro - non-focal Lungs - no wheezing Cardiac - regular rate and rhythm Extremities - within normal limits grossly Inguinal Nodes - no adenopathy Abdomen - soft nontender nondistended. Lab/Radiology/Diagnostic Review: Imaging review: I have independently examined the MRI images from June image(s). My findings are As described above Assessment & Plan: (K50.813) Crohn's disease of both small and large intestine with fistula (CMS/HCC) (primary encounter diagnosis) I again discussed the surgical option of laparoscopic ileocecectomy. Patient understands there is ahigher than average risk of conversion to an open procedure given the possible fistula to the colon. The other risks of surgery including not limited to bleeding, infection, anastomotic leak, need for further surgery or procedures, possible ostomy, and medical complications were all discussed. He understands Crohn's is a lifelong disease and may recur following surgery. He will undergo a full bowel prep and referral to CPAP prior to surgery. All questions were answered. Antonio Portillo MD 12/20/2017 12:53 PM documented in this encounter Procedure Notes * Moe Pemberton MD - 01/11/2018 7:17 AM CDT Procedures OPERATIVE NOTE: Name: Nic Escalera : 1990 Date of Transversus Abdominis Plane Block: 01/11/2018 Attending Surgeon: Sukhi Chao MD Veterinary Medicine Scientist: Moe Pemberton MD Procedure: Transversus Abdominus Plane (TAP) block with ultrasound - Bilateral. Pre-procedural Diagnosis: Acute Postoperative Pain Abdominal Pain After Surgery Post-procedural Diagnosis: Acute Postoperative Pain Abdominal Pain After Surgery Indication for Procedure: Abdominal Pain Informed consent was obtained for TAP nerve block for postoperative pain control. Timeout was performed. The patient was placed in supine position, and the appropriate areas on the abdomen were sterilized with chlorhexidine scrub. The ultrasound probe was then prepped into the field in sterile fashion. A 21 gauge 4-inch insulated needle was inserted on the right side under ultrasound guidance using in-plane technique. After negative aspiration, 30 mL of 0.25% Bupivicaine was injected. No complications. The above was repeated on the contralateral side without complications. Image: Printed and to be scanned into chart Moe Pemberton M.D. Fellow, Pain Management, Department of Anesthesiology [facility], [facility] Pain Management [place] 01/11/2018 7:17 AM Attending: [x] I was present for and participated in the above procedure. Cosigned by Sukhi Chao MD at 01/11/2018 9:02 AM CDT Associated attestation - Sukhi Chao MD - 01/11/2018 9:02 AM CDT I was present for the entire procedure. Sukhi Chao MD documented in this encounter Miscellaneous Notes * Plan of Care - Jossy Easton RN - 01/14/2018 4:07 PM CDT Goals: Clinical Goals for the Shift: Bladder/Voiding ??? STG - Patient demonstrates ability to take care of indwelling catheter Progressing Bowel Elimination ??? STG - Patient will verbalize signs and symptoms of constipation and how to prevent/alleviate Progressing Health Behavior: ??? Understanding of discharge needs will improve Progressing Lack of Knowledge: ??? Ability to identify pain intensity on a pain scale and rate it consistently will improve Progressing Medication: ??? Satisfaction with pain management regimen will improve Progressing Skin Integrity: ??? Complications related to the disease process, condition or treatment will be avoided or minimized Progressing Summary: * Plan of Care - Jossy Easton RN - 01/14/2018 3:11 PM CDT Goals: Clinical Goals for the Shift: Bladder/Voiding ??? STG - Patient demonstrates ability to take care of indwelling catheter Progressing Bowel Elimination ??? STG - Patient will verbalize signs and symptoms of constipation and how to prevent/alleviate Progressing Health Behavior: ??? Understanding of discharge needs will improve Progressing Lack of Knowledge: ??? Ability to identify pain intensity on a pain scale and rate it consistently will improve Progressing Medication: ??? Satisfaction with pain management regimen will improve Progressing Skin Integrity: ??? Complications related to the disease process, condition or treatment will be avoided or minimized Progressing Summary: * Plan of Care - Yael Keating RN - 01/14/2018 2:48 AM CDT Bladder/Voiding ??? STG - Patient demonstrates ability to take care of indwelling catheter Progressing Bowel Elimination ??? STG - Patient will verbalize signs and symptoms of constipation and how to prevent/alleviate Progressing Health Behavior: ??? Understanding of discharge needs will improve Progressing Lack of Knowledge: ??? Ability to identify pain intensity on a pain scale and rate it consistently will improve Progressing Medication: ??? Satisfaction with pain management regimen will improve Progressing Skin Integrity: ??? Complications related to the disease process, condition or treatment will be avoided or minimized Progressing Goals: Clinical Goals for the Shift: pain control Summary: Patient's pain is controlled with the PLOW AND BORING MACHINE TENDER. Patient up ad jade, voiding, having bowel movements. * Plan of Care - Johanny Campos RN - 01/13/2018 4:27 PM CDT Goals: Clinical Goals for the Shift: Summary: Pt is A and O x 4 this shift. Pt c/o abd pain -- field artillery fire control man is infusing as ordered. Pt is UAL. Pt's lungs are clear and BS are present. Pt is ambulating in the halls this shift. Pt's lower ML abd incision is c/d/i. The area around the incision is purple and bruised. Pt's IVFs are infusing via #18g in his LFA. Pt's L hand IV is SL. No edema noted. Will continue to monitor. Bladder/Voiding ??? STG - Patient demonstrates ability to take care of indwelling catheter Progressing Bowel Elimination ??? STG - Patient will verbalize signs and symptoms of constipation and how to prevent/alleviate Progressing Health Behavior: ??? Understanding of discharge needs will improve Progressing Lack of Knowledge: ??? Ability to identify pain intensity on a pain scale and rate it consistently will improve Progressing Medication: ??? Satisfaction with pain management regimen will improve Progressing Skin Integrity: ??? Complications related to the disease process, condition or treatment will be avoided or minimized Progressing * Plan of Care - Yael Keating RN - 01/13/2018 12:13 AM CDT Bladder/Voiding ??? STG - Patient demonstrates ability to take care of indwelling catheter Progressing Bowel Elimination ??? STG - Patient will verbalize signs and symptoms of constipation and how to prevent/alleviate Progressing Health Behavior: ??? Understanding of discharge needs will improve Progressing Lack of Knowledge: ??? Ability to identify pain intensity on a pain scale and rate it consistently will improve Progressing Medication: ??? Satisfaction with pain management regimen will improve Progressing Skin Integrity: ??? Complications related to the disease process, condition or treatment will be avoided or minimized Progressing Goals: Pain control. Summary: Patient's pain is being controlled with PLOW AND BORING MACHINE TENDER at a 2 out of 10. Patient has a deep purple bruise at lower abd. MD Santiago was notified. Also, patient complains of heart burn so Tums was given as well. * Plan of Care - Haley Calle RN - 01/12/2018 3:15 PM CDT Bladder/Voiding ??? STG - Patient demonstrates ability to take care of indwelling catheter Progressing Bowel Elimination ??? STG - Patient will verbalize signs and symptoms of constipation and how to prevent/alleviate Progressing Health Behavior: ??? Understanding of discharge needs will improve Progressing Lack of Knowledge: ??? Ability to identify pain intensity on a pain scale and rate it consistently will improve Progressing Medication: ??? Satisfaction with pain management regimen will improve Progressing Skin Integrity: ??? Complications related to the disease process, condition or treatment will be avoided or minimized Progressing Goals: void after zarco is dc'd, pain control, ambulate halls, safety. Summary: chest/abd xray completed, ambulated halls, zarco dcd, pain controlled with licensing analyst, cont to monitor, maintain safety. * Plan of Care - Yael Keating RN - 01/12/2018 1:52 AM CDT Bladder/Voiding ??? STG - Patient demonstrates ability to take care of indwelling catheter Progressing Bowel Elimination ??? STG - Patient will verbalize signs and symptoms of constipation and how to prevent/alleviate Progressing Health Behavior: ??? Understanding of discharge needs will improve Progressing Lack of Knowledge: ??? Ability to identify pain intensity on a pain scale and rate it consistently will improve Progressing Medication: ??? Satisfaction with pain management regimen will improve Progressing Skin Integrity: ??? Complications related to the disease process, condition or treatment will be avoided or minimized Progressing Goals: Pain control. Nausea control. Ambulation. Summary: Patient is having a hard time controlling his pain when he wakes up from sleep because he is behind on pushing the PLOW AND BORING MACHINE TENDER button. Had nausea at the beginning of the shift. No ambulation this shift. * Plan of Care - Lexie Chu RN - 01/11/2018 6:11 PM CDT Health Behavior: ??? Understanding of discharge needs will improve Progressing Lack of Knowledge: ??? Ability to identify pain intensity on a pain scale and rate it consistently will improve Progressing Medication: ??? Satisfaction with pain management regimen will improve Progressing Skin Integrity: ??? Complications related to the disease process, condition or treatment will be avoided or minimized Progressing Goals: Summary: pain control * Op Note - Antonio Portillo MD - 01/11/2018 7:30 AM CDT Operative Report SURGEON Antonio Portillo MD SURGICAL TEAM Surgeon(s) and Role: * Antonio Portillo MD - Primary * Linwood Aparicio MD - Fellow DATE OF SURGERY 01/11/2018 PREOPERATIVE DIAGNOSIS Terminal ileal Crohn's disease POSTOPERATIVE DIAGNOSIS Terminal ileal Crohn's disease with fistula to the sigmoid colon PROCEDURE 1. Laparoscopic ileocecectomy 2. Repair of sigmoid fistula 3. Rigid proctoscopy ANESTHESIA General INDICATION FOR PROCEDURE Mr. Escalera is a 27 y.o. male who was referred for terminal ileal Crohn's disease, refractory to medical management. Preoperative MRI was suggestive of a fistula to the sigmoid colon, however colonoscopy was normal. He was counseled on the risks of surgery and agreed to proceed. OPERATIVE FINDINGS 12 cm of Crohn's disease involving the terminal ileum, with fistulization to the sigmoid colon. No evidence of disease elsewhere. DESCRIPTION OF PROCEDURE The patient was taken to the operating room and underwent induction with general endotracheal anesthesia. Low lithotomy position was established with Yellowfin stirrups. A Zarco catheter was sterilely inserted. The hair of the abdomen was removed with clippers, prepped with ChloraPrep, and sterilely draped including an Ioban dressing. The patient received ertapenem 1 g intravenously prior to the procedure and a time-out was performed. Using a Juarez technique, a 12 mm balloon tip trocar was placed infraumbilically. The fascia was entered without event. The abdomen was insufflated and thoroughly inspected. Findings were as above. Under direct visualization, 5 mm trocars were placed in the suprapubic and left lower quadrant positions and an additional trocar was placed in the left upper quadrant.The patient was placed in steep Trendelenburg and right side rotated upwards. The omentum was retracted over the transverse colon andthe small bowel packed into the left upper quadrant. The fistula to the sigmoid colon was identified at the level of the pelvic brim. This was taken down using a combination of blunt dissection and Ligasure. The interloop adhesions to the mesentery were also freed. The cecum was mobilized inferiorly and laterally from its peritoneal attachments. The right ureter was identified at the pelvic brim and kept protected. The lateral peritoneal attachments were mobilized to the level of the distal ascending colon. A medial to lateral approach on the ileocolic artery was undertaken using the LigaSure bipolar device. The duodenum was identified within the retroperitoneum, reduced, and kept protected throughout the remainder of the operation. Dissection continued along the retroperitoneal plane to the greatest extent cephalad and laterally as possible. A window was made superior to the ileocolic artery and itwas divided using sequential woods from the LigaSure. Hemostasis was excellent. The remaining retroperitoneal attachments were bluntly dissected through this window. The remainder of the operation was done through a lower midline laparotomy incision. A wound protector was placed. The cecum was grasped and retracted through the incision. The ileum was divided disease segment, approximately 16 cm from the ileocecal valve using a RITA 80 mm blue load stapler. The remaining ileal mesentery was divided with the LigaSure. A suitable site for transection in the ascending colon was identified and the colon was divided with the same stapler. The scant amount of colonic mesentery was similarly taken with the bipolar device and the specimen passed off the field. The site of the fistula in the sigmoid colon was inspected. There is no evidence of entry into the lumen of the colon. A series of 3 0 Vicryl Lembert sutures were placed to imbricate the fistula site. Rigid proctoscopy with insufflation of the colon was performed. There was no evidence of leakage of gas under water at the repair site. A [id number] functional end-to-end double stapled anastomosis was created between the terminal ileum and the proximal transverse colon. The common staple line was performed with the 80 mm RITA stapler along the anti mesenteric aspect of both bowel limbs. Hemostasis was inspected along the staple line. The staple lines were offset and the colotomy closed with a single firing of the TA 60 stapler.Dirty instruments and gloves were discarded. Three 0 Vicryl suture was used to reinforce the stapleline crotch as well as to Lembert over the common staple line dog ears. The anastomosis was returned to the abdomen and covered with omentum. The abdomen was irrigated with a L of warm saline. Spongeand needle counts were confirmed correct. The fascia was closed using running looped 1. PDS. The subcutaneous tissues were irrigated and the skin reapproximated with 4-0 Monocryl subcuticular suture and skin glue at all locations. Patient was awakened, extubated and taken to PACU in stable condition. Estimated Blood Loss 150 Urine output 500 mls Intraoperative Fluids 1100 mls Blood/Blood Products Transfused None Specimens Cecum & ileum Condition on Discharge from the operating room was stable Date: 01/11/2018 Time: 9:40 AM TEACHING ATTESTATION : I was present and I participated in all portions of the procedure except skin closure and remained immediately available during all remaining portions of the case. Antonio Portillo MD instructor decorating Section of Colon & Rectal Surgery [facility] [employer] [phone] documented in this encounter Plan of Treatment Not on file documented as of this encounter Procedures Procedure Name Priority Date/Time Associated Diagnosis Comments DIFFERENTIAL AUTO Timed 01/12/2018 9:48 PM CDT CBC WITH AUTO DIFFERENTIAL Timed 01/12/2018 9:48 PM CDT MAGNESIUM Timed 01/12/2018 9:48 PM CDT BASIC METABOLIC PANEL Timed 01/12/2018 9:48 PM CDT XR ABDOMEN 2 VIEWS W CHEST 1 VIEW IP Routine 01/12/2018 1:36 PM CDT CBC WITHOUT DIFFERENTIAL Routine 018 11:27 PM CDT BASIC METABOLIC PANEL Routine 01/11/2018 11:27 PM CDT SURGICAL PATHOLOGY Routine 01/11/2018 9:09 AM CDT Crohn's disease with complication, unspecified gastrointestinal tract location (CMS/HCC) PROCTOSIGMOIDOSCOPY 01/11/2018 7:30 AM CDT Crohn's disease with complication, unspecified gastrointestinal tract location (CMS/HCC) REPAIR FISTULA - COLON 8 7:30 AM CDT Crohn's disease with complication, unspecified gastrointestinal tract location (CMS/HCC) LAPAROSCOPIC RESECTION - ILEOCOLIC 01/11/2018 7:30 AM CDT Crohn's disease with complication, unspecified gastrointestinal tract location (CMS/HCC) TYPE AND SCREEN STAT 01/11/2018 5:42 AM CDT documented in this encounter Results * (ABNORMAL) Differential, auto (01/12/2018 9:48 PM CDT) Neutrophil abs 5.9 1.7 - 6.5 K/cumm [facility] Imm gran abs 0.0 0.0 - 0.1 K/cumm [facility] Lymphocyte abs 3.4(H) 0.8 - 3.3 K/cumm [facility] Monocyte abs 0.7 0.2 - 0.8 K/cumm [facility] Eosinophil abs 0.1 0.0 - 0.5 K/cumm [facility] Basophil abs 0.0 0.0 - 0.1 K/cumm [facility] Neutrophil pct 58.1 % [facility] Comment: Interpretive Data Percent cell count reference ranges are not reported, since discordance with absolute values may lead to misinterpretation of CBC data. Current Interpretive Data was last revised on 2017. Imm gran pct 0.2 % [facility] Comment: Interpretive Data Percent cell count reference ranges are not reported, since discordance with absolute values may lead to misinterpretation of CBC data. Current Interpretive Data was last revised on 2017. Lymphocyte pct 34.1 % [facility] Comment: Interpretive Data Percent cell count reference ranges are not reported, since discordance with absolute values may lead to misinterpretation of CBC data. Current Interpretive Data was last revised on 2017. Monocyte pct 6.7 % [facility] Comment: Interpretive Data Percent cell count reference ranges are not reported, since discordance with absolute values may lead to misinterpretation of CBC data. Current Interpretive Data was last revised on 2017. Eosinophil pct 0.6 % [facility] Comment: Interpretive Data Percent cell count reference ranges are not reported, since discordance with absolute values may lead to misinterpretation of CBC data. Current Interpretive Data was last revised on 2017. Basophil pct 0.3 % [facility] Comment: Interpretive Data Percent cell count reference ranges are not reported, since discordance with absolute values may lead to misinterpretation of CBC data. Current Interpretive Data was last revised on 2017. Blood specimen (specimen) 01/12/2018 9:48 PM CDT 01/12/2018 10:20 PM CDT Narrative [facility] - 01/12/2018 10:27 PM CDT us Antonio Portillo MD LAB BLOOD ORDERABLES Final Result [facility] Department [place] [address] * Magnesium (01/12/2018 9:48 PM CDT) Magnesium 2.0 1.4 - 2.5 mg/dL [facility] Blood specimen (specimen) 01/12/2018 9:48 PM CDT 01/12/2018 10:20 PM CDT Narrative [facility] - 01/12/2018 10:50 PM CDT Antonio Portillo MD LAB BLOOD ORDERABLES Final Result [facility] Department [place] [address] * (ABNORMAL) Basic metabolic panel (01/12/2018 9:48 PM CDT) Pathologist [facility] Sodium 137 135 - 145 mmol/L [facility] Potassium, pl 4.1 3.3 - 4.9 mmol/L [facility] Chloride 102 97 - 110 mmol/L [facility] CO2 28 22 - 32 mmol/L [facility] Anion gap 7 2 - 15 mmol/L [facility] BUN 8 8 - 25 mg/dL [facility] Creatinine 0.74(L) 0.80 - 1.30 mg/dL [facility] Glucose 104 70 - 199 mg/dL [facility] Comment: Interpretive Data Fasting glucose >/= [...] interpretive data was last revised 2017. Calcium 8.5 8.5 - 10.3 mg/dL [facility] Blood specimen (specimen) 01/12/2018 9:48 PM CDT 01/12/2018 10:20 PM CDT Narrative [facility] - 01/12/2018 10:50 PM CDT Antonio Portillo MD LAB BLOOD ORDERABLES Final Result Performing Organization Address City/[facility]/ZIP Co de Phone Number [facility] Department [place] [address] * (ABNORMAL) CBC with auto differential (01/12/2018 9:48 PM CDT) [facility] WBC 10.1(H) 3.8 - 9.9 K/cumm [facility] Hgb 12.4(L) 13.0 - 17.5 g/dL [facility] Hct 36.6(L) 38.9 - 50.3 % [facility] Plt 203 150 - 400 K/cumm [facility] MPV 10.4 9.1 - 12.3 fL [facility] RBC 3.96(L) 4.30 - 5.80 M/cumm [facility] MCV 92.4 81.3 - 96.4 fL [facility] MCH 31.3 27.1 - 33.3 pg [facility] MCHC 33.9 32.3 - 35.7 g/dL [facility] RDW CV 12.5 11.1 - 14.9 % [facility] RDW SD 42.4 35.7 - 48.1 fL [facility] NRBC abs 0.00 0.00 - 0.01 K/cumm [facility] Blood specimen (specimen) 01/12/2018 9:48 PM CDT 01/12/2018 10:20 PM CDT Narrative [facility] - 01/12/2018 10:27 PM CDT Antonio Portillo MD LAB BLOOD ORDERABLES Final Result Performing Organization Address [facility]/ZIP Co de Phone Number [facility] Department [place] [address] * XR Abdomen 2 Views W Chest 1 View (01/12/2018 1:36 PM CDT) Anatomical Region Laterality Modality Body, Abdomen N/A Computed Radiogr aphy 01/13/2018 5:09 AM CDT Impressions 01/13/2018 5:09 AM CDT There is bibasilar atelectasis. There is a linear Crossin under the right hemidiaphragm likely representing a small amount of pneumoperitoneum. ??This likely is related to the patient's recent surgery which was performed on 01/11/2018. There are gas-filled loops of large and small bowel that may represent an underlying adynamic ileus. ??Staple line is noted in the right abdomen. Electronically signed by: Kiran Dinero M.D., MPH Narrative 01/13/2018 5:09 AM CDT EXAMINATION: Obstructive series with chest. Procedure Note Kiran Dinero MD - 01/13/2018 EXAMINATION: Obstructive series with chest. IMPRESSION: There is bibasilar atelectasis. There is a linear Crossin under the right hemidiaphragm likely representing a small amount of pneumoperitoneum. This likely is related to the patient's recent surgery which was performed on 01/11/2018. There are gas-filled loops of large and small bowel that may represent an underlying adynamic ileus. Staple line is noted in the right abdomen. Electronically signed by: Kiran Dinero M.D., MPH Antonio Portillo MD IMG XR PROCEDURES Fi nal Result * (ABNORMAL) Basic metabolic panel (01/11/2018 11:27 PM CDT) Sodium 134(L) 135 - 145 mmol/L [facility] Potassium, pl 4.4 3.3 - 4.9 mmol/L [facility] Chloride 101 97 - 110 mmol/L [facility] CO2 27 22 - 32 mmol/L [facility] Anion gap 6 2 - 15 mmol/L [facility] BUN 8 8 - 25 mg/dL [facility] Creatinine 0.89 0.80 - 1.30 mg/dL [facility] Glucose 135 70 - 199 mg/dL [facility] Comment: Interpretive Data Fasting glucose >/= [...] interpretive data was last revised 2017. Calcium 8.5 8.5 - 10.3 mg/dL [facility] Blood specimen (specimen) 01/11/2018 11:27 PM CDT 01/12/2018 12:01 AM CDT Narrative [facility] - 01/12/2018 12:40 AM CDT us Antonio Portillo MD LAB BLOOD ORDERABLES Final Result [facility] Department [place] [address] * (ABNORMAL) CBC without differential (01/11/2018 11:27 PM CDT) WBC 12.2(H) 3.8 - 9.9 K/cumm [facility] Hgb 12.8(L) 13.0 - 17.5 g/dL [facility] Hct 38.3(L) 38.9 - 50.3 % [facility] Plt 221 150 - 400 K/cumm [facility] MPV 10.1 9.1 - 12.3 fL [facility] RBC 4.14(L) 4.30 - 5.80 M/cumm [facility] MCV 92.5 81.3 - 96.4 fL [facility] MCH 30.9 27.1 - 33.3 pg [facility] MCHC 33.4 32.3 - 35.7 g/dL [facility] RDW CV 12.4 11.1 - 14.9 % [facility] RDW SD 41.9 35.7 - 48.1 fL [facility] NRBC abs 0.00 0.00 - 0.01 K/cumm [facility] Blood specimen (specimen) 01/11/2018 11:27 PM CDT 01/12/2018 12:01 AM CDT Narrative [facility] - 01/12/2018 12:12 AM CDT Antonio Portillo MD LAB BLOOD ORDERABLES Final Result [facility] Department [place] [address] * Surgical pathology (01/11/2018 9:09 AM CDT) Tissue (Small bowel, resection non- tumor) 01/11/2018 9:09 AM CDT Comment:CROHN[employer]UD[employer] Narrative PATHOLOGY [facility] - 01/16/2018 5:59 PM CDT EPIC results best viewed via link to PDF [facility] [place] [address] SURGICAL PATHOLOGY REPORT FINAL Patient Name: ?? NIC ESCALERA Gender: ??M : ??1990 (Age: 27) Address: ??[address] [place] [address] ??[id number] Hospital #: ??[id number] Taken:01/11/2018 Received:01/11/2018 Reported: 01/16/2018 Patient Type: [facility] Inpatient ?? Service: Surgery Location: [place] [address] Physician(s): ??Antonio Portillo M.D. Diagnosis: Small and large bowel, terminal ileum and cecum, ileocolic resection ? - Crohn's disease, with areas of ulceration, marked transmural chronic inflammation, hypertrophic muscularis propria, and submucosal and serosal fibrosis; no dysplasia - Resection margins viable and uninvolved - Appendix with fibrous obliteration of the tip ? - No malignancy, including in twenty-two regional lymph nodes ms01/16/2018 17:59 By this signature, I attest that the above diagnosis is based upon my personal examination of the slides(and/or other material indicated in the diagnosis). Ce Crump M.D. Report Electronically Reviewed and Signed Out By ??Ce Crump M.D. 01/16/2018 17:59:26 Microscopic Description and Comment: Microscopic examination substantiates the above cited diagnosis. History: The patient is a 27-year-old man with Crohn's disease consultation. ??Operative procedure: Laparoscopic resection ileocolic. Specimen(s) Received: A: Ileum and cecum Gross Description: The specimen is received in one formalin filled container labeled with the patient's name and ileum and cecum. ??It contains a 21.2 cm segment of intestine composed of terminal ileum (13.2 cm in length by 1.6 cm in diameter) and colon (8.0 cm in length by 3.4 cm in diameter). ??Attached to the cecum is an unremarkable 6.7 cm in length by 0.6 cm in diameter appendix. ??The serosal surface is wolfe-pink smooth glistening and remarkable for a single area of adhesions with a 1.7 cm diameter defect in the terminal ileum. ??The attached mesentery and pericolic adipose tissue are unremarkable. ??The segment is opened to show an ulcerated and strictured area at the ileocecal valve 8.2 cm from the proximal resection margin and 7.6 cm from the distal resection margin. ??The ulcerated and strictured area is sectioned to show a lesion with a maximum lesional thickness of 1.0 cm that extends into the muscularis propria and is 2.2 cm from the nearest mesenteric margin. ??The colonic mucosa is grossly unremarkable. Identified within the mesentery and pericolic adipose tissue are multiple lymph nodes. ??Labeled A1 - proximal resection margin; A2 - distal resection margin; A3 ??defect; A4 to A6 - entire tumor; A7 - nearest mesenteric margin; A8 - ileocecal valve; A9 - unremarkable mucosa; A10 ??appendix; A11 to A21 - lymph nodes. ??Jar 3. cnewho/01/14/2018 16:09 SHANTELLE [place], CT (ASCP By this signature, I attest that the above diagnosis is based upon my personal examination of the slides(and/or other material). The performance characteristics of some immunohistochemical stains, fluorescence in-situ hybridization tests and immunophenotyping by flow cytometry cited in this report (if any) were determined by the Surgical Pathology Department at [facility] as part of an ongoing air quality manager program and in compliance with federally mandated regulations drawn from the Clinical Laboratory Improvement Act of 1988 (CLIA '88). ??Some of these tests rely on the use of analyte specific reagents and are subject to specific labeling requirements by the US Food and Drug Administration. ??Such diagnostic tests may only be performed in a facility that is certified by the Department of Health and Human Services as a high complexity laboratory under CLIA '88. ??The FDA has determined that such clearance or approval is not necessary. ??This test is used for clinical purposes. ??It should not be regarded as investigational or for research. ??Nevertheless, federal rules concerning the medical use of analyte specific reagents require that the following disclaimer be attached to the report: This test was developed and its performance characteristics determined by the Surgical Pathology Department of [facility]. ??It has not been cleared or approved by the U. S. Food and Drug Administration. IMAGES AND SCANNED DOCUMENTS, IF INCLUDED, ONLY VIEWABLE IN PDF VERSION OF REPORT Antonio Portillo MD LAB PATHOLOGY ORDERA BLES Final Result PATHOLOGY [facility] 3rd Floor [place], [place] [phone] * Type and screen (01/11/2018 5:42 AM CDT) Bulmaro, indirect Negative [facility] ABO Rh A Positive [facility] Blood specimen (specimen) 01/11/2018 5:42 AM CDT 01/11/2018 6:07 AM CDT Narrative [facility] - 01/11/2018 7:21 AM CDT Has the patient had Daratumumab (Darzalex) in the past 6 months?->Unknown us Carmelina Syed NP LAB BLOOD BANK TEST ORDER YOSELYN Final Result [facility] Department [place] [address] documented in this encounter Visit Diagnoses Diagnosis Crohn's disease with complication (HCC)- Primary Crohn's disease with complication, unspecified gastrointestinal tract location (HCC) Acute postoperative pain Other acute postoperative pain Generalized abdominal pain Abdominal pain, generalized documented in this encounter Admitting Diagnoses Diagnosis Crohn's disease with complication (HCC) documented in this encounter Administered Medications Inactive Administered Medications - up to 3 most recent administrations Medication Order MAR Action Action Date Dose Rate Site acetaminophen (TYLENOL) tablet 1,000 mg 1,000 mg, oral, Every 8 hours scheduled, First dose on Sun01/11/18 at 1315, For 5 days, Administer at 4:00, 12:00, 20:00 post-op day 1., Indications: PainIndications:Pain Given 01/14/2018 12:03 PM CDT 1,000 mg Given 01/14/2018 4:00 AM CDT 1,000 mg Given 01/13/2018 8:25 PM CDT 1,000 mg acetaminophen (TYLENOL) tablet 975 mg 975 mg (rounded from 1,000 mg), oral, Once, On Sun01/11/18 at 0800, For 1 dose, Pre-Op, Give upon arrival to holding area. , Indications: Pre-Emptive AnalgesiaIndications:Pre-Emptive Analgesia Given 01/11/2018 6:05 AM CDT 9 75 mg alvimopan (ENTEREG) capsule 12 mg 12 mg, oral, Once, On Sun01/11/18 at 0800, For 1 dose, Pre-Op, Give immediately upon arrival to holding area (do not prescribe if patient is currently receiving chronic opioid treatment). , Indications: Postoperative Ileus, Postoperative ileus prophylaxisIndications:Postoperative Ileus,Postoperative ileus prophylaxis Given 01/11/2018 6:05 AM CDT 12 mg alvimopan (ENTEREG) capsule 12 mg 12 mg, oral, 2 times daily, First dose on Sun01/12/18 at 0900, For 7 days, Discontinue after first postoperative bowel Movement., Indications: Postoperative IleusIndications:Postoperative Ileus Given 01/13/2018 9:25 AM CDT 12 mg Given 01/12/2018 8:44 PM CDT 12 mg Given 01/12/2018 8:25 AM CDT 12 mg balsalazide (COLAZAL) capsule 2,250 mg 2,250 mg, oral, 3 times daily, First dose on Sun01/12/18 at 0900, Indications: Ulcerative ColitisIndications:Ulcerative Colitis Given 01/14/2018 7:57 AM CDT 2,250 mg Given 01/13/2018 8:25 PM CDT 2,250 mg Given 01/13/2018 4:10 PM CDT 2,250 mg calcium carbonate (TUMS) chewable tablet 500 mg 500 mg (200 mg of elemental calcium), oral, 3 times daily PRN, heartburn, Starting on 01/12/18 at 2117 Given 01/12/2018 9:29 PM CDT 500 mg dextrose 5% and sodium chloride 0.45% with potassium chloride 20 mEq/L premix infusion 125 mL/hr, intravenous, Continuous, Starting on Sun01/11/18 at 1100, For 8 hours, Phase I & Post-op Floor New Bag 01/11/2018 10:36 AM CDT 125 mL/hr 125 mL /hr dextrose 5% and sodium chloride 0.45% with potassium chloride 20 mEq/L premix infusion 80 mL/hr, intravenous, Continuous, Starting on Sun01/11/18 at 1836, For 12 hours, Phase I & Post-op Floor, Saline lock after 1 liters total. New Bag 01/12/2018 6:23 PM CDT 80 mL/hr 80 m L/hr New Bag 01/11/2018 9:49 PM CDT 80 mL/hr 80 mL/hr New Bag 01/11/2018 6:47 PM CDT 80 mL/hr 80 mL/hr enoxaparin (LOVENOX) syringe 40 mg 40 mg, subcutaneous, Daily (for enoxaparin), First dose on Sun01/11/18 at 2100, Indications: Deep Vein Thrombosis PreventionIndications:Deep Vein Thrombosis Prevention Given 01/13/2018 8:25 PM CDT 40 mg Left Lower Abdomen Given 01/12/2018 8:44 PM CDT 40 mg Le ft Lower Abdomen Given 01/11/2018 9:40 PM CDT 40 mg Le ft Lower Abdomen gabapentin (NEURONTIN) capsule 300 mg 300 mg, oral, Once, On Sun01/11/18 at 0800, For 1 dose, Pre-Op, Give upon arrival to holding area. , Indications: Pre-Emptive AnalgesiaIndications:Pre-Emptive Analgesia Given 01/11/2018 6:10 AM CDT 3 00 mg gabapentin (NEURONTIN) capsule 300 mg 300 mg, oral, 2 times daily, First dose on Sun01/11/18 at 1315 Given 01/14/2018 7:56 AM CDT 300 mg Given 01/13/2018 8:25 PM CDT 300 mg Given 01/13/2018 9:25 AM CDT 300 mg heparin 5,000 unit/mL injection 5,000 Units 5,000 Units, subcutaneous, Once, On Sun01/11/18 at 0800, For 1 dose, Pre-Op, Can give immediately after neuraxial block if no complications per anesthesia., Indications: Deep Vein Thrombosis PreventionIndications:De ep Vein Thrombosis Prevention Given 01/11/2018 7:23 AM CDT 5,000 Units Right Lower Abdomen HYDROmorphone (DILAUDID) 20 mg/100 mL (0.2 mg/mL) sodium chloride 0.9% (premix) Continuous dose: None, PLOW AND BORING MACHINE TENDER dose: 0.2 mg, PLOW AND BORING MACHINE TENDER lockout: 10 Minutes, 1 hour limit: Other / 1.2 mg, intravenous, Continuous, Starting on Sun01/11/18 at 1100, Until Sun01/14/18 at 0750, 100 mL, Indications: Pain, RoutineIndications:Pain New Syringe/Cartridg e 01/12/2018 10:46 PM CDT New Syringe/Cartridge 01/11/2018 10:38 AM CDT 20 mg ibuprofen (ADVIL,MOTRIN) tablet 600 mg 600 mg, oral, 3 times daily PRN, 2nd line for pain, Starting on Sun01/14/18 at 1257, Indications: PainIndications:Pain ketorolac (TORADOL) injection 30 mg 30 mg, intravenous, Every 8 hours scheduled, First dose on Sun01/11/18 at 1600, For 9 doses, First dose to be given morning after surgery 08:00, 16:00, 24:00, Indications: Postoperative Acute PainIndications:Postoperative Acute Pain Given 01/14/2018 7:57 AM CDT 30 mg Given 01/13/2018 11:43 PM CDT 30 mg Given 01/13/2018 4:10 PM CDT 30 mg Lactated Ringer's (LR) infusion 30 mL/hr, intravenous, Continuous, Starting on Sun01/11/18 at 0800, Pre-Op New Bag 01/11/2018 6:06 AM CDT 30 mL/hr 30 mL/hr Lactated Ringer's (LR) infusion 125 mL/hr, intravenous, Continuous, Starting on Sun01/11/18 at 1100, Phase I Rate/Dose Change 01/13/2018 1:30 PM CDT 30 mL/hr 30 mL/hr New Bag 01/13/2018 5:53 AM CDT 125 mL/hr 125 mL/hr New Bag 01/12/2018 10:45 PM CDT 125 mL/hr 125 mL/hr ondansetron ODT (ZOFRAN-ODT) disintegrating tablet 4 mg 4 mg, oral, Every 4 hours PRN, nausea, vomiting, Starting on Sun01/11/18 at 1239 Given 01/12/2018 4:19 AM CDT 4 mg Given 01/11/2018 7:47 PM CDT 4 mg Given 01/11/2018 2:28 PM CDT 4 mg oxyCODONE (ROXICODONE) tablet 5 mg 5 mg, oral, Every 4 hours PRN, 2nd line for pain, Starting on Sun01/14/18 at 0749, Indications: PainIndications:Pain Given 01/14/2018 8:48 AM CDT 5 mg prochlorperazine (COMPAZINE) injection 10 mg 10 mg, intravenous, Every 6 hours PRN, nausea, vomiting, Starting on Sun01/11/18 at 1239, If not relieved by ondansetron within 30 minutes., Indications: Nausea and VomitingIndications:Nausea and Vomiting Given 01/12/2018 8:26 AM CDT 10 m g sodium chloride 0.9% flush 0.5-20 mL 0.5-20 mL, intra-catheter, Every 8 hours scheduled, First dose on Sun01/11/18 at 1400, Flush volume based on line type and size. , Indications: FlushingIndications:Flushing Given 01/13/2018 8:25 PM CDT 10 mL Given 01/13/2018 1:25 PM CDT 10 mL Given 01/12/2018 2:03 PM CDT 10 mL documented in this encounter Active and Recently Administered Medications Times are shown in CDT. Scheduled Medication Order 01/12/2018 01/13/201801/1401/14/2018 acetaminophen (TYLENOL) tablet 1,000 mg 1,000 mg, oral, Every 8 hours scheduled, First dose on Sun01/11/18 at 1315, For 5 days, Administer at 4:00, 12:00, 20:00 post-op day 1., Indications: Pain 0419 (Given - Provider: Yael Keating RN)1252 (Given - Provider: Felicity Naik RN)204 (Given - Provider: Yael Keating RN) 0430 (Not Given - Provider: Yael Keating RN - Reason: Patient/family refused)1328 (Given - Provider: Yael Junior)202 (Given - Provider: Yael Keating RN) 0400 (Given - Provider: Yael Keating RN)1203 (Given - Provider: Jossy Easton RN - Comment: scanner brokern;not in room) alvimopan (ENTEREG) capsule 12 mg (CANCELED) 12 mg, oral, 2 times daily, First dose on 01/12/18 at 0900, For 7 days, Discontinue after first postoperative bowel Movement., Indications: Postoperative Ileus 0825 (Given - Provider: Haley Calle RN)2043 (Given - Provider: Yael Keating RN) 0925 (Given - Provider: Yael Junior) balsalazide (COLAZAL) capsule 2,250 mg 2,250 mg, oral, 3 times daily, First dose on 01/12/18 at 0900, Indications: Ulcerative Colitis 0825 (Given - Provider: Haley Calle RN)1816 (Given - Provider: Haley Calle RN)2043 (Not Given - Provider: Yael Keating RN - Reason: Patient/family refused) 0925 (Given - Provider: Yael Junior)1610 (Given - Provider: Yael Junior)2024 (Given - Provider: Yael Keating RN) 0757 (Given - Provider: Jossy Easton RN - Comment: scanner not in room; floor is ordering new scanner.)1600 (Due) enoxaparin (LOVENOX) syringe 40 mg 40 mg, subcutaneous, Daily (for enoxaparin), First dose on Sun01/11/18 at 2100, Indications: Deep Vein Thrombosis Prevention 2043 (Given - Provider: Yael Keating RN) 2024 (Given - Provider: Yael Keating RN) gabapentin (NEURONTIN) capsule 300 mg 300 mg, oral, 2 times daily, First dose on Sun01/11/18 at 1315 0825 (Given - Provider: Haley Calle RN)2044 (Given - Provider: Yael Keating RN) 0925 (Given - Provider: Yael Junior)202 (Given - Provider: Yael Keating RN) 0756 (Given - Provider: Jossy Easton RN) ketorolac (TORADOL) injection 30 mg 30 mg, intravenous, Every 8 hours scheduled, First dose on Sun01/11/18 at 1600, For 9 doses, First dose to be given morning after surgery 08:00, 16:00, 24:00, Indications: Postoperative Acute Pain 0825 (Given - Provider: Haley Calle RN)1816 (Given - Provider: Haley Calle RN)2313 (Given - Provider: Yael Keating RN) 0928 (Given - Provider: Yael Junior)1610 (Given - Provider: Yael Junior)2343 (Given - Provider: Yael Keating RN) 0757 (Given - Provider: Jossy Easton RN - Comment: scanner not in room;floor is ordering new scanner) sodium chloride 0.9% flush 0.5-20 mL 0.5-20 mL, intra-catheter, Every 8 hours scheduled, First dose on Sun01/11/18 at 1400, Flush volume based on line type and size. , Indications: Flushing 0600 (Not Given - Provider: Yael Keating RN - Reason: Other)1403 (Given - Provider: Haley Calle RN)204 (Not Given - Provider: Yael Keating RN - Reason: Other) 0430 (Not Given - Provider: Yael Keating RN - Reason: Other)1325 (Given - Provider: Yael Junior)202 (Given - Provider: Yael Keating RN) 0416 (Not Given - Provider: Yael Keating RN - Reason: Other)1507 (Not Given - Provider: Jossy Easton RN - Reason: Other - Comment: Pt getting discharged; IV removed) Continuous Medication Order 01/12/2018 01/13/2018 01/14/2018 dextrose 5% and sodium chloride 0.45% with potassium chloride 20 mEq/L premix infusion ()(Linked Group 1) 80 mL/hr, intravenous, Continuous, Starting on Sun01/11/18 at 1836, For 12 hours, Phase I & Post-op Floor, Saline lock after 1 liters total. 1823 (New Bag - Provider: Haley Calle RN) HYDROmorphone (DILAUDID) 20 mg/100 mL (0.2 mg/mL) sodium chloride 0.9% (premix) (CANCELED) Continuous dose: None, PLOW AND BORING MACHINE TENDER dose: 0.2 mg, PLOW AND BORING MACHINE TENDER lockout: 10 Minutes, 1 hour limit: Other / 1.2 mg, intravenous, Continuous, Starting on Sun01/11/18 at 1100, Until Sun01/14/18 at 0750, 100 mL, Indications: Pain, Routine 2246 (New Syringe/Cartridge - Provider: Yael Keating RN) 0848 (Stopped (Dual Sign) - Provider: Jossy Easton RN) Lactated Ringer's (LR) infusion 125 mL/hr, intravenous, Continuous, Starting on Sun01/11/18 at 1100, Phase I 2245 (New Bag - Provider: Yael Keating RN) 0553 (New Bag - Provider: Yael Keating RN)1330 (Rate/Dose Change - Provider: Yael Junior) PRN Medication Order 01/12/2018 01/13/2018 01/14/2018 calcium carbonate (TUMS) chewable tablet 500 mg 500 mg (200 mg of elemental calcium), oral, 3 times daily PRN, heartburn, Starting on Sun01/12/18 at 6497 2129 (Given - Provider: Yael Keating RN) ibuprofen (ADVIL,MOTRIN) tablet 600 mg(Linked Group 2) 600 mg, oral, 3 times daily PRN, 2nd line for pain, Starting on Sun01/14/18 at 1257, Indications: Pain naloxone (NARCAN) 0.4 mg/mL injection 0.04-0.4 mg 0.04-0.4 mg, intravenous, Every 10 min PRN, other, excessive sedation/respiratory depression, Starting on Sun01/11/18 at 1015, Phase I & Post-op Floor, Dilute 0.4 mg with 9 mL NS (final concentration 0.04 mg/mL). For respiratory depression (respiratory rate less than 6), administer 0.4 mg IVP over 30 seconds. For excessive sedation administer 0.04 mg (1 mL) every 1 minute until desired level of alertness. Stop PLOW AND BORING MACHINE TENDER and notify covering MD. This order has been ordered with PLOW AND BORING MACHINE TENDER infusion, please review upon the discontinuation of PLOW AND BORING MACHINE TENDER., Indications: Opioid Toxicity ondansetron ODT (ZOFRAN-ODT) disintegrating tablet 4 mg 4 mg, oral, Every 4 hours PRN, nausea, vomiting, Starting on Sun01/11/18 at 1239 0419 (Given - Provider: Yael Keating RN) oxyCODONE (ROXICODONE) tablet 5 mg 5 mg, oral, Every 4 hours PRN, 2nd line for pain, Starting on Sun01/14/18 at 0749, Indications: Pain 0848 (Given - Provid er: Jossy Easton RN - Comment: scanner broken;not in room) prochlorperazine (COMPAZINE) injection 10 mg 10 mg, intravenous, Every 6 hours PRN, nausea, vomiting, Starting on Sun01/11/18 at 1239, If not relieved by ondansetron within 30 minutes., Indications: Nausea and Vomiting 0826 (Given - Provider: Haley Calle, JOSH) sodium chloride 0.9% flush 0.5-20 mL 0.5-20 mL, intra-catheter, As needed, line care, Starting on Sun01/11/18 at 1239, Flush volume based on line type and size. Flush before and after each use. , Indications: Flushing Linked Groups Order Group 1: dextrose 5% and sodium chloride 0.45% with potassium chloride 20 mEq/L premix infusion () 125 mL/hr, intravenous, Continuous, Starting on Sun01/11/18 at 1100, For 8 hours, Phase I & Post-op Floor Followed by dextrose 5% and sodium chloride 0.45% with potassium chloride 20 mEq/L premix infusion ()Jump to med 80 mL/hr, intravenous, Continuous, Starting on Sun01/11/18 at 1836, For 12 hours, Phase I & Post-op Floor, Saline lock after 1 liters total. Group 2: ibuprofen (ADVIL,MOTRIN) tablet 600 mgJump to med 600 mg, oral, 3 times daily PRN, 2nd line for pain, Starting on Sun01/14/18 at 1257, Indications: Pain documented in this encounter Orders Medications Ordered That Nilo ht Not Have Been Administered Count Last Ordered Date First Ordered Date ibuprofen (ADVIL,MOTRIN) tablet 600 mg 2 01/11/2018 bupivacaine (MARCAINE) 0.25 % (2.5 mg/mL) preservative free injection 1 01/11/2018 ertapenem (INVANZ) 1000 mg i n 50 mL sodium chloride 0.9% (premix) 1 01/11/2018 fentaNYL (SUBLIMAZE) preserv ative free injection 50 mcg 1 01/11/2018 haloperidol (HALDOL) injection 1 mg 1 01/11 HYDROmorphone (DILAUDID) injection 0.2 mg 1 01/11/2018 HYDROmorphone (DILAUDID) injection 0.4 mg 1 01/11/2018 naloxone (NARCAN) 0.4 mg/mL injection 0.04-0.4 mg 2 01/11/2018 ondansetron ODT (ZOFRAN-ODT) disintegrating tablet 8 mg 1 01/11/2018 sodium chloride 0.9 % irrigation 1 01/12/20 18 sodium chloride 0.9% flush 0.5-20 mL 3 12/30 Diet Count Last Ordered Date First Orde red Date ADULT DISCHARGE DIET 1 01/14/2018 Nursing Count Last Ordered Date First Orde red Date DISCHARGE ACTIVITY 4 01/14/2018 DISCHARGE CALL PROVIDER 6 01/14/2018 DISCHARGE DRESSING 3 01/14/2018 OTHER FOLLOW UP 1 01/14/2018 ZARCO CATHETER - DISCONTINUE 2 01/12/2018 Admission Count Last Ordered Date First Orde red Date ASSIGN PATIENT STATUS 1 01/11/2018 Transfer Count Last Ordered Date First Orde red Date TRANSFER PATIENT 1 01/11/2018 documented in this encounter Care Teams Data Integrity Analyst Relationship Specialty Start Date End Date Trenton Bess MD PCP - General 04/30/17 07/24/18 documented as of this encounter
--- OUTSIDE RECORDS SUMMARY | 2024-07-09 05:27 | XMS_ITS | Encounter Summary ---
Author Organization [facility] Address [address] [place] [address] Phone Care Team Providers Care Call Center Support Consultant Name Role Phone Trenton Bess MD Primary Care Provider Reason for Visit * Reason Comments Post-op wound check Encounter Details Date Type Department Care Team (Late st Contact Info) Description 01/22/2018 1:45 PM CDT Office Visit [facility] Surgery [facility] [address] [place] [id number] Crohn's disease of both small and large intestine with fistula (CMS/HCC) (Primary Dx) Social History Tobacco Use Types Packs/Day Years Used Date Smoking Tobacco: Never Smokeless Tobacco: Never Alcohol Use Standard Drinks/Week Comments No 0 (1 standard drink = 0.6 oz pur e alcohol) Sex and Gender Information Value Date Recorded Sex Assigned at Not on file 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 ?? Chief Complaint: Nic Teran is here for wound check, status post laparoscopic ileocolic resection and repair of sigmoid fistula on 01/11/[address] Antonio Portillo. ?? HPI: Patient is 11 days from surgery. He is eating well, he is having 1-2 bowel movements daily that aresoft and easy to pass He has no abdominal complaints. He states his appetite is back to normal. ?? Patient has no wound complaints other than minimal bleeding. ?? He is no longer taking narcotic pain medication. He is only using NSAIDs PRN. ?? Assessment and Plan: Mr. Teran comes in today for wound check. His lower midline incision is intact with glue. His port sites are also dry and intact with glue. I gave him reassurance that the incision looks well. He is keeping an ABD pad on the area as a precautionary measure. He will keep scheduled follow up with Dr. Portillo on 02/07/2018. He knows to call with questions or concerns. documented in this encounter Plan of Treatment Not on file documented as of this encounter Visit Diagnoses Diagnosis Crohn's disease of both small and large intestine with fistula (HCC)- Primary documented in this encounter Care Teams Call Center Support Consultant Relationship Specialty Start Date End Date Trenton Bess MD PCP - General 04/30/17 07/24/18 documented as of this encounter
--- OUTSIDE RECORDS SUMMARY | 2024-07-09 05:27 | XMS_ITS | Encounter Summary ---
Author Organization [facility] Address [address] [place] [address] Phone Care Team Providers Care Manufacturing Helper Name Role Phone Trenton Bess MD Primary Care Provider [phone] Encounter Details Date Type Department Care Team (Late st Contact Info) Description 01/15/2018 Telephone [facility] Gastroenterology [facility] 8th [place] [address] [place] [address] Shanika Braun Social History Tobacco Use Types Packs/Day Years Used Date Smoking Tobacco: Never Smokeless Tobacco: Never Alcohol Use Standard Drinks/Week Comments No 0 (1 standard drink = 0.6 oz pur e alcohol) Sex and Gender Information Value Date Recorded Sex Assigned at Not on file 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 Pt's verbalized understanding * Telephone Encounter - Eliana Quevedo MD - 01/15/2018 9:40 AM CDT 2 weeks after surgery he can restart the humira - start at his previous dose, no induction * Telephone Encounter - Shanika Braun - 01/15/2018 9:04 AM CDT Pt's LM stating pt had abdominal surgery with Dr. Portillo on 01/11/18 and was just d/c to home. Asking when the pt's can start taking his Humira? Below is what surgery was done PROCEDURE 1. Laparoscopic ileocecectomy 2. Repair of sigmoid fistula 3. Rigid proctoscopy documented in this encounter Plan of Treatment Not on file documented as of this encounter Visit Diagnoses Not on filedocumented in this encounter Care Teams Manufacturing Helper Relationship Specialty Start Date End Date Trenton Bess MD PCP - General 04/30/17 07/24/18 documented as of this encounter
--- OUTSIDE RECORDS SUMMARY | 2024-07-09 05:27 | XMS_ITS | Encounter Summary ---
Author Organization [facility] Address [address] [place] [address] Phone Care Team Providers Care Supervisor Matrix Name Role Phone Trenton Bess MD Primary Care Provider [phone] Encounter Details Date Type Department Care Team (Late st Contact Info) Description 02/07/2018 10:45 AM CDT Office Visit [facility] Surgery [address] [facility] [address]th [place] [address] [place] [address] Antonio Portillo MD [address] 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 Gender Identity Not on file Sexual Orientation Not on file documented as of this encounter Last Filed Vital Signs Vital Sign Reading Time Taken Comments Blood Pressure 117/72 02/07/2018 11:09 AM CDT Pulse 85 02/07/2018 11:09 AM CDT Temperature 36.6 ??C (97.9 ??F) 02/07/2018 1 1:09 AM CDT Respiratory Rate - - Oxygen Saturation - - Inhaled Oxygen Concentration - - Weight 80.2 kg (176 lb 12.8 oz) 018 11:09 AM CDT Height - - Body Mass Index 26.88 01/11/2018 5:51 AM CDT documented in this encounter Progress Notes * Antonio Portillo MD - 02/07/2018 10:45 AM CDT Colon & Rectal Surgery Note Patient: Nic Teran : 1990 SUBJECTIVE: Chief complaint of postop follow-up for Crohn's, originally referred by Eliana Beth* HPI: Mr. Teran is a 27 y.o. male who is s/p lap assisted ileocecectomy with repair of sigmoid fistula 1 month ago. Patient had an anticipated routine postop course until approximately 1 week ago when hedeveloped worsening right-sided abdominal pain. A CT scan was obtained and I personally reviewed these images. This shows thickening of the neoterminal ileum and some mild stranding around the anastom osis, consistent with a Crohn's flare. He was started on mesalamine and ciprofloxacin and his symptoms have significantly improved. He still having 4 diarrheal bowel movements daily but his pain is much less. He denies any fevers or chills. He is tolerating a regular diet. Patient is also continuing on Humira and his next dose is due tomorrow. The patient's pathology showed active Crohn's disease with areas of ulceration and transmural inflammation. The resection margins were microscopically viable and uninvolved. There was no evidence of malignancy. Review of Systems: No significant changes except as noted above. Vitals: Vitals: 02/07/18 1109 BP: 117/72 Pulse: 85 Temp: 36.6 ??C (97.9 ??F) Physical exam: Appearance - well developed, well nourished Orientation - alert and oriented x 3 Eyes - anicteric Neuro - non-focal Abdomen - soft, nondistended, minimally tender in the right mid abdomen. Well- healed midline incision. If indicated, a gender-appropriate wash box operator was present for the exam. Assessment & Plan: (K50.819) Crohn's disease of small and large intestines with complication (CMS/HCC) (primary encounter diagnosis) The patient is clinically improved since starting mesalamine and antibiotics, and his Humira dosingis returning back to his normal interval. He was advised to follow up with his jockey room custodian. He will contact my office if abdominal pain recurs or he develops worsening diarrhea. All questions answered. Antonio Portillo MD, FACS, FASCRS quality control lab technician Section of Colon & Rectal Surgery [facility] [phone] 02/07/2018 11:37 AM Dictated note was generated using voice-psychologist engineering technology and some variance may result. documented in this encounter Plan of Treatment Not on file documented as of this encounter Visit Diagnoses Diagnosis Crohn's disease of small and large intestines with complication (HCC)- Primary documented in this encounter Care Teams Supervisor Matrix Relationship Specialty Start Date End Date Trenton Bess MD PCP - General 04/30/17 07/24/18 documented as of this encounter
--- OUTSIDE RECORDS SUMMARY | 2024-07-09 05:27 | XMS_ITS | Encounter Summary ---
Author Organization [facility] Address [address] [place] [address] Care Team Providers Care Quality Compliance Manager Name Role Phone Trenton Bess MD Primary Care Provider [phone] Encounter Details Date Type Department Care Team (Late st Contact Info) Description 04/23/2018 3:15 PM CDT Lab [facility] Advanced 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
--- OUTSIDE RECORDS SUMMARY | 2024-07-09 05:27 | XMS_ITS | Encounter Summary ---
Author Organization [facility] Address [address] [place] [address] Phone Care Team Providers Care Construction Job Cost Estimator Name Role Phone Trenton Bess MD Primary Care Provider [phone] Encounter Details Date Type Department Care Team (Late st Contact Info) Description 01/15/2018 Orders Only [facility] Gastroenterology [address] [facility] 8th [place] [address] [place] [address] Shanika Braun Social History Tobacco Use Types Packs/Day Years Used Date Smoking Tobacco: Never Smokeless Tobacco: Never Alcohol Use Standard Drinks/Week Comments No 0 (1 standard drink = 0.6 oz pur e alcohol) Sex and Gender Information Value Date Recorded Sex Assigned at Not on file 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
--- OUTSIDE RECORDS SUMMARY | 2024-07-09 05:27 | XMS_ITS | Encounter Summary ---
Author Organization [facility] Address [address] [place] [address] Phone Care Team Providers Care Home Health Speech Therapist Name Role Phone Trenton Bess MD Primary Care Provider [phone] Encounter Details Date Type Department Care Team (Late st Contact Info) Description 02/18/2018 Telephone [facility] Gastroenterology [address] [place] [address] 8th [place] [address] [place] [phone] Shanika Braun Social History Tobacco Use Types Packs/Day Years Used Date Smoking Tobacco: Never Smokeless Tobacco: Never Alcohol Use Standard Drinks/Week Comments No 0 (1 standard drink = 0.6 oz pur e alcohol) Sex and Gender Information Value Date Recorded Sex Assigned at Not on file Legal Sex Male 11:[address] CLERK Gender Identity Not on file Sexual Orientation Not on file documented as of this encounter Miscellaneous Notes * Telephone Encounter - Shanika Braun - 02/18/2018 3:50 PM CDT Entered in error documented in this encounter Plan of Treatment Not on file documented as of this encounter Visit Diagnoses Not on filedocumented in this encounter Care Teams Home Health Speech Therapist Relationship Specialty Start Date End Date Trenton Bess MD PCP - General 04/30/17 07/24/18 documented as of this encounter
--- OUTSIDE RECORDS SUMMARY | 2024-07-09 05:27 | XMS_ITS | Encounter Summary ---
Author Organization [facility] Address [address] [place] [address] Phone Care Team Providers Care Switchgear Repairer Name Role Phone Trenton Bess MD Primary Care Provider [phone] Encounter Details Date Type Department Care Team (Late st Contact Info) Description 04/04/2018 Orders Only [facility] Gastroenterology [address] [facility] 8th [place] [address] [place] [address] Shanika Braun Crohn's disease of both small and large intestine with complication (CMS/HCC) Social History Tobacco Use Types Packs/Day Years Used Date Smoking Tobacco: Never Smokeless Tobacco: Never Alcohol Use Standard Drinks/Week Comments No 0 (1 standard drink = 0.6 oz pur e alcohol) Sex and Gender Information Value Date Recorded Sex Assigned at Not on file 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
--- OUTSIDE RECORDS SUMMARY | 2024-07-09 05:27 | XMS_ITS | Encounter Summary ---
Author Organization [facility] Address [address] [place] [address] Phone Care Team Providers Care Professor Of Psychiatry Name Role Phone Trenton Bess MD Primary Care Provider [phone] Encounter Details Date Type Department Care Team (Latest Contact Info) Description 03/15/2018 8:30 AM CDT Office Visit [facility] Gastroenterology [address] [facility] Medicine 8th [place] [address] [place] [address] Veronica Morse, BARTENDER MANAGER [address] [place] [address] Crohn's disease of both small and large intestine with intestinal obstruction (CMS/HCC) (Primary Dx); Diarrhea due to malabsorption Social History Tobacco Use Types Packs/Day Years Used Date Smoking Tobacco: Never Smokeless Tobacco: Never Alcohol Use Standard Drinks/Week Comments No 0 (1 standard drink = 0.6 oz pur e alcohol) Sex and Gender Information Value Date Recorded Sex Assigned at Not on file 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 Gender Identity Not on file Sexual Orientation Not on file documented as of this encounter Last Filed Vital Signs Vital Sign Reading Time Taken Comments Blood Pressure 120/81 03/15/2018 8:36 AM CDT Pulse 88 03/15/2018 8:36 AM CDT Temperature 36.7 ??C (98 ??F) 03/15/2018 8:36 AM CDT Respiratory Rate - - Oxygen Saturation - - Inhaled Oxygen Concentration - - Weight 80.2 kg (176 lb 12.8 oz) 03/15/2018 8:36 AM CDT Height 172.7 cm (5' 8 ) 03/15/2018 8:36 AM CDT Body Mass Index 26.88 03/15/2018 8:36 AM CDT documented in this encounter Patient Instructions * Patient Instructions* Padma Mendoza RN - 03/15/2018 8:30 AM CDT documented in this encounter Progress Notes * Veronica Morse NP - 03/15/2018 8:30 AM CDT Reason for visit: Follow-up for stricturing Crohn's disease after recent surgery Problem 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 Phenotype and distribution: Stricturing Primarily involving the ileum with some concern for fistulizing disease though no evidence of fistula penetrating colon lumen during surgery in 2018 Medical therapies: Previously treated with prednisone for at least 2 continuous years, flagyl, Asacol, Azathioprine ([id number]), Remicade ([id number], switched for insurance purposes), Humira ([id number], 6-month insurance interruption, re- initiation 10/2016, with [...] status: Prevnar 01/25/2017, Pneumovax 05/17/2017, Tdap 02/09/2014 HPI: Nic Teran is a 27 y.o. male with a past medical history of ileocolonic Crohn's disease dating back to 2004 currently maintained on methotrexate and Humira who presents today for follow-up after recent interventions to reduce his stool frequency. Patient was last seen on 02/11/2018 at which time he reported having had an uncomplicated ileocecectomy on 01/11/2018. He had restarted his medications approximately 2 weeks after his procedure. He had 1 episode of severe abdominal pain with fever. He was given Cipro and balsalazide. The pain seemed to resolve but he complained of foul-smelling stools 4 to 5 times a day with some burning. It was advised that his diarrhea was likely related to his recent surgery and that generally the bowel willadapt with time. He was encouraged to try benefiber, Imodium, and Colestid to control his stools. We also discussed possibly checking his Humira levels if he had any difficulty with anticipation. Patient presents today reporting that he is now taking 1 Colestid, 1 Imodium and 1 Levsin 1st thingin the morning and with this he has stools that are more solid approximately 2 to 3 times a day. Overall he feels better but had sharp pain in his right lower quadrant the day before his last Humira shot. It resolved within 2-3 days. He states that he is compliant with his methotrexate. He is very w orried about needing further surgery if his disease cannot be well controlled. He states that he regrets switching from Remicade to Humira for convenience as he believes he has never had as much control as when he was on Remicade. Review of Systems: On complete review of systems, all other systems are negative. Allergies Allergen Reactions ??? Flagyl [Metronidazole] Other (See comments) Neuropathy Current Outpatient Prescriptions Medication Sig Dispense Refill ??? adalimumab (HUMIRA PEN) 40 mg/0.8 mL pen injector kit HUMIRA 40MG/0.8ML KIT. INJECT 40MG PEN SQevery 14 days1 KIT=2 BOXES/PENS( labs due again in 10/2017) ??? balsalazide (COLAZAL) 750 mg capsule TAKE 3 CAPSULES 3 TIMES DAILY.( clarified script) ??? calcium carbonate (OS-ANA) 1,500 mg (600 mg of elemental calcium) tablet every morning. ??? cholecalciferol (VITAMIN D-3) 1,000 unit Take 1,000 Units by mouth every morning. ??? colestipol (COLESTID) 1 gram tablet Take 1 tablet (1 g total) by mouth 4 (four) times a day as needed (fat driven diarrhea). 120 tablet 3 ??? ergocalciferol (VITAMIN D) 50,000 unit capsule Take 1 capsule (50,000 Units total) by mouth every 30 (thirty) days. 5 capsule 0 ??? folic acid (FOLVITE) 1 mg tablet every morning. ??? hyoscyamine (LEVSIN) 0.125 mg tablet Take 1 tablet (0.125 mg total) by mouth every 6 (six) hours as needed for cramping or diarrhea. 120 tablet 1 ??? loperamide (IMODIUM) 2 mg capsule Take 1 capsule (2 mg total) by mouth 4 (four) times a day as needed for diarrhea. 1/2 to 1 tab as needed for diarrhea 60 capsule 11 ??? multivitamin capsule Take 1 capsule by mouth every morning. ??? omega 6-dme-rsn-fish oil 300-1,000 mg capsule 1 capsule every morning. ??? ondansetron (ZOFRAN) 8 mg tablet TAKE 1 TABLET 3 TIMES DAILY starting the day before taking theMethotrexate, the day of and the day after and thenonly as needed ??? mesalamine (LIALDA) 1.2 gram EC tablet Take two tablets by mouth daily with food (Patient not taking: Reported on 03/15/2018 ) 60 tablet 0 ??? methotrexate 2.5 mg tablet Take 10 Tablets by mouth weekly all at once on the same day (Safety Labs due every 3 months 05/19) 40 tablet 2 ??? neomycin (MYCIFRADIN) 500 mg tablet Take two tablets at 1pm, 2pm, and 10pm the day before surgery. (Patient not taking: Reported on 02/07/2018 ) 6 tablet 0 No current facility-administered medications for this visit. Physical Exam: BP 120/81 Pulse 88 Temp 36.7 ??C (98 ??F) Ht 172.7 cm (5' 8 ) Wt 80.2 kg (176 lb 12.8 oz) BMI 26.88 kg/m?? General: Awake, alert, no apparent distress, well nourished HEENT: Normocephalic, atraumatic, anicteric, conjunctiva normal, no nasal drainage, oropharynx clear without erythema or exudate Pulmonary: Clear to auscultation bilaterally Cardiovascular: Regular rhythm and rate, normal S1/S2, no murmurs/rubs/gallops Abdomen: Soft nontender nondistended with well-healed surgical scars Extremities: Warm and well perfused, no cyanosis, no clubbing, no edema Skin: Warm, dry, no rashes Neuro: No focal deficits Psych: Normal affect and mood Assessment/Plan: Crohn's disease of both small and large intestine (CMS/HCC) 1. Patient had some mild anticipation of [...] to assess his anastomosis in early 2018 Diarrhea due to malabsorption 1. We would recommend the patient increase the Colestid 2 tablets in the morning and continue the 1Imodium. 2. Patient is also encouraged to use the Levsin as needed. 3. He was educated on how he can escalate his Colestid and Imodium further if he develops worseningdiarrhea Follow up: The patient was given ample opportunity to ask any questions and their questions were answered. We would like him to follow-up in early 2018 with an expectation of having the MR enterography in late fall documented in this encounter Miscellaneous Notes * Assessment & Plan Note - Veronica Morse NP - 03/16/2018 11:39 AM CDTAssociated Problem(s): Diarrhea due to malabsorption 1. We would recommend the patient increase the Colestid 2 tablets in the morning and continue the 1Imodium. 2. Patient is also encouraged to use the Levsin as needed. 3. He was educated on how he can escalate his Colestid and Imodium further if he develops worseningdiarrhea * Assessment & Plan Note - Veronica Morse NP - 03/16/2018 11:35 AM CDTAssociated Problem(s): Crohn's disease of both small and large intestine (HCC) 1. Patient had some mild anticipation of [...] to assess his anastomosis in early 2018 documented in this encounter Plan of Treatment Not on file documented as of this encounter Results * Adalimumab quantitative with reflex to antibody, serum (04/23/2018 2:53 PM CDT) ADALX Quant 9.6 mcg/mL [facility] Comment: For clinical assessment of response to therapy, adalimumab should be measured at trough. When adalimumab trough concentrations are greater than 5.0 mcg/mL, clinically relevant [id number]-[id number] are unlikely and reflex testing will not be performed. REFERENCE VALUE Limit of Quantitation = 0.8 mcg/mL ADDITIONAL INFORMATION This test was developed and its performance characteristics determined by [facility] in a manner consistent with CLIA requirements. This test has not been cleared or approved by the U.S. Food and Drug Administration. Test Performed by: [address] [address] Blood specimen (specimen) 04/23/2018 2:53 PM CDT 04/23/2018 3:41 PM CDT Julio Cesar [facility] - 04/25/2018 5:36 PM CDT Veronica Morse BARTENDER MANAGER LAB BLOOD ALICJA VALLEJO Final Result [facility] [place] [address] documented in this encounter Visit Diagnoses Diagnosis Crohn's disease of both small and large intestine with intestinal obstruction (HCC)- Primary Diarrhea due to malabsorption Crohn's disease of both small and large intestine with intestinal obstruction (HCC) documented in this encounter Care Teams Professor Of Psychiatry Relationship Specialty Start Date End Date Trenton Bess MD PCP - General 04/30/17 07/24/18 documented as of this encounter
--- OUTSIDE RECORDS SUMMARY | 2024-07-09 05:27 | XMS_ITS | Encounter Summary ---
Author Organization [facility] Address [address] [facility] [address] [place] [address] Phone Care Team Providers Care [place] Name Role Phone Trenton Bess MD Primary Care Provider [phone] Reason for Referral * Diagnostic Imaging (Routine) - Closed Specialty Diagnoses / Procedures Referred By Contac t Referred To Contact Radiology Diagnoses Right lower quadrant abdominal pain Procedures CT Abdomen Pelvis W Contrast Antonio Portillo MD Phone: tel: fax: [address] [address] Referral ID Status Reason Start Date Expiration Date Visits Re quested Visits Authorized [id number] Closed 02/06/2018 03/07/2018 1 1 Encounter Details Date Type Department Care Team (Late st Contact Info) Description 02/06/2018 Orders Only [facility] Surgery [address] [facility] Advanced Medicine 8th [place] [address] [place] [id number] Antonio Portillo MD [address] 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 28 tablet 02/06/2018 8 mesalamine (LIALDA) 1.2 gram EC tabletIndications: Crohn's Disease Take two tablets by mouth daily with food 60 tablet 02/06/2018 8 documented in this encounter Progress Notes * Margie Linda MA - 02/06/2018 9:[address] came back as inflammation, which could be signs of Crohn's recurrence. Dr. Portillo has been madeaware, and the patient has been called in Cipro and Mesalamine. He knows to follow up with GI, and I have made Dr. Quevedo's office aware as well. All patient questions were answered, and he will be following up. He knows if pain gets worse, to seek ED. documented in this encounter Plan of Treatment Scheduled Orders Name Type Priority Associated Diagnoses Orde r Schedule UA with Culture Reflex Lab Routine Right lower quadrant abdominal pain Expected: 02/06/2018, Expires: 02/06/2019 documented as of this encounter Results * (ABNORMAL) CBC with auto differential (02/07/2018 12:09 PM CDT) WBC 6.7 3.8 - 9.9 K/cumm [facility] Hgb 11.4(L) 13.0 - 17.5 g/dL [facility] Hct 35.4(L) 38.9 - 50.3 % [facility] Plt 302 150 - 400 K/cumm [facility] MPV 9.4 9.1 - 12.3 fL [facility] RBC 3.88(L) 4.30 - 5.80 M/cumm [facility] MCV 91.2 81.3 - 96.4 fL [facility] MCH 29.4 27.1 - 33.3 pg [facility] MCHC 32.2(L) 32.3 - 35.7 g/dL [facility] RDW CV 12.5 11.1 - 14.9 % [facility] RDW SD 41.3 35.7 - 48.1 fL [facility] NRBC abs 0.00 0.00 - 0.01 K/cumm [facility] Blood specimen (specimen) 02/07/2018 12:09 PM CDT 02/07/2018 12:24 PM CDT Narrative [facility] - 02/07/2018 1:01 PM CDT Antonio Portillo MD LAB BLOOD ORDERABLES Final Result Performing Organization Address City/[facility]/ZIP Co de Phone Number [facility] Department [place] [address] * Hepatic function panel (02/07/2018 12:09 PM CDT) Bilirubin, total 0.3 0.1 - 1.2 mg/dL [facility] Bilirubin, direct <0.2 0.1 - 0.3 mg/dL [facility] Protein, pl 8.3 6.5 - 8.5 g/dL [facility] Albumin 4.2 3.5 - 5.0 g/dL [facility] Alk phos 82 40 - 130 Units/L [facility] ALT 35 7 - 55 Units/L [facility] AST 22 10 - 50 Units/L [facility] Blood specimen (specimen) 02/07/2018 12:09 PM CDT 02/07/2018 12:24 PM CDT Narrative [facility] - 02/07/2018 1:40 PM CDT Antonio Portillo MD LAB BLOOD ORDERABLES Final Result [facility] Department [place] [address] * CT Abdomen Pelvis W Contrast (02/06/2018 12:17 PM CDT) Anatomical Region Laterality Modality Body N/A Computed Tomogra phy 02/06/2018 12:5 1 PM CDT Impressions 02/06/2018 12:51 PM CDT 1. ??New ileocolonic anastomosis with adjacent soft tissue thickening and fat stranding, likely corresponding to evolving postsurgical changes with possible adjacent fat necrosis. ??No evidence of drainable fluid collections or well-defined abscesses. ??Recommend continued follow-up. 2. ??Segment of mild small bowel wall thickening and mucosal hyperenhancement suggestive of active inflammatory stage of Crohn's disease in the distal ileum. Electronically signed by: Jefferson Kirkpatrick M.D. Narrative 02/06/2018 12:51 PM CDT EXAMINATION: ??Computed tomography of the abdomen and pelvis with intravenous contrast HISTORY: Abdominal pain, right lower quadrant abdominal pain. Crohn's disease. ??Status post ileocecectomy and sigmoid fistula repair on 01/11/2018. TECHNIQUE: ??Transaxial computed tomographic images of the abdomen and pelvis ??were obtained with intravenous contrast according to the standard protocol after the uneventful administration of 100 mL Opti-Ray 350 intravenous contrast. COMPARISON: CT abdomen and pelvis performed on 06/08/2017 FINDINGS: ?? Visualized chest: Moderate sized sliding hiatal hernia. Abdomen/Pelvis: Status post ileocecectomy with new cortical anastomoses in the right lower quadrant. ??Linear suture material is seen extending posteriorly to this anastomosis, 2/-319, with surrounding soft tissue thickening and fat stranding. ??Postsurgical appearance of the distention could this could still be within evolving postsurgical changes. ??Enlarged lymph nodes are seen in in the central mesentery and in the right lower quadrant, largest anterior to the psoas measuring 1.4 x 1.1 cm, 2/-327. There is mucosal hyperenhancement with wall thickening involving a long segment of the terminal ileum, estimated at 15 - 20 cm in length, slice position -399, with mild adjacent fat stranding and mesenteric engorgement. ??Trace ascites is present in the pelvis. ??The bowel is otherwise unremarkable. ?Mild fat stranding is also noted around the sigmoid colon, 2/-425, also could correspond to postsurgical changes from recent surgery. ??No evidence of fibrosing or fistula disease on the current study. Postsurgical changes along the anterior abdominal wall. The liver, spleen, kidneys, adrenal glands, pancreas, and gallbladder are normal. Minimal atelectasis is noted in the right lung base. No aggressive bone lesions. Procedure Note Jefferson Kirkpatrick MD - 02/06/2018 EXAMINATION: Computed tomography of the abdomen and [...] right lung base. No aggressive bone lesions. IMPRESSION: 1. New ileocolonic anastomosis with adjacent soft [...] ileum. Electronically signed by: Jefferson Kirkpatrick M.D. Antonio Portillo MD IMG CT PROCEDURES Fi nal Result documented in this encounter Visit Diagnoses Diagnosis Left lower quadrant pain- Primary Abdominal pain, left lower quadrant Right lower quadrant abdominal pain Right lower quadrant abdominal pain Right lower quadrant abdominal pain documented in this encounter Care Teams [place] Relationship Specialty Start Date End Date Trenton Bess MD PCP - General 04/30/17 07/24/18 documented as of this encounter
--- OUTSIDE RECORDS SUMMARY | 2024-07-09 05:27 | XMS_ITS | Encounter Summary ---
Author Organization [facility] Address [address] [place] [address] Care Team Providers Care Coal Unloader Name Role Phone Trenton Bess MD Primary Care Provider [phone] Encounter Details Date Type Department Care Team (Late st Contact Info) Description 04/23/2018 2:55 PM CDT Lab [facility] Advanced [facility] ([facility]) [address] [place] [phone] Social History Tobacco Use Types Packs/Day Years Used Date Smoking Tobacco: Never Smokeless Tobacco: Never Alcohol Use Standard Drinks/Week Comments No 0 (1 standard drink = 0.6 oz pur e alcohol) Sex and Gender Information Value Date Recorded Sex Assigned at Not on file 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
--- OUTSIDE RECORDS SUMMARY | 2024-07-09 05:27 | XMS_ITS | Encounter Summary ---
Author Organization [facility] Address [address] [place] [address] Phone Care Team Providers Care Cutting Machine Fixer Name Role Phone Trenton Bess MD Primary Care Provider [phone] Reason for Referral * Diagnostic Imaging (Routine) - Canceled Specialty Diagnoses / Procedures Referred By Contac t Referred To Contact Diagnoses Screening for osteoporosis Procedures Dexa Axial Skeleton Bone Density 1 or 2 Site Fernadno Mckeon MD Phone: tel: fax: [facility] (All Locations) Referral ID Status Reason Start Date Expiration Date V isits Requested Visits Authorized [id number] Canceled 05/03/2018 11/12/2019 1 1 Reason for Visit * Reason Comments Osteopenia * Endocrinology (Routine) - Closed Specialty Diagnoses / Procedures Referred By Contac t Referred To Contact Bone Health Diagnoses Age-related osteoporosis without current pathological fracture Procedures RETURN Trenton Bess MD Phone: tel: fax: Fernando Mckeon MD [address] [address] Phone: tel: fax: Referral ID Status Reason Start Date Expiration Date Visits Re quested Visits Authorized [id number] Closed 05/06/2018 07/01/2018 99 [phone] Encounter Details Date Type Department Care Team (Latest Contact Info) Description 05/06/2018 3:10 PM MANAGER RELIABILITY Clinical Support [facility] [address] 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 Gender Identity Not on file Sexual Orientation Not on file documented as of this encounter Plan of Treatment Not on file documented as of this encounter Procedures Procedure Name Priority Date/Time Associated Diagnosis Comments DEXA AXIAL SKELETON BONE DENSITY 1 OR MORE SITES Schedule Routine, Read Routine (OP Routine) 05/06/2018 3:46 PM MANAGER RELIABILITY Screening for osteoporosis documented in this encounter Results * Dexa Axial Skeleton Bone Density 1 or 2 Site (05/06/2018 3:46 PM MANAGER RELIABILITY) Anatomical Region Laterality Modality Body N/A Radiographic Nancy ging Narrative 05/07/2018 11:21 AM MANAGER RELIABILITY Patient Name: Nic Teran Date of : 1990 Date of scan: 05/06/2018 Bone mineral density was performed on a HoloMiiPharos Discovery Densitometer. ?? Machine Cross-calibration and Precision studies have been performed with a least significant change of 0.024 g/cm at the spine, 0.020 g/cm at the total proximal femur, and 0.014g/cm at the forearm. HISTORY: ??This is a 27 y.o. male with a history of crohn's disease and low bone mass. Currently on treatment with calcium and vitamin D. Previously treated with glucocorticoids. With a current complaint of back and neck pain. History of tobacco use: History Smoking Status ? ? Never Smoker INDICATIONS: History of glucocorticoids use and history of low bone mass. FINDINGS: BONE MINERAL DENSITY OF THE LUMBAR SPINE Bone Mineral Density (BMD) of the lumbar spine was measured from L1-L4 and the average density was calculated to be 0.927 gm/cm. This corresponds to a Z-score standard deviations from the mean of age and gender matched controls of -1.5. When compared to the previous study of 04/30/17 there has been a measured 0.056 gm/cm 6.4% increase which is considered significant. BONE MINERAL DENSITY OF THE PROXIMAL FEMUR Bone Mineral Density (BMD) of the left hip total was found to be 0.756 gm/cm2. This corresponds to a Z-score standard deviations from the mean of age and gender matched controls of -1.8. Femoral neck is 0.595 gm/cm2 with a Z-score ??of -2.3. When compared to the previous study of 04/30/17 there has been a measured 0.032 gm/cm 4.5% increase which is considered significant. SUMMARY: Bone mineral density is below the expected range for age with a significant increase noted since previous measurement. ADDITIONAL COMMENTS: If [...] BMD of young normal adults. References: 1) Red Annals of Internal Medicine 114(11): ??919-923 (1990) 2) Lise, Lancet 341 : 72-75 (1992) 3) Wade, Journal Bone and Mineral Research 7(6): 633-8 [...] by the International Society of Clinical Densitometry. [id number] Fernando Mckeon MD IMG DXA PROCEDURES Final Result documented in this encounter Visit Diagnoses Diagnosis Screening for osteoporosis- Primary Special screening for osteoporosis Low bone mass documented in this encounter Care Teams Cutting Machine Fixer Relationship Specialty Start Date End Date Trenton Bess MD PCP - General 04/30/17 07/24/18 documented as of this encounter
--- OUTSIDE RECORDS SUMMARY | 2024-07-09 05:27 | XMS_ITS | Encounter Summary ---
Author Organization [facility] Address [address] [place] [address] Phone Care Team Providers Care Invoicing Specialist Name Role Phone Trenton Bess MD Primary Care Provider [phone] Encounter Details Date Type Department Care Team (Late st Contact Info) Description 03/25/2018 Orders Only [facility] Gastroenterology [facility] 8th [place] [address] [place] [phone] Shanika Braun Crohn's disease of both small and large intestine with complication (CMS/HCC) (Primary Dx) Social History Tobacco Use Types Packs/Day Years Used Date Smoking Tobacco: Never Smokeless Tobacco: Never Alcohol Use Standard Drinks/Week Comments No 0 (1 standard drink = 0.6 oz pur e alcohol) Sex and Gender Information Value Date Recorded Sex Assigned at Not on file 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 Gender Identity Not on file Sexual Orientation Not on file documented as of this encounter Ordered Prescriptions Prescription Sig Dispense Quantity Refills Last Filled Start Date End Date adalimumab (HUMIRA PEN) 40 mg/0.8 mL pen injector kitIndications:Seafood Packer hn's Disease Inject 40 mg SQ every 7 days - PA approved thru ES #[id number] starting 02/23/18 thru 03/25/19 2 each 2 03/25/2018 8 adalimumab (HUMIRA PEN) 40 mg/0.8 mL pen injector kitIndications:Seafood Packer hn's Disease Inject 40 mg SQ every 7 days 2 each 2 03/25/2018 8 documented in this encounter Plan of Treatment Not on file documented as of this encounter Visit Diagnoses Diagnosis Crohn's disease of both small and large intestine with complication (HCC)- Primary documented in this encounter Discontinued Medications Medication Sig Discontinue Reason Start Date End Da te adalimumab (HUMIRA PEN) 40 mg/0.8 mL pen injector kit HUMIRA 40MG/0.8ML KIT. INJECT 40MG PEN SQ every 14 days1 KIT=2 BOXES/PENS( labs due again in 10/2017) Reorder 02/08/2017 03/25/2018 adalimumab (HUMIRA PEN) 40 mg/0.8 mL pen injector kitIndications:Crohn's Disease Inject 40 mg SQ every 7 days Reorder 03/25/2018 03/25/2018 documented as of this encounter Care Teams Invoicing Specialist Relationship Specialty Start Date End Date Trenton Bess MD PCP - General 04/30/17 07/24/18 documented as of this encounter
--- OUTSIDE RECORDS SUMMARY | 2024-07-09 05:27 | XMS_ITS | Encounter Summary ---
Author Organization [facility] Address [address] [place] [address] Phone Care Team Providers Care Manager Strategic Alliances Name Role Phone Trenton Bess MD Primary Care Provider [phone] Encounter Details Date Type Department Care Team (Late st Contact Info) Description 02/06/2018 Telephone 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 From: Mona Esqueda Sent: Tuesday, February 06, 2018 1:54 PM To: Margie Linda <[email or web address]>; Eliana Quevedo <[email or web address]>; Adeline Lennon <[email or web address]> Subject: RE: [secure] sm Pt scheduled with Linda 02/11 (02/08 is full) and pt seeing Dr. Portillo tomorrow and getting labs afterapt tomorrow. Pt states he restarted Humira on 01/25 and will inject again on 02/08. Also, pt states he is taking MTX on Fridays. Noted in chart. From: Margie Linda Sent: Tuesday, February 06, 2018 1:23 PM To: Eliana Quevedo <[email or web address]>; Mona Esqueda <[email or web address]>; Adeline Lennon <[email or web address]> Subject: RE: [secure] lilly Hopefully he started back on the Humira. Thanks for responding, please let me or Dr. Portillo know if you need anything. See you tomorrow. RY Nevarez III I Bass Mechanism Maker to Dr. Antonio Portillo and Dr. Alva Keating Department of Surgery I Colon & Rectal Surgery [facility] [address] Mail [address] [phone] [place] [address] [email or web address] From: Eliana Quevedo Sent: Tuesday, February 06, 2018 1:22 PM To: Margie Linda <[email or web address]>; Mona Esqueda <[email or web address]>; Adeline Lennon <[email or web address]> Subject: Re: [secure] lilly I spoke to the patient on 01/15 and I told him to restart his Humira 2 weeks post op with no escalated dose. I will have my staff make sure he has taken his humira (which should have happened last week.) I spoke to the radiologist at [facility] and it seems like there are mainly post surgical inflammation but minimal disease activity (he was in remission prior to surgery.) The findings on the Ct scan do not correlate with the level of abdominal pain and would consider a UTI (he had a king), a kidney stone or spasm (Levsin would help.) I would suggest checking a UA and CBC\LFTS. Mona, please get him an appointment with Linda. From: Margie Linda Sent: Tuesday, February 06, 2018 12:13:36 PM To: Eliana Quevedo; Mona Esqueda Subject: [secure] Nic Claudio Male, 27 y.o., 1990 Phone: * , , New outside records available , Mona and Dr. Quevedo, Nic Teran is a mutual patient between Dr. Portillo and you. He called me this morning with severe abdominal pain, 8 out of 10, stabbing. He took Tylenol this AM and some pain decreased, but was still there. I scheduled him this AM for a CT A/P to evaluate, as he is s/p ileocolic resection, mid-December. The radiologist called Dr. Portillo, and it is showing more Crohn???s Disease. He was prescribed mesalamine in the meantime, but Dr. Portillo would like him to f/u with you ratherquickly. He wanted to send Flagyl, but per the patient, he is allergic, so I???m waiting to hear back as to what else he wants to send, if anything. Thanks so much! IMPRESSION: 1. New ileocolonic anastomosis with adjacent soft tissue thickening and fat stranding, likely corresponding to evolving postsurgical changes with possible adjacent fat necrosis. No evidence of drainable fluid collections or well-defined abscesses. Recommend continued follow-up. 2. Segment of mild small bowel wall thickening and mucosal hyperenhancement suggestive of active inflammatory stage of Crohn's disease in the distal ileum. RY Nevarez III I Bass Mechanism Maker to Dr. Antonio Portillo and Dr. Alva Keating Department of Surgery I Colon & Rectal Surgery [address] Mail Stop [phone] [place] [address] [email or web address] documented in this encounter Plan of Treatment Not on file documented as of this encounter Visit Diagnoses Not on filedocumented in this encounter Care Teams Manager Strategic Alliances Relationship Specialty Start Date End Date Trenton Bess MD PCP - General 04/30/17 07/24/18 documented as of this encounter
--- OUTSIDE RECORDS SUMMARY | 2024-07-09 05:27 | XMS_ITS | Encounter Summary ---
Author Organization [facility] Address [address] [place] [address] Phone Care Team Providers Care Residential Electrician Name Role Phone Trenton Bess MD Primary Care Provider [phone] Encounter Details Date Type Department Care Team (Late st Contact Info) Description 02/07/2018 Orders Only [facility] Surgery [address] [facility] 8th [place] [address] [place] [address] Antonio Portillo MD [address] [facility] [phone] [address] [place] [address] Social History Tobacco Use Types Packs/Day Years Used Date Smoking Tobacco: Never Smokeless Tobacco: Never Alcohol Use Standard Drinks/Week Comments No 0 (1 standard drink = 0.6 oz pur e alcohol) Sex and Gender Information Value Date Recorded Sex Assigned at Not on file 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
--- OUTSIDE RECORDS SUMMARY | 2024-07-09 05:27 | XMS_ITS | Encounter Summary ---
Author Organization [facility] Address [address] [place] [address] Care Team Providers Care Escrow Representative Name Role Phone Trenton Bess MD Primary Care Provider [phone] Encounter Details Date Type Department Care Team (Late st Contact Info) Description 02/07/2018 12:15 PM CDT Lab [facility] [address] [place] [phone] Antonio Portillo MD [address] [facility] [phone] [address] [place] [address] Right lower quadrant abdominal pain Discharge Disposition: Discharge to home or self care Social History Tobacco Use Types Packs/Day Years Used Date Smoking Tobacco: Never Smokeless Tobacco: Never Alcohol Use Standard Drinks/Week Comments No 0 (1 standard drink = 0.6 oz pur e alcohol) Sex and Gender Information Value Date Recorded Sex Assigned at Not on file Legal Sex Male 11:11 PM RESP THER Gender Identity Not on file Sexual Orientation Not on file documented as of this encounter Discharge Disposition Disposition Code Departure Means Destination Discharge to home or self care documented in this encounter Plan of Treatment Not on file documented as of this encounter Procedures Procedure Name Priority Date/Time Associated Diagnosis Comments URINALYSIS, MACROSCOPIC Routine Gen Lab 02/07/2018 1:16 PM CDT URINALYSIS, MICROSCOPIC ONLY Routine Gen Lab 02/07/2018 1:16 PM CDT DIFFERENTIAL AUTO Routine 02/07/2018 12: 09 PM CDT Right lower quadrant abdominal pain CBC WITH AUTO DIFFERENTIAL Routine 02/07/2018 12:09 PM CDT Right lower quadrant abdominal pain HEPATIC FUNCTION PANEL Routine 02/07/2018 12:09 PM CDT Right lower quadrant abdominal pain documented in this encounter Results * (ABNORMAL) Urinalysis, microscopic only (02/07/2018 1:16 PM CDT) WBC, ur 0-5 0 - 5 /HPF [facility] RBC, ur 0-5 0 - 5 /HPF [facility] Mucous, ur Present(A) [facility] Urine 02/07/2018 1:16 PM CDT 02/07/2018 1:50 PM CDT Narrative [facility] - 02/07/2018 2:16 PM CDT us Antonio Portillo MD LAB URINE ORDERABLES Final Result [facility] Department [place] [address] * (ABNORMAL) Urinalysis, macroscopic (02/07/2018 1:16 PM CDT) Color, ur Reyan Yellow [facility] Clarity, ur Cloudy(A) Clear [facility] Specific gravity, ur 1.028(H) 1.010 - 1.025 [facility] pH, urine 6.0 [facility] Protein, ur ql 1+(A) Negative [facility] Glucose, ur ql Negative Negative [facility] Ketones, ur Negative Negative [facility] Bilirubin, ur Negative Negative [facility] Blood, ur Negative Negative [facility] Comment:Ascorbic acid identi fied in urine; possible false negative blood result. A microscopic exam will be added to identify RBCs. Urobilinogen, ur <2.0 <2.0 mg/dL [facility] Nitrite, ur Negative Negative [facility] Leukocyte esterase, ur Negative Negative [facility] Urine 02/07/2018 1:16 PM CDT 02/07/2018 1:50 PM CDT Narrative [facility] - 02/07/2018 2:00 PM CDT ?? Urine pH is affected by diet, medications, systemic acid-base disturbances, and renal tubular function. ??pH may affect urinary stone formation. ??For example, urine pH below 6.0 may help reduce the tendency for calcium phosphate stones and pH greater than 6.0 may reduce the tendency for uric acid stone formation. Source: [employer]. Last revised 07-12-2017 us Antonio Portillo MD LAB MICROBIOLOGY - G ENERAL ORDERABLES Final Result [facility] Department [place] [address] * Differential, auto (02/07/2018 12:09 PM CDT) Neutrophil abs 3.4 1.7 - 6.5 K/cumm [facility] Imm gran abs 0.0 0.0 - 0.1 K/cumm [facility] Lymphocyte abs 2.8 0.8 - 3.3 K/cumm [facility] Monocyte abs 0.4 0.2 - 0.8 K/cumm [facility] Eosinophil abs 0.1 0.0 - 0.5 K/cumm [facility] Basophil abs 0.1 0.0 - 0.1 K/cumm [facility] Neutrophil pct 50.4 % [facility] Comment: [...] was last revised on 2017. Lymphocyte pct 41.2 % [facility] Comment: Interpretive Data Percent cell count reference ranges are not reported, since discordance with absolute values may lead to misinterpretation of CBC data. Current Interpretive Data was last revised on 2017. Monocyte pct 6.1 % [facility] Comment: Interpretive Data Percent cell count reference ranges are not reported, since discordance with absolute values may lead to misinterpretation of CBC data. Current Interpretive Data was last revised on 2017. Eosinophil pct 1.0 % [facility] Comment: Interpretive Data Percent cell count reference ranges are not reported, since discordance with absolute values may lead to misinterpretation of CBC data. Current Interpretive Data was last revised on 2017. Basophil pct 1.0 % [facility] Comment: Interpretive Data Percent cell count reference ranges are not reported, since discordance with absolute values may lead to misinterpretation of CBC data. Current Interpretive Data was last revised on 2017. Blood specimen (specimen) 02/07/2018 12:09 PM CDT 02/07/2018 12:24 PM CDT Narrative [facility] - 02/07/2018 1:01 PM CDT us Antonio Portillo MD LAB BLOOD ORDERABLES Final Result [facility] Department [place] [address] * (ABNORMAL) CBC with auto differential (02/07/2018 12:09 PM CDT) WBC 6.7 3.8 - 9.9 K/cumm [facility] Hgb 11.4(L) 13.0 - 17.5 g/dL [facility] Hct 35.4(L) 38.9 - 50.3 % [facility] Plt 302 150 - 400 K/cumm [facility] MPV 9.4 9.1 - 12.3 fL [facility] RBC 3.88(L) 4.30 - 5.80 M/cumm [facility] MCV 91.2 81.3 - 96.4 fL [facility] MCH 29.4 27.1 - 33.3 pg [facility] MCHC 32.2(L) 32.3 - 35.7 g/dL [facility] RDW CV 12.5 11.1 - 14.9 % [facility] RDW SD 41.3 35.7 - 48.1 fL [facility] NRBC abs 0.00 0.00 - 0.01 K/cumm [facility] Blood specimen (specimen) 02/07/2018 12:09 PM CDT 02/07/2018 12:24 PM CDT Narrative [facility] - 02/07/2018 1:01 PM CDT Antonio Portillo MD LAB BLOOD ORDERABLES Final Result Performing Organization Address City/[facility] Co de Phone Number [place] [address] * Hepatic function panel (02/07/2018 12:09 PM CDT) Bilirubin, total 0.3 0.1 - 1.2 mg/dL [facility] Bilirubin, direct <0.2 0.1 - 0.3 mg/dL [facility] Protein, pl 8.3 6.5 - 8.5 g/dL [facility] Albumin 4.2 3.5 - 5.0 g/dL [facility] Alk phos 82 40 - 130 Units/L [facility] ALT 35 7 - 55 Units/L [facility] AST 22 10 - 50 Units/L [facility] Blood specimen (specimen) 02/07/2018 12:09 PM CDT 02/07/2018 12:24 PM CDT Narrative [facility] - 02/07/2018 1:40 PM CDT Antonio Portillo MD LAB BLOOD ORDERABLES Final Result Performing Organization Address City/[facility] Co de Phone Number [facility] [place] [employer] [place] [address] documented in this encounter Visit Diagnoses Diagnosis Right lower quadrant abdominal pain documented in this encounter Care Teams Escrow Representative Relationship Specialty Start Date End Date Trenton Bess MD PCP - General 04/30/17 07/24/18 documented as of this encounter
--- OUTSIDE RECORDS SUMMARY | 2024-07-09 05:27 | XMS_ITS | Encounter Summary ---
Author Organization [facility] Address [address] [place] [address] Phone Care Team Providers Care House Painting Instructor Name Role Phone Trenton Bess MD Primary Care Provider [phone] Encounter Details Date Type Department Care Team (Late st Contact Info) Description 03/13/2018 Telephone [facility] 8th [place] [address] [place] [address] Sarah Mora Social History Tobacco Use Types Packs/Day Years Used Date Smoking Tobacco: Never Smokeless Tobacco: Never Alcohol Use Standard Drinks/Week Comments No 0 (1 standard drink = 0.6 oz pur e alcohol) Sex and Gender Information Value Date Recorded Sex Assigned at Not on file Legal Sex Male 11:11 PM DAIRY NUTRITION CONSULTANT Gender Identity Not on file Sexual Orientation Not on file documented as of this encounter Miscellaneous Notes * Telephone Encounter - Sarah Mora - 03/13/2018 9:44 AM CDT LVM Called and left voice mail message reminder for appointment scheduled on Sunday03/15/[address] Parikh???s office in the [facility] on the 8th floor [address] documented in this encounter Plan of Treatment Not on file documented as of this encounter Visit Diagnoses Not on filedocumented in this encounter Care Teams House Painting Instructor Relationship Specialty Start Date End Date Trenton Bess MD PCP - General 04/30/17 07/24/18 documented as of this encounter
--- OUTSIDE RECORDS SUMMARY | 2024-07-09 05:27 | XMS_ITS | Encounter Summary ---
Author Organization [facility] Address [address] [place] [address] Phone Care Team Providers Care Psychotherapist Counselor Name Role Phone Trenton Bess MD Primary Care Provider [phone] Reason for Referral * Diagnostic Imaging (Routine) - Closed Specialty Diagnoses / Procedures Referred By Contac t Referred To Contact Diagnoses Low bone mass Procedures Dexa Appendicular Bone Density Fernando Mckeon MD Phone: tel: fax: [facility] (All Locations) Referral ID Status Reason Start Date Expiration Date Visits Re quested Visits Authorized [id number] Closed 05/06/2018 07/01/2020 1 99 TARY SCIENCE INSTRUCTOR Reason for Visit * Endocrinology (Routine) - Closed Specialty Diagnoses / Procedures Referred By Contac t Referred To Contact Bone Health Diagnoses Age-related osteoporosis without current pathological fracture Procedures RETURN Trenton Bess MD Phone: tel: fax: Fernando Mckeon MD [address] [place] [address] Phone: tel: fax: Referral ID Status Reason Start Date Expiration Date Visits Re quested Visits Authorized [id number] Closed 05/06/2018 07/01/2018 99 99 Encounter Details Date Type Department Care Team (Late st Contact Info) Description 05/06/2018 3:30 PM MILITARY SCIENCE INSTRUCTOR Office Visit [facility] [address] [facility] 5th [place] [address] [place] [address] Fernando Mckeon MD [address] [facility] [address] [place] [address] Low bone mass (Primary Dx) Social History Tobacco Use Types Packs/Day Years Used Date Smoking Tobacco: Never Smokeless Tobacco: Never Alcohol Use Standard Drinks/Week Comments No 0 (1 standard drink = 0.6 oz pur e alcohol) Sex and Gender Information Value Date Recorded Sex Assigned at Not on file Legal Sex Male 11:11 PM MILITARY SCIENCE INSTRUCTOR Gender Identity Not on file Sexual Orientation Not on file documented as of this encounter Last Filed Vital Signs Vital Sign Reading Time Taken Comments Blood Pressure 120/77 05/06/2018 3:22 PM MILITARY SCIENCE INSTRUCTOR Pulse 73 05/06/2018 3:22 PM MILITARY SCIENCE INSTRUCTOR Temperature 36.7 ??C (98 ??F) 05/06/2018 3:22 PM MILITARY SCIENCE INSTRUCTOR Respiratory Rate - - Oxygen Saturation - - Inhaled Oxygen Concentration - - Weight 80.8 kg (178 lb 3.2 oz) 05/06/2018 3:22 P M MILITARY SCIENCE INSTRUCTOR Height 170.2 cm (5' 7 ) 05/06/2018 3:22 PM MILITARY SCIENCE INSTRUCTOR Body Mass Index 27.91 05/06/2018 3:22 PM MILITARY SCIENCE INSTRUCTOR documented in this encounter Patient Instructions * Patient Instructions* Fernando Mckeon MD - 05/06/2018 3:30 PM MILITARY SCIENCE INSTRUCTOR Goal 1000mg of calicum daily Continue D prescription monthly 50K Ergocalciferol Continue 1000 IU daily pending level today Increase your weight bearing activity. TARY SCIENCE INSTRUCTOR documented in this encounter Progress Notes * Fernando Mckeon MD - 05/06/2018 3:30 PM CST .IPDM TARY SCIENCE INSTRUCTOR * Fernando Mckeon MD - 05/06/2018 3:30 PM CST NAME: Nic Teran : 1990 [...] diagnosis. Initially he was treated with high doseprednisone therapy for 2 to 3 years after his diagnosis, anywhere from 10 to 40 mg per day but mainly atthe higher end of this range, in part because on [...] that time he is on methotrexate and continues on Humira every alternate week. Virgilio rodriguezwent an uncomplicated ileocecectomy on 01/11/2018, post-operatively developed 1 episode of severe abdominal pain with fever. He was given Cipro and balsalazide. He reports no interval falls or fractures. Currently on 50,000 international units monthly by Dr. Quevedo. He is currently on Citracal 600 mg twice daily and a multivitamin. He reports no interval falls, fractures, or adult loss of height. Does notendorse any symptoms suggestive of hypogonadism. No decreased libido. No difficulty obtaining ormaintaining an erection. Does endorse less weight bearing activity due to responsibilities at work and young children. ROS- frequent BM as many as 4-5 times per day, occasional abdominal pain, PAST MEDICAL HISTORY: 1. Crohn's disease diagnosed in 2004. 2. 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 3. Iritis related to #1. Page 1 of 3 - NIC TERAN - 04/30/2017 4. Polyarticular joint pain related to Crohn's. 5. Low bone mass for age based on bone density in 2014 and confirmed on bone density in April 2017. 6. 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 Supervised by Dr. Karol Tran, a pediatric petroleum terminal plant operator. 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 He has 2 children, 18 months and 2 weeks old. No alcohol, tobacco, or excessive caffeine intake. . PAST SURGICAL HISTORY: Past Surgical History: Procedure Laterality Date ??? COLONOSCOPY 2017 multiple ??? VASECTOMY 2018 ACTIVE PROBLEMS: Patient Active Problem List Diagnosis ??? Crohn's disease of both small and large intestine (CMS/HCC) ??? History of high risk medication treatment ??? Iritis ??? Osteoporosis ??? Crohn's disease with complication (CMS/HCC) ??? Acute postoperative pain ??? Generalized abdominal pain ??? Diarrhea due to malabsorption CURRENT MEDICATIONS: Current Outpatient Prescriptions: ??? ADALIMUMAB SUBQ, Inject 40 mg under the skin once every 2 weeks., Disp: , Rfl: ??? balsalazide (COLAZAL) 750 mg capsule, TAKE 3 CAPSULES 3 TIMES DAILY.( clarified script), Disp: , Rfl: ??? calcium carbonate (OS-ANA) 1,500 mg (600 mg of elemental calcium) tablet, every morning. , Disp: , Rfl: ??? cholecalciferol (VITAMIN D-3) 1,000 unit, Take 1,000 Units by mouth every morning., Disp: , Rfl: ??? colestipol (COLESTID) 1 gram tablet, Take 1 tablet (1 g total) by mouth 4 (four) times a day asneeded (fat driven diarrhea)., Disp: 120 tablet, Rfl: 3 ??? ergocalciferol (VITAMIN D) 50,000 unit capsule, Take 1 capsule (50,000 Units total) by mouth every 30 (thirty) days., Disp: 5 capsule, Rfl: 0 ??? folic acid (FOLVITE) 1 mg tablet, Take 1 tablet PO daily, Disp: 90 tablet, Rfl: 3 ??? hyoscyamine (LEVSIN) 0.125 mg tablet, Take 1 tablet (0.125 mg total) by mouth every 6 (six) hours as needed for cramping or diarrhea., Disp: 120 tablet, Rfl: 1 ??? loperamide (IMODIUM) 2 mg capsule, Take 1 capsule (2 mg total) by mouth 4 (four) times a day asneeded for diarrhea. 1/2 to 1 tab as needed for diarrhea, Disp: 60 capsule, Rfl: 11 ??? methotrexate 2.5 mg tablet, Take 10 Tablets by mouth weekly all at once on the same day ([employer] due every 3 months 05/19), Disp: 40 tablet, Rfl: 2 ??? multivitamin capsule, Take 1 capsule by mouth every morning., Disp: , Rfl: ??? omega 0-rrb-jmz-fish oil 300-1,000 mg capsule, 1 capsule every morning. , Disp: , Rfl: ??? ondansetron (ZOFRAN) 8 mg tablet, TAKE 1 TABLET 3 TIMES DAILY starting the day before taking the Methotrexate, the day of and the day after and thenonly as needed, Disp: , Rfl: ??? mesalamine (LIALDA) 1.2 gram EC tablet, Take two tablets by mouth daily with food (Patient not taking: Reported on 03/15/2018 ), Disp: 60 tablet, Rfl: 0 ??? neomycin (MYCIFRADIN) 500 mg tablet, Take two tablets at 1pm, 2pm, and 10pm the day before surgery. (Patient not taking: Reported on 02/07/2018 ), Disp: 6 tablet, Rfl: 0 ALLERGIES: Allergies Allergen Reactions ??? Flagyl [Metronidazole] [...] Conv) ??? Ulcerative colitis Mother's Sister Vitals BP 120/77 Pulse 73 Temp 36.7 ??C (98 ??F) Ht 170.2 cm (5' 7 ) Wt 80.8 kg (178 lb 3.2 oz) BMI 27.91 kg/m?? PHYSICAL EXAM: Physical Exam Constitutional: He is oriented to person, place, and time and well-developed, well-nourished, and in no distress. HENT: Head: Atraumatic. Eyes: Pupils are equal, round, and reactive to light. Conjunctivae are normal. Neck: Normal range of motion. Neck supple. Cardiovascular: Normal rate and regular rhythm. Pulmonary/Chest: Effort normal and breath sounds normal. Abdominal: Soft. Bowel sounds are normal. Musculoskeletal: Normal range of motion. Neurological: He is alert and oriented to person, place, and time. Gait normal. Skin: Skin is warm and dry. Psychiatric: [...] significant increase noted since previous measurement. LABS: Recent Results (from the past 1008 hour(s)) Adalimumab quantitative with reflex to antibody, serum Collection Time: 04/23/18 2:53 PM Result Value Ref Range ADALX Quant 9.6 mcg/mL Vitamin D 25 hydroxy Collection Time: 05/06/18 4:58 PM Result Value Ref Range Vitamin D, 25-hydroxy 30 30 - 80 ng/mL ASSESSMENT: Diagnoses and all orders for this visit: Low bone mass (Primary) - Dexa Appendicular Bone Density; Future - Vitamin D 25 hydroxy; Future PLAN: ASSESSMENT/PLAN: This is a 27-year-old male with a past medical history significant For low bone mass for age, vitamin D deficiency, short stature (prior treatment with GH replacement) and Crohn's disease diagnosed in 2004 with 2 to 3 years of high dose prednisone exposure with dosesranging from 10 to 40 mg per day. He was then transitioned initially to azathioprine and Remicade, and is currently on methotrexate/ Humira. The patient reports a previous bone density in 2014 that was consistent with osteopenia. Bone density performed in 2017 baseline in our center was consistent with low bone mass for age based on the Z-scores that are at or below -2.0. BMD today shows a marked6.4% improvement at the lumbar spine and a 4.5% improvement at the left total hip. Largely due to optimization of his vitamin [...] 24 hour urine studies 242 mg/24hrs. Prior CMPhad been within normal limits including serum alkaline phosphatase, calcium, electrolytes, and creatinine. Given that the 25- hydroxyvitamin D level remains low on 50,000 monthly of vitamin D, we will have the patient start 2000 international units daily and 10 weeks of 50,000 international units weekly with a repeat vitamin D level which had improved to 42 11/2017. However rpt level today was marginal at 30. We will switch his monthly 50K ergocalciferol to every two weeks. Increase his daily supplementation from 1000 IUS to 2000 IUs I encouraged the patient to engage in weight-bearing exercise for at least 20 to 30 minutes per day, perhaps consider joining his gym at work. A handout was provided to the patient outlying fall prevention measures and information on calcium and vitamin D supplementation. The patient will follow up in one year for a repeat bone mineral density. Should there be a trend towards loss or interval fragility fractures, those would be reasons for initiating pharmacologic therapy. Thank you for sending your patient to the [facility] at [facility]. Please let me know if I can be of any more assistance. If you have any questions or concerns please do not hesitate to give me a call. TARY SCIENCE INSTRUCTOR documented in this encounter Plan of Treatment Not on file documented as of this encounter Results * Dexa Appendicular Bone Density (05/12/2019 2:29 PM MILITARY SCIENCE INSTRUCTOR) Anatomical Region Laterality Modality Wrist N/A Radiographic Nancy ging Narrative 05/13/2019 12:23 PM MILITARY SCIENCE INSTRUCTOR Patient Name: Nic Teran Date of : 1990 Date of scan: 05/12/2019 Bone mineral density was performed on a Rebel[employer] Discovery Densitometer. ?? Machine Cross-calibration and Precision [...] density scan were prepared by Francesca Cary (R)([facility]) who is accredited by the International Society of Clinical Densitometry. The overall patient assessment and scan interpretation were performed by Fernando Mckeon M.D. who is certified by the International Society of Clinical Densitometry. [id number] Fernando Mckeon MD IMG DXA PROCEDURES Edited Resul t - Final * Vitamin D 25 hydroxy (05/06/2018 4:58 PM MILITARY SCIENCE INSTRUCTOR) Vitamin D 25-OH 30 30 - 80 ng/mL [facility] Blood specimen (specimen) 05/06/2018 4:58 PM MILITARY SCIENCE INSTRUCTOR 05/06/2018 5:41 PM MILITARY SCIENCE INSTRUCTOR Narrative [facility] - 05/06/2018 7:38 PM MILITARY SCIENCE INSTRUCTOR us Fernando Mckeon MD LAB BLOOD ORDERABLES Final Resu lt [facility] Department [place] [address] documented in this encounter Visit Diagnoses Diagnosis Low bone mass- Primary Low bone mass Low bone mass documented in this encounter Discontinued Medications Medication Sig Discontinue Reason Start Date End Da te adalimumab (HUMIRA PEN) 40 mg/0.8 mL pen injector kitIndications:Crohn's Disease Inject 40 mg SQ every 7 days - PA approved thru #[id number] starting 02/23/18 thru 03/25/19 03/25/2018 05/06/2018 documented as of this encounter Historical Medications * This list may reflect changes made after this encounter. ADALIMUMAB SUBQ Inject 40 mg under the skin once every 2 weeks. 02/09/2014 07/30/2018 added in this encounter Care Teams Psychotherapist Counselor Relationship Specialty Start Date End Date Trenton Bess MD PCP - General 04/30/17 07/24/18 documented as of this encounter
--- OUTSIDE RECORDS SUMMARY | 2024-07-09 05:27 | XMS_ITS | Encounter Summary ---
Author Organization [facility] Address [address] [place] [address] Phone Care Team Providers Care Mechanical Cad Drafter Name Role Phone Trenton Bess MD Primary Care Provider [phone] Reason for Referral * Diagnostic Imaging (Routine) - Closed Specialty Diagnoses / Procedures Referred By Contac t Referred To Contact Radiology Diagnoses Crohn's disease of both small and large intestine with complication (HCC) Procedures MRI Abdomen Enterography W WO Contrast Eliana Quevedo MD Phone: tel: fax: [address] [address] Referral ID Status Reason Start Date Expiration Date Visits Re quested Visits Authorized [id number] Closed 05/16/2018 06/14/2018 1 1 CAL NUMERICAL CONTROL OPERATOR Encounter Details Date Type Department Care Team (Late st Contact Info) Description 05/06/2018 Orders Only [facility] [address] [facility] 8th [place] [address] [place] [address] Shanika Braun Crohn's disease of both small [...] file Legal Sex Male 11:11 PM MEDICAL NUMERICAL CONTROL OPERATOR Gender Identity Not on file Sexual Orientation Not on file documented as of this encounter Progress Notes * Shanika Braun - 05/06/2018 12:17 PM CST Pt scheduled for MRE on 05/24/18 at 12:30 pm with an 11:00 am arrival at [facility], NPO 4 hours. LMOM informing the pt of the appointment. Asked pt to call back and confirm CAL NUMERICAL CONTROL OPERATOR documented in this encounter Plan of Treatment Not on file documented as of this encounter Results * MRI Abdomen Enterography W WO Contrast (05/24/2018 12:46 PM MEDICAL NUMERICAL CONTROL OPERATOR) Anatomical Region Laterality Modality Body N/A Magnetic Resonan ce 05/24/2018 1:13 PM MEDICAL NUMERICAL CONTROL OPERATOR Impressions 05/24/2018 1:14 PM MEDICAL NUMERICAL CONTROL OPERATOR 1. ??Stable postsurgical changes of ileocolonic resection and primary anastomosis with improving perianastomotic inflammation. ??On today's examination, there is 1.5 cm of distal neoterminal ileum demonstrating mild active inflammation. Otherwise, no fistulization, stenosis or fluid collections are seen. Dictated by: Nicholas Lucio M.D. Electronically signed by: Cristy Curran M.D. Narrative 05/24/2018 1:14 PM MEDICAL NUMERICAL CONTROL OPERATOR EXAMINATION: MAGNETIC RESONANCE IMAGING OF THE ABDOMEN [...] Quevedo MD IMG MRI PROCEDURES Final Result documented in this encounter Visit Diagnoses Diagnosis Crohn's disease of both small and large intestine with complication (HCC)- Primary Crohn's disease of both small and large intestine with complication (HCC) documented in this encounter Care Teams Mechanical Cad Drafter Relationship Specialty Start Date End Date Trenton Bess MD PCP - General 04/30/17 07/24/18 documented as of this encounter
--- OUTSIDE RECORDS SUMMARY | 2024-07-09 05:27 | XMS_ITS | Encounter Summary ---
Author Organization [facility] Address [address] [place] [address] Phone Care Team Providers Care Health Educator Name Role Phone Trenton Bess MD Primary Care Provider [phone] Encounter Details Date Type Department Care Team (Late st Contact Info) Description 02/11/2018 8:00 AM CDT Office Visit [facility] Gastroenterology [address] [facility] Medical Office Building 2 [address] [place] [address] Veronica Morse, LISSETTE [address] [place], [place] [id number] Diarrhea, unspecified type (Primary Dx) Social History Tobacco Use Types Packs/Day Years Used Date Smoking Tobacco: Never Smokeless Tobacco: Never Alcohol Use Standard Drinks/Week Comments No 0 (1 standard drink = 0.6 oz pur e alcohol) Sex and Gender Information Value Date Recorded Sex Assigned at Not on file 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 Gender Identity Not on file Sexual Orientation Not on file documented as of this encounter Last Filed Vital Signs Vital Sign Reading Time Taken Comments Blood Pressure 122/75 02/11/2018 8:11 AM CDT Pulse 74 02/11/2018 8:11 AM CDT Temperature 36.8 ??C (98.2 ??F) 02/11/2018 8:11 AM CD T Respiratory Rate - - Oxygen Saturation - - Inhaled Oxygen Concentration - - Weight 80.7 kg (178 lb) 02/11/2018 8:11 AM CDT Height 172.7 cm (5' 8 ) 02/11/2018 8:11 AM CDT Body Mass Index 27.06 02/11/2018 8:11 AM CDT documented in this encounter Patient Instructions * Patient Instructions* Veronica Morse NP - 02/11/2018 8:00 AM CDT 1. Please offer stool sample to rule out infectious cause of diarrhea 2. Try Benefiber Fiber supplement to thicken stool 3. If Benefiber sufficient can take half tablet of Imodium as needed for diarrhea 4. Take 1 tablet of Colestid before fatty meals to reduce burning diarrhea. Can increase this dose to up to 4 tablets per meal if needed 5. Plan for repeat colonoscopy in 3-6 months 6. Return to clinic in 4 months 7. Please follow Dr. Mckeon's instructions regarding calcium supplementation documented in this encounter Ordered Prescriptions Prescription Sig Dispense Quantity Refills Last Filled Start Date End Date loperamide (IMODIUM) 2 mg capsuleIndications :Diarrhea, unspecified type Take 1 capsule (2 mg total) by mouth 4 (four) times a day as needed for diarrhea. 1/2 to 1 tab as needed for diarrhea 60 capsule 11 02/11/2018 9 colestipol (COLESTID) 1 gram tabletIndications: Diarrhea, unspecified type Take 1 tablet (1 g total) by mouth 4 (four) times a day as needed (fat driven diarrhea). 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 Phenotype and distribution: Stricturing Primarily involving the ileum with some concern for fistulizing disease though no evidence of fistula penetrating colon lumen during surgery in 2018 Medical therapies: Previously treated with prednisone for at least 2 continuous years, flagyl, Asacol, Azathioprine ([id number]), Remicade ([id number], switched for insurance purposes), Humira ([id number], 6-month insurance interruption, re- initiation 10/2016, with [...] who presents today for follow-up after recent surgery. Nic was last seen in clinic on 12/07/2017 at which time he was reporting approximately 1-2 bowelmovements daily. He was anxious to move forward with surgery for fistula takedown and ileocecectomy. He was following with Dr. Mckeon to manage osteoporosis. He was in advised to move forward with surgery and follow-up not long after the procedure. We recommended that he restart his Humira not long after his surgery to avoid recurrence of disease. He underwent an ileocecectomy with Dr. Portillo on 01/11/2018. Dr. Portillo did not feel the suspected fistula penetrated to the lumen of the sigmoid this area was repaired. He was advised to restart his Humira approximately 2 weeks after the procedure. He complained of severe right lower quadrant pain and fever last Sunday. Had a CT scan which showed inflammation in areas of the anastomosis and areas within the ileum and sigmoid favoring recurrence of disease and postoperative changes. As he had had peripheral neuropathy with long-term use ofimmediate release Flagyl, he was offered ciprofloxacin and balsalazide by Dr. Portillo. He states that he had tolerated the extended release Flagyl for many years. Patient reports that since Sunday the pain has resolved. The fever which reached approximately 101 responded rapidly to Tylenol and lasted only a a day. Currently has foul-smelling loose to liquid stools 4 to 5 times a day. He was having some problems with burning stools but has since changed his diet to reduce fried foods. Denies any mouth sores, rashes, malaise, or weight loss. Review of Systems: On complete review of [...] 1,000 Units by mouth every morning. ??? ciprofloxacin (CIPRO) 500 mg tablet Take 1 tablet (500 mg total) by mouth 2 (two) times a day for 14 days. 28 tablet 0 ??? ergocalciferol (VITAMIN D) 50,000 unit capsule Take 1 capsule (50,000 Units total) by mouth every 30 (thirty) days. 5 capsule 0 ??? folic acid (FOLVITE) 1 mg tablet every morning. ??? mesalamine (LIALDA) 1.2 gram EC tablet Take two tablets by mouth daily with food 60 tablet 0 ??? methotrexate 2.5 mg tablet TAKE 10 TABLETS WEEKLY.(all at once on the same day)- safety labs due every 3 months, DUE 10/2017 ??? multivitamin capsule Take 1 capsule by mouth every morning. ??? omega 5-vnn-pqg-fish oil 300-1,000 mg capsule 1 capsule every morning. ??? ondansetron (ZOFRAN) 8 mg tablet TAKE 1 TABLET 3 TIMES DAILY starting the day before taking theMethotrexate, the day of and the day after and thenonly as needed ??? colestipol (COLESTID) 1 gram tablet Take 1 tablet (1 g total) by mouth 4 (four) times a day as needed (fat driven diarrhea). 120 tablet 3 ??? loperamide (IMODIUM) 2 mg capsule Take 1 capsule (2 mg total) by mouth 4 (four) times a day as needed for diarrhea. 1/2 to 1 tab as needed for diarrhea 60 capsule 11 ??? neomycin (MYCIFRADIN) 500 mg tablet Take two tablets at 1pm, 2pm, and 10pm the day before surgery. (Patient not taking: Reported on 02/07/2018 ) 6 tablet 0 No current facility-administered medications for this visit. Physical Exam: BP 122/75 (BP Location: Right arm, Patient Position: Sitting) Pulse 74 Temp 36.8 ??C (98.2 ??F) Ht 172.7 cm (5' 8 ) Wt 80.7 kg (178 lb) BMI 27.06 kg/m?? General: Awake, alert, no apparent distress, well nourished HEENT: Normocephalic, atraumatic, anicteric, conjunctiva normal, no nasal drainage, oropharynx clear without erythema or exudate Neck: Supple, no lymphadenopathy, no obvious masses Pulmonary: Clear to auscultation bilaterally Cardiovascular: Regular rhythm and rate, normal S1/S2, no murmurs/rubs/gallops Abdomen: Soft, mild tenderness in the right lower quadrant, non-distended, normoactive bowel sounds, no palpable masses, no rebound or guarding. Well approximated midline scar in scabs lap site Extremities: Warm and well perfused, no cyanosis, no clubbing, no edema Skin: Warm, dry, no rashes Neuro: No focal deficits Psych: Normal affect and mood Assessment/Plan: Crohn's disease of both small and large intestine (CMS/HCC) 1. Continue Humira and methotrexate 2. Consider rechecking his Humira levels after he has had several more doses as he may be losing response to this therapy ( he has not yet been treated with Cimzia or Stelara) 3. Plan for repeat colonoscopy in 3-6 months Osteoporosis Please follow Dr. Mckeon's instructions regarding calcium supplementation (notation for 24hr urine calcium provided to patient). Likely on too much calcium supplementation between his multivitamin andcalcium supplements.This can contribute to kidney stones especially in the context of ileal Crohn'sdisease. Diarrhea due to malabsorption 1. Please offer stool sample to rule out infectious cause of diarrhea 2. Try Benefiber Fiber supplement to thicken stool 3. If Benefiber sufficient can take half tablet of Imodium as needed for diarrhea 4. Take 1 tablet of Colestid before fatty meals to reduce burning diarrhea. Can increase this dose to up to 4 tablets per meal if needed Follow up: Would like him to follow up in approximately 3 months to assure that he is continuing todo well.. If his colonoscopy is normal and he is asymptomatic, we can consider extending his visit interval to 6 months.The patient was given ample opportunity to ask any questions and their questions were answered. documented in this encounter Miscellaneous Notes * Assessment & Plan Note - Veronica Morse NP - 02/11/2018 9:09 AM CDTAssociated Problem(s): Diarrhea due to malabsorption 1. Please offer stool sample to rule out infectious cause of diarrhea 2. Try Benefiber Fiber supplement to thicken stool 3. If Benefiber sufficient can take half tablet of Imodium as needed for diarrhea 4. Take 1 tablet of Colestid before fatty meals to reduce burning diarrhea. Can increase this dose to up to 4 tablets per meal if needed * Assessment & Plan Note - Veronica Morse NP - 02/11/2018 9:03 AM CDTAssociated Problem(s): Osteoporosis Please follow Dr. Mckeon's instructions regarding calcium supplementation (notation for 24hr urine calcium provided to patient). Likely on too much calcium supplementation between his multivitamin andcalcium supplements.This can contribute to kidney stones especially in the context of ileal Crohn'sdisease. * Assessment & Plan Note - Veronica Morse NP - 02/11/2018 9:02 AM CDTAssociated Problem(s): Crohn's disease of both small and large intestine (HCC) 1. Continue Humira and methotrexate 2. Consider rechecking his Humira levels after he has had several more doses as he may be losing response to this therapy ( he has not yet been treated with Cimzia or Stelara) 3. Plan for repeat colonoscopy in 3-6 months 4. He is up-to-date with vaccines. His likely candidate for Shigrix once this becomes more available documented in this encounter Plan of Treatment Not on file documented as of this encounter Results * Stool culture Stool (02/11/2018 9:47 AM CDT) Direct Specimen Exam Shiga Toxin Testing: Negative for: Shigatoxin of enterohemorrhagic E.coli. CRUZ CELESTE Comment:Testing performed by : [facility], [facility], [place]., [address] Report Final Report: No Salmonella, Shigella, Aeromonas, Plesiomonas, Yersinia, Campylobacter, or E.coli 0157:H7 isolated CRUZ CELESTE Comment:Testing performed by : [facility], [address] [place] [address]., [address] Stool 02/11/2018 9:47 AM CDT 02/11/2018 3:56 PM CDT Narrative CRUZ CELESTE - 02/15/2018 10:23 AM CDT This specimen is screened for the presence of Aeromonas, Campylobacter, E.coli-0157:H7, Plesiomonas, Salmonella, Shigella, Shiga Toxin producing E. coli, and Yersinia. Veronica Morse NP LAB MICROBIOLO GY - GENERAL ORDERABLES Final Result [facility] [id number] [email or web address] [place], [place] [id number] * Clostridium difficile toxin Stool (02/11/2018 9:47 AM CDT) C Difficile Toxin A/B Negative Negative CRUZ VILLARREAL Comment:Testing performed by : [facility], [address] [place] [address]., [address] Stool 02/11/2018 9:47 AM CDT 02/11/2018 3:56 PM CDT Narrative CRUZ VILLARREAL - 02/11/2018 5:47 PM CDT Veronica Morse NP LAB MICROBIOLO GY - GENERAL ORDERABLES Final Result [facility] [address] [email or web address] [place] [address] documented in this encounter Visit Diagnoses Diagnosis Diarrhea, unspecified type- Primary Diarrhea, unspecified type documented in this encounter Care Teams Health Educator Relationship Specialty Start Date End Date Trenton Bess MD PCP - General 04/30/17 07/24/18 documented as of this encounter
--- OUTSIDE RECORDS SUMMARY | 2024-07-09 05:27 | XMS_ITS | Encounter Summary ---
Author Organization [facility] Address [address] [place] [address] Phone Care Team Providers Care Cushion Spring Assembler Name Role Phone Trenton Bess MD Primary Care Provider [phone] Encounter Details Date Type Department Care Team (Late st Contact Info) Description 05/01/2018 Documentation [facility] Gastroenterology [facility] 8th [place] [address] [place] [address] Shanika Braun Social History Tobacco Use Types Packs/Day Years Used Date Smoking Tobacco: Never Smokeless Tobacco: Never Alcohol Use Standard Drinks/Week Comments No 0 (1 standard drink = 0.6 oz pur e alcohol) Sex and Gender Information Value Date Recorded Sex Assigned at Not on file 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 Explained that the Humira levels were good andno changes were made. Awaiting call back documented in this encounter Plan of Treatment Not on file documented as of this encounter Visit Diagnoses Not on filedocumented in this encounter Care Teams Cushion Spring Assembler Relationship Specialty Start Date End Date Trenton Bess MD PCP - General 04/30/17 07/24/18 documented as of this encounter
--- OUTSIDE RECORDS SUMMARY | 2024-07-09 05:27 | XMS_ITS | Encounter Summary ---
Author Organization [facility] Address [address] [place] [address] Phone Care Team Providers Care Pressure Vessel Inspector Name Role Phone Trenton Bess MD Primary Care Provider [phone] Encounter Details Date Type Department Care Team (Late st Contact Info) Description 03/01/2018 Telephone [facility] Gastroenterology [facility] 8th [place] [address] [place] [address] Eliana Quevdeo MD [address] [place] [address] Social History Tobacco Use Types Packs/Day Years Used Date Smoking Tobacco: Never Smokeless Tobacco: Never Alcohol Use Standard Drinks/Week Comments No 0 (1 standard drink = 0.6 oz pur e alcohol) Sex and Gender Information Value Date Recorded Sex Assigned at Not on file 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 120 tablet 1 03/01/2018 9 documented in this encounter Miscellaneous Notes * Telephone Encounter - Mona Esqueda MA - 03/01/2018 3:03 PM CDT S/w pt and informed of below. Pt verbalized understanding. Script for Levsin sent to pharmacy and pt has loperamide still. * Telephone Encounter - Eliana Quevedo MD - 03/01/2018 2:43 PM CDT The recent imaging this month is normal in the setting of the pain - was previously oferent Cipro but he did not take and the pain resolved Try immodium to make the stool frequency less and Levsin for pain * Telephone Encounter - Mona Esqueda MA - 03/01/2018 2:20 PM CDT Pt called c/o right sided pain (like last time, but not as bad) started about 10 am today. Stools are still loose, having 2-3 BM in a day. Pt also c/o a little fatigue. Denies fever, diarrhea, constipation, nausea, vomiting, blood, mucus, bloating, decreased appetite. Last Humira dose philippe 02/22, last MTX done today. Pt would like to know what to do. Pharmacy verified. documented in this encounter Plan of Treatment Not on file documented as of this encounter Visit Diagnoses Diagnosis Crohn's disease of both small and large intestine without complication (CMS/HCC) (HCC)- Primary documented in this encounter Care Teams Pressure Vessel Inspector Relationship Specialty Start Date End Date Trenton Bess MD PCP - General 04/30/17 07/24/18 documented as of this encounter
--- OUTSIDE RECORDS SUMMARY | 2024-07-09 05:27 | XMS_ITS | Encounter Summary ---
Author Organization [facility] Address [address] [place] [address] Phone Care Team Providers Care Tiller Worker Name Role Phone Trenton Bess MD Primary Care Provider Encounter Details Date Type Department Care Team (Late st Contact Info) Description 01/25/2018 Telephone [facility] [address] [address] [place] [id number] [place] [address] Social History Tobacco Use Types Packs/Day Years Used Date Smoking Tobacco: Never Smokeless Tobacco: Never Alcohol Use Standard Drinks/Week Comments No 0 (1 standard drink = 0.6 oz pur e alcohol) Sex and Gender Information Value Date Recorded Sex Assigned at Not on file 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
--- OUTSIDE RECORDS SUMMARY | 2024-07-09 05:27 | XMS_ITS | Encounter Summary ---
Author Organization [facility] Address [address] [place] [address] Phone Care Team Providers Care District Claims Manager Name Role Phone Trenton Bess MD Primary Care Provider [phone] Encounter Details Date Type Department Care Team (Late st Contact Info) Description 04/10/2018 Documentation [facility] Gastroenterology [facility] 8th [place] [address] [place] [address] Shanika Braun Social History Tobacco Use Types Packs/Day Years Used Date Smoking Tobacco: Never Smokeless Tobacco: Never Alcohol Use Standard Drinks/Week Comments No 0 (1 standard drink = 0.6 oz pur e alcohol) Sex and Gender Information Value Date Recorded Sex Assigned at Not on file 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 Awaiting call back documented in this encounter Plan of Treatment Not on file documented as of this encounter Visit Diagnoses Not on filedocumented in this encounter Care Teams District Claims Manager Relationship Specialty Start Date End Date Trenton Bess MD PCP - General 04/30/17 07/24/18 documented as of this encounter
--- OUTSIDE RECORDS SUMMARY | 2024-07-09 05:27 | XMS_ITS | Encounter Summary ---
Author Organization [facility] Address [address] [place] [address] Care Team Providers Care Water Pollution Specialist Name Role Phone Trenton Bess MD Primary Care Provider [phone] Reason for Referral * Diagnostic Imaging (Routine) - Closed Specialty Diagnoses / Procedures Referred By Contac t Referred To Contact Radiology Diagnoses Right lower quadrant abdominal pain Procedures CT Abdomen Pelvis W Contrast Antonio Portillo MD Phone: tel: fax: [address] [address] Referral ID Status Reason Start Date Expiration Date Visits Re quested Visits Authorized [id number] Closed 02/06/2018 03/07/2018 1 1 Reason for Visit * Diagnostic Imaging (Routine) - Closed Specialty Diagnoses / Procedures Referred By Contac t Referred To Contact Radiology Diagnoses Right lower quadrant abdominal pain Procedures CT Abdomen Pelvis W Contrast Antonio Portillo MD Phone: tel: fax: [address] [address] Referral ID Status Reason Start Date Expiration Date Visits Re quested Visits Authorized [id number] Closed 02/06/2018 03/07/2018 1 1 Encounter Details Date Type Department Care Team (Latest Contact Info) Description 02/06/2018 11:35 AM CDT - 02/06/2018 11:59 PM CDT Hospital Encounter [facility] Radiology [facility] [address] [place] [address] Antonio Portillo MD [address] [phone] [address] [place] [address] Right lower quadrant abdominal pain Discharge Disposition: Discharge to home or self care Social History Tobacco Use Types Packs/Day Years Used Date Smoking Tobacco: Never Smokeless Tobacco: Never Alcohol Use Standard Drinks/Week Comments No 0 (1 standard drink = 0.6 oz pur e alcohol) Sex and Gender Information Value Date Recorded Sex Assigned at Not on file 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 28 tablet 02/06/2018 8 adalimumab (HUMIRA PEN) 40 mg/0.8 mL [...] 1,000 Units by mouth every morning. 9 ergocalciferol (VITAMIN D) 50,000 unit capsuleIndications :Osteoporosis, unspecified osteoporosis type, unspecified pathological fracture presence Take 1 capsule (50,000 Units total) by mouth every 30 (thirty) days. 5 capsule 01/15/2018 8 folic acid (FOLVITE) 1 mg tablet every morning. 01/25/2017 8 mesalamine (LIALDA) 1.2 gram EC tabletIndications: Crohn's Disease Take two tablets by mouth daily with food 60 tablet 02/06/2018 8 methotrexate 2.5 mg tablet TAKE 10 TABLETS WEEKLY.(all at once on the same day)- safety labs due every 3 months, DUE 10/201701/25/2017 8 neomycin (MYCIFRADIN) 500 mg tablet Take two tablets at 1pm, 2pm, and 10pm the day before surgery. 6 tablet 12/21/2017 8 omega 1-llj-mfd-fish oil 300-1,000 mg capsule 1 capsule every [...] CONTRAST Schedule Routine, Read Routine (OP Routine) 02/06/2018 12:17 PM CDT Right lower quadrant abdominal pain documented in this encounter Results * CT Abdomen Pelvis W Contrast (02/06/2018 [...] ileum. Electronically signed by: Jefferson Kirkpatrick M.D. us Antonio Portillo MD IMG CT PROCEDURES Fi nal Result documented in this encounter Visit Diagnoses Diagnosis Right lower quadrant abdominal pain documented in this encounter Administered Medications Inactive Administered Medications - up to 3 most recent administrations Medication Order MAR Action Action Date Dose Rate Site ioversol (OPTIRAY 350) syringe syringe 100 mL 100 mL, intravenous, Once in imaging, contrast, Starting on Sun02/06/18 at 1210, For 1 dose Given 02/06/2018 12:14 PM CDT 100 mL documented in this encounter Orders Medications Ordered That Nilo ht Not Have Been Administered Count Last Ordered Date First Ordered Date ioversol (OPTIRAY 350) syrin ge syringe 100 mL 1 02/06/2018 documented in this encounter Care Teams Water Pollution Specialist Relationship Specialty Start Date End Date Trenton Bess MD PCP - General 04/30/17 07/24/18 documented as of this encounter
--- OUTSIDE RECORDS SUMMARY | 2024-07-09 05:27 | XMS_ITS | Encounter Summary ---
Author Organization [facility] Address [address] [place] [id number] Care Team Providers Care Photographer Helper Name Role Phone Trenton Bess MD Primary Care Provider [phone] Lanre Parekh DO Primary Care Provide r Trenton Bess MD Primary Care Provider [phone] Lanre Parekh DO Primary Care Provide r Eliana Quevedo MD Unavailable [phone] Encounter Details Date Type Department Care Team (Late st Contact Info) Description 01/25/2018 Documentation [facility] [address] [place] [address] Felicity Naik RN Social History Tobacco Use Types Packs/Day Years Used Date Smoking Tobacco: Never Smokeless Tobacco: Never Alcohol Use Standard Drinks/Week Comments No 0 (1 standard drink = 0.6 oz pur e alcohol) Sex and Gender Information Value Date Recorded Sex Assigned at Not on file 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 Gender Identity Not on file Sexual Orientation Not on file documented as of this encounter Plan of Treatment Not on file documented as of this encounter Visit Diagnoses Not on filedocumented in this encounter Care Teams Photographer Helper Relationship Specialty Start Date End Date Trenton Bess MD PCP - General 04/30/17 07/24/18 Lanre Parekh DO [address] [place] [address] PCP - General Family Medicine 07/25/18 07/28/18 Trenton Bess MD PCP - General 07/29/18 01/22/19 Lanre Parekh DO [address] [place] [address] PCP - General Family Medicine 01/23/19 Eliana Quevedo MD [address] [place] [address] Referring Physician Gastroenterology 11/07/22 documented as of this encounter
--- OUTSIDE RECORDS SUMMARY | 2024-07-09 05:27 | XMS_ITS | Encounter Summary ---
Author Organization [facility] Address [address] [place] [address] Phone Care Team Providers Care Hot Tamale Man Name Role Phone Trenton Bess MD Primary Care Provider [phone] Encounter Details Date Type Department Care Team (Late st Contact Info) Description 04/16/2018 Orders Only [facility] 8th [place] [address] [place] [id number] Padma Mendoza RN Social History Tobacco Use Types Packs/Day Years Used Date Smoking Tobacco: Never Smokeless Tobacco: Never Alcohol Use Standard Drinks/Week Comments No 0 (1 standard drink = 0.6 oz pur e alcohol) Sex and Gender Information Value Date Recorded Sex Assigned at Not on file 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 Reorder 01/25/2017 04/16/2018 documented as of this encounter Care Teams Hot Tamale Man Relationship Specialty Start Date End Date Trenton Bess MD PCP - General 04/30/17 07/24/18 documented as of this encounter
--- OUTSIDE RECORDS SUMMARY | 2024-07-09 05:28 | XMS_ITS | Encounter Summary ---
Author Organization [facility] Address [address] [place] [address] Care Team Providers Care Patient Case Coordinator Name Role Phone Trenton Bess MD Primary Care Provider [phone] Encounter Details Date Type Department Care Team (Late st Contact Info) Description 01/11/2018 7:25 AM CDT Anesthesia Event Operating Room 1 [place] [id number] Osiel Winston MD [address] [place] [address] Anesthesia Record Procedure Summary Procedure Name Responsible Anesthesiologist Anesthesia Start Time Anesthesia Stop Time LAPAROSCOPIC RESECTION - ILEOCOLIC (Abdomen) Osiel Winston MD 01/11/18 0725 01/11/18 1021 Events Date Time Event Comment 01/11/2018 0720 0725 An Start 0730 In Room 0730 An Start Data 0739 An Induction The patient was reevaluated immediately before moderate or deep sedation use and before anesthesia induction. 0741 An Intubation 0751 Anesthesia Ready 0802 Proc Start 0802 Incision Start 0808 EDP Esophageal dopp ler monitor placed for intra-operative fluid optimization. Please see intra-operative documentation regarding fluid challenges. 0942 Quick Note 1003 Proc Fin 1007 An Extubation 1012 an stop data 1013 Out of Room 1021 Handoff to RN I completed my handoff [...] disposition at the time of handoff: PACU 1021 An Stop Meds Name Total midazolam PF 2 mg lidocaine 1 % PF 60 mg fentaNYL 250 mcg propofol 200 mg rocuronium 70 mg glycopyrrolate 0.4 mg neostigmine injection 1 mg/mL 3 mg ertapenem (INVANZ) 1000 mg in 50 mL sodi um chloride 0.9% (premix) 1,000 mg ondansetron 8 mg tablet 8 mg famotidine PF 20 mg Lactated Ringer's (LR) infusion 600 mL LR 500 mL * Agents Name O2% N2O O2 Air Sevoflurane Inspired Sevoflurane * Blood No blood administrations on file. Lines, Drains, and Airways Type Details Placement Removal Peripheral IV Placement Date: 01/11/18; Placement Time: 05; Catheter Size: 18 G; Orientation: Left; Location: Forearm; Site Prep: Alcohol; Technique: Anatomical landmarks; Inserted by: Randi Soriano RN; Insertion Attempts: 1; Patient Tolerance: Tolerated well; Removal Date: 01/13/18; Removal Time: 2024; Removal Reason: Infiltrated 01/11/18 0530 by Elma Garcia RN 01/13/182024 by Yael Keating, RN ETT Placement Date: 01/11/18; Placement Time: 742 (created via procedure documentation); Mask Ventilation: 1; Technique: Direct laryngoscopy; Type: ETT - single; Single Lumen Tube Size: 8 mm; Cuffed: Yes; Laryngoscope: Epifanio; Blade Size: 4; Location: Oral; Grade View: Grade IIa; Insertion Attempts: 1; Placement Verification: Auscultation, Capnometry; Removal Date: 01/11/18; Removal Time: 1007 01/11/18 0743 by Bulmaro Singh CRNA 01/11/18 1007 by Bulmaro Singh CRNA Urethral Catheter Placement Date: 01/11/18; Placement Time: 07; Inserted by: Boogie Aparicio MD; Type: Non-latex; Size: 16 Fr.; Balloon Size: 10 mL; Urine Returned: Yes; Removal Date: 01/12/18; Removal Time: 1356; Removal Reason: Per protocol 01/11/18 0745 by Malou Coulter RN 01/12/18 1356 by Haley Calle RN Peripheral IV Placement Date: 01/11/18; Placement Time: 744; Catheter Size: 18 G; Orientation: Left; Location: Hand; Site Prep: Alcohol; Insertion Attempts: 1; Patient Tolerance: Tolerated well; Removal Date: 01/14/18; Removal Time: 1607 01/11/18 0745 by Bulmaro Singh, CERTIFIED MEDICAL TRANSCRIPTIONIST 01/14/18 1607 by Jossy Easton RETIRED Surgical Site 01/11/18; 0939; Mid-line, Lower; Abdomen; 01/23/22; Not present on admission 01/11/18 0939 by Malou Coulter RN 01/23/22 0000 by Yeimy Vincent RN documented in this encounter Social History Tobacco Use Types Packs/Day Years Used Date Smoking Tobacco: Never Smokeless Tobacco: Never Alcohol Use Standard Drinks/Week Comments No 0 (1 standard drink = 0.6 oz pur e alcohol) Sex and Gender Information Value Date Recorded Sex Assigned at Not on file 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 Gender Identity Not on file Sexual Orientation Not on file documented as of this encounter OR Notes * Anesthesia Postprocedure Evaluation - Osiel Winston MD - 01/11/2018 11:16 AM CDT Patient: Nic Teran Procedure Summary Date: 01/11/18 Room / Location: [facility] OR [facility]OD 1 ROOM 330 / [facility] Anesthesia Start: 724 Anesthesia Stop: 1021 Procedures: LAPAROSCOPIC RESECTION - ILEOCOLIC (N/A Abdomen) Repair Fistula - Colon (N/A ) Proctosigmoidoscopy (N/A ) Diagnosis: Crohn's disease with complication, unspecified gastrointestinal tract location (CMS/HCC) (Crohn's disease with complication, unspecified gastrointestinal tract location (CMS/HCC) [K50.919]) Surgeon: Antonio Portillo MD Responsible Provider: Osiel Winston MD Anesthesia Type: PNB - single shot, general ASA Status: 2 Anesthesia Type: PNB - single shot, general Last vitals BP 124/78 (01/11/18 1100) Temp Pulse 66 (01/11/18 1100) Resp 18 (01/11/18 1100) SpO2 97 % (01/11/18 1100) Anesthesia Post Evaluation Patient location during evaluation: PACU Patient participation: complete - patient participated Level of consciousness: fully awake Pain score: 3 Pain management: adequate Airway patency: adequate Evidence of recall: no Anesthetic complications: no Cardiovascular status: acceptable Respiratory status: acceptable and nasal cannula Hydration status: acceptable Pt is: normothermic Nausea/Vomiting status: none * Anesthesia Procedure Notes - Bulmaro Singh - 01/11/2018 7:56 AM CDT Associated Order(s): ANESTHESIA INTUBATION Airway Patient location: OR Urgency: elective Date/time: 01/11/2018 7:43 AM Indications for airway management: anesthesia Difficult airway: no Staff: Supervising provider: OSIEL WINSTON Placed by: Other staff: BULMARO SINGH Emergent airway documentation: Risks and benefits discussed: yes Consent obtained: yes Consent given by: patient Airway prep: Preoxygenated: yes Mask difficulty assessment: 1 - vent by mask Spontaneous ventilation during airway: absent Sedation level during airway: GA Final airway details: Final airway type: endotracheal airway Tube type: ETT ETT size: 8.0 mm Cuffed: yes Technique used for successful ETT placement: direct laryngoscopy Devices/Methods used in placement: intubating stylet and anterior pressure/BURP Insertion site: oral Blade type: Epifanio Blade size: 4 Cormack-Lehane (direct): grade IIa - partial view of glottis Cuff volume: 10 mL Cuff inflated with: air Placement verified by: auscultation and CO2 detection Airway secured with: silk tape Number of attempts: 1 * Anesthesia Preprocedure Evaluation - Osiel Winston MD - 01/09/2018 1:39 PM CDT [facility] Preoperative Evaluation Record [facility] at [facility] ([facility]) Anesthesia Evaluation Procedure(s): LAPAROSCOPIC RESECTION - ILEOCOLIC HISTORY HPI Nic Teran is a 27 y.o. male who is being evaluated prior to undergoing laparoscopic ileocolic resection for Crohn's disease . Past Medical History Information obtained from: patient. Neurological Pertinent negatives: seizures neuromuscular disease CVA/stroke TIA CEA ICA stenosis dementia/mild cognitive impairment carotid artery stent Cardiovascular Pertinent negatives: hypertension CAD DE CABG valvular heart disease valve replacement atrial fibrillation dysrhythmia - non-specific pacemaker/ICD PVD DVT/PE negative for CHF drug-eluting stent(s) bare metal stent(s) coronary angioplasty Respiratory Pertinent negatives: COPD asthma sleep apnea (JALYN) pulmonary hypertension no O2 use outside the hospital non-smoker Hepatic / Heme + History of anemia Pertinent negatives: liver disease history of thrombocytopenia history of Bulmaro positive Gastrointestinal + GERD - does not use medication. Asymptomatic. Pertinent negatives: hiatal hernia Renal / Pertinent negatives: renal disease dialysis nephrolithiasis Musculoskeletal/Pain Pertinent negatives: chronic pain chronic opioid use previous treatment for opioid use disorder Endocrine / Other + Rheumatological disease - Crohn's disease. Pertinent negatives: diabetes mellitus thyroid disease obesity (BMI >30) cancer history transplanted organ Functional Capacity Functional capacity: 4-6 METs Comments: Pt states that he walks daily 0.5-1 miles during the week and more on the weekend. Review of Systems + numbness/tingling (numbness in bilateral hands) + vision loss (occasional irits d/t Crohn's) + heartburn (pt reports heartburn last week) + abdominal pain (pt reports cramping yesterday) Pertinent negatives: productive cough; wheezing; SOB; recent cold/flu; fever; chest pain; palpitations; orthopnea; pedaledema; PND; Sickle Cell disease/trait; previous transfusion; transfusion reaction; melena/hematochezia; easy bruising; bleeding problems; syncope; dizziness; muscle weakness; chronic pain; hard of hearing; nausea; dysphagia; diarrhea; dentures/partials; chipped/loose teeth; diaphoresis; no unexpected weight change PAT Summary and Plans Cardiac risk classification of planned procedure: intermediate cardiac risk. Preoperative assessment status: lab tests ordered. Additional comments: Nic Teran is a 27 y.o. male who is being evaluated prior to undergoing anintermediate cardiac risk surgery. Revised Cardiac Risk Index factors are (none) for a total RCRI of 0 out of 6. Functional capacity is 4-6 METs. Obstructive sleep apnea (JALYN) screening status is STOP-Bang=2 suggesting low risk for JALYN. Blood bank needs for day of procedure: Type and Screen only Pending labs/tests include: CBC, BMP and T&S. Preoperative evaluation performed by Carmelina Syed NP on 01/09/18 at 2:08 PM. . Follow up note Labs reviewed and are without significant findings. Surgeon's office reviews laboratory results independently. CPAP process complete. Follow-up completed by: Cristiane Vázquez NP on 01/10/18 at 9:04 AM Patient Active Problem List Diagnosis ??? Crohn's disease of both small and large intestine (CMS/HCC) ??? History of high risk medication treatment ??? Iritis ??? Osteoporosis ??? Crohn's disease with complication (CMS/HCC) Past Medical History: Diagnosis Date ??? Anemia ??? Crohn's disease (CMS/HCC) ??? GERD (gastroesophageal reflux disease) ??? Iritis Past Surgical History: Procedure Laterality Date ??? COLONOSCOPY 2017 multiple ??? VASECTOMY 2018 Allergies Allergen Reactions ??? Flagyl [Metronidazole] Other (See comments) Neuropathy HOME MEDICATIONS : adalimumab (HUMIRA PEN) 40 mg/0.8 mL pen injector kit balsalazide (COLAZAL) 750 mg capsule calcium carbonate (OS-ANA) 1,500 mg (600 mg of elemental calcium) tablet ERGOCALCIFEROL, VITAMIN D2, ORAL folic acid (FOLVITE) 1 mg tablet methotrexate 2.5 mg tablet neomycin (MYCIFRADIN) 500 mg tablet omega 0-xdv-dcl-fish oil 300-1,000 mg capsule ondansetron (ZOFRAN) 8 mg tablet ondansetron ODT (ZOFRAN-ODT) 8 mg disintegrating tablet Current Outpatient Prescriptions: ??? adalimumab (HUMIRA PEN) 40 mg/0.8 mL pen injector kit ??? balsalazide (COLAZAL) 750 mg capsule ??? calcium carbonate (OS-ANA) 1,500 mg (600 mg of elemental calcium) tablet ??? ERGOCALCIFEROL, VITAMIN D2, ORAL ??? folic acid (FOLVITE) 1 mg tablet ??? methotrexate 2.5 mg tablet ??? neomycin (MYCIFRADIN) 500 mg tablet ??? omega 9-uic-aah-fish oil 300-1,000 mg capsule ??? ondansetron (ZOFRAN) 8 mg tablet ??? ondansetron ODT (ZOFRAN-ODT) 8 mg disintegrating tablet Social History Smoking Status ??? Former Smoker Smokeless Tobacco ??? Never Used Alcohol Use No Drug Use No Family History Problem Relation Age of Onset ??? Hypertension Mother Family history of hypertension - (Added by TW Conv) ??? Kidney failure Mother Family history of renal failure - (Added by Conv) ??? Hypertension Father Family history of hypertension - (Added by Conv) ??? Ulcerative colitis Mother's Sister PAT Physical Exam Airway Exam: Mallampati: II Cervical ROM: FROM TM distance: 3 Cardiovascular Exam: Rate: regular Rhythm: regular Pulmonary Exam: LCTA EENT Exam: trachea midline Dental Exam: Appears intact Skin Exam: Skin is warm and dry. Abdominal exam: Abdomen is soft. Bowel sounds are present. Current state: Patient's current state is cooperative. Vitals: 01/09/18 1335 01/09/18 1339 BP: 109/76 108/78 Pulse: 78 SpO2: 96% PT: No results found for [...] and allergies reviewed. Attestation: This PAT evaluation 01/09/2018. Airway Exam: Mallampati: II Cardiovascular Exam: Rate: regular Rhythm: regular Negative for Murmur Pulmonary Exam: LCTA, bilat Anesthesia Plan ASA 2 My patient is approved for the Anesthesia Controlled Medication protocol when under care of a CERTIFIED MEDICAL TRANSCRIPTIONIST Planned anesthesia: General and PNB - single shot Truncal: TAP nerve block - classical (posterior) Induction: Induction: intravenous. Postoperative Plan: Postoperative administration opioids intended. No postoperative mechanical ventilation intended. Patient's planned disposition post procedure is Floor. Informed Consent: Discussed plan with CERTIFIED MEDICAL TRANSCRIPTIONIST. Anesthesia plan and risks discussed with patient. [...] Procedure Name Priority Date/Time Associated Diagnosis Comments SD AN PROCEDURE PLACEHOLDER Routine 01/11/2018 7:56 AM CDT Procedure Note - Bulmaro Singh - 01/11/2018 7:56 AM CDTThis note is in progress. Airway Patient location: OR Urgency: elective Date/time: 01/11/2018 7:43 AM Indications for airway management: anesthesia Difficult airway: no Staff: Supervising provider: OSIEL WINSTON Placed by: Other staff: BULMARO SINGH Emergent airway documentation: Risks and benefits discussed: yes Consent obtained: yes Consent given by: patient Airway prep: Preoxygenated: yes Mask difficulty assessment: 1 - vent by mask Spontaneous ventilation during airway: absent Sedation level during airway: GA Final airway details: Final airway type: endotracheal airway Tube type: ETT ETT size: 8.0 mm Cuffed: yes Technique used for successful ETT placement: direct laryngoscopy Devices/Methods used in placement: intubating stylet and anteriorpressure/BURP Insertion site: oral Blade type: Epifanio Blade size: 4 Cormack-Lehane (direct): grade IIa - partial view of glottis Cuff volume: 10 mL Cuff inflated with: air Placement verified by: auscultation and CO2 detection Airway secured with: silk tape Number of attempts: 1 SD AN ELECTIVE ENDOTRACHEAL AIRWAY Routine 01/11/2018 7:56 AM CDT Procedure Note - Bulmaro Singh - 01/11/2018 7:56 AM CDTThis note is in progress. Airway Patient location: OR Urgency: elective Date/time: 01/11/2018 7:43 AM Indications for airway management: anesthesia Difficult airway: no Staff: Supervising provider: OSIEL WINSTON Placed by: Other staff: BULMARO SINGH Emergent airway documentation: Risks and benefits discussed: yes Consent obtained: yes Consent given by: patient Airway prep: Preoxygenated: yes Mask difficulty assessment: 1 - vent by mask Spontaneous ventilation during airway: absent Sedation level during airway: GA Final airway details: Final airway type: endotracheal airway Tube type: ETT ETT size: 8.0 mm Cuffed: yes Technique used for successful ETT placement: direct laryngoscopy Devices/Methods used in placement: intubating stylet and anteriorpressure/BURP Insertion site: oral Blade type: Epifanio Blade size: 4 Cormack-Lehane (direct): grade IIa - partial view of glottis Cuff volume: 10 mL Cuff inflated with: air Placement verified by: auscultation and CO2 detection Airway secured with: silk tape Number of attempts: 1 documented in this encounter Visit Diagnoses Not on filedocumented in this encounter Administered Medications Inactive Administered Medications - up to 3 most recent administrations Medication Order MAR Action Action Date Dose Rate Site ertapenem (INVANZ) 1000 mg in 50 mL sodium chloride 0.9% (premix) 1,000 mg, intravenous, at 100 mL/hr, Administer over 30 Minutes, Once, On Sun01/11/18 at 0800, For 1 dose, Pre-Op, Give within 60 minutes of incision. Do not mix with dextrose or other medications, Indications: Prophylaxis, SurgicalIndications:Prophylaxis , Surgical Given 01/11/2018 7:55 AM CDT 1,000 mg famotidine (PEPCID) injection Administer over 2 Minutes, As needed, heartburn, Starting on Sun01/11/18 at 0725, Anesthesia Intra-op Given 01/11/2018 7:25 AM CDT 20 mg fentaNYL (SUBLIMAZE) preservative free injection intravenous, As needed, Starting on Sun01/11/18 at 0739, Anesthesia Intra-op Given 01/11/2018 10:12 AM CDT 100 mcg Given 01/11/2018 8:16 AM CDT 50 mcg Given 01/11/2018 7:39 AM CDT 100 mcg glycopyrrolate (ROBINUL) injection intravenous, As needed, Starting on Sun01/11/18 at 0947, Anesthesia Intra-op Given 01/11/2018 9:47 AM CDT 0.4 mg Lactated Ringer's (LR) infusion Continuous PRN, Starting on Sun01/11/18 at 0745, Anesthesia Intra-op New Bag 01/11/2018 7:45 AM CDT lidocaine PF (XYLOCAINE) 10 mg/mL (1 %) preservative free injection As needed, Starting on Sun01/11/18 at 0739, Anesthesia Intra-op Given 01/11/2018 7:39 AM CDT 60 mg midazolam (VERSED) preservative free injection intravenous, As needed, Starting on Sun01/11/18 at 0725, Anesthesia Intra-op Given 01/11/2018 7:25 AM CDT 2 mg neostigmine (PROSTIGMIN) injection intravenous, As needed, Starting on Sun01/11/18 at 0947, Anesthesia Intra-op Given 01/11/2018 9:47 AM CDT 3 mg ondansetron (ZOFRAN) tablet As needed, nausea, vomiting, Starting on Sun01/11/18 at 0725, Anesthesia Intra-op Given 01/11/2018 7:25 AM CDT 8 m g propofol (DIPRIVAN) IV intravenous, As needed, Starting on Sun01/11/18 at 0739, Anesthesia Intra-op Given 01/11/2018 7:39 AM CDT 200 mg rocuronium (ZEMURON) injection intravenous, As needed, Starting on Sun01/11/18 at 0739, Anesthesia Intra-op Given 01/11/2018 7:58 AM CDT 20 mg Given 01/11/2018 7:39 AM CDT 50 mg documented in this encounter Orders Procedures Count Last Ordered Date First Orde red Date ANESTHESIA INTUBATION 1 01/11/2018 documented in this encounter Care Teams Patient Case Coordinator Relationship Specialty Start Date End Date Trenton Bess MD PCP - General 04/30/17 07/24/18 documented as of this encounter
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
--- OUTSIDE RECORDS SUMMARY | 2024-07-09 05:28 | XMS_ITS | Encounter Summary ---
Author Organization [facility] Address [address] [facility] [address] [place] [address] Phone Care Team Providers Care Automation Sales Manager Name Role Phone Trenton Bess MD Primary Care Provider [phone] Reason for Visit * Reason Comments Follow-up crohn's disease Encounter Details Date Type Department Care Team (Late st Contact Info) Description 12/20/2017 10:45 AM CDT Office Visit [facility] Surgery [address] [facility] 8th [place] [address] [place] [id number] Antonio Portillo MD [address] [facility] [phone] [address] [place] [address] Crohn's disease of both small and large intestine with fistula (CMS/HCC) (Primary Dx) Social History Tobacco Use Types Packs/Day Years Used Date Smoking Tobacco: Former Smokeless Tobacco: Never Alcohol Use Standard Drinks/Week Comments No 0 (1 standard drink = 0.6 oz pur e alcohol) Sex and Gender Information Value Date Recorded Sex Assigned at Not on file 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 Gender Identity Not on file Sexual Orientation Not on file documented as of this encounter Last Filed Vital Signs Vital Sign Reading Time Taken Comments Blood Pressure 130/94 12/20/2017 10:37 AM CDT Pulse 64 12/20/2017 10:37 AM CDT Temperature 36.6 ??C (97.8 ??F) 12/20/2017 10:37 AM C DT Respiratory Rate - - Oxygen Saturation - - Inhaled Oxygen Concentration - - Weight 82.6 kg (182 lb 3.2 oz) 12/20/2017 10:37 AM CDT Height 172.7 cm (5' 8 ) 12/20/2017 10:37 AM CDT Body Mass Index 27.7 12/20/2017 10:37 AM CDT documented in this encounter Progress Notes * Antonio Portillo MD - 12/20/2017 10:45 AM CDT Colon & Rectal Surgery Note Patient: Nic Teran : 1990 Chief complaint of terminal ileal Crohn's disease, requested to be seen by Eliana Beth* HPI: Mr. Teran is a 27 y.o. male with terminal [...] Mother's Sister Review of Systems: Refer to [employer], dated 12/20/2017 Vitals: Arrival Vitals [12/20/17 [...] 12/20/2017 12:53 PM documented in this encounter Plan of Treatment Not on file documented as of this encounter Visit Diagnoses Diagnosis Crohn's disease of both small and large intestine with fistula (HCC)- Primary documented in this encounter Care Teams Automation Sales Manager Relationship Specialty Start Date End Date Trenton Bess MD PCP - General 04/30/17 07/24/18 documented as of this encounter
--- OUTSIDE RECORDS SUMMARY | 2024-07-09 05:28 | XMS_ITS | Encounter Summary ---
Author Organization [facility] Address [address] [place] [address] Phone Care Team Providers Care Rental Sales Associate Name Role Phone Trenton Bess MD Primary Care Provider [phone] Encounter Details Date Type Department Care Team (Late st Contact Info) Description 12/07/2017 8:30 AM CDT Office Visit [facility] Gastroenterology [address] [facility] 8th [place] [address] [place] [phone] Veronica Morse, CLIENT FINANCE ANALYST [address] [place] [address] Crohn's disease of both small and large intestine without complication (CMS/HCC) (Primary Dx); History of high risk medication treatment Social History Tobacco Use Types Packs/Day Years Used Date Smoking Tobacco: Former Smokeless Tobacco: Never Sex and Gender Information Value Date Recorded Sex Assigned at Not on file 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 Gender Identity Not on file Sexual Orientation Not on file documented as of this encounter Last Filed Vital Signs Vital Sign Reading Time Taken Comments Blood Pressure 134/82 12/07/2017 8:50 AM CDT Pulse 80 12/07/2017 8:50 AM CDT Temperature 36.9 ??C (98.4 ??F) 12/07/2017 8:50 AM CD T Respiratory Rate - - Oxygen Saturation - - Inhaled Oxygen Concentration - - Weight 83.2 kg (183 lb 6.4 oz) 12/07/2017 8:50 A M CDT Height 172.7 cm (5' 8 ) 12/07/2017 8:50 AM CDT Body Mass Index 27.89 12/07/2017 8:50 AM CDT documented in this encounter Progress Notes * Veronica Morse, CLIENT FINANCE ANALYST - 12/07/2017 8:30 AM CDT Reason for visit: Follow-up for stricturing Crohn's disease. Problem List: Patient Active Problem List Diagnosis ??? Crohn's disease of both small and large intestine (CMS/HCC) ??? History of high risk medication treatment ??? Iritis ??? Osteoporosis HPI: Nic Teran is a 27 y.o. male with a past medical history of ileocolonic Crohn's disease dating back to 2004 currently maintained on methotrexate and Humira who presents today for follow-up. Patient was last seen in Dr. Quevedo clinic on May 17, 2017 at which time he was doing well with approximately 1-2 bowel movements daily associated with blood urgency or tenesmus. He complained of some mild bilateral knee pain. He reported compliance with his medications and planned to follow with Dr. Mckeon for his osteoporosis. Patient presents today reporting that continues to do well with approximately 1- 2 bowel movements daily. He is scheduling surgery for December for takedown of his fistula and approximately 8 cm of persistent stricturing ileal disease. Levels of Humira were noted to be appropriate in May. He had labs on 11/23 but admits he is not done the urine studies and vitamin D that Dr. Mckeon had ordered in August. He is anxious about surgery and states he wanted to schedule surgery in the summer as he sickmuch the winter with 2 bouts flu. Otherwise tolerating his medications. Review of Systems: On complete review of systems, all other systems are negative. Allergies Allergen Reactions ??? Flagyl [Metronidazole] Other (See comments) Neuropathy Current Outpatient Prescriptions Medication Sig Dispense Refill ??? adalimumab (HUMIRA PEN) 40 mg/0.8 mL pen injector kit HUMIRA 40MG/0.8ML KIT. INJECT 40MG PEN SQevery 7 days1 KIT=2 BOXES/PENS( labs due again in 10/2017) ??? balsalazide (COLAZAL) 750 mg capsule TAKE 3 CAPSULES 3 TIMES DAILY.( clarified script) ??? calcium carbonate (OS-ANA) 1,500 mg (600 mg of elemental calcium) tablet daily. ??? ERGOCALCIFEROL, VITAMIN D2, ORAL 1000 mg daily ??? folic acid (FOLVITE) 1 mg tablet daily. ??? methotrexate 2.5 mg tablet TAKE 10 TABLETS WEEKLY.(all at once on the same day)- safety labs due every 3 months, DUE 10/2017 ??? omega 5-mtd-sis-fish oil 300-1,000 mg capsule daily. ??? ondansetron (ZOFRAN) 8 mg tablet TAKE 1 TABLET 3 TIMES DAILY starting the day before taking theMethotrexate, the day of and the day after and thenonly as needed No current facility-administered medications for this visit. Physical Exam: BP 134/82 Pulse 80 Temp 36.9 ??C (98.4 ??F) Ht 172.7 cm (5' 8 ) Wt 83.2 kg (183 lb 6.4 oz) BMI 27.89 kg/m?? General: Awake, alert, no apparent distress, well nourished HEENT: Normocephalic, atraumatic, anicteric, conjunctiva normal, no nasal drainage, oropharynx clear without erythema or exudate Neck: Supple, no lymphadenopathy, no obvious masses Pulmonary: Clear to auscultation bilaterally Cardiovascular: Regular rhythm and rate, normal S1/S2, no murmurs/rubs/gallops Abdomen: Soft, non-tender, non-distended, normoactive bowel sounds, no palpable masses, no rebound or guarding Extremities: Warm and well perfused, no cyanosis, no clubbing, no edema Skin: Warm, dry, no rashes Neuro: No focal deficits Psych: Normal affect and mood Labs: Conversion Encounter on 11/23/2017 Component Date Value Ref Range Status ??? Albumin/Globulin Ratio 11/23/2017 1.6 1.0 - 2.5 (calc) Final ??? Total Protein 11/23/2017 7.4 6.1 - 8.1 grams per deciliter Final ??? Albumin 11/23/2017 4.5 3.6 - 5.1 grams per deciliter Final ??? Bilirubin, Total 11/23/2017 0.5 0.2 - 1.2 milligrams per deciliter Final ? ? Bilirubin, Direct 11/23/2017 0.1 < OR = 0.2 milligrams per deciliter Final ??? BILIRUBIN, INDIRECT 11/23/2017 0.4 0.2 - 1.2 MG/DL (CALC) Final ??? Globulin, Total 11/23/2017 2.9 1.9 - 3.7 G/DL (CALC) Final ??? ALT 11/23/2017 29 9 - 46 units per liter Final ??? Alkaline Phosphatase 11/23/2017 62 40 - 115 units per liter Final ??? AST 11/23/2017 21 10 - 40 units per liter Final ??? MCH 11/23/2017 31.5 27.0 - 33.0 pg Final ??? ABSOLUTE MONOCYTE 11/23/2017 416 200 - 950 cells/uL Final ??? ABSOLUTE EOSINOPHIL 11/23/2017 77 15 - 500 cells/uL Final ??? ABSOLUTE BASOPHIL 11/23/2017 58 0 - 200 cells/uL Final ??? ABSOLUTE NEUTROPHIL 11/23/2017 3277 1500 - 7800 cells/uL Final ??? ABSOLUTE LYMPHOCYTE 11/23/2017 2573 850 - 3900 cells/uL Final ??? Hemoglobin 11/23/2017 14.4 13.2 - 17.1 grams per deciliter Final ??? MCHC 11/23/2017 34.0 32.0 - 36.0 grams per deciliter Final ??? White blood cell count 11/23/2017 6.4 3.8 - 10.8 Thousand/uL Final ??? PLATELET COUNT 11/23/2017 244 140 - 400 Thousand/uL Final ??? MCV 11/23/2017 92.8 80.0 - 100.0 fL Final ??? MPV 11/23/2017 10.6 7.5 - 12.5 fL Final ??? RED BLOOD CELL COUNT 11/23/2017 4.57 4.20 - 5.80 Million/uL Final ??? HEMATOCRIT 11/23/2017 42.4 38.5 - 50.0 % Final ??? Eosinophils 11/23/2017 1.2 % Final ??? Basophil 11/23/2017 0.9 % Final ??? Neutrophils 11/23/2017 51.2 % Final ??? Lymphocyte 11/23/2017 40.2 % Final ??? Monocyte 11/23/2017 6.5 % Final ??? RDW 11/23/2017 12.1 11.0 - 15.0 % Final Assessment/Plan: Crohn's disease of both small and large intestine (CMS/HCC) Planning for surgery to address stricture and [...] recurrence History of high risk medication treatment Continue routine laboratory monitoring Up to date with vaccinations. Pneumovax booster due 05/2022 Following with bone health for low bone mass Osteoporosis We will reprint his labs from Dr. Mckeon. He can get the Vitamin D today and excelsior picker the container for the 24hr urine. He should generate the sample in the 24hrs before he submits it to the lab so there is minimal bacterial interference Follow up: We would like him to follow up with Dr. Quevedo about 1-2 months after surgery. The patient was given ample opportunity to ask any questions and their questions were answered. documented in this encounter Miscellaneous Notes * Assessment & Plan Note - Veronica Morse NP - 12/07/2017 10:48 AM CDTAssociated Problem(s): Osteoporosis We will reprint his labs from Dr. Mckeon. He can get the Vitamin D today and excelsior picker the container for the 24hr urine. He should generate the sample in the 24hrs before he submits it to the lab so there is minimal bacterial interference * Assessment & Plan Note - Veronica Morse NP - 12/06/2017 9:25 AM CDTAssociated Problem(s): History of high risk medication treatment Continue routine laboratory monitoring Up to date with vaccinations. Pneumovax booster due 05/2022 Following with bone health for low bone mass * Assessment & Plan Note - Veronica Morse NP - 12/06/2017 9:10 AM CDTAssociated Problem(s): Crohn's disease of both small and large intestine (HCC) Planning for surgery to address stricture and fistula with Dr. Portillo in December. Try to procedure at the end of his Humira interval. He can also hold his Humira for 1 week after the procedure for wound healing. He should not need to hold the methotrexate Continue current meds. Will need repeat colonoscopy 3-6 months after surgery to assess for disease recurrence documented in this encounter Plan of Treatment Not on file documented as of this encounter Visit Diagnoses Diagnosis Crohn's disease of both small and large intestine without complication (CMS/HCC) (HCC)- Primary History of high risk medication treatment documented in this encounter Care Teams Rental Sales Associate Relationship Specialty Start Date End Date Trenton Bess MD PCP - General 04/30/17 07/24/18 documented as of this encounter
--- OUTSIDE RECORDS SUMMARY | 2024-07-09 05:28 | XMS_ITS | Encounter Summary ---
Author Organization [facility] Address [address] [place] [address] Phone Care Team Providers Care Slide Forming Machine Operator Name Role Phone Trenton Bess MD Primary Care Provider [phone] Encounter Details Date Type Department Care Team (Late st Contact Info) Description 12/21/2017 Orders Only [facility] Surgery [address] [facility] 8th Floor [address] [place] [phone] Antonio Portillo MD [address] [facility] [phone] [address] [place] [address] Social History Tobacco Use Types Packs/Day Years Used Date Smoking Tobacco: Former Smokeless Tobacco: Never Alcohol Use Standard Drinks/Week Comments No 0 (1 standard drink = 0.6 oz pur e alcohol) Sex and Gender Information Value Date Recorded Sex Assigned at Not on file 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 6 tablet 12/21/2017 11/27/201 8 documented in this encounter Plan of Treatment Not on file documented as of this encounter Visit Diagnoses Not on filedocumented in this encounter Care Teams Slide Forming Machine Operator Relationship Specialty Start Date End Date Trenton Bess MD PCP - General 04/30/17 07/24/18 documented as of this encounter
--- OUTSIDE RECORDS SUMMARY | 2024-07-09 05:28 | XMS_ITS | Encounter Summary ---
Author Organization [facility] Address [address] [place] [address] Care Team Providers Care Loom Fixer Helper Name Role Phone Trenton Bess MD Primary Care Provider [phone] Encounter Details Date Type Department Care Team (Late st Contact Info) Description 05/17/2017 9:29 AM STAFF SCIENTIST - 05/17/2017 11:59 PM STAFF SCIENTIST Hospital Encounter [facility]IM [phone] Eliana Quevedo MD [address] [facility] [address] [place] [address] Discharge Disposition: Discharge to home or self care Social History Tobacco Use Types Packs/Day Years Used Date Smoking Tobacco: Former Sex and Gender Information Value Date Recorded Sex Assigned at Not on file Legal Sex Male 11:11 PM STAFF SCIENTIST Gender Identity Not on file Sexual Orientation Not on file documented as of this encounter Medications at Time of Discharge adalimumab (HUMIRA PEN) 40 mg/0.8 mL pen injector kit HUMIRA 40MG/0.8ML KIT. INJECT 40MG PEN SQ every 7 days1 KIT=2 BOXES/PENS( labs due again in 08/2017) 02/08/2017 8 adalimumab (HUMIRA PEN) 40 mg/0.8 mL [...] (600 mg of elemental calcium) tablet every 12 hours. PT STATES ONCE DAILY 01/25/2017 8 ERGOCALCIFEROL, VITAMIN D2, ORAL 1000 mg daily 02/06/201701/15 8 folic acid (FOLVITE) 1 mg tablet every morning. 01/25/2017 8 methotrexate 2.5 mg tablet TAKE 10 TABLETS WEEKLY.(all at once on the same day)- safety labs due every 3 months, DUe 08/201701/25/2017 8 methotrexate 2.5 mg tablet TAKE 10 TABLETS WEEKLY.(all at once on the same day)- safety labs due every 3 months, DUE 10/201701/25/2017 8 documented as of this encounter Discharge Disposition Disposition Code Departure Means Destination Discharge to home or self care documented in this encounter Plan of Treatment Not on file documented as of this encounter Procedures Procedure Name Priority Date/Time Associated Diagnosis Comments ADALIMUMAB QUANTITATIVE WITH REFLEX TO ANTIBODY, SERUM Routine Gen Lab 05/17/2017 9:43 AM STAFF SCIENTIST DISCHARGE LABORATORY CUMULATIVE REPORT 05/17/2017 12:00 AM STAFF SCIENTIST documented in this encounter Results * ADALIMUMAB QUANTITATIVE WITH REFLEX TO ANTIBODY, SERUM (05/17/2017 9:43 AM STAFF SCIENTIST) ADALX Quant 21.9 mcg/mL [facility] Comment: For clinical assessment of response to therapy, adalimumab should be measured at trough. When adalimumab trough concentrations are greater than 5.0 mcg/mL, clinically relevant [id number] are unlikely and reflex testing will not be performed. REFERENCE VALUE Limit of Quantitation = 0.8 mcg/mL ADDITIONAL INFORMATION This test was developed and its performance characteristics determined by [facility] in a manner consistent with CLIA requirements. This test has not been cleared or approved by the U.S. Food and Drug Administration. Test Performed by: [facility] - [address] [address] Blood specimen (specimen) 05/17/2017 9:43 AM STAFF SCIENTIST 05/17/2017 10:55 AM STAFF SCIENTIST Eliana Quevedo MD LAB BLOOD ORDERABLE S Final Result [facility] Department [place] [address] * DISCHARGE LABORATORY CUMULATIVE REPORT (05/17/2017 12:00 AM STAFF SCIENTIST) Narrative 05/17/2017 12:00 AM STAFF SCIENTIST Ordered by an unspecified provider. Historical Provider LAB BLOOD ORDERABLES Melinda l Result documented in this encounter Visit Diagnoses Not on filedocumented in this encounter Care Teams Loom Fixer Helper Relationship Specialty Start Date End Date Trenton Bess MD PCP - General 04/30/17 07/24/18 documented as of this encounter
--- OUTSIDE RECORDS SUMMARY | 2024-07-09 05:28 | XMS_ITS | Encounter Summary ---
Author Organization [facility] Healthcare Address [address] [place] [address] Care Team Providers Care Die Reamer Name Role Phone Jovany Bess MD Primary Care Provider [phone] Encounter Details Date Type Department Care Team (Late st Contact Info) Description 06/08/2017 12:52 PM INSPECTOR PRECISION ASSEMBLY - 06/08/2017 11:59 PM INSPECTOR PRECISION ASSEMBLY Hospital Encounter [facility] OP INTERIM [phone] Yobany Gaming MD [address] [facility] [address] [place] [address] Discharge Disposition: Discharge to home or self care Social History Tobacco Use Types Packs/Day Years Used Date Smoking Tobacco: Former Sex and Gender Information Value Date Recorded Sex Assigned at Not on file Legal Sex Male 11:11 PM INSPECTOR PRECISION ASSEMBLY Gender Identity Not on file Sexual Orientation [...] Name Priority Date/Time Associated Diagnosis Comments MRI ABDOMEN W WO CONTRAST Routine 06/08/2017 9:11 PM INSPECTOR PRECISION ASSEMBLY POCT CREATININE FOR CONTRAST EVALUATION Routine Gen Lab 06/08/2017 1:36 PM INSPECTOR PRECISION ASSEMBLY documented in this encounter Results * MRI Abdomen W WO Contrast (06/08/2017 9:11 PM INSPECTOR PRECISION ASSEMBLY) Anatomical Region Laterality Modality Body N/A Magnetic Resonan ce 06/08/2017 9:11 PM INSPECTOR PRECISION ASSEMBLY Narrative 06/08/2017 9:39 PM INSPECTOR PRECISION ASSEMBLY SOFÍA SANCHEZ M.D. JOVANY PELLETIER M.D. FINAL REPORT The radiology attending physician has personally reviewed this study, and has reviewed and/or edited this written report and agrees with it. ACC# ??Date Time ??Exam [id number] Jun 08, 2017 15:11:00 [id number] MRI Abdomen wwo contrast EXAMINATION: ??MAGNETIC RESONANCE IMAGING OF THE ABDOMEN WITH AND WITHOUT CONTRAST HISTORY: 26-year-old man with Crohn disease and ileosigmoid fistula. Evaluate for active inflammation. TECHNIQUE: Magnetic resonance imaging of the abdomen was performed prior to and following the uneventful administration of intravenous Gadolinium contrast. Oral Volumen and 1 mg of intravenous glucagon was administered prior to the examination. Protocol: MR Enterography Creatinine: 0.8 mg/dL Estimated GFR: Greater than 60 ml/min/1.73 meters squared Contrast: Dotarem 14 mL COMPARISON: No prior magnetic resonance imaging is available for comparison. FINDINGS: Bowel: There is bowel wall thickening with mild narrowing involving the terminal ileum spanning 8 cm proximal from the ileocecal valve. There is tethering of the distal ileum cephalad to the sigmoid colon representing a fistula seen on series 5 image 15. ??The terminal ileum also demonstrates diffusion restriction and early arterial enhancement. There is no proximal small bowel dilatation. ??No abscess or fluid collection. Liver: Normal Bile ducts: Normal Focal lesions: None Vasculature: Patent hepatic and portal veins. Gallbladder: Normal Pancreas: Normal Spleen: Normal Adrenals: Normal Kidneys: Normal Bladder: Normal Other Findings: There is a moderate hiatal hernia. ??No abscess or fluid collection. ??No suspicious enhancing osseous lesion. IMPRESSION: ??1. ??Active inflammation of the terminal ileum with a fistula to the sigmoid colon. Electronically signed by: Sofía Sanchez M.D. Requested By: Yobany Gaming ??Mickey ? Dictated By: ?? JOVANY PELLETIER M.D. ??on Jun ??2016 ??3:34P This document has been electronically signed by: SOFÍA SANCHEZ M.D. on Jun ??2016 ??3:37P [id number] SANCHEZ M.D. JOVANY PELLETIER M.D. FINAL REPORT The radiology attending physician has personally reviewed this study, and has reviewed and/or edited this written report and agrees with it. Attending: ??MEKHI, ??YOBANY Requesting: ??Mekhi, ??Yobany Requesting Fax: ?? Attending Fax: ?? Attending ID: ??[id number] Requesting ID: ??[id number] Report To 1 ID: ??[id number] ? Report To 1 Name: ??, ?? Report To 1 FAX: ?? NextGen Order #: ?? Procedure Note Miscellaneous, Not In File - 06/08/2017 SOFÍA SANCHEZ M.D. JOVANY PELLETIER M.D. FINAL REPORT The radiology attending physician has personally reviewed this study, and has reviewed and/or edited this written report and agrees with it. ACC# Date Time Exam [id number] Jun 08, 2017 15:11:00 [id number] MRI Abdomen wwo contrast EXAMINATION: MAGNETIC RESONANCE IMAGING OF THE ABDOMEN WITH AND WITHOUT CONTRAST HISTORY: 26-year-old man with Crohn disease and ileosigmoid fistula. Evaluate for active inflammation. TECHNIQUE: Magnetic resonance imaging of the abdomen was performed prior to and following the uneventful administration of intravenous Gadolinium contrast. Oral Volumen and 1 mg of intravenous glucagon was administered prior to the examination. Protocol: MR Enterography Creatinine: 0.8 mg/dL Estimated GFR: Greater than 60 ml/min/1.73 meters squared Contrast: Dotarem 14 mL COMPARISON: No prior magnetic resonance imaging is available for comparison. FINDINGS: Bowel: There is bowel wall thickening with mild narrowing involving the terminal ileum spanning 8 cm proximal from the ileocecal valve. There is tethering of the distal ileum cephalad to the sigmoid colon representing a fistula seen on series 5 image 15. The terminal ileum also demonstrates diffusion restriction and early arterial enhancement. There is no proximal small bowel dilatation. No abscess or fluid collection. Liver: Normal Bile ducts: Normal Focal lesions: None Vasculature: Patent hepatic and portal veins. Gallbladder: Normal Pancreas: Normal Spleen: Normal Adrenals: Normal Kidneys: Normal Bladder: Normal Other Findings: There is a moderate hiatal hernia. No abscess or fluid collection. No suspicious enhancing osseous lesion. IMPRESSION: 1. Active inflammation of the terminal ileum with a fistula to the sigmoid colon. Electronically signed by: Sofía Sanchez M.D. Requested By: Yobany Gaming M.D. Dictated By: JOVANY PELLETIER M.D. on Jun 08 2017 3:34P This document has been electronically signed by: SOFÍA SANCHEZ M.D. on Jun 08 2017 3:37P [id number] RK SANCHEZ M.D. JOVANY PELLETIER M.D. FINAL REPORT The radiology attending physician has personally reviewed this study, and has reviewed and/or edited this written report and agrees with it. Attending: YOBANY GAMING Requesting: Yobany Gaming Requesting Fax: Attending Fax: Attending ID: [id number] Requesting ID: [id number] Report To 1 ID: [id number] Report To 1 Name: , Report To 1 FAX: NextGen Order #: Yobany Gaming MD IMG MRI PROCEDURES Final Result * POCT creatinine (06/08/2017 1:36 PM INSPECTOR PRECISION ASSEMBLY) Creatinine POC 0.8 0.7 - 1.3 mg/dL [facility] Blood specimen (specimen) 06/08/2017 1:36 PM INSPECTOR PRECISION ASSEMBLY 06/08/2017 1:36 PM INSPECTOR PRECISION ASSEMBLY Narrative [facility] - 06/08/2017 1:45 PM INSPECTOR PRECISION ASSEMBLY Yobany Gaming MD POINT OF CARE TEST ORDERABLES Final Result [facility] [place] [address] documented in this encounter Visit Diagnoses Not on filedocumented in this encounter Care Teams Die Reamer Relationship Specialty Start Date End Date Jovany Bess MD PCP - General 04/30/17 07/24/18 documented as of this encounter
--- OUTSIDE RECORDS SUMMARY | 2024-07-09 05:28 | XMS_ITS | Encounter Summary ---
Author Organization [facility] Healthcare Address [address] [place] [address] Care Team Providers Care Weed Science Research Technician Name Role Phone Trenton Bess MD Primary Care Provider [phone] Encounter Details Date Type Department Care Team (Late st Contact Info) Description 01/25/2017 10:06 AM CDT - 01/25/2017 11:59 PM T Hospital Encounter [facility] OP INTERIM [phone] Eliana Quevedo MD [address] [facility] [address] [place] [address] Discharge Disposition: Discharge to home or self care Social History Tobacco Use Types Packs/Day Years Used Date Smoking Tobacco: Never Assessed Sex and Gender Information Value Date Recorded Sex Assigned at Not on file 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 02/09/2014 07/30/2018 calcium carbonate (OS-ANA) 1,500 mg (600 mg of elemental calcium) tablet every 12 hours. PT STATES ONCE DAILY 01/25/2017 11/30/2017 folic acid (FOLVITE) 1 mg tablet every morning. 01/25/2017 04/16/2018 methotrexate 2.5 mg tablet TAKE 10 TABLETS WEEKLY.(all at once on the same day)- safety labs due every 3 months, DUe 08/201701/25/2017 11/30/2017 methotrexate 2.5 mg tablet TAKE 10 TABLETS WEEKLY.(all at once on the same day)- safety labs due every 3 months, DUE 10/201701/25/2017 02/19/2018 documented as of this encounter Discharge Disposition Disposition Code Departure Means Destination Discharge to home or self care documented in this encounter Plan of Treatment Not on file documented as of this encounter Procedures Procedure Name Priority Date/Time Associated Diagnosis Comments DIFFERENTIAL AUTO Routine Gen Lab 01/25/2017 10: 30 AM CDT INTERFERON GAMMA RELEASE ASSAY TB Routine Gen Lab 01/25/2017 10:30 AM CDT TPMT ACTIVITY Routine Gen Lab 01/25/2017 10:30 AM CDT IRON PROFILE W/ IBC Routine Gen Lab 01/25/2017 1 0:30 AM CDT CBC WITH AUTO DIFFERENTIAL Routine Gen Lab 01/25/2017 10:30 AM CDT VITAMIN D 25 HYDROXY Routine Gen Lab 01/25/2017 10:30 AM CDT HEPATITIS B SURFACE ANTIBODY (IMMUNE STATUS) Routine Gen Lab 01/25/2017 10:30 AM CDT HEPATITIS B SURFACE ANTIGEN Routine Gen Lab 01/25/2017 10:30 AM CDT ERYTHROCYTE SEDIMENTATION RATE Routine Gen Lab 01/25/2017 10:30 AM CDT CRP, HIGH SENSITIVITY Routine Gen Lab 01/25/2017 10:30 AM CDT FERRITIN Routine Gen Lab 01/25/2017 10:30 AM CDT VITAMIN B12 Routine Gen Lab 01/25/2017 10:30 AM CDT HEPATIC FUNCTION PANEL Routine Gen Lab 01/25/2017 10:30 AM CDT MISCELLANEOUS TEST SENDOUT CHEMISTRY Routine Gen Lab 01/25/2017 10:21 AM CDT REFERENCE LABORATORY MISCELLANEOUS TESTING 01/25/2017 12:00 AM CDT REFERENCE LABORATORY MISCELLANEOUS TESTING 01/25/2017 12:00 AM CDT DISCHARGE LABORATORY CUMULATIVE REPORT 01/25/2017 12:00 AM CDT documented in this encounter Results * TPMT activity (01/25/2017 10:30 AM CDT) Pathologist [facility] 6-MMP, bld 4.62 3.00 - 6.66 [facility] GENERAL GUIDANCE 8.45 5.04 - 9.57 [facility] Gene name #7 4.46 2.70 - 5.84 [facility] Interpretation,Comp See Footnote [facility] Comment: *Normal* In this whole blood sample, the profile of activity of thiopurine methyltransferase using three different substrates was normal or essentially normal. ADDITIONAL INFORMATION Liquid Chromatography-Tandem Mass Spectrometry (LC-MS/MS) This test was developed and its performance characteristics determined by [facility] in a manner consistent with CLIA requirements. This test has not been cleared or approved by the U.S. Food and Drug Administration. Blood specimen (specimen) 01/25/2017 10:30 AM CDT 01/25/2017 4:41 PM CDT us Eliana Quevedo MD LAB BLOOD ORDERABLE S Final Result [facility] Department of Laboratories [place], [place] [id number] * Interferon Gamma Release Assay TB (01/25/2017 10:30 AM CDT) [facility] IFN-Gamma Release Assay TB Negative [facility] Comment: Interpretive Data Testing performed by [employer], [address] [place], [place] [address] Current Interpretive Data was last revised 2014 Blood specimen (specimen) 01/25/2017 10:30 AM CDT 01/25/2017 10:41 AM CDT us Eliana Quevedo MD LAB BLOOD ORDERABLE S Final Result Performing Organization Address [facility] Co de Phone Number [facility] [place] [address] * Hepatitis B surface antibody (01/25/2017 10:30 AM CDT) Pathologist [facility] HBsAb (immune status) Reactive [facility] Comment: Interpretive Data A Negative Result indicates HBsAb of less than 10mIU/mL; a Positive Result indicates HBsAb of greater than or equal to 10mIU/mL. If qualitative result is Positive, HBsAb Quantitation will be reported. Assay performance characteristics have not been established as an aid in determining susceptibility to HBV infection prior to or following vaccination in infants, or children. For monitoring serum HBsAb levels during hepatitis B immunoglobulin (HBIG) therapy in transplant recipients, please refer to institutional HBIG protocol for desirable HBsAb levels. Current interpretive data was last revised on 2016. HBsAb (immune status) index 63.9 mIUnits/m L [facility] Blood specimen (specimen) 01/25/2017 10:30 AM CDT 01/25/2017 10:41 AM CDT us Eliana Quevedo MD LAB MICROBIOLOGY - GENERAL ORDERABLES Final Result Performing Organization Address [facility] Co de Phone Number [facility] Department [place] [address] * Hepatitis B surface antigen (01/25/2017 10:30 AM CDT) Pathologist [facility] HepBsAg Nonreactive Nonreactive [facility] Blood specimen (specimen) 01/25/2017 10:30 AM CDT 01/25/2017 10:41 AM CDT us Eliana Quevedo MD LAB MICROBI OLOGY - GENERAL ORDERABLES Edited Result - Final Performing Organization Address [facility]/ZIP Co de Phone Number [facility] [place] [address] * Erythrocyte sedimentation rate (01/25/2017 10:30 AM CDT) Erythrocyte sedimentation rate 8 0 - 12 mm/H [facility] Blood specimen (specimen) 01/25/2017 10:30 AM CDT 01/25/2017 10:41 AM CDT Eliana Quevedo MD LAB BLOOD ORDERABLE S Final Result Performing Organization Address [facility] de Phone Number [facility] [place] [address] * (ABNORMAL) Vitamin D 25 hydroxy (01/25/2017 10:30 AM CDT) Vitamin D 25-OH 28.3(L) 30.0 - 100.0 ng/mL [facility] Blood specimen (specimen) 01/25/2017 10:30 AM CDT 01/25/2017 10:41 AM CDT us Eliana Quevedo MD LAB BLOOD ORDERABLE S Edited Result - Final Performing Organization Address [facility] Co de Phone Number [facility] [place] [address] * Vitamin B12 (01/25/2017 10:30 AM CDT) Vitamin B12 603 210 - 900 pg/mL [facility] Blood specimen (specimen) 01/25/2017 10:30 AM CDT 01/25/2017 10:41 AM CDT us Eliana Quevedo MD LAB BLOOD ORDERABLE S Final Result Performing Organization Address City/[facility]/ZIP Co de Phone Number [facility] [place] [address] * Hepatic function panel (01/25/2017 10:30 AM CDT) [facility] AST 17 10 - 50 Units/L [facility] ALT 23 7 - 55 Units/L [facility] Alk phos 78 40 - 130 Units/L [facility] Bilirubin, total 0.3 0.1 - 1.2 mg/dL [facility] Bilirubin, direct <0.2 0.1 - 0.3 mg/dL [facility] Protein, pl 8.1 6.5 - 8.5 g/dL [facility] Albumin 4.6 3.5 - 5.0 g/dL [facility] Blood specimen (specimen) 01/25/2017 10:30 AM CDT 01/25/2017 10:41 AM CDT Eliana Quevedo MD LAB BLOOD ORDERABLE S Edited Result - Final Performing Organization Address City/[facility]/ZIP Co de Phone Number [facility] [place] [address] * Ferritin (01/25/2017 10:30 AM CDT) [facility] Ferritin 204 30 - 400 ng/mL [facility] Blood specimen (specimen) 01/25/2017 10:30 AM CDT 01/25/2017 10:41 AM CDT Eliana Quevedo MD LAB BLOOD ORDERABLE S Edited [place] [address] * (ABNORMAL) Iron profile (01/25/2017 10:30 AM CDT) [facility] Iron 56 50 - 150 mcg/dL [facility] UIBC 260 112 - 347 mcg/dL [facility] TIBC 316 250 - 400 mcg/dL [facility] Transferrin saturation 18(L) 20 - 50 % [facility] Blood specimen (specimen) 01/25/2017 10:30 AM CDT 01/25/2017 10:41 AM CDT Eliana Quevedo MD LAB BLOOD ORDERABLE S Final Result Performing Organization Address [facility] de Phone Number [facility] Department [place] [address] * CRP, high sensitivity (01/25/2017 10:30 AM CDT) [facility] hsCRP 2.0 0.1 - 3.0 mg/L [facility] Comment: Interpretive Data Values greater than or equal to 10 mg/L are consistent with infection or inflammation. ??When using hs-CRP to assess cardiovascular risk, two measurements should be taken, two weeks apart (averaging results). The tertile system of relative risk is recommended (Circulation 2003; 107: 499-511). The high-risk tertile has an approximate 2-fold increase in relative risk compared with the low risk tertile. If hs-CRP is being used to assess cardiac risk and hs-CRP is greater than or equal to 10 mg/L, patient should be examined for sources of infection; test should be repeated after infection has resolved. Low Risk ? <1.0 mg/L Average Risk ??1.0 - 3.0 mg/L High Risk ?>3.0 mg/L Current interpretive data was last revised on 2012. Blood specimen (specimen) 01/25/2017 10:30 AM CDT 01/25/2017 10:41 AM CDT Eliana Quevedo MD LAB BLOOD ORDERABLE S Final Result Performing Organization Address [facility] Co de Phone Number [facility] Department [place] [address] * Differential, auto (01/25/2017 10:30 AM CDT) Pathologist [facility] Neutrophil pct 59.2 % [facility] Imm gran pct 0.1 % [facility] Lymphocyte pct 32.6 % [facility] Monocyte pct 6.9 % [facility] Eosinophil pct 0.7 % [facility] Basophil pct 0.5 % [facility] Neutrophil abs 4.38 1.70 - 6.50 K/cumm [facility] Imm gran abs 0.01 0.00 - 0.10 K/cumm [facility] Lymphocyte abs 2.41 0.80 - 3.30 K/cumm [facility] Monocyte abs 0.51 0.20 - 0.80 K/cumm [facility] Eosinophil abs 0.05 0.00 - 0.50 K/cumm [facility] Basophil abs 0.04 0.00 - 0.10 K/cumm [facility] Blood specimen (specimen) 01/25/2017 10:30 AM CDT 01/25/2017 10:41 AM CDT us Eliana Quevedo MD LAB BLOOD ORDERABLE S Final Result [facility] Department [place] [address] * CBC with auto differential (01/25/2017 10:30 AM CDT) Pathologist [facility] WBC 7.40 3.80 - 9.90 K/cumm [facility] RBC 4.84 4.30 - 5.80 M/cumm [facility] Hgb 14.4 13.0 - 17.5 g/dL [facility] Hct 43.5 38.9 - 50.3 % [facility] MCV 89.9 81.3 - 96.4 fL [facility] MCH 29.8 27.1 - 33.3 pg [facility] MCHC 33.1 32.3 - 35.7 g/dL [facility] RDW CV 12.2 11.1 - 14.9 % [facility] RDW SD 40.2 35.7 - 48.1 fL [facility] Plt 208 150 - 400 K/cumm [facility] MPV 11.2 9.1 - 12.3 fL [facility] NRBC 0.0 0.0 - 0.2 % [facility] NRBC abs 0.00 0.00 - 0.01 K/cumm [facility] Blood specimen (specimen) 01/25/2017 10:30 AM CDT 01/25/2017 10:41 AM CDT Eliana Quevedo MD LAB BLOOD ORDERABLE S Final Result Performing Organization Address [facility] [place] [address] * Miscellaneous Test Sendout Chemistry (01/25/2017 10:21 AM CDT) Test name Adalimumab Concentration and Anti-Adalimumab Antibody [facility] Result 1 Test Name: Adalimumab Concentration and Anti-Adalimumab Antibody Specimen Type: Serum Result: See separate report scanned into the Clinical Desktop Scanned Laboratory Reports Tab. [facility] Sendout reference lab Testing performed by: [facility], [place] [address]. [facility] Blood specimen (specimen) 01/25/2017 10:21 AM CDT 01/25/2017 11:21 AM CDT Eliana Quevedo MD LAB BLOOD ORDERABLE S Edited Result - Final Performing Organization Address City/[facility] Co de Phone Number [facility] [place] [address] * DISCHARGE LABORATORY CUMULATIVE REPORT (01/25/2017 12:00 AM CDT) Narrative 01/25/2017 12:00 AM CDT Ordered by an unspecified provider. Ryan Shook MD LAB BLOOD ORDERABLES Melinda l Result * REFERENCE LABORATORY MISCELLANEOUS TESTING (01/25/2017 12:00 AM CDT) Narrative 01/25/2017 12:00 AM CDT Ordered by an unspecified provider. us Historical Provider LAB BLOOD ORDERABLES Melinda l Result * REFERENCE LABORATORY MISCELLANEOUS TESTING (01/25/2017 12:00 AM CDT) Narrative 01/25/2017 12:00 AM CDT Ordered by an unspecified provider. Historical Provider LAB BLOOD ORDERABLES Melinda l Result documented in this encounter Visit Diagnoses Not on filedocumented in this encounter Care Teams Weed Science Research Technician Relationship Specialty Start Date End Date Trenton Bess MD PCP - General 01/25/17 01/31/17 documented as of this encounter
--- OUTSIDE RECORDS SUMMARY | 2024-07-09 05:28 | XMS_ITS | Encounter Summary ---
Author Organization [facility] Address [address] [place] [address] Phone Care Team Providers Care Bench Lay Out Technician Name Role Phone Trenton Bess MD Primary Care Provider [phone] Encounter Details Date Type Department Care Team (Late st Contact Info) Description 11/30/2017 Orders Only [facility] [address] [facility] 8[address] [place] [address] [place] [phone] Margie Linda RMA Social History Tobacco Use Types Packs/Day Years Used Date Smoking Tobacco: Former Sex and Gender Information Value Date Recorded Sex Assigned at Not on file 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 PT STATES ONCE DAILY Duplicate order 01/25/2017 11/30/2017 methotrexate 2.5 mg tablet TAKE 10 TABLETS WEEKLY.(all at once on the same day)- safety labs due every 3 months, DUe 08/2017 Duplicate order 01/25/2017 11/30/2017 documented as of this encounter Historical Medications * This list may reflect changes made after this encounter. methotrexate 2.5 mg tablet TAKE 10 TABLETS WEEKLY.(all at once on the same day)- safety labs due every 3 months, DUE 10/201701/25/2017 02/19/2018 adalimumab (HUMIRA PEN) 40 mg/0.8 mL pen injector kit HUMIRA 40MG/0.8ML KIT. INJECT 40MG PEN SQ every 14 days1 KIT=2 BOXES/PENS( labs due again in 10/2017) 02/08/2017 03/25/2018 ERGOCALCIFEROL, VITAMIN D2, ORAL 1000 mg daily 02/06/201701/15 omega 8-tzw-jau-fish oil 300-1,000 mg capsule 1 capsule every morning. 11/16/2017 04/03/2019 calcium carbonate (OS-ANA) 1,500 mg (600 mg of elemental calcium) tablet every morning. 11/16/2017 05/12/2019 added in this encounter Care Teams Bench Lay Out Technician Relationship Specialty Start Date End Date Trenton Bess MD PCP - General 04/30/17 07/24/18 documented as of this encounter
--- OUTSIDE RECORDS SUMMARY | 2024-07-09 05:28 | XMS_ITS | Encounter Summary ---
Author Organization [facility] Address [address] [place] [address] Phone Care Team Providers Care Marine Engineer Cpvec Name Role Phone Trenton Bess MD Primary Care Provider [phone] Encounter Details Date Type Department Care Team (Late st Contact Info) Description 12/24/2017 Orders Only [facility] [address] [facility] 5th [place] [address] [place] [address] Fernando Mckeon MD [address] [facility] [address] [place] [id number] Social History Tobacco Use Types Packs/Day Years Used Date Smoking Tobacco: Former Smokeless Tobacco: Never Alcohol Use Standard Drinks/Week Comments No 0 (1 standard drink = 0.6 oz pur e alcohol) Sex and Gender Information Value Date Recorded Sex Assigned at Not on file 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 Wouldcontinue (please write script 50 K Ergocalciferol monthly ) and 2000 IUs daily of vitamin D till his follow up. He will need to ensure he is not exceeding 1000mg of calcium supplements daily given his high 24hr urine calcium measurements. We will see him in follow up in 05/2018 for a rpt bone density. documented in this encounter Plan of Treatment Not on file documented as of this encounter Procedures Procedure Name Priority Date/Time Associated Diagnosis Comments CALCIUM, URINE, 24 HOUR Routine 12/24/2017 4:09 PM CDT CREATININE, URINE, 24 HOUR Routine 12/24/2017 4:09 PM CDT documented in this encounter Results * Calcium, urine, 24 hour (12/24/2017 4:09 PM CDT) Calcium, 24 hour ur 242 mg/24 h [facility] Comment: ?Reference Range ??55-300 ?Low calcium diet 55-200 URINE VOLUME: 1600/24 12/24/2017 4:09 PM CDT 12/24/2017 4:10 PM CDT Narrative [facility] - 12/25/2017 5:32 PM CDT SPLIT 12/21/2017 FROM [id number] Resulting Agency Comment Performing Organization Information: ?Site ID: [place] ?Name: [facility] ?Address: [address] [place] [address] [place] [id number] ?Director: Christopher Salas D.O., MPH us Fernando Mckeon MD LAB URINE ORDERABLES Final Resu lt [email or web address] [place] * Creatinine, urine, 24 hour (12/24/2017 4:09 PM CDT) Creatinine, 24 hour ur 1.89 0.63 - 2.50 g/24 h [facility] Comment:URINE VOLUME: 1600/2 4 12/24/2017 4:09 PM CDT 12/24/2017 4:10 PM CDT Narrative [facility] - 12/25/2017 5:32 PM CDT SPLIT 12/21/2017 FROM [id number] Resulting Agency Comment Performing Organization Information: ?Site ID: [id number] ?Name: [facility] ?Address: [address] [place], [place] [address] [id number] ?Director: Christopher Salas D.O., MPH us Fernando Mckeon MD LAB URINE ORDERABLES Final Resu lt [facility] [place] documented in this encounter Visit Diagnoses Not on filedocumented in this encounter Care Teams Marine Engineer Cpvec Relationship Specialty Start Date End Date Trenton eBss MD PCP - General 04/30/17 07/24/18 documented as of this encounter
--- OUTSIDE RECORDS SUMMARY | 2024-07-09 05:28 | XMS_ITS | Encounter Summary ---
Author Organization [facility] Healthcare Address [address] [place] [address] Care Team Providers Care Head Sampler Name Role Phone Trenton Bess MD Primary Care Provider [phone] Encounter Details Date Type Department Care Team (Latest Contact Info) Description 04/30/2017 2:25 PM CDT - 04/30/2017 11:59 PM CDT Hospital Encounter 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 Gender Identity Not on file Sexual Orientation [...] Procedure Name Priority Date/Time Associated Diagnosis Comments TESTOSTERONE, TOTAL AND FREE, SERUM Routine Gen Lab 04/30/2017 2:25 PM CDT PROTEIN ELECTROPHORESIS, WITH REFLEX, SERUM Routine Gen Lab 04/30/2017 2:25 PM CDT PROTEIN ELECTROPHORESIS, SERUM 04/30/2017 12:00 AM CDT DISCHARGE LABORATORY CUMULATIVE REPORT 04/30/2017 12:00 AM CDT documented in this encounter Results * Testosterone, free, total (04/30/2017 2:25 PM CDT) Testosterone 391 240 - 950 ng/dL [facility] Comment: ADDITIONAL INFORMATION Testing performed by Liquid Chromatography-Tandem Mass Spectrometry (LC-MS/MS). This test was developed and its performance characteristics determined by [facility] in a manner consistent with CLIA requirements. This test has not been cleared or approved by the U.S. Food and Drug Administration. Test Performed by: [facility] Laboratories - [facility] [address] [place] [address] Testosterone, free 15.6 5.05 - 19.8 ng/dL [facility] Comment: ADDITIONAL INFORMATION Testing performed by [facility]. This test was developed and its performance characteristics determined by [facility] in a manner consistent with CLIA requirements. This test has not been cleared or approved by the U.S. Food and Drug Administration. Blood specimen (specimen) 04/30/2017 2:25 PM CDT 04/30/2017 7:09 PM CDT us Fernando Mckeon MD LAB BLOOD ORDERABLES Final Resu lt [facility] Department [place] [address] * (ABNORMAL) Protein electrophoresis, serum (04/30/2017 2:25 PM CDT) Pathologist [facility] Albumin 4.3 3.6 - 5.0 g/dL [facility] Comment:The name for this te st component was initially reported incorrectly as HIV-1 RNA. Corrected on 08/28/2017. Alpha-1 globulin 0.5(H) 0.2 - 0.4 g/dL [facility] Alpha-2, sr 0.8 0.4 - 0.9 g/dL [facility] Beta-1 globulin 0.5 0.3 - 0.6 g/dL [facility] Beta-2 globulin 0.5 0.2 - 0.6 g/dL [facility] Gamma globulin 1.3 0.6 - 1.7 g/dL [facility] SPEP interp No Apparent Monoclonal Peak. [facility] Blood specimen (specimen) 04/30/2017 2:25 PM CDT 04/30/2017 6:38 PM CDT us Fernando Mckeon MD LAB BLOOD ORDERABLES Final Resu lt [facility] Department [place] [address] * PROTEIN ELECTROPHORESIS, SERUM (04/30/2017 12:00 AM CDT) Narrative 04/30/2017 12:00 AM CDT Ordered by an unspecified provider. us Historical Provider LAB BLOOD ORDERABLES Melinda l Result * DISCHARGE LABORATORY CUMULATIVE REPORT (04/30/2017 12:00 AM CDT) Narrative 04/30/2017 12:00 AM CDT Ordered by an unspecified provider. Historical Provider LAB BLOOD ORDERABLES Melinda l Result documented in this encounter Visit Diagnoses Not on filedocumented in this encounter Care Teams Head Sampler Relationship Specialty Start Date End Date Trenton Bess MD PCP - General 04/30/17 07/24/18 documented as of this encounter
--- OUTSIDE RECORDS SUMMARY | 2024-07-09 05:28 | XMS_ITS | Encounter Summary ---
Author Organization [facility] Address [address] [place] [address] Phone Care Team Providers Care Cloud Automation Tester Name Role Phone Trenton Bess MD Primary Care Provider Encounter Details Date Type Department Care Team (Late st Contact Info) Description 01/08/2018 Telephone [facility] Surgery [address] [place] [address] Margie Linda RMA Social History Tobacco Use Types Packs/Day Years Used Date Smoking Tobacco: Former Smokeless Tobacco: Never Alcohol Use Standard Drinks/Week Comments No 0 (1 standard drink = 0.6 oz pur e alcohol) Sex and Gender Information Value Date Recorded Sex Assigned at Not on file 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 Teran in regards to his surgery this Sunday with Dr. Portillo. He is to start his prepon , and arrive at 0530 for 729 surgery at [facility]. My direct number was left for any questions. documented in this encounter Plan of Treatment Not on file documented as of this encounter Visit Diagnoses Not on filedocumented in this encounter Care Teams Cloud Automation Tester Relationship Specialty Start Date End Date Trenton Bess MD PCP - General 04/30/17 07/24/18 documented as of this encounter
--- OUTSIDE RECORDS SUMMARY | 2024-07-09 05:28 | XMS_ITS | Encounter Summary ---
Author Organization [facility] Address [address] [place] [address] Phone Care Team Providers Care Communications Department Chairperson Name Role Phone Trenton Bess MD Primary Care Provider [phone] Encounter Details Date Type Department Care Team (Late st Contact Info) Description 11/21/2017 Orders Only [facility] Gastroenterology [address] [facility] 8th [place] [address] [place] [address] Zohra Davila RMA Social History Tobacco Use Types Packs/Day Years Used Date Smoking Tobacco: Former Sex and Gender Information Value Date Recorded Sex Assigned at Not on file 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 ondansetron (ZOFRAN) 8 mg tablet TAKE 1 TABLET 3 TIMES DAILY starting the day before taking the Methotrexate, the day of and the day after and thenonly as needed 09/11/2017 9 methotrexate 2.5 mg tablet TAKE 10 TABLETS WEEKLY.(all at once on the same day)- safety labs due every 3 months, DUe 08/201701/25/2017 8 folic acid (FOLVITE) 1 mg tablet every morning. 01/25/2017 8 calcium carbonate (OS-ANA) 1,500 mg (600 mg of elemental calcium) tablet every 12 hours. PT STATES ONCE DAILY 01/25/2017 8 balsalazide (COLAZAL) 750 mg capsuleIndicatio ns:Ulcerative Colitis TAKE 3 CAPSULES 3 TIMES DAILY.( clarified script) 02/01/2017 9 adalimumab (HUMIRA PEN) 40 mg/0.8 mL pen injector kit HUMIRA 40MG/0.8ML KIT. INJECT 40MG PEN SQ every 7 days1 KIT=2 BOXES/PENS( labs due again in 08/2017) 02/08/2017 8 added in this encounter Care Teams Communications Department Chairperson Relationship Specialty Start Date End Date Trenton Bess MD PCP - General 04/30/17 07/24/18 documented as of this encounter
--- OUTSIDE RECORDS SUMMARY | 2024-07-09 05:28 | XMS_ITS | Encounter Summary ---
Author Organization [facility] Healthcare Address [address] [place] [address] Care Team Providers Care Brake Specialist Name Role Phone Trenton Bess MD Primary Care Provider [phone] Encounter Details Date Type Department Care Team (Late st Contact Info) Description 06/22/2017 6:40 AM ACCOUNT SPECIALIST - 06/22/2017 8:57 AM ACCOUNT SPECIALIST Hospital Encounter [facility] INTERIM [phone] Eliana Quevedo MD [address] [facility] [address] [place] [address] Discharge Disposition: Discharge to home or self care Social History Tobacco Use Types Packs/Day Years Used Date Smoking Tobacco: Former Sex and Gender Information Value Date Recorded Sex Assigned at Not on file Legal Sex Male 11:11 PM ACCOUNT SPECIALIST Gender Identity Not on file [...] Name Priority Date/Time Associated Diagnosis Comments COLONOSCOPY REPORT 06/22/2017 documented in this encounter Results * COLONOSCOPY REPORT (06/22/2017) Anatomical Region Laterality Modality Other Provider Scanning GI PROCEDURE ORDERABLES Final Result documented in this encounter Visit Diagnoses Not on filedocumented in this encounter Care Teams Brake Specialist Relationship Specialty Start Date End Date Trenton Bess MD PCP - General 04/30/17 07/24/18 documented as of this encounter
--- OUTSIDE RECORDS SUMMARY | 2024-07-09 05:28 | XMS_ITS | Encounter Summary ---
Author Organization [facility] Address [address] [place] [address] Phone Care Team Providers Care Heel Varnisher Name Role Phone Trenton Bess MD Primary Care Provider [phone] Encounter Details Date Type Department Care Team (Late st Contact Info) Description 12/21/2017 Orders Only [facility] [address] [facility] 5th [place] [address] [place] [address] Fernando Mckeon MD [address] [facility] [address] [place] [id number] Social History Tobacco Use Types Packs/Day Years Used Date Smoking Tobacco: Former Smokeless Tobacco: Never Alcohol Use Standard Drinks/Week Comments No 0 (1 standard drink = 0.6 oz pur e alcohol) Sex and Gender Information Value Date Recorded Sex Assigned at Not on file 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 25-OH Vitamin D: Deficiency: ?<20 ng/mL Insufficiency: ? 20 - 29 ng/mL Optimal: ? > or = 30 ng/mL For 25-OH Vitamin D testing on patients on D2-supplementation and patients for whom quantitation of D2 and D3 fractions is required, the Quest[facility]ure[facility](TM) 25-OH VIT D, (D2,D3), LC/MS/MS is recommended: order code 82269 (patients >2yrs). For more information on this test, go to: http://education.[employer]/faq/XEH243 (This link is being provided for informational/educational purposes only.) 12/21/2017 1:36 PM CDT 12/21/2017 1:38 PM CDT Narrative [facility] - 12/22/2017 6:07 AM CDT COLLECTION REQUIREMENTS NOT MET. PATIENT ADVISED TO RETURN. Resulting Agency Comment Performing Organization Information: ?Site ID: [place] ?Name: [facility] ?Address: [address] [place] [address] ?Director: Christopher Salas D.O., MPH us Fernando Mckeon MD LAB BLOOD ORDERABLES Final Resu lt [facility] [place] documented in this encounter Visit Diagnoses Not on filedocumented in this encounter Care Teams Heel Varnisher Relationship Specialty Start Date End Date Trenton Bess MD PCP - General 04/30/17 07/24/18 documented as of this encounter
--- OUTSIDE RECORDS SUMMARY | 2024-07-09 05:28 | XMS_ITS | Encounter Summary ---
Author Organization [facility] Address [address] [place] [address] Phone Care Team Providers Care Measurement Operator Name Role Phone Trenton Bess MD Primary Care Provider [phone] Reason for Visit * Reason Comments Patient Education Encounter Details Date Type Department Care Team (Late st Contact Info) Description 01/09/2018 3:15 PM CDT Office Visit [facility] Surgery [facility] 8th [place] [address] [place] [address] Crohn's disease of small and large intestines with complication (CMS/HCC) (Primary Dx) Social History Tobacco Use Types Packs/Day Years Used Date Smoking Tobacco: Never Smokeless Tobacco: Never Alcohol Use Standard Drinks/Week Comments No 0 (1 standard drink = 0.6 oz pur e alcohol) Sex and Gender Information Value Date Recorded Sex Assigned at Not on file 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 Gender Identity Not on file Sexual Orientation Not on file documented as of this encounter Last Filed Vital Signs Vital Sign Reading Time Taken Comments Blood Pressure 124/79 01/09/2018 2:57 PM CDT Pulse 84 01/09/2018 2:57 PM CDT Temperature 36.6 ??C (97.8 ??F) 01/09/2018 2:57 PM CD T Respiratory Rate - - Oxygen Saturation - - Inhaled Oxygen Concentration - - Weight 85.2 kg (187 lb 12.8 oz) 01/09/2018 2:57 PM CDT Height - - Body Mass Index 28.55 01/09/2018 1:35 PM CDT documented in this encounter Progress Notes * Zohra Garcia LPN - 01/09/2018 3:15 PM CDT Referred by Trenton Bess MD for Patient Education . Chief Complaint: Nic Teran is a 27 y.o. male for pre-operative education. Vitals: Vitals: 01/09/18 1457 BP: 124/79 Pulse: 84 Temp: 36.6 ??C (97.8 ??F) Body mass index is 28.55 kg/m??. Preoperative Education: Education provided which included: pain control, DVT prevention, SSI prevention, ambulation, diet/bowel activity, incentive spirometerusing the following method(s): written and verbal information provided. Impression and Plan: During today's visit, I discussed the following with the patient: Pre-op prep: bowel prep, antibiotics, CHG cleanser, immunonutrition and carb loading. Surgical procedure: Laparoscopic ileocolic resection Post-op pain management: multimodal Post-op diet: regular DVT prevention: Lovenox Incentive spirometer: 10x per hour Ambulation Lifestyle: recover from surgery Duration of Visit: 30 minutes Signature: Zohra Garcia LPN 01/09/2018 3:19 PM documented in this encounter Plan of Treatment Not on file documented as of this encounter Visit Diagnoses Diagnosis Crohn's disease of small and large intestines with complication (HCC)- Primary documented in this encounter Discontinued Medications Medication Sig Discontinue Reason Start Date End Da te ondansetron ODT (ZOFRAN-ODT) 8 mg disintegrating tabletIndications:Preoper ative Bowel Preparation Take one tablet at 11am when starting bowel prep, take one tablet as needed every six to eight hours after Duplicate order 12/21/2017 01/09/2018 documented as of this encounter Care Teams Measurement Operator Relationship Specialty Start Date End Date Trenton Bess MD PCP - General 04/30/17 07/24/18 documented as of this encounter
--- OUTSIDE RECORDS SUMMARY | 2024-07-09 05:28 | XMS_ITS | Encounter Summary ---
Author Organization [facility] Healthcare Address [address] [place] [address] Care Team Providers Care Military Source Operations Officer Name Role Phone Trenton Bess MD Primary Care Provider [phone] Encounter Details Date Type Department Care Team (Late st Contact Info) Description 08/07/2017 1:01 PM HOSPITALITY RECRUITER - 08/07/2017 11:59 PM HOSPITALITY RECRUITER Hospital Encounter [facility] [phone] Eliana Quevedo MD [address] [facility] [address] [place] [address] Discharge Disposition: Discharge to home or self care Social History Tobacco Use Types Packs/Day Years Used Date Smoking Tobacco: Former Sex and Gender Information Value Date Recorded Sex Assigned at Not on file Legal Sex Male 11:11 PM HOSPITALITY RECRUITER Gender Identity Not on file Sexual [...] Diagnosis Comments DIFFERENTIAL AUTO Routine Gen Lab 08/07/2017 1:1 7 PM HOSPITALITY RECRUITER CBC WITH AUTO DIFFERENTIAL Routine Gen Lab 08/07/2017 1:17 PM HOSPITALITY RECRUITER HEPATIC FUNCTION PANEL Routine Gen Lab 8 1:17 PM HOSPITALITY RECRUITER CRYPTOSPORIDIUM AND GIARDIA ANTIGEN ASSAY RTNm 08/07/2017 12:58 PM HOSPITALITY RECRUITER DISCHARGE LABORATORY CUMULATIVE REPORT 08/07/2017 12:00 AM HOSPITALITY RECRUITER documented in this encounter Results * Hepatic function panel (08/07/2017 1:17 PM HOSPITALITY RECRUITER) AST 26 10 - 50 Units/L [facility] ALT 53 7 - 55 Units/L [facility] Alk phos 58 40 - 130 Units/L [facility] Bilirubin, total 0.5 0.1 - 1.2 mg/dL [facility] Bilirubin, direct 0.2 0.1 - 0.3 mg/dL [facility] Protein, pl 7.6 6.5 - 8.5 g/dL [facility] Albumin 4.5 3.5 - 5.0 g/dL [facility] Blood specimen (specimen) 08/07/2017 1:17 PM HOSPITALITY RECRUITER 08/07/2017 1:32 PM HOSPITALITY RECRUITER Narrative [facility] - 08/07/2017 2:10 PM HOSPITALITY RECRUITER us Eliana Quevedo MD LAB BLOOD ORDERABLE S Final Result [facility] [place] [address] * Differential, auto (08/07/2017 1:17 PM HOSPITALITY RECRUITER) Neutrophil pct 52.5 % [facility] Imm gran pct 0.3 % [facility] Lymphocyte pct 39.5 % [facility] Monocyte pct 6.1 % [facility] Eosinophil pct 1.2 % [facility] Basophil pct 0.4 % [facility] Neutrophil abs 3.86 1.70 - 6.50 K/cumm [facility] Imm gran abs 0.02 0.00 - 0.10 K/cumm [facility] Lymphocyte abs 2.90 0.80 - 3.30 K/cumm [facility] Monocyte abs 0.45 0.20 - 0.80 K/cumm [facility] Eosinophil abs 0.09 0.00 - 0.50 K/cumm [facility] Basophil abs 0.03 0.00 - 0.10 K/cumm [facility] Blood specimen (specimen) 08/07/2017 1:17 PM HOSPITALITY RECRUITER 08/07/2017 1:32 PM HOSPITALITY RECRUITER Narrative [facility] - 08/07/2017 1:46 PM HOSPITALITY RECRUITER Eliana Quevedo MD LAB BLOOD ORDERABLE S Final Result [facility] [place] [address] * CBC with auto differential (08/07/2017 1:17 PM HOSPITALITY RECRUITER) WBC 7.4 3.8 - 9.9 K/cumm [facility] RBC 4.40 4.30 - 5.80 M/cumm [facility] Hgb 13.6 13.0 - 17.5 g/dL [facility] Hct 40.8 38.9 - 50.3 % [facility] MCV 92.7 81.3 - 96.4 fL [facility] MCH 30.9 27.1 - 33.3 pg [facility] MCHC 33.3 32.3 - 35.7 g/dL [facility] RDW CV 12.4 11.1 - 14.9 % [facility] RDW SD 42.5 35.7 - 48.1 fL [facility] Plt 216 150 - 400 K/cumm [facility] MPV 10.1 9.1 - 12.3 fL [facility] NRBC abs 0.00 0.00 - 0.01 K/cumm [facility] Blood specimen (specimen) 08/07/2017 1:17 PM HOSPITALITY RECRUITER 08/07/2017 1:32 PM HOSPITALITY RECRUITER Narrative [facility] - 08/07/2017 1:46 PM HOSPITALITY RECRUITER Eliana Quevedo MD LAB BLOOD ORDERABLE S Final Result [facility] [place] [address] * Ova and parasite screen (08/07/2017 12:58 PM HOSPITALITY RECRUITER) Report Final Report: Negative [facility] Stool 08/07/2017 12:5 8 PM HOSPITALITY RECRUITER 08/07/2017 3:22 PM HOSPITALITY RECRUITER Narrative [facility] - 08/07/2017 3:24 PM HOSPITALITY RECRUITER Received in PVA and Formalin. This test is an Immunoassay which screens for Cryptosporidium and Giardia only. ??Please request Microscopic OP Exam if comprehensive examination for ova and parasites is required. ?? Current interpretive data was last revised on 04. us Eliana Quevedo MD LAB MICROBIOLOGY - GENERAL ORDERABLES Final Result [facility] [place] [address] * DISCHARGE LABORATORY CUMULATIVE REPORT (08/07/2017 12:00 AM HOSPITALITY RECRUITER) Narrative 08/07/2017 12:00 AM HOSPITALITY RECRUITER Ordered by an unspecified provider. Historical Provider LAB BLOOD ORDERABLES Melinda l Result documented in this encounter Visit Diagnoses Not on filedocumented in this encounter Care Teams Military Source Operations Officer Relationship Specialty Start Date End Date Trenton Bess MD PCP - General 04/30/17 07/24/18 documented as of this encounter
--- OUTSIDE RECORDS SUMMARY | 2024-07-09 05:37 | XMS_ITS | Encounter Summary ---
Author Organization [facility] Address [address] [place] [address] Care Team Providers Care Manager Property Name Role Phone Karol Tran MD Primary Care Provider [phone] Encounter Details Date Type Department Care Team (Late st Contact Info) Description 03/23/2011 Abstract [facility] [address] [facility] [address] [place] [address] Franck Collazo MD NO ADDRESS ON FILE Social History Tobacco Use Types Packs/Day Years Used Date Smoking Tobacco: Never Assessed Sex and Gender Information Value Date Recorded Sex Assigned at Not on file Gender Identity Not on file Sexual Orientation Not on file documented as of this encounter Plan of Treatment Not on file documented as of this encounter Visit Diagnoses Not on filedocumented in this encounter Care Teams Manager Property Relationship Specialty [place] [address] [place] [address] PCP - General 02/10/05 10/30/12 documented as of this encounter
--- OUTSIDE RECORDS SUMMARY | 2024-07-09 05:37 | XMS_ITS | Encounter Summary ---
Author Organization [facility] Address [address] [place] [address] Care Team Providers Care Deckhand Sponge Boat Name Role Phone Karol Tran MD Primary Care Provider [phone] Reason for Visit * Reason Comments Follow Up for crohn's Encounter Details Date Type Department Care Team (Late st Contact Info) Description 11/23/2009 1:15 PM CDT Office Visit [facility] [address] [address] [place] [address] [place] [address] Crohn's Disease (Primary Dx) Social History Tobacco Use Types [...] - Inhaled Oxygen Concentration - - Weight 69.9 kg (154 lb 1.6 oz) 11/23/2009 1:23 P M CDT Height 171 cm (5' 7.32 ) 11/23/2009 1:23 PM CDT Body Mass Index 23.9 11/23/2009 1:23 PM CDT documented in this encounter Progress Notes * Karol Tran MD - 11/24/2009 12:17 PM CDT Nic Teran is a 19 y.o. male presents for follow-up evaluation. The crm marketing specialist is Karol Tran MD Chief Complaint Patient presents with ??? Follow Up for crohn's Interim Illness: The patient returns today for a routine follow-up. Illnesses since our last visit include:none. He continues to experience symptoms which include no GI symptoms on the current combination of medications. Current outpatient prescriptions Medication Sig Dispense Refill ??? adalimumab (HUMIRA) 40 mg/0.8 mL subCUT Kit Inject 0.8 mL by subcutaneous injection every 2 weeks. 6 Kit 3 ??? Mesalamine (APRISO) 0.375 gram Oral Cp24 Take 0.75 Gram by mouth daily. 180 Tab 3 ??? metronidazole ER (FLAGYL ER) 750 mg Oral TbSR Take 1 Tab by mouth daily at bedtime. 90 Tab 3 ??? AZATHIOPRINE 50 mg Oral Tab Take 50 mg by mouth daily. ??? FLAGYL ER 750 mg Oral TbSR Take 750 mg by mouth daily. ??? HUMATROPE 12 (36 unit) mg Injection Crtg 12 mg by Injection route daily. Review of Systems: Constitutional: no fever, weight loss or change in appetite Respiratory: no cough, increase work of breathing,wheezing or retractions Cardiovascular: no murmur or cardiac symptoms Gastrointestinal: see HPI Genitourinary: no dysuria or hematuria Musculoskeletal: no joint swelling or redness Neurological: no seizure or weakness Physical Examination: .GENERAL ASSESSMENT: active, alert, no acute distress, well hydrated, well nourished NECK: supple, full range of motion, no mass, normal lymphadenopathy, no thyromegaly LUNGS: Respiratory effort normal, clear to auscultation, normal breath sounds bilaterally HEART: Regular rate and rhythm, normal S1/S2, no murmurs, normal pulses and capillary fill ABDOMEN: Normal bowel sounds, soft, nondistended, no mass, no organomegaly. ASSESSMENT: Encounter Diagnosis Name Primary? Crohn's Disease Yes Nic's Crohn's is very well controlled on the combination of Humira and Flagyl. He has not had any perianal disease in recent months. I would recommend stopping the Flagyl and switching to mesalamine. Nic will try that for two weeks and if this does not cause exacerbation of perianal disease Nic will call and we will provide a 90 day script. Nic is going to stay in [facility] long term care pharmacist and I would recommend switching to the adult gastroenterology group. Nic will call Dr. Waller office to make an appointment PLAN: Orders Placed This Encounter ??? Adalimumab (humira) 40 mg/0.8 ml subcut kit ??? Mesalamine (apriso) 0.375 gram oral cp24 Patient Instructed to follow-up in 3 months documented in this encounter Plan of Treatment Not on file documented as of this encounter Visit Diagnoses Diagnosis Crohn's disease- Primary Regional enteritis of unspecified site documented in this encounter Care Teams Deckhand Sponge Boat Relationship Specialty [place] [address] [place] [phone] PCP - General 02/10/05 10/30/12 documented as of this encounter
--- OUTSIDE RECORDS SUMMARY | 2024-07-09 05:37 | XMS_ITS | Encounter Summary ---
Author Organization [facility] Address [address] [place] [address] Care Team Providers Care Register Repairer Name Role Phone Karol Tran MD Primary Care Provider Encounter Details Date Type Department Care Team (Late st Contact Info) Description 10/13/2010 10:53 AM CDT - 10/13/2010 11:59 PM T Hospital Encounter [facility] [place] [facility] [address] [place] [address] Jaycob Waller MD [address] [place] [address] Discharge Disposition: Home or Self Care Social History Tobacco Use Types Packs/Day Years Used Date Smoking Tobacco: Never Assessed Sex and Gender Information Value Date Recorded Sex Assigned at Not on file Gender Identity Not on file Sexual Orientation Not on file documented as of this encounter Medications at Time of Discharge Medication Sig Dispensed Refills Start Date End Date metroNIDAZOLE ER (FLAGYL ER) 750 mg Oral TbSRIndications:Crohn' s disease Take 1 Tab by mouth daily at bedtime. 90 Tab 3 12/02/2009 adalimumab (HUMIRA) 40 mg/0.8 mL subCUT KitIndications:Crohn's disease Inject 0.8 mL by subcutaneous injection every 2 weeks. 6 Kit 3 11/23/2009 AZATHIOPRINE 50 mg Oral Tab Take 50 mg by mouth daily. 11/04/2012 FLAGYL ER 750 mg Oral TbSR Take 750 mg by mouth daily. 11/04/2012 HUMATROPE 12 (36 unit) mg Injection Crtg 12 mg by Injection route daily. 11/04/2012 documented as of this encounter Plan of Treatment Not on file documented as of this encounter Procedures Procedure Name Priority Date/Time Associated Diagnosis Comments CBC WITH DIFFERENTIAL Routine 10/13/2010 11:00 AM CDT Regional enteritis of unspecified site VITAMIN D 25 HYDROXY Routine 10/13/2010 11:00 AM CDT Regional enteritis of unspecified site VITAMIN B12 LEVEL Routine 10/13/2010 11: 00 AM CDT Regional enteritis of unspecified site COMPREHENSIVE METABOLIC PANEL Routine 10/13/2010 11:00 AM CDT Regional enteritis of unspecified site documented in this encounter Results * VITAMIN D 25 HYDROXY (10/13/2010 11:00 AM CDT) VITAMIN D, 25 OH, D3 32 ng/mL [facility] Comment: 25-OHD3 indicates both endogenous production and supplementation. 25-OHD2 is an indicator of exogenous sources such as diet or supplementation. Therapy is based on measurement of Total 25-OHD, with levels <20 ng/mL indicative of Vitamin D deficiency while levels between 20 ng/mL and 30 ng/mL suggest insufficiency. Optimal levels are >/=30 ng/mL. ? Lab test performed by: [place] [address] [place] [address] JOY MATIAS MD,FCAP VITAMIN D, 25 OH, D2 <4 ng/mL [facility] VITAMIN D, 25 OH, TOTAL 32 30 - 100 ng/mL [facility] Blood specimen (specimen) 10/13/2010 11:00 AM CDT 10/13/2010 11:18 AM CDT Jaycob Waller MD CHEMISTRY ORDERABL ES [facility] CLIA# [id number] [address] [place] [address] * VITAMIN B12 LEVEL (10/13/2010 11:00 AM CDT) VITAMIN B12 483 211 - 946 pg/mL [facility] Comment: It has been reported that between 5 to 10% of patients with values between 200 and 400 pg/mL may experience neuropsychiatric and hematologic abnormalities due to occult B12 deficiency. ??Less than 1% of patients with values above 400 pg/mL will have symptoms. Blood specimen (specimen) 10/13/2010 11:00 AM CDT 10/13/2010 11:17 AM CDT Jaycob Waller MD CHEMISTRY ORDERABL ES [facility] CLIA# [id number] [address] [place], [place] [address] * COMPREHENSIVE METABOLIC PANEL (10/13/2010 11:00 AM CDT) SODIUM 138 135 - 145 mmol/L [facility] POTASSIUM 4.1 3.5 - 4.9 mmol/L [facility] CHLORIDE 100 96 - 108 mmol/L [facility] CO2 30 22 - 30 mmol/L [facility] CALCIUM 9.6 8.6 - 10.2 mg/dL [facility] BUN 9 6 - 20 mg/dL [facility] CREATININE 0.75 0.67 - 1.17 mg/dL [facility] GLUCOSE 90 65 - 99 mg/dL [facility] TOTAL PROTEIN 7.9 6.3 - 8.6 g/dL [facility] ALBUMIN 4.6 3.4 - 4.8 g/dL [facility] BILIRUBIN TOTAL 0.6 0.2 - 1.0 mg/dL [facility] ALKALINE PHOSPHATASE 94 40 - 129 U/L [facility] AST 29 12 - 38 U/L [facility] ALT 41 0 - 41 U/L [facility] GFR, >60 >=60 mL/min/1.7 sq meter [facility] GFR >60 >=60 mL/min/1.7 sq meter [facility] Comment: Modification of Diet in Renal Disease (MDRD) study formula. Estimated GFR rate interpretative information for both Americans and non- Americans is available on the [facility] Intranet at: [email or web address] Select: Lab Policies and Procedures Select: Reference Ranges - GFR Blood specimen (specimen) 10/13/2010 11:00 AM CDT 10/13/2010 11:17 AM CDT Jaycob Waller MD CHEMISTRY ORDERABL ES [facility] CLIA# [id number] [address] [place] [address] * CBC WITH DIFFERENTIAL (10/13/2010 11:00 AM CDT) WBC 6.4 4.0 - 9.8 K/uL [facility] RBC 5.04 4.50 - 5.40 M/uL [facility] HEMOGLOBIN 15.6 13.6 - 16.5 g/dL [facility] HEMATOCRIT 47.0 40.0 - 48.0 % [facility] MCV 93.3 82.0 - 99.0 fL [facility] MCH 31.0 27.2 - 32.6 pg [facility] MCHC 33.2 31.5 - 35.5 % [facility] PLATELETS 226 140 - 350 K/uL [facility] MPV 10.3 9.3 - 12.4 fL [facility] RDW 12.7 11.5 - 14.5 % [facility] RDW-STDEV 42.7 37.1 - 48.7 fL [facility] NEUTROPHILS 62 45 - 70 % [facility] LYMPHOCYTES 29 16 - 45 % [facility] MONOCYTES 8 3 - 13 % [facility] EOSINOPHILS 1 0 - 7 % [facility] BASOPHILS 1 0 - 2 % [facility] NEUTROPHIL ABSOLUTE 3.98 1.90 - 7.00 K/uL [facility] LYMPHOCYTE ABSOLUTE 1.89 0.70 - 4.50 K/uL [facility] MONOCYTE ABSOLUTE 0.48 0.10 - 1.30 K/uL [facility] EOSINOPHIL ABSOLUTE 0.06 0.00 - 0.70 K/uL [facility] BASOPHILS ABSOLUTE 0.03 0.00 - 0.20 K/uL [facility] Blood specimen (specimen) 10/13/2010 11:00 AM CDT 10/13/2010 11:17 AM CDT Jaycob Waller MD HEMATOLOGY ORDERAB LES Performing Organization Address City/State/[facility] Co de Phone Number [facility] CLIA# [id number] [address] [place] [address] documented in this encounter Visit Diagnoses Diagnosis Regional enteritis of unspecified site documented in this encounter Care Teams Register Repairer Relationship Specialty [place] [address] [place] [phone] PCP - General 02/10/05 10/30/12 documented as of this encounter
--- OUTSIDE RECORDS SUMMARY | 2024-07-09 05:37 | XMS_ITS | Encounter Summary ---
Author Organization [facility] Address [address] [place] [address] Care Team Providers Care Rn Bsn Name Role Phone Not Found, Stl Primary Care Provider Unavailabl e Reason for Visit * Auth/Cert - Closed Specialty Diagnoses / Procedures Referred By Renay rivero Referred To Contact General Surgery Procedures COLONOSCOPY [facility] [address] [facility] [address] [place] [address] Referral ID Status Reason Start Date Expiration Date Visits Re quested Visits Authorized [id number] Closed 1 1 Encounter Details Date Type Department Care Team (Late st Contact Info) Description 11/04/2012 9:11 AM CDT - 11/04/2012 12:04 PM CDT Hospital Encounter [facility] [place] [address] [place] [address] Shaina Swan MD [address] [facility] [address] [place] [address] Discharge Disposition: Home or Self Care Social History Tobacco Use Types Packs/Day Years Used Date Smoking Tobacco: Never Alcohol Use Standard Drinks/Week Comments No 0 (1 standard drink = 0.6 oz pur e alcohol) Sex and Gender Information Value Date Recorded Sex Assigned at Not on file Gender Identity Not on file Sexual Orientation Not on file documented as of this encounter Last Filed Vital Signs Vital Sign Reading Time Taken Comments Blood Pressure 109/68 11/04/2012 11:48 AM CDT Pulse 68 11/04/2012 11:48 AM CDT Temperature 36.6 ??C (97.8 ??F) 11/04/2012 11:34 AM C DT Respiratory Rate 24 11/04/2012 11:48 AM CDT Oxygen Saturation 99% 11/04/2012 11:48 AM CDT Inhaled Oxygen Concentration - - Weight 70.3 kg (155 lb) 11/04/2012 9:44 AM CDT Height 172.7 cm (5' 8 ) 11/04/2012 9:44 AM CDT Body Mass Index 23.57 11/04/2012 9:44 AM CDT documented in this encounter Discharge Instructions * Discharge Instructions* Shaina Swan MD - 11/04/2012 11:37 AM CDT Post-Colonoscopy Discharge Instructions FINDINGS: 1. Some activity in the ileum, biopsied. 2. Colon looks great. Only one small area of obvious inflammation. RECOMMENDATIONS: 1. Await biopsies. 2. Keep up the great job. Please read the instructions outlined below. These discharge instructions provide you with general information on caring for yourself after your procedure. Your doctor may also give you specific instructions. While your treatment has been planned according to the most current medical practices avail able, unavoidable complications occasionally occur. If you have any problems or questions after discharge, please call your doctor. ACTIVITY ?? You may resume your regular activity, but move at a slower pace for the next 24 hours. ?? Take frequent rest periods for the next 24 hours. ?? Walking will help get rid of the air and reduce the bloated feeling in your abdomen (belly). ?? No driving for 24 hours (because of the anesthesia (medicine) used during the test). ?? You may shower. ?? Do not sign any important legal documents or operate any machinery for 24 hours (because of the anesthesia used during the test). NUTRITION ?? Drink plenty of fluids. ?? You may resume your normal diet as instructed by your doctor. ?? Begin with a light meal and progress to your normal diet. Heavy or fried foods are harder to digest and may make you feel nauseated (sick to your stomach). ?? Avoid alcoholic beverages for 24 hours or as instructed. MEDICATIONS ?? You may resume your normal medications unless your doctor tells you otherwise. WHAT YOU CAN EXPECT TODAY ?? Some feelings of bloating in the abdomen. ?? Passage of more gas than usual. ?? Spotting of blood in your stool or on the toilet paper. ?? Expect your bowel habits to return to normal in 2-3days. IF YOU HAD POLYPS REMOVED DURING THE COLONOSCOPY: ?? Avoid NSAIDs FOLLOW-UP Your doctor will discuss the results of your test with you or your family member today. Please follow the instructions provided with your discharge materials to obtain your pathology result. A copy of today's exam and pathology will by sent to your primary doctor. CALL YOUR CAREGIVER IMMEDIATELY IF: ?? There is more than a spotting of blood in your stool. ?? There is abdominal distention (your abdomen is swollen). ?? There is vomiting. ?? You have a temperature over 101?? F (38.3?? C). ?? There is abdominal pain or discomfort that is severe or gets worse throughout the day. [facility] [phone] documented in this encounter Medications at Time of Discharge Medication Sig Dispensed Refills Start Date End Date metroNIDAZOLE ER (FLAGYL ER) 750 mg Oral TbSRIndications:Crohn's disease Take 1 Tab by mouth daily at bedtime. 90 Tab 3 12/02/2009 adalimumab (HUMIRA) 40 mg/0.8 mL subCUT KitIndications:Crohn's disease Inject 0.8 mL by subcutaneous injection every 2 weeks. 6 Kit 3 11/23/2009 documented as of this encounter H&P Notes * Shaina Swan MD - 11/04/2012 11:05 AM CDT PRE PROCEDURE EVALUATION DATE: 11/04/2012 HPI: This is a 22 y.o. male patient scheduled for Colonoscopy for Crohn's disease. Patient Active Problem List Diagnoses Date Noted ??? Crohn's Disease 01/06/2008 Past Medical History Diagnosis Date ??? GI problem ??? Unspecified deficiency anemia ??? Crohn's disease Past Surgical History Procedure Date ??? Pt denies relevant surgical history ??? Chg colonoscopy,diagnostic Prescriptions prior to admission Medication Sig Dispense Refill ??? metroNIDAZOLE ER (FLAGYL ER) 750 mg Oral TbSR Take 1 Tab by mouth daily at bedtime. 90 Tab 3 ??? adalimumab (HUMIRA) 40 mg/0.8 mL subCUT Kit Inject 0.8 mL by subcutaneous injection every 2 weeks. 6 Kit 3 ??? AZATHIOPRINE 50 mg Oral Tab Take 50 mg by mouth daily. ??? FLAGYL ER 750 mg Oral TbSR Take 750 mg by mouth daily. ??? HUMATROPE 12 (36 unit) mg Injection Crtg 12 mg by Injection route daily. No Known Allergies History Substance Use Topics ??? Smoking status: Never Smoker ??? Smokeless tobacco: Not on file ??? Alcohol Use: No Family History Problem Relation Age of Onset ??? Healthy Father ??? Healthy Mother bipolar disorder ??? Healthy Sister ??? Healthy Brother bipolar disorder Head: atraumatic, Normocephalic, without obvious abnormality Lungs: clear to auscultation bilaterally, normal respiratory effort Airway: No apparent abnormality Heart: normal rate, regular rhythm, normal S1, S2, no murmurs, rubs, clicks or gallops Abdomen: Soft, non-tender. Bowel sounds normal. No masses, no organomegaly. Neurologic: Grossly normal ASA Classification: ASA 2 - Patient with mild systemic disease with no functional limitations Informed Consent: The patient was informed of the indications for the procedure, the risks/benefits and the alternatives, and agreed to proceed. In particular, the patient was informed of the risk of perforation/(1:1000), medication side effect, infection, a missed lesion, or incomplete examination. In the case of dilatation, the patient was informed of the risk of perforation (1 to 5%). There was nothing onhistory or physical examination precluding the procedure. IMPRESSION & PLAN: Indications for procedure as noted in HPI. Will proceed with the above mentioned procedure(s) as scheduled. Shaina Swan MD documented in this encounter Procedure Notes * Neil Banks - 11/04/2012 11:37 AM CDTAssociated Order(s): GI REPORT * Shaina Swan MD - 11/04/2012 11:36 AM CDTAssociated Order(s): GI REPORT Leonie Bray [facility] Patient Name: Nic Teran Procedure Date No Time: 11/04/2012 Date of : 1990 Admit Type: Outpatient Age: 22 Attending MD: Shaina Swan MD Procedure: Colonoscopy Indications: Established Crohn's disease of the colon Providers: Shaina Swan MD [address] [place] [address] [address] [place] [address] Referring MD: Neil Not Found Medicines: Monitored Anesthesia Care Complications: No immediate complications. Procedure: Informed consent was obtained for the procedure, including moderate sedation after risks were discussed. Based on the pre-procedure assessment, including review of the patient?s medical history, medications, allergies, and review of systems, the patient was deemed to be an appropriate candidate for sedation. A timeout was performed. Continuous ECG monitoring, pulse oximetry, blood pressure monitoring, and direct observation were performed. The scope was introduced through the anus and advanced to the terminal ileum. The colonoscopy was performed without difficulty. The patient tolerated the procedure well. The quality of the bowel preparation was good. Findings: Localized moderate inflammation characterized by congestion (edema), erythema and friability was found in the sigmoid colon. Biopsies were taken with a cold forceps for histology. The colon (entire examined portion) appeared normal. Biopsies were taken with a cold forceps for histology. Estimated blood loss was minimal. Diffuse moderate inflammation characterized by congestion (edema), erosions, friability, granularity and linear erosions was found in the terminal ileum. Biopsies were taken with a cold forceps for histology. The exam was otherwise without abnormality. Estimated Blood Loss: Estimated blood loss: none. Impression: - Single area of inflammatory change in the sigmoid colon, with features of an inflammatory polyp, biopsied. - Mild to moderate ileitis, biopsied. Recommendation: - Await pathology results. - Overall, Spike has been doing quite well and I am reluctant to change his regiment significantly. If his symptoms worsen, will consider a brief course of Entocort. Shaina Swan MD 11/04/2012 11:36 AM This report has been signed electronically. Number of Addenda: [phone] [facility] [address] [place] [address] documented in this encounter OR Notes * Anesthesia Post Evaluation - Jason Hatch MD - 11/04/2012 2:01 PM CDT Phase II Postanesthesia Evaluation Including [facility] Modified Anand Score Patient seen and evaluated: [facility] Modified Anand Score: Score: 20 (11/04/121148) COMMENTS: No apparent Anesthesia related complications RESPIRATORY FUNCTION: Respiration: able to breath and cough freely (11/04/121148) [2=able to breathe and cough freely, 1=dyspnea, limited breathing or tachypnea, 0=apnea or mechanicventilator] O2 Saturation: able to maintain O2 saturation greater than 92% on room air (11/04/121148) [2=able to maintain O2 saturation greater than 92% on room air, 1=needs O2 inhalation to maintain O2 saturation greater than 90%, 0=O2 saturation less than 90% even with O2 supplement] Resp: 24 (11/04/121147)SpO2: 99 % (11/04/121147) CARDIOVASCULAR FUNCTION: BP: 109/68 mmHg (11/04/121147) Circulation: BP within 20% of preanesthetic level (11/04/121148) [2=BP within 20% of preanesthetic level, 1=BP within 20-49% of preanesthetic level, 0=BP within 50%of preanesthetic level] MENTAL STATUS, NEURO, ACTIVITY: Consciousness: fully awake (11/04/121148) [2=fully awake, 1=arousable on calling, 0=not responding] Activity: able to move 4 extremities voluntarily or on command (11/04/121148) [2=able to move 4 extremities voluntarily or on command, 1=able to move 2 extremities voluntarily or on command, 0=unable to move extremities voluntarily or on command] Ambulation: able to stand up and walk straight, on ordered bedrest, or performing at patient's prior level of function (11/04/121148) [2=able to stand up and walk straight, on ordered bedrest, or performing at patient's prior level of function, 1=vertigo when erect, 0=dizziness when supine] TEMPERATURE: Temp: 97.8 ??F (36.6 ??C) (11/04/12 1134) PAIN: Presence of Pain: denies pain/discomfort (11/04/12 1148) Pain: pain free (11/04/12 1149) [2=pain free, 1=pain handled by oral medication, 0=pain requiring parenteral medication] NAUSEA AND VOMITING: Fasting/Feeding: able to drink fluids, ice chips or NPO (11/04/12 1149) [2=able to drink fluids, ice chips or NPO, 1=nauseated, 0=nausea and vomiting] POSTOPERATIVE HYDRATION: Intake/Output Summary (Last 24 hours) at 11/04/12 1401 Last data filed at 11/04/12 1149 Gross per 24 hour Intake 220 ml Output 0 ml Net 220 ml Urine Output: has voided, adequate urine output per device, or not applicable (11/04/12 114) [2=has voided, adequate urine output per device, or not applicable, 1=unable to void but comfortable, 0=unable to void and uncomfortable] WOUND: Dressing: dry and clean or not applicable (11/04/12 114) [2=dry and clean or not aplicable, 1=wet, marked and not increasing, 0=growing area of wetness] Jason Hatch MD 11/04/2012 2:01 PM * OR Anesthesia - Jason Hatch MD - 11/04/2012 9:46 AM CDT GI Lab Pre-Anesthesia Evaluation - Long Form 11/04/2012 9:46 AM Name: Nic Teran Age: 22 y.o. Sex: male CSN: [id number] Procedure: Procedure(s): COLONOSCOPY Surgeons/Assistants: Surgeon(s) and Role: * Shaina Swan MD - Primary No Known Allergies Prescriptions prior to admission Medication Sig Dispense Refill ??? metroNIDAZOLE ER (FLAGYL ER) 750 mg Oral TbSR Take 1 Tab by mouth daily at bedtime. 90 Tab 3 ??? adalimumab (HUMIRA) 40 mg/0.8 mL subCUT Kit Inject 0.8 mL by subcutaneous injection every 2 weeks. 6 Kit 3 ??? AZATHIOPRINE 50 mg Oral Tab Take 50 mg by mouth daily. ??? FLAGYL ER 750 mg Oral TbSR Take 750 mg by mouth daily. ??? HUMATROPE 12 (36 unit) mg Injection Crtg 12 mg by Injection route daily. Current Facility-Administered Medications Medication Dose Route Frequency Provider Last Rate Last Dose ??? lactated ringers solution IV Pre-Proc Continuous Shaina Swan MD ??? lidocaine PF 2 % (XYLOCAINE MPF) injection 0.3 mL 0.3 mL Intradermal Pre- Proc Once Shaina Swan MD Patient Active Problem List Diagnoses Date Noted ??? Crohn's Disease 01/06/2008 Past Medical History Diagnosis Date ??? GI problem ??? Unspecified deficiency anemia ??? Crohn's disease Past Surgical History Procedure Date ??? Pt denies relevant surgical history ??? Chg colonoscopy,diagnostic History Substance Use Topics ??? Smoking status: Never Smoker ??? Smokeless tobacco: Not on file ??? Alcohol Use: No Family History Problem Relation Age of Onset ??? Healthy Father ??? Healthy Mother bipolar disorder ??? Healthy Sister ??? Healthy Brother bipolar disorder Previous Anesthesia Problems/Concerns: No anesthesia problems/complications Review of Systems Cardiovascular: negative Respiratory: negative Gastroenterology: crohn's Bowel Prep:Yes PHYSICAL EXAM There were no vitals taken for this visit. Weight: Height: Ht Readings from Last 1 Encounters: 11/23/09 5' 7.32 (1.71 m) BMI: There is no height or weight on file to calculate BMI. Airway: normal range of motion: Airway Class: II (soft palate, uvula, fauces visible); None Lungs: clear to auscultation bilaterally, normal respiratory effort Heart: regular rate and rhythm, S1, S2 normal, no murmur, click, rub or gallop Neuro: alert, oriented x 3, no defects noted in general exam. Vascular Access: Peripheral Line LABS Lab Results Component Value Date WBC 6.4 10/13/2010 HEMOGLOBIN 15.6 10/13/2010 HEMATOCRIT 47.0 10/13/2010 PLATELETS 226 10/13/2010 MCV 93.3 10/13/2010 Lab Results Component Value Date SODIUM 138 10/13/2010 POTASSIUM 4.1 10/13/2010 CHLORIDE 100 10/13/2010 CO2 30 10/13/2010 CALCIUM 9.6 10/13/2010 BUN 9 10/13/2010 CREATININE 0.75 10/13/2010 GLUCOSE 90 10/13/2010 No results found for this basename: INR, PT, PROTIMEPOC No results found for this basename: HCGURPOC, HCGQUALUR, HCGQUAL, HCGQUANT, HCGINTACT No results found for this basename: glucpoc EKG: EKG not indicated today Other Studies/Considerations: None Postprocedure pain management discussed no Smoking/Tobacco Counseling: None Recommendations: None ASA Physical Status: ASA 1 - Normal healthy patient I have seen and examined this patient and confirm that all data is current and accurate. Yes Choice of Anesthesia/Anesthesia Plan: Proceed, General and Routine Monitoring I have discussed the anesthetic options and the risks/benefits with the patient/family. Questions have been solicited and answered. Yes Jason Hatch MD documented in this encounter Plan of Treatment Not on file documented as of this encounter Procedures Procedure Name Priority Date/Time Associated Diagnosis Comments PATHOLOGY Routine 11/04/2012 1:09 PM CDT GI REPORT 11/04/2012 11:37 AM CDT COLONOSCOPY 11/04/2012 11:04 AM CDT documented in this encounter Results * PATHOLOGY (11/04/2012 1:09 PM CDT) SURGICAL PATHOLOGY ?[facility] ?[address] ? [place], [place] ??[address] ? Patient: ??NIC TERAN ? : ??1990 ? Procedure Date: ??11/04/2012 ? Accession Date: ??11/04/2012 ? Case No: ??[id number] ? Ordering Dr: ??SHAINA SWAN ? Case type SW is performed by [facility], [address], ? [place], [place] ??[address]; all other case types are performed by [facility] ? [facility], [address], [place] ??[address] ?SURGICAL PATHOLOGY & NON-GYNECOLOGIC CYTOPATHOLOGY REPORT ? DIAGNOSIS ? SMALL BOWEL, ILEUM, BIOPSY: ? - CHRONIC ACTIVE ILEITIS, MODERATE ACTIVITY. ? COLON, RANDOM, BIOPSY: ? - CHRONIC ACTIVE COLITIS, MILD ACTIVITY. ? COLON, SIGMOID AT 15 CM, BIOPSY: ? - CHRONIC ACTIVE COLITIS, MINIMAL ACTIVITY. ? - NEUTROPHIL-LADEN MUCIN, CONSISTENT WITH PSEUDOMEMBRANES. ? Specimen Description: ? (1) Ileum biopsy; (2) random colon biopsy; (3) sigmoid colon biopsy at 15 ? cm. ? Operative Procedure: ? Colonoscopy. ? Patient Information/Histo ry/Diagnosis: ? (1), (2) and (3) History of Crohn's. ? Gross: ? Received are three containers labeled Nic Teran. Received in the ? first container labeled ileum biopsy is one wolfe tissue fragment measuring ? 0.3 cm in greatest dimension. The specimen is completely submitted labeled ? A1. ? Received in the second container labeled random colon biopsy are five wolfe ? tissue fragments ranging from 0.2 to 0.3 cm in greatest dimension. The ? specimen is completely submitted labeled B1. ? Received in the third container labeled sigmoid colon biopsy at 15 cm is ? one wolfe tissue fragment measuring less than 0.1 cm in greatest dimension. ? The specimen is completely submitted labeled C1. ? STEPHEN/CARMEL 11.04.2012 04:34 pm ? Microscopic: ? The slides are labeled [id number] and Nic Teran. ? The sections of the ileum biopsy show a single fragment of small bowel ? mucosa. Moderate, acute inflammation is identified. Villous blunting is ? present. Crypt irregularities are noted. Granulomas are not identified, and ? there is no evidence of dysplasia or malignancy. ? The sections of the random colon biopsies show multiple fragments of ? colonic mucosa. Minimal, acute inflammation is identified. Minimal crypt ? architectural distortion is also noted. Granulomas are not identified, and ? there is no evidence of dysplasia or malignancy. ? The sections of the sigmoid colon biopsy at 15 cm show two fragments of ? colonic mucosa. Minimal, acute inflammation is identified. Plasma cells ? within the lamina propria are slightly increased. Mild crypt architectural ? distortion is seen. Neutrophil-laden mucin is identified, suggestive of a ? pseudomembrane. Granulomas are not identified, and there is no evidence of ? dysplasia or malignancy. ? The findings in the above biopsies are consistent with a chronically active ? inflammatory process, which corroborates the patient's history of Crohn s ? disease. ? OJL/TMZ 11.05.2012 11:37 am ? Staging Form: ? No. ? ELECTRONIC SIGNATURE FOR KAREN MOTTA M.D.- 11/05/12 02:18 pm [facility] 11/04/2012 1:09 PM CDT Shania Swan MD PATHOLOGY/CYTOLOGY ORDERABLES [facility] [id number] [address] [place] [address] * GI REPORT (11/04/2012 11:37 AM CDT) Narrative Transcriptions Shaina Swan MD - 11/04/2012 11:36 AM CDT Leonie Sand[facility] Patient Name: Nic Teran Procedure Date No Time: 11/04/2012 Date of : 1990 Admit Type: Outpatient Age: 22 Attending MD: Shaina Swan MD Procedure: Colonoscopy Indications: Established Crohn's disease of the colon Providers: Shaina Swan MD [address] [place] [address] [address] [place] [address] Referring MD: Neil Not Found Medicines: Monitored Anesthesia Care Complications: No immediate complications. Procedure: Informed consent was obtained for the procedure, including moderate sedation after risks were discussed. Based on the pre-procedure assessment, including review of the patient?s medical history, medications, allergies, and review of systems, the patient was deemed to be an appropriate candidate for sedation. A timeout was performed. Continuous ECG monitoring, pulse oximetry, blood pressure monitoring, and direct observation were performed. The scope was introduced through the anus and advanced to the terminal ileum. The colonoscopy was performed without difficulty. The patient tolerated the procedure well. The quality of the bowel preparation was good. Findings: Localized moderate inflammation characterized by congestion (edema), erythema and friability was found in the sigmoid colon. Biopsies were taken with a cold forceps for histology. The colon (entire examined portion) appeared normal. Biopsies were taken with a cold forceps for histology. Estimated blood loss was minimal. Diffuse moderate inflammation characterized by congestion (edema), erosions, friability, granularity and linear erosions was found in the terminal ileum. Biopsies were taken with a cold forceps for histology. The exam was otherwise without abnormality. Estimated Blood Loss: Estimated blood loss: none. Impression: - Single area of inflammatory change in the sigmoid colon, with features of an inflammatory polyp, biopsied. - Mild to moderate ileitis, biopsied. Recommendation: - Await pathology results. - Overall, Spike has been doing quite well and I am reluctant to change his regiment significantly. If his symptoms worsen, will consider a brief course of Entocort. Shaina Swan MD 11/04/2012 11:36 AM This report has been signed electronically. Number of Addenda: [phone] [facility] [address] [place] [address] Neil Banks - 11/04/2012 11:37 AM CDT Shaina Swan MD GI PROCEDURE ORDER YOSELYN documented in this encounter Visit Diagnoses Not on filedocumented in this encounter Administered Medications Inactive Administered Medications - up to 3 most recent administrations Medication Order MAR Action Action Date Dose Rate Site lactated ringers solution IV, at 150 mL/hr, PRE-PROCEDURE CONTINUOUS, Starting on Sun11/04/12 at 0945, Until Sun11/04/12 at 1419, Routine, Pre-op New Bag 11/04/2012 9:56 AM CDT 150 mL/hr documented in this encounter Active and Recently Administered Medications Times are shown in CDT. Continuous Medication Order 11/02/2012 11/03/2012 11/04/2012 lactated ringers solution (CANCELED) IV, at 150 mL/hr, PRE-PROCEDURE CONTINUOUS, Starting on Sun11/04/12 at 0945, Until Sun11/04/12 at 1419, Routine, Pre-op 0956 (New Bag - Prov ider: Randi Godoy RN)1150 (Stopped - Provider: Dina Tinajero RN) documented in this encounter Care Teams Rn Bsn Relationship Specialty Start Date End Date Not Found, Stl NO ADDRESS ON FILE PCP - General 10/31/12 documented as of this encounter
--- OUTSIDE RECORDS SUMMARY | 2024-07-09 05:37 | XMS_ITS | Encounter Summary ---
Author Organization [facility] Address [address] [place] [address] Care Team Providers Care Video Game Animator Name Role Phone Karol Tran MD Primary Care Provider [phone] Reason for Visit * Reason Comments Follow Up for crohn's Encounter Details Date Type Department Care Team (Late st Contact Info) Description 05/25/2009 1:45 PM EXPLOSIVE OPERATOR Office Visit [facility] [address] [address] [place] [address] [place] [address] Crohn's Disease (Primary Dx) Social [...] - Inhaled Oxygen Concentration - - Weight 69 kg (152 lb 1.9 oz) 05/25/2009 1:43 PM EXPLOSIVE OPERATOR Height 169 cm (5' 6.54 ) 05/25/2009 1:43 PM EXPLOSIVE OPERATOR Body Mass Index 24.16 05/25/2009 1:43 PM EXPLOSIVE OPERATOR documented in this encounter Progress Notes * Karol Tran MD - 05/25/2009 1:55 PM CST Nic Teran is a 18 y.o. male presents for follow-up evaluation. The socket welder helper is Karol Tran MD Chief Complaint Patient presents with ??? Follow Up for crohn's Interim Illness: The patient returns today for a routine follow-up. Illnesses since our last visit include:had a recent bout of iritis. He continues to experience symptoms which include no GI symptoms on the current medications. Current outpatient prescriptions Medication Sig Dispense Refill ??? metronidazole ER (FLAGYL ER) 750 mg [...] Neurological: no seizure or weakness Physical Examination: . GENERAL ASSESSMENT: active, alert, no acute distress, well [...] Encounter Diagnosis Name Primary? Crohn's Disease Yes Well controlled. This is only his first extra intestinal symptoms. If there were recurrent problemswith extra intestinal manifestation we may consider a change in medication or increasing Humira. PLAN: Orders Placed This Encounter ??? Metronidazole sr 750 mg tab ??? Adalimumab 40 mg/0.8 ml sub-q kit Patient Instructed to follow-up in 6 months OSIVE OPERATOR documented in this encounter Plan of Treatment Not on file documented as of this encounter Visit Diagnoses Diagnosis Crohn's disease- Primary Regional enteritis of unspecified site documented in this encounter Care Teams Video Game Animator Relationship Specialty [place] [address] [place] [address] PCP - General 02/10/05 10/30/12 documented as of this encounter
--- OUTSIDE RECORDS SUMMARY | 2024-07-09 05:37 | XMS_ITS | Encounter Summary ---
Author Organization [facility] Address [address] [place] [address] Care Team Providers Care Refining Machine Operator Name Role Phone Karol Tran MD Primary Care Provider [phone] Encounter Details Date Type Department Care Team (Late st Contact Info) Description 07/20/2010 Orders Only [facility] Admitting [address] [place] [address] Jaycob Waller MD [address] [facility] [address] [place] [id number] Regional enteritis of unspecified site (Primary Dx) Social History Tobacco Use Types Packs/Day Years Used Date Smoking Tobacco: Never Assessed Sex and Gender Information Value Date Recorded Sex Assigned at Not on file Gender Identity Not on file Sexual Orientation Not on file documented as of this encounter Plan of Treatment Not on file documented as of this encounter Results * TRANSGLUTAMINASE AB IGG/IGA (07/20/2010 4:15 PM INDUCTION MACHINE SETTER) COMMENT See additional orderables. [facility] Blood specimen (specimen) 07/20/2010 4:15 PM INDUCTION MACHINE SETTER 07/20/2010 4:38 PM INDUCTION MACHINE SETTER Narrative [facility] - 07/22/2010 9:29 PM INDUCTION MACHINE SETTER FAX THE RESULT TO [phone] Jaycob Waller MD CHEMISTRY ORDERABL ES [facility] CLIA# [id number] [address] [facility] [place], [place] [address] * (ABNORMAL) IGA (07/20/2010 4:15 PM INDUCTION MACHINE SETTER) IGA 515.4(H) 80.0 - 375.0 mg/dL [facility] Blood specimen (specimen) 07/20/2010 4:15 PM INDUCTION MACHINE SETTER 07/20/2010 4:38 PM INDUCTION MACHINE SETTER Narrative [facility] - 07/20/2010 5:25 PM INDUCTION MACHINE SETTER FAX THE RESULT TO [phone] Jaycob Waller MD CHEMISTRY ORDERABL ES Performing Organization Address City/[facility]/ZIP Co de Phone Number [facility] CLIA# [id number] [address] [facility] [place] [address] * FERRITIN (07/20/2010 4:15 PM INDUCTION MACHINE SETTER) Pathologist [facility] FERRITIN 85 30 - 400 ng/mL [facility] Blood specimen (specimen) 07/20/2010 4:15 PM INDUCTION MACHINE SETTER 07/20/2010 4:38 PM INDUCTION MACHINE SETTER Narrative [facility] - 07/20/2010 5:33 PM INDUCTION MACHINE SETTER FAX THE RESULT TO [phone] Jaycob Waller MD CHEMISTRY ORDERABL ES [facility] CLIA# [id number] [address] [facility] [place], [place] [address] * IRON AND TIBC (07/20/2010 4:15 PM INDUCTION MACHINE SETTER) IRON 82 45 - 160 ug/dL [facility] IRON % SATURATION 29 20 - 50 % [facility] TIBC 287 250 - 450 ug/dL [facility] TRANSFERRIN 226 200 - 360 mg/dL [facility] Blood specimen (specimen) 07/20/2010 4:15 PM INDUCTION MACHINE SETTER 07/20/2010 4:38 PM INDUCTION MACHINE SETTER Narrative [facility] - 07/20/2010 5:19 PM INDUCTION MACHINE SETTER FAX THE RESULT TO [phone] Jaycob Waller MD CHEMISTRY ORDERABL ES Performing Organization Address [facility] Co de Phone Number [facility] CLIA# [id number] [address] [place] [address] * (ABNORMAL) VITAMIN D 25 HYDROXY (07/20/2010 4:15 PM INDUCTION MACHINE SETTER) VITAMIN D, 25 OH, D3 20 ng/mL [facility] Comment: 25-OHD3 indicates both endogenous production and supplementation. 25-OHD2 is an indicator of exogenous sources such as diet or supplementation. Therapy is based on measurement of Total 25-OHD, with levels <20 ng/mL indicative of Vitamin D deficiency while levels between 20 ng/mL and 30 ng/mL suggest insufficiency. Optimal levels are >/=30 ng/mL. ? Lab test performed by: [facility] [address] [address] JOY MATIAS MD,FCAP VITAMIN D, 25 OH, D2 <4 ng/mL [facility] VITAMIN D, 25 OH, TOTAL 20(L) 30 - 100 ng/mL [facility] Blood specimen (specimen) 07/20/2010 4:15 PM INDUCTION MACHINE SETTER 07/20/2010 4:38 PM INDUCTION MACHINE SETTER Narrative [facility] - 07/22/2010 2:41 PM INDUCTION MACHINE SETTER FAX THE RESULT TO [phone] Jaycob Waller MD CHEMISTRY ORDERABL ES Performing Organization Address [facility]/ZIP Co de Phone Number [facility] CLIA# [id number] [address] [place] [address] * VITAMIN B12 LEVEL (07/20/2010 4:15 PM INDUCTION MACHINE SETTER) VITAMIN B12 448 211 - 946 pg/mL [facility] Comment: It has been reported that between 5 to 10% of patients with values between 200 and 400 pg/mL may experience neuropsychiatric and hematologic abnormalities due to occult B12 deficiency. ??Less than 1% of patients with values above 400 pg/mL will have symptoms. Blood specimen (specimen) 07/20/2010 4:15 PM INDUCTION MACHINE SETTER 07/20/2010 4:38 PM INDUCTION MACHINE SETTER Narrative [facility] - 07/20/2010 5:43 PM INDUCTION MACHINE SETTER FAX THE RESULT TO [phone] Jaycob Waller MD CHEMISTRY ORDERABL ES [facility] CLIA# [id number] [address] [facility] [address] [facility] [address] * CBC WITH DIFFERENTIAL (07/20/2010 4:15 PM INDUCTION MACHINE SETTER) [facility] WBC 8.1 4.0 - 9.8 K/uL [facility] RBC 4.70 4.50 - 5.40 M/uL [facility] HEMOGLOBIN 14.7 13.6 - 16.5 g/dL [facility] HEMATOCRIT 44.1 40.0 - 48.0 % [facility] MCV 93.8 82.0 - 99.0 fL [facility] MCH 31.3 27.2 - 32.6 pg [facility] MCHC 33.3 31.5 - 35.5 % [facility] PLATELETS 215 140 - 350 K/uL [facility] MPV 11.2 9.3 - 12.4 fL [facility] RDW 12.5 11.5 - 14.5 % [facility] RDW-STDEV 42.1 37.1 - 48.7 fL [facility] NEUTROPHILS 63 45 - 70 % [facility] LYMPHOCYTES 27 16 - 45 % [facility] MONOCYTES 8 3 - 13 % [facility] EOSINOPHILS 1 0 - 7 % [facility] BASOPHILS 0 0 - 2 % [facility] NEUTROPHIL ABSOLUTE 5.12 1.90 - 7.00 K/uL [facility] LYMPHOCYTE ABSOLUTE 2.21 0.70 - 4.50 K/uL [facility] MONOCYTE ABSOLUTE 0.64 0.10 - 1.30 K/uL [facility] EOSINOPHIL ABSOLUTE 0.10 0.00 - 0.70 K/uL [facility] BASOPHILS ABSOLUTE 0.03 0.00 - 0.20 K/uL [facility] Blood specimen (specimen) 07/20/2010 4:15 PM INDUCTION MACHINE SETTER 07/20/2010 4:39 PM INDUCTION MACHINE SETTER Jaycob Waller MD HEMATOLOGY ORDERAB LES [facility] CLIA# [id number] [address] [place] [address] * COMPREHENSIVE METABOLIC PANEL (07/20/2010 4:15 PM INDUCTION MACHINE SETTER) SODIUM 139 135 - 145 mmol/L [facility] POTASSIUM 3.7 3.5 - 4.9 mmol/L [facility] CHLORIDE 101 96 - 108 mmol/L [facility] CO2 25 22 - 30 mmol/L [facility] CALCIUM 9.2 8.6 - 10.2 mg/dL [facility] BUN 11 6 - 20 mg/dL [facility] CREATININE 0.71 0.67 - 1.17 mg/dL [facility] GLUCOSE 91 65 - 99 mg/dL [facility] TOTAL PROTEIN 7.3 6.3 - 8.6 g/dL [facility] ALBUMIN 4.3 3.4 - 4.8 g/dL [facility] BILIRUBIN TOTAL 0.3 0.2 - 1.0 mg/dL [facility] ALKALINE PHOSPHATASE 65 40 - 129 U/L [facility] AST 22 12 - 38 U/L [facility] ALT 30 0 - 41 U/L [facility] GFR, >60 >=60 mL/min/1.7 sq meter [facility] GFR >60 >=60 mL/min/1.7 sq meter [facility] Comment: Modification of Diet in Renal Disease (MDRD) study formula. Estimated GFR rate interpretative information for both Americans and non- Americans is available on the [facility] Intranet at: [email or web address] Select: Lab Policies and Procedures Select: Reference Ranges - GFR Blood specimen (specimen) 07/20/2010 4:15 PM INDUCTION MACHINE SETTER 07/20/2010 4:38 PM INDUCTION MACHINE SETTER Narrative [facility] - 07/20/2010 5:19 PM INDUCTION MACHINE SETTER FAX THE RESULT TO [phone] Jaycob Waller MD CHEMISTRY ORDERABL ES [facility] CLIA# [id number] [address] [facility] [place] [address] documented in this encounter Visit Diagnoses Diagnosis Regional enteritis of unspecified site Regional enteritis of unspecified site- Primary documented in this encounter Care Teams Refining Machine Operator Relationship Specialty [place] [address] [place] [address] PCP - General 02/10/05 10/30/12 documented as of this encounter
--- OUTSIDE RECORDS SUMMARY | 2024-07-09 05:37 | XMS_ITS | Encounter Summary ---
Author Organization [facility] Address [address] [place] [address] Care Team Providers Care General Repair Mechanic Name Role Phone Karol Tran MD Primary Care Provider [phone] Encounter Details Date Type Department Care Team (Late st Contact Info) Description 07/20/2010 3:45 PM ENGINEER - 07/20/2010 11:59 PM [facility] Hospital Encounter [facility] Laboratory Services Medical [place] A [address] [facility], [place] [address] Jaycob Waller MD [address] [facility] [address] [place] [address] Discharge Disposition: Home or Self Care Social [...] Procedure Name Priority Date/Time Associated Diagnosis Comments TRANSGLUTAMINASE IGA ANTIBODY Routine 07/20/2010 4:15 PM ENGINEER TRANSGLUTAMINASE IGG ANTIBODY Routine 07/20/2010 4:15 PM ENGINEER IRON, TIBC, AND PERCENT SATURATION Routine 07/20/2010 4:15 PM ENGINEER Regional enteritis of unspecified site TRANSGLUTAMINASE AB IGG/IGA Routine 07/20/2010 4:15 PM ENGINEER Regional enteritis of unspecified site CBC WITH DIFFERENTIAL Routine 07/20/2010 4:15 PM ENGINEER Regional enteritis of unspecified site VITAMIN D 25 HYDROXY Routine 07/20/2010 4:15 PM ENGINEER Regional enteritis of unspecified site IGA Routine 07/20/2010 4:15 PM ENGINEER Regional enteritis of unspecified site FERRITIN Routine 07/20/2010 4:15 PM ENGINEER Regional enteritis of unspecified site VITAMIN B12 LEVEL Routine 07/20/2010 4:1 5 PM ENGINEER Regional enteritis of unspecified site COMPREHENSIVE METABOLIC PANEL Routine 07/20/2010 4:15 PM ENGINEER Regional enteritis of unspecified site documented in this encounter Results * TRANSGLUTAMINASE IGA ANTIBODY (07/20/2010 4:15 PM ENGINEER) TRANSGLUTAMINASE IGA AB <3 <5 U/mL [facility] Comment: Reference range: ? <5 U/mL ?? Negative ?5-8 U/mL ?? Equivocal ? >8 U/mL ?? Positive ? Lab test performed by: [employer] [id number] [place] [phone] RAH VIEIRA MD Blood specimen (specimen) 07/20/2010 4:15 PM ENGINEER 07/20/2010 4:38 PM ENGINEER Narrative [facility] - 07/22/2010 9:29 PM ENGINEER FAX THE RESULT TO [phone] Jaycob Waller MD CHEMISTRY ORDERABL ES Performing Organization Address [facility] de Phone Number [facility] CLIA# [id number] [address] [place] [address] * TRANSGLUTAMINASE IGG ANTIBODY (07/20/2010 4:15 PM ENGINEER) TRANSGLUTAMINASE IGG AB <3 <7 U/mL [facility] Comment: Reference range: ? <7 U/mL ?? Negative ?? 7-10 U/mL ?? Equivocal ?>10 U/mL ?? Positive ? Lab test performed by: [employer] [address] [place] [phone] RAH VIEIRA MD Blood specimen (specimen) 07/20/2010 4:15 PM ENGINEER 07/20/2010 4:38 PM ENGINEER Narrative [facility] - 07/23/2010 1:45 PM ENGINEER FAX THE RESULT TO [phone] Jaycob Waller MD CHEMISTRY ORDERABL ES Performing Organization Address [facility] de Phone Number [facility] CLIA# [id number] [address] [place] [address] * TRANSGLUTAMINASE AB IGG/IGA (07/20/2010 4:15 PM ENGINEER) COMMENT See additional orderables. [facility] Blood specimen (specimen) 07/20/2010 4:15 PM ENGINEER 07/20/2010 4:38 PM ENGINEER Narrative [facility] - 07/22/2010 9:29 PM ENGINEER FAX THE RESULT TO [phone] Jaycob Waller MD CHEMISTRY ORDERABL ES Performing Organization Address [facility] Co de Phone Number [facility] CLIA# [id number] [address] [place] [address] * IRON AND TIBC (07/20/2010 4:15 PM ENGINEER) IRON 82 45 - 160 ug/dL [facility] IRON % SATURATION 29 20 - 50 % [facility] TIBC 287 250 - 450 ug/dL [facility] TRANSFERRIN 226 200 - 360 mg/dL [facility] Blood specimen (specimen) 07/20/2010 4:15 PM ENGINEER 07/20/2010 4:38 PM ENGINEER Narrative [facility] - 07/20/2010 5:19 PM ENGINEER FAX THE RESULT TO [phone] Jaycob Waller MD CHEMISTRY ORDERABL ES Performing Organization Address [facility] Co de Phone Number [facility] CLIA# [id number] [address] [place] [address] * (ABNORMAL) VITAMIN D 25 HYDROXY (07/20/2010 4:15 PM ENGINEER) VITAMIN D, 25 OH, D3 20 ng/mL [facility] Comment: 25-OHD3 indicates both endogenous production and supplementation. 25-OHD2 is an indicator of exogenous sources such as diet or supplementation. Therapy is based on measurement of Total 25-OHD, with levels <20 ng/mL indicative of Vitamin D deficiency while levels between 20 ng/mL and 30 ng/mL suggest insufficiency. Optimal levels are >/=30 ng/mL. ? Lab test performed by: [employer] [id number] [place] [phone] JOY MATIAS MD,FCAP VITAMIN D, 25 OH, D2 <4 ng/mL [facility] VITAMIN D, 25 OH, TOTAL 20(L) 30 - 100 ng/mL [facility] Blood specimen (specimen) 07/20/2010 4:15 PM ENGINEER 07/20/2010 4:38 PM ENGINEER Narrative [facility] - 07/22/2010 2:41 PM ENGINEER FAX THE RESULT TO [phone] Jaycob Waller MD CHEMISTRY ORDERABL ES Performing Organization Address [facility] de Phone Number [facility] CLIA# [id number] [address] [place] [address] * VITAMIN B12 LEVEL (07/20/2010 4:15 PM ENGINEER) VITAMIN B12 448 211 - 946 pg/mL [facility] Comment: It has been reported that between 5 to 10% of patients with values between 200 and 400 pg/mL may experience neuropsychiatric and hematologic abnormalities due to occult B12 deficiency. ??Less than 1% of patients with values above 400 pg/mL will have symptoms. Blood specimen (specimen) 07/20/2010 4:15 PM ENGINEER 07/20/2010 4:38 PM ENGINEER Narrative [facility] - 07/20/2010 5:43 PM ENGINEER FAX THE RESULT TO [phone] Jaycob Waller MD CHEMISTRY ORDERABL ES Performing Organization Address [facility] Co de Phone Number [facility] CLIA# [id number] [address] [place] [address] * (ABNORMAL) IGA (07/20/2010 4:15 PM ENGINEER) IGA 515.4(H) 80.0 - 375.0 mg/dL [facility] Blood specimen (specimen) 07/20/2010 4:15 PM ENGINEER 07/20/2010 4:38 PM ENGINEER Narrative [facility] - 07/20/2010 5:25 PM ENGINEER FAX THE RESULT TO [phone] Jaycob Waller MD CHEMISTRY ORDERABL ES Performing Organization Address [facility] Co de Phone Number [facility] CLIA# [id number] [address] [place] [address] * FERRITIN (07/20/2010 4:15 PM ENGINEER) [facility] FERRITIN 85 30 - 400 ng/mL [facility] Blood specimen (specimen) 07/20/2010 4:15 PM ENGINEER 07/20/2010 4:38 PM ENGINEER Narrative [facility] - 07/20/2010 5:33 PM ENGINEER FAX THE RESULT TO [phone] Jaycob Waller MD CHEMISTRY ORDERABL ES Performing Organization Address [facility] Co de Phone Number [facility] CLIA# [id number] [address] [place] [address] * COMPREHENSIVE METABOLIC PANEL (07/20/2010 4:15 PM ENGINEER) [facility] SODIUM 139 135 - 145 mmol/L [facility] POTASSIUM 3.7 3.5 - 4.9 mmol/L [facility] CHLORIDE 101 96 - 108 mmol/L [facility] CO2 25 22 - 30 mmol/L [facility] CALCIUM 9.2 8.6 - 10.2 mg/dL [facility] BUN 11 6 - 20 mg/dL [facility] CREATININE 0.71 0.67 - 1.17 mg/dL [facility] GLUCOSE 91 65 - 99 mg/dL [facility] TOTAL PROTEIN 7.3 6.3 - 8.6 g/dL [facility] ALBUMIN 4.3 3.4 - 4.8 g/dL [facility] BILIRUBIN TOTAL 0.3 0.2 - 1.0 mg/dL [facility] ALKALINE PHOSPHATASE 65 40 - 129 U/L [facility] AST 22 12 - 38 U/L [facility] ALT 30 0 - 41 U/L [facility] GFR, >60 >=60 mL/min/1.7 sq meter [facility] GFR >60 >=60 mL/min/1.7 sq meter [facility] Comment: Modification of Diet in Renal Disease (MDRD) study formula. Estimated GFR rate interpretative information for both Americans and non- Americans is available on the [facility] Intranet at: [email or web address] Select: Lab Policies and Procedures Select: Reference Ranges - GFR Blood specimen (specimen) 07/20/2010 4:15 PM ENGINEER 07/20/2010 4:38 PM ENGINEER Narrative [facility] - 07/20/2010 5:19 PM ENGINEER FAX THE RESULT TO [phone] Jaycob Waller MD CHEMISTRY ORDERABL ES [facility] CLIA# [id number] [address] [facility] [place] [address] * CBC WITH DIFFERENTIAL (07/20/2010 4:15 PM ENGINEER) WBC 8.1 4.0 - 9.8 K/uL [facility] RBC 4.70 4.50 - 5.40 M/uL [facility] HEMOGLOBIN 14.7 13.6 - 16.5 g/dL [facility] HEMATOCRIT 44.1 40.0 - 48.0 % [facility] MCV 93.8 82.0 - 99.0 fL [facility] MCH 31.3 27.2 - 32.6 pg [facility] MCHC 33.3 31.5 - 35.5 % [facility] PLATELETS 215 140 - 350 K/uL [facility] MPV 11.2 9.3 - 12.4 fL [facility] RDW 12.5 11.5 - 14.5 % [facility] RDW-STDEV 42.1 37.1 - 48.7 fL [facility] NEUTROPHILS 63 45 - 70 % [facility] LYMPHOCYTES 27 16 - 45 % [facility] MONOCYTES 8 3 - 13 % [facility] EOSINOPHILS 1 0 - 7 % [facility] BASOPHILS 0 0 - 2 % [facility] NEUTROPHIL ABSOLUTE 5.12 1.90 - 7.00 K/uL [facility] LYMPHOCYTE ABSOLUTE 2.21 0.70 - 4.50 K/uL [facility] MONOCYTE ABSOLUTE 0.64 0.10 - 1.30 K/uL [facility] EOSINOPHIL ABSOLUTE 0.10 0.00 - 0.70 K/uL [facility] BASOPHILS ABSOLUTE 0.03 0.00 - 0.20 K/uL [facility] Blood specimen (specimen) 07/20/2010 4:15 PM ENGINEER 07/20/2010 4:39 PM ENGINEER Jaycob Waller MD HEMATOLOGY ORDERAB LES [facility] CLIA# [id number] [address] [address] documented in this encounter Visit Diagnoses Diagnosis Regional enteritis of unspecified site documented in this encounter Care Teams General Repair Mechanic Relationship Specialty [place] [address] [place] [address] PCP - General 02/10/05 10/30/12 documented as of this encounter
--- OUTSIDE RECORDS SUMMARY | 2024-07-09 05:37 | XMS_ITS | Encounter Summary ---
Author Organization [facility] Address [address] [place] [address] Care Team Providers Care Loading Dock Hand Name Role Phone Karol Tran MD Primary Care Provider [phone] Encounter Details Date Type Department Care Team (Late st Contact Info) Description 10/13/2010 Orders Only [facility] Admitting [address] [place] [address] Jaycob Waller MD [address] [facility] [address] [place] [address] Regional enteritis of unspecified site (Primary Dx) Social History Tobacco Use Types Packs/Day Years Used Date Smoking Tobacco: Never Assessed Sex and Gender Information Value Date Recorded Sex Assigned at Not on file Gender Identity Not on file Sexual Orientation Not on file documented as of this encounter Plan of Treatment Not on file documented as of this encounter Results * VITAMIN D 25 HYDROXY (10/13/2010 11:00 AM CDT) VITAMIN D, 25 OH, D3 32 ng/mL [facility] Comment: 25-OHD3 indicates both endogenous production and supplementation. 25-OHD2 is an indicator of exogenous sources such as diet or supplementation. Therapy is based on measurement of Total 25-OHD, with levels <20 ng/mL indicative of Vitamin D deficiency while levels between 20 ng/mL and 30 ng/mL suggest insufficiency. Optimal levels are >/=30 ng/mL. ? Lab test performed by: [place] [address] [place] [address] JOY MATIAS MD,FCAP VITAMIN D, 25 OH, D2 <4 ng/mL [facility] VITAMIN D, 25 OH, TOTAL 32 30 - 100 ng/mL [facility] Blood specimen (specimen) 10/13/2010 11:00 AM CDT 10/13/2010 11:18 AM CDT Jaycob Waller MD CHEMISTRY ORDERABL ES Performing Organization Address [facility] de Phone Number [facility] CLIA# [id number] [address] [facility] [place], [place] [address] * VITAMIN B12 LEVEL (10/13/2010 11:00 AM CDT) VITAMIN B12 483 211 - 946 pg/mL [facility] Comment: It has been reported that between 5 to 10% of patients with values between 200 and 400 pg/mL may experience neuropsychiatric and hematologic abnormalities due to occult B12 deficiency. ??Less than 1% of patients with values above 400 pg/mL will have symptoms. Blood specimen (specimen) 10/13/2010 11:00 AM CDT 10/13/2010 11:17 AM CDT Jaycob Waller MD CHEMISTRY ORDERABL ES Performing Organization Address [facility] Co de Phone Number [facility] CLIA# [id number] [address] [place] [address] * CBC WITH DIFFERENTIAL (10/13/2010 11:00 AM CDT) WBC 6.4 4.0 - 9.8 K/uL [facility] RBC 5.04 4.50 - 5.40 M/uL [facility] HEMOGLOBIN 15.6 13.6 - 16.5 g/dL [facility] HEMATOCRIT 47.0 40.0 - 48.0 % [facility] MCV 93.3 82.0 - 99.0 fL [facility] MCH 31.0 27.2 - 32.6 pg [facility] MCHC 33.2 31.5 - 35.5 % [facility] PLATELETS 226 140 - 350 K/uL [facility] MPV 10.3 9.3 - 12.4 fL [facility] RDW 12.7 11.5 - 14.5 % [facility] RDW-STDEV 42.7 37.1 - 48.7 fL [facility] NEUTROPHILS 62 45 - 70 % [facility] LYMPHOCYTES 29 16 - 45 % [facility] MONOCYTES 8 3 - 13 % [facility] EOSINOPHILS 1 0 - 7 % [facility] BASOPHILS 1 0 - 2 % [facility] NEUTROPHIL ABSOLUTE 3.98 1.90 - 7.00 K/uL [facility] LYMPHOCYTE ABSOLUTE 1.89 0.70 - 4.50 K/uL [facility] MONOCYTE ABSOLUTE 0.48 0.10 - 1.30 K/uL [facility] EOSINOPHIL ABSOLUTE 0.06 0.00 - 0.70 K/uL [facility] BASOPHILS ABSOLUTE 0.03 0.00 - 0.20 K/uL [facility] Blood specimen (specimen) 10/13/2010 11:00 AM CDT 10/13/2010 11:17 AM CDT Jaycob Waller MD HEMATOLOGY ORDERAB LES [facility] CLIA# [id number] [address] [place] [place] [address] * COMPREHENSIVE METABOLIC PANEL (10/13/2010 11:00 AM CDT) SODIUM 138 135 - 145 mmol/L [facility] POTASSIUM 4.1 3.5 - 4.9 mmol/L [facility] CHLORIDE 100 96 - 108 mmol/L [facility] CO2 30 22 - 30 mmol/L [facility] CALCIUM 9.6 8.6 - 10.2 mg/dL [facility] BUN 9 6 - 20 mg/dL [facility] CREATININE 0.75 0.67 - 1.17 mg/dL [facility] GLUCOSE 90 65 - 99 mg/dL [facility] TOTAL PROTEIN 7.9 6.3 - 8.6 g/dL [facility] ALBUMIN 4.6 3.4 - 4.8 g/dL [facility] BILIRUBIN TOTAL 0.6 0.2 - 1.0 mg/dL [facility] ALKALINE PHOSPHATASE 94 40 - 129 U/L [facility] AST 29 12 - 38 U/L [facility] ALT 41 0 - 41 U/L [facility] GFR, >60 >=60 mL/min/1.7 sq meter [facility] GFR >60 >=60 mL/min/1.7 sq meter [facility] Comment: Modification of Diet in Renal Disease (MDRD) study formula. Estimated GFR rate interpretative information for both Americans and non- Americans is available on the [facility] Intranet at: [email or web address] Select: Lab Policies and Procedures Select: Reference Ranges - GFR Blood specimen (specimen) 10/13/2010 11:00 AM CDT 10/13/2010 11:17 AM CDT Jaycob Waller MD CHEMISTRY ORDERABL ES [facility] CLIA# [id number] [address] [place] [address] documented in this encounter Visit Diagnoses Diagnosis Regional enteritis of unspecified site Regional enteritis of unspecified site- Primary documented in this encounter Care Teams Loading Dock Hand Relationship Specialty [place] [address] [place] [address] PCP - General 02/10/05 10/30/12 documented as of this encounter
--- OUTSIDE RECORDS SUMMARY | 2024-07-09 05:37 | XMS_ITS | Encounter Summary ---
Author Organization [facility] Address [address] [place] [address] Care Team Providers Care Machine Operator Packaging Name Role Phone Karol Tran MD Primary Care Provider [phone] Reason for Visit * Reason Onset Date Comments Medication Refill 12/02/2009 Encounter Details Date Type Department Care Team (Late st Contact Info) Description 12/02/2009 Refill [facility] [address] [facility] [address] [address] [place] [address] [place] [address] Crohn's Disease (Primary Dx) Social History Tobacco Use Types Packs/Day Years Used Date Smoking Tobacco: Never Assessed Sex and Gender Information Value Date Recorded Sex Assigned at Not on file Gender Identity Not on file Sexual Orientation Not on file documented as of this encounter Miscellaneous Notes * Telephone Encounter - Dianne Dodson - 12/02/2009 10:22 AM CDT NIC CALLS TODAY WITH C/O STOMACH CRAMPS AND ABD PAIN ON APRISO, WHAT TO DO? PER DR TRAN, STOP THE APRISO AND RESTART THE FLAGYL. HE IS AWARE OF CHANGE AND WILL COMPONENT DESIGN ENGINEER A NEW RX. documented in this encounter Plan of Treatment Not on file documented as of this encounter Visit Diagnoses Diagnosis Crohn's disease- Primary Regional enteritis of unspecified site documented in this encounter Care Teams Machine Operator Packaging Relationship Specialty [place] [address] [place] [address] PCP - General 02/10/05 10/30/12 documented as of this encounter
--- OUTSIDE RECORDS SUMMARY | 2024-07-09 05:37 | XMS_ITS | Encounter Summary ---
Author Organization [facility] Address [address] [place] [address] Care Team Providers Care Crusher Loader Equipment Operator Name Role Phone Karol Tran MD Primary Care Provider [phone] Encounter Details Date Type Department Care Team (Late st Contact Info) Description 03/21/2011 Abstract [facility] [address] [facility] [address] [facility] [place] [address] Jamie Crowder MD [address] [facility] [address] [place] [address] Social History Tobacco Use Types Packs/Day Years Used Date Smoking Tobacco: Never Assessed Sex and Gender Information Value Date Recorded Sex Assigned at Not on file Gender Identity Not on file Sexual Orientation Not on file documented as of this encounter Plan of Treatment Not on file documented as of this encounter Visit Diagnoses Not on filedocumented in this encounter Care Teams Crusher Loader Equipment Operator Relationship Specialty [place] [address] [place] [address] PCP - General 02/10/05 10/30/12 documented as of this encounter
--- OUTSIDE RECORDS SUMMARY | 2024-07-09 05:37 | XMS_ITS | Clinical Summary ---
Author Organization [facility] Address [address] [place] [address] Phone Care Team Providers Care Payment Manager Name Role Phone Not Found, Stl Primary Care Provider Unavailabl e Allergies No known active allergies Medications Medication Sig Dispensed Refills Start Date End Date Status adalimumab (HUMIRA) 40 mg/0.8 mL subCUT KitIndications:Croh n's disease Inject 0.8 mL by subcutaneous injection every 2 weeks. 6 Kit 3 11/23/2009 Active metroNIDAZOLE ER (FLAGYL ER) 750 mg Oral TbSRIndications:Furniture And Bedding Inspector hn's disease Take 1 Tab by mouth daily at bedtime. 90 Tab 3 12/02/2009 Active Active Problems Problem Noted Date Diagnosed Date Crohn's disease 01/06/2008 Family History Medical History Relation Name Comments Healthy Brother bipolar disorde r Healthy Father Healthy Mother bipolar disorde r Healthy Sister Relation Name Status Comments Brother Father Mother Sister Social History Tobacco Use Types Packs/Day [...] Mass Index 23.57 11/04/2012 9:44 AM CDT Plan of Treatment Health Maintenance Due Date Last Done Comments DTAP/TDAP/TD VACCINES (1 - Tdap) 2008 HEPATITIS B VACCINES (1 of 3 - 19+ 3-dose series) 2008 INFLUENZA VACCINE (#1) 2024 HPV VACCINES Aged Out No longer eligi ble based on patient's age to complete this topic PNEUMOCOCCAL VACCINE 0-64 YEARS Aged Out No longer eligible based on patient's age to complete this topic Advance Directives For more information, please contact: [phone] * Full Code (Latest Code Status on File) Date Activated Date Inactivated Comments 11/04/2012 9:37 AM 11/04/2012 2:19 PM Care Teams Payment Manager Relationship Specialty Start Date End Date Not Found, Stl NO ADDRESS ON FILE PCP - General 10/31/12
--- OUTSIDE RECORDS SUMMARY | 2024-07-09 05:38 | XMS_ITS | Encounter Summary ---
Author Organization [facility] Address [address] [place] [address] Care Team Providers Care Chicken Cleaner Name Role Phone Not Found, Stl Primary Care Provider Unavailabl e Encounter Details Date Type Department Care Team (Late st Contact Info) Description 07/09/2007 [facility] [address] [place] [id number] Short Stature Social History Tobacco Use Types Packs/Day Years Used Date Smoking Tobacco: Never Assessed Sex and Gender Information Value Date Recorded Sex Assigned at Not on file Gender Identity Not on file Sexual Orientation Not on file documented as of this encounter Plan of Treatment Not on file documented as of this encounter Visit Diagnoses Diagnosis Short stature documented in this encounter Care Teams Chicken Cleaner Relationship Specialty Start Date End Date Not Found, Stl NO ADDRESS ON FILE PCP - General 10/31/12 documented as of this encounter
--- OUTSIDE RECORDS SUMMARY | 2024-07-09 05:38 | XMS_ITS | Encounter Summary ---
Author Organization [facility] Address [address] [place] [address] Care Team Providers Care Advertising Sales Associate Name Role Phone Not Found, Stl Primary Care Provider Unavailabl e Encounter Details Date Type Department Care Team (Latest Contact Info) Description 06/16/2005 Outpatient Historical [facility] VU Tran, [place] [address] [place] [address] REG ENTERIT SM/LG INTEST (Primary Dx) Social History Tobacco Use Types [...] Associated Diagnosis Comments CBC WITH DIFFERENTIAL Routine 06/16/2005 10:11 AM ALUMINUM FABRICATION SUPERVISOR CBC WITH DIFFERENTIAL Routine 06/16/2005 10:11 AM ALUMINUM FABRICATION SUPERVISOR documented in this encounter Results * (ABNORMAL) CBC WITH DIFFERENTIAL (06/16/2005 10:11 AM ALUMINUM FABRICATION SUPERVISOR) NEUTROPHILS 72 36 - 74 % INTERFAC E SYSTEM LYMPHOCYTES 19 18 - 53 % INTERFAC E SYSTEM MONOCYTES 9 2 - 13 % INTERFACE SYSTEM EOSINOPHILS 0(L) 2 - 12 % INTERFAC E SYSTEM BASOPHILS 0 0 - 3 % INTERFACE SYSTEM NEUTROPHIL ABSOLUTE 6.69 K/uL INTERFACE SYSTEM LYMPHOCYTE ABSOLUTE 1.77 K/uL INTERFACE SYSTEM MONOCYTE ABSOLUTE 0.79 K/uL INTERFACE SYSTEM EOSINOPHIL ABSOLUTE 0.04 K/uL INTERFACE SYSTEM BASOPHILS ABSOLUTE 0.01 K/uL INTERFACE SYSTEM 06/16/2005 10:1 1 AM ALUMINUM FABRICATION SUPERVISOR Karol Tran MD HEMATOLOGY ORDERABLE S INTERFACE SYSTEM Refer to clinic/hospital department * (ABNORMAL) CBC WITH DIFFERENTIAL (06/16/2005 10:11 AM ALUMINUM FABRICATION SUPERVISOR) WBC 9.3 4.0 - 9.8 K/uL INTERFACE SYSTEM RBC 3.88(L) 4.50 - 5.40 M/uL INTERFACE SYSTEM HEMOGLOBIN 10.4(L) 13.6 - 16.5 g/dL INTERFACE SYSTEM HEMATOCRIT 33.0(L) 40.0 - 48.0 % INTERFACE SYSTEM MCV 85.1 82.0 - 99.0 fL INTERFACE SYSTEM MCH 26.8(L) 27.2 - 32.6 pg INTERFACE SYSTEM MCHC 31.5 31.5 - 35.5 % INTERFACE SYSTEM RDW 15.5(H) 11.5 - 14.5 % INTERFACE SYSTEM RDW-STDEV 47.8 37.1 - 48.7 fL INTERFACE SYSTEM PLATELETS 374(H) 140 - 350 K/uL INTERFACE SYSTEM MPV 8.4(L) 9.3 - 12.4 fL INTERFACE SYSTEM 06/16/2005 10:1 1 AM ALUMINUM FABRICATION SUPERVISOR Karol Tran MD HEMATOLOGY ORDERABLE S INTERFACE SYSTEM Refer to clinic/hospital department documented in this encounter Visit Diagnoses Diagnosis Regional enteritis of small intestine with large intestine- Primary documented in this encounter Care Teams Advertising Sales Associate Relationship Specialty Start Date End Date Not Found, Stl NO ADDRESS ON FILE PCP - General 10/31/12 documented as of this encounter
--- OUTSIDE RECORDS SUMMARY | 2024-07-09 05:38 | XMS_ITS | Encounter Summary ---
Author Organization [facility] Address [address] [place] [address] Care Team Providers Care Integrated Marketing Specialist Name Role Phone Not Found, Stl Primary Care Provider Unavailabl e Encounter Details Date Type Department Care Team (Late st Contact Info) Description 05/01/2008 Outpatient Historical HIS [facility] Raghavendra Rhodes MD [address] [address] Short Stature Social History Tobacco Use Types Packs/Day Years Used Date Smoking Tobacco: Never Assessed Sex and Gender Information Value Date Recorded Sex Assigned at Not on file Gender Identity Not on file Sexual Orientation Not on file documented as of this encounter Plan of Treatment Not on file documented as of this encounter Procedures Procedure Name Priority Date/Time Associated Diagnosis Comments XR BONE AGE HAND AND WRIST Routine 05/01/2008 4:33 PM CDT documented in this encounter Results * XR BONE AGE HAND AND WRIST (05/01/2008 4:33 PM CDT) Anatomical Region Laterality Modality Wrist / Hand Other 05/01/2008 4:33 PM CDT Narrative 05/01/2008 4:39 PM CDT ? [facility] ? [address] ?. [place] ??[id number] ?Admit Date: 05/01/2008 ? NIC TERAN A ?Sex: M ?Admit Prov: RAGHAVENDRA LÓPEZ ? Date: 1990 ?Primary Care Prov: NILO MELISSA ?CMRN: [id number] ?Room: ILB-A ?SSN: ? IMAGING SERVICES ?Ordering Prov: N/A ? Accession Number: [id number] ?Interpretation ? Examination: Bone age. ? Clinical History: Short stature. ? Findings: The patient's chronological age is 17 years and 5 months.. ? Utilizing the method of Greulich & Salazar, left hand radiograph most ? closely matches 15 year, 6 month male standard. Standard deviation is 15.4 ? months. ? Impression: Low normal skeletal maturation. ??According to standard tables, ? the patient has achieved 97.6 % of estimated mature height. ? . ? Dictated by: ??Toby AGUSTIN ? 05/01/2008 16:36 ? Electronically signed by: ??Toby AGUSTIN ? 05/01/2008 16:38 Procedure Note Fredrick Agustin MD - 05/01/2008 [facility] [address] [facility] [address] [place], [place] [address] Admit Date: 05/01/2008 INC TERAN Sex: M Admit Prov: RAGHAVENDRA LÓPEZ Date: 1990 Primary Care Prov: NILO MELISSA Thanh CMRN: [id number] Room: [facility] SSN: IMAGING SERVICES Ordering Prov: N/A Interpretation Examination: Bone age. Clinical History: Short stature. Findings: The patient's chronological age is 17 years and 5months.. Utilizing the method of Greulich & Salazar, left hand radiograph most closely matches 15 year, 6 month male standard. Standard deviation is15.4 months. Impression: Low normal skeletal maturation. According to standardtables, the patient has achieved 97.6 % of estimated mature height. . Dictated by: Toby AGUSTIN 05/01/2008 16:36 Electronically signed by: Toby AGUSTIN 05/01/2008 16:38 Raghavendra López MD DIAGNOSTIC IMAGING O RDERABLES documented in this encounter Visit Diagnoses Diagnosis Short stature documented in this encounter Care Teams Integrated Marketing Specialist Relationship Specialty Start Date End Date Not Found, Stl NO ADDRESS ON FILE PCP - General 10/31/12 documented as of this encounter
--- OUTSIDE RECORDS SUMMARY | 2024-07-09 05:38 | XMS_ITS | Encounter Summary ---
Author Organization [facility] Address [address] [place] [address] Care Team Providers Care Radiologic Technician Name Role Phone Not Found, Stl Primary Care Provider Unavailabl e Encounter Details Date Type Department Care Team (Late st Contact Info) Description 02/19/2005 Outpatient Historical [facility] [address] [place] [id number] Abhijeet Ochoa MD Social History Tobacco Use Types Packs/Day Years Used Date Smoking Tobacco: Never Assessed Sex and Gender Information Value Date Recorded Sex Assigned at Not on file Gender Identity Not on file Sexual Orientation Not on file documented as of this encounter Plan of Treatment Not on file documented as of this encounter Visit Diagnoses Not on filedocumented in this encounter Care Teams Radiologic Technician Relationship Specialty Start Date End Date Not Found, Stl NO ADDRESS ON FILE PCP - General 10/31/12 documented as of this encounter
--- OUTSIDE RECORDS SUMMARY | 2024-07-09 05:38 | XMS_ITS | Encounter Summary ---
Author Organization [facility] Address [address] [place] [address] Care Team Providers Care Assistant Farm Operations Manager Name Role Phone Not Found, Stl Primary Care Provider Unavailabl e Encounter Details Date Type Department Care Team (Latest Contact Info) Description 03/28/2008 Outpatient Historical [facility] Jamie Crowder MD [address] [place] [address] Regional Enteritis of Unspecified Site Social History Tobacco Use Types Packs/Day Years Used Date Smoking Tobacco: Never Assessed Sex and Gender Information Value Date Recorded Sex Assigned at Not on file Gender Identity Not on file Sexual Orientation Not on file documented as of this encounter Plan of Treatment Not on file documented as of this encounter Visit Diagnoses Diagnosis Regional enteritis of unspecified site documented in this encounter Care Teams Assistant Farm Operations Manager Relationship Specialty Start Date End Date Not Found, Stl NO ADDRESS ON FILE PCP - General 10/31/12 documented as of this encounter
--- OUTSIDE RECORDS SUMMARY | 2024-07-09 05:38 | XMS_ITS | Encounter Summary ---
Author Organization [facility] Address [address] [place] [address] Care Team Providers Care Patient Financial Specialist Name Role Phone Karol Tran MD Primary Care Provider [phone] Reason for Visit * Reason Comments Follow Up crohn's disease Encounter Details Date Type Department Care Team (Late st Contact Info) Description 11/19/2008 9:30 AM CDT Office Visit [facility] [address] [address] [place] [address] [place] [address] Crohn's Disease (Primary Dx) Social [...] - Inhaled Oxygen Concentration - - Weight 70.6 kg (155 lb 10.3 oz) 11/19/2008 9:58 AM CDT Height - - Body Mass Index - - documented in this encounter Progress Notes * Karol Tran MD - 11/24/2008 8:34 AM CDT Nic Teran is a 18 y.o. male presents for follow-up evaluation. The health navigator is Karol Tran MD Chief Complaint Patient presents with ??? Follow Up crohn's disease Interim Illness: The patient returns today for a routine follow-up. Illnesses since our last visit include:none. He continues to experience symptoms which include stool frequency: 1 stool per day with no blood or pain and no other GI symptoms. Current outpatient prescriptions Medication Sig Dispense Refill ??? metronidazole ER (FLAGYL ER) 750 mg Oral TbSR Take 1 Tab by mouth daily at bedtime. 90 Tab 3 ??? adalimumab (HUMIRA) 40 mg/0.8 mL subCUT Kit Inject 0.8 mL by subcutaneous injection every 7 days. 6 Kit 3 ??? AZATHIOPRINE 50 mg Oral Tab Take 50 mg by mouth daily. ??? FLAGYL ER 750 mg Oral TbSR Take 750 mg by mouth daily. ??? HUMATROPE 12 (36 unit) mg Injection Crtg 12 mg by Injection route daily. Review of Systems: Constitutional: denies fevers, chills, sweats, fatigue, malaise, anorexia, weight loss Respiratory: denies cough, dyspnea, hemoptysis, stridor, wheeze, chest pain Cardiovascular: denies chest pain or discomfort, exertional chest pressure/discomfort, fatigue, pounding heart/chest, nausea, syncope, shortness of breath Gastrointestinal: denies abdominal pain, change in bowel habits, constipation, diarrhea, dyspepsia,dsyphagia, hematochezia, reflux symptoms, vomiting and see HPI Physical Examination: GENERAL ASSESSMENT: active, alert, no acute distress, well hydrated, well nourished CHEST: clear to auscultation, no wheezes, rales, or rhonchi, no tachypnea, retractions, or cyanosis HEART: Regular rate and rhythm, normal S1/S2, no murmurs, normal pulses and capillary fill ABDOMEN: Normal bowel sounds, soft, nondistended, no mass, no organomegaly. ASSESSMENT: Encounter Diagnosis Name Primary? Crohn's Disease Yes Well controlled on the current medications. We will continue both the Humira and the Flagyl for thenext 6 months. PLAN: Orders Placed This Encounter ??? Metronidazole sr 750 mg tab ??? Adalimumab 40 mg/0.8 ml sub-q kit Patient Instructed to follow-up in 6 months documented in this encounter Plan of Treatment Not on file documented as of this encounter Visit Diagnoses Diagnosis Crohn's disease- Primary Regional enteritis of unspecified site documented in this encounter Care Teams Patient Financial Specialist Relationship Specialty Start [place] [address] [place] [address] PCP - General 02/10/05 10/30/12 documented as of this encounter
--- OUTSIDE RECORDS SUMMARY | 2024-07-09 05:38 | XMS_ITS | Encounter Summary ---
Author Organization [facility] Address [address] [place] [address] Care Team Providers Care Stonework Tracer Name Role Phone Karol Tran MD Primary Care Provider [phone] Reason for Visit * Reason Comments IV Med Remicade Encounter Details Date Type Department Care Team (Late st Contact Info) Description 01/04/2008 8:30 AM CDT Office Visit [facility] Cancer and Hematology [address] [place] [phone] Franck Collazo MD NO ADDRESS ON FILE Crohn's Disease (Primary Dx) Social History Tobacco Use Types Packs/Day Years Used Date Smoking Tobacco: Never Assessed Sex and Gender Information Value Date Recorded Sex Assigned at Not on file Gender Identity Not on file Sexual Orientation Not on file documented as of this encounter Last Filed Vital Signs Vital Sign Reading Time Taken Comments Blood Pressure 125/72 01/04/2008 10:44 AM CDT Pulse 70 01/04/2008 10:44 AM CDT Temperature 36.6 ??C (97.9 ??F) 01/04/2008 10:44 AM C DT Respiratory Rate 18 01/04/2008 10:44 AM CDT Oxygen Saturation - - Inhaled Oxygen Concentration - - Weight 63.5 kg (140 lb) 01/04/2008 8:35 AM CDT Height - - Body Mass Index - - documented in this encounter Progress Notes * Franck Collazo MD - 01/06/2008 12:20 PM CDT Treatment tolerated without difficulty or complication. Franck Collazo MD * Haley Barcenas 01/04/2008 9:56 AM CDT 09:50 Tolerating Remicade infusion well, no s/sx of a reaction noted. No complaints of a headache or stomach ache. Haley Barcenas RN 10:00 Tolerating Remicade infusion well, rate increased to 250ml/hr. Haley Barcenas RN 10:45 Remicade infusion complete. Pt tolerated well with no s/sx of a reaction noted. PIV dc'd without difficulty, pt home with dad. Haley Barcenas RN * Marcella Bess - 01/04/2008 8:55 AM CDT Meds: Remicade [id number] exp 09/09 0830 Here with father for Remicade infusion. Reports feeling well with normal appetite & activity levels. PIV placed in left AC. Line flushes well with good blood return, Remicade 275 mg in 250 ml NS started at 10 ml per hr. Paola Bess RN/PNP 0845 Tolerating well Rate increased to 20 ml per hr. Paola Bess RN/PNP 0900 Tolerating well. Rate increased to 40 ml per hr. Paola Bess RN/PNP documented in this encounter Plan of Treatment Not on file documented as of this encounter Visit Diagnoses Diagnosis Crohn's disease- Primary Regional enteritis of unspecified site documented in this encounter Care Teams Stonework Tracer Relationship Specialty [place] [address] [address] PCP - General 02/10/05 10/30/12 documented as of this encounter
--- OUTSIDE RECORDS SUMMARY | 2024-07-09 05:38 | XMS_ITS | Encounter Summary ---
Author Organization [facility] Address [address] [place] [address] Care Team Providers Care Thermite Welder Name Role Phone Karol Tran MD Primary Care Provider [phone] Reason for Visit * Reason Comments IV Med Encounter Details Date Type Department Care Team (Late st Contact Info) Description 03/28/2008 8:00 AM CDT Office Visit [facility] [address] [place] [address] Jamie Crowder MD [address] [facility] [address] [place] [address] Crohn's Disease (Primary Dx) Social History Tobacco Use Types Packs/Day Years Used Date Smoking Tobacco: Never Assessed Sex and Gender Information Value Date Recorded Sex Assigned at Not on file Gender Identity Not on file Sexual Orientation Not on file documented as of this encounter Last Filed Vital Signs Vital Sign Reading Time Taken Comments Blood Pressure 124/74 03/28/2008 8:29 AM CDT Pulse 91 03/28/2008 8:29 AM CDT Temperature 36.4 ??C (97.5 ??F) 03/28/2008 8:29 AM CD T Respiratory Rate 20 03/28/2008 8:29 AM CDT Oxygen Saturation - - Inhaled Oxygen Concentration - - Weight 65.8 kg (145 lb) 03/28/2008 8:29 AM CDT Height - - Body Mass Index - - documented in this encounter Progress Notes * Jamie Crowder MD - 03/30/2008 8:09 AM CDT Tolerated well, no complications. * Marcella Bess - 03/28/2008 8:38 AM CDT Remicade [id number] exp 11/09 0740 Here with father for Remicade infusion. Reports feeling well with normal appetite & activity levels. PIV placed on left antecubital. Line flushes well with good blood return. Started KVO Normal Saline while awaiting pharmacy delivery. Paola Bess RN/PNP 0845 Remicade started at 10 ml per hr. Paola Bess RN/PNP 0900 Tolerating well. Rate increased to 20 ml per hr. Paola Bess RN/PNP 0915 Tolerating well . Rate increased to 40 ml per hr. Paola Bess RN/PNP 0930 Tolerating well. Rate increased to 80 ml per hr. Paola Bess RN/PNP 0945 Tolerating well. Rate increased to 150 ml per hr. Paola Bess RN/PNP 1015 Tolerating well Rate increased to 250 ml per hr. Paola Bess RN/PNP 1035 Infusion complete without complications. PIV removed. Home with father. Paola Bess RN/PNP documented in this encounter Plan of Treatment Not on file documented as of this encounter Visit Diagnoses Diagnosis Crohn's disease- Primary Regional enteritis of unspecified site documented in this encounter Care Teams Thermite Welder Relationship Specialty [place] [address] [place] [phone] PCP - General 02/10/05 10/30/12 documented as of this encounter
--- OUTSIDE RECORDS SUMMARY | 2024-07-09 05:38 | XMS_ITS | Encounter Summary ---
Author Organization [facility] Address [address] [place] [address] Care Team Providers Care Tree Feller Name Role Phone Not Found, Stl Primary Care Provider Unavailabl e Encounter Details Date Type Department Care Team (Latest Contact Info) Description 09/04/2006 [facility]patient [facility] [address] [place] [address] Pain in Joint, Pelvic Region and Thigh (Primary Dx) Social History Tobacco Use Types Packs/Day Years Used Date Smoking Tobacco: Never Assessed Sex and Gender Information Value Date Recorded Sex Assigned at Not on file Gender Identity Not on file Sexual Orientation Not on file documented as of this encounter Plan of Treatment Not on file documented as of this encounter Visit Diagnoses Diagnosis Pain in joint, pelvic region and thigh- Primary documented in this encounter Care Teams Tree Feller Relationship Specialty Start Date End Date Not Found, Stl NO ADDRESS ON FILE PCP - General 10/31/12 documented as of this encounter
--- OUTSIDE RECORDS SUMMARY | 2024-07-09 05:38 | XMS_ITS | Encounter Summary ---
Author Organization [employer] Address [address] [place] [address] Care Team Providers Care Outsole Cutter Machine Name Role Phone Not Found, Stl Primary Care Provider Unavailabl e Encounter Details Date Type Department Care Team (Latest Contact Info) Description 02/16/2005 Inpatient Historical HIS [place] [address] [place] [phone] REG ENTERITIS, LG INTEST (Primary Dx) Social History Tobacco Use Types Packs/Day Years Used Date Smoking Tobacco: Never Assessed Sex and Gender Information Value Date Recorded Sex Assigned at Not on file Gender Identity Not on file Sexual Orientation Not on file documented as of this encounter Plan of Treatment Not on file documented as of this encounter Procedures Procedure Name Priority Date/Time Associated Diagnosis Comments SOMATOMEDIN C Routine 02/22/2005 5:23 AM CDT IRON, TIBC, AND PERCENT SATURATION Routine 02/22/2005 5:23 AM CDT CBC WITH DIFFERENTIAL Routine 02/22/2005 5:23 AM CDT CBC WITH DIFFERENTIAL Routine 02/22/2005 5:23 AM CDT CBC WITH DIFFERENTIAL Routine 02/22/2005 5:23 AM CDT SEDIMENTATION RATE Routine 02/22/2005 5: 23 AM CDT RETICULOCYTES Routine 02/22/2005 5:23 AM CDT C-REACTIVE PROTEIN Routine 02/22/2005 5: 23 AM CDT TRIGLYCERIDE Routine 02/22/2005 5:23 AM CDT TSH Routine 02/22/2005 5:23 AM CDT T4 FREE Routine 02/22/2005 5:23 AM CDT COMPREHENSIVE METABOLIC PANEL Routine 02/22/2005 5:23 AM CDT CBC WITH DIFFERENTIAL Routine 02/19/2005 5:40 AM CDT CBC WITH DIFFERENTIAL Routine 02/19/2005 5:40 AM CDT CBC WITH DIFFERENTIAL Routine 02/19/2005 5:40 AM CDT TRIGLYCERIDE Routine 02/19/2005 5:40 AM CDT COMPREHENSIVE METABOLIC PANEL Routine 02/19/2005 5:40 AM CDT TRIGLYCERIDE Routine 02/16/2005 12:09 PM CDT COMPREHENSIVE METABOLIC PANEL Routine 02/16/2005 12:09 PM CDT documented in this encounter Results * (ABNORMAL) CBC WITH DIFFERENTIAL (02/22/2005 5:23 AM CDT) NEUTROPHIL ABSOLUTE 28.64 K/uL INTERFACE SYSTEM LYMPHOCYTE ABSOLUTE 1.36 K/uL INTERFACE SYSTEM MONOCYTE ABSOLUTE 2.05 K/uL IN TERFACE SYSTEM EOSINOPHIL ABSOLUTE 0.00 K/uL INTERFACE SYSTEM BASOPHILS ABSOLUTE 0.00 K/uL INTERFACE SYSTEM NEUTROPHILS, SEG 76(H) 36 - 74 % INT ERFACE SYSTEM BANDS 8(H) 0 - 4 % INTERFACE SYSTEM LYMPHOCYTES 4(L) 18 - 53 % INTERFAC E SYSTEM MONOCYTES 6 2 - 13 % INTERFACE SYSTEM EOSINOPHILS 0(L) 2 - 12 % INTERFAC E SYSTEM BASOPHILS 0 0 - 3 % INTERFACE SYSTEM METAMYELOCYTE 6(H) <=0 % INTERF EMELIA SYSTEM PLATELET EST. Slt. Increased(A) Normal INTERFACE SYSTEM ANISOCYTOSIS Slight INTERFA CE SYSTEM POIKILOCYTES Moderate INTERFA CE SYSTEM MICROCYTES Moderate INTERFACE SYSTEM POLYCHROMASIA Slight INTERF EMELIA SYSTEM HYPOCHROMIA Slight INTERFAC E SYSTEM OVALOCYTES Slight INTERFACE SYSTEM REVIEWED ON SMEAR WBC & Plt Reviewed INTERFACE SYSTEM 02/22/2005 5:23 AM CDT Karol Tran MD HEMATOLOGY ORDERABLE S Performing Organization Address [facility] Phone Number INTERFACE SYSTEM Refer to clinic/hospital department * CBC WITH DIFFERENTIAL (02/22/2005 5:23 AM CDT) NRBC 0 <=0 /100 WBC INTERFACE SYSTEM 02/22/2005 5:23 AM CDT Karol Tran MD HEMATOLOGY ORDERABLE S Performing Organization Address [facility] Phone Number INTERFACE SYSTEM Refer to clinic/hospital department * (ABNORMAL) CBC WITH DIFFERENTIAL (02/22/2005 5:23 AM CDT) WBC 34.1(H) 4.0 - 9.8 K/uL INTERFACE SYSTEM RBC 4.79 4.50 - 5.40 M/uL INTERFACE SYSTEM HEMOGLOBIN 8.5(L) 13.6 - 16.5 g/dL INTERFACE SYSTEM HEMATOCRIT 32.2(L) 40.0 - 48.0 % INTERFACE SYSTEM MCV 67.2(L) 82.0 - 99.0 fL INTERFACE SYSTEM MCH 17.7(L) 27.2 - 32.6 pg INTERFACE SYSTEM MCHC 26.4(L) 31.5 - 35.5 % INTERFACE SYSTEM Comment:Persistent abnormal result RDW 17.6(H) 11.5 - 14.5 % INTERFACE SYSTEM RDW-STDEV 41.7 37.1 - 48.7 fL INTERFACE SYSTEM PLATELETS 523(H) 140 - 350 K/uL INTERFACE SYSTEM MPV 8.9(L) 9.3 - 12.4 fL INTERFACE SYSTEM 02/22/2005 5:23 AM CDT Karol Tran MD HEMATOLOGY ORDERABLE S Performing Organization Address [facility] de Phone Number INTERFACE SYSTEM Refer to clinic/hospital department * (ABNORMAL) SOMATOMEDIN C (02/22/2005 5:23 AM CDT) SOMATOMEDIN C 163(L) ng/mL INTERF EMELIA SYSTEM Comment: Reference Range: ?[phone] Pediatric Reference Ranges for IGF-I (ng/mL): ? AGE ? MALE ?FEMALE 2 Mo - 5 Years ?17-248 ? 17- 248 ?? 6 - 8 Years ?88-474 ? 88- 474 ?? 9- 11 Years ? 110-565 ?117- 771 ??12 -15 Years ? 202-957 ?261-1096 ??16 -24 Years ? 182-780 ?182- 780 ?By Jeffrey Stage ?Males ? Females ??Stage ?(ng/mL) ?(ng/mL) ??----- ?------- ?------- ?I ?109 - 485 ?128 - 470 ?II ? 174 - 512 ?186 - 422 ?III ?230 - 818 ?292 - 883 ?IV ? 396 - 776 ?394 - 920 ?V ?402 - 839 ?308 - 1138 ? Lab test performed by: [facility] [id number] [place] [address] Lindsey MOSLEY MD 02/22/2005 5:23 AM CDT Karol Tran MD CHEMISTRY ORDERABLES Performing Organization Address [facility] Phone Number INTERFACE SYSTEM Refer to clinic/hospital department * TSH (02/22/2005 5:23 AM CDT) TSH 1.45 0.27 - 4.20 uU/mL INTERFACE SYSTEM 02/22/2005 5:23 AM CDT Karol Tran MD CHEMISTRY ORDERABLES Performing Organization Address [facility] Phone Number INTERFACE SYSTEM Refer to clinic/hospital department * T4 FREE (02/22/2005 5:23 AM CDT) T4 FREE 1.2 0.9 - 1.7 ng/dL INTERFACE SYSTEM 02/22/2005 5:23 AM CDT Karol Tran MD CHEMISTRY ORDERABLES Performing Organization Address [facility] Phone Number INTERFACE SYSTEM Refer to clinic/hospital department * (ABNORMAL) IRON AND TIBC (02/22/2005 5:23 AM CDT) IRON 168(H) 45 - 160 ug/dL INTERFACE SYSTEM IRON % SATURATION 62(H) 20 - 50 % INTERFACE SYSTEM TIBC 272 250 - 450 ug/dL INTERFACE SYSTEM 02/22/2005 5:23 AM CDT Karol Tran MD CHEMISTRY ORDERABLES Performing Organization Address [facility] Phone Number INTERFACE SYSTEM Refer to clinic/hospital department * C-REACTIVE PROTEIN (02/22/2005 5:23 AM CDT) CRP <0.5 0.0 - 0.8 mg/dL INTERFACE SYSTEM 02/22/2005 5:23 AM CDT Karol Tran MD CHEMISTRY ORDERABLES Performing Organization Address [facility] Phone Number INTERFACE SYSTEM Refer to clinic/hospital department * (ABNORMAL) RETICULOCYTES (02/22/2005 5:23 AM CDT) RETICULOCYTES 3.5(H) 0.5 - 2.0 % INTERFACE SYSTEM IMMATURE RETIC FRACTION 38(H) 0 - 16 % INTERFACE SYSTEM 02/22/2005 5:23 AM CDT Karol Tran MD HEMATOLOGY ORDERABLE S Performing Organization Address [facility] INTERFACE SYSTEM Refer to clinic/hospital department * TRIGLYCERIDE (02/22/2005 5:23 AM CDT) TRIGLYCERIDE 139 38 - 152 mg/dL INTERFACE SYSTEM Comment: Triglyceride ATP III Classification: Normal ? <150 ?mg/dL Borderline High ? 150 - 199 ?mg/dL High ?200 - 499 ?mg/dL Very High ?>= 500 ?mg/dL 02/22/2005 5:23 AM CDT Karol Tran MD CHEMISTRY ORDERABLES Performing Organization Address [facility] Phone Number INTERFACE SYSTEM Refer to clinic/hospital department * SEDIMENTATION RATE (02/22/2005 5:23 AM CDT) ESR (SEDIMENTATION RATE) 6 0 - 20 mm/hr INTERFACE SYSTEM 02/22/2005 5:23 AM CDT Karol Tran MD HEMATOLOGY ORDERABLE S Performing Organization Address [facility] Phone Number INTERFACE SYSTEM Refer to clinic/hospital department * (ABNORMAL) COMPREHENSIVE METABOLIC PANEL (02/22/2005 5:23 AM CDT) GLUCOSE 134(H) 60 - 110 mg/dL INTERFACE SYSTEM CREATININE 0.4(L) 0.5 - 1.3 mg/dL INTERFACE SYSTEM CALCIUM 8.4 8.4 - 10.2 mg/dL INTERFACE SYSTEM AST 11(L) 12 - 38 U/L INTERFACE SYSTEM ALKALINE PHOSPHATASE 69 40 - 390 U/L INTERFACE SYSTEM BUN 16 6 - 20 mg/dL INTERFACE SYSTEM BILIRUBIN TOTAL 0.2 0.2 - 1.0 mg/dL INTERFACE SYSTEM ALBUMIN 2.8(L) 3.2 - 4.5 g/dL INTERFACE SYSTEM TOTAL PROTEIN 5.6(L) 6.3 - 8.6 g/dL INTERFACE SYSTEM ALT 9 0 - 41 U/L INTERFACE SYSTEM SODIUM 135 135 - 145 mmol/L INTERFACE SYSTEM POTASSIUM 4.6 3.5 - 4.9 mmol/L INTERFACE SYSTEM CHLORIDE 104 96 - 108 mmol/L INTERFACE SYSTEM CO2 26 22 - 30 mmol/L INTERFACE SYSTEM 02/22/2005 5:23 AM CDT Karol Tran MD CHEMISTRY ORDERABLES Performing Organization Address [facility] de Phone Number INTERFACE SYSTEM Refer to clinic/hospital department * CBC WITH DIFFERENTIAL (02/19/2005 5:40 AM CDT) ANISOCYTOSIS Slight INTERFA CE SYSTEM POIKILOCYTES Slight INTERFA CE SYSTEM MICROCYTES Moderate INTERFACE SYSTEM MACROCYTES Slight INTERFACE SYSTEM POLYCHROMASIA Slight INTERF EMELIA SYSTEM HYPOCHROMIA Slight INTERFAC E SYSTEM SCHISTOCYTES Slight INTERFA CE SYSTEM OVALOCYTES Slight INTERFACE SYSTEM ACANTHOCYTES Slight INTERFA CE SYSTEM TEAR DROP CELLS Slight INTE RFACE SYSTEM GIANT PLATELETS Present INTE RFACE SYSTEM REVIEWED ON SMEAR WBC & Plt Reviewed INTERFACE SYSTEM 02/19/2005 5:40 AM CDT Karol Tran MD HEMATOLOGY ORDERABLE S Performing Organization Address [facility] Phone Number INTERFACE SYSTEM Refer to clinic/hospital department * (ABNORMAL) CBC WITH DIFFERENTIAL (02/19/2005 5:40 AM CDT) NEUTROPHILS 84(H) 36 - 74 % INTERFAC E SYSTEM LYMPHOCYTES 10(L) 18 - 53 % INTERFAC E SYSTEM MONOCYTES 6 2 - 13 % INTERFACE SYSTEM EOSINOPHILS 0(L) 2 - 12 % INTERFAC E SYSTEM BASOPHILS 0 0 - 3 % INTERFACE SYSTEM NEUTROPHIL ABSOLUTE 10.96 K/uL INTERFACE SYSTEM LYMPHOCYTE ABSOLUTE 1.26 K/uL INTERFACE SYSTEM MONOCYTE ABSOLUTE 0.77 K/uL INTERFACE SYSTEM EOSINOPHIL ABSOLUTE 0.03 K/uL INTERFACE SYSTEM BASOPHILS ABSOLUTE 0.02 K/uL INTERFACE SYSTEM 02/19/2005 5:40 AM CDT Karol Tran MD HEMATOLOGY ORDERABLE S Performing Organization Address [facility] Phone Number INTERFACE SYSTEM Refer to clinic/hospital department * (ABNORMAL) CBC WITH DIFFERENTIAL (02/19/2005 5:40 AM CDT) WBC 13.0(H) 4.0 - 9.8 K/uL INTERFACE SYSTEM RBC 4.66 4.50 - 5.40 M/uL INTERFACE SYSTEM HEMOGLOBIN 7.9(AA) 13.6 - 16.5 g/dL INTERFACE SYSTEM Comment: Verified by repeat analysis. Results called to lean at 02/19/2005 6:52 AM and read back verified. HEMATOCRIT 30.9(L) 40.0 - 48.0 % INTERFACE SYSTEM MCV 66.3(L) 82.0 - 99.0 fL INTERFACE SYSTEM MCH 17.0(L) 27.2 - 32.6 pg INTERFACE SYSTEM MCHC 25.6(L) 31.5 - 35.5 % INTERFACE SYSTEM Comment: Verified by repeat analysis. Results confirmed by 2nd methodology. RDW 16.9(H) 11.5 - 14.5 % INTERFACE SYSTEM RDW-STDEV 40.6 37.1 - 48.7 fL INTERFACE SYSTEM PLATELETS 522(H) 140 - 350 K/uL INTERFACE SYSTEM MPV 8.8(L) 9.3 - 12.4 fL INTERFACE SYSTEM 02/19/2005 5:40 AM CDT Karol Tran MD HEMATOLOGY ORDERABLE S Performing Organization Address [facility] Phone Number INTERFACE SYSTEM Refer to clinic/hospital department * TRIGLYCERIDE (02/19/2005 5:40 AM CDT) TRIGLYCERIDE 81 38 - 152 mg/dL INTERFACE SYSTEM Comment: Triglyceride ATP III Classification: Normal ? <150 ?mg/dL Borderline High ? 150 - 199 ?mg/dL High ?200 - 499 ?mg/dL Very High ?>= 500 ?mg/dL 02/19/2005 5:40 AM CDT Karol Tran MD CHEMISTRY ORDERABLES Performing Organization Address [facility] Phone Number INTERFACE SYSTEM Refer to clinic/hospital department * (ABNORMAL) COMPREHENSIVE METABOLIC PANEL (02/19/2005 5:40 AM CDT) GLUCOSE 145(H) 60 - 110 mg/dL INTERFACE SYSTEM CREATININE 0.4(L) 0.5 - 1.3 mg/dL INTERFACE SYSTEM CALCIUM 7.9(L) 8.4 - 10.2 mg/dL INTERFACE SYSTEM AST 10(L) 12 - 38 U/L INTERFACE SYSTEM ALKALINE PHOSPHATASE 77 40 - 390 U/L INTERFACE SYSTEM BUN 12 6 - 20 mg/dL INTERFACE SYSTEM BILIRUBIN TOTAL 0.1(L) 0.2 - 1.0 mg/dL INTERFACE SYSTEM ALBUMIN 2.5(L) 3.2 - 4.5 g/dL INTERFACE SYSTEM TOTAL PROTEIN 6.0(L) 6.3 - 8.6 g/dL INTERFACE SYSTEM ALT 5 0 - 41 U/L INTERFACE SYSTEM SODIUM 137 135 - 145 mmol/L INTERFACE SYSTEM POTASSIUM 4.3 3.5 - 4.9 mmol/L INTERFACE SYSTEM CHLORIDE 104 96 - 108 mmol/L INTERFACE SYSTEM CO2 26 22 - 30 mmol/L INTERFACE SYSTEM 02/19/2005 5:40 AM CDT Karol Tran MD CHEMISTRY ORDERABLES Performing Organization Address [facility] Phone Number INTERFACE SYSTEM Refer to clinic/hospital department * TRIGLYCERIDE (02/16/2005 12:09 PM CDT) TRIGLYCERIDE 59 38 - 152 mg/dL INTERFACE SYSTEM Comment: Triglyceride ATP III Classification: Normal ? <150 ?mg/dL Borderline High ? 150 - 199 ?mg/dL High ?200 - 499 ?mg/dL Very High ?>= 500 ?mg/dL 02/16/2005 12:0 9 PM CDT Karol Tran MD CHEMISTRY ORDERABLES Performing Organization Address [facility] Phone Number INTERFACE SYSTEM Refer to clinic/hospital department * (ABNORMAL) COMPREHENSIVE METABOLIC PANEL (02/16/2005 12:09 PM CDT) GLUCOSE 95 60 - 110 mg/dL INTERFACE SYSTEM CREATININE 0.4(L) 0.5 - 1.3 mg/dL INTERFACE SYSTEM CALCIUM 8.0(L) 8.4 - 10.2 mg/dL INTERFACE SYSTEM AST 10(L) 12 - 38 U/L INTERFACE SYSTEM ALKALINE PHOSPHATASE 88 40 - 390 U/L INTERFACE SYSTEM BUN 5(L) 6 - 20 mg/dL INTERFACE SYSTEM BILIRUBIN TOTAL 0.2 0.2 - 1.0 mg/dL INTERFACE SYSTEM ALBUMIN 2.4(L) 3.2 - 4.5 g/dL INTERFACE SYSTEM TOTAL PROTEIN 5.9(L) 6.3 - 8.6 g/dL INTERFACE SYSTEM ALT 5 0 - 41 U/L INTERFACE SYSTEM SODIUM 138 135 - 145 mmol/L INTERFACE SYSTEM POTASSIUM 3.4(L) 3.5 - 4.9 mmol/L INTERFACE SYSTEM CHLORIDE 103 96 - 108 mmol/L INTERFACE SYSTEM CO2 29 22 - 30 mmol/L INTERFACE SYSTEM 02/16/2005 12:0 9 PM CDT Karol Tran MD CHEMISTRY ORDERABLES INTERFACE SYSTEM Refer to clinic/hospital department documented in this encounter Visit Diagnoses Diagnosis Regional enteritis of large intestine- Primary documented in this encounter Care Teams Outsole Cutter Machine Relationship Specialty Start Date End Date Not Found, Stl NO ADDRESS ON FILE PCP - General 10/31/12 documented as of this encounter
--- OUTSIDE RECORDS SUMMARY | 2024-07-09 05:38 | XMS_ITS | Encounter Summary ---
Author Organization [facility] Address [address] [place] [address] Care Team Providers Care Early Childhood Education Coordinator Name Role Phone Not Found, Stl Primary Care Provider Unavailabl e Encounter Details Date Type Department Care Team (Late st Contact Info) Description 05/17/[address] [facility] Social History Tobacco Use Types Packs/Day Years Used Date Smoking Tobacco: Never Assessed Sex and Gender Information Value Date Recorded Sex Assigned at Not on file Gender Identity Not on file Sexual Orientation Not on file documented as of this encounter Plan of Treatment Not on file documented as of this encounter Visit Diagnoses Not on filedocumented in this encounter Care Teams Early Childhood Education Coordinator Relationship Specialty Start Date End Date Not Found, Stl NO ADDRESS ON FILE PCP - General 10/31/12 documented as of this encounter
--- OUTSIDE RECORDS SUMMARY | 2024-07-09 05:38 | XMS_ITS | Encounter Summary ---
Author Organization [facility] Address [address] [place] [address] Care Team Providers Care Metal Hanger Name Role Phone Not Found, Stl Primary Care Provider Unavailabl e Encounter Details Date Type Department Care Team (Late st Contact Info) Description 02/20/2005 Outpatient Historical [facility] [address] [place] [phone] Abhijeet Ochoa MD Social History Tobacco Use [...] on filedocumented in this encounter Care Teams Metal Hanger Relationship Specialty Start Date End Date Not Found, Stl NO ADDRESS ON FILE PCP - General 10/31/12 documented as of this encounter
--- OUTSIDE RECORDS SUMMARY | 2024-07-09 05:38 | XMS_ITS | Encounter Summary ---
Author Organization [employer] [facility] Address [address] [place] [address] Care Team Providers Care Director Of Design Name Role Phone Not Found, Stl Primary Care Provider Unavailabl e Encounter Details Date Type Department Care Team (Late st Contact Info) Description 02/10/2005 Outpatient Historical [place] [address] [place] [id number] INTESTINAL DISORDER NOS (Primary Dx) Social History Tobacco Use Types Packs/Day Years Used Date Smoking Tobacco: Never Assessed Sex and Gender Information Value Date Recorded Sex Assigned at Not on file Gender Identity Not on file Sexual Orientation Not on file documented as of this encounter Plan of Treatment Not on file documented as of this encounter Visit Diagnoses Diagnosis Unspecified disorder of intestine- Primary documented in this encounter Care Teams Director Of Design Relationship Specialty Start Date End Date Not Found, Stl NO ADDRESS ON FILE PCP - General 10/31/12 documented as of this encounter
--- OUTSIDE RECORDS SUMMARY | 2024-07-09 05:38 | XMS_ITS | Encounter Summary ---
Author Organization [email or web address] Address [address] [place] [address] Care Team Providers Care Commercial Energy Auditor Name Role Phone Not Found, Stl Primary Care Provider Unavailabl e Encounter Details Date Type Department Care Team (Latest Contact Info) Description 03/03/2005 Outpatient Historical HIS [facility] VU Tran, [place] [address] [place] [phone] REG ENTERITIS, LG INTEST (Primary Dx) Social [...] Associated Diagnosis Comments CBC WITH DIFFERENTIAL Routine 03/03/2005 1:37 PM CDT CBC WITH DIFFERENTIAL Routine 03/03/2005 1:37 PM CDT CBC WITH DIFFERENTIAL Routine 03/03/2005 1:37 PM CDT SEDIMENTATION RATE Routine 03/03/2005 1: 37 PM CDT C-REACTIVE PROTEIN Routine 03/03/2005 1 :37 PM CDT ALT Routine 03/03/2005 1:37 PM CDT documented in this encounter Results * CBC WITH DIFFERENTIAL (03/03/2005 1:37 PM CDT) ANISOCYTOSIS Slight INTERFA CE SYSTEM POIKILOCYTES Slight INTERFA CE SYSTEM MICROCYTES Slight INTERFACE SYSTEM HYPOCHROMIA Slight INTERFAC E SYSTEM OVALOCYTES Slight INTERFACE SYSTEM TEAR DROP CELLS Slight INTE RFACE SYSTEM REVIEWED ON SMEAR WBC & Plt Reviewed INTERFACE SYSTEM 03/03/2005 1:37 PM CDT Karol Tran MD HEMATOLOGY ORDERABLE S Performing Organization Address [facility] Phone Number INTERFACE SYSTEM Refer to clinic/hospital department * (ABNORMAL) CBC WITH DIFFERENTIAL (03/03/2005 1:37 PM CDT) NEUTROPHILS 95(H) 36 - 74 % INTERFAC E SYSTEM LYMPHOCYTES 4(L) 18 - 53 % INTERFAC E SYSTEM MONOCYTES 1(L) 2 - 13 % INTERFACE SYSTEM EOSINOPHILS 0(L) 2 - 12 % INTERFAC E SYSTEM BASOPHILS 0 0 - 3 % INTERFACE SYSTEM NEUTROPHIL ABSOLUTE 16.59 K/uL INTERFACE SYSTEM LYMPHOCYTE ABSOLUTE 0.73 K/uL INTERFACE SYSTEM MONOCYTE ABSOLUTE 0.15 K/uL INTERFACE SYSTEM EOSINOPHIL ABSOLUTE 0.00 K/uL INTERFACE SYSTEM BASOPHILS ABSOLUTE 0.01 K/uL INTERFACE SYSTEM 03/03/2005 1:37 PM CDT Karol Tran MD HEMATOLOGY ORDERABLE S Performing Organization Address [facility] Phone Number INTERFACE SYSTEM Refer to clinic/hospital department * (ABNORMAL) CBC WITH DIFFERENTIAL (03/03/2005 1:37 PM CDT) WBC 17.5(H) 4.0 - 9.8 K/uL INTERFACE SYSTEM RBC 5.10 4.50 - 5.40 M/uL INTERFACE SYSTEM HEMOGLOBIN 10.9(L) 13.6 - 16.5 g/dL INTERFACE SYSTEM HEMATOCRIT 37.9(L) 40.0 - 48.0 % INTERFACE SYSTEM MCV 74.3(L) 82.0 - 99.0 fL INTERFACE SYSTEM MCH 21.4(L) 27.2 - 32.6 pg INTERFACE SYSTEM MCHC 28.8(L) 31.5 - 35.5 % INTERFACE SYSTEM RDW Parameter N/A 11.5 - 14.5 INTERFACE SYSTEM RDW-STDEV Parameter N/A 37.1 - 48.7 INTERFACE SYSTEM PLATELETS 425(H) 140 - 350 K/uL INTERFACE SYSTEM MPV 10.3 9.3 - 12.4 fL INTERFACE SYSTEM 03/03/2005 1:37 PM CDT Karol Tran MD HEMATOLOGY ORDERABLE S Performing Organization Address [facility] Phone Number INTERFACE SYSTEM Refer to clinic/hospital department * (ABNORMAL) SEDIMENTATION RATE (03/03/2005 1:37 PM CDT) ESR (SEDIMENTATION RATE) 22(H) 0 - 20 mm/hr INTERFACE SYSTEM 03/03/2005 1:37 PM CDT Karol Tran MD HEMATOLOGY ORDERABLE S Performing Organization Address [facility] Phone Number INTERFACE SYSTEM Refer to clinic/hospital department * (ABNORMAL) C-REACTIVE PROTEIN (03/03/2005 1:37 PM CDT) CRP 1.4(H) 0.0 - 0.8 mg/dL INTERFACE SYSTEM 03/03/2005 1:37 PM CDT Karol Tran MD CHEMISTRY ORDERABLES Performing Organization Address [facility] Phone Number INTERFACE SYSTEM Refer to clinic/hospital department * ALT (03/03/2005 1:37 PM CDT) ALT 31 0 - 41 U/L INTERFACE SYSTEM 03/03/2005 1:37 PM CDT Karol Tran MD CHEMISTRY ORDERABLES Performing Organization Address [facility] Co de Phone Number INTERFACE SYSTEM Refer to clinic/hospital department documented in this encounter Visit Diagnoses Diagnosis Regional enteritis of large intestine- Primary documented in this encounter Care Teams Commercial Energy Auditor Relationship Specialty Start Date End Date Not Found, Stl NO ADDRESS ON FILE PCP - General 10/31/12 documented as of this encounter
--- OUTSIDE RECORDS SUMMARY | 2024-07-09 05:38 | XMS_ITS | Encounter Summary ---
Author Organization [facility] Address [address] Attn: Epic Prelude ADT NEENA RUIZ [address] Care Team Providers Care Carbonation Equipment Operator Name Role Phone Karol Tran MD Primary Care Provider Encounter Details Date Type Department Care Team (Latest Contact Info) Description 07/09/2007 Orders Only Conversion, History Social History Tobacco Use Types Packs/Day Years Used Date Smoking Tobacco: Never Assessed Sex and Gender Information Value Date Recorded Sex Assigned at Not on file Gender Identity Not on file Sexual Orientation Not on file documented as of this encounter Progress Notes * Conversion, History - 09/06/2007 9:28 PM PHARMACIST INTERN MACIST INTERN documented in this encounter Plan of Treatment Not on file documented as of this encounter Visit Diagnoses Not on filedocumented in this encounter Care Teams Carbonation Equipment Operator Relationship Specialty Start [place] [address] [place] [address] PCP - General 02/10/05 10/30/12 documented as of this encounter
--- OUTSIDE RECORDS SUMMARY | 2024-07-09 05:38 | XMS_ITS | Encounter Summary ---
Author Organization [facility] Address [address] [place] [address] Care Team Providers Care Railroad Car Loader Name Role Phone Not Found, Stl Primary Care Provider Unavailabl e Encounter Details Date Type Department Care Team (Latest Contact Info) Description 05/17/2005 Outpatient Historical HIS [facility] [place] Tran, [place] [address] [place] [phone] REG ENTERIT SM/LG INTEST (Primary Dx) Social [...] Associated Diagnosis Comments CBC WITH DIFFERENTIAL Routine 05/17/2005 9:48 AM RESOURCE ENGINEER CBC WITH DIFFERENTIAL Routine 05/17/2005 9:48 AM RESOURCE ENGINEER SEDIMENTATION RATE Routine 05/17/2005 9: 48 AM RESOURCE ENGINEER C-REACTIVE PROTEIN Routine 05/17/2005 9: 48 AM RESOURCE ENGINEER HEPATIC FUNCTION PANEL Routine 5 9:48 AM RESOURCE ENGINEER documented in this encounter Results * (ABNORMAL) CBC WITH DIFFERENTIAL (05/17/2005 9:48 AM RESOURCE ENGINEER) NEUTROPHILS 71 36 - 74 % INTERFAC E SYSTEM LYMPHOCYTES 18 18 - 53 % INTERFAC E SYSTEM MONOCYTES 11 2 - 13 % INTERFACE SYSTEM EOSINOPHILS 1(L) 2 - 12 % INTERFAC E SYSTEM BASOPHILS 0 0 - 3 % INTERFACE SYSTEM NEUTROPHIL ABSOLUTE 6.93 K/uL INTERFACE SYSTEM LYMPHOCYTE ABSOLUTE 1.72 K/uL INTERFACE SYSTEM MONOCYTE ABSOLUTE 1.06 K/uL INTERFACE SYSTEM EOSINOPHIL ABSOLUTE 0.05 K/uL INTERFACE SYSTEM BASOPHILS ABSOLUTE 0.03 K/uL INTERFACE SYSTEM 05/17/2005 9:48 AM RESOURCE ENGINEER Karol Tran MD HEMATOLOGY ORDERABLE S Performing Organization Address [facility] Phone Number INTERFACE SYSTEM Refer to clinic/hospital department * (ABNORMAL) CBC WITH DIFFERENTIAL (05/17/2005 9:48 AM RESOURCE ENGINEER) WBC 9.8 4.0 - 9.8 K/uL INTERFACE SYSTEM RBC 5.29 4.50 - 5.40 M/uL INTERFACE SYSTEM HEMOGLOBIN 14.7 13.6 - 16.5 g/dL INTERFACE SYSTEM HEMATOCRIT 45.3 40.0 - 48.0 % INTERFACE SYSTEM MCV 85.6 82.0 - 99.0 fL INTERFACE SYSTEM MCH 27.8 27.2 - 32.6 pg INTERFACE SYSTEM MCHC 32.5 31.5 - 35.5 % INTERFACE SYSTEM RDW 14.8(H) 11.5 - 14.5 % INTERFACE SYSTEM RDW-STDEV 44.4 37.1 - 48.7 fL INTERFACE SYSTEM PLATELETS 449(H) 140 - 350 K/uL INTERFACE SYSTEM MPV 9.1(L) 9.3 - 12.4 fL INTERFACE SYSTEM 05/17/2005 9:48 AM RESOURCE ENGINEER Karol Tran MD HEMATOLOGY ORDERABLE S Performing Organization Address [facility] Phone Number INTERFACE SYSTEM Refer to clinic/hospital department * (ABNORMAL) SEDIMENTATION RATE (05/17/2005 9:48 AM RESOURCE ENGINEER) ESR (SEDIMENTATION RATE) 41(H) 0 - 20 mm/hr INTERFACE SYSTEM 05/17/2005 9:48 AM RESOURCE ENGINEER Karol Tran MD HEMATOLOGY ORDERABLE S Performing Organization Address [facility] Phone Number INTERFACE SYSTEM Refer to clinic/hospital department * (ABNORMAL) C-REACTIVE PROTEIN (05/17/2005 9:48 AM RESOURCE ENGINEER) CRP 5.5(H) 0.0 - 0.8 mg/dL INTERFACE SYSTEM 05/17/2005 9:48 AM RESOURCE ENGINEER Karol Tran MD CHEMISTRY ORDERABLES Performing Organization Address [facility] de Phone Number INTERFACE SYSTEM Refer to clinic/hospital department * (ABNORMAL) HEPATIC FUNCTION PANEL (05/17/2005 9:48 AM RESOURCE ENGINEER) AST 17 12 - 38 U/L INTERFACE SYSTEM ALKALINE PHOSPHATASE 86 40 - 390 U/L INTERFACE SYSTEM BILIRUBIN TOTAL 0.1(L) 0.2 - 1.0 mg/dL INTERFACE SYSTEM ALBUMIN 3.6 3.2 - 4.5 g/dL INTERFACE SYSTEM TOTAL PROTEIN 7.7 6.3 - 8.6 g/dL INTERFACE SYSTEM ALT 12 0 - 41 U/L INTERFACE SYSTEM BILIRUBIN DIRECT <0.1 0.0 - 0.3 mg/dL INTERFACE SYSTEM 05/17/2005 9:48 AM RESOURCE ENGINEER Karol Tran MD CHEMISTRY ORDERABLES Performing Organization Address [facility] Phone Number INTERFACE SYSTEM Refer to clinic/hospital department documented in this encounter Visit Diagnoses Diagnosis Regional enteritis of small intestine with large intestine- Primary documented in this encounter Care Teams Railroad Car Loader Relationship Specialty Start Date End Date Not Found, Stl NO ADDRESS ON FILE PCP - General 10/31/12 documented as of this encounter
--- OUTSIDE RECORDS SUMMARY | 2024-07-09 05:38 | XMS_ITS | Encounter Summary ---
Author Organization [facility] Address [address] [place] [address] Care Team Providers Care Green Meat Packer Name Role Phone Not Found, Stl Primary Care Provider Unavailabl e Encounter Details Date Type Department Care Team (Latest Contact Info) Description 03/28/2008 Outpatient Historical [facility] Franck Collazo MD NO ADDRESS ON FILE Regional Enteritis of Unspecified Site Social History [...] site documented in this encounter Care Teams Green Meat Packer Relationship Specialty Start Date End Date Not Found, Stl NO ADDRESS ON FILE PCP - General 10/31/12 documented as of this encounter
--- OUTSIDE RECORDS SUMMARY | 2024-07-09 05:38 | XMS_ITS | Encounter Summary ---
Author Organization [email or web address] Address [address] [place] [address] Care Team Providers Care Electrical Control Assembler Name Role Phone Not Found, Stl Primary Care Provider Unavailabl e Encounter Details Date Type Department Care Team (Latest Contact Info) Description 02/09/2005 Outpatient Historical HIS [facility] Tran, [place] [address] [place] [phone] REG ENTERITIS, LG INTEST (Primary Dx) Social [...] Name Priority Date/Time Associated Diagnosis Comments TSH REFLEXIVE Routine 02/09/2005 3:02 PM CDT CBC WITH DIFFERENTIAL Routine 02/09/2005 3:02 PM CDT CBC WITH DIFFERENTIAL Routine 02/09/2005 3:02 PM CDT CBC WITH DIFFERENTIAL Routine 02/09/2005 3:02 PM CDT SEDIMENTATION RATE Routine 02/09/2005 3: 02 PM CDT C-REACTIVE PROTEIN Routine 02/09/2005 3: 02 PM CDT documented in this encounter Results * CBC WITH DIFFERENTIAL (02/09/2005 3:02 PM CDT) ANISOCYTOSIS Slight INTERFA CE SYSTEM POIKILOCYTES Slight INTERFA CE SYSTEM MICROCYTES Moderate INTERFACE SYSTEM HYPOCHROMIA Slight INTERFAC E SYSTEM SCHISTOCYTES Slight INTERFA CE SYSTEM OVALOCYTES Slight INTERFACE SYSTEM TEAR DROP CELLS Slight INTE RFACE SYSTEM REVIEWED ON SMEAR Plt OK by Smear Rev. INTERFACE SYSTEM 02/09/2005 3:02 PM CDT Karol Tran MD HEMATOLOGY ORDERABLE S Performing Organization Address [facility] Phone Number INTERFACE SYSTEM Refer to clinic/hospital department * CBC WITH DIFFERENTIAL (02/09/2005 3:02 PM CDT) NEUTROPHILS 65 36 - 74 % INTERFAC E SYSTEM LYMPHOCYTES 24 18 - 53 % INTERFAC E SYSTEM MONOCYTES 9 2 - 13 % INTERFACE SYSTEM EOSINOPHILS 2 2 - 12 % INTERFAC E SYSTEM BASOPHILS 1 0 - 3 % INTERFACE SYSTEM NEUTROPHIL ABSOLUTE 3.84 K/uL INTERFACE SYSTEM LYMPHOCYTE ABSOLUTE 1.43 K/uL INTERFACE SYSTEM MONOCYTE ABSOLUTE 0.56 K/uL INTERFACE SYSTEM EOSINOPHIL ABSOLUTE 0.09 K/uL INTERFACE SYSTEM BASOPHILS ABSOLUTE 0.03 K/uL INTERFACE SYSTEM 02/09/2005 3:02 PM CDT Karol Tran MD HEMATOLOGY ORDERABLE S Performing Organization Address [facility] Phone Number INTERFACE SYSTEM Refer to clinic/hospital department * (ABNORMAL) CBC WITH DIFFERENTIAL (02/09/2005 3:02 PM CDT) WBC 6.0 4.0 - 9.8 K/uL INTERFACE SYSTEM RBC 5.03 4.50 - 5.40 M/uL INTERFACE SYSTEM HEMOGLOBIN 8.7(L) 13.6 - 16.5 g/dL INTERFACE SYSTEM HEMATOCRIT 32.0(L) 40.0 - 48.0 % INTERFACE SYSTEM Comment: Verified by repeat analysis. Results confirmed by 2nd methodology. MCV 63.6(L) 82.0 - 99.0 fL INTERFACE SYSTEM MCH 17.3(L) 27.2 - 32.6 pg INTERFACE SYSTEM MCHC 27.2(L) 31.5 - 35.5 % INTERFACE SYSTEM RDW 16.9(H) 11.5 - 14.5 % INTERFACE SYSTEM RDW-STDEV 38.6 37.1 - 48.7 fL INTERFACE SYSTEM PLATELETS 527(H) 140 - 350 K/uL INTERFACE SYSTEM MPV 8.9(L) 9.3 - 12.4 fL INTERFACE SYSTEM 02/09/2005 3:02 PM CDT Karol Tran MD HEMATOLOGY ORDERABLE S Performing Organization Address [facility] Co de Phone Number INTERFACE SYSTEM Refer to clinic/hospital department * TSH REFLEXIVE (02/09/2005 3:02 PM CDT) TSH 1.84 0.27 - 4.20 uU/mL INTERFACE SYSTEM 02/09/2005 3:02 PM CDT Karol Tran MD CHEMISTRY ORDERABLES Performing Organization Address [facility] Phone Number INTERFACE SYSTEM Refer to clinic/hospital department * (ABNORMAL) SEDIMENTATION RATE (02/09/2005 3:02 PM CDT) ESR (SEDIMENTATION RATE) 51(H) 0 - 20 mm/hr INTERFACE SYSTEM 02/09/2005 3:02 PM CDT Karol Tran MD HEMATOLOGY ORDERABLE S Performing Organization Address [facility] Phone Number INTERFACE SYSTEM Refer to clinic/hospital department * (ABNORMAL) C-REACTIVE PROTEIN (02/09/2005 3:02 PM CDT) CRP 5.4(H) 0.0 - 0.8 mg/dL INTERFACE SYSTEM 02/09/2005 3:02 PM CDT Karol Tran MD CHEMISTRY ORDERABLES Performing Organization Address [facility] Phone Number INTERFACE SYSTEM Refer to clinic/hospital department documented in this encounter Visit Diagnoses Diagnosis Regional enteritis of large intestine- Primary documented in this encounter Care Teams Electrical Control Assembler Relationship Specialty Start Date End Date Not Found, Stl NO ADDRESS ON FILE PCP - General 10/31/12 documented as of this encounter
--- OUTSIDE RECORDS SUMMARY | 2024-07-09 08:48 | XMS_ITS | Encounter Summary ---
Author Organization [facility] Address [address] [place] [address]. [place], [place] [id number] [place] [address] Care Team Providers Care Flight Operations Engineer Name Role Phone Lanre Parekh DO Primary Care Provider + Reason for Referral * Consultation (Routine) - Closed Specialty Diagnoses / Procedures Referred By Renay t Referred To Contact WOUND CARE / [facility] Wound Care Diagnoses Wound of abdomen Procedures OFFICE/OUTPT VISIT,NEW,LEVL III OFFICE/OUTPT VISIT,NEW,LEVL IV OFFICE/OUTPT VISIT,NEW,LEVL V OFFICE/OUTPT VISIT,EST,LEVL III OFFICE/OUTPT VISIT,EST,LEVL IV OFFICE/OUTPT VISIT,EST,LEVL V Bernadette Roberts NP [facility] [place] [address] Phone: tel: fax: Referral ID Status Reason Start Date Expiration Date V isits Requested Visits Authorized [id number] Closed Specialty Services 09/07/2022 10/07/2023 1 1 SCHOOL COORDINATOR Reason for Visit * Reason Comments Wound Encounter Details Date Type Department Care Team (Late st Contact Info) Description 09/07/2022 12:20 PM HIGH SCHOOL COORDINATOR Office Visit [facility] Medical Group Multispecialty Care - [address] [place] [address] Bernadette Roberts NP Wound Social History Tobacco [...] Sex Assigned at Male 07/01/2024 9:54 AM HIGH SCHOOL COORDINATOR Legal Sex Male 8:28 AM HIGH SCHOOL COORDINATOR Gender Identity Male 07/01/2024 9:54 AM HIGH SCHOOL COORDINATOR Sexual Orientation Not on file COVID-19 Exposure Response Date Recorded In the last 10 days, have yo u been in contact with someone who was confirmed or suspected to have Coronavirus/COVID-19? No / Unsure 09/07/2022 12:06 PM HIGH SCHOOL COORDINATOR documented as of this encounter Last Filed Vital Signs Vital Sign Reading Time Taken Comments Blood Pressure 93/76 09/07/2022 12:28 PM HIGH SCHOOL COORDINATOR Pulse 75 09/07/2022 12:28 PM HIGH SCHOOL COORDINATOR Temperature 37.2 ??C (98.9 ??F) 09/07/2022 1 2:28 PM HIGH SCHOOL COORDINATOR Respiratory Rate - - Oxygen Saturation 97% 09/07/2022 12: 28 PM HIGH SCHOOL COORDINATOR Inhaled Oxygen Concentration - - Weight 86.5 kg (190 lb 12.8 oz) 023 12:28 PM HIGH SCHOOL COORDINATOR Height 172.7 cm (5' 8 ) 09/07/2022 12:2 8 PM HIGH SCHOOL COORDINATOR Body Mass Index 29.01 09/07/2022 12:28 PM HIGH SCHOOL COORDINATOR documented in this encounter Patient Instructions * Attachments The following attachments cannot be sent through Care Everywhere. * Wound Care Discharge Instructions (North Korean) documented in this encounter Progress Notes * [...] disease of both small and large intestine ([facility]) 01/25/2017 Overview: Onset: 2004. Phenotype and distribution: Stricturing Primarily involving the ileum with some concern for fistulizing disease though no evidence of fistula penetrating colon lumen during surgery in 2018 Medical therapies: Previously treated with prednisone for at least 2 continuous years, flagyl, Asacol, Azathioprine ([phone]), Remicade ([phone], switched for insurance purposes), Hu ??? Iritis [...] referral to Wound Clinic Bernadette Roberts APN, EIGHT SECTION BLOWER, [employer] COORDINATOR documented in this encounter Plan of [...] documented as of this encounter Care Teams Flight Operations Engineer Relationship Specialty Start Date End Date Lanre Parekh DO [address] [place] [address] PCP - General FAMILY PRACTICE 09/07/22 documented as of this encounter
--- OUTSIDE RECORDS SUMMARY | 2024-07-09 08:48 | XMS_ITS | Encounter Summary ---
Author Organization [facility] Address [address] [place] [address]. [place], [place] [address] [place] [address] Care Team Providers Care Medical Health Researcher Name Role Phone Lanre Parekh DO Primary [...] Sex Assigned at Male 07/01/2024 9:54 AM PUBLISHING SYSTEMS ANALYST Legal Sex Male 8:28 AM PUBLISHING SYSTEMS ANALYST Gender Identity Male 07/01/2024 9:54 AM PUBLISHING SYSTEMS ANALYST Sexual Orientation Not on file documented as of this encounter Plan of Treatment Not on file documented as of this encounter Visit Diagnoses Not on filedocumented in this encounter Additional Health Concerns Assessment Noted Time PHQ-9 Depression Total Score: 1 01/26/20 21 11:17 AM CDT documented as of this encounter Care Teams Medical Health Researcher Relationship Specialty Start Date End Date Lanre Parekh DO [address] [place] [address] PCP - General FAMILY PRACTICE 09/07/22 documented as of this encounter
--- OUTSIDE RECORDS SUMMARY | 2024-07-09 08:48 | XMS_ITS | Encounter Summary ---
Author Organization [facility] Address [address] [place] [address]. [place], [place] [address] [place] [address] Care Team Providers Care Sheet Rocker Name Role Phone Lanre Parekh DO Primary [...] Sex Assigned at Male 07/01/2024 9:54 AM PROPOSAL LEAD WRITER Legal Sex Male 8:28 AM PROPOSAL LEAD WRITER Gender Identity Male 07/01/2024 9:54 AM PROPOSAL LEAD WRITER Sexual Orientation Not on file documented as of this encounter Plan of Treatment Not on file documented as of this encounter Visit Diagnoses Not on filedocumented in this encounter Additional Health Concerns Assessment Noted Time PHQ-9 Depression Total Score: 1 01/26/20 21 11:17 AM CDT documented as of this encounter Care Teams Sheet Rocker Relationship Specialty Start Date End Date Lanre Parekh DO [address] [place] [address] PCP - General FAMILY PRACTICE 09/07/22 documented as of this encounter
--- OUTSIDE RECORDS SUMMARY | 2024-07-09 08:48 | XMS_ITS | Encounter Summary ---
Author Organization [facility] Address [address] [place] [address]. [place], [place] [address] [place] [address] Care Team Providers Care Operater Name Role Phone Lanre Parekh DO Primary [...] Sex Assigned at Male 07/01/2024 9:54 AM BIOLOGY RESEARCH ASSISTANT Legal Sex Male 8:28 AM BIOLOGY RESEARCH ASSISTANT Gender Identity Male 07/01/2024 9:54 AM BIOLOGY RESEARCH ASSISTANT Sexual Orientation Not on file documented as of this encounter Plan of Treatment Not on file documented as of this encounter Visit Diagnoses Not on filedocumented in this encounter Additional Health Concerns Assessment Noted Time PHQ-9 Depression Total Score: 1 01/26/20 21 11:17 AM CDT documented as of this encounter Care Teams Operater Relationship Specialty Start Date End Date Lanre Parekh DO [address] [place] [address] PCP - General FAMILY PRACTICE 09/07/22 documented as of this encounter
--- OUTSIDE RECORDS SUMMARY | 2024-07-09 08:48 | XMS_ITS | Encounter Summary ---
Author Organization [facility] Address [address] [place] [address]. [place] [address] [place] [address] Care Team Providers Care Lieutenant Ballistics Name Role Phone Lanre Parekh Primary Care Provider + Reason for Visit * Reason Comments Lump Lump back of head.Ri ght ear pain. Sore throat X2 days Encounter Details Date Type Department Care Team (Late st Contact Info) Description 09/24/2023 3:40 PM CDT Office Visit [facility] Medical Group Family & Internal Medicine [facility] [address] [place] [phone] [place] [address] [place] [address] Lump (Lump back of head./Right [...] Sex Assigned at Male 07/01/2024 9:54 AM SUPERINTENDENT MEASUREMENT Legal Sex Male 8:28 AM SUPERINTENDENT MEASUREMENT Gender Identity Male 07/01/2024 9:54 AM SUPERINTENDENT MEASUREMENT Sexual Orientation Not on file documented as [...] Care Everywhere. * Strep throat in adults (Omani) documented in this encounter Progress Notes * [...] and large intestine ([facility]) 01/25/2017 Overview: Onset: 2004. Phenotype and distribution: Stricturing Primarily involving the ileum with some concern for fistulizing disease though no evidence of fistula penetrating colon lumen during surgery in 2018 Medical therapies: Previously treated with prednisone for at least 2 continuous years, flagyl, Asacol, Azathioprine ([id number]), Remicade ([phone], switched for insurance purposes), Hu Iritis Osteoporosis [...] Portions of this note were dictated using [employer] speech recognition software. Occasional wrong wordor sound-alike [...] (09/24/2023) RAPID STREP TEST POSITIVE(A ) NEGATIVE [id number] TROXLER OSCAREBLU Internal Control: VALID VALID [id number] JENNIFERER BLU HERRERA STRUCTURE OF ANTERIOR PORTION OF NECK / Unknown 09/24/2023 Anjana SAM MICROBIOLOGY - GENERAL ORDER YOSELYN Edited Result - Final -[id number] [address] [place] [address] [place] [address], documented in this encounter Visit Diagnoses Diagnosis [...] documented as of this encounter Care Teams Lieutenant Ballistics Relationship Specialty Start Date End Date Lanre Parekh DO [address] [place] [address] PCP - General FAMILY PRACTICE 09/07/22 documented as of this encounter
--- OUTSIDE RECORDS SUMMARY | 2024-07-09 08:48 | XMS_ITS | Encounter Summary ---
Author Organization [facility] Address [address] [place] [address]. [place], [place] [phone] [place] [address] Care Team Providers Care Hand Cloth Cutter Name Role Phone Lanre Parekh DO Primary [...] Sex Assigned at Male 07/01/2024 9:54 AM C UNIX DEVELOPER Legal Sex Male 8:28 AM C UNIX DEVELOPER Gender Identity Male 07/01/2024 9:54 AM C UNIX DEVELOPER Sexual Orientation Not on file documented as of this encounter Plan of Treatment Not on file documented as of this encounter Visit Diagnoses Not on filedocumented in this encounter Additional Health Concerns Infection Onset Date Last Indicated Resolved Time COVID-19 Rule Out 07/01/2024 07/01/2024 07/01/2024 10:33 AM C UNIX DEVELOPER COVID-19 Rule Out 07/01/2024 07/01/2024 07/02/2024 4:06 PM C UNIX DEVELOPER Assessment Noted Time PHQ-9 Depression Total Score: 1 01/26/20 21 11:17 AM CDT documented as of this encounter Care Teams Hand Cloth Cutter Relationship Specialty Start Date End Date Lanre Parekh DO [address] [place] [address] PCP - General FAMILY PRACTICE 09/07/22 documented as of this encounter
--- OUTSIDE RECORDS SUMMARY | 2024-07-09 08:48 | XMS_ITS | Encounter Summary ---
Author Organization [facility] Address [address] [place] [address]. [place], [place] [address] [place] [address] Care Team Providers Care Drainman Name Role Phone Lanre Parekh DO Primary Care Provider + Reason for Visit * Reason Comments Abdominal Pain Patient states sympt oms have resolved. Encounter Details Date Type Department Care Team (Late st Contact Info) Description 06/14/2023 2:00 PM VALET PARKING ATTENDANT Office Visit [facility] Family & Internal Medicine [address] [address] Lanre Parekh DO [facility] [place], [place] [id number] Abdominal Pain (Patient states symptoms have resolved. [...] Sex Assigned at Male 07/01/2024 9:54 AM VALET PARKING ATTENDANT Legal Sex Male 8:28 AM VALET PARKING ATTENDANT Gender Identity Male 07/01/2024 9:54 AM VALET PARKING ATTENDANT Sexual Orientation Not on file documented as of this encounter Last Filed Vital Signs Vital Sign Reading Time Taken Comments Blood Pressure 112/70 06/14/2023 2:01 PM VALET PARKING ATTENDANT Pulse 69 06/14/2023 2:01 PM VALET PARKING ATTENDANT Temperature 37.1 ??C (98.8 ??F) 06/14/2023 2:01 PM CS T Respiratory Rate 16 06/14/2023 2:01 PM VALET PARKING ATTENDANT Oxygen Saturation 98% 06/14/2023 2:01 PM VALET PARKING ATTENDANT Inhaled Oxygen Concentration - - Weight 88.3 kg (194 lb 11.2 oz) 06/14/2023 2:01 PM VALET PARKING ATTENDANT Height 172.7 cm (5' 8 ) 06/14/2023 2:01 PM VALET PARKING ATTENDANT Body Mass Index 29.6 06/14/2023 2:01 PM VALET PARKING ATTENDANT documented in this encounter Progress Notes * [...] Active Problem List Diagnosis Arthritis Crohn's disease ([facility]/HCC) ([facility]/HCC) Crohn's disease of both small and large intestine (CMS/HCC) Generalized abdominal pain Diarrhea due to malabsorption ([facility]/HCC) History of high risk medication treatment [...] least 2 continuous years, flagyl, Asacol, Azathioprine (3229-6530), Remicade (0733-3913, switched for insurance purposes), Hu Iritis Osteoporosis [...] if needed. Patient verbalizedunderstanding. Lanre Parekh DO T PARKING ATTENDANT documented in this encounter Plan of Treatment Not on file documented as of this encounter Procedures Procedure Name Priority Date/Time Associated Diagnosis Comments LIPID PANEL Routine 06/14/2023 2:36 PM VALET PARKING ATTENDANT Need for hepatitis C screening test Screening for lipid disorders Annual physical exam HEPATITIS C ANTIBODY Routine 06/14/2023 2:36 PM VALET PARKING ATTENDANT Need for hepatitis C screening test Screening for lipid disorders Annual physical exam VITAMIN D, 25 OH Routine 06/14/2023 2:36 PM VALET PARKING ATTENDANT Osteoporosis without current pathological fracture, unspecified osteoporosis type URIC ACID BLOOD Routine 06/14/2023 2:36 PM VALET PARKING ATTENDANT Screening for endocrine, metabolic and immunity disorder COLLECTION VENOUS BLOOD VENIPUNCTURE Routine 06/14/2023 2:13 PM VALET PARKING ATTENDANT Need for hepatitis C screening test Screening for lipid disorders Annual physical exam documented in this encounter Results * (ABNORMAL) VITAMIN D 25 OH ([facility] ONLY) (06/14/2023 2:36 PM VALET PARKING ATTENDANT) VITAMIN D 25 HYDROXY TOTAL S/P/B 29.2(L) 30 - 100 NG/ML 06/15/2023 11:44 AM VALET PARKING ATTENDANT [facility] Comment: ? DEFICIENT ??<20 ?INSUFFICIENT 20-30 ?SUFFICIENT 30-100 06/14/2023 2:36 PM VALET PARKING ATTENDANT us Lanre Parekh DO LABORATORY Final Re sult [facility] [address] [place] [address], [place] [phone] * URIC ACID BLOOD (06/14/2023 2:36 PM VALET PARKING ATTENDANT) Pathologist [facility] URIC ACID 6.1 3.5 - 7.2 MG/DL 06/15/2023 1:50 PM VALET PARKING ATTENDANT [facility] 06/14/2023 2:36 PM VALET PARKING ATTENDANT Lanre Parekh DO LABORATORY Final Re sult [facility] [address] [place] [address], [place] [phone] * HEPATITIS C ANTIBODY ([facility] ONLY) (06/14/2023 2:36 PM VALET PARKING ATTENDANT) Pathologist [facility] HEPATITIS C AB NON-REACTI VE NON-REACT JESSICA 06/14/2023 10:36 PM VALET PARKING ATTENDANT [facility] Comment: ANTIBODIES TO HCV NOT DETECTED. DOES NOT EXCLUDE THE POSSIBILITY OF EXPOSURE TO HCV. 06/14/2023 2:36 PM VALET PARKING ATTENDANT Lanre Parekh DO LABORATORY Final Re sult Performing Organization Address City/[facility] Co de Phone Number [facility] [address] [place] [address], [place] [phone] * (ABNORMAL) LIPID PANEL (06/14/2023 2:36 PM VALET PARKING ATTENDANT) CHOLESTEROL 98 <200 MG/DL 06/15/2023 11:44 AM VALET PARKING ATTENDANT [facility] TRIGLYCERIDES 121 <150 MG/DL 06/15/2023 11:44 AM VALET PARKING ATTENDANT [facility] HDL 23(L) >40 MG/DL 06/15/2023 11:44 AM [facility] LDL-C 51 <100 MG/DL 06/15/2023 11:44 AM VALET PARKING ATTENDANT [facility] VLDL CALCULATION 24 5 - 28 MG/DL 06/15/2023 11:44 AM [facility] CHOL/HDL RATIO 4.3(H) 0.0 - 4.0 06/15/2023 11:44 AM VALET PARKING ATTENDANT [facility] [place] LDL/HDL 2.2(H) 0.41 - 2.13 06/15/2023 11:44 AM VALET PARKING ATTENDANT [facility] [place], [place] NON HDL CHOLESTEROL 75 <140 MG/DL 06/15/2023 11:44 AM VALET PARKING ATTENDANT [facility] [place] 06/14/2023 2:36 PM VALET PARKING ATTENDANT Lanre Parekh DO LABORATORY Final Re sult [facility] [place] [address] [facility] [place] [address], documented in this encounter Visit Diagnoses Diagnosis [...] documented as of this encounter Care Teams Drainman Relationship Specialty Start Date End Date Lanre Parekh DO [address] [place] [address] PCP - General FAMILY PRACTICE 09/07/22 documented as of this encounter
--- OUTSIDE RECORDS SUMMARY | 2024-07-09 08:48 | XMS_ITS | Encounter Summary ---
Author Organization [facility] Address [address] [place] [address]. [place], [place] [address] [place] [address] Care Team Providers Care Roll Builder Name Role Phone Lanre Parekh DO Primary Care Provider + Reason for Visit * Reason Onset Date Comments Radiology Results 03/16/2023 Encounter Details Date Type Department Care Team (Late st Contact Info) Description 03/16/2023 Telephone [facility] Family & Internal Medicine [facility] [address] [place] [address] Lanre Parekh DO [address] [place], [place] [phone] Radiology Results Social History Tobacco Use Types [...] Sex Assigned at Male 07/01/2024 9:54 AM STAGECRAFT TEACHER Legal Sex Male 8:28 AM STAGECRAFT TEACHER Gender Identity Male 07/01/2024 9:54 AM STAGECRAFT TEACHER Sexual Orientation Not on file documented [...] documented as of this encounter Care Teams Roll Builder Relationship Specialty Start Date End Date Lanre Parekh DO [address] [place] [address] PCP - General FAMILY PRACTICE 09/07/22 documented as of this encounter
--- OUTSIDE RECORDS SUMMARY | 2024-07-09 08:48 | XMS_ITS | Encounter Summary ---
Author Organization [facility] Address [address] [place] [address]. [place], [place] [address] [place] [address] Care Team Providers Care Huc Name Role Phone Lanre Parekh DO Primary [...] Assigned at Male 07/01/2024 9:54 AM ASSISTANT PRODUCER Legal Sex Male 8:28 AM ASSISTANT PRODUCER Gender Identity Male 07/01/2024 9:54 AM ASSISTANT PRODUCER Sexual Orientation Not on file documented as of this encounter Plan of Treatment Not on file documented as of this encounter Visit Diagnoses Not on filedocumented in this encounter Additional Health Concerns Assessment Noted Time PHQ-9 Depression Total Score: 1 01/26/20 21 11:17 AM CDT documented as of this encounter Care Teams Huc Relationship Specialty Start Date End Date Lanre Parekh DO [address] [place] [address] PCP - General FAMILY PRACTICE 09/07/22 documented as of this encounter
--- OUTSIDE RECORDS SUMMARY | 2024-07-09 08:48 | XMS_ITS | Encounter Summary ---
Author Organization [facility] Address [address] [place] [address]. [place], [place] [address] [place] [address] Care Team Providers Care Clerical Grader Name Role Phone Lanre Parekh DO Primary [...] Sex Assigned at Male 07/01/2024 9:54 AM PRIMER SUPERVISOR Legal Sex Male 8:28 AM PRIMER SUPERVISOR Gender Identity Male 07/01/2024 9:54 AM PRIMER SUPERVISOR Sexual Orientation Not on file COVID-19 Exposure Response Date Recorded In the last 10 days, have yo u been in contact with someone who was confirmed or suspected to have Coronavirus/COVID-19? No / Unsure 09/07/2022 12:06 PM PRIMER SUPERVISOR documented as of this encounter Plan of Treatment Not on file documented as of this encounter Visit Diagnoses Not on filedocumented in this encounter Additional Health Concerns Assessment Noted Time PHQ-9 Depression Total Score: 1 01/26/20 21 11:17 AM CDT documented as of this encounter Care Teams Clerical Grader Relationship Specialty Start Date End Date Lanre Parekh, [address] [place] [address] PCP - General FAMILY PRACTICE 09/07/22 documented as of this encounter
--- OUTSIDE RECORDS SUMMARY | 2024-07-09 08:48 | XMS_ITS | Encounter Summary ---
Author Organization [facility] Address [address] [place] [address]. [place], [place] [address] [place] [address] Care Team Providers Care Tool Design Checker Name Role Phone Lanre Parekh DO Primary [...] Sex Assigned at Male 07/01/2024 9:54 AM GEAR TESTER Legal Sex Male 8:28 AM GEAR TESTER Gender Identity Male 07/01/2024 9:54 AM GEAR TESTER Sexual Orientation Not on file documented as of this encounter Plan of Treatment Not on file documented as of this encounter Visit Diagnoses Not on filedocumented in this encounter Additional Health Concerns Assessment Noted Time PHQ-9 Depression Total Score: 1 01/26/20 21 11:17 AM CDT documented as of this encounter Care Teams Tool Design Checker Relationship Specialty Start Date End Date Lanre Parekh DO [address] [place] [address] PCP - General FAMILY PRACTICE 09/07/22 documented as of this encounter
--- OUTSIDE RECORDS SUMMARY | 2024-07-09 08:48 | XMS_ITS | Encounter Summary ---
Author Organization [facility] Address [address] [place] [address]. [place], [place] [address] [place] [address] Care Team Providers Care Cat Driver Name Role Phone Lanre Parekh DO Primary Care Provider + Reason for Visit * Reason Comments Physical Encounter Details Date Type Department Care Team (Late st Contact Info) Description 06/16/2024 2:00 PM SENIOR RISK ANALYST Office Visit [facility] Family & Internal Medicine [facility] [address] [place] [address] Lanre Parekh DO [facility] [place] [address] Physical Social History Tobacco Use Types Packs/Day [...] Assigned at Male 07/01/2024 9:54 AM SENIOR RISK ANALYST Legal Sex Male 8:28 AM SENIOR RISK ANALYST Gender Identity Male 07/01/2024 9:54 AM SENIOR RISK ANALYST Sexual Orientation Not on file documented as of this encounter Last Filed Vital Signs Vital Sign Reading Time Taken Comments Blood Pressure 122/78 06/16/2024 2:10 PM SENIOR RISK ANALYST Pulse 81 06/16/2024 2:10 PM SENIOR RISK ANALYST Temperature 37.2 ??C (98.9 ??F) 06/16/2024 2:10 PM CS T Respiratory Rate 18 06/16/2024 2:10 PM SENIOR RISK ANALYST Oxygen Saturation 98% 06/16/2024 2:10 PM SENIOR RISK ANALYST Inhaled Oxygen Concentration - - Weight 89.2 kg (196 lb 11.2 oz) 06/16/2024 2:10 PM SENIOR RISK ANALYST Height 172.7 cm (5' 8 ) 06/16/2024 2:10 PM SENIOR RISK ANALYST Body Mass Index 29.91 06/16/2024 2:10 PM SENIOR RISK ANALYST documented in this encounter Progress Notes [...] Active Problem List Diagnosis Arthritis Crohn's disease ([facility]) Crohn's disease of both small and large intestine ([facility]) Generalized abdominal pain Diarrhea due to malabsorption ([facility]) History of high risk medication treatment Iritis Osteoporosis Chronic pharyngitis JALYN (obstructive sleep apnea) Past Medical History: Diagnosis Date Crohn's disease of both small and large intestine ([facility]) 01/25/2017 Overview: Onset: 2004. Phenotype and distribution: Stricturing Primarily involving the ileum with some concern for fistulizing disease though no evidence of fistula penetrating colon lumen during surgery in 2018 Medical therapies: Previously treated with prednisone for at least 2 continuous years, flagyl, Asacol, Azathioprine (0615-5598), Remicade ([id number], switched for insurance purposes), Hu Iritis Osteoporosis [...] Resource Strain: Low Risk (11/03/2022) Received from [facility], [facility] Overall Financial Resource Strain (CARDIA) Difficulty of Paying Living Expenses: Not hard at all Food Insecurity: No Food Insecurity (11/03/2022) Received from [facility], [facility] Hunger Vital Sign Worried About Running Out of Food in the Last Year: Never true Ran Out of Food in the Last Year: Never true Transportation Needs: No Transportation Needs (11/03/2022) Received from [facility], [facility] PRAPARE - Transportation Lack of Transportation (Medical): No Lack of Transportation (Non-Medical): No Physical Activity: Not on file Stress: Not on file Social Connections: Moderately Integrated (11/03/2022) Received from [facility], [facility] Social Connection and Isolation Panel [NHANES] Frequency of Communication with Friends and Family: More than three times a week Frequency of Social Gatherings with Friends and Family: Three times a week Attends [employer] Services: 1 to 4 times per year Active Member of Clubs or Organizations: No Attends Club or Organization Meetings: Never Marital Status: Intimate Partner Violence: Not on file Housing Stability: Low Risk (11/03/2022) Received from [facility], [facility] Housing Stability Vital Sign Unable to [...] disease without complication, unspecified gastrointestinal tract location ([facility]/HCC [facility]) - folic acid (FOLVITE) 1 MG tablet; [...] needed. Patient verbalized understanding. Lanre Parekh DO OR RISK ANALYST documented in this encounter Plan of Treatment Not on file documented as of this encounter Procedures Procedure Name Priority Date/Time Associated Diagnosis Comments TSH W/REFLEX Routine 06/26/2024 7:52 AM SENIOR RISK ANALYST Vitamin D deficiency Encounter for preventative adult health care examination Screening for lipid disorders Screening for endocrine, metabolic and immunity disorder VITAMIN D, 25 OH TOTAL Routine 06/26/2024 7:52 AM SENIOR RISK ANALYST Vitamin D deficiency Encounter for preventative adult health care examination Screening for lipid disorders Screening for endocrine, metabolic and immunity disorder LIPID PANEL Routine 06/26/2024 7:52 AM SENIOR RISK ANALYST Vitamin D deficiency Encounter for preventative adult health care examination Screening for lipid disorders Screening for endocrine, metabolic and immunity disorder URIC ACID BLOOD Routine 06/26/2024 7:52 AM SENIOR RISK ANALYST Vitamin D deficiency Encounter for preventative adult health care examination Screening for lipid disorders Screening for endocrine, metabolic and immunity disorder documented in this encounter Results * TSH W/REFLEX (06/26/2024 7:52 AM SENIOR RISK ANALYST) TSH 0.98 0.40 - 4.50 mIU/L [place] [place] 06/26/2024 7:52 AM SENIOR RISK ANALYST 06/26/2024 7:53 AM SENIOR RISK ANALYST Narrative Resulting Agency Comment Performing Organization Information: ?Site ID: [id number] ?Name: [facility] ?Address: [facility] [place] [address] ?Director: Hien Leavitt us Lanre Parekh DO LABORATORY Final Re sult [facility] - [place] [facility] [address] [address], * VITAMIN D, 25 OH ([facility] ONLY) (06/26/2024 7:52 AM SENIOR RISK ANALYST) [facility] VITAMIN D 25 HYDROXY TOTAL S/P/B 30 30 - 100 ng/mL [facility] Comment: Vitamin D Status ? 25-OH Vitamin D: Deficiency: ?<20 ng/mL Insufficiency: ? 20 - 29 ng/mL Optimal: ? > or = 30 ng/mL For 25-OH Vitamin D testing on patients on D2-supplementation and patients for whom quantitation of D2 and D3 fractions is required, the QuestAssureD(TM) 25-OH VIT D, (D2,D3), LC/MS/MS is recommended: order code 18388 (patients >2yrs). See Note 1 Note 1 For additional information, please refer to http://education.PinBridge/faq/AHR294 (This link is being provided for informational/ educational purposes only.) 06/26/2024 7:52 AM SENIOR RISK ANALYST 06/26/2024 7:53 AM SENIOR RISK ANALYST Narrative Resulting Agency Comment Performing Organization Information: ?Site ID: [id number] ?Name: [facility] ?Address: [address] [place] [address] ?Director: Hien Leavitt MD Lanre Parekh DO LABORATORY Final Re sult Performing Organization Address [facility] Co de Phone Number [facility] [address] [place] [address], * URIC ACID BLOOD (06/26/2024 7:52 AM SENIOR RISK ANALYST) URIC ACID 6.7 4.0 - 8.0 mg/dL [place] [place] Comment: Therapeutic target for gout patients: <6.0 mg/dL ?? 06/26/2024 7:52 AM SENIOR RISK ANALYST 06/26/2024 7:53 AM SENIOR RISK ANALYST Narrative Resulting Agency Comment Performing Organization Information: ?Site ID: ?Name: [facility] ?Address: [address] [place] [phone] ?Director: Hien Leavitt Lanre Parekh DO LABORATORY Final Re sult Performing Organization Address [facility] Co de Phone Number [facility] [address] [phone] * (ABNORMAL) LIPID PANEL (06/26/2024 7:52 AM SENIOR RISK ANALYST) CHOLESTEROL 120 <200 mg/dL [place] [place] HDL 34(L) > OR = 40 mg/dL [place] [place] TRIGLYCERIDES 72 <150 mg/dL [place] [place] LDL (CALCULATED) 71 mg/dL (calc) [place] [place] Comment: Reference range: <100 Desirable range <100 mg/dL for primary prevention; ?? <70 mg/dL for patients with CHD or diabetic patients with > or = 2 CHD risk factors. LDL-C is now calculated using the Edilberto-Bajwa calculation, which is a validated novel method providing better accuracy than the Friedewald equation in the estimation of LDL-C. Edilberto SS et al. JOSE ALBERTO. 2013;310(19): 4207-0965 (http://education.PinBridge/faq/ZHW495) CHOL/HDL RATIO 3.5 <5.0 (calc) [place] NON HDL CHOLESTEROL 86 <130 mg/dL (calc) [place] [place] Comment: For patients with diabetes plus 1 major ASCVD risk factor, treating to a non-HDL-C goal of <100 mg/dL (LDL-C of <70 mg/dL) is considered a therapeutic option. 06/26/2024 7:52 AM SENIOR RISK ANALYST 06/26/2024 7:53 AM SENIOR RISK ANALYST Narrative Resulting Agency Comment Performing Organization Information: ?Site ID: [id number] ?Name: [facility] ?Address: [address] [place] [phone] ?Director: Hien Leavitt us Lanre Parekh DO LABORATORY Final Re sult [facility] - [place] [facility] [address] [address], documented in this encounter Visit Diagnoses Diagnosis Encounter for preventative adult health care examination- Primary Anxiety Anxiety state, unspecified Vitamin D deficiency Unspecified vitamin D deficiency Screening for lipid disorders Screening for endocrine, metabolic and immunity disorder Crohn's disease without complication, unspecified gastrointestinal tract location ([facility]) BMI 29.0-29.9,adult Body Mass Index 29.0-29.9, adult documented in this encounter Additional Health Concerns Assessment Noted Time PHQ-9 Depression Total Score: 1 01/26/20 21 11:17 AM CDT documented as of this encounter Care Teams Cat Driver Relationship Specialty Start Date End Date Lanre Parekh DO [address] [place] [address] PCP - General FAMILY PRACTICE 09/07/22 documented as of this encounter
--- OUTSIDE RECORDS SUMMARY | 2024-07-09 08:48 | XMS_ITS | Encounter Summary ---
Author Organization [facility] Address [address] [place] [address]. [place], [place] [address] [place] [address] Care Team Providers Care Powder Room Attendant Name Role Phone Lanre Parekh DO Primary Care Provider + Reason for Visit * Reason Onset Date Comments Orders 06/07/2023 Encounter Details Date Type Department Care Team (Late st Contact Info) Description 06/07/2023 Telephone [facility] Family & Internal Medicine [facility] [address] [place] [address] Lanre Parekh DO [address] [place] [address] Orders Social History Tobacco Use Types Packs/Day [...] Sex Assigned at Male 07/01/2024 9:54 AM ARMORED CAR GUARD AND DRIVER Legal Sex Male 8:28 AM ARMORED CAR GUARD AND DRIVER Gender Identity Male 07/01/2024 9:54 AM ARMORED CAR GUARD AND DRIVER Sexual Orientation Not on file documented as of this encounter Progress Notes * Johanny Martin MA - 06/07/2023 4:05 PM CST Pt is scheduled next at 2. Pt has not contacted his GI Dr. yet, but he states he will. Request for records faxed to [facility] in [place] at [phone]. RED CAR GUARD AND DRIVER * Lanre Parekh DO - 06/07/2023 3:49 PM CST Let's schedule him for next at 2:00 in the interim. Has pt reached out to GI given his Crohn's diagnosis? If he has not, I would recommend this as well. If records not already requested, please do so. RED CAR GUARD AND DRIVER * Randi Zimmer MA - 06/07/2023 3:40 PM CST Muscle aches, chills, headache, diarrhea, nausea, mild abd pain. The patient states the abd pain moves around his abd. The patient states he was tested for covid, flu and strep. The tests were negative. Patient would like to use [facility] if labs are ordered. Next opening for patient is on Sunday. Patient states his sx are about the same. RED CAR GUARD AND DRIVER * Darleen Gonzalez - 06/07/2023 12:19 PM CST Pt [facility] to [facility] 06/07/23. They informed him to contact PCP to receive orders for stool testing. Unclear as to why. Please advise. RED CAR GUARD AND DRIVER documented in this encounter Plan of Treatment Not on file documented as of this encounter Visit Diagnoses Not on filedocumented in this encounter Additional Health Concerns Assessment Noted Time PHQ-9 Depression Total Score: 1 01/26/20 21 11:17 AM CDT documented as of this encounter Care Teams Powder Room Attendant Relationship Specialty Start Date End Date Lanre Parekh DO [facility] [place] [address] PCP - General FAMILY PRACTICE 09/07/22 documented as of this encounter
--- OUTSIDE RECORDS SUMMARY | 2024-07-09 08:48 | XMS_ITS | Encounter Summary ---
Author Organization [facility] Address [address] [place] [address]. [place], [place] [address] [place] [address] Care Team Providers Care Skirt Trimmer Name Role Phone Lanre Parekh DO Primary Care Provider + Encounter Details Date Type Department Care Team (Latest Contact Info) Description 06/14/2023 - 06/14/2023 11:59 PM RADIOPHARMACIST Hospital Encounter [facility] [address] [place] [address] Lanre Parekh DO [facility] [place] [place] [address] Discharge Disposition: Home or Self Care (Routine [...] Sex Assigned at Male 07/01/2024 9:54 AM RADIOPHARMACIST Legal Sex Male 8:28 AM RADIOPHARMACIST Gender Identity Male 07/01/2024 9:54 AM RADIOPHARMACIST Sexual Orientation Not on file documented as [...] documented as of this encounter Care Teams Skirt Trimmer Relationship Specialty Start Date End Date Lanre Parekh DO [address] [place] [address] PCP - General FAMILY PRACTICE 09/07/22 documented as of this encounter
--- OUTSIDE RECORDS SUMMARY | 2024-07-09 08:48 | XMS_ITS | Encounter Summary ---
Author Organization [facility] Address [address] [place] [address]. [place], [place] [address] [place] [address] Care Team Providers Care Charge Loader Name Role Phone Lanre Parekh DO Primary Care Provider + Reason for Visit * Reason Comments URI Tested positive covi d last night. Sx started Sunday. Encounter Details Date Type Department Care Team (Late st Contact Info) Description 07/14/2022 2:00 PM CABINET PROFESSIONAL Telemedicine [facility] Family & Internal Medicine [address] [phone] Lanre Parekh DO [address] [place] [address] URI (Tested positive covid last night. [...] Sex Assigned at Male 07/01/2024 9:54 AM CABINET PROFESSIONAL Legal Sex Male 8:28 AM CABINET PROFESSIONAL Gender Identity Male 07/01/2024 9:54 AM CABINET PROFESSIONAL Sexual Orientation Not on file COVID-19 Exposure Response Date Recorded In the last 10 days, have yo u been in contact with someone who was confirmed or suspected to have Coronavirus/COVID-19? Unable to assess 07/14/2022 7:33 AM CABINET PROFESSIONAL documented as of this encounter Progress Notes * Lanre Parekh, DO - 07/14/2022 2:00 PM CST Images from the original note were not included. GENERAL OFFICE VISIT Encounter Date: 07/14/2022 I introduced and identified myself, received verbal consent from the patient to proceed with this video visit and made the patient aware that the same confidentiality and information resource consultant practices apply. The patient joined the video [...] least 2 continuous years, flagyl, Asacol, Azathioprine ([id number]), Remicade ([id number], switched for insurance purposes), Hu ??? Iritis [...] chew,break or crush. 30 each 0 ??? Racine-3 Fatty Acids ([facility] FISH OIL) 1000 MG Cap ??? Probiotic Product (PROBIOTIC ADVANCED OR) ??? sildenafil (VIAGRA) 100 MG tablet Take 1/2 or 1 tablet ONE hour prior to activity on an empty stomach daily PRN ??? Turmeric Powder Take 1,500 mg by mouth. ??? vitamin D2, ergocalciferol, 33971 UNITS capsule Take 50,000 Units by mouth [...] ??? Multiple Vitamins-Minerals (MULTIVITAMIN ADULT OR) ??? Racine-3 Fatty Acids ([employer]S FISH OIL) 1000 MG Cap ??? Probiotic Product (PROBIOTIC ADVANCED OR) ??? sildenafil (VIAGRA) 100 MG tablet Take 1/2 or 1 tablet ONE hour prior to activity on an empty stomach daily PRN ??? Turmeric Powder Take 1,500 mg by mouth. ??? vitamin D2, ergocalciferol, 29552 UNITS capsule Take 50,000 Units by mouth [...] regular visits. Pt v/u. Lanre Parekh DO NET PROFESSIONAL documented in this encounter Plan of Treatment Not on file documented as of this encounter Visit Diagnoses Diagnosis COVID-19- Primary documented in this encounter Additional Health Concerns Assessment Noted Time PHQ-9 Depression Total Score: 1 01/26/20 21 11:17 AM CDT documented as of this encounter Care Teams Charge Loader Relationship Specialty Start Date End Date Lanre Parekh DO [address] [place] [address] PCP - General FAMILY PRACTICE 06/28/18 09/06/22 documented as of this encounter
--- OUTSIDE RECORDS SUMMARY | 2024-07-09 08:48 | XMS_ITS | Clinical Summary ---
Author Organization [facility] Address [address] [place] [address]. 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 Phenotype and distribution: Stricturing Primarily involving the ileum with some concern for fistulizing disease though no evidence of fistula penetrating colon lumen during surgery in 2018 Medical therapies: Previously treated with prednisone for at least 2 continuous years, flagyl, Asacol, Azathioprine ([id number]), Remicade ([id number], switched for insurance purposes), Humira ([id number], 6-month insurance interruption, re- initiation 10/2016, with [...] health for low bone mass Crohn's disease ([facility]) 01/06/2008 Overview (07/05/2018): Overview: Added automatically from request for surgery [id number] Encounters Date Type Department Care Team Description 07/01/2024 9:40 AM VALLEZ FILTER OPERATOR Office Visit [facility] Family & Internal Medicine [address] [address] Lanre Parekh, DO URI (Congestion, fatigue and sore throat for 3 days. The patient states he is having hernia repair surgery on 07/07/2023 ) 07/01/2024 - 07/01/2024 11:59 PM VALLEZ FILTER OPERATOR Hospital Encounter [facility] [address] [place] [address] Lanre Parekh, DO Discharge Disposition: Home or Self Care (Routine Discharge) 07/01/2024 Travel 06/16/2024 2:00 PM VALLEZ FILTER OPERATOR Office Visit [facility] Family & Internal Medicine [address] [phone] Lanre Parekh P, DO Physical 06/16/2024 Travel [...] Sex Assigned at Male 07/01/2024 9:54 AM VALLEZ FILTER OPERATOR Legal Sex Male 8:28 AM VALLEZ FILTER OPERATOR Gender Identity Male 07/01/2024 9:54 AM VALLEZ FILTER OPERATOR Sexual Orientation Not on file Last Filed Vital Signs Vital Sign Reading Time Taken Comments Blood Pressure 126/86 07/01/2024 9:55 AM VALLEZ FILTER OPERATOR Pulse 86 07/01/2024 9:55 AM VALLEZ FILTER OPERATOR Temperature 36.6 ??C (97.8 ??F) 07/01/2024 9:55 AM CS T Respiratory Rate 16 07/01/2024 9:55 AM VALLEZ FILTER OPERATOR Oxygen Saturation 98% 07/01/2024 9:55 AM VALLEZ FILTER OPERATOR Inhaled Oxygen Concentration - - Weight 89.8 kg (198 lb) 07/01/2024 9:55 AM VALLEZ FILTER OPERATOR Height 172.7 cm (5' 8 ) 07/01/2024 9:55 AM VALLEZ FILTER OPERATOR Body Mass Index 30.11 07/01/2024 9:55 AM VALLEZ FILTER OPERATOR Plan of Treatment Health Maintenance Due Date [...] (COVID 19) PCR Routine 07/01/2024 10:33 AM VALLEZ FILTER OPERATOR Acute cough CULTURE STREP A Routine 07/01/2024 10:33 AM VALLEZ FILTER OPERATOR Acute cough STREP A RAPID Routine 07/01/2024 Acute cough CORONAVIRUS (COVID-19) INFLUENZA A & B ANTIGEN IA PANEL Routine 07/01/2024 Acute cough TSH W/REFLEX Routine 06/26/2024 7:52 AM VALLEZ FILTER OPERATOR Vitamin D deficiency Encounter for preventative adult health care examination Screening for lipid disorders Screening for endocrine, metabolic and immunity disorder VITAMIN D, 25 OH TOTAL Routine 06/26/2024 7:52 AM VALLEZ FILTER OPERATOR Vitamin D deficiency Encounter for preventative adult health care examination Screening for lipid disorders Screening for endocrine, metabolic and immunity disorder URIC ACID BLOOD Routine 06/26/2024 7:52 AM VALLEZ FILTER OPERATOR Vitamin D deficiency Encounter for preventative adult health care examination Screening for lipid disorders Screening for endocrine, metabolic and immunity disorder LIPID PANEL Routine 06/26/2024 7:52 AM VALLEZ FILTER OPERATOR Vitamin D deficiency Encounter for preventative adult health care examination Screening for lipid disorders Screening for endocrine, metabolic and immunity disorder HEPATITIS C ANTIBODY Routine 06/14/2023 2:36 PM VALLEZ FILTER OPERATOR Need for hepatitis C screening test Screening for lipid disorders Annual physical exam from Last 3 Months or Most Recently Relevant to Health Maintenance Results * CULTURE STREP A (MG/SJS/SMD Only) (07/01/2024 10:33 AM VALLEZ FILTER OPERATOR) THROAT CULTURE STREP A ONLY Negative for Group A Streptococci Negative for Group A Streptococci 07/02/2024 2:51 PM VALLEZ FILTER OPERATOR [facility] STRUCTURE OF ANTERIOR PORTION OF NECK / Unknown 07/01/2024 10:33 AM VALLEZ FILTER OPERATOR Lanre Parekh DO MICROBIOLOGY - GENERAL O RDERABLES Final Result [facility] [address] [place] [address], [place] [phone] * CORONAVIRUS (COVID 19) PCR (07/01/2024 10:33 AM VALLEZ FILTER OPERATOR) SPEC DESCRIPTION NASAL 07/01/20 24 2:01 PM VALLEZ FILTER OPERATOR [facility] CORONAVIRUS SARS COV 2 PCR (RESP) NEGATIVE NEGATIVE 07/02/2024 4:06 PM VALLEZ FILTER OPERATOR [facility] Comment: THE SARS-CoV-2 TEST HAS BEEN AUTHORIZED BY THE FDA UNDER AN EUA FOR USE BY AUTHORIZED LABORATORIES. PERFORMED BY NUCLEIC ACID AMPLIFICATION PCR NASAL STRUCTURE / Unknown 07/01/2024 10:33 AM VALLEZ FILTER OPERATOR Lanre Soni Lucisaiahefgarrett DO MICROBIOLOGY - GENERAL O RDERABLES Final Result Performing Organization Address City/[facility] Co de Phone Number [facility] [address] [place] [address], [place] [phone] * CORONAVIRUS (COVID-19) INFLUENZA A & B ANTIGEN IA PANEL (07/01/2024) Pathologist [facility] CORONAVIRUS ANTIGEN IA NEGATIVE NEGATIVE [facility] INFLUENZA A NEGATIVE NEGATIVE [facility] INFLUENZA B NEGATIVE NEGATIVE [facility] Internal Control: VALID VALID [facility] NASAL STRUCTURE / Unknown 07/01/2024 Lanre P Izabella DO MICROBIOLOGY - GENERAL O RDERABLES Final Result Performing Organization Address [facility] Co de Phone Number [address] [address], [place] * STREP A RAPID (07/01/2024) Pathologist [facility] RAPID STREP TEST NEGATIVE NEGATIVE [facility] Internal Control: VALID VALID [facility] STRUCTURE OF ANTERIOR PORTION OF NECK / Unknown 07/01/2024 us Lanre P Lucisaiahefgarrett DO MICROBIOLOGY - GENERAL O RDERABLES Final Result Performing Organization Address City/[facility] Co de Phone Number [facility] [address] [place] [address], [place] * TSH W/REFLEX (06/26/2024 7:52 AM VALLEZ FILTER OPERATOR) Pathologist [facility] TSH 0.98 0.40 - 4.50 mIU/L [facility] [place] 06/26/2024 7:52 AM VALLEZ FILTER OPERATOR 06/26/2024 7:53 AM VALLEZ FILTER OPERATOR Narrative Resulting Agency Comment Performing Organization Information: ?Site ID: [place] ?Name: [facility] ?Address: [address] [place] [address] ?Director: Hien Leavitt Lanre Parekh DO LABORATORY Final Re sult [facility] [place] [address] [place] [address], * VITAMIN D, 25 OH ([facility] and [facility] ONLY) (06/26/2024 7:52 AM VALLEZ FILTER OPERATOR) VITAMIN D 25 HYDROXY TOTAL S/P/B 30 30 - 100 ng/mL [facility] Comment: Vitamin D Status ? 25-OH Vitamin D: Deficiency: ?<20 ng/mL Insufficiency: ? 20 - 29 ng/mL Optimal: ? > or = 30 ng/mL For 25-OH Vitamin D testing on patients on D2-supplementation and patients for whom quantitation of D2 and D3 fractions is required, the [facility]ure[facility]() 25-OH VIT D, (D2,D3), LC/MS/MS is recommended: order code [id number] (patients >2yrs). See Note 1 Note 1 For additional information, please refer to http://education.Demandforce.Action Online Entertainment/faq/MIP936 (This link is being provided for informational/ educational purposes only.) 06/26/2024 7:52 AM VALLEZ FILTER OPERATOR 06/26/2024 7:53 AM VALLEZ FILTER OPERATOR Narrative Resulting Agency Comment Performing Organization Information: ?Site ID: [place] ?Name: [facility] ?Address: [address] [place] [address] ?Director: Hien Leavitt MD Lanre Parekh DO LABORATORY Final Re sult [facility] [place] [address] [place] [address] [address], * (ABNORMAL) LIPID PANEL (06/26/2024 7:52 AM VALLEZ FILTER OPERATOR) CHOLESTEROL 120 <200 mg/dL [facility] [place] HDL 34(L) > OR = 40 mg/dL [facility] [place] TRIGLYCERIDES 72 <150 mg/dL [facility] [place] LDL (CALCULATED) 71 mg/dL (calc) [facility] [place] Comment: Reference range: <100 Desirable range <100 mg/dL for primary prevention; ?? <70 mg/dL for patients with CHD or diabetic patients with > or = 2 CHD risk factors. LDL-C is now calculated using the Edilberto-Garett calculation, which is a validated novel method providing better accuracy than the Friedewald equation in the estimation of LDL-C. Edilberto SS et al. JOSE ALBERTO. 2013;310(19): 0086-7071 (http://education.Demandforce.[employer] Online Entertainment/faq/BSI632) CHOL/HDL RATIO 3.5 <5.0 (calc) [facility] NON HDL CHOLESTEROL 86 <130 mg/dL (calc) [facility] [place] Comment: For patients with diabetes plus 1 major ASCVD risk factor, treating to a non-HDL-C goal of <100 mg/dL (LDL-C of <70 mg/dL) is considered a therapeutic option. 06/26/2024 7:52 AM VALLEZ FILTER OPERATOR 06/26/2024 7:53 AM VALLEZ FILTER OPERATOR Narrative Resulting Agency Comment Performing Organization Information: ?Site ID: [place] ?Name: [facility] ?Address: [address] [place] [address] ?Director: Hien Leavitt Lanre Parekh DO LABORATORY Final Re sult Performing Organization Address [facility] Co de Phone Number [facility] [address] * URIC ACID BLOOD (06/26/2024 7:52 AM VALLEZ FILTER OPERATOR) Pathologist [facility] URIC ACID 6.7 4.0 - 8.0 mg/dL [facility] [place] Comment: Therapeutic target for gout patients: <6.0 mg/dL ?? 06/26/2024 7:52 AM VALLEZ FILTER OPERATOR 06/26/2024 7:53 AM VALLEZ FILTER OPERATOR Narrative Resulting Agency Comment Performing Organization Information: ?Site ID: ?Name: [facility] [place] [facility] ?Address: [address] [place] [address] [place] [address] ?Director: Hien Leavitt Lanre Parekh DO LABORATORY Final Re sult Performing Organization Address [facility] Co de Phone Number [facility] [address], * HEPATITIS C ANTIBODY ([facility] ONLY) (06/14/2023 2:36 PM VALLEZ FILTER OPERATOR) Pathologist [facility] HEPATITIS C AB NON-REACTI VE NON-REACT JESSICA 06/14/2023 10:36 PM VALLEZ FILTER OPER[address] [facility] Comment: ANTIBODIES TO HCV NOT DETECTED. DOES NOT EXCLUDE THE POSSIBILITY OF EXPOSURE TO HCV. 06/14/2023 2:36 PM VALLEZ FILTER OPERATOR Lanre Parekh DO LABORATORY Final Re sult Performing Organization Address [facility] Co de Phone Number [facility] [address] [place] [address], [id number] from Last 3 Months or Most Recently Relevant to Health Maintenance Insurance Care Teams Od Grinder Operator Relationship Specialty Start Date End Date Lanre Parekh DO [address] [place] [address] PCP - General FAMILY PRACTICE 09/07/22
--- OUTSIDE RECORDS SUMMARY | 2024-07-09 08:48 | XMS_ITS | Encounter Summary ---
Author Organization [facility] Address [address] [place] [address]. [place], [place] [address] [place] [address] Care Team Providers Care Technical Document Writer Name Role Phone Lanre Parekh DO Primary [...] Sex Assigned at Male 07/01/2024 9:54 AM DEPARTMENT ASSISTANT Legal Sex Male 8:28 AM DEPARTMENT ASSISTANT Gender Identity Male 07/01/2024 9:54 AM DEPARTMENT ASSISTANT Sexual Orientation Not on file documented as of this encounter Plan of Treatment Not on file documented as of this encounter Visit Diagnoses Not on filedocumented in this encounter Additional Health Concerns Assessment Noted Time PHQ-9 Depression Total Score: 1 01/26/20 21 11:17 AM CDT documented as of this encounter Care Teams Technical Document Writer Relationship Specialty Start Date End Date Lanre Parekh DO [address] [place] [address] PCP - General FAMILY PRACTICE 09/07/22 documented as of this encounter
--- OUTSIDE RECORDS SUMMARY | 2024-07-09 08:48 | XMS_ITS | Encounter Summary ---
Author Organization [facility] Address [address] [place] [address]. [place], [place] [address] [place] [address] Care Team Providers Care Pathology Tech Name Role Phone Lanre Parekh DO [...] Sex Assigned at Male 07/01/2024 9:54 AM OTC CLERK Legal Sex Male 8:28 AM OTC CLERK Gender Identity Male 07/01/2024 9:54 AM OTC CLERK Sexual Orientation Not on file documented as of this encounter Plan of Treatment Not on file documented as of this encounter Visit Diagnoses Not on filedocumented in this encounter Additional Health Concerns Assessment Noted Time PHQ-9 Depression Total Score: 1 01/26/20 21 11:17 AM CDT documented as of this encounter Care Teams Pathology Tech Relationship Specialty Start Date End Date Lanre Parekh DO [address] [place] [address] PCP - General FAMILY PRACTICE 09/07/22 documented as of this encounter
--- OUTSIDE RECORDS SUMMARY | 2024-07-09 08:48 | XMS_ITS | Encounter Summary ---
Author Organization [facility] Address [address] [place] [address]. [place], [place] [address] [place] [address] Care Team Providers Care Rod Cup Filler Name Role Phone Lanre Parekh DO Primary Care Provider + Reason for Visit * Reason Onset Date Comments Downtime Visit 03/16/2023 Encounter Details Date Type Department Care Team (Late st Contact Info) Description 02/26/2023 2:40 PM CDT Office Visit [facility] Family & Internal Medicine [place] [place] [address] Lanre Parekh DO [facility] [place], [place] [id number] Downtime Visit Social History Tobacco Use Types [...] Sex Assigned at Male 07/01/2024 9:54 AM COMBER SETTER Legal Sex Male 8:28 AM COMBER SETTER Gender Identity Male 07/01/2024 9:54 AM COMBER SETTER Sexual Orientation Not on file documented as [...] may be found under the media tab. ER SETTER * Deena Rudolph RN - 02/26/2023 2:40 [...] documented as of this encounter Care Teams Rod Cup Filler Relationship Specialty Start Date End Date Lanre Parekh DO [address] [place], [place] [phone] PCP - General FAMILY PRACTICE 09/07/22 documented as of this encounter
--- OUTSIDE RECORDS SUMMARY | 2024-07-09 08:48 | XMS_ITS | Encounter Summary ---
Author Organization [facility] Address [address] [place] [address]. [place], [place] [address] [place] [address] Care Team Providers Care Biztalk Administrator Name Role Phone Lanre Parekh DO Primary Care Provider + Reason for Visit * Reason Comments Strep Throat The patient presents for follow up from + [facility]. Patient reports dizziness is better. Bumps are still present. Encounter Details Date Type Department Care Team (Late st Contact Info) Description 09/26/2023 2:20 PM CDT Office Visit [facility] Family & Internal Medicine [address] [phone] Lanre Parekh DO [address] [place] [address] Strep Throat (The patient presents for follow up from + strep test at [facility]. Patient reports dizziness is better. Bumps [...] Assigned at Male 07/01/2024 9:54 AM RESTAURANT RECRUITER Legal Sex Male 8:28 AM RESTAURANT RECRUITER Gender Identity Male 07/01/2024 9:54 AM RESTAURANT RECRUITER Sexual Orientation Not on file documented as [...] for follow up from + strep test [facility]. Patient reports dizziness is better. Bumps [...] disease of both small and large intestine ([facility]) 01/25/2017 Overview: Onset: 2004. Phenotype and distribution: Stricturing Primarily involving the ileum with some concern for fistulizing disease though no evidence of fistula penetrating colon lumen during surgery in 2018 Medical therapies: Previously treated with prednisone for at least 2 continuous years, flagyl, Asacol, Azathioprine (5822-0460), Remicade ([id number], switched for insurance purposes), Hu Iritis Osteoporosis [...] the day of the encounter. This includes vbjc-wg-[id number] and ekh-usxv-ij-face time I provided on the day of [...] documented as of this encounter Care Teams Biztalk Administrator Relationship Specialty Start Date End Date Larne Parekh DO [address] [place] [address] PCP - General FAMILY PRACTICE 09/07/22 documented as of this encounter
--- OUTSIDE RECORDS SUMMARY | 2024-07-09 08:48 | XMS_ITS | Encounter Summary ---
Author Organization [facility] Address [address] [place] [address]. [place], [place] [address] [place] [address] Care Team Providers Care Soccer Player Name Role Phone Lanre Parekh DO Primary [...] Sex Assigned at Male 07/01/2024 9:54 AM SOLE ROUNDING MACHINE OPERATOR Legal Sex Male 8:28 AM SOLE ROUNDING MACHINE OPERATOR Gender Identity Male 07/01/2024 9:54 AM SOLE ROUNDING MACHINE OPERATOR Sexual Orientation Not on file documented as of this encounter Plan of Treatment Not on file documented as of this encounter Visit Diagnoses Not on filedocumented in this encounter Additional Health Concerns Assessment Noted Time PHQ-9 Depression Total Score: 1 01/26/20 21 11:17 AM CDT documented as of this encounter Care Teams Soccer Player Relationship Specialty Start Date End Date Lanre Parekh DO [address] [place] [address] PCP - General FAMILY PRACTICE 09/07/22 documented as of this encounter
--- OUTSIDE RECORDS SUMMARY | 2024-07-09 08:48 | XMS_ITS | Encounter Summary ---
Author Organization [facility] Address [address] [place] [address]. [place], [place] [address] [place] [address] Care Team Providers Care Credit Assessment Analyst Name Role Phone Lanre Parekh DO [...] Sex Assigned at Male 07/01/2024 9:54 AM BORING MACHINE OPERATOR PRODUCTION Legal Sex Male 8:28 AM BORING MACHINE OPERATOR PRODUCTION Gender Identity Male 07/01/2024 9:54 AM BORING MACHINE OPERATOR PRODUCTION Sexual Orientation Not on file documented as of this encounter Plan of Treatment Not on file documented as of this encounter Visit Diagnoses Not on filedocumented in this encounter Additional Health Concerns Assessment Noted Time PHQ-9 Depression Total Score: 1 01/26/20 21 11:17 AM CDT documented as of this encounter Care Teams Credit Assessment Analyst Relationship Specialty Start Date End Date Lanre Parekh DO [address] [place] [address] PCP - General FAMILY PRACTICE 09/07/22 documented as of this encounter
--- OUTSIDE RECORDS SUMMARY | 2024-07-09 08:48 | XMS_ITS | Encounter Summary ---
Author Organization [facility] Address [address] [place] [address]. [place], [place] [address] [place] [address] Care Team Providers Care Sound Effects Supervisor Name Role Phone Lanre Parekh DO [...] Sex Assigned at Male 07/01/2024 9:54 AM EMBOSSER APPRENTICE Legal Sex Male 8:28 AM EMBOSSER APPRENTICE Gender Identity Male 07/01/2024 9:54 AM EMBOSSER APPRENTICE Sexual Orientation Not on file COVID-19 Exposure Response Date Recorded In the last 10 days, have yo u been in contact with someone who was confirmed or suspected to have Coronavirus/COVID-19? Unable to assess 07/14/2022 7:33 AM EMBOSSER APPRENTICE documented as of this encounter Plan of Treatment Not on file documented as of this encounter Visit Diagnoses Not on filedocumented in this encounter Additional Health Concerns Assessment Noted Time PHQ-9 Depression Total Score: 1 01/26/20 21 11:17 AM CDT documented as of this encounter Care Teams Sound Effects Supervisor Relationship Specialty Start Date End Date Lanre Parekh DO [address] [place] [address] PCP - General FAMILY PRACTICE 06/28/18 09/06/22 documented as of this encounter
--- OUTSIDE RECORDS SUMMARY | 2024-07-09 08:48 | XMS_ITS | Encounter Summary ---
Author Organization [facility] Address [address] [place] [address]. [place], [place] [address] [place] [address] Care Team Providers Care Web Services Developer Name Role Phone Lanre Parekh DO Primary Care Provider + Reason for Visit * Reason Onset Date Comments Results 07/18/2023 Encounter Details Date Type Department Care Team (Late st Contact Info) Description 07/18/2023 Telephone [facility] Medical Group Family & Internal Medicine [facility] [address] [place] [address] Lanre Parekh DO [address] [place], [place] [phone] Results Social History Tobacco Use Types Packs/Day [...] Sex Assigned at Male 07/01/2024 9:54 AM RN PSYCHIATRIC Legal Sex Male 8:28 AM RN PSYCHIATRIC Gender Identity Male 07/01/2024 9:54 AM RN PSYCHIATRIC Sexual Orientation Not on file documented as of this encounter Progress Notes * Olena Coates MA - 07/18/2023 8:27 AM CST Patient contacted and informed of results and recommendations. Will call back for referral if sx donot improve. tn PSYCHIATRIC * Olena Coates MA - 07/18/2023 8:26 AM CST ----- Message from Lanre Parekh DO sent at 07/16/2023 9:10 AM RN PSYCHIATRIC ----- All testing shows no clear infectious etiology of sore throat. Would consider referral to ENT if symptoms continue. PSYCHIATRIC documented in this encounter Plan of Treatment Not on file documented as of this encounter Visit Diagnoses Not on filedocumented in this encounter Additional Health Concerns Assessment Noted Time PHQ-9 Depression Total Score: 1 01/26/20 21 11:17 AM CDT documented as of this encounter Care Teams Web Services Developer Relationship Specialty Start Date End Date Lanre Parekh DO [address] [place] [address] PCP - General FAMILY PRACTICE 09/07/22 documented as of this encounter
--- OUTSIDE RECORDS SUMMARY | 2024-07-09 08:48 | XMS_ITS | Encounter Summary ---
Author Organization [facility] Address [address] [place] [address]. [place], [place] [phone] [place] [address] Care Team Providers Care Central Services Tech Name Role Phone Lanre Parekh DO Primary Care Provider + Reason for Visit * Reason Onset Date Comments [place] 09/24/2023 Encounter Details Date Type Department Care Team (Late st Contact Info) Description 09/24/2023 Telephone [facility] Medical Group Family & Internal Medicine [facility] [address] [place] [address] Lanre Parekh DO [address] [place], [place] [phone] [place] Social History Tobacco Use Types Packs/Day [...] Sex Assigned at Male 07/01/2024 9:54 AM LINEN SORTER Legal Sex Male 8:28 AM LINEN SORTER Gender Identity Male 07/01/2024 9:54 AM LINEN SORTER Sexual Orientation Not on file documented as of this encounter Progress Notes * Francesca Haywood RN - 09/24/2023 2:35 PM CDT Patient's called in stating that the patient has several swollen lymph nodes the front and back of neck/head. Patient is also having dizziness,ear pain and just not feeling well. No available appointments. Advised [facility] in clinic. Patient verbalized understanding. Opportunity given [...] documented as of this encounter Care Teams Central Services Tech Relationship Specialty Start Date End Date Lanre Parekh DO [address] [place] [address] PCP - General FAMILY PRACTICE 09/07/22 documented as of this encounter
--- OUTSIDE RECORDS SUMMARY | 2024-07-09 08:48 | XMS_ITS | Encounter Summary ---
Author Organization [facility] Address [address] [place] [address]. [place], [place] [address] [place] [address] Care Team Providers Care Bobbin Fixer Name Role Phone Lanre Parekh DO Primary Care Provider + Reason for Visit * Reason Comments Strep Throat The patient states h e finished abx yesterday and woke up with a sore throat this morning. Patient was on amoxicillin. The patient was seen at [facility] urgent care in [place]. Encounter Details Date Type Department Care Team (Late st Contact Info) Description 07/11/2023 9:00 AM AUTOMATIC I THREADING MACHINE FEEDER Office Visit [facility] Medical Group Family & Internal Medicine [address] [address] Lanre Parekh DO [address] [place] [address] [phone] Strep Throat (The patient states he finished abx yesterday and woke up with a sore throat this morning. Patient was on amoxicillin. The patient was seen at [facility] in [place]. /) Social History Tobacco Use Types Packs/Day [...] Sex Assigned at Male 07/01/2024 9:54 AM AUTOMATIC I THREADING MACHINE FEEDER Legal Sex Male 8:28 AM AUTOMATIC I THREADING MACHINE FEEDER Gender Identity Male 07/01/2024 9:54 AM AUTOMATIC I THREADING MACHINE FEEDER Sexual Orientation Not on file documented as of this encounter Last Filed Vital Signs Vital Sign Reading Time Taken Comments Blood Pressure 120/78 07/11/2023 9:05 AM AUTOMATIC I THREADING MACHINE FEEDER Pulse 73 07/11/2023 9:05 AM AUTOMATIC I THREADING MACHINE FEEDER Temperature 36.4 ??C (97.5 ??F) 07/11/2023 9:05 AM CS T Respiratory Rate 16 07/11/2023 9:05 AM AUTOMATIC I THREADING MACHINE FEEDER Oxygen Saturation 98% 07/11/2023 9:05 AM AUTOMATIC I THREADING MACHINE FEEDER Inhaled Oxygen Concentration - - Weight 90.9 kg (200 lb 6.4 oz) 07/11/2023 9:05 A M AUTOMATIC I THREADING MACHINE FEEDER Height 172.7 cm (5' 8 ) 07/11/2023 9:05 AM AUTOMATIC I THREADING MACHINE FEEDER Body Mass Index 30.47 07/11/2023 9:05 AM AUTOMATIC I THREADING MACHINE FEEDER documented in this encounter Progress Notes * Lanre Parekh, - 07/11/2023 9:00 AM CST Images from the original note were not included. GENERAL OFFICE VISIT Encounter Date: 07/11/2023 Chief Complaint: 32-year-old male presents for Strep Throat (The patient states he finished abx yesterday and woke up with a sore throat this morning. Patient was on amoxicillin. The patient was seen at [facility] care in [place]. /) HPI: Pt presents for sore throat. [...] Problem List Diagnosis Arthritis Crohn's disease (HHS/HCC) ([facility]) Crohn's disease of both small and large intestine ([facility]/HCC) Generalized abdominal pain Diarrhea due to malabsorption ([facility]/HCC) History of high risk medication treatment Iritis Osteoporosis Chronic pharyngitis JALYN (obstructive sleep apnea) Past Medical History: Diagnosis Date Crohn's disease of both small and large intestine ([facility]/HCC) 01/25/2017 Overview: Onset: 2004. Phenotype and distribution: Stricturing Primarily involving the ileum with some concern for fistulizing disease though no evidence of fistula penetrating colon lumen during surgery in 2018 Medical therapies: Previously treated with prednisone for at least 2 continuous years, flagyl, Asacol, Azathioprine (4286-1198), Remicade (9998-0270, switched for insurance purposes), Hu Iritis Osteoporosis [...] these results. Pt v/u. Lanre Parekh DO MATIC I THREADING MACHINE FEEDER documented in this encounter Plan of Treatment Not on file documented as of this encounter Procedures Procedure Name Priority Date/Time Associated Diagnosis Comments YUNI ALBERTS VIRUS Routine 07/11/2023 12 :05 PM AUTOMATIC I THREADING MACHINE FEEDER Pharyngitis, unspecified etiology CMV ANTIBODY, IGM Routine 07/11/2023 12: 05 PM AUTOMATIC I THREADING MACHINE FEEDER Pharyngitis, unspecified etiology CMV ANTIBODY IGG Routine 07/11/2023 12:0 5 PM AUTOMATIC I THREADING MACHINE FEEDER Pharyngitis, unspecified etiology CULTURE STREP A Routine 07/11/2023 9:25 AM AUTOMATIC I THREADING MACHINE FEEDER Sore throat RAPID STREP A Routine 07/11/2023 Sore throat documented in this encounter Results * CMV ANTIBODY IGG (07/11/2023 12:05 PM AUTOMATIC I THREADING MACHINE FEEDER) CMV IGG <0.60 U/mL [employer] [facility] Comment: ? U/mL ? Interpretation ? ----- ? <0.60 ? Negative ? 0.60-0.69 ? Equivocal ? > or = 0.70 ?? 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 It does not differentiate between an active or past infection. 07/11/2023 12:0 5 PM AUTOMATIC I THREADING MACHINE FEEDER 07/11/2023 12:06 PM AUTOMATIC I THREADING MACHINE FEEDER Narrative Resulting Agency Comment Performing Organization Information: ?Site ID: ROMEO ?Name: Angely Rodgers ?Address: [address] [id number] ?Director: Hien Leavitt MD Lanre Parekh DO LABORATORY Final Re sult [facility]DERS [facility] [place] [address] [place] [address], * CMV ANTIBODY, IGM (07/11/2023 12:05 PM AUTOMATIC I THREADING MACHINE FEEDER) CMV IGM <30.00 AU/mL [facility] NISHI [...] or more weeks. 07/11/2023 12:0 5 PM AUTOMATIC I THREADING MACHINE FEEDER 07/11/2023 12:06 PM AUTOMATIC I THREADING MACHINE FEEDER Narrative Resulting Agency Comment Performing Organization Information: ?Site ID: [facility]OMEO ?Name: Angely Rodgers ?Address: [address] [address] ?Director: Hien Leavitt MD Lanre Soni Parekh DO LABORATORY Final Ana Laura roberts [employer] [facility] - [facility]ESSENIA ORDERS [employer] [facility] [address] [address], [place] * (ABNORMAL) YUNI ALBERTS VIRUS (07/11/2023 12:05 PM AUTOMATIC I THREADING MACHINE FEEDER) EBV VCA IGM <36.00 U/mL [employer] [facility] Comment: ?U/mL ?Interpretation ?---- ?<36.00 ?Negative ?36.00-43.99 [...] ? >21.99 ? Positive [employer] Comment: Suggestive of a past Yuni-Alberts virus infection. In infants, a similar pattern may occur as a result of passive maternal transfer of antibody. 07/11/2023 12:0 5 PM AUTOMATIC I THREADING MACHINE FEEDER 07/11/2023 12:06 PM AUTOMATIC I THREADING MACHINE FEEDER Narrative Resulting Agency Comment Performing Organization Information: ?Site ID: MD ?Name: [employer] ?Address: [id number] [place] [id number] ?Director: Hien Leavitt MD Lanre Parekh DO LABORATORY Final Re sult Performing Organization Address City/[facility] Co de Phone Number [employer] [facility] - JESSENIA ORDERS [employer] [facility] [id number] [place] [address], * CULTURE STREP A (MG/SJS/SMD Only) (07/11/2023 9:25 AM AUTOMATIC I THREADING MACHINE FEEDER) THROAT CULTURE STREP A ONLY Negative for Group A Streptococci Negative for Group A Streptococci 07/12/2023 1:42 PM AUTOMATIC I THREADING MACHINE FEEDER [facility] STRUCTURE OF ANTERIOR PORTION OF NECK / Unknown 07/11/2023 9:25 AM AUTOMATIC I THREADING MACHINE FEEDER Lanre Parekh DO MICROBIOLOGY - GENERAL O RDERABLES Final Result Performing Organization Address [facility] Co de Phone Number [facility] [address] [place] [address], * RAPID STREP A (07/11/2023) RAPID STREP TEST NEGATIVE NEGATIVE [facility] Internal Control: VALID VALID [facility] STRUCTURE OF ANTERIOR PORTION OF NECK / Unknown 07/11/2023 Lanre Parekh DO MICROBIOLOGY - GENERAL O RDERABLES Final Result [facility] [address] [place] [address], documented in this encounter Visit Diagnoses Diagnosis Pharyngitis, unspecified etiology- Primary Sore throat Acute pharyngitis documented in this encounter Additional Health Concerns Assessment Noted Time PHQ-9 Depression Total Score: 1 01/26/20 21 11:17 AM CDT documented as of this encounter Care Teams Bobbin Fixer Relationship Specialty Start Date End Date Lanre Parekh DO [address] [place] [address] PCP - General FAMILY PRACTICE 09/07/22 documented as of this encounter
--- OUTSIDE RECORDS SUMMARY | 2024-07-09 08:48 | XMS_ITS | Encounter Summary ---
Author Organization [facility] Address [address] [place] [address]. [place], [place] [address] [place] [address] Care Team Providers Care Filler Block Inserter Remover Name Role Phone Lanre Parekh DO Primary Care Provider + Reason for Visit * Reason Comments URI Congestion, fatigue and sore throat for 3 days. The patient states he is having hernia repair surgery on 07/07/2023 Encounter Details Date Type Department Care Team (Late st Contact Info) Description 07/01/2024 9:40 AM CRANKSHAFT STRAIGHTENER Office Visit [facility] Medical Group Family & Internal Medicine [address] [phone] Lanre Parekh DO [address] [place] [address] [phone] URI (Congestion, fatigue and sore throat for [...] Sex Assigned at Male 07/01/2024 9:54 AM CRANKSHAFT STRAIGHTENER Legal Sex Male 8:28 AM CRANKSHAFT STRAIGHTENER Gender Identity Male 07/01/2024 9:54 AM CRANKSHAFT STRAIGHTENER Sexual Orientation Not on file documented as of this encounter Last Filed Vital Signs Vital Sign Reading Time Taken Comments Blood Pressure 126/86 07/01/2024 9:55 AM CRANKSHAFT STRAIGHTENER Pulse 86 07/01/2024 9:55 AM CRANKSHAFT STRAIGHTENER Temperature 36.6 ??C (97.8 ??F) 07/01/2024 9:55 AM CS T Respiratory Rate 16 07/01/2024 9:55 AM CRANKSHAFT STRAIGHTENER Oxygen Saturation 98% 07/01/2024 9:55 AM CRANKSHAFT STRAIGHTENER Inhaled Oxygen Concentration - - Weight 89.8 kg (198 lb) 07/01/2024 9:55 AM CRANKSHAFT STRAIGHTENER Height 172.7 cm (5' 8 ) 07/01/2024 9:55 AM CRANKSHAFT STRAIGHTENER Body Mass Index 30.11 07/01/2024 9:55 AM CRANKSHAFT STRAIGHTENER documented in this encounter Progress Notes * [...] least 2 continuous years, flagyl, Asacol, Azathioprine (5619-2375), Remicade (2893-8532, switched for insurance purposes), Hu Iritis Osteoporosis [...] History Administered Date(s) Administered Dtap (Generic) 05/10/1990 [employer] COVID-19 (ORIGINAL FORMULATION, PURPLE CAP) mRNA, LNP-S, [...] appointments otherwise. Pt v/u. Lanre Parekh DO KSHAFT STRAIGHTENER documented in this encounter Plan of Treatment Not on file documented as of this encounter Procedures Procedure Name Priority Date/Time Associated Diagnosis Comments CULTURE STREP A Routine 07/01/2024 10:33 AM CRANKSHAFT STRAIGHTENER Acute cough CORONAVIRUS (COVID 19) PCR Routine 07/01/2024 10:33 AM CRANKSHAFT STRAIGHTENER Acute cough CORONAVIRUS (COVID-19) INFLUENZA A & B ANTIGEN IA PANEL Routine 07/01/2024 Acute cough STREP A RAPID Routine 07/01/2024 Acute cough documented in this encounter Results * CULTURE STREP A (MG/SJS/SMD Only) (07/01/2024 10:33 AM CRANKSHAFT STRAIGHTENER) THROAT CULTURE STREP A ONLY Negative for Group A Streptococci Negative for Group A Streptococci 07/02/2024 2:51 PM CRANKSHAFT STRAIGHTENER -[facility] STRUCTURE OF ANTERIOR PORTION OF NECK / Unknown 07/01/2024 10:33 AM CRANKSHAFT STRAIGHTENER us Lanre Parekh DO MICROBIOLOGY - GENERAL O RDERABLES Final Result [facility] [place] [address] [facility] [place] [address], * CORONAVIRUS (COVID 19) PCR (07/01/2024 10:33 AM CRANKSHAFT STRAIGHTENER) SPEC DESCRIPTION NASAL 07/01/20 2:01 PM CRANKSHAFT STRAIGHTENER [facility] CORONAVIRUS SARS COV 2 PCR (RESP) NEGATIVE NEGATIVE 07/02/2024 4:06 PM CRANKSHAFT STRAIGHTENER [facility] Comment: THE SARS-CoV-2 TEST HAS BEEN AUTHORIZED BY THE FDA UNDER AN EUA FOR USE BY AUTHORIZED LABORATORIES. PERFORMED BY NUCLEIC ACID AMPLIFICATION PCR NASAL STRUCTURE / Unknown 07/01/2024 10:33 AM CRANKSHAFT STRAIGHTENER Lanre Parekh DO MICROBIOLOGY - GENERAL O RDERABLES Final Result Performing Organization Address [facility]/ZIP Co de Phone Number [facility] [address] [place] [address], * STREP A RAPID (07/01/2024) [facility] RAPID STREP TEST NEGATIVE NEGATIVE [facility] Internal Control: VALID VALID [facility] STRUCTURE OF ANTERIOR PORTION OF NECK / Unknown 07/01/2024 Lanre Parekh DO MICROBIOLOGY GENERAL O RDERABLES Final Result Performing Organization Address City/[facility]/ZIP Co de Phone Number [facility] [address] [place] [address], [place] * CORONAVIRUS (COVID-19) INFLUENZA A & B ANTIGEN IA PANEL (07/01/2024) [facility] CORONAVIRUS ANTIGEN IA NEGATIVE NEGATIVE [facility] INFLUENZA A NEGATIVE NEGATIVE [facility] INFLUENZA B NEGATIVE NEGATIVE [facility] Internal Control: VALID VALID [facility] NASAL STRUCTURE / Unknown 07/01/2024 us Lanre Parekh DO MICROBIOLOGY - GENERAL O RDERABLES Final Result -[address] [address], documented in this encounter Visit Diagnoses Diagnosis Upper respiratory tract infection, unspecified type- Primary Acute cough documented in this encounter Additional Health Concerns Infection Onset Date Last Indicated Resolved Time COVID-19 Rule Out 07/01/2024 07/01/2024 07/01/2024 10:33 AM CRANKSHAFT STRAIGHTENER COVID-19 Rule Out 07/01/2024 07/01/2024 07/02/2024 4:06 PM CRANKSHAFT STRAIGHTENER Assessment Noted Time PHQ-9 Depression Total Score: 1 01/26/20 21 11:17 AM CDT documented as of this encounter Care Teams Filler Block Inserter Remover Relationship Specialty Start Date End Date Lanre Parekh DO [address] [place] [address] PCP - General FAMILY PRACTICE 09/07/22 documented as of this encounter
--- OUTSIDE RECORDS SUMMARY | 2024-07-09 08:48 | XMS_ITS | Encounter Summary ---
Author Organization [facility] Address [address] [place] [address]. [place], [place] [address] [place] [address] Care Team Providers Care Experimental Assembler Name Role Phone Lanre Parekh DO Primary Care Provider + Reason for Visit * Reason Onset Date Comments TCM 11/09/2022 Encounter Details Date Type Department Care Team (Late st Contact Info) Description 11/09/2022 Telephone [facility] Medical Group Family & Internal Medicine [facility] [address] [place] [address] Lanre Parekh DO [address] [place], [place] [phone] TCM Social History Tobacco Use Types Packs/Day [...] Sex Assigned at Male 07/01/2024 9:54 AM TESTING AND REGULATING CHIEF Legal Sex Male 8:28 AM TESTING AND REGULATING CHIEF Gender Identity Male 07/01/2024 9:54 AM TESTING AND REGULATING CHIEF Sexual Orientation Not on file documented as [...] documented as of this encounter Care Teams Experimental Assembler Relationship Specialty Start Date End Date Lanre Parekh DO [address] [place] [address] PCP - General FAMILY PRACTICE 09/07/22 documented as of this encounter
--- OUTSIDE RECORDS SUMMARY | 2024-07-09 08:48 | XMS_ITS | Encounter Summary ---
Author Organization [facility] Address [address] [place] [address]. [place], [place] [address] [place] [address] Care Team Providers Care Acid Tender Name Role Phone Lanre Parekh DO Primary [...] Sex Assigned at Male 07/01/2024 9:54 AM OPTICAL EFFECTS CAMERA OPERATOR Legal Sex Male 8:28 AM OPTICAL EFFECTS CAMERA OPERATOR Gender Identity Male 07/01/2024 9:54 AM OPTICAL EFFECTS CAMERA OPERATOR Sexual Orientation Not on file documented as of this encounter Plan of Treatment Not on file documented as of this encounter Visit Diagnoses Not on filedocumented in this encounter Additional Health Concerns Assessment Noted Time PHQ-9 Depression Total Score: 1 01/26/20 21 11:17 AM CDT documented as of this encounter Care Teams Acid Tender Relationship Specialty Start Date End Date Lanre Parekh DO [address] [place] [address] PCP - General FAMILY PRACTICE 06/28/18 09/06/22 documented as of this encounter
--- OUTSIDE RECORDS SUMMARY | 2024-07-09 08:49 | XMS_ITS | Encounter Summary ---
Author Organization [facility] Address [address] [place] [address]. [place], [place] [address] [place] [address] Care Team Providers Care Sexual Assault Social Worker Name Role Phone Lanre Parekh Primary Care Provider + Reason for Visit * Reason Comments Sleep Study (SCAN) Encounter Details Date Type Department Care Team ([facility] Contact Info) Description 12/19/2018 Scan HEALTH [...] Sex Assigned at Male 07/01/2024 9:54 AM MODEL AND MOLD MAKER Legal Sex Male 8:28 AM MODEL AND MOLD MAKER Gender Identity Male 07/01/2024 9:54 AM MODEL AND MOLD MAKER Sexual Orientation Not on file documented as [...] on filedocumented in this encounter Care Teams Sexual Assault Social Worker Relationship Specialty Start Date End Date Lanre Parekh DO [address] [place] [address] PCP - General FAMILY PRACTICE 06/28/18 09/06/22 documented as of this encounter
--- OUTSIDE RECORDS SUMMARY | 2024-07-09 08:49 | XMS_ITS | Encounter Summary ---
Author Organization [facility] Address [address] [place] [address]. [place], [place] [address] [place] [address] Care Team Providers Care Rent Collector Name Role Phone Lanre Parekh DO Primary Care Provider + Lanre Parekh DO Primary Care Provider + Encounter Details Date Type Department Care Team (Late st Contact Info) Description 01/28/2021 [employer] Message Enc [facility] Medical Group Family & Internal Medicine [facility] [address] [place] [address] Lanre Parekh DO [address] [place] [address] RE: Other Social History Tobacco [...] Sex Assigned at Male 07/01/2024 9:54 AM TELEGRAPH OPERATOR Legal Sex Male 8:28 AM TELEGRAPH OPERATOR Gender Identity Male 07/01/2024 9:54 AM TELEGRAPH OPERATOR Sexual Orientation Not on file documented [...] Rule Out 07/01/2024 07/01/2024 07/01/2024 10:33 AM TELEGRAPH OPERATOR COVID-19 Rule Out 07/01/2024 07/01/2024 07/02/2024 4:06 PM TELEGRAPH OPERATOR Assessment Noted Time PHQ-9 Depression Total Score: 1 01/26/20 21 11:17 AM CDT documented as of this encounter Care Teams Rent Collector Relationship Specialty Start Date End Date Lanre Parekh DO [address] [place] [address] PCP - General FAMILY PRACTICE 06/28/18 09/06/22 Lanre Parekh DO [address] [place] [address] PCP - General FAMILY PRACTICE 09/07/22 documented as of this encounter
--- OUTSIDE RECORDS SUMMARY | 2024-07-09 08:49 | XMS_ITS | Encounter Summary ---
Author Organization [facility] Address [address] [place] [address]. [place], [place] [address] [place] [address] Care Team Providers Care Park Interpreter Name Role Phone Lanre Parekh Primary Care Provider + Reason for Visit * Reason Comments Colonoscopy Report (SCAN) Encounter Details Date Type Department Care Team ([facility] Contact Info) Description 10/01/2020 Scan HEALTH INFO [...] Sex Assigned at Male 07/01/2024 9:54 AM CONVEYOR FEEDER Legal Sex Male 8:28 AM CONVEYOR FEEDER Gender Identity Male 07/01/2024 9:54 AM CONVEYOR FEEDER Sexual Orientation Not on file documented [...] on filedocumented in this encounter Care Teams Park Interpreter Relationship Specialty Start Date End Date Lanre Parekh DO [address] [place], [place] [phone] PCP - General FAMILY PRACTICE 06/28/18 09/06/22 documented as of this encounter
--- OUTSIDE RECORDS SUMMARY | 2024-07-09 08:49 | XMS_ITS | Encounter Summary ---
Author Organization [facility] Address [address] [place] [address]. [place], [place] [address] [place] [address] Care Team Providers Care Cafe Site Attendant Name Role Phone Lanre Parekh DO Primary Care Provider + Reason for Visit * Reason Onset Date Comments Follow Up Call 08/13/2018 Encounter Details Date Type Department Care Team (Late st Contact Info) Description 08/13/2018 Telephone [facility] Family [facility] Internal Medicine [facility] [address] [place] [address] Lanre Parekh DO [address] [place], [place] [phone] Follow Up Call Social History Tobacco Use [...] Sex Assigned at Male 07/01/2024 9:54 AM SAMPLE COLLECTOR Legal Sex Male 8:28 AM SAMPLE COLLECTOR Gender Identity Male 07/01/2024 9:54 AM SAMPLE COLLECTOR Sexual Orientation Not on file documented as of this encounter Progress Notes * Lanre Parekh DO - 08/14/2018 9:00 AM CST Noted. LE COLLECTOR * Margie Sullivan RN - 08/14/2018 8:57 AM CST Yes he saw the ENT, nothing was concerning. Still has inflammation, no pain. Swallowing fine. No drainage noted. Encouraged to call back if no improvement in 1-2 weeks. LE COLLECTOR * Maribel Mccann MA - 08/13/2018 4:55 PM CST [id number] LE COLLECTOR * Lanre Parekh DO - 08/13/2018 4:08 PM CST Has pt seen ENT yet regarding his tonsillitis? LE COLLECTOR documented in this encounter Plan of Treatment Not on file documented as of this encounter Visit Diagnoses Not on filedocumented in this encounter Care Teams Cafe Site Attendant Relationship Specialty Start Date End Date Lanre Parekh DO [address] [place], [place] [phone] PCP - General FAMILY PRACTICE 06/28/18 09/06/22 documented as of this encounter
--- OUTSIDE RECORDS SUMMARY | 2024-07-09 08:49 | XMS_ITS | Encounter Summary ---
Author Organization [facility] Address [address] [place] [address]. [place], [place] [address] [place] [address] Care Team Providers Care Ultrasound Technologist Name Role Phone Lanre Parekh DO Primary Care Provider + Reason for Visit * Reason Onset Date Comments Imm/Inj 01/26/2021 entered pfizer c ovid imm. into chart Encounter Details Date Type Department Care Team (Late st Contact Info) Description 01/26/2021 Telephone [facility] [address] [place] [address] Lanre Parekh DO [address] [place] [address] Imm/Inj (entered pfizer covid imm. [...] Sex Assigned at Male 07/01/2024 9:54 AM HEAD FILTER PRESS TENDER Legal Sex Male 8:28 AM HEAD FILTER PRESS TENDER Gender Identity Male 07/01/2024 9:54 AM HEAD FILTER PRESS TENDER Sexual Orientation Not on file documented as [...] documented as of this encounter Care Teams Ultrasound Technologist Relationship Specialty Start Date End Date Lanre Parekh DO [address] [place] [address] PCP - General FAMILY PRACTICE 06/28/18 09/06/22 documented as of this encounter
--- OUTSIDE RECORDS SUMMARY | 2024-07-09 08:49 | XMS_ITS | Encounter Summary ---
Author Organization [facility] Address [address] [place] [address]. [place], [place] [address] [place] [address] Care Team Providers Care Cost Coordinator Name Role Phone Lanre Parekh DO Primary [...] Sex Assigned at Male 07/01/2024 9:54 AM INTERVENTIONAL RADIOLOGY TECH Legal Sex Male 8:28 AM INTERVENTIONAL RADIOLOGY TECH Gender Identity Male 07/01/2024 9:54 AM INTERVENTIONAL RADIOLOGY TECH Sexual Orientation Not on file documented as of this encounter Plan of Treatment Not on file documented as of this encounter Visit Diagnoses Not on filedocumented in this encounter Care Teams Cost Coordinator Relationship Specialty Start Date End Date Lanre Parekh DO [address] [place] [address] PCP - General FAMILY PRACTICE 06/28/18 09/06/22 documented as of this encounter
--- OUTSIDE RECORDS SUMMARY | 2024-07-09 08:49 | XMS_ITS | Encounter Summary ---
Author Organization [facility] Address [address] [place] [address]. [place], [place] [address] [place] [address] Care Team Providers Care Breaker Up Machine Operator Name Role Phone Lanre Parekh DO Primary Care Provider + Lanre Parekh DO Primary Care Provider + Encounter Details Date Type Department Care Team (Late st Contact Info) Description 01/25/2021 oDeskt Message Enc [facility] Family & Internal Medicine [facility] [address] [place] [address] Lanre Parekh DO [address] [place] [address] Follow Up/Update Social History Tobacco [...] Sex Assigned at Male 07/01/2024 9:54 AM SPECIAL NEEDS BUS DRIVER Legal Sex Male 8:28 AM SPECIAL NEEDS BUS DRIVER Gender Identity Male 07/01/2024 9:54 AM SPECIAL NEEDS BUS DRIVER Sexual Orientation Not on file documented [...] Rule Out 07/01/2024 07/01/2024 07/01/2024 10:33 AM SPECIAL NEEDS BUS DRIVER COVID-19 Rule Out 07/01/2024 07/01/2024 07/02/2024 4:06 PM SPECIAL NEEDS BUS DRIVER Assessment Noted Time PHQ-9 Depression Total Score: 1 01/26/20 21 11:17 AM CDT documented as of this encounter Care Teams Breaker Up Machine Operator Relationship Specialty Start Date End Date Lanre Parekh DO [address] [place] [address] PCP - General FAMILY PRACTICE 06/28/18 09/06/22 Lanre Parekh DO [address] [place] [address] PCP - General FAMILY PRACTICE 09/07/22 documented as of this encounter
--- OUTSIDE RECORDS SUMMARY | 2024-07-09 08:49 | XMS_ITS | Encounter Summary ---
Author Organization [facility] Address [address] [place] [address]. [place], [place] [address] [place] [address] Care Team Providers Care Costumer Name Role Phone Lanre Parekh DO Primary Care Provider + Reason for Visit * Reason Onset Date Comments Lab Order 07/10/2018 Encounter Details Date Type Department Care Team (Late st Contact Info) Description 07/10/2018 Telephone [facility] Family & Internal Medicine [facility] [address] [place] [address] Lanre Parekh DO [address] [place] [address] Lab Order Social History Tobacco Use Types [...] Sex Assigned at Male 07/01/2024 9:54 AM GUNSMITH APPRENTICE Legal Sex Male 8:28 AM GUNSMITH APPRENTICE Gender Identity Male 07/01/2024 9:54 AM GUNSMITH APPRENTICE Sexual Orientation Not on file documented as of this encounter Progress Notes * Elaine Mcfadden CMA - 07/15/2018 10:25 AM CST received test results MITH APPRENTICE * Elaine Mcfadden CMA - 07/12/2018 10:48 AM CST Talked with [facility]. It was not drawn and they will call back if they can our not. MITH APPRENTICE * Elaine Mcfadden CMA - 07/10/2018 4:20 PM CST Lab being faxed MITH APPRENTICE * Lanre Parekh DO - 07/10/2018 11:28 AM CST Please contact [facility] as pt had EBV IGM antibody lab ordered but I don't see that one resulted where as the rest of the results have all returned. MITH APPRENTICE documented in this encounter Plan of Treatment Not on file documented as of this encounter Visit Diagnoses Not on filedocumented in this encounter Care Teams Costumer Relationship Specialty Start Date End Date Lanre Parekh DO [address] [place] [address] PCP - General FAMILY PRACTICE 06/28/18 09/06/22 documented as of this encounter
--- OUTSIDE RECORDS SUMMARY | 2024-07-09 08:49 | XMS_ITS | Encounter Summary ---
Author Organization [facility] Address [address] [place] [address]. [place], [place] [address] [place] [address] Care Team Providers Care Fuels Engineer Name Role Phone Lanre Parekh DO Primary Care Provider + Reason for Referral * Consultation (Urgent) - Closed Specialty Diagnoses / Procedures Referred By Contac t Referred To Contact OTOLARYNGOLOGY Diagnoses Pharyngitis Lanre Parekh DO [address] [place] [address] Phone: tel: fax: Mikel Russ MD [address] [place] [address] Phone: tel: fax: Referral ID Status Reason Start Date Expiration Date Visits Re quested Visits Authorized [id number] Closed 07/17/2018 08/16/2019 100 100 GOW MANAGER Reason for Visit * Reason Onset Date Comments Lab Results 07/15/2018 Encounter Details Date Type Department Care Team (Late st Contact Info) Description 07/15/2018 Telephone [facility] Family & Internal Medicine - [place] [address] [place] [address] Lanre Parekh DO [address] [place], [place] [phone] Lab Results Social History Tobacco Use Types [...] Sex Assigned at Male 07/01/2024 9:54 AM PAI GOW MANAGER Legal Sex Male 8:28 AM PAI GOW MANAGER Gender Identity Male 07/01/2024 9:54 AM PAI GOW MANAGER Sexual Orientation Not on file documented as of this encounter Progress Notes * Maribel Vinson MA - 07/17/2018 2:13 PM CST Patient notified , order placed for urgent ENT referral-sjs GOW MANAGER * Maribel Vinson MA - 07/17/2018 2:12 PM CSTAddended by: MARIBEL VINSON on: 07/17/2018 02:12 PM Modules accepted: Orders GOW MANAGER * Olena Coates MA - 07/15/2018 12:41 PM CST Lm 07/15/18 tn GOW MANAGER * Olena Coates MA - 07/15/2018 12:41 PM CST ----- Message from Lanre Parekh DO sent at 07/15/2018 10:49 AM PAI GOW MANAGER ----- Some general signs of inflammation, but acute labs checking for Foster are negative and cultures are also negative. Has pt contacted his GI physician? If symptoms are still occurring, I would recommendurgent ENT referral to Dr. Russ's office preferably. Can see whomever in his office. GOW MANAGER documented in this encounter Plan of Treatment Scheduled Referrals Name Type Priority Associated Diagnoses Orde r Schedule Ambulatory referral to ENT Referral Routine Pharyngitis Ordered: 07/17/2018 documented as of this encounter Visit Diagnoses Diagnosis Generalized abdominal pain- Primary Abdominal pain, generalized Pharyngitis Acute pharyngitis documented in this encounter Care Teams Fuels Engineer Relationship Specialty Start Date End Date Lanre Parekh DO [address] [place] [address] PCP - General FAMILY PRACTICE 06/28/18 09/06/22 documented as of this encounter
--- OUTSIDE RECORDS SUMMARY | 2024-07-09 08:49 | XMS_ITS | Encounter Summary ---
Author Organization [facility] Address [address] [place] [address]. [place], [place] [address] [place] [address] Care Team Providers Care Political Science Instructor Name Role Phone Lanre Parekh DO Primary Care Provider + Reason for Visit * Reason Onset Date Comments Results 01/25/2021 Encounter Details Date Type Department Care Team (Late st Contact Info) Description 01/25/2021 Telephone [facility] Family & Internal Medicine [facility] [address] [place] [address] Lanre Parekh DO [address] [place], [place] [phone] Results Social History Tobacco Use Types Packs/Day [...] Sex Assigned at Male 07/01/2024 9:54 AM METAL MACHINE OPERATOR Legal Sex Male 8:28 AM METAL MACHINE OPERATOR Gender Identity Male 07/01/2024 9:54 AM METAL MACHINE OPERATOR Sexual Orientation Not on file [...] documented as of this encounter Care Teams Political Science Instructor Relationship Specialty Start Date End Date Lanre Parekh DO [address] [place] [address] PCP - General FAMILY PRACTICE 06/28/18 09/06/22 documented as of this encounter
--- OUTSIDE RECORDS SUMMARY | 2024-07-09 08:49 | XMS_ITS | Encounter Summary ---
Author Organization [facility] Address [address] [place] [address]. [place], [place] [address] [place] [address] Care Team Providers Care Waistline Joiner Name Role Phone Lanre Parekh DO Primary [...] Sex Assigned at Male 07/01/2024 9:54 AM TRANSPORT CORPS OFFICER Legal Sex Male 8:28 AM TRANSPORT CORPS OFFICER Gender Identity Male 07/01/2024 9:54 AM TRANSPORT CORPS OFFICER Sexual Orientation Not on file documented as of this encounter Plan of Treatment Not on file documented as of this encounter Visit Diagnoses Not on filedocumented in this encounter Additional Health Concerns Assessment Noted Time PHQ-9 Depression Total Score: 1 01/26/20 21 11:17 AM CDT documented as of this encounter Care Teams Waistline Joiner Relationship Specialty Start Date End Date Lanre Parekh DO [address] [place] [address] PCP - General FAMILY PRACTICE 06/28/18 09/06/22 documented as of this encounter
--- OUTSIDE RECORDS SUMMARY | 2024-07-09 08:49 | XMS_ITS | Encounter Summary ---
Author Organization [facility] Address [address] [place] [address]. [place], [place] [address] [place] [address] Care Team Providers Care Carrot Buncher Name Role Phone Lanre Parekh Soni HUMPHREY Primary Care Provider + Reason for Visit * Reason Comments URI Encounter Details Date Type Department Care Team (Late st Contact Info) Description 11/18/2018 10:00 AM CDT Office Visit [facility] Family & Internal Medicine [facility] [address] [place] [address] Aleja Domingo, MERLE [address] [place] [address] URI Social History Tobacco Use Types Packs/Day [...] Sex Assigned at Male 07/01/2024 9:54 AM QUILL SKINNER Legal Sex Male 8:28 AM QUILL SKINNER Gender Identity Male 07/01/2024 9:54 AM QUILL SKINNER Sexual Orientation Not on file documented as [...] from the original note were not included. [facility] FAMILY AND INTERNAL MEDICINE OFFICE VISIT Reason for Visit: URI History of Present Illness: Pt here today with c/o fever, sore throat, pus pockets in his throat, fatigue that started last week . [facility] (rapid strep neg) but was started [...] MG tablet, , Disp: , Rfl: ??? [place]-3 Fatty Acids ([facility] FISH OIL) 1000 MG [...] Disp: , Rfl: ??? vitamin D2, ergocalciferol, 69297 UNITS capsule, Take 50,000 Units by mouth., Disp: , Rfl: ??? vitamin E 100 UNIT capsule, , Disp: , Rfl: Allergies: Allergies Allergen Reactions ??? Metronidazole Other (see comment) Neuropathy Medical History: Past Medical History: Diagnosis Date ??? Crohn's disease of both small and large intestine ([facility]) 01/25/2017 Overview: Onset: 2004. Phenotype and distribution: Stricturing Primarily involving the ileum with some concern for fistulizing disease though no evidence of fistula penetrating colon lumen during surgery in 2018 Medical therapies: Previously treated with prednisone for at least 2 continuous years, flagyl, Asacol, Azathioprine ([id number]), Remicade ([phone], switched for insurance purposes), Hu ??? Iritis [...] file Gets together: Not on file Attends mandaeism service: Not on file Active member of [...] ORG (11/18/2018 10:38 AM CDT) CULTURE RESULT [facility] [place] Comment: ??CULTURE, THROAT ?MICRO NUMBER: ?[id number] ??TEST STATUS: ? FINAL ??SPECIMEN SOURCE: ?? THROAT ??SPECIMEN QUALITY: ??ADEQUATE ??RESULT: ?No oropharyngeal pathogens recovered. STRUCTURE OF ANTERIOR PORTION OF NECK / Unknown 11/18/2018 10:38 AM CDT 11/19/2018 2:43 AM CDT Narrative Resulting Agency Comment Performing Organization Information: ?Site ID: [id number] ?[facility]: [facility] ?Address: [address] [place] [id number] ?Director: Hien Leavitt Aleja BLOOM MICROBIOLOGY - GENERAL ORDE RABADAM Final Result Performing Organization Address City/[facility]/ZIP Co de Phone Number [facility] [phone] * RAPID STREP A (11/18/2018) RAPID STREP TEST negative NEGATIVE [facility] Internal Control: VALID VALID [facility] STRUCTURE OF ANTERIOR PORTION OF NECK / Unknown 11/18/2018 Aleja BLOOM MICROBIOLOGY - GENERAL ORDE RABLES Final Result Performing Organization Address [facility]/ZIP Co de Phone Number [facility] [address] [place] [address], documented in this encounter Visit Diagnoses Diagnosis Sore throat- Primary Acute pharyngitis Acute pharyngitis, unspecified etiology documented in this encounter Care Teams Carrot Buncher Relationship Specialty Start Date End Date Lanre Parekh DO [address] [place] [address] PCP - General FAMILY PRACTICE 06/28/18 09/06/22 documented as of this encounter
--- OUTSIDE RECORDS SUMMARY | 2024-07-09 08:49 | XMS_ITS | Encounter Summary ---
Author Organization [facility] Address [address] [place] [address]. [place], [place] [address] [place] [address] Care Team Providers Care Ldr Rn Name Role Phone Lanre Parekh DO Primary Care Provider + Reason for Visit * Reason Comments Outside Record (SCAN) Clinical Summary R eport - Sore Throat/Sinus Congestion - [facility] Encounter Details Date Type Department Care Team ([facility] Contact Info) Description 06/29/2018 Scan HEALTH INFO [...] Sex Assigned at Male 07/01/2024 9:54 AM MIXING OPERATOR Legal Sex Male 8:28 AM MIXING OPERATOR Gender Identity Male 07/01/2024 9:54 AM MIXING OPERATOR Sexual Orientation Not on file documented as of this encounter Plan of Treatment Not on file documented as of this encounter Visit Diagnoses Not on filedocumented in this encounter Care Teams Ldr Rn Relationship Specialty Start Date End Date Lanre Parekh DO [address] [place] [address] PCP - General FAMILY PRACTICE 06/28/18 09/06/22 documented as of this encounter
--- OUTSIDE RECORDS SUMMARY | 2024-07-09 08:49 | XMS_ITS | Encounter Summary ---
Author Organization [facility] Address [address] [place] [address]. [place], [place] [address] [place] [address] Care Team Providers Care Gas Processing Plant Operator Name Role Phone Lanre Parekh DO [...] Sex Assigned at Male 07/01/2024 9:54 AM TILTING SAW OPERATOR Legal Sex Male 8:28 AM TILTING SAW OPERATOR Gender Identity Male 07/01/2024 9:54 AM TILTING SAW OPERATOR Sexual Orientation Not on file documented as of this encounter Plan of Treatment Not on file documented as of this encounter Visit Diagnoses Not on filedocumented in this encounter Care Teams Gas Processing Plant Operator Relationship Specialty Start Date End Date Lanre Parekh DO [address] [place] [address] PCP - General FAMILY PRACTICE 06/28/18 09/06/22 documented as of this encounter
--- OUTSIDE RECORDS SUMMARY | 2024-07-09 08:49 | XMS_ITS | Encounter Summary ---
Author Organization [facility] Address [address] [place] [address]. [place], [place] [phone] [place] [address] Care Team Providers Care Apple Peeler Operator Name Role Phone Lanre Parekh DO Primary Care Provider + Reason for Visit * Reason Comments Follow Up lab results Encounter Details Date Type Department Care Team (Late st Contact Info) Description 06/06/2019 7:40 AM POLICY LOAN CALCULATOR Office Visit [facility] Family & Internal Medicine [id number] [place] [address] Lanre Parekh DO [facility] [place] [address] Follow Up (lab results) Social History Tobacco [...] Sex Assigned at Male 07/01/2024 9:54 AM POLICY LOAN CALCULATOR Legal Sex Male 8:28 AM POLICY LOAN CALCULATOR Gender Identity Male 07/01/2024 9:54 AM POLICY LOAN CALCULATOR Sexual Orientation Not on file documented as of this encounter Last Filed Vital Signs Vital Sign Reading Time Taken Comments Blood Pressure 114/68 06/06/2019 7:51 AM POLICY LOAN CALCULATOR Pulse 93 06/06/2019 7:51 AM POLICY LOAN CALCULATOR Temperature 37.1 ??C (98.8 ??F) 06/06/2019 7:51 AM CS T Respiratory Rate 16 06/06/2019 7:51 AM POLICY LOAN CALCULATOR Oxygen Saturation 98% 06/06/2019 7:51 AM POLICY LOAN CALCULATOR Inhaled Oxygen Concentration - - Weight 79.5 kg (175 lb 6 oz) 06/06/2019 7:51 AM POLICY LOAN CALCULATOR Height 172.7 cm (5' 8 ) 06/06/2019 7:51 AM POLICY LOAN CALCULATOR Body Mass Index 26.67 06/06/2019 7:51 AM POLICY LOAN CALCULATOR documented in this encounter Progress Notes * Zohra Joe MA - 06/06/2019 7:40 AM CSTAddended by: ZOHRA JOE on: 06/06/2019 09:13 AM Modules accepted: Orders CY LOAN CALCULATOR * Lanre Parekh DO - 06/06/2019 7:40 [...] least 2 continuous years, flagyl, Asacol, Azathioprine ([id number]), Remicade ([id number], switched for insurance purposes), Hu ??? Iritis [...] file Gets together: Not on file Attends shinto service: Not on file Active member of [...] (MULTIVITAMIN ADULT OR) ??? vitamin D2, ergocalciferol, 99848 UNITS capsule Take 50,000 Units by mouth monthly. ??? [place]-3 Fatty Acids ([facility] FISH OIL) 1000 MG [...] (MULTIVITAMIN ADULT OR) ??? vitamin D2, ergocalciferol, 76569 UNITS capsule Take 50,000 Units by mouth monthly. ??? [place]-3 Fatty Acids ([facility]S FISH OIL) 1000 MG [...] with specialists as indicated. Lanre Parekh DO CY LOAN CALCULATOR documented in this encounter Plan of Treatment Not on file documented as of this encounter Procedures Procedure Name Priority Date/Time Associated Diagnosis Comments COLLECTION VENOUS BLOOD VENIPUNCTURE Routine 06/06/2019 9:13 AM POLICY LOAN CALCULATOR Anemia, unspecified type VITAMIN B12 / FOLATE Routine 06/06/2019 8:17 AM POLICY LOAN CALCULATOR Anemia, unspecified type IRON SAT PANEL (IRON,IBC,%SAT) Routine 06/06/2019 8:17 AM POLICY LOAN CALCULATOR Anemia, unspecified type RETICULOCYTE CT, AUTO Routine 06/06/2019 8:17 AM POLICY LOAN CALCULATOR Anemia, unspecified type BLOOD SMEAR INTERPRETATION BY Routine 06/06/2019 8:17 AM POLICY LOAN CALCULATOR Anemia, unspecified type CBC, AUTO, NO DIFF Routine 06/06/2019 8: 17 AM POLICY LOAN CALCULATOR Anemia, unspecified type FERRITIN Routine 06/06/2019 8:17 AM POLICY LOAN CALCULATOR Anemia, unspecified type documented in this encounter Results * (ABNORMAL) CBC, AUTO, NO DIFF (06/06/2019 8:17 AM POLICY LOAN CALCULATOR) WBC 5.7 3.8 - 10.8 Thousand/u L [facility] RBC 3.86(L) 4.20 - 5.80 Million/uL [facility] HGB 13.4 13.2 - 17.1 g/dL [...] [facility] 06/06/2019 8:17 AM POLICY LOAN CALCULATOR 06/07/2019 6:55 AM POLICY LOAN CALCULATOR Narrative Resulting Agency Comment Performing Organization Information: ?Site ID: [place] ?Name: [facility] ?Address: [address] [place] [address] [place] [address] ?Director: Christopher Salas D.O. MPH us Lanre Parekh DO LABORATORY Final Re sult Performing Organization Address [facility]/ZIP Co de Phone Number [facility] * RETICULOCYTE CT, AUTO (06/06/2019 8:17 AM POLICY LOAN CALCULATOR) RETICULOCYTE COUNT 0.9 % [facility] RETICULOCYTE COUNT 34,740 25,000 - 90,000 cells/uL [facility] 06/06/2019 8:17 AM POLICY LOAN CALCULATOR 06/07/2019 6:55 AM POLICY LOAN CALCULATOR Narrative Resulting Agency Comment Performing Organization Information: ?Site ID: [place] ?Name: [facility] ?Address: [address] [place] [address] [place] [address] ?Director: Christopher Salas D.O., MPH us Lanre Parekh DO LABORATORY Final Re sult Performing Organization Address [facility]/ZIP Co de Phone Number [facility] * VITAMIN B12 / FOLATE (06/06/2019 8:17 AM POLICY LOAN CALCULATOR) VITAMIN B12 S/P/B 550 200 - 1,100 pg/mL [facility] FOLATE >24.0 ng/mL [facility] Comment: ? Reference Range ? Low: ? <3.4 ? Borderline: ?3.4-5.4 ? Normal: ?>5.4 06/06/2019 8:17 AM POLICY LOAN CALCULATOR 06/07/2019 6:13 AM POLICY LOAN CALCULATOR Narrative Resulting Agency Comment Performing Organization Information: ?Site ID: [place] ?Name: [facility] ?Address: [place] [address] ?Director: Christopher Salas D.O., MPH Lanre Parekh DO LABORATORY Final Re sult Performing Organization Address [facility] de Phone Number [facility] * FERRITIN (06/06/2019 8:17 AM POLICY LOAN CALCULATOR) FERRITIN 91 38 - 380 ng/mL [facility] 06/06/2019 8:17 AM POLICY LOAN CALCULATOR 06/07/2019 6:55 AM POLICY LOAN CALCULATOR Narrative Resulting Agency Comment Performing Organization Information: ?Site ID: [place] ?Name: [facility] ?Address: [place] [address] ?Director: Christopher Salas D.O. MPH Lanre Parekh DO LABORATORY Final Re sult Performing Organization Address [facility] de Phone Number [facility] * IRON SAT PANEL (IRON,IBC,%SAT) (06/06/2019 8:17 AM POLICY LOAN CALCULATOR) IRON 104 50 - 195 mcg/dL [facility] IRON BINDING CAPACITY 370 250 - 425 mcg/dL (calc) [facility] % IRON SATURATION 28 20 - 48 % (calc) [facility] 06/06/2019 8:17 AM POLICY LOAN CALCULATOR 06/07/2019 6:55 AM POLICY LOAN CALCULATOR Narrative Resulting Agency Comment Performing Organization Information: ?Site ID: [place] ?Name: [facility] ?Address: [facility] [place] [address] ?Director: Christopher Salas D.O., MPH us Lanre Parekh DO LABORATORY Final Re sult Performing Organization Address [facility] Co de Phone Number [facility] * BLOOD SMEAR INTERPRETATION BY (06/06/2019 8:17 AM POLICY LOAN CALCULATOR) SMEAR TO PATHOLOGIST [facility] Comment: RED BLOOD CELLS: MILD ANISOCYTOSIS AND POIKILOCYTOSIS. WHITE BLOOD CELLS: FULL MATURATION OF THE GRANULOCYTIC SERIES. OCCASIONAL ACTIVATED LYMPHOCYTES PRESENT. PLATELETS: ADEQUATE. MANUAL DIFFERENTIAL: 58% POLYSEGMENTED NEUTROPHILS 38% LYMPHOCYTES 4% MONOCYTES ?? IMPRESSION: MACROCYTOSIS PRESENT. CLINICAL CORRELATION RECOMMENDED. (GCM/DLP) THIS PERIPHERAL BLOOD SMEAR WAS REVIEWED BY: Joe CAMPBELL M.D. [facility] [id number] [place], [place] [id number] [phone] CLIA ID NO. [id number] 06/06/2019 8:17 AM POLICY LOAN CALCULATOR 06/07/2019 6:55 AM POLICY LOAN CALCULATOR Narrative Resulting Agency Comment Performing Organization Information: ?Site ID: [place] ?Name: [facility] ?Address: [facility] [place] [address] ?Director: Christopher Salas D.O., MPH Lanre Parekh DO LABORATORY Final Re sult Performing Organization Address [facility] Co de Phone Number [facility] documented in this encounter Visit Diagnoses Diagnosis Anemia, unspecified type- Primary documented in this encounter Care Teams Apple Peeler Operator Relationship Specialty Start Date End Date Lanre Parekh DO [address] [place] [address] PCP - General FAMILY PRACTICE 06/28/18 09/06/22 documented as of this encounter
--- OUTSIDE RECORDS SUMMARY | 2024-07-09 08:49 | XMS_ITS | Encounter Summary ---
Author Organization [facility] Address [address] [place] [address]. [place], [place] [address] [place] [address] Care Team Providers Care Tax Audit Manager Name Role Phone Lanre Parekh DO Primary Care Provider + Reason for Visit * Reason Onset Date Comments Lab Results 06/16/2019 Encounter Details Date Type Department Care Team (Late st Contact Info) Description 06/16/2019 Telephone [facility] Family & Internal Medicine [facility] [address] [place] [address] Lanre Parekh DO [address] [place], [place] [phone] Lab Results Social History Tobacco Use Types [...] Sex Assigned at Male 07/01/2024 9:54 AM FINANCIAL SUPERVISOR Legal Sex Male 8:28 AM FINANCIAL SUPERVISOR Gender Identity Male 07/01/2024 9:54 AM FINANCIAL SUPERVISOR Sexual Orientation Not on file documented as of this encounter Progress Notes * Nitza Olivares MA - 06/16/2019 9:09 AM CST Spoke w/ pt and informed of the following. NCIAL SUPERVISOR * Lanre Parekh DO - 06/16/2019 8:33 AM CST No, I mean he has medications that can cause the enlargement of the RBCs, not specifically that he is on medicines for sleep apnea. Please encourage him to continue using it; it can take a bit of time to get used to it. NCIAL SUPERVISOR * Nitza Olivares MA - 06/16/2019 8:22 AM CST Spoke with pt and informed of the following. Pt states that he isn't taking any meds for sleep apnea at this time. He is getting fed up w/ his machine. I told pt that I will relay this to you. NCIAL SUPERVISOR * Nitza Olivares MA - 06/16/2019 8:21 AM CST ----- Message from Lanre Parekh DO sent at 06/15/2019 5:49 PM FINANCIAL SUPERVISOR ----- Pt's Hgb/Hct is actually WNL at this time, although it is on the low side of normal. He has some enlargement of his RBCs, which is likely related to his medications and sleep apnea. Will monitor thisat this time and recheck next year. NCIAL SUPERVISOR documented in this encounter Plan of Treatment Not on file documented as of this encounter Visit Diagnoses Not on filedocumented in this encounter Care Teams Tax Audit Manager Relationship Specialty Start Date End Date Lanre Parekh DO [address] [place] [address] PCP - General FAMILY PRACTICE 06/28/18 09/06/22 documented as of this encounter
--- OUTSIDE RECORDS SUMMARY | 2024-07-09 08:49 | XMS_ITS | Encounter Summary ---
Author Organization [facility] Address [address] [place] [address]. [place], [place] [address] [place] [address] Care Team Providers Care Estimator Name Role Phone Lanre Parekh DO Primary Care Provider + Encounter Details Date Type Department Care Team (Latest Contact Info) Description 07/05/2018 2:40 PM BARGE PILOT - 07/05/2018 11:59 PM BARGE PILOT Hospital Encounter [facility] [place] [address] Lanre Parekh DO [address] [place] [address] Discharge Disposition: Home or Self Care (Routine [...] Sex Assigned at Male 07/01/2024 9:54 AM BARGE PILOT Legal Sex Male 8:28 AM BARGE PILOT Gender Identity Male 07/01/2024 9:54 AM BARGE PILOT Sexual Orientation Not on file documented as [...] Minerals-Vitamin s (NUTRA-SUPPORT BONE) Cap 11/18/2018 nystatin 207139 UNIT/ML suspension G 5 ML PO QID FOR 7 DAYS 0 06/29/2018 11/18/2018 [place]-3 Fatty Acids ([facility] FISH OIL) 1000 MG Cap 09/08/19 23 Probiotic Product (PROBIOTIC ADVANCED OR) 09/07/2022 Turmeric Powder Take 1,500 mg by mouth. 09/07/2022 vitamin D2, ergocalciferol, 51900 UNITS capsuleIndicatio ns:Every 2 weeks Take 50,000 Units by mouth. 05/20/2018 05/20/2019 vitamin E 100 UNIT capsule 11/22/2018 documented as of this encounter Plan of Treatment Not on file documented as of this encounter Procedures Procedure Name Priority Date/Time Associated Diagnosis Comments YUNI BAKER VIRAL CAPSID AG, AB IGG Routine 07/05/2018 3:07 PM BARGE PILOT Sore throat Pharyngitis due to other organism YUNI BAKER VIRAL CAPSID AG, AB IGM Routine 07/05/2018 3:07 PM BARGE PILOT SED RATE, ERYTHROCYTE (ESR) Routine 07/05/2018 3:07 PM BARGE PILOT Sore throat Pharyngitis due to other organism COMPREHENSIVE METABOLIC PANEL Routine 07/05/2018 3:07 PM BARGE PILOT Sore throat Pharyngitis due to other organism CMV ANTIBODY, IGM Routine 07/05/2018 3:0 7 PM BARGE PILOT Sore throat Pharyngitis due to other organism CMV ANTIBODY IGG Routine 07/05/2018 3:07 PM BARGE PILOT Sore throat Pharyngitis due to other organism C-REACTIVE PROTEIN Routine 07/05/2018 3: 07 PM BARGE PILOT Sore throat Pharyngitis due to other organism CBC W/DIFF AUTOMATED Routine 07/05/2018 3:07 PM BARGE PILOT Sore throat Pharyngitis due to other organism CULTURE, FUNGUS W/ STAIN Routine 07/05/2018 3:02 PM BARGE PILOT Sore throat Pharyngitis due to other organism CULTURE THROAT ALL ORG Routine 9 3:02 PM BARGE PILOT Sore throat Pharyngitis due to other organism documented in this encounter Results * YUNI BAKER VIRAL CAPSID AG, AB IGM (07/05/2018 3:07 PM BARGE PILOT) EBV VCA IGM <36.00 <36.00 U/mL 07/13/2018 8:23 PM BARGE PILOT [employer] MIMI GIL Comment: ?? U/mL ?Interpretation ?<36.00 ?Negative 36.00 - 43.99 ?Equivocal ??>43.99 ?Positive Test Performed by [facility], [email or web address] [facility], [address] [place] [address] Sai Dodson M.D., Ph.D., Director of Laboratories , [facility] [id number] 07/05/2018 3:07 PM BARGE PILOT Lanre Parekh DO LABORATORY Final Re sult Performing Organization Address City/[facility]/ZIP Co de Phone Number [employer] [address] [address], [place] [phone] * (ABNORMAL) C-REACTIVE PROTEIN (07/05/2018 3:07 PM BARGE PILOT) C-REACTIVE PROTEIN 1.02(H) <0.29 mg/dL 07/05/2018 3:49 PM [facility]GE P[facility]OT [facility] 07/05/2018 3:07 PM BARGE PILOT Lanre Parekh DO LABORATORY Final Re sult Performing Organization Address [facility] Co de Phone Number [facility] [address] [place] [address], [place] [phone] * (ABNORMAL) SED RATE, ERYTHROCYTE (ESR) (07/05/2018 3:07 PM BARGE PILOT) ESR 34(H) 0 - 15 MM/HR 07/06/2018 1:[address] [facility] 07/05/2018 3:07 PM BARGE PILOT Lanre Parekh DO LABORATORY Final Re sult Performing Organization Address City/[facility]/ZIP Co de Phone Number [facility] [address] [place] [address], [place] [phone] * (ABNORMAL) COMPREHENSIVE METABOLIC PANEL (07/05/2018 3:07 PM BARGE PILOT) [facility] GLUCOSE 90 70 - 99 MG/DL 07/05/2018 3:49 PM [facility] BUN 14 7 - 18 MG/DL 07/05/2018 3:49 PM [facility] CREATININE S/P/B 0.86 0.7 - 1.3 MG/DL 07/05/2018 3:49 PM [facility] SODIUM S/P/B 137 136 - 145 MMOL/L 07/05/2018 3:49 PM [facility] POTASSIUM S/P/B 4.2 3.5 - 5.1 MMOL/L 07/05/2018 3:49 PM [facility] CHLORIDE S/P/B 105 100 - 108 MMOL/L 07/05/2018 3:49 PM [facility] CO2 27.6 21 - 32 MMOL/L 07/05/2018 3:49 PM [facility] CALCIUM S/P/B 9.0 8.5 - 10.1 MG/DL 07/05/2018 3:49 PM [facility] BILIRUBIN TOTAL S/P/B 0.4 0.2 - 1.2 MG/DL 07/05/2018 3:49 PM [facility] TOTAL PROTEIN S/P/B 8.1 6.4 - 8.2 G/DL 07/05/2018 3:49 PM [facility] ALBUMIN S/P/B 4.1 3.4 - 5.0 G/DL 07/05/2018 3:49 PM [facility] AST 12(L) 15 - 37 U/L 07/05/2018 3:49 PM [facility] ALT 27 16 - 60 U/L 07/05/2018 3:49 PM [facility] ALKALINE PHOSPHATASE S/P/B 93 50 - 136 U/L 07/05/2018 3:49 PM [facility] ANION GAP 8.6 8 - 20 MMOL/L 07/05/2018 3:49 PM [facility] BUN CREATININE RATIO 16.4 6 - 26 07/05/2018 3:49 PM [facility] A/G RATIO 1.0 1.0 - 2.0 RATIO 07/05/2018 3:49 PM [facility] EGFR NON-AFR. AMER. >90 >90 ML/MIN/1.7 3 M2 07/05/2018 3:49 PM [facility] EGFR AFR. AMER. >90 >90 ML/MIN/1.7 3 M2 07/05/2018 3:49 PM [facility] Comment: NOTE: eGFR is not calculated for patients <18 years of age. This is an estimated GFR (CKD EPI) and should not be used for calculating drug doses. 07/05/2018 3:07 PM BARGE PILOT Lanre Parekh DO LABORATORY Final Re sult [facility] [address] [place] [address], [place] [phone] * (ABNORMAL) CBC W/DIFF AUTOMATED (07/05/2018 3:07 PM BARGE PILOT) WBC 7.4 4.5 - 11.0 x10'3/uL 07/05/2018 3:37 PM [facility] RBC 4.33(L) 4.70 - 6.10 x10'6/uL 07/05/2018 3:37 PM [facility] HGB 13.0(L) 14.0 - 18.0 G/DL 07/05/2018 3:37 PM [facility] HCT 39.4(L) 43.0 - 54.0 % 07/05/2018 3:37 PM [facility] MCV 91.0 80.0 - 94.0 FL 07/05/2018 3:37 PM [facility] MCH 30.0 27.0 - 31.0 PG 07/05/2018 3:37 PM [facility] MCHC 33.0 32.0 - 36.0 G/DL 07/05/2018 3:37 PM [facility] RDW 13.5 11.5 - 14.5 % 07/05/2018 3:37 PM [facility] PLT 252 130 - 400 x10'3/uL 07/05/2018 3:37 PM [facility] MPV 10.2 9.3 - 12.2 FL 07/05/2018 3:37 PM [facility] DIFFERENTIAL TYPE AUTOMATED DIFFERENTIAL 07/05/2018 3:37 PM [facility] NEUTROPHILS % 54.8 % 07/05/2018 3:37 PM [facility] LYMPHOCYTES % 35.6 % 07/05/2018 3:37 PM [facility] MONOCYTES % 7.1 % 07/05/2018 3:37 PM [facility] EOSINOPHILS 1.5 % 07/05/2018 3:37 PM [facility] BASOPHILS 0.7 % 07/05/2018 3:37 PM [facility] IMMATURE GRANS % 0.3(H) 0 % 07/05/19 19 3:37 PM [facility] ABS. NEUTROPHILS TOTAL 4.07 1.80 - 7.70 x10'3/uL 07/05/2018 3:37 PM [facility] ABS. LYMPHOCYTES 2.64 1.00 - 4.80 x10'3/uL 07/05/2018 3:37 PM [facility] ABS. MONOCYTES 0.53 0.30 - 0.82 x10'3/uL 07/05/2018 3:37 PM [facility] ABS. EOSINOPHILS 0.11 0.04 - 0.54 x10'3/uL 07/05/2018 3:37 PM [facility] ABS. BASOPHILS 0.05 0.01 - 0.08 x10'3/uL 07/05/2018 3:37 PM [facility] ABS. IMMATURE GRANULOCYTES 0.02 0.00 - 0.03 x10'3/uL 07/05/2018 3:37 PM [facility] 07/05/2018 3:07 PM BARGE PILOT Lanre Parekh DO LABORATORY Final Re sult [facility] [address] [place] [id number], * CMV ANTIBODY IGG (07/05/2018 3:07 PM BARGE PILOT) CMV IGG <0.60 <0.60 U/mL 07/10/2018 9:01 AM BARGE PILOT [facility] MIMI GIL Comment: ??U/mL ? Interpretation ? <0.60 ?? Negative 0.60 - 0.69 ?? Equivocal > or = 0.70 ?? 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 ??It does not differentiate between an active or past infection. Test Performed by Valerie Au, [facility], [address] [place], [place] Sai Dodson M.D., Ph.D., Director of Laboratories , CLIA [id number] 07/05/2018 3:07 PM BARGE PILOT Lanre Soni Parekh DO LABORATORY Final Re sult Performing Organization Address [facility]/ZIP Co de Phone Number [facility] , * CMV ANTIBODY, IGM (07/05/2018 3:07 PM BARGE PILOT) CMV IGM <30.00 <30.00 AU/mL 07/09/2018 10:40 AM BARGE PILOT [facility] [facility] MIMI LOUISE Comment: ?? AU/mL ? Interpretation [...] two or more weeks. Test Performed by [facility] [place], [address] [place], [place] Sai Dodson M.D., Ph.D., Director of Laboratories , CLIA [id number] 07/05/2018 3:07 PM BARGE PILOT Lanre Parekh DO LABORATORY Final Re sult Performing Organization Address [facility]/ZIP Co de Phone Number [id number] [place] [address], [place] [phone] * (ABNORMAL) YUNI BAKER VIRAL CAPSID AG, AB IGG (07/05/2018 3:07 PM BARGE PILOT) Pathologist [facility] EBV VCA IGG 240.00(H) <18.00 U/mL 07/09/2018 4:31 PM BARGE PILOT [employer] [facility] MIMI GIL Comment: ?? U/mL ?Interpretation ?<18.00 ?Negative 18.00 - 21.99 ?Equivocal ??>21.99 ?Positive Test Performed by [facility], [email or web address], [address] [place], [place] Sai Dodson M.D., Ph.D., Director of Laboratories , [facility] [id number] 07/05/2018 3:07 PM BARGE PILOT Lanre Parekh DO LABORATORY Final Re sult [employer] [facility] [address] [place] [address], [place] [phone] * CULTURE, FUNGUS W/ STAIN (07/05/2018 3:02 PM BARGE PILOT) Pathologist [facility] SPEC DESCRIPTION MOUTH 07/05/2018 3:03 PM [facility]OT [facility] SPECIAL REQUESTS NO SPECIAL REQUEST 07/05/2018 3:03 PM [facility] STAIN RESULT: NO YEAST OR FUNGAL ELEMENTS SEEN 07/06/2018 1:54 PM [facility] CULTURE RESULT NO FUNGUS ISOLATED AT 4 WEEKS. 08/04/2018 1:08 PM [facility]OT [facility] ORAL CAVITY SPECIMEN / Unknown 07/05/2018 3:02 PM BARGE PILOT 07/05/2018 3:29 PM BARGE PILOT Lanre Parekh DO MICROBIOLOGY - GENERAL O RDERABLES Final Result Performing Organization Address [facility]/ZIP Co de Phone Number [facility] [address] [place] [address], [place] [phone] * CULTURE THROAT ALL ORG (07/05/2018 3:02 PM BARGE PILOT) SPEC DESCRIPTION THROAT 07/05/2018 3:02 PM [facility]OT [facility] SPECIAL REQUESTS NO SPECIAL REQUEST 07/05/2018 3:02 PM [facility] CULTURE RESULT HEAVY GROWTH OF NORMAL CANDACE PRESENT 07/07/2018 8:21 AM [facility] P[facility]OT [facility] THROAT SWAB / Unknown 07/05/2018 3:02 PM BARGE PILOT 07/05/2018 3:28 PM BARGE PILOT us Lanre Parekh DO MICROBIOLOGY - GENERAL O RDERABLES Final Result Performing Organization Address City/[facility] Co de Phone Number [facility] [address] [place] [address], documented in this encounter Visit Diagnoses Diagnosis Sore throat Acute pharyngitis Pharyngitis due to other organism documented in this encounter Care Teams Estimator Relationship Specialty Start Date End Date Lanre Parekh DO [address] [place] [address] PCP - General FAMILY PRACTICE 06/28/18 09/06/22 documented as of this encounter
--- OUTSIDE RECORDS SUMMARY | 2024-07-09 08:49 | XMS_ITS | Encounter Summary ---
Author Organization [facility] Address [address] [place] [address]. [place], [place] [address] [place] [address] Care Team Providers Care Linderman Operator Name Role Phone Lanre Parekh DO Primary Care Provider + Reason for Visit * Reason Comments Sleep Study (SCAN) Encounter Details Date Type Department Care Team ([facility] Contact Info) Description 12/19/2018 Scan HEALTH [...] Sex Assigned at Male 07/01/2024 9:54 AM MANAGING SUPERVISOR Legal Sex Male 8:28 AM MANAGING SUPERVISOR Gender Identity Male 07/01/2024 9:54 AM MANAGING SUPERVISOR Sexual Orientation Not on file documented [...] on filedocumented in this encounter Care Teams Linderman Operator Relationship Specialty Start Date End Date Lanre Parekh DO [address] [place] [id number] PCP - General FAMILY PRACTICE 06/28/18 09/06/22 documented as of this encounter
--- OUTSIDE RECORDS SUMMARY | 2024-07-09 08:49 | XMS_ITS | Encounter Summary ---
Author Organization [facility] Address [address] [place] [address]. [place], [place] [address] [place] [address] Care Team Providers Care Headwaitress Name Role Phone Lanre Parekh DO Primary [...] Sex Assigned at Male 07/01/2024 9:54 AM PIG FARMER Legal Sex Male 8:28 AM PIG FARMER Gender Identity Male 07/01/2024 9:54 AM PIG FARMER Sexual Orientation Not on file documented as of this encounter Plan of Treatment Not on file documented as of this encounter Visit Diagnoses Not on filedocumented in this encounter Care Teams Headwaitress Relationship Specialty Start Date End Date Lanre Parekh DO [address] [place] [address] PCP - General FAMILY PRACTICE 06/28/18 09/06/22 documented as of this encounter
--- OUTSIDE RECORDS SUMMARY | 2024-07-09 08:49 | XMS_ITS | Encounter Summary ---
Author Organization [facility] Address [address] [place] [address]. [place], [place] [address] [place] [address] Care Team Providers Care Dewer Name Role Phone Lanre Parekh DO Primary [...] Sex Assigned at Male 07/01/2024 9:54 AM PLANNER SCHEDULER Legal Sex Male 8:28 AM PLANNER SCHEDULER Gender Identity Male 07/01/2024 9:54 AM PLANNER SCHEDULER Sexual Orientation Not on file documented as of this encounter Plan of Treatment Not on file documented as of this encounter Visit Diagnoses Not on filedocumented in this encounter Care Teams Dewer Relationship Specialty Start Date End Date Lanre Parekh DO [address] [place] [address] PCP - General FAMILY PRACTICE 06/28/18 09/06/22 documented as of this encounter
--- OUTSIDE RECORDS SUMMARY | 2024-07-09 08:49 | XMS_ITS | Encounter Summary ---
Author Organization [facility] Address [address] [place] [address]. [place], [place] [address] [place] [address] Care Team Providers Care General Milling Superintendent Name Role Phone Lanre Parekh DO Primary Care Provider + Reason for Visit * Reason Comments Follow Up sleep study Encounter Details Date Type Department Care Team (Late st Contact Info) Description 01/17/2019 2:20 PM CDT Office Visit [facility] Medical Group Family & Internal Medicine [facility] [address] [place] [address] Lanre Parekh DO [address] [place] [address] Follow Up (sleep study ) Social History [...] Sex Assigned at Male 07/01/2024 9:54 AM COUTURE ALTERATIONS DRESSMAKER Legal Sex Male 8:28 AM COUTURE ALTERATIONS DRESSMAKER Gender Identity Male 07/01/2024 9:54 AM COUTURE ALTERATIONS DRESSMAKER Sexual Orientation Not on file documented as [...] least 2 continuous years, flagyl, Asacol, Azathioprine (3548-6546), Remicade (3702-2539, switched for insurance purposes), Hu ??? Iritis [...] file Gets together: Not on file Attends yarsanism service: Not on file Active member of [...] Take 50 mg by mouth daily. ??? [place]-3 Fatty Acids (CVS FISH OIL) 1000 MG Cap ??? Probiotic Product (PROBIOTIC ADVANCED OR) ??? Turmeric Powder Take 1,500 mg by mouth. ??? vitamin D2, ergocalciferol, 62785 UNITS capsule Take 50,000 Units by mouth. [...] Take 50 mg by mouth daily. ??? [place]-3 Fatty Acids (CVS FISH OIL) 1000 MG Cap ??? Probiotic Product (PROBIOTIC ADVANCED OR) ??? Turmeric Powder Take 1,500 mg by mouth. ??? vitamin D2, ergocalciferol, 39311 UNITS capsule Take 50,000 Units by mouth. [...] (pediatric) documented in this encounter Care Teams General Milling Superintendent Relationship Specialty Start Date End Date Lanre Parekh DO [address] [place] [address] PCP - General FAMILY PRACTICE 06/28/18 09/06/22 documented as of this encounter
--- OUTSIDE RECORDS SUMMARY | 2024-07-09 08:49 | XMS_ITS | Encounter Summary ---
Author Organization [facility] Address [address] [place] [address]. [place], [place] [address] [place] [address] Care Team Providers Care Tile Sprayer Name Role Phone Lanre Parekh DO Primary [...] Sex Assigned at Male 07/01/2024 9:54 AM STEREOPTICIAN Legal Sex Male 8:28 AM STEREOPTICIAN Gender Identity Male 07/01/2024 9:54 AM STEREOPTICIAN Sexual Orientation Not on file documented as of this encounter Plan of Treatment Not on file documented as of this encounter Visit Diagnoses Not on filedocumented in this encounter Care Teams Tile Sprayer Relationship Specialty Start Date End Date Lanre Parekh DO [address] [place] [address] PCP - General FAMILY PRACTICE 06/28/18 09/06/22 documented as of this encounter
--- OUTSIDE RECORDS SUMMARY | 2024-07-09 08:49 | XMS_ITS | Encounter Summary ---
Author Organization [facility] Address [address] [place] [address]. [place], [place] [address] [place] [address] Care Team Providers Care Winch Derrick Operator Name Role Phone Lanre Parekh Primary [...] Assigned at Male 07/01/2024 9:54 AM METAL CASTING TRADES WORKER Legal Sex Male 8:28 AM METAL CASTING TRADES WORKER Gender Identity Male 07/01/2024 9:54 AM METAL CASTING TRADES WORKER Sexual Orientation Not on file documented [...] documented as of this encounter Care Teams Winch Derrick Operator Relationship Specialty Start Date End Date Lanre Parekh DO [address] [place] [address] PCP - General FAMILY PRACTICE 06/28/18 09/06/22 documented as of this encounter
--- OUTSIDE RECORDS SUMMARY | 2024-07-09 08:49 | XMS_ITS | Encounter Summary ---
Author Organization [facility] Address [address] [place] [address]. [place], [place] [address] [place] [address] Care Team Providers Care Kitchen Worker Name Role Phone Lanre Parekh DO Primary Care Provider + Reason for Visit * Reason Comments Follow Up Pharyngitis Encounter Details Date Type Department Care Team (Late st Contact Info) Description 11/22/2018 2:00 PM CDT Office Visit [facility] Medical Group Family & Internal Medicine [facility] [address] [place] [address] Lanre Parekh DO [address] [place], [place] [phone] Follow Up (Pharyngitis) Social History Tobacco Use [...] Sex Assigned at Male 07/01/2024 9:54 AM IT PROGRAMMER Legal Sex Male 8:28 AM IT PROGRAMMER Gender Identity Male 07/01/2024 9:54 AM IT PROGRAMMER Sexual Orientation Not on file documented as [...] yet. Patient notes daytime somnolence and snoring. [place] sleepiness scale score 10. Review of Systems [...] least 2 continuous years, flagyl, Asacol, Azathioprine (6084-4032), Remicade (3575-0165, switched for insurance purposes), Hu ??? Iritis [...] file Gets together: Not on file Attends scientologist service: Not on file Active member of [...] injection ??? mercaptopurine 50 MG tablet ??? [place]-3 Fatty Acids (CVS FISH OIL) 1000 MG Cap ??? predniSONE 20 MG tablet Take 2 tabs by mouth once daily for 3 days and one tab by mouth once daily for 2 days. 8 tablet 0 ??? Probiotic Product (PROBIOTIC ADVANCED OR) ??? Turmeric Powder Take 1,500 mg by mouth. ??? vitamin D2, ergocalciferol, 28314 UNITS capsule Take 50,000 Units by mouth. [...] injection ??? mercaptopurine 50 MG tablet ??? [place]-3 Fatty Acids (CVS FISH OIL) 1000 MG Cap ??? predniSONE 20 MG tablet Take 2 tabs by mouth once daily for 3 days and one tab by mouth once daily for 2 days. ??? Probiotic Product (PROBIOTIC ADVANCED OR) ??? Turmeric Powder Take 1,500 mg by mouth. ??? vitamin D2, ergocalciferol, 28652 UNITS capsule Take 50,000 Units by mouth. [...] unspecified documented in this encounter Care Teams Kitchen Worker Relationship Specialty Start Date End Date Lanre Parekh DO [address] [place] [address] PCP - General FAMILY PRACTICE 06/28/18 09/06/22 documented as of this encounter
--- OUTSIDE RECORDS SUMMARY | 2024-07-09 08:49 | XMS_ITS | Encounter Summary ---
Author Organization [facility] Address [address] [place] [address]. [place], [place] [address] [place] [address] Care Team Providers Care Personal Secretary Name Role Phone Lanre Parekh DO Primary Care Provider + Reason for Visit * Reason Onset Date Comments Sleep Problem 09/25/2018 Encounter Details Date Type Department Care Team (Late st Contact Info) Description 09/25/2018 Telephone [facility] Medical Group Family & Internal Medicine [facility] [address] [place] [address] Lanre Parekh DO [address] [place], [place] [phone] Sleep Problem Social History Tobacco Use Types [...] Sex Assigned at Male 07/01/2024 9:54 AM CENTRIFUGE SEPARATOR TENDER Legal Sex Male 8:28 AM CENTRIFUGE SEPARATOR TENDER Gender Identity Male 07/01/2024 9:54 AM CENTRIFUGE SEPARATOR TENDER Sexual Orientation Not on file documented [...] abnormality documented in this encounter Care Teams Personal Secretary Relationship Specialty Start Date End Date Lanre Parekh DO [address] [place] [address] PCP - General FAMILY PRACTICE 06/28/18 09/06/22 documented as of this encounter
--- OUTSIDE RECORDS SUMMARY | 2024-07-09 08:49 | XMS_ITS | Encounter Summary ---
Author Organization [facility] Address [address] [place] [address]. [place], [place] [address] [place] [address] Care Team Providers Care Journeyman Tool And Die Maker Name Role Phone Lanre Parekh DO Primary Care Provider + Lanre Parekh DO Primary Care Provider + Encounter Details Date Type Department Care Team (Late st Contact Info) Description 01/25/2021 [employer] Message Enc [facility] Medical Group Family & Internal Medicine [facility] [address] [place] [address] Aleja Domingo, MERLE [address] [place] [address] Follow Up/Update Social History Tobacco [...] Sex Assigned at Male 07/01/2024 9:54 AM GEOCHEMISTRY TEACHER Legal Sex Male 8:28 AM GEOCHEMISTRY TEACHER Gender Identity Male 07/01/2024 9:54 AM GEOCHEMISTRY TEACHER Sexual Orientation Not on file documented [...] Rule Out 07/01/2024 07/01/2024 07/01/2024 10:33 AM GEOCHEMISTRY TEACHER COVID-19 Rule Out 07/01/2024 07/01/2024 07/02/2024 4:06 PM GEOCHEMISTRY TEACHER Assessment Noted Time PHQ-9 Depression Total Score: 1 01/26/20 11:17 AM CDT documented as of this encounter Care Teams Journeyman Tool And Die Maker Relationship Specialty Start Date End Date Lanre Parekh DO [address] [place] [address] PCP - General FAMILY PRACTICE 06/28/18 09/06/22 Lanre Parekh DO [address] [place] [address] PCP - General FAMILY PRACTICE 09/07/22 documented as of this encounter
--- OUTSIDE RECORDS SUMMARY | 2024-07-09 08:49 | XMS_ITS | Encounter Summary ---
Author Organization [facility] Address [address] [place] [address]. [place], [place] [address] [place] [address] Care Team Providers Care Arrt Technologist Name Role Phone Lanre Parekh DO [...] Sex Assigned at Male 07/01/2024 9:54 AM ROOM SERVICE CLERK Legal Sex Male 8:28 AM ROOM SERVICE CLERK Gender Identity Male 07/01/2024 9:54 AM ROOM SERVICE CLERK Sexual Orientation Not on file documented as of this encounter Plan of Treatment Not on file documented as of this encounter Visit Diagnoses Not on filedocumented in this encounter Care Teams Arrt Technologist Relationship Specialty Start Date End Date Lanre Parekh DO [address] [place] [address] PCP - General FAMILY PRACTICE 06/28/18 09/06/22 documented as of this encounter
--- OUTSIDE RECORDS SUMMARY | 2024-07-09 08:49 | XMS_ITS | Encounter Summary ---
Author Organization [facility] Address [address] [place] [address]. [place], [place] [address] [place] [address] Care Team Providers Care Mock Up Maker Name Role Phone Lanre Parekh DO [...] Assigned at Male 07/01/2024 9:54 AM DIRECTOR OF RESPIRATORY THERAPY Legal Sex Male 8:28 AM DIRECTOR OF RESPIRATORY THERAPY Gender Identity Male 07/01/2024 9:54 AM DIRECTOR OF RESPIRATORY THERAPY Sexual Orientation Not on file documented as of this encounter Plan of Treatment Not on file documented as of this encounter Visit Diagnoses Not on filedocumented in this encounter Additional Health Concerns Assessment Noted Time PHQ-9 Depression Total Score: 1 01/26/20 21 11:17 AM CDT documented as of this encounter Care Teams Mock Up Maker Relationship Specialty Start Date End Date Lanre Parekh DO [address] [place] [address] PCP - General FAMILY PRACTICE 06/28/18 09/06/22 documented as of this encounter
--- OUTSIDE RECORDS SUMMARY | 2024-07-09 08:49 | XMS_ITS | Encounter Summary ---
Author Organization [facility] Address [address] [place] [address]. [place], [place] [address] [place] [address] Care Team Providers Care Masking Machine Feeder Name Role Phone Lanre Parekh DO Primary Care Provider + Reason for Visit * Reason Onset Date Comments Medication 09/05/2021 Encounter Details Date Type Department Care Team (Late st Contact Info) Description 09/05/2021 Telephone [facility] Medical Group Family & Internal Medicine [facility] [address] [place] [address] Lanre Parekh DO [address] [place], [place] [phone] Medication Social History Tobacco Use Types Packs/Day [...] Sex Assigned at Male 07/01/2024 9:54 AM FSR Legal Sex Male 8:28 AM FSR Gender Identity Male 07/01/2024 9:54 AM FSR Sexual Orientation Not on file documented as [...] further needs voiced at this time. LL-09/05/21 * Man Omer MD - 09/05/2021 12:38 PM CST Has he been tested for COVID? If not he should be tested. If he has already been tested, we can send in an antibiotic - Doxycycline 100mg bid x 7 days * Mary Shahid - 09/05/2021 12:32 PM CST Patient thinking he needs sinus medication. He is having cough, runny nose, fatigue, and chills. Was seen by urgent care and given a steroid last week. documented in this encounter Plan of Treatment [...] documented as of this encounter Care Teams Masking Machine Feeder Relationship Specialty Start Date End Date Lanre Parekh DO [address] [place] [address] PCP - General FAMILY PRACTICE 06/28/18 09/06/22 documented as of this encounter
--- OUTSIDE RECORDS SUMMARY | 2024-07-09 08:49 | XMS_ITS | Encounter Summary ---
Author Organization [facility] Address [address] [place] [address]. [place], [place] [address] [place] [address]674 Care Team Providers Care Regulator Inspector Name Role Phone Lanre Parekh DO Primary Care Provider + Lanre Parekh DO Primary Care Provider + Encounter Details Date Type Department Care Team (Late st Contact Info) Description 01/27/2021 [employer] Message Enc [facility] Medical Group Family & Internal Medicine [facility] [address] [place] [address] Lanre Parekh DO [address] [place] [address] RE: Medication Questions Social History [...] Sex Assigned at Male 07/01/2024 9:54 AM TIP OUT WORKER Legal Sex Male 8:28 AM TIP OUT WORKER Gender Identity Male 07/01/2024 9:54 AM TIP OUT WORKER Sexual Orientation Not on file documented [...] Rule Out 07/01/2024 07/01/2024 07/01/2024 10:33 AM TIP OUT WORKER COVID-19 Rule Out 07/01/2024 07/01/2024 07/02/2024 4:06 PM TIP OUT WORKER Assessment Noted Time PHQ-9 Depression Total Score: 1 01/26/20 21 11:17 AM CDT documented as of this encounter Care Teams Regulator Inspector Relationship Specialty Start Date End Date Lanre Parekh DO [address] [place] [address] PCP - General FAMILY PRACTICE 06/28/18 09/06/22 Lanre Parekh DO [address] [place] [address]682 PCP - General FAMILY PRACTICE 09/07/22 documented as of this encounter
--- OUTSIDE RECORDS SUMMARY | 2024-07-09 08:49 | XMS_ITS | Encounter Summary ---
Author Organization [facility] Address [address] [place] [address]. [place], [place] [address] [place] [address] Care Team Providers Care Erosion Control Specialist Name Role Phone Lanre Parekh DO Primary Care Provider + Reason for Visit * Reason Onset Date Comments Follow Up Call 12/20/2018 Encounter Details Date Type Department Care Team (Late st Contact Info) Description 12/20/2018 Telephone [facility] Medical Group Family & Internal Medicine [facility] [address] [place] [address] Lanre Parekh DO [address] [place], [place] [phone] Follow Up Call Social History Tobacco Use [...] Sex Assigned at Male 07/01/2024 9:54 AM CENTREX RADIO OPERATOR Legal Sex Male 8:28 AM CENTREX RADIO OPERATOR Gender Identity Male 07/01/2024 9:54 AM CENTREX RADIO OPERATOR Sexual Orientation Not on file documented as of this encounter Progress Notes * Margie Sullivan RN - 12/20/2018 12:07 PM CDT Needs f/u appointment for sleep study results. Appointment made 01/17 at 220pm. documented in this encounter Plan of Treatment Not on file documented as of this encounter Visit Diagnoses Not on filedocumented in this encounter Care Teams Erosion Control Specialist Relationship Specialty Start Date End Date Lanre Parekh DO [address] [place] [address] PCP - General FAMILY PRACTICE 06/28/18 09/06/22 documented as of this encounter
--- OUTSIDE RECORDS SUMMARY | 2024-07-09 08:49 | XMS_ITS | Encounter Summary ---
Author Organization [facility] Address [address] [place] [address]. [place], [place] [address] [place] [address] Care Team Providers Care Inspector Packer Glass Container Name Role Phone Lanre Parekh DO Primary Care Provider + Reason for Visit * Reason Comments Cough x 1 day Fever 100.5 being highest Chills Body Aches Sinus Problem sinus drainage Encounter Details Date Type Department Care Team (Late st Contact Info) Description 08/06/2019 11:00 AM OUTSIDE PLANT SUPERVISOR Office Visit [facility] Medical Group Family & Internal Medicine [address] [address] Lanre Parekh DO [address] [place] [address] Cough (x 1 day ); Fever [...] Sex Assigned at Male 07/01/2024 9:54 AM OUTSIDE PLANT SUPERVISOR Legal Sex Male 8:28 AM OUTSIDE PLANT SUPERVISOR Gender Identity Male 07/01/2024 9:54 AM OUTSIDE PLANT SUPERVISOR Sexual Orientation Not on file documented as of this encounter Last Filed Vital Signs Vital Sign Reading Time Taken Comments Blood Pressure 124/72 08/06/2019 11:26 AM OUTSIDE PLANT SUPERVISOR Pulse 79 08/06/2019 11:26 AM OUTSIDE PLANT SUPERVISOR Temperature 36.8 ??C (98.3 ??F) 08/06/2019 11:[address] Respiratory Rate 16 08/06/2019 11:26 AM OUTSIDE PLANT SUPERVISOR Oxygen Saturation 96% 08/06/2019 11:26 AM OUTSIDE PLANT SUPERVISOR Inhaled Oxygen Concentration - - Weight 81.2 kg (179 lb 1 oz) 08/06/2019 11:26 AM OUTSIDE PLANT SUPERVISOR Height 172.7 cm (5' 8 ) 08/06/2019 11:26 AM OUTSIDE PLANT SUPERVISOR Body Mass Index 27.23 08/06/2019 11:26 AM OUTSIDE PLANT SUPERVISOR documented in this encounter Progress Notes [...] least 2 continuous years, flagyl, Asacol, Azathioprine (7698-4765), Remicade (6037-7680, switched for insurance purposes), Hu ??? Iritis [...] ??? Multiple Vitamins-Minerals (MULTIVITAMIN ADULT OR) ??? [place]-3 Fatty Acids (CVS FISH OIL) 1000 MG Cap ??? oseltamivir (TAMIFLU) 75 MG capsule Take 1 capsule (75 mg total) by mouth 2 (two) times daily for 5 days. 10 capsule 0 ??? Probiotic Product (PROBIOTIC ADVANCED OR) ??? Turmeric Powder Take 1,500 mg by mouth. ??? vitamin D2, ergocalciferol, 40050 UNITS capsule Take 50,000 Units by mouth [...] ??? Multiple Vitamins-Minerals (MULTIVITAMIN ADULT OR) ??? [place]-3 Fatty Acids (CVS FISH OIL) 1000 MG Cap ??? Probiotic Product (PROBIOTIC ADVANCED OR) ??? Turmeric Powder Take 1,500 mg by mouth. ??? vitamin D2, ergocalciferol, 48155 UNITS capsule Take 50,000 Units by mouth [...] as needed for this. Lanre Parekh DO IDE PLANT SUPERVISOR documented in this encounter Plan of Treatment Not on file documented as of this encounter Procedures Procedure Name Priority Date/Time Associated Diagnosis Comments INFLUENZA A & B Routine 08/06/2019 Cough documented in this encounter Results * INFLUENZA A & B (08/06/2019) INFULENZA A AB POSITIVE NEGATIVE [facility] INFLUENZA B AB NEGATIVE NEGATIVE [facility] Internal Control: VALID VALID [facility] NASAL STRUCTURE / Unknown 08/06/2019 us Lanre Parekh DO MICROBIOLOGY - GENERAL O RDERABLES Final Result Performing Organization Address [facility] [place] [address], documented in this encounter Visit Diagnoses Diagnosis Influenza A- Primary Influenza with other respiratory manifestations Cough documented in this encounter Care Teams Inspector Packer Glass Container Relationship Specialty Start Date End Date Lanre Parekh DO [address] [place] [address] PCP - General FAMILY PRACTICE 06/28/18 09/06/22 documented as of this encounter
--- OUTSIDE RECORDS SUMMARY | 2024-07-09 08:49 | XMS_ITS | Encounter Summary ---
Author Organization [facility] Address [address] [place] [address]. [place], [place] [address] [place] [address] Care Team Providers Care Scruff Worker Name Role Phone Lanre Parekh DO [...] Sex Assigned at Male 07/01/2024 9:54 AM SHOWROOM SALES ASSISTANT Legal Sex Male 8:28 AM SHOWROOM SALES ASSISTANT Gender Identity Male 07/01/2024 9:54 AM SHOWROOM SALES ASSISTANT Sexual Orientation Not on file documented as of this encounter Plan of Treatment Not on file documented as of this encounter Visit Diagnoses Not on filedocumented in this encounter Additional Health Concerns Assessment Noted Time PHQ-9 Depression Total Score: 1 01/26/20 21 11:17 AM CDT documented as of this encounter Care Teams Scruff Worker Relationship Specialty Start Date End Date Lanre Parekh DO [address] [place] [address] PCP - General FAMILY PRACTICE 06/28/18 09/06/22 documented as of this encounter
--- OUTSIDE RECORDS SUMMARY | 2024-07-09 08:49 | XMS_ITS | Encounter Summary ---
Author Organization [facility] Address [address] [place] [address]. [place], [place] [address] [place] [address] Care Team Providers Care Making Machine Operator Name Role Phone Lanre Parekh DO Primary Care Provider + Encounter Details Date Type Department Care Team (Latest Contact Info) Description 01/25/2021 - 01/25/2021 11:59 PM CDT Hospital Encounter [facility] [address] [place] [address] Lanre Parekh DO [facility] [place] [address] Discharge Disposition: Home or Self [...] Sex Assigned at Male 07/01/2024 9:54 AM PROCUREMENT OFFICER Legal Sex Male 8:28 AM PROCUREMENT OFFICER Gender Identity Male 07/01/2024 9:54 AM PROCUREMENT OFFICER Sexual Orientation Not on file documented [...] skin every 14 (fourteen) days. 07/15/2018 4 [place]-3 Fatty Acids (CVS FISH OIL) 1000 MG Cap 09/08/19 2 3 Probiotic Product (PROBIOTIC ADVANCED OR) 3 Turmeric Powder Take 1,500 mg by mouth. 3 vitamin D2, ergocalciferol, 55513 UNITS capsule Take 50,000 Units by mouth [...] documented as of this encounter Care Teams Making Machine Operator Relationship Specialty Start Date End Date Lanre Parekh DO [address] [place] [address] PCP - General FAMILY PRACTICE 06/28/18 09/06/22 documented as of this encounter
--- OUTSIDE RECORDS SUMMARY | 2024-07-09 08:49 | XMS_ITS | Encounter Summary ---
Author Organization [facility] Address [address] [place] [address]. [place], [place] [address] [place] [address] Care Team Providers Care Assistant Education Director Name Role Phone Lanre Parekh DO Primary Care Provider + Reason for Visit * Reason Comments New Patient Sore Throat swollen lymph nodes Encounter Details Date Type Department Care Team (Late st Contact Info) Description 07/05/2018 7:00 AM INSTALLER APPRENTICE Office Visit [facility] Family & Internal Medicine [address] [address] Lanre Parekh DO [address] [place] [address] [phone] New Patient; Sore Throat (swollen lymph nodes) [...] Assigned at Male 07/01/2024 9:54 AM INSTALLER APPRENTICE Legal Sex Male 8:28 AM INSTALLER APPRENTICE Gender Identity Male 07/01/2024 9:54 AM INSTALLER APPRENTICE Sexual Orientation Not on file documented as of this encounter Last Filed Vital Signs Vital Sign Reading Time Taken Comments Blood Pressure 100/64 07/05/2018 7:34 AM INSTALLER APPRENTICE Pulse 82 07/05/2018 7:34 AM INSTALLER APPRENTICE Temperature - - Respiratory Rate 16 07/05/2018 7:34 AM INSTALLER APPRENTICE Oxygen Saturation 97% 07/05/2018 7:34 AM INSTALLER APPRENTICE Inhaled Oxygen Concentration - - Weight 78.9 kg (174 lb) 07/05/2018 7:34 AM INSTALLER APPRENTICE Height 172.7 cm (5' 8 ) 07/05/2018 7:34 AM INSTALLER APPRENTICE Body Mass Index 26.46 07/05/2018 7:34 AM INSTALLER APPRENTICE documented in this encounter Progress Notes * [...] least 2 continuous years, flagyl, Asacol, Azathioprine (6929-6325), Remicade (5926-3255, switched for insurance purposes), Hu ??? Osteoporosis [...] 3 months 05/19) ??? vitamin D2, ergocalciferol, 34098 UNITS capsule Take 50,000 Units by mouth. ??? Cholecalciferol (D3-1000) 1000 units capsule Take 1,000 Units by mouth. ??? Cyanocobalamin 100 MCG Lozenge ??? fexofenadine 180 MG tablet TK 1 T PO D 0 ??? folic acid 1 MG tablet TK 1 T PO D UTD 3 ??? Multiple Minerals-Vitamins (NUTRA-SUPPORT BONE) Cap ??? nystatin 615801 UNIT/ML suspension G 5 ML PO QID FOR 7 DAYS 0 ??? [place]-3 Fatty Acids (CVS FISH OIL) 1000 MG [...] 3 months 05/19) ??? vitamin D2, ergocalciferol, 59249 UNITS capsule Take 50,000 Units by mouth. ??? Cholecalciferol (D3-1000) 1000 units capsule Take 1,000 Units by mouth. ??? Cyanocobalamin 100 MCG Lozenge ??? fexofenadine 180 MG tablet TK 1 T PO D ??? folic acid 1 MG tablet TK 1 T PO D UTD ??? Multiple Minerals-Vitamins (NUTRA-SUPPORT BONE) Cap ??? nystatin 443809 UNIT/ML suspension G 5 ML PO QID FOR 7 DAYS ??? [place]-3 Fatty Acids (CVS FISH OIL) 1000 MG [...] how he is doing. Lanre Parekh DO ALLER APPRENTICE documented in this encounter Plan of Treatment Not on file documented as of this encounter Results * (ABNORMAL) C-REACTIVE PROTEIN (07/05/2018 3:07 PM INSTALLER APPRENTICE) C-REACTIVE PROTEIN 1.02(H) <0.29 mg/dL 07/05/2018 3:[address] [facility] 07/05/2018 3:07 PM INSTALLER APPRENTICE us Lanre Parekh DO LABORATORY Final Re sult [facility] [address] [place] [address], [place] [phone] * (ABNORMAL) SED RATE, ERYTHROCYTE (ESR) (07/05/2018 3:07 PM INSTALLER APPRENTICE) Pathologist [facility] ESR 34(H) 0 - 15 MM/HR 07/06/2018 1:03 PM INSTALLER APPRENTICE [facility] 07/05/2018 3:07 PM INSTALLER APPRENTICE Lanre Parekh DO LABORATORY Final Re sult [facility] [address] [place] [address], [place] [phone] * (ABNORMAL) COMPREHENSIVE METABOLIC PANEL (07/05/2018 3:07 PM INSTALLER APPRENTICE) [facility] GLUCOSE 90 70 - 99 MG/DL 07/05/2018 3:49 PM [facility] BUN 14 7 - 18 MG/DL 07/05/2018 3:49 PM [facility] CREATININE S/P/B 0.86 0.7 - 1.3 MG/DL 07/05/2018 3:49 PM [facility] SODIUM S/P/B 137 136 - 145 MMOL/L 07/05/2018 3:49 PM [facility] POTASSIUM S/P/B 4.2 3.5 - 5.1 MMOL/L 07/05/2018 3:49 PM [facility] CHLORIDE S/P/B 105 100 - 108 MMOL/L 07/05/2018 3:49 PM [facility] CO2 27.6 21 - 32 MMOL/L 07/05/2018 3:49 PM [facility] CALCIUM S/P/B 9.0 8.5 - 10.1 MG/DL 07/05/2018 3:49 PM [facility] BILIRUBIN TOTAL S/P/B 0.4 0.2 - 1.2 MG/DL 07/05/2018 3:49 PM [facility] TOTAL PROTEIN S/P/B 8.1 6.4 - 8.2 G/DL 07/05/2018 3:49 PM [facility] ALBUMIN S/P/B 4.1 3.4 - 5.0 G/DL 07/05/2018 3:49 PM [facility] AST 12(L) 15 - 37 U/L 07/05/2018 3:49 PM [facility] ALT 27 16 - 60 U/L 07/05/2018 3:49 PM [facility] ALKALINE PHOSPHATASE S/P/B 93 50 - 136 U/L 07/05/2018 3:49 PM [facility] ANION GAP 8.6 8 - 20 MMOL/L 07/05/2018 3:49 PM [facility] BUN CREATININE RATIO 16.4 6 - 26 07/05/2018 3:49 PM [facility] A/G RATIO 1.0 1.0 - 2.0 RATIO 07/05/2018 3:49 PM [facility] EGFR NON-AFR. AMER. >90 >90 ML/MIN/1.7 3 M2 07/05/2018 3:49 PM [facility] EGFR AFR. AMER. >90 >90 ML/MIN/1.7 3 M2 07/05/2018 3:49 PM [facility] Comment: NOTE: eGFR is not calculated for patients <18 years of age. This is an estimated GFR (CKD EPI) and should not be used for calculating drug doses. 07/05/2018 3:07 PM INSTALLER APPRENTICE Lanre Parekh DO LABORATORY Final Re sult [facility] [address] [place] [address], * (ABNORMAL) CBC W/DIFF AUTOMATED (07/05/2018 3:07 PM INSTALLER APPRENTICE) WBC 7.4 4.5 - 11.0 x10'3/uL 07/05/2018 3:37 PM [facility] RBC 4.33(L) 4.70 - 6.10 x10'6/uL 07/05/2018 3:37 PM [facility] HGB 13.0(L) 14.0 - 18.0 G/DL 07/05/2018 3:37 PM [facility] HCT 39.4(L) 43.0 - 54.0 % 07/05/2018 3:37 PM [facility] MCV 91.0 80.0 - 94.0 FL 07/05/2018 3:37 PM [facility] MCH 30.0 27.0 - 31.0 PG 07/05/2018 3:37 PM [facility] MCHC 33.0 32.0 - 36.0 G/DL 07/05/2018 3:37 PM [facility] RDW 13.5 11.5 - 14.5 % 07/05/2018 3:37 PM [facility] PLT 252 130 - 400 x10'3/uL 07/05/2018 3:37 PM [facility] MPV 10.2 9.3 - 12.2 FL 07/05/2018 3:37 PM [facility] DIFFERENTIAL TYPE AUTOMATED DIFFERENTIAL 07/05/2018 3:37 PM [facility] NEUTROPHILS % 54.8 % 07/05/2018 3:37 PM INSTALLER APPRENTICE [facility] LYMPHOCYTES % 35.6 % 07/05/2018 3:37 PM INSTALLER APPRENTICE [facility] MONOCYTES % 7.1 % 07/05/2018 3:37 PM INSTALLER APPRENTICE [facility] EOSINOPHILS 1.5 % 07/05/2018 3:37 PM INSTALLER APPRENTICE [facility] BASOPHILS 0.7 % 07/05/2018 3:37 PM INSTALLER APPRENTICE [facility] IMMATURE GRANS % 0.3(H) 0 % 07/05/19 19 3:37 PM INSTALLER APPRENTICE [facility] ABS. NEUTROPHILS TOTAL 4.07 1.80 - 7.70 x10'3/uL 07/05/2018 3:37 PM INSTALLER APPRENTICE [facility] ABS. LYMPHOCYTES 2.64 1.00 - 4.80 x10'3/uL 07/05/2018 3:37 PM INSTALLER APPRENTICE [facility] ABS. MONOCYTES 0.53 0.30 - 0.82 x10'3/uL 07/05/2018 3:37 PM INSTALLER APPRENTICE [facility] ABS. EOSINOPHILS 0.11 0.04 - 0.54 x10'3/uL 07/05/2018 3:37 PM INSTALLER APPRENTICE [facility] ABS. BASOPHILS 0.05 0.01 - 0.08 x10'3/uL 07/05/2018 3:37 PM INSTALLER APPRENTICE [facility] ABS. IMMATURE GRANULOCYTES 0.02 0.00 - 0.03 x10'3/uL 07/05/2018 3:37 PM INSTALLER APPRENTICE [facility] 07/05/2018 3:07 PM INSTALLER APPRENTICE us Lanre Parekh DO LABORATORY Final Re sult [facility] [address] [place] [address], * CMV ANTIBODY IGG (07/05/2018 3:07 PM INSTALLER APPRENTICE) CMV IGG <0.60 <0.60 U/mL 07/10/2018 9:01 AM INSTALLER APPRENTICE [employer] MIMI GIL Comment: ??U/mL ? Interpretation ? <0.60 ?? Negative 0.60 - 0.69 ?? Equivocal > or = 0.70 ?? 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 ??It does not differentiate between an active or past infection. Test Performed by Valerie Au, [employer], [address] [place], [place] Sai Dodson M.D., Ph.D., Director of Laboratories , [facility] [id number] 07/05/2018 3:07 PM INSTALLER APPRENTICE Lanre Parekh DO LABORATORY Final Re sult [facility] [address] [place] [address], * CMV ANTIBODY, IGM (07/05/2018 3:07 PM INSTALLER APPRENTICE) CMV IGM <30.00 <30.00 AU/mL 07/09/2018 10:40 AM INSTALLER APPRENTICE [employer]ANDREW GIL Comment: ?? AU/mL ? Interpretation ? [...] two or more weeks. Test Performed by [employer] Val[address] [facility], [address] [place], [place] Sai Dodson M.D., Ph.D., Director of Laboratories , CLIA [id number] 07/05/2018 3:07 PM INSTALLER APPRENTICE Lanre Parekh DO LABORATORY Final Re sult [facility] [address], * (ABNORMAL) YUNI BAKER VIRAL CAP[employer] AG, AB IGG (07/05/2018 3:07 PM INSTALLER APPRENTICE) Pathologist [facility] EBV VCA IGG 240.00(H) <18.00 U/mL 07/09/2018 4:31 PM INSTALLER APPRENTICE [employer] MIMI GIL Comment: ?? U/mL ?Interpretation ?<18.00 ?Negative 18.00 - 21.99 ?Equivocal ??>21.99 ?Positive Test Performed by [facility] Medical[facility] [address] [facility], [address] [place], [place] Sai Dodson M.D., Ph.D., Director of Laboratories , CLIA [id number] 07/05/2018 3:07 PM INSTALLER APPRENTICE us Lanre Parekh DO LABORATORY Final Re sult [facility] [address] [place] [address], [place] [phone] * CULTURE, FUNGUS W/ STAIN (07/05/2018 3:02 PM INSTALLER APPRENTICE) SPEC DESCRIPTION MOUTH 07/05/2018 3:03 PM INSTALLER APPRENTICE [facility] SPECIAL REQUESTS NO SPECIAL REQUEST 07/05/2018 3:03 PM INSTALLER APPRENTICE [facility] STAIN RESULT: NO YEAST OR FUNGAL ELEMENTS SEEN 07/06/2018 1:54 PM [facility] CULTURE RESULT NO FUNGUS ISOLATED AT 4 WEEKS. 08/04/2018 1:08 PM [facility] ORAL CAVITY SPECIMEN / Unknown 07/05/2018 3:02 PM INSTALLER APPRENTICE 07/05/2018 3:29 PM INSTALLER APPRENTICE Lanre Parekh DO MICROBIOLOGY - GENERAL O RDERABLES Final Result Performing Organization Address City/[facility]/ZIP Co de Phone Number [facility] [address] [place] [address], [place] [phone] * CULTURE THROAT ALL ORG (07/05/2018 3:02 PM INSTALLER APPRENTICE) SPEC DESCRIPTION THROAT 07/05/2018 3:02 PM INSTALLER APPRENTICE [facility] SPECIAL REQUESTS NO SPECIAL REQUEST 07/05/2018 3:02 PM INSTALLER APPRENTICE [facility] CULTURE RESULT HEAVY GROWTH OF NORMAL CANDACE PRESENT 07/07/2018 8:21 AM INSTALLER APPRENTICE [facility] THROAT SWAB / Unknown 07/05/2018 3:02 PM INSTALLER APPRENTICE 07/05/2018 3:28 PM INSTALLER APPRENTICE Lanre Parekh DO MICROBIOLOGY - GENERAL O RDERABLES Final Result [facility] [address] [place] [address], documented in this encounter Visit Diagnoses Diagnosis Pharyngitis due to other organism- Primary Sore throat Acute pharyngitis documented in this encounter Care Teams Assistant Education Director Relationship Specialty Start Date End Date Lanre Parekh DO [address] [place] [address] PCP - General FAMILY PRACTICE 06/28/18 09/06/22 documented as of this encounter
--- OUTSIDE RECORDS SUMMARY | 2024-07-09 08:49 | XMS_ITS | Encounter Summary ---
Author Organization [facility] Address [address] [place] [address]. [place], [place] [address] [place] [address] Care Team Providers Care Library Supervisor Name Role Phone Lanre Parekh DO Primary Care Provider + Reason for Visit * Reason Comments Headache x 2 days Body Aches Encounter Details Date Type Department Care Team (Late st Contact Info) Description 01/25/2021 11:00 AM CDT Telemedicine [facility] Family & Internal Medicine [address] [address] Lanre Parekh DO [facility] [place] [address] Headache (x 2 days); Body [...] Sex Assigned at Male 07/01/2024 9:54 AM CHIEF LOCK TENDER OPERATOR Legal Sex Male 8:28 AM CHIEF LOCK TENDER OPERATOR Gender Identity Male 07/01/2024 9:54 AM CHIEF LOCK TENDER OPERATOR Sexual Orientation Not on file documented as of this encounter Progress Notes * Lanre Parekh DO - 01/25/2021 11:00 AM CDT Images from the original note were not included. GENERAL OFFICE VISIT Encounter Date: 01/25/2021 I introduced and identified myself, received verbal consent from the patient to proceed with this video visit and made the patient aware that the same confidentiality and geospatial information technologist practices apply. The patient joined the video [...] least 2 continuous years, flagyl, Asacol, Azathioprine (2859-0142), Remicade (1091-0222, switched for insurance purposes), Hu ??? Iritis [...] Gatherings with Friends and Family: ??? Attends Hoahaoism Services: ??? Active Member of Clubs or [...] ??? Multiple Vitamins-Minerals (MULTIVITAMIN ADULT OR) ??? [place]-3 Fatty Acids ([facility]S FISH OIL) 1000 MG Cap ??? Probiotic Product (PROBIOTIC ADVANCED OR) ??? Turmeric Powder Take 1,500 mg by mouth. ??? allopurinol 100 MG tablet ??? vitamin D2, ergocalciferol, 37323 UNITS capsule Take 50,000 Units by mouth [...] ??? Multiple Vitamins-Minerals (MULTIVITAMIN ADULT OR) ??? [place]-3 Fatty Acids (CVS FISH OIL) 1000 MG Cap ??? Probiotic Product (PROBIOTIC ADVANCED OR) ??? Turmeric Powder Take 1,500 mg by mouth. ??? allopurinol 100 MG tablet ??? vitamin D2, ergocalciferol, 74348 UNITS capsule Take 50,000 Units by mouth [...] unspecified type - CORONAVIRUS (COVID 19) PCR ([facility]); Future - CORONAVIRUS (COVID-19) ANTIGEN - azithromycin (ZITHROMAX) 250 MG tablet; Take 2 tabs daily the first day, then take 1 tab daily - CORONAVIRUS (COVID 19) PCR ([facility]) Body aches - CORONAVIRUS (COVID 19) PCR ([facility]); Future - CORONAVIRUS (COVID-19) ANTIGEN - azithromycin (ZITHROMAX) 250 MG tablet; Take 2 tabs daily the first day, then take 1 tab daily - CORONAVIRUS (COVID 19) PCR ([facility]) Discussion/Summary: Will need rapid and PCR COVID [...] Results * (ABNORMAL) CORONAVIRUS (COVID 19) PCR ([facility]) (01/25/2021 12:14 PM CDT) SPEC DESCRIPTION NASOPHARYNGEAL SWAB 01/25/2021 12:15 PM CDT [facility] CORONAVIRUS SARS COV 2 PCR (RESP) POSITIVE(AA) NEGATIVE 01/27/2021 2:23 AM CDT [facility] Comment: THE SARS-CoV-2 TEST HAS BEEN AUTHORIZED BY THE FDA UNDER AN EUA FOR USE BY AUTHORIZED LABORATORIES. PERFORMED BY NUCLEIC ACID AMPLIFICATION PCR FIRST TEST YES 01/25/2021 12:15 PM CDT [facility] EMPLOYED IN HEALTHCARE NO 01/25/2021 12:15 PM CDT [facility] SYMPTOMATIC DEFINED BY CDC YES 01/25/2021 12:15 PM CDT [facility] DATE OF SYMPTOM ONSET [id number] 01/25/2021 12:15 PM CDT [facility] HOSPITALIZATION STATUS NO 01/25/2021 12:15 PM CDT [facility] PATIENT IN ICU NO 01/25/2021 12:15 PM CDT [facility] RESIDENT OF [facility] NO 01/25/2021 12:15 PM CDT [facility] NASOPHARYNGEAL SWAB / Unknown 01/25/2021 12:14 PM CDT us Lanre Parekh DO MICROBIOLOGY - GENERAL O RDERABLES Final Result [facility] [address] [place] [address], * (ABNORMAL) CORONAVIRUS (COVID-19) ANTIGEN (01/25/2021) CORONAVIRUS ANTIGEN IA POSITIVE( A) NEGATIVE [facility] Internal Control: VALID VALID [facility] Specimen from nose (specimen) NASAL STRUCTURE / Unknown 01/25/2021 us Lanre Parekh DO MICROBIOLOGY - GENERAL O RDERABLES Final Result [facility] [address] [place] [address], documented in this encounter Visit Diagnoses Diagnosis Fatigue, unspecified type- Primary Body aches Generalized pain documented in this encounter Additional Health Concerns Infection Onset Date Last Indicated Resolved Time COVID-19 Rule Out 01/25/2021 01/25/2021 01/25/2021 12:15 PM CDT Assessment Noted Time PHQ-9 Depression Total Score: 1 01/26/20 21 11:17 AM CDT documented as of this encounter Care Teams Library Supervisor Relationship Specialty Start Date End Date Lanre Parekh DO [address] [place] [address] PCP - General FAMILY PRACTICE 06/28/18 09/06/22 documented as of this encounter
--- OUTSIDE RECORDS SUMMARY | 2024-07-09 08:49 | XMS_ITS | Encounter Summary ---
Author Organization [facility] Address [address] [place] [address]. [place], [place] [phone] [place] [address] Care Team Providers Care Hospital Coder Name Role Phone Lanre Parekh DO Primary Care Provider + Reason for Visit * Reason Comments Colonoscopy/EGD (SCAN) Encounter Details Date Type Department Care Team ([facility] Contact Info) Description 08/29/2019 Scan [facility] [...] Sex Assigned at Male 07/01/2024 9:54 AM GRADE FOREMAN Legal Sex Male 8:28 AM GRADE FOREMAN Gender Identity Male 07/01/2024 9:54 AM GRADE FOREMAN Sexual Orientation Not on file documented as of this encounter Plan of Treatment Not on file documented as of this encounter Procedures Procedure Name Priority Date/Time Associated Diagnosis Comments COLONOSCOPY/EGD GENERIC (SCA N ORDER) Routine 08/29/2019 documented in this encounter Results * COLONOSCOPY/EGD (08/29/2019) us Documents Scanned SCANNING Edited Result - Final [facility] documented in this encounter Visit Diagnoses Not on filedocumented in this encounter Care Teams Hospital Coder Relationship Specialty Start Date End Date Lanre Parekh DO [facility] [place] [address] PCP - General FAMILY PRACTICE 06/28/18 09/06/22 documented as of this encounter
--- OUTSIDE RECORDS SUMMARY | 2024-07-09 08:49 | XMS_ITS | Encounter Summary ---
Author Organization [facility] Address [address] [place] [address]. [place], [place] [address] [place] [address] Care Team Providers Care Global Logistics Manager Name Role Phone Lanre Parekh DO [...] Sex Assigned at Male 07/01/2024 9:54 AM SANDING MACHINE OPERATOR OR TENDER Legal Sex Male 8:28 AM SANDING MACHINE OPERATOR OR TENDER Gender Identity Male 07/01/2024 9:54 AM SANDING MACHINE OPERATOR OR TENDER Sexual Orientation Not on file documented as of this encounter Plan of Treatment Not on file documented as of this encounter Visit Diagnoses Not on filedocumented in this encounter Additional Health Concerns Assessment Noted Time PHQ-9 Depression Total Score: 1 01/26/20 21 11:17 AM CDT documented as of this encounter Care Teams Global Logistics Manager Relationship Specialty Start Date End Date Lanre Parekh DO [address] [place] [address] PCP - General FAMILY PRACTICE 06/28/18 09/06/22 documented as of this encounter
--- OUTSIDE RECORDS SUMMARY | 2024-07-09 09:10 | XMS_ITS | Clinical Summary ---
Author Organization [facility] Address [address] [address] Phone Care Team Providers Care Gluer Name Role Phone Trenton Bess MD Primary Care Provider [phone] Allergies Active Allergy Reactions Criticality Noted Date Comments Metronidazole Unknown Medications Multiple Minerals-Vitami ns (NUTRA-SUPPORT BONE) Capsule Active [place]-3 Fatty Acids ([employer] FISH OIL) 1000 MG [...] patient's age to complete this topic Insurance [address] Care Teams Gluer Relationship Specialty Start Date End Date Trenton Bess MD [address] [facility] [address] [place] [address] PCP - General Internal Medicine 10/17/16
--- OUTSIDE RECORDS SUMMARY | 2024-07-09 09:29 | XMS_ITS | Encounter Summary ---
Author Organization [facility] Address [address] [place] [address] Care Team Providers Care Inspector Soldering Name Role Phone Not Found, Stl Primary Care Provider Unavailabl e Reason for Visit * Auth/Cert - Closed Specialty Diagnoses / Procedures Referred By Renay rivero Referred To Contact General Surgery Procedures COLONOSCOPY [facility] [address] [facility] [address] [place] [address] Referral ID Status Reason Start Date Expiration Date Visits Re quested Visits Authorized [id number] Closed 1 1 Encounter Details Date Type Department Care Team (Late st Contact Info) Description 11/04/2012 10:45 AM CDT - 11/04/2012 11:30 AM CDT Surgery [facility] [address] [address] [address] [place] [address] Shaina Swan MD [address] [facility] [address] [place] [address] COLONOSCOPY Surgery Details Date/Time Status Location OR Service Patient Class Case Class Case Type Trauma Case? 11/04/2012 10:45 AM Posted STLO CC OR CC OR GI Only Gastroenterology Outpatient No Panel 1 Procedure LRB Anes Op Region Wound Class Comments COLONOSCOPY N/A General Anus Clean Contaminated -II Surgeon Surgeon Role Service Panel Shaina Swan MD Primary Gastroenterology 1 documented in this encounter Social History [...] Sign Reading Time Taken Comments Blood Pressure 115/62 11/04/2012 9:44 AM CDT Pulse 64 11/04/2012 9:44 AM CDT Temperature 37.3 ??C (99.1 ??F) 11/04/2012 9:44 AM CD T Respiratory Rate 11 11/04/2012 9:44 AM CDT Oxygen Saturation 100% 11/04/2012 9:44 AM CDT Inhaled Oxygen Concentration - - [...] severe or gets worse throughout the day. [facility] [phone] documented in this encounter Medications at Time [...] documented in this encounter Procedure Notes * Scanning, Stl - 11/04/2012 11:37 AM CDTAssociated Order(s): GI REPORT Electronically signed by Interface, Olayinka Stelyse Telecommunications Repairer Incoming at 11/04/2012 11:37 AM CDT * Shaina Swan MD - 11/04/2012 11:36 AM CDTAssociated Order(s): GI REPORT [facility] Patient Name: Nic Teran Procedure Date No Time: 11/04/2012 Date of : 1990 Admit Type: Outpatient Age: 22 Attending MD: Shaina Swan MD Procedure: Colonoscopy Indications: Established Crohn's disease of the colon Providers: Shaina Swan MD [address] [facility] [address] [place] [address] Referring MD: Neil Not Found Medicines: Monitored [...] been signed electronically. Number of Addenda: [phone] [place] [address] documented in this encounter OR Notes * [...] performing at patient's prior level of function (11/04/12 1149) [2=able to stand up and walk straight, on ordered bedrest, or performing at patient's prior level of function, 1=vertigo when erect, 0=dizziness when supine] TEMPERATURE: Temp: 97.8 ??F (36.6 ??C) (11/04/12 1134) PAIN: Presence of Pain: denies pain/discomfort (11/04/12 1148) Pain: pain free (11/04/12 114) [2=pain free, 1=pain handled by oral medication, [...] Teran Age: 22 y.o. Sex: male CSN: [id number] Procedure: Procedure(s): COLONOSCOPY Surgeons/Assistants: Surgeon(s) and Role: [...] PATHOLOGY (11/04/2012 1:09 PM CDT) SURGICAL PATHOLOGY ?[facility] ?[address] ? [place], [place] ??[address] ? Patient: ??LALI NIC Pickering ? : ??1990 ? Procedure Date: ??11/04/2012 ? Accession Date: ??11/04/2012 ? Case No: ??[id number] ? Ordering Dr: ??SHAIAN SWAN ? Case type SW is performed by [facility], [address], ? [place], [place] ??[address]; all other case types are performed by [facility] ? [facility], [address] [place], [place] ??[address] ?SURGICAL PATHOLOGY & NON-GYNECOLOGIC CYTOPATHOLOGY REPORT ? [...] ? Received are three containers labeled Nic LadanMichelle Teran. Received in the ? first container [...] ? Microscopic: ? The slides are labeled [id number] and Nic Teran. ? The sections of [...] FOR KAREN MOTTA M.D.- 11/05/12 02:18 pm [facility] 11/04/2012 1:09 PM CDT Shaina Swan MD PATHOLOGY/CYTOLOGY ORDERABLES [facility] CLIA# [id number] [address] [place] [address] * GI REPORT (11/04/2012 11:37 AM CDT) Narrative Transcriptions Shaina Swan MD - 11/04/2012 11:36 AM CDT [facility] Patient Name: Nic Teran Procedure Date No Time: 11/04/2012 Date of : 1990 Admit Type: Outpatient Age: 22 Attending MD: Shaina Swan MD Procedure: Colonoscopy Indications: Established Crohn's disease of the colon Providers: Shaina Swan MD [address] [facility] [address] [place] [address] Referring MD: Neil Not Found Medicines: Monitored [...] been signed electronically. Number of Addenda: [phone] [address] Scanning, Stl - 11/04/2012 11:37 AM CDT Shaina Swan [...] at 150 mL/hr, PRE-PROCEDURE CONTINUOUS, Starting on 11/04/12 at 0945, Until Sun11/04/12 at 1419, Routine, Pre-op 0956 (New Bag - Prov ider: Randi Godoy RN)1150 (Stopped - Provider: Dina Tinajero RN) documented in this encounter Care Teams Inspector Soldering Relationship Specialty Start Date End Date Not Found, Stl NO ADDRESS ON FILE PCP - General 10/31/12 documented as of this encounter
--- OUTSIDE RECORDS SUMMARY | 2024-07-09 09:29 | XMS_ITS | Encounter Summary ---
Author Organization [facility] Address [address] [place] [address] Care Team Providers Care Sagger Preparer Name Role Phone Not Found, Stl Primary Care Provider Unavailabl e Reason for Visit * Auth/Cert - Closed Specialty Diagnoses / Procedures Referred By Renay rivero Referred To Contact General Surgery Procedures COLONOSCOPY [facility] [address] [facility] [address] [place] [address] Referral ID Status Reason Start Date Expiration Date Visits Re quested Visits Authorized [id number] Closed 1 1 Encounter Details Date Type Department Care Team (Late st Contact Info) Description 11/04/2012 9:11 AM CDT - 11/04/2012 12:04 PM CDT Hospital Encounter [facility] [place] BRAY [address] [facility] [address] [place] [address] Shaina Swan MD [address] [facility] [address] [place] [address] Discharge Disposition: Home or Self [...] severe or gets worse throughout the day. [facility] [phone] documented in this encounter Medications at Time [...] AM CDTAssociated Order(s): GI REPORT [facility] Patient Name: Nic Teran Procedure Date No Time: 11/04/2012 Date of : 1990 Admit Type: Outpatient Age: 22 Attending MD: Shaina Swan MD Procedure: Colonoscopy Indications: Established Crohn's disease of the colon Providers: Shaina Swan MD [address] [place] [address] [address] [place] [address] Referring MD: Neil Not Found Medicines: Monitored [...] been signed electronically. Number of Addenda: [phone] [facility] [address] [place] [address] documented in this encounter OR Notes * [...] Teran Age: 22 y.o. Sex: male CSN: [id number] Procedure: Procedure(s): COLONOSCOPY Surgeons/Assistants: Surgeon(s) and Role: [...] PATHOLOGY (11/04/2012 1:09 PM CDT) SURGICAL PATHOLOGY ?[facility] ?[address] ? [place], [place] ??[address] ? Patient: ??NIC TERAN ? : ??1990 ? Procedure Date: ??11/04/2012 ? Accession Date: ??11/04/2012 ? Case No: ??[id number] ? Ordering Dr: ??SHAINA SWAN ? Case type SW is performed by [facility], [address], ? [place] ??[address]; all other case types are performed by [facility] ? [facility], [address] [place], [place] ??[address] ?SURGICAL PATHOLOGY & NON-GYNECOLOGIC CYTOPATHOLOGY REPORT ? [...] ? Received are three containers labeled Nic Tearn. Received in the ? first container labeled [...] ? Microscopic: ? The slides are labeled [id number] and Nic Teran. ? The sections of [...] FOR KAREN MOTTA M.D.- 11/05/12 02:18 pm [facility] 11/04/2012 1:09 PM CDT Shaina Swan MD PATHOLOGY/CYTOLOGY ORDERABLES [facility] [id number] [address] [place] [address] * GI REPORT (11/04/2012 11:37 AM CDT) Narrative Transcriptions Shaina Swan MD - 11/04/2012 11:36 AM CDT Leonie Pined[facility] Patient Name: Nic Teran Procedure Date No Time: 11/04/2012 Date of : 1990 Admit Type: Outpatient Age: 22 Attending MD: Shaina Swan MD Procedure: Colonoscopy Indications: Established Crohn's disease of the colon Providers: Shaina Swan MD [address] [place] [address] [address] [place] [address] Referring MD: Neil Not Found Medicines: Monitored [...] been signed electronically. Number of Addenda: [phone] [facility] [address] [place] [address] Neil Banks - 11/04/2012 11:37 AM CDT [...] RN) documented in this encounter Care Teams Sagger Preparer Relationship Specialty Start Date End Date Not Found, Stl NO ADDRESS ON FILE PCP - General 10/31/12 documented as of this encounter
--- OUTSIDE RECORDS SUMMARY | 2024-07-09 09:29 | XMS_ITS | Clinical Summary ---
Author Organization [facility] Address [address] [place] [place] [address] Phone Care Team Providers Care Biblical Studies Professor Name Role Phone Not Found, Stl Primary Care Provider Unavailabl e Allergies No known active allergies Medications Medication Sig Dispensed Refills Start Date End Date Status adalimumab (HUMIRA) 40 mg/0.8 mL subCUT KitIndications:Croh n's disease Inject 0.8 mL by subcutaneous injection every 2 weeks. 6 Kit 3 11/23/2009 Active metroNIDAZOLE ER (FLAGYL ER) 750 mg Oral TbSRIndications:Stores Assistant hn's disease Take 1 Tab by mouth [...] Advance Directives For more information, please contact: [phone] * Full Code (Latest Code Status on File) Date Activated Date Inactivated Comments 11/04/2012 9:37 AM 11/04/2012 2:19 PM Care Teams Biblical Studies Professor Relationship Specialty Start Date End Date Not Found, Stl NO ADDRESS ON FILE PCP - General 10/31/12
--- OUTSIDE RECORDS SUMMARY | 2024-07-09 09:30 | XMS_ITS | Encounter Summary ---
Author Organization [facility] Address [address] [place] [address] Care Team Providers Care Log Peeler Name Role Phone Karol Tran MD Primary Care Provider [phone] Encounter Details Date Type Department Care Team (Late st Contact Info) Description 03/21/2011 Abstract [facility] [address] [facility] [place] [address] Jamie Crowder MD [address] [facility] [address] [place] [address] Social History Tobacco Use Types [...] on filedocumented in this encounter Care Teams Log Peeler Relationship Specialty [place] [address] [place] [address] PCP - General 02/10/05 10/30/12 documented as of this encounter
--- OUTSIDE RECORDS SUMMARY | 2024-07-09 09:31 | XMS_ITS | Encounter Summary ---
Author Organization [facility] Address [address] [place] [address] Care Team Providers Care Assembler [employer] Spider Name Role Phone Karol Tran MD Primary Care Provider [phone] Encounter Details Date Type Department Care Team (Late st Contact Info) Description 10/13/2010 Orders Only [facility] Admitting [address] [place] [address] Jaycob Waller MD [address] [facility] [address] [place] [address] Regional enteritis of unspecified site (Primary Dx) [...] >/=30 ng/mL. ? Lab test performed by: [place] [address] [place] [address] JOY MATIAS MD,FCAP VITAMIN D, 25 OH, D2 <4 ng/mL [facility] VITAMIN D, 25 OH, TOTAL 32 30 - 100 ng/mL [facility] Blood specimen (specimen) 10/13/2010 11:00 AM CDT 10/13/2010 11:18 AM CDT Jaycob Waller MD CHEMISTRY ORDERABL ES Performing Organization Address [facility] de Phone Number [facility] CLIA# [id number] [address] [facility] [place], [place] [address] * VITAMIN B12 LEVEL (10/13/2010 11:00 AM [...] MD CHEMISTRY ORDERABL ES Performing Organization Address [facility] Co de Phone Number [facility] CLIA# [id number] [address] [place] [address] * CBC WITH DIFFERENTIAL (10/13/2010 11:00 AM [...] LAB NEUTROPHILS 62 45 - 70 % [facility] LYMPHOCYTES 29 16 - 45 % [facility] MONOCYTES 8 3 - 13 % [facility] EOSINOPHILS 1 0 - 7 % [facility] BASOPHILS 1 0 - 2 % [...] [facility] CLIA# [id number] [address] [facility] [place] [address] * COMPREHENSIVE METABOLIC PANEL (10/13/2010 11:00 AM [...] LAB ALT 41 0 - 41 U/L [facility] GFR, >60 >=60 mL/min/1.7 sq meter [facility] GFR >60 >=60 mL/min/1.7 sq meter [facility] Comment: Modification of Diet in Renal Disease (MDRD) study formula. Estimated GFR rate interpretative information for both Americans and non- Americans is available on the [facility] Intranet at: [email or web address] Select: Lab Policies and Procedures Select: Reference Ranges - GFR Blood specimen (specimen) 10/13/2010 11:00 AM CDT 10/13/2010 11:17 AM CDT Jaycob Waller MD CHEMISTRY ORDERABL ES [facility] CLIA# [id number] [address] [place] [address] documented in this encounter Visit Diagnoses Diagnosis Regional enteritis of unspecified site Regional enteritis of unspecified site- Primary documented in this encounter Care Teams Assembler [employer] Spider Relationship Specialty [place] [address] [place] [address] PCP - General 02/10/05 10/30/12 documented as of this encounter
--- OUTSIDE RECORDS SUMMARY | 2024-07-09 09:32 | XMS_ITS | Encounter Summary ---
Author Organization [facility] Address [address] [place] [address] Care Team Providers Care Trauma Counsellor Name Role Phone Karol Tran MD Primary Care Provider [phone] Reason for Visit * Reason Comments Follow Up for crohn's Encounter Details Date Type Department Care Team (Late st Contact Info) Description 05/25/2009 1:45 PM DIRECTOR OF INSTRUMENTAL MUSIC Office Visit [facility] [address] [facility] [address] [address] [place] [address] [place] [address] Crohn's Disease (Primary Dx) Social [...] (152 lb 1.9 oz) 05/25/2009 1:43 PM DIRECTOR OF INSTRUMENTAL MUSIC Height 169 cm (5' 6.54 ) 05/25/2009 1:43 PM DIRECTOR OF INSTRUMENTAL MUSIC Body Mass Index 24.16 05/25/2009 1:43 PM DIRECTOR OF INSTRUMENTAL MUSIC documented in this encounter Progress Notes * Karol Tran MD - 05/25/2009 1:55 PM CST Nic Teran is a 18 y.o. male presents for follow-up evaluation. The nutritional assistant is Karol Tran MD Chief Complaint Patient [...] Patient Instructed to follow-up in 6 months CTOR OF INSTRUMENTAL MUSIC documented in this encounter Plan of Treatment Not on file documented as of this encounter Visit Diagnoses Diagnosis Crohn's disease- Primary Regional enteritis of unspecified site documented in this encounter Care Teams Trauma Counsellor Relationship Specialty [place] [address] [place] [address] PCP - General 02/10/05 10/30/12 documented as of this encounter
--- OUTSIDE RECORDS SUMMARY | 2024-07-09 09:32 | XMS_ITS | Encounter Summary ---
Author Organization [facility] Address [address] [place] [address] Care Team Providers Care Ad Terminal Makeup Operator Name Role Phone Karol Tran MD Primary Care Provider [phone] Reason for Visit * Reason Comments Follow Up for crohn's Encounter Details Date Type Department Care Team (Late st Contact Info) Description 11/23/2009 1:15 PM CDT Office Visit [facility] [address] [facility] [address] [address] [place] [address] [place] [address] Crohn's Disease (Primary Dx) Social [...] y.o. male presents for follow-up evaluation. The electrical continuity inspector is Karol Tran MD Chief Complaint Patient [...] script. 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
--- OUTSIDE RECORDS SUMMARY | 2024-07-09 09:32 | XMS_ITS | Encounter Summary ---
Author Organization [facility] Address [address] [place] [address] Care Team Providers Care Clinical Nursing Manager Name Role Phone Karol Tran MD Primary Care Provider [phone] Encounter Details Date Type Department Care Team (Late st Contact Info) Description 07/20/2010 3:45 PM TEACHER ADULT EDUCATION - 07/20/2010 11:59 PM [facility] Hospital Encounter [facility] Laboratory Services Medical [place] [address], [place] [address] Jaycob Waller MD [address] [place] [address] Discharge Disposition: Home or Self Care Social [...] TRANSGLUTAMINASE IGA ANTIBODY Routine 07/20/2010 4:15 PM TEACHER ADULT EDUCATION TRANSGLUTAMINASE IGG ANTIBODY Routine 07/20/2010 4:15 PM TEACHER ADULT EDUCATION IRON, TIBC, AND PERCENT SATURATION Routine 07/20/2010 4:15 PM TEACHER ADULT EDUCATION Regional enteritis of unspecified site TRANSGLUTAMINASE AB IGG/IGA Routine 07/20/2010 4:15 PM TEACHER ADULT EDUCATION Regional enteritis of unspecified site CBC WITH DIFFERENTIAL Routine 07/20/2010 4:15 PM TEACHER ADULT EDUCATION Regional enteritis of unspecified site VITAMIN D 25 HYDROXY Routine 07/20/2010 4:15 PM TEACHER ADULT EDUCATION Regional enteritis of unspecified site IGA Routine 07/20/2010 4:15 PM TEACHER ADULT EDUCATION Regional enteritis of unspecified site FERRITIN Routine 07/20/2010 4:15 PM TEACHER ADULT EDUCATION Regional enteritis of unspecified site VITAMIN B12 LEVEL Routine 07/20/2010 4:1 5 PM TEACHER ADULT EDUCATION Regional enteritis of unspecified site COMPREHENSIVE METABOLIC PANEL Routine 07/20/2010 4:15 PM TEACHER ADULT EDUCATION Regional enteritis of unspecified site documented in this encounter Results * TRANSGLUTAMINASE IGA ANTIBODY (07/20/2010 4:15 PM TEACHER ADULT EDUCATION) TRANSGLUTAMINASE IGA AB <3 <5 U/mL [facility] Comment: Reference range: ? <5 U/mL ?? Negative ?5-8 U/mL ?? Equivocal ? >8 U/mL ?? Positive ? Lab test performed by: [employer] [facility] [place] [id number] [place] [phone] RAH VIEIRA MD Blood specimen (specimen) 07/20/2010 4:15 PM TEACHER ADULT EDUCATION 07/20/2010 4:38 PM TEACHER ADULT EDUCATION Narrative [facility] - 07/22/2010 9:29 PM TEACHER ADULT EDUCATION FAX THE RESULT TO [phone] Jaycob Waller MD CHEMISTRY ORDERABL ES Performing Organization Address [facility] de Phone Number [facility] CLIA# [id number] [address] [place] [address] * TRANSGLUTAMINASE IGG ANTIBODY (07/20/2010 4:15 PM TEACHER ADULT EDUCATION) TRANSGLUTAMINASE IGG AB <3 <7 U/mL [facility] Comment: Reference range: ? <7 U/mL ?? Negative ?? 7-10 U/mL ?? Equivocal ?>10 U/mL ?? Positive ? Lab test performed by: [employer] [facility] [place] [address] [place] [phone] RAH VIEIRA MD Blood specimen (specimen) 07/20/2010 4:15 PM TEACHER ADULT EDUCATION 07/20/2010 4:38 PM TEACHER ADULT EDUCATION Narrative [facility] - 07/23/2010 1:45 PM TEACHER ADULT EDUCATION FAX THE RESULT TO [phone] Jaycob Waller MD CHEMISTRY ORDERABL ES Performing Organization Address [facility] de Phone Number [facility] CLIA# [id number] [address] [place] [address] * TRANSGLUTAMINASE AB IGG/IGA (07/20/2010 4:15 PM TEACHER ADULT EDUCATION) COMMENT See additional orderables. [facility] Blood specimen (specimen) 07/20/2010 4:15 PM TEACHER ADULT EDUCATION 07/20/2010 4:38 PM TEACHER ADULT EDUCATION Narrative [facility] - 07/22/2010 9:29 PM TEACHER ADULT EDUCATION FAX THE RESULT TO [phone] Jaycob Waller MD CHEMISTRY ORDERABL ES Performing Organization Address [facility] Co de Phone Number [facility] CLIA# [id number] [address] [place] [address] * IRON AND TIBC (07/20/2010 4:15 PM TEACHER ADULT EDUCATION) IRON 82 45 - 160 ug/dL [facility] IRON % SATURATION 29 20 - 50 % [facility] TIBC 287 250 - 450 ug/dL [facility] TRANSFERRIN 226 200 - 360 mg/dL [facility] Blood specimen (specimen) 07/20/2010 4:15 PM TEACHER ADULT EDUCATION 07/20/2010 4:38 PM TEACHER ADULT EDUCATION Narrative [facility] - 07/20/2010 5:19 PM TEACHER ADULT EDUCATION FAX THE RESULT TO [phone] Jaycob Waller MD CHEMISTRY ORDERABL ES Performing Organization Address [facility] Co de Phone Number [facility] CLIA# [id number] [address] [place] [address] * (ABNORMAL) VITAMIN D 25 HYDROXY (07/20/2010 4:15 PM TEACHER ADULT EDUCATION) VITAMIN D, 25 OH, D3 20 ng/mL [facility] Comment: 25-OHD3 indicates both endogenous production and supplementation. 25-OHD2 is an indicator of exogenous sources such as diet or supplementation. Therapy is based on measurement of Total 25-OHD, with levels <20 ng/mL indicative of Vitamin D deficiency while levels between 20 ng/mL and 30 ng/mL suggest insufficiency. Optimal levels are >/=30 ng/mL. ? Lab test performed by: [employer] [id number] [place] [phone] JOY MATIAS MD,FCAP VITAMIN D, 25 OH, D2 <4 ng/mL [facility] VITAMIN D, 25 OH, TOTAL 20(L) 30 - 100 ng/mL [facility] Blood specimen (specimen) 07/20/2010 4:15 PM TEACHER ADULT EDUCATION 07/20/2010 4:38 PM TEACHER ADULT EDUCATION Narrative [facility] - 07/22/2010 2:41 PM TEACHER ADULT EDUCATION FAX THE RESULT TO [phone] Jaycob Waller MD CHEMISTRY ORDERABL ES Performing Organization Address [facility] de Phone Number [facility] CLIA# [id number] [address] [place] [address] * VITAMIN B12 LEVEL (07/20/2010 4:15 PM TEACHER ADULT EDUCATION) VITAMIN B12 448 211 - 946 pg/mL [facility] Comment: It has been reported that between 5 to 10% of patients with values between 200 and 400 pg/mL may experience neuropsychiatric and hematologic abnormalities due to occult B12 deficiency. ??Less than 1% of patients with values above 400 pg/mL will have symptoms. Blood specimen (specimen) 07/20/2010 4:15 PM TEACHER ADULT EDUCATION 07/20/2010 4:38 PM TEACHER ADULT EDUCATION Narrative [facility] - 07/20/2010 5:43 PM TEACHER ADULT EDUCATION FAX THE RESULT TO [phone] Jaycob Waller MD CHEMISTRY ORDERABL ES Performing Organization Address [facility] Co de Phone Number [facility] CLIA# [id number] [address] [place] [address] * (ABNORMAL) IGA (07/20/2010 4:15 PM TEACHER ADULT EDUCATION) IGA 515.4(H) 80.0 - 375.0 mg/dL [facility] Blood specimen (specimen) 07/20/2010 4:15 PM TEACHER ADULT EDUCATION 07/20/2010 4:38 PM TEACHER ADULT EDUCATION Narrative [facility] - 07/20/2010 5:25 PM TEACHER ADULT EDUCATION FAX THE RESULT TO [phone] Jaycob Waller MD CHEMISTRY ORDERABL ES Performing Organization Address [facility] Co de Phone Number [facility] CLIA# [id number] [address] [place] [address] * FERRITIN (07/20/2010 4:15 PM TEACHER ADULT EDUCATION) [facility] FERRITIN 85 30 - 400 ng/mL [facility] Blood specimen (specimen) 07/20/2010 4:15 PM TEACHER ADULT EDUCATION 07/20/2010 4:38 PM TEACHER ADULT EDUCATION Narrative [facility] - 07/20/2010 5:33 PM TEACHER ADULT EDUCATION FAX THE RESULT TO [phone] Jaycob Waller MD CHEMISTRY ORDERABL ES Performing Organization Address [facility] Co de Phone Number [facility] CLIA# [id number] [address] [place] [address] * COMPREHENSIVE METABOLIC PANEL (07/20/2010 4:15 PM TEACHER ADULT EDUCATION) [facility] SODIUM 139 135 - 145 mmol/L [facility] POTASSIUM 3.7 3.5 - 4.9 mmol/L [facility] CHLORIDE 101 96 - 108 mmol/L [facility] CO2 25 22 - 30 mmol/L [facility] CALCIUM 9.2 8.6 - 10.2 mg/dL [facility] BUN 11 6 - 20 mg/dL [facility] CREATININE 0.71 0.67 - 1.17 mg/dL [facility] GLUCOSE 91 65 - 99 mg/dL [facility] TOTAL PROTEIN 7.3 6.3 - 8.6 g/dL [facility] ALBUMIN 4.3 3.4 - 4.8 g/dL [facility] BILIRUBIN TOTAL 0.3 0.2 - 1.0 mg/dL [facility] ALKALINE PHOSPHATASE 65 40 - 129 U/L [facility] AST 22 12 - 38 U/L [facility] ALT 30 0 - 41 U/L [facility] GFR, >60 >=60 mL/min/1.7 sq meter [facility] GFR >60 >=60 mL/min/1.7 sq meter [facility] Comment: Modification of Diet in Renal Disease (MDRD) study formula. Estimated GFR rate interpretative information for both Americans and non- Americans is available on the [facility] Intranet at: [email or web address] Select: Lab Policies and Procedures Select: Reference Ranges - GFR Blood specimen (specimen) 07/20/2010 4:15 PM TEACHER ADULT EDUCATION 07/20/2010 4:38 PM TEACHER ADULT EDUCATION Narrative [facility] - 07/20/2010 5:19 PM TEACHER ADULT EDUCATION FAX THE RESULT TO [phone] Jaycob Waller MD CHEMISTRY ORDERABL ES [facility] CLIA# [id number] [address] [facility] [place] [address] * CBC WITH DIFFERENTIAL (07/20/2010 4:15 PM TEACHER ADULT EDUCATION) WBC 8.1 4.0 - 9.8 K/uL [facility] RBC 4.70 4.50 - 5.40 M/uL [facility] HEMOGLOBIN 14.7 13.6 - 16.5 g/dL [facility] HEMATOCRIT 44.1 40.0 - 48.0 % [facility] MCV 93.8 82.0 - 99.0 fL [facility] MCH 31.3 27.2 - 32.6 pg [facility] MCHC 33.3 31.5 - 35.5 % [facility] PLATELETS 215 140 - 350 K/uL [facility] MPV 11.2 9.3 - 12.4 fL [facility] RDW 12.5 11.5 - 14.5 % [facility] RDW-STDEV 42.1 37.1 - 48.7 fL [facility] NEUTROPHILS 63 45 - 70 % [facility] LYMPHOCYTES 27 16 - 45 % [facility] MONOCYTES 8 3 - 13 % [facility] EOSINOPHILS 1 0 - 7 % [facility] BASOPHILS 0 0 - 2 % [facility] NEUTROPHIL ABSOLUTE 5.12 1.90 - 7.00 K/uL [facility] LYMPHOCYTE ABSOLUTE 2.21 0.70 - 4.50 K/uL [facility] MONOCYTE ABSOLUTE 0.64 0.10 - 1.30 K/uL [facility] EOSINOPHIL ABSOLUTE 0.10 0.00 - 0.70 K/uL [facility] BASOPHILS ABSOLUTE 0.03 0.00 - 0.20 K/uL [facility] Blood specimen (specimen) 07/20/2010 4:15 PM TEACHER ADULT EDUCATION 07/20/2010 4:39 PM TEACHER ADULT EDUCATION Jaycob Waller MD HEMATOLOGY ORDERAB LES [facility] CLIA# [id number] [address] [address] documented in this encounter Visit Diagnoses Diagnosis Regional enteritis of unspecified site documented in this encounter Care Teams Clinical Nursing Manager Relationship Specialty [place] [address] [place] [address] PCP - General 02/10/05 10/30/12 documented as of this encounter
--- OUTSIDE RECORDS SUMMARY | 2024-07-09 09:32 | XMS_ITS | Encounter Summary ---
Author Organization [facility] Address 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 documented in this encounter Plan of Treatment Not on file documented as of this encounter Visit Diagnoses Diagnosis Crohn's disease- Primary Regional enteritis of unspecified site documented in this encounter Care Teams Tractor Sweeper Driver Relationship Specialty [place] [address] [place] [address] PCP - General 02/10/05 10/30/12 documented as of this encounter
--- OUTSIDE RECORDS SUMMARY | 2024-07-09 09:32 | XMS_ITS | Encounter Summary ---
Author Organization [facility] Address [address] [place] [address] Care Team Providers Care Handbag Stitcher Name Role Phone Karol Tran MD Primary Care Provider [phone] Reason for Visit * Reason Comments Follow Up crohn's disease Encounter Details Date Type Department Care Team (Late st Contact Info) Description 11/19/2008 9:30 AM CDT Office Visit [facility] [address] [address] [place] [address] [place] [address] Crohn's Disease (Primary Dx) Social [...] y.o. male presents for follow-up evaluation. The dental receptionist is Karol Tran MD Chief Complaint Patient [...] site documented in this encounter Care Teams Handbag Stitcher Relationship Specialty [place] [address] [place] [phone] PCP - General 02/10/05 10/30/12 documented as of this encounter
--- OUTSIDE RECORDS SUMMARY | 2024-07-09 09:32 | XMS_ITS | Encounter Summary ---
Author Organization [facility] Address [address] [place] [address] Care Team Providers Care Polysom Tech Name Role Phone Karol Tran MD Primary Care Provider [phone] Encounter Details Date Type Department Care Team (Late st Contact Info) Description 07/20/2010 Orders Only [facility] Admitting [address] [place] [address] Jaycob Waller MD [address] [facility] [address] [place] [address] Regional enteritis of unspecified site (Primary Dx) [...] * TRANSGLUTAMINASE AB IGG/IGA (07/20/2010 4:15 PM METALLURGIST HELPER) COMMENT See additional orderables. [facility] Blood specimen (specimen) 07/20/2010 4:15 PM METALLURGIST HELPER 07/20/2010 4:38 PM METALLURGIST HELPER Narrative [facility] - 07/22/2010 9:29 PM METALLURGIST HELPER FAX THE RESULT TO [phone] Jaycob Waller MD CHEMISTRY ORDERABL ES [facility] CLIA# [id number] [address] [facility] [place], [place] [address] * (ABNORMAL) IGA (07/20/2010 4:15 PM METALLURGIST HELPER) IGA 515.4(H) 80.0 - 375.0 mg/dL [facility] Blood specimen (specimen) 07/20/2010 4:15 PM METALLURGIST HELPER 07/20/2010 4:38 PM METALLURGIST HELPER Narrative [facility] - 07/20/2010 5:25 PM METALLURGIST HELPER FAX THE RESULT TO [phone] Jaycob Waller MD CHEMISTRY ORDERABL ES Performing Organization Address City/[facility]/ZIP Co de Phone Number [facility] CLIA# [id number] [address] [facility] [place] [address] * FERRITIN (07/20/2010 4:15 PM METALLURGIST HELPER) Pathologist [facility] FERRITIN 85 30 - 400 ng/mL [facility] Blood specimen (specimen) 07/20/2010 4:15 PM METALLURGIST HELPER 07/20/2010 4:38 PM METALLURGIST HELPER Narrative [facility] - 07/20/2010 5:33 PM METALLURGIST HELPER FAX THE RESULT TO [phone] Jaycob Waller MD CHEMISTRY ORDERABL ES [facility] CLIA# [id number] [address] [facility] [place], [place] [address] * IRON AND TIBC (07/20/2010 4:15 PM METALLURGIST HELPER) IRON 82 45 - 160 ug/dL [facility] IRON % SATURATION 29 20 - 50 % [facility] TIBC 287 250 - 450 ug/dL [facility] TRANSFERRIN 226 200 - 360 mg/dL [facility] Blood specimen (specimen) 07/20/2010 4:15 PM METALLURGIST HELPER 07/20/2010 4:38 PM METALLURGIST HELPER Narrative [facility] - 07/20/2010 5:19 PM METALLURGIST HELPER FAX THE RESULT TO [phone] Jaycob Waller MD CHEMISTRY ORDERABL ES Performing Organization Address [facility] Co de Phone Number [facility] CLIA# [id number] [address] [place] [address] * (ABNORMAL) VITAMIN D 25 HYDROXY (07/20/2010 4:15 PM METALLURGIST HELPER) VITAMIN D, 25 OH, D3 20 ng/mL [facility] Comment: 25-OHD3 indicates both endogenous production and supplementation. 25-OHD2 is an indicator of exogenous sources such as diet or supplementation. Therapy is based on measurement of Total 25-OHD, with levels <20 ng/mL indicative of Vitamin D deficiency while levels between 20 ng/mL and 30 ng/mL suggest insufficiency. Optimal levels are >/=30 ng/mL. ? Lab test performed by: [facility] [address] [address] JOY MATIAS MD,FCAP VITAMIN D, 25 OH, D2 <4 ng/mL [facility] VITAMIN D, 25 OH, TOTAL 20(L) 30 - 100 ng/mL [facility] Blood specimen (specimen) 07/20/2010 4:15 PM METALLURGIST HELPER 07/20/2010 4:38 PM METALLURGIST HELPER Narrative [facility] - 07/22/2010 2:41 PM METALLURGIST HELPER FAX THE RESULT TO [phone] Jaycob Waller MD CHEMISTRY ORDERABL ES Performing Organization Address [facility]/ZIP Co de Phone Number [facility] CLIA# [id number] [address] [place] [address] * VITAMIN B12 LEVEL (07/20/2010 4:15 PM METALLURGIST HELPER) VITAMIN B12 448 211 - 946 pg/mL [facility] Comment: It has been reported that between 5 to 10% of patients with values between 200 and 400 pg/mL may experience neuropsychiatric and hematologic abnormalities due to occult B12 deficiency. ??Less than 1% of patients with values above 400 pg/mL will have symptoms. Blood specimen (specimen) 07/20/2010 4:15 PM METALLURGIST HELPER 07/20/2010 4:38 PM METALLURGIST HELPER Narrative [facility] - 07/20/2010 5:43 PM METALLURGIST HELPER FAX THE RESULT TO [phone] Jaycob Waller MD CHEMISTRY ORDERABL ES [facility] CLIA# [id number] [address] [facility] [place] [address] * CBC WITH DIFFERENTIAL (07/20/2010 4:15 PM METALLURGIST HELPER) [facility] WBC 8.1 4.0 - 9.8 K/uL [facility] RBC 4.70 4.50 - 5.40 M/uL [facility] HEMOGLOBIN 14.7 13.6 - 16.5 g/dL [facility] HEMATOCRIT 44.1 40.0 - 48.0 % [facility] MCV 93.8 82.0 - 99.0 fL [facility] MCH 31.3 27.2 - 32.6 pg [facility] MCHC 33.3 31.5 - 35.5 % [facility] PLATELETS 215 140 - 350 K/uL [facility] MPV 11.2 9.3 - 12.4 fL [facility] RDW 12.5 11.5 - 14.5 % [facility] RDW-STDEV 42.1 37.1 - 48.7 fL [facility] NEUTROPHILS 63 45 - 70 % [facility] LYMPHOCYTES 27 16 - 45 % [facility] MONOCYTES 8 3 - 13 % [facility] EOSINOPHILS 1 0 - 7 % [facility] BASOPHILS 0 0 - 2 % [facility] NEUTROPHIL ABSOLUTE 5.12 1.90 - 7.00 K/uL [facility] LYMPHOCYTE ABSOLUTE 2.21 0.70 - 4.50 K/uL [facility] MONOCYTE ABSOLUTE 0.64 0.10 - 1.30 K/uL [facility] EOSINOPHIL ABSOLUTE 0.10 0.00 - 0.70 K/uL [facility] BASOPHILS ABSOLUTE 0.03 0.00 - 0.20 K/uL [facility] Blood specimen (specimen) 07/20/2010 4:15 PM METALLURGIST HELPER 07/20/2010 4:39 PM METALLURGIST HELPER Jaycob Waller MD HEMATOLOGY ORDERAB LES [facility] CLIA# [id number] [address] [place] [address] * COMPREHENSIVE METABOLIC PANEL (07/20/2010 4:15 PM METALLURGIST HELPER) SODIUM 139 135 - 145 mmol/L [facility] POTASSIUM 3.7 3.5 - 4.9 mmol/L [facility] CHLORIDE 101 96 - 108 mmol/L [facility] CO2 25 22 - 30 mmol/L [facility] CALCIUM 9.2 8.6 - 10.2 mg/dL [facility] BUN 11 6 - 20 mg/dL [facility] CREATININE 0.71 0.67 - 1.17 mg/dL [facility] GLUCOSE 91 65 - 99 mg/dL [facility] TOTAL PROTEIN 7.3 6.3 - 8.6 g/dL [facility] ALBUMIN 4.3 3.4 - 4.8 g/dL [facility] BILIRUBIN TOTAL 0.3 0.2 - 1.0 mg/dL [facility] ALKALINE PHOSPHATASE 65 40 - 129 U/L [facility] AST 22 12 - 38 U/L [facility] ALT 30 0 - 41 U/L [facility] GFR, >60 >=60 mL/min/1.7 sq meter [facility] GFR >60 >=60 mL/min/1.7 sq meter [facility] Comment: Modification of Diet in Renal Disease (MDRD) study formula. Estimated GFR rate interpretative information for both Americans and non- Americans is available on the [facility] Intranet at: [email or web address] Select: Lab Policies and Procedures Select: Reference Ranges - GFR Blood specimen (specimen) 07/20/2010 4:15 PM METALLURGIST HELPER 07/20/2010 4:38 PM METALLURGIST HELPER Narrative [facility] - 07/20/2010 5:19 PM METALLURGIST HELPER FAX THE RESULT TO [phone] Jaycob Waller MD CHEMISTRY ORDERABL ES [facility] CLIA# [id number] [address] [place] [address] documented in this encounter Visit Diagnoses Diagnosis Regional enteritis of unspecified site Regional enteritis of unspecified site- Primary documented in this encounter Care Teams Polysom Tech Relationship Specialty [place] [address] [place] [address] PCP - General 02/10/05 10/30/12 documented as of this encounter
--- OUTSIDE RECORDS SUMMARY | 2024-07-09 09:32 | XMS_ITS | Encounter Summary ---
Author Organization [facility] Address [address] [place] [address] Care Team Providers Care Tuckpointer Name Role Phone Karol Tran MD Primary Care Provider [phone] Encounter Details Date Type Department Care Team (Late st Contact Info) Description 10/13/2010 10:53 AM CDT - 10/13/2010 11:59 PM T Hospital Encounter [facility] Laboratory Services [facility] [place] [facility] [address] [facility] [address] [place] [address] Jaycob Waller MD [address] [facility] [address] [place] [address] Discharge Disposition: Home or Self Care Social [...] VITAMIN D, 25 OH, D3 32 ng/mL [facility] Comment: 25-OHD3 indicates both endogenous production and supplementation. 25-OHD2 is an indicator of exogenous sources such as diet or supplementation. Therapy is based on measurement of Total 25-OHD, with levels <20 ng/mL indicative of Vitamin D deficiency while levels between 20 ng/mL and 30 ng/mL suggest insufficiency. Optimal levels are >/=30 ng/mL. ? Lab test performed by: [place] [address] [place] [address] JOY MATIAS MD,FCAP VITAMIN D, 25 OH, D2 <4 ng/mL [facility] VITAMIN D, 25 OH, TOTAL 32 30 - 100 ng/mL [facility] Blood specimen (specimen) 10/13/2010 11:00 AM CDT 10/13/2010 11:18 AM CDT Jaycob Waller MD CHEMISTRY ORDERABL ES [facility] CLIA# [id number] [address] [place] [address] * VITAMIN B12 LEVEL (10/13/2010 11:00 AM CDT) VITAMIN B12 483 211 - 946 pg/mL [facility] Comment: It has been reported that between 5 to 10% of patients with values between 200 and 400 pg/mL may experience neuropsychiatric and hematologic abnormalities due to occult B12 deficiency. ??Less than 1% of patients with values above 400 pg/mL will have symptoms. Blood specimen (specimen) 10/13/2010 11:00 AM CDT 10/13/2010 11:17 AM CDT Jaycob Waller MD CHEMISTRY ORDERABL ES [facility] CLIA# [id number] [address] [place], [place] [address] * COMPREHENSIVE METABOLIC PANEL (10/13/2010 11:00 AM CDT) SODIUM 138 135 - 145 mmol/L [facility] POTASSIUM 4.1 3.5 - 4.9 mmol/L [facility] CHLORIDE 100 96 - 108 mmol/L [facility] CO2 30 22 - 30 mmol/L [facility] CALCIUM 9.6 8.6 - 10.2 mg/dL [facility] BUN 9 6 - 20 mg/dL [facility] CREATININE 0.75 0.67 - 1.17 mg/dL [facility] GLUCOSE 90 65 - 99 mg/dL [facility] TOTAL PROTEIN 7.9 6.3 - 8.6 g/dL [facility] ALBUMIN 4.6 3.4 - 4.8 g/dL [facility] BILIRUBIN TOTAL 0.6 0.2 - 1.0 mg/dL [facility] ALKALINE PHOSPHATASE 94 40 - 129 U/L [facility] AST 29 12 - 38 U/L [facility] ALT 41 0 - 41 U/L [facility] GFR, >60 >=60 mL/min/1.7 sq meter [facility] GFR >60 >=60 mL/min/1.7 sq meter [facility] Comment: Modification of Diet in Renal Disease (MDRD) study formula. Estimated GFR rate interpretative information for both Americans and non- Americans is available on the [facility] Intranet at: [email or web address] Select: Lab Policies and Procedures Select: Reference Ranges - GFR Blood specimen (specimen) 10/13/2010 11:00 AM CDT 10/13/2010 11:17 AM CDT Jaycob Waller MD CHEMISTRY ORDERABL ES [facility] CLIA# [id number] [address] [place] [id number] * CBC WITH DIFFERENTIAL (10/13/2010 11:00 AM CDT) WBC 6.4 4.0 - 9.8 K/uL [facility] RBC 5.04 4.50 - 5.40 M/uL [facility] HEMOGLOBIN 15.6 13.6 - 16.5 g/dL [facility] HEMATOCRIT 47.0 40.0 - 48.0 % [facility] MCV 93.3 82.0 - 99.0 fL [facility] MCH 31.0 27.2 - 32.6 pg [facility] MCHC 33.2 31.5 - 35.5 % [facility] PLATELETS 226 140 - 350 K/uL [facility] MPV 10.3 9.3 - 12.4 fL [facility] RDW 12.7 11.5 - 14.5 % [facility] RDW-STDEV 42.7 37.1 - 48.7 fL [facility] NEUTROPHILS 62 45 - 70 % [facility] LYMPHOCYTES 29 16 - 45 % [facility] MONOCYTES 8 3 - 13 % [facility] EOSINOPHILS 1 0 - 7 % [facility] BASOPHILS 1 0 - 2 % [facility] NEUTROPHIL ABSOLUTE 3.98 1.90 - 7.00 K/uL [facility] LYMPHOCYTE ABSOLUTE 1.89 0.70 - 4.50 K/uL [facility] MONOCYTE ABSOLUTE 0.48 0.10 - 1.30 K/uL [facility] EOSINOPHIL ABSOLUTE 0.06 0.00 - 0.70 K/uL [facility] BASOPHILS ABSOLUTE 0.03 0.00 - 0.20 K/uL [facility] Blood specimen (specimen) 10/13/2010 11:00 AM CDT 10/13/2010 11:17 AM CDT Jaycob Waller MD HEMATOLOGY ORDERAB LES Performing Organization Address City/State/[facility] Co de Phone Number [facility] CLIA# [id number] [address] [place] [address] documented in this encounter Visit Diagnoses Diagnosis Regional enteritis of unspecified site documented in this encounter Care Teams Tuckpointer Relationship Specialty [place] [address] [place] [address] PCP - General 02/10/05 10/30/12 documented as of this encounter
--- OUTSIDE RECORDS SUMMARY | 2024-07-09 09:32 | XMS_ITS | Encounter Summary ---
Author Organization [facility] Address [address] [place] [address] Care Team Providers Care Header Setup Operator Name Role Phone Not Found, Stl Primary Care Provider Unavailabl e Encounter Details Date Type Department Care Team (Late st Contact Info) Description 05/01/2008 Outpatient Historical [facility] Raghavendra Rhodes MD [address] [address] Short Stature Social History Tobacco [...] CDT Narrative 05/01/2008 4:39 PM CDT ? [facility] ? [address] [facility] ?[address] [place] ??[id number] ?Admit Date: 05/01/2008 ? NIC TERAN A ?Sex: M ?Admit Prov: RAGHAVENDRA LÓPEZ ? Date: 1990 ?Primary Care Prov: NILO MELISSA ?CMRN: [id number] ?Room: [facility]A ?SSN: ? IMAGING SERVICES ?Ordering Prov: N/A ? Accession Number: [id number] ?Interpretation ? Examination: Bone age. ? Clinical [...] Procedure Note Fredrick Agustin MD - 05/01/2008 [facility] [address] [place] [address] Admit Date: 05/01/2008 NIC TERAN Sex: M Admit Prov: RAGHAVENDRA LÓPEZ Date: 1990 Primary Care Prov: NILO MELISSA Thanh CMRN: [id number] [facility] SSN: IMAGING SERVICES Ordering Prov: N/A Interpretation [...] stature documented in this encounter Care Teams Header Setup Operator Relationship Specialty Start Date End Date Not Found, Stl NO ADDRESS ON FILE PCP - General 10/31/12 documented as of this encounter
--- OUTSIDE RECORDS SUMMARY | 2024-07-09 09:33 | XMS_ITS | Encounter Summary ---
Author Organization [facility] Address [address] [place] [address] Care Team Providers Care Access Manager Name Role Phone Not Found, Stl [...] site documented in this encounter Care Teams Access Manager Relationship Specialty Start Date End Date Not Found, Stl NO ADDRESS ON FILE PCP - General 10/31/12 documented as of this encounter
--- OUTSIDE RECORDS SUMMARY | 2024-07-09 09:34 | XMS_ITS | Encounter Summary ---
Author Organization [facility] Address [address] [place] [address] Care Team Providers Care Bus Steward Name Role Phone Not Found, Stl Primary Care Provider Unavailabl e Encounter Details Date Type Department Care Team (Latest Contact Info) Description 03/28/2008 Outpatient Historical [facility] Jamie Crowder MD [address] [place] [address] Regional Enteritis of Unspecified Site Social History [...] site documented in this encounter Care Teams Bus Steward Relationship Specialty Start Date End Date Not Found, Stl NO ADDRESS ON FILE PCP - General 10/31/12 documented as of this encounter
--- OUTSIDE RECORDS SUMMARY | 2024-07-09 09:34 | XMS_ITS | Encounter Summary ---
Author Organization [facility] Address [address] [place] [address] Care Team Providers Care Sediment Remediation Consultant Name Role Phone Karol Tran MD Primary Care Provider [phone] Reason for Visit * Reason Comments IV Med Encounter Details Date Type Department Care Team (Late st Contact Info) Description 03/28/2008 8:00 AM CDT Office Visit [facility] [address] [facility] [address] [place] [address] Jamie Crowder MD [address] [facility] [address] [place] [address] Crohn's Disease (Primary Dx) Social [...] Bess - 03/28/2008 8:38 AM CDT Remicade [id number] exp 11/09 0740 Here with father for [...] site documented in this encounter Care Teams Sediment Remediation Consultant Relationship Specialty [place] [address] [place] [phone] PCP - General 02/10/05 10/30/12 documented as of this encounter
--- OUTSIDE RECORDS SUMMARY | 2024-07-09 09:35 | XMS_ITS | Encounter Summary ---
Author Organization [facility] Address [address] [place] [address] Care Team Providers Care Cdl Company Driver Name Role Phone Karol Tran MD Primary Care Provider [phone] Reason for Visit * Reason Comments IV Med Remicade Encounter Details Date Type Department Care Team (Late st Contact Info) Description 01/04/2008 8:30 AM CDT Office Visit [facility] [address] [facility] [address] [place] [address] Franck Collazo MD NO ADDRESS ON FILE [...] - 01/04/2008 8:55 AM CDT Meds: Remicade [id number] exp 09/09 0830 Here with father for [...] site documented in this encounter Care Teams Cdl Company Driver Relationship Specialty [place] [address] [place] [address] PCP - General 02/10/05 10/30/12 documented as of this encounter
--- OUTSIDE RECORDS SUMMARY | 2024-07-09 09:36 | XMS_ITS | Encounter Summary ---
Author Organization [facility] Address [address] [place] [address] Care Team Providers Care Timber Selector Name Role Phone Not Found, Stl Primary Care Provider Unavailabl e Encounter Details Date Type Department Care Team (Latest Contact Info) Description 09/04/2006 [facility] [address] [place] [address] Pain in Joint, Pelvic Region and Thigh [...] Primary documented in this encounter Care Teams Timber Selector Relationship Specialty Start Date End Date Not Found, Stl NO ADDRESS ON FILE PCP - General 10/31/12 documented as of this encounter
--- OUTSIDE RECORDS SUMMARY | 2024-07-09 09:36 | XMS_ITS | Encounter Summary ---
Author Organization 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
--- OUTSIDE RECORDS SUMMARY | 2024-07-09 09:36 | XMS_ITS | Encounter Summary ---
Author Organization [facility] Address [address] [place] [address] Care Team Providers Care Sander Machine Name Role Phone Not Found, Stl Primary Care Provider Unavailabl e Encounter Details Date Type Department Care Team (Late st Contact Info) Description 07/09/2007 [facility] [address] [place] [address] Short Stature Social History Tobacco Use Types [...] stature documented in this encounter Care Teams Sander Machine Relationship Specialty Start Date End Date Not Found, Stl NO ADDRESS ON FILE PCP - General 10/31/12 documented as of this encounter
--- OUTSIDE RECORDS SUMMARY | 2024-07-09 09:37 | XMS_ITS | Encounter Summary ---
Author Organization [employer] Address [address] [place] [address] Care Team Providers Care Community Specialist Name Role Phone Not Found, Stl Primary Care Provider Unavailabl e Encounter Details Date Type Department Care Team (Latest Contact Info) Description 06/16/2005 Outpatient Historical HIS [facility] VU Tran, [place] [address] [place] [address] REG ENTERIT SM/LG INTEST (Primary [...] CBC WITH DIFFERENTIAL Routine 06/16/2005 10:11 AM CLEANING PROFESSIONAL CBC WITH DIFFERENTIAL Routine 06/16/2005 10:11 AM CLEANING PROFESSIONAL documented in this encounter Results * (ABNORMAL) CBC WITH DIFFERENTIAL (06/16/2005 10:11 AM CLEANING PROFESSIONAL) NEUTROPHILS 72 36 - 74 % INTERFAC [...] K/uL INTERFACE SYSTEM 06/16/2005 10:1 1 AM CLEANING PROFESSIONAL Karol Tran MD HEMATOLOGY ORDERABLE S INTERFACE SYSTEM Refer to clinic/hospital department * (ABNORMAL) CBC WITH DIFFERENTIAL (06/16/2005 10:11 AM CLEANING PROFESSIONAL) WBC 9.3 4.0 - 9.8 K/uL INTERFACE [...] fL INTERFACE SYSTEM 06/16/2005 10:1 1 AM CLEANING PROFESSIONAL Karol Tran MD HEMATOLOGY ORDERABLE S INTERFACE SYSTEM Refer to clinic/hospital department documented in this encounter Visit Diagnoses Diagnosis Regional enteritis of small intestine with large intestine- Primary documented in this encounter Care Teams Community Specialist Relationship Specialty Start Date End Date Not Found, Stl NO ADDRESS ON FILE PCP - General 10/31/12 documented as of this encounter
--- OUTSIDE RECORDS SUMMARY | 2024-07-09 09:37 | XMS_ITS | Encounter Summary ---
Author Organization [facility] Address [address] [place] [address] Care Team Providers Care Loading Machine Tool Setter Name Role Phone Not Found, Stl Primary [...] on filedocumented in this encounter Care Teams Loading Machine Tool Setter Relationship Specialty Start Date End Date Not Found, Stl NO ADDRESS ON FILE PCP - General 10/31/12 documented as of this encounter
--- OUTSIDE RECORDS SUMMARY | 2024-07-09 09:37 | XMS_ITS | Encounter Summary ---
Author Organization [facility] Address [address] [place] [address] Care Team Providers Care Administrative Director Name Role Phone Not Found, Stl Primary Care Provider Unavailabl e Encounter Details Date Type Department Care Team (Latest Contact Info) Description 05/17/2005 Outpatient Historical HIS [facility] VU Tran, [place] [address] [place] [phone] REG ENTERIT SM/LG INTEST (Primary Dx) Social [...] CBC WITH DIFFERENTIAL Routine 05/17/2005 9:48 AM SOLE TRIMMER CBC WITH DIFFERENTIAL Routine 05/17/2005 9:48 AM SOLE TRIMMER SEDIMENTATION RATE Routine 05/17/2005 9: 48 AM SOLE TRIMMER C-REACTIVE PROTEIN Routine 05/17/2005 9: 48 AM SOLE TRIMMER HEPATIC FUNCTION PANEL Routine 5 9:48 AM SOLE TRIMMER documented in this encounter Results * (ABNORMAL) CBC WITH DIFFERENTIAL (05/17/2005 9:48 AM SOLE TRIMMER) NEUTROPHILS 71 36 - 74 % INTERFAC [...] 0.03 K/uL INTERFACE SYSTEM 05/17/2005 9:48 AM SOLE TRIMMER Karol Tran MD HEMATOLOGY ORDERABLE S Performing Organization Address [facility] Phone Number INTERFACE SYSTEM Refer to clinic/hospital department * (ABNORMAL) CBC WITH DIFFERENTIAL (05/17/2005 9:48 AM SOLE TRIMMER) WBC 9.8 4.0 - 9.8 K/uL INTERFACE [...] 12.4 fL INTERFACE SYSTEM 05/17/2005 9:48 AM SOLE TRIMMER Karol Tran MD HEMATOLOGY ORDERABLE S Performing Organization Address [facility] Phone Number INTERFACE SYSTEM Refer to clinic/hospital department * (ABNORMAL) SEDIMENTATION RATE (05/17/2005 9:48 AM SOLE TRIMMER) ESR (SEDIMENTATION RATE) 41(H) 0 - 20 mm/hr INTERFACE SYSTEM 05/17/2005 9:48 AM SOLE TRIMMER Karol Tran MD HEMATOLOGY ORDERABLE S Performing Organization Address City/[facility] Phone Number INTERFACE SYSTEM Refer to clinic/hospital department * (ABNORMAL) C-REACTIVE PROTEIN (05/17/2005 9:48 AM SOLE TRIMMER) CRP 5.5(H) 0.0 - 0.8 mg/dL INTERFACE SYSTEM 05/17/2005 9:48 AM SOLE TRIMMER Karol Tran MD CHEMISTRY ORDERABLES Performing Organization Address [facility] de Phone Number INTERFACE SYSTEM Refer to clinic/hospital department * (ABNORMAL) HEPATIC FUNCTION PANEL (05/17/2005 9:48 AM SOLE TRIMMER) AST 17 12 - 38 U/L INTERFACE SYSTEM ALKALINE PHOSPHATASE 86 40 - 390 U/L INTERFACE SYSTEM BILIRUBIN TOTAL 0.1(L) 0.2 - 1.0 mg/dL INTERFACE SYSTEM ALBUMIN 3.6 3.2 - 4.5 g/dL INTERFACE SYSTEM TOTAL PROTEIN 7.7 6.3 - 8.6 g/dL INTERFACE SYSTEM ALT 12 0 - 41 U/L INTERFACE SYSTEM BILIRUBIN DIRECT <0.1 0.0 - 0.3 mg/dL INTERFACE SYSTEM 05/17/2005 9:48 AM SOLE TRIMMER Karol Tran MD CHEMISTRY ORDERABLES Performing Organization Address [facility] Phone Number INTERFACE SYSTEM Refer to clinic/hospital department documented in this encounter Visit Diagnoses Diagnosis Regional enteritis of small intestine with large intestine- Primary documented in this encounter Care Teams Administrative Director Relationship Specialty Start Date End Date Not Found, Stl NO ADDRESS ON FILE PCP - General 10/31/12 documented as of this encounter
--- OUTSIDE RECORDS SUMMARY | 2024-07-09 09:37 | XMS_ITS | Encounter Summary ---
Author Organization [facility] Address [address] [place] [address] Care Team Providers Care Desk Assistant Name Role Phone Not Found, Stl Primary Care Provider Unavailabl e Encounter Details Date Type Department Care Team (Late st Contact Info) Description 02/20/2005 Outpatient Historical [facility] [address] [place] [phone] Abhijeet Ochoa MD Social History Tobacco Use [...] on filedocumented in this encounter Care Teams Desk Assistant Relationship Specialty Start Date End Date Not Found, Stl NO ADDRESS ON FILE PCP - General 10/31/12 documented as of this encounter
--- OUTSIDE RECORDS SUMMARY | 2024-07-09 09:37 | XMS_ITS | Encounter Summary ---
Author Organization [facility] Address [address] [place] [address] Care Team Providers Care Meter Reading Clerk Name Role Phone Not Found, Stl Primary Care Provider Unavailabl e Encounter Details Date Type Department Care Team (Latest Contact Info) Description 03/03/2005 Outpatient Historical HIS [facility] VU Tran, [place] [address] [place] [phone] REG ENTERITIS, LG INTEST (Primary Dx) Social [...] MD HEMATOLOGY ORDERABLE S Performing Organization Address [facility] Phone Number INTERFACE SYSTEM Refer [...] MD HEMATOLOGY ORDERABLE S Performing Organization Address [facility] Phone Number INTERFACE SYSTEM Refer [...] MD HEMATOLOGY ORDERABLE S Performing Organization Address City/[facility] Phone Number INTERFACE SYSTEM Refer to clinic/hospital department * (ABNORMAL) SEDIMENTATION RATE (03/03/2005 1:37 PM CDT) ESR (SEDIMENTATION RATE) 22(H) 0 - 20 mm/hr INTERFACE SYSTEM 03/03/2005 1:37 PM CDT Karol Tran MD HEMATOLOGY ORDERABLE S Performing Organization Address [facility] Phone Number INTERFACE SYSTEM Refer to clinic/hospital department * (ABNORMAL) C-REACTIVE PROTEIN (03/03/2005 1:37 PM CDT) CRP 1.4(H) 0.0 - 0.8 mg/dL INTERFACE SYSTEM 03/03/2005 1:37 PM CDT Karol Tran MD CHEMISTRY ORDERABLES Performing Organization Address [facility] Phone Number INTERFACE SYSTEM Refer to clinic/hospital department * ALT (03/03/2005 1:37 PM CDT) ALT 31 0 - 41 U/L INTERFACE SYSTEM 03/03/2005 1:37 PM CDT Karol Tran MD CHEMISTRY ORDERABLES Performing Organization Address City/[facility] Co de Phone Number INTERFACE SYSTEM Refer to clinic/hospital department documented in this encounter Visit Diagnoses Diagnosis Regional enteritis of large intestine- Primary documented in this encounter Care Teams Meter Reading Clerk Relationship Specialty Start Date End Date Not Found, Stl NO ADDRESS ON FILE PCP - General 10/31/12 documented as of this encounter
--- OUTSIDE RECORDS SUMMARY | 2024-07-09 09:38 | XMS_ITS | Encounter Summary ---
Author Organization [facility] Address [address] [place] [address] Care Team Providers Care Building Maintenance Technician Name Role Phone Not Found, Stl Primary Care Provider Unavailabl e Encounter Details Date Type Department Care Team (Late st Contact Info) Description 02/10/2005 Outpatient Historical [place] [address] [place] [phone] INTESTINAL DISORDER NOS (Primary Dx) Social History [...] in this encounter Care Teams Building Maintenance Technician Relationship Specialty Start Date End Date Not Found, Stl NO ADDRESS ON FILE PCP - General 10/31/12 documented as of this encounter
--- OUTSIDE RECORDS SUMMARY | 2024-07-09 09:38 | XMS_ITS | Clinical Summary ---
Author Organization [facility] Address [address] [place] [address] Care Team Providers Care Molding Press Operator Name Role Phone Lanre Parekh Primary Care Provide r Eliana Quevedo MD Unavailable [phone] Allergies Active Allergy Reactions Criticality Noted Date [...] can get the Vitamin D today and pickling operator the container for the 24hr urine. [...] least 2 continuous years, flagyl, Asacol, Azathioprine (4037-2834), Remicade (8285-6497, switched for insurance purposes), Humira (8043-4760, 6-month insurance interruption, re-initiation 10/2016, with dose [...] needed. Assessment & Plan (08/19/2020 10:41 AM BALANCER): Remains in clinical remission but also felt [...] (12/20/2017): Added automatically from request for surgery [id number] Encounters Date Type Department Care Team Description 07/07/2024 7:51 AM BALANCER Anesthesia Event [facility] Operating Room [address] [place] [address] Paul Macedo MD Rosen, Shayna, B.AMichelle 07/07/2024 7:30 AM BALANCER - 07/07/2024 10:40 AM BALANCER Surgery [facility] Operating Room [address] [place] [address] Venkata Lynch MD REPAIR INCISIONAL HERNIA 07/07/2024 5:36 AM BALANCER - 07/08/2024 12:12 PM BALANCER Hospital Encounter [facility] [address] [facility] [place] [address] Venkata Lynch MD Incarcerated incisional hernia (Primary Dx) Discharge Disposition: Discharge to home or self care 07/04/2024 Telephone [facility] - [facility] Minimally Invasive Surgery [address] [facility] [address] [facility] 12th Floor, [place] [address] Venkata Lynch MD Medical Question/Miscellaneo us; Surgery Confirmation 06/23/2024 Telephone [facility] Gastroenterology [address] Advanced Medicine [address]th [place] [address] [place] [address] iQ Maguire RN Med Management- Rejiortamela 06/20/2024 Telephone [facility] Gastroenterology [address] [facility] Advanced Medicine 12th [place] [address] [place] [address] Karissa Guallpa, RAW SHELLFISH PREPARER Prior Auth 06/20/2024 Telephone [facility]) - [facility] Minimally Invasive Surgery [address] [facility] [address], [place] [phone] Venkata Lynch MD Medical Question/Jadon kamara; Scheduling Appointments 06/20/2024 Telephone [facility]) - [facility] Minimally Invasive Surgery [address] [facility] [address], [place] [phone] Elsa, Gaby Otoole RMLadan 04/17/2024 Telephone [facility]) - [facility] Minimally Invasive Surgery [address] [facility] [address], [place] [phone] Reyna Thomason, JOSH 04/16/2024 [facility]) - [facility] Minimally Invasive Surgery [address] [facility] [address], [place] [phone] Reyna Thomason, JOSH from Last 3 Months [...] often do you attend chur ch or restorationism services? 1 to 4 times per year 11/03/2022 Do you belong to any clubs o r organizations such as islam groups, unions, fraternal or athletic groups, or [...] on file Legal Sex Male 11:11 PM BALANCER Gender Identity Not on file Sexual Orientation Not on file Obstetrics History Last Filed Vital Signs Vital Sign Reading Time Taken Comments Blood Pressure 123/84 07/08/2024 8:38 AM BALANCER Pulse 69 07/08/2024 8:38 AM BALANCER Temperature 36.7 ??C (98.1 ??F) 07/08/2024 8:38 AM CS T Respiratory Rate 18 07/08/2024 8:38 AM BALANCER Oxygen Saturation 100% 07/08/2024 8:38 AM BALANCER Inhaled Oxygen Concentration - - Weight 88.5 kg (195 lb) 07/07/2024 11:45 AM BALANCER Height 172.7 cm (5' 8 ) 07/07/2024 11:45 AM BALANCER Body Mass Index 29.65 07/07/2024 11:45 AM BALANCER Plan of Treatment Health Maintenance Due Date [...] this topic Medical Devices Implanted Type Area Heating Worker Device Identifier Shelf Expiration Date Model / Serial / Lot Mesh S[employer] Mesh Surgical Tissue Synthetic Duramesh 3.9mm Polypropylene Msi-300 - [id number] Implanted:Qty: 1 on 07/07/2024 by Venkata Lynch MD at [facility] Mesh N/A: Abdomen [employer] [id number] 03/06/2028 MSI-300 / / [id number] Procedures Procedure Name Priority Date/Time Associated Diagnosis Comments EGFR Routine 07/07/2024 10:17 PM BALANCER MAGNESIUM Routine 07/07/2024 10:17 PM BALANCER BASIC METABOLIC PANEL Routine 07/07/2024 10:17 PM BALANCER CBC WITHOUT DIFFERENTIAL Routine 07/07/2024 10:17 PM BALANCER NC AN PROCEDURE PLACEHOLDER Routine 07/07/2024 8:11 AM BALANCER NC AN ELECTIVE ENDOTRACHEAL AIRWAY Routine 07/07/2024 8:11 AM BALANCER REVISION SCAR - ABDOMINAL 07/07/2024 7:56 AM BALANCER Incisional hernia, incarcerated Special Needs Mesh OMENTECTOMY 07/07/2024 7:56 AM BALANCER Incisional hernia, incarcerated Special Needs Mesh REPAIR INCISIONAL HERNIA 07/07/2024 7:56 AM BALANCER Incisional hernia, incarcerated Special Needs Mesh TB TEST, QUANTIFERON GOLD Routine 06/26/2024 7:51 AM BALANCER Crohn's disease of both small and large intestine with intestinal obstruction (HCC) High risk medications (not anticoagulants) long-term use Health care maintenance CRP (ACUTE PHASE) Routine 06/26/2024 7:5 1 AM BALANCER Crohn's disease of both small and large intestine with intestinal obstruction (HCC) High risk medications (not anticoagulants) long-term use Health care maintenance COMPREHENSIVE METABOLIC PANEL Routine 06/26/2024 7:51 AM BALANCER Crohn's disease of both small and large intestine with intestinal obstruction (HCC) High risk medications (not anticoagulants) long-term use Health care maintenance CBC WITH AUTO DIFFERENTIAL Routine 06/26/2024 7:51 AM BALANCER Crohn's disease of both small and large intestine with intestinal obstruction (HCC) High risk medications (not anticoagulants) long-term use Health care maintenance from Last 3 Months Results * eGFR (07/07/2024 10:17 PM BALANCER) eGFR >90 >=60 mL/min/1. 73 m2 Comment: [...] reviewed 2021. Blood 07/07/2024 10:1 7 PM BALANCER 07/08/2024 12:30 AM BALANCER Valdo Razo MD LAB BLOOD ORDERABLES Fin al Result Performing Organization Address [facility] Co de Phone Number [facility] [place] [address] * (ABNORMAL) CBC without differential (07/07/2024 10:17 PM BALANCER) WBC 11.0(H) 3.8 - 9.9 K/cumm Hgb 12.4(L) 13.0 - 17.5 g/dL [facility] Hct 36.0(L) 38.9 - 50.3 % [facility] Plt 251 150 - 400 K/cumm [facility] MPV 10.8 9.1 - 12.3 fL [facility] RBC 3.60(L) 4.30 - 5.80 M/cumm [facility] MCV 100.0(H) 81.3 - 96.4 fL [facility] MCH 34.4(H) 27.1 - 33.3 pg [facility] MCHC 34.4 32.3 - 35.7 g/dL [facility] RDW CV 13.1 11.1 - 14.9 % [facility] RDW SD 48.0 35.7 - 48.1 fL [facility] NRBC abs 0.00 0.00 - 0.01 K/cumm [facility] Blood 07/07/2024 10:1 7 PM BALANCER 07/08/2024 12:30 AM BALANCER Valdo Razo MD LAB BLOOD ORDERABLES Fin al Result Performing Organization Address City/[facility]/ZIP Co de Phone Number [facility] [place] [address] * Magnesium (07/07/2024 10:17 PM BALANCER) Magnesium 2.0 1.4 - 2.5 mg/dL Blood 07/07/2024 10:1 7 PM BALANCER 07/08/2024 12:30 AM BALANCER Valdo Razo MD LAB BLOOD ORDERABLES Fin al Result Performing Organization Address City/[facility] Co de Phone Number [facility] Department [place] [address] * Basic metabolic panel (07/07/2024 10:17 PM BALANCER) Pathologist [facility] Sodium 135 135 - 145 mmol/L Potassium, pl 3.9 3.3 - 4.9 mmol/L [facility] Chloride 101 97 - 110 mmol/L [facility] CO2 23 22 - 32 mmol/L [facility] Anion gap 11 2 - 15 mmol/L [facility] BUN 9 6 - 25 mg/dL [facility] Creatinine 0.81 0.80 - 1.30 mg/dL [facility] Glucose 108 70 - 199 mg/dL [facility] Comment: Interpretive Data Fasting glucose >/= 126 [...] 2022. Calcium 8.5 8.5 - 10.3 mg/dL [facility] Blood 07/07/2024 10:1 7 PM BALANCER 07/08/2024 12:30 AM BALANCER Valdo Razo MD LAB BLOOD ORDERABLES Fin al Result Performing Organization Address [facility] de Phone Number [facility] Department [place] [address] * NC AN ELECTIVE ENDOTRACHEAL AIRWAY, NC AN PROCEDURE PLACEHOLDER (07/07/2024 8:11 AM BALANCER) Narrative Franck Ugalde CRNA - 07/07/2024 8:11 AM BALANCER Franck Ugalde CRNA ? 07/07/2024 ??8:13 AM Airway Patient location: OR Urgency: elective Indications for airway management: anesthesia Difficult airway: no Staff: Supervising provider: Paul Macedo MD Placed by: MAIL SORTING SUPERVISOR: Franck Ugalde CRNA Emergent airway documentation: Risks [...] TB test, quantiferon gold (06/26/2024 7:51 AM BALANCER) [facility] QuantiFERON(R)-T B Gold Plus, 1 Tube [...] T-lymphocytes. For additional information, please refer to [email or web address] (This link is being provided for informational/ educational purposes only.) Blood 06/26/2024 7:51 AM BALANCER 06/26/2024 7:51 AM BALANCER us Jackeline Lozano MD LAB BLOOD ORDERABLES F inal Result [facility] [address] [place] [address] * (ABNORMAL) CBC with auto differential (06/26/2024 7:51 AM BALANCER) Pathologist [facility] WBC 6.4 3.8 - 10.8 Thousand/u L [...] Diagnostics-[facility] t [facility] Blood 06/26/2024 7:51 AM BALANCER 06/26/2024 7:51 AM BALANCER Jackeline Lozano MD LAB BLOOD ORDERABLES F inal Result Performing Organization Address City/[facility]/ZIP Co de Phone Number [facility] [address] [place] [address] * CRP (acute phase) (06/26/2024 7:51 AM BALANCER) Pathologist [facility] C-RP <3.0 <8.0 mg/L [employer] Blood 06/26/2024 7:51 AM BALANCER 06/26/2024 7:51 AM BALANCER Jackeline Lozano MD LAB BLOOD ORDERABLES F inal Result Performing Organization Address City/[facility]/ZIP Co de Phone Number [facility] [address] [place] [address] * (ABNORMAL) Comprehensive metabolic panel (06/26/2024 7:51 AM BALANCER) Pathologist [facility] Glucose 104(H) 65 - 99 mg/dL [facility] Comment: ? Fasting reference interval For someone without known diabetes, a glucose value between 100 and 125 mg/dL is consistent with prediabetes and should be confirmed with a follow-up test. BUN 15 7 - 25 mg/dL [employer] [facility] Creatinine 1.04 0.60 - 1.26 mg/dL [...] AST 19 10 - 40 U/L [facility] Her[facility] ALT (SGPT) 25 9 - 46 U/L [facility] Her[facility] Blood 06/26/2024 7:51 AM BALANCER 06/26/2024 7:51 AM BALANCER us Jackeline Lozano MD LAB BLOOD ORDERABLES F inal Result [facility] [address] [place] [address] from Last [place] [address] [facility] Advance Directives For more information, please contact: [phone] * Full Code (Latest Code Status on [...] 10:06 AM 01/23/2022 4:18 PM Care Teams Molding Press Operator Relationship Specialty Start Date End Date Lanre Parekh DO PCP - General Family Medicine 01/23/19 Eliana Quevedo MD [address] [facility] [address] [place] [address] Referring Physician Gastroenterology 11/07/22
--- OUTSIDE RECORDS SUMMARY | 2024-07-09 09:38 | XMS_ITS | Encounter Summary ---
Author Organization [employer] Address [address] [place] [address] Care Team Providers Care Finish Grinder Name Role Phone Not Found, Stl Primary Care Provider Unavailabl e Encounter Details Date Type Department Care Team (Latest Contact Info) Description 02/16/2005 Inpatient Historical HIS [place] [address] [place] [phone] REG ENTERITIS, LG INTEST (Primary Dx) Social [...] MD HEMATOLOGY ORDERABLE S Performing Organization Address [facility] Phone Number INTERFACE SYSTEM Refer to clinic/hospital department * CBC WITH DIFFERENTIAL (02/22/2005 5:23 AM CDT) NRBC 0 <=0 /100 WBC INTERFACE SYSTEM 02/22/2005 5:23 AM CDT Karol Tran MD HEMATOLOGY ORDERABLE S Performing Organization Address [facility] Phone Number INTERFACE SYSTEM Refer to [...] MD HEMATOLOGY ORDERABLE S Performing Organization Address [facility] Phone Number INTERFACE SYSTEM Refer to [...] ?II ? 174 - 512 ?186 - 476 ?III ?230 - 818 ?292 - 883 ?IV ? 396 - 776 ?394 - 920 ?V ?402 - 839 ?308 - 1138 ? Lab test performed by: [facility] [address] [place] [address] Lindsey MOSLEY MD 02/22/2005 5:23 AM CDT Karol Tran MD CHEMISTRY ORDERABLES Performing Organization Address [facility] Phone Number INTERFACE SYSTEM Refer to clinic/hospital department * TSH (02/22/2005 5:23 AM CDT) TSH 1.45 0.27 - 4.20 uU/mL INTERFACE SYSTEM 02/22/2005 5:23 AM CDT Karol Tran MD CHEMISTRY ORDERABLES Performing Organization Address [facility] Phone Number INTERFACE SYSTEM Refer to clinic/hospital department * T4 FREE (02/22/2005 5:23 AM CDT) T4 FREE 1.2 0.9 - 1.7 ng/dL INTERFACE SYSTEM 02/22/2005 5:23 AM CDT Karol Tran MD CHEMISTRY ORDERABLES Performing Organization Address [facility] Phone Number INTERFACE SYSTEM Refer to clinic/hospital department * (ABNORMAL) IRON AND TIBC (02/22/2005 5:23 AM CDT) IRON 168(H) 45 - 160 ug/dL INTERFACE SYSTEM IRON % SATURATION 62(H) 20 - 50 % INTERFACE SYSTEM TIBC 272 250 - 450 ug/dL INTERFACE SYSTEM 02/22/2005 5:23 AM CDT Karol Tran MD CHEMISTRY ORDERABLES Performing Organization Address [facility] Phone Number INTERFACE SYSTEM Refer to clinic/hospital department * C-REACTIVE PROTEIN (02/22/2005 5:23 AM CDT) CRP <0.5 0.0 - 0.8 mg/dL INTERFACE SYSTEM 02/22/2005 5:23 AM CDT Karol Tran MD CHEMISTRY ORDERABLES Performing Organization Address [facility] Phone Number INTERFACE SYSTEM Refer to clinic/hospital department * (ABNORMAL) RETICULOCYTES (02/22/2005 5:23 AM CDT) RETICULOCYTES 3.5(H) 0.5 - 2.0 % INTERFACE SYSTEM IMMATURE RETIC FRACTION 38(H) 0 - 16 % INTERFACE SYSTEM 02/22/2005 5:23 AM CDT Karol Tran MD HEMATOLOGY ORDERABLE S Performing Organization Address [facility] INTERFACE SYSTEM Refer to clinic/hospital department * TRIGLYCERIDE (02/22/2005 5:23 AM CDT) TRIGLYCERIDE 139 38 - 152 mg/dL INTERFACE SYSTEM Comment: Triglyceride ATP III Classification: Normal ? <150 ?mg/dL Borderline High ? 150 - 199 ?mg/dL High ?200 - 499 ?mg/dL Very High ?>= 500 ?mg/dL 02/22/2005 5:23 AM CDT Karol Tran MD CHEMISTRY ORDERABLES Performing Organization Address [facility] Phone Number INTERFACE SYSTEM Refer to clinic/hospital department * SEDIMENTATION RATE (02/22/2005 5:23 AM CDT) ESR (SEDIMENTATION RATE) 6 0 - 20 mm/hr INTERFACE SYSTEM 02/22/2005 5:23 AM CDT Karol Tran MD HEMATOLOGY ORDERABLE S Performing Organization Address [facility] Phone Number INTERFACE SYSTEM Refer to [...] Tran MD CHEMISTRY ORDERABLES Performing Organization Address [facility] Phone Number INTERFACE SYSTEM Refer to [...] MD HEMATOLOGY ORDERABLE S Performing Organization Address [facility] Phone Number INTERFACE SYSTEM Refer to [...] MD HEMATOLOGY ORDERABLE S Performing Organization Address [facility] Phone Number INTERFACE SYSTEM Refer to [...] MD HEMATOLOGY ORDERABLE S Performing Organization Address [facility] Phone Number INTERFACE SYSTEM Refer to clinic/hospital department * TRIGLYCERIDE (02/19/2005 5:40 AM CDT) TRIGLYCERIDE 81 38 - 152 mg/dL INTERFACE SYSTEM Comment: Triglyceride ATP III Classification: Normal ? <150 ?mg/dL Borderline High ? 150 - 199 ?mg/dL High ?200 - 499 ?mg/dL Very High ?>= 500 ?mg/dL 02/19/2005 5:40 AM CDT Karol Tran MD CHEMISTRY ORDERABLES Performing Organization Address [facility] Phone Number INTERFACE SYSTEM Refer to [...] Tran MD CHEMISTRY ORDERABLES Performing Organization Address [facility] Phone Number INTERFACE SYSTEM Refer to clinic/hospital department * TRIGLYCERIDE (02/16/2005 12:09 PM CDT) TRIGLYCERIDE 59 38 - 152 mg/dL INTERFACE SYSTEM Comment: Triglyceride ATP III Classification: Normal ? <150 ?mg/dL Borderline High ? 150 - 199 ?mg/dL High ?200 - 499 ?mg/dL Very High ?>= 500 ?mg/dL 02/16/2005 12:0 9 PM CDT Karol Tran MD CHEMISTRY ORDERABLES Performing Organization Address [facility] Phone Number INTERFACE SYSTEM Refer to [...] Primary documented in this encounter Care Teams Finish Grinder Relationship Specialty Start Date End Date Not Found, Stl NO ADDRESS ON FILE PCP - General 10/31/12 documented as of this encounter
--- OUTSIDE RECORDS SUMMARY | 2024-07-09 09:38 | XMS_ITS | Encounter Summary ---
Author Organization [employer] Address [address] [place] [address] Care Team Providers Care Rn Mds Coordinator Name Role Phone Not Found, Stl Primary Care Provider Unavailabl e Encounter Details Date Type Department Care Team (Latest Contact Info) Description 02/09/2005 Outpatient Historical HIS [facility] VU Tran, [place] [address] [place] [phone] REG ENTERITIS, LG INTEST (Primary Dx) Social [...] MD HEMATOLOGY ORDERABLE S Performing Organization Address [facility] Phone Number INTERFACE SYSTEM Refer to [...] MD HEMATOLOGY ORDERABLE S Performing Organization Address [facility] Phone Number INTERFACE SYSTEM Refer to [...] MD HEMATOLOGY ORDERABLE S Performing Organization Address City/[facility] Co de Phone Number INTERFACE SYSTEM Refer to clinic/hospital department * TSH REFLEXIVE (02/09/2005 3:02 PM CDT) TSH 1.84 0.27 - 4.20 uU/mL INTERFACE SYSTEM 02/09/2005 3:02 PM CDT Karol Tran MD CHEMISTRY ORDERABLES Performing Organization Address [facility] Phone Number INTERFACE SYSTEM Refer to clinic/hospital department * (ABNORMAL) SEDIMENTATION RATE (02/09/2005 3:02 PM CDT) ESR (SEDIMENTATION RATE) 51(H) 0 - 20 mm/hr INTERFACE SYSTEM 02/09/2005 3:02 PM CDT Karol Tran MD HEMATOLOGY ORDERABLE S Performing Organization Address [facility] Phone Number INTERFACE SYSTEM Refer to clinic/hospital department * (ABNORMAL) C-REACTIVE PROTEIN (02/09/2005 3:02 PM CDT) CRP 5.4(H) 0.0 - 0.8 mg/dL INTERFACE SYSTEM 02/09/2005 3:02 PM CDT Karol Tran MD CHEMISTRY ORDERABLES Performing Organization Address [facility] Phone Number INTERFACE SYSTEM Refer to clinic/hospital department documented in this encounter Visit Diagnoses Diagnosis Regional enteritis of large intestine- Primary documented in this encounter Care Teams Rn Mds Coordinator Relationship Specialty Start Date End Date Not Found, Stl NO ADDRESS ON FILE PCP - General 10/31/12 documented as of this encounter
--- OUTSIDE RECORDS SUMMARY | 2024-07-09 09:39 | XMS_ITS | Referral Summary ---
Author Organization [facility] Address [address] [place] [address] Care Team Providers Care Chief Juvenile Probation Officer Name Role Phone Lanre Parekh Primary Care Provide r Eliana Quevedo MD Unavailable [phone] Encounters Date Type Department Care Team Description 07/07/2024 5:[address] STENOGRAPHER - 07/08/2024 12:[address] STENOGRAPHER Hospital Encounter [facility] [address] [place] [address] Venkata Lynch MD Incarcerated incisional hernia (Primary Dx) Discharge Disposition: Discharge to home or self care 07/07/2024 7:[address] STENOGRAPHER - 07/07/2024 10:[address] STENOGRAPHER Surgery [facility] Operating Room [address] [place] [address] Venkata Lynch MD REPAIR INCISIONAL HERNIA 07/07/2024 7:[address] STENOGRAPHER Anesthesia Event [facility] Operating [address] [place] [address] Paul Macedo MD Rosen, Shayna, B.A. 07/04/2024 Telephone [facility]) - [facility] Minimally Invasive Surgery [address], [place] [id number] Venkata Lynch MD Medical Question/Miscellaneo us; Surgery Confirmation 06/23/2024 Telephone [facility] Gastroenterology [address]th [place] [address] [place] [address] Qi Maguire, JOSH Med Management- [place] 06/20/2024 Telephone [facility] Gastroenterology [address]th [place] [address] [place] [address] Karissa Guallpa, DESIGN CELL ENGINEER Prior Auth 06/20/2024 Telephone [facility]) - [facility] Minimally Invasive Surgery [address], [place] [address] Venkata Lynch MD Medical Question/Alicecellesa kamara; Scheduling Appointments 06/20/2024 [facility]) - [facility] Minimally Invasive Surgery [address], [place] [address] Gaby Hunter RMA 04/17/2024 Telephone [facility]) [facility] Minimally Invasive Surgery [address], [place] [address] Reyna Thomason, JOSH 04/16/2024 [facility]) [facility] Minimally Invasive Surgery [address], [place] [address] Reyna Thomason, RN from Last 3 Months [...] can get the Vitamin D today and warp picker the container for the 24hr urine. [...] least 2 continuous years, flagyl, Asacol, Azathioprine (5080-9656), Remicade (7373-3687, switched for insurance purposes), Humira (8092-8868, 6-month insurance interruption, re-initiation 10/2016, with dose [...] needed. Assessment & Plan (08/19/2020 10:[address] STENOGRAPHER): Remains in clinical remission but also felt [...] (12/20/2017): Added automatically from request for surgery [id number] Immunizations Name Administration Dates Next Due DTaP [...] any clubs o r organizations such as religion groups, unions, fraternal or athletic groups, or [...] place to sleep or slept in a penitentiary (including now)? No 11/03/2022 Personal Safety Answer Date Recorded Have you ever been in or are you currently in a harmful physical or emotional relationship or is someone making you feel afraid or unsafe? Denies 07/07/2024 Sex and Gender Information Value Date Recorded Sex Assigned at Not on file Legal Sex Male 11:[address] STENOGRAPHER Gender Identity Not on file Sexual Orientation Not on file Last Filed Vital Signs Vital Sign Reading Time Taken Comments Blood Pressure 123/84 07/08/2024 8:[address] STENOGRAPHER Pulse 69 07/08/2024 8:[address] STENOGRAPHER Temperature 36.7 ??C (98.1 ??F) 07/08/2024 8:38 AM CS T Respiratory Rate 18 07/08/2024 8:[address] STENOGRAPHER Oxygen Saturation 100% 07/08/2024 8:[address] STENOGRAPHER Inhaled Oxygen Concentration - - Weight 88.5 kg (195 lb) 07/07/2024 11:[address] STENOGRAPHER Height 172.7 cm (5' 8 ) 07/07/2024 11:[address] STENOGRAPHER Body Mass Index 29.65 07/07/2024 11:[address] STENOGRAPHER Plan of Treatment Not on file Medical Devices Implanted Type Area Liquor Grinding Mill Operator Device Identifier Shelf Expiration Date Model / Serial / Lot Mesh Suture Inc Mesh Surgical Tissue Synthetic Duramesh 3.9mm Polypropylene Msi-300 - [id number] Implanted:Qty: 1 on 07/07/2024 by Venkata Lynch MD at [facility] Mesh N/A: Abdomen [employer] [id number] 03/06/2028 MSI-300 / / [id number] Procedures Procedure Name Priority Date/Time Associated Diagnosis Comments EGFR Routine 07/07/2024 10:[address] STENOGRAPHER MAGNESIUM Routine 07/07/2024 10:[address] STENOGRAPHER BASIC METABOLIC PANEL Routine 07/07/2024 10:[address] STENOGRAPHER CBC WITHOUT DIFFERENTIAL Routine 07/07/2024 10:[address] STENOGRAPHER MT AN PROCEDURE PLACEHOLDER Routine 07/07/2024 8:[address] STENOGRAPHER MT AN ELECTIVE ENDOTRACHEAL AIRWAY Routine 07/07/2024 8:[address] STENOGRAPHER REVISION SCAR - ABDOMINAL 07/07/2024 7:[address] STENOGRAPHER Incisional hernia, incarcerated Special Needs Mesh OMENTECTOMY 07/07/2024 7:[address] STENOGRAPHER Incisional hernia, incarcerated Special Needs Mesh REPAIR INCISIONAL HERNIA 07/07/2024 7:[address] STENOGRAPHER Incisional hernia, incarcerated Special Needs Mesh TB TEST, QUANTIFERON GOLD Routine 06/26/2024 7:[address] STENOGRAPHER Crohn's disease of both small and large intestine with intestinal obstruction (HCC) High risk medications (not anticoagulants) long-term use Health care maintenance CRP (ACUTE PHASE) Routine 06/26/2024 7:[address] STENOGRAPHER Crohn's disease of both small and large intestine with intestinal obstruction (HCC) High risk medications (not anticoagulants) long-term use Health care maintenance COMPREHENSIVE METABOLIC PANEL Routine 06/26/2024 7:[address] STENOGRAPHER Crohn's disease of both small and large intestine with intestinal obstruction (HCC) High risk medications (not anticoagulants) long-term use Health care maintenance CBC WITH AUTO DIFFERENTIAL Routine 06/26/2024 7:[address] STENOGRAPHER Crohn's disease of both small and large intestine with intestinal obstruction (HCC) High risk medications (not anticoagulants) long-term use Health care maintenance from Last 3 Months Results * eGFR (07/07/2024 10:[address] STENOGRAPHER) eGFR >90 >=60 mL/min/1. 73 m2 Comment: [...] reviewed 2021. Blood 07/07/2024 10:[address] STENOGRAPHER 07/08/2024 12:[address] STENOGRAPHER Valdo Razo MD LAB BLOOD ORDERABLES Fin al Result [facility] [place] [address] * (ABNORMAL) CBC without differential (07/07/2024 10:[address] STENOGRAPHER) WBC 11.0(H) 3.8 - 9.9 K/cumm Hgb 12.4(L) 13.0 - 17.5 g/dL [facility] Hct 36.0(L) 38.9 - 50.3 % [facility] Plt 251 150 - 400 K/cumm [facility] MPV 10.8 9.1 - 12.3 fL [facility] RBC 3.60(L) 4.30 - 5.80 M/cumm [facility] MCV 100.0(H) 81.3 - 96.4 fL [facility] MCH 34.4(H) 27.1 - 33.3 pg [facility] MCHC 34.4 32.3 - 35.7 g/dL [facility] RDW CV 13.1 11.1 - 14.9 % [facility] RDW SD 48.0 35.7 - 48.1 fL [facility] NRBC abs 0.00 0.00 - 0.01 K/cumm [facility] Blood 07/07/2024 10:[address] STENOGRAPHER 07/08/2024 12:[address] STENOGRAPHER us Valdo Razo MD LAB BLOOD ORDERABLES Fin al Result Performing Organization Address City/[facility] Co de Phone Number [facility] [address] [facility] [place] [address] * Magnesium (07/07/2024 10:[address] STENOGRAPHER) [facility] Magnesium 2.0 1.4 - 2.5 mg/dL Blood 07/07/2024 10:[address] STENOGRAPHER 07/08/2024 12:[address] STENOGRAPHER Valdo Razo MD LAB BLOOD ORDERABLES Fin al Result Performing Organization Address [facility] de Phone Number [facility] [place] [address] * Basic metabolic panel (07/07/2024 10:[address] STENOGRAPHER) [facility] Sodium 135 135 - 145 mmol/L Potassium, pl 3.9 3.3 - 4.9 mmol/L [facility] Chloride 101 97 - 110 mmol/L [facility] CO2 23 22 - 32 mmol/L [facility] Anion gap 11 2 - 15 mmol/L [facility] BUN 9 6 - 25 mg/dL [facility] Creatinine 0.81 0.80 - 1.30 mg/dL [facility] Glucose 108 70 - 199 mg/dL [facility] Comment: Interpretive Data Fasting glucose [...] 2022. Calcium 8.5 8.5 - 10.3 mg/dL [facility] Blood 07/07/2024 10:[address] STENOGRAPHER 07/08/2024 12:[address] STENOGRAPHER Vlado Razo MD LAB BLOOD ORDERABLES Fin al Result [facility] [place] [address] * MT AN ELECTIVE ENDOTRACHEAL AIRWAY, MT AN PROCEDURE PLACEHOLDER (07/07/2024 8:[address] STENOGRAPHER) Narrative Franck Ugalde CRNA - 07/07/2024 8:[address] STENOGRAPHER Franck Ugalde CRNA ? 07/07/2024 ??8:13 AM Airway Patient location: OR Urgency: elective Indications for airway management: anesthesia Difficult airway: no Staff: Supervising provider: Paul Macedo MD Placed by: SHADE CLOTH FINISHER: Franck Ugalde CRNA Emergent airway documentation: Risks [...] TB test, quantiferon gold (06/26/2024 7:[address] STENOGRAPHER) QuantiFERON(R)-T B Gold Plus, 1 Tube NEGATIVE [...] T-lymphocytes. For additional information, please refer to https://education.HelpMeRent.com/faq/RPY910 (This link is being provided for informational/ educational purposes only.) Blood 06/26/2024 7:[address] STENOGRAPHER 06/26/2024 7:[address] STENOGRAPHER us Jackeline Lozano MD LAB BLOOD ORDERABLES F inal Result [facility] [address] [place] [address] * (ABNORMAL) CBC with auto differential (06/26/2024 7:[address] STENOGRAPHER) WBC 6.4 3.8 - 10.8 Thousand/u L [...] [facility] Blood 06/26/2024 7:[address] STENOGRAPHER 06/26/2024 7:[address] STENOGRAPHER Jackeline Lozano MD LAB BLOOD ORDERABLES F inal Result Performing Organization Address City/[facility]/ZIP Co de Phone Number [facility] [address] [place] [address] * CRP (acute phase) (06/26/2024 7:[address] STENOGRAPHER) C-RP <3.0 <8.0 mg/L [facility] Blood 06/26/2024 7:[address] STENOGRAPHER 06/26/2024 7:[address] STENOGRAPHER Jackeline Lozano MD LAB BLOOD ORDERABLES F inal Result [facility] [address] [place] [address] * (ABNORMAL) Comprehensive metabolic panel (06/26/2024 7:[address] STENOGRAPHER) [facility] Glucose 104(H) 65 - 99 mg/dL [facility] Comment: ? Fasting reference interval [...] [facility] Blood 06/26/2024 7:[address] STENOGRAPHER 06/26/2024 7:[address] STENOGRAPHER Jackeline Lozano MD LAB BLOOD ORDERABLES F inal Result [facility] [address] [place] [address] from Last 3 Months Insurance ANTHEM ACCESS CHOICE ANTHEM ACCESS CHOICE ANTHEM ACCESS CHOICE Advance Directives For more information, please contact: [phone] * Full Code (Latest Code Status on [...] 10:06 AM 01/23/2022 4:18 PM Care Teams Chief Juvenile Probation Officer Relationship Specialty Start Date End Date Lanre Parekh DO PCP - General Family Medicine 01/23/19 Eliana Quevedo MD [address] [place] [address] Referring Physician Gastroenterology 11/07/22
--- OUTSIDE RECORDS SUMMARY | 2024-07-09 09:40 | XMS_ITS | Encounter Summary ---
Author Organization [facility] Address [address] [place] [address] Phone Care Team Providers Care Manager Laboratory Name Role Phone Lanre Parekh Primary Care Provide r Eliana Quevedo MD Unavailable [phone] Reason for Visit * Reason Onset Date Comments Med Management- Hyrimoz 06/23/2024 Encounter Details Date Type Department Care Team (Late st Contact Info) Description 06/23/2024 Telephone [facility] Gastroenterology [address]th [place] [address] [place] [address] Qi Maguire RN Med Management- [place] Social History Tobacco Use Types Packs/Day Years [...] often do you attend chur ch or cheondoism services? 1 to 4 times per year 11/03/2022 Do you belong to any clubs o r organizations such as hindu groups, unions, fraternal or athletic groups, or [...] place to sleep or slept in a group home (including now)? No 11/03/2022 Personal Safety Answer Date Recorded Have you ever been in or are you currently in a harmful physical or emotional relationship or is someone making you feel afraid or unsafe? Denies 11/02/2022 Sex and Gender Information Value Date Recorded Sex Assigned at Not on file Legal Sex Male 11:11 PM GAS USAGE METER CLERK Gender Identity Not on file Sexual Orientation Not on file documented as of this encounter Miscellaneous Notes * Telephone Encounter - Qi Maguire RN - 06/23/2024 10:47 AM GAS USAGE METER CLERK Received a mychart from the patient that [...] be made in 24-72 business hours. Fax- [phone] PA # [phone] USAGE METER CLERK documented in this encounter Plan of Treatment Not on file documented as of this encounter Visit Diagnoses Not on filedocumented in this encounter Care Teams Manager Laboratory Relationship Specialty Start Date End Date Lanre Parekh DO PCP - General Family Medicine 01/23/19 Eliana Quevedo MD [address] [place] [address] Referring Physician Gastroenterology 11/07/22 documented as of this encounter
--- OUTSIDE RECORDS SUMMARY | 2024-07-09 09:40 | XMS_ITS | Encounter Summary ---
Author Organization [facility] Address [address] [place] [address] Phone Care Team Providers Care Kaiawhina Kura Kaupapa Maori Name Role Phone Lanre Parekh Primary Care Provide r Eliana Quevedo MD Unavailable [phone] Reason for Visit * Reason Onset Date Comments Prior Auth 06/20/2024 Encounter Details Date Type Department Care Team (Late st Contact Info) Description 06/20/2024 Telephone [facility] Gastroenterology [address] 12th [place] [address] [place] [address] Karissa Guallpa CMA Prior Auth [...] often do you attend chur ch or taoism services? 1 to 4 times per year 11/03/2022 Do you belong to any clubs o r organizations such as mu-ism groups, unions, fraternal or athletic groups, or [...] on file Legal Sex Male 11:11 PM NATIONAL RECRUITER Gender Identity Not on file Sexual Orientation Not on file documented as of this encounter Miscellaneous Notes * Telephone Encounter - Karissa Guallpa CMA - 06/20/2024 4:[address] Lozano patient needing PA. Adalimumab - Adaz 40 mg every week Will you please assist? ONAL RECRUITER documented in this encounter Plan of Treatment Not on file documented as of this encounter Visit Diagnoses Not on filedocumented in this encounter Care Teams Kaiawhina Kura Kaupapa Maori Relationship Specialty Start Date End Date Lanre Parekh DO PCP - General Family Medicine 01/23/19 Eliana Quevedo MD [address] [place] [address] Referring Physician Gastroenterology 11/07/22 documented as of this encounter
--- OUTSIDE RECORDS SUMMARY | 2024-07-09 09:41 | XMS_ITS | Encounter Summary ---
Author Organization [facility] Address [address] [place] [address] Phone Care Team Providers Care Pipe Washer Name Role Phone Lanre Parekh Primary Care Provide r Eliana Quevedo MD Unavailable [phone] Encounter Details Date Type Department Care Team (Late st Contact Info) Description 06/20/2024 Telephone [facility] Advanced Medicine ([facility]) - [facility] Minimally Invasive Surgery [address] [facility] Advanced Medicine 12th Floor, [place] [address] Gaby Hunter RMA Social History [...] often do you attend chur ch or alevism services? 1 to 4 times per year 11/03/2022 Do you belong to any clubs o r organizations such as pentecostalism groups, unions, fraternal or athletic groups, or [...] place to sleep or slept in a skilled nursing (including now)? No 11/03/2022 Personal Safety Answer Date Recorded Have you ever been in or are you currently in a harmful physical or emotional relationship or is someone making you feel afraid or unsafe? Denies 11/02/2022 Sex and Gender Information Value Date Recorded Sex Assigned at Not on file Legal Sex Male 11:11 PM PRODUCTION OPERATIONS MANAGER Gender Identity Not on file Sexual Orientation Not on file documented as of this encounter Miscellaneous Notes * Telephone Encounter - Gaby Hunter RMA - 06/20/2024 1:22 PM PRODUCTION OPERATIONS MANAGER Date: 06/20/2024 Reason for Call: Insurance Issue [...] information or he can also send a [employer] message. Pt agrees with and understands this plan. No other questions or issues. UCTION OPERATIONS MANAGER documented in this encounter Plan of Treatment Not on file documented as of this encounter Visit Diagnoses Not on filedocumented in this encounter Care Teams Pipe Washer Relationship Specialty Start Date End Date Lanre Parekh DO PCP - General Family Medicine 01/23/19 Eliana Quevedo MD [address] [place] [address] Referring Physician Gastroenterology 11/07/22 documented as of this encounter
--- OUTSIDE RECORDS SUMMARY | 2024-07-09 09:41 | XMS_ITS | Encounter Summary ---
Author Organization [facility] Address [address] [facility] [address] [place] [address] Phone Care Team Providers Care Rn Radiation Name Role Phone Lanre Parekh Primary Care Provide r Eliana Quevedo MD Unavailable [phone] Reason for Visit * Reason Onset Date Comments Medical Question/Miscellaneous 06/20/2024 Scheduling Appointments 06/20/2024 Encounter Details Date Type Department Care Team (Late st Contact Info) Description 06/20/2024 Telephone [facility] Advanced Medicine ([facility]) - [facility] Minimally Invasive Surgery [address] [facility] 12th Floor, [place] [address] Venkata Lynch MD [address] [facility] [id number] [place] [address] Medical Question/Miscellaneous; Scheduling Appointments Social History Tobacco [...] often do you attend chur ch or anglican services? 1 to 4 times per year 11/03/2022 Do you belong to any clubs o r organizations such as catholic groups, unions, fraternal or athletic groups, [...] place to sleep or slept in a [place] health care facility (including now)? No 11/03/2022 Personal Safety Answer Date Recorded Have you ever been in or are you currently in a harmful physical or emotional relationship or is someone making you feel afraid or unsafe? Denies 11/02/2022 Sex and Gender Information Value Date Recorded Sex Assigned at Not on file Legal Sex Male 11:11 PM BATHHOUSE ATTENDANT Gender Identity Not on file Sexual Orientation Not on file documented as of this encounter Miscellaneous Notes * Telephone Encounter - Allyson Greer RMA - 06/20/2024 3:43 PM BATHHOUSE ATTENDANT Per Pre-Determination, The insurance may not have the 2024 plan updated in their system- so we willhave to wait until after 07/02/24 to submit the Prior Authorization. HOUSE ATTENDANT * Telephone Encounter - Fredrick Leos - 06/20/2024 3:34 PM BATHHOUSE ATTENDANT Patient Query: Was an attempt to transfer [...] them to contact for a call back: [phone] HOUSE ATTENDANT documented in this encounter Plan of Treatment Not on file documented as of this encounter Visit Diagnoses Not on filedocumented in this encounter Care Teams Rn Radiation Relationship Specialty Start Date End Date Lanre Parekh DO PCP - General Family Medicine 01/23/19 Eliana Quevedo MD [address] [place] [address] Referring Physician Gastroenterology 11/07/22 documented as of this encounter
--- OUTSIDE RECORDS SUMMARY | 2024-07-09 09:42 | XMS_ITS | Encounter Summary ---
Author Organization [facility] Address [address] [place] [address] Phone Care Team Providers Care Lime Puller Name Role Phone Lanre Parekh DO Primary Care Provide r Eliana Quevedo MD Unavailable [phone] Encounter Details Date Type Department Care Team (Late st Contact Info) Description 04/16/2024 Telephone [facility] Advanced Medicine ([facility]) - [facility] Minimally Invasive Surgery [address] [facility] Advanced Medicine 12th Floor, [place] [address] Reyna Thomason RN Social History [...] often do you attend chur ch or presybeterian services? 1 to 4 times per year [...] place to sleep or slept in a usp (including now)? No 11/03/2022 Personal Safety Answer Date Recorded Have you ever been in or are you currently in a harmful physical or emotional relationship or is someone making you feel afraid or unsafe? Denies 11/02/2022 Sex and Gender Information Value Date Recorded Sex Assigned at Not on file Legal Sex Male 11:11 PM FINISH INSPECTOR Gender Identity Not on file Sexual Orientation Not on file documented as of this encounter Miscellaneous Notes * Telephone Encounter - Reyna Thomason RN - 04/16/2024 3:43 PM CDT Date: 04/16/2024 Reason for Call: Schedule Surgery Patient Provider: Dr. Lynch Medical/Surgical Information: Outcome/Plan: LVM for pt and requested pt to call our office at [phone] to coordinate getting a date scheduled for surgery with Dr. Lynch. documented in this encounter Plan of Treatment Not on file documented as of this encounter Visit Diagnoses Not on filedocumented in this encounter Care Teams Lime Puller Relationship Specialty Start Date End Date Lanre Parekh DO PCP - General Family Medicine 01/23/19 Eliana Quevedo MD [address] [place] [address] Referring Physician Gastroenterology 11/07/22 documented as of this encounter
--- OUTSIDE RECORDS SUMMARY | 2024-07-09 09:42 | XMS_ITS | Encounter Summary ---
Author Organization [facility] Address [address] [facility] [address] [place] [address] Phone Care Team Providers Care Shoe Repairman Name Role Phone Lanre Parekh Primary Care Provide r Eliana Quevedo MD Unavailable [phone] Reason for Visit * Consultation (Routine) - Closed Specialty Diagnoses / Procedures Referred By Contac t Referred To Contact Minimally Invasive Surgery Diagnoses Incisional hernia, without obstruction or gangrene Jackeline Lozano MD [address] [facility] [address] [place] [address] Phone: tel: fax: [facility] (All Locations) Referral ID Status Reason Start Date Expiration Date V isits Requested Visits Authorized [id number] Closed Specialty Services Required 12/10/2023 01/08/2025 1 1 Encounter Details Date Type Department Care Team (Latest Contact Info) Description 03/26/2024 1:30 PM CDT Office Visit [facility] Minimally Invasive Surgery [address] [address] [place] [address] Venkata Lynch MD [address] [facility] [id number] [place] [address] Incarcerated incisional hernia (Primary Dx); [...] often do you attend chur ch or synagogue services? 1 to 4 times per year 11/03/2022 Do you belong to any clubs o r organizations such as mosque groups, unions, fraternal or athletic groups, or [...] on file Legal Sex Male 11:11 PM POCKET MAKER Gender Identity Not on file Sexual [...] in that time please call us at [phone]. If your case is to be performed [...] from the original note were not included. [facility] Minimally Invasive Surgery New Ventral/Incisional Hernia Patient Evaluation Nic Teran [id number] 1990 Referring Physician: Jackeline Lozano,* PCP: Lanre [...] patient and reviewed, signed and dated in [facility]. Any additional past medical/surgical/social/family history was [...] was reviewed, which shows small fat containing French-cheese incisional hernia extending 4 cm in length [...] for CPAP evaluation. --- Venkata Lynch MD manager of environmental services Minimally Invasive GI Surgery & Abdominal Wall Reconstruction [facility] * Venkata Lynch MD - 03/26/2024 1:30 PM CDT Images from the original note were not included. [facility] Surgical Plan Form Minimally Invasive Surgery Nic Beck Parul 1990 [id number] Surgeon: Cris Chepachet: [x] PVT (POD 1) [] [facility] [] CAM (POD 4) [] [facility] [] [facility] (BMI <45) Patient class: [x] Outpatient In Bed [] Outpatient [] Surgery Admit [] Inpatient Postop Destination: [] Outpatient [x] Floor [] ICU Section I: Completed by the Surgeon Type: [x] Open [] Robotic [] Laparoscopic [] Endoscopic Laterality: [] Left [] Right [] Bilateral [x] N/A Anesthesia: [x] General [] MAC [] Consult [] Local Primary Procedure: Open incisional hernia ([id number]) Secondary Surgeon / Procedure: N/A Diagnosis / CPT: Initial, 3-10 cm, incarcerated - 13528 Postop Pain Request: None Case classification: [x] [...] 03/26/2024 documented in this encounter Care Teams Shoe Repairman Relationship Specialty Start Date End Date Lanre Parekh DO PCP - General Family Medicine 01/23/19 Eliana Quevedo MD [address] [place] [address] Referring Physician Gastroenterology 11/07/22 documented as of this encounter
--- OUTSIDE RECORDS SUMMARY | 2024-07-09 09:43 | XMS_ITS | Encounter Summary ---
Author Organization [facility] Address [address] [place] [address] Phone Care Team Providers Care Aco Coordinator Name Role Phone Lanre Parekh Primary Care Provide r Eliana Quevedo MD Unavailable [phone] Encounter Details Date Type Department Care Team (Late st Contact Info) Description 10/31/2023 Orders Only [facility] Gastroenterology [address] Advanced Medicine 12th [place] [address] [place] [address] Qi Maguire RN Crohn's disease [...] How often do you attend chur or druze services? 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 Non-fasting reference interval BUN 16 7 - 25 mg/dL Victor[facility] RiskonnectMichael mat Herrera Creatinine 0.97 0.60 - 1.26 mg/dL [facility] Herrera eGFR 105 > OR = 60 mL/min/1.7 3m2 [facility] river[facility] Javier BUN/creat ratio SEE NOTE: (calc) Victoriano [facility] mat Herrera Comment: ?? Not Reported: BUN and Creatinine are within ?? reference range. ? Sodium 135 135 - 146 mmol/L [facility] Potassium, pl 4.0 3.5 - 5.3 mmol/L [facility] Chloride 105 98 - 110 mmol/L [facility] Her[facility] CO2 24 20 - 32 mmol/L [facility] Calcium 9.1 8.6 - 10.3 mg/dL [facility] Protein, sr 7.6 6.1 - 8.1 g/dL [facility] Albumin 4.5 3.6 - 5.1 g/dL [facility] GLOBULIN 3.1 1.9 - 3.7 g/dL (calc) [facility] Alb/glob ratio 1.5 1.0 - 2.5 (calc) [facility] Bilirubin, total 0.7 0.2 - 1.2 mg/dL [facility] Alk phos 70 36 - 130 U/L [facility] Herrera AST 19 10 - 40 U/L [facility] J[facility] ALT (SGPT) 25 9 - 46 U/L [facility] Herrera Blood 11/19/2023 9:00 AM CDT 11/19/2023 9:00 AM CDT Narrative [facility] - 11/20/2023 11:26 AM CDT FASTING:NO FASTING: NO Jackeline Lozano MD LAB BLOOD ORDERABLES F inal Result [facility] [address] [place] [address] * (ABNORMAL) CBC with auto differential (11/19/2023 [...] BLOOD ORDERABLES F inal Result [facility] [address] [place] [address] documented in this encounter Visit Diagnoses Diagnosis Crohn's disease of both small and large intestine with intestinal obstruction (HCC)- Primary Routine health maintenance Unspecified examination High risk medications (not anticoagulants) long-term use Encounter for long-term (current) use of other medications documented in this encounter Care Teams Aco Coordinator Relationship Specialty Start Date End Date Lanre Parekh DO PCP - General Family Medicine 01/23/19 Eliana Quevedo MD [address] [place] [address] Referring Physician Gastroenterology 11/07/22 documented as of this encounter
--- OUTSIDE RECORDS SUMMARY | 2024-07-09 09:43 | XMS_ITS | Encounter Summary ---
Author Organization [facility] Address [address] [place] [address] Phone Care Team Providers Care Business Systems Advisor Name Role Phone Lanre Parekh Primary Care Provide r Eliana Quevedo MD Unavailable [phone] Reason for Referral * Consultation (Routine) - Closed Specialty Diagnoses / Procedures Referred By Contac t Referred To Contact Minimally Invasive Surgery Diagnoses Incisional hernia, without obstruction or gangrene Jackeline Lozano MD 1 [facility] [address] [place] [address] Phone: tel: fax: [facility] (All Locations) Referral ID Status Reason Start Date Expiration Date V isits Requested Visits Authorized [id number] Closed Specialty Services Required 12/10/2023 01/08/2025 1 1 Question Answer Please select the performing region: [facility] (All Locations) [167] # of visits: 1 Encounter Details Date Type Department Care Team (Late st Contact Info) Description 12/10/2023 1:30 PM CDT Office Visit [facility] Gastroenterology [address] [facility] 12th [place] [address] [place] [address] Jackeline Lozano MD 1 [facility] [address] [place] [address] Crohn's disease of both small and large [...] How often do you attend chur or oriental orthodox services? 1 to 4 times per year 11/03/2022 Do you belong to any clubs o r organizations such as samaritan groups, unions, fraternal or athletic groups, or [...] place to sleep or slept in a long-term (including now)? No 11/03/2022 Personal Safety Answer Date Recorded Have you ever been in or are you currently in a harmful physical or emotional relationship or is someone making you feel afraid or unsafe? 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 We encourage you to respond tothis confidential survey about your care. If you received excellent care, she would appreciate yourevaluation. Your feedback helps us to provide quality service at every visit. Thank you for your help in making our practice meet the highest expectations! [facility] Inflammatory Bowel Disease Center [facility] [address] [place] [address] [facility] [address] [place] [address] [address] [place] [address] opt. 1 We are committed to your [...] by your primary care physician or a ordnance engineer as patientswith IBD are at increased risk of skin cancer, moreso if on immunosuppressant medications. Bone health - IBD can weaken your bones. We recommend Calcium 4949-8577 mg daily, and vitamin D 800-1000 IU [...] NOT RECOMMENDED~~ Influenza (inactive) administered Pneumococcal PCV20 (Bnsslpw64) Pneumococcal PPSV23 (PNUEMOVAX 23) Tdap >7 yrs [...] 13.4 (10/2022). Patient was recently hospitalized at [facility] in October 2022 for diarrhea and abdominal [...] months, sooner if needed. Jasiel Garcia, MSN SECURITY OPERATIONS CENTER ANALYST TIMBER DEADENER-C Family Nurse Practitioner, [facility] Inflammatory Bowel Disease Center Division of Gastroenterology Cosigned by Jackeline Lozano MD at 12/11/2023 7:19 AM CDT Associated [...] analytical performance characteristics have been determined by [facility]. It has not been cleared or approved [...] analytical performance characteristics have been determined by [facility]. It has not been cleared or approved by the FDA. This assay has been validated pursuant to the CLIA regulations and is used for clinical purposes. [facility] [address] [facility] [address] [facility] [address] Joshua Parikh MD, PhD Blood 03/24/2024 2:53 PM CDT 03/24/2024 2:53 PM CDT us Jackeline Lozano MD LAB BLOOD ORDERABLES F inal Result [facility] [address] [facility] [address] [place] [address] * CRP (acute phase) (03/24/2024 2:53 PM CDT) Pathologist [facility] C-RP <3.0 <8.0 mg/L [facility] Blood 03/24/2024 2:53 PM CDT 03/24/2024 2:53 PM CDT us Jackeline Lozano MD LAB BLOOD ORDERABLES F inal Result [facility] [address] [place] [address] * (ABNORMAL) Comprehensive metabolic panel (03/24/2024 2:53 PM CDT) Pathologist [facility] Glucose 108(H) 65 - 99 mg/dL By[facility]ale Herrera Comment: ? Fasting reference interval For someone without known diabetes, a glucose value between 100 and 125 mg/dL is consistent with prediabetes and should be confirmed with a follow-up test. BUN 11 7 - 25 mg/dL [facility] Herrera Creatinine 1.01 0.60 - 1.26 mg/dL [facility] Her[facility] eGFR 100 > OR = 60 mL/min/1.7 3m2 [facility] Herrera BUN/creat ratio SEE NOTE: 6 22 (calc) BybanMichael Herrera Comment: ?? Not Reported: BUN and Creatinine are within ?? reference range. ? Sodium 138 135 - 146 mmol/L [facility] Potassium, pl 4.1 3.5 - 5.3 mmol/L [facility] Chloride 101 98 - 110 mmol/L [facility] CO2 28 20 - 32 mmol/L [facility] Calcium 9.6 8.6 - 10.3 mg/dL [facility] Protein, sr 7.6 6.1 - 8.1 g/dL [facility] Her[facility] Albumin 4.5 3.6 - 5.1 g/dL [facility] GLOBULIN 3.1 1.9 - 3.7 [...] ORDERABLES F inal Result VICTORIANO [facility] [address] [place] [address] * (ABNORMAL) CBC with auto differential (03/24/2024 [...] ORDERABLES F inal Result [facility] [address] [place] [address] documented in this encounter Visit Diagnoses Diagnosis Crohn's disease of both small and large intestine without complication (CMS/HCC) (HCC)- Primary High risk medications (not anticoagulants) long-term use Encounter for long-term (current) use of other medications Health care maintenance Incisional hernia, without obstruction or gangrene documented in this encounter Care Teams Business Systems Advisor Relationship Specialty Start Date End Date Lanre Parekh DO PCP - General Family Medicine 01/23/19 Eliana Quevedo MD [address] [place] [address] Referring Physician Gastroenterology 11/07/22 documented as of this encounter
--- OUTSIDE RECORDS SUMMARY | 2024-07-09 09:43 | XMS_ITS | Encounter Summary ---
Author Organization [facility] Address [address] [place] [address] Care Team Providers Care Kiln Stoker Name Role Phone dEuinisaiahbandar Lanreezequiel Conway DO Primary Care Provide r Eliana Quevedo MD Unavailable [phone] Encounter Details Date Type Department Care Team (Late st Contact Info) Description 12/10/2023 Documentation [facility] [address] [facility] [address] [place] [address] Margie Parks, [facility] Social History Tobacco Use Types Packs/Day Years [...] often do you attend chur ch or moravian services? 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 Completed by: Margie Parks RPh documented in this encounter Plan of Treatment Not on file documented as of this encounter Visit Diagnoses Not on filedocumented in this encounter Care Teams Kiln Stoker Relationship Specialty Start Date End Date Lanre Parekh DO PCP - General Family Medicine 01/23/19 Eliana Quevedo MD [address] [place] [address] Referring Physician Gastroenterology 11/07/22 documented as of this encounter
--- OUTSIDE RECORDS SUMMARY | 2024-07-09 09:43 | XMS_ITS | Encounter Summary ---
Author Organization [facility] Address [address] [place] [address] Care Team Providers Care Thread Puller Name Role Phone Eduinisaiahbandar Lanreezequiel Conway DO Primary Care Provide r Eliana Quevedo MD Unavailable [phone] Encounter Details Date Type Department Care Team (Late st Contact Info) Description 12/26/2023 Documentation [facility] [address] [place] [id number] Margie Parks, [facility] Social History Tobacco Use Types Packs/Day [...] often do you attend chur ch or anabaptism services? 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 Gender Identity Not on file Sexual Orientation Not on file documented as of this encounter Miscellaneous Notes * Research Note - Margie Parks, [facility] - 12/26/2023 11:28 AM CDT Adalimumab-adaz copay card information BIN: [id number] ID: [id number] Group: [id number] documented in this encounter Plan of Treatment Not on file documented as of this encounter Visit Diagnoses Not on filedocumented in this encounter Care Teams Thread Puller Relationship Specialty Start Date End Date Lanre Parekh DO PCP - General Family Medicine 01/23/19 Eliana Quevedo MD [address] [place] [address] Referring Physician Gastroenterology 11/07/22 documented as of this encounter
--- OUTSIDE RECORDS SUMMARY | 2024-07-09 09:45 | XMS_ITS | Encounter Summary ---
Author Organization [facility] Address [address] [place] [address] Phone Care Team Providers Care Pension Fund Manager Name Role Phone Lanre Parekh Primary Care Provide r Eliana Quevedo MD Unavailable [phone] Encounter Details Date Type Department Care Team (Late st Contact Info) Description 06/08/2023 Orders Only [facility] Gastroenterology [address] [facility] 12th [place] [address] [place] [address] Qi Maguire RN Crohn's disease [...] How often do you attend chur or scientologist services? 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
--- OUTSIDE RECORDS SUMMARY | 2024-07-09 09:45 | XMS_ITS | Encounter Summary ---
Author Organization [facility] Address [address] [place] [address] Phone Care Team Providers Care Registered Medical Assistant Name Role Phone Lanre Parekh Primary Care Provide r Eliana Quevedo MD Unavailable [phone] Reason for Visit * Reason Comments Osteopenia Encounter Details Date Type Department Care Team (Latest Contact Info) Description 06/04/2023 2:00 PM PAVILION CUTTER Office Visit [facility] [address] [place] [address] [place] [address] Fernando Mckeon MD [address] [facility] [place] [address] Crohn's disease without complication, unspecified [...] week 11/03/2022 How often do you attend [facility] or quaker services? 1 to 4 times per year 11/03/2022 Do you belong to any clubs o r organizations such as jewish groups, unions, fraternal or athletic groups, or [...] place to sleep or slept in a alf (including now)? No 11/03/2022 Personal Safety Answer Date Recorded Have you ever been in or are you currently in a harmful physical or emotional relationship or is someone making you feel afraid or unsafe? Denies 11/02/2022 Sex and Gender Information Value Date Recorded Sex Assigned at Not on file Legal Sex Male 11:11 PM PAVILION CUTTER Gender Identity Not on file Sexual Orientation Not on file documented as of this encounter Last Filed Vital Signs Vital Sign Reading Time Taken Comments Blood Pressure - - Pulse - - Temperature - - Respiratory Rate - - Oxygen Saturation - - Inhaled Oxygen Concentration - - Weight 88.7 kg (195 lb 9.6 oz) 06/04/2023 2:01 P M PAVILION CUTTER Height 171.2 cm (5' 7.4 ) 06/04/2023 2:01 PM PAVILION CUTTER Body Mass Index 30.27 06/04/2023 2:01 PM PAVILION CUTTER documented in this encounter Patient Instructions * Patient Instructions* Fernando Mckeon MD - 06/04/2023 2:00 PM PAVILION CUTTER Bone Health Program Discharge and Information Sheet Contact: Call: [phone] or [phone] FAX: [phone] Name: Nic Kiran Teran Thank you for choosing the [facility] for consultation about [...] Calcium, Vitamin D and Excercise - Calcium 2826-5700 mg daily, through a combination of diet and supplements - Vitamin D 1827-1843 IU daily - Weight bearing activity as [...] Follow Up Appointment: Please stop at the front office help to make a follow-up appointment in 1 year or call [phone]. Every attempt will be made to schedule [...] to give our office a call at [phone] option # 1. Bone Density Testing: To ensure the best quality of care, we strongly recommend you have all your follow up bone density tests done at our center. Bone density tests cannot be compared between different facilities. If another physician requests a bone density test for you, please let her/him know that your bone density is being monitored by the [facility]. If your other providers have questions or would like a report of your bone density scans, they can contact [facility] [phone] or Medical Records at [phone]. Important! Always remember to stop taking your calcium supplements 24 hours before you are scheduled to have your bone density test at your next visit. If you need to make changes to your follow-up appointment or are running late to your visit at the Bone Health Program, please contact us as soon as possible at [phone] ([facility]), or [phone] ([facility]), or [phone] ([facility]). We work on a very tight schedule and depending on the circumstances it may be necessary to resched ule your appointment if no other time slot is available on the same day. [employer] patient portal allows you to view your medical records, test results, personal information,request prescription renewals, review past appointments, request new ones and securely communicate online with our office. Ask at the studio receptionist desk about receiving an invite to join [employer] portal. For questions about accessing [employer] patient portal call [phone]. Feel free to visit our web site for further information on medications, diet, exercise and other things you can do to take charge of your bone health: [email or web address] Thank you for choosing the [facility]! LION CUTTER documented in this encounter Progress Notes * [...] Fractures: none Activity: Started working out [employer] work out group after being introduced by [...] Supervised by Dr. Karol Tran, a pediatric compensation programs manager at [facility]. 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 He has 2 children, 3.5 Years and [...] 242 mg/24hrs (1) Low bone mass: DEXA [id number] Lumbar Spine Tscore - 0.9 , Left [...] patient to the [facility] at [facility]. Please let us know if I can be of any more assistance. If you have any questions or concerns please do not hesitate to give us a call. LION CUTTER LION CUTTER documented in this encounter Plan of Treatment [...] morning added in this encounter Care Teams Registered Medical Assistant Relationship Specialty Start Date End Date Lanre Parekh DO PCP - General Family Medicine 01/23/19 Eliana Quevedo MD [address] [place] [address] Referring Physician Gastroenterology 11/07/22 documented as of this encounter
--- OUTSIDE RECORDS SUMMARY | 2024-07-09 09:45 | XMS_ITS | Encounter Summary ---
Author Organization [facility] Address [address] [place] [address] Phone Care Team Providers Care Automobile Service Station Mechanic Name Role Phone Lanre Parekh Primary Care Provide r Eliana Quevedo MD Unavailable [phone] Encounter Details Date Type Department Care Team (Late st Contact Info) Description 09/27/2023 Telephone [facility] Gastroenterology [address] 12th [place] [address] [place] [address] Karissa Guallpa, PLAYER DEVELOPMENT MANAGER Social History Tobacco Use Types Packs/Day Years [...] often do you attend chur ch or uatsdin services? 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 Pt updates via [employer]. * Telephone Encounter - Karissa Guallpa CMA - 09/27/2023 11:16 AM CDT Received call from [facility] Specialty pharmacy requesting prescription for Hyrimoz due to the preferred formulary change. Insurance will no longer cover Humira. documented in this encounter Plan of Treatment Not on file documented as of this encounter Visit Diagnoses Not on filedocumented in this encounter Care Teams Automobile Service Station Mechanic Relationship Specialty Start Date End Date Lanre Parekh DO PCP - General Family Medicine 01/23/19 Eliana Quevedo MD [address] [place] [address] Referring Physician Gastroenterology 11/07/22 documented as of this encounter
--- OUTSIDE RECORDS SUMMARY | 2024-07-09 09:45 | XMS_ITS | Encounter Summary ---
Author Organization [facility] Address [address] [place] [address] Phone Care Team Providers Care Renderer Name Role Phone Lanre Parekh Primary Care Provide r Eliana Quevedo MD Unavailable [phone] Encounter Details Date Type Department Care Team (Late st Contact Info) Description 06/26/2023 Orders Only [facility] Gastroenterology [address] [place] [address] [facility] [address] 12th [place] [address] [place] [address] Qi Maguire RN Crohn's disease [...] often do you attend chur ch or mormon services? 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
--- OUTSIDE RECORDS SUMMARY | 2024-07-09 09:45 | XMS_ITS | Encounter Summary ---
Author Organization [facility] Address [address] [place] [address] Phone Care Team Providers Care Child Care Counselor Name Role Phone Lanre Parekh Primary Care Provide r Eliana Quevedo MD Unavailable [phone] Reason for Visit * Reason Comments Osteoporosis * Diagnostic Imaging (Routine) - Pending Review Specialty Diagnoses / Procedures Referred By Contac t Referred To Contact Diagnoses Low bone mass Procedures Dexa TBS Axial Skeleton Bone Density 1 or more sites Fernando Mckeon MD Phone: tel: fax: [facility] (All Locations) Referral ID Status Reason Start Date Expiration Date V isits Requested Visits Authorized [id number] Pending Review 05/23/2023 06/21/2024 1 1 Encounter Details Date Type Department Care Team (Latest Contact Info) Description 06/04/2023 1:30 PM AUTOMOTIVE SALES ASSOCIATE Clinical Support [facility] [address] 5th [place] [address] [place] [address] Crohn's disease without complication, unspecified [...] often do you attend chur ch or taoist services? 1 to 4 times per year [...] file Legal Sex Male 11:11 PM AUTOMOTIVE SALES ASSOCIATE Gender Identity Not on file Sexual Orientation Not on file documented as of this encounter Plan of Treatment Not on file documented as of this encounter Procedures Procedure Name Priority Date/Time Associated Diagnosis Comments DEXA TBS AXIAL SKELETON BONE DENSITY 1 OR MORE SITES Schedule Routine, Read Routine (OP Routine) 06/04/2023 1:40 PM AUTOMOTIVE SALES ASSOCIATE Low bone mass documented in this encounter Results * Dexa TBS Axial Skeleton Bone Density 1 or more sites (06/04/2023 1:40 PM AUTOMOTIVE SALES ASSOCIATE) Anatomical Region Laterality Modality Wrist, Body N/A Radiographic Nancy ging Narrative 06/06/2023 12:44 AM AUTOMOTIVE SALES ASSOCIATE Patient Name: Nic Teran Date of : 1990 Date of scan: 06/04/2023 Bone mineral density was performed on a HoloFuturlink Discovery Densitometer. ?? Based on machine cross-calibration [...] by the International Society of Clinical Densitometry. [id number] Fernando Mckeon MD IM DXA PROCEDURES Final Result documented in this encounter Visit Diagnoses Diagnosis Crohn's disease without complication, unspecified gastrointestinal tract location (HCC)- Primary Low bone mass documented in this encounter Care Teams Child Care Counselor Relationship Specialty Start Date End Date Lanre Parekh DO PCP - General Family Medicine 01/23/19 Eliana Quevedo MD [address] [place] [address] Referring Physician Gastroenterology 11/07/22 documented as of this encounter
--- OUTSIDE RECORDS SUMMARY | 2024-07-09 09:46 | XMS_ITS | Encounter Summary ---
Author Organization [facility] Address [address] [place] [address] Phone Care Team Providers Care Home Appliance Technician Name Role Phone Lanre Parekh Primary Care Provide r Eliana Quevedo MD Unavailable [phone] Reason for Visit * Reason Onset Date Comments appointment 06/01/2023 06.04.2023 Encounter Details Date Type Department Care Team (Late st Contact Info) Description 06/01/2023 Telephone [facility] [address] [facility] 5th [place] [address] [place] [address] Fernando Mckeon MD [address] [facility] [address] [place] [address] appointment (06.04.2023) Social History Tobacco [...] week 11/03/2022 How often do you attend [facility] or jewish services? 1 to 4 times per year [...] on file Legal Sex Male 11:11 PM RADIO DISC JOCKEY Gender Identity Not on file Sexual Orientation Not on file documented as of this encounter Miscellaneous Notes * Telephone Encounter - Dorinda Davis CMA - 06/01/2023 2:05 PM RADIO DISC JOCKEY Patient returned voicemail to confirmed appt with Dr. Mckeon on 06.04.23. O DISC JOCKEY * Telephone Encounter - Dorinda Davis CMA - 06/01/2023 1:41 PM RADIO DISC JOCKEY LVM with patient to confirm appt with Dr. Mckeon on 06.04.2023. O DISC JOCKEY documented in this encounter Plan of Treatment Not on file documented as of this encounter Visit Diagnoses Not on filedocumented in this encounter Care Teams Home Appliance Technician Relationship Specialty Start Date End Date Lanre Parekh DO PCP - General Family Medicine 01/23/19 Eliana Quevedo MD [address] [place] [address] Referring Physician Gastroenterology 11/07/22 documented as of this encounter
--- OUTSIDE RECORDS SUMMARY | 2024-07-09 09:46 | XMS_ITS | Encounter Summary ---
Author Organization [facility] Address [address] [place] [address] Phone Care Team Providers Care Cigar Packer And Picker Name Role Phone Lanre Parekh Primary Care Provide r Eliana Quevedo MD Unavailable [phone] Encounter Details Date Type Department Care Team (Late st Contact Info) Description 05/30/2023 3:00 PM OUTPATIENT CODING SPECIALIST Office Visit [facility] Gastroenterology [address] [facility] Advanced [facility] 12th [place] [address] [place] [address] Jackeline Lozano MD [address] [place] [address] Crohn's disease of both small and large [...] often do you attend chur ch or lutheran services? 1 to 4 times per year 11/03/2022 Do you belong to any clubs o r organizations such as buddhist groups, unions, fraternal or athletic groups, or [...] on file Legal Sex Male 11:11 PM OUTPATIENT CODING SPECIALIST Gender Identity Not on file Sexual Orientation Not on file documented as of this encounter Last Filed Vital Signs Vital Sign Reading Time Taken Comments Blood Pressure 150/90 05/30/2023 3:11 PM OUTPATIENT CODING SPECIALIST Pulse 62 05/30/2023 3:11 PM OUTPATIENT CODING SPECIALIST Temperature 36.9 ??C (98.4 ??F) 05/30/2023 3:11 PM CS T Respiratory Rate - - Oxygen Saturation - - Inhaled Oxygen Concentration - - Weight 88.7 kg (195 lb 9.6 oz) 05/30/2023 3:11 P M OUTPATIENT CODING SPECIALIST Height 172.7 cm (5' 8 ) 05/30/2023 3:11 PM OUTPATIENT CODING SPECIALIST Body Mass Index 29.74 05/30/2023 3:11 PM OUTPATIENT CODING SPECIALIST documented in this encounter Progress Notes [...] note, patient had a recent hospitalization at [facility] in October 2022 for diarrhea and [...] regimen and follow up in 6 months. ATIENT CODING SPECIALIST ATIENT CODING SPECIALIST documented in this encounter Plan of Treatment Not on file documented as of this encounter Results * (ABNORMAL) CBC with auto differential (05/30/2023 4:07 PM OUTPATIENT CODING SPECIALIST) Pathologist [facility] WBC 5.8 3.8 - 9.9 K/cumm [facility] Hgb 13.3 13.0 - 17.5 g/dL [facility] Comment: Interpretive Data A reference range for this assay has not been established for patients with an unknown legal sex. Please refer to the laboratory test catalog for established sex-specific reference intervals. Current interpretive data was last revised on 2023. Hct 39.2 38.9 - 50.3 % [facility] Comment: Interpretive Data A reference range for this assay has not been established for patients with an unknown legal sex. Please refer to the laboratory test catalog for established sex-specific reference intervals. Current interpretive data was last revised on 2023. Plt 222 150 - 400 K/cumm [facility] MPV 10.5 9.1 - 12.3 fL [facility] RBC 3.90(L) 4.30 - 5.80 M/cumm [facility] Comment: Interpretive Data A reference range for this assay has not been established for patients with an unknown legal sex. Please refer to the laboratory test catalog for established sex-specific reference intervals. Current interpretive data was last revised on 2023. MCV 100.5(H) 81.3 - 96.4 fL [facility] MCH 34.1(H) 27.1 - 33.3 pg [facility] MCHC 33.9 32.3 - 35.7 g/dL [facility] CV 13.9 11.1 - 14.9 % [facility] RDW SD 51.5(H) 35.7 - 48.1 fL [facility] NRBC abs 0.00 0.00 - 0.01 K/cumm [facility] Blood 05/30/2023 4:07 PM OUTPATIENT CODING SPECIALIST 05/30/2023 4:24 PM OUTPATIENT CODING SPECIALIST us Jackeline Lozano MD LAB BLOOD ORDERABLES F inal Result [facility] Department [place] [address] * Comprehensive metabolic panel (05/30/2023 4:07 PM OUTPATIENT CODING SPECIALIST) Sodium 139 135 - 145 mmol/L [facility] Potassium, pl 4.3 3.3 - 4.9 mmol/L [facility] Chloride 102 97 - 110 mmol/L [facility] CO2 29 22 - 32 mmol/L [facility] Anion gap 8 2 - 15 mmol/L [facility] BUN 12 6 - 25 mg/dL [facility] Creatinine 1.04 0.80 - 1.30 mg/dL [facility] Glucose 106 70 - 199 mg/dL [facility] 2022. Calcium 10.1 8.5 - 10.3 mg/dL [facility] Bilirubin, total 0.7 0.1 - 1.2 mg/dL [facility] Protein, pl 8.4 6.5 - 8.5 g/dL [facility] Albumin 4.8 3.5 - 5.0 g/dL [facility] Alk phos 76 40 - 130 Units/L [facility] ALT 37 7 - 55 Units/L [facility] AST 27 10 - 50 Units/L [facility] Blood 05/30/2023 4:07 PM OUTPATIENT CODING SPECIALIST 05/30/2023 4:24 PM OUTPATIENT CODING SPECIALIST us Jackeline Lozano MD LAB BLOOD ORDERABLES F inal Result Performing Organization Address [facility] Co de Phone Number [facility] [place] [address] * CRP (acute phase) (05/30/2023 4:07 PM OUTPATIENT CODING SPECIALIST) CRP 1.9 <=10.0 mg/L [facility] Blood 05/30/2023 4:0 7 PM OUTPATIENT CODING SPECIALIST 05/30/2023 4:24 PM OUTPATIENT CODING SPECIALIST us Jackeline Lozano MD LAB BLOOD ORDERABLES F inal Result Performing Organization Address [facility] Co de Phone Number [facility] Department [place] [address] * Hepatitis B core antibody, total Blood (05/30/2023 4:07 PM OUTPATIENT CODING SPECIALIST) Hep B core IgG/IgM Nonreactive Nonreactive [facility] Blood 05/30/2023 4:07 PM OUTPATIENT CODING SPECIALIST 05/30/2023 4:24 PM OUTPATIENT CODING SPECIALIST us Jackeline Lozano MD LAB MICROBIOLOGY - GEN ERAL ORDERABLES Final Result Performing Organization Address [facility] Co de Phone Number [facility] [place] [address] * Hepatitis B surface antibody (immune status) Blood (05/30/2023 4:07 PM OUTPATIENT CODING SPECIALIST) [facility] HBsAb (immune status) Reactive [facility] Comment:This result is consi stent with immunity to Hepatitis B Virus when used in the setting of routine screening. Current interpretive data was last revised on 22 HBsAb (immune status) index 32.5 mIUnits/m L [facility] Comment: The method for this assay was changed on 04/26/22. Quantitative results are approximately 0.5 log10 higher with the new assay in comparison with the one previously in use. Current interpretive data was last revised on 22. Blood 05/30/2023 4:07 PM OUTPATIENT CODING SPECIALIST 05/30/2023 4:24 PM OUTPATIENT CODING SPECIALIST Jackeline Lozano MD LAB MICROBIOLOGY - GEN ERAL ORDERABLES Final Result Performing Organization Address [facility] Co de Phone Number [facility] Department [place] [address] * Hepatitis B Surface Antigen Blood (05/30/2023 4:07 PM OUTPATIENT CODING SPECIALIST) [facility] HepBsAg Nonreactive Nonreactive [facility] Blood 05/30/2023 4:07 PM OUTPATIENT CODING SPECIALIST 05/30/2023 4:24 PM OUTPATIENT CODING SPECIALIST Jackeline Lozano MD LAB MICROBIOLOGY - GEN ERAL ORDERABLES Final Result Performing Organization Address [facility] Co de Phone Number [facility] Department [place] [address] * T-SPOT.TB Blood (05/30/2023 4:07 PM OUTPATIENT CODING SPECIALIST) [facility]SPOT[facility]TB Negative [facility] Comment: Normal Value: Negative A negative test [...] test. T-SPOT.TB Panel A Spot Count 0 [facility] T-SPOT.TB Panel B Spot Count 0 [facility] T-SPOT.TB Negative Control Passed [facility] T-SPOT.TB Positive Control Passed [facility] Comment: Test Performed at: [facility] [employer] [place], [place] ??[address] ? NEREIDA FRIED MD,PHD Blood 05/30/2023 4:07 PM OUTPATIENT CODING SPECIALIST 05/30/2023 6:23 PM OUTPATIENT CODING SPECIALIST us Jackeline Lozano MD LAB MICROBIOLOGY - GEN ERAL ORDERABLES Final Result [facility] Department [place] [address] documented in this encounter Visit Diagnoses Diagnosis Crohn's disease of both small and large intestine with intestinal obstruction (HCC)- Primary History of high risk medication treatment Routine health maintenance Unspecified examination documented in this encounter Care Teams Cigar Packer And Picker Relationship Specialty Start Date End Date Lanre Parekh DO PCP - General Family Medicine 01/23/19 Eliana Quevedo MD [address] [place] [address] Referring Physician Gastroenterology 11/07/22 documented as of this encounter
--- OUTSIDE RECORDS SUMMARY | 2024-07-09 09:46 | XMS_ITS | Encounter Summary ---
Author Organization [facility] Address [address] [place] [address] Phone Care Team Providers Care Daily Sales Audit Clerk Name Role Phone Lanre Parekh Primary Care Provide r Eliana Quevedo MD Unavailable [phone] Reason for Referral * Diagnostic Imaging (Routine) - Pending Review Specialty Diagnoses / Procedures Referred By Contac t Referred To Contact Diagnoses Low bone mass Procedures Dexa TBS Axial Skeleton Bone Density 1 or more sites Fernando Mckeon MD Phone: tel: fax: [facility] (All Locations) Referral ID Status Reason Start Date Expiration Date V isits Requested Visits Authorized [id number] Pending Review 05/23/2023 06/21/2024 1 1 CAL SERVICES ASSISTANT Encounter Details Date Type Department Care Team (Late st Contact Info) Description 05/23/2023 Orders Only [facility] Bone Health [address] [facility] 5th [place] [address] [place] [address] Fernando Mckeon MD [address] [facility] [address] [place] [address] Low bone mass (Primary Dx) Social [...] any clubs o r organizations such as adventism groups, unions, fraternal or athletic groups, or [...] file Legal Sex Male 11:11 PM MEDICAL SERVICES ASSISTANT Gender Identity Not on file Sexual Orientation Not on file documented as of this encounter Plan of Treatment Not on file documented as of this encounter Results * Dexa TBS Axial Skeleton Bone Density 1 or more sites (06/04/2023 1:40 PM MEDICAL SERVICES ASSISTANT) Anatomical Region Laterality Modality Wrist, Body N/A Radiographic Nancy ging Narrative 06/06/2023 12:44 AM MEDICAL SERVICES ASSISTANT Patient Name: Nic Teran Date of : 1990 Date of scan: 06/04/2023 Bone mineral density was performed on a [employer] Discovery Densitometer. ?? Based on machine cross-calibration [...] by the International Society of Clinical Densitometry. [id number] Fernando Mckeon MD IMG DXA PROCEDURES Final Result documented in this encounter Visit Diagnoses Diagnosis Low bone mass- Primary Crohn's disease without complication, unspecified gastrointestinal tract location (HCC)- Primary Low bone mass documented in this encounter Care Teams Daily Sales Audit Clerk Relationship Specialty Start Date End Date Lanre Parekh DO PCP - General Family Medicine 01/23/19 Eliana Quevedo MD [address] [place] [address] Referring Physician Gastroenterology 11/07/22 documented as of this encounter
--- OUTSIDE RECORDS SUMMARY | 2024-07-09 09:46 | XMS_ITS | Encounter Summary ---
Author Organization [facility] Address [address] [place] [address] Care Team Providers Care Anesthesiologist Name Role Phone Lanre Parekh DO Primary Care Provide r Eliana Quevedo MD Unavailable [phone] Reason for Referral * MRI/CAT/PET Scan (Routine) - Closed Specialty Diagnoses / Procedures Referred By Renay rivero Referred To Contact Radiology Diagnoses Sclerosing mesenteritis (HCC) Procedures CT Abdomen Pelvis W Contrast Eliana Quevedo MD [address] [place] [address] Phone: tel: fax: [address] [phone] Referral ID Status Reason Start Date Expiration Date Visits Re quested Visits Authorized [id number] Closed 03/06/2023 04/04/2024 1 1 Reason for Visit * MRI/CAT/PET Scan (Routine) - Closed Specialty Diagnoses / Procedures Referred By Renay rivero Referred To Contact Radiology Diagnoses Sclerosing mesenteritis (HCC) Procedures CT Abdomen Pelvis W Contrast Eliana Quevedo MD [address] [place] [address] Phone: tel: fax: [address] [phone] Referral ID Status Reason Start Date Expiration Date Visits Re quested Visits Authorized [id number] Closed 03/06/2023 04/04/2024 1 1 Encounter Details Date Type Department Care Team (Late st Contact Info) Description 03/08/2023 2:12 PM CDT - 03/08/2023 11:59 PM CDT Hospital Encounter [facility] [address] [place] [address] Eliana Quevedo MD [address] [place] [address] Sclerosing mesenteritis (HCC) Discharge Disposition: Discharge to [...] How often do you attend chur or episcopal services? 1 to 4 times per year 11/03/2022 Do you belong to any clubs o r organizations such as latter day groups, unions, fraternal or athletic groups, or [...] on file Legal Sex Male 11:11 PM BLENDING COORDINATOR Gender Identity Not on file Sexual [...] Creatinine POC 0.9 0.7 - 1.3 mg/dL [facility] Blood 03/08/2023 3:05 PM CDT 03/08/2023 3:05 PM CDT us Eliana Quevedo MD LAB POCT ORDERABLES - DEVICE Final Result [facility] Department [place] [address] documented in this encounter Visit Diagnoses Diagnosis [...] 03/08/2023 documented in this encounter Care Teams Anesthesiologist Relationship Specialty Start Date End Date Lanre Parekh DO PCP - General Family Medicine 01/23/19 Eliana Quevedo MD [address] [place] [address] Referring Physician Gastroenterology 11/07/22 documented as of this encounter
--- OUTSIDE RECORDS SUMMARY | 2024-07-09 09:46 | XMS_ITS | Encounter Summary ---
Author Organization [facility] Healthcare Address [address] [place] [address] Care Team Providers Care Electronic Organ Technician Name Role Phone Lanre Parekh DO Primary Care Provide r Eliana Quevedo MD Unavailable [phone] Encounter Details Date Type Department Care Team (Late st Contact Info) Description 05/30/2023 5:15 PM RETAIL RESET MERCHANDISER Lab [facility] [address] [place] [id number] Crohn's disease of both small and large [...] any clubs o r organizations such as oriental orthodox groups, unions, fraternal or athletic groups, or [...] on file Legal Sex Male 11:11 PM RETAIL RESET MERCHANDISER Gender Identity Not on file Sexual Orientation Not on file documented as of this encounter Miscellaneous Notes * Result Encounter Note - Jackeline Lozano MD - 05/30/2023 11:39 PM RETAIL RESET MERCHANDISER Test results are within the normal range. [place] RESET MERCHANDISER documented in this encounter Plan of Treatment Not on file documented as of this encounter Procedures Procedure Name Priority Date/Time Associated Diagnosis Comments T-SPOT.TB Routine 05/30/2023 4:07 PM RETAIL RESET MERCHANDISER Crohn's disease of both small and large intestine with intestinal obstruction (HCC) History of high risk medication treatment Routine health maintenance EGFR Routine 05/30/2023 4:07 PM RETAIL RESET MERCHANDISER Crohn's disease of both small and large intestine with intestinal obstruction (HCC) History of high risk medication treatment Routine health maintenance DIFFERENTIAL AUTO Routine 05/30/2023 4:0 7 PM RETAIL RESET MERCHANDISER Crohn's disease of both small and large intestine with intestinal obstruction (HCC) History of high risk medication treatment Routine health maintenance CBC WITH AUTO DIFFERENTIAL Routine 05/30/2023 4:07 PM RETAIL RESET MERCHANDISER Crohn's disease of both small and large intestine with intestinal obstruction (HCC) History of high risk medication treatment Routine health maintenance HEPATITIS B CORE ANTIBODY, TOTAL Routine 05/30/2023 4:07 PM RETAIL RESET MERCHANDISER Crohn's disease of both small and large intestine with intestinal obstruction (HCC) History of high risk medication treatment Routine health maintenance HEPATITIS B SURFACE ANTIBODY (IMMUNE STATUS) Routine 05/30/2023 4:07 PM RETAIL RESET MERCHANDISER Crohn's disease of both small and large intestine with intestinal obstruction (HCC) History of high risk medication treatment Routine health maintenance HEPATITIS B SURFACE ANTIGEN Routine 05/30/2023 4:07 PM RETAIL RESET MERCHANDISER Crohn's disease of both small and large intestine with intestinal obstruction (HCC) History of high risk medication treatment Routine health maintenance CRP (ACUTE PHASE) Routine 05/30/2023 4:0 7 PM RETAIL RESET MERCHANDISER Crohn's disease of both small and large intestine with intestinal obstruction (HCC) History of high risk medication treatment Routine health maintenance COMPREHENSIVE METABOLIC PANEL Routine 05/30/2023 4:07 PM RETAIL RESET MERCHANDISER Crohn's disease of both small and large intestine with intestinal obstruction (HCC) History of high risk medication treatment Routine health maintenance documented in this encounter Results * eGFR (05/30/2023 4:07 PM RETAIL RESET MERCHANDISER) eGFR >90 >=60 mL/min/1. 73 m2 CRUZ [...] last reviewed 2021. Blood 05/30/2023 4:07 PM RETAIL RESET MERCHANDISER 05/30/2023 4:33 PM RETAIL RESET MERCHANDISER us Jackeline Lozano MD LAB BLOOD ORDERABLES F inal Result [facility] [place] [address] * Differential, auto (05/30/2023 4:07 PM RETAIL RESET MERCHANDISER) Neutrophil abs 3.1 1.7 - 6.5 K/cumm [facility] Imm gran abs 0.0 0.0 - 0.1 K/cumm [facility] Lymphocyte abs 2.4 0.8 - 3.3 K/cumm [facility] Monocyte abs 0.4 0.2 - 0.8 K/cumm [facility] Eosinophil abs 0.1 0.0 - 0.5 K/cumm [facility] Basophil abs 0.1 0.0 - 0.1 K/cumm [facility] Neutrophil pct 51.0 % [facility] Comment: Interpretive Data Percent cell count reference ranges are not reported, since discordance with absolute values may lead to misinterpretation of CBC data. Current Interpretive Data was last revised on 2017. Imm gran pct 0.3 % [facility] Comment: Interpretive Data Percent cell count reference ranges are not reported, since discordance with absolute values may lead to misinterpretation of CBC data. Current Interpretive Data was last revised on 2017. Lymphocyte pct 39.6 % [facility] Comment: Interpretive Data Percent cell count reference ranges are not reported, since discordance with absolute values may lead to misinterpretation of CBC data. Current Interpretive Data was last revised on 2017. Monocyte pct 6.5 % [facility] Comment: Interpretive Data Percent cell count reference ranges are not reported, since discordance with absolute values may lead to misinterpretation of CBC data. Current Interpretive Data was last revised on 2017. Eosinophil pct 1.8 % [facility] Comment: Interpretive Data Percent cell count reference ranges are not reported, since discordance with absolute values may lead to misinterpretation of CBC data. Current Interpretive Data was last revised on 2017. Basophil pct 0.8 % [facility] Comment: Interpretive Data Percent cell count reference ranges are not reported, since discordance with absolute values may lead to misinterpretation of CBC data. Current Interpretive Data was last revised on 2017. Blood 05/30/2023 4:07 PM RETAIL RESET MERCHANDISER 05/30/2023 4:24 PM RETAIL RESET MERCHANDISER Jackeline Lozano MD LAB BLOOD ORDERABLES F inal Result [facility] [place] [address] * (ABNORMAL) CBC with auto differential (05/30/2023 4:07 PM RETAIL RESET MERCHANDISER) [facility] WBC 5.8 3.8 - 9.9 K/cumm [facility] Hgb 13.3 13.0 - 17.5 g/dL [facility] Comment: Interpretive Data A reference range for this assay has not been established for patients with an unknown legal sex. Please refer to the laboratory test catalog for established sex-specific reference intervals. Current interpretive data was last revised on 2023. Hct 39.2 38.9 - 50.3 % [facility] Comment: Interpretive Data A reference range for this assay has not been established for patients with an unknown legal sex. Please refer to the laboratory test catalog for established sex-specific reference intervals. Current interpretive data was last revised on 2023. Plt 222 150 - 400 K/cumm [facility] MPV 10.5 9.1 - 12.3 fL [facility] RBC 3.90(L) 4.30 - 5.80 M/cumm [facility] Comment: Interpretive Data A reference range for this assay has not been established for patients with an unknown legal sex. Please refer to the laboratory test catalog for established sex-specific reference intervals. Current interpretive data was last revised on 2023. MCV 100.5(H) 81.3 - 96.4 fL [facility] MCH 34.1(H) 27.1 - 33.3 pg [facility] MCHC 33.9 32.3 - 35.7 g/dL [facility] RDW CV 13.9 11.1 - 14.9 % [facility] RDW SD 51.5(H) 35.7 - 48.1 fL [facility] NRBC abs 0.00 0.00 - 0.01 K/cumm [facility] Blood 05/30/2023 4:07 PM RETAIL RESET MERCHANDISER 05/30/2023 4:24 PM RETAIL RESET MERCHANDISER Jackeline Lozano MD LAB BLOOD ORDERABLES F inal Result [facility] [place] [address] * Comprehensive metabolic panel (05/30/2023 4:07 PM RETAIL RESET MERCHANDISER) Sodium 139 135 - 145 mmol/L [facility] Potassium, pl 4.3 3.3 - 4.9 mmol/L [facility] Chloride 102 97 - 110 mmol/L [facility] CO2 29 22 - 32 mmol/L [facility] Anion gap 8 2 - 15 mmol/L [facility] BUN 12 6 - 25 mg/dL [facility] Creatinine 1.04 0.80 - 1.30 mg/dL [facility] Glucose 106 70 - 199 mg/dL [facility] Comment: Interpretive Data Fasting glucose >/= [...] 2022. Calcium 10.1 8.5 - 10.3 mg/dL [facility] Bilirubin, total 0.7 0.1 - 1.2 mg/dL [facility] Protein, pl 8.4 6.5 - 8.5 g/dL [facility] Albumin 4.8 3.5 - 5.0 g/dL [facility] Alk phos 76 40 - 130 Units/L [facility] ALT 37 7 - 55 Units/L [facility] AST 27 10 - 50 Units/L [facility] Blood 05/30/2023 4:07 PM RETAIL RESET MERCHANDISER 05/30/2023 4:24 PM RETAIL RESET MERCHANDISER us Jackeline Lozano MD LAB BLOOD ORDERABLES F inal Result Performing Organization Address [facility] Co de Phone Number [facility] [place] [address] * Hepatitis B surface antibody (immune status) Blood (05/30/2023 4:07 PM RETAIL RESET MERCHANDISER) HBsAb (immune status) Reactive [facility] Comment:This result is consi stent with immunity to Hepatitis B Virus when used in the setting of routine screening. Current interpretive data was last revised on 22 HBsAb (immune status) index 32.5 mIUnits/m L [facility] Comment: The method for this assay was changed on 04/26/22. Quantitative results are approximately 0.5 log10 higher with the new assay in comparison with the one previously in use. Current interpretive data was last revised on 22. Blood 05/30/2023 4:07 PM RETAIL RESET MERCHANDISER 05/30/2023 4:24 PM RETAIL RESET MERCHANDISER us Jackeline Lozano MD LAB MICROBIOLOGY - GEN ERAL ORDERABLES Final Result Performing Organization Address [facility] Co de Phone Number [facility] [place] [address] * CRP (acute phase) (05/30/2023 4:07 PM RETAIL RESET MERCHANDISER) CRP 1.9 <=10.0 mg/L [facility] Blood 05/30/2023 4:07 PM RETAIL RESET MERCHANDISER 05/30/2023 4:24 PM RETAIL RESET MERCHANDISER us Jackeline Lozano MD LAB BLOOD ORDERABLES F inal Result Performing Organization Address [facility]/State/ZIP Co de Phone Number [facility] [place] [address] * Hepatitis B core antibody, total Blood (05/30/2023 4:07 PM RETAIL RESET MERCHANDISER) [facility] Hep B core IgG/IgM Nonreactive Nonreactive [facility] Blood 05/30/2023 4:07 PM RETAIL RESET MERCHANDISER 05/30/2023 4:24 PM RETAIL RESET MERCHANDISER Jackeline Lozano MD LAB MICROBIOLOGY - GEN ERAL ORDERABLES Final Result Performing Organization Address [facility] Co de Phone Number [facility] [place] [address] * Hepatitis B Surface Antigen Blood (05/30/2023 4:07 PM RETAIL RESET MERCHANDISER) [facility] HepBsAg Nonreactive Nonreactive [facility] Blood 05/30/2023 4:07 PM RETAIL RESET MERCHANDISER 05/30/2023 4:24 PM RETAIL RESET MERCHANDISER us Jackeline Lozano MD LAB MICROBIOLOGY - GEN ERAL ORDERABLES Final Result Performing Organization Address [facility] Co de Phone Number [facility] [place] [address] * T-SPOT.TB Blood (05/30/2023 4:07 PM RETAIL RESET MERCHANDISER) [facility] T-SPOT.TB Negative [facility] Comment: Normal Value: Negative A negative test [...] test. T-SPOT.TB Panel A Spot Count 0 [facility] T-SPOT.TB Panel B Spot Count 0 [facility] T-SPOT.TB Negative Control Passed [facility] T-SPOT.TB Positive Control Passed [facility] Comment: Test Performed at: [facility] [place], [place] ??[phone] ? NEREIDA FRIED MD,PHD Blood 05/30/2023 4:07 PM RETAIL RESET MERCHANDISER 05/30/2023 6:23 PM RETAIL RESET MERCHANDISER Jackeline Lozano MD LAB MICROBIOLOGY - GEN ERAL ORDERABLES Final Result [facility] [place] [address] documented in this encounter Visit Diagnoses Diagnosis Crohn's disease of both small and large intestine with intestinal obstruction (HCC) History of high risk medication treatment Routine health maintenance Unspecified examination documented in this encounter Care Teams Electronic Organ Technician Relationship Specialty Start Date End Date Lanre Parekh DO PCP - General Family Medicine 01/23/19 Eliana Quevedo MD [address] [place] [address] Referring Physician Gastroenterology 11/07/22 documented as of this encounter
--- OUTSIDE RECORDS SUMMARY | 2024-07-09 09:47 | XMS_ITS | Encounter Summary ---
Author Organization [facility] Address [address] [place] [address] Phone Care Team Providers Care Wrapper Sorter Name Role Phone Lanre Parekh Primary Care Provide r Eliana Quevedo MD Unavailable [phone] Encounter Details Date Type Department Care Team (Late st Contact Info) Description 01/31/[address] [facility] Gastroenterology [address] [facility] Advanced Medicine 12th [place] [address] [place] [address] Michaela Mitchell, rn disease management Crohn's disease of both small and large [...] often do you attend chur ch or buddhism services? 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 Gender Identity Not on file Sexual Orientation Not on file documented as of this encounter Ordered Prescriptions Prescription Sig Dispense Quantity Refills Last Filled Start Date End Date adalimumab (Humira,CF, Pen) 40 mg/0.4 mL pen injector kitIndications:Cleaner Signs hn's disease of both small and large [...] documented as of this encounter Care Teams Wrapper Sorter Relationship Specialty Start Date End Date Lanre Parekh DO PCP - General Family Medicine 01/23/19 Eliana Quevedo MD [address] [place] [address] Referring Physician Gastroenterology 11/07/22 documented as of this encounter
--- OUTSIDE RECORDS SUMMARY | 2024-07-09 09:47 | XMS_ITS | Encounter Summary ---
Author Organization [facility] Address [address] [place] [address] Phone Care Team Providers Care Pipe Machine Operator Name Role Phone Lanre Parekh Primary Care Provide r Eliana Quevedo MD Unavailable [phone] Reason for Referral * MRI/CAT/PET Scan (Routine) - Closed Specialty Diagnoses / Procedures Referred By Contac t Referred To Contact Radiology Diagnoses Sclerosing mesenteritis (HCC) Procedures CT Abdomen Pelvis W Contrast Eliana Quevedo MD [address] [place] [address] Phone: tel: fax: [address] [phone] Referral ID Status Reason Start Date Expiration Date Visits Re quested Visits Authorized [id number] Closed 03/06/2023 04/04/2024 1 1 Encounter Details Date Type Department Care Team (Late st Contact Info) Description 03/06/2023 Orders Only [facility] Gastroenterology [address] [facility] Medicine 12th [place] [address] [place] [address] Shanika Braun Sclerosing mesenteritis (HCC) [...] often do you attend chur ch or catholic services? 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
--- OUTSIDE RECORDS SUMMARY | 2024-07-09 09:48 | XMS_ITS | Encounter Summary ---
Author Organization [facility] Medical [facility] Address [address] [address] Care Team Providers Care Board Certified Family Physician Name Role Phone Lanre Parekh DO Primary Care Provide r Eliana Quevedo MD Unavailable [phone] Encounter Details Date Type Department Care Team (Late st Contact Info) Description 11/16/2022 Telephone [facility] Medical [facility] Hospital[facility] [address] [place] [address] Romana Brush, [place] [address] [place] [phone] Social History Tobacco Use Types Packs/Day [...] any clubs o r organizations such as jainism groups, unions, fraternal or athletic groups, or [...] on file 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
--- OUTSIDE RECORDS SUMMARY | 2024-07-09 09:49 | XMS_ITS | Encounter Summary ---
Author Organization [facility] Healthcare Address [address] [place] [address] Care Team Providers Care Medical Superintendent Name Role Phone Lanre Parekh Primary Care Provide r Eliana Quevedo MD Unavailable [phone] Reason for Visit * Reason Comments Diarrhea Abdominal Pain * Auth/Cert (Routine) Specialty Diagnoses / Procedures Referred By Renay t Referred To Contact Diagnoses Hypocalcemia Abdominal pain HERMELINDO (acute kidney injury) (HCC) History of Crohn's disease Diarrhea, unspecified type Procedures na Referral ID Status Reason Start Date Expiration Date Visits Re quested Visits Authorized [id number] 1 1 Encounter Details Date Type Department Care Team (Latest Contact Info) Description 11/02/2022 8:27 PM CDT - 11/07/2022 2:50 PM CDT Hospital Encounter [address] [address] Beatrice Jones MD [address] [place] [address] Noreen Moura MD [address] [place] [address] [phone] Evaristo Ashraf MD [address] [place] [address] Osiel Garcia MD [address] [place] [phone] Abdominal pain (Primary Dx); Diarrhea, unspecified type; [...] week 11/03/2022 How often do you attend [facility] or tenriism services? 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 Gender Identity Not on file Sexual [...] Patient Age - 32 yrs Patient - [id number] [facility] - [id number] Document Creation Date: 11/07/2022 Admitting Provider, : Beatrice Jones MD Discharge Provider, : Evaristo Ashraf MD Primary Care Physician at Discharge: Lanre Parekh DO [phone] Admission Date: 11/02/2022 Discharge Date/time: 11/07/2022 Admission Location: [facility] LOS - LOS: 5 days DETAILS OF HOSPITAL STAY Hospital Problems/Diagnoses Principal Problem: Abdominal pain Active Problems: Crohn's disease of both small and large intestine (HCC) Diarrhea due to malabsorption Enteritis Acute kidney injury (CMS/HCC) (HCC) Hyponatremia Corticosteroid-induced neutrophilia Reason for Hospitalization: Abdominal Pain Hospital Course: Patient with history of Crohn's disease complicated by Ileocolonic stricture status post ileocecectomy in [address] [facility] with complaints of abdominal pain and non-bloody [...] 06/04/2023 2:00 PM Fernando Mckeon MD [facility] 5C [employer] Please schedule an appointment with the following [...] Lyubov Hudson M.D. AT T: Report ID: [id number] Reading Location: [place] [address] Recent Labs: Recent Labs Lab Units 11/07/2242411/06/22 [...] mg/dL 0.90 0.80 0.70* < > 1.40* [id number] mL/min/1.73 m2 116 120 125 < > [...] Cell Culture-based MDCK, Preservative Free, Antibiotic Free, Qxcakbvcjgycw22/07/2021, 04/20/2022 Pneumococcal Conjugate PCV 13 01/25/2017 Pneumococcal Polysaccharide PPV23 05/17/2017, 10/26/2022 Tdap 02/09/2014 Evaristo Ashraf MD documented in this encounter Discharge Instructions * Attachments The following attachments cannot be sent through Care Everywhere. * Acute Abdominal Pain (Discharge Care) (British) * Nutrition Tips for Relief of Diarrhea (Discharge Care) (British) documented in this encounter Medications at Time [...] MP, allopurinol. He follows with GI at [facility]. he presented to the emergency department with [...] concerns. Luke Jones MD Voice recognition software Graceful Tables Direct was used dictate and transcribe this document. Meat Apprentice variances may occur. Despite proofreading, typographical [...] Lyubov Hudson M.D. AT T: Report ID: [id number] Reading Location: [id number] Current Facility-Administered Medications Medication Dose Route Frequency [...] (premix) 3.375 g 3.375 g intravenous Q8H [facility] Beatrice Jones MD 28.8 mL/hr at 11/06/22 [...] Continue IV antibiotic for enteritis Moderate complexity: [facility] Voice recognition software [employer] Fluency Direct was used dictate and transcribe this document. Meat Apprentice variances may occur. Despite proofreading, typographical errors may occur. For patients or family members viewing this note through HihoCoderhart: This note was written as a communication [...] Lyubov Hudson M.D. AT T: Report ID: [id number] ReadingLocation: [id number] Current Facility-Administered Medications Medication Dose Route Frequency [...] (LOVENOX) syringe 40 mg 40 mg subcutaneous Daily-[facility] Beatrice Jones MD 40mg at 11/04/222034 [...] Continue IV antibiotic for enteritis Moderate complexity: [facility] Voice recognition software [employer] Fluency Direct was used dictate and transcribe this document. Meat Apprentice variances may occur. Despite proofreading, typographical errors may occur. For patients or family members viewing this note through Kromekt: This note was written as a communication [...] MP, allopurinol. He follows with GI at [facility]. he presented to the emergency department with [...] symptoms Luke Jones MD Voice recognition software Graceful Tables Direct was used dictate and transcribe this document. Meat Apprentice variances may occur. Despite proofreading, typographical [...] Lyubov Hudson M.D. AT T: Report ID: [id number] Reading Location: [id number] Current Facility-Administered Medications Medication Dose Route Frequency [...] Continue IV antibiotic for enteritis Moderate complexity: [facility] Voice recognition software PROnoise Fluency Direct was used dictate and transcribe this document. Meat Apprentice variances may occur. Despite proofreading, typographical errors may occur. For patients or family members viewing this note through HihoCoderhart: This note was written as a communication [...] 1101 Patient Spiritual Assessment Spirituality Assessed Yes Sabianism Affiliation Gnosticist Active in Buddhist Yes Place of Restorationism [facility] Spiritual Needs Prayer Clinical Encounter Type [...] Lyubov Hudson M.D. AT T: Report ID: [id number] Reading Location: [id number] Current Facility-Administered Medications Medication Dose Route Frequency [...] antibiotics. Moderate complexity: MDM Voice recognition software PROnoise Fluency Direct was used dictate and transcribe this document. Meat Apprentice variances may occur. Despite proofreading, typographical errors may occur. For patients or family members viewing this note through HihoCoderhart: This note was written as a communication [...] >16 min ( 21 minutes ) - [id number] PCP: Lanre Parekh DO Subjective abdominal pain [...] - 11/05/2022 9:24 AM CDTAssociated Order(s): COLONOSCOPY [facility] GI ENDOSCOPY Patient Name: Nic Escalera Procedure Date: 11/05/2022 9:24 AM Date of : 1990 Admit Type: Inpatient Age: 32 Gender: Male Attending MD: Luke Jones MD Room: [facility] ENDOSCOPY ROOM 05 Note Status: Finalized Procedure: [...] bowel preparation was evaluated using the BBPS ([place] Bowel Preparation Scale) with scores of: Right [...] On: 11/05/2022 9:24 AM Recognized by the [employer] for promoting quality [...] days. Follows up with Dr. Quevedo at [facility]. contrast CT showed mucosal hyperemia of several [...] with biopsies for CMV. Romana Brush, MSN, PROJECT SCIENTIST, SAMPLING EXPERT- Family Nurse Practitioner [facility] Voice recognition software Graceful Tables Direct was used dictate and transcribe this document. Meat Apprentice variances may occur. Despite proofreading, typographical [...] Crohn's flare. Follows with Dr. Quevedo at [facility]. He also admits to dark urine but [...] tendency for uric acid stone formation. Source: [facility] ShinyByte.Last revised 07-12-2017 CBC WITH AUTO DIFFERENTIAL - [...] Lyubov Hudson M.D. AT T: Report ID: [id number] Reading Location: [id number] ED COURSE/MEDICAL DECISION MAKING Differential diagnosis included but not limited to Crohn's flare, colonic fistula, abdominal abscess, gastroenteritis, umbilical hernia, other Patient's medical records were reviewed. I discussed management or test interpretation with the following outside physician, caregiver, senior living staff: GI, Dr. Jones ED Course as [...] patient's GI doctor Dr. Quevedo today of [facility] recommend getting C diff culture and O and P. By: Nelia Quezada PA Procedures FINAL IMPRESSION Abdominal pain Diarrhea, unspecified type History of Crohn's disease Hypocalcemia HERMELINDO (acute kidney injury) (CMS/HCC) ([facility]) DISPOSITION: Admit This examination was transcribed using the [employer] voice recognition system without human oenologist. In an effort to expedite patient care, this report has not been adjusted for typographical, grammatical, and syntax by a trained biomedical electronics technician. Nelia Quezada PA 11/02/222215 Cosigned by [...] fever Summary: * Plan of Care - Olean Pelayo RN - 11/05/2022 6:29 AM CDT [...] he follows up with Dr. Quevedo at [facility]. Patient has not taken his Purinethol in [...] (11/02/222200) Health Insurance Coverage: BC Prescription Coverage: [facility] Pharmacy: [id number] - [place], [place] - [address] [facility] [address] [facility] [phone] [place], [place] [address] [facility] [address] [facility] [address] [facility] [address] [facility] [address] [facility]/pharmacy #[id number] - [place], [address] [address] Primary Care Provider: Lanre Parekh DO Prior to Admission: Primary Caregiver: Self Who does the patient or legal guardian want to receive education instruction and discharge plans for after care assistance?: Name Caregiver Name: Quinton Escalera Relationship to patient: Caregiver Contact Information: [phone] Caregiver Address: [address] [place] [address] Support System: Spouse/Significant Other, Children Home Care [...] a week How often do you attend episcopalian or tenriism services?: 1 to 4 times per year Do you belong to any clubs or organizations such as episcopalian groups, unions, fraternal [...] Results * eGFR (11/07/2022 4:25 AM CDT) [facility] eGFR 116 mL/min/1. 73 m2 [facility] SIS [...] BLOOD ORDERABLES Final Re sult [facility] [address] [facility] Department [place] [address] * (ABNORMAL) Differential, auto (11/07/2022 4:25 AM CDT) Pathologist [facility] Neutrophil abs 2.8 1.7 - 6.5 K/cumm [facility] Imm gran abs 0.0 0.0 - 0.1 K/cumm [facility] Lymphocyte abs 3.4(H) 0.8 - 3.3 K/cumm [facility] Monocyte abs 0.4 0.2 - 0.8 K/cumm [facility] Eosinophil abs 0.1 0.0 - 0.5 K/cumm [facility] Basophil abs 0.0 0.0 - 0.1 K/cumm [facility] Neutrophil pct 41.9 % [facility] Comment: Consistent with previous result Interpretive Data Percent cell count reference ranges are not reported, since discordance with absolute values may lead to misinterpretation of CBC data. Current Interpretive Data was last revised on 2017. Imm gran pct 0.3 % [facility] Comment: Interpretive Data Percent cell count reference ranges are not reported, since discordance with absolute values may lead to misinterpretation of CBC data. Current Interpretive Data was last revised on 2017. Lymphocyte pct 50.1 % [facility] Comment: Interpretive Data Percent cell count reference ranges are not reported, since discordance with absolute values may lead to misinterpretation of CBC data. Current Interpretive Data was last revised on 2017. Monocyte pct 6.0 % [facility] Comment: Interpretive Data Percent cell count reference ranges are not reported, since discordance with absolute values may lead to misinterpretation of CBC data. Current Interpretive Data was last revised on 2017. Eosinophil pct 1.3 % [facility] Comment: Interpretive Data Percent cell count reference ranges are not reported, since discordance with absolute values may lead to misinterpretation of CBC data. Current Interpretive Data was last revised on 2017. Basophil pct 0.4 % [facility] Comment: Interpretive Data Percent cell count reference ranges are not reported, since discordance with absolute values may lead to misinterpretation of CBC data. Current Interpretive Data was last revised on 2017. Blood 11/07/2022 4:25 AM CDT 11/07/2022 4:49 AM CDT Beatrice Jones MD LAB BLOOD ORDERABLES Final Re sult Performing Organization Address [facility]/ZIP Co de Phone Number [facility] [address] [facility] Department [place] [address] * Basic metabolic panel (11/07/2022 4:25 AM CDT) [facility] Sodium 139 135 - 145 mmol/L [facility] Potassium, pl 3.6 3.3 - 4.9 mmol/L [facility] Chloride 103 97 - 110 mmol/L [facility] CO2 25 22 - 32 mmol/L [facility] Anion gap 11 2 - 15 mmol/L [facility] BUN 10 8 - 25 mg/dL [facility] Creatinine 0.90 0.80 - 1.30 mg/dL [facility] Glucose 98 70 - 199 mg/dL [facility] Comment: Interpretive Data Fasting glucose [...] 2022. Calcium 9.0 8.5 - 10.3 mg/dL [facility] Blood 11/07/2022 4:25 AM CDT 11/07/2022 4:49 AM CDT Beatrice Jones MD LAB BLOOD ORDERABLES Final Re sult Performing Organization Address [facility]/ZIP Co de Phone Number [facility] [address] [facility] Department [place] [address] * (ABNORMAL) CBC with auto differential (11/07/2022 4:25 AM CDT) [facility] WBC 6.7 3.8 - 9.9 K/cumm [facility] Hgb 13.4 13.0 - 17.5 g/dL [facility] Hct 38.8(L) 38.9 - 50.3 % [facility] Plt 232 150 - 400 K/cumm [facility] MPV 10.5 9.1 - 12.3 fL [facility] RBC 3.99(L) 4.30 - 5.80 M/cumm [facility] MCV 97.2(H) 81.3 - 96.4 fL [facility] MCH 33.6(H) 27.1 - 33.3 pg [facility] MCHC 34.5 32.3 - 35.7 g/dL [facility] RDW CV 12.9 11.1 - 14.9 % [facility] RDW SD 46.5 35.7 - 48.1 fL [facility] NRBC abs 0.00 0.00 - 0.01 K/cumm [facility] Blood 11/07/2022 4:25 AM CDT 11/07/2022 4:49 AM CDT Beatrice Jones MD LAB BLOOD ORDERABLES Final Re sult Performing Organization Address City/[facility]/ZIP Co de Phone Number [address] [place] [address] * (ABNORMAL) CRP (acute phase) (11/07/2022 4:25 AM CDT) Pathologist [facility] CRP 13.4(H) <=10.0 mg/L [facility] Blood 11/07/2022 4:2 5 AM CDT 11/07/2022 4:49 AM CDT Noreen Moura MD LAB BLOOD ORDERABLES Final Res ult [address] [place] [address] * (ABNORMAL) Erythrocyte sedimentation rate (11/07/2022 4:25 AM CDT) Erythrocyte sedimentation rate 39(H) 1 - 15 mm/hr [facility] Blood 11/07/2022 4:25 AM CDT 11/07/2022 4:49 AM CDT Noreen Moura MD LAB BLOOD ORDERABLES Final Res ult Performing Organization Address [facility] Co de Phone Number [facility] [address] [facility] [place] [address] * eGFR (11/06/2022 8:38 AM CDT) Pathologist [facility] eGFR 120 mL/min/1. 73 m2 [facility] Comment: [...] ORDERABLES Final Re sult Performing Organization Address City/[facility] Co de Phone Number [facility] [place] [address] * Differential, auto (11/06/2022 8:38 AM CDT) Neutrophil abs 2.6 1.7 - 6.5 K/cumm [facility] Imm gran abs 0.0 0.0 - 0.1 K/cumm [facility] Lymphocyte abs 2.2 0.8 - 3.3 K/cumm [facility] Monocyte abs 0.3 0.2 - 0.8 K/cumm [facility] Eosinophil abs 0.0 0.0 - 0.5 K/cumm [facility] Basophil abs 0.0 0.0 - 0.1 K/cumm [facility] Neutrophil pct 50.1 % [facility] Comment: Interpretive Data Percent cell count reference ranges are not reported, since discordance with absolute values may lead to misinterpretation of CBC data. Current Interpretive Data was last revised on 2017. Imm gran pct 0.4 % [facility] Comment: Interpretive Data Percent cell count reference ranges are not reported, since discordance with absolute values may lead to misinterpretation of CBC data. Current Interpretive Data was last revised on 2017. Lymphocyte pct 42.3 % [facility] Comment: Interpretive Data Percent cell count reference ranges are not reported, since discordance with absolute values may lead to misinterpretation of CBC data. Current Interpretive Data was last revised on 2017. Monocyte pct 6.0 % [facility] Comment: Interpretive Data Percent cell count reference ranges are not reported, since discordance with absolute values may lead to misinterpretation of CBC data. Current Interpretive Data was last revised on 2017. Eosinophil pct 0.8 % [facility] Comment: Interpretive Data Percent cell count reference ranges are not reported, since discordance with absolute values may lead to misinterpretation of CBC data. Current Interpretive Data was last revised on 2017. Basophil pct 0.4 % [facility] Comment: Interpretive Data Percent cell count reference ranges are not reported, since discordance with absolute values may lead to misinterpretation of CBC data. Current Interpretive Data was last revised on 2017. Blood 11/06/2022 8:38 AM CDT 11/06/2022 8:53 AM CDT Beatrice Jones MD LAB BLOOD ORDERABLES Final Re sult [facility] [address] [facility] [place] [address] * Basic metabolic panel (11/06/2022 8:38 AM CDT) Pathologist [facility] Sodium 139 135 - 145 mmol/L [facility] Potassium, pl 3.6 3.3 - 4.9 mmol/L [facility] Chloride 104 97 - 110 mmol/L [facility] CO2 24 22 - 32 mmol/L [facility] Anion gap 11 2 - 15 mmol/L [facility] BUN 8 8 - 25 mg/dL [facility] Creatinine 0.80 0.80 - 1.30 mg/dL [facility] Glucose 90 70 - 199 mg/dL [facility] Comment: Interpretive Data Fasting glucose [...] 2022. Calcium 8.9 8.5 - 10.3 mg/dL [facility] Blood 11/06/2022 8:38 AM CDT 11/06/2022 8:53 AM CDT Beatrice Jones MD LAB BLOOD ORDERABLES Final Re sult [facility] [address] [facility] Department [place] [address] * (ABNORMAL) CBC with auto differential (11/06/2022 8:38 AM CDT) Pathologist [facility] WBC 5.2 3.8 - 9.9 K/cumm [facility] Hgb 13.8 13.0 - 17.5 g/dL [facility] Hct 40.5 38.9 - 50.3 % [facility] Plt 220 150 - 400 K/cumm [facility] MPV 10.4 9.1 - 12.3 fL [facility] RBC 4.06(L) 4.30 - 5.80 M/cumm [facility] MCV 99.8(H) 81.3 - 96.4 fL [facility] MCH 34.0(H) 27.1 - 33.3 pg [facility] MCHC 34.1 32.3 - 35.7 g/dL [facility] RDW CV 13.2 11.1 - 14.9 % [facility] RDW SD 48.7(H) 35.7 - 48.1 fL [facility] NRBC abs 0.00 0.00 - 0.01 K/cumm [facility] Blood 11/06/2022 8:38 AM CDT 11/06/2022 8:53 AM CDT Beatrice Jones MD LAB BLOOD ORDERABLES Final Re sult [address] Department [place] [address] * Surgical pathology (11/05/2022 9:44 AM CDT) Tissue (Colon, Biopsy) 11/05/2022 9:44 AM CDT Tissue (Colon, Biopsy) 11/05/2022 9:45 AM CDT Tissue (Colon, Biopsy) 11/05/2022 9:46 AM CDT Tissue (Colon, Biopsy) 11/05/2022 9:47 AM CDT Tissue (Colon, Biopsy) 11/05/2022 9:47 AM CDT Tissue (Colon, Biopsy) 11/05/2022 9:48 AM CDT Narrative PATHOLOGY [facility] - 11/07/2022 12:52 PM CDT [facility] Department of Pathology [address] [place] [id number] ?? Note to Patients: ??This report may [...] the details. Final Report Patient Name: NIC ESCALEAR : ??1990 (Age: 32) Gender: ??M Address: ??[address] [place] [address] ??[address] [facility] #: [id number] Service: Medical Location: Patient Type: B INPATIENT [...] interpretation for this case was performed at [facility], Department of Surgical Pathology, [address] [place], [place] [id number], ??[facility], [place] ??[address] ?? CLIA # [id number] Luke Jones MD LAB PATHOLOGY ORDER YOSELYN Final Result PATHOLOGY [facility] * COLONOSCOPY (11/05/2022 9:24 AM CDT) Anatomical Region Laterality Modality Other Narrative Procedure Note Luke Jones MD - 11/05/2022 9:24 AM CDT [facility] GI ENDOSCOPY Patient Name: Nic Escalera Procedure Date: 11/05/2022 9:24 AM Date of : 1990 Admit Type: Inpatient Age: 32 Gender: Male Attending MD: Luke Celestin MD Room: [facility] ENDOSCOPY ROOM 05 Note Status: Finalized Procedure: [...] bowel preparation was evaluated using the BBPS ([place] Bowel Preparation Scale) with scores of:Right Colon [...] On: 11/05/2022 9:24 AM Recognized by the [employer] for promoting quality [...] LAB BLOOD ORDERABLES Final Re sult [facility] [address] [facility] Department [place] [address] * Differential, auto (11/05/2022 6:22 AM CDT) Neutrophil abs 2.9 1.7 - 6.5 K/cumm [facility] Imm gran abs 0.0 0.0 - 0.1 K/cumm [facility] Lymphocyte abs 1.7 0.8 - 3.3 K/cumm [facility] Monocyte abs 0.6 0.2 - 0.8 K/cumm [facility] Eosinophil abs 0.1 0.0 - 0.5 K/cumm [facility] Basophil abs 0.0 0.0 - 0.1 K/cumm [facility] Neutrophil pct 54.5 % [facility] Comment: Interpretive Data Percent cell count reference ranges are not reported, since discordance with absolute values may lead to misinterpretation of CBC data. Current Interpretive Data was last revised on 2017. Imm gran pct 0.2 % [facility] Comment: Interpretive Data Percent cell count reference ranges are not reported, since discordance with absolute values may lead to misinterpretation of CBC data. Current Interpretive Data was last revised on 2017. Lymphocyte pct 31.8 % [facility] Comment: Interpretive Data Percent cell count reference ranges are not reported, since discordance with absolute values may lead to misinterpretation of CBC data. Current Interpretive Data was last revised on 2017. Monocyte pct 12.0 % [facility] Comment: Interpretive Data Percent cell count reference ranges are not reported, since discordance with absolute values may lead to misinterpretation of CBC data. Current Interpretive Data was last revised on 2017. Eosinophil pct 1.1 % [facility] Comment: Interpretive Data Percent cell count reference ranges are not reported, since discordance with absolute values may lead to misinterpretation of CBC data. Current Interpretive Data was last revised on 2017. Basophil pct 0.4 % [facility] Comment: Interpretive Data Percent cell count reference ranges are not reported, since discordance with absolute values may lead to misinterpretation of CBC data. Current Interpretive Data was last revised on 2017. Blood 11/05/2022 6:22 AM CDT 11/05/2022 7:08 AM CDT Beatrice Jones MD LAB BLOOD ORDERABLES Final Re sult [facility] [address] [facility] Department [place] [address] * (ABNORMAL) Basic metabolic panel (11/05/2022 6:22 AM CDT) Sodium 138 135 - 145 mmol/L [facility] Potassium, pl 3.7 3.3 - 4.9 mmol/L [facility] Chloride 106 97 - 110 mmol/L [facility] CO2 19(L) 22 - 32 mmol/L [facility] Anion gap 13 2 - 15 mmol/L [facility] BUN 10 8 - 25 mg/dL [facility] Creatinine 0.70(L) 0.80 - 1.30 mg/dL [facility] Glucose 88 70 - 199 mg/dL [facility] Comment: Interpretive Data Fasting glucose [...] 2022. Calcium 8.3(L) 8.5 - 10.3 mg/dL [facility] Blood 11/05/2022 6:22 AM CDT 11/05/2022 7:08 AM CDT us Beatrice Jones MD LAB BLOOD ORDERABLES Final Re sult Performing Organization Address [facility] Co de Phone Number CRUZ [address] [place] [address] * (ABNORMAL) CBC with auto differential (11/05/2022 6:22 AM CDT) Pathologist [facility] [place] WBC 5.4 3.8 - 9.9 K/cumm [facility] Hgb 12.3(L) 13.0 - 17.5 g/dL [facility] Hct 36.3(L) 38.9 - 50.3 % [facility] Plt 190 150 - 400 K/cumm [facility] MPV 10.7 9.1 - 12.3 fL [facility] RBC 3.61(L) 4.30 - 5.80 M/cumm [facility] MCV 100.6(H) 81.3 - 96.4 fL [facility] MCH 34.1(H) 27.1 - 33.3 pg [facility] MCHC 33.9 32.3 - 35.7 g/dL [facility] RDW CV 13.5 11.1 - 14.9 % [facility] RDW SD 50.2(H) 35.7 - 48.1 fL [facility] NRBC abs 0.00 0.00 - 0.01 K/cumm [facility] Blood 11/05/2022 6:22 AM CDT 11/05/2022 7:08 AM CDT Beatrice Jones MD LAB BLOOD ORDERABLES Final Re sult Performing Organization Address [facility]/ZIP Co de Phone Number CRUZ [address] [place] [address] * (ABNORMAL) Erythrocyte sedimentation rate (11/04/2022 3:15 PM CDT) Pathologist [facility] [place] Erythrocyte sedimentation rate 32(H) 1 - 15 mm/hr [facility] Blood 11/04/2022 3:15 PM CDT 11/04/2022 3:35 PM CDT Luke Jones MD LAB BLOOD ORDERABLE S Final Result [address] [address] * (ABNORMAL) CRP (acute phase) (11/04/2022 3:15 PM CDT) Pathologist [facility] [place] CRP 91.2(H) <=10.0 mg/L [facility] Blood 11/04/2022 3:15 PM CDT 11/04/2022 3:35 PM CDT Luke Jones MD LAB BLOOD ORDERABLE S Final Result Performing Organization Address City/[facility] Co de Phone Number [address] [address] * Rotavirus antigen Stool (11/04/2022 12:30 PM CDT) Pathologist [facility] [place] Rotavirus Ag Negative Negative [facility] Comment: Interpretative Data Testing performed at the [facility] using antigen detection with Xpect Rotavirus lateral flow assay. ??This test is cleared by the [place] Food and Drug Administration for fresh stool specimens. ??The performance characteristics have been verified by the [facility]. ??A negative result [...] was last updated 09/17/2019. Testing performed by: [facility], [address] [place] [address] Stool 11/04/2022 12:3 0 PM CDT 11/04/2022 4:52 PM CDT Noreen Moura MD LAB MICROBIOLOGY - GENERAL ORD ERABLES Final Result Performing Organization Address [facility] Co de Phone Number CRUZ [address] [facility] [place] [address] * eGFR (11/04/2022 3:15 AM CDT) [facility] eGFR 91 mL/min/1. 73 m2 [facility] Comment: [...] ORDERABLES Final Re sult Performing Organization Address [facility] Co de Phone Number CRUZ [address] [facility] [place] [address] * (ABNORMAL) Differential, auto (11/04/2022 3:15 AM CDT) Pathologist [facility] [place] Neutrophil abs 8.7(H) 1.7 - 6.5 K/cumm [facility] Imm gran abs 0.1 0.0 - 0.1 K/cumm [facility] Lymphocyte abs 1.4 0.8 - 3.3 K/cumm [facility] Monocyte abs 0.9(H) 0.2 - 0.8 K/cumm [facility] Eosinophil abs 0.0 0.0 - 0.5 K/cumm [facility] Basophil abs 0.0 0.0 - 0.1 K/cumm [facility] Neutrophil pct 78.8 % [facility] Comment: Interpretive Data Percent cell count reference ranges are not reported, since discordance with absolute values may lead to misinterpretation of CBC data. Current Interpretive Data was last revised on 2017. Imm gran pct 0.5 % [facility] Comment: Interpretive Data Percent cell count reference ranges are not reported, since discordance with absolute values may lead to misinterpretation of CBC data. Current Interpretive Data was last revised on 2017. Lymphocyte pct 12.4 % [facility] Comment: Interpretive Data Percent cell count reference ranges are not reported, since discordance with absolute values may lead to misinterpretation of CBC data. Current Interpretive Data was last revised on 2017. Monocyte pct 7.9 % [facility] Comment: Interpretive Data Percent cell count reference ranges are not reported, since discordance with absolute values may lead to misinterpretation of CBC data. Current Interpretive Data was last revised on 2017. Eosinophil pct 0.2 % [facility] Comment: Interpretive Data Percent cell count reference ranges are not reported, since discordance with absolute values may lead to misinterpretation of CBC data. Current Interpretive Data was last revised on 2017. Basophil pct 0.2 % [facility] Comment: Interpretive Data Percent cell count reference ranges are not reported, since discordance with absolute values may lead to misinterpretation of CBC data. Current Interpretive Data was last revised on 2017. Blood 11/04/2022 3:15 AM CDT 11/04/2022 3:58 AM CDT Beatrice Jones MD LAB BLOOD ORDERABLES Final Re sult Performing Organization Address [facility]/ZIP Co de Phone Number CRUZ [address] [place] [address] * (ABNORMAL) Basic metabolic panel (11/04/2022 3:15 AM CDT) [facility] Sodium 139 135 - 145 mmol/L [facility] Potassium, pl 4.1 3.3 - 4.9 mmol/L [facility] Chloride 109 97 - 110 mmol/L [facility] CO2 20(L) 22 - 32 mmol/L [facility] Anion gap 10 2 - 15 mmol/L [facility] BUN 15 8 - 25 mg/dL [facility] Creatinine 1.10 0.80 - 1.30 mg/dL [facility] Glucose 88 70 - 199 mg/dL [facility] Comment: Interpretive Data Fasting glucose [...] 2022. Calcium 7.9(L) 8.5 - 10.3 mg/dL [facility] Blood 11/04/2022 3:15 AM CDT 11/04/2022 3:57 AM CDT Beatrice Jones MD LAB BLOOD ORDERABLES Final Re sult Performing Organization Address City/[facility]/ZIP Co de Phone Number [facility] [place] [address] * (ABNORMAL) CBC with auto differential (11/04/2022 3:15 AM CDT) [facility] WBC 11.1(H) 3.8 - 9.9 K/cumm [facility] Hgb 12.0(L) 13.0 - 17.5 g/dL [facility] Hct 36.0(L) 38.9 - 50.3 % [facility] Plt 163 150 - 400 K/cumm [facility] MPV 10.6 9.1 - 12.3 fL [facility] RBC 3.51(L) 4.30 - 5.80 M/cumm [facility] MCV 102.6(H) 81.3 - 96.4 fL [facility] MCH 34.2(H) 27.1 - 33.3 pg [facility] MCHC 33.3 32.3 - 35.7 g/dL [facility] RDW CV 13.9 11.1 - 14.9 % [facility] RDW SD 52.7(H) 35.7 - 48.1 fL [facility] NRBC abs 0.00 0.00 - 0.01 K/cumm [facility] Blood 11/04/2022 3:15 AM CDT 11/04/2022 3:58 AM CDT Beatrice Jones MD LAB BLOOD ORDERABLES Final Re sult Performing Organization Address City/[facility] Co de Phone Number CRUZ [address] [place] [address] * (ABNORMAL) Calprotectin, fecal (11/03/2022 5:27 PM CDT) Calprotectin, fecal 162(H) <50.0 (Normal) mcg/g [facility] Comment: Interpretation: Abnormal (>120 mcg/g) Test Performed by: [facility] [address] [place] [address] Shape Hand: Christopher Storey M.D. Ph.D.; CLIA# [id number] Stool 11/03/2022 5:27 PM CDT 11/03/2022 5:38 PM CDT Romana Brush NP LAB BODY FLUIDS AND STOOLS ALICJA VALLEJO Final Result Performing Organization Address City/[facility]/ZIP Co de Phone Number CR[facility] [place] [address] * Cryptosporidium and giardia antigen assay Stool (11/03/2022 10:00 AM CDT) Report Final Report: Negative for Giardia lamblia antigen Negative for Cryptosporidium antigen [facility] Comment:Testing performed by : [facility], [address] [place]., [address] Organism NEGATIVE FOR GIARDIA LAMBLIA ANTIGEN [facility] Organism NEGATIVE FOR CRYPTOSPORIDIUM ANTIGEN [facility] Stool 11/03/2022 10:0 0 AM CDT 11/03/2022 1:47 PM CDT Narrative [facility] - 11/06/2022 8:39 AM CDT Received in [employer] and [employer] Interpretive data: Testing performed by the [facility] using an immunoassay that detects Cryptosporidium and Giardia antigens in stool specimens. If comprehensive examination for ova and parasites is required, please request Ova and Parasite Examination . Current interpretative data was revised August 2020. us Noreen Moura MD LAB MICROBIOLOGY - GENERAL ORD ERABLES Final Result [facility] [address] [address] * Ova and parasite examination Stool (11/03/2022 10:00 AM CDT) Report Final Report: No parasites detected. Note: treatment with antibiotics; e.g., Clindamycin, Metronidazole , Tetracycline, and Trimethoprim- sulfa can adversely affect the detection of ova and parasites. Test performed by [facility], [address] [place] [address], [id number]. [facility] Comment:Testing performed by : [facility], [address] [place]., [address] Stool 11/03/2022 10:0 0 AM CDT 11/03/2022 1:46 PM CDT Narrative [facility] - 11/16/2022 3:28 PM CDT Received in [employer] Is the patient immunospressed?->Yes Has the patient had recent travel outside the [place]?->No Nelia SAM LAB MICROBIOLOGY - GENERAL ORDER YOSELYN Final Result Performing Organization Address [facility] de Phone Number [address] [address] * C. difficile testing Stool (11/03/2022 10:00 AM CDT) [facility] C. diff result Negative, DNA Negative , DNA [facility] Comment:NAP (O27) - presumpt talha negative C. diff interp Negative for toxigenic Clostridioides (Clostridium) difficile. ??Analysis performed by detection of gene(s) encoding C. difficile toxin(s). ??The nucleic acid detection assay used is cleared by the [place] Food and Drug administration and its performance characteristics have been verified by the performing laboratory. [facility] Stool 11/03/2022 10:0 0 AM CDT 11/03/2022 10:13 AM CDT Nelia SAM LAB MICROBIOLOGY - GENERAL ORDER YOSELYN Final Result Performing Organization Address [facility] de Phone Number [address] [address] * (ABNORMAL) CRP (acute phase) (11/03/2022 4:06 AM CDT) [facility] CRP 97.0(H) <=10.0 mg/L [facility] Blood 11/03/2022 4:06 AM CDT 11/03/2022 4:32 AM CDT Noreen Moura MD LAB BLOOD ORDERABLES Final Res ult Performing Organization Address [facility] Co de Phone Number [address] [address] * (ABNORMAL) Erythrocyte sedimentation rate (11/03/2022 4:06 AM CDT) Erythrocyte sedimentation rate 32(H) 1 - 15 mm/hr [facility] Blood 11/03/2022 4:06 AM CDT 11/03/2022 4:32 AM CDT Noreen Moura MD LAB BLOOD ORDERABLES Final Res ult [facility] [address] [facility] Department [place] [address] * eGFR (11/03/2022 4:06 AM CDT) eGFR [...] LAB BLOOD ORDERABLES Final Re sult [facility] [address] [facility] Department [place] [address] * (ABNORMAL) Differential, auto (11/03/2022 4:06 AM CDT) Neutrophil abs 14.7(H) 1.7 - 6.5 K/cumm [facility] Imm gran abs 0.1 0.0 - 0.1 K/cumm [facility] Lymphocyte abs 0.5(L) 0.8 - 3.3 K/cumm [facility] Monocyte abs 0.7 0.2 - 0.8 K/cumm [facility] Eosinophil abs 0.0 0.0 - 0.5 K/cumm [facility] Basophil abs 0.0 0.0 - 0.1 K/cumm [facility] Neutrophil pct 91.8 % [facility] Comment: Interpretive Data Percent cell count reference ranges are not reported, since discordance with absolute values may lead to misinterpretation of CBC data. Current Interpretive Data was last revised on 2017. Imm gran pct 0.6 % [facility] Comment: Interpretive Data Percent cell count reference ranges are not reported, since discordance with absolute values may lead to misinterpretation of CBC data. Current Interpretive Data was last revised on 2017. Lymphocyte pct 3.0 % [facility] Comment: Interpretive Data Percent cell count reference ranges are not reported, since discordance with absolute values may lead to misinterpretation of CBC data. Current Interpretive Data was last revised on 2017. Monocyte pct 4.4 % [facility] Comment: Interpretive Data Percent cell count reference ranges are not reported, since discordance with absolute values may lead to misinterpretation of CBC data. Current Interpretive Data was last revised on 2017. Eosinophil pct 0.0 % [facility] Comment: Interpretive Data Percent cell count reference ranges are not reported, since discordance with absolute values may lead to misinterpretation of CBC data. Current Interpretive Data was last revised on 2017. Basophil pct 0.2 % [facility] Comment: Interpretive Data Percent cell count reference ranges are not reported, since discordance with absolute values may lead to misinterpretation of CBC data. Current Interpretive Data was last revised on 2017. Blood 11/03/2022 4:06 AM CDT 11/03/2022 4:32 AM CDT Beatrice Jones MD LAB BLOOD ORDERABLES Final Re sult Performing Organization Address [facility] Co de Phone Number CRUZ [address] [place] [address] * (ABNORMAL) Basic metabolic panel (11/03/2022 4:06 AM CDT) Pathologist [facility] Sodium 134(L) 135 - 145 mmol/L [facility] Potassium, pl 4.0 3.3 - 4.9 mmol/L [facility] Chloride 104 97 - 110 mmol/L [facility] CO2 19(L) 22 - 32 mmol/L [facility] Anion gap 11 2 - 15 mmol/L [facility] BUN 16 8 - 25 mg/dL [facility] Creatinine 1.20 0.80 - 1.30 mg/dL [facility] Glucose 149 70 - 199 mg/dL [facility] Comment: Interpretive Data Fasting glucose [...] 2022. Calcium 8.0(L) 8.5 - 10.3 mg/dL [facility] Blood 11/03/2022 4:06 AM CDT 11/03/2022 4:32 AM CDT Beatrice Jones MD LAB BLOOD ORDERABLES Final Re sult Performing Organization Address [facility] Co de Phone Number [address] [place] [address] * (ABNORMAL) CBC with auto differential (11/03/2022 4:06 AM CDT) WBC 16.0(H) 3.8 - 9.9 K/cumm [facility] Hgb 12.3(L) 13.0 - 17.5 g/dL [facility] Hct 36.3(L) 38.9 - 50.3 % [facility] Plt 167 150 - 400 K/cumm [facility] MPV 10.3 9.1 - 12.3 fL [facility] RBC 3.54(L) 4.30 - 5.80 M/cumm [facility] MCV 102.5(H) 81.3 - 96.4 fL [facility] MCH 34.7(H) 27.1 - 33.3 pg [facility] MCHC 33.9 32.3 - 35.7 g/dL [facility] RDW CV 13.6 11.1 - 14.9 % [facility] RDW SD 51.9(H) 35.7 - 48.1 fL [facility] NRBC abs 0.00 0.00 - 0.01 K/cumm [facility] Blood 11/03/2022 4:06 AM CDT 11/03/2022 4:32 AM CDT Beatrice Jones MD LAB BLOOD ORDERABLES Final Re sult Performing Organization Address [facility] de Phone Number [address] [place] [address] * Lactate (11/03/2022 4:06 AM CDT) Pathologist [facility] Lactate 1.4 0.7 - 2.0 mmol/L [facility] Blood 11/03/2022 4:06 AM CDT 11/03/2022 4:30 AM CDT Beatrice Jones MD LAB BLOOD ORDERABLES Final Re sult Performing Organization Address [facility]/ZIP Co de Phone Number [address] [place] [address] * Stool culture Stool Rectum (11/03/2022 3:30 AM CDT) Direct Specimen Exam Shiga Toxin Testing: Antigen detection assay for Shiga-toxin NEGATIVE for Shiga Toxin 1 and Shiga Toxin 2. [facility] Comment:Testing performed by : [facility], [address] [place]., [address] Report Final Report: No growth of enteric bacterial pathogens [facility] Comment:Testing performed by : [facility], [address] [place]., [address] Stool (Rectum) 11/03/2022 3: 30 AM CDT 11/03/2022 6:39 AM CDT Narrative CRUZ - 11/07/2022 2:31 PM CDT Testing performed by [facility] ([phone]). Routine stool cultures include procedures to detect Salmonella, Shigella, Edwardsiella, Aeromonas, Pleisiomonas, Campylobacter, Yersinia, E. coli O157, and Shiga-like toxins. ?? Vibrio is cultured only upon special request. ??If Vibrio is suspected, please call the laboratory at [phone]. Interpretive data was last updated November 06, 2016. us Nelia SAM LAB MICROBIOLOGY - GENERAL ORDER YOSELYN Final Result [facility] Department [place] [address] * Blood culture Blood Forearm, right (11/02/2022 10:25 PM CDT) Report Final Report: No growth [facility] Comment:Testing performed by : [facility], [address] [place] [address] Blood (Forearm, right) 11/02/2022 10:25 PM CDT [...] organism identification may be performed using the [employer] Gram-Positive Blood Culture Assay. This assay detects microbial DNA in positive blood culture broth via hybridization of target DNA to capture oligonucleotides on a microarray. This assay has been cleared by the [place] Food and Drug Administration and its performance characteristics have been verified by the [facility]. 5. ?For questions about this culture, contact the Microbiology Laboratory at [phone]. Interpretive data was last revised on 2019. us Nelia SAM LAB MICROBIOLOGY - GENERAL ORDER YOSELYN Final Result [facility] [address] [facility] Department [place] [address] * Blood culture Blood Antecubital, right (11/02/2022 10:24 PM CDT) Report Final Report: No growth [facility] Comment:Testing performed by : [facility], [address] [facility] [place] [address] Blood (Antecubital, right) 11/02/2022 10:24 PM CDT [...] organism identification may be performed using the [employer] Gram-Positive Blood Culture Assay. This assay detects microbial DNA in positive blood culture broth via hybridization of target DNA to capture oligonucleotides on a microarray. This assay has been cleared by the [place] Food and Drug Administration and its performance characteristics have been verified by the [facility]. 5. ?For questions about this culture, contact the Microbiology Laboratory at [phone]. Interpretive data was last revised on 2019. Nelia SAM LAB MICROBIOLOGY - GENERAL ORDER YOSELYN Final Result [facility] [address] [facility] Department [place] [address] * Urine culture Urine (11/02/2022 9:12 PM CDT) Report Final Report: Less than 100,000 colonies/mL (clinically insignificant growth based on current clinical standards) [facility] Comment:Testing performed by : [facility], [address] [place]., [address] Organism (CLINICALLY INSIGNIFICANT GROWTH [facility] Urine 11/02/2022 9:12 PM CDT 11/03/2022 1:06 AM CDT Narrative [facility]Z ALEGRE - 11/04/2022 8:41 AM CDT Urine culture reflexed based upon urinalysis results. Testing performed by [facility] ([phone]) Nelia SAM LAB MICROBIOLOGY - GENERAL ORDER YOSELYN Final Result Performing Organization Address [facility] Co de Phone Number CRUZ [facility] [address] [place] [phone] * (ABNORMAL) Urinalysis, microscopic only (11/02/2022 9:12 PM CDT) WBC, ur >50(A) 0 - 5 /HPF [facility] RBC, ur 6-10(A) 0 - 2 /HPF [facility] Epithelial cells, squamous, ur 1-5 0 - 5 /HPF [facility] Bacteria, ur Trace(A) [facility] Mucous, ur Present(A) [facility] Culture Reflex Comment Reflex to urine culture will be performed. [facility] Urine 11/02/2022 9:12 PM CDT 11/02/2022 9:17 PM CDT Nelia SAM LAB URINE ORDERABLES Final Resul t Performing Organization Address [facility] de Phone Number CRUZ [address] [address] * (ABNORMAL) Urinalysis reflex to microscopic and culture Urine (11/02/2022 9:12 PM CDT) Color, ur Reyna Yellow [facility] Clarity, ur Clear Clear [facility] Specific gravity, ur 1.035(H) 1.003 - 1.030 [facility] pH, urine 5.0 [facility] Protein, ur ql 2+(A) Negative [facility] Glucose, ur ql Negative Negative [facility] Ketones, ur Trace Negative [facility] Bilirubin, ur Negative Negative [facility] Blood, ur Negative Negative [facility] Urobilinogen, ur <2.0 <2.0 mg/dL [facility] Nitrite, ur Negative Negative [facility] Leukocyte esterase, ur Negative Negative [facility] UA reflex comment Reflex to microscopic UA will be performed. [facility] Urine 11/02/2022 9:12 PM CDT 11/02/2022 9:17 [...] tendency for uric acid stone formation. Source: [employer]. Last revised 07-12-2017 us Nelia SAM LAB MICROBIOLOGY - GENERAL ORDER YOSELYN Final Result [facility] [address] [facility] Department [place] [address] * CT Abdomen Pelvis W Contrast (11/02/2022 [...] D: ??11/02/2022 7:56 PM T: Report ID: [id number] Reading Location: ??[id number] Procedure Note Lyubov Hudson MD - 11/02/2022 [...] Lyubov Hudson M.D. AT T: Report ID: [id number] Reading Location: [id number] Nelia SAM IM CT PROCEDURES Final Result * Magnesium (11/02/2022 5:18 PM CDT) Magnesium 1.5 1.4 - 2.5 mg/dL [facility] Blood 11/02/2022 5:18 PM CDT 11/02/2022 5:21 PM CDT Nelia SAM LAB BLOOD ORDERABLES Final Resul t Performing Organization Address [facility] de Phone Number [address] [address] * Phosphorus (11/02/2022 5:18 PM CDT) Pathologist [facility] Phosphorus, pl 2.3 2.3 - 4.5 mg/dL [facility] Blood 11/02/2022 5:18 PM CDT 11/02/2022 5:21 PM CDT Nelia SAM LAB BLOOD ORDERABLES Final Resul t Performing Organization Address [facility] de Phone Number [address] [address] * eGFR (11/02/2022 5:18 PM CDT) Pathologist [facility] eGFR 68 mL/min/1. 73 m2 [facility] Comment: Interpretive Data Reference Interval Normal ?>/= [...] 5:18 PM CDT 11/02/2022 5:21 PM CDT NeliaExtended Care Information [employer] CT LAB BLOOD ORDERABLES Final Resul t Performing Organization Address [facility] Co de Phone Number [address] [place] [address] * Lipase (11/02/2022 5:18 PM CDT) Pathologist [facility] Lipase 21 10 - 99 Units/L [facility] Blood 11/02/2022 5:18 PM CDT 11/02/2022 5:21 PM CDT [employer] [facility] LAB BLOOD ORDERABLES Final Resul t Performing Organization Address [facility] de Phone Number [address] [address] * (ABNORMAL) Comprehensive metabolic panel (11/02/2022 5:18 PM CDT) Sodium 133(L) 135 - 145 mmol/L [facility] Potassium, pl 4.6 3.3 - 4.9 mmol/L [facility] Chloride 101 97 - 110 mmol/L [facility] CO2 19(L) 22 - 32 mmol/L [facility] Anion gap 13 2 - 15 mmol/L [facility] BUN 20 8 - 25 mg/dL [facility] Creatinine 1.40(H) 0.80 - 1.30 mg/dL [facility] Glucose 117 70 - 199 mg/dL [facility] Comment: Interpretive Data Fasting glucose [...] 2022. Calcium 8.0(L) 8.5 - 10.3 mg/dL [facility] Bilirubin, total 0.5 0.1 - 1.2 mg/dL [facility] Protein, pl 7.5 6.5 - 8.5 g/dL [facility] Albumin 4.2 3.5 - 5.0 g/dL [facility] Alk phos 74 40 - 130 Units/L [facility] ALT 27 7 - 55 Units/L [facility] AST 31 10 - 50 Units/L [facility] Comment:MODERATE HEMOLYZED: Hemolysis interferes with the above test. Blood 11/02/2022 5:18 PM CDT 11/02/2022 5:21 PM CDT us Nelia SAM LAB BLOOD ORDERABLES Final Resul t [facility] [address] [facility] Department [place] [address] * (ABNORMAL) Differential, auto (11/02/2022 4:49 PM CDT) Neutrophil abs 9.2(H) 1.7 - 6.5 K/cumm [facility] Imm gran abs 0.0 0.0 - 0.1 K/cumm [facility] Lymphocyte abs 0.6(L) 0.8 - 3.3 K/cumm [facility] Monocyte abs 0.8 0.2 - 0.8 K/cumm [facility] Eosinophil abs 0.2 0.0 - 0.5 K/cumm [facility] Basophil abs 0.0 0.0 - 0.1 K/cumm [facility] Neutrophil pct 84.7 % [facility] Comment: Interpretive Data Percent cell count reference ranges are not reported, since discordance with absolute values may lead to misinterpretation of CBC data. Current Interpretive Data was last revised on 2017. Imm gran pct 0.3 % [facility] Comment: Interpretive Data Percent cell [...] revised on 2017. Monocyte pct 7.1 % [facility] Comment: Interpretive Data Percent cell count reference ranges are not reported, since discordance with absolute values may lead to misinterpretation of CBC data. Current Interpretive Data was last revised on 2017. Eosinophil pct 1.7 % [facility] Comment: Interpretive Data Percent cell count reference ranges are not reported, since discordance with absolute values may lead to misinterpretation of CBC data. Current Interpretive Data was last revised on 2017. Basophil pct 0.4 % [facility] Comment: Interpretive Data Percent cell count reference ranges are not reported, since discordance with absolute values may lead to misinterpretation of CBC data. Current Interpretive Data was last revised on 2017. Blood 11/02/2022 4:49 PM CDT 11/02/2022 4:[address] [employer] [address] [place] LAB BLOOD ORDERABLES Final Resul t Performing Organization Address City/[facility] Co de Phone Number [facility] [address] [facility] Department [place] [address] * Sepsis Lactate w/ Reflex (11/02/2022 4:49 PM CDT) Sepsis Lactate 1.5 0.7 - 2.0 mmol/L [facility] Blood 11/02/2022 4:49 PM CDT 11/02/2022 4:[address] [place] LAB BLOOD ORDERABLES Final Resul t Performing Organization Address City/[facility]/ZIP Co de Phone Number [facility] [address] [address] * (ABNORMAL) CBC with auto differential (11/02/2022 4:49 PM CDT) WBC 10.8(H) 3.8 - 9.9 K/cumm [facility] Hgb 14.7 13.0 - 17.5 g/dL [facility] Hct 42.7 38.9 - 50.3 % [facility] Plt 199 150 - 400 K/cumm [facility] MPV 10.1 9.1 - 12.3 fL [facility] RBC 4.22(L) 4.30 - 5.80 M/cumm [facility] MCV 101.2(H) 81.3 - 96.4 fL [facility] MCH 34.8(H) 27.1 - 33.3 pg [facility] MCHC 34.4 32.3 - 35.7 g/dL [facility] RDW CV 13.7 11.1 - 14.9 % [facility] RDW SD 50.8(H) 35.7 - 48.1 fL [facility] NRBC abs 0.00 0.00 - 0.01 K/cumm [facility] Blood 11/02/2022 4:49 PM CDT 11/02/2022 4:54 PM CDT us Nelia SAM LAB BLOOD ORDERABLES Final Resul t Performing Organization Address [facility] de Phone Number [facility] [address] [address] documented in this encounter Visit Diagnoses Diagnosis [...] Every 8 hours scheduled, First dose on [facility] 11/04/22 at 1530, Pre-Op/Floor (GI), Flush volume [...] Transfer Provider - Reason: Patient not available)1048 ([facility] Unhold - Provider: Automatic Transfer Provider) allopurinoL (ZYLOPRIM) tablet 100 mg 100 mg, oral, Daily, First dose on Sun11/04/22 at 1030 0903 (Given - Provider: Anne Phan RN)922 ([facility] Hold - Provider: Automatic Transfer Provider - Reason: Patient not available)1048 ([facility] Unhold - Provider: Automatic Transfer Provider) 09 [...] Sun11/03/22 at 2100, Indications: VTE Prophylaxis 922 ([facility] Hold - Provider: Automatic Transfer Provider - Reason: Patient not available)1048 ([facility] Unhold - Provider: Automatic Transfer Provider)2034 (Given - Provider: Olena Pelayo, JOSH) 2114 (Given - Provider: Bessie Lezama RN) folic acid (FOLVITE) tablet 1 mg 1 mg, oral, Daily, First dose on 11/04/22 at 1030 0903 (Given - Provider: Anne Phan RN)09 ([facility] Hold - Provider: Automatic Transfer Provider - Reason: Patient not available)104 ([facility] Unhold - Provider: Automatic Transfer Provider) 09 (Given - Provider: Henry Garrett RN) 0858 (Given - Provider: Henry Garrett RN) mercaptopurine (PURINETHOL) tablet 50 mg 50 mg, oral, Daily, First dose on 11/04/22 at 1400, Indications: Crohn's Disease 09 (Given - Provider: Anne Phan RN)0923 ([facility] Hold - Provider: Automatic Transfer Provider - Reason: Patient not available)1048 ([facility] Unhold - Provider: Automatic Transfer Provider) 0923 [...] (New Bag - Provider: Olena Pelayo RN)0923 ([facility] Hold - Provider: Automatic Transfer Provider - Reason: Patient not available)1048 ([facility] Unhold - Provider: Automatic Transfer Provider)1359 (New [...] primary IV, not intended for KVO 922 ([facility] Hold - Provider: Automatic Transfer Provider - Reason: Patient not available)1048 ([facility] Unhold - Provider: Automatic Transfer Provider) colestipoL [...] Nausea/vomiting, Starting on Sun11/03/22 at 0156 0923 ([facility] Hold - Provider: Automatic Transfer Provider - Reason: Patient not available)1048 ([facility] Unhold - Provider: Automatic Transfer Provider) ondansetron [...] 11/04/2022 documented in this encounter Care Teams Medical Superintendent Relationship Specialty Start Date End Date Lanre Parekh DO PCP - General Family Medicine 01/23/19 Eliana Quevedo MD [address] [place] [address] Referring Physician Gastroenterology 11/07/22 documented as of this encounter
--- OUTSIDE RECORDS SUMMARY | 2024-07-09 09:49 | XMS_ITS | Encounter Summary ---
Author Organization [facility] Address [address] [place] [id number] Care Team Providers Care [employer] Name Role Phone Lanre Parekh Primary Care Provide r Reason for Visit * Auth/Cert (Routine) Specialty Diagnoses / Procedures Referred By Contac t Referred To Contact Diagnoses Hypocalcemia Abdominal pain HERMELINDO (acute kidney injury) (HCC) History of Crohn's disease Diarrhea, unspecified type Procedures na Referral ID Status Reason Start Date Expiration Date Visits Re quested Visits Authorized [id number] 1 1 Encounter Details Date Type Department Care Team (Late st Contact Info) Description 11/05/2022 9:25 AM CDT Anesthesia Event [facility] GI Lab [address] [place] [id number] Ed Stephens MD [address] [facility] [address] [id number] Anesthesia Record Procedure Summary Procedure Name Responsible [...] How often do you attend chur or amish services? 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 Hypertension Father Family history of hypertension - (Added by [employer] Conv) ??? Ulcerative colitis Mother's Sister Vitals: [...] mL/hr documented in this encounter Care Teams [employer] Relationship Specialty Start Date End Date Lanre Parekh DO PCP - General Family Medicine 01/23/19 documented as of this encounter
--- OUTSIDE RECORDS SUMMARY | 2024-07-09 09:49 | XMS_ITS | Encounter Summary ---
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 Name Role Phone Lanre Parekh Primary [...] Expiration Date Visits Re quested Visits Authorized [id number] 1 1 Encounter Details Date Type Department Care Team (Late st Contact Info) Description 11/05/2022 9:00 AM CDT - 11/05/2022 9:20 AM CDT Surgery [facility] GI Lab [address] [place] [address] Luke Jones MD [address] [place] [id number] COLON BIOPSY Surgery Details Date/Time Status Location [...] on file 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 LOS - LOS: 5 days DETAILS OF HOSPITAL STAY Hospital Problems/Diagnoses Principal Problem: Abdominal pain Active Problems: Crohn's disease of both small and large intestine (HCC) Diarrhea due to malabsorption Enteritis Acute kidney injury (CMS/HCC) (HCC) Hyponatremia Corticosteroid-induced neutrophilia Reason for Hospitalization: Abdominal Pain Hospital Course: Patient with history of Crohn's disease complicated by Ileocolonic stricture status post ileocecectomy in 2018 presenting to [facility] with complaints of abdominal pain and non-bloody [...] abdomen which could reflect early developingacute enteritis or reflect diarrhea state. Prior ileocecectomy [...] evidence of acute colitis at this time. Nocolonic or small bowel perforation. No evidence of bowel fibrostenosis or bowel fistulization. THISIS AN ELECTRONICALLY VERIFIED FINAL REPORT 11/02/2022 7:56 PM - Electronically signed by Lyubov Hudson M.D. AT T: Report ID: [id number] Reading Location: [id number] Recent Labs: Recent Labs Lab Units 11/07/2242411/06/2283711/05/22 0622 WBC K/cumm 6.7 5.2 5.4 HEMOGLOBIN g/dL 13.4 13.8 12.3* HEMATOCRIT % 38.8* 40.5 36.3* PLATELETS K/cumm 232 220 190 Recent Labs Lab Units 11/07/2242411/06/22 0811/05/22 0622 WBC K/cumm 6.7 5.2 5.4 HEMOGLOBIN g/dL 13.4 13.8 12.3* HEMATOCRIT % 38.8* 40.5 36.3* PLATELETS K/cumm 232 220 190 NEUTROS PCT % 41.9 50.1 54.5 LYMPHS PCT % 50.1 42.3 31.8 MONOS PCT % 6.0 6.0 12.0 EOS PCT % 1.3 0.8 1.1 Recent Labs Lab Units 11/07/2242411/06/2283711/05/22 0611/03/22 0406 11/02/22 1718 SODIUM mmol/L 139 139 138 < > 133* POTASSIUM PLASMA mmol/L 3.6 3.6 3.7 < > 4.6 CHLORIDE mmol/L 103 104 106 < > 101 CO2 mmol/L 25 24 19* < > 19* BUN SERUM mg/dL 10 8 10 < > 20 CREATININE mg/dL 0.90 0.80 0.70* < > 1.40* KMG-NLR-TBPSWVS mL/min/1.73 m2 116 120 125 < > [...] Cell Culture-based MDCK, Preservative Free, Antibiotic Free, Ibhawbvsjyzps41/07/2021, 04/20/2022 Pneumococcal Conjugate PCV 13 01/25/2017 Pneumococcal Polysaccharide PPV23 05/17/2017, 10/26/2022 Tdap 02/09/2014 Evaristo Ashraf MD documented in this encounter Discharge Instructions * Attachments The following attachments cannot be sent through Care Everywhere. * Acute Abdominal Pain (Discharge Care) (Citizen Of [place]) * Nutrition Tips for Relief of Diarrhea (Discharge Care) (Citizen Of [place]) documented in this encounter Medications at Time [...] MP, allopurinol. He follows with GI at [facility]. he presented to the emergency department with [...] concerns. Luke Jones MD Voice recognition software Snapverse Direct was used dictate and transcribe this document. Social Worker variances may occur. Despite proofreading, typographical errors [...] 11/02/2022 7:56 PM - Electronically signed by Andramos Hudson M.D. AT T: Report ID: [id number] Reading Location: [id number] Current Facility-Administered Medications Medication Dose Route Frequency [...] Continue IV antibiotic for enteritis Moderate complexity: [facility] Voice recognition software [employer] Fluency Direct was used dictate and transcribe this document. Social Worker variances may occur. Despite proofreading, typographical errors may occur. For patients or family members viewing this note through [employer]appCloudt: This note was written as a communication [...] Lyubov Hudson M.D. AT T: Report ID: [id number] Reading Location: [id number] Current Facility-Administered Medications Medication Dose Route Frequency [...] (LOVENOX) syringe 40 mg 40 mg subcutaneous Daily-[facility] Beatrice Jones MD 40mg at 11/04/222034 [...] mL/hr intravenous Continuous Luke Jones MD A/P: [facility] Principal Problem: Abdominal pain Active Problems: Diarrhea [...] Continue IV antibiotic for enteritis Moderate complexity: [employer] Voice recognition software Snapverse Direct was used dictate and transcribe this document. Social Worker variances may occur. Despite proofreading, typographical errors may occur. For patients or family members viewing this note through [employer]: This note was written as a communication [...] MP, allopurinol. He follows with GI at [facility]. he presented to the emergency department with [...] symptoms Luke Jones MD Voice recognition software Snapverse Direct was used dictate and transcribe this document. Social Worker variances may occur. Despite proofreading, typographical errors may occur. * oNreen Moura MD - 11/04/2022 9:51 AM CDT [...] Lyubov Hudson M.D. AT T: Report ID: [id number] Reading Location: [id number] Current Facility-Administered Medications Medication Dose Route Frequency [...] injection 4 mg 4 mg intravenous Q6H PRBeatrice Hatch MD piperacillin-tazobactam (ZOSYN) 3.375 gram/115 mL in [...] Continue IV antibiotic for enteritis Moderate complexity: [facility] Voice recognition software [employer] Fluency Direct was used dictate and transcribe this document. Social Worker variances may occur. Despite proofreading, typographical errors may occur. For patients or family members viewing this note through [employer]: This note was written as a communication [...] 1101 Patient Spiritual Assessment Spirituality Assessed Yes Buddhist Affiliation Protestant Active in [facility] Yes Place of Muslim [facility] Spiritual Needs Prayer Clinical Encounter Type [...] Lyubov Hudson M.D. AT T: Report ID: [id number] Reading Location: [id number] Current Facility-Administered Medications Medication Dose Route Frequency Provider Last Rate Last Admin acetaminophen (TYLENOL) tablet 650 mg 650 mg oral Q8H PRN Beatrice Jones MD 650 mg at 11/02/22 2698 Carrier Fluids for Secondary Infusion - 0.9% [...] pending Continue current IV antibiotics. Moderate complexity: [facility] Voice recognition software [employer] Fluency Direct was used dictate and transcribe this document. Social Worker variances may occur. Despite proofreading, typographical errors may occur. For patients or family members viewing this note through [employer]appCloudt: This note was written as a communication [...] >16 min ( 21 minutes ) - [id number] PCP: Lanre Parekh DO Subjective abdominal pain [...] - 11/05/2022 9:24 AM CDTAssociated Order(s): COLONOSCOPY [facility] ENDOSCOPY Patient Name: Nic Escalera Procedure Date: 11/05/2022 9:24 AM Date of : 1990 Admit Type: Inpatient Age: 32 Gender: Male Attending MD: Luke Jones MD Room: [facility] ENDOSCOPY ROOM 05 Note Status: Finalized Procedure: [...] bowel preparation was evaluated using the BBPS (Engelhard Bowel Preparation Scale) with scores of: Right [...] On: 11/05/2022 9:24 AM Recognized by the [place] [employer] for promoting quality [...] days. Follows up with Dr. Quevedo at [facility]. contrast CT showed mucosal hyperemia of several [...] an empty stomach daily PRN 01/17/22 Simona Carrillo, LISSETTE turmeric, bulk, 100 % powder Take 1,500 [...] with biopsies for CMV. Romana Brush, MSN, TAX SENIOR ASSOCIATE, ELECTROMECHANICAL ASSEMBLY TECHNICIAN-BC Family Nurse Practitioner [facility] Voice recognition software [employer] Fluency Direct was used dictate and transcribe this document. Social Worker variances may occur. Despite proofreading, typographical errors [...] tendency for uric acid stone formation. Source: Elizabeth Finco.Last revised 07-12-2017 CBC WITH AUTO DIFFERENTIAL - [...] W CONTRAST REASON FOR STUDY: Abdominal pain, acute,nonlocalized Abdominal pain, acute, nonlocalized, back pain , Crohn's disease TECHNIQUE: CT scan ofthe abdomen and pelvis performed with intravenous and without oral contrast using helical scanning technique with dynamic intravenous contrast injection. Reconstructed coronal and sagittal MPR imagesreviewed. All images stored on PACS. Automated exposure [...] of the mesenteric fat in the mid abdomenwith associated prominent but nonenlarged mesenteric lymph nodes [...] Lyubov Hudson M.D. AT T: Report ID: [id number] Reading Location: [place] [address] ED COURSE/MEDICAL DECISION MAKING Differential diagnosis included but not limited to Crohn's flare, colonic fistula, abdominal abscess, gastroenteritis, umbilical hernia, other Patient's medical records were reviewed. I discussed management or test interpretation with the following outside physician, caregiver, care home staff: Dr. Robert MORA ED Course as of 11/02/22 7744 Time: 11/02 2106 Comment: Call to the [...] 11/02 2213 Comment: Spoke with Dr. Jones hospitalist. Accepts patient for admission at this time. Will order blood cultures, start Zosyn. Accepts patient for admission to the hospital. By: Nelia Quezada PA Time: 11/02 2214 Comment: Of note per telephone encounter with patient's GI doctor Dr. Quevedo today of [facility] recommend getting C diff culture and O and P. By: Nelia Quezada PA Procedures FINAL IMPRESSION Abdominal pain Diarrhea, unspecified type History of Crohn's disease Hypocalcemia HERMELINDO (acute kidney injury) ([facility]) ([facility]) DISPOSITION: Admit This examination was transcribed using the Tiansheng voice recognition system without human textile examiner. In an effort to expedite patient care, this report has not been adjusted for typographical, grammatical, and syntax by a trained medical assistant float. Nelia Quezada PA 11/02/222215 Cosigned by Franck [...] of Care - Henry Garrett RN - 11/06/2022 6:47 [...] Lorenzo RN - 11/03/2022 12:35 PM CDT ZACK Initial Assessment Interview Note Information Obtained From: [...] No Has discharge transport been arranged?: Yes (11/02/221) Health Insurance Coverage: [facility] Prescription Coverage[facility] Pharmacy: [id number] [place], [place] - [address] [facility] [facility] [address] [facility] [id number] [place], [place] [address] [facility] [address] [facility] [address] [facility] [place] [address] [facility] [address] [facility] [address] [facility]/pharmacy #[id number] - [place], [place] - [address] [facility] [address] [facility] [address] Primary Care Provider: Lanre Parekh DO Prior to Admission: Primary Caregiver: Self Who does the patient or legal guardian want to receive education instruction and discharge plans for after care assistance?: Name Caregiver Name: Quinton Escalera Relationship to patient: Caregiver Contact Information: [phone] Caregiver Address: [address] Support System: Spouse/Significant Other, Children Home Care [...] a week How often do you attend zoroastrianism or pentecostal services?: 1 to 4 times per year Do you belong to any clubs or organizations such as zoroastrianism groups, unions, fraternal [...] Results * eGFR (11/07/2022 4:25 AM CDT) [facility] eGFR 116 mL/min/1. 73 m2 [facility] Comment: Interpretive [...] MD LAB BLOOD ORDERABLES Final Re sult [facility] [address] [facility] Department [place] [address] * (ABNORMAL) Differential, auto (11/07/2022 4:25 AM CDT) Neutrophil abs 2.8 1.7 - 6.5 K/cumm [facility] Imm gran abs 0.0 0.0 - 0.1 K/cumm [facility] Lymphocyte abs 3.4(H) 0.8 - 3.3 K/cumm [facility] Monocyte abs 0.4 0.2 - 0.8 K/cumm [facility] Eosinophil abs 0.1 0.0 - 0.5 K/cumm [facility] Basophil abs 0.0 0.0 - 0.1 K/cumm [facility] Neutrophil pct 41.9 % [facility] Comment: Consistent with previous result Interpretive Data Percent cell count reference ranges are not reported, since discordance with absolute values may lead to misinterpretation of CBC data. Current Interpretive Data was last revised on 2017. Imm gran pct 0.3 % [facility] Comment: Interpretive Data Percent cell count reference ranges are not reported, since discordance with absolute values may lead to misinterpretation of CBC data. Current Interpretive Data was last revised on 2017. Lymphocyte pct 50.1 % [facility] Comment: Interpretive Data Percent cell count reference ranges are not reported, since discordance with absolute values may lead to misinterpretation of CBC data. Current Interpretive Data was last revised on 2017. Monocyte pct 6.0 % [facility] Comment: Interpretive Data Percent cell count reference ranges are not reported, since discordance with absolute values may lead to misinterpretation of CBC data. Current Interpretive Data was last revised on 2017. Eosinophil pct 1.3 % [facility] Comment: Interpretive Data Percent cell count reference ranges are not reported, since discordance with absolute values may lead to misinterpretation of CBC data. Current Interpretive Data was last revised on 2017. Basophil pct 0.4 % [facility] Comment: Interpretive Data Percent cell count reference ranges are not reported, since discordance with absolute values may lead to misinterpretation of CBC data. Current Interpretive Data was last revised on 2017. Blood 11/07/2022 4:25 AM CDT 11/07/2022 4:49 AM CDT us Beatrice Jones MD LAB BLOOD ORDERABLES Final Re sult [facility] [address] [facility] Department [place] [address] * Basic metabolic panel (11/07/2022 4:25 AM CDT) Sodium 139 135 - 145 mmol/L [facility] Potassium, pl 3.6 3.3 - 4.9 mmol/L [facility] Chloride 103 97 - 110 mmol/L [facility] CO2 25 22 - 32 mmol/L [facility] Anion gap 11 2 - 15 mmol/L [facility] BUN 10 8 - 25 mg/dL [facility] Creatinine 0.90 0.80 - 1.30 mg/dL [facility] Glucose 98 70 - 199 mg/dL [facility] Comment: Interpretive Data Fasting glucose >/= [...] 2022. Calcium 9.0 8.5 - 10.3 mg/dL [facility] Blood 11/07/2022 4:25 AM CDT 11/07/2022 4:49 AM CDT us Beatrice Jones MD LAB BLOOD ORDERABLES Final Re sult [facility] [address] [facility] Department [place] [address] * (ABNORMAL) CBC with auto differential (11/07/2022 4:25 AM CDT) WBC 6.7 3.8 - 9.9 K/cumm [facility] Hgb 13.4 13.0 - 17.5 g/dL [facility] Hct 38.8(L) 38.9 - 50.3 % [facility] Plt 232 150 - 400 K/cumm [facility] MPV 10.5 9.1 - 12.3 fL [facility] RBC 3.99(L) 4.30 - 5.80 M/cumm [facility] MCV 97.2(H) 81.3 - 96.4 fL [facility] MCH 33.6(H) 27.1 - 33.3 pg [facility] MCHC 34.5 32.3 - 35.7 g/dL [facility] RDW CV 12.9 11.1 - 14.9 % [facility] RDW SD 46.5 35.7 - 48.1 fL [facility] NRBC abs 0.00 0.00 - 0.01 K/cumm [facility] Blood 11/07/2022 4:25 AM CDT 11/07/2022 4:49 AM CDT Beatrice Jones MD LAB BLOOD ORDERABLES Final Re sult Performing Organization Address City/[facility] Co de Phone Number [address] [place] [address] * (ABNORMAL) CRP (acute phase) (11/07/2022 4:25 AM CDT) [facility] CRP 13.4(H) <=10.0 mg/L [facility] Blood 11/07/2022 4:25 AM CDT 11/07/2022 4:49 AM CDT Noreen Moura MD LAB BLOOD ORDERABLES Final Res ult Performing Organization Address [facility] Co de Phone Number [address] [place] [address] * (ABNORMAL) Erythrocyte sedimentation rate (11/07/2022 4:25 AM CDT) [facility] Erythrocyte sedimentation rate 39(H) 1 - 15 mm/hr [facility] Blood 11/07/2022 4:25 AM CDT 11/07/2022 4:49 AM CDT us Noreen Moura MD LAB BLOOD ORDERABLES Final Res ult Performing Organization Address [facility] Co de Phone Number [address] [place] [address] * eGFR (11/06/2022 8:38 AM CDT) eGFR 120 mL/min/1. 73 m2 [facility] Comment: [...] LAB BLOOD ORDERABLES Final Re sult [facility] [address] [facility] Department [place] [address] * Differential, auto (11/06/2022 8:38 AM CDT) Pathologist [facility] Neutrophil abs 2.6 1.7 - 6.5 K/cumm [facility] Imm gran abs 0.0 0.0 - 0.1 K/cumm [facility] Lymphocyte abs 2.2 0.8 - 3.3 K/cumm [facility] Monocyte abs 0.3 0.2 - 0.8 K/cumm [facility] Eosinophil abs 0.0 0.0 - 0.5 K/cumm [facility] Basophil abs 0.0 0.0 - 0.1 K/cumm [facility] Neutrophil pct 50.1 % [facility] Comment: Interpretive Data Percent cell count reference ranges are not reported, since discordance with absolute values may lead to misinterpretation of CBC data. Current Interpretive Data was last revised on 2017. Imm gran pct 0.4 % [facility] Comment: Interpretive Data Percent cell count reference ranges are not reported, since discordance with absolute values may lead to misinterpretation of CBC data. Current Interpretive Data was last revised on 2017. Lymphocyte pct 42.3 % [facility] Comment: Interpretive Data Percent cell count reference ranges are not reported, since discordance with absolute values may lead to misinterpretation of CBC data. Current Interpretive Data was last revised on 2017. Monocyte pct 6.0 % [facility] Comment: Interpretive Data Percent cell count reference ranges are not reported, since discordance with absolute values may lead to misinterpretation of CBC data. Current Interpretive Data was last revised on 2017. Eosinophil pct 0.8 % [facility] Comment: Interpretive Data Percent cell count reference ranges are not reported, since discordance with absolute values may lead to misinterpretation of CBC data. Current Interpretive Data was last revised on 2017. Basophil pct 0.4 % [facility] Comment: Interpretive Data Percent cell count reference ranges are not reported, since discordance with absolute values may lead to misinterpretation of CBC data. Current Interpretive Data was last revised on 2017. Blood 11/06/2022 8:38 AM CDT 11/06/2022 8:53 AM CDT us Beatrice Jones MD LAB BLOOD ORDERABLES Final Re sult [facility] [address] [facility] Department [place] [address] * Basic metabolic panel (11/06/2022 8:38 AM CDT) Sodium 139 135 - 145 mmol/L [facility] Potassium, pl 3.6 3.3 - 4.9 mmol/L [facility] Chloride 104 97 - 110 mmol/L [facility] CO2 24 22 - 32 mmol/L [facility] Anion gap 11 2 - 15 mmol/L [facility] BUN 8 8 - 25 mg/dL [facility] Creatinine 0.80 0.80 - 1.30 mg/dL [facility] Glucose 90 70 - 199 mg/dL [facility] Comment: Interpretive Data Fasting glucose >/= [...] 2022. Calcium 8.9 8.5 - 10.3 mg/dL [facility] Blood 11/06/2022 8:38 AM CDT 11/06/2022 8:53 AM CDT us Beatrice Jones MD LAB BLOOD ORDERABLES Final Re sult [facility] [address] [facility] Department [place] [address] * (ABNORMAL) CBC with auto differential (11/06/2022 8:38 AM CDT) [facility] WBC 5.2 3.8 - 9.9 K/cumm [facility] Hgb 13.8 13.0 - 17.5 g/dL [facility] Hct 40.5 38.9 - 50.3 % [facility] Plt 220 150 - 400 K/cumm [facility] MPV 10.4 9.1 - 12.3 fL [facility] RBC 4.06(L) 4.30 - 5.80 M/cumm [facility] MCV 99.8(H) 81.3 - 96.4 fL [facility] MCH 34.0(H) 27.1 - 33.3 pg [facility] MCHC 34.1 32.3 - 35.7 g/dL [facility] RDW CV 13.2 11.1 - 14.9 % [facility] RDW SD 48.7(H) 35.7 - 48.1 fL [facility] NRBC abs 0.00 0.00 - 0.01 K/cumm [facility] Blood 11/06/2022 8:38 AM CDT 11/06/2022 8:53 AM CDT us Beatrice Jones MD LAB BLOOD ORDERABLES Final Re sult [facility] [address] Department [place] [address] * Surgical pathology (11/05/2022 9:44 AM CDT) Tissue (Colon, Biopsy) 11/05/2022 9:44 AM CDT Tissue (Colon, Biopsy) 11/05/2022 9:45 AM CDT Tissue (Colon, Biopsy) 11/05/2022 9:46 AM CDT Tissue (Colon, Biopsy) 11/05/2022 9:47 AM CDT Tissue (Colon, Biopsy) 11/05/2022 9:47 AM CDT Tissue (Colon, Biopsy) 11/05/2022 9:48 AM CDT Narrative PATHOLOGY [facility] - 11/07/2022 12:52 PM CDT [facility] Department of Pathology [address] [place] [address] ?? Note to Patients: ??This report may [...] the details. Final Report Patient Name: NIC ESCALERAMichelle : ??1990 (Age: 32) Gender: ??M Address: ??[address] [place] [address] [place], [place] ??[address] [facility] #: [id number] Service: Medical Location: Patient Type: B INPATIENT [...] submitted. ?? Labeled F1. Jar 0. ?? [facility]/11/06/2022 13:07 CECY Ryan Microscopic slide review and interpretation for this case was performed at [facility], Department of Surgical Pathology, [address] [facility] [place], [place] [id number], ??[facility], [place] ??[address] ?? CLIA # [id number] us Luke Jones MD LAB PATHOLOGY ORDER YOSELYN Final Result PATHOLOGY [facility] * COLONOSCOPY (11/05/2022 9:24 AM CDT) Anatomical Region Laterality Modality Other Narrative Procedure Note Luke Jones MD - 11/05/2022 9:24 AM CDT [facility] GI ENDOSCOPY Patient Name: Nic Escalera Procedure Date: 11/05/2022 9:24 AM Date of : 1990 Admit Type: Inpatient Age: 32 Gender: Male Attending MD: Luke Celestin MD Room: [facility] ENDOSCOPY ROOM 05 Note Status: Finalized Procedure: [...] bowel preparation was evaluated using the BBPS (Engelhard Bowel Preparation Scale) with scores of:Right Colon [...] On: 11/05/2022 9:24 AM Recognized by the [place] [employer] for promoting quality in endoscopy Luke Jones MD ENDOSCOPY PROCEDURE S Final [...] LAB BLOOD ORDERABLES Final Re sult [facility] [address] [facility] Department of Laboratories [place], [place] [id number] * Differential, auto (11/05/2022 6:22 AM CDT) Pathologist [facility] Neutrophil abs 2.9 1.7 - 6.5 K/cumm [facility] Imm gran abs 0.0 0.0 - 0.1 K/cumm [facility] Lymphocyte abs 1.7 0.8 - 3.3 K/cumm [facility] Monocyte abs 0.6 0.2 - 0.8 K/cumm [facility] Eosinophil abs 0.1 0.0 - 0.5 K/cumm [facility] Basophil abs 0.0 0.0 - 0.1 K/cumm [facility] Neutrophil pct 54.5 % [facility] Comment: Interpretive Data Percent cell count reference ranges are not reported, since discordance with absolute values may lead to misinterpretation of CBC data. Current Interpretive Data was last revised on 2017. Imm gran pct 0.2 % [facility] Comment: Interpretive Data Percent cell count reference ranges are not reported, since discordance with absolute values may lead to misinterpretation of CBC data. Current Interpretive Data was last revised on 2017. Lymphocyte pct 31.8 % [facility] Comment: Interpretive Data Percent cell count reference ranges are not reported, since discordance with absolute values may lead to misinterpretation of CBC data. Current Interpretive Data was last revised on 2017. Monocyte pct 12.0 % [facility] Comment: Interpretive Data Percent cell count reference ranges are not reported, since discordance with absolute values may lead to misinterpretation of CBC data. Current Interpretive Data was last revised on 2017. Eosinophil pct 1.1 % [facility] Comment: Interpretive Data Percent cell count reference ranges are not reported, since discordance with absolute values may lead to misinterpretation of CBC data. Current Interpretive Data was last revised on 2017. Basophil pct 0.4 % [facility] Comment: Interpretive Data Percent cell count reference ranges are not reported, since discordance with absolute values may lead to misinterpretation of CBC data. Current Interpretive Data was last revised on 2017. Blood 11/05/2022 6:22 AM CDT 11/05/2022 7:08 AM CDT Beatrice Jones MD LAB BLOOD ORDERABLES Final Re sult Performing Organization Address [facility]/ZIP Co de Phone Number [facility] [address] [place] [address] * (ABNORMAL) Basic metabolic panel (11/05/2022 6:22 AM CDT) [facility] Sodium 138 135 - 145 mmol/L [facility] Potassium, pl 3.7 3.3 - 4.9 mmol/L [facility] Chloride 106 97 - 110 mmol/L [facility] CO2 19(L) 22 - 32 mmol/L [facility] Anion gap 13 2 - 15 mmol/L [facility] BUN 10 8 - 25 mg/dL [facility] Creatinine 0.70(L) 0.80 - 1.30 mg/dL [facility] Glucose 88 70 - 199 mg/dL [facility] Comment: Interpretive Data Fasting glucose >/= [...] 2022. Calcium 8.3(L) 8.5 - 10.3 mg/dL [facility] Blood 11/05/2022 6:22 AM CDT 11/05/2022 7:08 AM CDT Beatrice Jones MD LAB BLOOD ORDERABLES Final Re sult Performing Organization Address [facility]/ZIP Co de Phone Number [facility] [place] [address] * (ABNORMAL) CBC with auto differential (11/05/2022 6:22 AM CDT) [facility] WBC 5.4 3.8 - 9.9 K/cumm [facility] Hgb 12.3(L) 13.0 - 17.5 g/dL [facility] Hct 36.3(L) 38.9 - 50.3 % [facility] Plt 190 150 - 400 K/cumm [facility] MPV 10.7 9.1 - 12.3 fL [facility] RBC 3.61(L) 4.30 - 5.80 M/cumm [facility] MCV 100.6(H) 81.3 - 96.4 fL [facility] MCH 34.1(H) 27.1 - 33.3 pg [facility] MCHC 33.9 32.3 - 35.7 g/dL [facility] RDW CV 13.5 11.1 - 14.9 % [facility] RDW SD 50.2(H) 35.7 - 48.1 fL [facility] NRBC abs 0.00 0.00 - 0.01 K/cumm [facility] Blood 11/05/2022 6:22 AM CDT 11/05/2022 7:08 AM CDT Beatrice Jones MD LAB BLOOD ORDERABLES Final Re sult Performing Organization Address City/[facility]/ZIP Co de Phone Number [address] [employer] [place], [place] [id number] * (ABNORMAL) Erythrocyte sedimentation rate (11/04/2022 3:15 PM CDT) Pathologist [facility] Erythrocyte sedimentation rate 32(H) 1 - 15 mm/hr [facility] Blood 11/04/2022 3:15 PM CDT 11/04/2022 3:35 PM CDT Luke Jones MD LAB BLOOD ORDERABLE S Final Result Performing Organization Address City/[facility] Co de Phone Number [address] [place] [address] * (ABNORMAL) CRP (acute phase) (11/04/2022 3:15 PM CDT) Pathologist [facility] CRP 91.2(H) <=10.0 mg/L [facility] Blood 11/04/2022 3:15 PM CDT 11/04/2022 3:35 PM CDT Luke Jones MD LAB BLOOD ORDERABLE S Final Result Performing Organization Address [facility] Co de Phone Number [facility] [address] [facility] [place] [address] * Rotavirus antigen Stool (11/04/2022 12:30 PM CDT) Rotavirus Ag Negative Negative [facility] Comment: Interpretative Data Testing performed at the [facility] using antigen detection with Xpect Rotavirus lateral flow assay. ??This test is cleared by the [place] Food and Drug Administration for fresh stool specimens. ??The performance characteristics have been verified by the [facility]. ??A negative result does [...] was last updated 09/17/2019. Testing performed by: [facility], [address] [place] [address] Stool 11/04/2022 12:3 0 PM CDT 11/04/2022 4:52 PM CDT Noreen Moura MD LAB MICROBIOLOGY - GENERAL ORD ERABLES Final Result Performing Organization Address City/[facility]/ZIP Co de Phone Number [facility] [address] [facility] [place] [address] * eGFR (11/04/2022 3:15 AM CDT) Pathologist [facility] eGFR 91 mL/min/1. 73 m2 [facility] Comment: Interpretive Data Reference Interval Normal ?>/= [...] Inclusion of Race in Diagnosing Kidney Disease, MONTYSTaras 2020). The CKD-EPI equation should not be used for patients with unstable renal function and has not been validated in children and those over 70. Current interpretive data was last reviewed 2021. Blood 11/04/2022 3:15 AM CDT 11/04/2022 3:57 AM CDT us Beatrice Jones MD LAB BLOOD ORDERABLES Final Re sult [facility] [address] [facility] Department [place] [address] * (ABNORMAL) Differential, auto (11/04/2022 3:15 AM CDT) Pathologist [facility] Neutrophil abs 8.7(H) 1.7 - 6.5 K/cumm [facility] Imm gran abs 0.1 0.0 - 0.1 K/cumm [facility] Lymphocyte abs 1.4 0.8 - 3.3 K/cumm [facility] Monocyte abs 0.9(H) 0.2 - 0.8 K/cumm [facility] Eosinophil abs 0.0 0.0 - 0.5 K/cumm [facility] Basophil abs 0.0 0.0 - 0.1 K/cumm [facility] Neutrophil pct 78.8 % [facility] Comment: Interpretive Data Percent cell count reference ranges are not reported, since discordance with absolute values may lead to misinterpretation of CBC data. Current Interpretive Data was last revised on 2017. Imm gran pct 0.5 % [facility] Comment: Interpretive Data Percent cell count reference ranges are not reported, since discordance with absolute values may lead to misinterpretation of CBC data. Current Interpretive Data was last revised on 2017. Lymphocyte pct 12.4 % [facility] Comment: Interpretive Data Percent cell count reference ranges are not reported, since discordance with absolute values may lead to misinterpretation of CBC data. Current Interpretive Data was last revised on 2017. Monocyte pct 7.9 % [facility] Comment: Interpretive Data Percent cell count reference ranges are not reported, since discordance with absolute values may lead to misinterpretation of CBC data. Current Interpretive Data was last revised on 2017. Eosinophil pct 0.2 % [facility] Comment: Interpretive Data Percent cell count reference ranges are not reported, since discordance with absolute values may lead to misinterpretation of CBC data. Current Interpretive Data was last revised on 2017. Basophil pct 0.2 % [facility] Comment: Interpretive Data Percent cell count reference ranges are not reported, since discordance with absolute values may lead to misinterpretation of CBC data. Current Interpretive Data was last revised on 2017. Blood 11/04/2022 3:15 AM CDT 11/04/2022 3:58 AM CDT us Beatrice Jones MD LAB BLOOD ORDERABLES Final Re sult [facility] [address] [facility] Department [place] [address] * (ABNORMAL) Basic metabolic panel (11/04/2022 3:15 AM CDT) Sodium 139 135 - 145 mmol/L [facility] Potassium, pl 4.1 3.3 - 4.9 mmol/L [facility] Chloride 109 97 - 110 mmol/L [facility] CO2 20(L) 22 - 32 mmol/L [facility] Anion gap 10 2 - 15 mmol/L [facility] BUN 15 8 - 25 mg/dL [facility] Creatinine 1.10 0.80 - 1.30 mg/dL [facility] Glucose 88 70 - 199 mg/dL [facility] Comment: Interpretive Data Fasting glucose >/= [...] 2022. Calcium 7.9(L) 8.5 - 10.3 mg/dL [facility] Blood 11/04/2022 3:15 AM CDT 11/04/2022 3:57 AM CDT us Beatrice Jones MD LAB BLOOD ORDERABLES Final Re sult [facility] [address] [facility] Department [place] [address] * (ABNORMAL) CBC with auto differential (11/04/2022 3:15 AM CDT) WBC 11.1(H) 3.8 - 9.9 K/cumm [facility] Hgb 12.0(L) 13.0 - 17.5 g/dL [facility] Hct 36.0(L) 38.9 - 50.3 % [facility] Plt 163 150 - 400 K/cumm [facility] MPV 10.6 9.1 - 12.3 fL [facility] RBC 3.51(L) 4.30 - 5.80 M/cumm [facility] MCV 102.6(H) 81.3 - 96.4 fL [facility] MCH 34.2(H) 27.1 - 33.3 pg [facility] MCHC 33.3 32.3 - 35.7 g/dL [facility] RDW CV 13.9 11.1 - 14.9 % [facility] RDW SD 52.7(H) 35.7 - 48.1 fL [facility] NRBC abs 0.00 0.00 - 0.01 K/cumm [facility] Blood 11/04/2022 3:15 AM CDT 11/04/2022 3:58 AM CDT Beatrice Jones MD LAB BLOOD ORDERABLES Final Re sult Performing Organization Address [facility] Co de Phone Number [address] [place] [address] * (ABNORMAL) Calprotectin, fecal (11/03/2022 5:27 PM CDT) Calprotectin, fecal 162(H) <50.0 (Normal) mcg/g [facility] Comment: Interpretation: Abnormal (>120 mcg/g) Test Performed by: [facility] [address] [place] [address] Form Stripper: Christopher Storey M.D. Ph.D.; IA# [id number] Stool 11/03/2022 5:27 PM CDT 11/03/2022 5:38 PM CDT Romana Brush NP LAB BODY FLUIDS AND STOOLS ALICJA VALLEJO Final Result Performing Organization Address City/[facility]/ZIP Co de Phone Number [place] [id number] [facility] [place] [address] * Cryptosporidium and giardia antigen assay Stool (11/03/2022 10:00 AM CDT) Report Final Report: Negative for Giardia lamblia antigen Negative for Cryptosporidium antigen [facility] Comment:Testing performed by : [facility], [address] [facility] [place]., [address] Organism NEGATIVE FOR GIARDIA LAMBLIA ANTIGEN [facility] Organism NEGATIVE FOR CRYPTOSPORIDIUM ANTIGEN [facility] Stool 11/03/2022 10:0 0 AM CDT 11/03/2022 1:47 PM CDT Narrative [facility] - 11/06/2022 8:39 AM CDT Received in [employer] and [employer] Interpretive data: Testing performed by the [facility] using an immunoassay that detects Cryptosporidium and Giardia antigens in stool specimens. If comprehensive examination for ova and parasites is required, please request Ova and Parasite Examination . Current interpretative data was revised August 2020. Noreen Moura MD LAB MICROBIOLOGY - GENERAL ORD ERABLES Final Result [facility] [address] [place] [address] * Ova and parasite examination Stool (11/03/2022 10:00 AM CDT) Report Final Report: No parasites detected. Note: treatment with antibiotics; e.g., Clindamycin, Metronidazole , Tetracycline, and Trimethoprim- sulfa can adversely affect the detection of ova and parasites. Test performed by [facility], [address] [place] [address], [id number]. [facility] Comment:Testing performed by : [facility], [address] [place] [address] Stool 11/03/2022 10:0 0 AM CDT 11/03/2022 1:46 PM CDT Narrative [facility] - 11/16/2022 3:28 PM CDT Received in [employer] Is the patient immunospressed?->Yes Has the patient had recent travel outside the [place]?->No Nelia SAM LAB MICROBIOLOGY - GENERAL ORDER YOSELYN Final Result [place] [address] [facility] [email or web address] [place], [place] [id number] * C. difficile testing Stool (11/03/2022 10:00 AM CDT) [facility] C. diff result Negative, DNA Negative , DNA [facility] Comment:NAP (O27) - presumpt talha negative C. diff interp Negative for toxigenic Clostridioides (Clostridium) difficile. ??Analysis performed by detection of gene(s) encoding C. difficile toxin(s). ??The nucleic acid detection assay used is cleared by the [place] Food and Drug administration and its performance characteristics have been verified by the performing laboratory. [facility] Stool 11/03/2022 10:0 0 AM CDT 11/03/2022 10:13 AM CDT Nelia SAM LAB MICROBIOLOGY - GENERAL ORDER YOSELYN Final Result Performing Organization Address [facility] de Phone Number [address] [place] [address] * (ABNORMAL) CRP (acute phase) (11/03/2022 4:06 AM CDT) [facility] CRP 97.0(H) <=10.0 mg/L [facility] Blood 11/03/2022 4:06 AM CDT 11/03/2022 4:32 AM CDT Noreen Moura MD LAB BLOOD ORDERABLES Final Res ult Performing Organization Address [facility] de Phone Number [address] [place] [address] * (ABNORMAL) Erythrocyte sedimentation rate (11/03/2022 4:06 AM CDT) [facility] Erythrocyte sedimentation rate 32(H) 1 - 15 mm/hr [facility] Blood 11/03/2022 4:06 AM CDT 11/03/2022 4:32 AM CDT Noreen Moura MD LAB BLOOD ORDERABLES Final Res ult Performing Organization Address [facility] Co de Phone Number [address] [place] [address] * eGFR (11/03/2022 4:06 AM CDT) eGFR 82 mL/min/1. 73 m2 [facility] Comment: Interpretive [...] BLOOD ORDERABLES Final Re sult [facility] [address] [facility] Department [place] [address] * (ABNORMAL) Differential, auto (11/03/2022 4:06 AM CDT) Neutrophil abs 14.7(H) 1.7 - 6.5 K/cumm [facility] Imm gran abs 0.1 0.0 - 0.1 K/cumm [facility] Lymphocyte abs 0.5(L) 0.8 - 3.3 K/cumm [facility] Monocyte abs 0.7 0.2 - 0.8 K/cumm [facility] Eosinophil abs 0.0 0.0 - 0.5 K/cumm [facility] Basophil abs 0.0 0.0 - 0.1 K/cumm [facility] Neutrophil pct 91.8 % [facility] Comment: Interpretive Data Percent cell count reference ranges are not reported, since discordance with absolute values may lead to misinterpretation of CBC data. Current Interpretive Data was last revised on 2017. Imm gran pct 0.6 % [facility] Comment: Interpretive Data Percent cell count reference ranges are not reported, since discordance with absolute values may lead to misinterpretation of CBC data. Current Interpretive Data was last revised on 2017. Lymphocyte pct 3.0 % [facility] Comment: Interpretive Data Percent cell count reference ranges are not reported, since discordance with absolute values may lead to misinterpretation of CBC data. Current Interpretive Data was last revised on 2017. Monocyte pct 4.4 % [facility] Comment: Interpretive Data Percent cell count reference ranges are not reported, since discordance with absolute values may lead to misinterpretation of CBC data. Current Interpretive Data was last revised on 2017. Eosinophil pct 0.0 % [facility] Comment: Interpretive Data Percent cell count reference ranges are not reported, since discordance with absolute values may lead to misinterpretation of CBC data. Current Interpretive Data was last revised on 2017. Basophil pct 0.2 % [facility] Comment: Interpretive Data Percent cell count reference ranges are not reported, since discordance with absolute values may lead to misinterpretation of CBC data. Current Interpretive Data was last revised on 2017. Blood 11/03/2022 4:06 AM CDT 11/03/2022 4:32 AM CDT us Beatrice Jones MD LAB BLOOD ORDERABLES Final Re sult [facility] [address] [facility] Department [place] [address] * (ABNORMAL) Basic metabolic panel (11/03/2022 4:06 AM CDT) [facility] Sodium 134(L) 135 - 145 mmol/L [facility] Potassium, pl 4.0 3.3 - 4.9 mmol/L [facility] Chloride 104 97 - 110 mmol/L [facility] CO2 19(L) 22 - 32 mmol/L [facility] Anion gap 11 2 - 15 mmol/L [facility] BUN 16 8 - 25 mg/dL [facility] Creatinine 1.20 0.80 - 1.30 mg/dL [facility] Glucose 149 70 - 199 mg/dL [facility] Comment: Interpretive Data Fasting glucose >/= [...] 2022. Calcium 8.0(L) 8.5 - 10.3 mg/dL [facility] Blood 11/03/2022 4:06 AM CDT 11/03/2022 4:32 AM CDT us Beatrice Jones MD LAB BLOOD ORDERABLES Final Re sult [facility] [address] [facility] Department [place] [address] * (ABNORMAL) CBC with auto differential (11/03/2022 4:06 AM CDT) [facility] WBC 16.0(H) 3.8 - 9.9 K/cumm [facility] Hgb 12.3(L) 13.0 - 17.5 g/dL [facility] Hct 36.3(L) 38.9 - 50.3 % [facility] Plt 167 150 - 400 K/cumm [facility] MPV 10.3 9.1 - 12.3 fL [facility] RBC 3.54(L) 4.30 - 5.80 M/cumm [facility] MCV 102.5(H) 81.3 - 96.4 fL [facility] MCH 34.7(H) 27.1 - 33.3 pg [facility] MCHC 33.9 32.3 - 35.7 g/dL [facility] RDW CV 13.6 11.1 - 14.9 % [facility] RDW SD 51.9(H) 35.7 - 48.1 fL [facility] NRBC abs 0.00 0.00 - 0.01 K/cumm [facility] Blood 11/03/2022 4:06 AM CDT 11/03/2022 4:32 AM CDT us Beatrice Jones MD LAB BLOOD ORDERABLES Final Re sult Performing Organization Address [facility] de Phone Number [address] [place] [address] * Lactate (11/03/2022 4:06 AM CDT) Lactate 1.4 0.7 - 2.0 mmol/L [facility] Blood 11/03/2022 4:06 AM CDT 11/03/2022 4:30 AM CDT Beatrice Jones MD LAB BLOOD ORDERABLES Final Re sult Performing Organization Address [facility] de Phone Number [address] [address] * Stool culture Stool Rectum (11/03/2022 3:30 AM CDT) Direct Specimen Exam Shiga Toxin Testing: Antigen detection assay for Shiga-toxin NEGATIVE for Shiga Toxin 1 and Shiga Toxin 2. [facility] Comment:Testing performed by : [facility], [address] [facility], [place]., [address] Report Final Report: No growth of enteric bacterial pathogens [facility] Comment:Testing performed by : [facility], [address] [place]., [address] Stool (Rectum) 11/03/2022 3: 30 AM CDT 11/03/2022 6:39 AM CDT Narrative [facility] - 11/07/2022 2:31 PM CDT Testing performed by [facility] ([phone]). Routine stool cultures include procedures to detect Salmonella, Shigella, Edwardsiella, Aeromonas, Pleisiomonas, Campylobacter, Yersinia, E. coli O157, and Shiga-like toxins. ?? Vibrio is cultured only upon special request. ??If Vibrio is suspected, please call the laboratory at [phone]. Interpretive data was last updated November 06, 2016. Nelia SAM LAB MICROBIOLOGY - GENERAL ORDER YOSELYN Final Result [facility] [address] [facility] Department [place] [address] * Blood culture Blood Forearm, right (11/02/2022 10:25 PM CDT) Report Final Report: No growth [facility] Comment:Testing performed by : [facility], [address] [place]., [address] Blood (Forearm, right) 11/02/2022 10:25 PM CDT [...] organism identification may be performed using the Chlorine Genieigene Gram-Positive Blood Culture Assay. This assay detects microbial DNA in positive blood culture broth via hybridization of target DNA to capture oligonucleotides on a microarray. This assay has been cleared by the [place] Food and Drug Administration and its performance characteristics have been verified by the [facility]. 5. ?For questions about this culture, contact the Microbiology Laboratory at [phone]. Interpretive data was last revised on 2019. Nelia SAM LAB MICROBIOLOGY - GENERAL ORDER YOSELYN Final Result [facility] [address] [facility] Department [place] [address] * Blood culture Blood Antecubital, right (11/02/2022 10:24 PM CDT) Report Final Report: No growth [facility] Comment:Testing performed by : [facility], [address] [place] [address] Blood (Antecubital, right) 11/02/2022 10:24 PM CDT [...] organism identification may be performed using the Chlorine Genieigene Gram-Positive Blood Culture Assay. This assay detects microbial DNA in positive blood culture broth via hybridization of target DNA to capture oligonucleotides on a microarray. This assay has been cleared by the [place] Food and Drug Administration and its performance characteristics have been verified by the [facility]. 5. ?For questions about this culture, contact the Microbiology Laboratory at [phone]. Interpretive data was last revised on 2019. [facility] MICROBIOLOGY - GENERAL ORDER YOSELYN Final Result Performing Organization Address City/[facility] Co de Phone Number [place] [id number] [facility] [place] [address] * Urine culture Urine (11/02/2022 9:12 PM CDT) Report Final Report: Less than 100,000 colonies/mL (clinically insignificant growth based on current clinical standards) [facility] Comment:Testing performed by : [facility], [address] [place] [address] Organism (CLINICALLY INSIGNIFICANT GROWTH [facility] Urine 11/02/2022 9:12 PM CDT 11/03/2022 1:06 AM CDT Narrative [facility] - 11/04/2022 8:41 AM CDT Urine culture reflexed based upon urinalysis results. Testing performed by [facility] ([phone]) [employer] [facility] LAB MICROBIOLOGY - GENERAL ORDER YOSELYN Final Result Performing Organization Address City/[facility] Co de Phone Number [facility] [place] [address] * (ABNORMAL) Urinalysis, microscopic only (11/02/2022 9:12 PM CDT) WBC, ur >50(A) 0 - 5 /HPF [facility] RBC, ur 6-10(A) 0 - 2 /HPF [facility] Epithelial cells, squamous, ur 1-5 0 - 5 /HPF [facility] Bacteria, ur Trace(A) [facility] Mucous, ur Present(A) [facility] Culture Reflex Comment Reflex to urine culture will be performed. [facility] Urine 11/02/2022 9:12 PM CDT 11/02/2022 9:17 PM CDT us Nelia SAM LAB URINE ORDERABLES Final Resul t [facility] [address] [facility] Department [place] [address] * (ABNORMAL) Urinalysis reflex to microscopic and culture Urine (11/02/2022 9:12 PM CDT) Color, ur Reyna Yellow [facility] Clarity, ur Clear Clear [facility] Specific gravity, ur 1.035(H) 1.003 - 1.030 [facility] pH, urine 5.0 [facility] Protein, ur ql 2+(A) Negative [facility] Glucose, ur ql Negative Negative [facility] Ketones, ur Trace Negative [facility] Bilirubin, ur Negative Negative [facility] Blood, ur Negative Negative [facility] Urobilinogen, ur <2.0 <2.0 mg/dL [facility] Nitrite, ur Negative Negative [facility] Leukocyte esterase, ur Negative Negative [facility] UA reflex comment Reflex to microscopic UA will be performed. [facility] Urine 11/02/2022 9:12 PM CDT 11/02/2022 9:17 PM CDT Narrative [facility] - 11/02/2022 9:24 PM CDT ?? Urine pH is affected by diet, medications, systemic acid-base disturbances, and renal tubular function. ??pH may affect urinary stone formation. ??For example, urine pH below 6.0 may help reduce the tendency for calcium phosphate stones and pH greater than 6.0 may reduce the tendency for uric acid stone formation. Source: [facility] [employer]. Last revised 07-12-2017 us Nelia SAM LAB MICROBIOLOGY - GENERAL ORDER YOSELYN Final Result [facility] [address] [facility] [place] [address] * CT Abdomen Pelvis W Contrast (11/02/2022 [...] D: ??11/02/2022 7:56 PM T: Report ID: [id number] Reading Location: ??[id number] Procedure Note Lyubov Hudson MD - 11/02/2022 [...] Lyubov Hudson M.D. AT T: Report ID: [id number] Reading Location: [place] [address] PROCEDURES Final Result * Magnesium (11/02/2022 5:18 PM CDT) Magnesium 1.5 1.4 - 2.5 mg/dL [facility] Blood 11/02/2022 5:18 PM CDT 11/02/2022 5:21 PM CDT Nelia SAM LAB BLOOD ORDERABLES Final Resul t [facility] [address] [facility] Department [place] [address] * Phosphorus (11/02/2022 5:18 PM CDT) Phosphorus, pl 2.3 2.3 - 4.5 mg/dL [facility] Blood 11/02/2022 5:18 PM CDT 11/02/2022 5:21 PM CDT us Nelia SAM LAB BLOOD ORDERABLES Final Resul t [facility] [address] [facility] Department [place] [address] * eGFR (11/02/2022 5:18 PM CDT) eGFR 68 mL/min/1. 73 m2 [facility] Comment: Interpretive [...] 5:18 PM CDT 11/02/2022 5:21 PM CDT [facility] LAB BLOOD ORDERABLES Final Resul t Performing Organization Address City/[facility]/[place] Co de Phone Number [address] [address] * Lipase (11/02/2022 5:18 PM CDT) Pathologist [facility] Lipase 21 10 - 99 Units/L [facility] Blood 11/02/2022 5:18 PM CDT 11/02/2022 5:21 PM CDT [facility] LAB BLOOD ORDERABLES Final Resul t Performing Organization Address [facility] de Phone Number CRUZ [address] [address] * (ABNORMAL) Comprehensive metabolic panel (11/02/2022 5:18 PM CDT) [facility] Sodium 133(L) 135 - 145 mmol/L [facility] Potassium, pl 4.6 3.3 - 4.9 mmol/L [facility] Chloride 101 97 - 110 mmol/L [facility] CO2 19(L) 22 - 32 mmol/L [facility] Anion gap 13 2 - 15 mmol/L [facility] BUN 20 8 - 25 mg/dL [facility] Creatinine 1.40(H) 0.80 - 1.30 mg/dL [facility] Glucose 117 70 - 199 mg/dL [facility] Comment: Interpretive Data Fasting glucose >/= [...] 2022. Calcium 8.0(L) 8.5 - 10.3 mg/dL [facility] Bilirubin, total 0.5 0.1 - 1.2 mg/dL [facility] Protein, pl 7.5 6.5 - 8.5 g/dL [facility] Albumin 4.2 3.5 - 5.0 g/dL [facility] Alk phos 74 40 - 130 Units/L [facility] ALT 27 7 - 55 Units/L [facility] AST 31 10 - 50 Units/L [facility] Comment:MODERATE HEMOLYZED: Hemolysis interferes with the above test. Blood 11/02/2022 5:18 PM CDT 11/02/2022 5:21 PM CDT us Nelia SAM LAB BLOOD ORDERABLES Final Resul t [facility] [address] [facility] Department [place] [address] * (ABNORMAL) Differential, auto (11/02/2022 4:49 PM CDT) Neutrophil abs 9.2(H) 1.7 - 6.5 K/cumm [facility] Imm gran abs 0.0 0.0 - 0.1 K/cumm [facility] Lymphocyte abs 0.6(L) 0.8 - 3.3 K/cumm [facility] Monocyte abs 0.8 0.2 - 0.8 K/cumm [facility] Eosinophil abs 0.2 0.0 - 0.5 K/cumm [facility] Basophil abs 0.0 0.0 - 0.1 K/cumm [facility] Neutrophil pct 84.7 % [facility] Comment: Interpretive Data Percent cell count reference ranges are not reported, since discordance with absolute values may lead to misinterpretation of CBC data. Current Interpretive Data was last revised on 2017. Imm gran pct 0.3 % [facility] Comment: Interpretive Data Percent cell count reference ranges are not reported, since discordance with absolute values may lead to misinterpretation of CBC data. Current Interpretive Data was last revised on 2017. Lymphocyte pct 5.8 % [facility] Comment: Interpretive Data Percent cell count reference ranges are not reported, since discordance with absolute values may lead to misinterpretation of CBC data. Current Interpretive Data was last revised on 2017. Monocyte pct 7.1 % [facility] Comment: Interpretive Data Percent cell count reference ranges are not reported, since discordance with absolute values may lead to misinterpretation of CBC data. Current Interpretive Data was last revised on 2017. Eosinophil pct 1.7 % [facility] Comment: Interpretive Data Percent cell count reference ranges are not reported, since discordance with absolute values may lead to misinterpretation of CBC data. Current Interpretive Data was last revised on 2017. Basophil pct 0.4 % [facility] Comment: Interpretive Data Percent cell count reference ranges are not reported, since discordance with absolute values may lead to misinterpretation of CBC data. Current Interpretive Data was last revised on 2017. Blood 11/02/2022 4:49 PM CDT 11/02/2022 4:54 PM CDT [facility] LAB BLOOD ORDERABLES Final Resul t Performing Organization Address City/[facility]/ZIP Co de Phone Number [address] [place] [address] * Sepsis Lactate w/ Reflex (11/02/2022 4:49 PM CDT) [facility] Sepsis Lactate 1.5 0.7 - 2.0 mmol/L [facility] Blood 11/02/2022 4:49 PM CDT 11/02/2022 4:53 PM CDT [facility] LAB BLOOD ORDERABLES Final Resul t [address] [place] [address] * (ABNORMAL) CBC with auto differential (11/02/2022 4:49 PM CDT) [facility] WBC 10.8(H) 3.8 - 9.9 K/cumm [facility] Hgb 14.7 13.0 - 17.5 g/dL [facility] Hct 42.7 38.9 - 50.3 % [facility] Plt 199 150 - 400 K/cumm [facility] MPV 10.1 9.1 - 12.3 fL [facility] RBC 4.22(L) 4.30 - 5.80 M/cumm [facility] MCV 101.2(H) 81.3 - 96.4 fL [facility] MCH 34.8(H) 27.1 - 33.3 pg [facility] MCHC 34.4 32.3 - 35.7 g/dL [facility] RDW CV 13.7 11.1 - 14.9 % [facility] RDW SD 50.8(H) 35.7 - 48.1 fL [facility] NRBC abs 0.00 0.00 - 0.01 K/cumm [facility] Blood 11/02/2022 4:49 PM CDT 11/02/2022 4:54 PM CDT us Nelia SAM LAB BLOOD ORDERABLES Final Resul t Performing Organization Address City/State/[place] Co de Phone Number [facility] [address] [facility] Department [place] [address] documented in this encounter Visit Diagnoses Diagnosis [...] Sun11/03/22 at 2100, Indications: VTE Prophylaxis 0923 ([facility] Hold - Provider: Automatic Transfer Provider - Reason: Patient not available)1048 ([facility] Unhold - Provider: Automatic Transfer Provider)2034 (Given - Provider: Olena Pelayo RN) 2114 (Given - Provider: Bessie Lezama RN) folic acid (FOLVITE) tablet 1 mg 1 mg, oral, Daily, First dose on Sun11/04/22 at 1030 0903 (Given - Provider: Anne Phan RN)0923 ([facility] Hold - Provider: Automatic Transfer Provider - Reason: Patient not available)1048 ([facility] Unhold - Provider: Automatic Transfer Provider) 0923 (Given - Provider: Henry Garrett RN) 0858 (Given - Provider: Henyr Garrett RN) mercaptopurine (PURINETHOL) tablet 50 mg 50 mg, oral, Daily, First dose on Sun11/04/22 at 1400, Indications: Crohn's Disease 0903 (Given - Provider: Anne Phan RN)0923 ([facility] Hold - Provider: Automatic Transfer Provider - Reason: Patient not available)1048 ([facility] Unhold - Provider: Automatic Transfer Provider) 0923 [...] Provider)1359 (New Bag - Provider: Anne Phan, JOSH)213 (New Bag - Provider: Olena Pelayo, JOSH) 0535 (New Bag - Provider: Olena Pelayo RN)1346 (New Bag - Provider: Henry Garrett, JOSH)211 (New Bag - Provider: Bessie Lezama, JOSH) [...] primary IV, not intended for KVO 922 ([facility] Hold - Provider: Automatic Transfer Provider - Reason: Patient not available)1048 ([facility] Unhold - Provider: Automatic Transfer Provider) colestipoL (COLESTID) tablet 1 g (PATIENT HOME SUPPLIED MEDICATION) 1 g, oral, 4 times daily PRN, bile acid sequestrant, Starting on Sun11/03/22 at 1644, PRN diarrhea Schedule other medications 1 hour before or 4 hours after colestipol. Med/Strength/Formulation: colestipol 1g Do not crush, chew, cut, dissolve, open or otherwise manipulate tablet/capsule. 0923 ([facility] Hold - Provider: Automatic Transfer Provider - Reason: Patient not available)1048 ([facility] Unhold - Provider: Automatic Transfer Provider) 2115 (Given - Provider: Bessie Lezama RN) metoclopramide (REGLAN) injection 10 mg 10 mg, intravenous, Every 8 hours PRN, other, Nausea/vomiting, Starting on Sun11/03/22 at 0156 0923 ([facility] Hold - Provider: Automatic Transfer Provider - Reason: Patient not available)1048 ([facility] Unhold - Provider: Automatic Transfer Provider) ondansetron (ZOFRAN) injection 4 mg 4 mg, intravenous, Administer over 2 Minutes, Every 6 hours PRN, nausea, vomiting, Starting on Sun11/03/22 at 0156 0923 ([facility] Hold - Provider: Automatic Transfer Provider - Reason: Patient not available)1048 ([facility] Unhold - Provider: Automatic Transfer Provider) documented [...] 11/04/2022 documented in this encounter Care Teams Warp Knitter Helper Relationship Specialty Start Date End Date Lanre Parekh DO PCP - General Family Medicine 01/23/19 documented as of this encounter
--- OUTSIDE RECORDS SUMMARY | 2024-07-09 09:50 | XMS_ITS | Encounter Summary ---
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
--- OUTSIDE RECORDS SUMMARY | 2024-07-09 09:50 | XMS_ITS | Encounter Summary ---
Author Organization [facility] Address [address] [place] [address] Phone Care Team Providers Care Employment Security Officer Name Role Phone Lanre Parekh Primary Care Provide r Encounter Details Date Type Department Care Team (Late st Contact Info) Description 10/26/2022 9:45 AM CDT Office Visit [facility] Gastroenterology [address] [facility] Medicine 12th [place] [address] [place] [address] Eliana Quevedo MD [address] [place] [address] Crohn's disease of both small and large [...] on file 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 Standing orders placed at [facility] We will also check your TSH- order placed at [facility] The pneumovax vaccine was provided in clinic today Please obtain the updated Covid booster (available at most pharmacies) at least 2 weeks after othervaccines A prescription for Folic Acid will be sent to your pharmacy. Humira samples (2 pens) provided to patient Please monitor your blood pressure, should be below 130/90 Please try using Calmoseptine Refills for Azathioprine and Allopurinol sent to [facility] We will place an order for the Shingrix vaccine to be given at [address] You will be contacted for scheduling [...] SENT TO: Routine 08/27/2023 8: 44 AM SALAD BAR CLERK HEPATIC FUNCTION PANEL Routine 08/27/2023 8:44 AM SALAD BAR CLERK Crohn's disease of both small and large [...] * COPY(IES) SENT TO: (08/27/2023 8:44 AM SALAD BAR CLERK) COPY(IES) SENT TO: [facility] Comment: ?[facility] ?COPY TO ACCOUNT ?[id number] ?[place] [address] 08/27/2023 8:44 AM SALAD BAR CLERK 08/27/2023 8:45 AM SALAD BAR CLERK Eliana Quevedo MD LAB BLOOD ORDERABLE S Final Result [facility] * Hepatic function panel (08/27/2023 8:44 AM SALAD BAR CLERK) Protein, Total 7.8 6.4 - 8.4 g/dL [facility] Albumin 4.5 3.6 - 5.1 g/dL [facility] Globulin 3.3 2.2 - 4.0 g/dL (calc) [facility] Alb/glob ratio 1.4 0.9 - 2.3 (calc) [facility] Bilirubin, total 0.6 0.2 - 1.2 mg/dL [facility] Bilirubin, direct 0.1 < OR = 0.2 mg/dL [facility] Bilirubin, indirect 0.5 0.2 - 1.2 mg/dL (calc) [facility] Alk phos 58 36 - 130 U/L [facility] AST 22 10 - 40 U/L [facility] ALT (SGPT) 23 9 - 46 U/L [facility] Blood 08/27/2023 8:44 AM SALAD BAR CLERK 08/27/2023 8:45 AM SALAD BAR CLERK Eliana Quevedo MD LAB BLOOD ORDERABLE S Final Result Performing Organization Address City/[facility]/ZIP Co de Phone Number [facility] [address] [place] [address] * TSH reflex to free T4 (02/05/2023 10:38 AM CDT) Pathologist [facility] TSH 0.74 0.40 - 4.50 mIU/L [facility] 02/05/2023 10:3 8 AM CDT 02/05/2023 10:39 AM CDT Eliana Quevedo MD LAB BLOOD ORDERABLE S Final Result Performing Organization Address [facility] Co de Phone Number [facility] [address] [place] [address] * Hepatic function panel (02/05/2023 10:38 AM CDT) Pathologist [facility] Protein, Total 8.0 6.4 - 8.4 g/dL [facility] Albumin 4.6 3.6 - 5.1 g/dL [facility] Globulin 3.4 2.2 - 4.0 g/dL (calc) [facility] Alb/glob ratio 1.4 0.9 - 2.3 (calc) [facility] Bilirubin, total 0.8 0.2 - 1.2 mg/dL [facility] Bilirubin, direct 0.2 < OR = 0.2 mg/dL [facility] Bilirubin, indirect 0.6 0.2 - 1.2 mg/dL (calc) [facility] Alk phos 66 36 - 130 U/L [facility] AST 25 10 - 40 U/L [facility] ALT (SGPT) 26 9 - 46 U/L [facility] 02/05/2023 10:3 8 AM CDT 02/05/2023 10:39 AM CDT Eliana Quevedo MD LAB BLOOD ORDERABLE S Final Result Performing Organization Address [facility]/ZIP Co de Phone Number [facility] [address] [place] [address] * COPY(IES) SENT TO: (02/05/2023 10:38 AM CDT) [facility] COPY(IES) SENT TO: [facility] Comment: ?[facility]/HEPAT DIV ?COPY TO ACCOUNT ?[address] ?[place] [address] 02/05/2023 10:3 8 AM CDT 02/05/2023 10:39 [...] ORDERABLE S Final Result Performing Organization Address City/[facility]/ZIP Co de Phone Number [facility] [address] [place] [address] * TSH reflex to free T4 (10/26/2022 1:36 PM CDT) TSH 0.99 0.40 - 4.50 mIU/L [facility] 10/26/2022 1:36 PM CDT 10/26/2022 1:37 PM CDT Eliana Quevedo MD LAB BLOOD ORDERABLE S Final Result Performing Organization Address [facility] Co de Phone Number [facility] [address] [place] [address] * COPY(IES) SENT TO: (10/26/2022 1:36 PM CDT) COPY(IES) SENT TO: [facility] Comment: ?[facility]HEPAT [facility] ?COPY TO ACCOUNT ?[address] ?[place] [address] 10/26/2022 1:36 PM CDT 10/26/2022 1:37 PM [...] ORDERABLE S Final Result [facility] [address] [place] [address] * (ABNORMAL) CBC with auto differential (10/26/2022 [...] LAB BLOOD ORDERABLE S Final Result [facility] [address] [place] [address] documented in this encounter Visit Diagnoses Diagnosis [...] 10/26/2022 documented in this encounter Care Teams Employment Security Officer Relationship Specialty Start Date End Date Lanre Parekh DO PCP - General Family Medicine 01/23/19 documented as of this encounter
--- OUTSIDE RECORDS SUMMARY | 2024-07-09 09:50 | XMS_ITS | Encounter Summary ---
Author Organization [facility] Address [address] [place] [address] Phone Care Team Providers Care Outside Sales Representative Insurance Name Role Phone Lanre Parekh Primary Care Provide r Encounter Details Date Type Department Care Team (Late st Contact Info) Description 04/20/2022 10:00 AM CDT Office Visit [facility] Gastroenterology [address] [facility] Medicine 12th [place] [address] [place] [address] Eliana Quevedo MD [address] [place] [address] Crohn's disease of both small and large [...] on file 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 Labs ordered at [facility]. A Flu vaccine was provided for you [...] deltoid per provider and tolerated well. Lot #[id number] exp 12/29/22 [facility]#[id number] * Eliana Quevedo MD - 04/20/2022 12:00 [...] presents today for follow-up. At this point, Spkie is doing so well. I have encouraged [...] 04/21/2022 01:59 PM Eliana Quevedo MD, MPH harness worker Division of Gastroenterology AG/jeni documented in [...] 04/20/2022 documented in this encounter Care Teams Outside Sales Representative Insurance Relationship Specialty Start Date End Date Lanre Parekh DO PCP - General Family Medicine 01/23/19 documented as of this encounter
--- OUTSIDE RECORDS SUMMARY | 2024-07-09 09:50 | XMS_ITS | Encounter Summary ---
Author Organization [facility] Address [address] [place] [address] Phone Care Team Providers Care Facility Environmental Technician Name Role Phone Lanre Parekh Primary Care Provide r Encounter Details Date Type Department Care Team (Late st Contact Info) Description 07/10/2022 Orders Only [facility] Gastroenterology [address] [facility] Medicine 12th [place] [address] [place] [address] Michaela Mitchell, hydraulics teacher Crohn's disease of both small and large [...] on file Legal Sex Male 11:11 PM CHAR CONVEYOR 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
--- OUTSIDE RECORDS SUMMARY | 2024-07-09 09:50 | XMS_ITS | Encounter Summary ---
Author Organization [facility] Address [address] [place] [address] Phone Care Team Providers Care Calender Runner Name Role Phone Lanre Parekh Primary Care Provide r Encounter Details Date Type Department Care Team (Late st Contact Info) Description 08/02/2022 Orders Only [facility] Gastroenterology [address] [facility] 12th [address] [place] [address] Michaela Mitchell, bingo clerk Crohn's disease of both small and large [...] on file Legal Sex Male 11:11 PM CONTROLS DESIGN ENGINEER Gender Identity Not on file [...] documented as of this encounter Care Teams Calender Runner Relationship Specialty Start Date End Date Lanre Parekh DO PCP - General Family Medicine 01/23/19 documented as of this encounter
--- OUTSIDE RECORDS SUMMARY | 2024-07-09 09:50 | XMS_ITS | Encounter Summary ---
Author Organization [facility] Address [address] [place] [address] Phone Care Team Providers Care Cupola Charger Name Role Phone Lanre Parekh Primary Care Provide r Reason for Visit * Reason Onset Date Comments PA for Humira 09/12/2022 PA Approved 09/12/2022 Plan Limit Quanity Exception Form 09/12/2022 Plan Limit Quantity Exception Denied 09/12/2022 Plan Limit Quantity Exception Approved Encounter Details Date Type Department Care Team (Late st Contact Info) Description 09/12/2022 Documentation [facility] Gastroenterology [address] [facility] 12th [place] [address] [place] [address] Shanika Braun for Humira; PA Approved; Plan [...] you attend [facility] or buddhism services? 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 Called Rhonda to give her an update on the next step and the urgent appeal that was initiated received call from Rhonda [phone] ext#[phone] with [facility] Specialty inquiring about PLQE, [...] exception) form completed and faxed back to [facility]ty [phone] 10/27/22 - returned called to [facility] Pharm[facility] [phone], spoke to Tiffanie, explained neededto initiate PA for Quantity Only, per Tiffanie, need to submit a PLQE (Plan Limit Quantity Exception), answered all questions, PA#[id number], Tiffanie states need to transfer to Clinician for review, Tiffanie spoke to Miguel Rivera asked for all medical records including the Humira article be faxed to [phone] for clinician review. Tiffanie state if denied, our office will receive the denial letter,next step would be an appeal for the quantity. All medication documentation and Humira article has been faxed 09/14/22 - PA approved through [facility] Specialty #[id number] Medication Only starting 09/13/2022 through 09/14/2023 PA verbally initiated to [facility] Specialty #[id number] for Humira (4 per 28 days) - medical records faxed to [phone] documented in this encounter Plan of Treatment Not on file documented as of this encounter Visit Diagnoses Not on filedocumented in this encounter Care Teams Cupola Charger Relationship Specialty Start Date End Date Lanre Parekh DO PCP - General Family Medicine 01/23/19 documented as of this encounter
--- OUTSIDE RECORDS SUMMARY | 2024-07-09 09:50 | XMS_ITS | Encounter Summary ---
Author Organization [facility] of 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
--- OUTSIDE RECORDS SUMMARY | 2024-07-09 09:51 | XMS_ITS | Encounter Summary ---
Author Organization [facility] Address [address] [place] [address] Phone Care Team Providers Care Tin Container Straightener Name Role Phone Lanre Parekh Primary Care Provide r Encounter Details Date Type Department Care Team (Late st Contact Info) Description 02/22/2022 Orders Only [facility] Neuro Sleep [address] [facility] 6th Floor [address] [place] [address] Davion Samuel NP [address] [place], [place] [id number] JALYN (obstructive sleep apnea) (Primary Dx) Social [...] file Legal 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
--- OUTSIDE RECORDS SUMMARY | 2024-07-09 09:51 | XMS_ITS | Encounter Summary ---
Author Organization [facility] Address [address] [place] [address] Phone Care Team Providers Care Director Financial Analysis Name Role Phone Lanre Parekh DO Primary Care Provide r Reason for Visit * Reason Comments Testicle Pain * Consultation (Routine) - Closed Specialty Diagnoses / Procedures Referred By Renay rivero Referred To Contact Urology Diagnoses Scrotal pain Lanre Parekh DO [address] [place] [address] Phone: tel: fax: [facility] (All Locations) Referral ID Status Reason Start Date Expiration Date V isits Requested Visits Authorized [id number] Closed Specialty Services Required 12/29/2021 01/28/2023 99 99 Encounter Details Date Type Department Care Team (Late st Contact Info) Description 03/07/2022 1:40 PM CDT Office Visit [facility] - 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
--- OUTSIDE RECORDS SUMMARY | 2024-07-09 09:51 | XMS_ITS | Encounter Summary ---
Author Organization [facility] Address [address] [place] [address] Care Team Providers Care Plastics Worker Name Role Phone EduinLanre milan DO Primary Care Provide r Reason for Visit * Diagnostic Imaging (Routine) - Closed Specialty Diagnoses / Procedures Referred By Renay t Referred To Contact Diagnoses Scrotal pain Procedures US Scrotum W Limited Doppler (C) US Scrotum Simona Carrillo NP Phone: tel: fax: [address] [address] Referral ID Status Reason Start Date Expiration Date Visits Re quested Visits Authorized [id number] Closed 01/17/2022 02/16/2023 1 1 Encounter Details Date Type Department Care Team (Latest Contact Info) Description 02/01/2022 1:37 PM CDT - 02/01/2022 11:59 PM CDT Hospital Encounter [facility] [address] [place], [place] [id number] Scrotal pain Discharge Disposition: Discharge to home [...] on file Legal 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 us Simona Carrillo NP [facility] PROCEDURES Final Result documented in this encounter Visit Diagnoses Diagnosis Scrotal pain Unspecified disorder of male genital organs documented in this encounter Care Teams Plastics Worker Relationship Specialty Start Date End Date Lanre Parekh DO PCP - General Family Medicine 01/23/19 documented as of this encounter
--- OUTSIDE RECORDS SUMMARY | 2024-07-09 09:51 | XMS_ITS | Encounter Summary ---
Author Organization [facility] Address [address] [place] [address] Phone Care Team Providers Care Tube Wrapper Name Role Phone Lanre Parekh Primary Care Provide r Encounter Details Date Type Department Care Team (Late st Contact Info) Description 03/07/2022 Orders Only [facility] Gastroenterology [address] [facility] Advanced Medicine 12th [place] [address] [place] [address] Eliana Quevedo MD [address] [place] [address] Crohn's disease of both small and large [...] on file Legal Sex Male 11:11 PM TECHNOLOGY PROJECT MANAGER Gender Identity Not on file Sexual Orientation Not on file documented as of this encounter Plan of Treatment Not on file documented as of this encounter Procedures Procedure Name Priority Date/Time Associated Diagnosis Comments COPY(IES) SENT TO: Routine 07/27/2022 8: 26 AM TECHNOLOGY PROJECT MANAGER THIOPURINE METABOLITES Routine 07/27/2022 8:26 AM TECHNOLOGY PROJECT MANAGER Crohn's disease of both small and large intestine with intestinal obstruction (HCC) CBC WITH AUTO DIFFERENTIAL Routine 07/27/2022 8:26 AM TECHNOLOGY PROJECT MANAGER HEPATIC FUNCTION PANEL Routine 07/27/2022 8:26 AM TECHNOLOGY PROJECT MANAGER documented in this encounter Results * (ABNORMAL) CBC with auto differential (07/27/2022 8:26 AM TECHNOLOGY PROJECT MANAGER) WBC 6.0 3.8 - 10.8 Thousand/u L [...] % [facility] 07/27/2022 8:26 AM TECHNOLOGY PROJECT MANAGER 07/27/2022 8:28 AM TECHNOLOGY PROJECT MANAGER Narrative [facility] - 08/01/2022 11:52 AM TECHNOLOGY PROJECT MANAGER FASTING:NO FASTING: NO us Eliana Quevedo MD LAB BLOOD ORDERABLE S Final Result Performing Organization Address [facility] Co de Phone Number [facility] [address] [place] [address] * Hepatic function panel (07/27/2022 8:26 AM TECHNOLOGY PROJECT MANAGER) Protein, Total 7.6 6.4 - 8.4 g/dL [...] U/L [facility] 07/27/2022 8:26 AM TECHNOLOGY PROJECT MANAGER 07/27/2022 8:28 AM TECHNOLOGY PROJECT MANAGER Narrative [facility] - 08/01/2022 11:52 AM TECHNOLOGY PROJECT MANAGER FASTING:NO FASTING: NO us Eliana Quevedo MD LAB BLOOD ORDERABLE S Final Result Performing Organization Address City/[facility]/ZIP Co de Phone Number [employer] [facility] [address] [facility] [place] [address] * COPY(IES) SENT TO: (07/27/2022 8:26 AM TECHNOLOGY PROJECT MANAGER) COPY(IES) SENT TO: [facility] Comment: ?[facility] ?COPY TO ACCOUNT ?[id number] ?[place] [address] 07/27/2022 8:26 AM TECHNOLOGY PROJECT MANAGER 07/27/2022 8:28 AM TECHNOLOGY PROJECT MANAGER Narrative [facility] - 08/01/2022 11:52 AM TECHNOLOGY PROJECT MANAGER FASTING:NO FASTING: NO Eliana Quevedo MD LAB BLOOD ORDERABLE S Final Result [facility] * (ABNORMAL) Thiopurine metabolites (07/27/2022 8:26 AM TECHNOLOGY PROJECT MANAGER) 6-TG, bld 195(L) 235 - 400 pmol/8x10( 8)RBC [facility] Comment: This test was developed and its analytical performance characteristics have been determined by [facility]. It has not been cleared or approved by the FDA. This assay has been validated pursuant to the CLIA regulations and is used for clinical purposes. 6 MMP <500 <5700 pmol/8x10( 8)RBC [facility] Comment: These results are useful [...] analytical performance characteristics have been determined by [facility]. It has not been cleared or approved by the FDA. This assay has been validated pursuant to the CLIA regulations and is used for clinical purposes. Blood 07/27/2022 8:26 AM TECHNOLOGY PROJECT MANAGER 07/27/2022 8:28 AM TECHNOLOGY PROJECT MANAGER Narrative [facility] - 08/01/2022 11:52 AM TECHNOLOGY PROJECT MANAGER FASTING:NO FASTING: NO us Eliana Quevedo MD LAB BLOOD ORDERABLE S Final Result [facility] [address] [place] [address] documented in this encounter Visit Diagnoses Diagnosis Crohn's disease of both small and large intestine with intestinal obstruction (HCC)- Primary documented in this encounter Care Teams Tube Wrapper Relationship Specialty Start Date End Date Lanre Parekh DO PCP - General Family Medicine 01/23/19 documented as of this encounter
--- OUTSIDE RECORDS SUMMARY | 2024-07-09 09:51 | XMS_ITS | Encounter Summary ---
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
--- OUTSIDE RECORDS SUMMARY | 2024-07-09 09:51 | XMS_ITS | Encounter Summary ---
Author Organization [facility] Address [address] [place] [address] Phone Care Team Providers Care Clinical Social Worker Name Role Phone Lanre Parekh Primary Care Provide r Encounter Details Date Type Department Care Team (Late st Contact Info) Description 02/27/2022 Orders Only [facility] Gastroenterology [address] [facility] 12th [place] [address] [place] [address] Michaela Mitchell, line staker Crohn's disease of both small and large [...] file 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
--- OUTSIDE RECORDS SUMMARY | 2024-07-09 09:51 | XMS_ITS | Encounter Summary ---
Author Organization [facility] Address [address] [place] [address] Phone Care Team Providers Care Admissions Officer Name Role Phone Lanre Parekh Primary Care Provide r Reason for Visit * Reason Onset Date Comments Prior Auth for Humira 03/24/2022 PA Approved 03/24/2022 Encounter Details Date Type Department Care Team (Late st Contact Info) Description 03/24/2022 Documentation [facility] Gastroenterology [address] 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 Gender Identity Not on file Sexual Orientation Not on file documented as of this encounter Progress Notes * Shanika Braun - 03/24/2022 4:13 PM CDT PA approved through [employer] #[id number] starting 02/22/2022 through 03/24/2023 (4 per 28 days) - waiting on approval letter PA submitted to [employer] through [facility] for Kishoreermelinda (4 per 28 days) documented in this encounter Plan of Treatment Not on file documented as of this encounter Visit Diagnoses Not on filedocumented in this encounter Care Teams Admissions Officer Relationship Specialty Start Date End Date Lanre Parekh DO PCP - General Family Medicine 01/23/19 documented as of this encounter
--- OUTSIDE RECORDS SUMMARY | 2024-07-09 09:51 | XMS_ITS | Encounter Summary ---
Author Organization 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 It has not been cleared or approved by the FDA. This assay has been validated pursuant to the CLIA regulations and is used for clinical purposes. 6 MMP 921 <5,700 pmol/8x10( 8)RBC [facility] Comment: These results are useful in [...] analytical performance characteristics have been determined by [facility]. It has not been cleared or approved by the FDA. This assay has been validated pursuant to the CLIA regulations and is used for clinical purposes. 03/07/2022 3:23 PM CDT 03/07/2022 3:24 PM CDT Narrative [facility] - 03/11/2022 2:35 PM CDT FASTING:NO FASTING: NO Eliana Quevedo MD LAB BLOOD ORDERABLE S Final Result [facility] [address] [place] [address] * COPY(IES) SENT TO: (03/07/2022 3:23 PM CDT) COPY(IES) SENT TO: [employer] Comment: ?[facility] ?COPY TO ACCOUNT ?[address] [facility] [address] [address] ?[place] [address] 03/07/2022 3:23 PM CDT 03/07/2022 3:24 PM [...] T-lymphocytes. For additional information, please refer to [email or web address] (This link is being provided for informational/ educational purposes only.) ? Your request to have a duplicate copy faxed has been acknowledged. ?Queued to: ??[id number] Blood 03/07/2022 3:23 PM CDT 03/07/2022 3:24 PM CDT [facility] - 03/11/2022 2:35 PM CDT FASTING:NO FASTING: NO Eliana Quevedo MD LAB BLOOD ORDERABLE S Final Result [facility] [address] [place] [address] * Hepatic function panel (03/07/2022 3:23 PM [...] BLOOD ORDERABLE S Final Result [facility] [address] [place] [address] * (ABNORMAL) CBC with auto differential (03/07/2022 [...] BLOOD ORDERABLE S Final Result [facility] [address] [place] [address] documented in this encounter Visit Diagnoses Diagnosis Crohn's disease of both small and large intestine with intestinal obstruction (HCC)- Primary documented in this encounter Care Teams Tape Calender Relationship Specialty Start Date End Date Lanre Parekh DO PCP - General Family Medicine 01/23/19 documented as of this encounter
--- OUTSIDE RECORDS SUMMARY | 2024-07-09 09:51 | XMS_ITS | Encounter Summary ---
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 Done on 6-MP 50mg daily. Current wt:81.6kg. Reviewed by LUNCH TRUCK DRIVER Veronica-appropriate metabolites. No changes at this time. Patient notified. documented in this encounter Plan of Treatment Not on file documented as of this encounter Visit Diagnoses Not on filedocumented in this encounter Care Teams Shellfish Bed Worker Relationship Specialty Start Date End Date Lanre Parekh DO PCP - General Family Medicine 01/23/19 documented as of this encounter
--- OUTSIDE RECORDS SUMMARY | 2024-07-09 09:52 | XMS_ITS | Encounter Summary ---
Author Organization [facility] Address [address] [place] [address] Care Team Providers Care Inspector Printed Circuit Boards Name Role Phone Lanre Parekh Primary Care Provide r Reason for Visit * Auth/Cert Specialty Diagnoses / Procedures Referred By Contac t Referred To Contact Diagnoses Crohn's disease of both small and large intestine without complication (CMS/HCC) (HCC) Crohn's disease of both small and large intestine without complication (CMS/HCC) (HCC) [K50.80] Procedures HI COLONOSCOPY FLX DX W/COLLJ SPEC WHEN PFRMD COLONOSCOPY Referral ID Status Reason Start Date Expiration Date Visits Re quested Visits Authorized [id number] 1 1 Encounter Details Date Type Department Care Team (Late st Contact Info) Description 01/23/2022 11:05 AM CDT Anesthesia Event [facility] Endoscopy [address] [place] [address] [place] [address] [place] [address] Vita Jaimes CRNA [address] [place] [address] Anesthesia Record Procedure Summary Procedure Name Responsible [...] on file 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 Gender Identity Not on file Sexual Orientation Not on file documented as of this encounter OR Notes * Anesthesia Postprocedure Evaluation - Catrachito Lyons MD - 01/23/2022 12:31 PM CDT Patient: Nic Teran Procedure Summary Date: 01/23/22 Room / Location: [facility] ENDOSCOPY ROOM [facility] ENDOSCOPY Anesthesia Start: 1105 Anesthesia Stop: 1130 [...] 100 mg tablet 01/17/22 -- Simona Marie, COLLEGE ADMINISTRATOR Take 1/2 or 1 tablet ONE hour [...] Medication protocol when under care of a ORAL PATHOLOGIST Planned anesthesia: General Informed Consent: Anesthesia plan [...] mL/hr documented in this encounter Care Teams Inspector Printed Circuit Boards Relationship Specialty Start Date End Date Lanre Parekh DO PCP - General Family Medicine 01/23/19 documented as of this encounter
--- OUTSIDE RECORDS SUMMARY | 2024-07-09 09:52 | XMS_ITS | Encounter Summary ---
Author Organization [facility] Address [address] [place] [address] Care Team Providers Care Oracle Drm Consultant Name Role Phone Lanre Parekh Primary Care Provide r Reason for Visit * Auth/Cert Specialty Diagnoses / Procedures Referred By Contac t Referred To Contact Diagnoses Crohn's disease of both small and large intestine without complication (CMS/HCC) (HCC) Crohn's disease of both small and large intestine without complication (CMS/HCC) (HCC) [K50.80] Procedures WI COLONOSCOPY FLX DX W/COLLJ SPEC WHEN PFRMD COLONOSCOPY Referral ID Status Reason Start Date Expiration Date Visits Re quested Visits Authorized [id number] 1 1 Encounter Details Date Type Department Care Team (Late st Contact Info) Description 01/23/2022 10:30 AM CDT - 01/23/2022 11:00 AM CDT Surgery [facility] Endoscopy [address] [place] [address] Eliana Quevedo MD [address] [address] [place] [address] COLONOSCOPY Surgery Details Date/Time Status Location OR Service Patient Class Case Class Case Type Trauma Case? 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 Room: [facility] ENDOSCOPY ROOM 01 Note Status: [...] scope was passed under direct vision. The [id number] was introduced through the anus and advanced [...] hours - Please call the Nurse Coordinator: [phone] After hours, evening, nights, weekends and holidays - Please call the hospital scoop operator at and ask for the GI fellow program management professional. Attending Participation: I personally performed the entire [...] Male Attending MD: Eliana Quevedo M.D. Room: [facility] ENDOSCOPY ROOM 01 Note Status: [...] The scope was passed under direct vision.The [id number] was introduced through the anusand advanced to [...] business hours - Please call theNurse Coordinator: [phone] After hours, evening, nights, weekends and holidays- Please call the hospital scoop operator at and ask for the GI fellow program management professional. Attending Participation: I personally performed the entire [...] BLOOD ORDERABLE S Final Result [facility] [address] [facility]. Department of [facility] [address] documented in this encounter Visit Diagnoses Diagnosis [...] 12/31 documented in this encounter Care Teams Oracle Drm Consultant Relationship Specialty Start Date End Date Lanre Parekh DO PCP - General Family Medicine 01/23/19 documented as of this encounter
--- OUTSIDE RECORDS SUMMARY | 2024-07-09 09:52 | XMS_ITS | Encounter Summary ---
Author Organization [facility] Address [address] [place] [address] Phone Care Team Providers Care Farm Worker Name Role Phone Lanre Parekh Primary Care Provide r Reason for Visit * Reason Onset Date Comments Metabolites Results 01/23/2022 Encounter Details Date Type Department Care Team (Late st Contact Info) Description 01/23/[address] 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
--- OUTSIDE RECORDS SUMMARY | 2024-07-09 09:53 | XMS_ITS | Encounter Summary ---
Author Organization [facility] Address [address] [place] [address] Phone Care Team Providers Care Cemetery Laborer Name Role Phone Lanre Parekh Primary Care Provide r Encounter Details Date Type Department Care Team (Late st Contact Info) Description 10/13/2021 9:00 AM CDT Office Visit [facility] Gastroenterology [address] [facility] Medicine 12th [place] [address] [place] [address] Eliana Quevedo MD [address] [place] [address] Crohn's disease of both small and large [...] file 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 Assessment: Nic is a atwnya 30-year-old gentleman with a past medical history [...] 10/14/2021 08:49 AM Eliana Quevedo MD, MPH bankruptcy assistant Division of Gastroenterology AG/jeni documented in this encounter Plan of Treatment Not on file documented as of this encounter Visit Diagnoses Diagnosis Crohn's disease of both small and large intestine with intestinal obstruction (HCC)- Primary High risk medications (not anticoagulants) long-term use Encounter for long-term (current) use of other medications documented in this encounter Care Teams Cemetery Laborer Relationship Specialty Start Date End Date Lanre Parekh DO PCP - General Family Medicine 01/23/19 documented as of this encounter
--- OUTSIDE RECORDS SUMMARY | 2024-07-09 09:53 | XMS_ITS | Encounter Summary ---
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 Per Dr. Quevedo, would like to check pt's metabolites. Order placed for Thiopurine Metabolites to be drawn at pt's local [facility] location. [facility] portal msg sent to pt this afternoon, [...] (12/12/2021 9:07 AM CDT) COPY(IES) SENT TO: [facility] Comment: ?[facility] ?COPY TO ACCOUNT ?[id number] [facility] [address] ?[place] [address] 12/12/2021 9:07 AM CDT 12/12/2021 9:08 AM CDT us Eliana Quevedo MD LAB BLOOD ORDERABLE S Final Result [facility] * (ABNORMAL) Thiopurine metabolites (12/12/2021 9:07 AM CDT) 6-TG, bld 481(H) 235 - 400 pmol/8x10( 8)RBC [facility] Comment: This test was developed and its analytical performance characteristics have been determined by [employer]. It has not been cleared or approved by the FDA. This assay has been validated pursuant to the CLIA regulations and is used for clinical purposes. 6 MMP <500 <5700 pmol/8x10( 8)RBC [facility] Comment: These results are useful [...] analytical performance characteristics have been determined by [employer]. It has not been cleared or approved by the FDA. This assay has been validated pursuant to the CLIA regulations and is used for clinical purposes. Blood specimen (specimen) 12/12/2021 9:07 AM CDT 12/12/2021 9:08 AM CDT us Eliana Quevedo MD LAB BLOOD ORDERABLE S Final Result [facility] [address] [place] [address] documented in this encounter Visit Diagnoses Diagnosis Crohn's disease of both small and large intestine without complication (CMS/HCC) (HCC)- Primary History of high risk medication treatment documented in this encounter Care Teams Asset Recovery Specialist Relationship Specialty Start Date End Date Lanre Parekh DO PCP - General Family Medicine 01/23/19 documented as of this encounter
--- OUTSIDE RECORDS SUMMARY | 2024-07-09 09:53 | XMS_ITS | Encounter Summary ---
Author Organization [facility] Address [address] [place] [address] Phone Care Team Providers Care Compliance Auditor Name Role Phone Lanre Parekh Primary Care Provide r Encounter Details Date Type Department Care Team (Late st Contact Info) Description 08/22/2021 Orders Only [facility] Gastroenterology [address] 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 ?Queued to: ??[id number] Blood specimen (specimen) 12/05/2021 7:54 AM CDT 12/05/2021 7:54 AM CDT us Eliana Quevedo MD LAB BLOOD ORDERABLE S Final Result [facility] [address] [place] [address] documented in this encounter Visit Diagnoses Diagnosis Crohn's disease of both small and large intestine with intestinal obstruction (HCC)- Primary High risk medications (not anticoagulants) long-term use Encounter for long-term (current) use of other medications documented in this encounter Care Teams Compliance Auditor Relationship Specialty Start Date End Date Lanre Parekh DO PCP - General Family Medicine 01/23/19 documented as of this encounter
--- OUTSIDE RECORDS SUMMARY | 2024-07-09 09:53 | XMS_ITS | Encounter Summary ---
Author Organization [facility] Address [address] [place] [address] Phone Care Team Providers Care Continuity Coordinator Name Role Phone Lanre Parekh DO Primary Care Provide r Reason for Visit * Consultation (Routine) - Closed Specialty Diagnoses / Procedures Referred By Renay rivero Referred To Contact Urology Diagnoses Scrotal pain Lanre Parekh DO [address] [place] [address] Phone: tel: fax: [facility] (All Locations) Referral ID Status Reason Start Date Expiration Date V isits Requested Visits Authorized [id number] Closed Specialty Services Required 12/29/2021 01/28/2023 99 99 Encounter Details Date Type Department Care Team (Late st Contact Info) Description 01/17/2022 1:00 PM CDT Office Visit [facility] Urology [address] [facility] Medicine 11th [place] [address] [place] [address] Simona Carrillo NP [address] [place] [address] Scrotal pain (Primary Dx); Erectile [...] on file 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 Cervical [...] for ED including PDE5, EDIE, penile rings, [address], penile injections, shockwave therapy, and IPP. He [...] CDT) Testosterone 327 250 - 827 ng/dL [facility] Blood specimen (specimen) 01/17/2022 2:44 PM CDT 01/17/2022 2:44 PM CDT Kongkeo Thiky Gerardo LITIGATION COUNSEL LAB BLOOD ORDERABLES Fi nal Result [facility] [address] [facility] [place] [address] * (ABNORMAL) POCT urinalysis dipstick (01/17/2022 1:23 PM CDT) Glucose, ur, POC Negative Negative MG/DL Ketones, ur, POC Negative Negative Blood, ur, POC Negative Negative pH, ur, POC 6.0 5.0 - 8.0 Protein, ur, POC Trace(A) Negative Nitrite, ur, POC Negative Negative Leukocytes, ur, POC Negative Negative Lot Number 0 Urine 01/17/2022 1:23 PM CDT Simona Carrillo LITIGATION COUNSEL POINT OF CARE TEST ALICJA VALLEJO Final Result documented in this encounter Visit Diagnoses Diagnosis Scrotal pain- Primary Unspecified disorder of male genital organs Erectile dysfunction, unspecified erectile dysfunction type documented in this encounter Orders Outpatient Referral Count Last Ordered Date Fir st Ordered Date AMB REFERRAL TO UROLOGY 1 01/17/2022 documented in this encounter Care Teams Continuity Coordinator Relationship Specialty Start Date End Date Lanre Parekh DO PCP - General Family Medicine 01/23/19 documented as of this encounter
--- OUTSIDE RECORDS SUMMARY | 2024-07-09 09:53 | XMS_ITS | Encounter Summary ---
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 Gender Identity Not on file Sexual [...] ?[facility] ?COPY TO ACCOUNT ?[address] ?[place] [address] 01/17/2022 2:45 PM CDT 01/17/2022 2:45 PM CDT Eliana Quevedo MD LAB BLOOD ORDERABLE S Final Result Performing Organization Address [facility] Co de Phone Number [facility] * Thiopurine metabolites (01/17/2022 2:45 PM CDT) 6-TG, bld 325 235 - 400 pmol/8x10( 8)RBC [employer] Comment: This test was developed and its analytical performance characteristics have been determined by [employer] It has not been cleared or approved by the FDA. This assay has been validated pursuant to the CLIA regulations and is used for clinical purposes. 6 MMP <500 <5700 pmol/8x10( 8)RBC [facility] Comment: These results are useful [...] analytical performance characteristics have been determined by [employer] It has not been cleared or approved by the FDA. This assay has been validated pursuant to the CLIA regulations and is used for clinical purposes. Blood specimen (specimen) 01/17/2022 2:45 PM CDT 01/17/2022 2:45 PM CDT Eliana Quevedo MD LAB BLOOD ORDERABLE S Final Result Performing Organization Address City/[facility]/ZIP Co de Phone Number [facility] [address] [place] [address] documented in this encounter Visit Diagnoses Diagnosis [...] as of this encounter Care Teams Director Of In Service Education Relationship Specialty Start Date End Date Lanre Parekh DO PCP - General Family Medicine 01/23/19 documented as of this encounter
--- OUTSIDE RECORDS SUMMARY | 2024-07-09 09:53 | XMS_ITS | Encounter Summary ---
Author Organization [facility] Address [address] [place] [address] Care Team Providers Care Chemical Cell Changer Name Role Phone Lanre Parekh Primary Care Provide r Reason for Visit * Auth/Cert Specialty Diagnoses / Procedures Referred By Contac t Referred To Contact Diagnoses Crohn's disease of both small and large intestine without complication (CMS/HCC) (HCC) Crohn's disease of both small and large intestine without complication (CMS/HCC) (HCC) [K50.80] Procedures PA COLONOSCOPY FLX DX W/COLLJ SPEC WHEN PFRMD COLONOSCOPY Referral ID Status Reason Start Date Expiration Date Visits Re quested Visits Authorized [id number] 1 1 Encounter Details Date Type Department Care Team (Late st Contact Info) Description 01/23/2022 9:29 AM CDT - 01/23/2022 12:18 PM CDT Hospital Encounter 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 09/13/20 lEiana Quevedo MD colestipoL (COLESTID) 1 gram tablet [...] Male Attending MD: Eliana Quevedo M.D. Room: [facility] ENDOSCOPY ROOM 01 Note Status: Finalized [...] scope was passed under direct vision. The [id number] was introduced through the anus and advanced [...] hours - Please call the Nurse Coordinator: [phone] After hours, evening, nights, weekends and holidays - Please call the hospital hair rooting machine operator at and ask for the GI fellow construction project coordinator. Attending Participation: I personally performed the entire [...] 10:59 AM CDT ENDOSCOPY LAB Patient Name: Nci Teran Procedure Date: 01/23/2022 10:59 AM Date of : 1990 Admit Type: Outpatient Age: 31 Gender: Male Attending MD: Eliana Quevedo M.D. Room: [facility] ENDOSCOPY ROOM 01 Note Status: Finalized [...] The scope was passed under direct vision.The [id number] was introduced through the anusand advanced to [...] business hours - Please call theNurse Coordinator: [phone] After hours, evening, nights, weekends and holidays- Please call the hospital hair rooting machine operator at and ask for the GI fellow construction project coordinator. Attending Participation: I personally performed the entire [...] LAB BLOOD ORDERABLE S Final Result [facility] [address] [facility] [place] [address] documented in this encounter Visit [...] 12/31 documented in this encounter Care Teams Chemical Cell Changer Relationship Specialty Start Date End Date Lanre Parekh DO PCP - General Family Medicine 01/23/19 documented as of this encounter
--- OUTSIDE RECORDS SUMMARY | 2024-07-09 09:53 | XMS_ITS | Encounter Summary ---
Author Organization [facility] Address [address] [place] [address] Phone Care Team Providers Care Trader Name Role Phone Lanre Parkeh Primary Care Provide r Encounter Details Date Type Department Care Team (Late st Contact Info) Description 06/07/[address] Medical Office [address] [place] [address] Fernando Mckeon MD [address] [address] Social History Tobacco Use Types [...] file Legal Sex Male 11:11 PM PRODUCT DEMONSTRATOR Gender Identity Not on file Sexual Orientation [...] Eric Moss MA - 06/07/2021 12:44 PM PRODUCT DEMONSTRATOR I have sent the information to patient via [email or web address]. I have sent refill for Vitamin D2 to his pharmacy. UCT DEMONSTRATOR * Telephone Encounter - Eric Moss MA - 06/07/2021 12:39 PM PRODUCT DEMONSTRATOR ----- Message from Fernando Mckeon MD sent at 06/07/2021 11:41 AM PRODUCT DEMONSTRATOR ----- Ensure he has a script renewed for 50K ergo Q 2 weeks . Otherwise let patient know labs were wnl. UCT DEMONSTRATOR documented in this encounter Plan of Treatment Not on file documented as of this encounter Visit Diagnoses Not on filedocumented in this encounter Care Teams Trader Relationship Specialty Start Date End Date Lanre Parekh DO PCP - General Family Medicine 01/23/19 documented as of this encounter
--- OUTSIDE RECORDS SUMMARY | 2024-07-09 09:54 | XMS_ITS | Encounter Summary ---
Author Organization [facility] Address [address] [place] [address] Phone Care Team Providers Care Regulator Operator Name Role Phone Lanre Parekh Primary Care Provide r Encounter Details Date Type Department Care Team (Late st Contact Info) Description 05/30/2021 3:20 PM BUSINESS SERVICES ASSOCIATE Lab [facility] Endocrinology Metabolism and Lipid [address] [facility] Medicine 5th [place] [address] [place] [address] Low bone mass Social History [...] file Legal Sex Male 11:11 PM BUSINESS SERVICES ASSOCIATE Gender Identity Not on file Sexual Orientation Not on file documented as of this encounter Plan of Treatment Not on file documented as of this encounter Procedures Procedure Name Priority Date/Time Associated Diagnosis Comments VITAMIN D 25 HYDROXY Routine 05/30/2021 3:32 PM BUSINESS SERVICES ASSOCIATE Low bone mass PTH Routine 05/30/2021 3:32 PM BUSINESS SERVICES ASSOCIATE Low bone mass COMPREHENSIVE METABOLIC PANEL Routine 05/30/2021 3:32 PM BUSINESS SERVICES ASSOCIATE Low bone mass documented in this encounter Results * Vitamin D 25 hydroxy (05/30/2021 3:32 PM BUSINESS SERVICES ASSOCIATE) Pathologist [facility] Vitamin D 31.8 30.0 - 100.0 ng/mL [facility] Comment: VITAMIN D DEFICIENCY = LESS THAN or EQUAL TO 20 ng/mL VITAMIN D INSUFFICIENCY = GREATER THAN 20 AND LESS THAN 30 ng/mL RECOMMENDED NORMAL RANGE = 30-100 ng/mL Blood specimen (specimen) 05/30/2021 3:32 PM BUSINESS SERVICES ASSOCIATE 05/30/2021 3:54 PM BUSINESS SERVICES ASSOCIATE Fernando Mckeon MD LAB BLOOD ORDERABLES Final Resu lt Performing Organization Address [facility] Co de Phone Number [facility] * PTH (05/30/2021 3:32 PM BUSINESS SERVICES ASSOCIATE) Pathologist [facility] Parathyroid Hormone 26.8 15.0 - 65.0 pg/mL [facility] Blood specimen (specimen) 05/30/2021 3:32 PM BUSINESS SERVICES ASSOCIATE 05/30/2021 3:54 PM BUSINESS SERVICES ASSOCIATE Fernando Mckeon MD LAB BLOOD ORDERABLES Final Resu lt Performing Organization Address [facility] Co de Phone Number [place] * (ABNORMAL) Comprehensive metabolic panel (05/30/2021 3:32 PM BUSINESS SERVICES ASSOCIATE) Pathologist [facility] Total Protein 7.9 6.1 - 8.4 g/dL [...] 05/16/21. Blood specimen (specimen) 05/30/2021 3:32 PM BUSINESS SERVICES ASSOCIATE 05/30/2021 3:54 PM BUSINESS SERVICES ASSOCIATE us Fernando Mckeon MD LAB BLOOD ORDERABLES Final Resu lt [facility] documented in this encounter Visit Diagnoses Diagnosis Low bone mass documented in this encounter Care Teams Regulator Operator Relationship Specialty Start Date End Date Lanre Parekh DO PCP - General Family Medicine 01/23/19 documented as of this encounter
--- OUTSIDE RECORDS SUMMARY | 2024-07-09 09:54 | XMS_ITS | Encounter Summary ---
Author Organization [facility] Address [address] [place] [address] Phone Care Team Providers Care Land Leasing Examiner Name Role Phone Lanre Parekh Primary Care Provide r Reason for Visit * Reason Comments Osteoporosis * Diagnostic Imaging (Routine) - Closed Specialty Diagnoses / Procedures Referred By Contac t Referred To Contact Bone Health Diagnoses Low bone mass Procedures Dexa Axial Skeleton Bone Density 1 or 2 Site Fernando Mckeon MD Phone: tel: fax: [facility] (All Locations) Referral ID Status Reason Start Date Expiration Date Visits Re quested Visits Authorized [id number] Closed 05/19/2021 06/18/2022 5 5 Encounter Details Date Type Department Care Team (Late st Contact Info) Description 05/30/2021 2:10 PM NEWS INTERNSHIP Clinical Support [facility] [address] [place] [address] Advanced Medicine 5th [place] [address] [place] [address] Low bone mass Social History Tobacco Use [...] on file Legal Sex Male 11:11 PM NEWS INTERNSHIP Gender Identity Not on file Sexual Orientation Not on file documented as of this encounter Plan of Treatment Not on file documented as of this encounter Procedures Procedure Name Priority Date/Time Associated Diagnosis Comments DEXA AXIAL SKELETON BONE DENSITY 1 OR MORE SITES Schedule Routine, Read Routine (OP Routine) 05/30/2021 2:43 PM NEWS INTERNSHIP Low bone mass documented in this encounter Results * Dexa Axial Skeleton Bone Density 1 or 2 Site (05/30/2021 2:43 PM NEWS INTERNSHIP) Anatomical Region Laterality Modality Body N/A Radiographic Nancy ging Narrative 05/31/2021 11:27 AM NEWS INTERNSHIP Patient Name: Nic Teran Date of : 1990 Date of scan: 05/30/2021 Bone mineral density was performed on a [employer] Discovery Densitometer. ?? Based on machine cross-calibration [...] by the International Society of Clinical Densitometry. [id number] Fernando Mckeon MD IMG DXA PROCEDURES Final Result documented in this encounter Visit Diagnoses Diagnosis Low bone mass documented in this encounter Care Teams Land Leasing Examiner Relationship Specialty Start Date End Date Lanre Parekh DO PCP - General Family Medicine 01/23/19 documented as of this encounter
--- OUTSIDE RECORDS SUMMARY | 2024-07-09 09:54 | XMS_ITS | Encounter Summary ---
Author Organization [facility] Address [address] [place] [address] Phone Care Team Providers Care Yarn Mercerizer Operator Helper Name Role Phone Lanre Parekh Primary Care Provide r Reason for Visit * Reason Onset Date Comments F/u re: humira level & safety labs due Encounter Details Date Type Department Care Team (Late st Contact Info) Description 03/09/2021 Telephone [facility] Gastro[facility]ology [address] [facility] Advanced Medicine 8th [place] [address] [place] [address] Mame Landrum LPN F/u re: humira [...] on file Legal Sex Male 11:11 PM ACCOUNTANT PROPERTY Gender Identity Not on file Sexual Orientation [...] I have placed new standing orders at [facility] for his safety labs, pt is aware that he is due for repeat labs. documented in this encounter Plan of Treatment Not on file documented as of this encounter Visit Diagnoses Not on filedocumented in this encounter Care Teams Yarn Mercerizer Operator Helper Relationship Specialty Start Date End Date Lanre Parekh DO PCP - General Family Medicine 01/23/19 documented as of this encounter
--- OUTSIDE RECORDS SUMMARY | 2024-07-09 09:54 | XMS_ITS | Encounter Summary ---
Author Organization [facility] Address [address] [place] [address] Phone Care Team Providers Care Limousine Driver Name Role Phone Lanre Parekh Primary Care Provide r Encounter Details Date Type Department Care Team (Late st Contact Info) Description 03/08/2021 Orders Only [facility] Gastroenterology [address] [facility] Medicine 8th [place] [address] [place] [address] Mame Landrum LPN History of [...] file Legal Sex Male 11:11 PM FOOD CASHIER Gender Identity Not on file Sexual Orientation Not on file documented as of this encounter Ordered Prescriptions Prescription Sig Dispense Quantity Refills Last Filled Start Date End Date adalimumab (Humira,CF, Pen) 40 mg/0.4 mL pen injector kitIndications:Personal Financial Planner hn's disease of both small and large [...] SENT TO: Routine 08/22/2021 1: 25 PM FOOD CASHIER CBC WITH AUTO DIFFERENTIAL Routine 08/22/2021 1:25 PM FOOD CASHIER Crohn's disease of both small and large intestine with intestinal obstruction (HCC) History of high risk medication treatment COPY(IES) SENT TO: Routine 08/22/2021 1: 20 PM FOOD CASHIER HEPATIC FUNCTION PANEL Routine 08/22/2021 1:20 PM FOOD CASHIER Crohn's disease of both small and large [...] * COPY(IES) SENT TO: (08/22/2021 1:25 PM FOOD CASHIER) COPY(IES) SENT TO: [facility] Comment: ?[facility] ?COPY TO ACCOUNT ?[id number] ?[place] [address] 08/22/2021 1:25 PM FOOD CASHIER 08/22/2021 1:26 PM FOOD CASHIER Narrative [facility] - 08/23/2021 5:29 AM FOOD CASHIER FASTING:NO FASTING: NO us Eliana Quevedo MD LAB BLOOD ORDERABLE S Final Result [facility] * (ABNORMAL) CBC with auto differential (08/22/2021 1:25 PM FOOD CASHIER) WBC 5.7 3.8 - 10.8 Thousand/u L [...] enexa Blood specimen (specimen) 08/22/2021 1:25 PM FOOD CASHIER 08/22/2021 1:26 PM FOOD CASHIER Narrative [facility] - 08/23/2021 5:29 AM FOOD CASHIER FASTING:NO FASTING: NO us Eliana Quevedo MD LAB BLOOD ORDERABLE S Final Result Performing Organization Address City/[facility] Co de Phone Number [facility] [address] [place] [address] * COPY(IES) SENT TO: (08/22/2021 1:20 PM FOOD CASHIER) COPY(IES) SENT TO: [facility] Comment: ?[facility] ?COPY TO ACCOUNT ?[address] ?[place] [address] 08/22/2021 1:20 PM FOOD CASHIER 08/22/2021 1:21 PM FOOD CASHIER Narrative [facility] - 08/23/2021 7:18 AM FOOD CASHIER FASTING:NO FASTING: NO us Eliana Quevedo MD LAB BLOOD ORDERABLE S Final Result [facility] * Hepatic function panel (08/22/2021 1:20 PM FOOD CASHIER) Protein, Total 7.5 6.4 - 8.4 g/dL [...] nexa Blood specimen (specimen) 08/22/2021 1:20 PM FOOD CASHIER 08/22/2021 1:21 PM FOOD CASHIER Narrative [facility] - 08/23/2021 7:18 AM FOOD CASHIER FASTING:NO FASTING: NO us Eliana Quevedo MD LAB BLOOD ORDERABLE S Final Result Performing Organization Address City/[facility]/ZIP Co de Phone Number [facility] [address] [place] [address] * COPY(IES) SENT TO: (04/01/2021 8:12 AM CDT) COPY(IES) SENT TO: [facility] Comment: ?[facility] ?COPY TO ACCOUNT ?[address] ?[place] [address] 04/01/2021 8:12 AM CDT 04/01/2021 8:13 AM CDT us Eliana Quevedo MD LAB BLOOD ORDERABLE S Final Result [facility] * Hepatic function panel (04/01/2021 8:12 AM CDT) Pathologist [facility] Protein, Total 8.2 6.4 - 8.4 g/dL [...] BLOOD ORDERABLE S Final Result [facility] [address] [facility], [place] [address] * (ABNORMAL) CBC with auto differential (04/01/2021 8:12 AM CDT) Pathologist [facility] WBC 8.8 3.8 - 10.8 Thousand/u L [...] BLOOD ORDERABLE S Final Result [facility] [address] [place] [address] documented in this encounter Visit Diagnoses Diagnosis [...] documented as of this encounter Care Teams Limousine Driver Relationship Specialty Start Date End Date Lanre Parekh DO PCP - General Family Medicine 01/23/19 documented as of this encounter
--- OUTSIDE RECORDS SUMMARY | 2024-07-09 09:54 | XMS_ITS | Encounter Summary ---
Author Organization [facility] Address [address] [place] [address] Phone Care Team Providers Care Mechanic Field Service Name Role Phone Lanre Parekh Primary Care Provide r Reason for Visit * Reason Comments Osteopenia Encounter Details Date Type Department Care Team (Late st Contact Info) Description 05/30/2021 2:40 PM MANAGER INTERNATIONAL Office Visit [facility] [address] [facility] 5th [place] [address] [place] [address] Fernando Mckeon MD [address] [address] Low bone mass (Primary Dx) [...] file Legal Sex Male 11:11 PM MANAGER INTERNATIONAL Gender Identity Not on file Sexual Orientation Not on file documented as of this encounter Last Filed Vital Signs Vital Sign Reading Time Taken Comments Blood Pressure - - Pulse - - Temperature - - Respiratory Rate - - Oxygen Saturation - - Inhaled Oxygen Concentration - - Weight 85.3 kg (188 lb) 05/30/2021 2:41 PM MANAGER INTERNATIONAL Height 172.5 cm (5' 7.9 ) 05/30/2021 2:41 PM MANAGER INTERNATIONAL Body Mass Index 28.67 05/30/2021 2:41 PM MANAGER INTERNATIONAL documented in this encounter Patient Instructions * Patient Instructions* Fernando Mckeon MD - 05/30/2021 2:40 PM MANAGER INTERNATIONAL Bone Health Program Discharge and Information Sheet Contact: Call: [phone] or [phone] FAX: [phone] Name: Nic Teran Thank you for choosing the [facility] for consultation about your [...] Calcium, Vitamin D and Excercise - Calcium 9809-8828 mg daily, through a combination of diet and supplements - Vitamin D 2908-7430 IU daily - Weight bearing activity as [...] Up Appointment: Please stop at the front desk representative to make a follow-up appointment in 2 year or call [phone]. Every attempt will be made to schedule [...] to give our office a call at [phone] option # 1. Bone Density Testing: To ensure the best quality of care, we strongly recommend you have all your follow up bone density tests done at our center. Bone density tests cannot be compared between different facilities. If another physician requests a bone density test for you, please let her/him know that your bone density is being monitored by the [facility]. If your other providers have questions or would like a report of your bone density scans, they can contact [facility] [phone] or Medical Records at [phone]. Important! Always remember to stop taking your calcium supplements 24 hours before you are scheduled to have your bone density test at your next visit. If you need to make changes to your follow-up appointment or are running late to your visit at the Bone Health Program, please contact us as soon as possible at [phone] ([facility]), or [phone] ([facility]), or [phone] ([facility]). We work on a very tight schedule and depending on the circumstances it may be necessary to resched ule your appointment if no other time slot is available on the same day. [facility] patient portal allows you to view your medical records, test results, personal information,request prescription renewals, review past appointments, request new ones and securely communicate online with our office. Ask at the front desk receptionist desk about receiving an invite to join [facility] portal. For questions about accessing [facility] patient portal call [phone]. Feel free to visit our web site for further information on medications, diet, exercise and other things you can do to take charge of your bone health: [email or web address] Thank you for choosing the [facility]! GER INTERNATIONAL GER INTERNATIONAL documented in this encounter Progress Notes * [...] low humira doses. Started working out [employer] work out [employer] after being introduced by a friend. Weight, strengthening, conditioning exercise works out 5/7 days. Since starting this exercise regimen he has noted increased energy levels and well begin. . Was taking 50 K twice weekly stopped after prescription ran out. D3 1770-8528 IUs daily . Good dietary calcium intake. [...] Supervised by Dr. Karol Tran, a pediatric college advisor at [facility]. 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 He has 2 children, 3.5 Years and [...] Plan to continue D 50,000 international units [id number] as of now. Continue 2 000 IUs daily . I encouraged the patient to continue his weight-bearing exercises. Thank you for sending your patient to the [facility] Clinic at [facility]. Please let us know if I can be of any more assistance. If you have any questions or concerns please do not hesitate to give us a call. GER INTERNATIONAL documented in this encounter Plan of Treatment Not on file documented as of this encounter Results * (ABNORMAL) Comprehensive metabolic panel (05/30/2021 3:32 PM MANAGER INTERNATIONAL) Total Protein 7.9 6.1 - 8.4 g/dL [...] 05/16/21. Blood specimen (specimen) 05/30/2021 3:32 PM MANAGER INTERNATIONAL 05/30/2021 3:54 PM MANAGER INTERNATIONAL us Fernando Mckeon MD LAB BLOOD ORDERABLES Final Resu lt [facility] * PTH (05/30/2021 3:32 PM MANAGER INTERNATIONAL) Parathyroid Hormone 26.8 15.0 - 65.0 pg/mL [facility] Blood specimen (specimen) 05/30/2021 3:32 PM MANAGER INTERNATIONAL 05/30/2021 3:54 PM MANAGER INTERNATIONAL us Fernando Mckeon MD LAB BLOOD ORDERABLES Final Resu lt [facility] * Vitamin D 25 hydroxy (05/30/2021 3:32 PM MANAGER INTERNATIONAL) Vitamin D 31.8 30.0 - 100.0 ng/mL [facility] Comment: VITAMIN D DEFICIENCY = LESS THAN or EQUAL TO 20 ng/mL VITAMIN D INSUFFICIENCY = GREATER THAN 20 AND LESS THAN 30 ng/mL RECOMMENDED NORMAL RANGE = 30-100 ng/mL Blood specimen (specimen) 05/30/2021 3:32 PM MANAGER INTERNATIONAL 05/30/2021 3:54 PM MANAGER INTERNATIONAL Fernando Mckeon MD LAB BLOOD ORDERABLES Final Resu lt [facility] documented in this encounter Visit Diagnoses Diagnosis Low bone mass- Primary documented in this encounter Care Teams Mechanic Field Service Relationship Specialty Start Date End Date Lanre Parekh DO PCP - General Family Medicine 01/23/19 documented as of this encounter
--- OUTSIDE RECORDS SUMMARY | 2024-07-09 09:54 | XMS_ITS | Encounter Summary ---
Author Organization [facility] Address [address] [place] [address] Care Team Providers Care Decator Operator Name Role Phone Lanre Parekh Primary Care Provide r Encounter Details Date Type Department Care Team (Late st Contact Info) Description 10/01/2020 6:28 AM CDT - 10/01/2020 8:51 AM CDT Hospital Encounter [facility] Endoscopy [address] [place] [address] Eliana Quevedo MD [address] [place] [address] Crohn's disease of both small and large [...] on file Legal Sex Male 11:11 PM WHARF TENDER HEAD Gender Identity Not on file Sexual [...] ask them during your visits. ?? 2016 [employer]. Information is for End User's use only and may not be sold, redistributed or otherwise used for commercial purposes. All illustrations and images included in CareNotes?? are the copyrighted property of [employer]. or [employer]. The above information is an physical education aide only. It is not intended as medical [...] kitIndications:PA approved through [employer] for Humira #[id number] starting 03/12/2020 through 04/11/2021 (2 per 28 [...] Male Attending MD: Eliana Quevedo M.D. Room: [facility] 01 Note Status: Finalized [...] scope was passed under direct vision. The [id number] was introduced through the anus and advanced [...] hospital. Patient also instructed to have a route relief driver to take him home. documented in [...] Male Attending MD: Eliana Quevedo M.D. Room: [facility] 01 Note Status: Finalized [...] The scope was passed under direct vision.The [id number] was introduced through the anusand advanced to [...] BLOOD ORDERABLE S Final Result [facility] [address] [facility] [place] [address] * T-SPOT.TB (10/01/2020 6:52 AM CDT) [facility] T-SPOT.TB Negative SeeBelow CRUZ CELESTE [...] Passed [facility] Z[facility]ALAWCH Comment: Test Performed at: [facility] [place], [place] ??[address] ? NEREIDA FRIED MD,PHD Blood specimen (specimen) 10/01/2020 6:52 AM CDT 10/01/2020 7:06 AM CDT Eliana Quevedo MD LAB MICROBIOLOGY - GENERAL ORDERABLES Final Result Performing Organization Address City/[facility]/ZIP Co de Phone Number [facility] CELE[facility] [address] [facility] Department [place] [address] * (ABNORMAL) Hepatic function panel (10/01/2020 6:52 [...] ORDERABLE S Final Result Performing Organization Address [facility] Co de Phone Number [facility] [address] [facility] Department [place] [address] * (ABNORMAL) CBC with auto differential (10/01/2020 6:52 AM CDT) Pathologist [facility] WBC 5.2 3.8 - 9.9 K/cumm [facility] Hgb 15.3 13.0 - 17.5 g/dL [facility] Hct 45.7 38.9 - 50.3 % [facility] Plt 271 150 - 400 K/cumm [facility] MPV 10.7 9.1 - 12.3 fL [facility] RBC 4.25(L) 4.30 - 5.80 M/cumm [facility] MCV 107.5(H) 81.3 - 96.4 fL [facility] MCH 36.0(H) 27.1 - 33.3 pg CERNER [facility] MCHC 33.5 32.3 - 35.7 g/dL [facility] CV 13.8 11.1 - 14.9 % [facility] RDW SD 55.4(H) 35.7 - 48.1 fL [facility] NRBC abs 0.00 0.00 - 0.01 K/cumm [facility] Blood specimen (specimen) 10/01/2020 6:52 AM CDT 10/01/2020 7:06 AM CDT us Eliana Quevedo MD LAB BLOOD ORDERABLE S Final Result [facility] [address] [facility]. Department [place] [address] documented in this encounter Visit Diagnoses Diagnosis [...] 08/2020 documented in this encounter Care Teams Decator Operator Relationship Specialty Start Date End Date Lanre Parekh DO PCP - General Family Medicine 01/23/19 documented as of this encounter
--- OUTSIDE RECORDS SUMMARY | 2024-07-09 09:54 | XMS_ITS | Encounter Summary ---
Author Organization [facility] Address [address] [place] [address] Phone Care Team Providers Care Loan Operations Specialist Name Role Phone Lanre Parekh Primary Care Provide r Encounter Details Date Type Department Care Team (Late st Contact Info) Description 04/07/2021 8:30 AM CDT Office Visit [facility] Gastroenterology [address] [facility] Medicine 8th [place] [address] [place] [address] Eliana Quevedo MD [address] [place] [address] Crohn's disease of both small and large [...] on file 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
--- OUTSIDE RECORDS SUMMARY | 2024-07-09 09:54 | XMS_ITS | Encounter Summary ---
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
--- OUTSIDE RECORDS SUMMARY | 2024-07-09 09:54 | XMS_ITS | Encounter Summary ---
Author Organization [facility] Address [address] [place] [address] Phone Care Team Providers Care Land Leasing Information Clerk Name Role Phone Lanre Parekh Primary Care Provide r Reason for Referral * Diagnostic Imaging (Routine) - Closed Specialty Diagnoses / Procedures Referred By Contac t Referred To Contact Bone Health Diagnoses Low bone mass Procedures Dexa Axial Skeleton Bone Density 1 or 2 Site Fernando Mckeon MD Phone: tel: fax: [facility] (All Locations) Referral ID Status Reason Start Date Expiration Date Visits Re quested Visits Authorized [id number] Closed 05/19/2021 06/18/2022 5 5 TIVE SERVICES DESIGNER Encounter Details Date Type Department Care Team (Late st Contact Info) Description 05/19/2021 Orders Only [facility] Bone Health [address] [facility] Medical Office [address] [place] [address] Fernando Mckeon MD [address] [place] [address] Low bone mass (Primary Dx) Social [...] on file Legal 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 ?? Based on machine cross-calibration [...] by the International Society of Clinical Densitometry. [id number] Fernando Mckeon MD IMG DXA PROCEDURES Final Result documented in this encounter Visit Diagnoses Diagnosis Low bone mass- Primary Low bone mass documented in this encounter Care Teams Land Leasing Information Clerk Relationship Specialty Start Date End Date Lanre Parekh DO PCP - General Family Medicine 01/23/19 documented as of this encounter
--- OUTSIDE RECORDS SUMMARY | 2024-07-09 09:54 | XMS_ITS | Encounter Summary ---
Author Organization [facility] Healthcare Address [address] [place] [address] Care Team Providers Care Military Professional Name Role Phone Izabella Lanre Man HUMPHREY Primary Care Provide r Encounter Details Date Type Department Care Team (Late st Contact Info) Description 10/01/2020 7:30 AM CDT - 10/01/2020 8:00 AM CDT Surgery [facility] Endoscopy [address] [address] Eliana Quevedo MD [address] [facility] [address] [place], [place] [id number] COLONOSCOPY Surgery Details Date/Time Status Location OR Service Patient Class Case Class Case Type Trauma Case? 10/01/2020 7:[address] 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 ?? 2016 [employer]. Information is for End User's use only and may not be sold, redistributed or otherwise used for commercial purposes. All illustrations and images included in CareNotes?? are the copyrighted property of [employer]. or [employer]. The above information is an hiv/aids care nurse only. It is not intended as medical [...] kitIndications:PA approved through [employer] for Humira #[id number] starting 03/12/2020 through 04/11/2021 (2 per 28 [...] Male Attending MD: Eliana Quevedo M.D. Room: [facility] ENDOSCOPY ROOM 01 Note Status: Finalized Procedure: [...] scope was passed under direct vision. The [id number] was introduced through the anus and advanced [...] hospital. Patient also instructed to have a bulk driver to take him home. documented in [...] Male Attending MD: Eliana Quevedo M.D. Room: [facility] ENDOSCOPY ROOM 01 Note Status: Finalized Procedure: [...] The scope was passed under direct vision.The [id number] was introduced through the anusand advanced to [...] abs 1.7 0.8 - 3.3 K/cumm [facility] Monocyte abs 0.4 0.2 - 0.8 K/cumm [facility] Eosinophil abs 0.1 0.0 - 0.5 K/cumm [facility] Basophil abs 0.0 0.0 - 0.1 K/cumm [facility] Neutrophil pct 57.2 % [facility] Comment: Interpretive Data Percent cell count reference ranges are not reported, since discordance with absolute values may lead to misinterpretation of CBC data. Current Interpretive Data was last revised on 2017. Imm gran pct 0.6 % [facility] Comment: Interpretive Data Percent cell count reference ranges are not reported, since discordance with absolute values may lead to misinterpretation of CBC data. Current Interpretive Data was last revised on 2017. Lymphocyte pct 32.5 % [facility] Comment: Interpretive Data Percent cell count reference ranges are not reported, since discordance with absolute values may lead to misinterpretation of CBC data. Current Interpretive Data was last revised on 2017. Monocyte pct 7.9 % [facility] Comment: Interpretive Data Percent cell count reference ranges are not reported, since discordance with absolute values may lead to misinterpretation of CBC data. Current Interpretive Data was last revised on 2017. Eosinophil pct 1.2 % [facility] Comment: Interpretive Data Percent cell count reference ranges are not reported, since discordance with absolute values may lead to misinterpretation of CBC data. Current Interpretive Data was last revised on 2017. [facility]ophil pct 0.6 % [facility] Comment: Interpretive Data Percent cell count reference ranges are not reported, since discordance with absolute values may lead to misinterpretation of CBC data. Current Interpretive Data was last revised on 2017. Blood specimen (specimen) 10/01/2020 6:52 AM CDT 10/01/2020 7:06 AM CDT us Eliana Quevedo MD LAB BLOOD ORDERABLE S Final Result Performing Organization Address [facility]/ZIP Co de Phone Number [facility] CELE[facility] [address] [place] [address] * T-SPOT.TB (10/01/2020 6:52 AM CDT) [facility] T-SPOT.TB Negative SeeBelow [facility]LE[facility] Comment: Normal [...] Passed [facility]ILL[facility] Comment: Test Performed at: [facility], [place], [place] ??[address] ? NEREIDA FRIED MD,PHD Blood specimen (specimen) 10/01/2020 6:52 AM CDT 10/01/2020 7:06 AM CDT us Eliana Quevedo MD LAB MICROBIOLOGY - GENERAL ORDERABLES Final Result Performing Organization Address City/[facility]/ZIP Co de Phone Number [facility]ILL[facility]AL[facility] [address] [facility] [place] [address] * (ABNORMAL) Hepatic function panel (10/01/2020 6:52 AM CDT) [facility] Bilirubin, total 1.0 0.1 - 1.2 mg/dL [facility] Bilirubin, direct <0.2 0.1 - 0.3 [...] MD LAB BLOOD ORDERABLE S Final Result [facility] [address] [facility] [place] [address] * (ABNORMAL) CBC with auto differential (10/01/2020 6:52 AM CDT) [facility] WBC 5.2 3.8 - 9.9 K/cumm [facility] Hgb 15.3 13.0 - 17.5 g/dL [facility] Hct 45.7 38.9 - 50.3 % [facility] Plt 271 150 - 400 K/cumm [facility] MPV 10.7 9.1 - 12.3 fL [facility] RBC 4.25(L) 4.30 - 5.80 M/cumm [facility] MCV 107.5(H) 81.3 - 96.4 fL [facility] MCH 36.0(H) 27.1 - 33.3 pg [facility] MCHC 33.5 32.3 - 35.7 g/dL [facility] R[facility] CV 13.8 11.1 - 14.9 % [facility] RDW SD 55.4(H) 35.7 - 48.1 fL [facility] NRBC abs 0.00 0.00 - 0.01 K/cumm [facility] Blood specimen (specimen) 10/01/2020 6:52 AM CDT 10/01/2020 7:06 AM CDT us Eliana Quevedo MD LAB BLOOD ORDERABLE S Final Result [facility] [address] [facility]. [place] [address] documented in this encounter Visit Diagnoses Diagnosis [...] 08/2020 documented in this encounter Care Teams Military Professional Relationship Specialty Start Date End Date Lanre Parekh DO PCP - General Family Medicine 01/23/19 documented as of this encounter
--- OUTSIDE RECORDS SUMMARY | 2024-07-09 09:54 | XMS_ITS | Encounter Summary ---
Author Organization [facility] Address [address] [place] [address] Phone Care Team Providers Care Lower School Spanish Teacher Name Role Phone Lanre Parekh Primary Care Provide r Encounter Details Date Type Department Care Team (Late st Contact Info) Description 10/11/2020 Orders Only [facility] Gastroenterology [address] 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
--- OUTSIDE RECORDS SUMMARY | 2024-07-09 09:54 | XMS_ITS | Encounter Summary ---
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 Gender Identity Not on file Sexual Orientation Not on file documented as of this encounter Progress Notes * Shanika Braun - 04/01/2021 1:19 PM CDT PA approved through [employer] #[id number] starting 03/02/2021 through 04/01/2022 (4 per 28 days) PA submitted to [employer] through [facility] for Humira (4 per 28 days) documented in this encounter Plan of Treatment Not on file documented as of this encounter Visit Diagnoses Not on filedocumented in this encounter Care Teams Ultrasonic Solderer Relationship Specialty Start Date End Date Lanre Parekh DO PCP - General Family Medicine 01/23/19 documented as of this encounter
--- OUTSIDE RECORDS SUMMARY | 2024-07-09 09:54 | XMS_ITS | Encounter Summary ---
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 Gender Identity Not on file Sexual Orientation Not on file documented as of this encounter OR Notes * Anesthesia Postprocedure Evaluation - Dejon Ochoa MD - 10/01/2020 8:13 AM CDT Patient: Nic Teran Procedure Summary Date: 10/01/20 Room / Location: [facility] ENDOSCOPY ROOM [facility] ENDOSCOPY Anesthesia Start: 720 Anesthesia [...] PA approved through [employer] for Humira #[id number] starting 03/12/2020 through 04/11/2021 (2 per 28 [...] Medication protocol when under care of a SALES COORDINATOR Planned anesthesia: General Informed Consent: Anesthesia plan [...] mg documented in this encounter Care Teams Soup Mixer Relationship Specialty Start Date End Date Lanre Parekh DO PCP - General Family Medicine 01/23/19 documented as of this encounter
--- OUTSIDE RECORDS SUMMARY | 2024-07-09 09:54 | XMS_ITS | Encounter Summary ---
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 Gender Identity Not on file Sexual [...] ?[facility] GASTRO/HEPAT DIV ?COPY TO ACCOUNT ?[address] ?[place] [address] 02/24/2021 7:30 AM CDT 02/24/2021 7:31 AM CDT Narrative [facility] - 03/06/2021 10:26 AM CDT FASTING:NO FASTING: NO us Eliana Quevedo MD LAB BLOOD ORDERABLE S Final Result [facility] * Adalimumab Level and Anti-Drug Antibody for IBD (02/24/2021 7:30 AM CDT) Adalimumab Level, IBD 9.1 mcg/mL [facility], Adalimumab ADA, IBD <10 <10 AU [facility], Interpretation SEE NOTE [facility], Comment: The [place] [employer] recommends optimal adalimumab trough concentration [...] treating healthcare professional should refer to the film editor's approved labeling for prescribing, warnings, side effects and other important information. Comment SEE NOTE [facility], Comment: This test was developed and its analytical performance characteristics have been determined by [facility]. It has not been cleared or approved by FDA. This assay has been validated pursuant to the CLIA regulations and is used for clinical purposes. For additional information, please refer to https://education.Seniorlink.eleni/faq/CAT613 (This link is being provided for informational/educational purposes only.) Blood specimen (specimen) 02/24/2021 7:30 AM CDT 02/24/2021 7:31 AM CDT Narrative [facility] - 03/06/2021 10:26 AM CDT FASTING:NO FASTING: NO us Eliana Quevedo MD LAB BLOOD ORDERABLE S Final Result [facility], [address] [place] [address] documented in this encounter Visit Diagnoses Diagnosis Crohn's disease of both small and large intestine without complication (CMS/HCC) (HCC)- Primary High risk medications (not anticoagulants) long-term use Encounter for long-term (current) use of other medications documented in this encounter Care Teams Rd Lab Technician Relationship Specialty Start Date End Date Lanre Parekh DO PCP - General Family Medicine 01/23/19 documented as of this encounter
--- OUTSIDE RECORDS SUMMARY | 2024-07-09 09:54 | XMS_ITS | Encounter Summary ---
Author Organization [facility] Address [address] [place] [address] Phone Care Team Providers Care Ash Handler Name Role Phone Lanre Parekh Primary Care Provide r Encounter Details Date Type Department Care Team (Late st Contact Info) Description 03/21/[address] 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
--- OUTSIDE RECORDS SUMMARY | 2024-07-09 09:54 | XMS_ITS | Encounter Summary ---
Author Organization [facility] Address [address] [place] [address] Phone Care Team Providers Care Law Office Assistant Name Role Phone Lanre Parekh DO Primary Care Provide r Encounter Details Date Type Department Care Team (Late st Contact Info) Description 09/20/2020 Documentation [facility] Neuro Sleep [address] [place] [address] 6th [address] [place] [address] Lexi Zuñiga CMA Social History Tobacco Use Types Packs/Day Years Used Date Smoking Tobacco: Never Smokeless Tobacco: Never Alcohol Use Standard Drinks/Week Comments Yes 0 (1 standard drink = 0.6 oz pur e alcohol) wine-rarely Sex and Gender Information Value Date Recorded Sex Assigned at Not on file 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 documented in this encounter Plan of Treatment Not on file documented as of this encounter Visit Diagnoses Not on filedocumented in this encounter Care Teams Law Office Assistant Relationship Specialty Start Date End Date Lanre Parekh DO PCP - General Family Medicine 01/23/19 documented as of this encounter
--- OUTSIDE RECORDS SUMMARY | 2024-07-09 09:55 | XMS_ITS | Encounter Summary ---
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
--- OUTSIDE RECORDS SUMMARY | 2024-07-09 09:55 | XMS_ITS | Encounter Summary ---
Author Organization [facility] Address [address] [place] [address] Phone Care Team Providers Care Industrial Safety Engineer Name Role Phone Izabella Lanre Conway Primary Care Provide r Reason for Referral * (Routine) - Closed Specialty Diagnoses / Procedures Referred By Contsusanne t Referred To Contact Diagnoses JALYN (obstructive sleep apnea) Procedures Miscellaneous DME Davion Samuel NP [address] [place] [address] Phone: tel: fax: Referral ID Status Reason Start Date Expiration Date Visits Re quested Visits Authorized [id number] Closed 09/17/2020 10/17/2021 1 1 Encounter Details Date Type Department Care Team (Late st Contact Info) Description 09/17/2020 8:30 AM CDT Telemedicine [facility] Neuro Sleep [address] [facility] 6th [address] [place] [address] Davion Samuel NP [address] [place] [address] JALYN (obstructive sleep apnea) (Primary Dx) Social History Tobacco Use Types Packs/Day Years Used Date Smoking Tobacco: Never Smokeless Tobacco: Never Alcohol Use Standard Drinks/Week Comments Yes 0 (1 standard drink = 0.6 oz pur e alcohol) wine-rarely Sex and Gender Information Value Date Recorded Sex Assigned at Not on file 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 During the visit, I was located at home office in the [facility] [place] and the patient was located home in [place]. The session started at 8:30 am and [...] in a telephone or video visitduring the [facility]-[address] [place] [address] emergency. After being given an opportunity to [...] Name: NIC TERAN Medical Record Number (MRN): [id number] Date of (): 1990 Encounter Date: 09/17/2020 [...] O2N 89%. APAP 5-14 cm ordered through [facility]. Last seen on 09/12/2019, he was using his PAP with benefits. Mask was making some noise, order written to try new masks at [facility]. Today's f/u was over zoom video. Uses [...] for no apparent reason. Weight is unchanged. [place] sleepiness scale at [facility] 09/22. Denies drowsy driving. 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 We discussed JALYN and its treatments including positive airway pressure, oral prosthesis, surgery, Provent adhesive nasal valves and weight loss. We discussed how untreated JALYN can cause unrefreshing sleep and excessive daytime sleepiness, as well as how it contributes over the roasterman to cardiovascular risk, recalcitrant hypertension and difficulty [...] any questions, feel free to contact me. Dvaion Samuel NP 09/17/2020 8:27 AM documented in this encounter Plan of Treatment Not on file documented as of this encounter Visit Diagnoses Diagnosis JALYN (obstructive sleep apnea)- Primary Obstructive sleep apnea (adult) (pediatric) documented in this encounter Orders General Supply Count Last Ordered Date First Or dered Date MISCELLANEOUS DME 1 09/17/2020 documented in this encounter Care Teams Industrial Safety Engineer Relationship Specialty Start Date End Date Lanre Parekh DO PCP - General Family Medicine 01/23/19 documented as of this encounter
--- OUTSIDE RECORDS SUMMARY | 2024-07-09 09:55 | XMS_ITS | Encounter Summary ---
Author Organization [facility] Address [address] [place] [address] Phone Care Team Providers Care Slide Developer Name Role Phone Lanre Parekh Primary Care Provide r Encounter Details Date Type Department Care Team (Late st Contact Info) Description 08/19/2020 9:45 AM BAKING ASSISTANT Office Visit [facility] Gastroenterology [address] [facility] 8th [place] [address] [place] [address] Eliana Quevedo MD [address] [place] [address] Crohn's disease of both small and large [...] on file Legal Sex Male 11:11 PM BAKING ASSISTANT Gender Identity Not on file Sexual Orientation Not on file documented as of this encounter Last Filed Vital Signs Vital Sign Reading Time Taken Comments Blood Pressure 123/87 08/19/2020 9:56 AM BAKING ASSISTANT Pulse 74 08/19/2020 9:56 AM BAKING ASSISTANT Temperature 36.2 ??C (97.2 ??F) 08/19/2020 9:56 AM CS T Respiratory Rate - - Oxygen Saturation - - Inhaled Oxygen Concentration - - Weight 86.5 kg (190 lb 12.8 oz) 08/19/2020 9:56 AM BAKING ASSISTANT Height 170.2 cm (5' 7 ) 08/19/2020 9:56 AM BAKING ASSISTANT Body Mass Index 29.88 08/19/2020 9:56 AM BAKING ASSISTANT documented in this encounter Patient Instructions * Patient Instructions* Padma Mendoza RN - 08/19/2020 9:45 AM BAKING ASSISTANT Every 3 month safet labs due now and then again in October 2020- orders to patient Keep colonoscopy as scheduled in 09/2020 follow up in office in 6 months NG ASSISTANT NG ASSISTANT documented in this encounter Progress Notes [...] abdominal pain ??? Crohn's disease with complication ([facility]) 12/20/2017 Added automatically from request for surgery [id number] ??? Osteoporosis 12/07/2017 ??? Iritis 12/04/2017 ??? Crohn's disease of both small and large intestine ([facility]) 01/25/2017 Onset: 2004. Phenotype and distribution: Stricturing Primarily involving the ileum with some concern for fistulizing disease though no evidence of fistula penetrating colon lumen during surgery in 2018 Medical therapies: Previously treated with prednisone for at least 2 continuous years, flagyl, Asacol, Azathioprine ([id number]), Remicade ([phone], switched for insurance purposes), Humira ([id number], 6-month insurance interruption, re- initiation 10/2016, with [...] least 2 continuous years, flagyl, Asacol, Azathioprine ([id number]), Remicade ([phone], switched for insurance purposes), Humira ([id number], 6-month insurance interruption, re- initiation 10/2016, with [...] Eliana Quevedo MD at 08/19/2020 10:53 AM BAKING ASSISTANT NG ASSISTANT NG ASSISTANT Associated attestation - Eliana Quevedo MD - 08/19/2020 10:53 AM BAKING ASSISTANT I have seen and examined the patient. [...] Edilberto Matthews MD - 08/19/2020 10:40 AM BAKING ASSISTANT Associated Problem(s): Crohn's disease of both small [...] vaccine -Follows with endocrine for low BMD NG ASSISTANT documented in this encounter Plan of Treatment Not on file documented as of this encounter Results * T-SPOT.TB (08/19/2020 10:45 AM BAKING ASSISTANT) Pathologist [facility] T-SPOT.TB Negative Sujatha [facility] Comment: Normal Value: Negative A negative test [...] test. T-SPOT.TB Panel A Spot Count 0 [facility] T-SPOT.TB Panel B Spot Count 0 [facility] T-SPOT.TB Negative Control Passed [facility] T-SPOT.TB Positive Control Passed [facility] Comment: Test Performed at: [facility] [address] [place] [address] ??[id number] ? NEREIDA FRIED MD,PHD Blood specimen (specimen) 08/19/2020 10:45 AM BAKING ASSISTANT 08/19/2020 4:49 PM BAKING ASSISTANT Eliana Quevedo MD LAB MICROBIOLOGY - GENERAL ORDERABLES Final Result [facility] One [facility] Department [place] [address] documented in this encounter Visit Diagnoses Diagnosis Crohn's disease of both small and large intestine without complication (CMS/HCC) (HCC)- Primary High risk medications (not anticoagulants) long-term use Encounter for long-term (current) use of other medications documented in this encounter Care Teams Slide Developer Relationship Specialty Start Date End Date Lanre Parekh DO PCP - General Family Medicine 01/23/19 documented as of this encounter
--- OUTSIDE RECORDS SUMMARY | 2024-07-09 09:55 | XMS_ITS | Encounter Summary ---
Author Organization [facility] Address [address] [place] [address] Phone Care Team Providers Care Medical Technician Name Role Phone Lanre Parekh Primary Care Provide r Encounter Details Date Type Department Care Team (Late st Contact Info) Description 05/25/2020 Telephone [facility] [address] [facility] Medical Office Building [address] [place] [address] Fernando Mckeon MD [address] [address] Social History Tobacco Use Types Packs/Day Years Used Date Smoking Tobacco: Never Smokeless Tobacco: Never Alcohol Use Standard Drinks/Week Comments Yes 0 (1 standard drink = 0.6 oz pur e alcohol) wine-rarely Sex and Gender Information Value Date Recorded Sex Assigned at Not on file Legal Sex Male 11:11 PM PARAKEET RAISER Gender Identity Not on file Sexual Orientation Not on file documented as of this encounter Miscellaneous Notes * Telephone Encounter - Dina Mota RN - 05/25/2020 12:33 PM CST Images from the original note were not included. Fernando Mckeon MD P [facility] Bone Clinical Pool ?? Tele visit ??Pleas send order for D level and CMP to patient. F/u in ??a yr with a BMD lvm for pt, and sent My Chart message KEET RAISER KEET RAISER documented in this encounter Plan of Treatment Not on file documented as of this encounter Visit Diagnoses Not on filedocumented in this encounter Care Teams Medical Technician Relationship Specialty Start Date End Date Lanre Parekh DO PCP - General Family Medicine 01/23/19 documented as of this encounter
--- OUTSIDE RECORDS SUMMARY | 2024-07-09 09:55 | XMS_ITS | Encounter Summary ---
Author Organization [facility] Address [address] [place] [address] Care Team Providers Care Costume Rental Clerk Name Role Phone Lanre Parekh DO Primary Care Provide r Encounter Details Date Type Department Care Team (Late st Contact Info) Description 08/19/2020 11:00 AM DAIRY CATTLE FARMER Lab [facility] Advanced Medicine ([facility]) [address] [place] [phone] Eliana Quevedo MD [address] [facility] [address] [place] [address] Crohn's disease of both small and large [...] file Legal Sex Male 11:11 PM DAIRY CATTLE FARMER Gender Identity Not on file Sexual Orientation Not on file documented as of this encounter Discharge Disposition Disposition Code Departure Means Destination Discharge to home or self care documented in this encounter Miscellaneous Notes * Result Encounter Note - Eliana Quevedo MD - 08/19/2020 2:13 PM CST CBC and LFTs OK Y CATTLE FARMER documented in this encounter Plan of Treatment Not on file documented as of this encounter Procedures Procedure Name Priority Date/Time Associated Diagnosis Comments T-SPOT.TB Routine 08/19/2020 10:45 AM DAIRY CATTLE FARMER Crohn's disease of both small and large intestine without complication (CMS/HCC) High risk medications (not anticoagulants) long-term use DIFFERENTIAL AUTO Routine 08/19/2020 10: 45 AM DAIRY CATTLE FARMER Crohn's disease of both small and large intestine without complication (CMS/HCC) High risk medications (not anticoagulants) long-term use CBC WITH AUTO DIFFERENTIAL Routine 08/19/2020 10:45 AM DAIRY CATTLE FARMER Crohn's disease of both small and large intestine without complication (CMS/HCC) High risk medications (not anticoagulants) long-term use HEPATIC FUNCTION PANEL Routine 08/19/2020 10:45 AM DAIRY CATTLE FARMER Crohn's disease of both small and large intestine without complication (CMS/HCC) High risk medications (not anticoagulants) long-term use documented in this encounter Results * Differential, auto (08/19/2020 10:45 AM DAIRY CATTLE FARMER) Pathologist [facility] Neutrophil abs 3.1 1.7 - 6.5 K/cumm [facility] Imm gran abs 0.0 0.0 - 0.1 K/cumm [facility] Lymphocyte abs 1.8 0.8 - 3.3 K/cumm [facility] Monocyte abs 0.3 0.2 - 0.8 K/cumm [facility] Eosinophil abs 0.1 0.0 - 0.5 K/cumm [facility] Basophil abs 0.0 0.0 - 0.1 K/cumm [facility] Neutrophil pct 58.0 % [facility] Comment: Interpretive Data Percent cell count reference ranges are not reported, since discordance with absolute values may lead to misinterpretation of CBC data. Current Interpretive Data was last revised on 2017. Imm gran pct 0.4 % [facility] Comment: Interpretive Data Percent cell count reference ranges are not reported, since discordance with absolute values may lead to misinterpretation of CBC data. Current Interpretive Data was last revised on 2017. Lymphocyte pct 35.0 % [facility] Comment: Interpretive Data Percent cell count reference ranges are not reported, since discordance with absolute values may lead to misinterpretation of CBC data. Current Interpretive Data was last revised on 2017. Monocyte pct 5.0 % [facility] Comment: Interpretive Data Percent cell count [...] 2017. Blood specimen (specimen) 08/19/2020 10:45 AM DAIRY CATTLE FARMER 08/19/2020 10:55 AM DAIRY CATTLE FARMER Eliana Quevedo MD LAB BLOOD ORDERABLE S Final Result [facility] One [facility] Department [place] [address] * T-SPOT.TB (08/19/2020 10:45 AM DAIRY CATTLE FARMER) [facility] T-SPOT.TB Negative SeeBel [facility] Comment: Normal Value: Negative A negative test [...] test. T-SPOT.TB Panel A Spot Count 0 [facility] T-SPOT.TB Panel B Spot Count 0 [facility] T-SPOT.TB Negative Control Passed [facility] T-SPOT.TB Positive Control Passed [facility] Comment: Test Performed at: [facility] [place], [place] ??[id number] ? NEREIDA FRIED MD,PHD Blood specimen (specimen) 08/19/2020 10:45 AM DAIRY CATTLE FARMER 08/19/2020 4:49 PM DAIRY CATTLE FARMER Eliana Quevedo MD LAB MICROBIOLOGY - GENERAL ORDERABLES Final Result [facility] Department [place] [address] * (ABNORMAL) CBC with auto differential (08/19/2020 10:45 AM DAIRY CATTLE FARMER) Pathologist [facility] WBC 5.3 3.8 - 9.9 K/cumm [facility] Hgb 14.4 13.0 - 17.5 g/dL [facility] Hct 40.7 38.9 - 50.3 % [facility] Plt 217 150 - 400 K/cumm [facility] MPV 10.5 9.1 - 12.3 fL [facility] RBC 3.95(L) 4.30 - 5.80 M/cumm [facility] MCV 103.0(H) 81.3 - 96.4 fL [facility] MCH 36.5(H) 27.1 - 33.3 pg [facility] MCHC 35.4 32.3 - 35.7 g/dL [facility] RDW CV 13.8 11.1 - 14.9 % [facility] RDW SD 52.7(H) 35.7 - 48.1 fL [facility] NRBC abs 0.00 0.00 - 0.01 K/cumm [facility] Blood specimen (specimen) 08/19/2020 10:45 AM DAIRY CATTLE FARMER 08/19/2020 10:55 AM DAIRY CATTLE FARMER Eliana Quevedo MD LAB BLOOD ORDERABLE S Final Result Performing Organization Address [facility] Co de Phone Number [facility] [place] [address] * (ABNORMAL) Hepatic function panel (08/19/2020 10:45 AM DAIRY CATTLE FARMER) Bilirubin, total 0.4 0.1 - 1.2 mg/dL [facility] Bilirubin, direct <0.2 0.1 - 0.3 mg/dL [facility] Protein, pl 8.6(H) 6.5 - 8.5 g/dL [facility] Albumin 5.0 3.5 - 5.0 g/dL [facility] Alk phos 85 40 - 130 Units/L [facility] ALT 58(H) 7 - 55 Units/L [facility] AST 36 10 - 50 Units/L [facility] Blood specimen (specimen) 08/19/2020 10:45 AM DAIRY CATTLE FARMER 08/19/2020 10:55 AM DAIRY CATTLE FARMER Eliana Quevedo MD LAB BLOOD ORDERABLE S Final Result Performing Organization Address [facility] Co de Phone Number [facility] [place] [address] documented in this encounter Visit Diagnoses Diagnosis Crohn's disease of both small and large intestine without complication (CMS/HCC) (HCC) High risk medications (not anticoagulants) long-term use Encounter for long-term (current) use of other medications documented in this encounter Care Teams Costume Rental Clerk Relationship Specialty Start Date End Date Lanre Parekh DO PCP - General Family Medicine 01/23/19 documented as of this encounter
--- OUTSIDE RECORDS SUMMARY | 2024-07-09 09:55 | XMS_ITS | Encounter Summary ---
Author Organization [facility] Address [address] [place] [address] Phone Care Team Providers Care Retort Firer Name Role Phone Lanre Parekh Primary Care Provide r Encounter Details Date Type Department Care Team (Late st Contact Info) Description 05/25/[address] Medical Office Building [address] [place] [address] Fernando Mckeon MD [address] [address] Social History Tobacco Use Types Packs/Day Years Used Date Smoking Tobacco: Never Smokeless Tobacco: Never Alcohol Use Standard Drinks/Week Comments Yes 0 (1 standard drink = 0.6 oz pur e alcohol) wine-rarely Sex and Gender Information Value Date Recorded Sex Assigned at Not on file Legal Sex Male 11:11 PM SUPERVISOR BRIAR SHOP Gender Identity Not on file Sexual Orientation Not on file documented as of this encounter Miscellaneous Notes * Telephone Encounter - Dina Mota RN - 05/25/2020 12:48 PM CST Sent lab orders RVISOR BRIAR SHOP documented in this encounter Plan of Treatment [...] deficiency documented in this encounter Care Teams Retort Firer Relationship Specialty Start Date End Date Lanre Parekh DO PCP - General Family Medicine 01/23/19 documented as of this encounter
--- OUTSIDE RECORDS SUMMARY | 2024-07-09 09:56 | XMS_ITS | Encounter Summary ---
Author Organization [facility] Address [address] [place] [address] Phone Care Team Providers Care Weigh Boss Name Role Phone Lanre Parekh DO Primary Care Provide r Encounter Details Date Type Department Care Team (Late st Contact Info) Description 01/23/2020 Orders Only [facility] Gastroenterology [address] [facility] 8th [place] [address] [place] [address] Padma Mendoza, JOSH Social History Tobacco Use Types Packs/Day Years Used Date Smoking Tobacco: Never Smokeless Tobacco: Never Alcohol Use Standard Drinks/Week Comments Yes 0 (1 standard drink = 0.6 oz pur e alcohol) wine-rarely Sex and Gender Information Value Date Recorded Sex Assigned at Not on file Legal Sex Male 11:11 PM NON MORSE INTERCEPT TECHNICIAN Gender Identity Not on file Sexual Orientation Not on file documented as of this encounter Plan of Treatment Not on file documented as of this encounter Visit Diagnoses Not on filedocumented in this encounter Care Teams Weigh Boss Relationship Specialty Start Date End Date Lanre Parekh DO PCP - General Family Medicine 01/23/19 documented as of this encounter
--- OUTSIDE RECORDS SUMMARY | 2024-07-09 09:56 | XMS_ITS | Encounter Summary ---
Author Organization [facility] Address [address] [place] [address] Phone Care Team Providers Care Radiologic Technologist Name Role Phone Lnare Parekh Primary Care Provide r Encounter Details Date Type Department Care Team (Late st Contact Info) Description 09/08/2019 Orders Only [facility] Gastroenterology [facility] Medicine 8th [place] [address] [place] [phone] Padma Mendoza, JOSH Crohn's disease of both [...] on file Legal Sex Male 11:11 PM SAWMILL SUPERVISOR Gender Identity Not on file Sexual [...] documented as of this encounter Care Teams Radiologic Technologist Relationship Specialty Start Date End Date Lanre Parekh DO PCP - General Family Medicine 01/23/19 documented as of this encounter
--- OUTSIDE RECORDS SUMMARY | 2024-07-09 09:56 | XMS_ITS | Encounter Summary ---
Author Organization [facility] Address [address] [place] [address] Phone Care Team Providers Care Guest Services Agent Name Role Phone Lanre Parekh DO Primary Care Provide r Eliana Quevedo MD Unavailable [phone] Encounter Details Date Type Department Care Team [...] on file Legal Sex Male 11:11 PM KALSOMINER Gender Identity Not on file Sexual Orientation [...] on filedocumented in this encounter Care Teams Guest Services Agent Relationship Specialty Start Date End Date Lanre Parekh DO PCP - General Family Medicine 01/23/19 Eliana Quevedo MD [address] [place] [address] Referring Physician Gastroenterology 11/07/22 documented as of this encounter
--- OUTSIDE RECORDS SUMMARY | 2024-07-09 09:56 | XMS_ITS | Encounter Summary ---
Author Organization [facility] Address [address] [place] [address] Phone Care Team Providers Care Jailor Name Role Phone Lanre Parekh Primary Care Provide r Reason for Visit * Reason Comments Osteoporosis * Diagnostic Imaging (Routine) - Closed Specialty Diagnoses / Procedures Referred By Renay rivero Referred To Contact Diagnoses Low bone mass Procedures Dexa Axial Skeleton Bone Density 1 or 2 Site Jonathan Pardo MD [address] [place] [address] Phone: tel: fax: [facility] (All Locations) Referral ID Status Reason Start Date Expiration Date Visits Re quested Visits Authorized [id number] Closed 05/12/2019 11/20/2020 1 1 Encounter Details Date Type Department Care Team (Late st Contact Info) Description 05/17/2020 1:10 PM FLUE CLEANER Clinical Support [facility] Advanced Medicine 5th [place] [address] [place] [address] Low bone mass Social History Tobacco Use Types Packs/Day Years Used Date Smoking Tobacco: Never Smokeless Tobacco: Never Alcohol Use Standard Drinks/Week Comments Yes 0 (1 standard drink = 0.6 oz pur e alcohol) wine-rarely Sex and Gender Information Value Date Recorded Sex Assigned at Not on file Legal Sex Male 11:11 PM FLUE CLEANER Gender Identity Not on file Sexual Orientation Not on file documented as of this encounter Plan of Treatment Not on file documented as of this encounter Procedures Procedure Name Priority Date/Time Associated Diagnosis Comments DEXA AXIAL SKELETON BONE DENSITY 1 OR MORE SITES Schedule Routine, Read Routine (OP Routine) 05/17/2020 1:43 PM FLUE CLEANER Low bone mass documented in this encounter Results * Dexa Axial Skeleton Bone Density 1 or 2 Site (05/17/2020 1:43 PM FLUE CLEANER) Anatomical Region Laterality Modality Body N/A Radiographic Nancy ging Narrative 05/21/2020 11:29 AM FLUE CLEANER Patient Name: Nic Teran Date of : 1990 Date of scan: 05/17/2020 Bone mineral density was performed on a WideOrbit Discovery Densitometer. ?? Machine Cross-calibration and Precision [...] by the International Society of Clinical Densitometry. [id number] us Jonathan Pardo MD IMG DXA PROCEDURES Fi nal Result documented in this encounter Visit Diagnoses Diagnosis Low bone mass documented in this encounter Care Teams Jailor Relationship Specialty Start Date End Date Lanre Parekh DO PCP - General Family Medicine 01/23/19 documented as of this encounter
--- OUTSIDE RECORDS SUMMARY | 2024-07-09 09:56 | XMS_ITS | Encounter Summary ---
Author Organization [facility] Address [address] [place] [address] Phone Care Team Providers Care Radiology Transcriptionist Name Role Phone Lanre Parekh DO Primary [...] on file Legal Sex Male 11:11 PM ELECTRONIC WARFARE SPECIALIST Gender Identity Not on file Sexual [...] on filedocumented in this encounter Care Teams Radiology Transcriptionist Relationship Specialty Start Date End Date Lanre Parekh DO PCP - General Family Medicine 01/23/19 documented as of this encounter
--- OUTSIDE RECORDS SUMMARY | 2024-07-09 09:56 | XMS_ITS | Encounter Summary ---
Author Organization [facility] Address [address] [place] [address] Phone Care Team Providers Care Cook Helper Preserves Name Role Phone Lanre Parekh DO Primary Care Provide r Encounter Details Date Type Department Care Team (Late st Contact Info) Description 02/12/2020 Orders Only [facility] Gastroenterology [address] [facility] Medicine 8th [place] [address] [place] [phone] Amena Gao RMA Social History Tobacco Use Types Packs/Day Years Used Date Smoking Tobacco: Never Smokeless Tobacco: Never Alcohol Use Standard Drinks/Week Comments Yes 0 (1 standard drink = 0.6 oz pur e alcohol) wine-rarely Sex and Gender Information Value Date Recorded Sex Assigned at Not on file Legal Sex Male 11:11 PM COMPOSITE MECHANIC Gender Identity Not on file Sexual [...] 11/07/2022 added in this encounter Care Teams Cook Helper Preserves Relationship Specialty Start Date End Date Lanre Parekh DO PCP - General Family Medicine 01/23/19 documented as of this encounter
--- OUTSIDE RECORDS SUMMARY | 2024-07-09 09:56 | XMS_ITS | Encounter Summary ---
Author Organization [facility] Address [address] [place] [address] Phone Care Team Providers Care Exhaust And Muffler Repairer Name Role Phone IzabellaKourtneyLanrepo Conway Primary Care Provide r Reason for Referral * (Routine) - Closed Specialty Diagnoses / Procedures Referred By Renay t Referred To Contact Diagnoses JALYN (obstructive sleep apnea) Procedures Miscellaneous DME Davion Samuel NP [address] [place] [address] Phone: tel: fax: Referral ID Status Reason Start Date Expiration Date Visits Re quested Visits Authorized [id number] Closed 09/15/2019 03/26/2021 1 1 Reason for Visit * Reason Comments Sleep Apnea Encounter Details Date Type Department Care Team (Late st Contact Info) Description 09/12/2019 9:30 AM CDT Office Visit [facility] Neuro Sleep [address] [facility] 6th Floor [address] [place] [address] Davion Samuel NP [address] [place] [address] JALYN (obstructive sleep apnea) (Primary Dx) Social History Tobacco Use Types Packs/Day Years Used Date Smoking Tobacco: Never Smokeless Tobacco: Never Alcohol Use Standard Drinks/Week Comments Yes 0 (1 standard drink = 0.6 oz pur e alcohol) wine-rarely Sex and Gender Information Value Date Recorded Sex Assigned at Not on file Legal Sex Male 11:11 PM NURSES EDUCATOR Gender Identity Not on file Sexual Orientation [...] Name: NIC TERAN Medical Record Number (MRN): [id number] Date of (): 1990 Encounter Date: 09/12/2019 Chief Complaint Nic Teran is a 28 y.o. male seen today to establish care for JALYN. [facility] 04/03/2019. HPI 28 y.o. patient with crohn's dz follows-up for JALYN that was diagnosed on 12/19/18 through his PCP's office. HST through [facility] diagnosis 12/19/18 ( Wt 170 lbs), AHI 5.2, RDI 11.7, AMIRA 0, O2N 89%. APAP 5-14 cm started at [facility]. Uses PAP nightly with benefits. Has [...] during the night for no apparent reason. [place] sleepiness scale today 09/22 which significantly decreased from at [facility]. Denies drowsy driving. 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 We discussed JALYN and its treatments including positive airway pressure, oral prosthesis, surgery, Provent adhesive nasal valves and weight loss. We discussed how untreated JALYN can cause unrefreshing sleep and excessive daytime sleepiness, as well as how it contributes over the [facility] to cardiovascular risk, recalcitrant hypertension and difficulty with weight loss . Plan 1-Mild JALYN -Continue APAP 5-14 cm with all sleep. Try different mask at [facility]: [facility] in 1 year or sooner [...] 09/15/2019 documented in this encounter Care Teams Exhaust And Muffler Repairer Relationship Specialty Start Date End Date Lanre Parekh DO PCP - General Family Medicine 01/23/19 documented as of this encounter
--- OUTSIDE RECORDS SUMMARY | 2024-07-09 09:56 | XMS_ITS | Encounter Summary ---
Author Organization [facility] Address [address] [place] [address] Phone Care Team Providers Care Auto Clutch Rebuilder Name Role Phone Lanre Parekh Primary Care Provide r Encounter Details Date Type Department Care Team (Late st Contact Info) Description 01/19/2020 Orders Only [facility] Gastroenterology [facility] Medicine 8th [place] [address] [place] [address] Padma Mendoza, JOSH Crohn's disease of both [...] on file Legal Sex Male 11:11 PM TAR ROOFER Gender Identity Not on file Sexual Orientation [...] as of this encounter Care Teams Auto Clutch Rebuilder Relationship Specialty Start Date End Date Lanre Parekh DO PCP - General Family Medicine 01/23/19 documented as of this encounter
--- OUTSIDE RECORDS SUMMARY | 2024-07-09 09:56 | XMS_ITS | Encounter Summary ---
Author Organization [facility] Address [address] [place] [address] Phone Care Team Providers Care Warhead Maintenance Specialist Name Role Phone Lanre Parekh DO Primary Care Provide r Encounter Details Date Type Department Care Team (Late st Contact Info) Description 09/05/2019 Orders Only [facility] Gastroenterology [address] [facility] 8th [place] [address] [place] [address] Padma Mendoza, JOSH Social History Tobacco Use Types Packs/Day Years Used Date Smoking Tobacco: Never Smokeless Tobacco: Never Alcohol Use Standard Drinks/Week Comments Yes 0 (1 standard drink = 0.6 oz pur e alcohol) wine-rarely Sex and Gender Information Value Date Recorded Sex Assigned at Not on file Legal Sex Male 11:11 PM MUSIC PROMOTER Gender Identity Not on file Sexual Orientation Not on file documented as of this encounter Plan of Treatment Not on file documented as of this encounter Visit Diagnoses Not on filedocumented in this encounter Care Teams Warhead Maintenance Specialist Relationship Specialty Start Date End Date Lanre Parekh DO PCP - General Family Medicine 01/23/19 documented as of this encounter
--- OUTSIDE RECORDS SUMMARY | 2024-07-09 09:56 | XMS_ITS | Encounter Summary ---
Author Organization [facility] Address [address] [place] [address] Phone Care Team Providers Care Material Worker Name Role Phone Lanre Parekh DO Primary Care Provide r Encounter Details Date Type Department Care Team (Late st Contact Info) Description 05/24/2020 Orders Only [facility] Gastroenterology [address] [facility] 8th [place] [address] [place] [address] Padma Mendoza, JOSH Social History Tobacco Use Types Packs/Day Years Used Date Smoking Tobacco: Never Smokeless Tobacco: Never Alcohol Use Standard Drinks/Week Comments Yes 0 (1 standard drink = 0.6 oz pur e alcohol) wine-rarely Sex and Gender Information Value Date Recorded Sex Assigned at Not on file Legal Sex Male 11:11 PM CHAIRPERSON ANESTHESIOLOGY Gender Identity Not on file Sexual Orientation Not on file documented as of this encounter Plan of Treatment Not on file documented as of this encounter Visit Diagnoses Not on filedocumented in this encounter Care Teams Material Worker Relationship Specialty Start Date End Date Lanre Parekh DO PCP - General Family Medicine 01/23/19 documented as of this encounter
--- OUTSIDE RECORDS SUMMARY | 2024-07-09 09:56 | XMS_ITS | Encounter Summary ---
Author Organization [facility] Address [address] [place] [address] Phone Care Team Providers Care Pens And Pencils Dipper Name Role Phone Lanre Parekh Primary Care Provide r Encounter Details Date Type Department Care Team (Late st Contact Info) Description 09/16/2019 Documentation [facility] Neuro Sleep [address] [place] [address] 6th [address] [place] [address] Lexi Zuñiga CMA Social History Tobacco Use Types Packs/Day Years Used Date Smoking Tobacco: Never Smokeless Tobacco: Never Alcohol Use Standard Drinks/Week Comments Yes 0 (1 standard drink = 0.6 oz pur e alcohol) wine-rarely Sex and Gender Information Value Date Recorded Sex Assigned at Not on file Legal Sex Male 11:11 PM DIRECTOR HOME HEALTH Gender Identity Not on file Sexual Orientation [...] order from ragini dawson, order sent via [employer] to [facility]. documented in this encounter Plan of Treatment Not on file documented as of this encounter Visit Diagnoses Not on filedocumented in this encounter Care Teams Pens And Pencils Dipper Relationship Specialty Start Date End Date Lanre Parekh DO PCP - General Family Medicine 01/23/19 documented as of this encounter
--- OUTSIDE RECORDS SUMMARY | 2024-07-09 09:56 | XMS_ITS | Encounter Summary ---
Author Organization [facility] Address [address] [place] [address] Phone Care Team Providers Care Cutting Department Supervisor Name Role Phone Lanre Parekh Primary Care Provide r Encounter Details Date Type Department Care Team (Late st Contact Info) Description 02/12/2020 11:30 AM CDT Office Visit [facility] Gastroenterology [address] [facility] 8th [place] [address] [place] [address] Eliana Quevedo MD [address] [place] [address] Crohn's disease of small and large intestines [...] on file Legal Sex Male 11:11 PM BEACH LIFEGUARD Gender Identity Not on file Sexual Orientation [...] as order the week of 03/08/2020 at [facility]-order in the [facility] [facility])- copy to patient colonoscopy with [facility] in early 08/2020- Shanika to schedule Procedure(s) closer to that time frame. Feel free to contact her at direct extension [phone]. follow up in office in 6 months [...] fracture documented in this encounter Care Teams Cutting Department Supervisor Relationship Specialty Start Date End Date Lanre Parekh DO PCP - General Family Medicine 01/23/19 documented as of this encounter
--- OUTSIDE RECORDS SUMMARY | 2024-07-09 09:56 | XMS_ITS | Encounter Summary ---
Author Organization [facility] Address [address] [place] [address] Phone Care Team Providers Care Plastics Engineering Teacher Name Role Phone Lanre Parekh Primary Care Provide r Encounter Details Date Type Department Care Team (Late st Contact Info) Description 01/23/2020 Orders Only [facility] Gastroenterology [facility] Medicine 8th [place] [address] [place] [address] Padma Mendoza, JOSH Crohn's disease of small [...] on file Legal Sex Male 11:11 PM AIR COMPRESSOR ENGINEER Gender Identity Not on file Sexual [...] of due week of 03/08/2020(met abolites at [facility]) 132 tablet 01/23/2020 03/26/2020 documented in this [...] documented as of this encounter Care Teams Plastics Engineering Teacher Relationship Specialty Start Date End Date Lanre Parekh DO PCP - General Family Medicine 01/23/19 documented as of this encounter
--- OUTSIDE RECORDS SUMMARY | 2024-07-09 09:56 | XMS_ITS | Encounter Summary ---
Author Organization [facility] Care Team Providers Care Production Sound Mixer Name Role Phone Lanre Parekh DO [...] on file Legal Sex Male 11:11 PM DRILL SETUP OPERATOR Gender Identity Not on file Sexual [...] filedocumented in this encounter Care Teams Production Sound Mixer Relationship Specialty Start Date End Date Lanre Parekh DO PCP - General Family Medicine 01/23/19 documented as of this encounter
--- OUTSIDE RECORDS SUMMARY | 2024-07-09 09:56 | XMS_ITS | Encounter Summary ---
Author Organization [facility] Address [address] [place] [address] Phone Care Team Providers Care Applications Instructor Name Role Phone Lanre Parekh Primary Care Provide r Encounter Details Date Type Department Care Team (Late st Contact Info) Description 05/20/2020 12:20 PM REPAIRER SCREEN CRUSHER Telemedicine [facility] [address] [facility] Advanced Medicine 5th [place] [address] [place] [address] Fernando Mckeon MD [address] [id number] Vitamin D deficiency (Primary Dx) Social History Tobacco Use Types Packs/Day Years Used Date Smoking Tobacco: Never Smokeless Tobacco: Never Alcohol Use Standard Drinks/Week Comments Yes 0 (1 standard drink = 0.6 oz pur e alcohol) wine-rarely Sex and Gender Information Value Date Recorded Sex Assigned at Not on file Legal Sex Male 11:11 PM REPAIRER SCREEN CRUSHER Gender Identity Not on file Sexual Orientation [...] Supervised by Dr. Karol Tran, a pediatric drop hammer set up operator at [facility]. 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 He has 2 children, 3.5 Years and [...] Plan to continue D 50,000 international units [id number] as of now. Patient was to have [...] patient to the [facility]. Please let us know if I can be of any more assistance. If you have any questions or concerns please do not hesitate to give us a call. IRER SCREEN CRUSHER documented in this encounter Plan of Treatment Not on file documented as of this encounter Visit Diagnoses Diagnosis Vitamin D deficiency- Primary documented in this encounter Care Teams Applications Instructor Relationship Specialty Start Date End Date Lanre Parekh DO PCP - General Family Medicine 01/23/19 documented as of this encounter
--- OUTSIDE RECORDS SUMMARY | 2024-07-09 09:56 | XMS_ITS | Encounter Summary ---
Author Organization [facility] Address [address] [place] [address] Phone Care Team Providers Care Fabric Cutter Name Role Phone Lanre Parekh DO Primary Care Provide r Encounter Details Date Type Department Care Team (Late st Contact Info) Description 03/24/2020 Orders Only [facility] Gastroenterology [address] [facility] 8th [place] [address] [place] [address] Padma Mendoza, JOSH Social History Tobacco Use Types Packs/Day Years Used Date Smoking Tobacco: Never Smokeless Tobacco: Never Alcohol Use Standard Drinks/Week Comments Yes 0 (1 standard drink = 0.6 oz pur e alcohol) wine-rarely Sex and Gender Information Value Date Recorded Sex Assigned at Not on file Legal Sex Male 11:11 PM QC MANAGER Gender Identity Not on file Sexual Orientation Not on file documented as of this encounter Plan of Treatment Not on file documented as of this encounter Visit Diagnoses Not on filedocumented in this encounter Care Teams Fabric Cutter Relationship Specialty Start Date End Date Lanre Parekh DO PCP - General Family Medicine 01/23/19 documented as of this encounter
--- OUTSIDE RECORDS SUMMARY | 2024-07-09 09:56 | XMS_ITS | Encounter Summary ---
Author Organization [facility] Address [address] [place] [address] Phone Care Team Providers Care Pay Station Collector Name Role Phone Lanre Parekh Primary Care Provide r Encounter Details Date Type Department Care Team (Late st Contact Info) Description 05/18/2020 Telephone [facility] [address] [facility] Medical Office Building [address] [place] [address] Fernando Mckeon MD [address] [address] Social History Tobacco Use Types Packs/Day Years Used Date Smoking Tobacco: Never Smokeless Tobacco: Never Alcohol Use Standard Drinks/Week Comments Yes 0 (1 standard drink = 0.6 oz pur e alcohol) wine-rarely Sex and Gender Information Value Date Recorded Sex Assigned at Not on file Legal Sex Male 11:11 PM HAND BULLDOZER Gender Identity Not on file Sexual Orientation [...] and how to connect via video through [employer] the dayof the visit. BULLDOZER documented in this encounter Plan of Treatment Not on file documented as of this encounter Visit Diagnoses Not on filedocumented in this encounter Care Teams Pay Station Collector Relationship Specialty Start Date End Date Lanre Parekh DO PCP - General Family Medicine 01/23/19 documented as of this encounter
--- OUTSIDE RECORDS SUMMARY | 2024-07-09 09:56 | XMS_ITS | Encounter Summary ---
Author Organization [facility] Address [address] [place] [address] Care Team Providers Care Vocational Auto Body Instructor Name Role Phone Lanre Parekh DO Primary Care Provide r Encounter Details Date Type Department Care Team (Late st Contact Info) Description 09/02/2019 Orders Only [facility] [address] [address] [facility] [address] Eliana Quevedo MD [address] [facility] [address] [place] [address] Crohn's disease of small and large intestines [...] on file Legal Sex Male 11:11 PM MASH PROCESSING OPERATOR Gender Identity Not on file Sexual Orientation Not on file documented as of this encounter Plan of Treatment Not on file documented as of this encounter Visit Diagnoses Diagnosis Crohn's disease of small and large intestines with complication (HCC) High risk medications (not anticoagulants) long-term use Encounter for long-term (current) use of other medications documented in this encounter Care Teams Vocational Auto Body Instructor Relationship Specialty Start Date End Date Lanre Parekh DO PCP - General Family Medicine 01/23/19 documented as of this encounter
--- OUTSIDE RECORDS SUMMARY | 2024-07-09 09:56 | XMS_ITS | Encounter Summary ---
Author Organization [facility] Address [address] [place] [address] Phone Care Team Providers Care Enamel Dipper Name Role Phone Lanre Parekh Primary Care Provide r Encounter Details Date Type Department Care Team (Late st Contact Info) Description 03/26/2020 Orders Only [facility] Gastroenterology [facility] Medicine 8th [place] [address] [place] [address] Padma Mendoza RN High risk medications (not [...] on file Legal Sex Male 11:11 PM CULLET WASHER Gender Identity Not on file Sexual Orientation [...] - 05/24/2020 12:35 PM CST Appropriate metabolites ET WASHER documented in this encounter Plan of Treatment Not on file documented as of this encounter Procedures Procedure Name Priority Date/Time Associated Diagnosis Comments COPY(IES) SENT TO: Routine 05/19/2020 4: 05 PM CULLET WASHER THIOPURINE METABOLITES Routine 05/19/2020 4:05 PM CULLET WASHER Crohn's disease of both small and large intestine with intestinal obstruction (CMS/HCC) High risk medications (not anticoagulants) long-term use CBC WITH AUTO DIFFERENTIAL Routine 05/19/2020 4:05 PM CULLET WASHER Crohn's disease of both small and large intestine with intestinal obstruction (CMS/HCC) High risk medications (not anticoagulants) long-term use HEPATIC FUNCTION PANEL Routine 05/19/2020 4:05 PM CULLET WASHER Crohn's disease of both small and large intestine with intestinal obstruction (CMS/HCC) High risk medications (not anticoagulants) long-term use documented in this encounter Results * COPY(IES) SENT TO: (05/19/2020 4:05 PM CULLET WASHER) COPY(IES) SENT TO: [facility] Comment: ?[facility] ?COPY TO ACCOUNT ?[id number] [facility] [address] ?[place] [address] 05/19/2020 4:05 PM CULLET WASHER 05/19/2020 4:05 PM CULLET WASHER us Eliana Quevedo MD LAB BLOOD ORDERABLE S Final Result [facility] * Thiopurine metabolites (05/19/2020 4:05 PM CULLET WASHER) 6-TG, bld 331 235 - 400 pmol/8x10( 8)RBC [facility] Comment: This test was developed and its analytical performance characteristics have been determined by [employer]. It has not been cleared or approved by the FDA. This assay has been validated pursuant to the CLIA regulations and is used for clinical purposes. 6 MMP <500 <5700 pmol/8x10( 8)RBC [facility] Comment: These results are useful [...] analytical performance characteristics have been determined by [employer]. It has not been cleared or approved by the FDA. This assay has been validated pursuant to the CLIA regulations and is used for clinical purposes. ? Your request to have a duplicate copy faxed has been acknowledged. ?Queued to: ??[id number] Blood specimen (specimen) 05/19/2020 4:05 PM CULLET WASHER 05/19/2020 4:05 PM CULLET WASHER us Eliana Quevedo MD LAB BLOOD ORDERABLE S Final Result [facility] [address] [place] [address] * (ABNORMAL) Hepatic function panel (05/19/2020 4:05 PM CULLET WASHER) Protein, Total 7.8 6.4 - 8.4 g/dL [facility] Albumin 4.5 3.6 - 5.1 g/dL [...] nexa Blood specimen (specimen) 05/19/2020 4:05 PM CULLET WASHER 05/19/2020 4:05 PM CULLET WASHER us Eliana Quevedo MD LAB BLOOD ORDERABLE S Final Result [facility] [address] [place] [address] * (ABNORMAL) CBC with auto differential (05/19/2020 4:05 PM CULLET WASHER) WBC 5.8 3.8 - 10.8 Thousand/u L [...] enexa Blood specimen (specimen) 05/19/2020 4:05 PM CULLET WASHER 05/19/2020 4:05 PM CULLET WASHER us Eliana Quevedo MD LAB BLOOD ORDERABLE S Final Result [facility] [address] [place] [address] documented in this encounter Visit Diagnoses Diagnosis [...] documented as of this encounter Care Teams Enamel Dipper Relationship Specialty Start Date End Date Luchtefeld, Lanre Man, DO PCP - General Family Medicine 01/23/19 documented as of this encounter
--- OUTSIDE RECORDS SUMMARY | 2024-07-09 09:56 | XMS_ITS | Encounter Summary ---
Author Organization [facility] Address [address] [place] [address] Phone Care Team Providers Care Blockmason Name Role Phone Lanre Parekh Primary Care Provide r Encounter Details Date Type Department Care Team (Late st Contact Info) Description 05/24/2020 Orders Only [facility] Gastroenterology [facility] Medicine 8th [place] [address] [place] [address] Padma Mendoza, JOSH Crohn's disease of both [...] on file Legal Sex Male 11:11 PM ART PSYCHOTHERAPIST Gender Identity Not on file Sexual Orientation Not on file documented as of this encounter Ordered Prescriptions Prescription Sig Dispense Quantity Refills Last Filled Start Date End Date adalimumab (Humira,CF, Pen) 40 mg/0.4 mL pen injector kitIndications:PA approved through [facility] for Humira #[id number] starting 03/12/2020 through 04/11/2021 (2 per 28 [...] labs due the week of 04/30/20 at [facility] Reorder 03/26/2020 05/24/2020 allopurinoL (ZYLOPRIM) 100 mg tabletIndications:Crohn' s disease of both small and large intestine with intestinal obstruction (HCC) Take 1 tablet (100 mg total) by mouth daily Reorder 03/26/2020 05/24/2020 folic acid (FOLVITE) 1 mg tablet Reorder 08/07/2019 05/24/2020 adalimumab (Humira,CF, Pen) 40 mg/0.4 mL pen injector kitIndications:PA approved through [facility] for Humira #[id number] starting 03/12/2020 through 04/11/2021 (2 per 28 days) Inject 0.4 mL (40 mg total) under the skin every 14 (fourteen) days Safety labs required every 3 months for Med refills, due 06/2020 Reorder 04/11/2020 05/24/2020 documented as of this encounter Care Teams Blockmason Relationship Specialty Start Date End Date Lanre Parekh DO PCP - General Family Medicine 01/23/19 documented as of this encounter
--- OUTSIDE RECORDS SUMMARY | 2024-07-09 09:56 | XMS_ITS | Encounter Summary ---
Author Organization [facility] Address [address] [place] [address] Phone Care Team Providers Care Sidehand Name Role Phone Lanre aPrekh Primary Care Provide r Encounter Details Date Type Department Care Team (Late st Contact Info) Description 04/11/2020 Documentation [facility] Gastroenterology [facility] 8th [place] [address] [place] [phone] Shanika Braun Social History Tobacco Use Types Packs/Day Years Used Date Smoking Tobacco: Never Smokeless Tobacco: Never Alcohol Use Standard Drinks/Week Comments Yes 0 (1 standard drink = 0.6 oz pur e alcohol) wine-rarely Sex and Gender Information Value Date Recorded Sex Assigned at Not on file Legal Sex Male 11:11 PM HAIR WORKER Gender Identity Not on file Sexual Orientation Not on file documented as of this encounter Progress Notes * Shanika Braun - 04/11/2020 4:11 PM CDT 04/11/20 - PA approved through [employer] for Humira #[id number] starting 03/12/2020 through 04/11/2021 (2 per 28 days) PA submitted to [employer] for Humira (2 per 28 days) documented in this encounter Plan of Treatment Not on file documented as of this encounter Visit Diagnoses Not on filedocumented in this encounter Care Teams Sidehand Relationship Specialty Start Date End Date Lanre Parekh DO PCP - General Family Medicine 01/23/19 documented as of this encounter
--- OUTSIDE RECORDS SUMMARY | 2024-07-09 09:57 | XMS_ITS | Encounter Summary ---
Author Organization [facility] Healthcare Address [address] [place] [address] Care Team Providers Care Flume Ride Operator Name Role Phone Lanre Parekh DO Primary Care Provide r Encounter Details Date Type Department Care Team (Late st Contact Info) Description 06/26/2019 12:25 PM FOOD COUNSELOR Lab [facility] Advanced Medicine [facility] ([facility]) [address] [place] [phone] Eliana Quevedo MD [address] [place] [address] Crohn's disease of small and large intestines [...] file Legal Sex Male 11:11 PM FOOD COUNSELOR Gender Identity Not on file Sexual Orientation Not on file documented as of this encounter Discharge Disposition Disposition Code Departure Means Destination Discharge to home or self care documented in this encounter Progress Notes * Eliana Quevedo MD - 06/26/2019 12:25 PM CST Increase to 2 tabs 1 day a week, continue 1 tab the other days COUNSELOR documented in this encounter Plan of Treatment Not on file documented as of this encounter Procedures Procedure Name Priority Date/Time Associated Diagnosis Comments THIOPURINE METABOLITES Routine 06/26/2019 12:11 PM FOOD COUNSELOR Crohn's disease of small and large intestines with complication (CMS/HCC) High risk medications (not anticoagulants) long-term use documented in this encounter Results * Thiopurine metabolites (06/26/2019 12:11 PM FOOD COUNSELOR) 6-TG, bld 236 230 - 400 pmol/RBCs [facility] Comment: Interpretive Data Units of Measure are pmol/8x10E8 RBCs Testing performed by: [employer], [place], [place] ??[phone]. Current interpretive data was last revised on 07. 6-MMP, bld <886 0 - 5,699 pmol/RBCs [facility] Comment: Interpretive Data Units of Measure are pmol/8x10E8 RBCs Testing performed by: [employer] [facility], [place], [place] ??[phone]. Current interpretive data was last revised on 07. Blood specimen (specimen) 06/26/2019 12:11 PM FOOD COUNSELOR 06/26/2019 12:26 PM FOOD COUNSELOR us Eliana Quevedo MD LAB BLOOD ORDERABLE S Final Result [facility] One [facility] Department [place] [address] documented in this encounter Visit Diagnoses Diagnosis Crohn's disease of small and large intestines with complication (HCC) High risk medications (not anticoagulants) long-term use Encounter for long-term (current) use of other medications documented in this encounter Care Teams Flume Ride Operator Relationship Specialty Start Date End Date Lanre Parekh DO PCP - General Family Medicine 01/23/19 documented as of this encounter
--- OUTSIDE RECORDS SUMMARY | 2024-07-09 09:57 | XMS_ITS | Encounter Summary ---
Author Organization [facility] Address [address] [place] [address] Phone Care Team Providers Care Asbestos Pipe Supervisor Name Role Phone Lanre Parekh DO Primary Care Provide r Encounter Details Date Type Department Care Team (Late st Contact Info) Description 07/01/2019 Orders Only [facility] Gastroenterology [address] [facility] 8th [place] [address] [place] [address] Padma Mendoza, JOSH Social History Tobacco Use Types Packs/Day Years Used Date Smoking Tobacco: Never Smokeless Tobacco: Never Alcohol Use Standard Drinks/Week Comments No 0 (1 standard drink = 0.6 oz pur e alcohol) Sex and Gender Information Value Date Recorded Sex Assigned at Not on file Legal Sex Male 11:11 PM SAP SD ANALYST Gender Identity Not on file Sexual Orientation Not on file documented as of this encounter Plan of Treatment Not on file documented as of this encounter Visit Diagnoses Not on filedocumented in this encounter Care Teams Asbestos Pipe Supervisor Relationship Specialty Start Date End Date Lanre Parekh DO PCP - General Family Medicine 01/23/19 documented as of this encounter
--- OUTSIDE RECORDS SUMMARY | 2024-07-09 09:57 | XMS_ITS | Encounter Summary ---
Author Organization [facility] Address [address] [place] [address] Phone Care Team Providers Care Cylinder Loader Name Role Phone Lanre Parekh Primary Care Provide r Encounter Details Date Type Department Care Team (Late st Contact Info) Description 07/31/2019 10:00 AM CONCRETE PLANT LABORER Office Visit [facility] Gastroenterology [address] [facility] 8th [place] [address] [place] [phone] Eliana Quevedo MD [address] [place] [address] Crohn's disease of small and large intestines [...] on file Legal Sex Male 11:11 PM CONCRETE PLANT LABORER Gender Identity Not on file Sexual Orientation Not on file documented as of this encounter Last Filed Vital Signs Vital Sign Reading Time Taken Comments Blood Pressure 120/80 07/31/2019 10:02 AM CONCRETE PLANT LABORER Pulse 70 07/31/2019 10:02 AM CONCRETE PLANT LABORER Temperature 36.7 ??C (98 ??F) 07/31/2019 10:02 AM CONCRETE PLANT LABORER Respiratory Rate - - Oxygen Saturation 96% 07/31/2019 10:02 AM CONCRETE PLANT LABORER Inhaled Oxygen Concentration - - Weight 80.6 kg (177 lb 9.6 oz) 07/31/2019 10:02 AM CONCRETE PLANT LABORER Height 170.2 cm (5' 7 ) 07/31/2019 10:02 AM CONCRETE PLANT LABORER Body Mass Index 27.82 07/31/2019 10:02 AM CONCRETE PLANT LABORER documented in this encounter Patient Instructions * Patient Instructions* Padma Mendoza RN - 07/31/2019 10:00 AM CONCRETE PLANT LABORER Keep colonoscopy as scheduled . follow up in office inn 6 months Labs due at [facility] in - orders to patient RETE PLANT LABORER documented in this encounter Progress Notes * Jackeline Lozano MD - 07/31/2019 10:00 AM CST Images from the original note were not included. 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 [...] medications documented in this encounter Care Teams Cylinder Loader Relationship Specialty Start Date End Date Lanre Parekh DO PCP - General Family Medicine 01/23/19 documented as of this encounter
--- OUTSIDE RECORDS SUMMARY | 2024-07-09 09:57 | XMS_ITS | Encounter Summary ---
Author Organization [facility] Healthcare Address [address] [place] [address] Care Team Providers Care Electric Hoist Operator Name Role Phone Lanre Parekh Primary Care Provide r Encounter Details Date Type Department Care Team (Late st Contact Info) Description 08/29/2019 12:33 PM CRIMINAL INVESTIGATOR CUSTOMS - 08/29/2019 2:46 PM CRIMINAL INVESTIGATOR CUSTOMS Hospital Encounter [facility] Endoscopy [address] [place] [address] Eliana Quevedo MD [address] [facility] [address] [place], [place] [id number] Discharge Disposition: Discharge to home or self care Social History Tobacco Use Types Packs/Day Years Used Date Smoking Tobacco: Never Smokeless Tobacco: Never Alcohol Use Standard Drinks/Week Comments Yes 0 (1 standard drink = 0.6 oz pur e alcohol) wine-rarely Sex and Gender Information Value Date Recorded Sex Assigned at Not on file Legal Sex Male 11:11 PM CRIMINAL INVESTIGATOR CUSTOMS Gender Identity Not on file Sexual Orientation Not on file documented as of this encounter Last Filed Vital Signs Vital Sign Reading Time Taken Comments Blood Pressure 96/70 08/29/2019 2:25 PM CRIMINAL INVESTIGATOR CUSTOMS Pulse 75 08/29/2019 2:25 PM CRIMINAL INVESTIGATOR CUSTOMS Temperature 36.1 ??C (97 ??F) 08/29/2019 2:00 PM CRIMINAL INVESTIGATOR CUSTOMS Respiratory Rate 19 08/29/2019 2:25 PM CRIMINAL INVESTIGATOR CUSTOMS Oxygen Saturation 98% 08/29/2019 2:10 PM CRIMINAL INVESTIGATOR CUSTOMS Inhaled Oxygen Concentration - - Weight 77.1 kg (170 lb) 08/29/2019 1:12 PM CRIMINAL INVESTIGATOR CUSTOMS Height 172.7 cm (5' 8 ) 08/29/2019 1:12 PM CRIMINAL INVESTIGATOR CUSTOMS Body Mass Index 25.85 08/29/2019 1:12 PM CRIMINAL INVESTIGATOR CUSTOMS documented in this encounter Discharge Diagnoses Diagnosis [...] STATUS TO OTHER ANTIBIOTIC AGENTS STATUS Other [facility] (current) drug therapy - OTHER PENITENTIARY (CURRENT) DRUG THERAPY documented in this encounter Medications at Time of Discharge L.acid/L.casei/B.b if/B.raf/FOS (PROBIOTIC BLEND ORAL)Indications:[facility] Take 1 tablet by mouth every [...] planned procedure for the reasons stated above. INAL INVESTIGATOR CUSTOMS documented in this encounter Procedure Notes * Eliana Quevedo MD - 08/29/2019 1:38 PM CSTAssociated Order(s): COLONOSCOPY ENDOSCOPY LAB Patient Name: Nic Teran Procedure Date: 08/29/2019 1:38 PM Date of : 1990 Admit Type: Outpatient Age: 28 Gender: Male Attending MD: Eliana Quevedo M.D. Room: [facility] ENDOSCOPY ROOM 01 Note Status: Finalized [...] scope was passed under direct vision. The [id number] was introduced through the anus and advanced to 10 cm into the ileum. The colonoscopy was performed without difficulty. The patient tolerated the procedure well. The quality of the bowel preparation was evaluated using the BBPS (Fairview Bowel Preparation Scale) with scores of: Right [...] 0 Note Initiated On: 08/29/2019 1:38 PM INAL INVESTIGATOR CUSTOMS documented in this encounter Miscellaneous Notes * Result Encounter Note - Eliana Quevedo MD - 08/29/2019 2:46 PM CST Perfect metabolites * Perioperative Nursing Note - Francesca Hearn RN - 08/29/2019 2:27 PM CRIMINAL INVESTIGATOR CUSTOMS Bloods drawn as ordered. INAL INVESTIGATOR CUSTOMS * Perioperative Nursing Note - Waleska Marie RN - 08/29/2019 1:30 PM CRIMINAL INVESTIGATOR CUSTOMS Pt reports not 'feeling well' during IV start. SBP noted to be 70/35. HR 52, pt pale and diaphoretic. HOB flat, IVF bolused for 500 cc. Pt reports symptoms improving.SBP>90's , HR>65 after 5 minutes. INAL INVESTIGATOR CUSTOMS * Perioperative Nursing Note - Dina Erickson RN - 08/28/2019 4:46 PM CRIMINAL INVESTIGATOR CUSTOMS Please follow any instruction you were given re:Bowel prep. Come to [facility] new ER entrance, you are encouraged to use free insulation installer parking. As you enter please inquire at [...] medical transport by yourself will be allowed. INAL INVESTIGATOR CUSTOMS documented in this encounter Plan of Treatment Not on file documented as of this encounter Procedures Procedure Name Priority Date/Time Associated Diagnosis Comments T-SPOT.TB Routine 08/29/2019 2:15 PM CRIMINAL INVESTIGATOR CUSTOMS DIFFERENTIAL AUTO Routine 08/29/2019 2:1 5 PM CRIMINAL INVESTIGATOR CUSTOMS THIOPURINE METABOLITES Routine 08/29/2019 2:15 PM CRIMINAL INVESTIGATOR CUSTOMS CBC WITH AUTO DIFFERENTIAL Routine 08/29/2019 2:15 PM CRIMINAL INVESTIGATOR CUSTOMS HEPATIC FUNCTION PANEL Routine 08/29/2019 2:15 PM CRIMINAL INVESTIGATOR CUSTOMS COLONOSCOPY 08/29/2019 1:42 PM CRIMINAL INVESTIGATOR CUSTOMS Crohn's disease of both small and large intestine with other complication (CMS/HCC) COLONOSCOPY 08/29/2019 1:38 PM CRIMINAL INVESTIGATOR CUSTOMS documented in this encounter Results * Differential, auto (08/29/2019 2:15 PM CRIMINAL INVESTIGATOR CUSTOMS) Neutrophil abs 3.8 1.7 - 6.5 K/cumm [...] 2017. Blood specimen (specimen) 08/29/2019 2:15 PM CRIMINAL INVESTIGATOR CUSTOMS 08/29/2019 2:23 PM CRIMINAL INVESTIGATOR CUSTOMS Eliana Quevedo MD LAB BLOOD ORDERABLE S Final Result [facility] [address] [facility]. Department [place] [address] * Thiopurine metabolites (08/29/2019 2:15 PM CRIMINAL INVESTIGATOR CUSTOMS) Thiopurine metabolites See scanned report [facility] Blood specimen (specimen) 08/29/2019 2:15 PM CRIMINAL INVESTIGATOR CUSTOMS 09/08/2019 9:53 AM CDT us Eliana Quevedo MD LAB BLOOD ORDERABLE S Final Result [facility] [address] [facility]. Department [place] [place] [address] * T-SPOT.TB (08/29/2019 2:15 PM CRIMINAL INVESTIGATOR CUSTOMS) T-SPOT.TB Negative Negative [facility] Comment: Limitations [...] with T-SPOT.TB test. T-Spot testing performed by [employer], [address] [place] [address]. [id number] A negative test result does not exclude [...] [facility] Blood specimen (specimen) 08/29/2019 2:15 PM CRIMINAL INVESTIGATOR CUSTOMS 08/29/2019 2:23 PM CRIMINAL INVESTIGATOR CUSTOMS Eliana Quevedo MD LAB MICROBIOLOGY - GENERAL ORDERABLES Final Result [facility] [address] [facility]. Department [place] [address] * Hepatic function panel (08/29/2019 2:15 PM CRIMINAL INVESTIGATOR CUSTOMS) Bilirubin, total 0.8 0.1 - 1.2 mg/dL [...] [facility] Blood specimen (specimen) 08/29/2019 2:15 PM CRIMINAL INVESTIGATOR CUSTOMS 08/29/2019 2:23 PM CRIMINAL INVESTIGATOR CUSTOMS us Eliana Quevedo MD LAB BLOOD ORDERABLE S Final Result [facility] [address] [employer] [place] [address] * (ABNORMAL) CBC with auto differential (08/29/2019 2:15 PM CRIMINAL INVESTIGATOR CUSTOMS) WBC 6.5 3.8 - 9.9 K/cumm CERNER [...] [facility] Blood specimen (specimen) 08/29/2019 2:15 PM CRIMINAL INVESTIGATOR CUSTOMS 08/29/2019 2:23 PM CRIMINAL INVESTIGATOR CUSTOMS us Eliana Quevedo MD LAB BLOOD ORDERABLE S Final Result [facility] [id number] [facility] [employer]. [facility] [place] [place] [address] * COLONOSCOPY (08/29/2019 1:38 PM CRIMINAL INVESTIGATOR CUSTOMS) Anatomical Region Laterality Modality Other Narrative Procedure Note Eliana Quevedo MD - 08/29/2019 1:38 PM CST ENDOSCOPY LAB Patient Name: Nic Teran Procedure Date: 08/29/2019 1:38 PM Date of : 1990 Admit Type: Outpatient Age: 28 Gender: Male Attending MD: Eliana Quevedo M.D. Room: [facility] ENDOSCOPY ROOM 01 Note Status: Finalized [...] Thescope was passed under direct vision. The [id number] introduced through the anus and advanced to 10 cm intothe ileum. The colonoscopy was performed withoutdifficulty. The patient tolerated the procedure well. The qualityof the bowel preparation was evaluated using the BBPS(Fairview Bowel Preparation Scale) with scores of: Right [...] Pre-Procedure (GI) Rate/Dose Verify 08/29/2019 1:37 PM CRIMINAL INVESTIGATOR CUSTOMS 30 mL/hr New Bag 08/29/2019 1:20 PM CRIMINAL INVESTIGATOR CUSTOMS 30 mL/hr 30 mL/hr Ri ght Forearm [...] Recently Administered Medications Times are shown in CRIMINAL INVESTIGATOR CUSTOMS. Continuous Medication Order 08/27/2019 08/28/2019 08/29/2019 sodium [...] 08/03 documented in this encounter Care Teams Electric Hoist Operator Relationship Specialty Start Date End Date Lanre Parekh DO PCP - General Family Medicine 01/23/19 documented as of this encounter
--- OUTSIDE RECORDS SUMMARY | 2024-07-09 09:57 | XMS_ITS | Encounter Summary ---
Author Organization [facility] Address [address] [place] [address] Phone Care Team Providers Care Silo Worker Name Role Phone Lanre Parekh Primary Care Provide r Encounter Details Date Type Department Care Team (Late st Contact Info) Description 08/29/2019 Orders Only [facility] Gastroenterology [address] [facility] Medicine 8th [place] [address] [place] [phone] Padma Mendoza, JOSH Crohn's disease of both [...] file Legal Sex Male 11:11 PM INSPECTOR TECHNICIAN Gender Identity Not on file Sexual Orientation Not on file documented as of this encounter Ordered Prescriptions Prescription Sig Dispense Quantity Refills Last Filled Start Date End Date adalimumab (HUMIRA, CF, PEN) 40 mg/0.4 mL pen injector kitIndications:Sherry hn's Iain,[place] approved through [employer] #[id number] starting 03/23/19 through 04/21/20 Inject 0.4 mL [...] injector kitIndications:Crohn's Disease,PA approved through [employer] #[id number] starting 03/23/19 through 04/21/20 Inject 0.4 mL (40 mg total) under the skin every 14 (fourteen) days SAFETY LABS REQUIRED EVERY 3 MONTHS FOR REFILLS DUE 08/2019 Reorder 05/13/2019 08/29/2019 documented as of this encounter Care Teams Silo Worker Relationship Specialty Start Date End Date Lanre Parekh DO PCP - General Family Medicine 01/23/19 documented as of this encounter
--- OUTSIDE RECORDS SUMMARY | 2024-07-09 09:57 | XMS_ITS | Encounter Summary ---
Author Organization [facility] Address [address] [place] [address] Phone Care Team Providers Care Radiation / Chemistry Technician Name Role Phone Lanre Parekh Primary Care Provide r Encounter Details Date Type Department Care Team (Late st Contact Info) Description 06/10/[address] [facility] Gastroenterology [facility] Medicine 8th [place] [address] [place] [address] Padma Mendoza, JOSH Crohn's disease of both [...] on file Legal Sex Male 11:11 PM CATHODE BUILDER Gender Identity Not on file Sexual Orientation [...] documented as of this encounter Care Teams Radiation / Chemistry Technician Relationship Specialty Start Date End Date Lanre Parekh DO PCP - General Family Medicine 01/23/19 documented as of this encounter
--- OUTSIDE RECORDS SUMMARY | 2024-07-09 09:57 | XMS_ITS | Encounter Summary ---
Author Organization [facility] Address [address] [place] [address] Phone Care Team Providers Care Nail Galvanizer Name Role Phone Lanre Parekh Primary Care Provide r Encounter Details Date Type Department Care Team (Late st Contact Info) Description 06/23/2019 Orders Only [facility] Gastroenterology [address] [facility] Medicine 8th [place] [address] [place] [phone] Padma Mendoza, RN Crohn's disease of small [...] file Legal Sex Male 11:11 PM SENIOR MATERIALS PLANNER Gender Identity Not on file Sexual Orientation Not on file documented as of this encounter Progress Notes * Padma Mendoza RN - 06/23/2019 8:29 AM CST [employer] OR MATERIALS PLANNER documented in this encounter Plan of Treatment Not on file documented as of this encounter Results * Thiopurine metabolites (06/26/2019 12:11 PM SENIOR MATERIALS PLANNER) 6-TG, bld 236 230 - 400 pmol/RBCs [facility] Comment: Interpretive Data Units of Measure are pmol/8x10E8 RBCs Testing performed by: [employer], [place], [place] ??[phone]. Current interpretive data was last revised on 07. 6-MMP, bld <886 0 - 5,699 pmol/RBCs [facility] Comment: Interpretive Data Units of Measure are pmol/8x10E8 RBCs Testing performed by: [employer], [place], [place] ??[phone]. Current interpretive data was last revised on 07. Blood specimen (specimen) 06/26/2019 12:11 PM SENIOR MATERIALS PLANNER 06/26/2019 12:26 PM SENIOR MATERIALS PLANNER us Eliana Quevedo MD LAB BLOOD ORDERABLE S Final Result [facility] Department [place] [address] documented in this encounter Visit Diagnoses Diagnosis Crohn's disease of small and large intestines with complication (HCC)- Primary High risk medications (not anticoagulants) long-term use Encounter for long-term (current) use of other medications documented in this encounter Care Teams Nail Galvanizer Relationship Specialty Start Date End Date Lanre Parekh DO PCP - General Family Medicine 01/23/19 documented as of this encounter
--- OUTSIDE RECORDS SUMMARY | 2024-07-09 09:57 | XMS_ITS | Encounter Summary ---
Author Organization [facility] Address [address] [place] [address] Phone Care Team Providers Care Line Service Technician Name Role Phone Lanre Parekh DO Primary Care Provide r Encounter Details Date Type Department Care Team (Late st Contact Info) Description 07/25/2019 Orders Only [facility] Surgery [address] [facility] 8th [place] [address] [place] [phone] Meaghan, Gemecih, RMA Social History Tobacco Use Types Packs/Day Years Used Date Smoking Tobacco: Never Smokeless Tobacco: Never Alcohol Use Standard Drinks/Week Comments No 0 (1 standard drink = 0.6 oz pur e alcohol) Sex and Gender Information Value Date Recorded Sex Assigned at Not on file Legal Sex Male 11:11 PM SUPPORT GROUP MANAGER Gender Identity Not on file Sexual [...] 06/03/20192019 added in this encounter Care Teams Line Service Technician Relationship Specialty Start Date End Date Lanre Parekh DO PCP - General Family Medicine 01/23/19 documented as of this encounter
--- OUTSIDE RECORDS SUMMARY | 2024-07-09 09:57 | XMS_ITS | Encounter Summary ---
Author Organization [facility] Healthcare Address [address] [place] [address] Care Team Providers Care Line Analyst Name Role Phone Lanre Parekh Primary Care Provide r Encounter Details Date Type Department Care Team (Late st Contact Info) Description 08/29/2019 1:30 PM COOK VACUUM KETTLE - 08/29/2019 2:00 PM COOK VACUUM KETTLE Surgery [facility] Endoscopy [address] [place] [place] [address] Eliana Quevedo MD [address] [facility] [address] [place], [place] [id number] COLONOSCOPY Surgery Details Date/Time Status Location OR Service Patient Class Case Class Case Type Trauma Case? 08/29/2019 1:30 PM Posted [facility] ENDOSCOPY Endo 01 Gastroenterology Outpatient Elective [...] on file Legal Sex Male 11:11 PM COOK VACUUM KETTLE Gender Identity Not on file Sexual Orientation Not on file documented as of this encounter Last Filed Vital Signs Vital Sign Reading Time Taken Comments Blood Pressure 93/60 08/29/2019 1:35 PM COOK VACUUM KETTLE Pulse 84 08/29/2019 2:00 PM COOK VACUUM KETTLE Temperature 36.1 ??C (97 ??F) 08/29/2019 2:00 PM COOK VACUUM KETTLE Respiratory Rate 23 08/29/2019 2:00 PM COOK VACUUM KETTLE Oxygen Saturation 97% 08/29/2019 2:00 PM COOK VACUUM KETTLE Inhaled Oxygen Concentration - - Weight 77.1 kg (170 lb) 08/29/2019 1:12 PM COOK VACUUM KETTLE Height 172.7 cm (5' 8 ) 08/29/2019 1:12 PM COOK VACUUM KETTLE Body Mass Index 25.85 08/29/2019 1:12 PM COOK VACUUM KETTLE documented in this encounter Medications at Time of Discharge L.acid/L.casei/B.b if/B.raf/FOS (PROBIOTIC BLEND ORAL)Indications:g [facility] Take 1 tablet by mouth every [...] planned procedure for the reasons stated above. VACUUM KETTLE documented in this encounter Procedure Notes * Eliana Quevedo MD - 08/29/2019 1:38 PM CSTAssociated Order(s): COLONOSCOPY ENDOSCOPY LAB Patient Name: Nic Teran Procedure Date: 08/29/2019 1:38 PM Date of : 1990 Admit Type: Outpatient Age: 28 Gender: Male Attending MD: Eliana Quevedo M.D. Room: [facility] ENDOSCOPY ROOM 01 Note Status: Finalized [...] scope was passed under direct vision. The [id number] was introduced through the anus and advanced to 10 cm into the ileum. The colonoscopy was performed without difficulty. The patient tolerated the procedure well. The quality of the bowel preparation was evaluated using the BBPS ([place] Bowel Preparation Scale) with scores of: Right [...] 0 Note Initiated On: 08/29/2019 1:38 PM VACUUM KETTLE documented in this encounter Miscellaneous Notes * Result Encounter Note - Eliana Quevedo MD - 08/29/2019 2:46 PM CST Perfect metabolites * Perioperative Nursing Note - Francesca Hearn RN - 08/29/2019 2:27 PM COOK VACUUM KETTLE Bloods drawn as ordered. VACUUM KETTLE * Perioperative Nursing Note - Waleska Marie RN - 08/29/2019 1:30 PM COOK VACUUM KETTLE Pt reports not 'feeling well' during IV start. SBP noted to be 70/35. HR 52, pt pale and diaphoretic. HOB flat, IVF bolused for 500 cc. Pt reports symptoms improving.SBP>90's , HR>65 after 5 minutes. VACUUM KETTLE * Perioperative Nursing Note - Dina Erickson RN - 08/28/2019 4:46 PM COOK VACUUM KETTLE Please follow any instruction you were given re:Bowel prep. Come to [facility] new ER entrance, you are encouraged to use free yarder operator parking. As you enter please inquire at [...] medical transport by yourself will be allowed. VACUUM KETTLE documented in this encounter Plan of Treatment Not on file documented as of this encounter Procedures Procedure Name Priority Date/Time Associated Diagnosis Comments T-SPOT.TB Routine 08/29/2019 2:15 PM COOK VACUUM KETTLE DIFFERENTIAL AUTO Routine 08/29/2019 2:1 5 PM COOK VACUUM KETTLE THIOPURINE METABOLITES Routine 08/29/2019 2:15 PM COOK VACUUM KETTLE CBC WITH AUTO DIFFERENTIAL Routine 08/29/2019 2:15 PM COOK VACUUM KETTLE HEPATIC FUNCTION PANEL Routine 08/29/2019 2:15 PM COOK VACUUM KETTLE COLONOSCOPY 08/29/2019 1:42 PM COOK VACUUM KETTLE Crohn's disease of both small and large intestine with other complication (CMS/HCC) COLONOSCOPY 08/29/2019 1:38 PM COOK VACUUM KETTLE documented in this encounter Results * Differential, auto (08/29/2019 2:15 PM COOK VACUUM KETTLE) Neutrophil abs 3.8 1.7 - 6.5 K/cumm [...] on 2017. Lymphocyte pct 34.4 % [facility] Comment: Interpretive Data Percent cell count reference ranges are not reported, since discordance with absolute values may lead to misinterpretation of CBC data. Current Interpretive Data was last revised on 2017. Monocyte pct 4.9 % [facility] Comment: Interpretive Data Percent cell count reference ranges are not reported, since discordance with absolute values may lead to misinterpretation of CBC data. Current Interpretive Data was last revised on 2017. Eosinophil pct 0.9 % [facility] Comment: Interpretive Data Percent cell count reference ranges are not reported, since discordance with absolute values may lead to misinterpretation of CBC data. Current Interpretive Data was last revised on 2017. Basophil pct 0.5 % [facility] Comment: Interpretive Data Percent cell count reference ranges are not reported, since discordance with absolute values may lead to misinterpretation of CBC data. Current Interpretive Data was last revised on 2017. Blood specimen (specimen) 08/29/2019 2:15 PM COOK VACUUM KETTLE 08/29/2019 2:23 PM COOK VACUUM KETTLE Eliana Quevedo MD LAB BLOOD ORDERABLE S Final Result Performing Organization Address City/[facility]/ZIP Co de Phone Number [facility] [address] [facility] Center[facility] [address] * Thiopurine metabolites (08/29/2019 2:15 PM COOK VACUUM KETTLE) Thiopurine metabolites See scanned report CRUZ VILLARREALCH Blood specimen (specimen) 08/29/2019 2:15 PM COOK VACUUM KETTLE 09/08/2019 9:53 AM CDT Eliana Quevedo MD LAB BLOOD ORDERABLE S Final Result Performing Organization Address City/[facility]/ZIP Co de Phone Number [facility] [address] [facility] [place] [address] * T-SPOT.TB (08/29/2019 2:15 PM COOK VACUUM KETTLE) [facility] T-SPOT.TB Negative Negative CRUZ CELESTE Comment: [...] with T-SPOT.TB test. T-Spot testing performed by [employer], [address] [place] [address]. [id number] A negative test result does not exclude [...] [facility] Blood specimen (specimen) 08/29/2019 2:15 PM COOK VACUUM KETTLE 08/29/2019 2:23 PM COOK VACUUM KETTLE Eliana Quevedo MD LAB MICROBIOLOGY - GENERAL ORDERABLES Final Result Performing Organization Address [facility]/ZIP Co de Phone Number [facility] [address] [email or web address] [address] * Hepatic function panel (08/29/2019 2:15 PM COOK VACUUM KETTLE) Bilirubin, total 0.8 0.1 - 1.2 mg/dL [...] [facility] Blood specimen (specimen) 08/29/2019 2:15 PM COOK VACUUM KETTLE 08/29/2019 2:23 PM COOK VACUUM KETTLE Eliana Quevedo MD LAB BLOOD ORDERABLE S Final Result Performing Organization Address [facility]/ZIP Co de Phone Number [facility] [address] [email or web address] [address] * (ABNORMAL) CBC with auto differential (08/29/2019 2:15 PM COOK VACUUM KETTLE) WBC 6.5 3.8 - 9.9 K/cumm C[facility]ER LUCASWCH Hgb 13.9 13.0 - 17.5 g/dL C[facility]ER [facility] Hct 41.2 38.9 - 50.3 % CERNER [facility] Plt 189 150 - 400 K/cumm [facility]ER [facility] MPV 9.8 9.1 - 12.3 fL [facility] RBC 4.04(L) 4.30 - 5.80 M/cumm [facility]ER [facility] MCV 102.0(H) 81.3 - 96.4 fL C[facility]ER [facility] MCH 34.4(H) 27.1 - 33.3 pg [facility] MCHC 33.7 32.3 - 35.7 g/dL C[facility]ER [facility] RDW CV 13.3 11.1 - 14.9 % [facility] RDW SD 50.1(H) 35.7 - 48.1 fL [facility] NRBC abs 0.00 0.00 - 0.01 K/cumm [facility]ER [facility] Blood specimen (specimen) 08/29/2019 2:15 PM COOK VACUUM KETTLE 08/29/2019 2:23 PM COOK VACUUM KETTLE us Eliana Quevedo MD LAB BLOOD ORDERABLE S Final Result [facility] [address] [facility] Department [employer] [place] [address] * COLONOSCOPY (08/29/2019 1:38 PM COOK VACUUM KETTLE) Anatomical Region Laterality Modality Other Narrative Procedure Note Eliana Quevedo MD - 08/29/2019 1:38 PM CST ENDOSCOPY LAB Patient Name: Nic Teran Procedure Date: 08/29/2019 1:38 PM Date of : 1990 Admit Type: Outpatient Age: 28 Gender: Male Attending MD: Eliana Quevedo M.D. Room: [facility] ENDOSCOPY ROOM 01 Note Status: Finalized [...] Thescope was passed under direct vision. The [id number] introduced through the anus and advanced to 10 cm intothe ileum. The colonoscopy was performed withoutdifficulty. The patient tolerated the procedure well. The qualityof the bowel preparation was evaluated using the BBPS([place] Bowel Preparation Scale) with scores of: Right [...] at 1349, Intra-Op Given 08/29/2019 1:49 PM COOK VACUUM KETTLE 50 mg GI Tract sodium chloride 0.9% flush 0.5-20 mL 0.5-20 mL, intra-catheter, As needed, line care, Starting on Sun08/29/19 at 1308, Pre-Procedure (GI), Flush volume based on line type and size. Flush before and after each use. , Indications: FlushingIndications:Flus daniel sodium chloride 0.9% infusion 30 mL/hr, intravenous, Continuous, Starting on Sun08/29/19 at 1345, Pre-Procedure (GI) Rate/Dose Verify 08/29/2019 1:37 PM COOK VACUUM KETTLE 30 mL/hr New Bag 08/29/2019 1:20 PM COOK VACUUM KETTLE 30 mL/hr 30 mL/hr Ri ght Forearm [...] Recently Administered Medications Times are shown in COOK VACUUM KETTLE. Continuous Medication Order 08/27/2019 08/28/2019 08/29/2019 sodium [...] 08/03 documented in this encounter Care Teams Line Analyst Relationship Specialty Start Date End Date Lanre Parekh DO PCP - General Family Medicine 01/23/19 documented as of this encounter
--- OUTSIDE RECORDS SUMMARY | 2024-07-09 09:57 | XMS_ITS | Encounter Summary ---
Author Organization [facility] Address [address] [place] [address] Phone Care Team Providers Care Act Tutor Name Role Phone Lanre Parekh Primary Care Provide r Encounter Details Date Type Department Care Team (Late st Contact Info) Description 08/04/2019 Orders Only [facility] Gastroenterology [address] [facility] 8th [place] [address] [place] [phone] Padma Mendoza RN Diarrhea, unspecified type Social History Tobacco Use Types Packs/Day Years Used Date Smoking Tobacco: Never Smokeless Tobacco: Never Alcohol Use Standard Drinks/Week Comments No 0 (1 standard drink = 0.6 oz pur e alcohol) Sex and Gender Information Value Date Recorded Sex Assigned at Not on file Legal Sex Male 11:11 PM 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
--- OUTSIDE RECORDS SUMMARY | 2024-07-09 09:57 | XMS_ITS | Encounter Summary ---
Author Organization [facility] Address [address] [place] [address] Phone Care Team Providers Care Manager Regulatory Name Role Phone Lanre Parekh DO Primary Care Provide r Encounter Details Date Type Department Care Team (Late st Contact Info) Description 06/20/2019 Orders Only [facility] Gastroenterology [address] [facility] 8th [place] [address] [place] [address] Padma Mendoza, JOSH Social History Tobacco Use Types Packs/Day Years Used Date Smoking Tobacco: Never Smokeless Tobacco: Never Alcohol Use Standard Drinks/Week Comments No 0 (1 standard drink = 0.6 oz pur e alcohol) Sex and Gender Information Value Date Recorded Sex Assigned at Not on file Legal Sex Male 11:11 PM SLAB STRIPPER Gender Identity Not on file Sexual Orientation Not on file documented as of this encounter Plan of Treatment Not on file documented as of this encounter Visit Diagnoses Not on filedocumented in this encounter Care Teams Manager Regulatory Relationship Specialty Start Date End Date Lanre Parekh DO PCP - General Family Medicine 01/23/19 documented as of this encounter
--- OUTSIDE RECORDS SUMMARY | 2024-07-09 09:57 | XMS_ITS | Encounter Summary ---
Author Organization [facility] Address [address] [place] [address] Phone Care Team Providers Care Top Knitter Name Role Phone Lanre Parekh DO Primary Care Provide r Encounter Details Date Type Department Care Team (Late st Contact Info) Description 05/21/2019 Documentation [facility] Neuro Sleep [address] [place] [address] 6th Floor [address] [place] [address] Deedee Bravo Ladan Social History Tobacco Use Types Packs/Day Years Used Date Smoking Tobacco: Never Smokeless Tobacco: Never Alcohol Use Standard Drinks/Week Comments No 0 (1 standard drink = 0.6 oz pur e alcohol) Sex and Gender Information Value Date Recorded Sex Assigned at Not on file Legal Sex Male 11:11 PM MICROSOFT EXCHANGE ADMINISTRATOR Gender Identity Not on file Sexual Orientation Not on file documented as of this encounter Progress Notes * Deedee Bravo MA - 05/21/2019 11:37 AM CST Received order. Faxed to [facility] and scanned fax confirmation OSOFT EXCHANGE ADMINISTRATOR documented in this encounter Plan of Treatment Not on file documented as of this encounter Visit Diagnoses Not on filedocumented in this encounter Care Teams Top Knitter Relationship Specialty Start Date End Date Lanre Parekh DO PCP - General Family Medicine 01/23/19 documented as of this encounter
--- OUTSIDE RECORDS SUMMARY | 2024-07-09 09:57 | XMS_ITS | Encounter Summary ---
Author Organization [facility] Address [address] [place] [address] Phone Care Team Providers Care Overhauler Bus Truck Name Role Phone Lanre Parekh DO Primary Care Provide r Encounter Details Date Type Department Care Team (Late st Contact Info) Description 06/06/2019 Telephone [facility] Neuro Sleep [address] [facility] 6th [address] [place] [address] Lexi Zuñiga CMA Social History Tobacco Use Types Packs/Day Years Used Date Smoking Tobacco: Never Smokeless Tobacco: Never Alcohol Use Standard Drinks/Week Comments No 0 (1 standard drink = 0.6 oz pur e alcohol) Sex and Gender Information Value Date Recorded Sex Assigned at Not on file Legal Sex Male 11:11 PM STOCKING INSPECTOR Gender Identity Not on file Sexual Orientation Not on file documented as of this encounter Miscellaneous Notes * Telephone Encounter - Lexi Zuñiga CMA - 06/06/2019 4:13 PM STOCKING INSPECTOR Called [facility] to ask about order I was told no one in the office could help me at that time. I left myinformation for someone to call me back. I called pt to give him an update. KING INSPECTOR documented in this encounter Plan of Treatment Not on file documented as of this encounter Visit Diagnoses Not on filedocumented in this encounter Care Teams Overhauler Bus Truck Relationship Specialty Start Date End Date Lanre Parekh DO PCP - General Family Medicine 01/23/19 documented as of this encounter
--- OUTSIDE RECORDS SUMMARY | 2024-07-09 09:57 | XMS_ITS | Encounter Summary ---
Author Organization [facility] Address [address] [place] [address] Phone Care Team Providers Care Director Of Epidemiology Name Role Phone Lanre Parekh Primary Care Provide r Encounter Details Date Type Department Care Team (Late st Contact Info) Description 07/01/2019 Orders Only [facility] Gastroenterology [facility] Medicine 8th [place] [address] [place] [phone] Padma Mendoza, JOSH Crohn's disease of small [...] on file Legal Sex Male 11:11 PM EQUIPMENT CLEANER AND TESTER Gender Identity Not on file Sexual [...] on: 09/02/2019 07:53 AM Modules accepted: Orders PMENT CLEANER AND TESTER documented in this encounter Plan of Treatment [...] of this encounter Care Teams Director Of Epidemiology Relationship Specialty Start Date End Date Lanre Parekh DO PCP - General Family Medicine 01/23/19 documented as of this encounter
--- OUTSIDE RECORDS SUMMARY | 2024-07-09 09:57 | XMS_ITS | Encounter Summary ---
Author Organization [facility] Address [address] [place] [address] Phone Care Team Providers Care Utilization Review Nurse Name Role Phone Lanre Parekh Primary Care Provide r Encounter Details Date Type Department Care Team (Late st Contact Info) Description 05/16/[address] Medical Office [address] [place] [address] Fernando Mckeon MD [address] [address] Social History Tobacco Use Types Packs/Day Years Used Date Smoking Tobacco: Never Smokeless Tobacco: Never Alcohol Use Standard Drinks/Week Comments No 0 (1 standard drink = 0.6 oz pur e alcohol) Sex and Gender Information Value Date Recorded Sex Assigned at Not on file Legal Sex Male 11:11 PM LATIN DANCE INSTRUCTOR Gender Identity Not on file Sexual Orientation Not on file documented as of this encounter Miscellaneous Notes * Telephone Encounter - Franck Ledbetter CMA - 05/16/2019 12:26 PM LATIN DANCE INSTRUCTOR ??Let the patient know his D levels are wnl. Continue current supplements. See him in yr. Please forward CBC anemic with high indices to his PCP. Tried to leave message no vm. Sent my chart message. N DANCE INSTRUCTOR N DANCE INSTRUCTOR documented in this encounter Plan of Treatment Not on file documented as of this encounter Visit Diagnoses Not on filedocumented in this encounter Care Teams Utilization Review Nurse Relationship Specialty Start Date End Date Lanre Parekh DO PCP - General Family Medicine 01/23/19 documented as of this encounter
--- OUTSIDE RECORDS SUMMARY | 2024-07-09 09:57 | XMS_ITS | Encounter Summary ---
Author Organization [facility] Address [address] [place] [address] Phone Care Team Providers Care Investment Representative Name Role Phone Lanre Parekh Primary Care Provide r Encounter Details Date Type Department Care Team (Late st Contact Info) Description 06/26/2019 Orders Only [facility] Gastroenterology [facility] Medicine 8th [place] [address] [place] [phone] Padma Mendoza RN Diarrhea, unspecified type Social History Tobacco Use Types Packs/Day Years Used Date Smoking Tobacco: Never Smokeless Tobacco: Never Alcohol Use Standard Drinks/Week Comments No 0 (1 standard drink = 0.6 oz pur e alcohol) Sex and Gender Information Value Date Recorded Sex Assigned at Not on file Legal Sex Male 11:11 PM TELEGRAPH EDITOR Gender Identity Not on file Sexual [...] documented as of this encounter Care Teams Investment Representative Relationship Specialty Start Date End Date Lanre Parekh DO PCP - General Family Medicine 01/23/19 documented as of this encounter
--- OUTSIDE RECORDS SUMMARY | 2024-07-09 09:57 | XMS_ITS | Encounter Summary ---
Author Organization [facility] Address [address] [place] [address] Phone Care Team Providers Care Parts And Service Manager Name Role Phone Lanre Parekh DO Primary Care Provide r Encounter Details Date Type Department Care Team (Late st Contact Info) Description 05/23/2019 Orders Only [facility] Gastroenterology [address] [facility] 8th [place] [address] [place] [address] Padma Mendoza, JOSH Social History Tobacco Use Types Packs/Day Years Used Date Smoking Tobacco: Never Smokeless Tobacco: Never Alcohol Use Standard Drinks/Week Comments No 0 (1 standard drink = 0.6 oz pur e alcohol) Sex and Gender Information Value Date Recorded Sex Assigned at Not on file Legal Sex Male 11:11 PM HOSPICE VOLUNTEER Gender Identity Not on file Sexual Orientation Not on file documented as of this encounter Plan of Treatment Not on file documented as of this encounter Visit Diagnoses Not on filedocumented in this encounter Care Teams Parts And Service Manager Relationship Specialty Start Date End Date Lanre Parekh DO PCP - General Family Medicine 01/23/19 documented as of this encounter
--- OUTSIDE RECORDS SUMMARY | 2024-07-09 09:57 | XMS_ITS | Encounter Summary ---
Author Organization [facility] Address [address] [place] [address] Phone Care Team Providers Care Finnish Rubber Name Role Phone Lanre Parekh Primary Care Provide r Encounter Details Date Type Department Care Team (Late st Contact Info) Description 05/20/2019 Orders Only [facility] Gastroenterology [facility] Medicine 8th [place] [address] [place] [phone] Padma Mendoza, JOSH Crohn's disease of small [...] on file Legal Sex Male 11:11 PM EGG SETTER Gender Identity Not on file Sexual [...] location documented in this encounter Care Teams Finnish Rubber Relationship Specialty Start Date End Date Lanre Parekh DO PCP - General Family Medicine 01/23/19 documented as of this encounter
--- OUTSIDE RECORDS SUMMARY | 2024-07-09 09:57 | XMS_ITS | Encounter Summary ---
Author Organization [facility] Address [address] [place] [address] Phone Care Team Providers Care Big Data Engineer Name Role Phone Lanre Parekh Primary Care Provide r Encounter Details Date Type Department Care Team (Late st Contact Info) Description 05/20/2019 Documentation [facility] Neuro Sleep [address] [place] [address] 6th [address] [place] [address] Davion Samuel NP [address] [place], [place] [id number] Social History Tobacco Use Types Packs/Day Years Used Date Smoking Tobacco: Never Smokeless Tobacco: Never Alcohol Use Standard Drinks/Week Comments No 0 (1 standard drink = 0.6 oz pur e alcohol) Sex and Gender Information Value Date Recorded Sex Assigned at Not on file Legal Sex Male 11:11 PM ASSORTMENT PLANNER Gender Identity Not on file Sexual Orientation Not on file documented as of this encounter Progress Notes * Davion Samuel NP - 05/20/2019 9:35 AM CST Error RTMENT PLANNER documented in this encounter Plan of Treatment Not on file documented as of this encounter Visit Diagnoses Diagnosis JALYN (obstructive sleep apnea)- Primary Obstructive sleep apnea (adult) (pediatric) documented in this encounter Orders General Supply Count Last Ordered Date First Or dered Date CPAP THERAPY 1 05/20/2019 documented in this encounter Care Teams Big Data Engineer Relationship Specialty Start Date End Date Lanre Parekh DO PCP - General Family Medicine 01/23/19 documented as of this encounter
--- OUTSIDE RECORDS SUMMARY | 2024-07-09 09:57 | XMS_ITS | Encounter Summary ---
Author Organization [facility] Care Team Providers Care Control Systems Eng Name Role Phone Lanre Parekh DO Primary [...] on file Legal Sex Male 11:11 PM WELDING MACHINE OPERATOR PLASMA ARC Gender Identity Not on file Sexual Orientation Not on file documented as of this encounter Plan of Treatment Not on file documented as of this encounter Visit Diagnoses Not on filedocumented in this encounter Care Teams Control Systems Eng Relationship Specialty Start Date End Date Lanre Parekh DO PCP - General Family Medicine 01/23/19 documented as of this encounter
--- OUTSIDE RECORDS SUMMARY | 2024-07-09 09:57 | XMS_ITS | Encounter Summary ---
Author Organization [facility] Address [address] [place] [address] Phone Care Team Providers Care Jelly Filter Tender Name Role Phone Lanre Parekh DO Primary Care Provide r Encounter Details Date Type Department Care Team (Late st Contact Info) Description 06/02/2019 Orders Only [address] Medical Office [address] [place] [address] Fernando Mckeon MD [address] [address] Social History Tobacco Use Types Packs/Day Years Used Date Smoking Tobacco: Never Smokeless Tobacco: Never Alcohol Use Standard Drinks/Week Comments No 0 (1 standard drink = 0.6 oz pur e alcohol) Sex and Gender Information Value Date Recorded Sex Assigned at Not on file Legal Sex Male 11:11 PM DOBIE MAN Gender Identity Not on file Sexual [...] on filedocumented in this encounter Care Teams Jelly Filter Tender Relationship Specialty Start Date End Date Lanre Parekh DO PCP - General Family Medicine 01/23/19 documented as of this encounter
--- OUTSIDE RECORDS SUMMARY | 2024-07-09 09:57 | XMS_ITS | Encounter Summary ---
Author Organization [facility] Address [address] [place] [address] Care Team Providers Care Callisthenics Instructor Name Role Phone Lanre Parekh Primary Care Provide r Encounter Details Date Type Department Care Team (Late st Contact Info) Description 08/29/2019 1:37 PM DRAIN TILE MACHINE OPERATOR Anesthesia Event [facility] Endoscopy [address] [place] [address] [place] [address] [place] [address] Anesthesia Record Procedure Summary Procedure Name Responsible [...] on file Legal Sex Male 11:11 PM DRAIN TILE MACHINE OPERATOR Gender Identity Not on file Sexual Orientation Not on file documented as of this encounter OR Notes * Anesthesia Postprocedure Evaluation - Catrachito Lyons MD - 08/29/2019 2:36 PM CST Patient: Nic Teran Procedure Summary Date: 08/29/19 Room / Location: [facility] RO[facility] Anesthesia Start: 1337 Anesthesia Stop: 1403 [...] acceptable Pt is: normothermic Nausea/Vomiting status: none N TILE MACHINE OPERATOR * Anesthesia Preprocedure Evaluation - Catrachito Lyons [...] 08/2019 Notes: PA approved through [employer] #[id number] starting 03/23/19 through 04/21/20 allopurinol (ZYLOPRIM) 100 [...] Medication protocol when under care of a SECURITY SOLUTIONS ARCHITECT Planned anesthesia: General Informed Consent: Anesthesia plan and risks discussed with patient. Consent and Attending signature: I and/or my designee have discussed the anesthesia plan, benefits, possible alternatives, parental presence at time of induction (if indicated), and clinically relevant risks that may include dental injury, unintentional awareness, and/or other complications. The patient and/or parent/legal guardian understand, and agree to proceed. All questions answered. N TILE MACHINE OPERATOR documented in this encounter Plan [...] of Local Anesthesia Given 08/29/2019 1:44 PM DRAIN TILE MACHINE OPERATOR 5 mL propofoL (DIPRIVAN) IV intravenous, As needed, Starting on Sun08/29/19 at 1344, Anesthesia Intra-op Given 08/29/2019 1:52 PM DRAIN TILE MACHINE OPERATOR 40 mg Given 08/29/2019 1:48 PM DRAIN TILE MACHINE OPERATOR 100 mg Given 08/29/2019 1:44 PM DRAIN TILE MACHINE OPERATOR 100 mg sodium chloride 0.9% infusion 30 mL/hr, intravenous, Continuous, Starting on Sun08/29/19 at 1345, Pre-Procedure (GI) Rate/Dose Verify 08/29/2019 1:37 PM DRAIN TILE MACHINE OPERATOR 30 mL/hr New Bag 08/29/2019 1:20 PM DRAIN TILE MACHINE OPERATOR 30 mL/hr 30 mL/hr Ri ght Forearm documented in this encounter Care Teams Callisthenics Instructor Relationship Specialty Start Date End Date Lanre Parekh DO PCP - General Family Medicine 01/23/19 documented as of this encounter
--- OUTSIDE RECORDS SUMMARY | 2024-07-09 09:58 | XMS_ITS | Encounter Summary ---
Author Organization [facility] Address [address] [place] [address] Phone Care Team Providers Care Business Objects Architect Name Role Phone Izabella Lanre Conway Primary Care Provide r Reason for Referral * Consultation (Routine) - Closed Specialty Diagnoses / Procedures Referred By Contac t Referred To Contact Sleep Medicine Diagnoses Sleep apnea, unspecified type Eliana Quevedo MD Phone: tel: fax: Bhupendra Ko MD [address] [place] [address] Phone: tel: fax: Referral ID Status Reason Start Date Expiration Date V isits Requested Visits Authorized [id number] Closed Specialty Services Required 01/23/2019 08/03/2020 1 1 Question Answer Please select the performing region: [facility] (All Locations) [167] To provider: BHUPENDRA KO [[id number]] # of visits: 1 Comments Please call pt to schedule and MD is fine with any specialist that can see the pt the soonest. Pt said he took a home sleep study and it came back positive for sleep apnea. 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
--- OUTSIDE RECORDS SUMMARY | 2024-07-09 09:58 | XMS_ITS | Encounter Summary ---
Author Organization [facility] Address [address] [place] [address] Phone Care Team Providers Care Automobile Contract Clerk Name Role Phone Trenton Bess MD Primary Care Provider [phone] Encounter Details Date Type Department Care Team (Late st Contact Info) Description 11/11/2018 Orders Only [facility]enterology [address] [place] [address] [place] [address] Eliana Quevedo MD [address] [place] [address] Social History Tobacco Use Types Packs/Day Years Used Date Smoking Tobacco: Never Smokeless Tobacco: Never Alcohol Use Standard Drinks/Week Comments No 0 (1 standard drink = 0.6 oz pur e alcohol) Sex and Gender Information Value Date Recorded Sex Assigned at Not on file Legal 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
--- OUTSIDE RECORDS SUMMARY | 2024-07-09 09:58 | XMS_ITS | Encounter Summary ---
Author Organization [facility] Address [address] [place] [address] Phone Care Team Providers Care Seaman Officer Name Role Phone Lanre Parekh Primary Care Provide r Encounter Details Date Type Department Care Team (Late st Contact Info) Description 03/04/2019 Orders Only [facility] Gastroenterology [address] [facility] Advanced Medicine 8th [place] [address] [place] [address] Padma Mendoza, JOSH Crohn's disease of small [...] file Legal Sex Male 11:11 PM CREDIT 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 It has not been cleared or approved [...] analytical performance characteristics have been determined by [employer] [facility]. It has not been cleared or approved by the FDA. This assay has been validated pursuant to the CLIA regulations and is used for clinical purposes. Blood specimen (specimen) 03/14/2019 9:28 AM CDT 03/14/2019 9:29 AM CDT Narrative Resulting Agency Comment Performing Organization Information: ?Site ID: [facility] ?Name[facility] [place] ?Address: [address] [place] [address] ?Director: Marcio Gomes M.D., Ph.D lEiana Quevedo MD LAB BLOOD ORDERABLE S Final Result [facility] [place], [place] * (ABNORMAL) Hepatic function panel (03/14/2019 [...] ALT (SGPT) 55(H) 9 - 46 U/L [facility] [place] Blood specimen (specimen) 03/14/2019 9:28 AM CDT 03/14/2019 9:29 AM CDT Narrative Resulting Agency Comment Performing Organization Information: ?Site ID: [place] ?Name: [facility] ?Address: [facility] [address] [place] [address] ?Director: Christopher Salas D.O., MPH us Eliana Quevedo MD LAB BLOOD ORDERABLE S Final Result [facility] [place] [facility] [place] documented in this encounter Visit Diagnoses Diagnosis Crohn's disease of small and large intestines with complication (HCC)- Primary Elevated transaminase level High risk medications (not anticoagulants) long-term use Encounter for long-term (current) use of other medications documented in this encounter Care Teams Seaman Officer Relationship Specialty Start Date End Date Lanre Parekh DO PCP - General Family Medicine 01/23/19 documented as of this encounter
--- OUTSIDE RECORDS SUMMARY | 2024-07-09 09:58 | XMS_ITS | Encounter Summary ---
Author Organization [facility] Address [address] [place] [address] Phone Care Team Providers Care Russian Language Instructor Name Role Phone Lanre Parekh Primary Care Provide r Encounter Details Date Type Department Care Team (Late st Contact Info) Description 03/26/2019 Orders Only [facility] Gastroenterology [facility] Medicine 8th [place] [address] [place] [address] Padma Mendoza RN High risk medications (not [...] on file Legal 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 Male 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 Gender Identity Not on file Sexual Orientation [...] Comment: ?W[facility] GASTRO/HEPAT DIV ?COPY TO ACCOUNT ?[id number] [facility] [address] ?[place] [address] 01/19/2020 1:12 PM CDT 01/19/2020 1:13 PM CDT Eliana Quevedo MD LAB BLOOD ORDERABLE S Final Result Performing Organization Address [facility] Co de Phone Number [facility] * (ABNORMAL) Thiopurine metabolites (01/19/2020 1:12 PM CDT) 6-TG, bld 217(L) 235 - 400 pmol/8x10( 8)RBC [facility] Comment: This test was developed and its analytical performance characteristics have been determined by [employer]. It has not been cleared or approved by the FDA. This assay has been validated pursuant to the CLIA regulations and is used for clinical purposes. 6 MMP <500 <5700 pmol/8x10( 8)RBC [facility] Comment: These results are useful [...] analytical performance characteristics have been determined by [employer]. It has not been cleared or approved by the FDA. This assay has been validated pursuant to the CLIA regulations and is used for clinical purposes. ? Your request to have a duplicate copy faxed has been acknowledged. ?Queued to: ??[id number] Blood specimen (specimen) 01/19/2020 1:12 PM CDT 01/19/2020 1:13 PM CDT Eliana Quevedo MD LAB BLOOD ORDERABLE S Final Result [facility] [address] [place] [address] * Hepatic function panel (01/19/2020 1:12 PM CDT) Pathologist [facility] Protein, Total 8.1 6.4 - 8.4 g/dL [...] BLOOD ORDERABLE S Final Result [facility] [address] [place] [address] * (ABNORMAL) CBC with auto differential (01/19/2020 1:12 PM CDT) Pathologist [facility] WBC 5.8 3.8 - 10.8 Thousand/u L [...] BLOOD ORDERABLE S Final Result [facility] [address] [place] [address] documented in this encounter Visit Diagnoses Diagnosis [...] documented as of this encounter Care Teams Russian Language Instructor Relationship Specialty Start Date End Date Lanre Parekh DO PCP - General Family Medicine 01/23/19 documented as of this encounter
--- OUTSIDE RECORDS SUMMARY | 2024-07-09 09:58 | XMS_ITS | Encounter Summary ---
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 [address] ?[place] [address] 02/28/2019 9:36 AM CDT 02/28/2019 9:38 AM [...] copy faxed has been acknowledged. ?Queued to: ??[id number] Blood specimen (specimen) 02/28/2019 9:36 AM CDT 02/28/2019 9:38 AM CDT Narrative Resulting Agency Comment Performing Organization Information: ?Site ID: [place] ?Name: [facility] ?Address: [address] [place] [address] ?Director: Christopher Salas D.O., MPH us Eliana Quevedo MD LAB BLOOD ORDERABLE S Final Result Performing Organization Address City/[facility]/ZIP Co de Phone Number ANGELY [facility] [place] * COPY(IES) SENT TO: (02/28/2019 9:35 AM CDT) COPY(IES) SENT TO: [facility] Comment: ?[facility] GASTRO/HEPAT DIV ?COPY TO ACCOUNT ?[id number] ?[place] [address] 02/28/2019 9:35 AM CDT 02/28/2019 9:35 AM CDT us Eliana Quevedo MD LAB BLOOD ORDERABLE S Final Result Performing Organization Address [facility] Co de Phone Number ANGELY [...] copy faxed has been acknowledged. ?Queued to: ??[id number] Blood specimen (specimen) 02/28/2019 9:35 AM CDT 02/28/2019 9:35 AM CDT Narrative Resulting Agency Comment Performing Organization Information: ?Site ID: [place] ?Name: [facility] ?Address: [address] [address] ?Director: Christopher Salas D.O., MPH us Eliana [...] copy faxed has been acknowledged. ?Queued to: ??[id number] 02/08/2019 8:43 AM CDT 02/08/2019 8:44 AM CDT Narrative [facility] - 02/09/2019 6:14 AM CDT MULTIPLE TESTING PRIORITIES; ROUTINE TESTING TO FOLLOW. Resulting Agency Comment Performing Organization Information: ?Site ID: [place] ?Name: [facility] ?Address: [address] [place] [address] [place] [address] ?Director: Christopher Salas D.O., MPH us Eliana [...] ?Site ID: [place] ?Name: [facility] ?Address: [facility] [place] [address] ?Director: Christopher Salas D.O., MPH us Eliana Quevedo MD LAB BLOOD ORDERABLE S Final Result Performing Organization Address [facility] de Phone Number [place] * COPY(IES) SENT TO: (02/08/2019 8:43 AM CDT) COPY(IES) SENT TO: [facility] Comment: ?WASH[facility] GASTRO/HEPAT DIV ?COPY TO ACCOUNT ?[id number] ?[place] [address] 02/08/2019 8:43 AM CDT 02/08/2019 8:44 AM CDT Narrative [facility] - 02/09/2019 6:14 AM CDT MULTIPLE TESTING PRIORITIES; ROUTINE TESTING TO FOLLOW. us Eliana Quevedo MD LAB BLOOD ORDERABLE S Final Result Performing Organization Address City/[facility] Co de Phone Number [facility] * COPY(IES) SENT TO: (01/25/2019 9:10 AM CDT) COPY(IES) SENT TO: [facility] Comment: ?WASHU GASTRO/HEPAT DIV ?COPY TO ACCOUNT ?[id number] ?[place] [address] 01/25/2019 9:10 AM CDT 01/25/2019 9:11 AM CDT Narrative [facility] - 01/26/2019 7:49 AM CDT FASTING:NO FASTING: NO us Eliana Quevedo MD LAB BLOOD ORDERABLE S Final Result [facility] * Hepatic function panel (01/25/2019 9:10 AM CDT) Pathologist [facility] Protein, Total 8.2 6.4 - 8.4 g/dL [...] Performing Organization Information: ?Site ID: [place] ?Name: [facility] ?Address: [address] [address] ?Director: Christopher Salas D.O., MPH us Eliana Quevedo MD LAB BLOOD ORDERABLE S Final Result [facility] [place] * CBC with auto differential (01/25/2019 [...] copy faxed has been acknowledged. ?Queued to: ??[id number] Blood specimen (specimen) 01/25/2019 9:10 AM CDT 01/25/2019 9:11 AM CDT Narrative [facility] - 01/26/2019 7:49 AM CDT FASTING:NO FASTING: NO Resulting Agency Comment Performing Organization Information: ?Site ID: [place] ?Name: [facility] ?Address: [address] [address] ?Director: Christopher Salas D.O., MPH us Eliana [...] documented as of this encounter Care Teams Talcer Relationship Specialty Start Date End Date Trenton Bess MD PCP - General 07/29/18 01/22/19 documented as of this encounter
--- OUTSIDE RECORDS SUMMARY | 2024-07-09 09:58 | XMS_ITS | Encounter Summary ---
Author Organization [facility] Address [address] [place] [address] Phone Care Team Providers Care Assistant Hall Director Name Role Phone Trenton Bess MD Primary Care Provider [phone] Encounter Details Date Type Department Care Team (Late st Contact Info) Description 11/11/2018 Orders Only [facility] Gastroenterology [address] [facility] 8th [place] [address] [place] [address] Adeline Lennon, JOSH Social History Tobacco Use Types Packs/Day Years Used Date Smoking Tobacco: Never Smokeless Tobacco: Never Alcohol Use Standard Drinks/Week Comments No 0 (1 standard drink = 0.6 oz pur e alcohol) Sex and Gender Information Value Date Recorded Sex Assigned at Not on file Legal 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
--- OUTSIDE RECORDS SUMMARY | 2024-07-09 09:58 | XMS_ITS | Encounter Summary ---
Author Organization [facility] Address [address] [place] [address] Phone Care Team Providers Care Kiln Tester Name Role Phone PamcatarinagarrettKourtneyLanrepo Conway Primary Care Provide r Reason for Referral * Diagnostic Imaging (Routine) - Closed Specialty Diagnoses / Procedures Referred By Contac t Referred To Contact Diagnoses Low bone mass Procedures Dexa Axial Skeleton Bone Density 1 or 2 Site Jonathan Pardo MD [address] [facility] [address] [place] [address] Phone: tel: fax: [facility] (All Locations) Referral ID Status Reason Start Date Expiration Date Visits Re quested Visits Authorized [id number] Closed 05/12/2019 11/20/2020 1 1 CIATE GENETICS PROFESSOR Encounter Details Date Type Department Care Team (Late st Contact Info) Description 05/12/2019 2:40 PM ASSOCIATE GENETICS PROFESSOR Office Visit [facility] [address] 5th [place] [address] [place] [address] Fernando Mckeon MD [address] [address] Low bone mass (Primary Dx); [...] on file Legal Sex Male 11:11 PM ASSOCIATE GENETICS PROFESSOR Gender Identity Not on file Sexual Orientation Not on file documented as of this encounter Last Filed Vital Signs Vital Sign Reading Time Taken Comments Blood Pressure 130/78 05/12/2019 2:16 PM ASSOCIATE GENETICS PROFESSOR Pulse 83 05/12/2019 2:16 PM ASSOCIATE GENETICS PROFESSOR Temperature 36.7 ??C (98.1 ??F) 05/12/2019 2:16 PM CS T Respiratory Rate - - Oxygen Saturation - - Inhaled Oxygen Concentration - - Weight 81 kg (178 lb 9.6 oz) 05/12/2019 2:16 PM ASSOCIATE GENETICS PROFESSOR Height 170.2 cm (5' 7 ) 05/12/2019 2:16 PM ASSOCIATE GENETICS PROFESSOR Body Mass Index 27.97 05/12/2019 2:16 PM ASSOCIATE GENETICS PROFESSOR documented in this encounter Progress Notes * [...] year. He now goes to a local [employer] 2x/week; weight/resistance training and stair master. He [...] Supervised by Dr. Karol Tran, a pediatric chick room supervisor at [facility]. 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 He has 2 children, 3.5 Years and [...] Plan to continue D 50,000 international units [id number] as of now. Patient is to decreased [...] great effort by going to his local [facility]; encourage to increase weekly use. The [...] episodes of pharyngitis. A referral to an Allergy/lubricating specialist may be of benefit if this problem were to persist.At the moment given his lack of symptoms, will leave this determination for any referral to patient's primary care provider. Thank you for sending your patient to the [facility] at [facility]. Please let us know if I can be of any more assistance. If you have any questions or concerns please do not hesitate to give us a call. Jonathan Pardo MD Internal Medicine - Primary Care PGY2 Cosigned by Fernando Mckeon MD at 05/16/2019 11:38 AM ASSOCIATE GENETICS PROFESSOR CIATE GENETICS PROFESSOR CIATE GENETICS PROFESSOR CIATE GENETICS PROFESSOR CIATE GENETICS PROFESSOR Associated attestation - Fernando Mckeon MD - 05/16/2019 11:38 AM ASSOCIATE GENETICS PROFESSOR I have seen and examined the patient. I agree with the findings and plan of care as documented in the resident/fellow's note and as discussed with the resident/fellow. documented in this encounter Plan of Treatment Not on file documented as of this encounter Results * Dexa Axial Skeleton Bone Density 1 or 2 Site (05/17/2020 1:43 PM ASSOCIATE GENETICS PROFESSOR) Anatomical Region Laterality Modality Body N/A Radiographic Nancy ging Narrative 05/21/2020 11:29 AM ASSOCIATE GENETICS PROFESSOR Patient Name: Nic Teran Date of : 1990 Date of scan: 05/17/2020 Bone mineral density was performed on a AF83 Discovery Densitometer. ?? Machine Cross-calibration and Precision [...] by the International Society of Clinical Densitometry. [id number] us Jonathan Pardo MD IMG DXA PROCEDURES Fi nal Result * Vitamin D 25 hydroxy (05/12/2019 4:15 PM ASSOCIATE GENETICS PROFESSOR) Vitamin D 25-OH 38 30 - 80 ng/mL [facility] Blood specimen (specimen) 05/12/2019 4:15 PM ASSOCIATE GENETICS PROFESSOR 05/12/2019 4:15 PM ASSOCIATE GENETICS PROFESSOR us Jonathan Pardo MD LAB BLOOD ORDERABLES Final Result [facility] [address] [facility] Department [place] [address] * Comprehensive metabolic panel (05/12/2019 4:15 PM ASSOCIATE GENETICS PROFESSOR) Sodium 140 135 - 145 mmol/L [facility] Potassium, pl 4.1 3.3 - 4.9 mmol/L [facility] Chloride 104 97 - 110 mmol/L [facility] CO2 28 22 - 32 mmol/L [facility] Anion gap 8 2 - 15 mmol/L [facility] BUN 14 8 - 25 mg/dL [facility] Creatinine 0.92 0.80 - 1.30 mg/dL [facility] Glucose 99 70 - 199 mg/dL [facility] Comment: Interpretive Data Fasting glucose >/= 126 [...] 2017. Calcium 9.7 8.5 - 10.3 mg/dL [facility] Bilirubin, total 0.4 0.1 - 1.2 mg/dL [facility] Protein, pl 8.3 6.5 - 8.5 g/dL [facility] Albumin 4.8 3.5 - 5.0 g/dL [facility] Alk phos 79 40 - 130 Units/L [facility] ALT 35 7 - 55 Units/L [facility] AST 27 10 - 50 Units/L [facility] Blood specimen (specimen) 05/12/2019 4:15 PM ASSOCIATE GENETICS PROFESSOR 05/12/2019 4:15 PM ASSOCIATE GENETICS PROFESSOR us Jonathan Pardo MD LAB BLOOD ORDERABLES Final Result [facility] [address] [facility] [place] [address] documented in this encounter Visit Diagnoses Diagnosis [...] documented as of this encounter Care Teams Kiln Tester Relationship Specialty Start Date End Date Lanre Parekh DO PCP - General Family Medicine 01/23/19 documented as of this encounter
--- OUTSIDE RECORDS SUMMARY | 2024-07-09 09:58 | XMS_ITS | Encounter Summary ---
Author Organization [facility] Address [address] [place] [address] Phone Care Team Providers Care Director Industrial Nursing Name Role Phone Trenton Bess MD Primary Care Provider [phone] Encounter Details Date Type Department Care Team (Late st Contact Info) Description 01/08/2019 Orders Only [facility] Gastroenterology [address] 8th [place] [address] [place] [address] Padma Mendoza RN Social History Tobacco Use Types Packs/Day Years Used Date Smoking Tobacco: Never Smokeless Tobacco: Never Alcohol Use Standard Drinks/Week Comments No 0 (1 standard drink = 0.6 oz pur e alcohol) Sex and Gender Information Value Date Recorded Sex Assigned at Not on file Legal Sex Male 11:11 PM ACCELERATOR TECHNICIAN Gender Identity Not on file Sexual Orientation Not on file documented as of this encounter Plan of Treatment Not on file documented as of this encounter Visit Diagnoses Not on filedocumented in this encounter Care Teams Director Industrial Nursing Relationship Specialty Start Date End Date Trenton Bess MD PCP - General 07/29/18 01/22/19 documented as of this encounter
--- OUTSIDE RECORDS SUMMARY | 2024-07-09 09:58 | XMS_ITS | Encounter Summary ---
Author Organization [facility] Address [address] [place] [address] Care Team Providers Care Inside Sales Consultant Name Role Phone Lanre Parekh DO Primary Care Provide r Encounter Details Date Type Department Care Team (Late st Contact Info) Description 05/12/2019 5:30 PM MIDDLE SCHOOL ENGLISH TEACHER Lab [facility] ([facility]) [address] [place] [phone] Jonathan Pardo MD [address] [place] [address] [address] Low bone mass Discharge Disposition: Discharge to home or self care Social History Tobacco Use Types Packs/Day Years Used Date Smoking Tobacco: Never Smokeless Tobacco: Never Alcohol Use Standard Drinks/Week Comments No 0 (1 standard drink = 0.6 oz pur e alcohol) Sex and Gender Information Value Date Recorded Sex Assigned at Not on file Legal Sex Male 11:11 PM 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 SCHOOL 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 TEACHER Gender Identity Not on file Sexual Orientation Not on file documented as of this encounter Discharge Disposition Disposition Code Departure Means Destination Discharge to home or self care documented in this encounter Progress Notes * Eliana Quevedo MD - 05/12/2019 5:30 PM CST CBC OK [employer] SCHOOL ENGLISH TEACHER documented in this encounter Plan of Treatment Not on file documented as of this encounter Procedures Procedure Name Priority Date/Time Associated Diagnosis Comments VITAMIN D 25 HYDROXY Routine 05/12/2019 4:15 PM MIDDLE SCHOOL ENGLISH TEACHER Low bone mass COMPREHENSIVE METABOLIC PANEL Routine 05/12/2019 4:15 PM MIDDLE SCHOOL ENGLISH TEACHER Low bone mass DIFFERENTIAL AUTO Routine 05/12/2019 4:0 5 PM MIDDLE SCHOOL ENGLISH TEACHER CBC WITH AUTO DIFFERENTIAL Routine 05/12/2019 4:05 PM MIDDLE SCHOOL ENGLISH TEACHER documented in this encounter Results * Comprehensive metabolic panel (05/12/2019 4:15 PM MIDDLE SCHOOL ENGLISH TEACHER) Sodium 140 135 - 145 mmol/L [facility] Potassium, pl 4.1 3.3 - 4.9 mmol/L [facility] Chloride 104 97 - 110 mmol/L [facility] CO2 28 22 - 32 mmol/L [facility] Anion gap 8 2 - 15 mmol/L [facility] BUN 14 8 - 25 mg/dL [facility] Creatinine 0.92 0.80 - 1.30 mg/dL [facility] Glucose 99 70 - 199 mg/dL [facility] Comment: Interpretive Data Fasting glucose [...] BJ Blood specimen (specimen) 05/12/2019 4:15 PM MIDDLE SCHOOL ENGLISH TEACHER 05/12/2019 4:15 PM MIDDLE SCHOOL ENGLISH TEACHER us Jonathan Pardo MD LAB BLOOD ORDERABLES Final Result [facility] Department [place] [address] * Vitamin D 25 hydroxy (05/12/2019 4:15 PM MIDDLE SCHOOL ENGLISH TEACHER) Pathologist [facility] Vitamin D 25-OH 38 30 - 80 ng/mL [facility] Blood specimen (specimen) 05/12/2019 4:15 PM MIDDLE SCHOOL ENGLISH TEACHER 05/12/2019 4:15 PM MIDDLE SCHOOL ENGLISH TEACHER us Jonathan Pardo MD LAB BLOOD ORDERABLES Final Result Performing Organization Address City/[facility] Co de Phone Number [facility] Department [place] [address] * Differential, auto (05/12/2019 4:05 PM MIDDLE SCHOOL ENGLISH TEACHER) Pathologist [facility] Neutrophil abs 3.5 1.7 - 6.5 K/cumm [facility] Imm gran abs 0.0 0.0 - 0.1 K/cumm [facility] Lymphocyte abs 2.8 0.8 - 3.3 K/cumm [facility] Monocyte abs 0.5 0.2 - 0.8 K/cumm [facility] Eosinophil abs 0.1 0.0 - 0.5 K/cumm [facility] Basophil abs 0.0 0.0 - 0.1 K/cumm [facility] Neutrophil pct 50.6 % [facility] Comment: Interpretive Data [...] revised on 2017. Lymphocyte pct 39.9 % [facility] Comment: Interpretive Data Percent cell count reference ranges are not reported, since discordance with absolute values may lead to misinterpretation of CBC data. Current Interpretive Data was last revised on 2017. Monocyte pct 7.1 % [facility] Comment: Interpretive Data Percent cell count reference ranges are not reported, since discordance with absolute values may lead to misinterpretation of CBC data. Current Interpretive Data was last revised on 2017. Eosinophil pct 1.7 % [facility] Comment: Interpretive Data Percent cell count reference ranges are not reported, since discordance with absolute values may lead to misinterpretation of CBC data. Current Interpretive Data was last revised on 2017. Basophil pct 0.3 % [facility] Comment: Interpretive Data Percent cell count reference ranges are not reported, since discordance with absolute values may lead to misinterpretation of CBC data. Current Interpretive Data was last revised on 2017. Blood specimen (specimen) 05/12/2019 4:05 PM MIDDLE SCHOOL ENGLISH TEACHER 05/12/2019 4:26 PM MIDDLE SCHOOL ENGLISH TEACHER us Eliana Quevedo MD LAB BLOOD ORDERABLE S Final Result [facility] Department [place] [address] * (ABNORMAL) CBC with auto differential (05/12/2019 4:05 PM MIDDLE SCHOOL ENGLISH TEACHER) WBC 7.0 3.8 - 9.9 K/cumm [facility] Hgb 12.9(L) 13.0 - 17.5 g/dL [facility] Hct 38.6(L) 38.9 - 50.3 % [facility] Plt 264 150 - 400 K/cumm [facility] MPV 10.6 9.1 - 12.3 fL [facility] RBC 3.90(L) 4.30 - 5.80 M/cumm [facility] MCV 99.0(H) 81.3 - 96.4 fL [facility] MCH 33.1 27.1 - 33.3 pg [facility] MCHC 33.4 32.3 - 35.7 g/dL [facility] RDW CV 14.4 11.1 - 14.9 % [facility] RDW SD 52.3(H) 35.7 - 48.1 fL [facility] NRBC abs 0.00 0.00 - 0.01 K/cumm [facility] Blood specimen (specimen) 05/12/2019 4:05 PM MIDDLE SCHOOL ENGLISH TEACHER 05/12/2019 4:26 PM MIDDLE SCHOOL ENGLISH TEACHER us Eliana Quevedo MD LAB BLOOD ORDERABLE S Final Result [facility] [address] [facility] Department [place] [address] documented in this encounter Visit Diagnoses Diagnosis Low bone mass documented in this encounter Care Teams Inside Sales Consultant Relationship Specialty Start Date End Date Lanre Parekh DO PCP - General Family Medicine 01/23/19 documented as of this encounter
--- OUTSIDE RECORDS SUMMARY | 2024-07-09 09:58 | XMS_ITS | Encounter Summary ---
Author Organization [facility] Address [address] [place] [address] Phone Care Team Providers Care Bioinformatics Computer Scientist Name Role Phone Lanre Parekh Primary Care Provide r Encounter Details Date Type Department Care Team (Late st Contact Info) Description 05/13/2019 Orders Only [facility] Gastroenterology [facility] Medicine 8th [place] [address] [place] [phone] Padma Mendoza, JOSH Crohn's disease of both [...] on file 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
--- OUTSIDE RECORDS SUMMARY | 2024-07-09 09:58 | XMS_ITS | Encounter Summary ---
Author Organization [facility] Address [address] [place] [address] Phone Care Team Providers Care Specialty Manufacturing Supervisor Name Role Phone Trenton Bess MD Primary Care Provider [phone] Encounter Details Date Type Department Care Team (Late st Contact Info) Description 08/14/2018 Telephone [facility] Gastroenterology [address] 8th [place] [address] [place] [phone] Eliana Quevedo MD [address] [place] [address] Social History Tobacco Use Types Packs/Day Years Used Date Smoking Tobacco: Never Smokeless Tobacco: Never Alcohol Use Standard Drinks/Week Comments No 0 (1 standard drink = 0.6 oz pur e alcohol) Sex and Gender Information Value Date Recorded Sex Assigned at Not on file 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 Per Padma yes, and if they are going to pu tpt on abx, pt to cb with name of abx. ONE BUTTON PASTER documented in this encounter Plan of Treatment Not on file documented as of this encounter Visit Diagnoses Not on filedocumented in this encounter Care Teams Specialty Manufacturing Supervisor Relationship Specialty Start Date End Date Trenton Bess MD PCP - General 07/29/18 01/22/19 documented as of this encounter
--- OUTSIDE RECORDS SUMMARY | 2024-07-09 09:58 | XMS_ITS | Encounter Summary ---
Author Organization [facility] Address [address] [place] [address] Phone Care Team Providers Care Shop Firer/Fireman Name Role Phone Lanre Parekh Primary Care Provide r Encounter Details Date Type Department Care Team (Late st Contact Info) Description 05/15/2019 Orders Only [facility] Gastroenterology [facility] Medicine 8th [place] [address] [place] [phone] Padma Mendoza RN Bile salt-induced diarrhea (Primary Dx); Diarrhea, unspecified type Social History Tobacco Use Types Packs/Day Years Used Date Smoking Tobacco: Never Smokeless Tobacco: Never Alcohol Use Standard Drinks/Week Comments No 0 (1 standard drink = 0.6 oz pur e alcohol) Sex and Gender Information Value Date Recorded Sex Assigned at Not on file 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
--- OUTSIDE RECORDS SUMMARY | 2024-07-09 09:58 | XMS_ITS | Encounter Summary ---
Author Organization [facility] Address [address] [place] [address] Phone Care Team Providers Care Last Turner Name Role Phone EduinLanre milan DO Primary Care Provide r Reason for Visit * Reason Comments Consult * Consultation (Routine) - Closed Specialty Diagnoses / Procedures Referred By Renay rivero Referred To Contact Sleep Medicine Diagnoses Sleep apnea, unspecified type Eliana Quevedo MD Phone: tel: fax: Bhupendra Velasquez MD [address] [place] [address] Phone: tel: fax: Referral ID Status Reason Start Date Expiration Date V isits Requested Visits Authorized [id number] Closed Specialty Services Required 01/23/2019 08/03/2020 1 1 Encounter Details Date Type Department Care Team (Late st Contact Info) Description 04/03/2019 11:00 AM CDT Office Visit [facility] Neuro Sleep [address] 6th [address] [place] [address] Davion Samuel NP [address] [place] [address] Obstructive sleep apnea (Primary Dx) Social History Tobacco Use Types Packs/Day Years Used Date Smoking Tobacco: Never Smokeless Tobacco: Never Alcohol Use Standard Drinks/Week Comments No 0 (1 standard drink = 0.6 oz pur e alcohol) Sex and Gender Information Value Date Recorded Sex Assigned at Not on file 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 Other 11/16/2017 04/03/2019 documented as of this encounter Care Teams Last Turner Relationship Specialty Start Date End Date Lanre Parekh DO PCP - General Family Medicine 01/23/19 documented as of this encounter
--- OUTSIDE RECORDS SUMMARY | 2024-07-09 09:58 | XMS_ITS | Encounter Summary ---
Author Organization [facility] Address [address] [place] [address] Phone Care Team Providers Care Reactor Service Operator Name Role Phone Trenton Bess MD Primary Care Provider [phone] Encounter Details Date Type Department Care Team (Late st Contact Info) Description 12/17/2018 Orders Only [facility] Gastroenterology [facility] 8th [place] [address] [place] [phone] Padma Mendoza, JOSH Crohn's disease of both [...] on file Legal Sex Male 11:11 PM HANDLE BENDER Gender Identity Not on file Sexual Orientation [...] ?[facility] ?COPY TO ACCOUNT ?[id number] ?[place] [address] 01/03/2019 8:33 AM CDT 01/03/2019 8:34 AM CDT Narrative [facility] - 01/07/2019 12:20 PM CDT FASTING:NO FASTING: NO Eliana Quevedo MD LAB BLOOD ORDERABLE S Final Result Performing Organization Address City/[facility]/ZIP Co de Phone Number [facility] * (ABNORMAL) [...] analytical performance characteristics have been determined by [employer] Caroline Rojas. It has not been cleared or approved by the US Food and Drug Administration. This assay has been validated pursuant to the CLIA regulations and is used for clinical purposes. Blood specimen (specimen) 01/03/2019 8:33 AM CDT 01/03/2019 8:34 AM CDT Narrative [facility] - 01/07/2019 12:20 PM CDT FASTING:NO FASTING: NO Resulting Agency Comment Performing Organization Information: ?Site ID: [id number] ?Name: [facility] [employer] ?Address: [address] [place] [address] ?Director: Marcio Gomes M.D., Ph.D Eliana Quevedo MD LAB BLOOD ORDERABLE S Final Result Performing Organization Address City/[facility]/ZIP Co de Phone Number [facility] [place], [place] * Hepatic function panel (01/03/2019 8:33 AM CDT) Pathologist [facility] Protein, Total 8.0 6.4 - 8.4 g/dL [...] Agency Comment Performing Organization Information: ?Site ID: OK ?Name: [facility] ?Address: [address] [place], [place] [address] [address] ?Director: Christopher Salas D.O., MPH Eliana Quevedo MD LAB BLOOD ORDERABLE S Final Result [facility] [place] * CBC with auto differential (01/03/2019 8:33 AM CDT) Pathologist [facility] WBC 6.5 3.8 - 10.8 Thousand/u L [...] abs 2,678 850 - 3,900 cells/uL [facility] [place] Monocyte abs 273 200 - 950 cells/uL [facility] [place] Eosinophils, abs 52 15 - 500 cells/uL [facility] [place] Basophils, abs 39 0 - 200 cells/uL [facility] [place] Neutrophils 53.2 % [facility] [place] Lymphocyte pct 41.2 % [facility] [place] Monocytes 4.2 % [facility] [place] Eosinophils 0.8 % [facility] [place] Basophils 0.6 % [facility] [place] Blood specimen (specimen) 01/03/2019 8:33 AM CDT 01/03/2019 8:34 AM CDT Narrative [facility] - 01/07/2019 12:20 PM CDT FASTING:NO FASTING: NO Resulting Agency Comment Performing Organization Information: ?Site ID: [id number] ?Name: [facility] ?Address: [address] [address] ?Director: Christopher Salas D.O. MPH Eliana Quevedo [...] documented as of this encounter Care Teams Reactor Service Operator Relationship Specialty Start Date End Date Trenton Bess MD PCP - General 07/29/18 01/22/19 documented as of this encounter
--- OUTSIDE RECORDS SUMMARY | 2024-07-09 09:58 | XMS_ITS | Encounter Summary ---
Author Organization [facility] Address [address] [place] [address] Phone Care Team Providers Care Bellman Name Role Phone Trenton Bess MD Primary Care Provider [phone] Encounter Details Date Type Department Care Team (Late st Contact Info) Description 12/09/2018 Orders Only [facility] Gastroenterology [address] [facility] 8th [place] [address] [place] [address] Eliana Quevedo MD [address] [place] [address] Crohn's disease of both small and large intestine with intestinal obstruction (CMS/HCC) (Primary Dx) Social History Tobacco Use Types Packs/Day Years Used Date Smoking Tobacco: Never Smokeless Tobacco: Never Alcohol Use Standard Drinks/Week Comments No 0 (1 standard drink = 0.6 oz pur e alcohol) Sex and Gender Information Value Date Recorded Sex Assigned at Not on file 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
--- OUTSIDE RECORDS SUMMARY | 2024-07-09 09:58 | XMS_ITS | Encounter Summary ---
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 Co de Phone Number [facility] [place] [address] * Ova and parasite examination Stool (10/18/2018 9:30 AM CDT) Report Final Report: No parasites detected. Note: treatment with antibiotics; e.g., Clindamycin, Metronidazole, Tetracycline, and Trimethoprim-s ulfa can adversely affect the detection of ova and parasites. [facility] Stool 10/18/2018 9:30 AM CDT 10/18/2018 11:10 AM CDT Narrative [facility] - 10/21/2018 2:54 PM CDT Received in PVA and Formalin. Eliana Quevedo MD LAB MICROBIOLOGY - GENERAL ORDERABLES Final Result Performing Organization Address [facility] de Phone Number [facility] Department [place] [address] * Stool culture Stool Rectum (10/18/2018 9:30 AM CDT) Direct Specimen Exam Shiga Toxin Testing: Antigen detection assay for Shiga-toxin NEGATIVE for Shiga Toxin 1 and Shiga Toxin 2. [facility] Report Final Report: No growth of enteric bacterial pathogens [facility] Stool (Rectum) 10/18/2018 9: 30 AM CDT 10/18/2018 11:14 AM CDT Narrative [facility] - 10/22/2018 10:30 AM CDT Testing performed by [facility] Microbiology Laboratory ([phone]). Routine stool cultures include procedures to detect Salmonella, Shigella, Edwardsiella, Aeromonas, Pleisiomonas, Campylobacter, Yersinia, E. coli O157, and Shiga-like toxins. ?? Vibrio is cultured only upon special request. ??If Vibrio is suspected, please call the laboratory at [phone]. Interpretive data was last updated November 06, 2016. Eliana Quevedo MD LAB MICROBIOLOGY - GENERAL ORDERABLES Final Result Performing Organization Address [facility] Co de Phone Number [facility] [place] [address] * Clostridium difficile assay Stool (10/18/2018 9:30 AM CDT) Report Final Report: Negative for: Clostridium difficile toxin. [facility] Stool 10/18/2018 9:30 AM CDT 10/18/2018 11:13 AM CDT Narrative [facility] - 10/19/2018 5:03 AM CDT Eliana Quevedo MD LAB MICROBIOLOGY - GENERAL ORDERABLES Final Result Performing Organization Address [facility] de Phone Number [facility] [place] [address] documented in this encounter Visit Diagnoses Diagnosis Crohn's disease of both small and large intestine with intestinal obstruction (HCC)- Primary Diarrhea, unspecified type Crohn's disease of both small and large intestine with intestinal obstruction (HCC) Diarrhea, unspecified type documented in this encounter Care Teams Professional Development Instructor Relationship Specialty Start Date End Date Trenton Bess MD PCP - General 07/29/18 01/22/19 documented as of this encounter
--- OUTSIDE RECORDS SUMMARY | 2024-07-09 09:58 | XMS_ITS | Encounter Summary ---
Author Organization [facility] Address [address] [place] [address] Phone Care Team Providers Care Dental Resident Name Role Phone Lanre Parekh DO Primary Care Provide r Encounter Details Date Type Department Care Team (Late st Contact Info) Description 02/10/2019 Orders Only [facility] Gastroenterology [address] [facility] 8th [place] [address] [place] [address] Padma Mendoza, JOSH Social History Tobacco Use Types Packs/Day Years Used Date Smoking Tobacco: Never Smokeless Tobacco: Never Alcohol Use Standard Drinks/Week Comments No 0 (1 standard drink = 0.6 oz pur e alcohol) Sex and Gender Information Value Date Recorded Sex Assigned at Not on file 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
--- OUTSIDE RECORDS SUMMARY | 2024-07-09 09:58 | XMS_ITS | Encounter Summary ---
Author Organization [facility] Address [address] [place] [address] Phone Care Team Providers Care Production Shift Supervisor Name Role Phone Lanre Parekh Primary Care Provide r Encounter Details Date Type Department Care Team (Late st Contact Info) Description 01/23/2019 11:30 AM CDT Office Visit [facility] Gastroenterology [address] 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
--- OUTSIDE RECORDS SUMMARY | 2024-07-09 09:58 | XMS_ITS | Encounter Summary ---
Author Organization [facility] Address [address] [place] [address] Phone Care Team Providers Care Welder Tech Name Role Phone Lanre Parekh Primary Care Provide r Encounter Details Date Type Department Care Team (Late st Contact Info) Description 04/22/2019 Documentation [facility] Gastroenterology [facility] 8th [place] [address] [place] [phone] Shanika Braun Social History Tobacco Use Types Packs/Day Years Used Date Smoking Tobacco: Never Smokeless Tobacco: Never Alcohol Use Standard Drinks/Week Comments No 0 (1 standard drink = 0.6 oz pur e alcohol) Sex and Gender Information Value Date Recorded Sex Assigned at Not on file Legal Sex Male 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
--- OUTSIDE RECORDS SUMMARY | 2024-07-09 09:58 | XMS_ITS | Encounter Summary ---
Author Organization [facility] Address [address] [place] [address] Phone Care Team Providers Care Court Specialist Name Role Phone Trenton Bess MD Primary Care Provider [phone] Encounter Details Date Type Department Care Team (Late st Contact Info) Description 10/17/[address] 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
--- OUTSIDE RECORDS SUMMARY | 2024-07-09 09:58 | XMS_ITS | Encounter Summary ---
Author Organization [facility] Address [address] [place] [address] Phone Care Team Providers Care Leaf Blender Name Role Phone Lanre Parekh Primary Care Provide r Reason for Visit * Reason Comments Osteopenia * Diagnostic Imaging (Routine) - Closed Specialty Diagnoses / Procedures Referred By Renay rivero Referred To Contact Diagnoses Low bone mass Procedures Dexa Appendicular Bone Density Fernando Mckeon MD Phone: tel: fax: [facility] (All Locations) Referral ID Status Reason Start Date Expiration Date Visits Re quested Visits Authorized [id number] Closed 05/06/2018 07/01/2020 1 99 Encounter Details Date Type Department Care Team (Late st Contact Info) Description 05/12/2019 2:10 PM CLOTH CLASSER Clinical Support [facility] [address] [place] [address] Advanced Medicine 5th [place] [address] [place] [address] Low bone mass Social History Tobacco Use Types Packs/Day Years Used Date Smoking Tobacco: Never Smokeless Tobacco: Never Alcohol Use Standard Drinks/Week Comments No 0 (1 standard drink = 0.6 oz pur e alcohol) Sex and Gender Information Value Date Recorded Sex Assigned at Not on file Legal Sex Male 11:11 PM CLOTH CLASSER Gender Identity Not on file Sexual Orientation Not on file documented as of this encounter Plan of Treatment Not on file documented as of this encounter Procedures Procedure Name Priority Date/Time Associated Diagnosis Comments DEXA APPENDICULAR BONE DENSITY Schedule Routine, Read Routine (OP Routine) 05/12/2019 2:29 PM CLOTH CLASSER Low bone mass documented in this encounter Results * Dexa Appendicular Bone Density (05/12/2019 2:29 PM CLOTH CLASSER) Anatomical Region Laterality Modality Wrist N/A Radiographic Nancy ging Narrative 05/13/2019 12:23 PM CLOTH CLASSER Patient Name: Nic Teran Date of : 1990 Date of scan: 05/12/2019 Bone mineral density was performed on a HoloI-frontdesk Discovery Densitometer. ?? Machine Cross-calibration and Precision [...] by the International Society of Clinical Densitometry. [id number] Fernando Mckeon MD IMG DXA PROCEDURES Edited Resul t - Final documented in this encounter Visit Diagnoses Diagnosis Low bone mass documented in this encounter Care Teams Leaf Blender Relationship Specialty Start Date End Date Lanre Parekh DO PCP - General Family Medicine 01/23/19 documented as of this encounter
--- OUTSIDE RECORDS SUMMARY | 2024-07-09 09:58 | XMS_ITS | Encounter Summary ---
Author Organization [facility] Address [address] [place] [address] Phone Care Team Providers Care Guest Services Name Role Phone Trenton Bess MD Primary Care Provider [phone] Encounter Details Date Type Department Care Team (Late st Contact Info) Description 01/08/2019 Orders Only [facility] Gastroenterology [facility] 8th [place] [address] [place] [phone] Padma Mendoza, JOSH Crohn's disease of both [...] on file Legal Sex Male 11:11 PM 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
--- OUTSIDE RECORDS SUMMARY | 2024-07-09 09:58 | XMS_ITS | Encounter Summary ---
Author Organization [facility] Address [address] [place] [address] Phone Care Team Providers Care Rice Dryer Mechanic Name Role Phone Trenton Bess MD Primary Care Provider [phone] Encounter Details Date Type Department Care Team (Late st Contact Info) Description 09/09/2018 Orders Only [facility] Gastroenterology [facility] 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
--- OUTSIDE RECORDS SUMMARY | 2024-07-09 09:58 | XMS_ITS | Encounter Summary ---
Author Organization [facility] Address [address] [place] [address] Phone Care Team Providers Care Poultry Veterinarian Name Role Phone Trenton Bess MD Primary Care Provider [phone] Encounter Details Date Type Department Care Team (Late st Contact Info) Description 01/17/2019 Orders Only [facility] Gastroenterology [address] [facility] 8th [place] [address] [place] [phone] Meaghan, Gemecih, RMA Social History Tobacco Use Types Packs/Day Years Used Date Smoking Tobacco: Never Smokeless Tobacco: Never Alcohol Use Standard Drinks/Week Comments No 0 (1 standard drink = 0.6 oz pur e alcohol) Sex and Gender Information Value Date Recorded Sex Assigned at Not on file Legal Sex Male 11:11 PM 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
--- OUTSIDE RECORDS SUMMARY | 2024-07-09 09:58 | XMS_ITS | Encounter Summary ---
Author Organization [facility] Address [address] [place] [address] Phone Care Team Providers Care Land Appraiser Name Role Phone Lanre Parekh DO Primary Care Provide r Encounter Details Date Type Department Care Team (Late st Contact Info) Description 05/06/2019 Orders Only [facility] Gastroenterology [facility] Medicine 8th [place] [address] [place] [address] Padma Mendoza, JOSH Crohn's disease of small [...] file Legal Sex Male 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
--- OUTSIDE RECORDS SUMMARY | 2024-07-09 09:58 | XMS_ITS | Encounter Summary ---
Author Organization [facility] Address [address] [place] [address] Care Team Providers Care Tetryl Screen Operator Name Role Phone Trenton Bess MD Primary Care Provider [phone] Encounter Details Date Type Department Care Team (Late st Contact Info) Description 10/18/2018 9:35 AM CDT Lab [facility] Advanced [facility] Advanced Medicine ([facility]) [facility] [place] [phone] Eliana Quevedo MD [facility] [address] [place], [place] [id number] Crohn's disease of both small and large [...] WBC, fecal 0 0 - 0 /[facility] Stool 10/18/2018 12:0 0 PM CDT 10/18/2018 1:20 PM CDT Narrative [facility] - 10/18/2018 1:27 PM CDT Eliana Quevedo MD LAB BODY FLUIDS AND STOOLS ORDERABLES Final Result [facility] Department [place] [address] * Cryptosporidium and giardia antigen assay Stool (10/18/2018 9:30 AM CDT) Report Final Report: Negative for Giardia lamblia antigen Negative for Cryptosporidium antigen [facility] Organism NEGATIVE FOR GIARDIA LAMBLIA ANTIGEN [facility] Organism NEGATIVE FOR CRYPTOSPORIDIUM ANTIGEN [facility] Stool 10/18/2018 9:30 AM CDT 10/18/2018 11:11 AM CDT Narrative [facility] - 10/18/2018 11:11 AM CDT Received in PVA and Formalin. This test is an Immunoassay which screens for Cryptosporidium and Giardia only. ??Please request Microscopic OP Exam if comprehensive examination for ova and parasites is required. ?? Current interpretive data was last revised on 04. Eliana Quevedo MD LAB MICROBIOLOGY - GENERAL ORDERABLES Final Result Performing Organization Address [facility] Co de Phone Number [facility] [place] [address] * Ova and parasite examination Stool (10/18/2018 9:30 AM CDT) Report Final Report: No parasites detected. Note: treatment with antibiotics; e.g., Clindamycin, Metronidazole, Tetracycline, and Trimethoprim-s ulfa can adversely affect the detection of ova and parasites. [facility] Stool 10/18/2018 9:30 AM CDT 10/18/2018 11:10 AM CDT Narrative [facility] - 10/21/2018 2:54 PM CDT Received in PVA and Formalin. Eliana Quevedo MD LAB MICROBIOLOGY - GENERAL ORDERABLES Final Result Performing Organization Address [facility] [place] [address] * Stool culture Stool Rectum (10/18/2018 9:30 AM CDT) Direct Specimen Exam Shiga Toxin Testing: Antigen detection assay for Shiga-toxin NEGATIVE for Shiga Toxin 1 and Shiga Toxin 2. [facility] Report Final Report: No growth of enteric bacterial pathogens [facility] Stool (Rectum) 10/18/2018 9: 30 AM CDT 10/18/2018 11:14 AM CDT Narrative [facility] - 10/22/2018 10:30 AM CDT Testing performed by [facility] Microbiology Laboratory ([phone]). Routine stool cultures include procedures to detect Salmonella, Shigella, Edwardsiella, Aeromonas, Pleisiomonas, Campylobacter, Yersinia, E. coli O157, and Shiga-like toxins. ?? Vibrio is cultured only upon special request. ??If Vibrio is suspected, please call the laboratory at [phone]. Interpretive data was last updated November 06, 2016. Eliana Quevedo MD LAB MICROBIOLOGY - GENERAL ORDERABLES Final Result Performing Organization Address [facility] [place] [place] [address] * Clostridium difficile assay Stool (10/18/2018 9:30 AM CDT) Report Final Report: Negative for: Clostridium difficile toxin. [facility] Stool 10/18/2018 9:30 AM CDT 10/18/2018 11:13 AM CDT Narrative [facility] - 10/19/2018 5:03 AM CDT Eliana Quevedo MD LAB MICROBIOLOGY - GENERAL ORDERABLES Final Result Performing Organization Address [facility] Co de Phone Number [facility] [place] [address] documented in this encounter Visit Diagnoses Diagnosis Crohn's disease of both small and large intestine with intestinal obstruction (HCC) Diarrhea, unspecified type documented in this encounter Care Teams Tetryl Screen Operator Relationship Specialty Start Date End Date Trenton Bess MD PCP - General 07/29/18 01/22/19 documented as of this encounter
--- OUTSIDE RECORDS SUMMARY | 2024-07-09 09:59 | XMS_ITS | Encounter Summary ---
Author Organization [facility] Healthcare Address [address] [place] [address] Care Team Providers Care Office Manager Receptionist Name Role Phone Trenton Bess MD Primary Care Provider [phone] Encounter Details Date Type Department Care Team (Late st Contact Info) Description 08/02/2018 8:00 AM MANUFACTURING ASSISTANT - 08/02/2018 8:30 AM [facility] Surgery [facility] Endoscopy [address] [facility] [address] Eliana Quevedo MD [address] [facility] [address] [place], [place] [id number] COLON DILATION 10R>STRICT Surgery Details Date/Time Status Location OR Service Patient Class Case Class Case Type Trauma Case? 08/02/2018 8:00 AM Posted [facility] ENDOSCOPY [facility] 02 Gastroenterology Outpatient Elective [...] on file Legal Sex Male 11:11 PM MANUFACTURING ASSISTANT Gender Identity Not on file Sexual Orientation Not on file documented as of this encounter Last Filed Vital Signs Vital Sign Reading Time Taken Comments Blood Pressure 138/81 08/02/2018 6:59 AM MANUFACTURING ASSISTANT Pulse 87 08/02/2018 6:59 AM MANUFACTURING ASSISTANT Temperature 36.1 ??C (97 ??F) 08/02/2018 6:59 AM MANUFACTURING ASSISTANT Respiratory Rate 20 08/02/2018 6:59 AM MANUFACTURING ASSISTANT Oxygen Saturation 96% 08/02/2018 6:59 AM MANUFACTURING ASSISTANT Inhaled Oxygen Concentration - - Weight 76.2 kg (168 lb) 08/02/2018 6:59 AM MANUFACTURING ASSISTANT Height 170.2 cm (5' 7 ) 08/02/2018 6:59 AM MANUFACTURING ASSISTANT Body Mass Index 26.31 08/02/2018 6:59 AM MANUFACTURING ASSISTANT documented in this encounter Medications at [...] 09/2018) 40 tablet 2 07/30/2018 9 omega 4-bww-uyk-fish oil 300-1,000 mg capsule 1 capsule every [...] Date End Date Taking? Authorizing Provider omega 1-xrq-mgo-fish oil 300-1,000 mg capsule 1 capsule every [...] planned procedure for the reasons stated above. FACTURING ASSISTANT documented in this encounter Procedure Notes * Eliana Quevedo MD - 08/02/2018 8:01 AM CSTAssociated Order(s): COLONOSCOPY ENDOSCOPY LAB Patient Name: Nic Teran Procedure Date: 08/02/2018 8:01 AM Date of : 1990 Admit Type: Outpatient Age: 27 Gender: Male Attending MD: Eliana Quevedo M.D. Room: [place] [address] Note Status: Finalized Procedure Date No Time: [...] scope was passed under direct vision. The [id number] was introduced through the anus and advanced to the 15 cm into the ileum. The colonoscopy was performed without difficulty. The patient tolerated the procedure well. The quality of the bowel preparation was evaluated using the BBPS (Excel Bowel Preparation Scale) with scores of: Right [...] 0 Note Initiated On: 08/02/2018 8:01 AM FACTURING ASSISTANT documented in this encounter Miscellaneous Notes * Perioperative Nursing Note - Kelli Betancourt RN - 08/02/2018 9:45 AM MANUFACTURING ASSISTANT Labs drawn and sent FACTURING ASSISTANT * Pre-Procedure Instructions - Dina Erickson RN - 07/31/2018 3:28 PM MANUFACTURING ASSISTANT Come to [facility] hospital entrance and register at desk. Follow any and all instructions given to you re:bowel prep. Bring tilt tray driver's license or photo ID, insurance cards. Leave any valuables at home including jewelry, [place]. Bring case for eye glasses. Dress comfortably. Please have ride arranged to and from hospital with a responsible adult-someone who knows you and that can care for you. FACTURING ASSISTANT documented in this encounter Plan of Treatment Not on file documented as of this encounter Procedures Procedure Name Priority Date/Time Associated Diagnosis Comments ADALIMUMAB QUANTITATIVE WITH REFLEX TO ANTIBODY, SERUM Routine 08/02/2018 9:47 AM MANUFACTURING ASSISTANT Crohn's disease of both small and large intestine without complication (CMS/HCC) High risk medications (not anticoagulants) long-term use COLON DILATION 10R>STRICT 08/02/2018 8:04 AM MANUFACTURING ASSISTANT Crohn's disease of both small and large intestine with other complication (CMS/HCC) COLONOSCOPY 08/02/2018 8:01 AM MANUFACTURING ASSISTANT documented in this encounter Results * Adalimumab quantitative with reflex to antibody, serum (08/02/2018 9:47 AM MANUFACTURING ASSISTANT) ADALX Quant 11.0 mcg/mL [facility] Comment: For clinical assessment of response to therapy, adalimumab should be measured at trough. When adalimumab trough concentrations are greater than 5.0 mcg/mL, clinically relevant mewjvvfshi-zm-vpqwsqlwuq are unlikely and reflex testing will not be performed. REFERENCE VALUE Limit of Quantitation = 0.8 mcg/mL ADDITIONAL INFORMATION This test was developed and its performance characteristics determined by [facility] in a manner consistent with CLIA requirements. This test has not been cleared or approved by the U.S. Food and Drug Administration. Test Performed by: [facility] Laboratories - [facility] [address] [place] [address] Blood specimen (specimen) 08/02/2018 9:47 AM MANUFACTURING ASSISTANT 08/02/2018 10:39 AM MANUFACTURING ASSISTANT Narrative [facility] - 08/06/2018 5:55 PM MANUFACTURING ASSISTANT us Eliana Quevedo MD LAB BLOOD ORDERABLE S Final Result [facility] [address] Department [place] [address] * COLONOSCOPY (08/02/2018 8:01 AM MANUFACTURING ASSISTANT) Anatomical Region Laterality Modality Other Narrative Procedure Note Eliana Quevedo MD - 08/02/2018 8:01 AM CST ENDOSCOPY LAB Patient Name: Nic Teran Procedure Date: 08/02/2018 8:01 AM Date of : 1990 Admit Type: Outpatient Age: 27 Gender: Male Attending MD: Eliana Quevedo M.D. Room: [place] [address] Note Status: Finalized Procedure Date No Time: [...] Thescope was passed under direct vision. The [id number] introduced through the anus and advanced to the 15 cminto the ileum. The colonoscopy was performed without difficulty. The patient tolerated the procedure well.The quality of the bowel preparation was evaluated usingthe BBPS (Excel Bowel Preparation Scale) with scores of: Right [...] Pre-Procedure (GI) New Bag 08/02/2018 7:16 AM MANUFACTURING ASSISTANT 30 mL/hr 30 mL/hr documented in this encounter Discontinued Medications Medication Sig Discontinue Reason Start Date End Da te UNABLE TO FIND cbd oil 07/31/2018 documented as of this encounter Active and Recently Administered Medications Times are shown in MANUFACTURING ASSISTANT. Continuous Medication Order 07/31/2018 08/01/2018 08/02/2018 sodium [...] 07/2018 documented in this encounter Care Teams Office Manager Receptionist Relationship Specialty Start Date End Date Trenton Bess MD PCP - General 07/29/18 01/22/19 documented as of this encounter
--- OUTSIDE RECORDS SUMMARY | 2024-07-09 09:59 | XMS_ITS | Encounter Summary ---
Author Organization [facility] Address [address] [place] [address] Phone Care Team Providers Care Glass Bead Maker Name Role Phone Trenton Bess MD Primary Care Provider [phone] Encounter Details Date Type Department Care Team (Late st Contact Info) Description 06/20/2018 Documentation [facility] Gastroenterology [facility] 8th [place] [address] [place] [address] Shanika Braun Social History Tobacco Use Types Packs/Day Years Used Date Smoking Tobacco: Never Smokeless Tobacco: Never Alcohol Use Standard Drinks/Week Comments No 0 (1 standard drink = 0.6 oz pur e alcohol) Sex and Gender Information Value Date Recorded Sex Assigned at Not on file Legal Sex Male 11:11 PM VALET CASHIER Gender Identity Not on file Sexual Orientation Not on file documented as of this encounter Progress Notes * Shanika Braun - 06/20/2018 11:18 AM CST Mailed reminder packet to pt's home address for Colon T CASHIER documented in this encounter Plan of Treatment Not on file documented as of this encounter Visit Diagnoses Not on filedocumented in this encounter Care Teams Glass Bead Maker Relationship Specialty Start Date End Date Trenton Bess MD PCP - General 04/30/17 07/24/18 documented as of this encounter
--- OUTSIDE RECORDS SUMMARY | 2024-07-09 09:59 | XMS_ITS | Encounter Summary ---
Author Organization [facility] Address [address] [place] [address] Phone Care Team Providers Care Nitriles Lab Technician Name Role Phone Lanre Parekh Primary Care Provide r Trenton Bess MD Primary Care Provider [phone] Encounter Details Date Type Department Care Team (Late st Contact Info) Description 07/25/2018 Orders Only [facility] Gastroenterology [address] [facility] Advanced Medicine 8th [place] [address] [place] [phone] Eliana Quevedo MD [address] [place] [address] Swollen tonsil (Primary Dx) Social History Tobacco Use Types Packs/Day Years Used Date Smoking Tobacco: Never Smokeless Tobacco: Never Alcohol Use Standard Drinks/Week Comments No 0 (1 standard drink = 0.6 oz pur e alcohol) Sex and Gender Information Value Date Recorded Sex Assigned at Not on file Legal Sex Male 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 Padma to inform pt. Referral sent. UNICATION ELECTRONIC TECHNICIAN documented in this encounter Plan of Treatment Not on file documented as of this encounter Visit Diagnoses Diagnosis Swollen tonsil- Primary documented in this encounter Care Teams Nitriles Lab Technician Relationship Specialty Start Date End Date Lanre Parekh DO [address] [place] [address] PCP - General Family Medicine 07/25/18 07/28/18 Trenton Bess MD [address] [place] [address] PCP - General 07/29/18 01/22/19 documented as of this encounter
--- OUTSIDE RECORDS SUMMARY | 2024-07-09 09:59 | XMS_ITS | Encounter Summary ---
Author Organization [facility] Healthcare Address [address] [place] [address] Care Team Providers Care Sem Manager Name Role Phone Trenton Bess MD Primary Care Provider [phone] Encounter Details Date Type Department Care Team (Late st Contact Info) Description 08/02/2018 6:48 AM GAS COLLECTION SYSTEM OPERATOR - 08/02/2018 9:54 AM GAS COLLECTION SYSTEM OPERATOR Hospital Encounter [facility] Endoscopy [address] [place] [address] Eliana Quevedo MD [address] [place], [place] [id number] Crohn's disease of both small and large [...] file Legal Sex Male 11:11 PM GAS COLLECTION SYSTEM OPERATOR Gender Identity Not on file Sexual Orientation Not on file documented as of this encounter Last Filed Vital Signs Vital Sign Reading Time Taken Comments Blood Pressure 102/73 08/02/2018 8:55 AM GAS COLLECTION SYSTEM OPERATOR Pulse 70 08/02/2018 9:25 AM GAS COLLECTION SYSTEM OPERATOR Temperature 36.9 ??C (98.4 ??F) 08/02/2018 8:37 AM CS T Respiratory Rate 16 08/02/2018 9:25 AM GAS COLLECTION SYSTEM OPERATOR Oxygen Saturation 99% 08/02/2018 9:25 AM GAS COLLECTION SYSTEM OPERATOR Inhaled Oxygen Concentration - - Weight 76.2 kg (168 lb) 08/02/2018 6:59 AM GAS COLLECTION SYSTEM OPERATOR Height 170.2 cm (5' 7 ) 08/02/2018 6:59 AM GAS COLLECTION SYSTEM OPERATOR Body Mass Index 26.31 08/02/2018 6:59 AM GAS COLLECTION SYSTEM OPERATOR documented in this encounter Medications at Time [...] 09/2018) 40 tablet 2 07/30/2018 9 omega 7-dnc-hyx-fish oil 300-1,000 mg capsule 1 capsule every [...] Date End Date Taking? Authorizing Provider omega 3-akj-mpm-fish oil 300-1,000 mg capsule 1 capsule every [...] planned procedure for the reasons stated above. COLLECTION SYSTEM OPERATOR documented in this encounter Procedure Notes * Eliana Quevedo MD - 08/02/2018 8:01 AM CSTAssociated Order(s): COLONOSCOPY ENDOSCOPY LAB Patient Name: Nic Teran Procedure Date: 08/02/2018 8:01 AM Date of : 1990 Admit Type: Outpatient Age: 27 Gender: Male Attending MD: Eliana Quevedo M.D. Room: [place] [address] Note Status: Finalized Procedure Date No Time: [...] scope was passed under direct vision. The [id number] was introduced through the anus and advanced to the 15 cm into the ileum. The colonoscopy was performed without difficulty. The patient tolerated the procedure well. The quality of the bowel preparation was evaluated using the BBPS (Marshall Bowel Preparation Scale) with scores of: Right [...] 0 Note Initiated On: 08/02/2018 8:01 AM COLLECTION SYSTEM OPERATOR documented in this encounter Miscellaneous Notes * Perioperative Nursing Note - Kelli Betancourt RN - 08/02/2018 9:45 AM GAS COLLECTION SYSTEM OPERATOR Labs drawn and sent COLLECTION SYSTEM OPERATOR * Pre-Procedure Instructions - Dina Erickson RN - 07/31/2018 3:28 PM GAS COLLECTION SYSTEM OPERATOR Come to [facility] hospital entrance and register at desk. Follow any and all instructions given to you re:bowel prep. Bring courier driver's license or photo ID, insurance cards. Leave any valuables at home including jewelry, [place]. Bring case for eye glasses. Dress comfortably. Please have ride arranged to and from hospital with a responsible adult-someone who knows you and that can care for you. COLLECTION SYSTEM OPERATOR documented in this encounter Plan of Treatment Not on file documented as of this encounter Procedures Procedure Name Priority Date/Time Associated Diagnosis Comments ADALIMUMAB QUANTITATIVE WITH REFLEX TO ANTIBODY, SERUM Routine 08/02/2018 9:47 AM GAS COLLECTION SYSTEM OPERATOR Crohn's disease of both small and large intestine without complication (CMS/HCC) High risk medications (not anticoagulants) long-term use COLON DILATION 10R>STRICT 08/02/2018 8:04 AM GAS COLLECTION SYSTEM OPERATOR Crohn's disease of both small and large intestine with other complication (CMS/HCC) COLONOSCOPY 08/02/2018 8:01 AM GAS COLLECTION SYSTEM OPERATOR documented in this encounter Results * Adalimumab quantitative with reflex to antibody, serum (08/02/2018 9:47 AM GAS COLLECTION SYSTEM OPERATOR) ADALX Quant 11.0 mcg/mL [facility] Comment: For clinical assessment of response to therapy, adalimumab should be measured at trough. When adalimumab trough concentrations are greater than 5.0 mcg/mL, clinically relevant lgepumdudq-nc-abpcndgaxx are unlikely and reflex testing will not be performed. REFERENCE VALUE Limit of Quantitation = 0.8 mcg/mL ADDITIONAL INFORMATION This test was developed and its performance characteristics determined by [facility] in a manner consistent with CLIA requirements. This test has not been cleared or approved by the U.S. Food and Drug Administration. Test Performed by: [facility] - [address] [place] [address] Blood specimen (specimen) 08/02/2018 9:47 AM GAS COLLECTION SYSTEM OPERATOR 08/02/2018 10:39 AM GAS COLLECTION SYSTEM OPERATOR Narrative [facility] - 08/06/2018 5:55 PM GAS COLLECTION SYSTEM OPERATOR Eliana Quevedo MD LAB BLOOD ORDERABLE S Final Result [facility] [address] Department [place] [address] * COLONOSCOPY (08/02/2018 8:01 AM GAS COLLECTION SYSTEM OPERATOR) Anatomical Region Laterality Modality Other Narrative Procedure Note Eliana Quevedo MD - 08/02/2018 8:01 AM CST ENDOSCOPY LAB Patient Name: Nic Teran Procedure Date: 08/02/2018 8:01 AM Date of : 1990 Admit Type: Outpatient Age: 27 Gender: Male Attending MD: Piotr SubramanianD. Room: [facility] 02 Note Status: Finalized Procedure Date [...] Thescope was passed under direct vision. The [id number] introduced through the anus and advanced to the 15 cminto the ileum. The colonoscopy was performed without difficulty. The patient tolerated the procedure well.The quality of the bowel preparation was evaluated usingthe BBPS (Marshall Bowel Preparation Scale) with scores of: Right [...] Pre-Procedure (GI) New Bag 08/02/2018 7:16 AM GAS COLLECTION SYSTEM OPERATOR 30 mL/hr 30 mL/hr documented in this encounter Discontinued Medications Medication Sig Discontinue Reason Start Date End Da te UNABLE TO FIND cbd oil 07/31/2018 documented as of this encounter Active and Recently Administered Medications Times are shown in GAS COLLECTION SYSTEM OPERATOR. Continuous Medication Order 07/31/2018 08/01/2018 08/02/2018 sodium [...] 07/2018 documented in this encounter Care Teams Sem Manager Relationship Specialty Start Date End Date Trenton Bess MD PCP - General 07/29/18 01/22/19 documented as of this encounter
--- OUTSIDE RECORDS SUMMARY | 2024-07-09 09:59 | XMS_ITS | Encounter Summary ---
Author Organization [facility] Address [address] [place] [address] Phone Care Team Providers Care Sewing Machine Operator Plastic Zipper Name Role Phone Trenton Bess MD Primary Care Provider [phone] Encounter Details Date Type Department Care Team (Late st Contact Info) Description 07/05/2018 Telephone [facility] Gastroenterology [facility] 8th [place] [address] [place] [address] Eliana Quevedo MD [address] [place] [address] Social History Tobacco Use Types Packs/Day Years Used Date Smoking Tobacco: Never Smokeless Tobacco: Never Alcohol Use Standard Drinks/Week Comments No 0 (1 standard drink = 0.6 oz pur e alcohol) Sex and Gender Information Value Date Recorded Sex Assigned at Not on file Legal Sex Male 11:11 PM SSN/SSBN ASSISTANT NAVIGATOR Gender Identity Not on file Sexual Orientation Not on file documented as of this encounter Miscellaneous Notes * Telephone Encounter - Mona Esqueda MA - 07/08/2018 2:23 PM CST S/w pt and informed of below. Pt states the prednisone made his sore throat go away for about a week, then it returned. Pt to talk to PCP about seeing ENT. /SSBN ASSISTANT NAVIGATOR * Telephone Encounter - Veronica Morse NP - 07/08/2018 9:01 AM CST If this is still going on from , we should try to get him into see ENT /SSBN ASSISTANT NAVIGATOR * Telephone Encounter - Veronica Morse NP - 07/05/2018 4:23 PM CST Is this the same sore throat he was on prednisone for in mid-June? /SSBN ASSISTANT NAVIGATOR * Telephone Encounter - Mona Esqueda MA - 07/05/2018 4:03 PM CST Pt LMOR stating his PCP asked him to call and see if his symptoms were due to his Crohn's. Pt c/o inflamed tonsils, white streaks on tonsils, and throat pain. Please advise. /SSBN ASSISTANT NAVIGATOR documented in this encounter Plan of Treatment Not on file documented as of this encounter Visit Diagnoses Not on filedocumented in this encounter Care Teams Sewing Machine Operator Plastic Zipper Relationship Specialty Start Date End Date Trenton Bess MD PCP - General 04/30/17 07/24/18 documented as of this encounter
--- OUTSIDE RECORDS SUMMARY | 2024-07-09 09:59 | XMS_ITS | Encounter Summary ---
Author Organization [facility] Address [address] [place] [address] Phone Care Team Providers Care Commercial Real Estate Broker Name Role Phone Trenton Bess MD Primary Care Provider [phone] Encounter Details Date Type Department Care Team (Late st Contact Info) Description 08/02/2018 Orders Only [facility] Gastroenterology [address] [facility] 8th [place] [address] [place] [phone] Padma Mendoza, JOSH Crohn's disease of both [...] on file Legal Sex Male 11:11 PM COMMUNITY RELATIONS ASSISTANT Gender Identity Not on file Sexual Orientation Not on file documented as of this encounter Plan of Treatment Not on file documented as of this encounter Results * Adalimumab quantitative with reflex to antibody, serum (08/02/2018 9:47 AM COMMUNITY RELATIONS ASSISTANT) ADALX Quant 11.0 mcg/mL [facility] Comment: For clinical assessment of response to therapy, adalimumab should be measured at trough. When adalimumab trough concentrations are greater than 5.0 mcg/mL, clinically relevant pzaaapwghf-dt-qvmplqqmww are unlikely and reflex testing will not be performed. REFERENCE VALUE Limit of Quantitation = 0.8 mcg/mL ADDITIONAL INFORMATION This test was developed and its performance characteristics determined by [facility] in a manner consistent with CLIA requirements. This test has not been cleared or approved by the U.S. Food and Drug Administration. Test Performed by: [facility] - [place] [address] [employer] [address] [employer] [address] Blood specimen (specimen) 08/02/2018 9:47 AM COMMUNITY RELATIONS ASSISTANT 08/02/2018 10:39 AM COMMUNITY RELATIONS ASSISTANT Narrative [facility] - 08/06/2018 5:55 PM COMMUNITY RELATIONS ASSISTANT Eliana Quevedo MD LAB BLOOD ORDERABLE S Final Result [facility] [address] [facility]. [place] [address] documented in this encounter Visit Diagnoses Diagnosis [...] medications documented in this encounter Care Teams Commercial Real Estate Broker Relationship Specialty Start Date End Date Trenton Bess MD PCP - General 07/29/18 01/22/19 documented as of this encounter
--- OUTSIDE RECORDS SUMMARY | 2024-07-09 09:59 | XMS_ITS | Encounter Summary ---
Author Organization [facility] Address [address] [place] [address] Phone Care Team Providers Care Parking Assistant Name Role Phone Trenton Bess MD Primary Care Provider [phone] Encounter Details Date Type Department Care Team (Late st Contact Info) Description 08/08/2018 Orders Only [facility] 8th [place] [address] [place] [phone] Padma Mendoza RN Social History Tobacco Use Types Packs/Day Years Used Date Smoking Tobacco: Never Smokeless Tobacco: Never Alcohol Use Standard Drinks/Week Comments No 0 (1 standard drink = 0.6 oz pur e alcohol) Sex and Gender Information Value Date Recorded Sex Assigned at Not on file Legal Sex Male 11:11 PM RELATIONSHIP ASSOC Gender Identity Not on file Sexual Orientation [...] documented as of this encounter Care Teams Parking Assistant Relationship Specialty Start Date End Date Trenton Bess MD PCP - General 07/29/18 01/22/19 documented as of this encounter
--- OUTSIDE RECORDS SUMMARY | 2024-07-09 09:59 | XMS_ITS | Encounter Summary ---
Author Organization [facility] Address [address] [place] [address] Phone Care Team Providers Care Oil Fire Specialist Name Role Phone Trenton Bess MD Primary Care Provider [phone] Encounter Details Date Type Department Care Team (Late st Contact Info) Description 06/10/2018 Telephone [facility] Gastroenterology [facility] 8th [place] [address] [place] [phone] Eliana Quevedo MD [address] [place] [address] Social History Tobacco Use Types Packs/Day Years Used Date Smoking Tobacco: Never Smokeless Tobacco: Never Alcohol Use Standard Drinks/Week Comments No 0 (1 standard drink = 0.6 oz pur e alcohol) Sex and Gender Information Value Date Recorded Sex Assigned at Not on file Legal Sex Male 11:11 PM FINDING FASTENER Gender Identity Not on file Sexual Orientation Not on file documented as of this encounter Miscellaneous Notes * Telephone Encounter - Veronica Morse NP - 06/10/2018 8:14 AM CST I believe called relations manager GI over the weekend and went to ER ING FASTENER * Telephone Encounter - Mona Esqueda MA [...] like to know what to do. ING FASTENER documented in this encounter Plan of Treatment Not on file documented as of this encounter Visit Diagnoses Not on filedocumented in this encounter Care Teams Oil Fire Specialist Relationship Specialty Start Date End Date Trenton Bess MD PCP - General 04/30/17 07/24/18 documented as of this encounter
--- OUTSIDE RECORDS SUMMARY | 2024-07-09 09:59 | XMS_ITS | Encounter Summary ---
Author Organization [facility] Address [address] [place] [address] Phone Care Team Providers Care Manager Psychology Name Role Phone Trenton Bess MD Primary Care Provider [phone] Encounter Details Date Type Department Care Team (Late st Contact Info) Description 08/12/2018 Orders Only [facility] Gastroenterology [facility] 8th [place] [address] [place] [phone] Padma Mendoza, JOSH Crohn's disease of small [...] on file Legal Sex Male 11:11 PM ANIMATOR Gender Identity Not on file Sexual Orientation [...] SENT TO: Routine 09/07/2018 7: 28 AM ANIMATOR CBC WITH AUTO DIFFERENTIAL Routine 09/07/2018 7:28 AM ANIMATOR HEPATIC FUNCTION PANEL Routine 09/07/2018 7:28 AM ANIMATOR Crohn's disease of small and large intestines with complication (CMS/HCC) High risk medications (not anticoagulants) long-term use COPY(IES) SENT TO: Routine 08/16/2018 11 :38 AM ANIMATOR THIOPURINE METABOLITES Routine 08/16/2018 11:38 AM ANIMATOR CBC WITH AUTO DIFFERENTIAL Routine 08/16/2018 11:38 AM ANIMATOR Crohn's disease of small and large intestines with complication (CMS/HCC) High risk medications (not anticoagulants) long-term use HEPATIC FUNCTION PANEL Routine 08/16/2018 11:38 AM ANIMATOR Crohn's disease of small and large intestines with complication (CMS/HCC) High risk medications (not anticoagulants) long-term use documented in this encounter Results * COPY(IES) SENT TO: (10/05/2018 9:44 AM CDT) COPY(IES) SENT TO: [facility] Comment: ?[facility] ?COPY TO ACCOUNT ?[id number] [facility] [address] [address] ?[place] [address] 10/05/2018 9:44 AM CDT 10/05/2018 9:44 AM [...] copy faxed has been acknowledged. ?Queued to: ??[id number] Blood specimen (specimen) 10/05/2018 9:44 AM CDT 10/05/2018 9:44 AM CDT Narrative Resulting Agency Comment Performing Organization Information: ?Site ID: [place] ?Name: [facility] ?Address: [address] [address] ?Director: Christopher Salas D.O., MPH Eliana Quevedo MD LAB BLOOD ORDERABLE S Final Result [facility] [place] * CBC with auto differential (09/07/2018 7:28 AM ANIMATOR) WBC 6.5 3.8 - 10.8 Thousand/u L [...] copy faxed has been acknowledged. ?Queued to: ??[id number] 09/07/2018 7:28 AM ANIMATOR 09/07/2018 7:28 AM ANIMATOR Narrative Resulting Agency Comment Performing Organization Information: ?Site ID: [place] ?Name: [facility] ?Address: [address] [place] [address] [address] [address] ?Director: Christopher Salas D.O., MPH us Eliana Quevedo MD LAB BLOOD ORDERABLE S Final Result [facility] [place] * COPY(IES) SENT TO: (09/07/2018 7:28 AM ANIMATOR) COPY(IES) SENT TO: [facility] Comment: ?[facility] ?COPY TO ACCOUNT ?[id number] [facility] [address] [facility] [address] [address] ?[place] [address] 09/07/2018 7:28 AM ANIMATOR 09/07/2018 7:28 AM ANIMATOR us Eliana Quevedo MD LAB BLOOD ORDERABLE S Final Result [facility] * Hepatic function panel (09/07/2018 7:28 AM ANIMATOR) Protein, Total 7.8 6.4 - 8.4 g/dL [facility] [place] Albumin 4.5 3.6 - 5.1 g/dL [facility] [place] Globulin 3.3 2.2 - 4.0 g/dL (calc) [facility] [place] Alb/glob ratio 1.4 0.9 - 2.3 (calc) [facility] [place] Bilirubin, total 0.8 0.2 - 1.2 mg/dL [facility] [place] Bilirubin, direct 0.2 < OR = 0.2 mg/dL [facility] [place] Bilirubin, indirect 0.6 0.2 - 1.2 mg/dL (calc) [facility] [place] Alk phos 63 40 - 115 U/L [facility] [place] AST 16 10 - 40 U/L [facility] [place] ALT (SGPT) 26 9 - 46 U/L [facility] [place] Blood specimen (specimen) 09/07/2018 7:28 AM ANIMATOR 09/07/2018 7:28 AM ANIMATOR Narrative Resulting Agency Comment Performing Organization Information: ?Site ID: [place] ?Name: [facility] ?Address: [address] [place] [address] [address] [address] ?Director: Christopher Salas D.O., MPH us Eliana Quevedo MD LAB BLOOD ORDERABLE S Final Result [facility] [place] [address] * (ABNORMAL) Thiopurine metabolites (08/16/2018 11:38 AM ANIMATOR) [facility] 6-TG, bld 86(L) 235 - 400 pmol/8x10( [...] analytical performance characteristics have been determined by [facility]. It has not been cleared or approved by the US Food and Drug Administration. This assay has been validated pursuant to the CLIA regulations and is used for clinical purposes. ? Your request to have a duplicate copy faxed has been acknowledged. ?Queued to: ??[id number] 08/16/2018 11:3 8 AM ANIMATOR 08/16/2018 11:39 AM ANIMATOR Narrative Resulting Agency Comment Performing Organization Information: ?Site ID: [facility] ?Name: [facility] ?Address: [address] [place] [address] ?Director: Marcio Gomes M.D., Ph.D Eliana Quevedo MD LAB BLOOD ORDERABLE S Final Result Performing Organization Address [facility] de Phone Number [facility] - [place], [place] * COPY(IES) SENT TO: (08/16/2018 11:38 AM ANIMATOR) COPY(IES) SENT TO: [facility] Comment: ?[facility] ?COPY TO ACCOUNT ?[id number] [facility] [address] ?[place] [address] 08/16/2018 11:3 8 AM ANIMATOR 08/16/2018 11:39 AM ANIMATOR Eliana Quevedo MD LAB BLOOD ORDERABLE S Final Result Performing Organization Address [facility] Co de Phone Number [facility] * Hepatic function panel (08/16/2018 11:38 AM ANIMATOR) Protein, Total 7.9 6.4 - 8.4 g/dL [...] [place] Blood specimen (specimen) 08/16/2018 11:38 AM ANIMATOR 08/16/2018 11:39 AM ANIMATOR Narrative Resulting Agency Comment Performing Organization Information: ?Site ID: [place] ?Name: [facility] ?Address: [address] [address] ?Director: Christopher Salas D.O., MPH us Eliana Quevedo MD LAB BLOOD ORDERABLE S Final Result [facility] [place] * CBC with auto differential (08/16/2018 11:38 AM ANIMATOR) WBC 7.2 3.8 - 10.8 Thousand/u L [...] [place] Blood specimen (specimen) 08/16/2018 11:38 AM ANIMATOR 08/16/2018 11:39 AM ANIMATOR Narrative Resulting Agency Comment Performing Organization Information: ?Site ID: [place] ?Name: [facility] ?Address: [address] [address] ?Director: Christopher Salas D.O., MPH us Eliana Quevedo MD LAB BLOOD ORDERABLE S Final Result [facility] [place] documented in this encounter Visit Diagnoses Diagnosis Crohn's disease of small and large intestines with complication (HCC)- Primary High risk medications (not anticoagulants) long-term use Encounter for long-term (current) use of other medications documented in this encounter Care Teams Manager Psychology Relationship Specialty Start Date End Date Trenton Bess MD PCP - General 07/29/18 01/22/19 documented as of this encounter
--- OUTSIDE RECORDS SUMMARY | 2024-07-09 09:59 | XMS_ITS | Encounter Summary ---
Author Organization [facility] Address [address] [place] [address] Phone Care Team Providers Care Pie Baker Name Role Phone Lanre Parekh DO Primary Care Provide r Reason for Visit * Reason Comments Oral Swelling Sleeping Problem Encounter Details Date Type Department Care Team (Late st Contact Info) Description 07/25/2018 10:20 AM CATTLE ALLEY WORKER Office Visit [facility] Otolaryngology [facility] [address] [place] [phone] Travon Cazares MD [address] [place] [address] Chronic pharyngitis (Primary Dx) Social History Tobacco Use Types Packs/Day Years Used Date Smoking Tobacco: Never Smokeless Tobacco: Never Alcohol Use Standard Drinks/Week Comments No 0 (1 standard drink = 0.6 oz pur e alcohol) Sex and Gender Information Value Date Recorded Sex Assigned at Not on file Legal Sex Male 11:11 PM CATTLE ALLEY WORKER Gender Identity Not on file Sexual Orientation Not on file documented as of this encounter Last Filed Vital Signs Vital Sign Reading Time Taken Comments Blood Pressure 132/70 07/25/2018 10:55 AM CATTLE ALLEY WORKER Pulse - - Temperature - - Respiratory Rate - - Oxygen Saturation - - Inhaled Oxygen Concentration - - Weight 81.2 kg (179 lb) 07/25/2018 10:55 AM CATTLE ALLEY WORKER Height 170.2 cm (5' 7 ) 07/25/2018 10:55 AM CATTLE ALLEY WORKER Body Mass Index 28.04 07/25/2018 10:55 AM CATTLE ALLEY WORKER documented in this encounter Progress Notes * Trvaon Cazares MD - 07/25/2018 10:20 AM CST Otolaryngology-Head & Neck Surgery New Patient Office Visit Note Reason for Consultation. Patient is a 27 y.o. male who is being seen in consultation at the requestof Eliana Beth* for the evaluation of pharyngitis. Patient [...] Allergic rhinitis ??? Anemia ??? Crohn's disease ([facility]) ??? GERD (gastroesophageal reflux disease) ??? Iritis [...] acid (FOLVITE), hyoscyamine (LEVSIN), methotrexate, multivitamin, omega 0-pcy-esp-fish oil, and UNABLE TO FIND. Allergies. Allergies [...] the patientback in follow-up if symptoms recur. LE ALLEY WORKER documented in this encounter Plan of [...] 04/03/2019 added in this encounter Care Teams Pie Baker Relationship Specialty Start Date End Date Lanre Parekh DO [address] [place] [phone] PCP - General Family Medicine 07/25/18 07/28/18 documented as of this encounter
--- OUTSIDE RECORDS SUMMARY | 2024-07-09 09:59 | XMS_ITS | Encounter Summary ---
Author Organization [facility] Address [address] [place] [address] Phone Care Team Providers Care Game Farm Helper Name Role Phone Trenton Bess MD Primary Care Provider [phone] Encounter Details Date Type Department Care Team (Late st Contact Info) Description 07/30/2018 Orders Only [facility] Gastroenterology [facility] 8th [place] [address] [place] [phone] Padma Mendoza, RN Crohn's disease of both small and large intestine with complication (CMS/[facility]) Social History Tobacco Use Types Packs/Day Years Used Date Smoking Tobacco: Never Smokeless Tobacco: Never Alcohol Use Standard Drinks/Week Comments No 0 (1 standard drink = 0.6 oz pur e alcohol) Sex and Gender Information Value Date Recorded Sex Assigned at Not on file Legal Sex Male 11:11 PM COIL REPAIR TECHNICIAN Gender Identity Not on file Sexual [...] documented as of this encounter Care Teams Game Farm Helper Relationship Specialty Start Date End Date Trenton Bess MD PCP - General 07/29/18 01/22/19 documented as of this encounter
--- OUTSIDE RECORDS SUMMARY | 2024-07-09 09:59 | XMS_ITS | Encounter Summary ---
Author Organization [facility] Address [address] [place] [address] Phone Care Team Providers Care Management Scientist Name Role Phone Trenton Bess MD Primary Care Provider [phone] Reason for Visit * Reason Onset Date Comments Patient issue/concern 06/13/2018 Encounter Details Date Type Department Care Team (Late st Contact Info) Description 06/13/[address] Medical Office Building [address] [place] [address] Fernando Mckeon MD [address] [place] [phone] Patient issue/concern Social History Tobacco Use Types Packs/Day Years Used Date Smoking Tobacco: Never Smokeless Tobacco: Never Alcohol Use Standard Drinks/Week Comments No 0 (1 standard drink = 0.6 oz pur e alcohol) Sex and Gender Information Value Date Recorded Sex Assigned at Not on file Legal Sex Male 11:11 PM 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 But m[facility]p courses are aconcern. Thank him for keeping us appraised. FITS ADMINISTRATOR * Telephone Encounter - Jefferson Granado MA - 06/13/2018 1:43 PM CST Pt would like you to know that he is on Prednisone 40mg for five days only due to a throat infection FITS ADMINISTRATOR documented in this encounter Plan of Treatment Not on file documented as of this encounter Visit Diagnoses Not on filedocumented in this encounter Care Teams Management Scientist Relationship Specialty Start Date End Date Trenton Bess MD PCP - General 04/30/17 07/24/18 documented as of this encounter
--- OUTSIDE RECORDS SUMMARY | 2024-07-09 09:59 | XMS_ITS | Encounter Summary ---
Author Organization [facility] Address [address] [place] [address] Care Team Providers Care Toll Lineman Name Role Phone Trenton Bess MD Primary Care Provider [phone] Encounter Details Date Type Department Care Team (Late st Contact Info) Description 07/29/2018 4:40 PM CLAIM MANAGER Lab [facility] Advanced Medicine [facility] Advanced Medicine ([facility]) [address] [place] [phone] Eliana Quevedo MD [address] [facility] [address] [place], [place] [phone] Crohn's disease of small and large intestines [...] on file Legal Sex Male 11:11 PM CLAIM MANAGER Gender Identity Not on file Sexual Orientation Not on file documented as of this encounter Discharge Disposition Disposition Code Departure Means Destination Discharge to home or self care documented in this encounter Plan of Treatment Not on file documented as of this encounter Procedures Procedure Name Priority Date/Time Associated Diagnosis Comments T-SPOT.TB Routine 07/29/2018 4:43 PM CLAIM MANAGER Crohn's disease of small and large intestines with complication (CMS/HCC) High risk medications (not anticoagulants) long-term use DIFFERENTIAL AUTO Routine 07/29/2018 4:4 3 PM CLAIM MANAGER Crohn's disease of small and large intestines with complication (CMS/HCC) High risk medications (not anticoagulants) long-term use CBC WITH AUTO DIFFERENTIAL Routine 07/29/2018 4:43 PM CLAIM MANAGER Crohn's disease of small and large intestines with complication (CMS/HCC) High risk medications (not anticoagulants) long-term use HEPATIC FUNCTION PANEL Routine 07/29/2018 4:43 PM CLAIM MANAGER Crohn's disease of small and large intestines with complication (CMS/HCC) High risk medications (not anticoagulants) long-term use documented in this encounter Results * Differential, auto (07/29/2018 4:43 PM CLAIM MANAGER) Neutrophil abs 4.8 1.7 - 6.5 K[facility]cumm [facility] Imm gran abs 0.0 0.0 - 0.1 K/cumm [facility] Lymphocyte abs 2.9 0.8 - 3.3 K/cumm [facility] Monocyte abs 0.5 0.2 - 0.8 K/cumm [facility] Eosinophil abs 0.0 0.0 - 0.5 K/cumm [facility] Basophil abs 0.0 0.0 - 0.1 K/cumm [facility] Neutrophil pct 57.9 % [facility] Comment: Interpretive Data Percent cell count reference ranges are not reported, since discordance with absolute values may lead to misinterpretation of CBC data. Current Interpretive Data was last revised on 2017. Imm gran pct 0.4 % [facility] Comment: Interpretive Data Percent cell count reference ranges are not reported, since discordance with absolute values may lead to misinterpretation of CBC data. Current Interpretive Data was last revised on 2017. Lymphocyte pct 34.7 % [facility] Comment: Interpretive Data Percent cell count reference ranges are not reported, since discordance with absolute values may lead to misinterpretation of CBC data. Current Interpretive Data was last revised on 2017. Monocyte pct 6.0 % [facility] Comment: Interpretive Data Percent cell count reference ranges are not reported, since discordance with absolute values may lead to misinterpretation of CBC data. Current Interpretive Data was last revised on 2017. Eosinophil pct 0.6 % [facility] Comment: Interpretive Data Percent cell count reference ranges are not reported, since discordance with absolute values may lead to misinterpretation of CBC data. Current Interpretive Data was last revised on 2017. Basophil pct 0.4 % [facility] Comment: Interpretive Data Percent cell count reference ranges are not reported, since discordance with absolute values may lead to misinterpretation of CBC data. Current Interpretive Data was last revised on 2017. Blood specimen (specimen) 07/29/2018 4:43 PM CLAIM MANAGER 07/29/2018 5:07 PM CLAIM MANAGER Narrative [facility] - 07/29/2018 5:22 PM CLAIM MANAGER Eliana Quevedo MD LAB BLOOD ORDERABLE S Final Result [facility] Department [place] [address] * CBC with auto differential (07/29/2018 4:43 PM CLAIM MANAGER) WBC 8.3 3.8 - 9.9 K/cumm [facility] Hgb 13.8 13.0 - 17.5 g/dL [facility] Hct 41.3 38.9 - 50.3 % [facility] Plt 252 150 - 400 K/cumm [facility] MPV 11.1 9.1 - 12.3 fL [facility] RBC 4.64 4.30 - 5.80 M/cumm [facility] MCV 89.0 81.3 - 96.4 fL [facility] MCH 29.7 27.1 - 33.3 pg [facility] MCHC 33.4 32.3 - 35.7 g/dL [facility] RDW CV 12.8 11.1 - 14.9 % [facility] RDW SD 42.0 35.7 - 48.1 fL [facility] NRBC abs 0.00 0.00 - 0.01 K/cumm [facility] Blood specimen (specimen) 07/29/2018 4:43 PM CLAIM MANAGER 07/29/2018 5:07 PM CLAIM MANAGER Narrative [facility] - 07/29/2018 5:22 PM CLAIM MANAGER Eliana Quevedo MD LAB BLOOD ORDERABLE S Final Result Performing Organization Address City/[facility]/ZIP Co de Phone Number [facility] Department [place] [address] * Hepatic function panel (07/29/2018 4:43 PM CLAIM MANAGER) [facility] Bilirubin, total 0.5 0.1 - 1.2 mg/dL [facility] Bilirubin, direct <0.2 0.1 - 0.3 mg/dL [facility] Protein, pl 8.4 6.5 - 8.5 g/dL [facility] Albumin 4.9 3.5 - 5.0 g/dL [facility] Alk phos 89 40 - 130 Units/L [facility] ALT 32 7 - 55 Units/L [facility] AST 24 10 - 50 Units/L [facility] Blood specimen (specimen) 07/29/2018 4:43 PM CLAIM MANAGER 07/29/2018 5:06 PM CLAIM MANAGER Narrative [facility] - 07/29/2018 5:41 PM CLAIM MANAGER Eliana Quevedo MD LAB BLOOD ORDERABLE S Final Result Performing Organization Address City/[facility]/ZIP Co de Phone Number [facility] [place] [address] * TB test, T-SPOT (07/29/2018 4:43 PM CLAIM MANAGER) [facility] IFN-Gamma Release Assay TB Negative [facility] Comment: See scanned result in Medical Record. Interpretive Data Testing performed by [email or web address], [id number] [address] Current Interpretive Data was last revised 2014 Blood specimen (specimen) 07/29/2018 4:43 PM CLAIM MANAGER 07/29/2018 5:14 PM CLAIM MANAGER Narrative [facility] - 07/31/2018 7:41 PM CLAIM MANAGER Eliana Quevedo MD LAB MICROBIOLOGY - GENERAL ORDERABLES Final Result [facility] Department [place] [address] documented in this encounter Visit Diagnoses Diagnosis Crohn's disease of small and large intestines with complication (HCC) High risk medications (not anticoagulants) long-term use Encounter for long-term (current) use of other medications documented in this encounter Care Teams Toll Lineman Relationship Specialty Start Date End Date Trenton Bess MD PCP - General 07/29/18 01/22/19 documented as of this encounter
--- OUTSIDE RECORDS SUMMARY | 2024-07-09 09:59 | XMS_ITS | Encounter Summary ---
Author Organization [facility] Address [address] [place] [address] Phone Care Team Providers Care Bid Writer Name Role Phone Trenton Bess MD Primary Care Provider [phone] Lanre Parekh DO Primary Care Provide r Encounter Details Date Type Department Care Team (Late st Contact Info) Description 07/23/2018 Orders Only 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
--- OUTSIDE RECORDS SUMMARY | 2024-07-09 09:59 | XMS_ITS | Encounter Summary ---
Author Organization [facility] Address [address] [place] [address] Phone Care Team Providers Care Maintenance Clerk Name Role Phone Trenton Bess MD Primary Care Provider Encounter Details Date Type Department Care Team (Late st Contact Info) Description 06/08/2018 Documentation [facility] Gastroenterology [address] [facility] 8th [place] [address] [place] [address] Dana Wisdom MD [address] [place] [address] Social History Tobacco Use Types Packs/Day Years Used Date Smoking Tobacco: Never Smokeless Tobacco: Never Alcohol Use Standard Drinks/Week Comments No 0 (1 standard drink = 0.6 oz pur e alcohol) Sex and Gender Information Value Date Recorded Sex Assigned at Not on file Legal Sex Male 11:11 PM BARTENDERS Gender Identity Not on file Sexual Orientation [...] Dr. Quevedo' office to make an appointment. ENDERS documented in this encounter Plan of Treatment Not on file documented as of this encounter Visit Diagnoses Not on filedocumented in this encounter Care Teams Maintenance Clerk Relationship Specialty Start Date End Date Trenton Bess MD PCP - General 04/30/17 07/24/18 documented as of this encounter
--- OUTSIDE RECORDS SUMMARY | 2024-07-09 09:59 | XMS_ITS | Encounter Summary ---
Author Organization [facility] Address [address] [place] [address] Phone Care Team Providers Care Dianetic Counselor Name Role Phone Trenton Bess MD Primary Care Provider [phone] Encounter Details Date Type Department Care Team (Late st Contact Info) Description 05/28/2018 Orders Only [facility] Gastroenterology [facility] 8th [place] [address] [place] [phone] Padma Mendoza RN Social History Tobacco Use Types Packs/Day Years Used Date Smoking Tobacco: Never Smokeless Tobacco: Never Alcohol Use Standard Drinks/Week Comments No 0 (1 standard drink = 0.6 oz pur e alcohol) Sex and Gender Information Value Date Recorded Sex Assigned at Not on file Legal Sex Male 11:11 PM 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
--- OUTSIDE RECORDS SUMMARY | 2024-07-09 09:59 | XMS_ITS | Encounter Summary ---
Author Organization [facility] [place] Address [address] [place] [address] Phone Care Team Providers Care Call Out Clerk Name Role Phone Trenton Bess MD Primary Care Provider [phone] Encounter Details Date Type Department Care Team (Late Contact Info) Description 08/07/2018 Telephone [facility] Gastroenterology [facility] 8th [place] [address] [place] [address] Eliana Quevedo MD [address] [place] [address] Social History Tobacco Use Types Packs/Day Years Used Date Smoking Tobacco: Never Smokeless Tobacco: Never Alcohol Use Standard Drinks/Week Comments No 0 (1 standard drink = 0.6 oz pur e alcohol) Sex and Gender Information Value Date Recorded Sex Assigned at Not on file Legal Sex Male 11:11 PM CONTACT WORKER Gender Identity Not on file Sexual Orientation Not on file documented as of this encounter Miscellaneous Notes * Telephone Encounter - Eliana Quevedo MD - 08/08/2018 3:01 PM CONTACT WORKER Spoke to the patient. 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 He will stop the MTX, start 6MP 100mg. He was previously on AZA for 2-3 years but does not rememberthe dose. Check labs like any other new start. Check metabolites in 6 weeks. Will plan for colonoscopy in late summer/Fall. ACT WORKER * Telephone Encounter - Mona Esqueda MA - 08/07/2018 2:04 PM CST Pt returned your call. Confirmed pt will be available the rest of the day at his home number. ACT WORKER documented in this encounter Plan of Treatment Not on file documented as of this encounter Visit Diagnoses Not on filedocumented in this encounter Care Teams Call Out Clerk Relationship Specialty Start Date End Date Trenton Bess MD PCP - General 07/29/18 01/22/19 documented as of this encounter
--- OUTSIDE RECORDS SUMMARY | 2024-07-09 09:59 | XMS_ITS | Encounter Summary ---
Author Organization [facility] Address [address] [place] [address] Phone Care Team Providers Care Pharmacy Services Representative Name Role Phone Lanre Parekh Primary Care Provide r Trenton Bess MD Primary Care Provider [phone] Encounter Details Date Type Department Care Team (Late st Contact Info) Description 07/25/2018 8:45 AM ORTHOTIST PROSTHETIST Office Visit [facility] Gastroenterology [address] [facility] 8th [place] [address] [place] [address] Eliana Quevedo MD [address] [place] [address] Crohn's disease of small and large intestines [...] on file Legal Sex Male 11:11 PM ORTHOTIST PROSTHETIST Gender Identity Not on file Sexual Orientation Not on file documented as of this encounter Last Filed Vital Signs Vital Sign Reading Time Taken Comments Blood Pressure 148/90 07/25/2018 8:29 AM ORTHOTIST PROSTHETIST Pulse 75 07/25/2018 8:29 AM ORTHOTIST PROSTHETIST Temperature 37.1 ??C (98.7 ??F) 07/25/2018 8:29 AM CS T Respiratory Rate - - Oxygen Saturation - - Inhaled Oxygen Concentration - - Weight 81.2 kg (179 lb) 07/25/2018 8:29 AM ORTHOTIST PROSTHETIST Height 170.2 cm (5' 7 ) 07/25/2018 8:29 AM ORTHOTIST PROSTHETIST Body Mass Index 28.04 07/25/2018 8:29 AM ORTHOTIST PROSTHETIST documented in this encounter Patient Instructions * Patient Instructions* Padma Mendoza RN - 07/25/2018 8:45 AM ORTHOTIST PROSTHETIST Abs today CBC LFT's And TB Spot order for [facility] Send patient to Dr. Glass ENT clinic at [facility] 10:15 am [address] follow up in office in 6 months colonoscopy as scheduled OTIST PROSTHETIST OTIST PROSTHETIST documented in this encounter Progress Notes * [...] 07/29/2018 10:32 AM Eliana Quevedo MD, MPH Transfer Station Operator, Medicine Division of Gastroenterology RR/AG/TD OTIST PROSTHETIST documented in this encounter Miscellaneous Notes * Addendum Note - Sulema Wall - 07/25/2018 8:45 AM CSTAddended by: SULEMA WALL on: 07/29/2018 04:37 PM Modules accepted: Orders OTIST PROSTHETIST * Addendum Note - Sulema Wall - 07/25/2018 8:45 AM CSTAddended by: SULEMA WALL on: 07/29/2018 04:38 PM Modules accepted: Orders OTIST PROSTHETIST * Addendum Note - Sulema Wall - 07/25/2018 8:45 AM CSTAddended by: SULEMA WALL on: 07/29/2018 04:38 PM Modules accepted: Orders OTIST PROSTHETIST documented in this encounter Plan of Treatment Not on file documented as of this encounter Results * TB test, T-SPOT (07/29/2018 4:43 PM ORTHOTIST PROSTHETIST) [facility] IFN-Gamma Release Assay TB Negative [facility] Comment: See scanned result in Medical Record. Interpretive Data Testing performed by [employer], [address] [place] [address] Current Interpretive Data was last revised 2014 Blood specimen (specimen) 07/29/2018 4:43 PM ORTHOTIST PROSTHETIST 07/29/2018 5:14 PM ORTHOTIST PROSTHETIST Narrative [facility] - 07/31/2018 7:41 PM ORTHOTIST PROSTHETIST Eliana Quevedo MD LAB MICROBIOLOGY - GENERAL ORDERABLES Final Result Performing Organization Address City/[facility]/ZIP Co de Phone Number [facility] Department [place] [address] * Hepatic function panel (07/29/2018 4:43 PM ORTHOTIST PROSTHETIST) [facility] Bilirubin, total 0.5 0.1 - 1.2 mg/dL [facility] Bilirubin, direct <0.2 0.1 - 0.3 mg/dL [facility] Protein, pl 8.4 6.5 - 8.5 g/dL [facility] Albumin 4.9 3.5 - 5.0 g/dL [facility] Alk phos 89 40 - 130 Units/L [facility] ALT 32 7 - 55 Units/L [facility] AST 24 10 - 50 Units/L [facility] Blood specimen (specimen) 07/29/2018 4:43 PM ORTHOTIST PROSTHETIST 07/29/2018 5:06 PM ORTHOTIST PROSTHETIST Narrative [facility] - 07/29/2018 5:41 PM ORTHOTIST PROSTHETIST Eliana Quevedo MD LAB BLOOD ORDERABLE S Final Result Performing Organization Address [facility] Co de Phone Number [facility] Department [place] [address] * CBC with auto differential (07/29/2018 4:43 PM ORTHOTIST PROSTHETIST) [facility] WBC 8.3 3.8 - 9.9 K/cumm [facility] Hgb 13.8 13.0 - 17.5 g/dL [facility] Hct 41.3 38.9 - 50.3 % [facility] Plt 252 150 - 400 K/cumm [facility] MPV 11.1 9.1 - 12.3 fL [facility] RBC 4.64 4.30 - 5.80 M/cumm [facility] MCV 89.0 81.3 - 96.4 fL [facility] MCH 29.7 27.1 - 33.3 pg [facility] MCHC 33.4 32.3 - 35.7 g/dL [facility] RDW CV 12.8 11.1 - 14.9 % [facility] RDW SD 42.0 35.7 - 48.1 fL [facility] NRBC abs 0.00 0.00 - 0.01 K/cumm [facility] Blood specimen (specimen) 07/29/2018 4:43 PM ORTHOTIST PROSTHETIST 07/29/2018 5:07 PM ORTHOTIST PROSTHETIST Narrative [facility] - 07/29/2018 5:22 PM ORTHOTIST PROSTHETIST us Eliana Quevedo MD LAB BLOOD ORDERABLE S Final Result [facility] Department [place] [address] documented in this encounter Visit Diagnoses Diagnosis [...] 07/25/2018 added in this encounter Care Teams Pharmacy Services Representative Relationship Specialty Start Date End Date Lanre Parekh DO [address] [place] [id number] PCP - General Family Medicine 07/25/18 07/28/18 Trenton Bess MD [address] [place] [address] PCP - General 07/29/18 01/22/19 documented as of this encounter
--- OUTSIDE RECORDS SUMMARY | 2024-07-09 09:59 | XMS_ITS | Encounter Summary ---
Author Organization [facility] Address [address] [place] [address] Care Team Providers Care Operations Support Representative Name Role Phone Trenton Bess MD Primary Care Provider [phone] Encounter Details Date Type Department Care Team (Late st Contact Info) Description 08/02/2018 8:04 AM TUCKPOINTER CLEANER CAULKER Anesthesia Event [facility] [address] [place] [address] Chad Hoyos MD [address] [place] [address] Anesthesia Record Procedure Summary Procedure Name Responsible [...] by Malou Coulter RN 01/23/22 0000 by Yeiym Vincent RN Peripheral IV Placement Date: 08/02/18; [...] on file Legal Sex Male 11:11 PM TUCKPOINTER CLEANER CAULKER Gender Identity Not on file Sexual Orientation Not on file documented as of this encounter OR Notes * Anesthesia Postprocedure Evaluation - Chad Hoyos MD - 08/02/2018 9:18 AM CST Patient: Nic Teran Procedure Summary Date: 08/02/18 Room / Location: [facility] Anesthesia Start: 803 Anesthesia Stop: 837 [...] acceptable Pt is: normothermic Nausea/Vomiting status: none POINTER CLEANER CAULKER * Anesthesia Preprocedure Evaluation - Chad Hoyos [...] MEDICATIONS : CANNABIDIOL, CBD, EXTRACT ORAL omega 0-ftb-csn-fish oil 300-1,000 mg capsule adalimumab 40 mg/0.4 [...] Medication protocol when under care of a RETAIL ASSOCIATE MANAGER BILINGUAL Planned anesthesia: General Informed Consent: Anesthesia plan and risks discussed with patient. Consent and Attending signature: I and/or my designee have discussed the anesthesia plan, benefits, possible alternatives, parental presence at time of induction (if indicated), and clinically relevant risks that may include dental injury, unintentional awareness, and/or other complications. The patient and/or parent/legal guardian understand, and agree to proceed. All questions answered. POINTER CLEANER CAULKER documented in this encounter Plan of Treatment [...] 0807, Anesthesia Intra-op Given 08/02/2018 8:07 AM TUCKPOINTER CLEANER CAULKER 100 mg propofol (DIPRIVAN) IV intravenous, As needed, Starting on Sun08/02/18 at 0807, Anesthesia Intra-op Given 08/02/2018 8:23 AM TUCKPOINTER CLEANER CAULKER 100 mg Given 08/02/2018 8:16 AM TUCKPOINTER CLEANER CAULKER 100 mg Given 08/02/2018 8:11 AM TUCKPOINTER CLEANER CAULKER 100 mg documented in this encounter Care Teams Operations Support Representative Relationship Specialty Start Date End Date Trenton Bess MD PCP - General 07/29/18 01/22/19 documented as of this encounter
--- OUTSIDE RECORDS SUMMARY | 2024-07-09 10:00 | XMS_ITS | Encounter Summary ---
Author Organization [facility] Address [address] [place] [address] Phone Care Team Providers Care Cryptozoologist Name Role Phone Trenton Bess MD Primary Care Provider [phone] Encounter Details Date Type Department Care Team (Late st Contact Info) Description 03/13/2018 Telephone [facility] 8th [place] [address] [place] [address] Sarah Mora Social History Tobacco Use Types Packs/Day Years Used Date Smoking Tobacco: Never Smokeless Tobacco: Never Alcohol Use Standard Drinks/Week Comments No 0 (1 standard drink = 0.6 oz pur e alcohol) Sex and Gender Information Value Date Recorded Sex Assigned at Not on file Legal Sex Male 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 Parikh???s office in the [facility] on the 8th floor [address] documented in this encounter Plan of Treatment Not on file documented as of this encounter Visit Diagnoses Not on filedocumented in this encounter Care Teams Cryptozoologist Relationship Specialty Start Date End Date Trenton Bess MD PCP - General 04/30/17 07/24/18 documented as of this encounter
--- OUTSIDE RECORDS SUMMARY | 2024-07-09 10:00 | XMS_ITS | Encounter Summary ---
Author Organization [facility] Address [address] [place] [address] Phone Care Team Providers Care Ampoule Examiner Name Role Phone Trenton Bess MD Primary Care Provider [phone] Encounter Details Date Type Department Care Team (Late st Contact Info) Description 04/16/2018 Orders Only [facility] Gastroenterology [facility] [address]th [place] [address] [place] [address] Padma Mendoza RN Social History Tobacco Use Types Packs/Day Years Used Date Smoking Tobacco: Never Smokeless Tobacco: Never Alcohol Use Standard Drinks/Week Comments No 0 (1 standard drink = 0.6 oz pur e alcohol) Sex and Gender Information Value Date Recorded Sex Assigned at Not on file Legal Sex Male 11:11 PM 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
--- OUTSIDE RECORDS SUMMARY | 2024-07-09 10:00 | XMS_ITS | Encounter Summary ---
Author Organization [facility] Healthcare Address [address] [place] [address] Care Team Providers Care Client Solutions Manager Name Role Phone Trenton Bess MD Primary Care Provider [phone] Encounter Details Date Type Department Care Team (Late st Contact Info) Description 02/07/2018 12:15 PM CDT Lab [facility] ([facility]) [address] [place] [phone] Antonio Portillo MD [address] [facility] [phone] [address] [place] [address] Right lower quadrant abdominal pain Discharge Disposition: Discharge to home or self care Social History Tobacco Use Types Packs/Day Years Used Date Smoking Tobacco: Never Smokeless Tobacco: Never Alcohol Use Standard Drinks/Week Comments No 0 (1 standard drink = 0.6 oz pur e alcohol) Sex and Gender Information Value Date Recorded Sex Assigned at Not on file Legal Sex Male 11:11 PM FOOD SELECTOR Gender Identity Not on file Sexual Orientation [...] WBC, ur 0-5 0 - 5 /HPF [facility] RBC, ur 0-5 0 - 5 /HPF [facility] Mucous, ur Present(A) [facility] Urine 02/07/2018 1:16 PM CDT 02/07/2018 1:50 PM CDT Narrative [facility] - 02/07/2018 2:16 PM CDT us Antonio Portillo MD LAB URINE ORDERABLES Final Result [facility] [place] [address] * (ABNORMAL) Urinalysis, macroscopic (02/07/2018 1:16 PM CDT) Color, ur Reyna Yellow [facility] Clarity, ur Cloudy(A) Clear [facility] Specific gravity, ur 1.028(H) 1.010 - 1.025 [facility] pH, urine 6.0 [facility] Protein, ur ql 1+(A) Negative [facility] Glucose, ur ql Negative Negative [facility] Ketones, ur Negative Negative [facility] Bilirubin, ur Negative Negative [facility] Blood, ur Negative Negative [facility] Comment:Ascorbic acid identi fied in urine; possible false negative blood result. A microscopic exam will be added to identify RBCs. Urobilinogen, ur <2.0 <2.0 mg/dL [facility] Nitrite, ur Negative Negative [facility] Leukocyte esterase, ur Negative Negative [facility] Urine 02/07/2018 1:16 PM CDT 02/07/2018 1:50 PM CDT Narrative [facility] - 02/07/2018 2:00 PM CDT ?? Urine pH is affected by diet, medications, systemic acid-base disturbances, and renal tubular function. ??pH may affect urinary stone formation. ??For example, urine pH below 6.0 may help reduce the tendency for calcium phosphate stones and pH greater than 6.0 may reduce the tendency for uric acid stone formation. Source: [place] [facility]. Last revised 07-12-2017 us Antonio Portillo MD LAB MICROBIOLOGY - G ENERAL ORDERABLES Final Result [facility] [place] [address] * Differential, auto (02/07/2018 12:09 PM CDT) Neutrophil abs 3.4 1.7 - 6.5 K/cumm [facility] Imm gran abs 0.0 0.0 - 0.1 K/cumm [facility] Lymphocyte abs 2.8 0.8 - 3.3 K/cumm [facility] Monocyte abs 0.4 0.2 - 0.8 K/cumm [facility] Eosinophil abs 0.1 0.0 - 0.5 K/cumm [facility] Basophil abs 0.1 0.0 - 0.1 K/cumm [facility] Neutrophil pct 50.4 % [facility] Comment: Interpretive Data Percent cell count reference ranges are not reported, since discordance with absolute values may lead to misinterpretation of CBC data. Current Interpretive Data was last revised on 2017. Imm gran pct 0.3 % [facility] Comment: Interpretive Data Percent cell count reference ranges are not reported, since discordance with absolute values may lead to misinterpretation of CBC data. Current Interpretive Data was last revised on 2017. Lymphocyte pct 41.2 % [facility] Comment: Interpretive Data Percent cell count reference ranges are not reported, since discordance with absolute values may lead to misinterpretation of CBC data. Current Interpretive Data was last revised on 2017. Monocyte pct 6.1 % [facility] Comment: Interpretive Data Percent cell count reference ranges are not reported, since discordance with absolute values may lead to misinterpretation of CBC data. Current Interpretive Data was last revised on 2017. Eosinophil pct 1.0 % [facility] Comment: Interpretive Data Percent cell count reference ranges are not reported, since discordance with absolute values may lead to misinterpretation of CBC data. Current Interpretive Data was last revised on 2017. Basophil pct 1.0 % [facility] Comment: Interpretive Data Percent cell count reference ranges are not reported, since discordance with absolute values may lead to misinterpretation of CBC data. Current Interpretive Data was last revised on 2017. Blood specimen (specimen) 02/07/2018 12:09 PM CDT 02/07/2018 12:24 PM CDT Narrative [facility] - 02/07/2018 1:01 PM CDT us Antonio Portillo MD LAB BLOOD ORDERABLES Final Result [facility] [place] [address] * (ABNORMAL) CBC with auto differential (02/07/2018 12:09 PM CDT) WBC 6.7 3.8 - 9.9 K/cumm [facility] Hgb 11.4(L) 13.0 - 17.5 g/dL [facility] Hct 35.4(L) 38.9 - 50.3 % [facility] Plt 302 150 - 400 K/cumm [facility] MPV 9.4 9.1 - 12.3 fL [facility] RBC 3.88(L) 4.30 - 5.80 M/cumm [facility] MCV 91.2 81.3 - 96.4 fL [facility] MCH 29.4 27.1 - 33.3 pg [facility] MCHC 32.2(L) 32.3 - 35.7 g/dL [facility] RDW CV 12.5 11.1 - 14.9 % [facility] RDW SD 41.3 35.7 - 48.1 fL [facility] NRBC abs 0.00 0.00 - 0.01 K/cumm [facility] Blood specimen (specimen) 02/07/2018 12:09 PM CDT 02/07/2018 12:24 PM CDT Narrative [facility] - 02/07/2018 1:01 PM CDT Antonio Portillo MD LAB BLOOD ORDERABLES Final Result Performing Organization Address City/[facility] Co de Phone Number [facility] [place] [address] * Hepatic function panel (02/07/2018 12:09 PM CDT) Bilirubin, total 0.3 0.1 - 1.2 mg/dL [facility] Bilirubin, direct <0.2 0.1 - 0.3 mg/dL [facility] Protein, pl 8.3 6.5 - 8.5 g/dL [facility] Albumin 4.2 3.5 - 5.0 g/dL [facility] Alk phos 82 40 - 130 Units/L [facility] ALT 35 7 - 55 Units/L [facility] AST 22 10 - 50 Units/L [facility] Blood specimen (specimen) 02/07/2018 12:09 PM CDT 02/07/2018 12:24 PM CDT Narrative [facility] - 02/07/2018 1:40 PM CDT Antonio Portillo MD LAB BLOOD ORDERABLES Final Result Performing Organization Address City/[facility] Co de Phone Number [facility] [place] [employer] [place] [address] documented in this encounter Visit Diagnoses Diagnosis Right lower quadrant abdominal pain documented in this encounter Care Teams Client Solutions Manager Relationship Specialty Start Date End Date Trenton Bess MD PCP - General 04/30/17 07/24/18 documented as of this encounter
--- OUTSIDE RECORDS SUMMARY | 2024-07-09 10:00 | XMS_ITS | Encounter Summary ---
Author Organization [facility] Address [address] [place] [address] Phone Care Team Providers Care Outside Property Agent Name Role Phone Trenton Bess MD Primary Care Provider [phone] Reason for Referral * Diagnostic Imaging (Routine) - Closed Specialty Diagnoses / Procedures Referred By Contac t Referred To Contact Radiology Diagnoses Crohn's disease of both small and large intestine with complication (HCC) Procedures MRI Abdomen Enterography W WO Contrast Eliana Quevedo MD Phone: tel: fax: [address] [address] Referral ID Status Reason Start Date Expiration Date Visits Re quested Visits Authorized [id number] Closed 05/16/2018 06/14/2018 1 1 ION REPAIRER Encounter Details Date Type Department Care Team (Late st Contact Info) Description 05/06/2018 Orders Only [facility] G[facility]enterology [address] [facility] Advanced [facility] 8th [place] [address] [place] [address] Shanika Braun Crohn's disease of [...] on file Legal Sex Male 11:11 PM SECTION REPAIRER Gender Identity Not on file Sexual Orientation Not on file documented as of this encounter Progress Notes * Shanika Braun - 05/06/2018 12:17 PM CST Pt scheduled for MRE on 05/24/18 at 12:30 pm with an 11:00 am arrival at [facility], NPO 4 hours. LMOM informing the pt of the appointment. Asked pt to call back and confirm ION REPAIRER documented in this encounter Plan of Treatment Not on file documented as of this encounter Results * MRI Abdomen Enterography W WO Contrast (05/24/2018 12:46 PM SECTION REPAIRER) Anatomical Region Laterality Modality Body N/A Magnetic Resonan ce 05/24/2018 1:13 PM SECTION REPAIRER Impressions 05/24/2018 1:14 PM SECTION REPAIRER 1. ??Stable postsurgical changes of ileocolonic resection and primary anastomosis with improving perianastomotic inflammation. ??On today's examination, there is 1.5 cm of distal neoterminal ileum demonstrating mild active inflammation. Otherwise, no fistulization, stenosis or fluid collections are seen. Dictated by: Nicholas Lucio M.D. Electronically signed by: Cristy Curran M.D. Narrative 05/24/2018 1:14 PM SECTION REPAIRER EXAMINATION: MAGNETIC RESONANCE IMAGING OF THE ABDOMEN [...] (HCC) documented in this encounter Care Teams Outside Property Agent Relationship Specialty Start Date End Date Trenton Bess MD PCP - General 04/30/17 07/24/18 documented as of this encounter
--- OUTSIDE RECORDS SUMMARY | 2024-07-09 10:00 | XMS_ITS | Encounter Summary ---
Author Organization [facility] Address [address] [place] [address] Care Team Providers Care Computer Numerical Control Operator Name Role Phone Trenton Bess MD Primary Care Provider [phone] Reason for Referral * Diagnostic Imaging (Routine) - Closed Specialty Diagnoses / Procedures Referred By Renay rivero Referred To Contact Radiology Diagnoses Crohn's disease of both small and large intestine with complication (HCC) Procedures MRI Abdomen Enterography W WO Eliana Monreal MD Phone: tel: fax: [place] [phone] [phone] Referral ID Status Reason Start Date Expiration Date Visits Re quested Visits Authorized [id number] Closed 05/16/2018 06/14/2018 1 1 RVISOR PLATING AND POINT ASSEMBLY Reason for Visit * Diagnostic Imaging (Routine) - Closed Specialty Diagnoses / Procedures Referred By Renay rivero Referred To Contact Radiology Diagnoses Crohn's disease of both small and large intestine with complication (HCC) Procedures MRI Abdomen Enterography W WO Contrast Eliana Quevedo MD Phone: tel: fax: [place] [address] [phone] Referral ID Status Reason Start Date Expiration Date Visits Re quested Visits Authorized [id number] Closed 05/16/2018 06/14/2018 1 1 Encounter Details Date Type Department Care Team (Late st Contact Info) Description 05/24/2018 11:04 AM SUPERVISOR PLATING AND POINT ASSEMBLY - 05/24/2018 11:59 PM SUPERVISOR PLATING AND POINT ASSEMBLY Hospital Encounter [facility] Imaging [address] [address] Eliana Quevedo MD [address] [place] [address] Crohn's disease of both small and large [...] file Legal Sex Male 11:11 PM SUPERVISOR PLATING AND POINT ASSEMBLY Gender Identity Not on file Sexual [...] before surgery. 6 tablet 12/21/2017 8 omega 8-tmc-vjg-fish oil 300-1,000 mg capsule 1 capsule every [...] Read Routine (OP Routine) 05/24/2018 12:46 PM SUPERVISOR PLATING AND POINT ASSEMBLY Crohn's disease of both small and large intestine with complication (CMS/HCC) POC ISTAT Routine 05/24/2018 11:55 AM SUPERVISOR PLATING AND POINT ASSEMBLY documented in this encounter Results * MRI Abdomen Enterography W WO Contrast (05/24/2018 12:46 PM SUPERVISOR PLATING AND POINT ASSEMBLY) Anatomical Region Laterality Modality Body N/A Magnetic Resonan ce 05/24/2018 1:13 PM SUPERVISOR PLATING AND POINT ASSEMBLY Impressions 05/24/2018 1:14 PM SUPERVISOR PLATING AND POINT ASSEMBLY 1. ??Stable postsurgical changes of ileocolonic resection and primary anastomosis with improving perianastomotic inflammation. ??On today's examination, there is 1.5 cm of distal neoterminal ileum demonstrating mild active inflammation. Otherwise, no fistulization, stenosis or fluid collections are seen. Dictated by: Nicholas Lucio M.D. Electronically signed by: Cristy Curran M.D. Narrative 05/24/2018 1:14 PM SUPERVISOR PLATING AND POINT ASSEMBLY EXAMINATION: MAGNETIC RESONANCE IMAGING OF THE ABDOMEN [...] Result * POC ISTAT (05/24/2018 11:55 AM SUPERVISOR PLATING AND POINT ASSEMBLY) Creatinine, POC, bld 1.0 0.6 - 1.3 mg/dL [facility] Comment: Interpretive data Creatinine <1.5 mg/dL and stable receive IV contrast. Creatinine 1.5-1.9 mg/dL and stable use Visipaque IV contrast. Current interpretive data last reviewed 2015. POC Device Number [id number] RUBINAGEORGIANA ZAVALAWCH POC Performer [id number] [facility] Z[facility]ALAW[facility] Blood specimen (specimen) 05/24/2018 11:55 AM SUPERVISOR PLATING AND POINT ASSEMBLY 05/24/2018 11:55 AM SUPERVISOR PLATING AND POINT ASSEMBLY Narrative [facility] VILL[facility]REAL[facility] - 05/24/2018 12:07 PM SUPERVISOR PLATING AND POINT ASSEMBLY us Eliana Quevedo MD LAB BLOOD ORDERABLE S Final Result [facility] ZAVALAWCH [id number] [facility]. Department [place] [address] documented in this encounter Visit Diagnoses Diagnosis [...] Imaging Protocol Orders Given 05/24/2018 12:45 PM SUPERVISOR PLATING AND POINT ASSEMBLY 16 mL glucagon injection 1 mg 1 mg, intravenous, Once in imaging, low blood sugar, Starting on Sun05/24/18 at 1154, For 1 dose, Imaging Protocol Orders Given 05/24/2018 12:01 PM SUPERVISOR PLATING AND POINT ASSEMBLY 1 mg documented in this encounter Orders Medications Ordered That Nilo ht Not Have Been Administered Count Last Ordered Date First Ordered Date sodium chloride 0.9% flush 50 mL 1 05/24/20 18 documented in this encounter Care Teams Computer Numerical Control Operator Relationship Specialty Start Date End Date Trenton Bess MD PCP - General 04/30/17 07/24/18 documented as of this encounter
--- OUTSIDE RECORDS SUMMARY | 2024-07-09 10:00 | XMS_ITS | Encounter Summary ---
Author Organization [facility] Address [address] [place] [address] Care Team Providers Care Inspector Balance Wheel Motion Name Role Phone Trenton Bess MD Primary Care Provider [phone] Encounter Details Date Type Department Care Team (Late st Contact Info) Description 04/23/2018 2:40 PM CDT Lab [facility] ([facility]) [address] [place] [phone] Crohn's disease of both small and large intestine with intestinal obstruction (CMS/HCC) Social History Tobacco Use Types Packs/Day Years Used Date Smoking Tobacco: Never Smokeless Tobacco: Never Alcohol Use Standard Drinks/Week Comments No 0 (1 standard drink = 0.6 oz pur e alcohol) Sex and Gender Information Value Date Recorded Sex Assigned at Not on file Legal Sex Male 11:11 PM COIL FINISHER Gender Identity Not on file Sexual Orientation [...] PM CDT) ADALX Quant 9.6 mcg/mL [facility] Comment: For clinical assessment of response to therapy, adalimumab should be measured at trough. When adalimumab trough concentrations are greater than 5.0 mcg/mL, clinically relevant fkplpruqiu-qg-rqqvgdslpj are unlikely and reflex testing will not be performed. REFERENCE VALUE Limit of Quantitation = 0.8 mcg/mL ADDITIONAL INFORMATION This test was developed and its performance characteristics determined by [facility] in a manner consistent with CLIA requirements. This test has not been cleared or approved by the U.S. Food and Drug Administration. Test Performed by: [address] [address] Blood specimen (specimen) 04/23/2018 2:53 PM CDT 04/23/2018 3:41 PM CDT Julio Cesar MILLIGAN - 04/25/2018 5:36 PM CDT Veronica Morse STORM WINDOW INSTALLER LAB BLOOD ORDJeremie VALLEJO Final Result [facility] L[facility] Department [place] [address] documented in this encounter Visit Diagnoses Diagnosis Crohn's disease of both small and large intestine with intestinal obstruction (HCC) documented in this encounter Care Teams Inspector Balance Wheel Motion Relationship Specialty Start Date End Date Trenton Bess MD PCP - General 04/30/17 07/24/18 documented as of this encounter
--- OUTSIDE RECORDS SUMMARY | 2024-07-09 10:00 | XMS_ITS | Encounter Summary ---
Author Organization [facility] Address [address] [place] [address] Care Team Providers Care Panelboard Tank Pumper Name Role Phone Trenton Bess MD Primary Care Provider Encounter Details Date Type Department Care Team (Late st Contact Info) Description 05/12/2018 Orders Only Radiology [address] [place] [address] Norberto Huang MD [address] [facility] [address] [place] [address] Social History Tobacco Use Types Packs/Day Years Used Date Smoking Tobacco: Never Smokeless Tobacco: Never Alcohol Use Standard Drinks/Week Comments No 0 (1 standard drink = 0.6 oz pur e alcohol) Sex and Gender Information Value Date Recorded Sex Assigned at Not on file Legal Sex Male 11:11 PM COACH OPERATOR Gender Identity Not on file Sexual Orientation Not on file documented as of this encounter Plan of Treatment Not on file documented as of this encounter Visit Diagnoses Not on filedocumented in this encounter Care Teams Panelboard Tank Pumper Relationship Specialty Start Date End Date Trenton Bess MD PCP - General 04/30/17 07/24/18 documented as of this encounter
--- OUTSIDE RECORDS SUMMARY | 2024-07-09 10:00 | XMS_ITS | Encounter Summary ---
Author Organization [facility] Address [address] [place] [address] Phone Care Team Providers Care Burning Plant Operator Name Role Phone Trenton Bess MD Primary Care Provider Reason for Referral * Diagnostic Imaging (Routine) - Closed Specialty Diagnoses / Procedures Referred By Contac t Referred To Contact Diagnoses Low bone mass Procedures Dexa Appendicular Bone Density Fernando Mckeon MD Phone: tel: fax: [facility] Loc[facility]) Referral ID Status Reason Start Date Expiration Date Visits Re quested Visits Authorized [id number] Closed 05/06/2018 07/01/2020 1 99 RA MAKER Reason for Visit * Endocrinology (Routine) - Closed Specialty Diagnoses / Procedures Referred By Contac t Referred To Contact Bone Health Diagnoses Age-related osteoporosis without current pathological fracture Procedures RETURN Trenton Bess MD Phone: tel: fax: Fernando Mckeon MD [address] [place] [address] Phone: tel: fax: Referral ID Status Reason Start Date Expiration Date Visits Re quested Visits Authorized [id number] Closed 05/06/2018 07/01/2018 99 99 Encounter Details Date Type Department Care Team (Late st Contact Info) Description 05/06/2018 3:30 PM CAMERA MAKER Office Visit [facility] [address] [facility] 5th [address] [place] [address] Fernando Mckeon MD [address] [facility] [address] [place] [address] Low bone mass (Primary Dx) Social History Tobacco Use Types Packs/Day Years Used Date Smoking Tobacco: Never Smokeless Tobacco: Never Alcohol Use Standard Drinks/Week Comments No 0 (1 standard drink = 0.6 oz pur e alcohol) Sex and Gender Information Value Date Recorded Sex Assigned at Not on file Legal Sex Male 11:11 PM CAMERA MAKER Gender Identity Not on file Sexual Orientation Not on file documented as of this encounter Last Filed Vital Signs Vital Sign Reading Time Taken Comments Blood Pressure 120/77 05/06/2018 3:22 PM CAMERA MAKER Pulse 73 05/06/2018 3:22 PM CAMERA MAKER Temperature 36.7 ??C (98 ??F) 05/06/2018 3:22 PM CAMERA MAKER Respiratory Rate - - Oxygen Saturation - - Inhaled Oxygen Concentration - - Weight 80.8 kg (178 lb 3.2 oz) 05/06/2018 3:22 P M CAMERA MAKER Height 170.2 cm (5' 7 ) 05/06/2018 3:22 PM CAMERA MAKER Body Mass Index 27.91 05/06/2018 3:22 PM CAMERA MAKER documented in this encounter Patient Instructions * Patient Instructions* Fernando Mckeon MD - 05/06/2018 3:30 PM CAMERA MAKER Goal 1000mg of calicum daily Continue D prescription monthly 50K Ergocalciferol Continue 1000 IU daily pending level today Increase your weight bearing activity. RA MAKER documented in this encounter Progress Notes * Fernando Mckeon MD - 05/06/2018 3:30 PM CST .IPDM RA MAKER * Fernando Mckeon MD - 05/06/2018 3:30 [...] Supervised by Dr. Karol Tran, a pediatric handle sewer. 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 He has 2 children, 18 months and [...] every morning., Disp: , Rfl: ??? omega 8-xwf-yyx-fish oil 300-1,000 mg capsule, 1 capsule every [...] [facility]. Please let me know if I can be of any more assistance. If you have any questions or concerns please do not hesitate to give me a call. RA MAKER documented in this encounter Plan of Treatment Not on file documented as of this encounter Results * Dexa Appendicular Bone Density (05/12/2019 2:29 PM CAMERA MAKER) Anatomical Region Laterality Modality Wrist N/A Radiographic Nancy ging Narrative 05/13/2019 12:23 PM CAMERA MAKER Patient Name: Nic Teran Date of : 1990 Date of scan: 05/12/2019 Bone mineral density was performed on a Pristones Discovery Densitometer. ?? Machine Cross-calibration and Precision [...] density scan were prepared by Francesca Cary (R)([facility]) who is accredited by the International Society of Clinical Densitometry. The overall patient assessment and scan interpretation were performed by Fernando Mckeon M.D. who is certified by the International Society of Clinical Densitometry. [id number] Fernando Mckeon MD IMG DXA PROCEDURES Edited Resul t - Final * Vitamin D 25 hydroxy (05/06/2018 4:58 PM CAMERA MAKER) Vitamin D 25-OH 30 30 - 80 ng/mL [facility] Blood specimen (specimen) 05/06/2018 4:58 PM CAMERA MAKER 05/06/2018 5:41 PM CAMERA MAKER Narrative [facility] - 05/06/2018 7:38 PM CAMERA MAKER us Fernando Mckeon MD LAB BLOOD ORDERABLES Final Resu lt [facility] [place] [address] documented in this encounter Visit Diagnoses Diagnosis Low bone mass- Primary Low bone mass Low bone mass documented in this encounter Discontinued Medications Medication Sig Discontinue Reason Start Date End Da te adalimumab (HUMIRA PEN) 40 mg/0.8 mL pen injector kitIndications:Crohn's Disease Inject 40 mg SQ every 7 days - PA approved thru #[id number] starting 02/23/18 thru 03/25/19 03/25/2018 05/06/2018 documented as of this encounter Historical Medications * This list may reflect changes made after this encounter. ADALIMUMAB SUBQ Inject 40 mg under the skin once every 2 weeks. 02/09/2014 07/30/2018 added in this encounter Care Teams Burning Plant Operator Relationship Specialty Start Date End Date Trenton Bess MD PCP - General 04/30/17 07/24/18 documented as of this encounter
--- OUTSIDE RECORDS SUMMARY | 2024-07-09 10:00 | XMS_ITS | Encounter Summary ---
Author Organization [facility] Address [address] [place] [address] Phone Care Team Providers Care In Flight Refueling Operator Name Role Phone Trenton Bess MD Primary Care Provider [phone] Encounter Details Date Type Department Care Team (Latest Contact Info) Description 03/15/2018 8:30 AM CDT Office Visit [facility] Gastroenterology [address] [facility] 8th [place] [address] [place] [address] Veronica Morse, TEXTILE BROKER [address] [place] [address] Crohn's disease of both small and large [...] on file Legal Sex Male 11:11 PM MARINE CONSULTANT Gender Identity Not on file Sexual [...] least 2 continuous years, flagyl, Asacol, Azathioprine ([id number]), Remicade ([id number], switched for insurance purposes), Humira (4100-0734, 6-month insurance interruption, re- initiation 10/2016, with [...] capsule by mouth every morning. ??? omega 8-wdz-bwv-fish oil 300-1,000 mg capsule 1 capsule every [...] are greater than 5.0 mcg/mL, clinically relevant ydsrkuvfmj-qs-pwyjmfvjej are unlikely and reflex testing will not be performed. REFERENCE VALUE Limit of Quantitation = 0.8 mcg/mL ADDITIONAL INFORMATION This test was developed and its performance characteristics determined by [facility] in a manner consistent with CLIA requirements. This test has not been cleared or approved by the U.S. Food and Drug Administration. Test Performed by: [address] [address] Blood specimen (specimen) 04/23/2018 2:53 PM CDT 04/23/2018 3:41 PM CDT Julio Cesar [facility] - 04/25/2018 5:36 PM CDT Veronica Morse TEXTILE BROKER LAB BLOOD ALICJA VALLEJO Final Result [facility] Department [place] [address] documented in this encounter Visit Diagnoses Diagnosis Crohn's disease of both small and large intestine with intestinal obstruction (HCC)- Primary Diarrhea due to malabsorption Crohn's disease of both small and large intestine with intestinal obstruction (HCC) documented in this encounter Care Teams In Flight Refueling Operator Relationship Specialty Start Date End Date Trenton Bess MD PCP - General 04/30/17 07/24/18 documented as of this encounter
--- OUTSIDE RECORDS SUMMARY | 2024-07-09 10:00 | XMS_ITS | Encounter Summary ---
Author Organization [facility] Address [address] [place] [address] Phone Care Team Providers Care Layup Worker Name Role Phone Trenton Bess MD Primary Care Provider Encounter Details Date Type Department Care Team (Late st Contact Info) Description 02/07/2018 10:45 AM CDT Office Visit [facility] Surgery [address] [facility] Advanced Medicine 8th [place] [address] [place] [address] Antonio Portillo MD [address] [facility] [phone] [address] [place] [address] Crohn's disease of small and large intestines with complication (CMS/HCC) (Primary Dx) Social History Tobacco Use Types Packs/Day Years Used Date Smoking Tobacco: Never Smokeless Tobacco: Never Alcohol Use Standard Drinks/Week Comments No 0 (1 standard drink = 0.6 oz pur e alcohol) Sex and Gender Information Value Date Recorded Sex Assigned at Not on file Legal Sex Male 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 If indicated, a gender-appropriate truck guard was present for the exam. Assessment & Plan: (K50.819) Crohn's disease of small and large intestines with complication (CMS/HCC) (primary encounter diagnosis) The patient is clinically improved since starting mesalamine and antibiotics, and his Humira dosingis returning back to his normal interval. He was advised to follow up with his product development consultant. He will contact my office if abdominal pain recurs or he develops worsening diarrhea. All questions answered. Antonio Portillo MD, FACS, FASCRS supervisor mapping Section of Colon & Rectal Surgery [facility] [phone] 02/07/2018 11:37 AM Dictated note was generated using voice-molded goods spot picker technology and some variance may result. documented in this encounter Plan of Treatment Not on file documented as of this encounter Visit Diagnoses Diagnosis Crohn's disease of small and large intestines with complication (HCC)- Primary documented in this encounter Care Teams Layup Worker Relationship Specialty Start Date End Date Trenton Bess MD PCP - General 04/30/17 07/24/18 documented as of this encounter
--- OUTSIDE RECORDS SUMMARY | 2024-07-09 10:00 | XMS_ITS | Encounter Summary ---
Author Organization [facility] Address [address] [place] [address] Phone Care Team Providers Care Balance Sheet Analyst Name Role Phone Trenton Bess MD Primary Care Provider [phone] Encounter Details Date Type Department Care Team (Late st Contact Info) Description 04/10/2018 Documentation [facility] Gastroenterology [facility] 8th [place] [address] [place] [address] Shanika Braun Social History Tobacco Use Types Packs/Day Years Used Date Smoking Tobacco: Never Smokeless Tobacco: Never Alcohol Use Standard Drinks/Week Comments No 0 (1 standard drink = 0.6 oz pur e alcohol) Sex and Gender Information Value Date Recorded Sex Assigned at Not on file Legal 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
--- OUTSIDE RECORDS SUMMARY | 2024-07-09 10:00 | XMS_ITS | Encounter Summary ---
Author Organization [facility] Address [address] [place] [address] Phone Care Team Providers Care Hammer Smith Name Role Phone Trenton Bess MD Primary Care Provider [phone] Encounter Details Date Type Department Care Team (Late st Contact Info) Description 02/18/2018 Telephone [facility] [address] [place] [address] 8th [place] [address] [place] [address] Shanika Braun Social History Tobacco Use Types Packs/Day Years Used Date Smoking Tobacco: Never Smokeless Tobacco: Never Alcohol Use Standard Drinks/Week Comments No 0 (1 standard drink = 0.6 oz pur e alcohol) Sex and Gender Information Value Date Recorded Sex Assigned at Not on file Legal Sex Male 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
--- OUTSIDE RECORDS SUMMARY | 2024-07-09 10:00 | XMS_ITS | Encounter Summary ---
Author Organization [facility] Address [address] [place] [address] Phone Care Team Providers Care Cardiac Tech Name Role Phone Trenton Bess MD Primary Care Provider [phone] Encounter Details Date Type Department Care Team (Late st Contact Info) Description 02/11/2018 8:00 AM CDT Office Visit [facility] Gastroenterology [address] [facility] Medical Office Building [address] [place] [address] Veronica Morse, LISSETTE [address] [place], [place] [id number] Diarrhea, unspecified type (Primary Dx) Social History Tobacco Use Types Packs/Day Years Used Date Smoking Tobacco: Never Smokeless Tobacco: Never Alcohol Use Standard Drinks/Week Comments No 0 (1 standard drink = 0.6 oz pur e alcohol) Sex and Gender Information Value Date Recorded Sex Assigned at Not on file Legal 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 ??? omega 0-hbk-ccm-fish oil 300-1,000 mg capsule 1 capsule every [...] E.coli. CRUZ CELESTE Comment:Testing performed by : [facility], [facility], [place]., [address] Report Final Report: No Salmonella, Shigella, Aeromonas, Plesiomonas, Yersinia, Campylobacter, or E.coli 0157:H7 isolated CRUZ CELESTE Comment:Testing performed by : [facility], [address] [place] [address]., [address] Stool 02/11/2018 9:47 AM CDT 02/11/2018 3:56 PM CDT Narrative CRUZ CELESTE - 02/15/2018 10:23 AM CDT This specimen is screened for the presence of Aeromonas, Campylobacter, E.coli-0157:H7, Plesiomonas, Salmonella, Shigella, Shiga Toxin producing E. coli, and Yersinia. Veronica Morse NP LAB MICROBIOLO GY - GENERAL ORDERABLES Final Result [facility] [address] [employer] [place], [place] [id number] * Clostridium difficile toxin Stool (02/11/2018 9:47 AM CDT) C Difficile Toxin A/B Negative Negative CRUZ VILLARREAL Comment:Testing performed by : [facility], [address] [place] [address]., [address] Stool 02/11/2018 9:47 AM CDT 02/11/2018 3:56 PM CDT Narrative CRUZ VILLARREAL - 02/11/2018 5:47 PM CDT Veronica Morse NP LAB MICROBIOLO GY - GENERAL ORDERABLES Final Result [facility] [address] [facility] [place] [address] documented in this encounter Visit Diagnoses Diagnosis Diarrhea, unspecified type- Primary Diarrhea, unspecified type documented in this encounter Care Teams Cardiac Tech Relationship Specialty Start Date End Date Trenton Bess MD PCP - General 04/30/17 07/24/18 documented as of this encounter
--- OUTSIDE RECORDS SUMMARY | 2024-07-09 10:00 | XMS_ITS | Encounter Summary ---
Author Organization [facility] Address [address] [place] [address] Phone Care Team Providers Care Selling Underwriter Name Role Phone Trenton Bess MD Primary Care Provider [phone] Encounter Details Date Type Department Care Team (Late st Contact Info) Description 03/01/2018 Telephone [facility] Gastroenterology [facility] 8th [place] [address] [place] [address] Eliana Quevedo MD [address] [place] [address] Social History Tobacco Use Types Packs/Day Years Used Date Smoking Tobacco: Never Smokeless Tobacco: Never Alcohol Use Standard Drinks/Week Comments No 0 (1 standard drink = 0.6 oz pur e alcohol) Sex and Gender Information Value Date Recorded Sex Assigned at Not on file Legal 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
--- OUTSIDE RECORDS SUMMARY | 2024-07-09 10:00 | XMS_ITS | Encounter Summary ---
Author Organization [facility] Address [address] [place] [address] Care Team Providers Care Soil Science Professor Name Role Phone Trenton Bess MD Primary Care Provider [phone] Encounter Details Date Type Department Care Team (Late st Contact Info) Description 04/23/2018 2:55 PM CDT Lab [facility] Advanced [facility] Advanced Medicine ([facility]) [address] [place] [phone] Social History Tobacco Use Types Packs/Day Years Used Date Smoking Tobacco: Never Smokeless Tobacco: Never Alcohol Use Standard Drinks/Week Comments No 0 (1 standard drink = 0.6 oz pur e alcohol) Sex and Gender Information Value Date Recorded Sex Assigned at Not on file Legal 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
--- OUTSIDE RECORDS SUMMARY | 2024-07-09 10:00 | XMS_ITS | Encounter Summary ---
Author Organization [facility] Address [address] [place] [address] Phone Care Team Providers Care Project Scheduler Name Role Phone Trenton Bess MD Primary Care Provider [phone] Encounter Details Date Type Department Care Team (Late st Contact Info) Description 02/11/2018 9:45 AM CDT Lab 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 CRUZ CELESTE Comment:Testing performed by : [facility], [address] [place] [address]., [address] Report Final Report: No Salmonella, Shigella, Aeromonas, Plesiomonas, Yersinia, Campylobacter, or E.coli 0157:H7 isolated CRUZ CELESTE Comment:Testing performed by : [facility], [address] [place] [address]., [id number] Stool 02/11/2018 9:47 AM CDT 02/11/2018 3:56 PM CDT Narrative CRUZ CELESTE - 02/15/2018 10:23 AM CDT This specimen is screened for the presence of Aeromonas, Campylobacter, E.coli-0157:H7, Plesiomonas, Salmonella, Shigella, Shiga Toxin producing E. coli, and Yersinia. Veronica Morse NP LAB MICROBIOLO GY - GENERAL ORDERABLES Final Result [facility] ZAVALAWCH [address] [facility] [place] [address] * Clostridium difficile toxin Stool (02/11/2018 9:47 AM CDT) C Difficile Toxin A/B Negative Negative CRUZ CELESTE Comment:Testing performed by : [facility], [address] [place] [address]., [id number] Stool 02/11/2018 9:47 AM CDT 02/11/2018 3:56 PM CDT Narrative CRUZ BJWCH - 02/11/2018 5:47 PM CDT us Veronica Morse VICE PRESIDENT OF MANUFACTURING LAB MICROBIOLO GY - GENERAL ORDERABLES Final Result [facility] BJW[facility] [address] [facility]. Department [place] [address] documented in this encounter Visit Diagnoses Diagnosis Diarrhea, unspecified type documented in this encounter Care Teams Project Scheduler Relationship Specialty Start Date End Date Trenton Bess MD PCP - General 04/30/17 07/24/18 documented as of this encounter
--- OUTSIDE RECORDS SUMMARY | 2024-07-09 10:00 | XMS_ITS | Encounter Summary ---
Author Organization [facility] Address [address] [place] [address] Phone Care Team Providers Care Remelt Operator Name Role Phone Trenton Bess MD Primary Care Provider [phone] Encounter Details Date Type Department Care Team (Late st Contact Info) Description 05/20/2018 Telephone [facility] Medical Office Building [address] [place] [address] Fernando Mckeon MD [address] [address] Social History Tobacco Use Types Packs/Day Years Used Date Smoking Tobacco: Never Smokeless Tobacco: Never Alcohol Use Standard Drinks/Week Comments No 0 (1 standard drink = 0.6 oz pur e alcohol) Sex and Gender Information Value Date Recorded Sex Assigned at Not on file Legal Sex Male 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 Fernando Mckeon MD P [facility] Bone Clinical Pool ?We will switch his monthly 50K ergocalciferol to every two weeks. Please send script thanks A script was sent electronically to his [facility] pharmacy. TE SENSING SCIENTIST documented in this encounter Plan of Treatment [...] documented as of this encounter Care Teams Remelt Operator Relationship Specialty Start Date End Date Trenton Bess MD PCP - General 04/30/17 07/24/18 documented as of this encounter
--- OUTSIDE RECORDS SUMMARY | 2024-07-09 10:00 | XMS_ITS | Encounter Summary ---
Author Organization [facility] Healthcare Address [address] [place] [address] Care Team Providers Care Beekeeper Name Role Phone Trenton Bess MD Primary Care Provider [phone] Encounter Details Date Type Department Care Team (Late st Contact Info) Description 04/23/2018 3:15 PM CDT Lab [facility] Advanced [facility] Advanced Medicine ([facility]) [address] [place] [phone] Social History Tobacco Use Types Packs/Day Years Used Date Smoking Tobacco: Never Smokeless Tobacco: Never Alcohol Use Standard Drinks/Week Comments No 0 (1 standard drink = 0.6 oz pur e alcohol) Sex and Gender Information Value Date Recorded Sex Assigned at Not on file Legal 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
--- OUTSIDE RECORDS SUMMARY | 2024-07-09 10:00 | XMS_ITS | Encounter Summary ---
Author Organization [facility] Address [address] [place] [address] Phone Care Team Providers Care Precision Instrument And Tool Maker Name Role Phone Trenton Bess MD Primary Care Provider Reason for Referral * Diagnostic Imaging (Routine) - Canceled Specialty Diagnoses / Procedures Referred By Contac t Referred To Contact Diagnoses Screening for osteoporosis Procedures Dexa Axial Skeleton Bone Density 1 or 2 Site Fernando Mckeon MD Phone: tel: fax: [facility] (All Locations) Referral ID Status Reason Start Date Expiration Date V isits Requested Visits Authorized [id number] Canceled 05/03/2018 11/12/2019 1 1 Reason for Visit * Reason Comments Osteopenia * Endocrinology (Routine) - Closed Specialty Diagnoses / Procedures Referred By Contac t Referred To Contact Bone Health Diagnoses Age-related osteoporosis without current pathological fracture Procedures RETURN Trenton Bess MD Phone: tel: fax: Fernando Mckeon MD [address] [address] Phone: tel: fax: Referral ID Status Reason Start Date Expiration Date Visits Re quested Visits Authorized [id number] Closed 05/06/2018 07/01/2018 99 [phone] Encounter Details Date Type Department Care Team (Latest Contact Info) Description 05/06/2018 3:10 PM SENIOR SYSTEMS ADMINISTRATOR Clinical Support [facility] [address] [facility] 5th [place] [address] [place] [address] Screening for osteoporosis (Primary Dx); Low bone mass Social History Tobacco Use Types Packs/Day Years Used Date Smoking Tobacco: Never Smokeless Tobacco: Never Alcohol Use Standard Drinks/Week Comments No 0 (1 standard drink = 0.6 oz pur e alcohol) Sex and Gender Information Value Date Recorded Sex Assigned at Not on file Legal Sex Male 11:11 PM SENIOR SYSTEMS ADMINISTRATOR Gender Identity Not on file Sexual Orientation Not on file documented as of this encounter Plan of Treatment Not on file documented as of this encounter Procedures Procedure Name Priority Date/Time Associated Diagnosis Comments DEXA AXIAL SKELETON BONE DENSITY 1 OR MORE SITES Schedule Routine, Read Routine (OP Routine) 05/06/2018 3:46 PM SENIOR SYSTEMS ADMINISTRATOR Screening for osteoporosis documented in this encounter Results * Dexa Axial Skeleton Bone Density 1 or 2 Site (05/06/2018 3:46 PM SENIOR SYSTEMS ADMINISTRATOR) Anatomical Region Laterality Modality Body N/A Radiographic Nancy ging Narrative 05/07/2018 11:21 AM SENIOR SYSTEMS ADMINISTRATOR Patient Name: Nic Teran Date of : 1990 Date of scan: 05/06/2018 Bone mineral density was performed on a HoloToopher Discovery Densitometer. ?? Machine Cross-calibration and Precision [...] by the International Society of Clinical Densitometry. [id number] Fernando Mckeon MD IMG DXA PROCEDURES Final Result documented in this encounter Visit Diagnoses Diagnosis Screening for osteoporosis- Primary Special screening for osteoporosis Low bone mass documented in this encounter Care Teams Precision Instrument And Tool Maker Relationship Specialty Start Date End Date Trenton Bess MD PCP - General 04/30/17 07/24/18 documented as of this encounter
--- OUTSIDE RECORDS SUMMARY | 2024-07-09 10:00 | XMS_ITS | Encounter Summary ---
Author Organization [facility] Address [address] [place] [address] Phone Care Team Providers Care Publication Distributor Name Role Phone Trenton Bess MD Primary Care Provider [phone] Encounter Details Date Type Department Care Team (Late st Contact Info) Description 03/25/2018 Orders Only [facility] Gastroenterology [facility] 8th [place] [address] [place] [phone] Shanika Braun Crohn's disease of both small [...] file Legal Sex Male 11:11 PM HEALTH PROMOTION COORDINATOR Gender Identity Not on file Sexual Orientation Not on file documented as of this encounter Ordered Prescriptions Prescription Sig Dispense Quantity Refills Last Filled Start Date End Date adalimumab (HUMIRA PEN) 40 mg/0.8 mL pen injector kitIndications:Didactic Program In Dietetics Director hn's Disease Inject 40 mg SQ every 7 days - PA approved thru ES #[id number] starting 02/23/18 thru 03/25/19 2 each 2 03/25/2018 8 adalimumab (HUMIRA PEN) 40 mg/0.8 mL pen injector kitIndications:Didactic Program In Dietetics Director hn's Disease Inject 40 mg SQ every [...] documented as of this encounter Care Teams Publication Distributor Relationship Specialty Start Date End Date Trenton Bess MD PCP - General 04/30/17 07/24/18 documented as of this encounter
--- OUTSIDE RECORDS SUMMARY | 2024-07-09 10:00 | XMS_ITS | Encounter Summary ---
Author Organization [facility] Address [address] [place] [address] Phone Care Team Providers Care Head Holder Name Role Phone Trenton Bess MD Primary Care Provider [phone] Encounter Details Date Type Department Care Team (Late st Contact Info) Description 05/01/2018 Documentation [facility] Gastroenterology [facility] 8th [place] [address] [place] [phone] Shanika Braun Social History Tobacco Use Types Packs/Day Years Used Date Smoking Tobacco: Never Smokeless Tobacco: Never Alcohol Use Standard Drinks/Week Comments No 0 (1 standard drink = 0.6 oz pur e alcohol) Sex and Gender Information Value Date Recorded Sex Assigned at Not on file Legal Sex Male 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
--- OUTSIDE RECORDS SUMMARY | 2024-07-09 10:00 | XMS_ITS | Encounter Summary ---
Author Organization [facility] Address [address] [place] [address] Phone Care Team Providers Care Catalogue Maker Name Role Phone Trenton Bess MD Primary Care Provider [phone] Encounter Details Date Type Department Care Team (Late st Contact Info) Description 02/06/2018 Telephone [facility] Surgery [facility] 8th [place] [address] [place] [address] Margie Linda RMA Social History Tobacco Use Types Packs/Day Years Used Date Smoking Tobacco: Never Smokeless Tobacco: Never Alcohol Use Standard Drinks/Week Comments No 0 (1 standard drink = 0.6 oz pur e alcohol) Sex and Gender Information Value Date Recorded Sex Assigned at Not on file Legal 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
--- OUTSIDE RECORDS SUMMARY | 2024-07-09 10:00 | XMS_ITS | Encounter Summary ---
Author Organization [facility] Address [address] [place] [address] Care Team Providers Care Medical Insurance Claims Specialist Name Role Phone Trenton Bess MD Primary Care Provider [phone] Reason for Referral * Diagnostic Imaging (Routine) - Closed Specialty Diagnoses / Procedures Referred By Contac t Referred To Contact Radiology Diagnoses Right lower quadrant abdominal pain Procedures CT Abdomen Pelvis W Contrast Antonio Portillo MD Phone: tel: fax: [address] [address] Referral ID Status Reason Start Date Expiration Date Visits Re quested Visits Authorized [id number] Closed 02/06/2018 03/07/2018 1 1 Reason for Visit * Diagnostic Imaging (Routine) - Closed Specialty Diagnoses / Procedures Referred By Contac t Referred To Contact Radiology Diagnoses Right lower quadrant abdominal pain Procedures CT Abdomen Pelvis W Contrast Antonio Portillo MD Phone: tel: fax: [address] [address] Referral ID Status Reason Start Date Expiration Date Visits Re quested Visits Authorized [id number] Closed 02/06/2018 03/07/2018 1 1 Encounter Details Date Type Department Care Team (Latest Contact Info) Description 02/06/2018 11:35 AM CDT - 02/06/2018 11:59 PM CDT Hospital Encounter [facility] [address] [place] [address] Antonio Portillo MD [address] [phone] [address] [place] [address] Right lower quadrant abdominal pain Discharge Disposition: Discharge to home or self care Social History Tobacco Use Types Packs/Day Years Used Date Smoking Tobacco: Never Smokeless Tobacco: Never Alcohol Use Standard Drinks/Week Comments No 0 (1 standard drink = 0.6 oz pur e alcohol) Sex and Gender Information Value Date Recorded Sex Assigned at Not on file Legal Sex Male 11:11 PM APPEALS ASSISTANT Gender Identity Not on file Sexual [...] before surgery. 6 tablet 12/21/2017 8 omega 5-mon-zpd-fish oil 300-1,000 mg capsule 1 capsule every [...] 02/06/2018 documented in this encounter Care Teams Medical Insurance Claims Specialist Relationship Specialty Start Date End Date Trenton Bess MD PCP - General 04/30/17 07/24/18 documented as of this encounter
--- OUTSIDE RECORDS SUMMARY | 2024-07-09 10:00 | XMS_ITS | Encounter Summary ---
Author Organization [facility] Address [address] [place] [address] Phone Care Team Providers Care Strategic Partnership Manager Name Role Phone Trenton Bess MD Primary Care Provider [phone] Encounter Details Date Type Department Care Team (Late st Contact Info) Description 02/06/2018 Telephone [facility] Gastroenterology [facility] 8th [place] [address] [place] [address] Eliana Quevedo MD [address] [place] [address] Social History Tobacco Use Types Packs/Day Years Used Date Smoking Tobacco: Never Smokeless Tobacco: Never Alcohol Use Standard Drinks/Week Comments No 0 (1 standard drink = 0.6 oz pur e alcohol) Sex and Gender Information Value Date Recorded Sex Assigned at Not on file 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 From: Mona Esqueda Sent: Tuesday, February 06, 2018 1:54 PM To: Margie Linda <[email or web address]>; Eliana Quevedo <[email or web address]>; Adeline Lennon <[email or web address]> Subject: RE: [secure] sm Pt scheduled with Linda 02/11 (02/08 is full) and pt seeing Dr. Portillo tomorrow and getting labs afterapt tomorrow. Pt states he restarted Humira on 01/25 and will inject again on 02/08. Also, pt states he is taking MTX on Fridays. Noted in chart. From: Margie Linda Sent: Tuesday, February 06, 2018 1:23 PM To: Eliana Quevedo <[email or web address]>; Mona Esqueda <[email or web address]>; Adeline Lennon <[email or web address]> Subject: RE: [secure] lilly Hopefully he started back on the Humira. Thanks for responding, please let me or Dr. Portillo know if you need anything. See you tomorrow. RY Nevarez III I Wastewater Design Engineer to Dr. Antonio Portillo and Dr. Alva Keating Department of Surgery I Colon & Rectal Surgery [address] Mail Stop [phone] [place] [address] [email or web address] From: Eliana Quevedo Sent: Tuesday, February 06, 2018 1:22 PM To: Margie Linda <[email or web address]>; Mona Esqueda <[email or web address]>; Adeline Lennon <[email or web address]> Subject: Re: [secure] lilly I spoke to the patient on 01/15 and I told him to restart his Humira 2 weeks post op with no escalated dose. I will have my staff make sure he has taken his humira (which should have happened last week.) I spoke to the radiologist at [facility] and it seems like there are mainly [...] Eliana Quevedo; Mona Esqueda Subject: [secure] Nic Caludio Male, 27 y.o., 1990 Phone: * , [...] the distal ileum. RY Nevarez III I Wastewater Design Engineer to Dr. Antonio Portillo and Dr. Alva Keating Department of Surgery I Colon & Rectal Surgery [address] [phone] [place] [address] [email or web address] documented in this encounter Plan of Treatment Not on file documented as of this encounter Visit Diagnoses Not on filedocumented in this encounter Care Teams Strategic Partnership Manager Relationship Specialty Start Date End Date Trenton Bess MD PCP - General 04/30/17 07/24/18 documented as of this encounter
--- OUTSIDE RECORDS SUMMARY | 2024-07-09 10:00 | XMS_ITS | Encounter Summary ---
Author Organization [facility] Healthcare Address [address] [place] [address] Care Team Providers Care Senior Technical Business Analyst Name Role Phone Trenton Bess MD Primary Care Provider [phone] Encounter Details Date Type Department Care Team (Late st Contact Info) Description 05/06/2018 5:00 PM FACTORY SUPERINTENDENT Lab [facility] Advanced Medicine [facility] Advanced Medicine ([place]) [address] [place] [phone] Fernando Mckeon MD [facility] [address] Low bone mass Discharge Disposition: Discharge to home or self care Social History Tobacco Use Types Packs/Day Years Used Date Smoking Tobacco: Never Smokeless Tobacco: Never Alcohol Use Standard Drinks/Week Comments No 0 (1 standard drink = 0.6 oz pur e alcohol) Sex and Gender Information Value Date Recorded Sex Assigned at Not on file Legal Sex Male 11:11 PM FACTORY SUPERINTENDENT Gender Identity Not on file Sexual Orientation Not on file documented as of this encounter Discharge Disposition Disposition Code Departure Means Destination Discharge to home or self care documented in this encounter Plan of Treatment Not on file documented as of this encounter Procedures Procedure Name Priority Date/Time Associated Diagnosis Comments VITAMIN D 25 HYDROXY Routine 05/06/2018 4:58 PM FACTORY SUPERINTENDENT Low bone mass documented in this encounter Results * Vitamin D 25 hydroxy (05/06/2018 4:58 PM FACTORY SUPERINTENDENT) Vitamin D 25-OH 30 30 - 80 ng/mL [facility]AVAL[facility] Blood specimen (specimen) 05/06/2018 4:58 PM FACTORY SUPERINTENDENT 05/06/2018 5:41 PM FACTORY SUPERINTENDENT Narrative [facility] - 05/06/2018 7:38 PM FACTORY SUPERINTENDENT us Fernando Mckeon MD LAB BLOOD ORDERABLES Final Resu lt [facility] One [facility] Department [place] [address] documented in this encounter Visit Diagnoses Diagnosis Low bone mass documented in this encounter Care Teams Senior Technical Business Analyst Relationship Specialty Start Date End Date Trenton Bess MD PCP - General 04/30/17 07/24/18 documented as of this encounter
--- OUTSIDE RECORDS SUMMARY | 2024-07-09 10:00 | XMS_ITS | Encounter Summary ---
Author Organization [facility] Address [address] [place] [address] Phone Care Team Providers Care Rivet Heater Gas Name Role Phone Trenton Bess MD Primary Care Provider [phone] Encounter Details Date Type Department Care Team (Late st Contact Info) Description 03/25/2018 Documentation [facility] 8th [place] [address] [place] [phone] Shanika Braun Social History Tobacco Use Types Packs/Day Years Used Date Smoking Tobacco: Never Smokeless Tobacco: Never Alcohol Use Standard Drinks/Week Comments No 0 (1 standard drink = 0.6 oz pur e alcohol) Sex and Gender Information Value Date Recorded Sex Assigned at Not on file Legal Sex Male 11: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
--- OUTSIDE RECORDS SUMMARY | 2024-07-09 10:00 | XMS_ITS | Encounter Summary ---
Author Organization [facility] Address [address] [place] [address] Phone Care Team Providers Care Building Supplies Salesperson Retail Name Role Phone Trenton Bess MD Primary Care Provider [phone] Encounter Details Date Type Department Care Team (Late st Contact Info) Description 02/07/2018 Orders Only [facility] Surgery [address] [facility] Advanced [facility] 8th [place] [address] [place] [address] Antonio Portillo MD [address] [facility] [phone] [address] [place] [address] Social History Tobacco Use Types Packs/Day Years Used Date Smoking Tobacco: Never Smokeless Tobacco: Never Alcohol Use Standard Drinks/Week Comments No 0 (1 standard drink = 0.6 oz pur e alcohol) Sex and Gender Information Value Date Recorded Sex Assigned at Not on file Legal Sex Male 11: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
--- OUTSIDE RECORDS SUMMARY | 2024-07-09 10:00 | XMS_ITS | Encounter Summary ---
Author Organization [facility] Address [address] [place] [address] Phone Care Team Providers Care Movie Stunt Performer Name Role Phone Trenton Bess MD Primary Care Provider [phone] Encounter Details Date Type Department Care Team (Late st Contact Info) Description 04/04/2018 Orders Only [facility] Gastroenterology [address] [facility] 8th [place] [address] [place] [address] Shanika Braun Crohn's disease of both small and large intestine with complication (CMS/HCC) Social History Tobacco Use Types Packs/Day Years Used Date Smoking Tobacco: Never Smokeless Tobacco: Never Alcohol Use Standard Drinks/Week Comments No 0 (1 standard drink = 0.6 oz pur e alcohol) Sex and Gender Information Value Date Recorded Sex Assigned at Not on file Legal Sex Male 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
--- OUTSIDE RECORDS SUMMARY | 2024-07-09 10:01 | XMS_ITS | Encounter Summary ---
Author Organization [facility] Address [address] [place] [address] Phone Care Team Providers Care Ladies Locker Room Attendant Name Role Phone Trenton Bess MD Primary Care Provider [phone] Encounter Details Date Type Department Care Team (Late st Contact Info) Description 01/15/2018 Telephone [facility] Gastroenterology [facility] 8th [place] [address] [place] [address] Shanika Braun Social History Tobacco Use Types Packs/Day Years Used Date Smoking Tobacco: Never Smokeless Tobacco: Never Alcohol Use Standard Drinks/Week Comments No 0 (1 standard drink = 0.6 oz pur e alcohol) Sex and Gender Information Value Date Recorded Sex Assigned at Not on file Legal Sex Male 11:11 PM SENIOR MAJOR 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
--- OUTSIDE RECORDS SUMMARY | 2024-07-09 10:01 | XMS_ITS | Encounter Summary ---
Author Organization [facility] Address [address] [place] [address] Phone Care Team Providers Care Order Picker Name Role Phone Trenton Bess MD Primary Care Provider [phone] Encounter Details Date Type Department Care Team (Late st Contact Info) Description 11/21/2017 Orders Only [facility] Gastroenterology [address] [facility] 8th [place] [address] [place] [address] Zohra Davila RMA Social History Tobacco Use Types Packs/Day Years Used Date Smoking Tobacco: Former Sex and Gender Information Value Date Recorded Sex Assigned at Not on file Legal Sex Male 11:11 PM VASCULAR 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
--- OUTSIDE RECORDS SUMMARY | 2024-07-09 10:01 | XMS_ITS | Encounter Summary ---
Author Organization [facility] Healthcare Address [address] [place] [address] Care Team Providers Care Mason Tender Restoration Labor Name Role Phone Trenton Bess MD Primary Care Provider [phone] Encounter Details Date Type Department Care Team (Late st Contact Info) Description 08/07/2017 1:01 PM COMMUNICATION COORDINATOR - 08/07/2017 11:59 PM COMMUNICATION COORDINATOR Hospital Encounter [facility] [phone] Eliana Quevedo MD [address] [facility] [address] [place] [address] Discharge Disposition: Discharge to home or self care Social History Tobacco Use Types Packs/Day Years Used Date Smoking Tobacco: Former Sex and Gender Information Value Date Recorded Sex Assigned at Not on file Legal Sex Male 11:11 PM COMMUNICATION COORDINATOR Gender Identity Not on file Sexual [...] Routine Gen Lab 08/07/2017 1:1 7 PM COMMUNICATION COORDINATOR CBC WITH AUTO DIFFERENTIAL Routine Gen Lab 08/07/2017 1:17 PM COMMUNICATION COORDINATOR HEPATIC FUNCTION PANEL Routine Gen Lab 8 1:17 PM COMMUNICATION COORDINATOR CRYPTOSPORIDIUM AND GIARDIA ANTIGEN ASSAY RTNm 08/07/2017 12:58 PM COMMUNICATION COORDINATOR DISCHARGE LABORATORY CUMULATIVE REPORT 08/07/2017 12:00 AM COMMUNICATION COORDINATOR documented in this encounter Results * Hepatic function panel (08/07/2017 1:17 PM COMMUNICATION COORDINATOR) AST 26 10 - 50 Units/L [facility] ALT 53 7 - 55 Units/L [facility] Alk phos 58 40 - 130 Units/L [facility] Bilirubin, total 0.5 0.1 - 1.2 mg/dL [facility] Bilirubin, direct 0.2 0.1 - 0.3 mg/dL [facility] Protein, pl 7.6 6.5 - 8.5 g/dL [facility] Albumin 4.5 3.5 - 5.0 g/dL [facility] Blood specimen (specimen) 08/07/2017 1:17 PM COMMUNICATION COORDINATOR 08/07/2017 1:32 PM COMMUNICATION COORDINATOR Narrative [facility] - 08/07/2017 2:10 PM COMMUNICATION COORDINATOR us Eliana Quevedo MD LAB BLOOD ORDERABLE S Final Result [facility] One [facility] Department [place] [address] * Differential, auto (08/07/2017 1:17 PM COMMUNICATION COORDINATOR) Neutrophil pct 52.5 % [facility] Imm gran pct 0.3 % [facility] Lymphocyte pct 39.5 % [facility] Monocyte pct 6.1 % [facility] Eosinophil pct 1.2 % [facility] Basophil pct 0.4 % [facility] Neutrophil abs 3.86 1.70 - 6.50 K/cumm [facility] Imm gran abs 0.02 0.00 - 0.10 K/cumm [facility] Lymphocyte abs 2.90 0.80 - 3.30 K/cumm [facility] Monocyte abs 0.45 0.20 - 0.80 K/cumm [facility] Eosinophil abs 0.09 0.00 - 0.50 K/cumm [facility] Basophil abs 0.03 0.00 - 0.10 K/cumm [facility] Blood specimen (specimen) 08/07/2017 1:17 PM COMMUNICATION COORDINATOR 08/07/2017 1:32 PM COMMUNICATION COORDINATOR Narrative [facility] - 08/07/2017 1:46 PM COMMUNICATION COORDINATOR Eliana Quevedo MD LAB BLOOD ORDERABLE S Final Result [facility] Department [place] [address] * CBC with auto differential (08/07/2017 1:17 PM COMMUNICATION COORDINATOR) WBC 7.4 3.8 - 9.9 K/cumm [facility] RBC 4.40 4.30 - 5.80 M/cumm [facility] Hgb 13.6 13.0 - 17.5 g/dL [facility] Hct 40.8 38.9 - 50.3 % [facility] MCV 92.7 81.3 - 96.4 fL [facility] MCH 30.9 27.1 - 33.3 pg [facility] MCHC 33.3 32.3 - 35.7 g/dL [facility] RDW CV 12.4 11.1 - 14.9 % [facility] RDW SD 42.5 35.7 - 48.1 fL [facility] Plt 216 150 - 400 K/cumm [facility] MPV 10.1 9.1 - 12.3 fL [facility] NRBC abs 0.00 0.00 - 0.01 K/cumm [facility] Blood specimen (specimen) 08/07/2017 1:17 PM COMMUNICATION COORDINATOR 08/07/2017 1:32 PM COMMUNICATION COORDINATOR Narrative [facility] - 08/07/2017 1:46 PM COMMUNICATION COORDINATOR Eliana Quevedo MD LAB BLOOD ORDERABLE S Final Result [facility] One [facility] Department [place] [address] * Ova and parasite screen (08/07/2017 12:58 PM COMMUNICATION COORDINATOR) Report Final Report: Negative [facility] Stool 08/07/2017 12:5 8 PM COMMUNICATION COORDINATOR 08/07/2017 3:22 PM COMMUNICATION COORDINATOR Narrative [facility] - 08/07/2017 3:24 PM COMMUNICATION COORDINATOR Received in PVA and Formalin. This test is an Immunoassay which screens for Cryptosporidium and Giardia only. ??Please request Microscopic OP Exam if comprehensive examination for ova and parasites is required. ?? Current interpretive data was last revised on 04. us Eliana Quevedo MD LAB MICROBIOLOGY - GENERAL ORDERABLES Final Result [facility] One [facility] Department [place] [address] * DISCHARGE LABORATORY CUMULATIVE REPORT (08/07/2017 12:00 AM COMMUNICATION COORDINATOR) Narrative 08/07/2017 12:00 AM COMMUNICATION COORDINATOR Ordered by an unspecified provider. Historical Provider LAB BLOOD ORDERABLES Melinda l Result documented in this encounter Visit Diagnoses Not on filedocumented in this encounter Care Teams Mason Tender Restoration Labor Relationship Specialty Start Date End Date Trenton Bess MD PCP - General 04/30/17 07/24/18 documented as of this encounter
--- OUTSIDE RECORDS SUMMARY | 2024-07-09 10:01 | XMS_ITS | Encounter Summary ---
Author Organization [facility] Address [address] [facility] [address] [place] [address] Phone Care Team Providers Care Sheet Finisher Name Role Phone Trenton Bess MD Primary Care Provider [phone] Reason for Referral * Diagnostic Imaging (Routine) - Closed Specialty Diagnoses / Procedures Referred By Contac t Referred To Contact Radiology Diagnoses Right lower quadrant abdominal pain Procedures CT Abdomen Pelvis W Contrast Antonio Portillo MD Phone: tel: fax: [address] [address] Referral ID Status Reason Start Date Expiration Date Visits Re quested Visits Authorized [id number] Closed 02/06/2018 03/07/2018 1 1 Encounter Details Date Type Department Care Team (Late st Contact Info) Description 02/06/2018 Orders Only [facility] Surgery [address] [facility] Advanced Medicine 8th [place] [address] [place] [address] Antonio Portillo MD [address] [facility] [phone] [address] [place] [address] Left lower quadrant pain (Primary Dx); Right lower quadrant abdominal pain Social History Tobacco Use Types Packs/Day Years Used Date Smoking Tobacco: Never Smokeless Tobacco: Never Alcohol Use Standard Drinks/Week Comments No 0 (1 standard drink = 0.6 oz pur e alcohol) Sex and Gender Information Value Date Recorded Sex Assigned at Not on file Legal Sex Male 11:11 PM 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 Gender Identity Not on file Sexual [...] CDT) WBC 6.7 3.8 - 9.9 K/cumm [facility] Hgb 11.4(L) 13.0 - 17.5 g/dL [facility] Hct 35.4(L) 38.9 - 50.3 % [facility] Plt 302 150 - 400 K/cumm [facility] MPV 9.4 9.1 - 12.3 fL [facility] RBC 3.88(L) 4.30 - 5.80 M/cumm [facility] MCV 91.2 81.3 - 96.4 fL [facility] MCH 29.4 27.1 - 33.3 pg [facility] MCHC 32.2(L) 32.3 - 35.7 g/dL [facility] RDW CV 12.5 11.1 - 14.9 % [facility] RDW SD 41.3 35.7 - 48.1 fL [facility] NRBC abs 0.00 0.00 - 0.01 K/cumm [facility] Blood specimen (specimen) 02/07/2018 12:09 PM CDT 02/07/2018 12:24 PM CDT Narrative [facility] - 02/07/2018 1:01 PM CDT Antonio Portillo MD LAB BLOOD ORDERABLES Final Result Performing Organization Address City/[facility]/ZIP Co de Phone Number [facility] Department [place] [address] * Hepatic function panel (02/07/2018 12:09 PM CDT) Bilirubin, total 0.3 0.1 - 1.2 mg/dL [facility] Bilirubin, direct <0.2 0.1 - 0.3 mg/dL [facility] Protein, pl 8.3 6.5 - 8.5 g/dL [facility] Albumin 4.2 3.5 - 5.0 g/dL [facility] Alk phos 82 40 - 130 Units/L [facility] ALT 35 7 - 55 Units/L [facility] AST 22 10 - 50 Units/L [facility] Blood specimen (specimen) 02/07/2018 12:09 PM CDT 02/07/2018 12:24 PM CDT Narrative [facility] - 02/07/2018 1:40 PM CDT Antonio Portillo MD LAB BLOOD ORDERABLES Final Result [facility] One [facility] Department [place] [address] * CT Abdomen Pelvis W Contrast (02/06/2018 [...] pain documented in this encounter Care Teams Sheet Finisher Relationship Specialty Start Date End Date Trenton Bess MD PCP - General 04/30/17 07/24/18 documented as of this encounter
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
--- OUTSIDE RECORDS SUMMARY | 2024-07-09 10:01 | XMS_ITS | Encounter Summary ---
Author Organization [facility] Address [address] [place] [address] Phone Care Team Providers Care Store Worker Name Role Phone Trenton Bess MD Primary Care Provider [phone] Encounter Details Date Type Department Care Team (Late st Contact Info) Description 11/30/2017 Orders Only [facility] Surgery [address] [facility] 8th [place] [address] [place] [phone] Margie Linda RMA Social History Tobacco Use Types Packs/Day Years Used Date Smoking Tobacco: Former Sex and Gender Information Value Date Recorded Sex Assigned at Not on file Legal Sex Male 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 11/16/2017 04/03/2019 calcium carbonate (OS-ANA) 1,500 mg (600 mg of elemental calcium) tablet every morning. 11/16/2017 05/12/2019 added in this encounter Care Teams Store Worker Relationship Specialty Start Date End Date Trenton Bess MD PCP - General 04/30/17 07/24/18 documented as of this encounter
--- OUTSIDE RECORDS SUMMARY | 2024-07-09 10:01 | XMS_ITS | Encounter Summary ---
Author Organization [facility] Address [address] [place] [address] Phone Care Team Providers Care Source Water Protection Specialist Name Role Phone Trenton Bess MD Primary Care Provider [phone] Encounter Details Date Type Department Care Team (Late st Contact Info) Description 12/21/2017 Orders Only [facility] Surgery [address] [facility] 8th Floor [address] [place] [phone] Antonio Portillo MD [address] [facility] [phone] [place] [address] Social History Tobacco Use Types Packs/Day Years Used Date Smoking Tobacco: Former Smokeless Tobacco: Never Alcohol Use Standard Drinks/Week Comments No 0 (1 standard drink = 0.6 oz pur e alcohol) Sex and Gender Information Value Date Recorded Sex Assigned at Not on file 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
--- OUTSIDE RECORDS SUMMARY | 2024-07-09 10:01 | XMS_ITS | Encounter Summary ---
Author Organization [facility] Address [address] [facility] [address] [place] [address] Phone Care Team Providers Care Hydraulic Tester Name Role Phone Trenton Bess MD Primary Care Provider Reason for Visit * Reason Comments Follow-up crohn's disease Encounter Details Date Type Department Care Team (Late st Contact Info) Description 12/20/2017 10:45 AM CDT Office Visit [facility] Surgery [address] [facility] [address] [place] [address] [place] [phone] Antonio Portillo MD [address] [facility] [phone] [place] [address] Crohn's disease of both small and large intestine with fistula (CMS/HCC) (Primary Dx) Social History Tobacco Use Types Packs/Day Years Used Date Smoking Tobacco: Former Smokeless Tobacco: Never Alcohol Use Standard Drinks/Week Comments No 0 (1 standard drink = 0.6 oz pur e alcohol) Sex and Gender Information Value Date Recorded Sex Assigned at Not on file Legal Sex Male 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
--- OUTSIDE RECORDS SUMMARY | 2024-07-09 10:01 | XMS_ITS | Encounter Summary ---
Author Organization [facility] Healthcare Address [address] [place] [address] Care Team Providers Care Audio/Visual Operator Name Role Phone Trenton Bess MD Primary Care Provider [phone] Encounter Details Date Type Department Care Team (Late st Contact Info) Description 01/11/2018 7:25 AM CDT Anesthesia Event [facility] Operating Room [address] [place] [phone] Osiel Winston MD [address] [place] [address] Anesthesia Record Procedure Summary Procedure Name Responsible [...] Time: 1607 01/11/18 0745 by Bulmaro Singh, DIRECTOR WORKERS COMPENSATION 01/14/18 1607 by Jossy Easton RETIRED Surgical [...] file 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 Gender Identity Not on file Sexual Orientation Not on file documented as of this encounter OR Notes * Anesthesia Postprocedure Evaluation - Osiel Winston MD - 01/11/2018 11:16 AM CDT Patient: Nic Teran Procedure Summary Date: 01/11/18 Room / Location: [facility] OR POD 1 ROOM 330 / [facility] OR POD 1 Anesthesia Start: 724 Anesthesia Stop: 1021 Procedures: LAPAROSCOPIC RESECTION - ILEOCOLIC (N/A Abdomen) Repair Fistula - Colon (N/A ) Proctosigmoidoscopy (N/A ) Diagnosis: Crohn's disease with complication, unspecified gastrointestinal tract location (CMS/HCC) (Crohn's disease with complication, unspecified gastrointestinal tract location (CMS/HCC) [K50.919]) Surgeon: nAtonio Portillo MD Responsible Provider: Osiel Winston MD [...] none * Anesthesia Procedure Notes - Bulmaro Sinhg - 01/11/2018 7:56 AM CDT Associated Order(s): [...] Planning Preoperative Evaluation Record [facility] ([facility]) Anesthesia Evaluation Procedure(s): LAPAROSCOPIC RESECTION - ILEOCOLIC HISTORY HPI Nic Teran is a 27 y.o. male who is being evaluated prior to undergoing laparoscopic ileocolic resection for Crohn's disease . Past Medical History Information obtained from: patient. Neurological Pertinent negatives: seizures neuromuscular disease CVA/stroke TIA CEA ICA stenosis dementia/mild cognitive impairment carotid artery stent Cardiovascular Pertinent negatives: hypertension CAD [place] CABG valvular heart disease valve replacement atrial [...] tablet neomycin (MYCIFRADIN) 500 mg tablet omega 0-lgl-fls-fish oil 300-1,000 mg capsule ondansetron (ZOFRAN) 8 [...] neomycin (MYCIFRADIN) 500 mg tablet ??? omega 3-gcr-nvy-fish oil 300-1,000 mg capsule ??? ondansetron (ZOFRAN) [...] Medication protocol when under care of a DIRECTOR WORKERS COMPENSATION Planned anesthesia: General and PNB - single shot Truncal: TAP nerve block - classical (posterior) Induction: Induction: intravenous. Postoperative Plan: Postoperative administration opioids intended. No postoperative mechanical ventilation intended. Patient's planned disposition post procedure is Floor. Informed Consent: Discussed plan with DIRECTOR WORKERS COMPENSATION. Anesthesia plan and risks discussed with patient. [...] Procedure Name Priority Date/Time Associated Diagnosis Comments ND AN PROCEDURE PLACEHOLDER Routine 01/11/2018 7:56 AM [...] with: silk tape Number of attempts: 1 ND AN ELECTIVE ENDOTRACHEAL AIRWAY Routine 01/11/2018 7:56 [...] 01/11/2018 documented in this encounter Care Teams Audio/Visual Operator Relationship Specialty Start Date End Date Trenton Bess MD PCP - General 04/30/17 07/24/18 documented as of this encounter
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
--- OUTSIDE RECORDS SUMMARY | 2024-07-09 10:01 | XMS_ITS | Encounter Summary ---
Author Organization [facility] Address [address] [place] [address] Phone Care Team Providers Care Logistics System Engineer Name Role Phone Trenton Bess MD Primary Care Provider [phone] Reason for Visit * Reason Comments Post-op wound check Encounter Details Date Type Department Care Team (Late st Contact Info) Description 01/22/2018 1:45 PM CDT Office Visit [facility] [address] [place] [id number] Crohn's disease of both small and large [...] Primary documented in this encounter Care Teams Logistics System Engineer Relationship Specialty Start Date End Date Trenton Bess MD PCP - General 04/30/17 07/24/18 documented as of this encounter
--- OUTSIDE RECORDS SUMMARY | 2024-07-09 10:01 | XMS_ITS | Encounter Summary ---
Author Organization [facility] Address [address] [place] [address] Phone Care Team Providers Care Web Content Manager Name Role Phone Trenton Bess MD Primary Care Provider [phone] Encounter Details Date Type Department Care Team (Late st Contact Info) Description 12/21/2017 Orders Only [facility] [address] 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 For more information on this test, go to: http://education.RETC/faq/KLE949 (This link is being provided for informational/educational purposes only.) 12/21/2017 1:36 PM CDT 12/21/2017 1:38 PM CDT Narrative [facility] - 12/22/2017 6:07 AM CDT COLLECTION REQUIREMENTS NOT MET. PATIENT ADVISED TO RETURN. Resulting Agency Comment Performing Organization Information: ?Site ID: [place] ?Name: [facility] ?Address: [address] [address] ?Director: Christopher Salas D.O., MPH us Fernando Mckeon MD LAB BLOOD ORDERABLES Final Resu lt [facility] [place] documented in this encounter Visit Diagnoses Not on filedocumented in this encounter Care Teams Web Content Manager Relationship Specialty Start Date End Date Trenton Bess MD PCP - General 04/30/17 07/24/18 documented as of this encounter
--- OUTSIDE RECORDS SUMMARY | 2024-07-09 10:01 | XMS_ITS | Encounter Summary ---
Author Organization [facility] Address [address] [place] [address] Phone Care Team Providers Care Tractor Sweeper Operator Name Role Phone Trenton Bess MD Primary Care Provider [phone] Encounter Details Date Type Department Care Team (Late st Contact Info) Description 01/08/2018 Telephone [facility] Surgery [address] [place] [address] Margie Linda RMA Social History Tobacco Use Types Packs/Day Years Used Date Smoking Tobacco: Former Smokeless Tobacco: Never Alcohol Use Standard Drinks/Week Comments No 0 (1 standard drink = 0.6 oz pur e alcohol) Sex and Gender Information Value Date Recorded Sex Assigned at Not on file Legal Sex Male 11:11 PM NONPROFIT DIRECTOR Gender Identity Not on file Sexual Orientation Not on file documented as of this encounter Miscellaneous Notes * Telephone Encounter - Margie Linda MA - 01/08/2018 3:17 PM CDT LVM for Mr. Teran in regards to his surgery this Sunday with Dr. Portillo. He is to start his prepon , and arrive at 0530 for 729 surgery at [facility]. My direct number was left for any questions. documented in this encounter Plan of Treatment Not on file documented as of this encounter Visit Diagnoses Not on filedocumented in this encounter Care Teams Tractor Sweeper Operator Relationship Specialty Start Date End Date Trenton Bess MD PCP - General 04/30/17 07/24/18 documented as of this encounter
--- OUTSIDE RECORDS SUMMARY | 2024-07-09 10:01 | XMS_ITS | Encounter Summary ---
Author Organization [facility] Address [address] [place] [address] Care Team Providers Care Electrical Designer Drafter Name Role Phone Trenton Bess MD Primary Care Provider [phone] Lanre Parekh DO Primary Care Provide r Trenton Bess MD Primary Care Provider [phone] Lanre Parekh DO Primary Care Provide r Eliana Quevedo MD Unavailable [phone] Encounter Details Date Type Department Care Team (Late st Contact Info) Description 01/25/2018 Documentation [facility] [address] [place] [address] Felicity Naik RN Social History Tobacco Use Types Packs/Day Years Used Date Smoking Tobacco: Never Smokeless Tobacco: Never Alcohol Use Standard Drinks/Week Comments No 0 (1 standard drink = 0.6 oz pur e alcohol) Sex and Gender Information Value Date Recorded Sex Assigned at Not on file Legal Sex Male 11:11 PM ORAL AND MAXILLOFACIAL PATHOLOGIST Gender Identity Not on file Sexual Orientation Not on file documented as of this encounter Plan of Treatment Not on file documented as of this encounter Visit Diagnoses Not on filedocumented in this encounter Care Teams Electrical Designer Drafter Relationship Specialty Start Date End Date Trenton Bess MD PCP - General 04/30/17 07/24/18 Lanre Parekh DO [address] [place] [address] PCP - General Family Medicine 07/25/18 07/28/18 Trenton Bess MD PCP - General 07/29/18 01/22/19 Lanre Parekh DO [address] [place] [address] PCP - General Family Medicine 01/23/19 Eliana Quevedo MD [address] [place] [address] Referring Physician Gastroenterology 11/07/22 documented as of this encounter
--- OUTSIDE RECORDS SUMMARY | 2024-07-09 10:01 | XMS_ITS | Encounter Summary ---
Author Organization [facility] Address [address] [place] [address] Phone Care Team Providers Care Print Press Operator Name Role Phone Trenton Bess MD Primary Care Provider [phone] Encounter Details Date Type Department Care Team (Late st Contact Info) Description 01/15/2018 Orders Only [facility] Gastroenterology [address] [facility] 8th [place] [address] [place] [address] Shanika Braun Social History Tobacco Use Types Packs/Day Years Used Date Smoking Tobacco: Never Smokeless Tobacco: Never Alcohol Use Standard Drinks/Week Comments No 0 (1 standard drink = 0.6 oz pur e alcohol) Sex and Gender Information Value Date Recorded Sex Assigned at Not on file Legal Sex Male 11:11 PM KEY CUTTER Gender Identity Not on file Sexual Orientation Not on file documented as of this encounter Plan of Treatment Not on file documented as of this encounter Visit Diagnoses Not on filedocumented in this encounter Care Teams Print Press Operator Relationship Specialty Start Date End Date Trenton Bess MD PCP - General 04/30/17 07/24/18 documented as of this encounter
--- OUTSIDE RECORDS SUMMARY | 2024-07-09 10:01 | XMS_ITS | Encounter Summary ---
Author Organization [facility] Healthcare Address [address] [place] [address] Care Team Providers Care Vat Washer Name Role Phone Trenton Bess MD Primary Care Provider [phone] Encounter Details Date Type Department Care Team (Late st Contact Info) Description 06/22/2017 6:40 AM STEEL FINISHER - 06/22/2017 8:57 AM STEEL FINISHER Hospital Encounter [facility] OP INTERIM [phone] Eliana Quevedo MD [address] [facility] [address] [place] [address] Discharge Disposition: Discharge to home or self care Social History Tobacco Use Types Packs/Day Years Used Date Smoking Tobacco: Former Sex and Gender Information Value Date Recorded Sex Assigned at Not on file Legal Sex Male 11:11 PM STEEL FINISHER Gender Identity Not on file Sexual [...] on filedocumented in this encounter Care Teams Vat Washer Relationship Specialty Start Date End Date Trenton Bess MD PCP - General 04/30/17 07/24/18 documented as of this encounter
--- OUTSIDE RECORDS SUMMARY | 2024-07-09 10:01 | XMS_ITS | Encounter Summary ---
Author Organization [facility] Address [address] [place] [address] Phone Care Team Providers Care Color Maker Formulator Name Role Phone Trenton Bess MD Primary Care Provider [phone] Encounter Details Date Type Department Care Team (Late st Contact Info) Description 01/25/2018 Telephone [facility] Urology [address] [address] [place] [id number] [place] [address] Social History Tobacco Use Types Packs/Day Years Used Date Smoking Tobacco: Never Smokeless Tobacco: Never Alcohol Use Standard Drinks/Week Comments No 0 (1 standard drink = 0.6 oz pur e alcohol) Sex and Gender Information Value Date Recorded Sex Assigned at Not on file Legal Sex Male 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
--- OUTSIDE RECORDS SUMMARY | 2024-07-09 10:01 | XMS_ITS | Encounter Summary ---
Author Organization [facility] Address [address] [place] [address] Phone Care Team Providers Care Procurement Engineer Name Role Phone Trenton Bess MD Primary Care Provider [phone] Reason for Visit * Reason Comments Patient Education Encounter Details Date Type Department Care Team (Late st Contact Info) Description 01/09/2018 3:15 PM CDT Office Visit [facility] Advanced Medicine 8th [place] [address] [place] [phone] Crohn's disease of small and large intestines with complication (CMS/HCC) (Primary Dx) Social History Tobacco Use Types Packs/Day Years Used Date Smoking Tobacco: Never Smokeless Tobacco: Never Alcohol Use Standard Drinks/Week Comments No 0 (1 standard drink = 0.6 oz pur e alcohol) Sex and Gender Information Value Date Recorded Sex Assigned at Not on file Legal Sex Male 11:11 PM BILL COLLECTOR Gender Identity Not on file Sexual Orientation [...] documented as of this encounter Care Teams Procurement Engineer Relationship Specialty Start Date End Date Trenton Bess MD PCP - General 04/30/17 07/24/18 documented as of this encounter
--- OUTSIDE RECORDS SUMMARY | 2024-07-09 10:01 | XMS_ITS | Encounter Summary ---
Author Organization [facility] Address [address] [place] [address] Phone Care Team Providers Care Apprentice Name Role Phone Trenton Bess MD Primary Care Provider [phone] Encounter Details Date Type Department Care Team (Late st Contact Info) Description 12/07/2017 8:30 AM CDT Office Visit [facility] Gastroenterology [address] [facility] Medicine 8th [place] [address] [place] [phone] Veronica Morse, PATIENT BILLER [address] [place] [address] Crohn's disease of both small and large intestine without complication (CMS/HCC) (Primary Dx); History of high risk medication treatment Social History Tobacco Use Types Packs/Day Years Used Date Smoking Tobacco: Former Smokeless Tobacco: Never Sex and Gender Information Value Date Recorded Sex Assigned at Not on file Legal Sex Male 11:11 PM DOOR CLAMP OPERATOR Gender Identity Not on file Sexual [...] this encounter Progress Notes * Veronica Morse, PATIENT BILLER - 12/07/2017 8:30 AM CDT Reason for [...] every 3 months, DUE 10/2017 ??? omega 7-ylt-ucg-fish oil 300-1,000 mg capsule daily. ??? ondansetron [...] get the Vitamin D today and pick and shovel man the container for the 24hr urine. He [...] get the Vitamin D today and pick and shovel man the container for the 24hr urine. He [...] treatment documented in this encounter Care Teams Apprentice Relationship Specialty Start Date End Date Trenton Bess MD PCP - General 04/30/17 07/24/18 documented as of this encounter
--- OUTSIDE RECORDS SUMMARY | 2024-07-09 10:01 | XMS_ITS | Encounter Summary ---
Author Organization [facility] Address [address] [place] [address] Phone Care Team Providers Care Director Agricultural Services Name Role Phone Trenton Bess MD Primary Care Provider [phone] Encounter Details Date Type Department Care Team (Late st Contact Info) Description 12/24/2017 Orders Only [facility] [address] [facility] Advanced [facility] 5th [place] [address] [place] [address] Fernando Mckeon MD [address] [facility] [address] [place] [id number] Social History Tobacco Use Types Packs/Day Years [...] 24 hour ur 242 mg/24 h [facility] Kamla WALTERS Comment: ?Reference Range ??55-300 ?Low calcium diet 55-200 URINE VOLUME: 1600/24 12/24/2017 4:09 PM CDT 12/24/2017 4:10 PM CDT Narrative [facility] - 12/25/2017 5:32 PM CDT SPLIT 12/21/2017 FROM [id number] Resulting Agency Comment Performing Organization Information: ?Site ID: [place] ?Name: [facility] ?Address: [address] [place] [address] [place] [address] ?Director: Christopher Salas D.O., MPH us Fernando Mckeon MD LAB URINE ORDERABLES Final Resu lt [facility] [place] * Creatinine, urine, 24 hour (12/24/2017 4:09 PM CDT) Creatinine, 24 hour ur 1.89 0.63 - 2.50 g/24 h [facility] WALTERS Comment:URINE VOLUME: 1600/2 4 12/24/2017 4:09 PM CDT 12/24/2017 4:10 PM CDT Narrative [facility] - 12/25/2017 5:32 PM CDT SPLIT 12/21/2017 FROM [id number] Resulting Agency Comment Performing Organization Information: ?Site ID: [place] ?Name: [facility] ?Address: [address] [place], [place] [address] [address] ?Director: Christopher Salas D.O., MPH us Fernando Mckeon MD LAB URINE ORDERABLES Final Resu lt [facility] [place] documented in this encounter Visit Diagnoses Not on filedocumented in this encounter Care Teams Director Agricultural Services Relationship Specialty Start Date End Date Trenton Bess MD PCP - General 04/30/17 07/24/18 documented as of this encounter
--- OUTSIDE RECORDS SUMMARY | 2024-07-09 10:02 | XMS_ITS | Encounter Summary ---
Author Organization [facility] Address [address] [place] [address] Care Team Providers Care Window/Distribution Clerk Name Role Phone Trenton Bess MD Primary Care Provider [phone] Encounter Details Date Type Department Care Team (Latest Contact Info) Description 04/30/2017 2:25 PM CDT - 04/30/2017 11:59 PM CDT Hospital Encounter [facility] INTERIM [phone] Fernando Mckeon MD [address] [address] Discharge Disposition: Discharge to home or self care Social History Tobacco Use Types Packs/Day Years Used Date Smoking Tobacco: Never Assessed Sex and Gender Information Value Date Recorded Sex Assigned at Not on file Legal Sex Male 11:11 PM NURSE OFFICE Gender Identity Not on file Sexual Orientation [...] its performance characteristics determined by [facility] in a manner consistent with CLIA requirements. This test has not been cleared or approved by the U.S. Food and Drug Administration. Test Performed by: [facility] - [facility] [address] [place] [address] Testosterone, free 15.6 5.05 - 19.8 ng/dL [facility] Comment: ADDITIONAL INFORMATION Testing performed by [facility]. This test was developed and its performance characteristics determined by [facility] in a manner consistent with CLIA requirements. This test has not been cleared or approved by the U.S. Food and Drug Administration. Blood specimen (specimen) 04/30/2017 2:25 PM CDT 04/30/2017 7:09 PM CDT us Fernando Mckeon MD LAB BLOOD ORDERABLES Final Resu lt [facility] [place] [address] * (ABNORMAL) Protein electrophoresis, serum (04/30/2017 2:25 PM CDT) Pathologist [facility] Albumin 4.3 3.6 - 5.0 g/dL [facility] Comment:The name for this te st component was initially reported incorrectly as HIV-1 RNA. Corrected on 08/28/2017. Alpha-1 globulin 0.5(H) 0.2 - 0.4 g/dL [facility] Alpha-2, sr 0.8 0.4 - 0.9 g/dL [facility] Beta-1 globulin 0.5 0.3 - 0.6 g/dL [facility] Beta-2 globulin 0.5 0.2 - 0.6 g/dL [facility] Gamma globulin 1.3 0.6 - 1.7 g/dL [facility] SPEP interp No Apparent Monoclonal Peak. [facility] Blood specimen (specimen) 04/30/2017 2:25 PM CDT 04/30/2017 6:38 PM CDT us Fernando Mckeon MD LAB BLOOD ORDERABLES Final Resu lt [facility] [place] [address] * PROTEIN ELECTROPHORESIS, SERUM (04/30/2017 12:00 AM [...] on filedocumented in this encounter Care Teams Window/Distribution Clerk Relationship Specialty Start Date End Date Trenton Bess MD PCP - General 04/30/17 07/24/18 documented as of this encounter
--- OUTSIDE RECORDS SUMMARY | 2024-07-09 10:02 | XMS_ITS | Encounter Summary ---
Author Organization [facility] Address [address] [place] [address] Care Team Providers Care Deputy Grand Jury Name Role Phone Trenton Bess MD Primary Care Provider [phone] Encounter Details Date Type Department Care Team (Late st Contact Info) Description 05/17/2017 9:29 AM DYE WORKER - 05/17/2017 11:59 PM DYE WORKER Hospital Encounter [facility] OP INTERIM [phone] Eliana Quevedo MD [address] [facility] [address] [place] [address] Discharge Disposition: Discharge to home or self care Social History Tobacco Use Types Packs/Day Years Used Date Smoking Tobacco: Former Sex and Gender Information Value Date Recorded Sex Assigned at Not on file Legal Sex Male 11:11 PM DYE WORKER Gender Identity Not on file Sexual [...] SERUM Routine Gen Lab 05/17/2017 9:43 AM DYE WORKER DISCHARGE LABORATORY CUMULATIVE REPORT 05/17/2017 12:00 AM DYE WORKER documented in this encounter Results * ADALIMUMAB QUANTITATIVE WITH REFLEX TO ANTIBODY, SERUM (05/17/2017 9:43 AM DYE WORKER) ADALX Quant 21.9 mcg/mL [facility] Comment: For clinical assessment of response to therapy, adalimumab should be measured at trough. When adalimumab trough concentrations are greater than 5.0 mcg/mL, clinically relevant bafxhajjgh-kn-ddmayvrsts are unlikely and reflex testing will not be performed. REFERENCE VALUE Limit of Quantitation = 0.8 mcg/mL ADDITIONAL INFORMATION This test was developed and its performance characteristics determined by [facility] in a manner consistent with CLIA requirements. This test has not been cleared or approved by the U.S. Food and Drug Administration. Test Performed by: [facility] - [address] [address] Blood specimen (specimen) 05/17/2017 9:43 AM DYE WORKER 05/17/2017 10:55 AM DYE WORKER Eliana Quevedo MD LAB BLOOD ORDERABLE S Final Result [facility] Department [place] [address] * DISCHARGE LABORATORY CUMULATIVE REPORT (05/17/2017 12:00 AM DYE WORKER) Narrative 05/17/2017 12:00 AM DYE WORKER Ordered by an unspecified provider. Historical Provider LAB BLOOD ORDERABLES Melinda l Result documented in this encounter Visit Diagnoses Not on filedocumented in this encounter Care Teams Deputy Grand Jury Relationship Specialty Start Date End Date Trenton Bess MD PCP - General 04/30/17 07/24/18 documented as of this encounter
--- OUTSIDE RECORDS SUMMARY | 2024-07-09 10:02 | XMS_ITS | Encounter Summary ---
Author Organization [facility] Healthcare Address [address] [place] [address] Care Team Providers Care Bilingual Call Center Representative Name Role Phone Jovany Bess MD Primary Care Provider [phone] Encounter Details Date Type Department Care Team (Late st Contact Info) Description 06/08/2017 12:52 PM FUR STORAGE CLERK - 06/08/2017 11:59 PM FUR STORAGE CLERK Hospital Encounter [facility] OP INTERIM [phone] Yobany Gaming MD [address] [facility] [address] [place] [address] Discharge Disposition: Discharge to home or self care Social History Tobacco Use Types Packs/Day Years Used Date Smoking Tobacco: Former Sex and Gender Information Value Date Recorded Sex Assigned at Not on file Legal Sex Male 11:11 PM FUR STORAGE CLERK Gender Identity Not on file Sexual [...] W WO CONTRAST Routine 06/08/2017 9:11 PM FUR STORAGE CLERK POCT CREATININE FOR CONTRAST EVALUATION Routine Gen Lab 06/08/2017 1:36 PM FUR STORAGE CLERK documented in this encounter Results * MRI Abdomen W WO Contrast (06/08/2017 9:11 PM FUR STORAGE CLERK) Anatomical Region Laterality Modality Body N/A Magnetic Resonan ce 06/08/2017 9:11 PM FUR STORAGE CLERK Narrative 06/08/2017 9:39 PM FUR STORAGE CLERK SOFÍA SANCHEZ M.D. JOVANY PELLETIER M.D. FINAL REPORT The radiology attending physician has personally reviewed this study, and has reviewed and/or edited this written report and agrees with it. ACC# ??Date Time ??Exam [id number] Jun 08, 2017 15:11:00 [id number] MRI Abdomen wwo contrast EXAMINATION: ??MAGNETIC RESONANCE [...] SOFÍA SANCHEZ M.D. on Jun ??2016 ??3:37P [id number] SNACHEZ M.D. JOVANY PELLETIER M.D. FINAL REPORT The radiology attending physician has personally reviewed this study, and has reviewed and/or edited this written report and agrees with it. Attending: ??MEKHI, ??YOBANY Requesting: ??Mekhi, ??Yobany Requesting Fax: ?? Attending Fax: ?? Attending ID: ??[id number] Requesting ID: ??[id number] Report To 1 ID: ??[id number] ? Report To 1 Name: ??, ?? Report To 1 FAX: ?? NextGen Order #: ?? Procedure Note Miscellaneous, Not In File - 06/08/2017 SOFÍA SANCHEZ M.D. JOVANY PELLETIER M.D. FINAL REPORT The radiology attending physician has personally reviewed this study, and has reviewed and/or edited this written report and agrees with it. ACC# Date Time Exam [id number] Jun 08, 2017 15:11:00 [id number] MRI Abdomen wwo contrast EXAMINATION: MAGNETIC RESONANCE [...] SANCHEZ M.D. on Jun 08 2017 3:37P [id number] RK SANCHEZ M.D. JOVANY PELLETIER M.D. FINAL REPORT The radiology attending physician has personally reviewed this study, and has reviewed and/or edited this written report and agrees with it. Attending: YOBANY GAMING Requesting: Yobany Gaming Requesting Fax: Attending Fax: Attending ID: [id number] Requesting ID: [id number] Report To 1 ID: [id number] Report To 1 Name: , Report To 1 FAX: NextGen Order #: Yobany Gaming MD IMG MRI PROCEDURES Final Result * POCT creatinine (06/08/2017 1:36 PM FUR STORAGE CLERK) Creatinine POC 0.8 0.7 - 1.3 mg/dL [facility] Blood specimen (specimen) 06/08/2017 1:36 PM FUR STORAGE CLERK 06/08/2017 1:36 PM FUR STORAGE CLERK Narrative [facility] - 06/08/2017 1:45 PM FUR STORAGE CLERK Yobany Gaming MD POINT OF CARE TEST ORDERABLES Final Result [facility] Department [place] [address] documented in this encounter Visit Diagnoses Not on filedocumented in this encounter Care Teams Bilingual Call Center Representative Relationship Specialty Start Date End Date Jovany Bess MD PCP - General 04/30/17 07/24/18 documented as of this encounter
--- OUTSIDE RECORDS SUMMARY | 2024-07-09 10:02 | XMS_ITS | Encounter Summary ---
Author Organization [facility] Healthcare Address [address] [place] [address] Care Team Providers Care Central Office Repairer Supervisor Name Role Phone Trenton Bess MD Primary Care Provider [phone] Encounter Details Date Type Department Care Team (Late st Contact Info) Description 01/25/2017 10:06 AM CDT - 01/25/2017 11:59 PM T Hospital Encounter [facility] INTERIM [phone] Eliana Quevedo MD [address] [facility] [address] [place] [address] Discharge Disposition: Discharge to home or self care Social History Tobacco Use Types Packs/Day Years Used Date Smoking Tobacco: Never Assessed Sex and Gender Information Value Date Recorded Sex Assigned at Not on file Legal Sex Male 11:11 PM COMPUTER SECURITY COORDINATOR Gender Identity Not on file Sexual [...] TPMT activity (01/25/2017 10:30 AM CDT) Pathologist [facility] 6-MMP, bld 4.62 3.00 - 6.66 [facility] GENERAL GUIDANCE 8.45 5.04 - 9.57 [facility] Gene name #7 4.46 2.70 - 5.84 [facility] Interpretation,Comp See Footnote [facility] Comment: *Normal* In this whole blood sample, the profile of activity of thiopurine methyltransferase using three different substrates was normal or essentially normal. ADDITIONAL INFORMATION Liquid Chromatography-Tandem Mass Spectrometry (LC-MS/MS) This test was developed and its performance characteristics determined by [facility] in a manner consistent with CLIA requirements. This test has not been cleared or approved by the U.S. Food and Drug Administration. Blood specimen (specimen) 01/25/2017 10:30 AM CDT 01/25/2017 4:41 PM CDT us Eliana Quevedo MD LAB BLOOD ORDERABLE S Final Result [facility] Department of Laboratories [place], [place] [id number] * Interferon Gamma Release Assay TB (01/25/2017 10:30 AM CDT) [facility] IFN-Gamma Release Assay TB Negative [facility] Comment: Interpretive Data Testing performed by [facility], [id number] [place] [id number] Current Interpretive Data was last revised 2014 Blood specimen (specimen) 01/25/2017 10:30 AM CDT 01/25/2017 10:41 AM CDT us Eliana Quevedo MD LAB BLOOD ORDERABLE S Final Result Performing Organization Address [facility] Co de Phone Number [facility] [place] [address] * Hepatitis B surface antibody (01/25/2017 10:30 AM CDT) Pathologist [facility] HBsAb (immune status) Reactive [facility] Comment: Interpretive Data A Negative Result indicates [...] HBsAb (immune status) index 63.9 mIUnits/m L [facility] Blood specimen (specimen) 01/25/2017 10:30 AM CDT 01/25/2017 10:41 AM CDT us Eliana Quevedo MD LAB MICROBIOLOGY - GENERAL ORDERABLES Final Result Performing Organization Address [facility] Co de Phone Number [facility] Department [place] [address] * Hepatitis B surface antigen (01/25/2017 10:30 AM CDT) Pathologist [facility] HepBsAg Nonreactive Nonreactive [facility] Blood specimen (specimen) 01/25/2017 10:30 AM CDT 01/25/2017 10:41 AM CDT us Eliana Quevedo MD LAB MICROBI OLOGY - GENERAL ORDERABLES Edited Result - Final Performing Organization Address [facility]/ZIP Co de Phone Number [facility] [place] [address] * Erythrocyte sedimentation rate (01/25/2017 10:30 AM CDT) Erythrocyte sedimentation rate 8 0 - 12 mm/H [facility] Blood specimen (specimen) 01/25/2017 10:30 AM CDT 01/25/2017 10:41 AM CDT Eliana Quevedo MD LAB BLOOD ORDERABLE S Final Result Performing Organization Address [facility] de Phone Number [facility] [place] [address] * (ABNORMAL) Vitamin D 25 hydroxy (01/25/2017 10:30 AM CDT) Vitamin D 25-OH 28.3(L) 30.0 - 100.0 ng/mL [facility] Blood specimen (specimen) 01/25/2017 10:30 AM CDT 01/25/2017 10:41 AM CDT us Eliana Quevedo MD LAB BLOOD ORDERABLE S Edited Result - Final Performing Organization Address [facility] Co de Phone Number [facility] [place] [address] * Vitamin B12 (01/25/2017 10:30 AM CDT) Vitamin B12 603 210 - 900 pg/mL [facility] Blood specimen (specimen) 01/25/2017 10:30 AM CDT 01/25/2017 10:41 AM CDT us Eliana Quevedo MD LAB BLOOD ORDERABLE S Final Result Performing Organization Address City/[facility]/ZIP Co de Phone Number [facility] [place] [address] * Hepatic function panel (01/25/2017 10:30 AM CDT) [facility] AST 17 10 - 50 Units/L [facility] ALT 23 7 - 55 Units/L [facility] Alk phos 78 40 - 130 Units/L [facility] Bilirubin, total 0.3 0.1 - 1.2 mg/dL [facility] Bilirubin, direct <0.2 0.1 - 0.3 mg/dL [facility] Protein, pl 8.1 6.5 - 8.5 g/dL [facility] Albumin 4.6 3.5 - 5.0 g/dL [facility] Blood specimen (specimen) 01/25/2017 10:30 AM CDT 01/25/2017 10:41 AM CDT Eliana Quevedo MD LAB BLOOD ORDERABLE S Edited Result - Final Performing Organization Address City/[facility]/ZIP Co de Phone Number [facility] [place] [address] * Ferritin (01/25/2017 10:30 AM CDT) [facility] Ferritin 204 30 - 400 ng/mL [facility] Blood specimen (specimen) 01/25/2017 10:30 AM CDT 01/25/2017 10:41 AM CDT Eliana Quevedo MD LAB BLOOD ORDERABLE S Edited [place] [address] * (ABNORMAL) Iron profile (01/25/2017 10:30 AM CDT) [facility] Iron 56 50 - 150 mcg/dL [facility] UIBC 260 112 - 347 mcg/dL [facility] TIBC 316 250 - 400 mcg/dL [facility] Transferrin saturation 18(L) 20 - 50 % [facility] Blood specimen (specimen) 01/25/2017 10:30 AM CDT 01/25/2017 10:41 AM CDT Eliana Quevedo MD LAB BLOOD ORDERABLE S Final Result Performing Organization Address [facility] de Phone Number [facility] Department [place] [address] * CRP, high sensitivity (01/25/2017 10:30 AM CDT) [facility] hsCRP 2.0 0.1 - 3.0 mg/L [facility] Comment: Interpretive Data Values greater than or [...] ORDERABLE S Final Result Performing Organization Address [facility] Co de Phone Number [facility] Department [place] [address] * Differential, auto (01/25/2017 10:30 AM CDT) Pathologist [facility] Neutrophil pct 59.2 % [facility] Imm gran pct 0.1 % [facility] Lymphocyte pct 32.6 % [facility] Monocyte pct 6.9 % [facility] Eosinophil pct 0.7 % [facility] Basophil pct 0.5 % [facility] Neutrophil abs 4.38 1.70 - 6.50 K/cumm [facility] Imm gran abs 0.01 0.00 - 0.10 K/cumm [facility] Lymphocyte abs 2.41 0.80 - 3.30 K/cumm [facility] Monocyte abs 0.51 0.20 - 0.80 K/cumm [facility] Eosinophil abs 0.05 0.00 - 0.50 K/cumm [facility] Basophil abs 0.04 0.00 - 0.10 K/cumm [facility] Blood specimen (specimen) 01/25/2017 10:30 AM CDT 01/25/2017 10:41 AM CDT us Eliana Quevedo MD LAB BLOOD ORDERABLE S Final Result [facility] [place] [address] * CBC with auto differential (01/25/2017 10:30 AM CDT) Pathologist [facility] WBC 7.40 3.80 - 9.90 K/cumm [facility] RBC 4.84 4.30 - 5.80 M/cumm [facility] Hgb 14.4 13.0 - 17.5 g/dL [facility] Hct 43.5 38.9 - 50.3 % [facility] MCV 89.9 81.3 - 96.4 fL [facility] MCH 29.8 27.1 - 33.3 pg [facility] MCHC 33.1 32.3 - 35.7 g/dL [facility] RDW CV 12.2 11.1 - 14.9 % [facility] RDW SD 40.2 35.7 - 48.1 fL [facility] Plt 208 150 - 400 K/cumm [facility] MPV 11.2 9.1 - 12.3 fL [facility] NRBC 0.0 0.0 - 0.2 % [facility] NRBC abs 0.00 0.00 - 0.01 K/cumm [facility] Blood specimen (specimen) 01/25/2017 10:30 AM CDT 01/25/2017 10:41 AM CDT Eliana Quevedo MD LAB BLOOD ORDERABLE S Final Result Performing Organization Address [facility] [place] [address] * Miscellaneous Test Sendout Chemistry (01/25/2017 10:21 AM CDT) Test name Adalimumab Concentration and Anti-Adalimumab Antibody [facility] Result 1 Test Name: Adalimumab Concentration and Anti-Adalimumab Antibody Specimen Type: Serum Result: See separate report scanned into the Clinical Desktop Scanned Laboratory Reports Tab. [facility] Sendout reference lab Testing performed by: [facility], [place] [address]. [facility] Blood specimen (specimen) 01/25/2017 10:21 AM CDT 01/25/2017 11:21 AM CDT Eliana Quevedo MD LAB BLOOD ORDERABLE S Edited Result - Final Performing Organization Address City/[facility] Co de Phone Number [facility] [place] [address] * DISCHARGE LABORATORY CUMULATIVE REPORT (01/25/2017 12:00 [...] on filedocumented in this encounter Care Teams Central Office Repairer Supervisor Relationship Specialty Start Date End Date Trenton Bess MD PCP - General 01/25/17 01/31/17 documented as of this encounter
== END 2024-07-02 13:46 | disposition home or self-care (01) ==
PROVIDERS: Emergency Provider Physician Assistant; PCP Student in an Organized Health Care Education/Training Program
DX: S61.512A Laceration without foreign body of left wrist, initial encounter (principal); W31.2XXA Contact with powered woodworking and forming machines, initial encounter
CPT/HCPCS: 12001; 73110; 99283; J2003